=== PATIENT | female | born 1945 | race Caucasian/White ===

== ENCOUNTER → 2017-04-02 09:41 | Outpatient (CLI) | payer MEDICARE, OTHER, SELFPAY ==
--- NOTE | 2017-04-02 09:46 | HPBD_ITS ---
STUDY: DUAL ENERGY X-RAY ABSORPTIOMETRY / DXA REASON FOR EXAM: Female, 71 years old. Postmenopausal. Loss of height. TECHNIQUE: Bone Mineral Density (BMD) measurements of lumbar spine and bilateral hips were obtained. COMPARISON: None. FINDINGS: Lumbar Spine (L1-L4): g/cm2 (1.280) / T-score (1.0) / Z-score (2.6) Findings are suggestive of normal bone density with a low fracture risk. Increased kyphosis. Left Femur Total: g/cm2 (1.065) / T-score (0.5) / Z-score (1.9) Left Femoral Neck: g/cm2 (0.946) / T-score (-0.7) / Z-score (1.0) Right Femur Total: g/cm2 (1.074) / T-score (0.5) / Z-score (2.0) Right Femoral Neck: g/cm2 (0.911) / T-score (-0.9) / Z-score (0.8) HPBD/Dexa Bone Density Study (HP) IMPRESSION: The patient is considered normal as outlined below according to World Sark[employer] Organization (WHO) criteria with a low fracture risk. Reference Information: The T-score is the number of standard deviations above or below the standard which is normal for young adults at their peak bone mineral density. The World Health Organization (WHO) interprets the T-scores as follows: Above -1 Normal bone density Between -1 and -2.5 Osteopenia Equal to / or below -2.5 Osteoporosis As a practical clinical guideline, osteopenia may be graded as follows: Mild -1 through -1.5 Moderate -1.6 through -2.0 Severe -2.1 through -2.4 The Z-score is the number of standard deviations above or below age-matched controls. A Z-score of less than -1.5 would be considered abnormal. References: 1. NIH Osteoporosis and Related Bone Diseases http://www.osteo.org 2. International Society for Clinical Densitometry http://www.iscd.org 3. National Osteoporosis Foundation http://www.nof.org Electronically Signed: Jj Unger MD at 12:08 EST Tel [phone], Service support ,
--- NOTE | 2017-04-02 09:47 | HPBI_ITS ---
MAMMOGRAPHY - BILATERAL SCREENING REASON FOR EXAM: Female, 71 years old. Routine annual screening examination. PERTINENT HISTORY: Mother with breast cancer. TECHNIQUE: Digital bilateral breast spring (3D mammographic acquisition) in the CC and MLO projections. 2-D mediolateral oblique (MLO) and craniocaudad (CC) views of both breasts were obtained. CAD: Full Field Digital Mammography with Computer Added Detection was performed. COMPARISON: Comparison is made with prior outside examination dated February 14, 2015. FINDINGS: Breast Composition: The breasts are heterogeneously dense, which may obscure small masses. There are no dominant masses or suspicious calcifications. No other significant abnormalities are identified. There has been no significant change since the prior study. HPBI/SCREENING MAMM (CAD), BILAT IMPRESSION: Stable bilateral screening mammogram. Yearly follow-up mammogram recommended. (A) ASSESSMENT CATEGORY: BIRADS Category 1: Negative. A letter regarding these results will be sent to the patient by the facility within 30 days. Approximately 10% of breast cancers are not detected by mammography. A normal mammogram should not delay biopsy of a clinically suspicious abnormality. [id number] Electronically Signed: Jj Unger MD at 10:36 EST Tel [phone], Service support ,
== END ==
PROVIDERS: PCP Internal Medicine; Visit Provider Internal Medicine
DX: Z12.31 Encounter for screening mammogram for malignant neoplasm of breast (principal); Z78.0 Asymptomatic menopausal state
CPT/HCPCS: 77063; 77067; 77080

== ENCOUNTER → 2017-06-18 12:31 | Outpatient (CLI) | payer MEDICARE, OTHER, SELFPAY ==
[2017-06-18 13:28] LABS: AST(SGOT) 16 U/L (15-37); Alanine Aminotransfer ALT/SGPT 28 U/L (13-56); Albumin, Serum 3.8 g/dL (3.2-5.0); Alkaline Phosphatase 75 U/L (45-117); Bilirubin, Direct 0.12 mg/dL (0.00-0.30); Cholesterol 186 mg/dL (200); Globulin 3.9 g/dL (2.2-4.2); High Density Lipoprotein 71 mg/dL; Protein, Total 7.7 g/dL (6.4-8.2); Triglycerides 76 mg/dL; Very Low Density Lipoprotein 15 mg/dL (5-40)
[2017-06-18 13:45] LABS: Free T3 2.7 pg/mL (2.18-3.98); T4 Free Direct 1.19 ng/dL (0.76-1.46); Thyroid Stim Hormone (TSH) 3.12 uIU/mL (0.358-3.74)
== END ==
PROVIDERS: Nurse Practitioner; Family Provider Internal Medicine; PCP Internal Medicine; Visit Provider Internal Medicine Cardiovascular Disease
DX: R94.6 Abnormal results of thyroid function studies (principal); Z79.899 Other long term (current) drug therapy; E78.5 Hyperlipidemia, unspecified
CPT/HCPCS: 36415; 80061; 80076; 84439; 84443; 84481

== ENCOUNTER → 2017-11-03 06:28 | Outpatient (CLI) | payer MEDICARE, OTHER, SELFPAY ==
[2017-11-03 07:50] LABS: Hemoglobin A1c 6.8 % (4.2-6.3)
[2017-11-03 07:59] LABS: Microalbumin,Random Urine 9.9 mg/L (NO RANGE EST.); Microalbumin:Creatinine Ratio 6.1 mg/g CRE (<30 mg/g CRE)
[2017-11-03 08:01] LABS: AST(SGOT) 16 U/L (15-37); Alanine Aminotransfer ALT/SGPT 29 U/L (13-56); Albumin, Serum 3.7 g/dL (3.2-5.0); Alkaline Phosphatase 78 U/L (45-117); Anion Gap 8 (5-15); BUN 21 mg/dL (7-18); BUN/Creat Ratio 23.4 RATIO (10-20); CRP < 2.90 mg/L (0.0-3.0); Calcium,Total 9.2 mg/dL (8.5-10.1); Chloride 103 mmol/L (98-107); Cholesterol 194 mg/dL (200); EST Glomerular Filtration Rate 66 mL/min (>60); Est Glom Filt Rate - Afr Amer 80 mL/min (>60); Globulin 3.8 g/dL (2.2-4.2); Glucose 192 mg/dL (74-106); High Density Lipoprotein 70 mg/dL; Magnesium 2.3 mg/dL (1.6-2.6); Potassium 4.2 mmol/L (3.5-5.1); Protein, Total 7.5 g/dL (6.4-8.2); Sodium Level 140 mmol/L (136-145); Triglycerides 90 mg/dL; Very Low Density Lipoprotein 18 mg/dL (5-40)
[2017-11-03 08:10] LABS: Vitamin D,25 Hydroxy 19.6 ng/mL (29.95-100.01)
== END ==
PROVIDERS: Family Provider Internal Medicine; PCP Internal Medicine; Visit Provider Nurse Practitioner
DX: E11.9 Type 2 diabetes mellitus without complications (principal); I10 Essential (primary) hypertension; R00.2 Palpitations; E55.9 Vitamin D deficiency, unspecified
CPT/HCPCS: 36415; 80053; 80061; 82043; 82306; 82570; 83036; 83735; 86140

== ENCOUNTER → 2018-04-05 14:32 | Outpatient (CLI) | payer MEDICARE, OTHER, SELFPAY ==
[2018-02-23 13:31] VITALS: BMI 25.9
--- NOTE | 2018-04-05 14:37 | BI_ITS ---
MAMMOGRAPHY - BILATERAL SCREENING REASON FOR EXAM: Female, 72 years old. Routine annual screening examination. PERTINENT HISTORY: Mother with breast cancer. TECHNIQUE: Digital bilateral breast spring (3D mammographic acquisition) in the CC and MLO projections. 2-D mediolateral oblique (MLO) and craniocaudad (CC) views of both breasts were obtained. CAD: Full Field Digital Mammography with Computer Added Detection was performed. COMPARISON: Comparison is made with prior study dated April 02, 2017. FINDINGS: Breast Composition: The breasts are extremely dense, which lowers the sensitivity of mammography. There are no dominant masses or suspicious calcifications. No other significant abnormalities are identified. There has been no significant change since the prior study. BI/SCREENING MAMM (CAD), BILAT IMPRESSION: Stable bilateral screening mammogram. Yearly follow-up mammogram recommended. (A) ASSESSMENT CATEGORY: BIRADS Category 1: Negative. A letter regarding these results will be sent to the patient by the facility within 30 days. Approximately 10% of breast cancers are not detected by mammography. A normal mammogram should not delay biopsy of a clinically suspicious abnormality. [id number] Electronically Signed: Jj Unger MD at 8:13 EST , Service support ,
== END ==
PROVIDERS: Family Provider Internal Medicine; PCP Internal Medicine; Visit Provider Internal Medicine
DX: Z12.31 Encounter for screening mammogram for malignant neoplasm of breast (principal)
CPT/HCPCS: 77063; 77067

== ENCOUNTER → 2018-06-03 10:05 | Outpatient (CLI) | payer MEDICARE, OTHER, SELFPAY ==
[2018-05-25 14:24] VITALS: BMI 11.4
[2018-06-03 10:59] LABS: Anion Gap 5 (5-15); BUN 16 mg/dL (7-18); Chloride 104 mmol/L (98-107); Creatinine, Serum 0.89 mg/dL (0.55-1.02); EST Glomerular Filtration Rate 66 mL/min (>60); Est Glom Filt Rate - Afr Amer 80 mL/min (>60); Glucose 206 mg/dL (74-106); Sodium Level 138 mmol/L (136-145)
[2018-06-03 11:01] LABS: Microalbumin,Random Urine 21.2 mg/L (NO RANGE EST.); Microalbumin:Creatinine Ratio 10.9 mg/g CRE (<30 mg/g CRE)
[2018-06-03 11:10] LABS: Hemoglobin A1c 8.5 % (4.2-6.3)
== END ==
PROVIDERS: Family Provider Internal Medicine; PCP Internal Medicine; Referring Provider Internal Medicine; Visit Provider Internal Medicine
DX: E11.9 Type 2 diabetes mellitus without complications (principal); I10 Essential (primary) hypertension
CPT/HCPCS: 36415; 80048; 82043; 82570; 83036

== ENCOUNTER → 2018-12-31 08:03 | Outpatient (CLI) | payer MEDICARE, OTHER, SELFPAY ==
[2018-12-27 13:05] VITALS: BMI 11.4
[2018-12-31 12:32] LABS: Absolute Lymphocyte Count 1.96 X10^3/uL (0.83-4.51); Absolute Neutrophil Count 3.3 X10^3/uL (2.0-7.7); Basophil# 0.03 X10^3/uL; Basophil% 0.5 % (0-1); Eosinophil# 0.05 X10^3/uL; Eosinophils% 0.8 % (0-5); Hematocrit 43.4 % (37-47); Hemoglobin 13.5 g/dL (12.0-15.0); Lymphocyte # 1.96 X10^3/ul (4.0); Mean Corp Hgb Conc 31.1 g/dL (32-36); Mean Corpuscular Hgb 28.1 pg (27.0-32.0); Mean Corpuscular Volume 90.2 fL (81-99); Mean Platelet Vol. 11.7 fl (6.2-12.0); Monocyte# 0.55 X10^3/uL; Monocyte% 9.3 % (0-10); NRBC Flagged by Analyzer 0 % (0-5); Neutrophil # 3.34 X10^3/uL (2.7-7.7); Neutrophil % 56.2 % (47-70); Platelet Count 180 K/mm3 (150-450); RBC Distribution Width CV 13.2 % (11.6-14.6); RBC Distribution Width SD 43.8 fl (35.1-43.9); Red Blood Count 4.81 M/mm3 (4.2-5.4); White Blood Count 5.9 K/mm3 (4.4-11.0)
[2018-12-31 12:35] LABS: ALB/GLOB Ratio 0.9 RATIO (0.9-2.4); AST(SGOT) 20 U/L (15-37); Alanine Aminotransfer ALT/SGPT 38 U/L (13-56); Albumin, Serum 3.6 g/dL (3.2-5.0); Alkaline Phosphatase 92 U/L (45-117); Anion Gap 8 (5-15); BUN 20 mg/dL (7-18); BUN/Creat Ratio 21.8 RATIO (10-20); Calcium,Total 9.3 mg/dL (8.5-10.1); Chloride 105 mmol/L (98-107); Cholesterol 174 mg/dL (200); Creatinine, Serum 0.92 mg/dL (0.55-1.02); EST Glomerular Filtration Rate 64 mL/min (>60); Est Glom Filt Rate - Afr Amer 78 mL/min (>60); Globulin 3.8 g/dL (2.2-4.2); Glucose 110 mg/dL (74-106); High Density Lipoprotein 70 mg/dL; Potassium 3.7 mmol/L (3.5-5.1); Protein, Total 7.4 g/dL (6.4-8.2); Sodium Level 139 mmol/L (136-145); Triglycerides 59 mg/dL; Very Low Density Lipoprotein 12 mg/dL (5-40)
[2018-12-31 12:37] LABS: Vitamin D,25 Hydroxy 10.8 ng/mL (29.95-100.01)
== END ==
PROVIDERS: Family Provider Internal Medicine; PCP Internal Medicine; Visit Provider Internal Medicine
DX: E11.9 Type 2 diabetes mellitus without complications (principal); K21.9 Gastro-esophageal reflux disease without esophagitis; E55.9 Vitamin D deficiency, unspecified
CPT/HCPCS: 36415; 80053; 80061; 82306; 85025

== ENCOUNTER → 2019-01-03 12:53 | Outpatient (CLI) | payer MEDICARE, OTHER, SELFPAY ==
[2018-12-27 13:05] VITALS: BMI 11.4
[2019-01-03 13:41] LABS: Microalbumin,Random Urine < 5.0 mg/L (NO RANGE EST.)
== END ==
PROVIDERS: Family Provider Internal Medicine; PCP Internal Medicine; Referring Provider Internal Medicine; Visit Provider Internal Medicine
DX: E11.9 Type 2 diabetes mellitus without complications (principal)
CPT/HCPCS: 82043; 82570

== ENCOUNTER → 2019-12-14 08:49 | Outpatient (CLI) | payer MEDICARE, OTHER, SELFPAY ==
[2019-12-08 13:53] VITALS: BMI 24.7
[2019-12-14 12:30] LABS: Absolute Lymphocyte Count 2.11 X10^3/uL (0.83-4.51); Absolute Neutrophil Count 2.9 X10^3/uL (2.0-7.7); Basophil# 0.02 X10^3/uL; Basophil% 0.4 % (0-1); Eosinophil# 0.07 X10^3/uL; Eosinophils% 1.2 % (0-5); Hematocrit 42.7 % (37-47); Hemoglobin 13.8 g/dL (12.0-15.0); Lymphocyte # 2.11 X10^3/ul (4.0); Lymphocyte % 37.3 % (19-41); Mean Corp Hgb Conc 32.3 g/dL (32-36); Mean Corpuscular Hgb 29.2 pg (27.0-32.0); Mean Corpuscular Volume 90.5 fL (81-99); Mean Platelet Vol. 11.5 fl (6.2-12.0); Monocyte# 0.51 X10^3/uL; NRBC Flagged by Analyzer 0 % (0-5); Neutrophil # 2.92 X10^3/uL (2.7-7.7); Neutrophil % 51.7 % (47-70); Platelet Count 198 K/mm3 (150-450); RBC Distribution Width CV 12.8 % (11.6-14.6); RBC Distribution Width SD 42.5 fl (35.1-43.9); Red Blood Count 4.72 M/mm3 (4.2-5.4); White Blood Count 5.7 K/mm3 (4.4-11.0)
[2019-12-14 12:48] LABS: Vitamin D,25 Hydroxy 93.4 ng/mL
[2019-12-14 13:05] LABS: ALB/GLOB Ratio 0.9 RATIO (0.9-2.4); AST(SGOT) 14 U/L (15-37); Alanine Aminotransfer ALT/SGPT 25 U/L (13-56); Albumin, Serum 3.6 g/dL (3.2-5.0); Alkaline Phosphatase 90 U/L (45-117); Anion Gap 5 (5-15); BUN 20 mg/dL (7-18); Calcium,Total 9.3 mg/dL (8.5-10.1); Chloride 107 mmol/L (98-107); Cholesterol 189 mg/dL (200); Creatinine, Serum 0.95 mg/dL (0.55-1.02); EST Glomerular Filtration Rate 61 mL/min (>60); Est Glom Filt Rate - Afr Amer 74 mL/min (>60); Globulin 3.9 g/dL (2.2-4.2); Glucose 104 mg/dL (74-106); High Density Lipoprotein 72 mg/dL; Potassium 3.9 mmol/L (3.5-5.1); Protein, Total 7.5 g/dL (6.4-8.2); Sodium Level 138 mmol/L (136-145); Triglycerides 70 mg/dL; Very Low Density Lipoprotein 14 mg/dL (5-40)
[2019-12-14 20:21] LABS: Microalbumin,Random Urine 7.6 mg/L (NO RANGE EST.); Microalbumin:Creatinine Ratio 5.5 mg/g CRE (<30 mg/g CRE)
== END ==
PROVIDERS: PCP Internal Medicine; Referring Provider Internal Medicine; Visit Provider Internal Medicine
DX: E11.9 Type 2 diabetes mellitus without complications (principal); K21.9 Gastro-esophageal reflux disease without esophagitis; E55.9 Vitamin D deficiency, unspecified
CPT/HCPCS: 36415; 80053; 80061; 82043; 82306; 82570; 85025

== ENCOUNTER → 2019-12-19 15:07 | Outpatient (CLI) | payer MEDICARE, OTHER, SELFPAY ==
[2019-12-08 13:53] VITALS: BMI 24.7
--- NOTE | 2019-12-19 15:40 | CT_ITS ---
STUDY: CT ABDOMEN AND PELVIS WITH CONTRAST REASON FOR EXAM: Female, 74 years old. Left lower quadrant pain. Previous diverticulitis status post partial sigmoidectomy. RADIATION DOSAGE (If Supplied By Facility): CTDIvol = ( 11.35 ) mGy, DLP = ( 623.92 ) mGycm TECHNIQUE: Transaxial images were obtained from the dome of the diaphragm to the symphysis pubis without oral contrast. Oral and amp; IV Gastrografin and amp; 100mL Isovue-370 was administered. Sagittal and coronal images were reconstructed. Individualized dose optimization techniques were used for this CT. COMPARISON: None. FINDINGS: The visualized lung bases are unremarkable. The visualized portions of the heart are within normal limits. Normal liver with incidental 3.5 cm cyst of the anterior segment of the right hepatic lobe.. Normal gallbladder and extrahepatic biliary system. Normal spleen. Normal pancreas. Normal bilateral adrenal glands. Normal right kidney. Normal left kidney. Evaluation of the GI tract is limited by absence of oral contrast. Cannot exclude stomach wall thickening. No dilated loops of bowel or evidence for obstruction. Cannot exclude segmental thickening of the kim of the small or large bowel. Cannot exclude enteritis or colitis. Moderate diffuse fecal retention. There has been appendectomy. There has been partial resection of the sigmoid. There is diffuse atherosclerotic calcification of the abdominal aorta with elongation and tortuosity, but without a demonstrated aneurysm. Normal inferior vena cava. Normal retroperitoneum. Normal urinary bladder. There is atrophy of the uterus. Normal abdominal wall. There are diffuse degenerative changes of the visualized lumbar spine. Mild levoconvex scoliosis. CT/Abdomen/Pelvis WITH Contrast IMPRESSION: No definite acute or significant abnormality seen. Electronically Signed: Ramone Cruz MD at 18:00 EST , Service support ,
== END ==
PROVIDERS: PCP Internal Medicine; Referring Provider Internal Medicine; Visit Provider Internal Medicine
DX: K56.699 Other intestinal obstruction unspecified as to partial versus complete obstruction (principal); K57.92 Diverticulitis of intestine, part unspecified, without perforation or abscess without bleeding; R10.32 Left lower quadrant pain
CPT/HCPCS: 74177; Q9967

== ENCOUNTER → 2020-12-03 11:44 | Outpatient (CLI) | payer MEDICARE, OTHER, SELFPAY ==
[2020-12-03 15:14] LABS: Absolute Lymphocyte Count 2.17 X10^3/uL (0.83-4.51); Absolute Neutrophil Count 2.7 X10^3/uL (2.0-7.7); Basophil# 0.02 X10^3/uL; Basophil% 0.4 % (0-1); Eosinophil# 0.09 X10^3/uL; Eosinophils% 1.7 % (0-5); Hematocrit 42.9 % (37-47); Hemoglobin 13.7 g/dL (12.0-15.0); Lymphocyte # 2.17 X10^3/ul (0.83-4.51); Lymphocyte % 39.8 % (19-41); Mean Corp Hgb Conc 31.9 g/dL (32-36); Mean Corpuscular Hgb 29.1 pg (27.0-32.0); Mean Corpuscular Volume 91.3 fL (81-99); Mean Platelet Vol. 11.1 fl (6.2-12.0); Monocyte# 0.43 X10^3/uL; Monocyte% 7.9 % (0-10); NRBC Flagged by Analyzer 0 % (0-5); Neutrophil # 2.72 X10^3/uL (2.7-7.7); Neutrophil % 49.8 % (47-70); Platelet Count 206 K/mm3 (150-450); RBC Distribution Width CV 13.1 % (11.6-14.6); RBC Distribution Width SD 44.2 fl (35.1-43.9); White Blood Count 5.5 K/mm3 (4.4-11.0)
[2020-12-03 15:32] LABS: ALB/GLOB Ratio 0.8 RATIO (0.9-2.4); AST(SGOT) 16 U/L (15-37); Alanine Aminotransfer ALT/SGPT 30 U/L (13-56); Albumin, Serum 3.3 g/dL (3.2-5.0); Alkaline Phosphatase 86 U/L (45-117); Anion Gap 9 (5-15); BUN 18 mg/dL (7-18); Chloride 104 mmol/L (98-107); Cholesterol 202 mg/dL (200); EST Glomerular Filtration Rate 65 mL/min (>60); Est Glom Filt Rate - Afr Amer 79 mL/min (>60); Globulin 4.1 g/dL (2.2-4.2); Glucose 138 mg/dL (74-106); High Density Lipoprotein 72 mg/dL; Potassium 3.9 mmol/L (3.5-5.1); Protein, Total 7.4 g/dL (6.4-8.2); Sodium Level 140 mmol/L (136-145); Triglycerides 117 mg/dL; Very Low Density Lipoprotein 23 mg/dL (5-40)
[2020-12-03 15:34] LABS: Hemoglobin A1c 7.5 % (3.8-5.6)
== END ==
PROVIDERS: PCP Internal Medicine; Referring Provider Internal Medicine; Visit Provider Internal Medicine
DX: E11.9 Type 2 diabetes mellitus without complications (principal); I10 Essential (primary) hypertension; E55.9 Vitamin D deficiency, unspecified
CPT/HCPCS: 36415; 80053; 80061; 82306; 83036; 85025

== ENCOUNTER → 2020-12-04 | Outpatient (CLI) | payer MEDICARE, OTHER, SELFPAY ==
[2020-12-04 15:51] LABS: Microalbumin,Random Urine 8.8 mg/L (NO RANGE EST.); Microalbumin:Creatinine Ratio 6.7 mg/g CRE (<30 mg/g CRE)
== END | disposition home or self-care (01) ==
LOC: LABSPEC 14:23
PROVIDERS: PCP Internal Medicine; Referring Provider Internal Medicine; Visit Provider Internal Medicine
DX: E11.9 Type 2 diabetes mellitus without complications (principal)
CPT/HCPCS: 82043; 82570

== ENCOUNTER 2021-05-22 14:42 | Outpatient (CLI) | payer MEDICARE, OTHER, SELFPAY ==
[2021-05-22 16:56] LABS: AST(SGOT) 16 U/L (15-37); Alanine Aminotransfer ALT/SGPT 39 U/L (13-56); Albumin, Serum 3.7 g/dL (3.2-5.0); Alkaline Phosphatase 105 U/L (45-117); Amylase 49 U/L (25-115); Anion Gap 3 (5-15); BUN 21 mg/dL (7-18); BUN/Creat Ratio 11.2 RATIO (10-20); Calcium,Total 9.3 mg/dL (8.5-10.1); Chloride 104 mmol/L (98-107); Creatinine, Serum 1.87 mg/dL (0.55-1.02); EST Glomerular Filtration Rate 28 mL/min (>60); Est Glom Filt Rate - Afr Amer 34 mL/min (>60); Globulin 3.8 g/dL (2.2-4.2); Glucose 258 mg/dL (74-106); Lipase 148 U/L (73-393); Potassium 4.3 mmol/L (3.5-5.1); Protein, Total 7.5 g/dL (6.4-8.2); Sodium Level 136 mmol/L (136-145)
== END 2021-05-22 23:59 | disposition home or self-care (01) ==
LOC: BIMLAB 14:43
PROVIDERS: PCP Internal Medicine; Referring Provider Internal Medicine; Visit Provider Internal Medicine
DX: R10.9 Unspecified abdominal pain (principal)
CPT/HCPCS: 36415; 80053; 82150; 83690

== ENCOUNTER 2021-05-27 11:14 | Outpatient (CLI) | payer MEDICARE, OTHER, SELFPAY ==
[2021-05-27 11:17] LABS: Red Blood Cells-Urine 0 SEEN /hpf (0-5)
[2021-05-27 13:03] LABS: Anion Gap 9 (5-15); BUN 24 mg/dL (7-18); BUN/Creat Ratio 29.5 RATIO (10-20); Calcium,Total 9.3 mg/dL (8.5-10.1); Chloride 106 mmol/L (98-107); Creatinine, Serum 0.81 mg/dL (0.55-1.02); EST Glomerular Filtration Rate 73 mL/min (>60); Est Glom Filt Rate - Afr Amer 88 mL/min (>60); Glucose 171 mg/dL (74-106); Potassium 3.9 mmol/L (3.5-5.1); Sodium Level 138 mmol/L (136-145)
[2021-05-27 15:20] LABS: Color, Urine Yellow (Yellow); Glucose, Dipstick Normal (Normal); Ketone-Dipstick 50 mg/dl (Negative); Leukocyte Esterase-Dipstick Negative /ul (Negative); Nitrite-Dipstick Negative (Negative); Occult Blood-Urine Negative /ul (Negative); Protein-Dipstick Negative (Negative); Urine Bilirubin Dipstick Negative (Negative); Urine Clarity Clear (Clear); Urine Urobilinogen Normal (Normal)
[2021-05-27 15:47] LABS: Bacteria RARE /hpf (None Seen); Mucous, Urine RARE /hpf (<or=2+); Squamous Epithelial Cells - UA 0-5 SEEN /hpf (5-10); White Blood Cells 0-5 SEEN /hpf (0-5)
== END 2021-05-27 23:59 | disposition home or self-care (01) ==
LOC: BIMLAB 11:16
PROVIDERS: PCP Internal Medicine; Visit Provider Internal Medicine
DX: N17.9 Acute kidney failure, unspecified (principal)
CPT/HCPCS: 36415; 80048; 81001

== ENCOUNTER → 2021-06-26 | Outpatient (CLI) | payer MEDICARE, OTHER, SELFPAY ==
--- NOTE | 2021-06-26 12:54 | CDU_ITS ---
Reason For Study: carotid artery disease Rt. Velocities/BP Lt. Velocities/BP Prox CCA 76.0/10.8 cm/sec. Prox CCA 91.5/14.6 cm/sec. Mid CCA 82.6/17.3 cm/sec. Mid CCA 88.2/17.9 cm/sec. Dist CCA 82.6/20.0 cm/sec. Dist CCA 67.3/14.6 cm/sec. Prox ICA 76.0/14.7 cm/sec. Prox ICA 88.2/24.5 cm/sec. Mid ICA 68.2/14.7 cm/sec. Mid ICA 81.6/20.14 cm/sec. Dist ICA 83.8/25.2 cm/sec. Dist ICA 113.9/27.1 cm/sec. Rt. ICA/CCA = 1.0. Lt. ICA/CCA = 1.3. Prox ECA 79.9/8.2 cm/sec. Prox ECA 92.6/8.0 cm/sec. Rt. Vert. 36.2/9.7 cm/sec. Lt. Vert. 58.1/13.7 cm/sec. Right Extracranial There is intimal thickening but no significant atherosclerotic plaque noted in the right common carotid artery. There is homogeneous, smooth atherosclerotic plaque noted in the right internal carotid artery. There is intimal thickening but no significant atherosclerotic plaque noted in the right external carotid artery. Antegrade flow is noted in the right vertebral artery. There is homogeneous, smooth atherosclerotic plaque noted in the left bulb. Left Extracranial There is intimal thickening but no significant atherosclerotic plaque noted in the left common carotid artery. There is heterogeneous, irregular atherosclerotic plaque noted in the left internal carotid artery. There is intimal thickening but no significant atherosclerotic plaque noted in the left external carotid artery. Antegrade flow is noted in the left vertebral artery. There is heterogeneous, irregular atherosclerotic plaque noted in the left bulb. Procedure Carotid Duplex [id number]. This is a Carotid Duplex examination using B-mode, color flow and specral Doppler. The exam was diagnostic. Exam performed in department. VL/Carotid Duplex Ultrasound Interpretation Summary Smooth plaque at the proximal right internal carotid artery with less than 50% stenosis Less than 50% stenosis right external carotid artery Minimal irregular calcific plaque with shadowing at the proximal left internal carotid artery with less than 50% stenosis Less than 50% stenosis left external carotid artery Irregular calcific plaque noted in the left carotid bulb Patent and antegrade vertebral arteries bilaterally Ordering Physician: Evan Masters Performed By: Tristan Diaz RVT
== END | disposition home or self-care (01) ==
LOC: CVS 12:54
PROVIDERS: PCP Internal Medicine; Referring Provider Nurse Practitioner Family; Visit Provider Nurse Practitioner Family
DX: I77.9 Disorder of arteries and arterioles, unspecified (principal); I79.8 Other disorders of arteries, arterioles and capillaries in diseases classified elsewhere
CPT/HCPCS: 93880

== ENCOUNTER → 2021-09-10 | Outpatient (CLI) | payer MEDICARE, OTHER, SELFPAY ==
--- NOTE | 2021-09-10 15:28 | BI_ITS ---
MAMMOGRAPHY - BILATERAL SCREENING REASON FOR EXAM: Female, 75 years old. Routine annual screening examination. PERTINENT HISTORY: Mother with breast cancer. Remote right excisional breast biopsy. TECHNIQUE: Digital bilateral breast simona (3D mammographic acquisition) in the CC and MLO projections. 2-D mediolateral oblique (MLO) and craniocaudad (CC) views of both breasts were obtained. CAD: Full Field Digital Mammography with Computer Added Detection was performed. COMPARISON: Comparison is made with prior outside examination of 11/03/2019 and 04/02/2017. FINDINGS: Breast Composition: The breasts are extremely dense, which lowers the sensitivity of mammography. There are no dominant masses or suspicious calcifications. No other significant abnormalities are identified. There has been no significant change since the prior study. BI/SCRN MAMM (CAD)W/SIMONA BILAT IMPRESSION: Stable bilateral screening mammogram. Yearly follow-up mammogram recommended. (A) ASSESSMENT CATEGORY: BIRADS Category 1: Negative. A letter regarding these results will be sent to the patient by the facility within 30 days. Approximately 10% of breast cancers are not detected by mammography. A normal mammogram should not delay biopsy of a clinically suspicious abnormality. [id number] Electronically Signed: Jj Unger MD at 13:01 EDT ,
--- NOTE | 2021-09-10 15:30 | BD_ITS ---
STUDY: DUAL ENERGY X-RAY ABSORPTIOMETRY / DXA REASON FOR EXAM: Female, 75 years old. Post menopausal TECHNIQUE: Bone Mineral Density (BMD) measurements of lumbar spine and bilateral hips were obtained. COMPARISON: Comparison is made with prior study of 04/02/2017. FINDINGS: Lumbar Spine (L1-L4): g/cm2 (1.227) / T-score (1.6) / Z-score (4.0) Findings are suggestive of normal bone density with a low fracture risk. Left Femur Total: g/cm2 (0.949) / T-score (0.1) / Z-score (1.8) Left Femoral Neck: g/cm2 (0.701) / T-score (-1.3) / Z-score (0.7) Right Femur Total: g/cm2 (0.966) / T-score (0.2) / Z-score (2.0) Right Femoral Neck: g/cm2 (0.757) / T-score (-0.8) / Z-score (1.2) The T-Scores on the most recent prior examination were: Lumbar Spine (L1-L4): There has been worsening of bone density since the previous examination. Left Femur Total: which represents a worsening of 4.8%. Right Femur Total: which represents a worsening of 3.9%. BD/Dexa Bone Density Study IMPRESSION: The patient is considered osteopenic as outlined below according to World Sarkis Organization (WHO) criteria with a low fracture risk. There has been worsening of bone density since the previous examination. Reference Information: The T-score is the number of standard deviations above or below the standard which is normal for young adults at their peak bone mineral density. The World Health Organization (WHO) interprets the T-scores as follows: Above -1 Normal bone density Between -1 and -2.5 Osteopenia Equal to / or below -2.5 Osteoporosis As a practical clinical guideline, osteopenia may be graded as follows: Mild -1 through -1.5 Moderate -1.6 through -2.0 Severe -2.1 through -2.4 The Z-score is the number of standard deviations above or below age-matched controls. A Z-score of less than -1.5 would be considered abnormal. References: 1. NIH Osteoporosis and Related Bone Diseases www osteo.org 2. International Society for Clinical Densitometry www iscd.org 3. National Osteoporosis Foundation www nof.org Electronically Signed: Jj Unger MD at 10:19 EDT ,
== END | disposition home or self-care (01) ==
LOC: OPBD 15:26
PROVIDERS: PCP Internal Medicine; Referring Provider Internal Medicine; Visit Provider Internal Medicine
DX: Z12.31 Encounter for screening mammogram for malignant neoplasm of breast (principal); M85.80 Other specified disorders of bone density and structure, unspecified site; Z78.0 Asymptomatic menopausal state; Z80.3 Family history of malignant neoplasm of breast
CPT/HCPCS: 77063; 77067; 77080

== ENCOUNTER 2022-01-03 08:13 | Outpatient (CLI) | payer MEDICARE, OTHER, SELFPAY ==
[2022-01-03 12:29] LABS: Absolute Lymphocyte Count 1.94 X10^3/uL (0.83-4.51); Absolute Neutrophil Count 4.1 X10^3/uL (2.0-7.7); Basophil# 0.02 X10^3/uL; Basophil% 0.3 % (0-1); Eosinophil# 0.06 X10^3/uL; Eosinophils% 0.9 % (0-5); Hematocrit 43.2 % (37-47); Lymphocyte # 1.94 X10^3/ul (0.83-4.51); Lymphocyte % 29.1 % (19-41); Mean Corp Hgb Conc 32.4 g/dL (32-36); Mean Corpuscular Hgb 29.4 pg (27.0-32.0); Mean Corpuscular Volume 90.8 fL (81-99); Mean Platelet Vol. 11.3 fl (6.2-12.0); Monocyte# 0.53 X10^3/uL; Monocyte% 7.9 % (0-10); NRBC Flagged by Analyzer 0 % (0-5); Neutrophil # 4.11 X10^3/uL (2.7-7.7); Neutrophil % 61.7 % (47-70); Platelet Count 211 K/mm3 (150-450); RBC Distribution Width CV 13.1 % (11.6-14.6); RBC Distribution Width SD 43.9 fl (35.1-43.9); Red Blood Count 4.76 M/mm3 (4.2-5.4); White Blood Count 6.7 K/mm3 (4.4-11.0)
[2022-01-03 12:52] LABS: Microalbumin:Creatinine Ratio 7.8 mg/g CRE (<30 mg/g CRE)
[2022-01-03 12:53] LABS: AST(SGOT) 16 U/L (15-37); Alanine Aminotransfer ALT/SGPT 34 U/L (13-56); Albumin, Serum 3.7 g/dL (3.2-5.0); Alkaline Phosphatase 92 U/L (45-117); Anion Gap 6 (5-15); BUN 23 mg/dL (7-18); BUN/Creat Ratio 27.4 RATIO (10-20); Calcium,Total 9.2 mg/dL (8.5-10.1); Chloride 103 mmol/L (98-107); Cholesterol 182 mg/dL (200); Creatinine, Serum 0.84 mg/dL (0.55-1.02); EST Glomerular Filtration Rate 70 mL/min (>60); Est Glom Filt Rate - Afr Amer 85 mL/min (>60); Globulin 3.8 g/dL (2.2-4.2); Glucose 127 mg/dL (74-106); High Density Lipoprotein 80 mg/dL; Potassium 3.7 mmol/L (3.5-5.1); Protein, Total 7.5 g/dL (6.4-8.2); Sodium Level 137 mmol/L (136-145); Triglycerides 72 mg/dL; Very Low Density Lipoprotein 14 mg/dL (5-40)
[2022-01-07 13:11] LABS: Hemoglobin A1c 7.3 % (3.8-5.6)
== END 2022-01-03 23:59 | disposition home or self-care (01) ==
LOC: BIMLAB 08:14
PROVIDERS: PCP Internal Medicine; Visit Provider Internal Medicine
DX: I10 Essential (primary) hypertension (principal); E11.69 Type 2 diabetes mellitus with other specified complication
CPT/HCPCS: 36415; 80053; 80061; 82043; 82570; 83036; 85025

== ENCOUNTER → 2022-09-11 | Outpatient (CLI) | payer MEDICARE, OTHER, SELFPAY ==
--- NOTE | 2022-09-11 13:02 | BI_ITS ---
MAMMOGRAPHY - BILATERAL SCREENING REASON FOR EXAM: Female, 76 years old. Routine annual screening examination. PERTINENT HISTORY: Mother with breast cancer. TECHNIQUE: Digital bilateral breast simona (3D mammographic acquisition) in the CC and MLO projections. 2-D mediolateral oblique (MLO) and craniocaudad (CC) views of both breasts were obtained. CAD: Full Field Digital Mammography with Computer Added Detection was performed. COMPARISON: Comparison is made with prior study September 10, 2021 and April 05, 2018. FINDINGS: Breast Composition: The breasts are extremely dense, which lowers the sensitivity of mammography. There are no dominant masses or suspicious calcifications. No other significant abnormalities are identified. There has been no significant change since the prior study. BI/SCRN MAMM (CAD)W/SIMONA BILAT IMPRESSION: Stable bilateral screening mammogram. Yearly follow-up mammogram recommended. (A) ASSESSMENT CATEGORY: BIRADS Category 1: Negative. A letter regarding these results will be sent to the patient by the facility within 30 days. Approximately 10% of breast cancers are not detected by mammography. A normal mammogram should not delay biopsy of a clinically suspicious abnormality. [id number] Electronically Signed: Jj Unger MD at 14:19 EDT ,
== END | disposition home or self-care (01) ==
LOC: OPBI 13:01
PROVIDERS: PCP Internal Medicine; Referring Provider Internal Medicine; Visit Provider Internal Medicine
DX: Z12.31 Encounter for screening mammogram for malignant neoplasm of breast (principal); Z80.3 Family history of malignant neoplasm of breast
CPT/HCPCS: 77063; 77067

== ENCOUNTER → 2022-12-30 | Outpatient (CLI) | payer MEDICARE, OTHER, SELFPAY ==
[2022-12-30 12:42] LABS: Absolute Lymphocyte Count 2.54 X10^3/uL (0.83-4.51); Absolute Neutrophil Count 2.5 X10^3/uL (2.0-7.7); Basophil# 0.03 X10^3/uL; Basophil% 0.5 % (0-1); Eosinophils% 1.8 % (0-5); Hematocrit 41.5 % (37-47); Hemoglobin 13.5 g/dL (12.0-15.0); Lymphocyte # 2.54 X10^3/ul (0.83-4.51); Mean Corp Hgb Conc 32.5 g/dL (32-36); Mean Corpuscular Hgb 28.8 pg (27.0-32.0); Mean Corpuscular Volume 88.7 fL (81-99); Mean Platelet Vol. 10.8 fl (6.2-12.0); Monocyte# 0.44 X10^3/uL; Monocyte% 7.8 % (0-10); NRBC Flagged by Analyzer 0 % (0-5); Neutrophil # 2.52 X10^3/uL (2.7-7.7); Neutrophil % 44.7 % (47-70); Platelet Count 213 K/mm3 (150-450); RBC Distribution Width CV 13.4 % (11.6-14.6); RBC Distribution Width SD 43.5 fl (35.1-43.9); Red Blood Count 4.68 M/mm3 (4.2-5.4); White Blood Count 5.6 K/mm3 (4.4-11.0)
[2022-12-30 13:02] LABS: AST(SGOT) 15 U/L (15-37); Alanine Aminotransfer ALT/SGPT 30 U/L (13-56); Albumin, Serum 3.5 g/dL (3.2-5.0); Alkaline Phosphatase 71 U/L (45-117); Anion Gap 8 (5-15); BUN 18 mg/dL (7-18); BUN/Creat Ratio 20.8 RATIO (10-20); Chloride 108 mmol/L (98-107); Cholesterol 238 mg/dL (200); Creatinine, Serum 0.86 mg/dL (0.55-1.02); EST Glomerular Filtration Rate 68 mL/min (>60); Est Glom Filt Rate - Afr Amer 82 mL/min (>60); Globulin 3.6 g/dL (2.2-4.2); Glucose 137 mg/dL (74-106); High Density Lipoprotein 78 mg/dL; Potassium 3.9 mmol/L (3.5-5.1); Protein, Total 7.1 g/dL (6.4-8.2); Sodium Level 139 mmol/L (136-145); Triglycerides 115 mg/dL; Very Low Density Lipoprotein 23 mg/dL (5-40)
[2022-12-30 13:35] LABS: Hemoglobin A1c 6.9 % (3.8-5.6)
== END | disposition home or self-care (01) ==
LOC: BIMLAB 11:05
PROVIDERS: PCP Internal Medicine; Visit Provider Internal Medicine Endocrinology, Diabetes & Metabolism
DX: E11.65 Type 2 diabetes mellitus with hyperglycemia (principal); E78.5 Hyperlipidemia, unspecified
CPT/HCPCS: 36415; 80053; 80061; 83036; 84443; 85025

== ENCOUNTER → 2023-02-12 | Outpatient (CLI) | payer MEDICARE, OTHER, SELFPAY ==
--- OUTSIDE RECORDS SUMMARY | 2023-02-12 12:54 | XMS RPT_ITS | CCD ---
Author Name Unknown Address [address] [place] [address] Organization [facility] Results Test Name Value Interpretation Reference Range Facil ity Summary Purpose Family History No Family History Records Found Advance Directives No Advanced Directives Records Found Additional Source Comments INFORMATION SOURCE (unrecogn ized section and content) FOR RECORDS PERTAINING TO PATIENTS WHO ARE OR HAVE BEEN ENROLLED IN A CHEMICAL DEPENDENCY/SUBSTANCEABUSE PROGRAM, SOME INFORMATION MAY BE OMITTED. This clinical summary was aggregated from multiple sources. Caution should be exercised in using it in the provision of clinical care. This summary normalizes information from multiple sources, and as a consequence, information in this document may materially change the coding, format and clinical context of patient data. In addition, data may be omitted in some cases. CLINICAL DECISIONS SHOULD BE BASED ON THE PRIMARY CLINICAL RECORDS. [employer] provides no warranty or guarantee of the accuracy or completeness of information in this document.
[2023-02-12 13:59] LABS: Thyroid Stim Hormone (TSH) 1.03 uIU/mL (0.358-3.74)
[2023-02-14 04:07] LABS: Thyroid Peroxidase AB < 9 IU/mL (0-34)
== END | disposition home or self-care (01) ==
LOC: LAB 12:39
PROVIDERS: PCP Internal Medicine; Referring Provider Internal Medicine Endocrinology, Diabetes & Metabolism; Visit Provider Internal Medicine Endocrinology, Diabetes & Metabolism
DX: E11.9 Type 2 diabetes mellitus without complications (principal); I10 Essential (primary) hypertension; E78.5 Hyperlipidemia, unspecified
CPT/HCPCS: 36415; 84443; 86376

== ENCOUNTER → 2023-05-27 | Outpatient (CLI) | payer MEDICARE, OTHER, SELFPAY ==
--- NOTE | 2023-05-27 17:20 | RAD_ITS ---
INDICATION: Left Hip Pain EXAMINATION/TECHNIQUE: X-RAY - LEFT XR Hip Unilateral with Pelvis when performed; 2-3 Views 3 VIEWS COMPARISON: CT abdomen and pelvis December 19, 2019. Also compared with lumbar spine x-rays from May 27, 2023. FINDINGS: SOFT TISSUES: Chronic left ischial and bilateral greater trochanteric enthesopathic changes. Colonic anastomotic sutures seen in the pelvis. 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 There are at least mild degenerative changes bilateral hips. No fracture or focal osseous lesion. Moderate degenerative endplate changes lower lumbar spine. No sclerotic or destructive changes observed. RAD/HIP, UNI W/ Pelvis 2-3 Views IMPRESSION: 1. Bilateral coxa profunda increased acetabular coverage. 2. Mild degenerative changes bilateral hips. 3. Chronic enthesopathic and degenerative changes as above. Electronically Signed: Lane Magallon DO at 23:18 EDT ,
--- NOTE | 2023-05-27 17:20 | RAD_ITS ---
INDICATION: Low Back Pain EXAMINATION/TECHNIQUE: X-RAY - XR Spine Lumbar Min 4 Views COMPARISON: CT abdomen and pelvis from December 19, 2019. FINDINGS: VERTEBRAE: Preserved vertebral body height. No fracture. Moderate lateral curvature mid lumbar spine, convex left, centered at L3. Normal lordotic curvature. Significant degenerative endplate changes at L4-5 and at least mild degenerative changes L2-3 and L5-S1. Moderate bilateral facet arthropathy throughout the lumbar spine. No pars defect. DISCS: Multilevel intervertebral disc height loss most severe at L4-5 and L5-S1. Sacroiliac joints are normal. INCLUDED ABDOMEN: Moderate abdominal aortic intimal calcifications. Anastomotic bowel sutures seen in the pelvis. RAD/L/S Spine Min 4 Views IMPRESSION: 1. Multilevel degenerative disc and endplate changes most notably at L4-5 and L5-S1. 2. Moderate lateral curvature thoracic spine. Electronically Signed: Lane Magallon DO at 22:48 EDT ,
--- NOTE | 2023-05-27 17:20 | RAD_ITS ---
INDICATION: Left Mckeon Pain EXAMINATION/TECHNIQUE: X-RAY - LEFT XR Tibia/Fibula 2 Views 4 VIEWS COMPARISON: No relevant prior comparison studies available. FINDINGS: SOFT TISSUES: No soft tissue swelling or gas. No radiopaque foreign body. BONES/JOINTS: No acute fracture or malalignment. Preservation of the joint space and no degenerative bony proliferative changes. No sclerotic or destructive changes observed. RAD/Tibia & Fibula 2 Views IMPRESSION: Negative. Electronically Signed: Lane Magallon DO at 23:09 EDT ,
== END | disposition home or self-care (01) ==
LOC: RAD 17:04
PROVIDERS: PCP Internal Medicine; Referring Provider Internal Medicine; Visit Provider Internal Medicine
DX: M25.552 Pain in left hip (principal); M79.662 Pain in left lower leg; M54.50 Low back pain, unspecified
CPT/HCPCS: 72110; 73502; 73590

== ENCOUNTER 2023-06-25 14:00 | Outpatient (RCR) | payer MEDICARE, OTHER, SELFPAY ==
--- NOTE | 2023-06-05 14:05 | HP.PTEVAL_ITS ---
Patient's Visit Information Visit Information Visit Information: SHEYLA RAMIREZ is a 77 year old F referred to Physical Therapy by Dr. Naren Thorne MD with a diagnosis of LBP. Date of Evaluation: 06/05/23 Physical Therapist: Souleymane Stallings, PT, ATC Visit Plan Frequency: 2-3x /Week Duration: 4-6 Weeks Plan: Pt has GERD, be careful with supine activity. Core strengthening, LE stretching and strengthening, bike, and HEP Subjective Subjective: Pt reports she has had LBP for many years. Pt reports she has had recent xrays which revealed degenerative changes in the LB region. Pt notes she also has reflux problems which has caused her to sleep in a recliner. Pt reports she has had intermittent LE radiculopathy in the past, but none right now. Pt r eports prolonged sitting causes her increased pain. Pt reports prolonged standing and ambulating also causes her increased pain. Pt reports she has good sensation in her feet. Pt reports she cleans her house in sections at a time to avoid LBP. Pt also notes she only lifts light objects secondary to the fear of LBP. Pt reports lumbar spine extensions helps to decrease her pain. 1/10 pain while sitting here at rest, 6/10 pain at worst. Pt reports sleep difficulty at this time secondary to pain. Pain LBP: Pain Intensity (Out of 10): 1 Pain Intensity Range: 6 Objective Objective: Neuro: B LE sensation is WNL to light touch. B patellar reflex= 2/3. MMT: B LE's are grossly 4-/5 throughout ROM: L/S flex and ext are moderately limited, B SB is WNL Repeated movements: RFIS 10x2 NE; TERRI 10x3 NE. Unable to assess supine tests secondary to GERD Special tests: pos 90/90 test (45 degree lag) Balance/Special Test Scores Oswestry Low Back Score: 9 Goals Goal 1:: Decrease LBP x 50% to aid with sleep Goal Time Frame: 4-6 Weeks Goal 2:: Increase L/S ext and flex ROM x 1 grade to aid with IADL's Goal Time Frame: 4-6 Weeks Goal 3:: Increase B LE strength x 1 grade to aid with IADL's Goal Time Frame: 4-6 Weeks Goal 4:: I with HEP Goal Time Frame: 4-6 Weeks Rehabilitation Potential Physical Therapy Diagnosis: Pt has LBP, limited L/S ROM, and intermittent L LE radiculopathy secondary to degenerative changes in the L/S Rehabilitation Potential: Good Anticipated Interventions Patient/Client Instruction: Educate patient on: Condition and Plan of Care For the Purpose of:: To improve self management Therapeutic Exercise to Include: Strength training, Flexibilty training, Active ROM and Dynamic Lumbar Stabilization For the Purpose of:: To decrease pain, To increase ROM and To improve muscle performance and motor function Text: Thank you for the opportunity to evaluate your patient. For Medicare and Medicare HMO plans, please review the plan of care and approve it. It will need to be FAXED BACK to us at [phone] for Medicare purposes. For Medicare only, by signing this I certify the plan of care. Please let me know if there are questions or concerns regarding this plan of care. Physician Signature: Date:
== END 2023-06-25 19:00 | disposition home or self-care (01) ==
LOC: PT 14:00
PROVIDERS: PCP Internal Medicine; Referring Provider Internal Medicine; Visit Provider Internal Medicine
DX: M54.50 Low back pain, unspecified (principal); M25.552 Pain in left hip
CPT/HCPCS: 97110; 97161

== ENCOUNTER → 2023-08-19 | Outpatient (CLI) | payer MEDICARE, OTHER, SELFPAY ==
--- NOTE | 2023-08-19 06:38 | ECHOD_ITS ---
Version 2 Reason For Study: PRE- OPERATIVE Procedure This was a 2D Doppler, Color Flow transthoracic echocardiogram. Exam performed in department. Left Ventricle Normal LV size. Left ventricular systolic function is normal. The left ventricular ejection fraction is 65 %. Stage 1 diastolic dysfunction. No regional wall motion abnormalities noted. Right Ventricle Normal RV size. Normal systolic function. Atria Normal left atrium. Normal right atrium. Mitral Valve There is mild mitral annular calcification. Trivial eccentric mitral valve insufficiency. Tricuspid Valve Normal tricuspid valve. Mild (1+) tricuspid valve insufficiency. Pulmonary artery systolic pressure is 30 mmHg. Aortic Valve Trisinus/trileaflet aortic valve. Pulmonic Valve Normal pulmonic valve. Great Vessels Normal aortic root. The pulmonary artery is normal size. Normal inferior vena cava. Pericardium/Pleural No pericardial effusion. MMode/2D Measurements & Calculations LVIDd: 3.3 cm IVSd: 1.1 cm LVOT diam: 1.9 cm LVIDs: 2.1 cm LVPWd: 0.95 cm LVOT area: 2.8 cm2 RVDd: 3.1 cm FS: 35.3 % Ao root diam: 2.9 cm LAV(MOD-bp): 20.8 ml LVAd ap4: 17.1 cm2 LAV(MOD-bp) Indexed: 11.6 ml/m2 LVLd ap4: 6.8 cm LAV(MOD-sp2): 28.5 ml EDV(MOD-sp4): 34.5 ml LAV(MOD-sp4): 14.1 ml EDV(sp4-el): 36.3 ml LVAs ap4: 8.8 cm2 LVLs ap4: 5.7 cm ESV(MOD-sp4): 11.8 ml ESV(sp4-el): 11.3 ml EF(MOD-sp4): 65.7 % EF(sp4-el): 68.8 % LVAd ap2: 16.6 cm2 SV(MOD-sp4): 22.7 ml SV(MOD-sp2): 22.3 ml LVLd ap2: 6.9 cm EDV(MOD-sp2): 32.6 ml EDV(sp2-el): 33.8 ml LVAs ap2: 7.7 cm2 LVLs ap2: 5.3 cm ESV(MOD-sp2): 10.2 ml ESV(sp2-el): 9.6 ml EF(MOD-sp2): 68.6 % SV(sp4-el): 25.0 ml LA dimension(2D): 3.4 cm LA A4 area: 8.9 cm2 RA A4 area: 7.9 cm2 TAPSE: 1.7 cm Time Measurements MV dec time: 0.32 sec Doppler Measurements & Calculations MV E max nick: 61.4 cm/sec Lat Peak E' Nick: 9.5 cm/sec Med Peak E' Nick: 6.8 cm/sec MV A max nick: 97.4 cm/sec E/E' lat: 6.5 E/E' med: 9.0 MV E/A: 0.63 Ao V2 max: 147.1 cm/sec LV V1 max: 116.4 cm/sec MV dec slope: 190.2 cm/sec2 Ao max P.6 mmHg LV V1 max P.4 mmHg Ao V2 mean: 101.2 cm/sec LV V1 mean P.0 mmHg Ao mean P.7 mmHg LV V1 mean: 81.5 cm/sec Ao V2 VTI: 35.2 cm LV V1 VTI: 25.6 cm AV (velocity ratio): 0.73 JAS(I,D): 2.0 cm2 JAS(V,D): 2.2 cm2 SV(LVOT): 70.5 ml PA V2 max: 71.8 cm/sec TR max nick: 251.3 cm/sec PA max PG (full): 0.21 mmHg TR max P.3 mmHg ECHO/Echo Complete Interpretation Summary Normal LV size. Left ventricular systolic function is normal. The left ventricular ejection fraction is 65 %. There is mild mitral annular calcification. Stage 1 diastolic dysfunction. Ordering Physician: Deanna Fregoso Referring Physician: Naren Thorne Performed By: Jaye Paniagua RDCS
--- NOTE | 2023-08-19 06:38 | CDU_ITS ---
Reason For Study: Carotid artery disease Rt. Velocities/BP Lt. Velocities/BP Prox CCA 72.1/12.6 cm/sec. Prox CCA 113.3/21.2 cm/sec. Mid CCA 88.1/17.3 cm/sec. Mid CCA 87.6/16.3 cm/sec. Dist CCA 90/15.4 cm/sec. Dist CCA 88.8/16.3 cm/sec. Prox ICA 71.8/15.7 cm/sec. Prox ICA 69.6/21 cm/sec. Mid ICA 107.2/33.5 cm/sec. Mid ICA 109.7/29.8 cm/sec. Dist ICA 149.9/35.8 cm/sec. Dist ICA 115.6/29.8 cm/sec. Rt. ICA/CCA = 1.70. Lt. ICA/CCA = 1.32. Prox ECA 116.8/10.2 cm/sec. Prox ECA 88.8/6.5 cm/sec. Rt. Vert. 39/9.7 cm/sec. Lt. Vert. 47.4/12.5 cm/sec. Right Extracranial There is intimal thickening but no significant atherosclerotic plaque noted in the right common carotid artery. There is homogeneous, smooth atherosclerotic plaque noted in the right internal carotid artery. The right internal carotid artery distal is tortuous. There is intimal thickening but no significant atherosclerotic plaque noted in the right external carotid artery. Antegrade flow is noted in the right vertebral artery. Left Extracranial There is intimal thickening but no significant atherosclerotic plaque noted in the left common carotid artery. There is heterogeneous, irregular atherosclerotic plaque noted in the left internal carotid artery. There is intimal thickening but no significant atherosclerotic plaque noted in the left external carotid artery. Antegrade flow is noted in the left vertebral artery. Procedure Carotid Duplex 60195. This is a Carotid Duplex examination using B-mode, color flow and specral Doppler. Exam performed in department. VL/Carotid Duplex Ultrasound Interpretation Summary Moderate (50-69%) stenosis right extracranial internal carotid. Mild (<50%) stenosis left extracranial internal carotid. Patent and antegrade vertebrals bilaterally. Ordering Physician: Deanna Fregoso Referring Physician: Naren Thorne Performed By: Marlin Ann RVT
--- NOTE | 2023-08-19 12:21 | STRESSREP ---
Stress Test Report Pharmacologic myocardial perfusion stress test. 77-year-old lady with a history for preop evaluation Resting EKG demonstrates sinus rhythm with a rate of 68 bpm. Resting blood pressure is 122/70 mmHg. 0.4 mg of regadenoson was infused per usual protocol followed by rapid intravenous saline flush injection. Continuous EKG monitoring was performed. The maximum heart rate was 88 bpm which was 61% of max impacted heart rate the maximum workload was 1 metabolic equivalent. At rest there were no ST or T wave changes noted to suggest ischemia and at peak infusion nonspecific ST changes were noted which did not meet the criteria for ischemia. No clinical angina is noted. The final blood pressure was 116/70 mmHg. Myocardial perfusion protocol. 11 point mCi of technetium 99m sestamibi was injected at rest. 0.4 mg of regadenoson was infused per usual protocol. At peak infusion 34.7 mCi of technetium 99m sestamibi was injected stress images were obtained stress and rest images were reconstructed and compared in the short axis vertical long and horizontal long axis. Gated images were also obtained. Perfusion SPECT analysis: Review of the stress images demonstrate normal uptake of tracer noted in all areas of the myocardium. The resting images similar demonstrated normal uptake of tracer noted in all areas of the myocardium. No areas of reversibility are noted to suggest ischemia and no previous infarct is noted. Gated SPECT analysis: The gated ejection fraction is over 60%. Conclusion: Normal pharmacologic myocardial perfusion stress test. Preserved ejection fraction.
== END | disposition home or self-care (01) ==
LOC: CVS 06:35
PROVIDERS: PCP Internal Medicine; Referring Provider Internal Medicine Cardiovascular Disease; Visit Provider Internal Medicine Cardiovascular Disease
DX: Z01.810 Encounter for preprocedural cardiovascular examination (principal); K44.9 Diaphragmatic hernia without obstruction or gangrene; I10 Essential (primary) hypertension; I77.9 Disorder of arteries and arterioles, unspecified; R42 Dizziness and giddiness; R06.09 Other forms of dyspnea
CPT/HCPCS: 78452; 93017; 93306; 93880; A9500; A4216; J2785

== ENCOUNTER → 2023-10-05 | Outpatient (CLI) | payer MEDICARE, OTHER, SELFPAY ==
--- NOTE | 2023-10-05 15:30 | RAD_ITS ---
STUDY: X-RAY CHEST REASON FOR EXAM: Female, 77 years old. s/p aspiration pneumonia, lump left neck TECHNIQUE: PA and lateral views of the chest. COMPARISON: None. FINDINGS: The lungs are clear and expanded. There is no demonstrated pleural abnormality. Normal size heart. Normal mediastinum and ortega. Normal visualized pulmonary arteries. Normal visualized aortic arch and descending thoracic aorta. There is a dextroscoliosis of the thoracic spine. Normal visualized ribs, clavicles, and shoulders. There is no demonstrated abnormality of the visualized soft tissue structures of the upper abdomen. RAD/Chest PA and Lateral IMPRESSION: No active disease. Electronically Signed: Amador Arias MD at 9:16 EDT ,
--- NOTE | 2023-10-05 15:30 | RAD_ITS ---
STUDY: X-RAY - THORACIC SPINE REASON FOR EXAM: Female, 77 years old. Back pain TECHNIQUE: 3 view(s) of the thoracic spine were obtained. COMPARISON: None. FINDINGS: Normal kyphosis of the thoracic spine. Mild dextroscoliosis centered at T10. Mild loss of height and wedging deformity of the T8 vertebral body consistent with a mild compression fracture. This may be acute or chronic and clinical correlation and MRI may be useful. Normal disc space heights. The soft tissue structures are unremarkable. RAD/Thoracic Spine 2 Views IMPRESSION: Mild compression fracture of T8 which may be acute or chronic and clinical correlation and MRI may be useful. Electronically Signed: Amador Arias MD at 9:18 EDT ,
== END | disposition home or self-care (01) ==
LOC: RAD 15:24
PROVIDERS: PCP Internal Medicine; Referring Provider Internal Medicine Endocrinology, Diabetes & Metabolism; Visit Provider Internal Medicine Endocrinology, Diabetes & Metabolism
DX: M54.9 Dorsalgia, unspecified (principal); R05.9 Cough, unspecified
CPT/HCPCS: 71046; 72070

== ENCOUNTER → 2023-10-13 | Outpatient (CLI) | payer MEDICARE, OTHER, SELFPAY ==
--- NOTE | 2023-10-13 12:13 | BI_ITS ---
MAMMOGRAPHY - BILATERAL SCREENING REASON FOR EXAM: Female, 77 years old. Routine annual screening examination. PERTINENT HISTORY: Mother with breast cancer. Remote right excisional breast biopsy. TECHNIQUE: Digital bilateral breast simona (3D mammographic acquisition) in the CC and MLO projections. 2-D mediolateral oblique (MLO) and craniocaudad (CC) views of both breasts were obtained. CAD: Full Field Digital Mammography with Computer Added Detection was performed. COMPARISON: Comparison is made with prior study of September 11, 2022 and September 10, 2021. FINDINGS: Breast Composition: The breasts are extremely dense, which lowers the sensitivity of mammography. There are no dominant masses or suspicious calcifications. No other significant abnormalities are identified. There has been no significant change since the prior study. BI/SCRN MAMM (CAD)W/SIMONA BILAT IMPRESSION: Stable bilateral screening mammogram. Yearly follow-up mammogram recommended. (A) ASSESSMENT CATEGORY: BIRADS Category 1: Negative. A letter regarding these results will be sent to the patient by the facility within 30 days. Approximately 10% of breast cancers are not detected by mammography. A normal mammogram should not delay biopsy of a clinically suspicious abnormality. [id number] Electronically Signed: Jj Unger MD at 13:29 EDT ,
--- NOTE | 2023-10-13 12:19 | BD_ITS ---
STUDY: DUAL ENERGY X-RAY ABSORPTIOMETRY / DXA REASON FOR EXAM: Female, 77 years old. Post menopausal TECHNIQUE: Bone Mineral Density (BMD) measurements of lumbar spine and bilateral hips were obtained. COMPARISON: Comparison is made with prior study dated September 10, 2021. FINDINGS: Lumbar Spine (L1-L4): g/cm2 (1.087) / T-score (0.6) / Z-score (3.1) Findings are suggestive of normal bone density with a low fracture risk. Left Femur Total: g/cm2 (0.939) / T-score (0.0) / Z-score (1.9) Left Femoral Neck: g/cm2 (0.700) / T-score (-1.3) / Z-score (0.8) Right Femur Total: g/cm2 (0.931) / T-score (-0.1) / Z-score (1.8) Right Femoral Neck: g/cm2 (0.836) / T-score (-0.1) / Z-score (2.0) The T-Scores on the most recent prior examination were: Lumbar Spine (L1-L4): There has been worsening of bone density since the previous examination. Left Femur Total: which represents a worsening of 1.1%. Right Femur Total: which represents a worsening of 3.7%. BD/Dexa Bone Density Study IMPRESSION: The patient is considered osteopenic as outlined below according to World [employer] Organization (WHO) criteria with a low fracture risk. There has been worsening of bone density since the previous examination. Reference Information: The T-score is the number of standard deviations above or below the standard which is normal for young adults at their peak bone mineral density. The World Health Organization (WHO) interprets the T-scores as follows: Above -1 Normal bone density Between -1 and -2.5 Osteopenia Equal to / or below -2.5 Osteoporosis As a practical clinical guideline, osteopenia may be graded as follows: Mild -1 through -1.5 Moderate -1.6 through -2.0 Severe -2.1 through -2.4 The Z-score is the number of standard deviations above or below age-matched controls. A Z-score of less than -1.5 would be considered abnormal. References: 1. NIH Osteoporosis and Related Bone Diseases www osteo.org 2. International Society for Clinical Densitometry www iscd.org 3. National Osteoporosis Foundation www nof.org Electronically Signed: Jj Unger MD at 10:07 EDT ,
== END | disposition home or self-care (01) ==
LOC: OPBD 12:12
PROVIDERS: PCP Internal Medicine; Referring Provider Internal Medicine; Visit Provider Internal Medicine
DX: Z12.31 Encounter for screening mammogram for malignant neoplasm of breast (principal); Z78.0 Asymptomatic menopausal state; Z80.3 Family history of malignant neoplasm of breast
CPT/HCPCS: 77063; 77067; 77080

== ENCOUNTER → 2023-10-22 | Outpatient (CLI) | payer MEDICARE, OTHER, SELFPAY ==
--- NOTE | 2023-10-22 15:02 | US_ITS ---
STUDY: SUPERFICIAL ULTRASOUND - SMALL NODULE OVERLYING THE LEFT STERNOCLEIDOMASTOID MASTOID MUSCLE. REASON FOR EXAM: Female, 77 years old. Small nodule over left SCM muscle TECHNIQUE: A superficial ultrasound was performed with real-time and static alves-scale imaging. COMPARISON: None. FINDINGS: The left cervical region was examined with ultrasound. There are 2 adjacent benign-appearing lymph nodes. The larger lymph node measures 1 cm x 0.7 cm x 0.5 cm. US/Head/Neck Soft Tissue IMPRESSION: There are 2 small adjacent benign-appearing lymph nodes corresponding to the palpable abnormality. Electronically Signed: Jj Unger MD at 11:56 EDT ,
== END | disposition home or self-care (01) ==
LOC: US 14:56
PROVIDERS: PCP Internal Medicine; Referring Provider Internal Medicine Endocrinology, Diabetes & Metabolism; Visit Provider Internal Medicine Endocrinology, Diabetes & Metabolism
DX: R22.1 Localized swelling, mass and lump, neck (principal)
CPT/HCPCS: 76536

== ENCOUNTER → 2023-11-03 | Outpatient (CLI) | payer MEDICARE, OTHER, SELFPAY ==
--- NOTE | 2023-11-03 17:47 | CT_ITS ---
INDICATION: pain EXAMINATION: CT THORACIC SPINE - CT Spine Thoracic W/O Contrast Injection TECHNIQUE: Helically acquired images were obtained of the thoracic spine. 2D reformats were reviewed. A radiation dose optimization technique was used for this scan. The protocol utilizes one or more of the following dose reduction techniques: automated exposure control, adjustment of mA and/or kV according to patient size,and/or use of iterative reconstruction technique. IV Contrast dosage and agent: None. RADIATION DOSAGE (If Supplied By Facility): CTDIvol = ( 18.42 ) mGy, DLP = ( 691.71 ) mGycm COMPARISON: CT of the abdomen and pelvis dated December 19, [address] of the neck dated August 21, 2010 FINDINGS: VERTEBRAE: There is a anterior/mid T8 vertebral body deformity with approximately 15% height loss that appears chronic. There is multilevel endplate spondylosis and facet hypertrophy. No discrete lytic or blastic abnormality observed. VERTEBRAL ALIGNMENT: Unremarkable. There is preservation of the normal thoracic kyphosis. DISCS: There is multilevel degenerative disc disease. There is no critical stenosis. VISUALIZED THORAX: Visualized thoracic aorta is nondilated. There are vascular calcifications. Lung cabrera are clear. There is a 2.1 x 1.3 cm round partially solid appearing nodule with thin the isthmus of the thyroid gland right of midline. CT/Spine Thoracic without Contras IMPRESSION: Multilevel degenerative changes. T8 compression deformity, may be secondary to remote injury. Atherosclerosis. 2.1 x 1.3 cm thyroid nodule, recommend nonemergent thyroid ultrasound for further characterization. Electronically Signed: Sommre Holliday MD at 9:04 EDT ,
== END | disposition home or self-care (01) ==
LOC: CT 17:46
PROVIDERS: PCP Internal Medicine; Referring Provider Physician Assistant; Visit Provider Physician Assistant
DX: M54.6 Pain in thoracic spine (principal)
CPT/HCPCS: 72128

== ENCOUNTER → 2023-11-24 | Outpatient (CLI) | payer MEDICARE, OTHER, SELFPAY ==
--- NOTE | 2023-11-24 14:42 | US_ITS ---
EXAM: US SOFT TISSUES HEAD AND NECK, THYROID CLINICAL INDICATION: Abnormal CT. Thyroid Nodule TECHNIQUE: Mallory scale and color doppler imaging was performed of the thyroid gland. COMPARISON: No relevant prior studies available. FINDINGS: LEFT THYROID LOBE: Left thyroid lobe measures 3.9 x 1.3 x 1.7 cm. There are several colloid cysts measuring less than 5 mm in diameter. Echogenicity is otherwise unremarkable. RIGHT THYROID LOBE: Purely cystic 7 mm lesion noted within the upper pole. Additional 2 and 3 mm colloid cyst noted throughout the right thyroid lobe. Right thyroid lobe measures 4.9 x 1.6 x 1.8 cm. A dominant 2 cm solid and cystic nodule arises from the inferior pole of the right thyroid gland. This nodule is mixed cystic and solid, hyperechoic or isoechoic, [id number], smoothly marginated and contains no echogenic foci. TI-RADS points: 2. TI-RADS category: TR2. This nodule is not suspicious and no FNA or follow-up is necessary. ISTHMUS: Isthmus measures 5 mm in AP dimension. No thyroid nodules are present. US/Thyroid IMPRESSION: Bilateral colloid cysts. Dominant 2 cm right thyroid nodule with TR score of 2. No specific follow-up indicated. Electronically Signed: Luis Fernando Romero MD at 16:20 EDT ,
== END | disposition home or self-care (01) ==
PROVIDERS: PCP Internal Medicine; Referring Provider Internal Medicine; Visit Provider Internal Medicine
DX: E04.1 Nontoxic single thyroid nodule (principal)
CPT/HCPCS: 76536

== ENCOUNTER → 2023-12-01 | Outpatient (CLI) | payer MEDICARE, OTHER, SELFPAY ==
[2023-12-01 12:53] LABS: AST(SGOT) 19 U/L (15-37); Alanine Aminotransfer ALT/SGPT 40 U/L (13-56); Albumin, Serum 3.6 g/dL (3.2-5.0); Alkaline Phosphatase 97 U/L (45-117); Anion Gap 8 (5-15); BUN 18 mg/dL (7-18); BUN/Creat Ratio 18.7 RATIO (10-20); Calcium,Total 9.4 mg/dL (8.5-10.1); Chloride 102 mmol/L (98-107); Cholesterol 205 mg/dL (200); Creatinine, Serum 0.96 mg/dL (0.55-1.02); EST Glomerular Filtration Rate 60 mL/min (>60); Est Glom Filt Rate - Afr Amer 72 mL/min (>60); Globulin 3.7 g/dL (2.2-4.2); Glucose 229 mg/dL (74-106); High Density Lipoprotein 89 mg/dL; Potassium 3.9 mmol/L (3.5-5.1); Protein, Total 7.3 g/dL (6.4-8.2); Sodium Level 137 mmol/L (136-145); Triglycerides 70 mg/dL; Very Low Density Lipoprotein 14 mg/dL (5-40)
== END | disposition home or self-care (01) ==
LOC: BIMLAB 08:21
PROVIDERS: PCP Internal Medicine; Visit Provider Internal Medicine
DX: E78.5 Hyperlipidemia, unspecified (principal); I10 Essential (primary) hypertension
CPT/HCPCS: 36415; 80053; 80061

== ENCOUNTER → 2024-06-15 | Outpatient (CLI) | payer MEDICARE, OTHER, SELFPAY ==
[2024-06-15 17:05] LABS: Absolute Lymphocyte Count 1.74 X10^3/uL (0.83-4.51); Absolute Neutrophil Count 4.2 X10^3/uL (2.0-7.7); Basophil# 0.03 X10^3/uL; Basophil% 0.4 % (0-1); Eosinophil# 0.13 X10^3/uL; Eosinophils% 1.9 % (0-5); Hematocrit 41.6 % (37-47); Hemoglobin 13.3 g/dL (12.0-15.0); Lymphocyte # 1.74 X10^3/ul (0.83-4.51); Lymphocyte % 25.9 % (19-41); Mean Corpuscular Hgb 28.3 pg (27.0-32.0); Mean Corpuscular Volume 88.5 fL (81-99); Mean Platelet Vol. 11.2 fl (6.2-12.0); Monocyte# 0.57 X10^3/uL; Monocyte% 8.5 % (0-10); NRBC Flagged by Analyzer 0 % (0-5); Neutrophil # 4.24 X10^3/uL (2.7-7.7); Platelet Count 212 K/mm3 (150-450); RBC Distribution Width CV 13.5 % (11.6-14.6); RBC Distribution Width SD 43.8 fl (35.1-43.9); White Blood Count 6.7 K/mm3 (4.4-11.0)
[2024-06-15 17:10] LABS: Anion Gap 11 (5-15); BUN 24 mg/dL (4-19); BUN/Creat Ratio 28.5 RATIO (10-20); Calcium,Total 9.7 mg/dL (7.6-11.0); Carbon Dioxide 25.5 mmol/L (21.0-32.0); Chloride 106 mmol/L (98-108); Creatinine, Serum 0.84 mg/dL (0.70-1.20); EST Glomerular Filtration Rate 72 (>60); Glucose 145 mg/dL (70-99); Potassium 4.6 mmol/L (3.3-5.1); Sodium Level 142 mmol/L (133-145)
== END | disposition home or self-care (01) ==
LOC: BIMLAB 14:59
PROVIDERS: PCP Internal Medicine; Referring Provider Internal Medicine; Visit Provider Internal Medicine
DX: I10 Essential (primary) hypertension (principal)
CPT/HCPCS: 36415; 80048; 85025

== ENCOUNTER → 2024-08-01 | Outpatient (CLI) | payer MEDICARE, OTHER, SELFPAY ==
--- NOTE | 2024-08-01 12:59 | CDU_ITS ---
Reason For Study Reason For Study: Carotid Artery Disease Rt. Velocities/BP Lt. Velocities/BP Prox CCA 92.5/11.4 cm/sec. Prox CCA 80.6/13.5 cm/sec. Mid CCA 132.1/11.5 cm/sec. Mid CCA 98.6/15.1 cm/sec. Dist CCA 73.6/15.2 cm/sec. Dist CCA 83.9/17.6 cm/sec. Prox ICA 65.2/14.6 cm/sec. Prox ICA 94.9/23.7 cm/sec. Mid ICA 90.5/25.6 cm/sec. Mid ICA 158.7/40.2 cm/sec. Dist ICA 71.8/17.9 cm/sec. Dist ICA 74.6/22.7 cm/sec. Rt. ICA/CCA = 0.7. Lt. ICA/CCA = 1.6. Prox ECA 93.7/9.7 cm/sec. Prox ECA 97.4/5.3 cm/sec. Rt. Vert. 45.4/10.2 cm/sec. Lt. Vert. 64.2/15.1 cm/sec. Right Extracranial There is intimal thickening but no significant atherosclerotic plaque noted in the right common carotid artery. There is homogeneous, smooth atherosclerotic plaque noted in the right internal carotid artery. There is intimal thickening but no significant atherosclerotic plaque noted in the right external carotid artery. Antegrade flow is noted in the right vertebral artery. Left Extracranial There is intimal thickening but no significant atherosclerotic plaque noted in the left common carotid artery. There is heterogeneous, irregular atherosclerotic plaque noted in the left internal carotid artery. The left internal carotid artery is very tortuous. There is intimal thickening but no significant atherosclerotic plaque noted in the left external carotid artery. Antegrade flow is noted in the left vertebral artery. Procedure Carotid Duplex 06990. This is a Carotid Duplex examination using B-mode, color flow and specral Doppler. Exam performed in department. VL/Carotid Duplex Ultrasound Interpretation Summary Mild (<50%) stenosis right extracranial internal carotid. Moderate (50-69%) stenosis left extracranial internal carotid. Patent and antegrade vertebrals bilaterally. Ordering Physician: Alcira Angelo Referring Physician: Naren Tohrne Performed By: Kelsey Dow RVT
== END | disposition home or self-care (01) ==
LOC: CVS 12:57
PROVIDERS: PCP Internal Medicine; Referring Provider Physician Assistant Medical; Visit Provider Physician Assistant Medical
DX: I65.21 Occlusion and stenosis of right carotid artery (principal)
CPT/HCPCS: 93880

== ENCOUNTER → 2024-10-21 | Outpatient (CLI) | payer MEDICARE, OTHER, SELFPAY ==
[2024-10-21 13:30] LABS: AST(SGOT) 21 U/L (<=31); Alanine Aminotransfer ALT/SGPT 28 U/L (<=34); Albumin, Serum 3.9 g/dL (3.4-4.8); Alkaline Phosphatase 70 U/L (35-104); Anion Gap 12 (5-15); BUN 27 mg/dL (4-19); BUN/Creat Ratio 32.1 RATIO (10-20); Calcium,Total 9.3 mg/dL (7.6-11.0); Carbon Dioxide 22.6 mmol/L (21.0-32.0); Chloride 104 mmol/L (98-108); Cholesterol 189 mg/dL (<=200); Globulin 2.7 g/dL (2.2-4.2); Glucose 150 mg/dL (70-99); Low Density Lipoprotein Calc. 89 mg/dL; Potassium 4.0 mmol/L (3.3-5.1); Triglycerides 63 mg/dL; Very Low Density Lipoprotein 13 mg/dL (5-40); cholesterol:hdl ratio screen 2.16
== END | disposition home or self-care (01) ==
LOC: BIMLAB 08:40
PROVIDERS: PCP Internal Medicine; Referring Provider Internal Medicine; Visit Provider Internal Medicine
DX: E78.5 Hyperlipidemia, unspecified (principal); E11.9 Type 2 diabetes mellitus without complications; I10 Essential (primary) hypertension
CPT/HCPCS: 36415; 80053; 80061; 83036

== ENCOUNTER → 2024-10-24 | Outpatient (CLI) | payer MEDICARE, OTHER, SELFPAY ==
[2024-10-24 15:42] LABS: Creatinine, Urine (random) 330.00 mg/dL (28.00-217.00); Microalbumin,Random Urine 28.7 mg/L (<20 mg/L)
== END | disposition home or self-care (01) ==
LOC: BIMLAB 13:28
PROVIDERS: PCP Internal Medicine; Referring Provider Internal Medicine; Visit Provider Internal Medicine
DX: E11.9 Type 2 diabetes mellitus without complications (principal)
CPT/HCPCS: 82043; 82570

== ENCOUNTER → 2024-11-03 | Outpatient (CLI) | payer MEDICARE, OTHER, SELFPAY ==
--- NOTE | 2024-11-03 13:45 | BI_ITS ---
EXAM: SCRN MAMM (CAD)W/SIMONA BILAT DATE: 11/03/2024 CLINICAL HISTORY: F, Age 78 y/o , BREST CANCER SCREENING Mother with breast cancer. Remote right excisional breast biopsy. TECHNIQUE: Procedure Code: [id number] Modality: MG Procedure: SCRN MAMM (CAD)W/SIOMNA BILAT COMPARISON: Prior exam(s) dated October 13, 2019 for.. FINDINGS: TISSUE DENSITY: The breasts are extremely dense, which lowers the sensitivity of mammography. Bilateral Breast Mammographic Findings: No significant masses, calcifications or other abnormalities are identified. No suspicious masses, areas of developing architectural distortion, or suspicious calcifications. There has been no significant interval change. BI/SCRN MAMM (CAD)W/SIMONA BILAT IMPRESSION: Stable bilateral screening mammogram. OVERALL FINAL ASSESSMENT BI-RADS 1: NEGATIVE. RECOMMENDATION: Routine annual follow-up in 1 Year A letter with findings and recommendations will be mailed to the patient. Reading Location: [place] [id number]
== END | disposition home or self-care (01) ==
LOC: OPBI 13:06
PROVIDERS: PCP Internal Medicine; Referring Provider Internal Medicine; Visit Provider Internal Medicine
DX: Z12.31 Encounter for screening mammogram for malignant neoplasm of breast (principal); Z80.3 Family history of malignant neoplasm of breast
CPT/HCPCS: 77063; 77067

== ENCOUNTER → 2024-11-21 | Outpatient (CLI) | payer MEDICARE, OTHER, SELFPAY ==
[2024-11-21 17:00] LABS: AST(SGOT) 27 U/L (<=31); Alanine Aminotransfer ALT/SGPT 41 U/L (<=34); Albumin, Serum 4.3 g/dL (3.4-4.8); Alkaline Phosphatase 80 U/L (35-104); Amylase 63 U/L (28-100); Anion Gap 11 (5-15); BUN 33 mg/dL (4-19); BUN/Creat Ratio 36.0 RATIO (10-20); Calcium,Total 9.7 mg/dL (7.6-11.0); Carbon Dioxide 24.6 mmol/L (21.0-32.0); Chloride 105 mmol/L (98-108); Globulin 2.8 g/dL (2.2-4.2); Glucose 120 mg/dL (70-99); Lipase 33 U/L (13-75); Potassium 3.8 mmol/L (3.3-5.1)
== END | disposition home or self-care (01) ==
LOC: LAB 15:42
PROVIDERS: PCP Internal Medicine; Referring Provider Internal Medicine Endocrinology, Diabetes & Metabolism; Visit Provider Internal Medicine Endocrinology, Diabetes & Metabolism
DX: E04.1 Nontoxic single thyroid nodule (principal); E11.9 Type 2 diabetes mellitus without complications
CPT/HCPCS: 36415; 80053; 82150; 83690; 84443; 86376

== ENCOUNTER → 2025-01-19 | Outpatient (CLI) | payer MEDICARE, OTHER, SELFPAY ==
--- NOTE | 2025-01-19 12:55 | US_ITS ---
PROCEDURE: THYROID 01/19/2025 REASON FOR EXAM: THYROID NODULE TECHNIQUE: Procedure Code: USTHY Modality: US Procedure: THYROID COMPARISON: November 24, 2023 FINDINGS: Right thyroid lobe size: 5.0 x 1.5 x 2.1 cm Left thyroid lobe size: 3.8 x 1.3 x 1.1 cm Isthmus: 0.5 cm Background parenchymal echotexture is homogeneous. Nodules: 1. Lobe: Right, Location: Inferior, Size: 2.1 x 1.7 x 1.5 cm, Stability: Smaller Composition: Mixed cystic and solid (+1) Echogenicity: Hyper to Isoechoic (+1) Margin: Smooth (+0) Shape: Wider than tall (+0) Echogenic Foci: None (+0) TI-RADS: 2 2. Lobe: Right, Location: Mid, Size: 0.8 cm, Stability: Minimally larger Composition: Cystic or mostly cystic (+0) Echogenicity: Anechoic (+0) Margin: Smooth (+0) Shape: Wider than tall (+0) Echogenic Foci: None (+0) TI-RADS: 1 US/Thyroid IMPRESSION: Interval decrease in the size of the mixed cystic/solid nodule in the inferior right thyroid lobe. No other suspicious nodule. TI-RADS: 2 RECOMMENDATION: No imaging follow-up indicated. Reading Location: [id number]
== END | disposition home or self-care (01) ==
LOC: US 12:52
PROVIDERS: PCP Internal Medicine; Referring Provider Internal Medicine Endocrinology, Diabetes & Metabolism; Visit Provider Internal Medicine Endocrinology, Diabetes & Metabolism
DX: E04.1 Nontoxic single thyroid nodule (principal)
CPT/HCPCS: 76536

== ENCOUNTER 2025-01-22 18:41 | Emergency (ER) | payer MEDICARE, OTHER, SELFPAY ==
[2025-01-22 18:41] VITALS: BP 141/81; PULSE 95; RESP 16; TEMP 36.6; O2SAT 98; BMI 24.6
[2025-01-22] MEDS: 0.9% Normal Saline (1000mL) 1,000 ML 999 ML IV (19:24)
[2025-01-22 19:27] VITALS: BP 142/62; PULSE 67; RESP 14; TEMP 36.6; O2SAT 99
--- NOTE | 2025-01-22 19:32 | EDS_ITS ---
HPI History of Present Illness Chief Complaint: Abd Pain Narrative Narrative: Chief complaint and HPI: 79-year-old female with past medical history of diverticulitis status post sigmoidectomy, HTN, HLD, DM2 presents for evaluation of left lower quadrant abdominal pain. Onset of symptoms yesterday. States that it worsened tonight with a bowel movement. She denies any fever, chills, nausea, vomiting, dysuria. Review of systems: See HPI Medications: As listed on the chart Allergies: As listed on the chart PFSH: Per chart Vital signs: As listed on the chart. Reviewed. Physical exam: Gen: A&O x3, NAD Head: Normocephalic, atraumatic Eyes: No sclera icterus, conjunctiva clear ENT: Moist mucous membranes CV: RRR, no murmurs Resp: Lungs CTA BL, no w/r/c GI: Abd soft, non-distended, mildly tender to palpation in the left lower quadrant, no r/r/g Musc: Full ROM, no deformity Skin: Warm, dry Psych: Cooperative, appropriate mood and affect PFSH PFSH Medical History Localized swelling, mass and lump, right lower limb Hip swelling Type 2 diabetes mellitus Diabetes Thyroid nodule Neck mass Back pain GERD (gastroesophageal reflux disease) Lumbar radiculopathy Constipation Cough Intermittent palpitations Thyroid disease Palpitation Pain in left araya Low back pain Left hip pain Osteopenia Hyperlipidemia Health care maintenance Carotid artery disease OSCAR (acute kidney injury) Abdominal pain Bilateral impacted cerumen Flu vaccine need Vitamin D deficiency Breast cancer screening GERD (gastroesophageal reflux disease) Essential (primary) hypertension partial sigmoidectomy Thyroid disease Pneumonia Osteoarthritis Hearing problem Glaucoma Back problem Arthritis Seasonal allergies Home Medications ?Medication ?Instructions ?Recorded ?Last Taken ?Type latanoprost 0.005 % eye drops 1 drp ophthalmic (eye) Q DAY 01/28/17 Unknown History blood sugar diagnostic (FreeStyle #90 ea 06/13/21 Unkn own Rx Precision Leonardo Strips) lancets (Accu-Chek Fastclix Lancet #102 ea 09/12/21 Un known Rx Drum) multivitamin 1 tab PO DAILY 07/07/22 Unkn own History cholecalciferol (vitamin D3) 1,250 1,250 mcg PO QWEEK #20 caps 01/01/23 Unknown Rx mcg (50,000 unit) capsule lansoprazole 15 mg capsule,delayed 15 mg PO QHS 30 day s #30 caps 07/29/23 Unknown History release brimonidine 0.2 % eye drops 1 drp ophthalmic (eye) BID 01/05/24 Unknown History atorvastatin 10 mg tablet See Rx Instructions .Route 1 03/23/23 Unknown Rx .COMPLEX #90 tabs metformin 500 mg tablet 500 mg PO BID #180 tabs 04/16 10/10 Unknown Rx aspirin 81 mg tablet,delayed 81 mg PO QDAY #90 tabs Unknown Rx release (Adult Aspirin Regimen) FreeStyle Wilfredo 3 Plus Sensor #6 ea 08/08/24 Unknown R x (blood-glucose sensor) blood-glucose,air director,cont #1 ea 08/08/24 Unknown Rx (FreeStyle Wilfredo 3 [place]) glimepiride 4 mg tablet 4 mg PO BID 3 months #180 ta bs 10/24/24 Unknown Rx Novolog FlexPen U-100 Insulin 100 10 unit (0.1 mL) sub cut TID #15 mL 11/21/24 Unknown Rx unit/mL (3 mL) subcutaneous (insulin aspart U-100) pen needle, diabetic 32 gauge x #50 ea 11/21/24 Unknow n Rx insulin glargine 100 unit/mL (3 10 unit (0.1 mL) subcu t QPM #15 mL 11/28/24 Unknown Rx mL) subcutaneous pen (Basaglar KwikPen U-100 Insulin) losartan 25 mg tablet 12.5 mg (1/2 x 25 mg) PO QDA Y #90 01/09/25 Unknown Rx tabs Allergy/AdvReac Type Severity Reaction Status Date / Time Penicillins Allergy Severe Rash Verified 01/22/25 18:42 grass pollen Allergy Intermediate Unknown Verified 01/22/25 18:42 house dust Allergy Intermediate Unknown Verified 01/22/25 18:42 mold Allergy Intermediate Unknown Verified 01/22/25 18:42 Seasonal Allergies: Uncoded Allergy Intermediate NEEDS Verified 01/22/25 18:42 FOLLOW-UP Sulfa (Sulfonamide Allergy Unknown Swelling Verified 01/22/25 18:42 Antibiotics) neomycin Allergy edeema, Verified 01/22/25 18:42 skin reaction lisinopril AdvReac cough Verified 01/22/25 18:42 Family History Mother Breast cancer Diabetes Father Thyroid disorder Cancer Grandfather CVA (cerebral vascular accident) Surgical History S/P laparoscopic fundoplication Normal colonoscopy History of right breast biopsy Social History Smoking Status: Never smoker second hand exposure: No alcohol intake: current alcohol intake frequency: holidays/special occasions only substance use type: does not use caffeine: Yes Type: coffee Number of servings: 1 what type of physical activity do you participate in: none EXAM Physical Exam Const Vital Signs: 01/22/25 18:41 01/22/25 19:27 01/22/25 20:41 Temperature 97.8 F 97.8 F Temperature Source Oral Oral Pulse Rate 95 67 70 Respiratory Rate 16 14 14 Blood Pressure 141/81 H 142/62 H 135/64 H Blood Pressure Mean 101 88 87 Pulse Ox 98 99 100 Oxygen Delivery Method Room Air Room Air Room Air 01/22/25 21:00 01/22/25 22:00 Temperature 97.9 F 97.9 F Temperature Source Oral Oral Pulse Rate 70 89 Respiratory Rate 18 18 Blood Pressure 134/55 H 142/72 H Blood Pressure Mean 81 95 Pulse Ox 99 100 Oxygen Delivery Method Room Air Room Air MDM MDM MDM Narrative Medical decision making narrative: 79-year-old female with past medical history of diverticulitis status post sigmoidectomy, HTN, HLD, DM2 presents for evaluation of left lower quadrant abdominal pain. Onset of symptoms yesterday. States that it worsened tonight with a bowel movement. She denies any fever, chills, nausea, vomiting, dysuria. Differential diagnosis includes but is not limited to diverticulitis, colitis, UTI, gastroenteritis, urolithiasis. NS bolus ordered. Patient declined pain medicine. Laboratory workup ordered including CT abdomen and pelvis. CBC unremarkable. CMP shows dehydration with OSCAR. Creatinine is 1.35. Patient has hyperglycemia of 189. Patient is a known diabetic. No transaminitis. Lipase unremarkable. UA positive for ketones which is consistent with dehydration as well as blood. She has leuk esterase but negative nitrates, WBCs. +1 bacteria. Urine culture sent. Findings are concerning for possible stone. CT abdomen pelvis shows punctate 1 mm mid left ureteral calculus with upstream mild hydroureteronephrosis. On reevaluation, patient states her pain is controlled. Given her OSCAR, I did reach out to urology, Dr. Wyatt. She was made aware of all of the findings including laboratory workup. She is comfortable with the patient discharging home antibiotics and following up outpatient. She was made aware that patient cannot swallow pills and therefore will not be able to be discharged home on Flomax as you cannot crush this. She has an allergy to penicillin but states she has tolerated Keflex in the past. I did call pharmacy and you are able to open the capsule and take the medication therefore will prescribe Keflex. First dose given here. Patient was offered home narcotics but declined. Educated her on keeping up with fluid hydration as well as Tylenol and Motrin as needed for pain. Strict return precautions. She confirmed understand the plan. Patient stable to discharge home. I will give her an outpatient lab to have her kidney function rechecked. Impression: 1. Left urolithiasis 2. Dehydration with OSCAR Lab Data Labs: Laboratory Results - last 24 hr 01/22/25 01/22/25 19:20 20:09 WBC 10.0 RBC 4.75 Hgb 13.6 Hct 42.6 MCV 89.7 MCH 28.6 MCHC 31.9 L RDW Std Deviation 45.1 H RDW Coeff of Christen 13.7 Plt Count 210 MPV 10.4 Immature Gran % (Auto) 0.600 Neut % (Auto) 81.7 H Lymph % (Auto) 11.0 L Evangeline % (Auto) 6.3 Eos % (Auto) 0.1 Baso % (Auto) 0.3 Absolute Neuts (auto) 8.2 H Absolute Lymphs (auto) 1.10 Nucleated RBC % 0 Sodium 139 Potassium 4.5 Chloride 103 Carbon Dioxide 22.3 Anion Gap 14 BUN 29 H Creatinine 1.35 H Estim Creat Clear Calc 33.40 L Est GFR (MDRD) Non-Af 40 L BUN/Creatinine Ratio 21.8 H Glucose 189 H Calcium 9.8 Total Bilirubin 0.54 AST 21 ALT 24 Alkaline Phosphatase 86 Total Protein 7.5 Albumin 4.2 Globulin 3.2 Albumin/Globulin Ratio 1.3 Lipase 26 Urine Color Yellow Urine Clarity Clear Urine pH 5.0 Ur Specific [place] 1.025 Urine Protein 15 H Urine Glucose (UA) Normal Urine Ketones 50 H Urine Occult Blood 250 H Urine Nitrite Negative Urine Bilirubin Negative Urine Urobilinogen Normal Ur Leukocyte Esterase 25 H Urine RBC 10-25 SEEN Urine WBC 0-5 SEEN Ur Squamous Epith Cells 0 SEEN Urine Bacteria 1+ Urine Mucus 0 SEEN Radiography Diagnostic Testing: Clinical Impression(s) from Imaging Studies Abdomen/Pelvis CT 01/22/25 20:30 IMPRESSION: Punctate 1 mm mid left ureteral calculus with upstream mild hydroureteronephrosis. Reading Location: [facility] Discharge Plan Triage Chief Complaint: Abd Pain ED Provider: Myron Centeno Dx/Rx/DC Orders Prescriptions: No Action latanoprost 0.005 % drops 1 drp OPHTHALMIC QDAY lansoprazole 15 mg capsule,delayed release(DR/EC) 15 mg PO QHS 30 Days Qty: 30 (DME) FreeStyle Precision Leonardo Strips Strip See Rx Instructions .ROUTE .MEDSUPPLY Qty: 90 11RF Rx Instructions: 3x/day brimonidine 0.2 % drops 1 drp ophthalmic (eye) BID (DME) lancets [Accu-Chek Fastclix Lancet Drum] Misc See Rx Instructions .Route Qty: 102 6RF Rx Instructions: 3 times daily multivitamin Tablet 1 tab PO DAILY cholecalciferol (vitamin D3) 1,250 mcg (50,000 unit) capsule 1,250 mcg PO QWEEK Qty: 20 3RF (DME) FreeStyle Wilfredo 3 [place] Misc See Rx Instructions .Route Qty: 1 0RF Rx Instructions: As directed (DME) FreeStyle Wilfredo 3 Plus Sensor Device See Rx Instructions .Route Qty: 6 3RF Rx Instructions: As directed aspirin [Adult Aspirin Regimen] 81 mg tablet,delayed release (DR/EC) 81 mg PO QDAY Qty: 90 3RF insulin aspart U-100 [Novolog FlexPen U-100 Insulin] 100 unit/mL (3 mL) insulin pen 10 unit subcut TID Qty: 15 6RF (DME) pen needle, diabetic 32 gauge x 5/32 needle See Rx Instructions .ROUTE .MEDSUPPLY Qty: 50 4RF Rx Instructions: 4 times daily atorvastatin 10 mg tablet See Rx Instructions .ROUTE .COMPLEX Qty: 90 3RF Dose Instruction: TAKE 1 TABLET BY MOUTH EVERY DAY Rx Instructions: TAKE 1 TABLET BY MOUTH EVERY DAY metformin 500 mg tablet 500 mg PO BID Qty: 180 1RF glimepiride 4 mg tablet 4 mg PO BID 90 Days Qty: 180 3RF insulin glargine [Basaglar KwikPen U-100 Insulin] 100 unit/mL (3 mL) insulin pen 10 unit subcut QPM Qty: 15 5RF losartan 25 mg tablet 12.5 mg PO QDAY Qty: 90 3RF Primary Care Provider: Naren Thorne Referrals: Naren Thorne MD [Primary Care Provider, Internal Medicine] Print Language: Upper Sorbian
[2025-01-22 19:34] LABS: Hematocrit 42.6 % (37-47); Hemoglobin 13.6 g/dL (12.0-15.0); Immature Granulocytes Count 0.060 X10^3/uL (0.0-0.0); Mean Corp Hgb Conc 31.9 g/dL (32-36); Mean Corpuscular Volume 89.7 fL (81-99); Mean Platelet Vol. 10.4 fl (6.2-12.0); NRBC Flagged by Analyzer 0 % (0-5); Platelet Count 210 K/mm3 (150-450); RBC Distribution Width CV 13.7 % (11.6-14.6); RBC Distribution Width SD 45.1 fl (35.1-43.9); Red Blood Count 4.75 M/mm3 (4.2-5.4); White Blood Count 10.0 K/mm3 (4.4-11.0)
--- OUTSIDE RECORDS SUMMARY | 2025-01-22 19:34 | XMS RPT_ITS | CCD ---
Author Organization [facility] [place] [facility] Care Team Providers Care Controlled Atmospheric [employer]ace Brazer Name Role Phone Dr. Lena Thorne Primary Care Provider [phone] Dr. Lena Thorne Attending Provider [phone] Dr. Lena Thonre Referring Provider [phone] LIVIA Ni Attending Provider Dr. Alexandro Luciano Attending Provider Dr. Lena Thorne Primary Care Provider [phone] Dr. Lena Thorne Attending Provider [phone] Dr. Lena Thorne Referring Provider [phone] LIVIA Ni Attending Provider LIVIA Masters NP Referring Provider [phone] Dr. Sylvester Bhakta Attending Provider Dr. Lena Thorne Primary Care Provider [phone] Dr. Lena Thorne Attending Provider [phone] Dr. Lena Thorne Referring Provider [phone] Dr. Sylvester Bhakta Attending Provider Dr. Lena Thorne Primary Care Provider [phone] Dr. Lena Thorne Attending Provider [phone] Dr. Lena Thorne Referring Provider [phone] Dr. Sylvester Bhakta Attending Provider Dr. Lena Thorne Primary Care Provider [phone] Dr. Lena Thorne Attending Provider [phone] Dr. Lena Thorne Referring Provider [phone] Lena Thorne Primary Care Provider Chandana Batista Unavailable Meir RN, Autumn Unavailable Unavailable Rabia, Vitor Unavailable Chandana Batista MD Unavailable LENA THORNE Primary Care Unavailable Discontinued 1 MG SC EVERY WEEK March 10, 2022 2:27pm July 15, 2022 1:41pm Start: 03-10-2022 End: 07-15-2022 Semaglutide (Ozempic) 1 mg/d ose (4 mg/3 mL) pen injector Discontinued 1 MG SC EVERY WEEK March 10, 2022 3:27pm July 15, 2022 2:41pm Start: 08-15-2021 End: 03-10-2022 Semaglutide (Ozempic) 1 mg/d ose (4 mg/3 mL) pen injector Discontinued 1 mg SC EVERY WEEK 10 17August 15, 2021 12:00am March 10, 2022 3:27pm Start: 08-15-2021 End: 03-10-2022 Semaglutide (Ozempic) 1 mg/d ose (4 mg/3 mL) pen injector Discontinued 1 mg SC EVERY WEEK August 15, 2021 12:00am March 10, 2022 3:27pm Start: 08-15-2021 End: 03-10-2022 Semaglutide (Ozempic) 1 mg/d ose (4 mg/3 mL) pen injector Discontinued 1 MG SC EVERY WEEK August 14, 2021 11:00pm March 10, 2022 2:27pm Start: 08-15-2021 End: 03-10-2022 Semaglutide (Ozempic) 1 mg/d ose (4 mg/3 mL) pen injector Discontinued 1 MG SC EVERY WEEK August 15, 2021 12:00am March 10, 2022 3:27pm Start: 08-15-2021 Semaglutide (O zempic) 1 mg/dose (4 mg/3 mL) pen injector Active 1 MG SC EVERY WEEK August 15, 2021 12:00am Semaglutide (OZEMPIC, 1 MG/DOSE, SC) (8 sources) End: 08-25-2023 inject 1 mg by subcutaneous injection every week Semaglutide (OZEMPIC, 1 MG/DOSE, SC) Inject 1 mg under the skin 1 (one) time per week. 08/25/2023 Discontinued (Stop taking at discharge) inject 1 mg by subcu taneous injection every week Semaglutide (OZEMPIC, 1 MG/DOSE, SC) Inject 1 mg under the skin 1 (one) time per week. Active SITagliptin 100 mg oral tablet (20 sources) Dipeptidyl Peptidase 4 Inhibitor Start: 01-28-2017 End: 03-30-2019 take 1 tablet by mouth once daily Sitagliptin Phosphate (Januvia) 100 mg tablet Discontinued 0 .ROUTE .COMPLEX 90 1 December 17, 2018 3:29pm March 30, 2019 2:24pm TAKE 1 TABLET BY MOUTH EVERY DAY 5 ml sodium chloride 9 mg/ml injection (15 sources) Start: 09-09-2023 End: 09-10-2023 10 mL, IntraVENous, Every 12 hours scheduled (2 times per day), First dose on Thu09/09/23 at 2100, Phase II/On Unit Start: 09-09-2023 End: 09-10-2023 Start: 09-09-2023 End: 09-10-2023 Start: 08-21-2023 End: 08-22-2023 take 100 mL intravenously every hour 100 mL/hr, IntraVENous, Continuous, Starting on Thu08/21/23 at 2200, For 1 day Start: 08-20-2023 End: 08-20-2023 1,000 mL, IntraVENous, at 1, 000 mL/hr, Administer over 1 Hours, Once, On Thu08/20/23 at 0950, For 1 dose Start: 08-04-2023 End: 08-04-2023 take 100 mL intravenously every hour 100 mL/hr, IntraVENous, Continuous, Starting on Thu08/04/23 at 1000, Preprocedure Problems Active Problems Problem Classification Problem Date Documented Da te Episodic/Chronic Abdominal hernia (20 sources) Hiatal hernia; Translations: [Diaphragmatic hernia without obstruction or gangrene] Onset: 4 06-26-2023 Episodic Abdominal pain (20 sources) Abdominal pain; Translations: [Unspecified abdominal pain] Onset: 4 Episodic Acute and unspecified renal failure (20 sources) Injury of kidney; Translations: [Acute kidney failure, unspecified] Onset: 4 05-23-2021 Episodic Cardiac dysrhythmias (20 sources) Palpitations; Translations: [Palpitations] Onset: 4 08-20-2017 Episodic Diabetes mellitus with complications (1 source) Type 2 diabetes mellitus with hyperglycemia; Translations: [Type 2 diabetes mellitus with hyperglycemia] Onset: 5 Chronic Diabetes mellitus without complication (20 sources) Type 2 diabetes mellitus; Translations: [Type 2 diabetes mellitus without complications] Onset: 3 Chronic Disorders of lipid metabolism (20 sources) Hyperlipidemia; Translations: [Hyperlipidemia, unspecified] Onset: 4 07-07-2022 Chronic Diverticulosis and diverticulitis (20 sources) Diverticulitis of large intestine without perforation or abscess without bleeding; Translations: [Diverticulitis of colon (without mention of hemorrhage)] Onset: 1 06-02-2023 Chronic Esophageal disorders (20 sources) Gastroesophageal reflux disease; Translations: [Gastro-esophageal reflux disease without esophagitis] Onset: 4 Chronic Essential hypertension (20 sources) Essential hypertension; Translations: [Essential (primary) hypertension] Onset: 4 Chronic Gastritis and duodenitis (20 sources) Chronic superficial gastritis; Translations: [Chronic superficial gastritis without bleeding] Onset: 4 08-04-2023 Chronic Immunizations and screening for infectious disease (20 sources) Needs influenza immunization; Translations: [Encounter for immunization] Onset: 5 12-06-2020 Episodic Mycoses (1 source) Candidiasis of mouth; Translations: [Candidal stomatitis] 09-25-2023 Episodic Nutritional deficiencies (20 sources) Vitamin D deficiency; Translations: [Vitamin D deficiency, unspecified] Onset: 4 09-06-2020 Chronic Occlusion or stenosis of precerebral arteries (9 sources) Carotid artery stenosis; Translations: [Occlusion and stenosis of unspecified carotid artery] Onset: 5 07-21-2024 Chronic Osteoarthritis (10 sources) Osteoarthritis; Translations: [Unspecified osteoarthritis, unspecified site] 10-24-2024 Chronic Other aftercare (2 sources) Postoperative visit; Translations: [Encounter for other specified surgical aftercare] 09-25-2023 Episodic Other and ill-defined heart disease (15 sources) Diastolic dysfunction; Translations: [Other ill-defined heart diseases] 07-19-2024 Chronic Other and ill-defined heart disease (1 source) Other ill-defined heart diseases; Translations: [Other ill-defined heart diseases] Onset: 5 Chronic Other bone disease and musculoskeletal deformities (20 sources) Osteopenia; Translations: [Other specified disorders of bone density and structure, unspecified site] Onset: 4 01-01-2023 Episodic Other bone disease and musculoskeletal deformities (1 source) Other specified disorders of bone density and structure, unspecified site; Translations: [Disorder of bone and cartilage, unspecified] 01-01-2023 Episodic Other circulatory disease (20 sources) Disorder of carotid artery; Translations: [Disorder of arteries and arterioles, unspecified] Onset: 4 06-13-2021 Chronic Other circulatory disease (3 sources) Disorder of arteries and arterioles, unspecified; Translations: [Unspecified disorders of arteries and arterioles] Onset: 5 Chronic Other connective tissue disease (10 sources) Pain in left lower limb; Translations: [Pain in left lower leg] 05-27-2023 Episodic Other connective tissue disease (1 source) Pain in left lower leg; Translations: [Pain in limb] 05-27-2023 Episodic Other ear and sense organ disorders (20 sources) Impacted cerumen; Translations: [Impacted cerumen, bilateral] Onset: 4 03-13-2021 Episodic Other ear and sense organ disorders (3 sources) Impacted cerumen, bilateral; Translations: [Impacted cerumen] Episodic Other ear and sense organ disorders (5 sources) Impacted cerumen of bilateral ears; Translations: [Impacted cerumen, bilateral] 03-13-2021 Episodic Other gastrointestinal disorders (11 sources) Constipation; Translations: [Constipation, unspecified] 08-20-2023 Episodic Other lower respiratory disease (20 sources) Cough; Translations: [Cough] Onset: 4 10-09-2017 Episodic Other non-traumatic joint disorders (20 sources) Hip pain; Translations: [Pain in left hip] Onset: 4 05-27-2023 Episodic Other non-traumatic joint disorders (1 source) Pain in left hip; Translations: [Pain in joint, pelvic region and thigh] 05-27-2023 Episodic Other screening for suspected conditions (not mental disorders or infectious disease) (18 sources) Patient encounter status; Translations: [Encounter for other screening for malignant neoplasm of breast] Onset: 5 09-06-2020 Episodic Other skin disorders (9 sources) Mass of neck; Translations: [Localized swelling, mass and lump, neck] 10-05-2023 Episodic Spondylosis; intervertebral disc disorders; other back problems (20 sources) Low back pain; Translations: [Low back pain] Onset: 4 05-27-2023 Episodic Thyroid disorders (20 sources) Thyroid nodule; Translations: [Nontoxic single thyroid nodule] Onset: 5 11-16-2023 Chronic Comment on above: 2 cm TR2 nodule Thyroid disorders (20 sources) Disorder of thyroid gland; Translations: [Disorder of thyroid, unspecified] Onset: 4 08-20-2017 Episodic Unclassified (2 sources) Post-op; Translations: [Post-op] Onset: 4 Unclassified (2 sources) New Patient; Translations: [New Patient] Onset: 4 Past or Other Problems Problem Classification Problem Date Documented Da te Episodic/Chronic Conditions associated with dizziness or vertigo (20 sources) Dizziness and giddiness; Translations: [Dizziness and giddiness] Onset: 07-29-2023 08-21-2023 Episodic Nausea and vomiting (4 sources) Nausea and vomiting; Translations: [Nausea with vomiting, unspecified] Onset: 08-21-2023 08-21-2023 Episodic Other aftercare (1 source) 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; Translations: [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 insulin] Onset: 04-05-2024 Episodic Other gastrointestinal disorders (14 sources) H/O: abdominal hernia; Translations: [Personal history of other diseases of the digestive system] Onset: 09-08-2023 Resolved: 09-08-2023 09-08-2023 Episodic Other gastrointestinal disorders (2 sources) Constipation, unspecified; Translations: [Constipation, unspecified] Onset: 08-20-2023 Episodic Unclassified (17 sources) abnormal thyroid labs 08-20-2017 Unclassified (13 sources) partial sigmoidectomy 09-14-2021 Results Test Name Value Interpretation Reference Range Facility Office Visit Reporton 2024 Office Visit Report [facility] [address] [place] [address] OFFICE VISIT Date of Service: 11/29/24 MR#: [id number] Acct: [id number] Patient: SHEYLA RAMIREZ Rep #: [id number] : 1945 Provider: THERESA NURSE Age/Sex: 79/F [place] [facility] [place] Status: Signed Intake Vital Signs 11/21/24 14:24 Height 5 ft 7 in Weight: 157 lb 8 oz BMI 24.6 BP 127/77 H Blood Pressure Location Lt brachial Position Sitting Pulse 70 Pulse Source Monitor Pulse Oximetry (%) 96 Oxygen Delivery Method room air Intake Visit Reasons: flu shot Chief Complaint: flu shot Fiscal Officer Required: No Accompanied by: Self Is patient in pain?: No Allergies Penicillins Allergy (Severe, Verified 11/29/24 13:06) Rash grass pollen Allergy (Intermediate, Verified 11/29/24 13:06) Unknown house dust Allergy (Intermediate, Verified 11/29/24 13:06) Unknown mold Allergy (Intermediate, Verified 11/29/24 13:06) Unknown Seasonal Allergies: Uncoded Allergy (Intermediate, Verified 11/29/24 13:06) NEEDS FOLLOW-UP Sulfa (Sulfonamide Antibiotics) Allergy (Unknown, Verified 11/29/24 13:06) Swelling neomycin Allergy (Verified 11/29/24 13:06) edeema, skin reaction lisinopril Adverse Reaction (Verified 11/29/24 13:06) cough Medications ???Medication ???Instructions ???Recorded ???Confirmed ???Type latanoprost 0.005 % eye drops 1 drp ophthalmic (eye) QDAY 11/29/24 History blood sugar diagnostic (FreeStyle #90 ea 06/13/21 11/29/24 Rx Precision Leonardo Strips) lancets (Accu-Chek Fastclix Lancet #102 ea 09/12/21 11/29/24 Rx Drum) multivitamin 1 tab PO DAILY 07/07/22 11/29/24 H istory cholecalciferol (vitamin D3) 1,250 1,250 mcg PO QWEEK #20 caps 12/1711/29/24 Rx mcg (50,000 unit) capsule lansoprazole 15 mg capsule,delayed 15 mg PO QHS 30 days #30 caps 11/29/24 History release brimonidine 0.2 % eye drops 1 drp ophthalmic (eye) BID 4 11/29/24 History atorvastatin 10 mg tablet See Rx Instructions .Route 4 11/29/24 Rx .COMPLEX #90 tabs losartan 25 mg tablet 12.5 mg (1/2 x 25 mg) PO QDAY #90 03/09/24 11/29/24 Rx tabs metformin 500 mg tablet 500 mg PO BID #180 tabs 05/03/24 1 Rx aspirin 81 mg tablet,delayed 81 mg PO QDAY #90 tabs 07/19/24 Rx release (Adult Aspirin Regimen) FreeStyle Wilfredo 3 Plus Sensor #6 ea 08/08/24 11/29/24 Rx (blood-glucose sensor) blood-glucose,receiv er,cont #1 ea 08/08/24 11/29/24 Rx (FreeStyle Wilfredo 3 Trimble) glimepiride 4 mg tablet 4 mg PO BID 3 months #180 tabs 10/1011/29/24 Rx Novolog FlexPen U-100 Insulin 100 10 unit (0.1 mL) subcut TID #15 m L 11/21/24 11/29/24 Rx unit/mL (3 mL) subcutaneous (insulin aspart U-100) pen needle, diabetic 32 gauge x #50 ea 11/21/24 11/29/24 Rx 5/32 insulin glargine 100 unit/mL (3 10 unit (0.1 mL) subcut QPM #15 mL 11/28/24 11/29/24 Rx mL) subcutaneous pen (Basaglar KwikPen U-100 Insulin) Have you fallen in the past year?: No Nurse's Note: flu immunization given parker patient tolerated well Immunizations Fluad 65yr up(PF)45 mcg(15 mcgx3)/0.5 mL intramuscular syringe Performing Provider: LIVIA Mackey Performing Location: [facility] Administered by: Amy Simpson on 11/29/24 13:09 Dose Route Admin Location Dispensed Lot Number Expiration Date Package NDC NDC Radiator Tester 45 mcg IM Left Arm (SQ) 0.5 mL [id number] 06/13/25 80542-413-79 [id number] S [employer] VIS Given Date VIS Provided VIS Publication Date 11/29/24 Single Vaccine 24 Eligibility Eligibility Date Funding Source Not Applicable Administration Comments: parker injection patient tolerated well Assessment and Plan Assessment and Plan Orders: Orders Influenza Immunization 11/29/24 Z23 - Encounter for immunization Clinical Quality Measures Falls Risk Screening/Assistive Devices Have you fallen in the past year?: No 12/09/24 1655 Date Angelica BHAKTA Cosigner Signature: Date (if applicable) CC: Normal [facility] Thyroid Peroxidase ABon 10-0 THYR PEROX AB < 9 Normal 0-34 [facility] Comment on above: Result Comment: Perf ormed at: CB - [facility] [address] [id number] Car Trimmer: Chandana Turner PhD, Phone: [phone] Performed By: #### L 068.4597, L047.7850 #### [facility] [address] [place], [address] Amylaseon 11-21-2024 KELLI 63 U/L Normal 28-100 [facility] Comment on above: Performed By: #### L 501.2400, L501.2450, L501.9520, L500.4050, L3300.6900 #### [facility] [address] [place], [address] Anion gap in Serum or Plasma Ordered By: Sylvester Bhakta on 11-21-2024 Anion gap [Moles/Vol] 11 mmol/L - [facility] BUN/creatinine ratioOrdered By: Sylvester Bhakta on 11-21-2024 Urea nitrogen/Creatinine [Mass ratio] 36.0 mg/mg High - [facility] Bilirubin, totalOrdered By: Sylvester hBakta on 11-21-2024 Bilirubin [Mass/Vol] 0.27 mg/dL Normal 0.00-1.30 [facility] Comment on above: Performed By: #### L 501.2400, L501.2450, L501.9520, L500.4050, L3300.6900 #### [facility] [address] [place], [address] Carbon dioxide, total [Moles /volume] in Central venous bloodOrdered By: Sylvester Bhakta on 11-21-2024 CO2 [Moles/Vol] 24.6 mmol/L Normal 21.0-32.0 [facility] Comment on above: Performed By: #### L 501.2400, L501.2450, L501.9520, L500.4050, [id number] #### [facility] [address] [place], [address] Chloride assayOrdered By: Dhiraj Bhakta on 11-21-2024 Chloride [Moles/Vol] 105 mmol/L Normal 98-108 [facility] Comment on above: Performed By: #### L 501.2400, L501.2450, L501.9520, L500.4050, L3300.6900 #### [facility] [address] [place], [address] Comprehensive Metabolic Prof ilon 11-21-2024 ALK PHOS 80 U/L Normal 35-104 [facility] Comment on above: Performed By: #### L 501.2400, L501.2450, L501.9520, L500.4050, [id number] #### [facility] [address] [place], [address] BUN/CRE 36.0 RATIO High 10-20 [facility] Comment on above: Performed By: #### L 501.2400, L501.2450, L501.9520, L500.4050, [id number] #### [facility] [address] [place], [address] GAP 11 Normal 5-15 [facility] Comment on above: Performed By: #### L 501.2400, L501.2450, L501.9520, L500.4050, [id number] #### [facility] [address] [place], [address] Potassium [Moles/Vol] 3.8 mmol/L Normal 3.3-5.1 [facility] Comment on above: Performed By: #### L 501.2400, L501.2450, L501.9520, L500.4050, L3300.6900 #### [facility] [address] [place], [address] T PROT 7.1 g/dL Normal 5.9-8.4 [facility] Comment on above: Performed By: #### L 501.2400, L501.2450, L501.9520, L500.4050, L3300.6900 #### [facility] [address] [place], [address] Comprehensive Metabolic Prof ilOrdered By: Sylvester Bhakta on 11-21-2024 AST [Catalytic activity/Vol] 27 U/L Normal <=31 [facility] Comment on above: Performed By: #### L 501.2400, L501.2450, L501.9565, L500.4050, L3300.6900 #### [facility] [address] [place], [address] Endocrinology Visit Reporton 11-21-2024 Endocrinology Visit Report [facility] [address] [place] [address] OFFICE VISIT Date of Service: 11/21/24 MR#: [id number] Acct: [id number] Name: SHEYLA RAMIREZ Rep #: [id number] : 1945 Provider: Omar Miller Age/Sex: 79/F [place] [facility] [place]: Signed Intake Vital Signs 08/04/24 14:20 10/24/24 12:59 11/21/24 14:24 Height 5 ft 7 in 5 ft 7 in 5 ft 7 in Weight: 158 lb 157 lb 8 oz BMI 24.7 24.6 BP 128/60 H 127/77 H Blood Pressure Location Lt brachial Lt brachial Position Sitting Sitting Respiration 18 Pulse 85 70 Pulse Source Monitor Monitor Temp 96.8 F L Temp Source Temporal Pulse Oximetry (%) 97 96 Oxygen Delivery Method room air room air Intake Visit Reasons: 4 M FU Chief Complaint: Diabetes Is patient in pain?: No Allergies Penicillins Allergy (Severe, Verified 11/21/24 14:30) Rash grass pollen Allergy (Intermediate, Verified 11/21/24 14:30) Unknown house dust Allergy (Intermediate, Verified 11/21/24 14:30) Unknown mold Allergy (Intermediate, Verified 11/21/24 14:30) Unknown Seasonal Allergies: Uncoded Allergy (Intermediate, Verified 11/21/24 14:30) NEEDS FOLLOW-UP Sulfa (Sulfonamide Antibiotics) Allergy (Unknown, Verified 11/21/24 14:30) Swelling neomycin Allergy (Verified 11/21/24 14:30) edeema, skin reaction lisinopril Adverse Reaction (Verified 11/21/24 14:30) cough Medications ???Medication ???Instructions ???Recorded ???Confirmed ???Type latanoprost 0.005 % eye drops 1 drp ophthalmic (eye) QDAY 11/21/24 History blood sugar diagnostic (FreeStyle #90 ea 06/13/21 11/21/24 Rx Precision Leonardo Strips) lancets (Accu-Chek Fastclix Lancet #102 ea 09/12/21 11/21/24 Rx Drum) multivitamin 1 tab PO DAILY 07/07/22 11/21/24 H istory cholecalciferol (vitamin D3) 1,250 1,250 mcg PO QWEEK #20 caps 12/1711/21/24 Rx mcg (50,000 unit) capsule lansoprazole 15 mg capsule,delayed 15 mg PO QHS 30 days #30 caps 11/21/24 History release brimonidine 0.2 % eye drops 1 drp ophthalmic (eye) BID 4 11/21/24 History atorvastatin 10 mg tablet See Rx Instructions .Route 4 11/21/24 Rx .COMPLEX #90 tabs losartan 25 mg tablet 12.5 mg (1/2 x 25 mg) PO QDAY #90 03/09/24 11/21/24 Rx tabs metformin 500 mg tablet 500 mg PO BID #180 tabs 05/03/24 1 Rx aspirin 81 mg tablet,delayed 81 mg PO QDAY #90 tabs 07/19/24 Rx release (Adult Aspirin Regimen) FreeStyle Wilfredo 3 Plus Sensor #6 ea 08/08/24 11/21/24 Rx (blood-glucose sensor) blood-glucose,receiv er,cont #1 ea 08/08/24 11/21/24 Rx (FreeStyle Wilfredo 3 Trimble) glimepiride 4 mg tablet 4 mg PO BID 3 months #180 tabs 10/1011/21/24 Rx Novolog FlexPen U-100 Insulin 100 10 unit (0.1 mL) subcut TID #15 m L 11/21/24 11/21/24 Rx unit/mL (3 mL) subcutaneous (insulin aspart U-100) Tresiba FlexTouch U-100 100 5 unit (0.05 mL) subcut QDAY #15 m L 11/21/24 11/21/24 Rx unit/mL (3 mL) subcutaneous pen (insulin degludec) pen needle, diabetic 32 gauge x #50 ea 11/21/24 11/21/24 Rx Have you fallen in the past year?: No PFS Medical History (Updated 11/22/24 @ 07:[address] Sylvester Bhakta MD) Type 2 diabetes mellitus Diabetes Thyroid nodule Neck mass Back pain GERD (gastroesophageal reflux disease) Lumbar radiculopathy Constipation Cough Intermittent palpitations Thyroid disease Palpitation Pain in left araya Low back pain Left hip pain Osteopenia Hyperlipidemia Health care maintenance Carotid artery disease OSCAR (acute kidney injury) Abdominal pain Bilateral impacted cerumen Flu vaccine need Vitamin D deficiency Breast cancer screening GERD (gastroesophageal reflux disease) Essential (primary) hypertension partial sigmoidectomy Thyroid disease Pneumonia Osteoarthritis Hearing problem Glaucoma Back problem Arthritis Seasonal allergies Surgical History S/P laparoscopic fundoplication Normal colonoscopy History of right breast biopsy Family History Mother Breast cancer Diabetes Father Thyroid disorder Cancer Grandfather CVA (cerebral vascular accident) Social History Smoking Status: Never smoker second hand exposure: No alcohol intake: current alcohol intake frequency: holidays/special occasions only substance use type: does not use caffeine: Yes Type: coffee Number of servings: 1 what type of physical activity do you participate in: none HPI HPI Chief Complaint: Diabetes Details: SHEYLA RAMIREZ, is a 79 F who presents to the office today for follow up. A1C is 7.3% She is takin (more content not included)... Normal [facility] Glomerular filtration rate ( GFR) estimation/1.73 sq m using serum, plasma, or whole bOrdered By: Sylvester Bhakta on 11-21-2024 GFR/1.73 sq M.predicted among non-blacks MDRD (S/P/Bld) [Vol rate/Area] 65 mL/min/{1.73_m2} Normal >60 [facility] Comment on above: mL/min/1.73m2 CKD-EP I Creatinine Equation (2020) Result Comment: mL/m in/1.73m2 CKD-EPI Creatinine Equation (2020) Performed By: #### L 501.2400, L501.2450, L501.9520, L500.4050, L3300.6900 #### [facility] [address] [place], [address] Lipase measurementOrdered By : Sylvester Bhakta on 11-21-2024 Lipase [Catalytic activity/Vol] 33 U/L Normal 13-75 [facility] Comment on above: Please note:LIPASE r evised reference range effective 22. New Lipase methodology. Expected to produce lower values than the previous assay method. NEW Reference Range: 13 - 75 U/L Result Comment: Brendon rae note: LIPASE revised reference range effective 22. New Lipase methodology. Expected to produce lower values than the previous assay method. NEW Reference Range: 13 - 75 U/L Performed By: #### L 501.2400, L501.2450, L501.9520, L500.4050, L3300.6900 #### [facility] [address] [facility] [place], [address] Potassium measurement (mass/ volume)Ordered By: Sylvester Bhakta on 11-21-2024 Potassium (Unsp spec) [Mass/Vol] 3.8 mmol/L 3.3-5.1 [facility] Serum creatinine measurement (mass/volume)Ordered By: Sylvester Bhakta on 11-21-2024 Creatinine [Mass/Vol] 0.91 mg/dL Normal 0.70-1.20 [facility] Comment on above: Performed By: #### L 501.2400, L501.2450, L501.9520, L500.4050, L3300.6900 #### [facility] [facility] [address] [place], [address] Serum globulin measurementOr dered By: Sylvester Bhakta on 11-21-2024 Globulin (S) [Mass/Vol] 2.8 g/dL Normal 2.2-4.2 [facility] Comment on above: Performed By: #### L 501.2400, L501.2450, L501.9520, L500.4050, L3300.6900 #### [facility] [address] [place], [address] Serum glucose measurement (m ass/volume)Ordered By: Sylvester Bhakta on 11-21-2024 Glucose [Mass/Vol] 120 mg/dL High 70-99 [facility] Comment on above: Performed By: #### L 501.2400, L501.2450, L501.9520, L500.4050, L3300.6900 #### [facility] [address] [place], [address] Serum or plasma alanine danielson otransferase (ALT) measurementOrdered By: Sylvester Bhakta on 11-21-2024 ALT [Catalytic activity/Vol] 41 U/L High <=34 [facility] Comment on above: Performed By: #### L 501.2400, L501.2450, L501.9520, L500.4050, L3300.6900 #### [facility] [address] [place], [address] Serum or plasma albumin brice urement (mass/volume)Ordered By: Sylvester Bhakta on 11-21-2024 Albumin [Mass/Vol] 4.3 g/dL Normal 3.4-4.8 [facility] Comment on above: Performed By: #### L 501.2400, L501.2450, L501.9520, L500.4050, L3300.6900 #### [facility] [address] [place], [address] Serum or plasma albumin/glob ulin mass ratioOrdered By: Sylvester Bhakta on 11-21-2024 Albumin/Globulin [Mass ratio] 1.5 {ratio} Normal 0.9-2.4 [facility] Comment on above: Performed By: #### L 501.2400, L501.2450, L501.9520, L500.4050, L3300.6900 #### [facility] [address] [place], [address] Serum or plasma alkaline jeannie sphatase measurementOrdered By: Sylvester Bhakta on 11-21-2024 ALP [Catalytic activity/Vol] 80 U/L 35-104 [facility] Serum or plasma amylase brice urement (enzymatic activity/volume)Ordered By: Sylvester Bhakta on 11-21-2024 Amylase [Catalytic activity/Vol] 63 U/L 28-100 [facility] Serum or plasma calcium brice urement (mass/volume)Ordered By: Sylvester Bhakta on 11-21-2024 Calcium [Mass/Vol] 9.7 mg/dL Normal 7.6-11.0 [facility] Comment on above: Performed By: #### L 501.2400, L501.2450, L501.9520, L500.4050, L3300.6900 #### [facility] [address] [place], [place], [id number] Serum or plasma thyroperoxid ase antibody assay (units/volume)Ordered By: Sylvester Bhakta on 11-21-2024 TPO Ab Qn [IU]/mL 0-34 [facility] Comment on above: Performed at: [place] [id number] Director: Chandana Turner PhD, Phone: [phone] Serum or plasma urea nitroge n measurement (mass/volume)Ordered By: Sylvester Bhakta on 11-21-2024 Urea nitrogen [Mass/Vol] 33 mg/dL High 4-19 [facility] Comment on above: Performed By: #### L 501.2400, L501.2450, L501.9520, L500.4050, L3300.6900 #### [facility] [address] [place], [place], [id number] Sodium levelOrdered By: Sylvester Bhakta on 11-21-2024 Sodium [Moles/Vol] 141 mmol/L Normal 133-145 [facility] Comment on above: Performed By: #### L 501.2400, L501.2450, L501.9520, L500.4050, L3300.6900 #### [facility] [address] [place], [place], [address] TSH DL <= 0.005 mIU/L QnOrde red By: Sylvester Bhakta on 11-21-2024 TSH Qn 4.750 uIU/mL High 0.300-4.200 [facility] Thyroid Stim Hormone (TSH)on 11-21-2024 TSH 4.750 uIU/mL High 0.300-4.200 [facility] Comment on above: Performed By: #### L 500.2500, L100.0100 #### [facility] [address] [place], [place], [id number] Total proteinOrdered By: Jose Alberto Bhakta on 11-21-2024 Protein [Mass/Vol] 7.1 g/dL 5.9-8.4 [facility] Breast imaging reportOrdered By: Jj Unger on 11-03-2024 Study report [facility] Imaging Services [address] [place], [place] [address] SCRN MAMM (CAD)W/SIMONA BILAT MR#: [id number] Acct: [id number] Name: SHEYLA RAMIREZ Rep #: [id number] : 1945 F 78 From: Narciso Unger MD PCP: Dr. 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 Remote right excisional breast biopsy. TECHNIQUE: Procedure Code: BISMWCADBTOM Modality: MG Procedure: SCRN MAMM (CAD)W/SIMONA BILAT COMPARISON: Prior exam(s) dated October 13, 2019 for.. FINDINGS: TISSUE DENSITY: The breasts are extremely dense, which lowers the sensitivity ofmammography. Bilateral Breast Mammographic Findings: No significant masses, calcifications or other abnormalities are identified. No suspicious masses, areas of developing architectural distortion, or suspicious calcifications. There has been no significant interval change. BI/SCRN MAMM (CAD)W/SIMONA BILAT IMPRESSION: Stable bilateral screening mammogram. OVERALL FINAL ASSESSMENT BI-RADS 1: NEGATIVE. RECOMMENDATION: Routine annual follow-up in 1 Year A letter with findings and recommendations will be mailed to the patient. Reading Location: [facility] CC: Dr. Lena Thorne MD ~ Battery Installer: Signed [facility] SCRN MAMM (CAD)W/SIMONA BILATo n 11-03-2024 SCRN MAMM (CAD)W/SIMONA BILAT [facility] Imaging Services [address] [place] [id number] SCRN MAMM (CAD)W/SIMONA BILAT MR#: [id number] Acct: [id number] Name: SHEYLA RAMIREZ Rep #: [id number] : 1945 F 78 From: Jj landin MD PCP: Dr. Lena Thorne MD Status: REG CLI Study: SCRN MAMM (CAD)W/SIMONA BILAT Date of Exam: 10/17 10/10 Exam# [id number] Ordering Dr: Lena Thorne MD EXAM: SCRN MAMM (CAD)W/SIMONA BILAT DATE: 11/03/2024 CLINICAL HISTORY: F, Age 78 y/o , BREST CANCER SCREENING Mother with breast cancer. Remote right excisional breast biopsy. TECHNIQUE: Procedure Code: BISMWCADBTOM Modality: MG Procedure: SCRN MAMM (CAD)W/SIMONA BILAT COMPARISON: Prior exam(s) dated October 13, 2019 for.. FINDINGS: TISSUE DENSITY: The breasts are extremely dense, which lowers the sensitivity of mammography. Bilateral Breast Mammographic Findings: No significant masses, calcifications or other abnormalities are identified. No suspicious masses, areas of developing architectural distortion, or suspicious calcifications. There has been no significant interval change. BI/SCRN MAMM (CAD)W/SIMONA BILAT IMPRESSION: Stable bilateral screening mammogram. OVERALL FINAL ASSESSMENT BI-RADS 1: NEGATIVE. RECOMMENDATION: Routine annual follow-up in 1 Year A letter with findings and recommendations will be mailed to the patient. Reading Location: [place] [address] CC: Dr. Lena Thorne MD Battery Installer: Signed Normal [facility] Internal Medicine Office Vis iton 10-24-2024 Internal Medicine Office Visit [facility] [address] [place] [address] [place] [address] OFFICE VISIT Date of Service: 10/24/24 MR#: [id number] Acct: [id number] Name: SHEYLA RAMIREZ Rep #: [id number] : 1945 Provider: Dr. Lena garcia MD Age/Sex: 78/F Location[place] [facility] Status: Signed Intake Vital Signs 06/15/24 14:09 08/04/24 14:20 10/24/24 12:59 Height 5 ft 7 in 5 ft 7 in 5 ft 7 in Weight: 158 lb BMI 24.7 BP 128/60 H Blood Pressure Location Lt brachial Position Sitting Respiration 18 Pulse 85 Pulse Source Monitor Temp 96.8 F L Temp Source Temporal Pulse Oximetry (%) 97 Oxygen Delivery Method room air Intake Visit Reasons: 4 M FU Chief Complaint: 4 M FU Is patient in pain?: No Allergies Penicillins Allergy (Severe, Verified 10/24/24 12:58) Rash grass pollen Allergy (Intermediate, Verified 10/24/24 12:58) Unknown house dust Allergy (Intermediate, Verified 10/24/24 12:58) Unknown mold Allergy (Intermediate, Verified 10/24/24 12:58) Unknown Seasonal Allergies: Uncoded Allergy (Intermediate, Verified 10/24/24 12:58) NEEDS FOLLOW-UP Sulfa (Sulfonamide Antibiotics) Allergy (Unknown, Verified 10/24/24 12:58) Swelling neomycin Allergy (Verified 10/24/24 12:58) edeema, skin reaction lisinopril Adverse Reaction (Verified 10/24/24 12:58) cough Medications ???Medication ???Instructions ???Recorded ???Confirmed ???Type latanoprost 0.005 % eye drops 1 drp ophthalmic (eye) QDAY 10/24/24 History blood sugar diagnostic (FreeStyle #90 ea 06/13/21 10/24/24 Rx Precision Leonardo Strips) lancets (Accu-Chek Fastclix Lancet #102 ea 09/12/21 10/24/24 Rx Drum) multivitamin 1 tab PO DAILY 07/07/22 10/24/24 H istory cholecalciferol (vitamin D3) 1,250 1,250 mcg PO QWEEK #20 caps 12/1710/24/24 Rx mcg (50,000 unit) capsule lansoprazole 15 mg capsule,delayed 15 mg PO QHS 30 days #30 caps 10/24/24 History release glimepiride 4 mg tablet 4 mg PO BID 3 months #180 tabs 10/24/24 Rx brimonidine 0.2 % eye drops 1 drp ophthalmic (eye) BID 4 10/24/24 History atorvastatin 10 mg tablet See Rx Instructions .Route 4 10/24/24 Rx .COMPLEX #90 tabs losartan 25 mg tablet 12.5 mg (1/2 x 25 mg) PO QDAY #90 03/09/24 10/24/24 Rx tabs Tresiba FlexTouch U-100 100 5 unit (0.05 mL) subcut QDAY #15 m L 05/03/24 10/24/24 Rx unit/mL (3 mL) subcutaneous pen (insulin degludec) metformin 500 mg tablet 500 mg PO BID #180 tabs 05/03/24 0 10/24/24 Rx pen needle, diabetic 32 gauge x #50 ea 06/08/24 10/24/24 Rx 5/32 (BD Ultra-Fine Naty Pen Needle) Novolog FlexPen U-100 Insulin 100 10 unit (0.1 mL) subcut TID #15 m L 07/04/24 10/24/24 Rx unit/mL (3 mL) subcutaneous (insulin aspart U-100) aspirin 81 mg tablet,delayed 81 mg PO QDAY #90 tabs 07/19/24 Rx release (Adult Aspirin Regimen) FreeStyle Wilfredo 3 Plus Sensor #6 ea 08/08/24 10/24/24 Rx (blood-glucose sensor) blood-glucose,receiv er,cont #1 ea 08/08/24 10/24/24 Rx (FreeStyle Wilfredo 3 [place]) Have you fallen in the past year?: No [facility] Medical History (Updated 10/24/24 @ 13:[address] Lena Thorne MD) Type 2 diabetes mellitus Diabetes Thyroid nodule Neck mass Back pain GERD (gastroesophageal reflux disease) Lumbar radiculopathy Constipation Cough Intermittent palpitations Thyroid disease Palpitation Pain in left araya Low back pain Left hip pain Osteopenia Hyperlipidemia Health care maintenance Carotid artery disease OSCAR (acute kidney injury) Abdominal pain Bilateral impacted cerumen Flu vaccine need Vitamin D deficiency Breast cancer screening GERD (gastroesophageal reflux disease) Essential (primary) hypertension partial sigmoidectomy Thyroid disease Pneumonia Osteoarthritis Hearing problem Glaucoma Back problem Arthritis Seasonal allergies Surgical History S/P laparoscopic fundoplication Normal colonoscopy History of right breast biopsy Family History Mother Breast cancer Diabetes Father Thyroid disorder Cancer Grandfather CVA (cerebral vascular accident) Social History Smoking Status: Never smoker second hand exposure: No alcohol intake: current alcohol intake frequency: holidays/special occasions only substance use type: does not use caffeine: Yes Type: coffee Number of servings: 1 what type of physical activity do you participate in: none HPI HPI Chief Complaint: 4 M FU Details: SHEYLA RAMIREZ, is a 78 F who presents to the office today for The patient is a 78-year-old female presenting with hypertension management and a routine follow-up (more content not included)... Normal [facility] Microalb:Creat Ratio,Random URon 10-24-2024 Creatinine [Mass/Vol] 330.00 mg/dL High 28.00-217.00 [facility] Comment on above: Performed By: #### L 502.0250 #### [facility] [address] [place], [place], [id number] MALB:CREAT 8.7 mg/g CRE Normal <30 mg/g CRE [facility] Comment on above: Performed By: #### L 502.0250 #### [facility] [address] [place], [place], [id number] MICROALBUMIN,UR 28.7 mg/L Normal <20 mg/L [facility] Comment on above: Performed By: #### L 502.0250 #### [facility] [address] [place], [place], [id number] Random urine creatinine brice urement (mass/volume)Ordered By: Lena Thorne on 10-24-2024 Creatinine Unsp time (U) [Mass/Vol] 330.00 mg/dL High 28.00-217.00 [facility] Urine albumin measurement wi th detection limit of 20 mg/L or less (mass/volume)Ordered By: Lena Thorne on 10-24-2024 Albumin DL <= 20 mg/L (U) [Mass/Vol] 28.7 mg/L <20 mg/L [facility] Anion gap in Serum or Plasma Ordered By: Lena Thorne on 10-21-2024 Anion gap [Moles/Vol] 12 mmol/L 5-15 [facility] BUN/creatinine ratioOrdered By: Lena Thorne on 10-21-2024 Urea nitrogen/Creatinine [Mass ratio] 32.1 mg/mg High 10-20 [facility] Bilirubin, totalOrdered By: Lena Thorne on 10-21-2024 Bilirubin [Mass/Vol] 0.47 mg/dL 0.00-1.30 [facility] Calculated very low density lipoprotein (VLDL) cholesterol measurementOrdered By: Lena Thorne on 10-21-2024 Calculated very low density lipoprotein (VLDL) cholesterol measurement 13 mg/dL 5-40 [facility] Carbon dioxide, total [Moles /volume] in Central venous bloodOrdered By: Lena Thorne on 10-21-2024 CO2 [Moles/Vol] 22.6 mmol/L 21.0-32.0 [facility] Chloride assayOrdered By: Ruben hTorne on 10-21-2024 Chloride [Moles/Vol] 104 mmol/L 98-108 [facility] Comprehensive Metabolic Prof ilon 10-21-2024 Albumin [Mass/Vol] 3.9 g/dL Normal 3.4-4.8 [facility] Comment on above: Performed By: #### L 502.0250, L500.4050, L500.4100, L501.9985 #### [facility] [address] [place], [address] Albumin/Globulin [Mass ratio] 1.5 {ratio} Normal 0.9-2.4 [facility] Comment on above: Performed By: #### L 502.0250, L500.4050, L500.4100, L501.9985 #### [facility] [address] [place], [address] ALK PHOS 70 U/L Normal 35-104 [facility] Comment on above: Performed By: #### L 502.0250, L500.4050, L500.4100, L501.9985 #### [facility] [address] [place], [address] ALT [Catalytic activity/Vol] 28 U/L Normal <=34 [facility] Comment on above: Performed By: #### L 502.0250, L500.4050, L500.4100, L501.9985 #### [facility] [address] [place], [address] AST [Catalytic activity/Vol] 21 U/L Normal <=31 [facility] Comment on above: Performed By: #### L 502.0250, L500.4050, L500.4100, L501.9985 #### [facility] [address] [place], [address] Bilirubin [Mass/Vol] 0.47 mg/dL Normal 0.00-1.30 [facility] Comment on above: Performed By: #### L 502.0250, L500.4050, L500.4100, L501.9985 #### [facility] [address] [place], [address] BUN/CRE 32.1 RATIO High 10-20 [facility] Comment on above: Performed By: #### L 502.0250, L500.4050, L500.4100, L501.9985 #### [facility] [address] [place], [address] Calcium [Mass/Vol] 9.3 mg/dL Normal 7.6-11.0 [facility] Comment on above: Performed By: #### L 502.0250, L500.4050, L500.4100, L501.9985 #### [facility] [address] [place], [address] Chloride [Moles/Vol] 104 mmol/L Normal 98-108 [facility] Comment on above: Performed By: #### L 502.0250, L500.4050, L500.4100, L501.9985 #### [facility] [address] [place], [address] CO2 [Moles/Vol] 22.6 mmol/L Normal 21.0-32.0 [facility] Comment on above: Performed By: #### L 502.0250, L500.4050, L500.4100, L501.9985 #### [facility] [address] [place], [address] Creatinine [Mass/Vol] 0.83 mg/dL Normal 0.70-1.20 [facility] Comment on above: Performed By: #### L 502.0250, L500.4050, L500.4100, L501.9985 #### [facility] [address] [place], [address] GAP 12 Normal 5-15 [facility] Comment on above: Performed By: #### L 502.0250, L500.4050, L500.4100, L501.9985 #### [facility] [address] [place], [address] GFR/1.73 sq M.predicted among non-blacks MDRD (S/P/Bld) [Vol rate/Area] 73 mL/min/{1.73_m2} Normal >60 [facility] Comment on above: Result Comment: mL/m in/1.73m2 CKD-EPI Creatinine Equation (2020) Performed By: #### L 502.0250, L500.4050, L500.4100, L501.9985 #### [facility] [address] [place], [address] Globulin (S) [Mass/Vol] 2.7 g/dL Normal 2.2-4.2 [facility] Comment on above: Performed By: #### L 502.0250, L500.4050, L500.4100, L501.9985 #### [facility] [address] [place], [address] Glucose [Mass/Vol] 150 mg/dL High 70-99 [facility] Comment on above: Performed By: #### L 502.0250, L500.4050, L500.4100, L501.9985 #### [facility] [address] [place], [address] Potassium [Moles/Vol] 4.0 mmol/L Normal 3.3-5.1 [facility] Comment on above: Performed By: #### L 502.0250, L500.4050, L500.4100, L501.9985 #### [facility] [address] [place], [address] Sodium [Moles/Vol] 139 mmol/L Normal 133-145 [facility] Comment on above: Performed By: #### L 502.0250, L500.4050, L500.4100, L501.9985 #### [facility] [address] [place], [address] T PROT 6.6 g/dL Normal 5.9-8.4 [facility] Comment on above: Performed By: #### L 502.0250, L500.4050, L500.4100, L501.9985 #### [facility] [address] [place], [address] Urea nitrogen [Mass/Vol] 27 mg/dL High 4-19 [facility] Comment on above: Performed By: #### L 502.0250, L500.4050, L500.4100, L501.9985 #### [facility] [address] [place], [address] Glomerular filtration rate ( GFR) estimation/1.73 sq m using serum, plasma, or whole bOrdered By: Lena Thorne on 10-21-2024 GFR/1.73 sq M.predicted among non-blacks MDRD (S/P/Bld) [Vol rate/Area] 73 mL/min/{1.73_m2} >60 [facility] Comment on above: mL/min/1.73m2 CKD-EP I Creatinine Equation (2020) Hemoglobin A1con 10-21-2024 HbA1c (Bld) [Mass fraction] 7.3 % High <=5.6 [facility] Comment on above: Result Comment: Norm al < 5.7 % Prediabetic 5.7 - 6.4 % Diabetic >or= 6.5 % Please note range changes. Performed By: #### L 502.0250, L500.4050, L500.4100, L501.9985 #### [facility] [address] [place], [address] Hemoglobin A1c percentageOrd ered By: Lena Thorne on 10-21-2024 HbA1c (Bld) [Mass fraction] 7.3 % High <5.7 [facility] Comment on above: Normal < 5.7 % Predi abetic 5.7 - 6.4 % Diabetic >or= 6.5 % Please note range changes. LDL calc ser/plasOrdered By: Lena Thorne on 10-21-2024 Cholesterol in LDL [Mass/Vol] 89 mg/dL [facility] Comment on above: Lzdgkitlfz=410-331 m g/dL & Higher Gcnj=965 mg/dL or greaterFriedwald Equation for LDL-C Laboratory - Chemistry and C hemistry - challengeOrdered By: Lena Thorne on 10-21-2024 AST [Catalytic activity/Vol] 21 U/L <32 [facility] Lipid Profileon 10-21-2024 CHOL:HDL 2.16 Normal [facility] Comment on above: Performed By: #### L 502.0250, L500.4050, L500.4100, L501.9985 #### [facility] [address] [place], [address] Cholesterol [Mass/Vol] 189 mg/dL Normal <=200 [facility] Comment on above: Result Comment: Chol esterol level, Desirable <200 mg/dL Borderline high cholesterol 200-239 mg/dL High cholesterol >=240 mg/dL Recommendations of the NCEP Adult Treatment Panel for the following risk-cutoff thresholds for the [place] population. Performed By: #### L 502.0250, L500.4050, L500.4100, L501.9985 #### [facility] [address] [place], [address] Cholesterol in HDL [Mass/Vol] 88 mg/dL Normal [facility] Comment on above: Result Comment: Sanaz onal Cholesterol Education Program (NCEP) guidelines: <40 mg/dL: Low HDL-cholesterol (major risk factor for CHD) >= 60 mg/dL: High HDL-cholesterol (negative risk factor for CHD) HDL-cholesterol is affected by a number of factors, e.g. smoking, exercise, hormones, sex and age. Performed By: #### L 502.0250, L500.4050, L500.4100, L501.9985 #### [facility] [address] [place], [address] Cholesterol in LDL [Mass/Vol] 89 mg/dL Normal [facility] Comment on above: Result Comment: Bord adraxu=026-761 mg/dL Higher Uqaq=817 mg/dL or greater Friedwald Equation for LDL-C Performed By: #### L 502.0250, L500.4050, L500.4100, L501.9985 #### [facility] [address] [place], [address] Cholesterol in VLDL [Mass/Vol] 13 mg/dL Normal 5-40 [facility] Comment on above: Performed By: #### L 502.0250, L500.4050, L500.4100, L501.9985 #### [facility] [address] [place], [address] Triglyceride [Mass/Vol] 63 mg/dL Normal [facility] Comment on above: Result Comment: The drugs N-Acetylcysteine and Metamizole may falsely depress this assay. Normal range: <150 mg/dL Borderline High: 150-199 mg/dL High: 200-499 mg/dL Very High: >500 mg/dL Performed By: #### L 502.0250, L500.4050, L500.4100, L501.9985 #### [facility] [address] [place], [address] Microalb:Creat Ratio,Random URon 10-21-2024 MALB:CREAT Normal <30 mg/g CRE [facility] Comment on above: Result Comment: UTO Performed By: #### L 502.0250, L500.4050, L500.4100, L501.9985 #### [facility] [address] [place], [address] MICROALBUMIN,UR Normal <20 mg/L [facility] Comment on above: Result Comment: UTO Performed By: #### L 502.0250, L500.4050, L500.4100, L501.9985 #### [facility] [address] [place], [address] UR CREAT Normal 28.00-217.00 [facility] Comment on above: Result Comment: UTO Performed By: #### L 502.0250, L500.4050, L500.4100, L501.9985 #### [facility] [address] [place], [address] Potassium measurement (mass/ volume)Ordered By: Lena Thorne on 10-21-2024 Potassium (Unsp spec) [Mass/Vol] 4.0 mmol/L 3.3-5.1 [facility] Screening total cholesterol/ high density lipoprotein (HDL) cholesterol ratioOrdered By: Lena Thorne on 10-21-2024 Cholesterol.total/Choles terol in HDL [Mass ratio] 2.16 {ratio} [facility] Serum creatinine measurement (mass/volume)Ordered By: Lena Thorne on 10-21-2024 Creatinine [Mass/Vol] 0.83 mg/dL 0.70-1.20 [facility] Serum globulin measurementOr dered By: Lena Thorne on 10-21-2024 Globulin (S) [Mass/Vol] 2.7 g/dL 2.2-4.2 [facility] Serum glucose measurement (m ass/volume)Ordered By: Lena Thorne on 10-21-2024 Glucose [Mass/Vol] 150 mg/dL High 70-99 [facility] Serum or plasma alanine danielson otransferase (ALT) measurementOrdered By: Lena Thorne on 10-21-2024 ALT [Catalytic activity/Vol] 28 U/L <35 [facility] Serum or plasma albumin brice urement (mass/volume)Ordered By: Lena Thorne on 10-21-2024 Albumin [Mass/Vol] 3.9 g/dL 3.4-4.8 [facility] Serum or plasma albumin/glob ulin mass ratioOrdered By: Lena Thorne on 10-21-2024 Albumin/Globulin [Mass ratio] 1.5 {ratio} 0.9-2.4 [facility] Serum or plasma alkaline jeannie sphatase measurementOrdered By: Lena Thorne on 10-21-2024 ALP [Catalytic activity/Vol] 70 U/L 35-104 [facility] Serum or plasma calcium brice urement (mass/volume)Ordered By: Lena Thorne on 10-21-2024 Calcium [Mass/Vol] 9.3 mg/dL 7.6-11.0 [facility] Serum or plasma cholesterol in HDL measurement (mass/volume)Ordered By: Lena Thorne on 10-21-2024 Cholesterol in HDL [Mass/Vol] 88 mg/dL >40 [facility] [facility] Comment on above: National Cholesterol Education Program (NCEP) guidelines:<40 mg/dL: Low HDL-cholesterol (major risk factor for CHD)>= 60 mg/dL: High HDL-cholesterol (negative risk factor for CHD)HDL-cholesterol is affected by a number of factors, e.g. smoking, exercise, hormones, sex and age. Serum or plasma cholesterol measurement (mass/volume)Ordered By: Lena Thorne on 10-21-2024 Cholesterol [Mass/Vol] 189 mg/dL <201 [facility] Comment on above: Cholesterol level, D esirable <200 mg/dLBorderline high cholesterol 200-239 mg/dLHigh cholesterol >=240 mg/dLRecommendations of the NCEP Adult Treatment Panel for the following risk-cutoff thresholds for the [place] population. Serum or plasma urea nitroge n measurement (mass/volume)Ordered By: Lena Thorne on 10-21-2024 Urea nitrogen [Mass/Vol] 27 mg/dL High 4-19 [facility] Sodium levelOrdered By: Missy Thorne on 10-21-2024 Sodium [Moles/Vol] 139 mmol/L 133-145 [facility] Total proteinOrdered By: Oscar Thorne on 10-21-2024 Protein [Mass/Vol] 6.6 g/dL 5.9-8.4 [facility] Triglycerides measurementOrd ered By: Lena Thorne on 10-21-2024 Triglyceride [Mass/Vol] 63 mg/dL <199 [facility] Comment on above: The drugs N-Acetylcy steine and Metamizole may falsely depress this assay. Normal range: <150 mg/dLBorderline High: 150-199 mg/dLHigh: 200-499 mg/dLVery High: >500 mg/dL Endocrinology Visit Reporton 08-04-2024 Endocrinology Visit Report [facility] [address] [place] [address] OFFICE VISIT Date of Service: 08/04/24 MR#: [id number] Acct: [id number] Name: SHEYLA RAMIREZ Rep #: [id number] : 1945 Provider: Omar Miller Age/Sex: 78/F [place] [facility] [place]: Signed Intake Vital Signs 04/05/24 14:22 07/19/24 07:39 08/04/24 14:20 Height 5 ft 7 in 5 ft 7 in 5 ft 7 in Weight: 155 lb 8 oz BMI 24.3 BP 135/82 H Blood Pressure Location Lt brachial Position Sitting Pulse 71 Pulse Source Monitor Pulse Oximetry (%) 98 Oxygen Delivery Method room air Intake Visit Reasons: 4 M FU Chief Complaint: Diabetes Is patient in pain?: No Allergies Penicillins Allergy (Severe, Verified 08/04/24 14:25) Rash grass pollen Allergy (Intermediate, Verified 08/04/24 14:25) Unknown house dust Allergy (Intermediate, Verified 08/04/24 14:25) Unknown mold Allergy (Intermediate, Verified 08/04/24 14:25) Unknown Seasonal Allergies: Uncoded Allergy (Intermediate, Verified 08/04/24 14:25) NEEDS FOLLOW-UP Sulfa (Sulfonamide Antibiotics) Allergy (Unknown, Verified 08/04/24 14:25) Swelling neomycin Allergy (Verified 08/04/24 14:25) edeema, skin reaction lisinopril Adverse Reaction (Verified 08/04/24 14:25) cough Medications ???Medication ???Instructions ???Recorded ???Confirmed ???Type latanoprost 0.005 % eye drops 1 drp ophthalmic (eye) QDAY 08/04/24 History blood sugar diagnostic (FreeStyle #90 ea 06/13/21 08/04/24 Rx Precision Leonardo Strips) lancets (Accu-Chek Fastclix Lancet #102 ea 09/12/21 08/04/24 Rx Drum) multivitamin 1 tab PO DAILY 07/07/22 08/04/24 H istory cholecalciferol (vitamin D3) 1,250 1,250 mcg PO QWEEK #20 caps 12/1708/04/24 Rx mcg (50,000 unit) capsule lansoprazole 15 mg capsule,delayed 15 mg PO QHS 30 days #30 caps 08/04/24 History release glimepiride 4 mg tablet 4 mg PO BID 3 months #180 tabs 08/04/24 Rx brimonidine 0.2 % eye drops 1 drp ophthalmic (eye) BID 4 08/04/24 History atorvastatin 10 mg tablet See Rx Instructions .Route 4 08/04/24 Rx .COMPLEX #90 tabs losartan 25 mg tablet 12.5 mg (1/2 x 25 mg) PO QDAY #90 03/09/24 08/04/24 Rx tabs FreeStyle Wilfredo 3 Plus Sensor #6 ea 04/05/24 08/04/24 Rx (blood-glucose sensor) blood-glucose,receiv er,cont #1 ea 04/05/24 08/04/24 Rx (FreeStyle Wilfredo 3 Trimble) Tresiba FlexTouch U-100 100 5 unit (0.05 mL) subcut QDAY #15 m L 05/03/24 08/04/24 Rx unit/mL (3 mL) subcutaneous pen (insulin degludec) metformin 500 mg tablet 500 mg PO BID #180 tabs 05/03/24 0 08/04/24 Rx pen needle, diabetic 32 gauge x #50 ea 06/08/24 08/04/24 Rx (BD Ultra-Fine Naty Pen Needle) Novolog FlexPen U-100 Insulin 100 10 unit (0.1 mL) subcut TID #15 m L 07/04/24 08/04/24 Rx unit/mL (3 mL) subcutaneous (insulin aspart U-100) aspirin 81 mg tablet,delayed 81 mg PO QDAY #90 tabs 07/19/24 Rx release (Adult Aspirin Regimen) Have you fallen in the past year?: No PFSH Medical History (Updated 08/04/24 @ 15:[address] Sylvester Bhakta MD) Diabetes Thyroid nodule Neck mass Back pain GERD (gastroesophageal reflux disease) Lumbar radiculopathy Constipation Cough Intermittent palpitations Thyroid disease Palpitation Pain in left araya Low back pain Left hip pain Osteopenia Hyperlipidemia Health care maintenance Carotid artery disease OSCAR (acute kidney injury) Abdominal pain Bilateral impacted cerumen Flu vaccine need Vitamin D deficiency Breast cancer screening GERD (gastroesophageal reflux disease) Essential (primary) hypertension partial sigmoidectomy Thyroid disease Pneumonia Osteoarthritis Hearing problem Glaucoma Back problem Arthritis Seasonal allergies Surgical History S/P laparoscopic fundoplication Normal colonoscopy History of right breast biopsy Family History Mother Breast cancer Diabetes Father Thyroid disorder Cancer Grandfather CVA (cerebral vascular accident) Social History Smoking Status: Never smoker second hand exposure: No alcohol intake: current alcohol intake frequency: holidays/special occasions only substance use type: does not use caffeine: Yes Type: coffee Number of servings: 1 what type of physical activity do you participate in: none HPI HPI Chief Complaint: Diabetes Details: SHEYLA RAMIREZ, is a 78 F who presents to the office today for follow up. A1C is 7.5% (7.8%, 9.7%) She started insulin within the past year. She has been too busy to start her CGM. She seems nervous about the (more content not included)... Normal [facility] - Hematology and Cell countsOrdered By: Sylvester Bhakta on 08-04-2024 HbA1c (Bld) [Mass fraction] 7.5 % High 4.2-6.3 [facility] Carotid Duplex Ultrasoundon 08-01-2024 Carotid Duplex Ultrasound [facility] [address] [place] [address] Carotid Duplex Ultrasound 08/01/24 1305 MR#: [id number] Acct: [id number] Name: SHEYLA RAMIREZ Rep #: [id number] : 1945 78 From: Carlos Foote MD Attending Dr: XIOMARA Hartley Status: DEP CLI Ordering Dr: Alcira Angelo Date: 07/17 08/10 Location: [facility] Sex: F C Admitted: Reason For Study Reason For Study: Carotid Artery Disease Rt. Velocities/BP Lt. Velocities/BP Prox CCA 92.5/11.4 cm/sec. Prox CCA 80.6/13.5 cm/sec. Mid CCA 132.1/11.5 cm/sec. Mid CCA 98.6/15.1 cm/sec. Dist CCA 73.6/15.2 cm/sec. Dist CCA 83.9/17.6 cm/sec. Prox ICA 65.2/14.6 cm/sec. Prox ICA 94.9/23.7 cm/sec. Mid ICA 90.5/25.6 cm/sec. Mid ICA 158.7/40.2 cm/sec. Dist ICA 71.8/17.9 cm/sec. Dist ICA 74.6/22.7 cm/sec. Rt. ICA/CCA = 0.7. Lt. ICA/CCA = 1.6. Prox ECA 93.7/9.7 cm/sec. Prox ECA 97.4/5.3 cm/sec. Rt. Vert. 45.4/10.2 cm/sec. Lt. Vert. 64.2/15.1 cm/sec. Right Extracranial There is intimal thickening but no significant atherosclerotic plaque noted in the right common carotid artery. There is homogeneous, smooth atherosclerotic plaque noted in the right internal carotid artery. There is intimal thickening but no significant atherosclerotic plaque noted in the right external carotid artery. Antegrade flow is noted in the right vertebral artery. Left Extracranial There is intimal thickening but no significant atherosclerotic plaque noted in the left common carotid artery. There is heterogeneous, irregular atherosclerotic plaque noted in the left internal carotid artery. The left internal carotid artery is very tortuous. There is intimal thickening but no significant atherosclerotic plaque noted in the left external carotid artery. Antegrade flow is noted in the left vertebral artery. Procedure Carotid Duplex 29635. This is a Carotid Duplex examination using B-mode, color flow and specral Doppler. Exam performed in department. VL/Carotid Duplex Ultrasound Interpretation Summary Mild (<50%) stenosis right extracranial internal carotid. Moderate (50-69%) stenosis left extracranial internal carotid. Patent and antegrade vertebrals bilaterally. Ordering Physician: Alcira Angelo Referring Physician: Lena Thorne Performed By: Kelsey Dow RVT 08/08/24 1400 Date Carlos Foote MD CC: Dr. Lena Thorne MD; XIOMARA Hartley Date Dictated: 08/01/24 1305 Date Transcribed: 08/08/24 1400 Battery Installer: Signed Normal [facility] Cardiology Visit Reporton Cardiology Visit Report [facility] [address] [place] [address]. [address] [place] [address] OFFICE VISIT Date of Service: 07/19/24 MR#: [id number] Acct: [id number] Name: CIARASHEYLA PRAKASH Rep #: [id number] : 1945 Provider: Dr. 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 Here for follow-up visit. Denies any complaints. No chest pains. No shortness of breath. No palpitations. No orthopnea or PND. Occasional ankle edema towards the end of the day which is resolved by the morning. Intake Vital Signs 06/15/24 14:07/19/24 07:39 Height 5 ft 7 in 5 ft 7 in Weight: 154 lb 6 oz 154 lb BMI 24.1 24.1 BP 98/54 L 107/69 Blood Pressure Location Lt brachial Lt brachial Position Sitting Sitting Respiration 12 18 Pulse 77 80 Pulse Source Monitor NIBP Temp 96.3 F L Pulse Oximetry (%) 95 Oxygen Delivery Method room air Intake Visit Reasons: 1 Y FU Fiscal Officer Required: No Accompanied by: Self Is patient in pain?: No Allergies Penicillins Allergy (Severe, Verified 07/19/24 14:14) Rash grass pollen Allergy (Intermediate, Verified 07/19/24 14:14) Unknown house dust Allergy (Intermediate, Verified 07/19/24 14:14) Unknown mold Allergy (Intermediate, Verified 07/19/24 14:14) Unknown Seasonal Allergies: Uncoded Allergy (Intermediate, Verified 07/19/24 14:14) NEEDS FOLLOW-UP Sulfa (Sulfonamide Antibiotics) Allergy (Unknown, Verified 07/19/24 14:14) Swelling neomycin Allergy (Verified 07/19/24 14:14) edeema, skin reaction lisinopril Adverse Reaction (Verified 07/19/24 14:14) cough Medications ???Medication ???Instructions ???Recorded ???Confirmed ???Type latanoprost 0.005 % eye drops 1 drp ophthalmic (eye) QDAY 07/19/24 History blood sugar diagnostic (FreeStyle #90 ea 06/13/21 07/19/24 Rx Precision Leonardo Strips) lancets (Accu-Chek Fastclix Lancet #102 ea 09/12/21 07/19/24 Rx Drum) multivitamin 1 tab PO DAILY 07/07/22 07/19/24 H istory cholecalciferol (vitamin D3) 1,250 1,250 mcg PO QWEEK #20 caps 12/1707/19/24 Rx mcg (50,000 unit) capsule lansoprazole 15 mg capsule,delayed 15 mg PO QHS 30 days #30 caps 07/19/24 History release glimepiride 4 mg tablet 4 mg PO BID 3 months #180 tabs 07/19/24 Rx brimonidine 0.2 % eye drops 1 drp ophthalmic (eye) BID 4 07/19/24 History atorvastatin 10 mg tablet See Rx Instructions .Route 4 07/19/24 Rx .COMPLEX #90 tabs losartan 25 mg tablet 12.5 mg (1/2 x 25 mg) PO QDAY #90 03/09/24 07/19/24 Rx tabs FreeStyle Wilfredo 3 Plus Sensor #6 ea 04/05/24 07/19/24 Rx (blood-glucose sensor) blood-glucose,receiv er,cont #1 ea 04/05/24 07/19/24 Rx (FreeStyle Wilfredo 3 Trimble) Tresiba FlexTouch U-100 100 5 unit (0.05 mL) subcut QDAY #15 m L 05/03/24 07/19/24 Rx unit/mL (3 mL) subcutaneous pen (insulin degludec) metformin 500 mg tablet 500 mg PO BID #180 tabs 05/03/24 0 07/19/24 Rx pen needle, diabetic 32 gauge x #50 ea 06/08/24 07/19/24 Rx / (BD Ultra-Fine Naty Pen Needle) Novolog FlexPen U-100 Insulin 100 10 unit (0.1 mL) subcut TID #15 m L 07/04/24 07/19/24 Rx unit/mL (3 mL) subcutaneous (insulin aspart U-100) Ejection fraction %: 65 Have you fallen in the past year?: No PFSH Medical History Diabetes Thyroid nodule Neck mass Back pain GERD (gastroesophageal reflux disease) Lumbar radiculopathy Constipation Cough Intermittent palpitations Thyroid disease Palpitation Pain in left araya Low back pain Left hip pain Osteopenia Hyperlipidemia Health care maintenance Carotid artery disease OSCAR (acute kidney injury) Abdominal pain Bilateral impacted cerumen Flu vaccine need Vitamin D deficiency Breast cancer screening GERD (gastroesophageal reflux disease) Essential (primary) hypertension partial sigmoidectomy Thyroid disease Pneumonia Osteoarthritis Hearing problem Glaucoma Back problem Arthritis Seasonal allergies Surgical History S/P laparoscopic fundoplication Normal colonoscopy History of right breast biopsy Family History Mother Breast cancer Diabetes Father Thyroid disorder Cancer Grandfather CVA (cerebral vascular accident) Social History Smoking Status: Never smoker second hand exposure: No alcohol intake: current alcohol intake frequency: holidays/special occasions only substance use (more content not included)... Normal [facility] Absolute lymphocyte countOrd ered By: navin Thorne on 06-15-2024 Lymphocytes Auto (Unsp spec) [#/Vol] 1.74 10*3/uL 0.83-4.51 [facility] Absolute neutrophil countOrd ered By: natibushnelljames Thorne on 06-15-2024 Neutrophils (Bld) [#/Vol] 4.2 10*3/uL 2.0-7.7 [facility] Anion gap in Serum or Plasma Ordered By: [facility] on 06-15-2024 Anion gap [Moles/Vol] 11 mmol/L 5-15 [facility] Automated lymphocyte count a s percentage of total leukocytesOrdered By: natibushnelljames Luevanopipe on 06-15-2024 Lymphocytes/100 WBC Auto (Unsp spec) 25.9 % 19-41 [facility] BUN/creatinine ratioOrdered By: [facility] on 06-15-2024 Urea nitrogen/Creatinine [Mass ratio] 28.5 mg/mg High 10- [facility] Basic Metabolic Profile (BMP )on 06-15-2024 BUN/CRE 28.5 RATIO High - [facility] Comment on above: Performed By: #### L 500.2500, L100.0100 #### [facility] [address] [place], [address] Calcium [Mass/Vol] 9.7 mg/dL Normal 7.6-11.0 [facility] Comment on above: Performed By: #### L 500.2500, L100.0100 #### [facility] [address] [place], [address] Chloride [Moles/Vol] 106 mmol/L Normal 98-108 [facility] Comment on above: Performed By: #### L 500.2500, L100.0100 #### [facility] [address] [place], [address] CO2 [Moles/Vol] 25.5 mmol/L Normal 21.0-32.0 [facility] Comment on above: Performed By: #### L 500.2500, L100.0100 #### [facility] [address] [place], [address] Creatinine [Mass/Vol] 0.84 mg/dL Normal 0.70-1.20 [facility] Comment on above: Performed By: #### L 500.2500, L100.0100 #### [facility] [address] [place], [address] GAP 11 Normal 5-15 [facility] Comment on above: Performed By: #### L 500.2500, L100.0100 #### [facility] [address] [place], [address] GFR/1.73 sq M.predicted among non-blacks MDRD (S/P/Bld) [Vol rate/Area] 72 mL/min/{1.73_m2} Normal >60 [facility] Comment on above: Result Comment: mL/m in/1.73m2 CKD-EPI Creatinine Equation (2020) Performed By: #### L 500.2500, L100.0100 #### [facility] [address] [place], [address] Glucose [Mass/Vol] 145 mg/dL High 70-99 [facility] Comment on above: Performed By: #### L 500.2500, L100.0100 #### [facility] [address] [place], [address] Potassium [Moles/Vol] 4.6 mmol/L Normal 3.3-5.1 [facility] Comment on above: Performed By: #### L 500.2500, L100.0100 #### [facility] [address] [place], [address] Sodium [Moles/Vol] 142 mmol/L Normal 133-145 [facility] Comment on above: Performed By: #### L 500.2500, L100.0100 #### [facility] [address] [place], [address] Urea nitrogen [Mass/Vol] 24 mg/dL High 4-19 [facility] Comment on above: Performed By: #### L 500.2500, L100.0100 #### [facility] [address] [place], [address] Basophil percentageOrdered B y: Lena Thorne on 06-15-2024 Basophils/100 WBC (Bld) 0.4 % 0-1 [facility] CBC W/Diff, Automatedon 05-19-2024 Absolute Lymph 1.74 X10 3/uL Normal 0.83-4.51 [facility] Comment on above: Performed By: #### L 500.2500, L100.0100 #### [facility] [address] [place], [address] Absolute Neut 4.2 X10 3/uL Normal 2.0-7.7 [facility] Comment on above: Performed By: #### L 500.2500, L100.0100 #### [facility] [address] [place], [address] Basophils/100 WBC (Bld) 0.4 % Normal 0-1 [facility] Comment on above: Performed By: #### L 500.2500, L100.0100 #### [facility] [address] [place], [address] Eosinophils/100 WBC (Bld) 1.9 % Normal 0-5 [facility] Comment on above: Performed By: #### L 500.2500, L100.0100 #### [facility] [address] [place], [address] Erythrocyte distribution width (RBC) [Ratio] 13.5 % Normal 11.6-14.6 [facility] Comment on above: Performed By: #### L 500.2500, L100.0100 #### [facility] [address] [place], [address] Hematocrit (Bld) [Volume fraction] 41.6 % Normal 37-47 [facility] Comment on above: Performed By: #### L 500.2500, L100.0100 #### [facility] [address] [place], [address] Hemoglobin (Bld) [Mass/Vol] 13.3 g/dL Normal 12.0-15.0 [facility] Comment on above: Performed By: #### L 500.2500, L100.0100 #### [facility] [address] [place], [address] IG% 0.300 Normal 0.0-0.9 [facility] Comment on above: Result Comment: IG% - Immature Granulocytes (promyelocytes, myelocytes and metamyelocytes) > 1% indicates that a LEFT SHIFT is Present. Performed By: #### L 500.2500, L100.0100 #### [facility] [address] [place], [address] Lymphocytes/100 WBC (Bld) 25.9 % Normal 19-41 [facility] Comment on above: Performed By: #### L 500.2500, L100.0100 #### [facility] [address] [place], [address] MCH (RBC) [Entitic mass] 28.3 pg Normal 27.0-32.0 [facility] Comment on above: Performed By: #### L 500.2500, L100.0100 #### [facility] [address] [place], [address] MCHC (RBC) [Mass/Vol] 32.0 g/dL Normal 32-36 [facility] Comment on above: Performed By: #### L 500.2500, L100.0100 #### [facility] [address] [place], [address] MCV (RBC) [Entitic vol] 88.5 fL Normal 81-99 [facility] Comment on above: Performed By: #### L 500.2500, L100.0100 #### [facility] [address] [place], [address] Monocytes/100 WBC (Bld) 8.5 % Normal 0-10 [facility] Comment on above: Performed By: #### L 500.2500, L100.0100 #### [facility] [address] [place], [address] Neutrophils/100 WBC (Bld) 63.0 % Normal 47-70 [facility] Comment on above: Performed By: #### L 500.2500, L100.0100 #### [facility] [address] [place], [address] Nucleated RBC (Bld) [#/Vol] 0 10*3/uL Normal 0-5 [facility] Comment on above: Performed By: #### L 500.2500, L100.0100 #### [facility] [address] [place], [address] Platelet mean volume (Bld) [Entitic vol] 11.2 fL Normal 6.2-12.0 [facility] Comment on above: Performed By: #### L 500.2500, L100.0100 #### [facility] [address] [place], [address] Platelets (Bld) [#/Vol] 212 10*3/uL Normal 150-450 [facility] Comment on above: Performed By: #### L 500.2500, L100.0100 #### [facility] [address] [place], [address] RBC (Bld) [#/Vol] 4.70 10*6/uL Normal 4.2-5.4 [facility] Comment on above: Performed By: #### L 500.2500, L100.0100 #### [facility] [address] [place], [address] RDW SD 43.8 fl Normal 35.1-43.9 [facility] Comment on above: Performed By: #### L 500.2500, L100.0100 #### [facility] [address] [place], [address] WBC (Bld) [#/Vol] 6.7 10*3/uL Normal 4.4-11.0 [facility] Comment on above: Performed By: #### L 500.2500, L100.0100 #### [facility] [address] [place], [address] Carbon dioxide, total [Moles /volume] in Central venous bloodOrdered By: Lena Thorne on 06-15-2024 CO2 [Moles/Vol] 25.5 mmol/L 21.0-32.0 [facility] Chloride assayOrdered By: Ruben Thorne on 06-15-2024 Chloride [Moles/Vol] 106 mmol/L 98-108 [facility] Eosinophil percentageOrdered By: Lena Thorne on 06-15-2024 Eosinophils/100 WBC (Bld) 1.9 % 0-5 [facility] Erythrocyte distribution wid th ratioOrdered By: Lena Thorne on 06-15-2024 Erythrocyte distribution width (RBC) [Ratio] 13.5 % 11.6-14.6 [facility] Erythrocyte distribution wid th standard deviationOrdered By: Lena Thorne on 06-15-2024 Erythrocyte distribution width (RBC) [Ratio] 43.8 fl 35.1-43.9 [facility] Glomerular filtration rate ( GFR) estimation/1.73 sq m using serum, plasma, or whole bOrdered By: Lena Thorne on 06-15-2024 GFR/1.73 sq M.predicted among non-blacks MDRD (S/P/Bld) [Vol rate/Area] 72 mL/min/{1.73_m2} >60 [facility] Comment on above: mL/min/1.73m2 CKD-EP I Creatinine Equation (2020) Hematocrit Auto (Bld) [Volum e fraction]Ordered By: Lena Thorne on 06-15-2024 Hematocrit (Bld) [Volume fraction] 41.6 % 37-47 [facility] Hemoglobin measurementOrdere d By: Lena Thorne on 06-15-2024 Hemoglobin (Bld) [Mass/Vol] 13.3 g/dL 12.0-15.0 [facility] Immature granulocytes/100 WB C Auto (Bld)Ordered By: Lena Thorne on 06-15-2024 Immature granulocytes/100 WBC (Bld) 0.300 % 0.0-0.9 [facility] Comment on above: IG% - Immature Granu locytes (promyelocytes, myelocytes and metamyelocytes) > 1% indicates that a LEFT SHIFT is Present. Internal Medicine Office Vis iton 06-15-2024 Internal Medicine Office Visit [facility] [address] [place] [address] [place] [address] OFFICE VISIT Date of Service: 06/15/24 MR#: [id number] Acct: [id number] Name: SHEYLA RAMIREZ Rep #: [id number] : 1945 Provider: Dr. Lena garcia MD Age/Sex: 78/F [place] [facility] [place]: Signed Intake Vital Signs 03/09/24 14:23 04/05/24 14:22 06/15/24 14:09 Height 5 ft 7 in 5 ft 7 in 5 ft 7 in Weight: 154 lb 6 oz BMI 24.1 BP 98/54 L Blood Pressure Location Lt brachial Position Sitting Respiration 12 Pulse 77 Pulse Source Monitor Temp 96.3 F L Temp Source Temporal Pulse Oximetry (%) 95 Oxygen Delivery Method room air Intake Visit Reasons: 3 M FU Chief Complaint: Follow-up chronic conditions Fiscal Officer Required: No Accompanied by: Self Is patient in pain?: No Allergies Penicillins Allergy (Severe, Verified 06/15/24 14:04) Rash grass pollen Allergy (Intermediate, Verified 06/15/24 14:04) Unknown house dust Allergy (Intermediate, Verified 06/15/24 14:04) Unknown mold Allergy (Intermediate, Verified 06/15/24 14:04) Unknown Seasonal Allergies: Uncoded Allergy (Intermediate, Verified 06/15/24 14:04) NEEDS FOLLOW-UP Sulfa (Sulfonamide Antibiotics) Allergy (Unknown, Verified 06/15/24 14:04) Swelling neomycin Allergy (Verified 06/15/24 14:04) edeema, skin reaction lisinopril Adverse Reaction (Verified 06/15/24 14:04) cough Medications ???Medication ???Instructions ???Recorded ???Confirmed ???Type latanoprost 0.005 % eye drops 1 drp ophthalmic (eye) QDAY 06/15/24 History blood sugar diagnostic (FreeStyle #90 ea 06/13/21 06/15/24 Rx Precision Leonardo Strips) lancets (Accu-Chek Fastclix Lancet #102 ea 09/12/21 06/15/24 Rx Drum) multivitamin 1 tab PO DAILY 07/07/22 06/15/24 H istory cholecalciferol (vitamin D3) 1,250 1,250 mcg PO QWEEK #20 caps 12/1706/15/24 Rx mcg (50,000 unit) capsule lansoprazole 15 mg capsule,delayed 15 mg PO QHS 30 days #30 caps 06/15/24 History release glimepiride 4 mg tablet 4 mg PO BID 3 months #180 tabs 06/15/24 Rx brimonidine 0.2 % eye drops 1 drp ophthalmic (eye) BID 06/15/24 History atorvastatin 10 mg tablet See Rx Instructions .Route 4 06/15/24 Rx .COMPLEX #90 tabs losartan 25 mg tablet 12.5 mg (1/2 x 25 mg) PO QDAY #90 03/09/24 06/15/24 Rx tabs FreeStyle Wilfredo 3 Plus Sensor #6 ea 04/05/24 06/15/24 Rx (blood-glucose sensor) blood-glucose meter,continuous #1 ea 04/05/24 06/15/24 Rx (FreeStyle Wilfredo 3 Trimble) Tresiba FlexTouch U-100 100 5 unit (0.05 mL) subcut QDAY #15 m L 05/03/24 06/15/24 Rx unit/mL (3 mL) subcutaneous pen (insulin degludec) metformin 500 mg tablet 500 mg PO BID #180 tabs 05/03/24 0 06/15/24 Rx insulin lispro 100 unit/mL 8 unit (0.08 mL) subcut TID #15 mL 06/08/24 06/15/24 Rx subcutaneous pen (Admelog SoloStar U-100 Insulin lispro) pen needle, diabetic 32 gauge x #50 ea 06/08/24 06/15/24 Rx (BD Ultra-Fine Naty Pen Needle) Have you fallen in the past year?: No PFSH Medical History Diabetes Thyroid nodule Neck mass Back pain GERD (gastroesophageal reflux disease) Lumbar radiculopathy Constipation Cough Intermittent palpitations Thyroid disease Palpitation Pain in left araya Low back pain Left hip pain Osteopenia Hyperlipidemia Health care maintenance Carotid artery disease OSCAR (acute kidney injury) Abdominal pain Bilateral impacted cerumen Flu vaccine need Vitamin D deficiency Breast cancer screening GERD (gastroesophageal reflux disease) Essential (primary) hypertension partial sigmoidectomy Thyroid disease Pneumonia Osteoarthritis Hearing problem Glaucoma Back problem Arthritis Seasonal allergies Surgical History S/P laparoscopic fundoplication Normal colonoscopy History of right breast biopsy Family History Mother Breast cancer Diabetes Father Thyroid disorder Cancer Grandfather CVA (cerebral vascular accident) Social History Smoking Status: Never smoker second hand exposure: No alcohol intake: current alcohol intake frequency: holidays/special occasions only substance use type: does not use caffeine: Yes Type: coffee Number of servings: 1 what type of physical activity do you participate in: none HPI HPI Chief Complaint: Follow-up chronic conditions Details: SHEYLA RAMIREZ, is a 78 F who presents to the office today for follow-up of her chronic medical conditions. No acute concerns at this time. History of hypertension, blood pressure today is at 98/54. She states that la (more content not included)... Normal [facility] MCV (mean corpuscular volume ) determinationOrdered By: Lena Thorne on 06-15-2024 MCV (RBC) [Entitic vol] 88.5 fL 81-99 [facility] Mean corpuscular hemoglobin (MCH) determinationOrdered By: Lena Thorne on 06-15-2024 MCH (RBC) [Entitic mass] 28.3 pg 27.0-32.0 [facility] Mean corpuscular hemoglobin concentration (MCHC) determinationOrdered By: Lena Thorne on 06-15-2024 MCHC (RBC) [Mass/Vol] 32.0 g/dL 32-36 [facility] Mean platelet volume determi nationOrdered By: Lena Thorne on 06-15-2024 Platelet mean volume (Bld) [Entitic vol] 11.2 fL 6.2-12.0 [facility] Monocyte percentageOrdered B y: Lena Thorne on 06-15-2024 Monocytes/100 WBC (Bld) 8.5 % 0-10 [facility] Neutrophil percentageOrdered By: Lena Thorne on 06-15-2024 Neutrophils/100 WBC (Bld) 63.0 % 47-70 [facility] Nucleated red blood cell per centageOrdered By: Lena Thorne on 06-15-2024 Nucleated RBC/100 WBC (Bld) [Ratio] 0 % 0-5 [facility] Platelet countOrdered By: Ruben Thorne on 06-15-2024 Platelets (Bld) [#/Vol] 212 10*3/uL 150-450 [facility] Potassium measurement (mass/ volume)Ordered By: Lena Thorne on 06-15-2024 Potassium (Unsp spec) [Mass/Vol] 4.6 mmol/L 3.3-5.1 [facility] RBC Auto (Bld) [#/Vol]Ordere d By: Lena Thorne on 06-15-2024 RBC (Bld) [#/Vol] 4.70 10*6/uL 4.2-5.4 [facility] Serum creatinine measurement (mass/volume)Ordered By: Miriamjames Luevanogallo on 06-15-2024 Creatinine [Mass/Vol] 0.84 mg/dL 0.70-1.20 [facility] Serum glucose measurement (m ass/volume)Ordered By: Lena Bassemgallo on 06-15-2024 Glucose [Mass/Vol] 145 mg/dL High 70-99 [facility] Serum or plasma calcium brice urement (mass/volume)Ordered By: Lena Bassembreannapipe on 06-15-2024 Calcium [Mass/Vol] 9.7 mg/dL 7.6-11.0 [facility] Serum or plasma urea nitroge n measurement (mass/volume)Ordered By: Missybushnelljames Bassemgallo on 06-15-2024 Urea nitrogen [Mass/Vol] 24 mg/dL High 4-19 [facility] Sodium levelOrdered By: Missy longo Bassemgallo on 06-15-2024 Sodium [Moles/Vol] 142 mmol/L 133-145 [facility] White blood cell (WBC) count Ordered By: Lena Bassemgallo on 06-15-2024 WBC (Bld) [#/Vol] 6.7 10*3/uL 4.4-11.0 [facility] Endocrinology Visit Reporton 04-05-2024 Endocrinology Visit Report [facility] [address] [facility] [address] [place] [address] OFFICE VISIT Date of Service: 04/05/24 MR#: [id number] Acct: [id number] Name: SHEYLA RAMIREZ Rep #: [id number] : 1945 Provider: Omar Miller Age/Sex: 78/F [place] [facility] [place]: Signed Intake Vital Signs 01/05/24 14:27 03/09/24 14:23 04/05/24 14:22 Height 5 ft 7 in 5 ft 7 in 5 ft 7 in Weight: 144 lb 6 oz 145 lb 8 oz 151 lb 2 oz BMI 22.6 22.8 23.6 BP 98/64 102/68 102/64 Blood Pressure Location Rt brachial Rt brachial Rt brachial Position Sitting Sitting Sitting Respiration 12 Pulse 87 86 74 Pulse Source Monitor Monitor Monitor Temp 98 F Temp Source Temporal Pulse Oximetry (%) 97 99 98 Oxygen Delivery Method room air room air room air Intake Visit Reasons: 3 M FU Chief Complaint: Diabetes Is patient in pain?: No Allergies Penicillins Allergy (Severe, Verified 04/05/24 14:27) Rash grass pollen Allergy (Intermediate, Verified 04/05/24 14:27) Unknown house dust Allergy (Intermediate, Verified 04/05/24 14:27) Unknown mold Allergy (Intermediate, Verified 04/05/24 14:27) Unknown Seasonal Allergies: Uncoded Allergy (Intermediate, Verified 04/05/24 14:27) NEEDS FOLLOW-UP Sulfa (Sulfonamide Antibiotics) Allergy (Unknown, Verified 04/05/24 14:27) Swelling neomycin Allergy (Verified 04/05/24 14:27) edeema, skin reaction lisinopril Adverse Reaction (Verified 04/05/24 14:27) cough Medications ???Medication ???Instructions ???Recorded ???Confirmed ???Type latanoprost 0.005 % eye drops 1 drp ophthalmic (eye) QDAY 04/05/24 History blood sugar diagnostic (FreeStyle #90 ea 06/13/21 04/05/24 Rx Precision Leonardo Strips) lancets (Accu-Chek Fastclix Lancet #102 ea 09/12/21 03/09/24 Rx Drum) multivitamin 1 tab PO DAILY 07/07/22 04/05/24 H istory cholecalciferol (vitamin D3) 1,250 1,250 mcg PO QWEEK #20 caps 12/1704/05/24 Rx mcg (50,000 unit) capsule lansoprazole 15 mg capsule,delayed 15 mg PO QHS 30 days #30 caps 04/05/24 History release glimepiride 4 mg tablet 4 mg PO BID 3 months #180 tabs 04/05/24 Rx metformin 500 mg tablet 500 mg PO BID #180 tabs 10/06/23 0 04/05/24 Rx Tresiba FlexTouch U-100 100 5 unit (0.05 mL) subcut QDAY #15 m L 01/05/24 04/05/24 Rx unit/mL (3 mL) subcutaneous pen (insulin degludec) brimonidine 0.2 % eye drops 1 drp ophthalmic (eye) BID 4 04/05/24 History pen needle, diabetic 32 gauge x #50 ea 01/05/24 03/09/24 Rx 5/32 (BD Ultra-Fine Naty Pen Needle) insulin lispro 100 unit/mL 5 unit (0.05 mL) subcut TID #15 mL 01/06/24 04/05/24 Rx subcutaneous pen (Admelog SoloStar U-100 Insulin lispro) atorvastatin 10 mg tablet See Rx Instructions .Route 4 04/05/24 Rx .COMPLEX #90 tabs losartan 25 mg tablet 12.5 mg (1/2 x 25 mg) PO QDAY #90 03/09/24 04/05/24 Rx tabs FreeStyle Wilfredo 3 Plus Sensor #6 ea 04/05/24 04/05/24 Rx (blood-glucose sensor) blood-glucose meter,continuous #1 ea 04/05/24 04/05/24 Rx (FreeStyle Wilfredo 3 Trimble) Have you fallen in the past year?: No PFSH Medical History (Updated 04/11/24 @ 07:[address] Sylvester Bhakta MD) Diabetes Thyroid nodule Neck mass Back pain GERD (gastroesophageal reflux disease) Lumbar radiculopathy Constipation Cough Intermittent palpitations Thyroid disease Palpitation Pain in left araya Low back pain Left hip pain Osteopenia Hyperlipidemia Health care maintenance Carotid artery disease OSCAR (acute kidney injury) Abdominal pain Bilateral impacted cerumen Flu vaccine need Vitamin D deficiency Breast cancer screening GERD (gastroesophageal reflux disease) Essential (primary) hypertension partial sigmoidectomy Thyroid disease Pneumonia Osteoarthritis Hearing problem Glaucoma Back problem Arthritis Seasonal allergies Surgical History S/P laparoscopic fundoplication Normal colonoscopy History of right breast biopsy Family History Mother Breast cancer Diabetes Father Thyroid disorder Cancer Grandfather CVA (cerebral vascular accident) Social History Smoking Status: Never smoker second hand exposure: No alcohol intake: current alcohol intake frequency: holidays/special occasions only substance use type: does not use caffeine: Yes Type: coffee Number of servings: 1 what type of physical activity do you participate in: none HPI HPI Chief Complaint: Diabetes Details: SHEYLA RAMIREZ, is a 78 F who presents to the office today for follow up. A1C is improved to 7.8% She is taking Tresiba and glimepiride. She (more content not included)... Normal [facility] Laboratory - Hematology and Cell countsOrdered By: Sylvester Bhakta on 04-05-2024 HbA1c (Bld) [Mass fraction] 7.8 % High 4.2-6.3 [facility] Internal Medicine Office Vis iton 03-09-2024 Internal Medicine Office Visit [facility] [address] [place] [address] [place] [address] OFFICE VISIT Date of Service: 03/09/24 MR#: [id number] Acct: [id number] Name: SHEYLA RAMIREZ Rep #: [id number] : 1945 Provider: Dr. Lena garcia MD Age/Sex: 78/F [place] [facility] [place]: Signed Intake Vital Signs 12/03/23 14:04 01/05/24 14:27 03/09/24 14:23 Height 5 ft 7 in 5 ft 7 in 5 ft 7 in Weight: 145 lb 8 oz BMI 22.8 BP 102/68 Blood Pressure Location Rt brachial Position Sitting Respiration 12 Pulse 86 Pulse Source Monitor Temp 98 F Temp Source Temporal Pulse Oximetry (%) 99 Oxygen Delivery Method room air Intake Visit Reasons: 3 M FU Chief Complaint: follow up chronic conditions Fiscal Officer Required: No Accompanied by: Self Is patient in pain?: No Allergies Penicillins Allergy (Severe, Verified 03/09/24 14:20) Rash grass pollen Allergy (Intermediate, Verified 03/09/24 14:20) Unknown house dust Allergy (Intermediate, Verified 03/09/24 14:20) Unknown mold Allergy (Intermediate, Verified 03/09/24 14:20) Unknown Seasonal Allergies: Uncoded Allergy (Intermediate, Verified 03/09/24 14:20) NEEDS FOLLOW-UP Sulfa (Sulfonamide Antibiotics) Allergy (Unknown, Verified 03/09/24 14:20) Swelling neomycin Allergy (Verified 03/09/24 14:20) edeema, skin reaction lisinopril Adverse Reaction (Verified 03/09/24 14:20) cough Medications ???Medication ???Instructions ???Recorded ???Confirmed ???Type latanoprost 0.005 % eye drops 1 drp ophthalmic (eye) QDAY 01/28/17 03/09/24 History blood sugar diagnostic (FreeStyle #90 ea 06/13/21 03/09/24 Rx Precision Leonardo Strips) lancets (Accu-Chek Fastclix Lancet #102 ea 09/12/21 03/09/24 Rx Drum) multivitamin 1 tab PO DAILY 07/07/22 03/09/24 History cholecalciferol (vitamin D3) 1,250 1,250 mcg PO QWEEK #20 caps 01/01/23 03/09/24 Rx mcg (50,000 unit) capsule lansoprazole 15 mg capsule,delayed 15 mg PO QHS 30 days #30 caps 07/29/23 03/09/24 History release glimepiride 4 mg tablet 4 mg PO BID 3 months #180 tabs 10/05/23 03/09/24 Rx metformin 500 mg tablet 500 mg PO BID #180 tabs 10/06/23 03/09/24 Rx Tresiba FlexTouch U-100 100 5 unit (0.05 mL) subcut QDAY #15 mL 01/05/24 03/09/24 Rx unit/mL (3 mL) subcutaneous pen (insulin degludec) blood-glucose meter,continuous #1 ea 01/05/24 03/09/24 Rx (FreeStyle Wilfredo 3 Trimble) blood-glucose sensor (FreeStyle #6 ea 01/05/24 03/09/24 Rx Wilfredo 3 Plus Sensor device) brimonidine 0.2 % eye drops 1 drp ophthalmic (eye) BID 01/05/24 03/09/24 History pen needle, diabetic 32 gauge x #50 ea 01/05/24 03/09/24 Rx 5/32 (BD Ultra-Fine Naty Pen Needle) insulin lispro 100 unit/mL 5 unit (0.05 mL) subcut TID #15 mL 01/06/24 03/09/24 Rx subcutaneous pen (Admelog SoloStar U-100 Insulin lispro) atorvastatin 10 mg tablet See Rx Instructions .Route 01/21/24 03/09/24 Rx .COMPLEX #90 tabs losartan 25 mg tablet 12.5 mg (1/2 x 25 mg) PO QDAY #90 03/09/24 03/09/24 Rx tabs Have you fallen in the past year?: No PFSH Medical History retirement current use of diluted insulin Diabetes Thyroid nodule Neck mass Back pain GERD (gastroesophageal reflux disease) Type 2 diabetes mellitus Lumbar radiculopathy Constipation Cough Intermittent palpitations Thyroid disease Palpitation Pain in left araya Low back pain Left hip pain Osteopenia Hyperlipidemia Health care maintenance Carotid artery disease OSCAR (acute kidney injury) Abdominal pain Bilateral impacted cerumen Flu vaccine need Vitamin D deficiency Breast cancer screening GERD (gastroesophageal reflux disease) Essential (primary) hypertension Diabetes mellitus type 2, controlled, without complications partial sigmoidectomy Thyroid disease Pneumonia Osteoarthritis Hearing problem Glaucoma Back problem Arthritis Seasonal allergies Surgical History S/P laparoscopic fundoplication Normal colonoscopy History of right breast biopsy Family History Mother Breast cancer Diabetes Father Thyroid disorder Cancer Grandfather CVA (cerebral vascular accident) Social History Smoking Status: Never smoker second hand exposure: No alcohol intake: current alcohol intake frequency: holidays/special occasions only substance use type: does not use caffeine: Yes Type: coffee Number of servings: 1 what type of physical activity do you participate in: none HPI HPI Chief Complaint: follow up chronic conditions Details: SHEYLA RAMIREZ, is a 78 F who presents to the office today for follow-up of her chronic conditions. No acute concerns (more content not included)... Normal [facility] 36on 02-19-2024 36 Sounds good, thanks. Normal [facility] 36 Symptoms present for about a week and a half. -she stated she has been chewing well and hydrating good. -reports no acid reflux or heartburn. Stopped taking pills to see if the heartburn would return and it didn't. She just had the fluid in her throat that keeps coming up after eating and drinking. She has never had that symptom before. -she states she has Prevacid and cannot take omeprazole because of swallowing it. States she can start taking that for a few weeks to see if it helps Normal [facility] 36 How long has this been going on? Any heartburn/reflux or other symptoms such as nausea? At this time, I would recommend returning to antacid therapy such as omeprazole for 4 weeks. I can write a prescription if needed. If no symptom improvement after that time, we can proceed with further evaluation with UGI to re-evaluate her surgical site. She may have some intermittent inflammation that may be contributing to her current symptoms that should resolve with medical therapy. Normal [facility] 36 LAPAROSCOPIC HIATAL HERNIA REPAIR, WITH MESH, WITH POSTERIOR FUNDOPLICATION AND EGD -on 09/09/23 w/ JTucker Pt stated she is having trouble swallowing and having food coming up into her esophagus. -has returned to regular diet since sx. There isnt a specific food that does it. Foods that were once okay post-op are now not working. -some nausea and no vomiting. Feels pressure on chest area and feels like she needs to burp but cannot. -not taking any medication currently Normal [facility] 36 Patient left Voicemail stating that she needs a return call to schedule an appt as she is having some problems since her Lap HH Repair with Dr Kruse on 09/09/2023. Patient did not state exactly what issues she was having. May need to return call and get the specifics. DP Normal [facility] Endocrinology Visit Reporton 01-05-2024 Endocrinology Visit Report [facility] [address] [place] [address] OFFICE VISIT Date of Service: 01/05/24 MR#: [id number] Acct: [id number] Name: SHEYLA RAMIREZ Rep #: [id number] : 1945 Provider: Omar Miller Age/Sex: 78/F [place] [facility] [place]: Signed Intake Vital Signs 10/05/23 14:35 12/03/23 14:04 01/05/24 14:27 Height 5 ft 7 in 5 ft 7 in 5 ft 7 in Weight: 143 lb 144 lb 6 oz BMI 22.4 22.6 BP 118/68 98/64 Blood Pressure Location Lt brachial Rt brachial Position Sitting Sitting Respiration 16 Pulse 71 87 Pulse Source Monitor Monitor Temp 97.8 F Temp Source Temporal Pulse Oximetry (%) 98 97 Oxygen Delivery Method room air room air Intake Visit Reasons: 3 M FU Chief Complaint: Diabetes Allergies Penicillins Allergy (Severe, Verified 01/05/24 14:33) Rash grass pollen Allergy (Intermediate, Verified 01/05/24 14:33) Unknown house dust Allergy (Intermediate, Verified 01/05/24 14:33) Unknown mold Allergy (Intermediate, Verified 01/05/24 14:33) Unknown Seasonal Allergies: Uncoded Allergy (Intermediate, Verified 01/05/24 14:33) NEEDS FOLLOW-UP Sulfa (Sulfonamide Antibiotics) Allergy (Unknown, Verified 01/05/24 14:33) Swelling neomycin Allergy (Verified 01/05/24 14:33) edeema, skin reaction lisinopril Adverse Reaction (Verified 01/05/24 14:33) cough Medications ???Medication ???Instructions ???Recorded ???Confirmed ???Type latanoprost 0.005 % eye drops 1 drp ophthalmic (eye) QDAY 01/28/17 01/05/24 History blood sugar diagnostic (FreeStyle #90 ea 06/13/21 01/05/24 Rx Precision Leonardo Strips) lancets (Accu-Chek Fastclix Lancet #102 ea 09/12/21 01/05/24 Rx Drum) multivitamin 1 tab PO DAILY 07/07/22 01/05/24 History cholecalciferol (vitamin D3) 1,250 1,250 mcg PO QWEEK #20 caps 01/01/23 01/05/24 Rx mcg (50,000 unit) capsule atorvastatin 10 mg tablet See Rx Instructions .Route 01/20/23 01/05/24 Rx .COMPLEX #90 tabs lansoprazole 15 mg capsule,delayed 15 mg PO QHS 30 days #30 caps 07/29/23 01/05/24 History release glimepiride 4 mg tablet 4 mg PO BID 3 months #180 tabs 10/05/23 01/05/24 Rx metformin 500 mg tablet 500 mg PO BID #180 tabs 10/06/23 01/05/24 Rx losartan 25 mg tablet See Rx Instructions .Route 09/24/24 11/19/24 Rx .COMPLEX #90 tabs Tresiba FlexTouch U-100 100 5 unit (0.05 mL) subcut QDAY #15 mL 01/05/24 01/05/24 Rx unit/mL (3 mL) subcutaneous pen (insulin degludec) blood-glucose meter,continuous #1 ea 01/05/24 01/05/24 Rx (FreeStyle Wilfredo 3 Trimble) blood-glucose sensor (FreeStyle #6 ea 01/05/24 01/05/24 Rx Wilfredo 3 Plus Sensor device) brimonidine 0.2 % eye drops 1 drp ophthalmic (eye) BID 01/05/24 01/05/24 History pen needle, diabetic 32 gauge x #50 ea 01/05/24 01/05/24 Rx 5/32 (BD Ultra-Fine Naty Pen Needle) insulin lispro 100 unit/mL 5 unit (0.05 mL) subcut TID #15 mL 01/06/24 Rx subcutaneous pen (Admelog SoloStar U-100 Insulin lispro) Have you fallen in the past year?: No PFSH Medical History (Updated 01/05/24 @ 15:[address] Sylvester Bhakta MD) retirement current use of diluted insulin Diabetes Thyroid nodule Neck mass Back pain GERD (gastroesophageal reflux disease) Type 2 diabetes mellitus Lumbar radiculopathy Constipation Cough Intermittent palpitations Thyroid disease Palpitation Pain in left araya Low back pain Left hip pain Osteopenia Hyperlipidemia Health care maintenance Carotid artery disease OSCAR (acute kidney injury) Abdominal pain Bilateral impacted cerumen Flu vaccine need Vitamin D deficiency Breast cancer screening GERD (gastroesophageal reflux disease) Essential (primary) hypertension Diabetes mellitus type 2, controlled, without complications partial sigmoidectomy Thyroid disease Pneumonia Osteoarthritis Hearing problem Glaucoma Back problem Arthritis Seasonal allergies Surgical History S/P laparoscopic fundoplication Normal colonoscopy History of right breast biopsy Family History Mother Breast cancer Diabetes Father Thyroid disorder Cancer Grandfather CVA (cerebral vascular accident) Social History Smoking Status: Never smoker second hand exposure: No alcohol intake: current alcohol intake frequency: holidays/special occasions only substance use type: does not use caffeine: Yes Type: coffee Number of servings: 1 what type of physical activity do you participate in: none HPI HPI Chief Complaint: Diabetes Details: SHEYLA RAMIREZ, is a 78 F who presents to the office today for follow up. 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 Normal [facility] Office Visiton 10-30-2023 Follow-up visit [id number] Sheyla Ramirez 1945 F Date Provider Department Center 10/30/2023 [id number] KRUSE [facility] ALS None Family History Family Status - Relation Status Age at Mother Father Level of Service:[id number] MA POSTOP FOLLOW UP VISIT RELATED TO ORIGINAL PX Reason for Visit and Comments: Post-op [483] - 09/02/2023 [facility] Progress Noteon 10-30-2023 Progress Note [facility] - Surgery Patient Name: Sheyla Ramirez Date: 10/30/23 S: Sheyla Ramirez follows up for a post operative visit after undergoing a laparoscopic hiatal hernia repair with posterior fundoplication on 09/09/23. She is doing well, and has reduced her PPI therapy from 3 times daily to once daily with great heartburn control and no reflux. She has minimal dysphagia if any however still limiting her diet. Bowel function is otherwise unremarkable. Allergies Allergen Reactions Grass Pollen(K-O-R-T-Swt Todd) Unknown Molds & Smuts Unknown Lisinopril Cough Neomycin Hives Penicillins Hives Seasonal Runny nose Sulfa Antibiotics Current Outpatient Medications Medication Sig Dispense Refill atorvastatin (Lipitor) 10 MG tablet Take 10 mg by mouth daily. brimonidine (AlphaGAN) 0.2 % ophthalmic solution 1 drop 2 times daily. cholecalciferol (Vitamin D-3) 1.25 MG (01611 UT) capsule Take by mouth 1 (one) time per week. glimepiride (Amaryl) 4 MG tablet Take 1 tablet (4 mg) by mouth in the morning and 1 tablet (4 mg) in the evening. Take with meals. lansoprazole (Prevacid) [address] capsule Take by mouth every morning (before breakfast). Do not crush or chew. latanoprost (Xalatan) 0.005 % ophthalmic solution INSTILL 1 DROP INTO BOTH EYES ONCE A DAY losartan (Cozaar) 25 MG tablet Take by mouth. metFORMIN (Glucophage) 500 MG tablet Take 1 tablet (500 mg) by mouth in the morning and 1 tablet (500 mg) in the evening. Take with meals. 60 tablet 1 MULTIPLE VITAMIN PO Take by mouth. nystatin (Mycostatin) 920660 UNIT/ML suspension Swish and spit 5 mL (500,000 Units) 3 times daily. Swish and spit 5 mLs by mouth three times daily for 10 days. 150 mL 1 polyethylene glycol, PEG, 3350 (Miralax) 17 g packet Take 17 g by mouth daily. No current facility-administere d medications for this visit. Past Medical History: Diagnosis Date Diabetes mellitus, type 2 (HCC) Gastro-esophageal reflux disease without esophagitis Glaucoma Hypercholesterolemia Other constipation Other intestinal obstruction unspecified as to partial versus complete obstruction (HCC) Other specified symptoms and signs involving the digestive system and abdomen Personal history of colonic polyps O: BP 122/60 (BP Location: Right arm, Patient Position: Sitting, BP Cuff Size: Large adult) Pulse 77 Temp 36.1 ?C (97 ?F) Ht 5' 7 (1.702 m) Wt 145 lb (65.8 kg) BMI 22.71 kg/m? Physical Exam: The wounds are healing well. There is no evidence of infection, seroma, erythema or hernia. Assessment/Plan Sheyla was seen today for post-op. Diagnoses and all orders for this visit: Encounter for postoperative care (Primary) Hiatal hernia GERD without esophagitis 77-year-old female status post laparoscopic hiatal hernia repair with mesh and posterior fundoplication on 09/09/2023. She is doing well, has improved symptoms with daily PPI therapy and no GERD. She is tolerating her diet. Have advanced and liberalized her diet and we discussed weaning her medication therapy after she gets to a regular diet. She may advance diet as tolerated. She may increase their activity to a normal level. Follow-up as needed. The patient was seen and examined independently and relevant data reviewed by myself. A full chart review was performed. Patient Care Team: Lena Thorne as PCP - General (Internal Medicine) Chandana Batista MD (Gastroenterology) Autumn Worley, RN as Registered Nurse (Hospital Insurance Representative Manager) Vitor Camarillo (Cardiology) [facility] 36on 10-02-2023 36 Spoke with patient and she has been advancing diet. Has tried hard boiled eggs, ground beef, shredded pork. Feels like food is slow to pass but is NOT getting stuck. Having pressure under abdomen with eating bigger meals. Discussed eating small portions but doing this more frequently throughout day. Also instructed her to have water to drink with each small bite. Will continue slowly advancing diet and will call with any further concerns. [facility] 36 ----- Message from Julian Kruse MD sent at 09/25/2023 5:24 PM EDT ----- Please call her at the end of next week to make sure she is advancing her diet, she is choosing not to eat because she wants to keep her sugars under control. Hopefully she will advance her diet as we discussed today. [facility] Progress Noteon 09-28-2023 Progress Note Chart reviewed. 30-day [facility] Transition of Care post-hospital discharge on 08/25/23 Dx: Abdominal pain. Patient had elective Bariatric surgery 09/09/23 notes copied below. Patient did not required readmission within the 30-day transition of care period. 30-day program complete case closed. Discharge Summary Wilber Coto MD (Resident) General Surgery Cosigned by: Julian Kruse MD at 09/10/2023 3:47 PM Discharge Summary Sheyla Ramirez : 1945 ADMIT DATE: 09/09/2023 DISCHARGE DATE: 09/10/23 ATTENDING PHYSICIAN: Julian Kruse MD VISIT STATUS: Admission CODE STATUS: Full Code DISCHARGE DIAGNOSES: Principal Problem: Hiatal hernia Active Problems: Gastroesophageal reflux disease without esophagitis BMI Classification: Normal Weight (BMI 18.5-24.9) HOSPITAL COURSE: Sheyla Ramirez is a 77 y.o. female who presented to [facility] on 09/09/2023 for elective bariatric surgical procedure. This patient underwent a HH repair on the day of admission. An UGI was obtained POD #1 and a clear liquid diet was subsequently started. The patient was prepared for discharge POD #1 At the time of discharge patient's vital signs were within normal limits. Patient was voiding spontaneously, tolerating a diet, ambulating independently and having bowel function. Patient's pain was controlled with PO pain meds. Pt was discharged with instructions as follows. CONSULTANTS: none SIGNIFICANT DIAGNOSTIC STUDIES: Upper GI contrast study showing no extravasation or obstruction DISCHARGE MEDICATIONS: Medication List START taking these medications ondansetron 4 MG tablet Commonly known as: Zofran Take 1 tablet (4 mg) by mouth every 8 hours as needed for nausea or vomiting for up to 7 days. oxyCODONE 5 MG immediate release tablet Commonly known as: Roxicodone Take 1 tablet (5 mg) by mouth every 6 hours as needed for severe pain (7-10) for up to 5 days. CONTINUE taking these medications atorvastatin 10 MG tablet Commonly known as: Lipitor brimonidine 0.2 % ophthalmic solution Commonly known as: AlphaGAN cholecalciferol 1.25 MG (69997 UT) capsule Commonly known as: Vitamin D-3 glimepiride 4 MG tablet Commonly known as: Amaryl lansoprazole [address] capsule Commonly known as: Prevacid latanoprost 0.005 % ophthalmic solution Commonly known as: Xalatan losartan 25 MG tablet Commonly known as: Cozaar metFORMIN 500 MG tablet Commonly known as: Glucophage Take 1 tablet (500 mg) by mouth in the morning and 1 tablet (500 mg) in the evening. Take with meals. MULTIPLE VITAMIN PO polyethylene glycol (PEG) 3350 17 g packet Commonly known as: Miralax Take 17 g by mouth daily. Where to Get Your Medications These medications were sent to [facility] [address] [place] [address] Hours: Thursday to Thursday 10 am to 6 pm ondansetron 4 MG tablet oxyCODONE 5 MG immediate release tablet DIET: Bariatric Diet Protocol with Clears, instruction for continued diet included in discharge instructions. ACTIVITY: No driving while on narcotic pain medication. No heavy lifting. No strenuous activity. Instructions to proceed will be provided during outpatient follow up. WOUND CARE: keep wound clean and dry DISPOSITION: Home FACILITY/HOME CARE AGENCY NAME: N/A Follow up with: Julian Kruse MD in 1-2 weeks PCP: LENA THORNE in 1-2 weeks SIGNED: Wilber Coto MD 09/10/23 1:05 PM Normal [facility] Office Visiton 09-25-2023 Follow-up visit [id number] Sheyla Ramirez 1945 F Date Provider Department Center 09/25/2023 [id number] MG ACH ALS None Family History Family Status - Relation Status Age at Mother Father Level of Service:54313 MA POSTOP FOLLOW UP VISIT RELATED TO ORIGINAL PX Reason for Visit and Comments: Post-op [483] - POST OP HH 09/02/2023 JZ Normal [facility] Progress Noteon 09-25-2023 Progress Note [facility] - Surgery Patient Name: Sheyla Ramirez Date: 09/25/23 S: Sheyla Ramirez follows up for a post operative visit after undergoing a laparoscopic hiatal hernia repair with posterior fundoplication on 09/09/23. She is doing well without any major postoperative complications. Her pain control is well controlled and she is not asking for narcotic refills. Her bowel function has returned to normal without constipation or diarrhea. Her appetite is returning to normal and she does not report any dysphagia, nausea or vomiting. Allergies Allergen Reactions Grass Pollen(K-O-R-T-Swt Todd) Unknown Molds & Smuts Unknown Lisinopril Cough Neomycin Hives Penicillins Hives Seasonal Runny nose Sulfa Antibiotics Current Outpatient Medications Medication Sig Dispense Refill atorvastatin (Lipitor) 10 MG tablet Take 10 mg by mouth daily. brimonidine (AlphaGAN) 0.2 % ophthalmic solution 1 drop 2 times daily. cholecalciferol (Vitamin D-3) 1.25 MG (19915 UT) capsule Take by mouth 1 (one) time per week. glimepiride (Amaryl) 4 MG tablet Take 1 tablet (4 mg) by mouth in the morning and 1 tablet (4 mg) in the evening. Take with meals. lansoprazole (Prevacid) [address] capsule Take by mouth every morning (before breakfast). Do not crush or chew. latanoprost (Xalatan) 0.005 % ophthalmic solution INSTILL 1 DROP INTO BOTH EYES ONCE A DAY losartan (Cozaar) 25 MG tablet Take by mouth. metFORMIN (Glucophage) 500 MG tablet Take 1 tablet (500 mg) by mouth in the morning and 1 tablet (500 mg) in the evening. Take with meals. 60 tablet 1 MULTIPLE VITAMIN PO Take by mouth. polyethylene glycol, PEG, 3350 (Miralax) 17 g packet Take 17 g by mouth daily. nystatin (Mycostatin) 790560 UNIT/ML suspension Swish and spit 5 mL (500,000 Units) 3 times daily. Swish and spit 5 mLs by mouth three times daily for 10 days. 150 mL 1 No current facility-administere d medications for this visit. Past Medical History: Diagnosis Date Diabetes mellitus, type 2 (HCC) Gastro-esophageal reflux disease without esophagitis Glaucoma Hypercholesterolemia Other constipation Other intestinal obstruction unspecified as to partial versus complete obstruction (HCC) Other specified symptoms and signs involving the digestive system and abdomen Personal history of colonic polyps O: BP 132/66 (BP Location: Left arm, Patient Position: Sitting, BP Cuff Size: Large adult) Pulse 80 Temp 36.2 ?C (97.2 ?F) Ht 5' 7 (1.702 m) Wt 148 lb (67.1 kg) BMI 23.18 kg/m? Physical Exam: The wounds are healing well. There is no evidence of infection, seroma, erythema or hernia. Assessment/Plan Sheyla was seen today for post-op. Diagnoses and all orders for this visit: Encounter for postoperative care (Primary) Hiatal hernia GERD without esophagitis Other orders - nystatin (Mycostatin) 044332 UNIT/ML suspension; Swish and spit 5 mL (500,000 Units) 3 times daily. Swish and spit 5 mLs by mouth three times daily for 10 days. 77-year-old female status post laparoscopic hiatal hernia repair with mesh on 09/09/2023. She is doing well, has mild dysphagia however overall is making good progress. She has been limiting her diet primarily due to her diabetes and not wanting to eat carbohydrates so that she can keep her sugars under control. She does have some oral thrush and a prescription for nystatin was called in. I have advanced her diet, I have asked her to continue to eat soft textured foods and again reviewed her dietary advancement. Overall she is doing well. She may advance diet as tolerated. She may increase their activity to a normal level yet refrain from lifting greater than 15# for one month after surgery. Follow-up 6 to 8 weeks. The patient was seen and examined independently and relevant data reviewed by myself. A full chart review was performed. Patient Care Team: Lena Thorne as PCP - General (Internal Medicine) Chandana Batista MD (Gastroenterology) Autumn Worley RN as Registered Nurse (Hospital Insurance Representative Manager) Vitor Camarillo (Cardiology) [facility] Progress Noteon 09-23-2023 Progress Note EMR reviewed. Patient is enrolled in 30-day [facility] Transition of Care Ambulatory program post-hospital discharge on 08/25/23 Dx: Abdominal pain. Patient had elective bariatric surgical procedure (HH repair) at [facility] on 09/09/2023 was discharged POD 1 09/10/23. Transition call made unable to reach patient call ended message read unavailable. CM to close case 09/28/23 program will be completed. [facility] Progress Noteon 09-15-2023 Progress Note 09/15/23 1632 Transitions Post-Discharge Call - Follow-Up Were there any changes to medications since previously reviewed/any questions? No Reason for admission is resolving? Yes Are you experiencing any new symptoms? No If yes, what symptoms are you experiencing? -- Was HHC initiated if ordered? No Does patient have all necessary follow up appointments scheduled? Yes Does the patient have any questions/concerns at this time? 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 No EMR reviewed. Patient is enrolled in 30-day [facility] Transition of Care Ambulatory program post-hospital discharge on 08/25/23 Dx: Abdominal pain. Patient had elective bariatric surgical procedure (HH repair) at [facility] on 09/09/2023 was discharged POD 1 09/10/23. CM outreach completed patient reports doing okay feels like improves daily continuing to take it easy has follow up post op discharge on 09/25/23 at 1115. Patient appreciative for call. CM to continue to follow. Admission Discharged 09/09/2023 [facility] Medical Surgical Unit MSU H5 Hiatal hernia Dx Care Coordination Ania Box RN (Independent Jeweler) Case Management Care Managment Initial Assessment Date: 09/10/2023 Patient Name: Sheyla Ramirez : 1945 Patient Information Source of Information: Patient Cognition/Language: WFL - Within Functional Limits Permission given to speak with patient community service representative/careg iver as indicated: Confirmation of Payer with patient/family: Yes Payer Name: Medicare [place]: No Confirmation of Primary Care Physician: Confirmed PCP Name: Lena Thorne Seen in last 2 years?: Yes Primary Caregiver: Self If assistance needed, confirmed caregiver ready, willing and able to care for patient at discharge: Yes Confirmed with: Living Arrangements Current Residence: House Number of Floors 1 Number of Entry Steps: 2 Bed/Bath Levels: Both first floor Facility: Facility Name: Plan to Return: Lives with: Alone Support Systems: Family members, Friends/neighbors Activities of Daily Living Ambulation: Independent Bathing/Dressing: Independent Elimination/Continen ce/Toileting: Independent Feeding: Independent Who Assists with Activities of Daily Living: Instrumental Activities of Daily Living Prescription Coverage: Yes [facility] [place] Medication Management: Independent Transportation/Shopp ing: Independent Transportation Mode: Car Needs Assistance with Transportation at Discharge: No (sister in law will transport) Meal Preparation: Independent Laundry/Cleaning: Independent Finances/Bill Paying: Independent Communication: Independent Types of Care Services/Equipment Utilized Care Services: Dialysis Type: Durable Medical Equipment: DME Provider: None Patient's Goal/Discharge Plan Patient expects to be discharged to: home with sister in law Discharge Planning Actions: Continue to follow Patient's Choice Rights and [employer] and Collaborative Relationships Disclosed as Indicated for Post-Acute Care: Interdisciplinary Team Engagement: Social Work Referral for: Additional Information: 77 yo female assigned to post procedure recovery status for surgery on 09/09/23: Hiatal hernia repair with mesh, posterior fundoplication and egd. Pt was advanced to FLD after upper gi this am. Met with pt at bedside; explained role of tcc. Pt lives alone. She is independent adls and does not use any dme. Pt states that her sister in law will be staying with her for a few weeks. She denies any needs from tcc. Ania Box RN Discharge Summary Wilber Coto MD (Resident) General Surgery Cosigned by: Julian Kruse MD at 09/10/2023 3:47 PM Discharge Summary Sheyla Ramirez : 1945 ADMIT DATE: 09/09/2023 DISCHARGE DATE: 09/10/23 ATTENDING PHYSICIAN: Julian Kruse MD VISIT STATUS: Admission CODE STATUS: Full Code DISCHARGE DIAGNOSES: Principal Problem: Hiatal hernia Active Problems: Gastroesophageal reflux disease without esophagitis BMI Classification: Normal Weight (BMI 18.5-24.9) HOSPITAL COURSE: Sheyla Ramirez is a 77 y.o. female who presented to [facility] on 09/09/2023 for elective bariatric surgical procedure. This patient underwent a HH repair on the day of admission. An UGI was obtained POD #1 and a clear liquid diet was subsequently started. The patient was prepared for discharge POD #1 At the time of discharge patient's vital signs were within normal limits. Patient was voiding spontaneously, tolerating a diet, ambulating independently and having bowel function. Patient's pain was controlled with PO pain meds. Pt was discharged with instructions as follows. CONSULTANTS: none SIGNIFICANT DIAGNOSTIC STUDIES: Upper GI contrast study showing no extravasation or obstruction DISCHARGE MEDICATIONS: Medication List START taking (more content not included)... Normal [facility] BASIC METABOLIC PANELon 08-17 Anion gap [Moles/Vol] 6 mmol/L Normal 3-13 [facility] Comment on above: Performed By: #### L AB15 ####Professional Skateboarder: KELLI CHILDS ([phone])[address] Calcium [Mass/Vol] 8.7 mg/dL Normal 8.4-10.4 [facility] Comment on above: Performed By: #### L AB15 ####Professional Skateboarder: KELLI CHILDS ([phone])[facility] ([facility])[address] [place] [address] Chloride [Moles/Vol] 106 mmol/L Normal 98-107 [facility] Comment on above: Performed By: #### L AB15 ####Professional Skateboarder: KELLI CHILDS ([phone])[facility])[address] [place] [address] [place] CO2 [Moles/Vol] 24 mmol/L Normal 22-30 [facility] Comment on above: Performed By: #### L AB15 ####Professional Skateboarder: KELLI CHILDS ([phone])[facility] ([facility])[address] [place] [address] Creatinine [Mass/Vol] 0.53 mg/dL Normal 0.52-1.04 [facility] Comment on above: Performed By: #### L AB15 ####Professional Skateboarder: KELLI CHILDS ([phone])[facility] ([facility])[address] [place] [address] [place] GLOMERULAR FILTRATION RATE ML/MIN/1.73 SQ M.PREDICTED >90.0 Normal >60.0 [facility] Comment on above: Result Comment: Calc ulation based on the Chronic Kidney Disease Epidemiology Collaboration (CKD-EPI) equation refit without adjustment for race Performed By: #### L AB15 ####Professional Skateboarder: KELLI CHILDS ([id number])[facility] ([facility])[address] [place] [address] [place] Glucose [Mass/Vol] 177 mg/dL High 70-100 [facility] Comment on above: Performed By: #### L AB15 ####Professional Skateboarder: KELLI CHILDS ([phone])[facility])[address] [place] [address] [place] Potassium [Moles/Vol] 4.2 mmol/L Normal 3.5-5.1 [facility] Comment on above: Performed By: #### L AB15 ####Professional Skateboarder: KELLI CHILDS ([id number])[facility] ([facility])[address] [place] [address] [place] Sodium [Moles/Vol] 136 mmol/L Normal 135-145 [facility] Comment on above: Performed By: #### L AB15 ####Professional Skateboarder: KELLI CHILDS ([phone])[facility] ([facility])[address] [place] [address] [place] Urea nitrogen [Mass/Vol] 11 mg/dL Normal 7-17 [facility] Comment on above: Performed By: #### L AB15 ####Professional Skateboarder: KELLI CHILDS ([phone])[facility] ([address] Basic metabolic 1998 panelon 09-10-2023 Anion gap [Moles/Vol] 6 mmol/L 3 - 13 mmol/L [facility] Calcium [Mass/Vol] 8.7 mg/dL 8.4 - 10. 4 mg/dL [facility] Chloride [Moles/Vol] 106 mmol/L 98 - 10 7 mmol/L [facility] CO2 [Moles/Vol] 24 mmol/L 22 - 30 mmol/L [facility] Creatinine [Mass/Vol] 0.53 mg/dL 0.52 - 1.04 mg/dL [facility] GFR/1.73 sq M.predicted MDRD (S/P/Bld) [Vol rate/Area] - PINF [facility] Comment on above: Calculation based on the Chronic Kidney Disease Epidemiology Collaboration (CKD-EPI) equation refit without adjustment for race Glucose [Mass/Vol] 177 mg/dL High 70 - 100 mg/dL [facility] Interpretation and review of laboratory results Abnormal [facility] Potassium [Moles/Vol] 4.2 mmol/L 3.5 - 5.1 mmol/L [facility] Sodium [Moles/Vol] 136 mmol/L 135 - 145 mmol/L [facility] Urea nitrogen [Mass/Vol] 11 mg/dL 7 - 17 mg/d L [facility] CARECOORDon 09-10-2023 [place] Care Managment Initial Assessment Date: 09/10/2023 Patient Name: Sheyla Ramirez : 1945 Patient Information Source of Information: Patient Cognition/Language: WFL - Within Functional Limits Permission given to speak with patient community service representative/careg iver as indicated: Confirmation of Payer with patient/family: Yes Payer Name: Medicare [place]: No Confirmation of Primary Care Physician: Confirmed PCP Name: Lena Thorne Seen in last 2 years?: Yes Primary Caregiver: Self If assistance needed, confirmed caregiver ready, willing and able to care for patient at discharge: Yes Confirmed with: Living Arrangements Current Residence: House Number of Floors 1 Number of Entry Steps: 2 Bed/Bath Levels: Both first floor Facility: Facility Name: Plan to Return: Lives with: Alone Support Systems: Family members, Friends/neighbors Activities of Daily Living Ambulation: Independent Bathing/Dressing: Independent Elimination/Continen ce/Toileting: Independent Feeding: Independent Who Assists with Activities of Daily Living: Instrumental Activities of Daily Living Prescription Coverage: Yes [facility] [place] Medication Management: Independent Transportation/Shopp ing: Independent Transportation Mode: Car Needs Assistance with Transportation at Discharge: No (sister in law will transport) Meal Preparation: Independent Laundry/Cleaning: Independent Finances/Bill Paying: Independent Communication: Independent Types of Care Services/Equipment Utilized Care Services: Dialysis Type: Durable Medical Equipment: DME Provider: None Patient's Goal/Discharge Plan Patient expects to be discharged to: home with sister in law Discharge Planning Actions: Continue to follow Patient's Choice Rights and [employer] and Collaborative Relationships Disclosed as Indicated for Post-Acute Care: Interdisciplinary Team Engagement: Social Work Referral for: Additional Information: 77 yo female assigned to post procedure recovery status for surgery on 09/09/23: Hiatal hernia repair with mesh, posterior fundoplication and egd. Pt was advanced to FLD after upper gi this am. Met with pt at bedside; explained role of tcc. Pt lives alone. She is independent adls and does not use any dme. Pt states that her sister in law will be staying with her for a few weeks. She denies any needs from tcc. Ania Box RN Normal [facility] CBC (HEMOGRAM)on 09-10-2023 Erythrocyte distribution width (RBC) [Ratio] 13.2 % Normal 11.5-15.0 [facility] Comment on above: Performed By: #### L [id number] ####Professional Skateboarder: KELLI CHILDS ([phone])[address] Hematocrit (Bld) [Volume fraction] 35.5 % Normal 35.0-47.0 [facility] Comment on above: Performed By: #### L [id number] ####Professional Skateboarder: KELLI [id number])[facility] ([facility])[address] [place] [address] Hemoglobin (Bld) [Mass/Vol] 11.7 g/dL Normal 11.7-16.0 [facility] Comment on above: Performed By: #### L [id number] ####Professional Skateboarder: KELLI CHILDS ([phone])[facility])[address] [place] [address] MCH (RBC) [Entitic mass] 28.9 pg Normal 26.0-34.0 [facility] Comment on above: Performed By: #### L AB294 ####Professional Skateboarder: KELLI CHILDS ([id number])[facility])[address] [place] [address] MCHC 33.0 % Normal 30.5-36.0 [facility] Comment on above: Performed By: #### L AB294 ####Professional Skateboarder: KELLI CHILDS ([id number])[facility])[address] [place] [address] MCV (RBC) [Entitic vol] 87.7 fL Normal 77.0-99.0 [facility] Comment on above: Performed By: #### L [id number] ####Professional Skateboarder: KELLI CHILDS ([phone])[facility] ([facility])[address] [place] [address] Platelet mean volume (Bld) [Entitic vol] 10.9 fL Normal 9.0-12.7 [facility] Comment on above: Performed By: #### L [id number] ####Professional Skateboarder: KELLI CHILDS ([id number])[facility])[address] [place] [address] Platelets (Bld) [#/Vol] 202 10*3/uL Normal 140-440 [facility] Comment on above: Performed By: #### L [id number] ####Professional Skateboarder: KELLI CHILDS ([id number])[facility])[address] [place] [address] RBC (Bld) [#/Vol] 4.05 10*6/uL Normal 3.80-5.20 [facility] Comment on above: Performed By: #### L AB294 ####Professional Skateboarder: KELLI CHILDS ([id number])[facility] [place] [address] WBC (Bld) [#/Vol] 11.0 10*3/uL High 3.6-10.7 [facility] Comment on above: Performed By: #### L [id number] ####Professional Skateboarder: KELLI CHILDS ([id number])[facility] [place] [address] CBC panel Auto (Bld)on 09-09 Erythrocyte distribution width (RBC) [Ratio] 13.2 % 11.5 - 15.0 % [facility] Hematocrit (Bld) [Volume fraction] 35.5 % 35.0 - 47.0 % [facility] Hemoglobin (Bld) [Mass/Vol] 11.7 g/dL 11.7 - 16.0 g/dL [facility] Interpretation and review of laboratory results Abnormal [facility] MCH (RBC) [Entitic mass] 28.9 pg 26. 0 - 34.0 pg [facility] MCHC (RBC) [Mass/Vol] 33.0 % 30.5 - 36.0 % [facility] MCV (RBC) [Entitic vol] 87.7 fL 77.0 - 99.0 fL [facility] Platelet mean volume (Bld) [Entitic vol] 10.9 fL 9.0 - 12.7 fL [facility] Platelets (Bld) [#/Vol] 202 10*3/uL 140 - 440 10*3/uL [facility] RBC (Bld) [#/Vol] 4.05 10*6/uL 3.80 - 5.2 0 10*6/uL [facility] WBC (Bld) [#/Vol] 11.0 10*3/uL High 3.6 - 10.7 10*3/uL [facility] ECG 12-LEADon 09-10-2023 ECG 12-LEAD IMPRESSION: Sinus rhythm LVH by voltage Inferior infarct, age indeterminate Electronically Signed On 09-10-2023 08:40:10 EDT by Man Cuenca [facility] IDNon 09-10-2023 IDN The patient is The patient's goals for the shift include The clinical goals for the shift include Over the shift, the patient did not make progress toward the following goals. Barriers to progression include . Recommendations to address these barriers include . Normal [facility] IDN The patient is The patient's goals for the shift include The clinical goals for the shift include Over the shift, the patient did not make progress toward the following goals. Barriers to progression include . Recommendations to address these barriers include . Normal [facility] Laboratory - Chemistry and C hemistry - challengeon 09-10-2023 Glucose [Mass/Vol] 203 mg/dL High 70 - 100 mg/dL [facility] Glucose [Mass/Vol] 149 mg/dL High 70 - 100 mg/dL [facility] No Panel Informationon 09-09 Interpretation and review of laboratory results Abnormal [facility] [employer] Performed by: [facility], [address] [place] [address] CLIA ID: [id number] [facility] Interpretation and review of laboratory results Abnormal [facility] Performed by: [facility], [address] [place] [address] CLIA ID: [id number] [facility] Sinus rhythm LVH by voltage Inferior infarct, age indeterminate Electronically Signed On 09-10-2023 08:40:10 EDT by Man Celestin CV Man Godoy MD - 09/10/2023 IMPRESSION: Sinus rhythm LVH by voltage Inferior infarct, age indeterminate Electronically Signed On 09-10-2023 08:40:10 EDT by Man Celestin [facility] No Panel InformationOrdered By: Man Celestin on 09-10-2023 P [place] 57 degrees [facility] [employer] Work Phone: MA Interval 148 ms [facility] [employer] Work Phone: QRS [place] -7 degrees [facility] [employer] Work Phone: QRSD Interval 76 ms [facility] 42cm Work Phone: QT Interval 346 ms [facility] [employer] Work Phone: QTC Interval 393 ms [employer] Work Phone: T Wave [place] -8 degrees [employer] Work Phone: [employer] Work Phone: Progress Noteon 09-10-2023 Progress Note Negative Normal [facility] Progress Note Attestation signed by Julian Kruse MD at 09/10/2023 11:11 AM [facility] - [facility] Patient Name: Sheyla Ramirez Date: 09/10/23 MIS-General Surgery/Bariatric Progress Note Subjective: The patient is doing well, postoperative day #1 from [facility]. No nausea, vomiting, or adverse events overnight. Scheduled Meds:acetaminophen, 1,000 mg, IntraVENous, q8h enoxaparin, 40 mg, SubCUTAneous, q12h insulin lispro, 0-12 Units, SubCUTAneous, TID WC And insulin lispro, 0-12 Units, SubCUTAneous, Nightly pantoprazole, 40 mg, IntraVENous, Daily sodium chloride 0.9%, 10 mL, IntraVENous, 2 times per day Continuous Infusions:sodium chloride 0.45 % with KCl 20 mEq, 100 mL/hr, Last Rate: 100 mL/hr (09/10/23 0126) PRN Meds:PRN medications: albuterol, dextrose, dextrose, glucagon (rDNA), glucose, HYDROmorphone, naloxone, ondansetron ODT OR ondansetron, oxyCODONE, sodium chloride, sodium chloride 0.9% Allergies Allergen Reactions Grass Pollen(K-O-R-T-Swt Todd) Unknown Molds & Smuts Unknown Lisinopril Cough Neomycin Hives Penicillins Hives Seasonal Runny nose Sulfa Antibiotics Objective: Patient Vitals for the past 24 hrs: BP Temp Temp src Pulse Resp SpO2 09/10/23 0916 124/56 36.9 ?C (98.4 ?F) Temporal 61 20 100 % 09/10/23 0552 124/62 36.8 ?C (98.3 ?F) Temporal 59 18 97 % 09/10/23 0118 122/62 36.7 ?C (98 ?F) Temporal 76 18 97 % 09/09/23 2055 129/61 36.6 ?C (97.9 ?F) Temporal 67 18 98 % 09/09/23 1700 143/70 36.7 ?C (98.1 ?F) Temporal 64 12 99 % 09/09/23 1324 129/66 36.3 ?C (97.3 ?F) Temporal 58 16 96 % 09/09/23 1142 126/76 36.2 ?C (97.2 ?F) Temporal 69 14 95 % Average, Min, and Max for last 24 hours Vitals: TEMPERATURE: Temp Av.6 ?C (97.9 ?F) Min: 36.2 ?C (97.2 ?F) Max: 36.9 ?C (98.4 ?F) RESPIRATIONS RANGE: Resp Av.6 Min: 12 Max: 20 PULSE RANGE: Pulse Av.9 Min: 58 Max: 76 BLOOD PRESSURE RANGE: Systolic (24hrs), Av , Min:122 , Max:143 ; Diastolic (24hrs), Av, Min:56, Max:76 PULSE OXIMETRY RANGE: SpO2 Av.4 % Min: 95 % Max: 100 % I/O last 3 completed shifts: In: 1500 (21.5 mL/kg) [I.V.:1500 (21.5 mL/kg)] Out: 10 (0.1 mL/kg) [Blood:10] Weight: 69.9 kg CBC: Recent Labs 09/09/23 0918 09/10/23 0108 WBC -- 11.0* HGB 11.2* 11.7 HCT 35.2 35.5 PLT -- 202 BMP: Recent Labs 09/09/23 0918 09/10/23 0108 NA 135 136 K 4.0 4.2 CL 105 106 CO2 18* 24 BUN 20* 11 CREATININE 0.54 0.53 GLUCOSE 301* 177* Abdomen: Bowel sounds were normal. The abdomen was soft and appropriately tender postoperative. Nondistended. Wounds are clean dry and intact. Assessment/Plan: Postoperative day #1, Lap GI/DVT prophylaxis, continue SQ Lovenox UGI normal, no signs of extravasation or leak Increase activity Trial clear liquid diet Pulmonary toilet Initiate home medications, and oral pain control medications Care was discussed with the resident on service. Julian Kruse MD 09/10/2023, 11:11 AM [facility] Patient Name: Sheyla Ramirez Date: 09/10/23 MIS-General Surgery/Bariatric Progress Note Subjective: The patient is doing well, postoperative day #1 from [facility]. No nausea, vomiting, or adverse events overnight. Pain well controlled. Scheduled Meds:acetaminophen, 1,000 mg, IntraVENous, q8h enoxaparin, 40 mg, SubCUTAneous, q12h insulin lispro, 0-12 Units, SubCUTAneous, TID WC And insulin lispro, 0-12 Units, SubCUTAneous, Nightly pantoprazole, 40 mg, IntraVENous, Daily sodium chloride 0.9%, 10 mL, IntraVENous, 2 times per day Continuous Infusions:sodium chloride 0.45 % with KCl 20 mEq, 100 mL/hr, Last Rate: 100 mL/hr (09/10/23 0126) PRN Meds:PRN medications: albuterol, dextrose, dextrose, glucagon (rDNA), glucose, HYDROmorphone, naloxone, ondansetron ODT OR ondansetron, oxyCODONE, sodium chloride, sodium chloride 0.9% Allergies Allergen Reactions Grass Pollen(K-O-R-T-Swt Todd) Unknown Molds & Smuts Unknown Lisinopril Cough Neomycin Hives Penicillins Hives Seasonal Runny nose Sulfa Antibiotics Objective: Patient Vitals for the past 24 hrs: BP Temp Temp src Pulse Resp SpO2 09/10/23 0916 124/56 36.9 ?C (98.4 ?F) Temporal 61 20 100 % 09/10/23 0552 124/62 36.8 ?C (98.3 ?F) Temporal 59 18 97 % 09/10/23 0118 122/62 36.7 ?C (98 ?F) Temporal 76 18 97 % 09/09/23 2055 129/61 36.6 ?C (97.9 ?F) Temporal 67 18 98 % 09/09/23 1700 143/70 36.7 ?C (98.1 ?F) Temporal 64 12 99 % 09/09/23 1324 129/66 36.3 ?C (97.3 ?F) Temporal 58 16 96 % 09/09/23 1142 126/76 36.2 ?C (97.2 ?F) Temporal 69 14 95 % 09/09/23 1030 102/65 36.1 ?C (97 ?F) -- 55 (!) 11 96 % 09/09/23 1015 108/54 -- -- 64 12 94 % 09/09/23 1000 102/55 -- -- 66 14 94 % 09/09/23 0945 102/59 -- -- 66 18 95 (more content not included)... [facility] Vital signsOrdered By: Man Celestin on 09-10-2023 Heart rate 77 /min bpm [employer] Work Phone: XR Abdomen and RF Gastrointe stinal tract upper W contrast Diony 09-10-2023 Changes consistent with Toupet fundoplication. No extravasation or obstruction. Report Dictated on Electronically Signed By: Kit Patel MD Electronically Signed Date/Time: 09/10/2023 11:06 AM [facility] [employer] Patient Name: SHEYLA RAMIREZ : 1945 Exam Date/Time: 09/10/2023 08:11 Procedure: FL UPPER GI WITH KUB Ordering Provider: MUÑIZ SAMANTHA Reason For Exam: postop hiatal hernia repair GASTROGRAFIN UPPER GI SERIES CLINICAL INDICATIONS: Postop day one Toupet fundoplication and hiatal hernia repair. Evaluate for leak. FLUOROSCOPY DOSE: Ka,r= 146.7 mGy FINDINGS: Preliminary film demonstrates left basilar atelectasis, presumably post surgical changes. The exam was performed using Gastrografin orally as requested. There is narrowing of the distal end of the esophagus and deformity of the gastric fundus consistent with post surgical changes in accordance with Toupet fundoplication. There are no signs of contrast extravasation or obstruction. The remainder of the esophagus is otherwise unremarkable. There is limited visualization of the stomach that shows contrast emptying into the duodenum without obstruction. [facility] Kit Patel MD - 09/10/2023 Patient Name: SHEYLA RAMIREZ : 1945 Exam Date/Time: 09/10/2023 08:11 Procedure: FL UPPER GI WITH KUB Ordering Provider: MUÑIZ SAMANTHA Reason For Exam: postop hiatal hernia repair GASTROGRAFIN UPPER GI SERIES CLINICAL INDICATIONS: Postop day one Toupet fundoplication and hiatal hernia repair. Evaluate for leak. FLUOROSCOPY DOSE: Ka,r= 146.7 mGy FINDINGS: Preliminary film demonstrates left basilar atelectasis, presumably post surgical changes. The exam was performed using Gastrografin orally as requested. There is narrowing of the distal end of the esophagus and deformity of the gastric fundus consistent with post surgical changes in accordance with Toupet fundoplication. There are no signs of contrast extravasation or obstruction. The remainder of the esophagus is otherwise unremarkable. There is limited visualization of the stomach that shows contrast emptying into the duodenum without obstruction. IMPRESSION: Changes consistent with Toupet fundoplication. No extravasation or obstruction. Report Dictated on Electronically Signed By: Kit Patel MD Electronically Signed Date/Time: 09/10/2023 11:06 AM EDT [facility] Radiology Study observation (narrative) [facility] alth XR Abdomen and RF Gastrointe stinal tract upper W contrast POOrdered By: Kit Patel on 09-10-2023 [facility] BASIC METABOLIC PANELon 08-17 Anion gap [Moles/Vol] 12 mmol/L Normal 3-13 [facility] Comment on above: Performed By: #### L AB15 ####Professional Skateboarder: KELLI CHILDS ([phone])[facility] [place] [address] Calcium [Mass/Vol] 8.9 mg/dL Normal 8.4-10.4 [facility] Comment on above: Performed By: #### L AB15 ####Professional Skateboarder: KELLI CHILDS ([phone])[facility] ([facility])[address] [place] [address] Chloride [Moles/Vol] 105 mmol/L Normal 98-107 [facility] Comment on above: Performed By: #### L AB15 ####Professional Skateboarder: KELLI CHILDS ([phone])[facility] ([facility])[address] [place] [address] CO2 [Moles/Vol] 18 mmol/L Low 22-30 [facility] Comment on above: Performed By: #### L AB15 ####Professional Skateboarder: KELLI CHILDS ([phone])[facility] ([facility])[address] [place] [address] Creatinine [Mass/Vol] 0.54 mg/dL Normal 0.52-1.04 [facility] Comment on above: Performed By: #### L AB15 ####Professional Skateboarder: KELLI CHILDS ([phone])[facility])[address] [place] [address] GLOMERULAR FILTRATION RATE ML/MIN/1.73 SQ M.PREDICTED >90.0 Normal >60.0 [facility] Comment on above: Result Comment: Calc ulation based on the Chronic Kidney Disease Epidemiology Collaboration (CKD-EPI) equation refit without adjustment for race Performed By: #### L AB15 ####Professional Skateboarder: KELLI CHILDS ([phone])[facility] ([facility])[address] [place] [address] [place] Glucose [Mass/Vol] 301 mg/dL High 70-100 [facility] Comment on above: Performed By: #### L AB15 ####Professional Skateboarder: KELLI CHILDS ([phone])[facility] ([facility])[address] [place] [address] [place] Potassium [Moles/Vol] 4.0 mmol/L Normal 3.5-5.1 [facility] Comment on above: Performed By: #### L AB15 ####Professional Skateboarder: KELLI CHILDS ([phone])[facility] ([facility])[address] [place] [address] Sodium [Moles/Vol] 135 mmol/L Normal 135-145 [facility] Comment on above: Performed By: #### L AB15 ####Professional Skateboarder: KELLI CHILDS ([phone])[facility] ([facility])[address] [place] [address] Urea nitrogen [Mass/Vol] 20 mg/dL High 7-17 [facility] Comment on above: Performed By: #### L AB15 ####Professional Skateboarder: KELLI CHILDS ([phone])[facility] ([facility])[address] [place] [address] Basic metabolic 1998 panelon 09-09-2023 Anion gap [Moles/Vol] 12 mmol/L 3 - 13 mmol/L [facility] Calcium [Mass/Vol] 8.9 mg/dL 8.4 - 10. 4 mg/dL [facility] Chloride [Moles/Vol] 105 mmol/L 98 - 10 7 mmol/L [facility] CO2 [Moles/Vol] 18 mmol/L Low 22 - 30 mmol/L [facility] Creatinine [Mass/Vol] 0.54 mg/dL 0.52 - 1.04 mg/dL [facility] GFR/1.73 sq M.predicted MDRD (S/P/Bld) [Vol rate/Area] - PINF [facility] Comment on above: Calculation based on the Chronic Kidney Disease Epidemiology Collaboration (CKD-EPI) equation refit without adjustment for race Glucose [Mass/Vol] 301 mg/dL High 70 - 100 mg/dL [facility] Interpretation and review of laboratory results Abnormal [facility] Potassium [Moles/Vol] 4.0 mmol/L 3.5 - 5.1 mmol/L [facility] Sodium [Moles/Vol] 135 mmol/L 135 - 145 mmol/L [facility] Urea nitrogen [Mass/Vol] 20 mg/dL High 7 - 17 mg/d L [facility] HEMOGLOBIN AND HEMATOCRIT, B LOODon 09-09-2023 Hematocrit (Bld) [Volume fraction] 35.2 % Normal 35.0-47.0 [facility] Comment on above: Performed By: #### L [id number] ####Professional Skateboarder: KELLI CHILDS ([phone])[facility] ([facility])[address] [place] [address] Hemoglobin (Bld) [Mass/Vol] 11.2 g/dL Low 11.7-16.0 [facility] Comment on above: Performed By: #### L [id number] ####Professional Skateboarder: KELLI CHILDS ([phone])[facility] [place] [address] [place] Hemoglobin (Bld) [Mass/Vol]o n 09-09-2023 Hematocrit (Bld) [Volume fraction] 35.2 % 35.0 - 47.0 % [facility] Interpretation and review of laboratory results Abnormal [facility] Laboratory - Chemistry and C hemistry - challengeon 09-09-2023 Glucose [Mass/Vol] 183 mg/dL High 70 - 100 mg/dL [facility] Glucose [Mass/Vol] 286 mg/dL High 70 - 100 mg/dL [facility] Glucose [Mass/Vol] 246 mg/dL High 70 - 100 mg/dL [facility] Glucose [Mass/Vol] 239 mg/dL High 70 - 100 mg/dL [facility] Glucose [Mass/Vol] 275 mg/dL High 70 - 100 mg/dL [facility] Glucose [Mass/Vol] 155 mg/dL High 70 - 100 mg/dL [facility] Laboratory - Hematology and Cell countson 09-09-2023 Hemoglobin (Bld) [Mass/Vol] 11.2 g/dL Low 11.7 - 16.0 g/dL [facility] No Panel Informationon 09-08 Interpretation and review of laboratory results Abnormal [facility]formed by: [facility], [address] [place] [address] CLIA ID: [id number] [facility] Interpretation and review of laboratory results Abnormal [facility] Performed by: [facility], [address] [place] [address] CLIA ID: [id number] [facility] Interpretation and review of laboratory results Abnormal [facility] Performed by: [facility], [address] [place] [address], [facility] [address] CLIA ID: [id number] [facility] Interpretation and review of laboratory results Abnormal [facility] Performed by: [facility], [address] [place] [address] CLIA ID: [id number] [facility] Interpretation and review of laboratory results Abnormal [facility] Performed by: [facility], [address] [place] [address], [facility] [address] CLIA ID: [id number] [facility] Interpretation and review of laboratory results Abnormal [facility] Performed by: [facility], [address] [place] [address], [facility] [address] CLIA ID: [id number] [facility] Nursing Noteon 09-09-2023 Nursing Note Updated family Normal [facility] Op Noteon 09-09-2023 Op Note [facility] - [facility] Patient Name: Sheyla Ramirez OPERATIVE NOTE DATE OF PROCEDURE: 09/09/2023 SURGEON: Julian Kruse MD AEROPHYSICIST: Татьяна Muñiz PA-C PREOPERATIVE DIAGNOSIS: Symptomatic Hiatal Hernia Refractory GERD POSTOPERATIVE DIAGNOSIS: Symptomatic Hiatal Hernia Refractory GERD OPERATION: Laparoscopic Hiatal Hernia Repair with Mesh Laparoscopic Posterior Toupet Fundoplication Upper GI Endoscopy ANESTHESIA: General anesthesia ESTIMATED BLOOD LOSS: less than 50 COMPLICATIONS: None PREOPERATIVE MEDICATIONS: Ancef, Heparin HISTORY: The patient is a 77 y.o. year old female with history of above preop diagnosis. I explained the risk, benefits, expected outcome, and alternatives to the procedure. Patient understands and is in agreement to proceed with operation. PROCEDURE: The patient was brought to the operating room and placed in supine position. After initiation of general anesthesia by the Anesthesia Department, she was placed in split-leg lithotomy with his arms extended. Care was taken to pad the bony prominences. Her abdomen was shaved, prepped, and draped in a normal sterile fashion. A Veress needle was placed in the left upper quadrant. We insufflated without difficulty and exchanged this for a 12 mm trocar. A 5 mm was placed in the right upper quadrant, one inferiorly and lateral to the initial access port and one in the mid epigastrium, a 5 mm subxiphoid stab wound was created for retraction of the left lobe of the liver using the Klaus liver retractor. Upon evaluation of the diaphragm, there was a hiatal hernia noted, both anteriorly and posteriorly. Because of the abnormal visual inspection of the diaphragm the hiatal hernia was repaired. The phrenoesophageal ligament was divided using hook electrocautery exposing the left awa of the diaphragm. We continued our dissection along the anterior crural arch from left to right. The gastrohepatic ligament was incised using Bovie electrocautery, the peritoneum overlying the junction of the transversely passing fat pad at the base of the right awa was incised. We bluntly mobilized the esophagus, and reduced the GE junction into the abdomen by 5 cm. A [place] drain was used to provide appropriate retraction. The anterior and posterior vagus nerves were identified and 360 degree circumferential complete mobilization was performed. The hernia sac was from the mediastinum and completely reduced. The hernia sac was completely dissected off the distal esophagus as well as the right and left parietal pleura. The hiatal hernia crural separation measured approximately 10 cm. Multiple sutures of 0 Ethibond were used to reapproximate the left and right awa around the 50-Syrian bougie reapproximating the posterior defect created by the right and left posterior crural columns. At this point, because of the defect, a piece of biologic mesh was selected. A piece of ACell Gentrix Hiatal was utilized, rehydrated according to hide shaker's recommendations and introduced into the abdomen. It was tacked to the diaphragm, using the the bougie as a guide using a 4.8mm B shaped tacker. The tunica propria was secured to the diaphragm and the basement membrane to the wrap. We then proceeded with a posterior toupet fundoplication. The fundus was marked using a 3-0 Vicryl suture and brought in a retroesophageal plane. We proceeded with a 270? wrap posteriorly using interrupted 2-0 silk sutures securing the wrap along the right awa, posteriorly as well as along the left awa. This was performed with the bougie in place, this was then removed for endoscopy. The bougie was removed. An upper GI endoscopy was performed. The flexible gastroscope was introduced through the patient's mouth, through the esophagus, through the stomach. The air was insufflated into the stomach and the scope retroflexed. The posterior fundoplication was intact, there was no evidence of a hiatal hernia and the wrap was otherwise normal. Normal postoperative configurations. The air was evacuated and the scope was withdrawn from the patient. She tolerated the procedure well, was extubated, sent to recovery in stable condition. The skin was closed using 4-0 Monocryl. There were no qualified residents available to facilitate the procedure, as a result Татьяна Muñiz PA-C was asked to serve as the ob gyn physician assistant for this procedure. [facility] Progress Noteon 09-09-2023 Progress Note Preop blood glucose [address] [facility] Progress Noteon 09-04-2023 Progress Note Chart reviewed enrolled in 30-day [facility] Transition of Care Ambulatory program post-hospital discharge on 08/25/23 Dx: Abdominal pain. 2nd transitions call made introduced self and role. Patient reports doing fine denies any health questions or concerns reports did start her Metformin 500 mg twice a day. CM to schedule future outreach. [facility] Progress Noteon 08-28-2023 Progress Note Chart reviewed enrolled in 30-day [facility] Transition of Care Ambulatory program post-hospital discharge on 08/25/23 Dx: Abdominal pain. Unable to reach patient lvm CM to schedule future outreach. [facility] 36on 08-25-[address] [facility] 36 Cardiac ECHO & stress test performed on 08/18 obtained and reviewed - normal. Cardiac clearance obtained. Spoke to patient and let her know that she does NOT need to proceed with PAT tomorrow and we will cancel that appointment. Proceed with office appointment with Dr. Ceballos on Thursday. [facility] 36 ----- Message from Julian Kruse MD sent at 08/24/2023 4:54 PM EDT ----- Sha -she was admitted this weekend, I anticipate her going home on Thursday. She states that she had a stress test and other cardiac workup at [place], please see [facility]. She had an EGD with anesthesia this past Thursday and has her PAT appointment coming up on Thursday. I really do not see the need for PAT appointment if she has a negative cardiac workup and was just seen by anesthesia on Thursday, please verify and if so lets cancel her appointment for Thursday PAT Thanks Once we figure this out please let her know through a phone call what we did, she does not use MyChart Normal [facility] CARECOORDon 08-25-2023 CARECOORD Pt did have bm. Plan for discharge to home today. She denies any needs from tcc. Normal [facility] CARECOORD Patient had bowel movement yesterday Denies any abdominal pain, nausea, vomiting No chest pain, shortness of breath Afebrile, vital signs stable Accu-Cheks reviewed No lab data from today Plan DC home today Endocrinology team recommended to discontinue Ozempic. Recommended to continue glimepiride, started metformin 500 mg p.o. twice daily at the time of discharge. Full discharge summary to follow Normal [facility] IDNon 08-25-2023 IDN Problem: Pain - Adult Goal: Verbalizes/displays adequate comfort level or baseline comfort level Outcome: Progressing Problem: Safety - Adult Goal: Free from fall injury Outcome: Progressing Problem: Discharge Planning Goal: Discharge to home or other facility with appropriate resources Outcome: Progressing Problem: Chronic Conditions and Co-morbidities Goal: Patient's chronic conditions and co-morbidity symptoms are monitored and maintained or improved Outcome: Progressing Normal [facility] Laboratory - Chemistry and C hemistry - challengeon 08-25-2023 Glucose [Mass/Vol] 129 mg/dL High 70 - 100 mg/dL [facility] No Panel Informationon 08-24 Interpretation and review of laboratory results Abnormal [facility] Performed by: [facility], [address] [place] [address], [place] [address] CLIA ID: [id number] [facility] 36on 08-24-2023 [address] hunt office , fax#: [phone]. Normal [facility] 36 Ana , can you please attach the following on [facility] letter head and fax to the following number [phone] . Thanks Dear Dr Bhakta , I am writing about mutual patient Sheyla Santo 1945 who was seen by me at [facility] when she was hospitalized for partial bowel obstruction. These are her discharge medication regimen for diabetes. Her renal functions have been normal at the time of discharge. -Ozempic has been stopped in view of concerns that it could have contributed to hypomotility. -Glimepiride 4 mg bid with meals has been resumed -Metformin 500 mg bid with meals has been started Please let me know if you have any questions or concerns -I have attached our phone number for your reference. Thanks Jenae Vásquez MD [facility] Endocrinology Phone number: [phone] Normal [facility] IDNon 08-24-2023 IDN Problem: Pain - Adult Goal: Verbalizes/displays adequate comfort level or baseline comfort level Outcome: Progressing Problem: Safety - Adult Goal: Free from fall injury Outcome: Progressing Problem: Discharge Planning Goal: Discharge to home or other facility with appropriate resources Outcome: Progressing Problem: Chronic Conditions and Co-morbidities Goal: Patient's chronic conditions and co-morbidity symptoms are monitored and maintained or improved Outcome: Progressing Normal [facility] Laboratory - Chemistry and C hemistry - challengeon 08-24-2023 Glucose [Mass/Vol] 161 mg/dL High 70 - 100 mg/dL [facility] Glucose [Mass/Vol] 123 mg/dL High 70 - 100 mg/dL [facility] Glucose [Mass/Vol] 158 mg/dL High 70 - 100 mg/dL [facility] Glucose [Mass/Vol] 132 mg/dL High 70 - 100 mg/dL [facility] No Panel Informationon 08-23 Interpretation and review of laboratory results Abnormal [facility] Performed by: [facility], [address] [place] [address] CLIA ID: [id number] [facility] Interpretation and review of laboratory results Abnormal [facility] Performed by: [facility], [address] [place] [address] CLIA ID: [id number] [facility] Interpretation and review of laboratory results Abnormal [facility] Performed by: [facility], [address] [place] [address] CLIA ID: [id number] [facility] Interpretation and review of laboratory results Abnormal [facility] Performed by: [facility], [address] [place] [address] CLIA ID: [id number] [employer] [email or web address] Progress Noteon 08-24-2023 Progress Note Department of Internal Medicine Division of Endocrinology, Diabetes, & Metabolism Endocrinology Note Patient Name: Sheyla Ramirez : 1945 AGE: 77 y.o. Room[facility]Bed: [facility] A Admission Date: 08/21/2023 Visit Date: 08/24/2023 Reason for Endocrine Consult: dm-managed on ozempic , due to have hiatal hernia surgery soon. 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 Concern for partial large bowel obstruction HLD Hiatal hernia PLAN: Current sugars are well controlled , continue current regimen of low dose sliding scale with meals ICU goal <180 GMF goal <150 POCT BG ACHS Hypoglycemia management per protocol Carb controlled diet Recent TSH is normal ANTICIPATED ENDOCRINE HOME GOING RECOMMENDATIONS: Optimized for Discharge from Endocrine standpoint: Yes Home Going Endocrine Rx Recommendations-- Stop ozempic Resume home regimen of glimepiride Start metformin 500 mg bid with meals Outpt Follow Up-- With Dr Bhakta SUBJECTIVE/HPI: CHIEF COMPLAINT: Chief Complaint Patient presents with Abdominal Pain Patient was seen in ER yesterday where she was told she should stay for possible bowel obstruction, she decided to leave because she felt better but is now back with Abdominal pain Patient with history of Type 2 dm not on insulin , Mixed hyperlipidemia history of laparoscopic sigmoid colectomy for diverticulitis. 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 Type of DM: 2 Onset of DM: age 55 Home DM Medication Regimen: Ozempic 1 mg weekly , glimepiride 4 mg bid DM control (last A1c/glucose data): 8.4% on current admission Pertinent History of bowel obstruction in 2019 and history of laparoscopic sigmoid colectomy for diverticulitis in 2010 No known micro or macrovascular complications from diabetes Patient checks her sugar with a glucometer - overall sugars are <180 Prior medications for diabetes: Actos - weight gain , Jardiance - UTI and excoriation of skin of perineum Never been on metformin in the past She follows strict dietary changes at home. Follows low carb and limits calories to 1200/day 8: Patient seen at bedside with her friend Patient endorses to constipation. Has taken a suppository this morning. Has been passing flatus. No nausea or vomiting. Appetite has been fair. Discussed about stopping ozempic on discharge since cause for bowel obstruction has been unclear., concern that ozempic contributed to hypomotility. Patient is agreeable Discussed about use of metformin on discharge, Patient has not used this before. Discussed about possible GI side effects. Patient does not prefer swallowing pills. Discussed about crushing medicine and advised to take with meals . Patient and her friend would like to follow up with [facility] endocrine until her hernia surgery later this month. She follows with endocrine Dr Bhakta in [place] but will not be able to see her until next month and would like to have endocrine on board in [facility] in the meantime. Phone number for endocrine clinic given Advised to check sugars tid before meals and send sugar logs via my chart in 1 week. Call back parameters discussed as well Glucose Date/Time Value Ref Range Status 08/24/2023 07:24 AM 132 (H) 70 - 100 mg/dL Final 08/23/2023 08:00 PM 170 (H) 70 - 100 mg/dL Final 08/23/2023 06:17 PM 143 (H) 70 - 100 mg/dL Final 08/23/2023 01:23 PM 133 (H) 70 - 100 mg/dL Final 08/23/2023 08:23 AM 101 (H) 70 - 100 mg/dL Final 08/22/2023 08:28 PM 113 (H) 70 - 100 mg/dL Final Review of Systems ROS negative except for those mentioned in HPI. OBJECTIVE: Vitals: 08/22/23 1647 08/23/23 0530 08/23/23 1821 08/24/23 0557 BP: 115/61 136/73 151/80 144/78 BP Location: Left arm Left arm Left arm Patient Position: Sitting Lying Pulse: 81 77 88 79 Resp: 16 16 18 16 Temp: 36.7 ?C (98 ?F) 36.4 ?C (97.5 ?F) 36.8 ?C (98.3 ?F) 36.7 ?C (98.1 ?F) TempSrc: Temporal Temporal Temporal Temporal SpO2: 96% 97% 97% 99% Weight: Height: Physical Exam Vitals and nursing note reviewed. Constitutional: Appearance: Normal appearance. Comments: Ambulating around the room HENT: Head: Normocephalic and atraumatic. Skin: General: Skin is dry. Neurological: General: No focal deficit present. Mental Status: She is alert and oriented to person, place, and time. Psychiatric: Mood and Affect: Mood normal. Behavior: Behavior normal. 24 hour intake/output:No intake or output data in the 24 hours ending 08/24/23 1040 Diet: Adult diet Regular Medications (as per EMR): HomeMeds: Current Outpatient (more content not included)... Normal [facility] Progress Note Attestation signed by Julian Kruse MD at 08/24/2023 4:53 PM [facility] - Surgery [facility] Physicians Surgery Patient Name: Sheyla Ramirez Date: 08/24/23 Feels well, no nausea or vomiting. Tolerating regular diet. CT reviewed. Sigmoidoscopy reviewed, no anastomotic issues. Passing flatus. BP 144/78 (BP Location: Left arm, Patient Position: Lying) Pulse 79 Temp 36.7 ?C (98.1 ?F) (Temporal) Resp 16 Ht 5' 7 (1.702 m) Wt 150 lb (68 kg) SpO2 99% BMI 23.49 kg/m? CBC: Recent Labs 08/22/23 0440 08/23/23 0039 WBC 5.9 5.9 HGB 11.8 11.9 HCT 37.5 37.1 PLT 165 158 BMP: Recent Labs 08/22/23 0440 08/23/23 003 NA 137 138 K 3.7 4.0 CL 106 108* CO2 22 23 BUN 10 8 CREATININE 0.63 0.58 GLUCOSE 175* 96 Hepatic: Recent Labs 08/23/23 0039 ALKPHOS 65 ALT 20 AST 23 PROT 6.0* BILITOT 0.6 Abdomen: Soft, nontender, sl. distended. Plan: Obstipation, passing flatus Normal anastomosis on sigmoidoscopy per colorectal surgery Feeling well, nausea and vomiting resolved, tolerating diet, wants to go home Milk of Magnesia Add daily fiber Okay to discharge per general surgery I personally supervised my Resident/Surgical Fellow in the evaluation and management of Sheyla Ramirez in the development of a treatment plan for this patient. I personally interviewed the patient and performed an individual physical examination. In addition, I discussed the patient's condition and treatment options with them. I have also reviewed and agree with the past medical, family and social history and care plan unless otherwise noted. All of the patient's questions were answered. Total time of 35 minutes spent reviewing the patient's chart, associated and relevant data including labs and imaging as well as discussing/counselin g the patient regarding the care plan for this patient. The patient was seen and examined independently and relevant data reviewed by myself. A full chart review was performed. Department of General Surgery Surg 4 Service Daily Progress Note ADMIT DATE: 08/21/2023 TODAY'S DATE: 08/24/2023 SUBJECTIVE: No acute events overnight. Pain is controlled on current medications. Passing flatus. No BM since scope prep. ROS: Noted above unless otherwise mentioned. OBJECTIVE: VITALS: Temp: [36.7 ?C (98.1 ?F)-36.8 ?C (98.3 ?F)] 36.7 ?C (98.1 ?F) Heart Rate: [79-88] 79 Resp: [16-18] 16 BP: (144-151)/(78-80) 144/78 INTAKE/OUTPUT: No intake or output data in the 24 hours ending 08/24/23 0649 I/O last 3 completed shifts: In: 1483 (21.8 mL/kg) [P.O.:120; I.V.:1313 (19.3 mL/kg); IV Piggyback:50] Out: - (0 mL/kg) Weight: 68 kg No intake/output data recorded. PHYSICAL EXAM: Gen: NAD, A&Ox3, pain well controlled Heart: RRR, well perfused. Lungs: Symmetric chest rise, normal work of breathing, no respiratory distress. Abd: Soft, non-tender, non-distended. Ext: Non-edematous, non-erythematous, no tenderness. Skin: Warm, dry, well perfused, no obvious rashes, cellulitis or gross discoloration LABS CBC: Auto WBC Date Value Ref Range Status 08/23/2023 5.9 3.6 - 10.7 10*3/uL Final 08/22/2023 5.9 3.6 - 10.7 10*3/uL Final 08/21/2023 5.7 3.6 - 10.7 10*3/uL Final Hemoglobin Date Value Ref Range Status 08/23/2023 11.9 11.7 - 16.0 g/dL Final 08/22/2023 11.8 11.7 - 16.0 g/dL Final 08/21/2023 14.1 11.7 - 16.0 g/dL Final Platelets Date Value Ref Range Status 08/23/2023 158 140 - 440 10*3/uL Final 08/22/2023 165 140 - 440 10*3/uL Final 08/21/2023 190 140 - 440 10*3/uL Final BMP: SODIUM Date Value Ref Range Status 08/23/2023 138 135 - 145 mmol/L Final 08/22/2023 137 135 - 145 mmol/L Final 08/21/2023 138 135 - 145 mmol/L Final POTASSIUM Date Value Ref Range Status 08/23/2023 4.0 3.5 - 5.1 mmol/L Final 08/22/2023 3.7 3.5 - 5.1 mmol/L Final 08/21/2023 4.2 3.5 - 5.1 mmol/L Final CHLORIDE Date Value Ref Range Status 08/23/2023 108 (H) 98 - 107 mmol/L Final 08/22/2023 106 98 - 107 mmol/L Final 08/21/2023 104 98 - 107 mmol/L Final CARBON DIOXIDE Date Value Ref Range Status 08/23/2023 23 22 - 30 mmol/L Final 08/22/2023 22 22 - 30 mmol/L Final 08/21/2023 26 22 - 30 mmol/L Final UREA NITROGEN Date Value Ref Range Status 08/23/2023 8 7 - 17 mg/dL Final 08/22/2023 10 7 - 17 mg/dL Final 08/21/2023 14 7 - 17 mg/dL Final CREATININE Date Value Ref Range Status 08/23/2023 0.58 0.52 - 1.04 mg/dL Final 08/22/2023 0.63 0.52 - 1.04 mg/dL Final 08/21/2023 0.66 0.52 - 1.04 mg/dL Final Hepatic: AST (SGOT) Date Value Ref Range Status 08/23/2023 23 15 - 46 U/L Final 08/21/2023 31 15 - 46 U/L Final 08/20/2023 26 15 - 46 U/L Final ALT Date Value Ref Range Status (more content not included)... Normal [facility] CBC (HEMOGRAM)on 08-23-2023 Erythrocyte distribution width (RBC) [Ratio] 13.2 % Normal 11.5-15.0 [facility] Comment on above: Performed By: #### L [id number] ####Professional Skateboarder: KELLI CHILDS ([phone])[address] Hematocrit (Bld) [Volume fraction] 37.1 % Normal 35.0-47.0 [facility] Comment on above: Performed By: #### L [id number] ####Professional Skateboarder: KELLI CHILDS ([phone])[address] Hemoglobin (Bld) [Mass/Vol] 11.9 g/dL Normal 11.7-16.0 [facility] Comment on above: Performed By: #### L [id number] ####Professional Skateboarder: KELLI CHILDS ([phone])[facility] ([facility])[address] [place] [address] MCH (RBC) [Entitic mass] 28.5 pg Normal 26.0-34.0 [facility] Comment on above: Performed By: #### L [id number] ####Professional Skateboarder: KELLI CHILDS ([phone])[facility])[address] [place] [address] MCHC 32.1 % Normal 30.5-36.0 [facility] Comment on above: Performed By: #### L [id number] ####Professional Skateboarder: KELLI CHILDS ([phone])[facility])[address] [place] [address] MCV (RBC) [Entitic vol] 88.8 fL Normal 77.0-99.0 [facility] Comment on above: Performed By: #### L [id number] ####Professional Skateboarder: KELLI CHILDS ([phone])[facility] ([facility])[address] [place] [address] Platelet mean volume (Bld) [Entitic vol] 10.3 fL Normal 9.0-12.7 [facility] Comment on above: Performed By: #### L [id number] ####Professional Skateboarder: KELLI CHILDS ([phone])[facility])[address] [place] [address] Platelets (Bld) [#/Vol] 158 10*3/uL Normal 140-440 [facility] Comment on above: Performed By: #### L [id number] ####Professional Skateboarder: KELLI CHILDS ([phone])[facility])[address] [place] [address] RBC (Bld) [#/Vol] 4.18 10*6/uL Normal 3.80-5.20 [facility] Comment on above: Performed By: #### L [id number] ####Professional Skateboarder: KELLI CHILDS ([phone])[facility] [place] [address] WBC (Bld) [#/Vol] 5.9 10*3/uL Normal 3.6-10.7 [facility] Comment on above: Performed By: #### L [id number] ####Professional Skateboarder: KELLI CHILDS ([phone])[facility])[address] [place] [address] CBC panel Auto (Bld)on 08-22 Erythrocyte distribution width (RBC) [Ratio] 13.2 % 11.5 - 15.0 % [facility] Hematocrit (Bld) [Volume fraction] 37.1 % 35.0 - 47.0 % [facility] Hemoglobin (Bld) [Mass/Vol] 11.9 g/dL 11.7 - 16.0 g/dL [facility] Interpretation and review of laboratory results Normal [facility] MCH (RBC) [Entitic mass] 28.5 pg 26. 0 - 34.0 pg [facility] MCHC (RBC) [Mass/Vol] 32.1 % 30.5 - 36.0 % [facility] MCV (RBC) [Entitic vol] 88.8 fL 77.0 - 99.0 fL [facility] Platelet mean volume (Bld) [Entitic vol] 10.3 fL 9.0 - 12.7 fL [facility] Platelets (Bld) [#/Vol] 158 10*3/uL 140 - 440 10*3/uL [facility] RBC (Bld) [#/Vol] 4.18 10*6/uL 3.80 - 5.2 0 10*6/uL [facility] WBC (Bld) [#/Vol] 5.9 10*3/uL 3.6 - 10.7 10*3/uL [facility] COMPREHENSIVE METABOLIC PANE Elder 08-23-2023 Albumin [Mass/Vol] 3.4 g/dL Low 3.5-5.0 [facility] Comment on above: Performed By: #### L AB17, [id number] ####Professional Skateboarder: KELLI CHILDS ([phone])[facility] [place] [address] ALP [Catalytic activity/Vol] 65 U/L Normal 38-126 [facility] Comment on above: Performed By: #### L AB17, [id number] ####Professional Skateboarder: KELLI CHILDS ([phone])[facility])[address] [place] [address] ALT [Catalytic activity/Vol] 20 U/L Normal 0-34 [facility] Comment on above: Performed By: #### L AB17, [id number] ####Professional Skateboarder: KELLI CHILDS ([phone])[facility] ([facility])[address] [place] [address] Anion gap [Moles/Vol] 8 mmol/L Normal 3-13 [facility] Comment on above: Performed By: #### L AB17, [id number] ####Professional Skateboarder: KELLI CHILDS ([phone])[facility] ([facility])[address] [place] [address] AST [Catalytic activity/Vol] 23 U/L Normal 15-46 [facility] Comment on above: Performed By: #### L AB17, [id number] ####Professional Skateboarder: KELLI CHILDS ([phone])[facility] ([facility])[address] [place] [address] Bilirubin [Mass/Vol] 0.6 mg/dL Normal 0.2-1.3 [facility] Comment on above: Performed By: #### L AB17, [id number] ####Professional Skateboarder: KELLI CHILDS ([phone])[facility])[address] [place] [address] Calcium [Mass/Vol] 9.2 mg/dL Normal 8.4-10.4 [facility] Comment on above: Performed By: #### L AB17, [id number] ####Professional Skateboarder: KELLI CHILDS ([phone])[facility])[address] [place] [address] Chloride [Moles/Vol] 108 mmol/L High 98-107 [facility] Comment on above: Performed By: #### L AB17, [id number] ####Professional Skateboarder: KELLI CHILDS ([id number])[facility])[address] [place] [address] CO2 [Moles/Vol] 23 mmol/L Normal 22-30 [facility] Comment on above: Performed By: #### L AB17, [id number] ####Professional Skateboarder: KELLI CHILDS ([phone])[facility])[address] [place] [address] Creatinine [Mass/Vol] 0.58 mg/dL Normal 0.52-1.04 [facility] Comment on above: Performed By: #### L AB17, [id number] ####Professional Skateboarder: KELLI CHILDS ([phone])[facility])[address] [place] [address] GLOMERULAR FILTRATION RATE ML/MIN/1.73 SQ M.PREDICTED >90.0 Normal >60.0 [facility] Comment on above: Result Comment: Calc ulation based on the Chronic Kidney Disease Epidemiology Collaboration (CKD-EPI) equation refit without adjustment for race Performed By: #### L AB17, [id number] ####Professional Skateboarder: EKLLI CHILDS ([phone])[facility] ([facility])[address] [place] [address] Glucose [Mass/Vol] 96 mg/dL Normal 70-100 [facility] Comment on above: Performed By: #### L AB17, [id number] ####Professional Skateboarder: KELLI CHILDS ([id number])[facility] ([facility])[address] [place] [address] [place] Potassium [Moles/Vol] 4.0 mmol/L Normal 3.5-5.1 [facility] Comment on above: Performed By: #### L AB17, [id number] ####Professional Skateboarder: KELLI CHILDS ([phone])[facility])[address] [place] [address] Protein [Mass/Vol] 6.0 g/dL Low 6.3-8.2 [facility] Comment on above: Performed By: #### L AB17, [id number] ####Professional Skateboarder: KELLI CHILDS ([id number])[facility] ([facility])[address] [place] [address] Sodium [Moles/Vol] 138 mmol/L Normal 135-145 [facility] Comment on above: Performed By: #### L AB17, [id number] ####Professional Skateboarder: KELLI CHILDS ([id number])[facility] ([facility])[address] [place] [address] Urea nitrogen [Mass/Vol] 8 mg/dL Normal 7-17 [facility] Comment on above: Performed By: #### L AB17, [id number] ####Professional Skateboarder: KELLI CHILDS ([phone])[facility] ([facility])[address] [place] [address] Comprehensive metabolic 1998 panelon 08-23-2023 Albumin [Mass/Vol] 3.4 g/dL Low 3.5 - 5.0 g/dL [facility] ALP [Catalytic activity/Vol] 65 U/L 38 - 126 U/L [facility] ALT [Catalytic activity/Vol] 20 U/L 0 - 34 U/L [facility] Anion gap [Moles/Vol] 8 mmol/L 3 - 13 mmol/L [facility] AST [Catalytic activity/Vol] 23 U/L 15 - 46 U/L [facility] Bilirubin [Mass/Vol] 0.6 mg/dL 0.2 - 1 .3 mg/dL [facility] Calcium [Mass/Vol] 9.2 mg/dL 8.4 - 10. 4 mg/dL [facility] Chloride [Moles/Vol] 108 mmol/L High 98 - 10 7 mmol/L [facility] CO2 [Moles/Vol] 23 mmol/L 22 - 30 mmol/L [facility] Creatinine [Mass/Vol] 0.58 mg/dL 0.52 - 1.04 mg/dL [facility] GFR/1.73 sq M.predicted MDRD (S/P/Bld) [Vol rate/Area] - PINF [facility] Comment on above: Calculation based on the Chronic Kidney Disease Epidemiology Collaboration (CKD-EPI) equation refit without adjustment for race Glucose [Mass/Vol] 96 mg/dL 70 - 100 mg/dL [facility] Interpretation and review of laboratory results Abnormal [facility] Potassium [Moles/Vol] 4.0 mmol/L 3.5 - 5.1 mmol/L [facility] Protein [Mass/Vol] 6.0 g/dL Low 6.3 - 8.2 g/dL [facility] Sodium [Moles/Vol] 138 mmol/L 135 - 145 mmol/L [facility] Urea nitrogen [Mass/Vol] 8 mg/dL 7 - 17 mg/d L [facility] Consulton 08-23-2023 Consult Department of Internal Medicine Division of Endocrinology, Diabetes, & Metabolism Endocrinology Note Patient Name: Sheyla Ramirez : 1945 AGE: 77 y.o. [facility] Hospital/[facility] A Admission Date: 08/21/2023 Visit Date: 08/23/2023 Reason for Endocrine Consult: dm-managed on ozempic , due to have hiatal hernia surgery soon. 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 Concern for partial large bowel obstruction HLD Hiatal hernia PLAN: Current sugars are well controlled , continue current regimen of low dose sliding scale with meals ICU goal <180 GMF goal <150 POCT BG ACHS Hypoglycemia management per protocol Carb controlled diet Check TSH ANTICIPATED ENDOCRINE HOME GOING RECOMMENDATIONS: Optimized for Discharge from Endocrine standpoint: No Home Going Endocrine Rx Recommendations-- Given current presentation and history of bowel obstruction , Stop ozempic -patient agreeable Resume home regimen of glimepiride May consider starting metformin in place of ozempic if GI issues have resolved ( patient has not been on this before and renal functions are normal) Outpt Follow Up-- With Dr Bhakta SUBJECTIVE/HPI: CHIEF COMPLAINT: Chief Complaint Patient presents with Abdominal Pain Patient was seen in ER yesterday where she was told she should stay for possible bowel obstruction, she decided to leave because she felt better but is now back with Abdominal pain Patient with history of Type 2 dm not on insulin , Mixed hyperlipidemia history of laparoscopic sigmoid colectomy for diverticulitis. 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 Type of DM: 2 Onset of DM: age 55 Home DM Medication Regimen: Ozempic 1 mg weekly , glimepiride 2 mg bid DM control (last A1c/glucose data): 8.4% on current admission Patient feels better today Had her first meal today and has tolerated it well Pertinent History of bowel obstruction in 2019 and history of laparoscopic sigmoid colectomy for diverticulitis in 2010 No known micro or macrovascular complications from diabetes Patient checks her sugar with a glucometer - overall sugars are <180 Prior medications for diabetes: Actos - weight gain , Jardiance - UTI and excoriation of skin of perineum Never been on metformin in the past She follows strict dietary changes at home. Follows low carb and limits calories to 1200/day She required a course of prednisone in june 2023 Glucose Date/Time Value Ref Range Status 08/23/2023 08:23 AM 101 (H) 70 - 100 mg/dL Final 08/22/2023 08:28 PM 113 (H) 70 - 100 mg/dL Final 08/22/2023 04:48 PM 197 (H) 70 - 100 mg/dL Final 08/22/2023 11:13 AM 115 (H) 70 - 100 mg/dL Final 08/22/2023 10:23 AM 61 (L) 70 - 100 mg/dL Final 08/22/2023 06:19 AM 91 70 - 100 mg/dL Final Review of Systems ROS negative except for those mentioned in HPI. OBJECTIVE: Vitals: 08/22/23 0850 08/22/23 0955 08/22/23 1647 08/23/23 0530 BP: 118/60 129/65 115/61 136/73 BP Location: Left arm Left arm Patient Position: Sitting Sitting Pulse: 70 68 81 77 Resp: 18 18 16 16 Temp: 36.3 ?C (97.4 ?F) 36.7 ?C (98 ?F) 36.4 ?C (97.5 ?F) TempSrc: Temporal Temporal Temporal SpO2: 99% 97% 96% 97% Weight: Height: Physical Exam Vitals and nursing note reviewed. Constitutional: Appearance: Normal appearance. HENT: Head: Normocephalic and atraumatic. Cardiovascular: Rate and Rhythm: Normal rate and regular rhythm. Pulmonary: Effort: Pulmonary effort is normal. Abdominal: General: There is no distension. Palpations: Abdomen is soft. Tenderness: There is no abdominal tenderness. Musculoskeletal: General: No swelling. Normal range of motion. Skin: General: Skin is warm and dry. Neurological: General: No focal deficit present. Mental Status: She is alert and oriented to person, place, and time. Psychiatric: Mood and Affect: Mood normal. Behavior: Behavior normal. 24 hour intake/output: Intake/Output Summary (Last 24 hours) at 08/23/2023 1118 Last data filed at 08/22/2023 1450 Gross per 24 hour Intake 1350 ml Output -- Net 1350 ml Diet: Adult diet Easy to Chew; 4 carb choices (60 gm/meal) Medications (as per EMR): HomeMeds: Current Outpatient Medications Medication Instructions atorvastatin (LIPITOR) 10 mg, Oral, Daily brimonidine (AlphaGAN) 0.2 % ophthalmic solution 1 drop, 2 times daily cyclobenzaprine (FLEXERIL) 10 mg, Oral docusate sodium (COLACE) 100 mg, Oral, Every 12 hours glimepiride (AMARYL) 4 mg, Oral, Daily before breakfast lansoprazole (Prevacid) [address] capsule Oral, Daily before breakfast (more content not included)... Normal [facility] IDNon 08-23-2023 IDN Problem: Pain - Adult Goal: Verbalizes/displays adequate comfort level or baseline comfort level Outcome: Progressing Problem: Safety - Adult Goal: Free from fall injury Outcome: Progressing Problem: Discharge Planning Goal: Discharge to home or other facility with appropriate resources Outcome: Progressing Problem: Chronic Conditions and Co-morbidities Goal: Patient's chronic conditions and co-morbidity symptoms are monitored and maintained or improved Outcome: Progressing Normal [facility] Laboratory - Chemistry and C hemistry - challengeon 08-23-2023 Glucose [Mass/Vol] 170 mg/dL High 70 - 100 mg/dL [facility] Glucose [Mass/Vol] 143 mg/dL High 70 - 100 mg/dL [facility] Glucose [Mass/Vol] 133 mg/dL High 70 - 100 mg/dL [facility] TSH Qn 1.130 m[IU]/L [facility] Glucose [Mass/Vol] 101 mg/dL High 70 - 100 mg/dL [facility] No Panel Informationon 08-22 Interpretation and review of laboratory results Abnormal [facility] Performed by: [facility], [address] [place] [address] CLIA ID: [id number] [facility] Interpretation and review of laboratory results Abnormal [facility] Performed by: [facility], [address] [place] [address] CLIA ID: [id number] [facility] Interpretation and review of laboratory results Abnormal [facility] Performed by: [facility], [address] [place] [address] CLIA ID: [id number] [facility] Interpretation and review of laboratory results Abnormal [facility] Performed by: [facility], [address] [place] [address] CLIA ID: [id number] [facility] Progress Noteon 08-23-2023 Progress Note Nutrition rescreen completed. Patient referred to the Dietitian. A1C 8.4; Uncontrolled DM. Normal [facility] THYROID STIMULATING HORMONEo n 08-23-2023 THYROID STIMULATING HORMONE 1.130 uIU/mL Normal 0.465-4.680 [facility] Comment on above: Performed By: #### L [id number], [id number] ####Professional Skateboarder: KELLI CHILDS ([phone])[facility] [place] [address] [place] TSH Qnon 08-23-2023 Interpretation and review of laboratory results Normal [facility] BASIC METABOLIC PANELon 07-0 Anion gap [Moles/Vol] 10 mmol/L Normal 3-13 [facility] Comment on above: Performed By: #### L [id number] ####Professional Skateboarder: KELLI CHILDS ([phone])[facility] [place] [address] Calcium [Mass/Vol] 8.7 mg/dL Normal 8.4-10.4 [facility] Comment on above: Performed By: #### L [id number] ####Professional Skateboarder: KELLI CHILDS ([id number])[facility] [place] [address] [place] Chloride [Moles/Vol] 106 mmol/L Normal 98-107 [facility] Comment on above: Performed By: #### L [id number] ####Professional Skateboarder: KELLI CHILDS ([phone])[facility] ([facility])[address] [place] [address] CO2 [Moles/Vol] 22 mmol/L Normal 22-30 [facility] Comment on above: Performed By: #### L [id number] ####Professional Skateboarder: KELLI CHILDS ([phone])[facility])[address] [place] [address] Creatinine [Mass/Vol] 0.63 mg/dL Normal 0.52-1.04 [facility] Comment on above: Performed By: #### L [id number] ####Professional Skateboarder: KELLI CHILDS ([phone])[facility])[address] [place] [address] GLOMERULAR FILTRATION RATE ML/MIN/1.73 SQ M.PREDICTED >90.0 Normal >60.0 [facility] Comment on above: Result Comment: Calc ulation based on the Chronic Kidney Disease Epidemiology Collaboration (CKD-EPI) equation refit without adjustment for race Performed By: #### L [id number] ####Professional Skateboarder: KELLI CHILDS ([phone])[facility])[address] [place] [address] Glucose [Mass/Vol] 175 mg/dL High 70-100 [facility] Comment on above: Performed By: #### L [id number] ####Professional Skateboarder: KELLI CHILDS ([phone])[facility])[address] [place] [address] Potassium [Moles/Vol] 3.7 mmol/L Normal 3.5-5.1 [facility] Comment on above: Performed By: #### L [id number] ####Professional Skateboarder: KELLI CHILDS ([phone])[facility])[address] [place] [address] Sodium [Moles/Vol] 137 mmol/L Normal 135-145 [facility] Comment on above: Performed By: #### L [id number] ####Professional Skateboarder: KELLI CHILDS ([phone])[facility] ([facility])[address] [place] [address] Urea nitrogen [Mass/Vol] 10 mg/dL Normal 7-17 [facility] Comment on above: Performed By: #### L [id number] ####Professional Skateboarder: KELLI CHILDS ([phone])[facility] ([facility])[address] [place] [address] Basic metabolic 1998 panelon 08-22-2023 Anion gap [Moles/Vol] 10 mmol/L 3 - 13 mmol/L [facility] Calcium [Mass/Vol] 8.7 mg/dL 8.4 - 10. 4 mg/dL [facility] Chloride [Moles/Vol] 106 mmol/L 98 - 10 7 mmol/L [facility] CO2 [Moles/Vol] 22 mmol/L 22 - 30 mmol/L [facility] Creatinine [Mass/Vol] 0.63 mg/dL 0.52 - 1.04 mg/dL [facility] GFR/1.73 sq M.predicted MDRD (S/P/Bld) [Vol rate/Area] - PINF [facility] Comment on above: Calculation based on the Chronic Kidney Disease Epidemiology Collaboration (CKD-EPI) equation refit without adjustment for race Glucose [Mass/Vol] 175 mg/dL High 70 - 100 mg/dL [facility] Interpretation and review of laboratory results Abnormal [facility] Potassium [Moles/Vol] 3.7 mmol/L 3.5 - 5.1 mmol/L [facility] Sodium [Moles/Vol] 137 mmol/L 135 - 145 mmol/L [facility] Urea nitrogen [Mass/Vol] 10 mg/dL 7 - 17 mg/d L [facility] CARECOORDon 08-22-2023 [place] Care Managment Initial Assessment Date: 08/22/2023 Patient Name: Sheyla Ramirez : 1945 Patient Information Source of Information: Patient Cognition/Language: WFL - Within Functional Limits Permission given to speak with patient community service representative/careg iver as indicated: No Confirmation of Payer with patient/family: Yes Payer Name: Medicare : No Confirmation of Primary Care Physician: Confirmed PCP Name: Dr. Thorne Seen in last 2 years?: Yes Primary Caregiver: Self If assistance needed, confirmed caregiver ready, willing and able to care for patient at discharge: Confirmed with: Living Arrangements Current Residence: House Number of Floors 1 Number of Entry Steps: 2 Bed/Bath Levels: Both first floor Facility: Facility Name: Plan to Return: Lives with: Alone Support Systems: Family members, Friends/neighbors Activities of Daily Living Ambulation: Independent Bathing/Dressing: Independent Elimination/Continen ce/Toileting: Independent Feeding: Independent Who Assists with Activities of Daily Living: Instrumental Activities of Daily Living Prescription Coverage: Yes Pharmacy Used: [facility] Medication Management: Independent Transportation/Shopp ing: Independent Transportation Mode: Car Needs Assistance with Transportation at Discharge: No (Friend Bonnie to transport) Meal Preparation: Independent Laundry/Cleaning: Independent Finances/Bill Paying: Independent Communication: Independent Types of Care Services/Equipment Utilized Care Services: Dialysis Type: Durable Medical Equipment: Patient's Goal/Discharge Plan Patient expects to be discharged to: Home Discharge Planning Actions: No needs identified Patient's Choice Rights and [employer] and Collaborative Relationships Disclosed as Indicated for Post-Acute Care: Interdisciplinary Team Engagement: Social Work Referral for: Additional Information: Called into patient's room, Introduced self and role. Discussed discharge planning. Patient has insurance and prescription coverage. Patient lives alone and has transportation available upon discharge. Discharge plan is home, no needs anticipated. Patient verbalized understanding of discharge plan and agrees with plan. Lizbeth Valdez RN Normal [facility] CBC W Auto Differential pane l (Bld)Ordered By: Dion Hernandez on 08-22-2023 Basophils (Bld) [#/Vol] 0.0 10*3/uL 0.0 - 0.2 10*3/uL [facility] [employer] Basophils/100 WBC (Bld) 0.5 % 0.0 - 2.0 % [facility] Eosinophils (Bld) [#/Vol] 0.1 10*3/uL 0.0 - 0.5 10*3/uL [facility] Eosinophils/100 WBC (Bld) 1.7 % 0.0 - 6.0 % [facility] Erythrocyte distribution width (RBC) [Ratio] 13.1 % 11.5 - 15.0 % [facility] Hematocrit (Bld) [Volume fraction] 37.5 % 35.0 - 47.0 % [facility] Hemoglobin (Bld) [Mass/Vol] 11.8 g/dL 11.7 - 16.0 g/dL [facility] Immature granulocytes (Bld) [#/Vol] 0.0 10*3/uL NINF - 0.1 10*3/uL [facility] Immature granulocytes/100 WBC (Bld) 0.3 % 0.0 - 2.0 % [facility] Interpretation and review of laboratory results Normal [facility] Lymphocytes (Bld) [#/Vol] 2.6 10*3/uL 1.0 - 4.3 10*3/uL [facility] Lymphocytes/100 WBC (Bld) 44.0 % 15.0 - 45.0 % [facility] MCH (RBC) [Entitic mass] 27.8 pg 26. 0 - 34.0 pg [facility] MCHC (RBC) [Mass/Vol] 31.5 % 30.5 - 36.0 % [facility] MCV (RBC) [Entitic vol] 88.2 fL 77.0 - 99.0 fL [facility] Monocytes (Bld) [#/Vol] 0.5 10*3/uL 0.0 - 0.9 10*3/uL [facility] Monocytes/100 WBC (Bld) 8.1 % 5.0 - 13.0 % [facility] Neutrophils (Bld) [#/Vol] 2.7 10*3/uL 1.8 - 7.5 10*3/uL [facility] Neutrophils/100 WBC (Bld) 45.4 % 38.0 - 82.0 % [facility] Nucleated RBC/100 WBC (Bld) [Ratio] 0.0 % [facility] Platelet mean volume (Bld) [Entitic vol] 10.6 fL 9.0 - 12.7 fL [facility] Platelets (Bld) [#/Vol] 165 10*3/uL 140 - 440 10*3/uL [facility] RBC (Bld) [#/Vol] 4.25 10*6/uL 3.80 - 5.2 0 10*6/uL [facility] WBC (Bld) [#/Vol] 5.9 10*3/uL 3.6 - 10.7 10*3/uL [facility] CBC WITH AUTO DIFFERENTIALon 08-22-2023 Basophils (Bld) [#/Vol] 0.0 10*3/uL Normal 0.0-0.2 [facility] Comment on above: Performed By: #### L [id number] ####Professional Skateboarder: KELLI CHILDS ([phone])[facility])[address] [place] [address] Basophils/100 WBC (Bld) 0.5 % Normal 0.0-2.0 [facility] Comment on above: Performed By: #### L [id number] ####Professional Skateboarder: KELLI CHILDS ([phone])[facility])[address] [place] [address] Eosinophils (Bld) [#/Vol] 0.1 10*3/uL Normal 0.0-0.5 [facility] Comment on above: Performed By: #### L [id number] ####Professional Skateboarder: KELLI CHILDS ([phone])[facility] ([facility])[address] [place] [address] Eosinophils/100 WBC (Bld) 1.7 % Normal 0.0-6.0 [facility] Comment on above: Performed By: #### L [id number] ####Professional Skateboarder: KELLI CHILDS ([phone])[facility])[address] [place] [address] Erythrocyte distribution width (RBC) [Ratio] 13.1 % Normal 11.5-15.0 [facility] Comment on above: Performed By: #### L [id number] ####Professional Skateboarder: KELLI CHILDS ([phone])[facility])[address] [place] [address] Hematocrit (Bld) [Volume fraction] 37.5 % Normal 35.0-47.0 [facility] Comment on above: Performed By: #### L [id number] ####Professional Skateboarder: KELLI CHILDS ([phone])[facility])[address] [place] [address] Hemoglobin (Bld) [Mass/Vol] 11.8 g/dL Normal 11.7-16.0 [facility] Comment on above: Performed By: #### L [id number] ####Professional Skateboarder: KELLI CHILDS ([phone])[facility])[address] [place] [address] IMMATURE GRANS % 0.3 % Normal 0.0-2.0 [facility] Comment on above: Performed By: #### L [id number] ####Professional Skateboarder: KELLI CHILDS ([phone])[facility])[address] [place] [address] IMMATURE GRANS ABSOLUTE 0.0 10*3/uL Normal <0.1 [facility] Comment on above: Performed By: #### L [id number] ####Professional Skateboarder: KELLI CHILDS ([id number])[facility])[address] [place] [address] Lymphocytes (Bld) [#/Vol] 2.6 10*3/uL Normal 1.0-4.3 [facility] Comment on above: Performed By: #### L [id number] ####Professional Skateboarder: KELLI CHILDS ([phone])[address] Lymphocytes/100 WBC (Bld) 44.0 % Normal 15.0-45.0 [facility] Comment on above: Performed By: #### L [id number] ####Professional Skateboarder: KELLI CHILDS ([phone])[facility])[address] [place] [address] MCH (RBC) [Entitic mass] 27.8 pg Normal 26.0-34.0 [facility] Comment on above: Performed By: #### L [id number] ####Professional Skateboarder: KELLI CHILDS ([phone])[facility])[address] [place] [address] MCHC 31.5 % Normal 30.5-36.0 [facility] Comment on above: Performed By: #### L [id number] ####Professional Skateboarder: KELLI CHILDS ([phone])[facility] ([facility])[address] [place] [address] MCV (RBC) [Entitic vol] 88.2 fL Normal 77.0-99.0 [facility] Comment on above: Performed By: #### L [id number] ####Professional Skateboarder: KELLI CHILDS ([phone])[facility] ([facility])[address] [place] [address] Monocytes (Bld) [#/Vol] 0.5 10*3/uL Normal 0.0-0.9 [facility] Comment on above: Performed By: #### L [id number] ####Professional Skateboarder: KELLI CHILDS ([phone])[facility] ([facility])[address] [place] [address] Monocytes/100 WBC (Bld) 8.1 % Normal 5.0-13.0 [facility] Comment on above: Performed By: #### L [id number] ####Professional Skateboarder: KELLI CHILDS ([phone])[facility] ([facility])[address] [place] [address] NEUTROPHILS ABSOLUTE 2.7 10*3/uL Normal 1.8-7.5 [facility] Comment on above: Performed By: #### L [id number] ####Professional Skateboarder: KELLI CHILDS ([id number])[facility] ([facility])[address] [place] [address] Neutrophils/100 WBC (Bld) 45.4 % Normal 38.0-82.0 [facility] Comment on above: Performed By: #### L [id number] ####Professional Skateboarder: KELLI CHILDS ([phone])[facility])[address] [place] [address] NRBC 0.0 /100 WBCs Normal 0.0-2.0 [facility] Comment on above: Performed By: #### L [id number] ####Professional Skateboarder: KELLI CHILDS ([phone])[facility])[address] [place] [address] Platelet mean volume (Bld) [Entitic vol] 10.6 fL Normal 9.0-12.7 [facility] Comment on above: Performed By: #### L [id number] ####Professional Skateboarder: KELLI CHILDS ([phone])[facility] ([facility])[address] [place] [address] Platelets (Bld) [#/Vol] 165 10*3/uL Normal 140-440 [facility] Comment on above: Performed By: #### L [id number] ####Professional Skateboarder: KELLI CHILDS ([phone])[facility] ([facility])[address] [place] [address] RBC (Bld) [#/Vol] 4.25 10*6/uL Normal 3.80-5.20 [facility] Comment on above: Performed By: #### L [id number] ####Professional Skateboarder: KELLI CHILDS ([id number])[facility])[address] [place] [address] WBC (Bld) [#/Vol] 5.9 10*3/uL Normal 3.6-10.7 [facility] Comment on above: Performed By: #### L [id number] ####Professional Skateboarder: KELLI CHILDS ([phone])[facility] ([facility])[address] [place] [address] IDNon 08-22-2023 IDN Problem: Pain - Adult Goal: Verbalizes/displays adequate comfort level or baseline comfort level Outcome: Progressing Problem: Safety - Adult Goal: Free from fall injury Outcome: Progressing Problem: Discharge Planning Goal: Discharge to home or other facility with appropriate resources Outcome: Progressing Problem: Chronic Conditions and Co-morbidities Goal: Patient's chronic conditions and co-morbidity symptoms are monitored and maintained or improved Outcome: Progressing Normal [facility] IDN The patient is Moderately Stable - Low risk of patient condition declining or worsening The patient's goals for the shift include comfort/nausea control The clinical goals for the shift include comfort Problem: Pain - Adult Goal: Verbalizes/displays adequate comfort level or baseline comfort level Outcome: Progressing Problem: Safety - Adult Goal: Free from fall injury Outcome: Progressing Problem: Discharge Planning Goal: Discharge to home or other facility with appropriate resources Outcome: Progressing Problem: Chronic Conditions and Co-morbidities Goal: Patient's chronic conditions and co-morbidity symptoms are monitored and maintained or improved Outcome: Progressing Normal [facility] Laboratory - Chemistry and C hemistry - challengeon 08-22-2023 Glucose [Mass/Vol] 113 mg/dL High 70 - 100 mg/dL [facility] Glucose [Mass/Vol] 197 mg/dL High 70 - 100 mg/dL [facility] Glucose [Mass/Vol] 115 mg/dL High 70 - 100 mg/dL [facility] Glucose [Mass/Vol] 61 mg/dL Low 70 - 100 mg/dL [facility] Glucose [Mass/Vol] 91 mg/dL 70 - 100 mg/dL [facility] Glucose [Mass/Vol] 157 mg/dL High 70 - 100 mg/dL [facility] Glucose [Mass/Vol] 64 mg/dL Low 70 - 100 mg/dL [facility] Average glucose Estimated from glycated hemoglobin (Bld) [Mass/Vol] 194 mg/dL [facility] - Hematology and Cell countson 08-22-2023 HbA1c (Bld) [Mass fraction] 8.4 % High NINF - 5.7 % [facility] Comment on above: Normal less than 5.7 % Prediabetes 5.7% to 6.4% Diabetes 6.5% or higher --HgbA1C levels may not be accurate in patients who have renal disease, received recent blood transfusions, are anemic, or who have dyshemoglobinemia. No Panel Informationon 08-21 Interpretation and review of laboratory results Abnormal [facility] Performed by: [facility] MD [facility] [facility], [address] [place] [address] CLIA ID: [id number] [facility] Interpretation and review of laboratory results Abnormal [facility] Performed by: [facility], [address] [place] [address] CLIA ID: [id number] [facility] Interpretation and review of laboratory results Abnormal [facility] Performed by: [facility], [address] [place] [address] CLIA ID: [id number] [facility] Interpretation and review of laboratory results Abnormal [facility] Performed by: [facility] [place] [facility], [address] [place] [address], [place] [address] CLIA ID: [id number] [facility] Interpretation and review of laboratory results Normal [facility] Performed by: [facility] [place] [facility], [address] [place] [address], [place] [address] CLIA ID: [id number] [facility] Interpretation and review of laboratory results Abnormal [facility] Performed by: [facility] [place] [facility], [address] [place] [address], [place] [address] CLIA ID: [id number] [facility] Interpretation and review of laboratory results Abnormal [facility] Performed by: [facility], [address] [place] [address], [facility] [address] CLIA ID: [id number] [facility] [employer] [facility] Interpretation and review of laboratory results Abnormal [facility] Progress Noteon 08-22-2023 Progress Note No anastomotic stricture present on flex sig Results d/w patient Recommend GI work-up for other causes Colorectal surgery will sign off Please page with questions Val Chan MD Normal [facility] [employer] [facility] Progress Note Attestation signed by Val Chan MD at 08/27/2023 8:12 AM Attending Supervising Physician's Attestation Statement I performed a history and physical examination of the patient and discussed the findings and management with the resident physician. I reviewed and agree with the findings and plan as documented. Date of service is 08/22/2023 Department of General Surgery Surg 3 Service Daily Progress Note ADMIT DATE: 08/21/2023 TODAY'S DATE: 08/22/2023 SUBJECTIVE: No acute events overnight. Pain is well controlled on current medications. She notes she passes very little gas and hasn't had a solid bowel movement in several days upwards of a week. She doesn't have much abdominal pain but does feel full. ROS: Noted above unless otherwise mentioned. OBJECTIVE: VITALS: Temp: [35.9 ?C (96.7 ?F)-37.1 ?C (98.7 ?F)] 35.9 ?C (96.7 ?F) Heart Rate: [68-75] 72 Resp: [16-18] 18 BP: (123-148)/(61-71) 140/61 INTAKE/OUTPUT: Intake/Output Summary (Last 24 hours) at 08/22/2023 0750 Last data filed at 08/22/2023 0728 Gross per 24 hour Intake 120 ml Output -- Net 120 ml No intake/output data recorded. I/O this shift: In: 120 [P.O.:120] Out: - PHYSICAL EXAM: Gen: NAD, A&Ox3, pain well controlled Heart: RRR, well perfused. Lungs: Symmetric chest rise, normal work of breathing, no respiratory distress. Abd: Soft, non-tender, non-distended. Ext: Non-edematous, non-erythematous, no tenderness. Skin: Warm, dry, well perfused, no obvious rashes, cellulitis or gross discoloration LABS CBC: Auto WBC Date Value Ref Range Status 08/22/2023 5.9 3.6 - 10.7 10*3/uL Final 08/21/2023 5.7 3.6 - 10.7 10*3/uL Final 08/20/2023 6.4 3.6 - 10.7 10*3/uL Final Hemoglobin Date Value Ref Range Status 08/22/2023 11.8 11.7 - 16.0 g/dL Final 08/21/2023 14.1 11.7 - 16.0 g/dL Final 08/20/2023 13.1 11.7 - 16.0 g/dL Final Platelets Date Value Ref Range Status 08/22/2023 165 140 - 440 10*3/uL Final 08/21/2023 190 140 - 440 10*3/uL Final 08/20/2023 191 140 - 440 10*3/uL Final BMP: SODIUM Date Value Ref Range Status 08/22/2023 137 135 - 145 mmol/L Final 08/21/2023 138 135 - 145 mmol/L Final 08/20/2023 137 135 - 145 mmol/L Final POTASSIUM Date Value Ref Range Status 08/22/2023 3.7 3.5 - 5.1 mmol/L Final 08/21/2023 4.2 3.5 - 5.1 mmol/L Final 08/20/2023 4.1 3.5 - 5.1 mmol/L Final CHLORIDE Date Value Ref Range Status 08/22/2023 106 98 - 107 mmol/L Final 08/21/2023 104 98 - 107 mmol/L Final 08/20/2023 103 98 - 107 mmol/L Final CARBON DIOXIDE Date Value Ref Range Status 08/22/2023 22 22 - 30 mmol/L Final 08/21/2023 26 22 - 30 mmol/L Final 08/20/2023 24 22 - 30 mmol/L Final UREA NITROGEN Date Value Ref Range Status 08/22/2023 10 7 - 17 mg/dL Final 08/21/2023 14 7 - 17 mg/dL Final 08/20/2023 24 (H) 7 - 17 mg/dL Final CREATININE Date Value Ref Range Status 08/22/2023 0.63 0.52 - 1.04 mg/dL Final 08/21/2023 0.66 0.52 - 1.04 mg/dL Final 08/20/2023 0.84 0.52 - 1.04 mg/dL Final Hepatic: AST (SGOT) Date Value Ref Range Status 08/21/2023 31 15 - 46 U/L Final 08/20/2023 26 15 - 46 U/L Final ALT Date Value Ref Range Status 08/21/2023 26 0 - 34 U/L Final 08/20/2023 23 0 - 34 U/L Final ALBUMIN Date Value Ref Range Status 08/21/2023 4.5 3.5 - 5.0 g/dL Final 08/20/2023 4.2 3.5 - 5.0 g/dL Final BILIRUBIN, TOTAL Date Value Ref Range Status 08/21/2023 0.8 0.2 - 1.3 mg/dL Final 08/20/2023 0.6 0.2 - 1.3 mg/dL Final BILIRUBIN, DIRECT Date Value Ref Range Status 08/21/2023 0.0 0.0 - 0.3 mg/dL Final ALKALINE PHOSPHATASE Date Value Ref Range Status 08/21/2023 83 38 - 126 U/L Final 08/20/2023 76 38 - 126 U/L Final Current Inpatient Medications Scheduled Meds:[Transfer Hold] atorvastatin, 10 mg, Oral, Daily [Transfer Hold] brimonidine, 1 drop, Both Eyes, BID [Transfer Hold] docusate sodium, 100 mg, Oral, q12h [Transfer Hold] insulin regular, 0-6 Units, SubCUTAneous, q6h [Transfer Hold] lansoprazole, 30 mg, Oral, qAM AC [Transfer Hold] latanoprost, 1 drop, Both Eyes, Nightly [Transfer Hold] losartan, 25 mg, Oral, Daily [Transfer Hold] Non-Formulary Medication, , Oral, qPM Continuous Infusions:lactated Ringer's, 75 mL/hr, Last Rate: 75 mL/hr (08/21/230) PRN Meds:PRN medications: [Transfer Hold] acetaminophen OR [Transfer Hold] acetaminophen, [Transfer Hold] dextrose, [Transfer Hold] dextrose, [Transfer Hold] glucagon (rDNA), [Transfer Hold] glucose, [Transfer Hold] ondansetron ODT OR [Transfer Hold] ondansetron, [Transfer Hold] polyethylene glycol (PEG) 3350 ASSESSMENT: Sheyla Ramirez is a 77 y.o. female with LLQ tenderness, constipation, and PSHx of lap sigmoid 2/2 diverticulitis presenting with concern for pa (more content not included)... Normal [facility] US ABDOMEN COMPLETEon 2023 US ABDOMEN COMPLETE [facility] 1945 [id number] Exam Date/Time: 08/22/2023 13:08 Procedure: US ABDOMEN COMPLETE Ordering Provider: ZARAGOZA VENKATESH Reason For Exam: Abdominal pain, gallbladder sludge EXAM TYPE: Ultrasound abdomen complete. CLINICAL HISTORY: Abdominal pain, gallbladder sludge COMPARISON: None. TECHNIQUE: Grayscale sonographic images were obtained of the abdomen. Color Doppler was utilized. FINDINGS: Liver: The liver is normal in contour and echogenicity with no focal hepatic masses. No intra hepatic biliary ductal dilatation is identified. The common bile duct is dilated for the patient's age and measures 9 mm in diameter. Gallbladder: The gallbladder is unremarkable with no gallbladder wall thickening, pericholecystic fluid, or gallstones. No sonographic Mejia sign was elicited. Kidneys: Both kidneys are normal in contour, echogenicity, and size with no hydronephrosis or shadowing renal calculi. The right kidney measures 12.7 cm in length. The left kidney measures 10.9 cm in length. Accessory structures: The spleen is nonenlarged. The visualized portions of the pancreas are normal. The proximal aorta and IVC are normal in caliber. IMPRESSION: 1. No cholelithiasis or evidence of acute cholecystitis. 2. Mild dilatation of the common bile duct measuring up to 9 mm. Recommend correlation with LFTs for evidence of obstruction. MRI/MRCP could be considered for further evaluation. Report Dictated on Electronically Signed By: Zi Simms DR Electronically Signed Date/Time: 08/22/2023 1:[address] [facility] US Abdomenon 08-22-2023 1. No cholelithiasis or evidence of acute cholecystitis. 2. Mild dilatation of the common bile duct measuring up to 9 mm. Recommend correlation with LFTs for evidence of obstruction. MRI/MRCP could be considered for further evaluation. Report Dictated on Electronically Signed By: Zi Simms DR Electronically Signed Date/Time: 08/22/2023 1:15 PM EDT [facility] Patient Name: SHEYLA RAMIREZ : 1945 Exam Date/Time: 08/22/2023 13:08 Procedure: US ABDOMEN COMPLETE Ordering Provider: ZARAGOZA VENKATESH Reason For Exam: Abdominal pain, gallbladder sludge EXAM TYPE: Ultrasound abdomen complete. CLINICAL HISTORY: Abdominal pain, gallbladder sludge COMPARISON: None. TECHNIQUE: Grayscale sonographic images were obtained of the abdomen. Color Doppler was utilized. FINDINGS: Liver: The liver is normal in contour and echogenicity with no focal hepatic masses. No intra hepatic biliary ductal dilatation is identified. The common bile duct is dilated for the patient's age and measures 9 mm in diameter. Gallbladder: The gallbladder is unremarkable with no gallbladder wall thickening, pericholecystic fluid, or gallstones. No sonographic Mejia sign was elicited. Kidneys: Both kidneys are normal in contour, echogenicity, and size with no hydronephrosis or shadowing renal calculi. The right kidney measures 12.7 cm in length. The left kidney measures 10.9 cm in length. Accessory structures: The spleen is nonenlarged. The visualized portions of the pancreas are normal. The proximal aorta and IVC are normal in caliber. [facility] Demi, Zi Corrales MD - 08/22/2023 Patient Name: SHEYLA RAMIREZ : 1945 Exam Date/Time: 08/22/2023 13:08 Procedure: US ABDOMEN COMPLETE Ordering Provider: ZARAGOZA VENKATESH Reason For Exam: Abdominal pain, gallbladder sludge EXAM TYPE: Ultrasound abdomen complete. CLINICAL HISTORY: Abdominal pain, gallbladder sludge COMPARISON: None. TECHNIQUE: Grayscale sonographic images were obtained of the abdomen. Color Doppler was utilized. FINDINGS: Liver: The liver is normal in contour and echogenicity with no focal hepatic masses. No intra hepatic biliary ductal dilatation is identified. The common bile duct is dilated for the patient's age and measures 9 mm in diameter. Gallbladder: The gallbladder is unremarkable with no gallbladder wall thickening, pericholecystic fluid, or gallstones. No sonographic Mejia sign was elicited. Kidneys: Both kidneys are normal in contour, echogenicity, and size with no hydronephrosis or shadowing renal calculi. The right kidney measures 12.7 cm in length. The left kidney measures 10.9 cm in length. Accessory structures: The spleen is nonenlarged. The visualized portions of the pancreas are normal. The proximal aorta and IVC are normal in caliber. IMPRESSION: 1. No cholelithiasis or evidence of acute cholecystitis. 2. Mild dilatation of the common bile duct measuring up to 9 mm. Recommend correlation with LFTs for evidence of obstruction. MRI/MRCP could be considered for further evaluation. Report Dictated on Electronically Signed By: Zi Simms DR Electronically Signed Date/Time: 08/22/2023 1:15 PM EDT [facility] Radiology Study observation (narrative) Hiro Mujica alth US AbdomenOrdered By: Zi Simms on 08-22-2023 [facility] [employer] Work Phone: 36on 08-21-2023 36 Called pt back and relayed message below. Verbalized understanding Normal 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 [facility] [address] Bowser. Pt's sister called to state they are going back to ED currently. Pt went home yesterday, after seeing resident and he stated she could come back if she felt worse. Pt has same symptoms as documented in the ED note yesterday. Abdominal Pain Pt walked in through triage c/o mid ABD pain since 08/05. Pt states HX of SBO. Pt states nausea but denies vomiting. Pt A&OX4. -pt's sister wants to know if she can be direct admitted (she isnt in the contact list of the chart, but stated we could call the pt instead, since they will be in the car together) Normal [facility] BASIC METABOLIC PANELon 07-0 Anion gap [Moles/Vol] 9 mmol/L Normal 3-13 [facility] Comment on above: Performed By: #### L AB15, LAB20, LAB99 ####Professional Skateboarder: KELLI CHILDS ([phone])[address] Calcium [Mass/Vol] 9.6 mg/dL Normal 8.4-10.4 [facility] Comment on above: Performed By: #### L AB15, LAB20, LAB99 ####Professional Skateboarder: KELLI CHILDS ([phone])[facility])[address] [place] [address] Chloride [Moles/Vol] 104 mmol/L Normal 98-107 [facility] Comment on above: Performed By: #### L AB15, LAB20, LAB99 ####Professional Skateboarder: KELLI CHILDS ([phone])[facility] [place] [address] CO2 [Moles/Vol] 26 mmol/L Normal 22-30 [facility] Comment on above: Performed By: #### L AB15, LAB20, LAB99 ####Professional Skateboarder: KELLI CHILDS ([phone])[facility] ([facility])[address] [place] [address] Creatinine [Mass/Vol] 0.66 mg/dL Normal 0.52-1.04 [facility] Comment on above: Performed By: #### L AB15, LAB20, LAB99 ####Professional Skateboarder: KELLI CHILDS ([phone])[facility] ([facility])[address] [place] [address] GLOMERULAR FILTRATION RATE ML/MIN/1.73 SQ M.PREDICTED >90.0 Normal >60.0 [facility] Comment on above: Result Comment: Calc ulation based on the Chronic Kidney Disease Epidemiology Collaboration (CKD-EPI) equation refit without adjustment for race Performed By: #### L AB15, LAB20, LAB99 ####Professional Skateboarder: KELLI CHILDS ([phone])[facility] ([facility])[address] [place] [address] Glucose [Mass/Vol] 115 mg/dL High 70-100 [facility] Comment on above: Performed By: #### L AB15, LAB20, LAB99 ####Professional Skateboarder: KELLI CHILDS ([phone])[facility] ([facility])[address] [place] [address] [place] Potassium [Moles/Vol] 4.2 mmol/L Normal 3.5-5.1 [facility] Comment on above: Performed By: #### L AB15, LAB20, LAB99 ####Professional Skateboarder: KELLI CHILDS ([phone])[facility] ([facility])[address] [place] [address] [place] Sodium [Moles/Vol] 138 mmol/L Normal 135-145 [facility] Comment on above: Performed By: #### L AB15, LAB20, LAB99 ####Professional Skateboarder: KELLI CHILDS ([phone])[facility])[address] [place] [address] Urea nitrogen [Mass/Vol] 14 mg/dL Normal 7-17 [facility] Comment on above: Performed By: #### L AB15, LAB20, LAB99 ####Professional Skateboarder: KELLI CHILDS ([phone])[facility] ([facility])[address] [place] [address] Basic metabolic 1998 panelon 08-21-2023 Anion gap [Moles/Vol] 9 mmol/L 3 - 13 mmol/L [facility] Calcium [Mass/Vol] 9.6 mg/dL 8.4 - 10. 4 mg/dL [facility] Chloride [Moles/Vol] 104 mmol/L 98 - 10 7 mmol/L [facility] CO2 [Moles/Vol] 26 mmol/L 22 - 30 mmol/L [facility] Creatinine [Mass/Vol] 0.66 mg/dL 0.52 - 1.04 mg/dL [facility] GFR/1.73 sq M.predicted MDRD (S/P/Bld) [Vol rate/Area] - [facility] Comment on above: Calculation based on the Chronic Kidney Disease Epidemiology Collaboration (CKD-EPI) equation refit without adjustment for race Glucose [Mass/Vol] 115 mg/dL High 70 - 100 mg/dL [facility] Interpretation and review of laboratory results Abnormal [facility] Potassium [Moles/Vol] 4.2 mmol/L 3.5 - 5.1 mmol/L [facility] Sodium [Moles/Vol] 138 mmol/L 135 - 145 mmol/L [facility] Urea nitrogen [Mass/Vol] 14 mg/dL 7 - 17 mg/d L [facility] CBC W Auto Differential pane l (Bld)on 08-21-2023 Basophils (Bld) [#/Vol] 0.0 10*3/uL 0.0 - 0.2 10*3/uL [facility] Basophils/100 WBC (Bld) 0.5 % 0.0 - 2.0 % [facility] Eosinophils (Bld) [#/Vol] 0.0 10*3/uL 0.0 - 0.5 10*3/uL [facility] Eosinophils/100 WBC (Bld) 0.7 % 0.0 - 6.0 % [facility] Erythrocyte distribution width (RBC) [Ratio] 13.2 % 11.5 - 15.0 % [facility] Hematocrit (Bld) [Volume fraction] 43.2 % 35.0 - 47.0 % [facility] Hemoglobin (Bld) [Mass/Vol] 14.1 g/dL 11.7 - 16.0 g/dL [facility] Immature granulocytes (Bld) [#/Vol] 0.0 10*3/uL NINF - 0.1 10*3/uL [facility] Immature granulocytes/100 WBC (Bld) 0.3 % 0.0 - 2.0 % [facility] Interpretation and review of laboratory results Normal [facility] Lymphocytes (Bld) [#/Vol] 1.4 10*3/uL 1.0 - 4.3 10*3/uL [facility] Lymphocytes/100 WBC (Bld) 24.4 % 15.0 - 45.0 % [facility] MCH (RBC) [Entitic mass] 28.4 pg 26. 0 - 34.0 pg [facility] MCHC (RBC) [Mass/Vol] 32.6 % 30.5 - 36.0 % [facility] MCV (RBC) [Entitic vol] 87.1 fL 77.0 - 99.0 fL [facility] Monocytes (Bld) [#/Vol] 0.5 10*3/uL 0.0 - 0.9 10*3/uL [facility] Monocytes/100 WBC (Bld) 7.9 % 5.0 - 13.0 % [facility] Neutrophils (Bld) [#/Vol] 3.8 10*3/uL 1.8 - 7.5 10*3/uL [facility] Neutrophils/100 WBC (Bld) 66.2 % 38.0 - 82.0 % [facility] Nucleated RBC/100 WBC (Bld) [Ratio] 0.0 % [facility] Platelet mean volume (Bld) [Entitic vol] 10.3 fL 9.0 - 12.7 fL [facility] Platelets (Bld) [#/Vol] 190 10*3/uL 140 - 440 10*3/uL [facility] RBC (Bld) [#/Vol] 4.96 10*6/uL 3.80 - 5.2 0 10*6/uL [facility] WBC (Bld) [#/Vol] 5.7 10*3/uL 3.6 - 10.7 10*3/uL [facility] CBC WITH AUTO DIFFERENTIALon 08-21-2023 Basophils (Bld) [#/Vol] 0.0 10*3/uL Normal 0.0-0.2 [facility] Comment on above: Performed By: #### L [id number] ####Professional Skateboarder: KELLI CHILDS ([phone])[facility])[address] [place] [address] Basophils/100 WBC (Bld) 0.5 % Normal 0.0-2.0 [facility] Comment on above: Performed By: #### L [id number] ####Professional Skateboarder: KELLI CHILDS ([phone])[facility])[address] [place] [address] Eosinophils (Bld) [#/Vol] 0.0 10*3/uL Normal 0.0-0.5 [facility] Comment on above: Performed By: #### L [id number] ####Professional Skateboarder: KELLI CHILDS ([phone])[facility])[address] [place] [address] Eosinophils/100 WBC (Bld) 0.7 % Normal 0.0-6.0 [facility] Comment on above: Performed By: #### L [id number] ####Professional Skateboarder: KELLI CHILDS ([phone])[facility])[address] [place] [address] Erythrocyte distribution width (RBC) [Ratio] 13.2 % Normal 11.5-15.0 [facility] Comment on above: Performed By: #### L [id number] ####Professional Skateboarder: KELLI CHILDS ([phone])[facility])[address] [place] [address] Hematocrit (Bld) [Volume fraction] 43.2 % Normal 35.0-47.0 [facility] Comment on above: Performed By: #### L [id number] ####Professional Skateboarder: KELLI CHILDS ([phone])[facility])[address] [place] [address] Hemoglobin (Bld) [Mass/Vol] 14.1 g/dL Normal 11.7-16.0 [facility] Comment on above: Performed By: #### L [id number] ####Professional Skateboarder: KELLI CHILDS ([phone])[facility])[address] [place] [address] IMMATURE GRANS % 0.3 % Normal 0.0-2.0 [facility] Comment on above: Performed By: #### L [id number] ####Professional Skateboarder: KELLI CHILDS ([phone])[facility])[address] [place] [address] IMMATURE GRANS ABSOLUTE 0.0 10*3/uL Normal <0.1 [facility] Comment on above: Performed By: #### L [id number] ####Professional Skateboarder: KELLI CHILDS ([phone])[facility])[address] [place] [address] Lymphocytes (Bld) [#/Vol] 1.4 10*3/uL Normal 1.0-4.3 [facility] Comment on above: Performed By: #### L [id number] ####Professional Skateboarder: KELLI CHILDS ([phone])[facility])[address] [place] [address] Lymphocytes/100 WBC (Bld) 24.4 % Normal 15.0-45.0 [facility] Comment on above: Performed By: #### L [id number] ####Professional Skateboarder: KELLI CHILDS ([phone])[facility])[address] [place] [address] MCH (RBC) [Entitic mass] 28.4 pg Normal 26.0-34.0 [facility] Comment on above: Performed By: #### L [id number] ####Professional Skateboarder: KELLI CHILDS ([phone])[facility] ([facility])[address] [place] [address] MCHC 32.6 % Normal 30.5-36.0 [facility] Comment on above: Performed By: #### L [id number] ####Professional Skateboarder: KELLI CHILDS ([phone])[facility])[address] [place] [address] MCV (RBC) [Entitic vol] 87.1 fL Normal 77.0-99.0 [facility] Comment on above: Performed By: #### L [id number] ####Professional Skateboarder: KELLI CHILDS ([phone])[facility])[address] [place] [address] Monocytes (Bld) [#/Vol] 0.5 10*3/uL Normal 0.0-0.9 [facility] Comment on above: Performed By: #### L [id number] ####Professional Skateboarder: KELLI CHILDS ([phone])[facility] ([facility])[address] [place] [address] Monocytes/100 WBC (Bld) 7.9 % Normal 5.0-13.0 [facility] Comment on above: Performed By: #### L [id number] ####Professional Skateboarder: KELLI CHILDS ([phone])[facility])[address] [place] [address] NEUTROPHILS ABSOLUTE 3.8 10*3/uL Normal 1.8-7.5 [facility] Comment on above: Performed By: #### L [id number] ####Professional Skateboarder: KELLI CHILDS ([phone])[facility])[address] [place] [address] Neutrophils/100 WBC (Bld) 66.2 % Normal 38.0-82.0 [facility] Comment on above: Performed By: #### L [id number] ####Professional Skateboarder: KELLI CHILDS ([phone])[facility] ([facility])[address] [place] [address] NRBC 0.0 /100 WBCs Normal 0.0-2.0 [facility] Comment on above: Performed By: #### L [id number] ####Professional Skateboarder: KELLI CHILDS ([phone])[facility])[address] [place] [address] Platelet mean volume (Bld) [Entitic vol] 10.3 fL Normal 9.0-12.7 [facility] Comment on above: Performed By: #### L [id number] ####Professional Skateboarder: KELLI CHILDS ([phone])[facility])[address] [place] [address] Platelets (Bld) [#/Vol] 190 10*3/uL Normal 140-440 [facility] Comment on above: Performed By: #### L [id number] ####Professional Skateboarder: KELLI CHILDS ([id number])[facility] ([facility])[address] [place] [address] RBC (Bld) [#/Vol] 4.96 10*6/uL Normal 3.80-5.20 [facility] Comment on above: Performed By: #### L [id number] ####Professional Skateboarder: KELLI CHILDS ([phone])[facility])[address] [place] [address] WBC (Bld) [#/Vol] 5.7 10*3/uL Normal 3.6-10.7 [facility] Comment on above: Performed By: #### L [id number] ####Professional Skateboarder: KELLI CHILDS ([phone])[facility])[address] [place] [address] CT ABDOMEN PELVIS W CONTRAST on 08-21-2023 CT ABDOMEN PELVIS W CONTRAST Patient Name: SHEYLA RAMIREZ : 1945 Exam Date/Time: 08/21/2023 16:58 Procedure: CT ABDOMEN PELVIS W CONTRAST Ordering Provider: CEE LOGAN Reason For Exam: Abdominal pain, acute, nonlocalized CT ABDOMEN AND PELVIS WITH CONTRAST CLINICAL INDICATION: Abdominal pain, acute, nonlocalized TECHNIQUE: CT scan of the abdomen and pelvis, with IV contrast. Multiplanar reformations. Dose reduction was employed with automated exposure control. COMPARISON: 1 day prior. FINDINGS: Abdomen: Visualized lung bases grossly unremarkable. Subtle and amorphous hyperdensities in the hepatic portion gallbladder suspicious for gallstones. No significant pericholecystic fluid. Liver again demonstrates a rounded hypodensity in the anterior segment of right lobe measuring approximately 2.2 cm, statistically suggesting cyst or hemangioma, unchanged. Spleen without significant abnormality. Pancreas without significant abnormality. Kidneys without significant abnormality. Adrenal glands without significant abnormality. Pelvis: Postsurgical change again noted, including partial resection of left colon and anastomosis in the sigmoid region. Oral contrast extends to the splenic flexure of the colon without evidence of mechanical obstruction. Appendix not confidently identified and probably surgically absent. No significant, free peritoneal fluid or apparent adenopathy. Abdominal aorta partially calcified, but nonaneurysmal. Levoscoliotic and degenerative change in the lumbar spine. IMPRESSION: 1. Findings suspicious for cholelithiasis. 2. No other acute findings or significant interval change. Please see above for further details. Report Dictated on Electronically Signed By: Rodríguez Franklin MD Electronically Signed Date/Time: 08/21/2023 5:[address] [facility] CT Abdomen and Pelvis W cont rast Jayla 08-21-2023 1. Findings suspicious for cholelithiasis. 2. No other acute findings or significant interval change. Please see above for further details. Report Dictated on Electronically Signed By: Rodríguez Franklin MD Electronically Signed Date/Time: 08/21/2023 5:35 PM EDT [facility] [employer] [facility] 1945 [id number] Exam Date/Time: 08/21/2023 16:58 Procedure: CT ABDOMEN PELVIS W CONTRAST Ordering Provider: CEE LOGAN Reason For Exam: Abdominal pain, acute, nonlocalized CT ABDOMEN AND PELVIS WITH CONTRAST CLINICAL INDICATION: Abdominal pain, acute, nonlocalized TECHNIQUE: CT scan of the abdomen and pelvis, with IV contrast. Multiplanar reformations. Dose reduction was employed with automated exposure control. COMPARISON: 1 day prior. FINDINGS: Abdomen: Visualized lung bases grossly unremarkable. Subtle and amorphous hyperdensities in the hepatic portion gallbladder suspicious for gallstones. No significant pericholecystic fluid. Liver again demonstrates a rounded hypodensity in the anterior segment of right lobe measuring approximately 2.2 cm, statistically suggesting cyst or hemangioma, unchanged. Spleen without significant abnormality. Pancreas without significant abnormality. Kidneys without significant abnormality. Adrenal glands without significant abnormality. Pelvis: Postsurgical change again noted, including partial resection of left colon and anastomosis in the sigmoid region. Oral contrast extends to the splenic flexure of the colon without evidence of mechanical obstruction. Appendix not confidently identified and probably surgically absent. No significant, free peritoneal fluid or apparent adenopathy. Abdominal aorta partially calcified, but nonaneurysmal. Levoscoliotic and degenerative change in the lumbar spine. [facility] Rodríguez Franklin MD - 08/21/2023 Patient Name: SHEYLA RAMIREZ : 1945 [id number] Exam Date/Time: 08/21/2023 16:58 Procedure: CT ABDOMEN PELVIS W CONTRAST Ordering Provider: CEE LOGAN Reason For Exam: Abdominal pain, acute, nonlocalized CT ABDOMEN AND PELVIS WITH CONTRAST CLINICAL INDICATION: Abdominal pain, acute, nonlocalized TECHNIQUE: CT scan of the abdomen and pelvis, with IV contrast. Multiplanar reformations. Dose reduction was employed with automated exposure control. COMPARISON: 1 day prior. FINDINGS: Abdomen: Visualized lung bases grossly unremarkable. Subtle and amorphous hyperdensities in the hepatic portion gallbladder suspicious for gallstones. No significant pericholecystic fluid. Liver again demonstrates a rounded hypodensity in the anterior segment of right lobe measuring approximately 2.2 cm, statistically suggesting cyst or hemangioma, unchanged. Spleen without significant abnormality. Pancreas without significant abnormality. Kidneys without significant abnormality. Adrenal glands without significant abnormality. Pelvis: Postsurgical change again noted, including partial resection of left colon and anastomosis in the sigmoid region. Oral contrast extends to the splenic flexure of the colon without evidence of mechanical obstruction. Appendix not confidently identified and probably surgically absent. No significant, free peritoneal fluid or apparent adenopathy. Abdominal aorta partially calcified, but nonaneurysmal. Levoscoliotic and degenerative change in the lumbar spine. IMPRESSION: 1. Findings suspicious for cholelithiasis. 2. No other acute findings or significant interval change. Please see above for further details. Report Dictated on Electronically Signed By: Rodríguez Franklin MD Electronically Signed Date/Time: 08/21/2023 5:35 PM EDT [facility] [employer] Radiology Study observation (narrative) [facility] alth CT Abdomen and Pelvis W cont rast IVOrdered By: Rodríguez Franklin on 08-21-2023 [facility] [employer] Work Phone: Consulton 08-21-2023 Consult Attestation signed by Val Chan MD at 08/27/2023 8:13 AM Attending Supervising Physician's Attestation Statement I performed a history and physical examination of the patient and discussed the findings and management with the resident physician. I reviewed and agree with the findings and plan as documented. Date of service is 08/22/2023 Department of General Surgery Surgical Service Team 3 Resident Consult Note PATIENT NAME: Sheyla Ramirez : 1945 ATTENDING PHYSICIAN: Arsalan Harding* ADMIT DATE: 08/21/2023 TODAY'S DATE: 08/21/2023 CHIEF COMPLAINT: Chief Complaint Patient presents with Abdominal Pain Patient was seen in ER yesterday where she was told she should stay for possible bowel obstruction, she decided to leave because she felt better but is now back with Abdominal pain Reason for Consult: poss LAR anastomotic stricture HISTORY OF PRESENT ILLNESS: Sheyla Ramirez is a 77 y.o. female with PMHx significant for diabetes, GERD, hypercholesteremia, constipation, bowel obstructions, GERD, and PSHx of lap sigmoid secondary to diverticulitis, (additional history below) who presents to [facility] ED with a chief complaint of concerns for bowel obstruction. . Surgery was consulted for the evaluation and management of LLQ pain/concern for obstruction. Patient was seen in the ER yesterday after she had 24 hours of obstipation, with no bowel movement or flatus. Her CT imaging at that time showed mild bowel thickening and kinking in the left hemiabdomen. She elected to go home and monitor her symptoms. She returns to the ER now with 48 hours of obstipation. She has not passed any flatus or bowel movement. She had emesis of breakfast only but no persistent bilious emesis. She denies significant abdominal pain. On workup she is afebrile, hemodynamically stable, CBC, BMP, LFTs within normal limits. Interval CT abdomen IV and p.o. contrast shows no significant gastric or small bowel dilation, the right and transverse colon filled with contrast, there is no left colonic dilation but there is also no contrast past the anastomosis. Patient is surgical history of laparoscopic sigmoidectomy single-stage with Dr. Kruse 2010. She has had colonoscopic balloon dilation since that time for stricture. She is not on any blood thinners or steroids. No family history of IBD or Crohn's. Past Medical History: Diagnosis Date Diabetes mellitus, type 2 (HCC) Gastro-esophageal reflux disease without esophagitis Glaucoma Hypercholesterolemia Other constipation Other intestinal obstruction unspecified as to partial versus complete obstruction (HCC) Other specified symptoms and signs involving the digestive system and abdomen Personal history of colonic polyps Past Surgical History: Procedure Laterality Date COLONOSCOPY 2019 EGD (HISTORICAL) 2019 EGD (HISTORICAL) 08/04/2023 SIGMOID COLECTOMY (HISTORICAL) 2010 Laparoscopic sigmoid colectomy for diverticulitis Medications Prior to Admission: @MEDHMEDS@ Allergies: Grass pollen(k-o-r-t-swt todd), Molds & smuts, Lisinopril, Neomycin, Penicillins, Seasonal, and Sulfa antibiotics Social History Socioeconomic History Marital status: Tobacco Use Smoking status: Never Smokeless tobacco: Never Substance and Sexual Activity Alcohol use: Not Currently Comment: SOCIALLY Drug use: Never Social Determinants of Health Intimate Partner Violence: Not At Risk (08/21/2023) Humiliation, Afraid, Rape, and Kick questionnaire Fear of Current or Ex-Partner: No Emotionally Abused: No Physically Abused: No Sexually Abused: No No family history on file. REVIEW OF SYSTEMS: 11pt ROS was obtained, negative unless listed in HPI Review of Systems PHYSICAL EXAM: Vitals: 08/21/23 2125 BP: 148/66 Pulse: 73 Resp: 18 Temp: 36.6 ?C (97.9 ?F) SpO2: 98% No intake/output data recorded. CONSTITUTIONAL: awake, alert, cooperative, no apparent distress, and appears stated age EYES: Lids and lashes normal, extra ocular muscles intact HENT: Normocephalic, without obvious abnormality, atraumatic NECK: Supple, symmetrical, trachea midline, no adenopathy, skin normal LUNGS: No increased work of breathing, good air exchange, clear to auscultation bilaterally CARDIOVASCULAR: regular rate and rhythm, normal S1 and S2 ABDOMEN: soft, min distended inferiorly, minimal lower abd tenderness, no rebound MUSCULOSKELETAL: There is no redness, warmth, or swelling of the joints. Full range of motion noted. NEUROLOGIC: Awake, alert, oriented to name, place and time. . SKIN: normal skin color, texture, turgor DATA: CBC: Lab Results Component Value Date WBC 5.7 (more content not included)... Normal [facility] Consult Department of Surgery Surgical Service: Surg 4 (Advanced Laparoscopic Surgery) Resident Consult Note 08/22/2023 Chief Complaint: Chief Complaint Patient presents with Abdominal Pain Patient was seen in ER yesterday where she was told she should stay for possible bowel obstruction, she decided to leave because she felt better but is now back with Abdominal pain Reason for Consult: Left lower quadrant abdominal pain History of Present Illness: Sheyla Ramirez is a 77 y.o. female with PMHx significant for diabetes, GERD, hypercholesteremia, constipation, bowel obstructions, GERD, and PSHx of lap sigmoid secondary to diverticulitis, (additional history below) who presents to [facility] ED with a chief complaint of concerns for bowel obstruction. . Surgery was consulted for the evaluation and management of LLQ pain/concern for obstruction. Patient was seen in the ER yesterday after she had 24 hours of obstipation, with no bowel movement or flatus. Her CT imaging at that time showed mild bowel thickening and kinking in the left hemiabdomen. She elected to go home and monitor her symptoms. She returns to the ER now with 48 hours of obstipation. She has not passed any flatus or bowel movement. She had emesis of breakfast only but no persistent bilious emesis. She denies significant abdominal pain. On workup she is afebrile, hemodynamically stable, CBC, BMP, LFTs within normal limits. Interval CT abdomen IV and p.o. contrast shows no significant gastric or small bowel dilation, the right and transverse colon filled with contrast, there is no left colonic dilation but there is also no contrast past the anastomosis. Patient is surgical history of laparoscopic sigmoidectomy single-stage with Dr. Kruse 2010. She has had colonoscopic balloon dilation since that time for stricture. She is not on any blood thinners or steroids. No family history of IBD or Crohn's. Past Medical History: Diagnosis Date Diabetes mellitus, type 2 (HCC) Gastro-esophageal reflux disease without esophagitis Glaucoma Hypercholesterolemia Other constipation Other intestinal obstruction unspecified as to partial versus complete obstruction (HCC) Other specified symptoms and signs involving the digestive system and abdomen Personal history of colonic polyps Past Surgical History: Procedure Laterality Date COLONOSCOPY 2019 EGD (HISTORICAL) 2019 EGD (HISTORICAL) 08/04/2023 FLEXIBLE SIGMOIDOSCOPY N/A 08/22/2023 Performed by Val Chan MD at [facility] ENDOSCOPY SIGMOID COLECTOMY (HISTORICAL) 2010 Laparoscopic sigmoid colectomy for diverticulitis Medications Prior to Admission: No current facility-administere d medications on file prior to encounter. Current Outpatient Medications on File Prior to Encounter Medication Sig Dispense Refill atorvastatin (Lipitor) 10 MG tablet Take 10 mg by mouth daily. brimonidine (AlphaGAN) 0.2 % ophthalmic solution 1 drop 2 times daily. glimepiride (Amaryl) 4 MG tablet Take 4 mg by mouth every morning (before breakfast). losartan (Cozaar) 25 MG tablet Take by mouth. polyethylene glycol, PEG, 3350 (Miralax) 17 g packet Take 17 g by mouth daily for 3 days. 3 packet 0 Semaglutide (OZEMPIC, 1 MG/DOSE, SC) Inject 1 mg under the skin 1 (one) time per week. docusate sodium (Colace) 100 MG capsule Take 1 capsule (100 mg) by mouth in the morning and 1 capsule (100 mg) in the evening. 60 capsule 0 lansoprazole (Prevacid) [address] capsule Take by mouth every morning (before breakfast). Do not crush or chew. ondansetron (Zofran) 4 MG tablet Take 1 tablet (4 mg) by mouth in the morning and 1 tablet (4 mg) at noon and 1 tablet (4 mg) in the evening and 1 tablet (4 mg) before bedtime. Do all this for 3 days. 12 tablet 0 polyethylene glycol, PEG, 3350 (Miralax) 17 g packet Take by mouth. Allergies: Grass pollen(k-o-r-t-swt todd), Molds & smuts, Lisinopril, Neomycin, Penicillins, Seasonal, and Sulfa antibiotics Social History Socioeconomic History Marital status: Tobacco Use Smoking status: Never Smokeless tobacco: Never Substance and Sexual Activity Alcohol use: Not Currently Comment: SOCIALLY Drug use: Never Social Determinants of Health Intimate Partner Violence: Not At Risk (08/21/2023) Humiliation, Afraid, Rape, and Kick questionnaire Fear of Current or Ex-Partner: No Emotionally Abused: No Physically Abused: No Sexually Abused: No No family history on file. Review of Systems: Review of Systems Constitutional: Negative for appetite change, chills, diaphoresis, fever and unexpected weight change. HENT: Negative for nosebleeds and postnasal drip. Eyes: Negative for pain and itching. Respiratory: Negative for apnea and shortness of breath. Cardiovascular: Negative for chest pain and palpitations. Gastrointestinal: Positive for abdominal pain, constipation and nausea. Negative for abdominal distention, anal bleeding, blood in sto (more content not included)... Normal [facility] ED Provider Noteon 4 ED Provider Note Emergency Department Encounter [facility] Emergency Department Patient: Sheyla Ramirez : 1945 Date of Evaluation: 08/21/2023 ED [facility] Provider: Татьяна Price PA-C EDcare was supervised by Dr. Fortune who independently examined and evaluated the patient. Please see their attestation note for further details. Chief Complaint: Chief Complaint Patient presents with Abdominal Pain Patient was seen in ER yesterday where she was told she should stay for possible bowel obstruction, she decided to leave because she felt better but is now back with Abdominal pain History of Present Illness: Sheyla Ramirez is a 77 y.o. female who presented to the emergency department for evaluation of abdominal pain. Patient has been having symptoms since the end of July. Was seen here yesterday and felt better at discharge, after seeing general surgery. Patient states that her symptoms have worsened today.. Nursing notes were reviewed. Limitations to history: Outside historians: Review of Systems: Positives and pertinent negatives as per HPI. All other systems were reviewed and are acutely negative except as noted. Past History: Past Medical History: Diagnosis Date Diabetes mellitus, type 2 (HCC) Gastro-esophageal reflux disease without esophagitis Glaucoma Hypercholesterolemia Other constipation Other intestinal obstruction unspecified as to partial versus complete obstruction (HCC) Other specified symptoms and signs involving the digestive system and abdomen Personal history of colonic polyps Past Surgical History: Procedure Laterality Date COLONOSCOPY 2019 EGD (HISTORICAL) 2019 EGD (HISTORICAL) 08/04/2023 FLEXIBLE SIGMOIDOSCOPY N/A 08/22/2023 Performed by Val Chan MD at [facility] ENDOSCOPY SIGMOID COLECTOMY (HISTORICAL) 2010 Laparoscopic sigmoid colectomy for diverticulitis Social History Socioeconomic History Marital status: Tobacco Use Smoking status: Never Smokeless tobacco: Never Substance and Sexual Activity Alcohol use: Not Currently Comment: SOCIALLY Drug use: Never Social Determinants of Health Intimate Partner Violence: Not At Risk (08/21/2023) Humiliation, Afraid, Rape, and Kick questionnaire Fear of Current or Ex-Partner: No Emotionally Abused: No Physically Abused: No Sexually Abused: No Medications/Allergie s: Current Discharge Medication List CONTINUE these medications which have NOT CHANGED Details atorvastatin (Lipitor) 10 MG tablet Take 10 mg by mouth daily. brimonidine (AlphaGAN) 0.2 % ophthalmic solution 1 drop 2 times daily. glimepiride (Amaryl) 4 MG tablet Take 4 mg by mouth every morning (before breakfast). losartan (Cozaar) 25 MG tablet Take by mouth. !! polyethylene glycol, PEG, 3350 (Miralax) 17 g packet Take 17 g by mouth daily for 3 days. Qty: 3 packet, Refills: 0 Semaglutide (OZEMPIC, 1 MG/DOSE, SC) Inject 1 mg under the skin 1 (one) time per week. cyclobenzaprine (Flexeril) 10 MG tablet Take 10 mg by mouth. docusate sodium (Colace) 100 MG capsule Take 1 capsule (100 mg) by mouth in the morning and 1 capsule (100 mg) in the evening. Qty: 60 capsule, Refills: 0 lansoprazole (Prevacid) [address] capsule Take by mouth every morning (before breakfast). Do not crush or chew. latanoprost (Xalatan) 0.005 % ophthalmic solution INSTILL 1 DROP INTO BOTH EYES ONCE A DAY ondansetron (Zofran) 4 MG tablet Take 1 tablet (4 mg) by mouth in the morning and 1 tablet (4 mg) at noon and 1 tablet (4 mg) in the evening and 1 tablet (4 mg) before bedtime. Do all this for 3 days. Qty: 12 tablet, Refills: 0 !! polyethylene glycol, PEG, 3350 (Miralax) 17 g packet Take by mouth. !! - Potential duplicate medications found. Please discuss with provider. Allergies Allergen Reactions Grass Pollen(K-O-R-T-Swt Todd) Unknown Molds & Smuts Unknown Lisinopril Cough Neomycin Hives Penicillins Hives Seasonal Runny nose Sulfa Antibiotics Physical Exam: ED Triage Vitals [08/21/23 1310] Temp Heart Rate Resp BP 36.7 ?C (98 ?F) 69 16 136/66 SpO2 Temp Source Heart Rate Source Patient Position 100 % Temporal Monitor Sitting BP Location FiO2 (%) Left arm -- Physical Exam Vitals and nursing note reviewed. Constitutional: General: She is not in acute distress. Appearance: She is well-developed. HENT: Head: Normocephalic and atraumatic. Eyes: Conjunctiva/sclera: Conjunctivae normal. Cardiovascular: Rate and Rhythm: Normal rate and regular rhythm. Heart sounds: No murmur heard. Pulmonary: Effort: Pulmonary effort is normal. No respiratory distress. Breath sounds: Normal breath sounds. Abdominal: Palpations: Abdomen is soft. Tenderness: There is generalized abdominal tenderness. Musculoskeletal: General: No swelling. Cervical back: Neck supple. Skin: General: Skin is warm and dry. Capillary Refill: Capillary refill takes less than 2 seconds. Neurological: Mental Status: (more content not included)... Normal [facility] ED Provider Note Emergency Department Encounter [facility] EMERGENCY DEPT Patient: Sheyla Ramirez : 1945 Date of Evaluation: 08/21/2023 ED Provider: Jayjay Fortune MD I saw the patient as the Clinician in Triage and performed a brief history and physical exam, established acuity, and ordered appropriate tests to develop basic plan of care. Patient will be seen by GALINDO, resident and/or my physician partner who will evaluate the patient. I wore appropriate PPE for the entirety of this encounter. Brief HPI: In brief, Sheyla Ramirez is a 77 y.o. that presents with chief complaint of abdominal pain. Patient was just in the ED yesterday with the same concern. She states that she was concerned she had a bowel obstruction. Workup in the ED at that time included CT scan and labs which showed no significant abnormality. Patient was having enough discomfort however and has had previous bowel obstruction secondary to partial sigmoid colectomy that general surgery was consulted. They evaluated the patient in the emergency department and recommended observation admission for serial abdominal exams and further recommendations pending reevaluation in the a.m. At the time patient elected to be discharged home as she was feeling somewhat improved after symptomatic therapy in the ED. She states that today however the pain has returned and is slightly worse than yesterday. Due to this she decided to come to the emergency department for reevaluation. Her primary concern is that she vomited today approximately 40 minutes after attempting to eat breakfast patient states that she had not been having any vomiting when she came to the ED yesterday. Focused Physical exam: Awake, alert, appears tired but is oriented x 4. Skin is warm, dry, intact. Normal heart rate and heart sounds. Normal respiratory rate and effort. Abdomen is diffusely tender but is without rebound, guarding, or palpable abnormalities. Abdomen is soft and nondistended. Extremities unremarkable. Plan/MDM: Patient presents emergency department for continued abdominal pain after being evaluated yesterday in the ED with the same complaint and having an observation admission recommended for serial abdominal exams. CT yesterday did not show any evidence of bowel obstruction but did show likely constipation. Patient is at higher risk for bowel obstruction given previous GI surgery to include partial sigmoid colectomy with primary anastomosis. Patient also reports that she is on Ozempic which does increase her risk of gastroparesis. General surgery was already aware the patient return to the emergency department. They have ordered a CT scan of the abdomen pelvis with oral contrast. We obtained CBC, BMP, hepatic panel, lactic acid level, and lipase to compare to yesterday's lab results. Labs show no significant derangements or deflection from yesterday's results. CT of the abdomen and pelvis shows no significant acute interval changes or clear evidence of acute pathology. Cholelithiasis is noted. Plan is for admission for continued observation, evaluation, and management. Patients symptoms are consistent with sepsis, severe sepsis, or septic shock (If yes use .sepsiscoremeasure ): No Please see subsequent provider note for further details and disposition This will serve as my Supervisory note and shared attestation. I did perform a substantive portion of the visit including all aspects of the Medical Decision Making. All diagnostic, treatment, and disposition decisions were made by myself in conjunction with the GALINDO. For all further details of the patient's emergency department visit, please see their documentation. (Comment: Please note this report has been produced using speech recognition software and may contain errors related to that system including errors in grammar, punctuation, and spelling as well as words and phrases that may be inappropriate. If there are any questions or concerns please feel free to contact the dictating provider for clarification) Jayjay Fortune MD Acute Care [facility] Jayjay Fortune MD 08/21/[address] [facility] ED Provider Note Emergency Department Encounter Location: [facility] EMERGENCY DEPT Patient: Sheyla Ramirez : 1945 Date of evaluation: 08/21/2023 ED Provider: Татьяна Mckay APRN - DANNI Time received sign-out: 1899 Sheyla Ramirez was checked out to me by Татьяна Price PA-C. Please see his/her initial documentation for details of the patient's initial ED presentation, physical exam and completed studies. In brief, Sheyla Ramirez is a 77 y.o. adult that presented to the emergency department today with concern for small bowel obstruction. Patient was seen for same problem yesterday, and was discharged after surgical evaluation, reporting improvement in symptoms. Patient reports that after discharge, symptoms acutely worsened, causing her to come back in for evaluation. I have reviewed and interpreted all of the currently available lab results and diagnostics from this visit: Results for orders placed or performed during the hospital encounter of 08/21/23 Basic metabolic panel Result Value Ref Range SODIUM 138 135 - 145 mmol/L POTASSIUM 4.2 3.5 - 5.1 mmol/L CHLORIDE 104 98 - 107 mmol/L CARBON DIOXIDE 26 22 - 30 mmol/L UREA NITROGEN 14 7 - 17 mg/dL CREATININE 0.66 0.52 - 1.04 mg/dL GLUCOSE 115 (H) 70 - 100 mg/dL CALCIUM 9.6 8.4 - 10.4 mg/dL ANION GAP 9 3 - 13 mmol/L eGFR >90.0 >60.0 mL/min/1.73m*2 Hepatic function panel Result Value Ref Range BILIRUBIN, TOTAL 0.8 0.2 - 1.3 mg/dL BILIRUBIN, DIRECT 0.0 0.0 - 0.3 mg/dL ALKALINE PHOSPHATASE 83 38 - 126 U/L AST (SGOT) 31 15 - 46 U/L ALT 26 0 - 34 U/L ALBUMIN 4.5 3.5 - 5.0 g/dL TOTAL PROTEIN 7.7 6.3 - 8.2 g/dL Lactic acid with reflex Result Value Ref Range LACTIC ACID 0.7 0.7 - 2.0 mmol/L Lipase Result Value Ref Range LIPASE 97 23 - 300 U/L CBC auto differential Result Value Ref Range Auto WBC 5.7 3.6 - 10.7 10*3/uL RBC 4.96 3.80 - 5.20 10*6/uL Hemoglobin 14.1 11.7 - 16.0 g/dL Hematocrit 43.2 35.0 - 47.0 % MCV 87.1 77.0 - 99.0 fL MCH 28.4 26.0 - 34.0 pg MCHC 32.6 30.5 - 36.0 % RDW 13.2 11.5 - 15.0 % Platelets 190 140 - 440 10*3/uL MPV 10.3 9.0 - 12.7 fL nRBC 0.0 0.0 - 2.0 /100 WBCs Neutrophils Relative 66.2 38.0 - 82.0 % Lymphocytes Relative 24.4 15.0 - 45.0 % Monocytes Relative 7.9 5.0 - 13.0 % Eosinophils Relative 0.7 0.0 - 6.0 % Basophils Relative 0.5 0.0 - 2.0 % Immature Grans % 0.3 0.0 - 2.0 % Neutrophils Absolute 3.8 1.8 - 7.5 10*3/uL Lymphocytes Absolute 1.4 1.0 - 4.3 10*3/uL Monocytes Absolute 0.5 0.0 - 0.9 10*3/uL Eosinophils Absolute 0.0 0.0 - 0.5 10*3/uL Basophils Absolute 0.0 0.0 - 0.2 10*3/uL Immature Grans Absolute 0.0 <0.1 10*3/uL CT abdomen pelvis w contrast Final Result 1. Findings suspicious for cholelithiasis. 2. No other acute findings or significant interval change. Please see above for further details. Report Dictated on Electronically Signed By: Rodríguez Franklin MD Electronically Signed Date/Time: 08/21/2023 5:35 PM EDT Final ED Course and MDM: In brief, Sheyla Ramirez is a 77 y.o. whose care was signed out to me by the outgoing provider. In brief, patient came in to the ED complaining of abdominal pain and concerned for bowel obstruction. Laboratory studies obtained included BMP, CBC, Hepatic function panel, lipase level, and lactic acid, all of which were unremarkable. CT of the abdomen and pelvis with IV contrast obtained which showed findings suggestive of cholelithiasis without acute cholecystitis. At time of sign out, patient pending re-evaluation by general surgery. General surgery, Dr. Bergman, did report to ED to evaluate patient and recommended medical admission with surgery following patient through the weekend. Also recommended clear liquid diet for patient at this time. I reached out to [facility] and spoke with Dr. Swenson who agreed to admit patient to his service. Patient will be admitted at this time. Medications lactated Ringer's infusion (has no administration in time range) diatrizoate meglumine-sodium (Gastrografin) 66-10 % solution 30 mL (30 mL Oral Given 08/21/23 1404) ondansetron (Zofran) injection 4 mg (4 mg IntraVENous Given 08/21/23 1404) iopamidol (Isovue-370) 76 % injection 75 mL (75 mL IntraVENous Given 08/21/23 1655) Final Impression 1. Generalized abdominal pain 2. Nausea and vomiting, unspecified vomiting type DISPOSITION Admit 08/21/2023 08:35:24 PM (Please note that portions of this note may have been completed with a voice recognition program. Efforts were made to edit the dictations but occasionally words are mis-transcribed.) Татьяна Mckay, REAL ESTATE PROFESSOR - FIELD MARKETING REPRESENTATIVE [employer] Татьяна Mckay APRN - FIELD MARKETING REPRESENTATIVE 08/21/232036 Normal [facility] HEMOGLOBIN A1Con 08-21-2023 Glucose [Mass/Vol] 194 mg/dL Normal [facility] Comment on above: Order Comment: If no t done within the last 3 mos Performed By: #### L AB90 #### Professional Skateboarder: KELLI CHILDS ([phone]) [facility]) [address] [place] [address] HbA1c (Bld) [Mass fraction] 8.4 % High <5.7 [facility] Comment on above: Order Comment: If no t done within the last 3 mos Result Comment: Norm al less than 5.7% Prediabetes 5.7% to 6.4% Diabetes 6.5% or higher --HgbA1C levels may not be accurate in patients who have renal disease, received recent blood transfusions, are anemic, or who have dyshemoglobinemia. Performed By: #### L AB90 #### Professional Skateboarder: KELLI CHILDS ([phone]) [facility] ([facility]) [address] [place] [address] HEPATIC FUNCTION PANELon Albumin [Mass/Vol] 4.5 g/dL Normal 3.5-5.0 [facility] Comment on above: Performed By: #### L AB15, LAB20, LAB99 ####Professional Skateboarder: KELLI CHILDS ([phone])[facility])[address] [place] [address] ALP [Catalytic activity/Vol] 83 U/L Normal 38-126 [facility] Comment on above: Performed By: #### L AB15, LAB20, LAB99 ####Professional Skateboarder: KELLI CHILDS ([phone])[facility] ([facility])[address] [place] [address] ALT [Catalytic activity/Vol] 26 U/L Normal 0-34 [facility] Comment on above: Performed By: #### Reilly AB15, LAB20, LAB99 ####Professional Skateboarder: KLELI CHILDS ([phone])[facility] ([facility])[address] [place] [address] [place] AST [Catalytic activity/Vol] 31 U/L Normal 15-46 [facility] Comment on above: Performed By: #### Reilly AB15, LAB20, LAB99 ####Professional Skateboarder: KELLI CHILDS ([phone])[facility] ([facility])[address] [place] [address] Bilirubin [Mass/Vol] 0.8 mg/dL Normal 0.2-1.3 [facility] Comment on above: Performed By: #### Reilly AB15, LAB20, LAB99 ####Professional Skateboarder: KELLI CHILDS ([phone])[facility] ([facility])[address] [place] [address] Bilirubin.indirect [Mass/Vol] 0.0 mg/dL Normal 0.0-0.3 [facility] Comment on above: Performed By: #### Reilly ABRamirez, LAB20, LAB99 ####Professional Skateboarder: KELLI CHILDS ([phone])[facility] ([facility])[address] [place] [address] [place] Protein [Mass/Vol] 7.7 g/dL Normal 6.3-8.2 [facility] Comment on above: Performed By: #### L AB15, LAB20, LAB99 ####Professional Skateboarder: KELLI CHILDS ([phone])[facility] ([facility])[address] [place] [address] [place] Hepatic function 2000 panelo n 08-21-2023 Albumin [Mass/Vol] 4.5 g/dL 3.5 - 5.0 g/dL [facility] ALP [Catalytic activity/Vol] 83 U/L 38 - 126 U/L [facility] ALT [Catalytic activity/Vol] 26 U/L 0 - 34 U/L [facility] AST [Catalytic activity/Vol] 31 U/L 15 - 46 U/L [facility] Bilirubin [Mass/Vol] 0.8 mg/dL 0.2 - 1 .3 mg/dL [facility] Bilirubin.conjugated [Mass/Vol] 0.0 mg/dL 0.0 - 0.3 mg/dL [facility] Protein [Mass/Vol] 7.7 g/dL 6.3 - 8.2 g/dL [facility] LACTIC ACID WITH REFLEXon Lactate [Moles/Vol] 0.7 mmol/L Normal 0.7-2.0 [facility] Comment on above: Performed By: #### L [id number] ####Professional Skateboarder: KELLI CHILDS ([phone])[facility] ([facility])[address] [place] [address] LIPASEon 08-21-2023 Lipase [Catalytic activity/Vol] 97 U/L Normal 23-300 [facility] Comment on above: Performed By: #### L AB15, LAB20, LAB99 ####Professional Skateboarder: KELLI CHILDS ([phone])[facility] ([facility])[address] [place] [address] Laboratory - Chemistry and C hemistry - challengeon 08-21-2023 Glucose [Mass/Vol] 72 mg/dL 70 - 100 mg/dL [facility] Lipase [Catalytic activity/Vol] 97 U/L 23 - 300 U/L [facility] Lactate [Moles/Vol] 0.7 mmol/L 0.7 - 2. 0 mmol/L [facility] No Panel Informationon 08-20 Interpretation and review of laboratory results Normal [facility] Performed by: [facility], [address] [place] [address] CLIA ID: [id number] [facility] Interpretation and review of laboratory results Normal [facility] Interpretation and review of laboratory results Normal [facility] CBC W Auto Differential pane l (Bld)on 08-20-2023 Basophils (Bld) [#/Vol] 0.0 10*3/uL 0.0 - 0.2 10*3/uL [facility] Basophils/100 WBC (Bld) 0.3 % 0.0 - 2.0 % [facility] Eosinophils (Bld) [#/Vol] 0.1 10*3/uL 0.0 - 0.5 10*3/uL [facility] Eosinophils/100 WBC (Bld) 0.8 % 0.0 - 6.0 % [facility] Erythrocyte distribution width (RBC) [Ratio] 13.2 % 11.5 - 15.0 % [facility] Hematocrit (Bld) [Volume fraction] 39.6 % 35.0 - 47.0 % [facility] Hemoglobin (Bld) [Mass/Vol] 13.1 g/dL 11.7 - 16.0 g/dL [facility] Immature granulocytes (Bld) [#/Vol] 0.0 10*3/uL NINF - 0.1 10*3/uL [facility] Immature granulocytes/100 WBC (Bld) 0.3 % 0.0 - 2.0 % [facility] Interpretation and review of laboratory results Normal [facility] Lymphocytes (Bld) [#/Vol] 1.5 10*3/uL 1.0 - 4.3 10*3/uL [facility] Lymphocytes/100 WBC (Bld) 23.6 % 15.0 - 45.0 % [facility] MCH (RBC) [Entitic mass] 28.9 pg 26. 0 - 34.0 pg [facility] MCHC (RBC) [Mass/Vol] 33.1 % 30.5 - 36.0 % [facility] MCV (RBC) [Entitic vol] 87.2 fL 77.0 - 99.0 fL [facility] Monocytes (Bld) [#/Vol] 0.5 10*3/uL 0.0 - 0.9 10*3/uL [facility] Monocytes/100 WBC (Bld) 8.3 % 5.0 - 13.0 % [facility] Neutrophils (Bld) [#/Vol] 4.2 10*3/uL 1.8 - 7.5 10*3/uL [facility] Neutrophils/100 WBC (Bld) 66.7 % 38.0 - 82.0 % [facility] Nucleated RBC/100 WBC (Bld) [Ratio] 0.0 % [facility] Platelet mean volume (Bld) [Entitic vol] 10.6 fL 9.0 - 12.7 fL [facility] Platelets (Bld) [#/Vol] 191 10*3/uL 140 - 440 10*3/uL [facility] RBC (Bld) [#/Vol] 4.54 10*6/uL 3.80 - 5.2 0 10*6/uL [facility] WBC (Bld) [#/Vol] 6.4 10*3/uL 3.6 - 10.7 10*3/uL [facility] CBC WITH AUTO DIFFERENTIALon 08-20-2023 Basophils (Bld) [#/Vol] 0.0 10*3/uL Normal 0.0-0.2 [facility] Comment on above: Performed By: #### L [id number] ####Professional Skateboarder: KELLI CHILDS ([phone])[facility])[address] [place] [address] Basophils/100 WBC (Bld) 0.3 % Normal 0.0-2.0 [facility] Comment on above: Performed By: #### L [id number] ####Professional Skateboarder: KELLI CHILDS ([phone])[facility])[address] [place] [address] Eosinophils (Bld) [#/Vol] 0.1 10*3/uL Normal 0.0-0.5 [facility] Comment on above: Performed By: #### L [id number] ####Professional Skateboarder: KELLI CHILDS ([phone])[facility])[address] [place] [address] Eosinophils/100 WBC (Bld) 0.8 % Normal 0.0-6.0 [facility] Comment on above: Performed By: #### L [id number] ####Professional Skateboarder: KELLI CHILDS ([phone])[facility])[address] [place] [address] Erythrocyte distribution width (RBC) [Ratio] 13.2 % Normal 11.5-15.0 [facility] Comment on above: Performed By: #### L [id number] ####Professional Skateboarder: KELLI CHILDS ([phone])[address] Hematocrit (Bld) [Volume fraction] 39.6 % Normal 35.0-47.0 [facility] Comment on above: Performed By: #### L [id number] ####Professional Skateboarder: KELLI CHILDS ([phone])[facility])[address] [place] [address] Hemoglobin (Bld) [Mass/Vol] 13.1 g/dL Normal 11.7-16.0 [facility] Comment on above: Performed By: #### L [id number] ####Professional Skateboarder: KELLI CHILDS ([phone])[address] IMMATURE GRANS % 0.3 % Normal 0.0-2.0 [facility] Comment on above: Performed By: #### L [id number] ####Professional Skateboarder: KELLI CHILDS ([phone])[address] IMMATURE GRANS ABSOLUTE 0.0 10*3/uL Normal <0.1 [facility] Comment on above: Performed By: #### L [id number] ####Professional Skateboarder: KELLI CHILDS ([phone])[facility])[address] [place] [address] Lymphocytes (Bld) [#/Vol] 1.5 10*3/uL Normal 1.0-4.3 [facility] Comment on above: Performed By: #### L [id number] ####Professional Skateboarder: KELLI CHILDS ([phone])[address] Lymphocytes/100 WBC (Bld) 23.6 % Normal 15.0-45.0 [facility] Comment on above: Performed By: #### L [id number] ####Professional Skateboarder: KELLI CHILDS ([phone])[facility])[address] [place] [address] MCH (RBC) [Entitic mass] 28.9 pg Normal 26.0-34.0 [facility] Comment on above: Performed By: #### L [id number] ####Professional Skateboarder: KELLI CHILDS ([phone])[facility])[address] [place] [address] MCHC 33.1 % Normal 30.5-36.0 [facility] Comment on above: Performed By: #### L [id number] ####Professional Skateboarder: KELLI CHILDS ([phone])[facility])[address] [place] [address] MCV (RBC) [Entitic vol] 87.2 fL Normal 77.0-99.0 [facility] Comment on above: Performed By: #### L [id number] ####Professional Skateboarder: KELLI CHILDS ([phone])[facility])[address] [place] [address] Monocytes (Bld) [#/Vol] 0.5 10*3/uL Normal 0.0-0.9 [facility] Comment on above: Performed By: #### L [id number] ####Professional Skateboarder: KELLI CHILDS ([phone])[facility])[address] [place] [address] Monocytes/100 WBC (Bld) 8.3 % Normal 5.0-13.0 [facility] Comment on above: Performed By: #### L [id number] ####Professional Skateboarder: KELLI CHILDS ([phone])[facility])[address] [place] [address] NEUTROPHILS ABSOLUTE 4.2 10*3/uL Normal 1.8-7.5 [facility] Comment on above: Performed By: #### L [id number] ####Professional Skateboarder: KELLI CHILDS ([phone])[facility])[address] [place] [address] Neutrophils/100 WBC (Bld) 66.7 % Normal 38.0-82.0 [facility] Comment on above: Performed By: #### L [id number] ####Professional Skateboarder: KELLI CHILDS ([phone])[facility] ([facility])[address] [place] [address] NRBC 0.0 /100 WBCs Normal 0.0-2.0 [facility] Comment on above: Performed By: #### L [id number] ####Professional Skateboarder: KELLI CHILDS ([phone])[facility])[address] [place] [address] Platelet mean volume (Bld) [Entitic vol] 10.6 fL Normal 9.0-12.7 [facility] Comment on above: Performed By: #### L [id number] ####Professional Skateboarder: KELLI CHILDS ([phone])[facility] ([facility])[address] [place] [address] Platelets (Bld) [#/Vol] 191 10*3/uL Normal 140-440 [facility] Comment on above: Performed By: #### L [id number] ####Professional Skateboarder: KELLI CHILDS ([phone])[facility] ([facility])[address] [place] [address] RBC (Bld) [#/Vol] 4.54 10*6/uL Normal 3.80-5.20 [facility] Comment on above: Performed By: #### L [id number] ####Professional Skateboarder: KELLI CHILDS ([phone])[facility] ([facility])[address] [place] [address] WBC (Bld) [#/Vol] 6.4 10*3/uL Normal 3.6-10.7 [facility] Comment on above: Performed By: #### L [id number] ####Professional Skateboarder: KELLI CHILDS ([phone])[facility] ([facility])[address] [place] [address] COMPLETE URINALYSISon 2023 BILIRUBIN, TOTAL PRESENCE IN URINE Negative Normal Negative [facility] Comment on above: Performed By: #### L [id number] ####Professional Skateboarder: KELLI CHILDS ([phone])[facility] [place] [address] Clarity (U) Clear Normal Clear [facility] Comment on above: Performed By: #### L [id number] ####Professional Skateboarder: KELLI CHILDS ([phone])[facility] [place] [address] Color (U) Light Yellow Normal Lt. Yellow [facility] Comment on above: Performed By: #### L [id number] ####Professional Skateboarder: KELLI CHILDS ([phone])[facility] ([facility])[address] [place] [address] GLUCOSE (MG/DL) IN URINE Normal Normal Normal (<70 ) [facility] Comment on above: Performed By: #### L [id number] ####Professional Skateboarder: KELLI CHILDS ([phone])[facility] [place] [address] HEMOGLOBIN PRESENCE IN URINE Negative Normal Negative [facility] Comment on above: Performed By: #### L [id number] ####Professional Skateboarder: KELLI CHILDS ([phone])[facility] [place] [address] Ketones Ql (U) 60 mg/dL Abnormal Negative [facility] Comment on above: Performed By: #### L [id number] ####Professional Skateboarder: KELLI CHILDS ([phone])[facility] ([facility])[address] [place] [address] LEUKOCYTE ESTERASE PRESENCE IN URINE BY TEST STRIP Negative Normal Negative [facility] Comment on above: Performed By: #### L [id number] ####Professional Skateboarder: KELLI CHILDS ([phone])[facility] ([facility])[address] [place] [address] NITRITE PRESENCE IN URINE Negative Normal Negative [facility] Comment on above: Performed By: #### L [id number] ####Professional Skateboarder: KELLI CHILDS ([phone])[facility] ([facility])[address] [place] [address] pH (U) 5.0 [pH] Normal 5.0-8.0 [facility] Comment on above: Performed By: #### L [id number] ####Professional Skateboarder: KELLI CHILDS ([phone])[facility])[address] [place] [address] Protein (U) [Mass/Vol] Negative Normal Negative [facility] Comment on above: Performed By: #### L [id number] ####Professional Skateboarder: KELLI CHILDS ([phone])[facility])[address] [place] [address] Specific gravity (U) [Rel density] 1.031 High 1.005-1.030 [facility] Comment on above: Performed By: #### L [id number] ####Professional Skateboarder: KELLI CHILDS ([phone])[facility])[address] [place] [address] UROBILINOGEN (MG/DL) IN URINE Normal Normal Normal (0-1) [facility] Comment on above: Performed By: #### L [id number] ####Professional Skateboarder: KELLI CHILDS ([phone])[facility])[address] [place] [address] COMPREHENSIVE METABOLIC PANE Elder 08-20-2023 Albumin [Mass/Vol] 4.2 g/dL Normal 3.5-5.0 [facility] Comment on above: Performed By: #### L AB17, LAB99 ####Professional Skateboarder: KELLI CHILDS ([phone])[facility])[address] [place] [address] ALP [Catalytic activity/Vol] 76 U/L Normal 38-126 [facility] Comment on above: Performed By: #### L AB17, LAB99 ####Professional Skateboarder: KELLI CHILDS ([phone])[facility])[address] [place] [address] [place] ALT [Catalytic activity/Vol] 23 U/L Normal 0-34 [facility] Comment on above: Performed By: #### L AB17, LAB99 ####Professional Skateboarder: KELLI CHILDS ([phone])[facility] ([facility])[address] [place] [address] Anion gap [Moles/Vol] 11 mmol/L Normal 3-13 [facility] Comment on above: Performed By: #### L AB17, LAB99 ####Professional Skateboarder: KELLI CHILDS ([phone])[facility] ([facility])[address] [place] [address] AST [Catalytic activity/Vol] 26 U/L Normal 15-46 [facility] Comment on above: Performed By: #### L AB17, LAB99 ####Professional Skateboarder: KELLI CHILDS ([phone])[facility] ([facility])[address] [place] [address] Bilirubin [Mass/Vol] 0.6 mg/dL Normal 0.2-1.3 [facility] Comment on above: Performed By: #### L AB17, LAB99 ####Professional Skateboarder: KELLI CHILDS ([phone])[facility] ([facility])[address] [place] [address] Calcium [Mass/Vol] 9.6 mg/dL Normal 8.4-10.4 [facility] Comment on above: Performed By: #### L AB17, LAB99 ####Professional Skateboarder: KELLI CHILDS ([phone])[facility] ([facility])[address] [place] [address] [place] Chloride [Moles/Vol] 103 mmol/L Normal 98-107 [facility] Comment on above: Performed By: #### L AB17, LAB99 ####Professional Skateboarder: KELLI CHILDS ([phone])[facility] ([facility])[address] [place] [address] [place] CO2 [Moles/Vol] 24 mmol/L Normal 22-30 [facility] Comment on above: Performed By: #### L AB17, LAB99 ####Professional Skateboarder: KELLI CHILDS ([phone])[facility])[address] [place] [address] Creatinine [Mass/Vol] 0.84 mg/dL Normal 0.52-1.04 [facility] Comment on above: Performed By: #### L AB17, LAB99 ####Professional Skateboarder: KELLI CHILDS ([phone])[facility])[address] [place] [address] GLOMERULAR FILTRATION RATE ML/MIN/1.73 SQ M.PREDICTED 72.1 mL/min/1.73m*2 Normal >60.0 [facility] Comment on above: Result Comment: Calc ulation based on the Chronic Kidney Disease Epidemiology Collaboration (CKD-EPI) equation refit without adjustment for race Performed By: #### Reilly VERNON17, LAB99 ####Professional Skateboarder: KELLI CHILDS ([phone])[facility])[address] [place] [address] Glucose [Mass/Vol] 123 mg/dL High 70-100 [facility] Comment on above: Performed By: #### L 17, LAB99 ####Professional Skateboarder: KELLI CHILDS ([phone])[facility])[address] [place] [address] Potassium [Moles/Vol] 4.1 mmol/L Normal 3.5-5.1 [facility] Comment on above: Performed By: #### L AB17, LAB99 ####Professional Skateboarder: KELLI CHILDS ([phone])[facility])[address] [place] [address] Protein [Mass/Vol] 7.1 g/dL Normal 6.3-8.2 [facility] Comment on above: Performed By: #### L AB17, LAB99 ####Professional Skateboarder: KELLI CHILDS ([phone])[facility])[address] [place] [address] [place] Sodium [Moles/Vol] 137 mmol/L Normal 135-145 [facility] Comment on above: Performed By: #### L AB17, LAB99 ####Professional Skateboarder: KELLI CHILDS ([phone])[facility])[address] [place] [address] Urea nitrogen [Mass/Vol] 24 mg/dL High 7-17 [facility] Comment on above: Performed By: #### L AB17, LAB99 ####Professional Skateboarder: KELLI CHILDS ([phone])[facility] ([facility])[address] [place] [address] CT ABDOMEN PELVIS W CONTRAST on 08-20-2023 CT ABDOMEN PELVIS W CONTRAST Patient Name: SHEYLA RAMIREZ : 1945 Exam Date/Time: 08/20/2023 08:37 Procedure: CT ABDOMEN PELVIS W CONTRAST Ordering Provider: CALHOUN KAITLYN Reason For Exam: concern for SBO, Nausea CT ABDOMEN AND PELVIS WITH CONTRAST CLINICAL INDICATION: Abdominal pain. TECHNIQUE: Multi-axial 3mm sections through the abdomen and pelvis following 75 mL of Isoview contrast media. No oral contrast was administered. Coronal and sagittal reconstructions were reviewed. Dose reduction was employed with automated exposure control. COMPARISON: None. FINDINGS: Lower thorax: Normal. Stomach: Unremarkable. Liver: Normal size and contours. Normal hepatic parenchyma. 2.7 x 3.2 cm subcapsular low-density hepatic lesion within segment VII, probably a cyst. No additional hepatic lesion identified. Biliary tree: Unremarkable gallbladder by CT. No biliary dilatation. Spleen: Normal. Adrenals: Normal. Pancreas: Normal. Kidneys: Symmetric contrast enhancement without evidence of hydronephrosis. No focal renal lesion is identified. Free air or fluid: None. Mesenteric/retroperi toneal: No adenopathy or inflammation. Aorta: Normal caliber of aorta and bilateral common iliac arteries. Bowel: Post appendectomy.. Bowel anastomoses. No inflammatory change or bowel dilatation is noted. Urinary bladder: Unremarkable. Abdominal wall/soft tissues: No ventral hernia is evident. Pelvic organs/viscera: The uterus is present. Inguinal: No lymphadenopathy. Osseous structures: Multilevel spondylosis, including levoscoliosis. No suspicious osseous lesion. IMPRESSION: 1. No evidence of acute infectious or inflammatory process in the abdomen or pelvis. 2. 2.7 x 3.2 cm subcapsular low-density hepatic lesion within segment VII, probably a cyst. Report Dictated on Electronically Signed By: Artis Stevens MD Electronically Signed Date/Time: 08/20/2023 9:[address] [facility] CT Abdomen and Pelvis W cont rast Jayla 08-20-2023 1. No evidence of acute infectious or inflammatory process in the abdomen or pelvis. 2. 2.7 x 3.2 cm subcapsular low-density hepatic lesion within segment VII, probably a cyst. Report Dictated on Electronically Signed By: Artis Stevens MD Electronically Signed Date/Time: 08/20/2023 9:00 AM EDT [facility] [employer] Patient Name: SHEYLA RAMIREZ : 1945 Exam Date/Time: 08/20/2023 08:37 Procedure: CT ABDOMEN PELVIS W CONTRAST Ordering Provider: CALHOUN KAITLYN Reason For Exam: concern for SBO, Nausea CT ABDOMEN AND PELVIS WITH CONTRAST CLINICAL INDICATION: Abdominal pain. TECHNIQUE: Multi-axial 3mm sections through the abdomen and pelvis following 75 mL of Isoview contrast media. No oral contrast was administered. Coronal and sagittal reconstructions were reviewed. Dose reduction was employed with automated exposure control. COMPARISON: None. FINDINGS: Lower thorax: Normal. Stomach: Unremarkable. Liver: Normal size and contours. Normal hepatic parenchyma. 2.7 x 3.2 cm subcapsular low-density hepatic lesion within segment VII, probably a cyst. No additional hepatic lesion identified. Biliary tree: Unremarkable gallbladder by CT. No biliary dilatation. Spleen: Normal. Adrenals: Normal. Pancreas: Normal. Kidneys: Symmetric contrast enhancement without evidence of hydronephrosis. No focal renal lesion is identified. Free air or fluid: None. Mesenteric/retroperi toneal: No adenopathy or inflammation. Aorta: Normal caliber of aorta and bilateral common iliac arteries. Bowel: Post appendectomy.. Bowel anastomoses. No inflammatory change or bowel dilatation is noted. Urinary bladder: Unremarkable. Abdominal wall/soft tissues: No ventral hernia is evident. Pelvic organs/viscera: The uterus is present. Inguinal: No lymphadenopathy. Osseous structures: Multilevel spondylosis, including levoscoliosis. No suspicious osseous lesion. [facility] Artis Stevens MD - 08/20/2023 [facility] 1945 [id number] Exam Date/Time: 08/20/2023 08:37 Procedure: CT ABDOMEN PELVIS W CONTRAST Ordering Provider: CALHOUN KAITLYN Reason For Exam: concern for SBO, Nausea CT ABDOMEN AND PELVIS WITH CONTRAST CLINICAL INDICATION: Abdominal pain. TECHNIQUE: Multi-axial 3mm sections through the abdomen and pelvis following 75 mL of Isoview contrast media. No oral contrast was administered. Coronal and sagittal reconstructions were reviewed. Dose reduction was employed with automated exposure control. COMPARISON: None. FINDINGS: Lower thorax: Normal. Stomach: Unremarkable. Liver: Normal size and contours. Normal hepatic parenchyma. 2.7 x 3.2 cm subcapsular low-density hepatic lesion within segment VII, probably a cyst. No additional hepatic lesion identified. Biliary tree: Unremarkable gallbladder by CT. No biliary dilatation. Spleen: Normal. Adrenals: Normal. Pancreas: Normal. Kidneys: Symmetric contrast enhancement without evidence of hydronephrosis. No focal renal lesion is identified. Free air or fluid: None. Mesenteric/retroperi toneal: No adenopathy or inflammation. Aorta: Normal caliber of aorta and bilateral common iliac arteries. Bowel: Post appendectomy.. Bowel anastomoses. No inflammatory change or bowel dilatation is noted. Urinary bladder: Unremarkable. Abdominal wall/soft tissues: No ventral hernia is evident. Pelvic organs/viscera: The uterus is present. Inguinal: No lymphadenopathy. Osseous structures: Multilevel spondylosis, including levoscoliosis. No suspicious osseous lesion. IMPRESSION: 1. No evidence of acute infectious or inflammatory process in the abdomen or pelvis. 2. 2.7 x 3.2 cm subcapsular low-density hepatic lesion within segment VII, probably a cyst. Report Dictated on Electronically Signed By: Artis Stevens MD Electronically Signed Date/Time: 08/20/2023 9:00 AM EDT [facility] Radiology Study observation (narrative) [facility] alth CT Abdomen and Pelvis W cont rast IVOrdered By: Artis Stevens on 08-20-2023 [facility] [employer] Work Phone: Comprehensive metabolic 1998 panelon 08-20-2023 Albumin [Mass/Vol] 4.2 g/dL 3.5 - 5.0 g/dL [facility] [employer] ALP [Catalytic activity/Vol] 76 U/L 38 - 126 U/L [facility] [employer] ALT [Catalytic activity/Vol] 23 U/L 0 - 34 U/L [facility] [employer] Anion gap [Moles/Vol] 11 mmol/L 3 - 13 mmol/L [facility] AST [Catalytic activity/Vol] 26 U/L 15 - 46 U/L [facility] Bilirubin [Mass/Vol] 0.6 mg/dL 0.2 - 1 .3 mg/dL [facility] Calcium [Mass/Vol] 9.6 mg/dL 8.4 - 10. 4 mg/dL [facility] Chloride [Moles/Vol] 103 mmol/L 98 - 10 7 mmol/L [facility] CO2 [Moles/Vol] 24 mmol/L 22 - 30 mmol/L [facility] Creatinine [Mass/Vol] 0.84 mg/dL 0.52 - 1.04 mg/dL [facility] GFR/1.73 sq M.predicted MDRD (S/P/Bld) [Vol rate/Area] 72.1 mL/min/{1.73_m2} - PINF [facility] Comment on above: Calculation based on the Chronic Kidney Disease Epidemiology Collaboration (CKD-EPI) equation refit without adjustment for race Glucose [Mass/Vol] 123 mg/dL High 70 - 100 mg/dL [facility] Interpretation and review of laboratory results Abnormal [facility] Potassium [Moles/Vol] 4.1 mmol/L 3.5 - 5.1 mmol/L [facility] Protein [Mass/Vol] 7.1 g/dL 6.3 - 8.2 g/dL [facility] Sodium [Moles/Vol] 137 mmol/L 135 - 145 mmol/L [facility] Urea nitrogen [Mass/Vol] 24 mg/dL High 7 - 17 mg/d L [facility] Consulton 08-20-2023 Consult Department of Surgery Surgical Service: Surg 4 (Advanced Laparoscopic Surgery) Resident Consult Note 08/20/2023 Chief Complaint: Chief Complaint Patient presents with Abdominal Pain Pt walked in through triage c/o mid ABD pain since 08/05. Pt states HX of SBO. Pt states nausea but denies vomiting. Pt A&OX4. Reason for Consult: Left lower quadrant abdominal pain History of Present Illness: Sheyla Ramirez is a 77 y.o. female with PMHx significant for diabetes, GERD, hypercholesteremia, constipation, bowel obstructions, GERD, and PSHx of lap sigmoid secondary to diverticulitis, (additional history below) who presents to [facility] ED with a chief complaint of concerns for bowel obstruction. . Surgery was consulted for the evaluation and management of LLQ pain/concern for obstruction. Patient reports that she has not had a bowel movement since yesterday morning. Reports her normal bowel movements are 2-3 times a day. She has attempted MiraLAX at home 3 times yesterday, along with coffee/caffeine. Patient recently underwent an EGD by Dr. Kruse secondary to GERD. Reports she has had bowel obstruction in the past, which have resolved without surgical intervention. Reports some nausea yesterday; however no emesis. Denies have any fever/chills/diarrhe a/sick contacts/new foods. Complains of LLQ tenderness secondary to straining. 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 ED workup demonstrates: No leukocytosis, negative lipase, unremarkable chemistry panel, negative UA, CT Abdo pelvis no acute pathology identified, minimal air-fluid level. Afebrile, nontachycardic, hemodynamic stable, no acute distress on examination. Patient reports she had a small watery bowel movement while in the ED after receiving fluid bolus. Past Medical History: Diagnosis Date Diabetes mellitus, type 2 (HCC) Gastro-esophageal reflux disease without esophagitis Glaucoma Hypercholesterolemia Other constipation Other intestinal obstruction unspecified as to partial versus complete obstruction (HCC) Other specified symptoms and signs involving the digestive system and abdomen Personal history of colonic polyps Past Surgical History: Procedure Laterality Date COLONOSCOPY 2019 EGD (HISTORICAL) 2019 EGD (HISTORICAL) 08/04/2023 SIGMOID COLECTOMY (HISTORICAL) 2010 Laparoscopic sigmoid colectomy for diverticulitis Medications Prior to Admission: No current facility-administere d medications on file prior to encounter. Current Outpatient Medications on File Prior to Encounter Medication Sig Dispense Refill atorvastatin (Lipitor) 10 MG tablet Take 10 mg by mouth daily. brimonidine (AlphaGAN) 0.2 % ophthalmic solution 1 drop 2 times daily. glimepiride (Amaryl) 4 MG tablet Take 4 mg by mouth every morning (before breakfast). lansoprazole (Prevacid) [address] capsule Take by mouth every morning (before breakfast). Do not crush or chew. losartan (Cozaar) 25 MG tablet Take by mouth. polyethylene glycol, PEG, 3350 (Miralax) 17 g packet Take by mouth. Semaglutide (OZEMPIC, 1 MG/DOSE, SC) Inject 1 mg under the skin 1 (one) time per week. Allergies: Neomycin, Penicillins, Seasonal, and Sulfa antibiotics Social History Socioeconomic History Marital status: Tobacco Use Smoking status: Never Smokeless tobacco: Never Substance and Sexual Activity Alcohol use: Not Currently Comment: SOCIALLY Drug use: Never No family history on file. Review of Systems: Review of Systems Constitutional: Negative for appetite change, chills, diaphoresis, fever and unexpected weight change. HENT: Negative for nosebleeds and postnasal drip. Eyes: Negative for pain and itching. Respiratory: Negative for apnea and shortness of breath. Cardiovascular: Negative for chest pain and palpitations. Gastrointestinal: Positive for abdominal pain, constipation and nausea. Negative for abdominal distention, anal bleeding, blood in stool, diarrhea, rectal pain and vomiting. Genitourinary: Negative for difficulty urinating and dysuria. Skin: Negative for color change and rash. Neurological: Negative for seizures and numbness. All other systems reviewed and are negative. Physical Exam: Vitals: 08/20/23 0919 BP: 127/72 Pulse: 77 Resp: 16 Temp: SpO2: 100% No intake/output data recorded. Physical Exam Vitals and nursing note reviewed. Constitutional: General: She is not in acute distress. Appearance: She is not ill-appearing, toxic-appearing or diaphoretic. HENT: Head: Normocephalic and atraumatic. Right Ear: External ear normal. Left Ear: External ear normal. Nose: Nose normal. No rhinorrhea. Mouth/Throat: Mouth: Mucous membranes are moist. Pharynx: No posterior oropharyngeal erythema. Eyes: General: Right eye: No discharge. Left eye: No discharge. Conjunctiva/sclera (more content not included)... Normal [facility] ED Nursing Noteon 08-20-2023 ED Nursing Note Pt came to room from ED triage. Pt states she has a bowel obstruction. Pt states she has a hx of bowel obstructions in the past. Pt is alert and responsive to nurse x4. Breathing is even and unlabored at 16bpm. Pt states she is in no pain at this time, just discomfort. Bed is locked and in lowest position. Bedrails up x2. Call light within reach. Kimberley Carson RN 08/20/[address] [facility] ED Provider Noteon ED Provider Note EMERGENCY DEPARTMENT ENCOUNTER Pt Name: Sheyla Ramirez Birthdate 1945 Date of evaluation: 08/20/2023 ED Provider: Hoa Calhoun PA-C CHIEF COMPLAINT Chief Complaint Patient presents with Abdominal Pain Pt walked in through triage c/o mid ABD pain since 08/05. Pt states HX of SBO. Pt states nausea but denies vomiting. Pt A&OX4. HISTORY OF PRESENT ILLNESS (Location/Symptom, Timing/Onset, Context/Setting, Quality, Duration, Modifying Factors, Severity) Note limiting factors. I wore appropriate PPE for the entirety of this encounter. HPI Sheyla Ramirez is a 77 y.o. female with A History of Type 2 Diabetes, GERD, Glaucoma, History of Obstruction in the Abdomen, History of Colonic Polyps who presents to the emergency department for further evaluation of concern for abdominal pain, patient states that she has been having mild abdominal pain worse in the left lower quadrant since 08/05 after having EGD done by Dr. Kruse on . 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 She has not had any previous obstruction, and states that she has not passed any gas, and has not had a true formed bowel movement since she had the EGD done. She states that she has been taking MiraLAX, and has had a small amount of stool passed, that occurred 2 days ago, but since then has not passed any stool, and passed no gas. Has associated nausea. No vomiting. No fevers no bodyaches no chills at home. Denies any urinary symptoms. Denies any chest pain or shortness of breat has no lightheadedness, no urinary symptoms. Nursing Notes were reviewed. Limitations to history: None Outside historians: None REVIEW OF SYSTEMS Review of Systems 14 systems reviewed, positives and pertinent negatives as per HPI. All other systems were reviewed and are negative. PAST MEDICAL HISTORY Past Medical History: Diagnosis Date Diabetes mellitus, type 2 (HCC) Gastro-esophageal reflux disease without esophagitis Glaucoma Hypercholesterolemia Other constipation Other intestinal obstruction unspecified as to partial versus complete obstruction (HCC) Other specified symptoms and signs involving the digestive system and abdomen Personal history of colonic polyps SURGICAL HISTORY Past Surgical History: Procedure Laterality Date COLONOSCOPY 2019 EGD (HISTORICAL) 2019 EGD (HISTORICAL) 08/04/2023 SIGMOID COLECTOMY (HISTORICAL) 2010 Laparoscopic sigmoid colectomy for diverticulitis CURRENT MEDICATIONS Discharge Medication List as of 08/20/2023 12:15 PM CONTINUE these medications which have NOT CHANGED Details atorvastatin (Lipitor) 10 MG tablet Take 10 mg by mouth daily., Historical Med brimonidine (AlphaGAN) 0.2 % ophthalmic solution 1 drop 2 times daily., Historical Med glimepiride (Amaryl) 4 MG tablet Take 4 mg by mouth every morning (before breakfast)., Historical Med lansoprazole (Prevacid) [address] capsule Take by mouth every morning (before breakfast). Do not crush or chew., Historical Med losartan (Cozaar) 25 MG tablet Take by mouth., Historical Med !! polyethylene glycol, PEG, 3350 (Miralax) 17 g packet Take by mouth., Historical Med Semaglutide (OZEMPIC, 1 MG/DOSE, SC) Inject 1 mg under the skin 1 (one) time per week., Historical Med !! - Potential duplicate medications found. Please discuss with provider. ALLERGIES Neomycin, Penicillins, Seasonal, and Sulfa antibiotics FAMILY HISTORY No family history on file. SOCIAL HISTORY Social History Socioeconomic History Marital status: Tobacco Use Smoking status: Never Smokeless tobacco: Never Substance and Sexual Activity Alcohol use: Not Currently Comment: SOCIALLY Drug use: Never SCREENINGS PHYSICAL EXAM ED Triage Vitals Temp Heart Rate Resp BP 08/20/23 0627 08/20/23 0627 08/20/2362608/20/23626 36.5 ?C (97.7 ?F) 79 16 (!) 140/70 SpO2 Temp Source Heart Rate Source Patient Position 08/20/23 0627 08/20/23 0627 08/20/23 0627 08/20/23 0650 100 % Temporal Monitor Sitting BP Location FiO2 (%) 08/20/23 0650 -- Right arm Physical Exam Vitals and nursing note reviewed. Constitutional: General: She is not in acute distress. Appearance: She is well-developed. HENT: Head: Normocephalic and atraumatic. Eyes: Extraocular Movements: Extraocular movements intact. Conjunctiva/sclera: Conjunctivae normal. Pupils: Pupils are equal, round, and reactive to light. Cardiovascular: Rate and Rhythm: Normal rate and regular rhythm. Heart sounds: No murmur heard. Pulmonary: Effort: Pulmonary effort is normal. No respiratory distress. Breath sounds: Normal breath sounds. Abdominal: Palpations: Abdomen is soft. Tenderness: There is no abdominal tenderness. Comments: ABDOMEN: The abdomen is soft and noted tenderness in the LLQ/ midabdomen. There is no guarding, rigidity, rebound tenderness. No right or (more content not included)... Normal [facility] ED Provider Note Emergency Department Encounter [facility] EMERGENCY DEPT Patient: Sheyla Ramirez : 1945 Date of Evaluation: 08/20/2023 ED Supervising Physician: Keith Bell MD I personally evaluated Sheyla Ramirez and made/approved the management plan and take responsibility for the patient management. This will serve as my Supervisory note and shared attestation. I did perform a substantive portion of the visit including all aspects of the Medical Decision Making. I wore appropriate PPE for the entirety of this encounter. In brief, Sheyla Ramirez is a 77 y.o. that presents to the emergency department with abdominal discomfort, history of SBOs in the past. Sees Dr Ceballos and had recent EGD a few weeks ago. Is supposed to get a Farhat this month Focused exam: abdomen is minimally tender in LLQ, no peritoneal signs Brief ED course/MDM: labs are unremarkable, CT is unremarkable no bowel obstruction. Will DC with followup with Dr Ceballos and bowel regimen with colace and miralax Diagnostics interpreted by me: CT scan(s) CT interpreted by me shows no acute bowel obstruction I personally discussed the patient's management with other clinicians: none All diagnostic, treatment, and disposition decisions were made by myself in conjunction with the GALINDO. For all further details of the patient's emergency department visit, please see their documentation. (Comment: Please note this report has been produced using speech recognition software and may contain errors related to that system including errors in grammar, punctuation, and spelling, as well as words and phrases that may be inappropriate. If there are any questions or concerns please feel free to contact the dictating provider for clarification.) Keith Bell MD Acute Care [facility] Keith Bell MD 08/20/23 0924 Normal [facility] LIPASEon 08-20-2023 Lipase [Catalytic activity/Vol] 136 U/L Normal 23-300 [facility] Comment on above: Performed By: #### L AB17, LAB99 ####Professional Skateboarder: KELLI CHILDS ([phone])[facility] ([address] Laboratory - Chemistry and C hemistry - challengeon 08-20-2023 Lipase [Catalytic activity/Vol] 136 U/L 23 - 300 U/L [facility] Lipase [Catalytic activity/V ol]on 08-20-2023 Interpretation and review of laboratory results Normal [facility] No Panel Informationon 08-19 [facility] Urinalysis complete panel (U )Ordered By: Dana Goff on 08-20-2023 Bilirubin Ql (U) Negative Negative mg/dL [facility] Clarity (U) Clear Clear [facility] Color (U) Light Yellow Lt. Yellow [facility] Glucose Ql (U) Normal Normal (<70) mg/dL [facility] Hemoglobin Ql (U) Negative Negative mg/dL [facility] Interpretation and review of laboratory results Abnormal [facility] Ketones (U) [Mass/Vol] 60 mg/dL Abnormal Negative [facility] Leukocyte esterase Test strip Ql (U) Negative Negative Alisson/uL [facility] Nitrite Ql (U) Negative Negative [facility] th pH (U) 5.0 [pH] 5.0 - 8.0 pH [facility] Protein (U) [Mass/Vol] Negative Negat jenniffer mg/dL [facility] Specific gravity (U) [Rel density] 1.031 High 1.005 - 1.030 [facility] Urobilinogen (U) [Mass/Vol] Normal Normal (0-1) mg/dL [facility] Laboratory - Chemistry and C hemistry - challengeon 08-04-2023 Glucose [Mass/Vol] 231 mg/dL High 70 - 100 mg/dL [facility] No Panel Informationon 08-03 Interpretation and review of laboratory results Abnormal [facility] Performed by: [facility], [address] [place] [address], [facility] [id number] CLIA ID: [id number] [facility] Radiology Study observation (narrative) [facility] Upper gastrointestinal tr act and Small bowel Single view W contrast Diony 07-24-2023 Small hiatus hernia without gastroesophageal reflux. Satisfactory emptying of both the marshmallow and bagel boluses within two stripping waves. Report Dictated on Electronically Signed By: Kit Patel MD Electronically Signed Date/Time: 07/24/2023 12:46 PM EDT [employer] [facility] 1945 [id number] Exam Date/Time: 07/24/2023 10:07 Procedure: FL UPPER GI DOUBLE CONTRAST W KUB Ordering Provider: KRUSE JOHN Reason For Exam: HIATAL HERNIA AIR CONTRAST UGI SERIES (with marshmallow bagel protocol) CLINICAL INDICATIONS: Hiatal hernia. Reflux. COMPARISON: None FLUOROSCOPY DOSE: Ka,r= 163.7 mGy TECHNIQUE: Biphasic exam was performed with barium and air. Marshmallow bagel protocol was performed per ordering physician request. FINDINGS: Barium and air are administered. The esophagus is studied in the upright as well as the horizontal positions. The esophagus is normal in course and caliber. There is no hiatal hernia. No free gastroesophageal reflux is seen at this time. Barium flows freely from the esophagus into the stomach. The stomach and duodenum show normal mucosal pattern, with no discrete ulcer or mass. The visualized proximal jejunum is unremarkable. There is satisfactory emptying of both the marshmallow and bagel boluses within two stripping waves. [facility] [employer] Kit Patel MD - 07/24/2023 Patient Name: SHEY[facility]Z [facility] 1945 [id number] Exam Date/Time: 07/24/2023 10:07 Procedure: FL UPPER GI DOUBLE CONTRAST W KUB Ordering Provider: KRUSE JOHN Reason For Exam: HIATAL HERNIA AIR CONTRAST UGI SERIES (with marshmallow bagel protocol) CLINICAL INDICATIONS: Hiatal hernia. Reflux. COMPARISON: None FLUOROSCOPY DOSE: Ka,r= 163.7 mGy TECHNIQUE: Biphasic exam was performed with barium and air. Marshmallow bagel protocol was performed per ordering physician request. FINDINGS: Barium and air are administered. The esophagus is studied in the upright as well as the horizontal positions. The esophagus is normal in course and caliber. There is no hiatal hernia. No free gastroesophageal reflux is seen at this time. Barium flows freely from the esophagus into the stomach. The stomach and duodenum show normal mucosal pattern, with no discrete ulcer or mass. The visualized proximal jejunum is unremarkable. There is satisfactory emptying of both the marshmallow and bagel boluses within two stripping waves. IMPRESSION: Small hiatus hernia without gastroesophageal reflux. Satisfactory emptying of both the marshmallow and bagel boluses within two stripping waves. Report Dictated on Electronically Signed By: Kit Patel MD Electronically Signed Date/Time: 07/24/2023 12:46 PM EDT [facility] Radiology Study observation (narrative) [facility] He alth RF Upper gastrointestinal tr act and Small bowel Single view W contrast POOrdered By: Kit Patel on 07-24-2023 [place] [id number] 36 Spoke with pt today about new surgery date of 09/08 @ 7:00. She verbalized understanding and also stated she has an appt w/ her winterizer on 08/27. (Cardiac clearance still pending til then) Normal [facility] 07-02-2023 36 I faxed the cardiac clearance request today. I will keep it in a folder here of pending requests. I can update the [employer] message and route off once received. Unless there is a different protocol for keeping track [facility] 36 Please make sure to get cardiac clearance prior to surgery [facility] [id number] 36 Called pt and LVM explaining we already chose an EGD appt, August 03, arrival time of 10:00. Please let pt know that if she calls back. [facility] 36on 06-29-2023 36 Patient LVM that she would like to schedule EGD she found a ride. Please call patient [facility] Office Visiton 06-26-2023 Follow-up visit [id number] Sheyla Ramirez 1945 F Date Provider Department Center 06/26/2023 [id number] KRUSE [facility] ACH ALS None Family History Family Status - Relation Status Age at Mother Father Level of Service:76793 MA OFFICE/OUTPATIENT NEW MODERATE MDM 45 MINUTES Reason for Visit and Comments: New Patient [542] - [facility] Progress Noteon 06-26-2023 Progress Note Somehow outlook when it glitched and some cases and open slots were moved, this pt was scheduled on a (09/01). -She is now scheduled 09/08 @ 9:00. I believe you still have the surgery checklist in your box. I am going to call now and update the case w/ surgery scheduling, and also mail home and call the pt about the change of surgery date. Normal [facility] Progress Note [facility] - Surgery [facility] Physicians Surgery Patient Name: Sheyla Ramirez Date: 06/26/23 HPI: Sheyla Ramirez is a 77 y.o. female who presents with GERD, worse at night with reflux and coughing. Now sleeps in a chair to prevent these symptoms. Taking prevacid 30mg in morning and 15mg in the evening, does get occasional breakthrough symptoms. Denies dysphagia, chest pain, or shortness of breath. This has been a longstanding problem for her, she has had these issues for several years however did not seek further workup during COVID. 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 I personally reviewed the patient intake form and discussed the ROS with the patient. The ROS is negative except for what is listed in HPI. Dr Batista OV note 04/15/23 reviewed EGD w/dil Dr Batista 08/30/18 reviewed PMHx: Past Medical History: Diagnosis Date Diabetes mellitus, type 2 (HCC) Gastro-esophageal reflux disease without esophagitis Glaucoma Hypercholesterolemia Other constipation Other intestinal obstruction unspecified as to partial versus complete obstruction (HCC) Other specified symptoms and signs involving the digestive system and abdomen Personal history of colonic polyps PSHx: Past Surgical History: Procedure Laterality Date COLONOSCOPY 2019 EGD (HISTORICAL) 2019 SIGMOID COLECTOMY (HISTORICAL) 2010 Laparoscopic sigmoid colectomy for diverticulitis PFMHx: No family history on file. ALL: Allergies Allergen Reactions Neomycin Hives Penicillins Hives Seasonal Runny nose Sulfa Antibiotics MEDS: Current Outpatient Medications Medication Sig Dispense Refill atorvastatin (Lipitor) 10 MG tablet Take 10 mg by mouth daily. brimonidine (AlphaGAN) 0.2 % ophthalmic solution 1 drop 2 times daily. glimepiride (Amaryl) 4 MG tablet Take 4 mg by mouth every morning (before breakfast). lansoprazole (Prevacid) [address] capsule Take by mouth every morning (before breakfast). Do not crush or chew. losartan (Cozaar) 25 MG tablet Take by mouth. polyethylene glycol, PEG, 3350 (Miralax) 17 g packet Take by mouth. No current facility-administere d medications for this visit. SOCIAL Hx: Social History Socioeconomic History Marital status: Spouse name: Not on file Number of children: Not on file Years of education: Not on file Highest education level: Not on file Occupational History Not on file Tobacco Use Smoking status: Never Smokeless tobacco: Never Substance and Sexual Activity Alcohol use: Yes Comment: SOCIALLY Drug use: Never Sexual activity: Not on file Other Topics Concern Not on file Social History Narrative Not on file Social Determinants of Health Financial Resource Strain: Not on file Food Insecurity: Not on file Transportation Needs: Not on file Physical Activity: Not on file Stress: Not on file Social Connections: Not on file Intimate Partner Violence: Not on file Housing Stability: Not on file DIAGNOSTIC EVALUATION: EGD w/dil Dr Batista 08/30/18 Pathology 08/30/18 Physical Examination: BP 120/79 (BP Location: Left arm, Patient Position: Sitting, BP Cuff Size: Large adult) Pulse 76 Temp 36.2 ?C (97.2 ?F) Ht 5' 7 (1.702 m) Wt 156 lb (70.8 kg) BMI 24.43 kg/m? She stands Height: 5' 7 (170.2 cm) tall with a weight of Weight: 156 lb (70.8 kg) , resulting in a BMI of Body mass index is 24.43 kg/m?.. General: The patient is awake, alert, and oriented, and is in no apparent distress. Head and Neck: Normocephalic and atraumatic. Respiratory: Nonlabored breathing Abdomen: Soft, nontender, nondistended. Infraumbilical extraction site from prior laparoscopic sigmoid colectomy with associated port sites. Extremities: Ambulatory without assistance. Skin: No rashes or lesions noted. Hernia: no hernias found on exam Sheyla was seen today for new patient. Diagnoses and all orders for this visit: Hiatal hernia (Primary) - FL upper GI double contrast w KUB; Future GERD without esophagitis She will need medical risk stratification from her winterizer. We will proceed with surgical intervention. I met with the patient today to discuss risks and benefits of laparoscopic hiatal hernia repair with posterior fundoplication including, but not limited to injury to surrounding structures, the possibility of using mesh for diaphragmatic reinforcement, conversion to open, pleural effusion requiring thoracentesis, prolonged mechanical ventilation, and . She is aware of the possibility of gas bloat syndrome, the need for ongoing PPI/H2 Ryan use, postoperative reflux or dysphagia. We discussed potential for hemorrhage, infection, incomplete resolution of her symptoms, as well as cardiac and pulmonary-related complications. The patient understands and wishes to proceed. Non-operative alternatives were discussed with the patient and they wish to proceed with surgical interventio (more content not included)... [facility] Progress Note Spoke with pt today about new surgery date of 09/08 @ 7:00. She verbalized understanding and also stated she has an appt w/ her winterizer on 08/27. (Cardiac clearance still pending til then) [facility] Progress Note Called pt and notified of upper GI and EGD. Mailed paperwork [facility] Progress Note Noted. thanks [facility] Progress Note Received cardiac clearance approval. -pre-op appt this Thursday [facility] Progress Note Cardiac paperwork received and signed off on. PAT canceled per Sha (pt aware) [facility] Progress Note Cardiac stress test and ECHO results received from [facility]. Placed in review folder [facility] Progress Note Pt called and surgery date chose, case entered, post-ops made, and cardiac clearance faxed to winterizer [facility] 36on 06-03-2023 36 GABRIELLA has been faxed to nate cook [facility] 36 Nate [place] called to verify the birthday of patient. She stated she was unable to read the birthday on the GABRIELLA. She looked while I was on the phone. She did not have any records for the patient. She stated maybe Nate in [place] would and to try to send it there. [facility] 36 [employer] appt scheduled for 06/25, pt informed via phone/mail. Sent GABRIELLA to nate to get UGI images. [facility] No Panel InformationOrdered By: Sylvester Bhakta on 02-12-2023 Thyroid Stimulating Hormone (TSH) 1.03 uIU/mL 0.358-3.74 [facility] Serum or plasma thyroperoxid ase antibody assay (units/volume)Ordered By: Sylvester Bhakta on 02-12-2023 TPO Ab Qn [IU]/mL 0-34 [facility] Comment on above: Performed at: [address] Director: Chandana Turner PhD, Phone: [phone] Absolute lymphocyte countOrd ered By: Lena Thorne on 12-30-2022 Lymphocytes Auto (Unsp spec) [#/Vol] 2.54 10*3/uL 0.83-4.51 [facility] Basophil percentageOrdered B y: Lena Thorne on 12-30-2022 Basophils/100 WBC (Bld) 0.5 % 0-1 [facility] Bilirubin [Mass/Vol] 0.30 mg/dL 0.20-1.00 [facility] Comment on above: For patients on eltr ombopag therapy, use of Dimension Mongo TBIL is not recommended. Chloride [Moles/Vol] 108 mmol/L 98-107 [facility] Cholesterol [Mass/Vol] 238 mg/dL <200 [facility] Comment on above: <200 mg/dL Desirable 200-240 mg/dL Borderline >240 mg/dL High Risk Eosinophils/100 WBC (Bld) 1.8 % 0-5 [facility] Glucose [Mass/Vol] 137 mg/dL 74-106 [facility] Comment on above: Fasting Glucose resu lt greater than or equal to 126 mg/dL suggests DIABETES MELLITUS per A.D.A. criteria. Neutrophils (Bld) [#/Vol] 2.5 10*3/uL 2.0-7.7 [facility] Neutrophils/100 WBC (Bld) 44.7 % 47-70 [facility] Potassium [Moles/Vol] 3.9 mmol/L 3.5-5.1 [facility] Protein [Mass/Vol] 7.1 g/dL 6.4-8.2 [facility] Sodium [Moles/Vol] 139 mmol/L 136-145 [facility] Triglyceride [Mass/Vol] 115 mg/dL <199 [facility] Comment on above: The drugs N-Acetylcy steine and Metamizole may falsely depress this assay.Serum Triglycerides Reference Interval Normal <150 mg/dL Borderline high 150 - 199 mg/dL High 200 - 499 mg/dL Very High > or = 500 mg/dL WBC (Bld) [#/Vol] 5.6 10*3/uL 4.4-11.0 [facility] Blood erythrocytes count (nu mber/volume)Ordered By: Lena Thorne on 12-30-2022 RBC (Bld) [#/Vol] 4.68 10*6/uL 4.2-5.4 [facility] Blood hemoglobin measurement (mass/volume)Ordered By: Lena Thorne on 12-30-2022 Hemoglobin (Bld) [Mass/Vol] 13.5 g/dL 12.0-15.0 [facility] Blood lymphocytes/100 leukoc ytesOrdered By: Lena Thorne on 12-30-2022 Lymphocytes/100 WBC (Bld) 45.0 % 19-41 [facility] Blood monocytes/100 leukocyt esOrdered By: Lena Thorne on 12-30-2022 Monocytes/100 WBC (Bld) 7.8 % 0-10 [facility] Blood platelet mean volumeOr dered By: Lena Thorne on 12-30-2022 Platelet mean volume (Bld) [Entitic vol] 10.8 fL 6.2-12.0 [facility] Determination of erythrocyte mean corpuscular volume (MCV)Ordered By: natibushnelljames Thorne on 12-30-2022 MCV (RBC) [Entitic vol] 88.7 fL 81-99 [facility] Hematocrit Auto (Bld) [Volum e fraction]Ordered By: [facility] [employer] on 12-30-2022 Hematocrit (Bld) [Volume fraction] 41.5 % 37-47 [facility] Laboratory - Chemistry and C hemistry - challengeOrdered By: [facility] on 12-30-2022 ALP [Catalytic activity/Vol] 71 U/L 45-117 [facility] ALT [Catalytic activity/Vol] 30 U/L 13-56 [facility] CO2 [Moles/Vol] 23.0 mmol/L 21.0-32.0 [facility] Globulin (S) [Mass/Vol] 3.6 g/dL 2.2-4.2 [facility] Urea nitrogen/Creatinine [Mass ratio] 20.8 mg/mg 10-20 [facility] Laboratory - Hematology and Cell countsOrdered By: [facility] [employer] on 12-30-2022 Erythrocyte distribution width (RBC) [Entitic vol] 43.5 fL 35.1-43.9 [facility] Erythrocyte distribution width (RBC) [Ratio] 13.4 % 11.6-14.6 [facility] Immature granulocytes/100 WBC (Bld) 0.200 % 0.0-0.9 [facility] Comment on above: IG% - Immature Granu locytes (promyelocytes, myelocytes and metamyelocytes) > 1% indicates that a LEFT SHIFT is Present. MCH (RBC) [Entitic mass] 28.8 pg 27.0-32.0 [facility] Nucleated RBC/100 WBC (Bld) [Ratio] 0 % 0-5 [facility] MCHC Auto (RBC) [Mass/Vol]Or dered By: [facility] on 12-30-2022 MCHC (RBC) [Mass/Vol] 32.5 g/dL 32-36 [facility] No Panel InformationOrdered By: Lena Thorne on 12-30-2022 Estimated GFR (MDRD) Amer 82 mL/min >60 [facility] Comment on above: GFR Calc Estimated GFR (MDRD) Non-Af Amer 68 mL/min >60 [facility] Comment on above: Non- GFR Calc No Panel InformationOrdered By: Sylvester Bhakta on 12-30-2022 Thyroid Stimulating Hormone (TSH) 6.60 uIU/mL 0.358-3.74 [facility] Platelets bldOrdered By: Oscar Thorne on 12-30-2022 Platelets (Bld) [#/Vol] 213 10*3/uL 150-450 [facility] Serum or plasma albumin brice urement (mass/volume)Ordered By: Lena Thorne on 12-30-2022 Albumin [Mass/Vol] 3.5 g/dL 3.2-5.0 [facility] Serum or plasma albumin/glob ulin mass ratioOrdered By: Lena Thorne on 12-30-2022 Albumin/Globulin [Mass ratio] 1.0 {ratio} 0.9-2.4 [facility] Serum or plasma calcium brice urement (mass/volume)Ordered By: Lena Thorne on 12-30-2022 Calcium [Mass/Vol] 9.0 mg/dL 8.5-10.1 [facility] Serum or plasma cholesterol in HDL measurement (mass/volume)Ordered By: Lena Thorne on 12-30-2022 Cholesterol in HDL [Mass/Vol] 78 mg/dL >40 [facility] Comment on above: The drugs N-Acetylcy steine and Metamizole may falsely depress this assay. Reference Range HDL <40 mg/dL Low HDL Cholesterol HDL >or= 60 mg/dL High HDL Cholesterol Serum or plasma cholesterol in VLDL measurement (mass/volume)Ordered By: Lena Thorne on 12-30-2022 Cholesterol in VLDL [Mass/Vol] 23 mg/dL 5-40 [facility] Serum or plasma creatinine m easurement (mass/volume)Ordered By: Lena Thorne on 12-30-2022 Creatinine [Mass/Vol] 0.86 mg/dL 0.55-1.02 [facility] Comment on above: The validity of the calculated GFR & GFRAA in patients over 70 years has not been determined. Clinical correlation is essential. Serum or plasma low density lipoprotein (LDL) cholesterol measurement (mass/volume)Ordered By: Lena Thorne on 12-30-2022 Cholesterol in LDL [Mass/Vol] 137 mg/dL 0-130 [facility] Serum or plasma urea nitroge n measurement (mass/volume)Ordered By: Lena Thorne on 12-30-2022 Urea nitrogen [Mass/Vol] 18 mg/dL 7-18 [facility] Thin prep Papanicolaou smear with manual screeningOrdered By: [facility] on 12-30-2022 Thin prep Papanicolaou smear with manual screening 15 U/L 15-37 [facility] Thin prep Papanicolaou smear with manual screening 8 5-15 [facility] Whole blood hemoglobin A1c/t otal hemoglobin ratio (mass fraction)Ordered By: Sylvester Bhakta on 12-30-2022 HbA1c (Bld) [Mass fraction] 6.9 % 3.8-5.6 [facility] Comment on above: Normal < 5.7 % Predi abetic 5.7 - 6.4 % Diabetic >or= 6.5 % Please note range changes. Laboratory - Hematology and Cell countson 07-07-2022 HbA1c (Bld) [Mass fraction] 8.2 % [facility] Laboratory - Hematology and Cell countson 09-12-2021 HbA1c (Bld) [Mass fraction] 6.6 % [facility] Work Phone: Laboratory - Hematology and Cell countson 06-13-2021 HbA1c (Bld) [Mass fraction] 8.3 % [facility] Work Phone: Basophil percentageon 2021 Basophil percentage 0-5 SEEN /hpf 0-5 [facility] Work Phone: Chloride [Moles/Vol] 106 mmol/L 98-107 [facility] Work Phone: Glucose [Mass/Vol] 171 mg/dL 74-106 [facility] Work Phone: Comment on above: Fasting Glucose resu lt greater than or equal to 126 mg/dL suggests DIABETES MELLITUS per A.D.A. criteria. Potassium [Moles/Vol] 3.9 mmol/L 3.5-5.1 [facility] Work Phone: Sodium [Moles/Vol] 138 mmol/L 136-145 [facility] Work Phone: Bilirubin Test strip Ql (U)o n 05-27-2021 Bilirubin Ql (U) Negative Negative [facility] Work Phone: Ketones Test strip Ql (U)on 05-27-2021 Ketones Ql (U) 50 mg/dl Negative [facility] Work Phone: Laboratory - Chemistry and C hemistry - challengeon 05-27-2021 CO2 [Moles/Vol] 23.0 mmol/L 21.0-32.0 [facility] Work Phone: Urea nitrogen/Creatinine [Mass ratio] 29.5 mg/mg 10-20 [facility] Work Phone: Mucus LM Ql (Urine sed)on Mucus Ql (Urine sed) RARE /hpf [facility] Work Phone: Nitrite Test strip Ql (U)on 05-27-2021 Nitrite Ql (U) Negative Negative [facility] Work Phone: No Panel Informationon 05-27 Estimated GFR (MDRD) Amer 88 mL/min >60 [facility] Work Phone: Comment on above: GFR Calc Estimated GFR (MDRD) Non-Af Amer 73 mL/min >60 [facility] Work Phone: Comment on above: Non- GFR Calc Protein Test strip Ql (U)on 05-27-2021 Protein Ql (U) Negative Negative [facility] Work Phone: Serum or plasma calcium brice urement (mass/volume)on 05-27-2021 Calcium [Mass/Vol] 9.3 mg/dL 8.5-10.1 [facility] Work Phone: Serum or plasma creatinine m easurement (mass/volume)on 05-27-2021 Creatinine [Mass/Vol] 0.81 mg/dL 0.55-1.02 [facility] Work Phone: Comment on above: The validity of the calculated GFR & GFRAA in patients over 70 years has not been determined. Clinical correlation is essential. Serum or plasma urea nitroge n measurement (mass/volume)on 05-27-2021 Urea nitrogen [Mass/Vol] 24 mg/dL 7-18 [facility] Work Phone: Squamous epithelial cells de tection in urine sediment by light microscopyon 05-27-2021 Epithelial cells.squamous LM Ql (Urine sed) 0-5 SEEN /hpf 5-10 [facility] Work Phone: Thin prep Papanicolaou smear with manual screeningon 05-27-2021 Thin prep Papanicolaou smear with manual screening 9 5-15 [facility] Work Phone: Urine blood detectionon 05-17 RBC Ql (U) Negative Negative [facility] Work Phone: RBC Ql (U) 0 SEEN /hpf 0-5 [facility] Work Phone: Urine clarityon 05-27-2021 Clarity (U) Clear Clear [facility] Work Phone: Urine color determinationon 05-27-2021 Color (U) Yellow Yellow [facility] Work Phone: Urine glucose detectionon Glucose Ql (U) Normal mg/dl Normal [facility] Work Phone: Urine leukocyte esterase det ection by dipstickon 05-27-2021 Leukocyte esterase Test strip Ql (U) Negative Negative [facility] Work Phone: Urine pHon 05-27-2021 pH (U) 5.0 [pH] 5.0 - 8.0 [facility] Work Phone: Urine sediment bacteria coun t by microscopy (number/high power field)on 05-27-2021 Bacteria LM.HPF (Urine sed) [#/Area] RARE /hpf None Seen [facility] Work Phone: Urine specific gravity measu rementon 05-27-2021 Specific gravity (U) [Rel density] 1.020 1.002-1.030 [facility] Work Phone: Urobilinogen Auto test strip Ql (U)on 05-27-2021 Urobilinogen Ql (U) Normal mg/dl Normal [facility] Work Phone: Basophil percentageon 2021 Amylase [Catalytic activity/Vol] 49 U/L 25-115 [facility] Work Phone: Bilirubin [Mass/Vol] 0.50 mg/dL 0.20-1.00 [facility] Work Phone: Comment on above: For patients on eltr ombopag therapy, use of Dimension Mongo TBIL is not recommended. Chloride [Moles/Vol] 104 mmol/L 98-107 [facility] Work Phone: Glucose [Mass/Vol] 258 mg/dL 74-106 [facility] Work Phone: Comment on above: Glucose result great er than or equal to 200 mg/dLsuggests DIABETES MELLITUS per A.D.A. criteria. Potassium [Moles/Vol] 4.3 mmol/L 3.5-5.1 [facility] Work Phone: Protein [Mass/Vol] 7.5 g/dL 6.4-8.2 [facility] Work Phone: Sodium [Moles/Vol] 136 mmol/L 136-145 [facility] Work Phone: Laboratory - Chemistry and C hemistry - challengeon 05-22-2021 ALP [Catalytic activity/Vol] 105 U/L 45-117 [facility] Work Phone: ALT [Catalytic activity/Vol] 39 U/L 13-56 [facility] Work Phone: CO2 [Moles/Vol] 29.0 mmol/L 21.0-32.0 [facility] Work Phone: Globulin (S) [Mass/Vol] 3.8 g/dL 2.2-4.2 [facility] Work Phone: Lipase [Catalytic activity/Vol] 148 U/L 73-393 [facility] Work Phone: Urea nitrogen/Creatinine [Mass ratio] 11.2 mg/mg 10-20 [facility] Work Phone: Laboratory - Hematology and Cell countson 05-22-2021 HbA1c (Bld) [Mass fraction] 8.9 % 4.2-6.3 [facility] Work Phone: No Panel Informationon 05-22 Estimated GFR (MDRD) Amer 34 mL/min >60 [facility] Work Phone: Comment on above: GFR Calc Estimated GFR (MDRD) Non-Af Amer 28 mL/min >60 [facility] Work Phone: Comment on above: Non- GFR Calc Serum or plasma albumin brice urement (mass/volume)on 05-22-2021 Albumin [Mass/Vol] 3.7 g/dL 3.2-5.0 [facility] Work Phone: Serum or plasma albumin/glob ulin mass ratioon 05-22-2021 Albumin/Globulin [Mass ratio] 1.0 {ratio} 0.9-2.4 [facility] Work Phone: Serum or plasma calcium brice urement (mass/volume)on 05-22-2021 Calcium [Mass/Vol] 9.3 mg/dL 8.5-10.1 [facility] Work Phone: Serum or plasma creatinine m easurement (mass/volume)on 05-22-2021 Creatinine [Mass/Vol] 1.87 mg/dL 0.55-1.02 [facility] Work Phone: Comment on above: The validity of the calculated GFR & GFRAA in patients over 70 years has not been determined. Clinical correlation is essential. Serum or plasma urea nitroge n measurement (mass/volume)on 05-22-2021 Urea nitrogen [Mass/Vol] 21 mg/dL 7-18 [facility] Work Phone: Thin prep Papanicolaou smear with manual screeningon 05-22-2021 Thin prep Papanicolaou smear with manual screening 16 U/L 15-37 [facility] Work Phone: Thin prep Papanicolaou smear with manual screening 3 5-15 [facility] Work Phone: Laboratory - Hematology and Cell countson 03-13-2021 HbA1c (Bld) [Mass fraction] 9.7 % [facility] Work Phone: MA MAMMOGRAM SCREENING BILAT ERAL W/TOMOon 11-03-2019 MA MAMMOGRAM SCREENING BILATERAL W/SIMONA ORIGINAL FROM: [place] [id number] PROCEDURE FOR: SHEYLA ASHLEY HAAS [address] [place] [address] Home: PID#: [id number] Exam#: [id number] : 1945 Age: 73 TO: LENA THORNE MD [address] [place] [id number] #[id number] BILATERAL DIGITAL SCREENING MAMMOGRAM 3D/2D WITH CAD WITH MEDIOLATERAL OBLIQUE CRANIOCAUDAL: 11/03/2019 Comparison is made to exams dated: 04/05/2018 mammogram, 04/02/2017 mammogram - [facility], and 02/15/2016 mammogram - [facility]. The tissue of both breasts is heterogeneously dense. Current study was also evaluated with a Computer Aided Detection (CAD) system. There are benign calcifications in both breasts. There also are benign post operative findings in the right breast. No significant masses, calcifications, or other findings are seen in either breast. There has been no significant interval change. IMPRESSION: BENIGN There is no mammographic evidence of malignancy. A 1 year screening mammogram is recommended.( 021) DINORAH menendez/scotty:11/04/2019 06:26:38 Diagnostic Imaging Manager(s): RA OVALLE, RT(R)(M)(CT) [facility] letter sent: Normal BI-RADS 1&2 Mammogram BI-RADS: 2 Benign Normal [facility] ([place]) Vital Signs Date Time Vital Sign Value Performing Clinician Facility 11-21-2024 14:24-0400 Body height 170.[address] Lena Thorne MD Work Phone: [facility] 11-21-2024 14:24-0400 Body mass index (BMI) [Ratio] 24.6 kg/m2 Dr. Lena Thorne MD Work Phone: [facility] 11-21-2024 14:24-0400 Body weight 71.[address] Lena Thorne MD Work Phone: [facility] 11-21-2024 14:24-0400 Diastolic blood pressure 77 mm[Hg] Dr. Lena Thorne MD Work Phone: [facility] 11-21-2024 14:24-0400 Heart rate 70 /min Dr. Lena Thorne MD Work Phone: [facility] 11-21-2024 14:24-0400 SaO2% (BldA) [Mass fraction] 96 % Dr. Lena Thorne MD Work Phone: [facility] 11-21-2024 14:24-0400 Systolic blood pressure 127 mm[Hg] Dr. Lena Thorne MD Work Phone: [facility] 10-24-2024 12:59-0400 Body height 170.[address] Lena Thorne MD Work Phone: [facility] 10-24-2024 12:59-0400 Body mass index (BMI) [Ratio] 24.7 kg/m2 Dr. Lena Thorne MD Work Phone: [facility] 10-24-2024 12:59-0400 Body temperature 96.8 [degF] Dr. Lena Thorne MD Work Phone: [facility] 10-24-2024 12:59-0400 Body weight 71.[address] Lena Thorne MD Work Phone: [facility] 10-24-2024 12:59-0400 Diastolic blood pressure 60 mm[Hg] Dr. Lena Thorne MD Work Phone: [facility] 10-24-2024 12:59-0400 Heart rate 85 /min Dr. Lena Thorne MD Work Phone: [facility] 10-24-2024 12:59-0400 Respiratory rate 18 /min Dr. Lena Thorne MD Work Phone: [facility] 10-24-2024 12:59-0400 SaO2% (BldA) [Mass fraction] 97 % Dr. Lena Thorne MD Work Phone: [facility] 10-24-2024 12:59-0400 Systolic blood pressure 128 mm[Hg] Dr. Lena Thorne MD Work Phone: [facility] 08-04-2024 14:20-0400 Body height 170.[address] Lena Thorne MD Work Phone: [facility] 08-04-2024 14:20-0400 Body mass index (BMI) [Ratio] 24.3 kg/m2 Dr. Lena Thorne MD Work Phone: [facility] 08-04-2024 14:20-0400 Body weight 70.[address] Lena Thorne MD Work Phone: [facility] 08-04-2024 14:20-0400 Diastolic blood pressure 82 mm[Hg] Dr. Lena Thorne MD Work Phone: [facility] 08-04-2024 14:20-0400 Heart rate 71 /min Dr. Lena Thorne MD Work Phone: [facility] 08-04-2024 14:20-0400 SaO2% (BldA) [Mass fraction] 98 % Dr. Lena Thorne MD Work Phone: [facility] 08-04-2024 14:20-0400 Systolic blood pressure 135 mm[Hg] Dr. Lena Thorne MD Work Phone: [facility] 07-19-2024 07:39-0400 Body height 170.[address] Lena Thorne MD Work Phone: [facility] 07-19-2024 07:39-0400 Body mass index (BMI) [Ratio] 24.1 kg/m2 Dr. Lena Thorne MD Work Phone: [facility] 07-19-2024 07:39-0400 Body weight 69.[address] Lena Thorne MD Work Phone: [facility] 07-19-2024 07:39-0400 Diastolic blood pressure 69 mm[Hg] Dr. Lena Thorne MD Work Phone: [facility] 07-19-2024 07:39-0400 Heart rate 80 /min Dr. Lena Thorne MD Work Phone: [facility] 07-19-2024 07:39-0400 Respiratory rate 18 /min Dr. Lena Thorne MD Work Phone: [facility] 07-19-2024 07:39-0400 Systolic blood pressure 107 mm[Hg] Dr. Lena Thorne MD Work Phone: [facility] 06-15-2024 14:09-0400 Body mass index (BMI) [Ratio] 24.1 kg/m2 Dr. Lena Thorne MD Work Phone: [facility] 06-15-2024 14:09-0400 Body temperature 96.3 [degF] Dr. Lena Thorne MD Work Phone: [facility] 06-15-2024 14:09-0400 Body weight 70.[address] Lena Thorne MD Work Phone: [facility] 06-15-2024 14:09-0400 Diastolic blood pressure 54 mm[Hg] Dr. Lena Thorne MD Work Phone: [facility] 06-15-2024 14:09-0400 Heart rate 77 /min Dr. Lena Thorne MD Work Phone: [facility] 06-15-2024 14:09-0400 Respiratory rate 12 /min Dr. Lena Thorne MD Work Phone: [facility] 06-15-2024 14:09-0400 SaO2% (BldA) [Mass fraction] 95 % Dr. Lena Thorne MD Work Phone: [facility] 06-15-2024 14:09-0400 Systolic blood pressure 98 mm[Hg] Dr. Lena Thorne MD Work Phone: [facility] 04-05-2024 14:22-0500 Body mass index (BMI) [Ratio] 23.6 kg/m2 Dr. Lena Thorne MD Work Phone: [facility] 04-05-2024 14:22-0500 Body weight 68.[address] Lena Thorne MD Work Phone: [facility] 04-05-2024 14:22-0500 Diastolic blood pressure 64 mm[Hg] Dr. Lena Thorne MD Work Phone: [facility] 04-05-2024 14:22-0500 Heart rate 74 /min Dr. Lena Thorne MD Work Phone: [facility] 04-05-2024 14:22-0500 SaO2% (BldA) [Mass fraction] 98 % Dr. Lena Thorne MD Work Phone: [facility] 04-05-2024 14:22-0500 Systolic blood pressure 102 mm[Hg] Dr. Lena Thorne MD Work Phone: [facility] 10-30-2023 11:32-0400 Body height 170.2 cm Julian Kruse MD Work Phone: [facility] 10-30-2023 11:32-0400 Body mass index (BMI) [Ratio] 22.71 kg/m2 Julian Kruse MD Work Phone: [facility] 10-30-2023 11:32-0400 Body temperature 97 [degF] Julian Kruse MD Work Phone: [facility] 10-30-2023 11:32-0400 Body weight 65.77 kg Julian Kruse MD Work Phone: [facility] 10-30-2023 11:32-0400 Diastolic blood pressure 60 mm[Hg] Julian Kruse MD Work Phone: [facility] 10-30-2023 11:32-0400 Heart rate 77 /min Julian Kruse MD Work Phone: [facility] 10-30-2023 11:32-0400 Systolic blood pressure 122 mm[Hg] Julian Kruse MD Work Phone: [facility] 09-25-2023 10:59-0400 Body height 170.2 cm Julian Kruse MD Work Phone: [facility] 09-25-2023 10:59-0400 Body mass index (BMI) [Ratio] 23.18 kg/m2 Julian Kruse MD Work Phone: [facility] 09-25-2023 10:59-0400 Body temperature 97.2 [degF] Julian Kruse MD Work Phone: [facility] 09-25-2023 10:59-0400 Body weight 67.13 kg Julian Kruse MD Work Phone: [facility] 09-25-2023 10:59-0400 Diastolic blood pressure 66 mm[Hg] Julian Kruse MD Work Phone: [facility] 09-25-2023 10:59-0400 Heart rate 80 /min Julian Kruse MD Work Phone: [facility] 09-25-2023 10:59-0400 Systolic blood pressure 132 mm[Hg] Julian Kruse MD Work Phone: [facility] 09-10-2023 13:03-0400 Body temperature 97.9 [degF] Julian Kruse MD Work Phone: [facility] 09-10-2023 13:03-0400 Diastolic blood pressure 66 mm[Hg] Julian Kruse MD Work Phone: [facility] 09-10-2023 13:03-0400 Heart rate 68 /min Julian Kruse MD Work Phone: [facility] 09-10-2023 13:03-0400 Respiratory rate 20 /min Julian Kruse MD Work Phone: [facility] 09-10-2023 13:03-0400 SaO2% (BldA) [Mass fraction] 99 % Julian Kruse MD Work Phone: [facility] 09-10-2023 13:03-0400 Systolic blood pressure 121 mm[Hg] Julian Kruse MD Work Phone: [facility] 09-09-2023 06:39-0400 Body mass index (BMI) [Ratio] 24.14 kg/m2 Julian Kruse MD Work Phone: [facility] 09-09-2023 06:39-0400 Body weight 69.9 kg Julian Kruse MD Work Phone: [facility] 08-28-2023 10:01-0400 Body mass index (BMI) [Ratio] 24.12 kg/m2 Julian Kruse MD Work Phone: [facility] 08-28-2023 10:01-0400 Body temperature 97.5 [degF] Julian Kruse MD Work Phone: [facility] 08-28-2023 10:01-0400 Body weight 69.85 kg Julian Kruse MD Work Phone: [facility] 08-28-2023 10:01-0400 Diastolic blood pressure 60 mm[Hg] Julian Kruse MD Work Phone: [facility] 08-28-2023 10:01-0400 Heart rate 98 /min Julian Kruse MD Work Phone: [facility] 08-28-2023 10:01-0400 Systolic blood pressure 112 mm[Hg] Julian Kruse MD Work Phone: [facility] 08-25-2023 09:00-0400 Body temperature 97.39 [degF] Jayjay Fortune MD Work Phone: [facility] 08-25-2023 09:00-0400 Diastolic blood pressure 53 mm[Hg] Jayjay Fortune MD Work Phone: [facility] 08-25-2023 09:00-0400 Heart rate 74 /min Jayjay Fortune MD Work Phone: [facility] 08-25-2023 09:00-0400 Respiratory rate 18 /min Jayjay Fortune MD Work Phone: [facility] 08-25-2023 09:00-0400 SaO2% (BldA) [Mass fraction] 98 % Jayjay Fortune MD Work Phone: [facility] 08-25-2023 09:00-0400 Systolic blood pressure 95 mm[Hg] Jayjay Fortune MD Work Phone: [facility] 08-21-2023 13:10-0400 Body height 170.2 cm Jayjay Fortune MD Work Phone: [facility] 08-21-2023 13:10-0400 Body mass index (BMI) [Ratio] 23.49 kg/m2 Jayjay Fortune MD Work Phone: [facility] 08-21-2023 13:10-0400 Body weight 68.04 kg Jayjay Fortune MD Work Phone: [facility] 08-20-2023 12:58-0400 Diastolic blood pressure 85 mm[Hg] Keith Bell MD Work Phone: [facility] 08-20-2023 12:58-0400 Heart rate 77 /min Keith Bell MD Work Phone: [facility] 08-20-2023 12:58-0400 Respiratory rate 16 /min Keith Bell MD Work Phone: [facility] 08-20-2023 12:58-0400 SaO2% (BldA) [Mass fraction] 100 % Keith Bell MD Work Phone: [facility] 08-20-2023 12:58-0400 Systolic blood pressure 129 mm[Hg] Keith Bell MD Work Phone: [facility] 08-20-2023 06:30-0400 Body height 170.2 cm Keith Bell MD Work Phone: [facility] 08-20-2023 06:30-0400 Body mass index (BMI) [Ratio] 23.49 kg/m2 Keith Bell MD Work Phone: [facility] 08-20-2023 06:30-0400 Body weight 68.04 kg Keith Bell MD Work Phone: [facility] 08-20-2023 06:27-0400 Body temperature 97.7 [degF] Keith Bell MD Work Phone: [facility] 08-04-2023 11:14-0400 Diastolic blood pressure 78 mm[Hg] Julian Kruse MD Work Phone: [facility] 08-04-2023 11:14-0400 Heart rate 74 /min Julian Kruse MD Work Phone: [facility] 08-04-2023 11:14-0400 Respiratory rate 16 /min Julian Kruse MD Work Phone: [facility] 08-04-2023 11:14-0400 SaO2% (BldA) [Mass fraction] 100 % Julian Kruse MD Work Phone: [facility] 08-04-2023 11:14-0400 Systolic blood pressure 120 mm[Hg] Julian Kruse MD Work Phone: [facility] 08-04-2023 09:56-0400 Body height 170.2 cm Julian Kruse MD Work Phone: [facility] 08-04-2023 09:56-0400 Body mass index (BMI) [Ratio] 23.96 kg/m2 Julian Kruse MD Work Phone: [facility] 08-04-2023 09:56-0400 Body weight 69.4 kg Julian Kruse MD Work Phone: [facility] 08-04-2023 09:42-0400 Body temperature 97.11 [degF] Julian Kruse MD Work Phone: [facility] 06-26-2023 10:54-0400 Body height 170.2 cm Julian Kruse MD Work Phone: [facility] 06-26-2023 10:54-0400 Body mass index (BMI) [Ratio] 24.43 kg/m2 Julian Kruse MD Work Phone: [facility] 06-26-2023 10:54-0400 Body temperature 97.2 [degF] Julian Kruse MD Work Phone: [facility] 06-26-2023 10:54-0400 Body weight 70.76 kg Julian Kruse MD Work Phone: [facility] 06-26-2023 10:54-0400 Diastolic blood pressure 79 mm[Hg] Julian Kruse MD Work Phone: [facility] 06-26-2023 10:54-0400 Heart rate 76 /min Julian Kruse MD Work Phone: [facility] 06-26-2023 10:54-0400 Systolic blood pressure 120 mm[Hg] Julian Kruse MD Work Phone: [facility] 05-27-2023 16:07-0400 Body height 170.[address] Lena Thorne Work Phone: [facility] 05-27-2023 16:07-0400 Body mass index (BMI) [Ratio] 23.9 kg/m2 Dr. Lena Thorne Work Phone: [facility] 05-27-2023 16:07-0400 Body temperature 97.6 [degF] Dr. Lena Thorne Work Phone: [facility] 05-27-2023 16:07-0400 Body weight 69.[address] Lena Thorne Work Phone: [facility] 05-27-2023 16:07-0400 Diastolic blood pressure 70 mm[Hg] Dr. Lena Thorne Work Phone: [facility] 05-27-2023 16:07-0400 Heart rate 65 /min Dr. Lena Thorne Work Phone: [facility] 05-27-2023 16:07-0400 Respiratory rate 16 /min Dr. Lena Thorne Work Phone: [facility] 05-27-2023 16:07-0400 SaO2% (BldA) [Mass fraction] 99 % Dr. Lena Thorne Work Phone: [facility] 05-27-2023 16:07-0400 Systolic blood pressure 116 mm[Hg] Dr. Lena Thorne Work Phone: [facility] 01-20-2023 13:15-0500 Body height 170.[address] Lena Thorne Work Phone: [facility] 01-20-2023 13:15-0500 Body mass index (BMI) [Ratio] 24.7 kg/m2 Dr. Lena Thorne Work Phone: [facility] 01-20-2023 13:15-0500 Body temperature 98.2 [degF] Dr. Lena Thorne Work Phone: [facility] 01-20-2023 13:15-0500 Body weight 71.[address] Lena Thorne Work Phone: [facility] 01-20-2023 13:15-0500 Diastolic blood pressure 72 mm[Hg] Dr. Lena Thorne Work Phone: [facility] 01-20-2023 13:15-0500 Heart rate 80 /min Dr. Lena Thorne Work Phone: [facility] 01-20-2023 13:15-0500 Respiratory rate 16 /min Dr. Lena Thorne Work Phone: [facility] 01-20-2023 13:15-0500 SaO2% (BldA) [Mass fraction] 98 % Dr. Lena Thorne Work Phone: [facility] 01-20-2023 13:15-0500 Systolic blood pressure 120 mm[Hg] Dr. Lena Thorne Work Phone: [facility] 01-01-2023 13:51-0500 Body mass index (BMI) [Ratio] 24.3 kg/m2 Dr. Lena Thorne Work Phone: [facility] 01-01-2023 13:51-0500 Body temperature 97.6 [degF] Dr. Lena Thorne Work Phone: [facility] 01-01-2023 13:51-0500 Body weight 70.[address] Lena Thorne Work Phone: [facility] 01-01-2023 13:51-0500 Diastolic blood pressure 72 mm[Hg] Dr. Lena Thorne Work Phone: [facility] 01-01-2023 13:51-0500 Heart rate 82 /min Dr. Lena Thorne Work Phone: [facility] 01-01-2023 13:51-0500 Respiratory rate 16 /min Dr. Lena Thorne Work Phone: [facility] 01-01-2023 13:51-0500 SaO2% (BldA) [Mass fraction] 99 % Dr. Lena Thorne Work Phone: [facility] 01-01-2023 13:51-0500 Systolic blood pressure 112 mm[Hg] Dr. Lena Thorne Work Phone: [facility] 11-11-2022 13:38-0400 Body temperature 97 [degF] Dr. Lena Thorne Work Phone: [facility] 07-15-2022 14:20-0400 Body height 171.[address] Lena Thorne Work Phone: [facility] 07-15-2022 14:20-0400 Body mass index (BMI) [Ratio] 24.2 kg/m2 Dr. Lena Thorne Work Phone: [facility] 07-15-2022 14:20-0400 Body temperature 98 [degF] Dr. Lena Thorne Work Phone: [facility] 07-15-2022 14:20-0400 Body weight 71.[address] Lena Thorne Work Phone: [facility] 07-15-2022 14:20-0400 Diastolic blood pressure 66 mm[Hg] Dr. Lena Thorne Work Phone: [facility] 07-15-2022 14:20-0400 Heart rate 89 /min Dr. Lena Thorne Work Phone: [facility] 07-15-2022 14:20-0400 Respiratory rate 18 /min Dr. Lena Thorne Work Phone: [facility] 07-15-2022 14:20-0400 SaO2% (BldA) [Mass fraction] 98 % Dr. Lena Thorne Work Phone: [facility] 07-15-2022 14:20-0400 Systolic blood pressure 109 mm[Hg] Dr. Lena Thorne Work Phone: [facility] 07-07-2022 13:13-0400 Body mass index (BMI) [Ratio] 24.2 kg/m2 Dr. Lena Thorne Work Phone: [facility] 07-07-2022 13:13-0400 Body temperature 98 [degF] Dr. Lena Thorne Work Phone: [facility] 07-07-2022 13:13-0400 Body weight 71.[address] Lena Thorne Work Phone: [facility] 07-07-2022 13:13-0400 Diastolic blood pressure 76 mm[Hg] Dr. Lena Thorne Work Phone: [facility] 07-07-2022 13:13-0400 Heart rate 80 /min Dr. Lena Thorne Work Phone: [facility] 07-07-2022 13:13-0400 Respiratory rate 17 /min Dr. Lena Thorne Work Phone: [facility] 07-07-2022 13:13-0400 SaO2% (BldA) [Mass fraction] 95 % Dr. Lena Thorne Work Phone: [facility] 07-07-2022 13:13-0400 Systolic blood pressure 118 mm[Hg] Dr. Lena Thorne Work Phone: [facility] 09-10-2021 15:27-0400 Body height 171.[address] Lena Thorne Work Phone: [facility] Work Phone: 09-10-2021 15:27-0400 Body mass index (BMI) [Ratio] 23.7 kg/m2 Dr. Lena Thorne Work Phone: [facility] Work Phone: 09-10-2021 15:27-0400 Body temperature 95.2 [degF] Dr. Lena Thorne Work Phone: [facility] Work Phone: 09-10-2021 15:27-0400 Body weight 69.[address] Lena Thorne Work Phone: [facility] Work Phone: 09-10-2021 15:27-0400 Diastolic blood pressure 80 mm[Hg] Dr. Lena Thorne Work Phone: [facility] Work Phone: 09-10-2021 15:27-0400 Heart rate 84 /min Dr. Lena Thorne Work Phone: [facility] Work Phone: 09-10-2021 15:27-0400 Respiratory rate 16 /min Dr. Lena Thorne Work Phone: [facility] Work Phone: 09-10-2021 15:27-0400 SaO2% (BldA) [Mass fraction] 99 % Dr. Lena Thorne Work Phone: [facility] Work Phone: 09-10-2021 15:27-0400 Systolic blood pressure 128 mm[Hg] Dr. Lena Thorne Work Phone: [facility] Work Phone: 08-22-2021 15:58-0400 Body mass index (BMI) [Ratio] 23.7 kg/m2 Dr. Lena Thorne Work Phone: [facility] Work Phone: 08-22-2021 15:58-0400 Body temperature 96.4 [degF] Dr. Lena Thorne Work Phone: [facility] Work Phone: 08-22-2021 15:58-0400 Body weight 69.[address] Lena Thorne Work Phone: [facility] Work Phone: 08-22-2021 15:58-0400 Diastolic blood pressure 66 mm[Hg] Dr. Lena Thorne Work Phone: [facility] Work Phone: 08-22-2021 15:58-0400 Heart rate 79 /min Dr. Lena Thorne Work Phone: [facility] Work Phone: 08-22-2021 15:58-0400 Respiratory rate 18 /min Dr. Lena Thorne Work Phone: [facility] Work Phone: 08-22-2021 15:58-0400 SaO2% (BldA) [Mass fraction] 92 % Dr. Lena Thorne Work Phone: [facility] Work Phone: 08-22-2021 15:58-0400 Systolic blood pressure 118 mm[Hg] Dr. Lena Thorne Work Phone: [facility] Work Phone: 06-13-2021 08:56-0400 Body mass index (BMI) [Ratio] 24.4 kg/m2 Dr. Lena Thorne Work Phone: [facility] Work Phone: 06-13-2021 08:56-0400 Body temperature 94.5 [degF] Dr. Lena Thorne Work Phone: [facility] Work Phone: 06-13-2021 08:56-0400 Body weight 71.[address] Lena Thorne Work Phone: [facility] Work Phone: 06-13-2021 08:56-0400 Diastolic blood pressure 70 mm[Hg] Dr. Lena Thorne Work Phone: [facility] Work Phone: 06-13-2021 08:56-0400 Heart rate 81 /min Dr. Lena Thorne Work Phone: [facility] Work Phone: 06-13-2021 08:56-0400 Respiratory rate 20 /min Dr. Lena Thorne Work Phone: [facility] Work Phone: 06-13-2021 08:56-0400 SaO2% (BldA) [Mass fraction] 100 % Dr. Lena Thorne Work Phone: [facility] Work Phone: 06-13-2021 08:56-0400 Systolic blood pressure 112 mm[Hg] Dr. Lena Thorne Work Phone: [facility] Work Phone: 06-13-2021 08:56-0400 Body height 171.[address] Lena Thorne Work Phone: [facility] Work Phone: 06-13-2021 08:56-0400 Body mass index (BMI) [Ratio] 24.4 kg/m2 Dr. Lena Thorne Work Phone: [facility] Work Phone: 06-13-2021 08:56-0400 Body temperature 94.5 [degF] Dr. Lena Thorne Work Phone: [facility] Work Phone: 06-13-2021 08:56-0400 Body weight 71.[address] Lena Thorne Work Phone: [facility] Work Phone: 06-13-2021 08:56-0400 Diastolic blood pressure 70 mm[Hg] Dr. Lena Thorne Work Phone: [facility] Work Phone: 06-13-2021 08:56-0400 Heart rate 81 /min Dr. Lena Thorne Work Phone: [facility] Work Phone: 06-13-2021 08:56-0400 Respiratory rate 20 /min Dr. Lena Thorne Work Phone: [facility] Work Phone: 06-13-2021 08:56-0400 SaO2% (BldA) [Mass fraction] 100 % Dr. Lena Thorne Work Phone: [facility] Work Phone: 06-13-2021 08:56-0400 Systolic blood pressure 112 mm[Hg] Dr. Lena Thorne Work Phone: [facility] Work Phone: 05-22-2021 14:01-0400 Body mass index (BMI) [Ratio] 24.4 kg/m2 Dr. Lena Thorne Work Phone: [facility] Work Phone: 05-22-2021 14:01-0400 Body temperature 97 [degF] Dr. Lena Thorne Work Phone: [facility] Work Phone: 05-22-2021 14:01-0400 Body weight 72.[address] Lena Thorne Work Phone: [facility] Work Phone: 05-22-2021 14:01-0400 Diastolic blood pressure 76 mm[Hg] Dr. Lena Thorne Work Phone: [facility] Work Phone: 05-22-2021 14:01-0400 Heart rate 92 /min Dr. Lena Thorne Work Phone: [facility] Work Phone: 05-22-2021 14:01-0400 Respiratory rate 18 /min Dr. Lena Thorne Work Phone: [facility] Work Phone: 05-22-2021 14:01-0400 SaO2% (BldA) [Mass fraction] 99 % Dr. Lena Thorne Work Phone: [facility] Work Phone: 05-22-2021 14:01-0400 Systolic blood pressure 106 mm[Hg] Dr. Lena Thorne Work Phone: [facility] Work Phone: 05-22-2021 14:01-0400 Body height 172.[address] Lena Thorne Work Phone: [facility] Work Phone: 05-22-2021 14:01-0400 Body mass index (BMI) [Ratio] 24.4 kg/m2 Dr. Lena Thorne Work Phone: [facility] Work Phone: 05-22-2021 14:01-0400 Body temperature 97 [degF] Dr. Lena Thorne Work Phone: [facility] Work Phone: 05-22-2021 14:01-0400 Body weight 72.[address] Lena Thorne Work Phone: [facility] Work Phone: 05-22-2021 14:01-0400 Diastolic blood pressure 76 mm[Hg] Dr. Lena Thorne Work Phone: [facility] Work Phone: 05-22-2021 14:01-0400 Heart rate 92 /min Dr. Lena Thorne Work Phone: [facility] Work Phone: 05-22-2021 14:01-0400 Respiratory rate 18 /min Dr. Lena Thorne Work Phone: [facility] Work Phone: 05-22-2021 14:01-0400 SaO2% (BldA) [Mass fraction] 99 % Dr. Lena Thorne Work Phone: [facility] Work Phone: 05-22-2021 14:01-0400 Systolic blood pressure 106 mm[Hg] Dr. Lena Thorne Work Phone: [facility] Work Phone: 03-13-2021 12:41-0500 Body mass index (BMI) [Ratio] 24.9 kg/m2 Dr. Lena Thorne Work Phone: [facility] Work Phone: 03-13-2021 12:41-0500 Body temperature 98.2 [degF] Dr. Lena Thorne Work Phone: [facility] Work Phone: 03-13-2021 12:41-0500 Body weight 74.[address] Lena Thorne Work Phone: [facility] Work Phone: 03-13-2021 12:41-0500 Diastolic blood pressure 76 mm[Hg] Dr. Lena Thorne Work Phone: [facility] Work Phone: 03-13-2021 12:41-0500 Heart rate 87 /min Dr. Lena Thorne Work Phone: [facility] Work Phone: 03-13-2021 12:41-0500 Respiratory rate 14 /min Dr. Lena Thorne Work Phone: [facility] Work Phone: 03-13-2021 12:41-0500 SaO2% (BldA) [Mass fraction] 97 % Dr. Lena Thorne Work Phone: [facility] Work Phone: 03-13-2021 12:41-0500 Systolic blood pressure 110 mm[Hg] Dr. Lena Thorne Work Phone: [facility] Work Phone: Encounters Encounter Date Encounter Type Care Provider Facility Start: 12-26-2024 ambulatory Lena Novak ty:[facility] Start: 11-29-2024 End: 11-29-2024 Patient encounter procedure Angelica BHAKTA -[facility] Work Phone: Start: 11-29-2024 End: 11-29-[address] Lena Thorne MD Work Phone: -[facility] Start: 11-21-2024 End: 11-21-2024 Patient encounter procedure Sylvester Bhakta MD -Laboratory Work Phone: Start: 11-21-2024 End: 11-21-[address] Lena Thorne MD Work Phone: -[facility] Start: 11-21-2024 End: 11-21-[address] Sylvester Bhakta MD -[facility] Work Phone: Start: 11-21-2024 End: 11-21-2024 ambulatory Lena Thorne Facility:[facility] Start: 11-03-2024 End: 11-03-[address] Lena Thorne MD Work Phone: -[facility]patient [facility] Start: 11-03-2024 End: 11-03-[address] Lena Thorne MD -[facility] Work Phone: Start: 11-03-2024 End: 11-03-2024 ambulatory Lena Thorne Facility:[facility] Start: 10-24-2024 End: 10-24-[address] Lena Thorne MD -[facility] Work Phone: Start: 10-24-2024 End: 10-24-[address] Lena Thorne MD Work Phone: -[facility] Start: 10-24-2024 End: 10-24-2024 ambulatory Lena Thorne Facility:[facility] Start: 10-21-2024 End: 10-21-[address] Lena Thorne MD Work Phone: -[facility] Start: 10-21-2024 End: 10-21-[address] Lena Thorne MD -[facility] Start: 10-21-2024 End: 10-21-2024 ambulatory Lena Thorne Facility:[facility] Start: 08-04-2024 End: 08-04-[address] Sylvester Bhakta MD -[facility] Work Phone: Start: 08-04-2024 End: 08-04-[address] Lena Thorne MD Work Phone: [facility] Work Phone: Start: 08-01-2024 Non-patient / Non-visit Dr. Carlos em MD -[facility] Start: 08-01-2024 End: 08-01-[address] Lena Thorne MD Work Phone: [facility] Work Phone: Start: 08-01-2024 End: 08-01-2024 Patient encounter procedure Alcira SOLANO -Cardiovascular Services Work Phone: Start: 08-01-2024 End: 08-01-2024 ambulatory [facility] Facility:[facility] Start: 07-19-2024 End: 07-19-[address] Deanna Fregoso MD -[facility] Work Phone: Start: 07-19-2024 End: 07-19-[address] Lena Thorne MD Work Phone: [facility] Work Phone: Start: 06-15-2024 End: 06-15-[address] Lena Thorne MD -[facility] Start: 06-15-2024 End: 06-15-[address] Lena Thorne MD -[facility] Work Phone: Start: 06-15-2024 End: 06-15-2024 ambulatory [facility] Facility:[facility] Start: 06-15-2024 End: 06-15-2024 ambulatory [facility] Facility:[facility] Start: 04-05-2024 End: 04-05-[address] Sylvester Bhakta MD -[facility] Work Phone: Start: 04-05-2024 End: 04-05-2024 ambulatory [facility] Facility:[facility] Start: 03-09-2024 End: 03-09-2024 ambulatory [facility] Facility:[facility] Start: 02-19-2024 End: 02-19-2024 Telephone encounter Stephania Mota MA [facility] [place] Start: 01-05-2024 End: 01-05-2024 ambulatory [facility] Facility:[facility] Start: 10-30-2023 End: 10-30-2023 Postop follow up visit related to original px Julian Kruse MD Work Phone: [facility] [place] Comment on above: Encounter for postop erative care (Primary Dx); Hiatal hernia; GERD without esophagitis Start: 10-30-2023 End: 10-30-2023 ambulatory JULIAN KRUSE [facility] Start: 10-02-2023 End: 10-02-2023 Telephone encounter Whitney Ball PA-C Work Phone: [facility] Start: 09-28-2023 End: 09-28-2023 Documentation procedure Autumn Worley RN [facility] Start: 09-25-2023 End: 09-25-2023 Postop follow up visit related to original px Julian Kruse MD Work Phone: [facility] Comment on above: Encounter for postop erative care (Primary Dx); Hiatal hernia; GERD without esophagitis; Oral thrush Start: 09-25-2023 End: 09-25-2023 [facility] Start: 09-09-2023 End: 09-10-2023 Subsequent hospital visit by physician Julian Kruse MD Work Phone: [facility] Medical Surgical Unit [facility] H5 Comment on above: Hiatal hernia (Prima ry Dx) Start: 09-09-2023 End: 09-10-2023 Unknown JULIAN KRUSE [facility] Start: 09-04-2023 End: 09-04-2023 ambulatory Autumn Worley RN [facility] Start: 08-28-2023 End: 08-28-2023 Office outpatient visit 25 minutes Julian Kruse MD Work Phone: [facility] Comment on above: GERD without esophag itis (Primary Dx); Hiatal hernia Start: 08-28-2023 End: 08-28-2023 ambulatory LENA THORNE [facility] Start: 08-25-2023 End: 08-25-2023 Telephone encounter Татьяна Muñiz PA-C Work Phone: [facility] Comment on above: Appointment Start: 08-24-2023 End: 09-16-2023 Telephone encounter Jenae Vásquez MD Work Phone: [facility] Endocrinology Comment on above: OTHER Start: 08-21-2023 End: 08-25-2023 Evaluation and management of inpatient Jayjay Fortune MD Work Phone: [facility] Medical Surgical Unit [facility] H5 Comment on above: Generalized abdomina l pain (Primary Dx); Nausea and vomiting, unspecified vomiting type Start: 08-20-2023 End: 08-20-2023 Emergency department patient visit Keith Bell MD Work Phone: [facility] EMERGENCY DEPT Comment on above: Abdominal pain, unsp ecified abdominal location (Primary Dx); Constipation, unspecified constipation type Start: 08-04-2023 End: 08-04-2023 Admission to same day surgery center Whitney Ball PA-C Work Phone: [facility] Start: 08-04-2023 End: 08-04-2023 Anesthesia consultation Lazaro Escobar DO Work Phone: [facility] [address] Start: 08-04-2023 End: 08-04-2023 ambulatory Whitney Ball PA-C Work Phone: [facility] Start: 08-04-2023 End: 08-04-2023 Subsequent hospital visit by physician Julian Kruse MD Work Phone: [facility] [address] Comment on above: Diaphragmatic hernia without obstruction or gangrene; Gastro-esophageal reflux disease without esophagitis Start: 07-29-[address] Lena Thorne MD Work Phone: [facility] Start: 07-24-2023 End: 07-24-2023 Subsequent hospital visit by physician Julian Kruse MD Work Phone: [facility] X-[facility] Comment on above: Hiatal hernia Start: 07-24-2023 End: 07-24-2023 ambulatory [facility] Start: 07-15-2023 [facility] Whitney Ball PA-C Work Phone: [facility] Start: 07-15-2023 ambulatory Whitney Ball PA-C Work Phone: [facility] Start: 06-29-2023 Telephone encounter Julian cortez MD Work Phone: [facility] Start: 06-26-2023 End: 06-26-2023 Office outpatient new 45 minutes Julian Kruse MD Work Phone: [facility] Comment on above: Hiatal hernia (Prima ry Dx); GERD without esophagitis Start: 06-26-2023 End: 06-26-2023 ambulatory [facility] Start: 06-02-2023 Telephone encounter Julian cortez MD Work Phone: [facility] Comment on above: Results Start: 05-27-2023 End: 05-27-[address] Lena Thorne Work Phone: [facility] Work Phone: Start: 05-27-2023 End: 05-27-[address] [facility] Work Phone: Start: 05-27-2023 End: 05-27-[address] Lena Thorne Work Phone: [facility] Internal Medicine Work Phone: Start: 02-12-2023 End: 02-12-[address] Lena Thorne Work Phone: [facility] Work Phone: Start: 02-12-2023 End: 02-12-[address] [facility] Start: 01-20-2023 End: 01-20-[address] Lena Thorne Work Phone: [facility] Endocrinology Work Phone: Start: 01-01-2023 End: 01-01-[address] Lena Thorne Work Phone: [facility] Internal Medicine Work Phone: Start: 12-30-2022 End: 12-30-[address] Lena Thorne Work Phone: [facility] Work Phone: Start: 12-30-2022 End: 12-30-[address] [facility] Thorne [facility] [place] Start: 11-11-2022 End: 11-11-[address] Lena Thorne Work Phone: [facility] Internal Medicine Work Phone: Start: 09-11-2022 End: 09-11-[address] Lena Thorne Work Phone: [facility] Work Phone: Start: 09-11-2022 End: 09-11-[address] Lena Thorne Work Phone: [facility]-Outpatient Breast Imaging Work Phone: Start: 07-15-2022 End: 07-15-[address] Lena Thorne Work Phone: [facility] Endocrinology Work Phone: Start: 07-07-2022 End: 07-07-2022 Encounter for general adult medical examination without abnormal findings Dr. Lena Thorne Work Phone: [facility] Start: 07-07-2022 End: 07-07-[address] Lena Thorne Work Phone: [facility] Internal Medicine Work Phone: Start: 09-12-2021 End: 09-12-[address] Lena Thorne Work Phone: [facility] Endocrinology Start: 09-10-2021 End: 09-10-[address] Lena Thorne Work Phone: [facility]-Outpatient Bone Densitometry Start: 08-22-[address] Lena Thorne Work Phone: [facility] Start: 08-22-2021 End: 08-22-2021 Encounter for general adult medical examination without abnormal findings Dr. Lena Thorne Work Phone: [facility] Internal [facility] Start: 08-22-2021 End: 08-22-[address] Lena Thorne Work Phone: [facility] Internal Medicine Start: 06-26-2021 Non-patient / Non-visit Dr. Ruben Thorne Work Phone: [facility] Start: 06-26-2021 End: 06-26-[address] Lena Thorne Work Phone: [facility]-Cardiovascula r Services Start: 06-13-2021 End: 06-13-[address] Lena Thorne Work Phone: [facility] Endocrinology Start: 05-27-2021 End: 05-27-[address] Lena Thorne Work Phone: [facility]-Laboratory, [facility] Start: 05-22-2021 End: 05-22-[address] L[facility] Thorne [facility] Start: 03-13-2021 End: 03-13-[address] Lena Thorne Work Phone: [facility] Internal Medicine Procedures Date Procedure Procedure Detail Performing Clinician Start: 11-03-2024 Screening mammography Chey Thorne MD Work Phone: Start: 10-24-2024 Urine microalbumin/creatinine ratio measurement Dr. Lena Thorne MD Work Phone: Start: 09-10-2023 Glucose quantitative blood xcpt reagent strip Julian Kruse MD Work Phone: Start: 09-10-2023 Glucose quantitative blood xcpt reagent strip Julian Kruse MD Work Phone: Start: 09-10-2023 Radiologic exam upr gi trc single contrast study Татьяна Muñiz PA-C Work Phone: Start: 09-10-2023 Basic metabolic pane l calcium total Татьяна Muñiz PA-C Work Phone: Start: 09-09-2023 Glucose quantitative blood xcpt reagent strip Julian Kruse MD Work Phone: Start: 09-09-2023 Glucose quantitative blood xcpt reagent strip Julian Kruse MD Work Phone: Start: 09-09-2023 Glucose quantitative blood xcpt reagent strip Julian Kruse MD Work Phone: Start: 09-09-2023 Glucose quantitative blood xcpt reagent strip Julian Kruse MD Work Phone: Start: 09-09-2023 End: 09-09-2023 Basic metabolic panel calcium total Татьяна Antonino PA-C Work Phone: Start: 09-09-2023 End: 09-09-2023 Laps rpr paraesphgl hrna incl fundplsty w/mesh Julian Kruse MD Work Phone: Start: 09-09-2023 Glucose quantitative blood xcpt reagent strip Julian Kruse MD Work Phone: Start: 09-09-2023 Ecg routine ecg w/le ast 12 lds trcg only w/o i&r 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 [employer]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 Work Phone: Start: 08-25-2023 Glucose quantitative blood xcpt reagent strip Piyush Zaragoza MD Work Phone: Start: 08-24-2023 Glucose quantitative blood xcpt reagent strip Piyush Zaragoza MD Work Phone: Start: 08-24-2023 Glucose quantitative blood xcpt reagent strip Piyush Zaragoza MD Work Phone: Start: 08-24-2023 Glucose quantitative blood xcpt reagent strip Piyush Zaragoza MD Work Phone: Start: 08-24-2023 Glucose quantitative blood xcpt reagent strip Piyush Zaragoza MD Work Phone: Start: 08-23-2023 Glucose quantitative blood xcpt reagent strip Piyush Zaragoza MD Work Phone: Start: 08-23-2023 Glucose quantitative blood xcpt reagent strip Piyush Zaragoza MD Work Phone: Start: 08-23-2023 End: 08-23-2023 Glucose quantitative blood xcpt reagent strip Piyush Zaragoza MD Work Phone: Start: 08-23-2023 Comprehensive metabo lic panel Piyush Zaragoza MD Work Phone: Start: 08-22-2023 Glucose quantitative blood xcpt reagent strip Piyush Zaragoza MD Work Phone: Start: 08-22-2023 Glucose quantitative blood xcpt reagent strip Piyush Zaragoza MD Work Phone: Start: 08-22-2023 Us abdominal real ti me w/image documentation Ronnie Alexandre MD Work Phone: Start: 08-22-2023 End: 08-22-2023 Glucose quantitative blood xcpt reagent strip Piyush Zaragoza MD Work Phone: Start: 08-22-2023 End: 08-22-2023 Sigmoidoscopy flx dx w/collj spec br/wa if pfrmd Val Chan MD Work Phone: Start: 08-22-2023 Glucose quantitative blood xcpt reagent strip Arsalan Swenson MD Work Phone: Start: 08-22-2023 End: 08-22-2023 Basic metabolic panel calcium total Arsalan Swenson MD Work Phone: Start: 08-21-2023 Glucose quantitative blood xcpt reagent strip Arsalan Swenson MD Work Phone: Start: 08-21-2023 Ct abdomen & pelvis w/contrast material Wilber Coto MD Work Phone: Start: 08-21-2023 Basic metabolic pane l calcium total Jayjay Fortune MD Work Phone: Start: 08-20-2023 Urinalysis complete panel - Urine Hoa SOLANO-C Work Phone: Start: 08-20-2023 Urnls dip stick/tabl et rgnt auto w/o microscopy Hoa Bhagatse PA-C Work Phone: Start: 08-20-2023 Ct abdomen & pelvis w/contrast material Hoa Calhoun PA-C Work Phone: Start: 08-20-2023 Comprehensive metabo lic panel Hoa Calhoun PA-C Work Phone: Start: 08-04-2023 Glucose quantitative blood xcpt reagent strip Julian Kruse MD Work Phone: Start: 07-24-2023 Radiologic exam upr gi trc double contrast study Julian Kruse MD Work Phone: Start: 05-27-2023 Plain x-ray of pelvi s and lower extremity Dr. Lena Thorne Work Phone: Start: 05-27-2023 Plain X-ray of tibia and fibula Dr. Lena Thorne Work Phone: Start: 05-27-2023 X-ray of lumbosacral spine Dr. Lena Thorne Work Phone: Start: 09-11-2022 Screening mammography D jorge Thorne Work Phone: Start: 09-10-2021 Dual energy X-ray absorptiometry Dr. Lena Thorne Work Phone: Start: 09-10-2021 Screening mammography D rGerald Thorne Work Phone: Plan of Treatment Date Care Activity Detail Author Start: 11-11-2027 DTaP/Tdap/Td Vaccines (2 - Td or Tdap) DTaP/Tdap/Td Vaccines (2 - Td or Tdap) [facility] Start: 11-11-2027 DTaP/Tdap/Td Vaccines (3 - Td or Tdap) DTaP/Tdap/Td Vaccines (3 - Td or Tdap) [facility] Start: 11-21-2024 Thyroperoxidase Ab [Units/volume] in Serum or Plasma [facility] Start: 10-24-2024 Urine microalbumin/creatinine ratio measurement [facility] Start: 09-09-2024 Diabetes: Estimated Glomerular Filtration Rate for Kidney Health Diabetes: Estimated Glomerular Filtration Rate for Kidney Health [facility] Start: 10-30-2023 End: 10-30-2023 Patient encounter procedure 10/30/2023 11:30 AM EDT Office Visit [facility] [address] [place] [phone] Julian Kruse MD [address] [place], [place] [id number] [facility] Start: 10-27-2023 End: 10-27-2023 Patient encounter procedure 10/27/2023 9:00 AM EDT Office Visit [facility] [address] [place] [phone] Whitney Ball PA-C [address] [place], [place] [id number] [facility] Start: 10-18-2023 COVID-19 Vaccine ( season) COVID-19 Vaccine ( season) [facility] Start: 10-18-2023 COVID-19 Vaccine ( season) COVID-19 Vaccine ( season) [facility] Start: 10-18-2023 Influenza vaccination Influenza Vaccine (#1) [facility] Start: 09-25-2023 End: 09-25-2023 Patient encounter procedure 09/25/2023 11:15 AM EDT Office Visit [facility] [address] [place] [phone] Julian Kruse MD [address] [place], [place] [id number] [facility] Start: 09-09-2023 End: 09-09-2023 Admission to same day surgery center [facility] MAIN OR Comment on above: LAPAROSCOPIC HIATAL HERNIA REPAIR, WITH MESH, WITH POSTERIOR FUNDOPLICATION, POSSIBLE OPEN [71864 (CPT )] LAPAROSCOPIC HIATAL HERNIA REPAIR, WITH MESH, WITH POSTERIOR FUNDOPLICATION, [59234 (CPT )] Start: 09-09-2023 End: 09-09-2023 Egd transoral biopsy single/multiple [facility] Start: 09-09-2023 End: 09-09-2023 Laps rpr paraesphgl hrna incl fundplsty w/mesh [facility] Start: 09-09-2023 Subsequent hospital visit by physician [facility] MAIN OR Start: 09-02-2023 End: 09-02-2023 Admission to same day surgery center 09/02/2023 7:00 AM EDT - 09/02/2023 9:30 AM EDT Surgery [facility] MAIN OR [address] [place] [address] Julian Kruse MD [address] [place] [address] [address] [place] [address] LAPAROSCOPIC HIATAL HERNIA REPAIR, WITH MESH, WITH POSTERIOR FUNDOPLICATION, POSSIBLE OPEN [70187 (CPT )] [facility] MAIN OR Comment on above: LAPAROSCOPIC HIATAL HERNIA REPAIR, WITH MESH, WITH POSTERIOR FUNDOPLICATION, POSSIBLE OPEN [32870 (CPT )] Start: 09-02-2023 End: 09-02-2023 Egd transoral biopsy single/multiple ESOPHAGOGASTRODUODENOSCOPY WITH BIOPSY Diaphragmatic hernia without obstruction or gangrene Acute bronchiolitis, unspecified 09/02/2023 7:00 AM EDT [facility] Operating Room Start: 09-02-2023 End: 09-02-2023 Laps rpr paraesphgl hrna incl fundplsty w/mesh LAPAROSCOPY REPAIR PARAESOPHAGEAL HERNIA INCLUDING FUNDOPLASTY WITH MESH Diaphragmatic hernia without obstruction or gangrene Acute bronchiolitis, unspecified 09/02/2023 7:00 AM EDT [facility] Start: 09-02-2023 Subsequent hospital visit by physician 09/02/2023 5:00 AM EDT Hospital Encounter [facility] MA[facility] OR [address] [place] [phone] Julian Kruse MD [address] [place], [place] [phone] [facility] Start: 08-28-2023 End: 08-28-2023 Patient encounter procedure 08/28/2023 10:00 AM EDT Consult [facility] [address] [place] [phone] Julian Kruse MD [address] [facility] [address] [place] [phone] [facility] Start: 08-26-2023 End: 08-26-2023 Admission to establishment [facility] Pre-Admit Testing Start: 08-04-2023 End: 08-04-2023 Admission to same day surgery center 08/04/2023 11:00 AM EDT - 08/04/2023 11:30 AM EDT Surgery [facility] [address] [place] [address] Julian Kruse MD [address] [place] [address] [address] [place] [phone] ESOPHAGOGASTRODUODENOSCOPY WITH BIOPSY [22161 (CPT )] [facility] [address] Comment on above: ESOPHAGOGASTRODUODENOSCOPY WITH BIOPSY [ 25534 (CPT )] Start: 08-04-2023 Subsequent hospital visit by physician 08/04/2023 11:00 AM EDT Hospital Encounter [facility] [address] [place] [address] Julian Kruse MD [address] [facility] [address] [place] [id number] [facility] [address] Start: 08-04-2023 End: 08-04-2023 Egd transoral biopsy single/multiple [facility] Start: 07-24-2023 End: 07-24-2023 Patient encounter procedure 07/24/2023 10:00 AM EDT Appointment [facility] [address] [place] [phone] Julian Kruse MD [address] [facility] [address] [place] [id number] [facility] Start: 06-26-2023 End: 06-25-2024 RF Upper gastrointestinal tract and Small bowel Single view W contrast PO FL upper GI double contrast w KUB Imaging Routine Hiatal hernia Expected: 06/26/2023, Expires: 06/25/2024 [facility] Work Phone: Comment on above: Expected: 06/26/2023, Expires: Start: 06-26-2023 End: 06-26-2023 Patient encounter procedure 06/26/2023 11:15 AM EDT Office Visit [facility] [facility] [address] [facility] [address] [place] [address] [phone] Julian Kruse MD [address] [place] [address] [place] [id number] [facility] Start: 10-17-2022 COVID-19 Vaccine ( season) COVID-19 Vaccine ( season) [facility] Start: 2021 RSV Immunization for Adults (1 - 1-dose 75+ series) RSV Immunization for Adults (1 - 1-dose 75+ series) [facility] Start: 05-22-2021 Patient referral [facility] Work Phone: Start: 2006 RSV Immunization aged 60 or older (1 - 1-dose 60+ series) RSV Immunization aged 60 or older (1 - 1-dose 60+ series) [facility] Start: 1996 Zoster Vaccines (1 of 2) Zoster Vaccines (1 of 2) [facility] Start: 1964 Diabetes: Urine Albumin-Creatinine Ratio for Kidney Health Diabetes: Urine Albumin-Creatinine Ratio for Kidney Health [facility] Start: 1964 Hepatitis C screening Hepatitis C Screening [facility] Start: 1958 Depression Screening Depression Screening [facility] Start: 1945 Medicare Annual Wellness (AWV) Medicare Annual Wellness (AWV) [facility] Start: 1945 Screening for osteoporosis Bone Density Scan [facility] CBC W Auto Different ial panel - Blood [facility] Work Phone: CBC W Auto Different ial panel - Blood [facility] Creatinine [Mass/vol ume] in Urine collected for unspecified duration [facility] DXA Bone [Mass/Area] Bone density [facility] Hemoglobin A1c/Hemoglobin.total in Blood [facility] Lipid 1995 panel - S alfredo or Plasma [facility] Work Phone: Lipid 1995 panel - S alfredo or Plasma [facility] Lipid 1995 panel - S alfredo or Plasma [facility] Microalbumin [Mass/v olume] in Urine [facility] Patient referral [place] Work Phone: Thyroid stimulating hormone measurement [facility] Tissue exam [facility] Work Phone: Comment on above: Release Upon Ordering for 1 Occurrences starting 08/04/2023 Urine microalbumin/c reatinine ratio measurement [facility] Work Phone: US Thyroid gland [facility] Immunizations Immunization Date Immunization Notes Care Provider Marie mckoy 11-29-2024 Seasonal trivalent influenza vaccine, adjuvanted, preservative free Dr. Lena Thorne MD Work Phone: [facility] 12-03-2023 Seasonal trivalent influenza vaccine, adjuvanted, preservative free Dr. Lena Thorne MD Work Phone: [facility] 11-11-2022 influenza, injectabl e, quadrivalent, preservative free Dr. Lena Thorne Work Phone: [facility] 11-11-2022 influenza virus vacc ine, unspecified formulation Keith Bell MD Work Phone: [facility] 12-20-2021 Influenza, High-dose Seasonal, Quadrivalent, Preservative Free Julian Kruse MD Work Phone: [facility] 04-27-2020 Covid (Moderna) Dr. Denny Thorne Work Phone: [facility] 10-17-2019 influenza, high dose seasonal, preservative-free Julian Kruse MD Work Phone: [facility] 11-17-2018 pneumococcal polysaccharide vaccine, [address] Lena Thorne Work Phone: [facility] 11-17-2018 pneumococcal vaccine , unspecified formulation Dr. Lena Thorne Work Phone: [facility] Work Phone: 11-17-2018 Fluad 2019-20 65yr up(PF)45 mcg(15 mcgx3)/0.5 mL intramuscular syringe (flu vac Dr. Lena Thorne Work Phone: [facility] Work Phone: 12-08-[address] Lena Thorne Work Phone: [facility] 12-08-2017 influenza, seasonal, injectable, preservative free Julian Kruse MD Work Phone: [facility] 11-10-2017 pneumococcal vaccine , unspecified formulation Dr. Lena Thorne Work Phone: [facility] Work Phone: 11-10-2017 diphtheria, tetanus toxoids and acellular pertussis vaccine, unspecified formulation Dr. Lena Thorne Work Phone: [facility] Work Phone: 11-10-2017 pneumococcal conjuga te vaccine, [address] Lena Thorne Work Phone: [facility] 11-10-2017 tetanus toxoid, redu zohaib diphtheria toxoid, and acellular pertussis vaccine, adsorbed Dr. Lena Thorne Work Phone: [facility] 12-18-2008 novel influenza-H1N1 -09, preservative-free, injectable Julian Kruse MD Work Phone: [facility] Payers Date Payer Category Payer Self-pay [id number] 2021 Medicare supplementa l policy (as second payer) MMO MEDICARE SUPPLEMENT [id number] 2021 Unknown [employer] M [place] MEDICARE SUPPLEMENT [id number] 2021-Present [address] [place] [address] Supplement [id number] 2012 Unknown [id number] 2011 Medicare [id number] 2011 Medicare [id number] Unknown [id number] Unknown [id number] .462 Unknown [id number] .462 Unknown [id number] .462 Unknown [id number] [id number] .462 Unknown [id number] .462 Unknown [id number] .462 Unknown [id number] [id number] .462 Unknown [id number] .462 Unknown [id number] [id number] .462 Unknown [id number] [id number] .462 Unknown [id number] [id number] .462 Unknown [id number] [id number] .462 Unknown [id number] [id number] .462 Unknown [id number] [id number] .462 Unknown [id number] [id number] .462 Unknown [id number] .462 Social History Date Type Detail Facility Start: 05-22-2021 End: 05-27-2023 Tobacco smoking status NHIS Unknown if ever smoked [facility] Start: 1945 Sex Assigned At Female [facility] Start: 1945 Sex Assigned At Not on file [facility] Start: 06-26-2023 End: 10-30-2023 Gender identity Not on file [facility] Start: 06-26-2023 End: 07-29-2023 Tobacco smoking status DEIS Never smoked tobacco [facility] Start: 06-26-2023 Tobacco use and exposure Smokeless tobacco non-user [facility] Start: 06-26-2023 Alcohol intake Current drinke r of alcohol (finding) [facility] Start: 06-26-2023 [facility] Start: 06-26-2023 End: 10-30-2023 History of Social function [facility] Start: 08-04-2023 End: 10-30-2023 Alcoholic beverage intake Ex-drinker (finding) [facility] How often to you hav e a drink containing alcohol? Never [facility] How many standard drinks containing alcohol do you have on a typical day? Patient does not drink [facility] Within the last year , have you been afraid of your partner or ex-partner? No [facility] Start: 06-02-2023 Sex Female (finding) [facility] Medical Equipment Procedure Code Equipment Code Equipment Origin al Text Equipment Identifier Dates Blood Sugar Diagnostic (Freestyle Precision Leonardo Strips) strip Start: 06-13-2021 Blood Sugar Diagnostic (Freestyle Precision Leonardo Strips) strip Start: 06-13-2021 Lancets (Accu-Ch ek Fastclix Lancet Drum) misc Start: 09-12-2021 Lancets (Accu-Ch ek Fastclix Lancet Drum) misc Start: 09-12-2021 End: 09-12-2021 Blood Sugar Diagnostic (Freestyle Precision Leonardo Strips) strip Start: 06-13-2021 Lancets (Accu-Ch ek Fastclix Lancet Drum) misc Start: 09-12-2021 Lancets (Accu-Ch ek Fastclix Lancet Drum) misc Start: 09-12-2021 End: 09-12-2021 Blood Sugar Diagnostic (Freestyle Precision Leonardo Strips) strip Start: 06-13-2021 Lancets (Accu-Ch ek Fastclix Lancet Drum) misc Start: 09-12-2021 Lancets (Accu-Ch ek Fastclix Lancet Drum) misc Start: 09-12-2021 End: 09-12-2021 Blood Sugar Diagnostic (Freestyle Precision Leonardo Strips) strip Start: 06-13-2021 Lancets (Accu-Ch ek Fastclix Lancet Drum) misc Start: 09-12-2021 Lancets (Accu-Ch ek Fastclix Lancet Drum) misc Start: 09-12-2021 End: 09-12-2021 Blood Sugar Diagnostic (Freestyle Precision Leonardo Strips) strip Start: 06-13-2021 Lancets (Accu-Ch ek Fastclix Lancet Drum) misc Start: 09-12-2021 Lancets (Accu-Ch ek Fastclix Lancet Drum) misc Start: 09-12-2021 End: 09-12-2021 Blood Sugar Diagnostic (Freestyle Precision Leonardo Strips) strip Start: 06-13-2021 Lancets (Accu-Ch ek Fastclix Lancet Drum) misc Start: 09-12-2021 Pen Needle, Diab etic (Bd Ultra-Fine Naty Pen Needle) 32 gauge x 5/32 needle Start: 06-08-2024 Lancets (Accu-Ch ek Fastclix Lancet Drum) misc Start: 09-12-2021 End: 09-12-2021 Pen Needle, Diab etic (Bd Ultra-Fine Naty Pen Needle) 32 gauge x 5/32 needle Start: 01-05-2024 End: 06-08-2024 Blood Sugar Diagnostic (Freestyle Precision Leonardo Strips) strip Start: 06-13-2021 Lancets (Accu-Ch ek Fastclix Lancet Drum) misc Start: 09-12-2021 Pen Needle, Diab etic (Bd Ultra-Fine Naty Pen Needle) 32 gauge x 5/32 needle Start: 06-08-2024 Lancets (Accu-Ch ek Fastclix Lancet Drum) misc Start: 09-12-2021 End: 09-12-2021 Pen Needle, Diab etic (Bd Ultra-Fine Naty Pen Needle) 32 gauge x 5/32 needle Start: 01-05-2024 End: 06-08-2024 Blood Sugar Diagnostic (Freestyle Precision Leonardo Strips) strip Start: 06-13-2021 Lancets (Accu-Ch ek Fastclix Lancet Drum) misc Start: 09-12-2021 Pen Needle, Diab etic (Bd Ultra-Fine Naty Pen Needle) 32 gauge x 5/32 needle Start: 06-08-2024 Lancets (Accu-Ch ek Fastclix Lancet Drum) misc Start: 09-12-2021 End: 09-12-2021 Pen Needle, Diab etic (Bd Ultra-Fine Naty Pen Needle) 32 gauge x 5/32 needle Start: 01-05-2024 End: 06-08-2024 Blood Sugar Diagnostic (Freestyle Precision Leonardo Strips) strip Start: 06-13-2021 Lancets (Accu-Ch ek Fastclix Lancet Drum) misc Start: 09-12-2021 Pen Needle, Diab etic (Bd Ultra-Fine Naty Pen Needle) 32 gauge x 5/32 needle Start: 06-08-2024 Lancets (Accu-Ch ek Fastclix Lancet Drum) misc Start: 09-12-2021 End: 09-12-2021 Pen Needle, Diab etic (Bd Ultra-Fine Naty Pen Needle) 32 gauge x 5/32 needle Start: 01-05-2024 End: 06-08-2024 Blood Sugar Diagnostic (Freestyle Precision Leonardo Strips) strip Start: 06-13-2021 Lancets (Accu-Ch ek Fastclix Lancet Drum) misc Start: 09-12-2021 Pen Needle, Diab etic (Bd Ultra-Fine Naty Pen Needle) 32 gauge x 5/32 needle Start: 06-08-2024 Lancets (Accu-Ch ek Fastclix Lancet Drum) misc Start: 09-12-2021 End: 09-12-2021 Pen Needle, Diab etic (Bd Ultra-Fine Naty Pen Needle) 32 gauge x 5/32 needle Start: 01-05-2024 End: 06-08-2024 Blood Sugar Diagnostic (Freestyle Precision Leonardo Strips) strip Start: 06-13-2021 Lancets (Accu-Ch ek Fastclix Lancet Drum) misc Start: 09-12-2021 Pen Needle, Diab etic (Bd Ultra-Fine Naty Pen Needle) 32 gauge x 5/32 needle Start: 06-08-2024 Lancets (Accu-Ch ek Fastclix Lancet Drum) misc Start: 09-12-2021 End: 09-12-2021 Pen Needle, Diab etic (Bd Ultra-Fine Naty Pen Needle) 32 gauge x 5/32 needle Start: 01-05-2024 End: 06-08-2024 Blood Sugar Diagnostic (Freestyle Precision Leonardo Strips) strip Start: 06-13-2021 Lancets (Accu-Ch ek Fastclix Lancet Drum) misc Start: 09-12-2021 Pen Needle, Diab etic (Bd Ultra-Fine Naty Pen Needle) 32 gauge x 5/32 needle Start: 06-08-2024 Lancets (Accu-Ch ek Fastclix Lancet Drum) misc Start: 09-12-2021 End: 09-12-2021 Pen Needle, Diab etic (Bd Ultra-Fine Naty Pen Needle) 32 gauge x 5/32 needle Start: 01-05-2024 End: 06-08-2024 Blood Sugar Diagnostic (Freestyle Precision Leonardo Strips) strip Start: 06-13-2021 Lancets (Accu-Ch ek Fastclix Lancet Drum) misc Start: 09-12-2021 Pen Needle, Diab etic 32 gauge x 5/32 needle Start: 11-21-2024 Lancets (Accu-Ch ek Fastclix Lancet Drum) misc Start: 09-12-2021 End: 09-12-2021 Pen Needle, Diab etic (Bd Ultra-Fine Naty Pen Needle) 32 gauge x 5/32 needle Start: 01-05-2024 End: 06-08-2024 Pen Needle, Diab etic (Bd Ultra-Fine Naty Pen Needle) 32 gauge x 5/32 needle Start: 06-08-2024 End: 11-21-2024 Blood Sugar Diagnostic (Freestyle Precision Leonardo Strips) strip Start: 06-13-2021 Lancets (Accu-Ch ek Fastclix Lancet Drum) misc Start: 09-12-2021 Pen Needle, Diab etic 32 gauge x 5/32 needle Start: 11-21-2024 Lancets (Accu-Ch ek Fastclix Lancet Drum) misc Start: 09-12-2021 End: 09-12-2021 Pen Needle, Diab etic (Bd Ultra-Fine Naty Pen Needle) 32 gauge x 5/32 needle Start: 01-05-2024 End: 06-08-2024 Pen Needle, Diab etic (Bd Ultra-Fine Naty Pen Needle) 32 gauge x 5/32 needle Start: 06-08-2024 End: 11-21-2024 Clinical Notes 06-02-2023 to 11-29-2024 Note Date & Type Note Facility 11-29-2024 Progress note [facility] 10-24-2024 Evaluation note Diagnosis Onset Date Resolution Osteoarthritis acute October 24, 2024 12:54pm Essential (primary) hypertension chronic October 24, 2 025 12:54pm GERD (gastroesophageal reflux disease) chronic October 24, 2 025 12:54pm Hyperlipidemia October 24, 2024 12:54pm Type 2 diabetes mellitus October 24, 2024 12:54pm Abdominal pain november 2:20pm Essential (primary) hypertension November 21 2:20pm Hyperlipidemia chronic November 2:20pm Thyroid nodule november 2:20pm Type 2 diabetes mellitus November 21, 2024 2:20pm [facility] Work Phone: 1(366) 633-133706-19-2025 Evaluation note* Diagnosis Onset Date Resolution Status Admit Date Diabetes chronic August 04 2:18pm Essential (primary) hypertension chronic August 04, 2024 2:18pm Hyperlipidemia chronic August 04, 2024 2:18pm Thyroid nodule chronic August 04, 2024 2:18pm Osteoarthritis acute October 24, 2024 12:54pm Type 2 diabetes mellitus October 24, 2024 12:54pm Essential (primary) hypertension chronic October 24, 025 12:54pm GERD (gastroesophageal reflu x disease) chronic October 24, 025 12:54pm Hyperlipidemia October 24, 2024 12:54pm [facility] Work Phone: 1(944) 134-996406-19-2025 Evaluation note* Diagnosis Onset Date Resolution Status Admit Date Diabetes chronic August 04 2:18pm Essential (primary) hypertension chronic August 04, 2024 2:18pm Hyperlipidemia chronic August 04, 2024 2:18pm Thyroid nodule chronic August 04, 2024 2:18pm Osteoarthritis acute October 24, 2024 12:54pm Type 2 diabetes mellitus acute October 24, 2024 12:54pm Essential (primary) hypertension chronic October 24, 2 025 12:54pm GERD (gastroesophageal reflu x disease) October 24, 2 025 12:54pm Hyperlipidemia October 24, 2024 12:54pm Type 2 diabetes mellitus acute November 21, 2024 2:20pm Thyroid nodule chronic November 2:20pm [facility] Work Phone: 1(930) 906-221906-03-2025 Evaluation note* Diagnosis Onset Date Resolution Status Admit Date Carotid artery disease chronic 2024 1:50pm Diastolic dysfunction chronic Jul 1:50pm Essential (primary) hypertension chr onic July 19, 2024 1:50pm Hyperlipidemia chronic July 19, 2024 1:50pm Diabetes mellitus type 2, controlled, without complications deleted July 19, 2024 1 :50pm Diabetes chronic August 04 2:18pm Essential (primary) hypertension chr onic August 04, 2024 2:18pm Hyperlipidemia chronic August 04, 2024 2:18pm Thyroid nodule chronic August 04, 2024 2:18pm [facility] Work Phone: 1(120) 199-199806-03-2025 Evaluation note* Diagnosis Onset Date Resolution Status Admit Date Carotid artery disease chronic 2024 1:50pm Diastolic dysfunction chronic Jul 1:50pm Essential (primary) hypertension chronic July 19, 2024 1 :50pm Hyperlipidemia chronic July 19, 2024 1:50pm Diabetes mellitus type 2, controlled, without complications deleted July 19, 2024 1 :50pm Diabetes chronic August 04 2:18pm Essential (primary) hypertension chronic August 04, 2024 2:18pm Hyperlipidemia chronic August 04, 2024 2:18pm Thyroid nodule chronic August 04, 2024 2:18pm Osteoarthritis acute October 24, 2024 12:54pm Type 2 diabetes mellitus acute October 24, 2024 12:54pm Essential (primary) hypertension chronic October 24, 2 025 12:54pm GERD (gastroesophageal reflu x disease) chronic October 24, 2 025 12:54pm Hyperlipidemia chronic October 24, 2024 12:54pm [facility] Work Phone: 1(524) 384-417906-03-2025 [facility] [address] [place] [address] OFFICE VISIT Date of Service: 07/19/24 MR#: [id number] Acct: [id number] Name: SHEYLA RAMIREZ Rep #: [id number] : 1945 Provider: Dr. 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 Here for follow-up visit. Denies any complaints. No chest pains. No shortness of breath. No palpitations. No orthopnea or PND. Occasional ankle edema towards the end of the day which is resolved by the morning. Intake Vital Signs 06/15/24 14:09 07/19/24 07:39 Height 5 ft 7 in 5 ft 7 in Weight: 154 lb 6 oz 154 lb BMI 24.1 24.1 BP 98/54 L 107/69 Blood Pressure Location Lt brachial Lt brachial Position Sitting Sitting Respiration 12 18 Pulse 77 80 Pulse Source Monitor NIBP Temp 96.3 F L Pulse Oximetry (%) 95 Oxygen Delivery Method room air Intake Visit Reasons: 1 Y FU Fiscal Officer Required: No Accompanied by: Self Is patient in pain?: No Allergies Penicillins Allergy (Severe, Verified 07/19/24 14:14) Rash grass pollen Allergy (Intermediate, Verified 07/19/24 14:14) Unknown house dust Allergy (Intermediate, Verified 07/19/24 14:14) Unknown mold Allergy (Intermediate, Verified 07/19/24 14:14) Unknown Seasonal Allergies: Uncoded Allergy (Intermediate, Verified 07/19/24 14:14) NEEDS FOLLOW-UP Sulfa (Sulfonamide Antibiotics) Allergy (Unknown, Verified 07/19/24 14:14) Swelling neomycin Allergy (Verified 07/19/24 14:14) edeema, skin reaction lisinopril Adverse Reaction (Verified 07/19/24 14:14) cough Medications ?Medication ?Instructions ?Recorded ?Confirmed ?Type latanoprost 0.005 % eye drops 1 drp ophthalmic (eye) Q DAY 01/28/17 07/19/24 History blood sugar diagnostic (FreeStyle #90 ea 06/13/2105/10 Rx Precision Leonardo Strips) lancets (Accu-Chek Fastclix Lancet #102 ea 09/12/21 Rx Drum) multivitamin 1 tab PO DAILY 07/07/2205/10 History cholecalciferol (vitamin D3) 1,250 1,250 mcg PO QWEEK #20 caps 01/01/23 07/19/24 Rx mcg (50,000 unit) capsule lansoprazole 15 mg capsule,delayed 15 mg PO QHS 30 day s #30 caps 07/29/23 07/19/24 History release glimepiride 4 mg tablet 4 mg PO BID 3 months #180 ta bs 10/05/23 07/19/24 Rx brimonidine 0.2 % eye drops 1 drp ophthalmic (eye) BID 01/05/24 07/19/24 History atorvastatin 10 mg tablet See Rx Instructions .Route 1 03/23/23 07/19/24 Rx .COMPLEX #90 tabs losartan 25 mg tablet 12.5 mg (1/2 x 25 mg) PO QDA Y #90 03/09/24 07/19/24 Rx tabs FreeStyle Wilfredo 3 Plus Sensor #6 ea 04/05/24 07/19/24 Rx (blood-glucose sensor) blood-glucose,product support technician,cont #1 ea 04/05/24 07/19/24 Rx (FreeStyle Wilfredo 3 Trimble) Tresiba FlexTouch U-100 100 5 unit (0.05 mL) subcut QD AY #15 mL 05/03/24 07/19/24 Rx unit/mL (3 mL) subcutaneous pen (insulin degludec) metformin 500 mg tablet 500 mg PO BID #180 tabs 04/1607/19/24 Rx pen needle, diabetic 32 gauge x #50 ea 06/08/24 Rx 5/32 (BD Ultra-Fine Naty Pen Needle) Novolog FlexPen U-100 Insulin 100 10 unit (0.1 mL) sub cut TID #15 mL 07/04/24 Rx unit/mL (3 mL) subcutaneous (insulin aspart U-100) Ejection fraction %: 65 Have you fallen in the past year?: No PFSH Medical History Diabetes Thyroid nodule Neck mass Back pain GERD (gastroesophageal reflux disease) Lumbar radiculopathy Constipation Cough Intermittent palpitations Thyroid disease Palpitation Pain in left araya Low back pain Left hip pain Osteopenia Hyperlipidemia Health care maintenance Carotid artery disease OSCAR (acute kidney injury) Abdominal pain Bilateral impacted cerumen Flu vaccine need Vitamin D deficiency Breast cancer screening GERD (gastroesophageal reflux disease) Essential (primary) hypertension partial sigmoidectomy Thyroid disease Pneumonia Osteoarthritis Hearing problem Glaucoma Back problem Arthritis Seasonal allergies Surgical History S/P laparoscopic fundoplication Normal colonoscopy History of right breast biopsy Family History Mother Breast cancer Diabetes Father Thyroid disorder Cancer Grandfather CVA (cerebral vascular accident) Social History Smoking Status: Never smoker second hand exposure: No alcohol intake: current alcohol intake frequency: holidays/special occasions only substance use type: does not use caffeine: Yes Type: coffee Number of servings: 1 what type of physical activity do you participate in: none ROS Const Const: Negative for fatigue, weakness, headache(s) or weight gain ENT ENT: Negative for headache(s), dizziness, Nosebleed/epistaxis or balance problems Cardio Chest Pain: No Palpitations: No Edema: None Muscle aches with walking: None Resp Respiratory: Negative for SOB with activity, SOB at rest or SOB orthopneaundefinedSOB lying down GI GI: Positive for heartburn (with dietary choices); Negative nausea or vomiting Musc Musc: Negative for muscle aches/ myalgia, muscle weakness, joint pain or balanceproblems Neuro Neuro: Negative for dizziness, lightheadedness, near syncope, syncope, headache(s) or weakness Endo Endo: Negative for fatigue Cardiology Exam Const Appearance: comfortable and no acute distress Nutritional Appearance: well nourished Neck Neck: no JVD Carotids: Negative bruit Chest Auscultation: Bilateral: Clear to Auscultation Cardio Rate: regular rate Rhythm: regular rhythm Heart sounds: S1 normal and S2 normal Neuro General: patient alert, patient awake and patient oriented x3 Extremities Lower Extremity Edema: None: Bilateral Supplemental Info Supplemental Information ECHOCARDIOGRAM 08/2023 Normal LV size. Left ventricular systolic function is normal. The left ventricular ejection fraction is 65 %. There is mild mitral annular calcification. Stage 1 diastolic dysfunction. Pharmacologic Myocardial Perfusion Stress Test 08/19/2023: Conclusion: Normal pharmacologic myocardial perfusion stress test. Preserved ejection fraction. 30 DAY EVENT MONITOR 08/26/2017-09/24/2017: AVG HR was 71 bpm MAX HR was 120 bpm MIN HR was 50 bpm NO ATRIAL FIBRILLATION NOTED. Carotid Duplex US 08/19/2023: Interpretation Summary Moderate (50-69%) stenosis right extracranial internal carotid. Mild (<50%) stenosis left extracranial internal carotid. Patent and antegrade vertebrals bilaterally. CAROTID DUPLEX 06/26/2021: Interpretation Summary Smooth plaque at the proximal right internal carotid artery with less than 50% stenosis Less than 50% stenosis right external carotid artery Minimal irregular calcific plaque with shadowing at the proximal left internal carotid artery with less than 50% stenosis Less than 50% stenosis left external carotid artery Irregular calcific plaque noted in the left carotid bulb Patent and antegrade vertebral arteries bilaterally Thyroid US 11/24/2023: IMPRESSION: Bilateral colloid cysts. Dominant 2 cm right thyroid nodule with TR score of 2. No specific follow-up indicated. Assessment and Plan Assessment and Plan (1) Carotid artery disease: Status: Chronic Plan: Repeat carotid Doppler study. Counseled to start taking enteric-coated aspirin 81 mg daily. (2) Diastolic dysfunction: Status: Chronic Plan: Stage I diastolic dysfunction. For clinical follow-up. Risk factor modification. (3) Essential (primary) hypertension: Status: Chronic Plan: On losartan. (4) Diabetes mellitus type 2, controlled, without complications: Status: Chronic Qualifiers: Diabetes mellitus penitentiary insulin use: without remote computer terminal operator use Qualified Code(s): E11.9 - Type 2 diabetes mellitus without complications Plan: As per PCP. (5) Hyperlipidemia: Status: Chronic Qualifiers: Hyperlipidemia type: unspecified Qualified Code(s): E78.5 - Hyperlipidemia, unspecified Plan: On atorvastatin. Continue to manage as per primary care physician. Plan Details Follow Up: 12 Months Coding Level of Care Code Off vis,est,level 4 Diagnoses Carotid artery disease I77.9 Diastolic dysfunction I51.89 Essential (primary) hypertension I10 Controlled type 2 diabetes mellitus without complication, without long-term current use of insulin E11.9 Diabetes mellitus remote computer terminal operator insulin use: without penitentiary use Hyperlipidemia, unspecified hyperlipidemia type E78.5 Hyperlipidemia type: unspecified Coding Level of Care Code Off vis,est,level 4 Diagnoses Carotid artery disease I77.9 Diastolic dysfunction I51.89 Essential (primary) hypertension I10 Controlled type 2 diabetes mellitus without complication, without long-term current use of insulin E11.9 Diabetes mellitus remote computer terminal operator insulin use: without remote computer terminal operator use Hyperlipidemia, unspecified hyperlipidemia type E78.5 Hyperlipidemia type: unspecified Clinical Quality Measures Falls Risk Screening/Assistive Devices Have you fallen in the past year?: No Cardiac Ejection fraction %: 65 07/19/24 1433 MD> Date _ Deanna Fregoso MD Cosigner Signature: Date (if applicable) CC: Dr. Lena Thorne MD ~ [facility]06-03-2025 Progress note Author Deanna Fregoso [facility] Note Date/Time July 19, 2024 2:33p m [facility] [address] [place] [address] OFFICE VISIT Date of Service: 07/19/24 MR#: [id number] Acct: [id number] Name: SHEYLA RAMIREZ Rep #: [id number] : 1945 Provider: Dr. 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 Here for follow-up visit. Denies any complaints. No chest pains. No shortness of breath. No palpitations. No orthopnea or PND. Occasional ankle edema towards the end of the day which is resolved by the morning. Intake Vital Signs 06/15/24 14:09 07/19/24 07:39 Height 5 ft 7 in 5 ft 7 in Weight: 154 lb 6 oz 154 lb BMI 24.1 24.1 BP 98/54 L 107/69 Blood Pressure Location Lt brachial Lt brachial Position Sitting Sitting Respiration 12 18 Pulse 77 80 Pulse Source Monitor NIBP Temp 96.3 F L Pulse Oximetry (%) 95 Oxygen Delivery Method room air Intake Visit Reasons: 1 Y FU Fiscal Officer Required: No Accompanied by: Self Is patient in pain?: No Allergies Penicillins Allergy (Severe, Verified 07/19/24 14:14) Rash grass pollen Allergy (Intermediate, Verified 07/19/24 14:14) Unknown house dust Allergy (Intermediate, Verified 07/19/24 14:14) Unknown mold Allergy (Intermediate, Verified 07/19/24 14:14) Unknown Seasonal Allergies: Uncoded Allergy (Intermediate, Verified 07/19/24 14:14) NEEDS FOLLOW-UP Sulfa (Sulfonamide Antibiotics) Allergy (Unknown, Verified 07/19/24 14:14) Swelling neomycin Allergy (Verified 07/19/24 14:14) edeema, skin reaction lisinopril Adverse Reaction (Verified 07/19/24 14:14) cough Medications ?Medication ?Instructions ?Recorded ?Confirmed ?Type latanoprost 0.005 % eye drops 1 drp ophthalmic (eye) Q DAY 01/28/17 07/19/24 History blood sugar diagnostic (FreeStyle #90 ea 06/13/2105/10 Rx Precision Leonardo Strips) lancets (Accu-Chek Fastclix Lancet #102 ea 09/12/21 Rx Drum) multivitamin 1 tab PO DAILY 07/07/2205/10 History cholecalciferol (vitamin D3) 1,250 1,250 mcg PO QWEEK #20 caps 01/01/23 07/19/24 Rx mcg (50,000 unit) capsule lansoprazole 15 mg capsule,delayed 15 mg PO QHS 30 day s #30 caps 07/29/23 07/19/24 History release glimepiride 4 mg tablet 4 mg PO BID 3 months #180 ta bs 10/05/23 07/19/24 Rx brimonidine 0.2 % eye drops 1 drp ophthalmic (eye) BID 01/05/24 07/19/24 History atorvastatin 10 mg tablet See Rx Instructions .Route 1 03/23/23 07/19/24 Rx .COMPLEX #90 tabs losartan 25 mg tablet 12.5 mg (1/2 x 25 mg) PO QDA Y #90 03/09/24 07/19/24 Rx tabs FreeStyle Wilfredo 3 Plus Sensor #6 ea 04/05/24 07/19/24 Rx (blood-glucose sensor) blood-glucose,product support technician,cont #1 ea 04/05/24 07/19/24 Rx (FreeStyle Wilfredo 3 Trimble) Tresiba FlexTouch U-100 100 5 unit (0.05 mL) subcut QD AY #15 mL 05/03/24 07/19/24 Rx unit/mL (3 mL) subcutaneous pen (insulin degludec) metformin 500 mg tablet 500 mg PO BID #180 tabs 04/1607/19/24 Rx pen needle, diabetic 32 gauge x #50 ea 06/08/24 Rx /32 (BD Ultra-Fine Naty Pen Needle) Novolog FlexPen U-100 Insulin 100 10 unit (0.1 mL) sub cut TID #15 mL 07/04/24 Rx unit/mL (3 mL) subcutaneous (insulin aspart U-100) Ejection fraction %: 65 Have you fallen in the past year?: No PFSH Medical History Diabetes Thyroid nodule Neck mass Back pain GERD (gastroesophageal reflux disease) Lumbar radiculopathy Constipation Cough Intermittent palpitations Thyroid disease Palpitation Pain in left araya Low back pain Left hip pain Osteopenia Hyperlipidemia Health care maintenance Carotid artery disease OSCAR (acute kidney injury) Abdominal pain Bilateral impacted cerumen Flu vaccine need Vitamin D deficiency Breast cancer screening GERD (gastroesophageal reflux disease) Essential (primary) hypertension partial sigmoidectomy Thyroid disease Pneumonia Osteoarthritis Hearing problem Glaucoma Back problem Arthritis Seasonal allergies Surgical History S/P laparoscopic fundoplication Normal colonoscopy History of right breast biopsy Family History Mother Breast cancer Diabetes Father Thyroid disorder Cancer Grandfather CVA (cerebral vascular accident) Social History Smoking Status: Never smoker second hand exposure: No alcohol intake: current alcohol intake frequency: holidays/special occasions only substance use type: does not use caffeine: Yes Type: coffee Number of servings: 1 what type of physical activity do you participate in: none ROS Const Const: Negative for fatigue, weakness, headache(s) or weight gain ENT ENT: Negative for headache(s), dizziness, Nosebleed/epistaxis or balance problems Cardio Chest Pain: No Palpitations: No Edema: None Muscle aches with walking: None Resp Respiratory: Negative for SOB with activity, SOB at rest or SOB orthopneaundefinedSOB lying down GI GI: Positive for heartburn (with dietary choices); Negative nausea or vomiting Musc Musc: Negative for muscle aches/ myalgia, muscle weakness, joint pain or balanceproblems Neuro Neuro: Negative for dizziness, lightheadedness, near syncope, syncope, headache(s) or weakness Endo Endo: Negative for fatigue Cardiology Exam Const Appearance: comfortable and no acute distress Nutritional Appearance: well nourished Neck Neck: no JVD Carotids: Negative bruit Chest Auscultation: Bilateral: Clear to Auscultation Cardio Rate: regular rate Rhythm: regular rhythm Heart sounds: S1 normal and S2 normal Neuro General: patient alert, patient awake and patient oriented x3 Extremities Lower Extremity Edema: None: Bilateral Supplemental Info Supplemental Information ECHOCARDIOGRAM 08/2023 Normal LV size. Left ventricular systolic function is normal. The left ventricular ejection fraction is 65 %. There is mild mitral annular calcification. Stage 1 diastolic dysfunction. Pharmacologic Myocardial Perfusion Stress Test 08/19/2023: Conclusion: Normal pharmacologic myocardial perfusion stress test. Preserved ejection fraction. 30 DAY EVENT MONITOR 08/26/2017-09/24/2017: AVG HR was 71 bpm MAX HR was 120 bpm MIN HR was 50 bpm NO ATRIAL FIBRILLATION NOTED. Carotid Duplex US 08/19/2023: Interpretation Summary Moderate (50-69%) stenosis right extracranial internal carotid. Mild (<50%) stenosis left extracranial internal carotid. Patent and antegrade vertebrals bilaterally. CAROTID DUPLEX 06/26/2021: Interpretation Summary Smooth plaque at the proximal right internal carotid artery with less than 50% stenosis Less than 50% stenosis right external carotid artery Minimal irregular calcific plaque with shadowing at the proximal left internal carotid artery with less than 50% stenosis Less than 50% stenosis left external carotid artery Irregular calcific plaque noted in the left carotid bulb Patent and antegrade vertebral arteries bilaterally Thyroid US 11/24/2023: IMPRESSION: Bilateral colloid cysts. Dominant 2 cm right thyroid nodule with TR score of 2. No specific follow-up indicated. Assessment and Plan Assessment and Plan (1) Carotid artery disease: Status: Chronic Plan: Repeat carotid Doppler study. Counseled to start taking enteric-coated aspirin 81 mg daily. (2) Diastolic dysfunction: Status: Chronic Plan: Stage I diastolic dysfunction. For clinical follow-up. Risk factor modification. (3) Essential (primary) hypertension: Status: Chronic Plan: On losartan. (4) Diabetes mellitus type 2, controlled, without complications: Status: Chronic Qualifiers: Diabetes mellitus penitentiary insulin use: without penitentiary use Qualified Code(s): E11.9 - Type 2 diabetes mellitus without complications Plan: As per PCP. (5) Hyperlipidemia: Status: Chronic Qualifiers: Hyperlipidemia type: unspecified Qualified Code(s): E78.5 - Hyperlipidemia, unspecified Plan: On atorvastatin. Continue to manage as per primary care physician. Plan Details Follow Up: 12 Months Coding Level of Care Code Off vis,est,level 4 Diagnoses Carotid artery disease I77.9 Diastolic dysfunction I51.89 Essential (primary) hypertension I10 Controlled type 2 diabetes mellitus without complication, without long-term current use of insulin E11.9 Diabetes mellitus remote computer terminal operator insulin use: without penitentiary use Hyperlipidemia, unspecified hyperlipidemia type E78.5 Hyperlipidemia type: unspecified Coding Level of Care Code Off vis,est,level 4 Diagnoses Carotid artery disease I77.9 Diastolic dysfunction I51.89 Essential (primary) hypertension I10 Controlled type 2 diabetes mellitus without complication, without long-term current use of insulin E11.9 Diabetes mellitus remote computer terminal operator insulin use: without remote computer terminal operator use Hyperlipidemia, unspecified hyperlipidemia type E78.5 Hyperlipidemia type: unspecified Clinical Quality Measures Falls Risk Screening/Assistive Devices Have you fallen in the past year?: No Cardiac Ejection fraction %: 65 07/19/24 1433 <Electronically signed by Deanna Fregoso MD> Date _ Deanna Fregoso MD Cosigner Signature: Date (if applicable) CC: Dr. Lena Thorne MD ~ [facility] [employer] Work Phone: 1(838) 945-251204-30-2025 Evaluation note* Diagnosis Onset Date Resolution Status Admit Date Diabetes chronic June 15 1:58pm Essential (primary) hypertension chr onic June 15, 2024 1:58pm GERD (gastroesophageal reflu x disease) chronic June 15, 2024 1:58pm Hyperlipidemia chronic May 1:58pm Carotid artery disease chronic Ju ne 2024 1:50pm Diastolic dysfunction chronic Jul 1:50pm Essential (primary) hypertension chr onic July 19, 2024 1:50pm Hyperlipidemia chronic July 19, 2024 1:50pm Diabetes mellitus type 2, controlled, without complications deleted July 19, 2024 1 :50pm Diabetes chronic August 04 2:18pm Essential (primary) hypertension chr onic August 04, 2024 2:18pm Hyperlipidemia chronic August 04, 2024 2:18pm Thyroid nodule chronic August 04, 2024 2:18pm [employer] Work Phone: 1(305) 617-664102-18-2025 Evaluation note* Diagnosis Onset Date Resolution Status Admit Date Diabetes chronic April 05, 2024 2:20pm Essential (primary) hypertension chronic April 05, 2:20pm Hyperlipidemia chronic March 192024 2:20pm Diabetes chronic June 15 1:58pm Essential (primary) hypertension chronic June 15, 2024 1:58pm GERD (gastroesophageal reflu x disease) chronic June 15, 2024 1:58pm Hyperlipidemia chronic May 1:58pm Carotid artery disease chronic Ju ne 2024 1:50pm Diabetes mellitus type 2, controlled, without complications chronic July 19, 2024 1 :50pm Diastolic dysfunction chronic Jul 1:50pm Essential (primary) hypertension chronic July 19, 2024 1 :50pm Hyperlipidemia chronic July 19, 2024 1:50pm [employer] Work Phone: 1(511) 316-845601-03-2025 Telephone encounter Note* Telephone Encounter - Татьяна Muñiz PA-C - 02/19/2024 3:03 PM EST Sounds good, thanks. [facility] [id number] Miscellaneous Notes* Telephone Encounter - Татьяна Muñiz PA-C - 02/19/2024 3:03 PM EST Sounds good, thanks. * Telephone Encounter - Niesha Garcia - 02/19/2024 2:55 PM EST Symptoms present for about a week and a half. -she stated she has been chewing well and hydrating good. -reports no acid reflux or heartburn. Stopped taking pills to see if the heartburn would return andit didn't. She just had the fluid in her throat that keeps coming up after eating and drinking. Shehas never had that symptom before. -she states she has Prevacid and cannot take omeprazole because of swallowing it. States she can start taking that for a few weeks to see if it helps * Telephone Encounter - Татьяна Muñiz PA-C - 02/19/2024 2:40 PM EST How long has this been going on? Any heartburn/reflux or other symptoms such as nausea? At this time, I would recommend returning to antacid therapy such as omeprazole for 4 weeks. I can write a prescription if needed. If no symptom improvement after that time, we can proceed with further evaluation with UGI to re-evaluate her surgical site. She may have some intermittent inflammationthat may be contributing to her current symptoms that should resolve with medical therapy. * Telephone Encounter - Niesha Garcia - 02/19/2024 2:27 PM EST LAPAROSCOPIC HIATAL HERNIA REPAIR, WITH MESH, WITH POSTERIOR FUNDOPLICATION AND EGD -on 09/09/23 w/ CALEB Pt stated she is having trouble swallowing and having food coming up into her esophagus. -has returned to regular diet since sx. There isnt a specific food that does it. Foods that were once okay post-op are now not working. -some nausea and no vomiting. Feels pressure on chest area and feels like she needs to burp but cannot. -not taking any medication currently * Telephone Encounter - Stephania Mota - 02/19/2024 1:11 PM EST Patient left Voicemail stating that she needs a return call to schedule an appt as she is having some problems since her Lap HH Repair with Dr Kruse on 09/09/2023. Patient did not state exactly what issues she was having. May need to return call and get the specifics. DP documented in this [facility]01-03-2025 Telephone encounter Note* Telephone Encounter - Niesha Garcia - 02/19/2024 2:55 PM EST Symptoms present for about a week and a half. -she stated she has been chewing well and hydrating good. -reports no acid reflux or heartburn. Stopped taking pills to see if the heartburn would return andit didn't. She just had the fluid in her throat that keeps coming up after eating and drinking. Shehas never had that symptom before. -she states she has Prevacid and cannot take omeprazole because of swallowing it. States she can start taking that for a few weeks to see if it helps [employer] [facility] [id number] Telephone encounter Note* Telephone Encounter - Таьтяна Muñiz PA-C - 02/19/2024 2:40 PM EST How long has this been going on? Any heartburn/reflux or other symptoms such as nausea? At this time, I would recommend returning to antacid therapy such as omeprazole for 4 weeks. I can write a prescription if needed. If no symptom improvement after that time, we can proceed with further evaluation with UGI to re-evaluate her surgical site. She may have some intermittent inflammationthat may be contributing to her current symptoms that should resolve with medical therapy. [facility] [id number] Telephone encounter Note* Telephone Encounter - Niesha Garcia - 02/19/2024 2:27 PM EST LAPAROSCOPIC HIATAL HERNIA REPAIR, WITH MESH, WITH POSTERIOR FUNDOPLICATION AND EGD -on 09/09/23 w/ CALEB Pt stated she is having trouble swallowing and having food coming up into her esophagus. -has returned to regular diet since sx. There isnt a specific food that does it. Foods that were once okay post-op are now not working. -some nausea and no vomiting. Feels pressure on chest area and feels like she needs to burp but cannot. -not taking any medication currently [facility] [id number] Telephone encounter Note* Telephone Encounter - Stephania Mota - 02/19/2024 1:11 PM EST Patient left Voicemail stating that she needs a return call to schedule an appt as she is having some problems since her Lap HH Repair with Dr Kruse on 09/09/2023. Patient did not state exactly what issues she was having. May need to return call and get the specifics. [facility] [employer] [id number] History of Present illness Narrative* Julian Kruse MD - 10/30/2023 11:30 AM EDT [facility] - Surgery Patient Name: Sheyla Ramirez Date: 10/30/23 S: Sheyla Ramirez follows up for a post operative visit after undergoing a laparoscopic hiatal hernia repair with posterior fundoplication on 09/09/23. She is doing well, and has reduced her PPI therapy from 3 times daily to once daily with great heartburn control and no reflux. She has minimal dysphagia if any however still limiting her diet. Bowel function is otherwise unremarkable. Allergies Allergen Reactions Grass Pollen(K-O-R-T-Swt Todd) Unknown Molds & Smuts Unknown Lisinopril Cough Neomycin Hives Penicillins Hives Seasonal Runny nose Sulfa Antibiotics Current Outpatient Medications Medication Sig Dispense Refill atorvastatin (Lipitor) 10 MG tablet Take 10 mg by mouth daily. brimonidine (AlphaGAN) 0.2 % ophthalmic solution 1 drop 2 times daily. cholecalciferol (Vitamin D-3) 1.25 MG (06633 UT) capsule Take by mouth 1 (one) time per week. glimepiride (Amaryl) 4 MG tablet Take 1 tablet (4 mg) by mouth in the morning and 1 tablet (4 mg) in the evening. Take with meals. lansoprazole (Prevacid) [address] capsule Take by mouth every morning (before breakfast). Do not crush or chew. latanoprost (Xalatan) 0.005 % ophthalmic solution INSTILL 1 DROP INTO BOTH EYES ONCE A DAY losartan (Cozaar) 25 MG tablet Take by mouth. metFORMIN (Glucophage) 500 MG tablet Take 1 tablet (500 mg) by mouth in the morning and 1 tablet (500 mg) in the evening. Take with meals. 60 tablet 1 MULTIPLE VITAMIN PO Take by mouth. nystatin (Mycostatin) 546277 UNIT/ML suspension Swish and spit 5 mL (500,000 Units) 3 times daily. Swish and spit 5 mLs by mouth three times daily for 10 days. 150 mL 1 polyethylene glycol, PEG, 3350 (Miralax) 17 g packet Take 17 g by mouth daily. No current facility-administered medications for this visit. Past Medical History: Diagnosis Date Diabetes mellitus, type 2 (HCC) Gastro-esophageal reflux disease without esophagitis Glaucoma Hypercholesterolemia Other constipation Other intestinal obstruction unspecified as to partial versus complete obstruction (HCC) Other specified symptoms and signs involving the digestive system and abdomen Personal history of colonic polyps O: BP 122/60 (BP Location: Right arm, Patient Position: Sitting, BP Cuff Size: Large adult) Pulse77 Temp 36.1 C (97 F) Ht 5' 7 (1.702 m) Wt 145 lb (65.8 kg) BMI 22.71 kg/m Physical Exam: The wounds are healing well. There is no evidence of infection, seroma, erythema or hernia. Assessment/Plan Sheyla was seen today for post-op. Diagnoses and all orders for this visit: Encounter for postoperative care (Primary) Hiatal hernia GERD without esophagitis 77-year-old female status post laparoscopic hiatal hernia repair with mesh and posterior fundoplication on 09/09/2023. She is doing well, has improved symptoms with daily PPI therapy and no GERD. She is tolerating her diet. Have advanced and liberalized her diet and we discussed weaning her medication therapy after she gets to a regular diet. She may advance diet as tolerated. She may increase their activity to a normal level. Follow-up as needed. The patient was seen and examined independently and relevant data reviewed by myself. A full chart review was performed. Patient Care Team: Lena Thorne as PCP - General (Internal Medicine) Chandana Batista MD (Gastroenterology) Autumn Worley RN as Registered Nurse (Hospital Insurance Representative Manager) Vitor Camarillo (Cardiology) documented in this [facility]08-16-2024 Telephone encounter Note* Telephone Encounter - Whitney Ball PA-C - 10/02/2023 10:56 AM EDT Spoke with patient and she has been advancing diet. Has tried hard boiled eggs, ground beef, shredded pork. Feels like food is slow to pass but is NOT getting stuck. Having pressure under abdomen with eating bigger meals. Discussed eating small portions but doing this more frequently throughout day. Also instructed her to have water to drink with each small bite. Will continue slowly advancing diet and will call with any further concerns. [id number] Miscellaneous Notes* Telephone Encounter - Whitney Ball PA-C - 10/02/2023 10:56 AM EDT Spoke with patient and she has been advancing diet. Has tried hard boiled eggs, ground beef, shredded pork. Feels like food is slow to pass but is NOT getting stuck. Having pressure under abdomen with eating bigger meals. Discussed eating small portions but doing this more frequently throughout day. Also instructed her to have water to drink with each small bite. Will continue slowly advancing diet and will call with any further concerns. * Telephone Encounter - Whitney Ball PA-C - 10/02/2023 10:55 AM EDT ----- Message from Julian Kruse MD sent at 09/25/2023 5:24 PM EDT ----- Please call her at the end of next week to make sure she is advancing her diet, she is choosing notto eat because she wants to keep her sugars under control. Hopefully she will advance her diet as we discussed today. documented in this [facility]08-16-2024 Telephone encounter Note* Telephone Encounter - Whitney Ball PA-C - 10/02/2023 10:55 AM EDT ----- Message from Julian Kruse MD sent at 09/25/2023 5:24 PM EDT ----- Please call her at the end of next week to make sure she is advancing her diet, she is choosing notto eat because she wants to keep her sugars under control. Hopefully she will advance her diet as we discussed today. [facility] [id number] History of Present illness Narrative* Autumn Worley RN - 09/28/2023 9:10 AM EDT Images from the original note were not included. Chart reviewed. 30-day [facility] Transition of Care post-hospital discharge on 08/25/23 Dx: Abdominal pain. Patient had elective Bariatric surgery 09/09/23 notes copied below. Patient did not required readmission within the 30-day transition of care period. 30-day program complete case closed. Discharge Summary Wilber Coto MD (Resident) General Surgery Cosigned by: Julian Kruse MD at 09/10/2023 3:47 PM Discharge Summary Sheyla Ramirez : 1945 ADMIT DATE: 09/09/2023 DISCHARGE DATE: 09/10/23 ATTENDING PHYSICIAN: Julian Kruse MD VISIT STATUS: Admission CODE STATUS: Full Code DISCHARGE DIAGNOSES: Principal Problem: Hiatal hernia Active Problems: Gastroesophageal reflux disease without esophagitis BMI Classification: Normal Weight (BMI 18.5-24.9) HOSPITAL COURSE: Sheyla Ramirez is a 77 y.o. female who presented to [facility] on 09/09/2023 for elective bariatric surgical procedure. This patient underwent a HH repair on the day of admission. An UGI was obtained POD #1 shira clear liquid diet was subsequently started. The patient was prepared for discharge POD #1 At the time of discharge patient's vital signs were within normal limits. Patient was voiding spontaneously, tolerating a diet, ambulating independently and having bowel function. Patient's pain was controlled with PO pain meds. Pt was discharged with instructions as follows. CONSULTANTS: none SIGNIFICANT DIAGNOSTIC STUDIES: Upper GI contrast study showing no extravasation or obstruction DISCHARGE MEDICATIONS: Medication List START taking these medications ondansetron 4 MG tablet Commonly known as: Zofran Take 1 tablet (4 mg) by mouth every 8 hours as needed for nausea or vomiting for up to 7 days. oxyCODONE 5 MG immediate release tablet Commonly known as: Roxicodone Take 1 tablet (5 mg) by mouth every 6 hours as needed for severe pain (7-10) for up to 5 days. CONTINUE taking these medications atorvastatin 10 MG tablet Commonly known as: Lipitor brimonidine 0.2 % ophthalmic solution Commonly known as: AlphaGAN cholecalciferol 1.25 MG (34122 UT) capsule Commonly known as: Vitamin D-3 glimepiride 4 MG tablet Commonly known as: Amaryl lansoprazole [address] capsule Commonly known as: Prevacid latanoprost 0.005 % ophthalmic solution Commonly known as: Xalatan losartan 25 MG tablet Commonly known as: Cozaar metFORMIN 500 MG tablet Commonly known as: Glucophage Take 1 tablet (500 mg) by mouth in the morning and 1 tablet (500 mg) in the evening. Take with meals. MULTIPLE VITAMIN PO polyethylene glycol (PEG) 3350 17 g packet Commonly known as: Miralax Take 17 g by mouth daily. Where to Get Your Medications These medications were sent to [facility] [address] [place] [address] Hours: Thursday to Thursday 10 am to 6 pm ondansetron 4 MG tablet oxyCODONE 5 MG immediate release tablet DIET: Bariatric Diet Protocol with Clears, instruction for continued diet included in discharge instructions. ACTIVITY: No driving while on narcotic pain medication. No heavy lifting. No strenuous activity. Instructions to proceed will be provided during outpatient follow up. WOUND CARE: keep wound clean and dry DISPOSITION: Home FACILITY/HOME CARE AGENCY NAME: N/A Follow up with: Julian Kruse MD in 1-2 weeks PCP: LENA THORNE in 1-2 weeks SIGNED: Wilber Coto MD 09/10/23 1:05 PM documented in this [facility]08-09-2024 History of Present illness Narrative* Julian Kruse MD - 09/25/2023 11:15 AM EDT [facility] - Surgery Patient Name: Sheyla Ramirez Date: 09/25/23 S: Sheyla Ramirez follows up for a post operative visit after undergoing a laparoscopic hiatal hernia repair with posterior fundoplication on 09/09/23. She is doing well without any major postoperative complications. Her pain control is well controlled and she is not asking for narcotic refills. Her bowel function has returned to normal without constipation or diarrhea. Her appetite is returning to normal and she does not report any dysphagia, nausea or vomiting. Allergies Allergen Reactions Grass Pollen(K-O-R-T-Swt Todd) Unknown Molds & Smuts Unknown Lisinopril Cough Neomycin Hives Penicillins Hives Seasonal Runny nose Sulfa Antibiotics Current Outpatient Medications Medication Sig Dispense Refill atorvastatin (Lipitor) 10 MG tablet Take 10 mg by mouth daily. brimonidine (AlphaGAN) 0.2 % ophthalmic solution 1 drop 2 times daily. cholecalciferol (Vitamin D-3) 1.25 MG (39358 UT) capsule Take by mouth 1 (one) time per week. glimepiride (Amaryl) 4 MG tablet Take 1 tablet (4 mg) by mouth in the morning and 1 tablet (4 mg) in the evening. Take with meals. lansoprazole (Prevacid) [address] capsule Take by mouth every morning (before breakfast). Do not crush or chew. latanoprost (Xalatan) 0.005 % ophthalmic solution INSTILL 1 DROP INTO BOTH EYES ONCE A DAY losartan (Cozaar) 25 MG tablet Take by mouth. metFORMIN (Glucophage) 500 MG tablet Take 1 tablet (500 mg) by mouth in the morning and 1 tablet (500 mg) in the evening. Take with meals. 60 tablet 1 MULTIPLE VITAMIN PO Take by mouth. polyethylene glycol, PEG, 3350 (Miralax) 17 g packet Take 17 g by mouth daily. nystatin (Mycostatin) 126232 UNIT/ML suspension Swish and spit 5 mL (500,000 Units) 3 times daily. Swish and spit 5 mLs by mouth three times daily for 10 days. 150 mL 1 No current facility-administered medications for this visit. Past Medical History: Diagnosis Date Diabetes mellitus, type 2 (HCC) Gastro-esophageal reflux disease without esophagitis Glaucoma Hypercholesterolemia Other constipation Other intestinal obstruction unspecified as to partial versus complete obstruction (HCC) Other specified symptoms and signs involving the digestive system and abdomen Personal history of colonic polyps O: BP 132/66 (BP Location: Left arm, Patient Position: Sitting, BP Cuff Size: Large adult) Pulse 80 Temp 36.2 C (97.2 F) Ht 5' 7 (1.702 m) Wt 148 lb (67.1 kg) BMI 23.18 kg/m Physical Exam: The wounds are healing well. There is no evidence of infection, seroma, erythema or hernia. Assessment/Plan Sheyla was seen today for post-op. Diagnoses and all orders for this visit: Encounter for postoperative care (Primary) Hiatal hernia GERD without esophagitis Other orders - nystatin (Mycostatin) 944664 UNIT/ML suspension; Swish and spit 5 mL (500,000 Units) 3 times daily. Swish and spit 5 mLs by mouth three times daily for 10 days. 77-year-old female status post laparoscopic hiatal hernia repair with mesh on 09/09/2023. She is doing well, has mild dysphagia however overall is making good progress. She has been limiting her diet primarily due to her diabetes and not wanting to eat carbohydrates so that she can keep her sugars under control. She does have some oral thrush and a prescription for nystatin was called in. I have advanced her diet, I have asked her to continue to eat soft textured foods and again reviewed her dietary advancement. Overall she is doing well. She may advance diet as tolerated. She may increase their activity to a normal level yet refrain from lifting greater than 15# for one month aftersurgery. Follow-up 6 to 8 weeks. The patient was seen and examined independently and relevant data reviewed by myself. A full chart review was performed. Patient Care Team: Lena Thorne as PCP - General (Internal Medicine) Chandana Batista MD (Gastroenterology) Autumn Worley RN as Registered Nurse (Hospital Insurance Representative Manager) Vitor Camarillo (Cardiology) documented in this [facility]07-25-2024 Plan of care note* Care Plan - Julian Schmidt RN - 09/10/2023 1:43 PM EDT The patient is The patient's goals for the shift include The clinical goals for the shift include Over the shift, the patient did not make progress toward the following goals. Barriers to progression include . Recommendations to address these barriers include . [id number] Miscellaneous Notes* Care Plan - Julian Schmidt RN - 09/10/2023 1:43 PM EDT The patient is The patient's goals for the shift include The clinical goals for the shift include Over the shift, the patient did not make progress toward the following goals. Barriers to progression include . Recommendations to address these barriers include . * Care Plan - Julian Schmidt RN - 09/10/2023 1:19 PM EDT The patient is The patient's goals for the shift include The clinical goals for the shift include Over the shift, the patient did not make progress toward the following goals. Barriers to progression include . Recommendations to address these barriers include . * Care Coordination - Ania Box RN - 09/10/2023 1:13 PM EDT Care Managment Initial Assessment Date: 09/10/2023 Patient Name: Sheyla Ramirez : 1945 Patient Information Source of Information: Patient Cognition/Language: WFL - Within Functional Limits Permission given to speak with patient community service representative/caregiver as indicated: Confirmation of Payer with patient/family: Yes Payer Name: Medicare [place]: No Confirmation of Primary Care Physician: Confirmed PCP Name: Lena Thorne Seen in last 2 years?: Yes Primary Caregiver: Self If assistance needed, confirmed caregiver ready, willing and able to care for patient at discharge:Yes Confirmed with: Living Arrangements Current Residence: House Number of Floors 1 Number of Entry Steps: 2 Bed/Bath Levels: Both first floor Facility: Facility Name: Plan to Return: Lives with: Alone Support Systems: Family members, Friends/neighbors Activities of Daily Living Ambulation: Independent Bathing/Dressing: Independent Elimination/Continence/Toileting: Independent Feeding: Independent Who Assists with Activities of Daily Living: Instrumental Activities of Daily Living Prescription Coverage: Yes [facility] [place] Medication Management: Independent Transportation/Shopping: Independent Transportation Mode: Car Needs Assistance with Transportation at Discharge: No (sister in law will transport) Meal Preparation: Independent Laundry/Cleaning: Independent Finances/Bill Paying: Independent Communication: Independent Types of Care Services/Equipment Utilized Care Services: Dialysis Type: Durable Medical Equipment: DME Provider: Donna Patient's Goal/Discharge Plan Patient expects to be discharged to: home with sister in law Discharge Planning Actions: Continue to follow Patient's Choice Rights and [employer] and Collaborative Relationships Disclosed as Indicated for Post-Acute Care: Interdisciplinary Team Engagement: Social Work Referral for: Additional Information: 77 yo female assigned to post procedure recovery status for surgery on 09/09/23: Hiatal hernia repair with mesh, posterior fundoplication and egd. Pt was advanced to FLD after upper gi this am. Met with pt at bedside; explained role of tcc. Pt lives alone. She is independent adls and does not use any dme. Pt states that her sister in law will be staying with her for a few weeks. She denies any needs from tcc. Ania Box RN * Perioperative Nursing Note - Whitney Phelps RN - 09/09/2023 10:43 AM EDT Updated family * Pre-Procedure Note - Nelda Victor RN - 09/09/2023 7:24 AM EDT Preop blood glucose 155 * Op Note - Julian Kruse MD - 09/09/2023 6:59 AM EDT Images from the original note were not included. [facility] - Surgery [facility] Surgery Patient Name: Sheyla Ramirez OPERATIVE NOTE DATE OF PROCEDURE: 09/09/2023 SURGEON: Julian Kruse MD AEROPHYSICIST: Татьяна Muñiz PA-C PREOPERATIVE DIAGNOSIS: Symptomatic Hiatal Hernia Refractory GERD POSTOPERATIVE DIAGNOSIS: Symptomatic Hiatal Hernia Refractory GERD OPERATION: Laparoscopic Hiatal Hernia Repair with Mesh Laparoscopic Posterior Toupet Fundoplication Upper GI Endoscopy ANESTHESIA: General anesthesia ESTIMATED BLOOD LOSS: less than 50 COMPLICATIONS: None PREOPERATIVE MEDICATIONS: Ancef, Heparin HISTORY: The patient is a 77 y.o. year old female with history of above preop diagnosis. I explained the risk, benefits, expected outcome, and alternatives to the procedure. Patient understands and is in agreement to proceed with operation. PROCEDURE: The patient was brought to the operating room and placed in supine position. After initiation of general anesthesia by the Anesthesia Department, she was placed in split-leg lithotomy with his arms extended. Care was taken to pad the bony prominences. Her abdomen was shaved, prepped, and draped in a normal sterile fashion. A Veress needle was placed in the left upper quadrant. We insufflated without difficulty and exchanged this for a 12 mm trocar. A 5 mm was placed in the right upper quadrant,one inferiorly and lateral to the initial access port and one in the mid epigastrium, a 5 mm subxiphoid stab wound was created for retraction of the left lobe of the liver using the Klaus liver retractor. Upon evaluation of the diaphragm, there was a hiatal hernia noted, both anteriorly and posteriorly.Because of the abnormal visual inspection of the diaphragm the hiatal hernia was repaired. The phrenoesophageal ligament was divided using hook electrocautery exposing the left awa of the diaphragm.We continued our dissection along the anterior crural arch from left to right. The gastrohepatic ligament was incised using Bovie electrocautery, the peritoneum overlying the junction of the transversely passing fat pad at the base of the right awa was incised. We bluntly mobilized the esophagus, and reduced the GE junction into the abdomen by 5 cm. A Asif drain was used to provide appropriate retraction. The anterior and posterior vagus nerves were identified and 360 degree circumferentialcomplete mobilization was performed. The hernia sac was from the mediastinum and completely reduced. The hernia sac was completely dissected off the distal esophagus as well as the right and left parietal pleura. The hiatal hernia crural separation measured approximately 10 cm. Multiple sutures of 0 Ethibond were used to reapproximate the left and right awa around the 50-Syrian bougie reapproximating the posterior defect created by the right and left posterior crural columns. At this point, because of the defect, a piece of biologic mesh was selected. A piece of ACell Gentrix Hiatal was utilized, rehydrated according to hide shaker's recommendations and introduced into the abdomen. It was tacked to the diaphragm, using the the bougie as a guide using a 4.8mm B shapedtacker. The tunica propria was secured to the diaphragm and the basement membrane to the wrap. We then proceeded with a posterior toupet fundoplication. The fundus was marked using a 3-0 Vicryl suture and brought in a retroesophageal plane. We proceeded with a 270 wrap posteriorly using interrupted 2-0 silk sutures securing the wrap along the right awa, posteriorly as well as along the leftcrus. This was performed with the bougie in place, this was then removed for endoscopy. The bougie was removed. An upper GI endoscopy was performed. The flexible gastroscope was introduced through the patient's mouth, through the esophagus, through the stomach. The air was insufflated into the stomach and the scope retroflexed. The posterior fundoplication was intact, there was no evidence of a hiatal hernia and the wrap was otherwise normal. Normal postoperative configurations. The air was evacuated and the scope was withdrawn from the patient. She tolerated the procedure well, was extubated, sent to recovery in stable condition. The skin was closed using 4-0 Monocryl. There were no qualified residents available to facilitate the procedure, as a result Татьяна Muñiz PA-C was asked to serve as the ob gyn physician assistant for this procedure. documented in this [facility]07-25-2024 Plan of care note* Care Plan - Julian Schmidt RN - 09/10/2023 1:19 PM EDT The patient is The patient's goals for the shift include The clinical goals for the shift include Over the shift, the patient did not make progress toward the following goals. Barriers to progression include . Recommendations to address these barriers include . [facility] [id number] Note* Care Coordination - Ania Box RN - 09/10/2023 1:13 PM EDT Care Managment Initial Assessment Date: 09/10/2023 Patient Name: Sheyla Ramirez : 1945 Patient Information Source of Information: Patient Cognition/Language: WFL - Within Functional Limits Permission given to speak with patient community service representative/caregiver as indicated: Confirmation of Payer with patient/family: Yes Payer Name: Medicare : No Confirmation of Primary Care Physician: Confirmed PCP Name: Lena Thorne Seen in last 2 years?: Yes Primary Caregiver: Self If assistance needed, confirmed caregiver ready, willing and able to care for patient at discharge:Yes Confirmed with: Living Arrangements Current Residence: House Number of Floors 1 Number of Entry Steps: 2 Bed/Bath Levels: Both first floor Facility: Facility Name: Plan to Return: Lives with: Alone Support Systems: Family members, Friends/neighbors Activities of Daily Living Ambulation: Independent Bathing/Dressing: Independent Elimination/Continence/Toileting: Independent Feeding: Independent Who Assists with Activities of Daily Living: Instrumental Activities of Daily Living Prescription Coverage: Yes [facility] [place] Medication Management: Independent Transportation/Shopping: Independent Transportation Mode: Car Needs Assistance with Transportation at Discharge: No (sister in law will transport) Meal Preparation: Independent Laundry/Cleaning: Independent Finances/Bill Paying: Independent Communication: Independent Types of Care Services/Equipment Utilized Care Services: Dialysis Type: Durable Medical Equipment: DME Provider: None Patient's Goal/Discharge Plan Patient expects to be discharged to: home with sister in law Discharge Planning Actions: Continue to follow Patient's Choice Rights and [employer] and Collaborative Relationships Disclosed as Indicated for Post-Acute Care: Interdisciplinary Team Engagement: Social Work Referral for: Additional Information: 77 yo female assigned to post procedure recovery status for surgery on 09/09/23: Hiatal hernia repair with mesh, posterior fundoplication and egd. Pt was advanced to FLD after upper gi this am. Met with pt at bedside; explained role of tcc. Pt lives alone. She is independent adls and does not use any dme. Pt states that her sister in law will be staying with her for a few weeks. She denies any needs from tcc. Ania Box RN [facility] [id number] Note* Care Coordination - Ania Box RN - 09/10/2023 1:13 PM EDT Care Managment Initial Assessment Date: 09/10/2023 Patient Name: Sheyla Ramirez : 1945 Patient Information Source of Information: Patient Cognition/Language: WFL - Within Functional Limits Permission given to speak with patient community service representative/caregiver as indicated: Confirmation of Payer with patient/family: Yes Payer Name: Medicare : No Confirmation of Primary Care Physician: Confirmed PCP Name: Lena Thorne Seen in last 2 years?: Yes Primary Caregiver: Self If assistance needed, confirmed caregiver ready, willing and able to care for patient at discharge:Yes Confirmed with: Living Arrangements Current Residence: House Number of Floors 1 Number of Entry Steps: 2 Bed/Bath Levels: Both first floor Facility: Facility Name: Plan to Return: Lives with: Alone Support Systems: Family members, Friends/neighbors Activities of Daily Living Ambulation: Independent Bathing/Dressing: Independent Elimination/Continence/Toileting: Independent Feeding: Independent Who Assists with Activities of Daily Living: Instrumental Activities of Daily Living Prescription Coverage: Yes [facility] [place] Medication Management: Independent Transportation/Shopping: Independent Transportation Mode: Car Needs Assistance with Transportation at Discharge: No (sister in law will transport) Meal Preparation: Independent Laundry/Cleaning: Independent Finances/Bill Paying: Independent Communication: Independent Types of Care Services/Equipment Utilized Care Services: Dialysis Type: Durable Medical Equipment: DME Provider: None Patient's Goal/Discharge Plan Patient expects to be discharged to: home with sister in law Discharge Planning Actions: Continue to follow Patient's Choice Rights and [employer] and Collaborative Relationships Disclosed as Indicated for Post-Acute Care: Interdisciplinary Team Engagement: Social Work Referral for: Additional Information: 77 yo female assigned to post procedure recovery status for surgery on 09/09/23: Hiatal hernia repair with mesh, posterior fundoplication and egd. Pt was advanced to FLD after upper gi this am. Met with pt at bedside; explained role of tcc. Pt lives alone. She is independent adls and does not use any dme. Pt states that her sister in law will be staying with her for a few weeks. She denies any needs from tcc. Ania Box RN [facility] [id number] NoteDischarge Summary Sheyla Ramirez : 1945 ADMIT DATE: 09/09/2023 DISCHARGE DATE: 09/10/23 ATTENDING PHYSICIAN: Julian Kruse MD VISIT STATUS: Admission CODE STATUS: Full Code DISCHARGE DIAGNOSES: Principal Problem: Hiatal hernia Active Problems: Gastroesophageal reflux disease without esophagitis BMI Classification: Normal Weight (BMI 18.5-24.9) HOSPITAL COURSE: Sheyla Ramirez is a 77 y.o. female who presented to [facility] on 09/09/2023 for elective bariatric surgical procedure. This patient underwent a HH repair on the day of admission. An UGI was obtained POD #1 and a clear liquid diet was subsequently started. The patient was prepared for discharge POD #1 At the time of discharge patient's vital signs were within normal limits. Patient was voiding spontaneously, tolerating a diet, ambulating independently and having bowel function. Patient's pain was controlled with PO pain meds. Pt was discharged with instructions as follows. CONSULTANTS: none SIGNIFICANT DIAGNOSTIC STUDIES: Upper GI contrast study showing no extravasation or obstruction DISCHARGE MEDICATIONS: Medication List START taking these medications ondansetron 4 MG tablet Commonly known as: Zofran Take 1 tablet (4 mg) by mouth every 8 hours as needed for nausea or vomiting for up to 7 days. oxyCODONE 5 MG immediate release tablet Commonly known as: Roxicodone Take 1 tablet (5 mg) by mouth every 6 hours as needed for severe pain (7-10) for up to 5 days. CONTINUE taking these medications atorvastatin 10 MG tablet Commonly known as: Lipitor brimonidine 0.2 % ophthalmic solution Commonly known as: AlphaGAN cholecalciferol 1.25 MG (80493 UT) capsule Commonly known as: Vitamin D-3 glimepiride 4 MG tablet Commonly known as: Amaryl lansoprazole [address] capsule Commonly known as: Prevacid latanoprost 0.005 % ophthalmic solution Commonly known as: Xalatan losartan 25 MG tablet Commonly known as: Cozaar metFORMIN 500 MG tablet Commonly known as: Glucophage Take 1 tablet (500 mg) by mouth in the morning and 1 tablet (500 mg) in the evening. Take with meals. MULTIPLE VITAMIN PO polyethylene glycol (PEG) 3350 17 g packet Commonly known as: Miralax Take 17 g by mouth daily. Where to Get Your Medications These medications were sent to [facility] [address] [place] [address] Hours: Thursday to Thursday 10 am to 6 pm ondansetron 4 MG tablet oxyCODONE 5 MG immediate release tablet DIET: Bariatric Diet Protocol with Clears, instruction for continued diet included in discharge instructions. ACTIVITY: No driving while on narcotic pain medication. No heavy lifting. No strenuous activity. Instructions to proceed will be provided during outpatient follow up. WOUND CARE: keep wound clean and dry DISPOSITION: Home FACILITY/HOME CARE AGENCY NAME: N/A Follow up with: Julian Kruse MD in 1-2 weeks PCP: LENA THORNE in 1-2 weeks SIGNED: Wilber Coto MD 09/10/23 1:05 PM This note may have been dictated using [employer] Medical Practice Edition 2.6 and/or [employer] Voice Recognition Feature. The document was proofread; however, unrecognized voice recognition enterprise application developer errors may be present. [facility]07-25-2024 Hospital course Narrative* Wilber Coto MD - 09/10/2023 9:47 AM EDT Images from the original note were not included. Discharge Summary Sheyla Ramirez : 1945 ADMIT DATE: 09/09/2023 DISCHARGE DATE: 09/10/23 ATTENDING PHYSICIAN: Julian Kruse MD VISIT STATUS: Admission CODE STATUS: Full Code DISCHARGE DIAGNOSES: Principal Problem: Hiatal hernia Active Problems: Gastroesophageal reflux disease without esophagitis BMI Classification: Normal Weight (BMI 18.5-24.9) HOSPITAL COURSE: Sheyla Ramirez is a 77 y.o. female who presented to [facility] on 09/09/2023 for elective bariatric surgical procedure. This patient underwent a HH repair on the day of admission. An UGI was obtained POD #1 shira clear liquid diet was subsequently started. The patient was prepared for discharge POD #1 At the time of discharge patient's vital signs were within normal limits. Patient was voiding spontaneously, tolerating a diet, ambulating independently and having bowel function. Patient's pain was controlled with PO pain meds. Pt was discharged with instructions as follows. CONSULTANTS: none SIGNIFICANT DIAGNOSTIC STUDIES: Upper GI contrast study showing no extravasation or obstruction DISCHARGE MEDICATIONS: Medication List START taking these medications ondansetron 4 MG tablet Commonly known as: Zofran Take 1 tablet (4 mg) by mouth every 8 hours as needed for nausea or vomiting for up to 7 days. oxyCODONE 5 MG immediate release tablet Commonly known as: Roxicodone Take 1 tablet (5 mg) by mouth every 6 hours as needed for severe pain (7-10) for up to 5 days. CONTINUE taking these medications atorvastatin 10 MG tablet Commonly known as: Lipitor brimonidine 0.2 % ophthalmic solution Commonly known as: AlphaGAN cholecalciferol 1.25 MG (39525 UT) capsule Commonly known as: Vitamin D-3 glimepiride 4 MG tablet Commonly known as: Amaryl lansoprazole [address] capsule Commonly known as: Prevacid latanoprost 0.005 % ophthalmic solution Commonly known as: Xalatan losartan 25 MG tablet Commonly known as: Cozaar metFORMIN 500 MG tablet Commonly known as: Glucophage Take 1 tablet (500 mg) by mouth in the morning and 1 tablet (500 mg) in the evening. Take with meals. MULTIPLE VITAMIN PO polyethylene glycol (PEG) 3350 17 g packet Commonly known as: Miralax Take 17 g by mouth daily. Where to Get Your Medications These medications were sent to [facility] [address] [place] [id number] Hours: Thursday to Thursday 10 am to 6 pm ondansetron 4 MG tablet oxyCODONE 5 MG immediate release tablet DIET: Bariatric Diet Protocol with Clears, instruction for continued diet included in discharge instructions. ACTIVITY: No driving while on narcotic pain medication. No heavy lifting. No strenuous activity. Instructions to proceed will be provided during outpatient follow up. WOUND CARE: keep wound clean and dry DISPOSITION: Home FACILITY/HOME CARE AGENCY NAME: N/A Follow up with: Julian Kruse MD in 1-2 weeks PCP: LENA THORNE in 1-2 weeks SIGNED: Wilber Coto MD 09/10/23 1:05 PM This note may have been dictated using [employer] Medical Practice Edition 2.6 and/or [employer] Voice Recognition Feature. The document was proofread; however, unrecognized voice recognition enterprise application developer errors may be present. documented in this [facility]07-25-2024 History of Present illness Narrative* Lane Rey - 09/10/2023 8:10 AM EDT Preliminary negative for leak. * Kandy Smith MD - 09/10/2023 7:00 AM EDT Images from the original note were not included. [facility] Patient Name: Sheyla Ramirez Date: 09/10/23 MIS-General Surgery/Bariatric Progress Note Subjective: The patient is doing well, postoperative day #1 from HH repair. No nausea, vomiting, or adverse events overnight. Pain well controlled. Scheduled Meds:acetaminophen, 1,000 mg, IntraVENous, q8h enoxaparin, 40 mg, SubCUTAneous, q12h insulin lispro, 0-12 Units, SubCUTAneous, TID WC And insulin lispro, 0-12 Units, SubCUTAneous, Nightly pantoprazole, 40 mg, IntraVENous, Daily sodium chloride 0.9%, 10 mL, IntraVENous, 2 times per day Continuous Infusions:sodium chloride 0.45 % with KCl 20 mEq, 100 mL/hr, Last Rate: 100 mL/hr (09/10/23 0126) PRN Meds:PRN medications: albuterol, dextrose, dextrose, glucagon (rDNA), glucose, HYDROmorphone, naloxone, ondansetron ODT OR ondansetron, oxyCODONE, sodium chloride, sodium chloride 0.9% Allergies Allergen Reactions Grass Pollen(K-O-R-T-Swt Todd) Unknown Molds & Smuts Unknown Lisinopril Cough Neomycin Hives Penicillins Hives Seasonal Runny nose Sulfa Antibiotics Objective: Patient Vitals for the past 24 hrs: BP Temp Temp src Pulse Resp SpO2 09/10/23 0916 124/56 36.9 C (98.4 F) Temporal 61 20 100 % 09/10/23 0552 124/62 36.8 C (98.3 F) Temporal 59 18 97 % 09/10/23 0118 122/62 36.7 C (98 F) Temporal 76 18 97 % 09/09/23 2055 129/61 36.6 C (97.9 F) Temporal 67 18 98 % 09/09/23 1700 143/70 36.7 C (98.1 F) Temporal 64 12 99 % 09/09/23 1324 129/66 36.3 C (97.3 F) Temporal 58 16 96 % 09/09/23 1142 126/76 36.2 C (97.2 F) Temporal 69 14 95 % 09/09/23 1030 102/65 36.1 C (97 F) -- 55 (!) 11 96 % 09/09/23 1015 108/54 -- -- 64 12 94 % 09/09/23 1000 102/55 -- -- 66 14 94 % 09/09/23 0945 102/59 -- -- 66 18 95 % Average, Min, and Max for last 24 hours Vitals: TEMPERATURE: Temp Av.6 C (97.8 F) Min: 36.1 C (97 F) Max: 36.9 C (98.4 F) RESPIRATIONS RANGE: Resp Av.5 Min: 11 Max: 20 PULSE RANGE: Pulse Av.1 Min: 55 Max: 76 BLOOD PRESSURE RANGE: Systolic (24hrs), Av , Min:102 , Max:143 ; Diastolic (24hrs), Av, Min:54, Max:76 PULSE OXIMETRY RANGE: SpO2 Av.5 % Min: 94 % Max: 100 % I/O last 3 completed shifts: In: 1500 (21.5 mL/kg) [I.V.:1500 (21.5 mL/kg)] Out: 10 (0.1 mL/kg) [Blood:10] Weight: 69.9 kg CBC: Recent Labs 09/09/23 0918 09/10/23 0108 WBC -- 11.0* HGB 11.2* 11.7 HCT 35.2 35.5 PLT -- 202 BMP: Recent Labs 09/09/23 0918 09/10/23 0108 NA 135 136 K 4.0 4.2 CL 105 106 CO2 18* 24 BUN 20* 11 CREATININE 0.54 0.53 GLUCOSE 301* 177* Abdomen: The abdomen was soft and appropriately tender postoperative. Nondistended. Incisions c/d/I. Assessment/Plan: Postoperative day #1, repair GI/DVT prophylaxis, continue SQ Lovenox UGI this AM Increase activity Trial clear liquid diet if UGI wnl Pulmonary toilet Initiate home medications, and oral pain control medications Plan for discharge home this afternoon if progressing appropriately Kandy Smith MD PGY-3, General Surgery Pager# [phone] 09/10/2023 9:40 AM Associated attestation - Julian Kruse MD - 09/10/2023 11:11 AM EDT Images from the original note were not included. [facility] Patient Name: Sheyla Ramirez Date: 09/10/23 MIS-General Surgery/Bariatric Progress Note Subjective: The patient is doing well, postoperative day #1 from [facility]. No nausea, vomiting, or adverse eventsovernight. Scheduled Meds:acetaminophen, 1,000 mg, IntraVENous, q8h enoxaparin, 40 mg, SubCUTAneous, q12h insulin lispro, 0-12 Units, SubCUTAneous, TID WC And insulin lispro, 0-12 Units, SubCUTAneous, Nightly pantoprazole, 40 mg, IntraVENous, Daily sodium chloride 0.9%, 10 mL, IntraVENous, 2 times per day Continuous Infusions:sodium chloride 0.45 % with KCl 20 mEq, 100 mL/hr, Last Rate: 100 mL/hr (09/10/23 0126) PRN Meds:PRN medications: albuterol, dextrose, dextrose, glucagon (rDNA), glucose, HYDROmorphone, naloxone, ondansetron ODT OR ondansetron, oxyCODONE, sodium chloride, sodium chloride 0.9% Allergies Allergen Reactions Grass Pollen(K-O-R-T-Swt Todd) Unknown Molds & Smuts Unknown Lisinopril Cough Neomycin Hives Penicillins Hives Seasonal Runny nose Sulfa Antibiotics Objective: Patient Vitals for the past 24 hrs: BP Temp Temp src Pulse Resp SpO2 09/10/23 0916 124/56 36.9 C (98.4 F) Temporal 61 20 100 % 09/10/23 0552 124/62 36.8 C (98.3 F) Temporal 59 18 97 % 09/10/23 0118 122/62 36.7 C (98 F) Temporal 76 18 97 % 09/09/23 2055 129/61 36.6 C (97.9 F) Temporal 67 18 98 % 09/09/23 1700 143/70 36.7 C (98.1 F) Temporal 64 12 99 % 09/09/23 1324 129/66 36.3 C (97.3 F) Temporal 58 16 96 % 09/09/23 1142 126/76 36.2 C (97.2 F) Temporal 69 14 95 % Average, Min, and Max for last 24 hours Vitals: TEMPERATURE: Temp Av.6 C (97.9 F) Min: 36.2 C (97.2 F) Max: 36.9 C (98.4 F) RESPIRATIONS RANGE: Resp Av.6 Min: 12 Max: 20 PULSE RANGE: Pulse Av.9 Min: 58 Max: 76 BLOOD PRESSURE RANGE: Systolic (24hrs), Av , Min:122 , Max:143 ; Diastolic (24hrs), Av, Min:56, Max:76 PULSE OXIMETRY RANGE: SpO2 Av.4 % Min: 95 % Max: 100 % I/O last 3 completed shifts: In: 1500 (21.5 mL/kg) [I.V.:1500 (21.5 mL/kg)] Out: 10 (0.1 mL/kg) [Blood:10] Weight: 69.9 kg CBC: Recent Labs 09/09/23 0918 09/10/23 0108 WBC -- 11.0* HGB 11.2* 11.7 HCT 35.2 35.5 PLT -- 202 BMP: Recent Labs 09/09/23 0918 09/10/23 0108 NA 135 136 K 4.0 4.2 CL 105 106 CO2 18* 24 BUN 20* 11 CREATININE 0.54 0.53 GLUCOSE 301* 177* Abdomen: Bowel sounds were normal. The abdomen was soft and appropriately tender postoperative. Nondistended. Wounds are clean dry and intact. Assessment/Plan: Postoperative day #1, Lap HH GI/DVT prophylaxis, continue SQ Lovenox UGI normal, no signs of extravasation or leak Increase activity Trial clear liquid diet Pulmonary toilet Initiate home medications, and oral pain control medications Care was discussed with the resident on service. Julian Kruse MD 09/10/2023, 11:11 AM documented in this [facility]07-24-2024 Note* Perioperative Nursing Note - Whitney Phelps RN - 09/09/2023 10:43 AM EDT Updated family [facility]07-24-2024 Note* Perioperative Nursing Note - Whitney Phelps RN - 09/09/2023 10:43 AM EDT Updated family [facility]07-24-2024 NotePatient: Sheyla Ramirez Procedure Summary Date: 09/09/23 Room / Location: [address] Operating Room Anesthesia Start: 658 Anesthesia Stop: 906 Procedure: LAPAROSCOPIC HIATAL HERNIA REPAIR, WITH MESH, WITH POSTERIOR FUNDOPLICATION AND EGD (Abdomen) Diagnosis: Diaphragmatic hernia without obstruction or gangrene Acute bronchiolitis, unspecified Surgeons: Julina Kruse MD Responsible Provider: Kirk Mckay MD Anesthesia Type: general, regional ASA Status: 2 Anesthesia Type: general, regional Vitals Value Taken Time BP 126/76 09/09/23 0909 Temp 36.1 ?C (97 ?F) 09/09/23 0914 Pulse 75 09/09/23 0914 Resp 24 09/09/23 0914 SpO2 94 % 09/09/23 0913 Vitals shown include unfiled device data. Anesthesia Post Evaluation Patient location during evaluation: PACU Patient participation: complete - patient participated Level of consciousness: awake and alert Pain management: satisfactory to patient Airway patency: patent Dental Injury: no Cardiovascular status: acceptable, blood pressure returned to baseline and hemodynamically stable Respiratory status: acceptable and spontaneous ventilation Hydration status: euvolemic Nausea/Vomiting: controlled No notable events documented. Patient can be discharged once all PACU criteria has been met.[facility] [id number] NotePatient: Sheyla Ramirez Procedure Summary Date: 09/09/23 Room / Location: [address] Operating Room Anesthesia Start: 658 Anesthesia Stop: 906 Procedure: LAPAROSCOPIC HIATAL HERNIA REPAIR, WITH MESH, WITH POSTERIOR FUNDOPLICATION AND EGD (Abdomen) Diagnosis: Diaphragmatic hernia without obstruction or gangrene Acute bronchiolitis, unspecified Surgeons: Julian Kruse MD Responsible Provider: Kirk Mckay MD Anesthesia Type: general, regional ASA Status: 2 Anesthesia Type: general, regional Vitals Value Taken Time BP 126/76 09/09/23 0909 Temp 36.1 ?C (97 ?F) 09/09/23 0914 Pulse 75 09/09/23 0914 Resp 09/09/23 0914 SpO2 94 % 09/09/23 0913 Vitals shown include unfiled device data. Anesthesia Post Evaluation Patient location during evaluation: PACU Patient participation: complete - patient participated Level of consciousness: awake and alert Pain management: satisfactory to patient Multimodal analgesia pain management approach Airway patency: patent Two or more strategies used to mitigate risk of obstructive sleep apnea Cardiovascular status: acceptable and hemodynamically stable Respiratory status: acceptable Hydration status: acceptable No notable events documented. MIPS #430 PONV Patient received an inhalational anesthetic (4554F) Patient exhibits three or more risk factors for PONV (4556F) Patient received at leaset 2 prophylactic Rx PONV anti-emtic agents of different classes preop and/or intraop (G9775) MIPS # 424 Perioperative Temperature Management Anesthesia time was 60 minutes or longer (4255F) Anesthesai administered was General (inhalational or TIVA) or Neuraxial block (X0424) At least one body temperature greater than 95.8F/35.5C achieved within the 30 mins immediately prior to or the 15 minutes immediately following anesthesia end time (G9771) MIPS #477 Multimodal Pain Management Not emergent case Patient was administered multimodal pain management (two or more drugs and/or interventions excluding systemic opioids) in the periopeartive period occurring at some time between 6 hours prior to anesthesia start time until discharged from PACU (G2148) MIPS #404 Anesthesiology Smoking Abstinence The patient is not a current smoker (e.g. cigarette, cigar, pipe, e-cigarette/vaping/marijuana) If no stop here (XX404) I completed my handoff to the receiving clinician during which we: 1. Identified the patient 2. Identified the responsible provider 3. Reviewed the pertinent medical history 4. Discussed the surgical course 5. Reviewed intra-op anesthesia management and issues during anesthesia 6. Set expectations for post-procedure period 7. Allowed opportunity for questions and acknowledgement of understanding.[facility] [id number] NotePeripheral Block Time Out: 09/09/2023 7:04 AM Patient location during procedure: Procedural Start time: 09/09/2023 7:04 AM End time: 09/09/2023 7:07 AM Reason for block: at surgeon's request and post-op pain management Staffing Performed: ENGINE MAINTENANCE MECHANIC Resident/ENGINE MAINTENANCE MECHANIC: SANTI Chisholm CRNA Preanesthetic Checklist Completed: patient identified, IV checked, site marked, risks and benefits discussed, surgical consent, monitors and equipment checked, pre-op evaluation and timeout performed Region: Trun[place] Primary: TAP (Bupivacaine 0.375%/ Epi 1:200,000/ Dex 0.1mg/mL 40ml divided evenly bilateral) Secondary: Upper rectus (Bupivacaine 0.375%/ Epi 1:200,000/ Dex 0.1mg/mL 20ml divided evenly bilateral) Peripheral Block Patient position: supine Prep: ChloraPrep Patient monitoring: heart rate, [employer] advisor, continuous pulse ox and continuous capnometry O2: ETT/LMA Laterality: bilateral Injection technique: single-shot Guidance: ultrasound guided -image retained in chart, tip of the needle identified by ultraound during injection. Needle Needle: 21G X 110 mm Additional Notes 09/09/2023 7:04 AM Assessment Injection assessment: negative aspiration for heme, no paresthesia on injection and incremental injection Heart rate change: no Slow fractionated injection: yes Required Documentation: Relevant anatomy identified (Nerves, Vessels, Muscles), Negative for blood on aspiration, Local anesthetic injected incrementally with intermittent aspiration every 5 mL, Normal resistance with injection, No EKG changes noted, No symptoms of toxicity, Local anesthetic spread visualized around nerves or plane. and Local anesthetic injected without difficultyMedications pseMQRFCojcua-cykrzzxmhjc-mxiuudcrzfk (TAP) syringe - Injection 60 mL - 09/09/2023 7:04:00 [facility]07-24-2024 Note* Pre- Procedure Note - Nelda Victor RN - 09/09/2023 7:24 AM EDT Preop blood glucose [address] [id number] Note* Pre-Procedure Note - Nelda Victor RN - 09/09/2023 7:24 AM EDT Preop blood [id number] NoteAirway Date/Time: 09/09/2023 7:06 AM Urgency: scheduled Airway not difficult General Information and Staff Patient location during procedure: Procedural Resident/ENGINE MAINTENANCE MECHANIC: Asael Ya CRNA Performed: SRNA Indications and Patient Condition Indications for airway management: anesthesia Sedation level: Asleep and RSI Preoxygenated: no (pt refused) Patient position: sniffing Mask difficulty assessment: 0 - not attempted Final Airway Details Final airway type: endotracheal airway Successful airway: ETT Cuffed: yes Successful intubation technique: direct laryngoscopy Facilitating devices/methods: anterior pressure/BURP Endotracheal tube insertion site: oral Blade: Sharon Blade size: #3 ETT size (mm): 7.0 Cormack-Lehane Classification: grade IIb - view of arytenoids or posterior of glottis only Placement verified by: chest auscultation and capnometry Measured from: gums ETT to gums (cm): 22 Number of attempts at approach: 1 Number of other approaches attempted: [address] [place], [place] [id number] Note* Op Note - Julian Kruse MD - 09/09/2023 6:59 AM EDT Images from the original note were not included. [facility] Physicians Surgery Patient Name: Sheyla Ramirez OPERATIVE NOTE DATE OF PROCEDURE: 09/09/2023 SURGEON: Julian Kruse MD AEROPHYSICIST: Татьяна Muñiz PA-C PREOPERATIVE DIAGNOSIS: Symptomatic Hiatal Hernia Refractory GERD POSTOPERATIVE DIAGNOSIS: Symptomatic Hiatal Hernia Refractory GERD OPERATION: Laparoscopic Hiatal Hernia Repair with Mesh Laparoscopic Posterior Toupet Fundoplication Upper GI Endoscopy ANESTHESIA: General anesthesia ESTIMATED BLOOD LOSS: less than 50 COMPLICATIONS: None PREOPERATIVE MEDICATIONS: Ancef, Heparin HISTORY: The patient is a 77 y.o. year old female with history of above preop diagnosis. I explained the risk, benefits, expected outcome, and alternatives to the procedure. Patient understands and is in agreement to proceed with operation. PROCEDURE: The patient was brought to the operating room and placed in supine position. After initiation of general anesthesia by the Anesthesia Department, she was placed in split-leg lithotomy with his arms extended. Care was taken to pad the bony prominences. Her abdomen was shaved, prepped, and draped in a normal sterile fashion. A Veress needle was placed in the left upper quadrant. We insufflated without difficulty and exchanged this for a 12 mm trocar. A 5 mm was placed in the right upper quadrant,one inferiorly and lateral to the initial access port and one in the mid epigastrium, a 5 mm subxiphoid stab wound was created for retraction of the left lobe of the liver using the Klaus liver retractor. Upon evaluation of the diaphragm, there was a hiatal hernia noted, both anteriorly and posteriorly.Because of the abnormal visual inspection of the diaphragm the hiatal hernia was repaired. The phrenoesophageal ligament was divided using hook electrocautery exposing the left awa of the diaphragm.We continued our dissection along the anterior crural arch from left to right. The gastrohepatic ligament was incised using Bovie electrocautery, the peritoneum overlying the junction of the transversely passing fat pad at the base of the right awa was incised. We bluntly mobilized the esophagus, and reduced the GE junction into the abdomen by 5 cm. A Fullerton drain was used to provide appropriate retraction. The anterior and posterior vagus nerves were identified and 360 degree circumferentialcomplete mobilization was performed. The hernia sac was from the mediastinum and completely reduced. The hernia sac was completely dissected off the distal esophagus as well as the right and left parietal pleura. The hiatal hernia crural separation measured approximately 10 cm. Multiple sutures of 0 Ethibond were used to reapproximate the left and right awa around the 50-Syrian bougie reapproximating the posterior defect created by the right and left posterior crural columns. At this point, because of the defect, a piece of biologic mesh was selected. A piece of ACell Gentrix Hiatal was utilized, rehydrated according to hide shaker's recommendations and introduced into the abdomen. It was tacked to the diaphragm, using the the bougie as a guide using a 4.8mm B shapedtacker. The tunica propria was secured to the diaphragm and the basement membrane to the wrap. We then proceeded with a posterior toupet fundoplication. The fundus was marked using a 3-0 Vicryl suture and brought in a retroesophageal plane. We proceeded with a 270 wrap posteriorly using interrupted 2-0 silk sutures securing the wrap along the right awa, posteriorly as well as along the leftcrus. This was performed with the bougie in place, this was then removed for endoscopy. The bougie was removed. An upper GI endoscopy was performed. The flexible gastroscope was introduced through the patient's mouth, through the esophagus, through the stomach. The air was insufflated into the stomach and the scope retroflexed. The posterior fundoplication was intact, there was no evidence of a hiatal hernia and the wrap was otherwise normal. Normal postoperative configurations. The air was evacuated and the scope was withdrawn from the patient. She tolerated the procedure well, was extubated, sent to recovery in stable condition. The skin was closed using 4-0 Monocryl. There were no qualified residents available to facilitate the procedure, as a result Татьяна Muñiz PA-C was asked to serve as the ob gyn physician assistant for this procedure. [facility] [id number] Note* Op Note - Julian Kruse MD - 09/09/2023 6:59 AM EDT Images from the original note were not included. [facility] Physicians Surgery Patient Name: Sheyla Ramirez OPERATIVE NOTE DATE OF PROCEDURE: 09/09/2023 SURGEON: Julian Kruse MD AEROPHYSICIST: Татьяна Muñiz PA-C PREOPERATIVE DIAGNOSIS: Symptomatic Hiatal Hernia Refractory GERD POSTOPERATIVE DIAGNOSIS: Symptomatic Hiatal Hernia Refractory GERD OPERATION: Laparoscopic Hiatal Hernia Repair with Mesh Laparoscopic Posterior Toupet Fundoplication Upper GI Endoscopy ANESTHESIA: General anesthesia ESTIMATED BLOOD LOSS: less than 50 COMPLICATIONS: None PREOPERATIVE MEDICATIONS: Ancef, Heparin HISTORY: The patient is a 77 y.o. year old female with history of above preop diagnosis. I explained the risk, benefits, expected outcome, and alternatives to the procedure. Patient understands and is in agreement to proceed with operation. PROCEDURE: The patient was brought to the operating room and placed in supine position. After initiation of general anesthesia by the Anesthesia Department, she was placed in split-leg lithotomy with his arms extended. Care was taken to pad the bony prominences. Her abdomen was shaved, prepped, and draped in a normal sterile fashion. A Veress needle was placed in the left upper quadrant. We insufflated without difficulty and exchanged this for a 12 mm trocar. A 5 mm was placed in the right upper quadrant,one inferiorly and lateral to the initial access port and one in the mid epigastrium, a 5 mm subxiphoid stab wound was created for retraction of the left lobe of the liver using the Klaus liver retractor. Upon evaluation of the diaphragm, there was a hiatal hernia noted, both anteriorly and posteriorly.Because of the abnormal visual inspection of the diaphragm the hiatal hernia was repaired. The phrenoesophageal ligament was divided using hook electrocautery exposing the left awa of the diaphragm.We continued our dissection along the anterior crural arch from left to right. The gastrohepatic ligament was incised using Bovie electrocautery, the peritoneum overlying the junction of the transversely passing fat pad at the base of the right awa was incised. We bluntly mobilized the esophagus, and reduced the GE junction into the abdomen by 5 cm. A Fullerton drain was used to provide appropriate retraction. The anterior and posterior vagus nerves were identified and 360 degree circumferentialcomplete mobilization was performed. The hernia sac was from the mediastinum and completely reduced. The hernia sac was completely dissected off the distal esophagus as well as the right and left parietal pleura. The hiatal hernia crural separation measured approximately 10 cm. Multiple sutures of 0 Ethibond were used to reapproximate the left and right awa around the 50-Syrian bougie reapproximating the posterior defect created by the right and left posterior crural columns. At this point, because of the defect, a piece of biologic mesh was selected. A piece of ACell Gentrix Hiatal was utilized, rehydrated according to hide shaker's recommendations and introduced into the abdomen. It was tacked to the diaphragm, using the the bougie as a guide using a 4.8mm B shapedtacker. The tunica propria was secured to the diaphragm and the basement membrane to the wrap. We then proceeded with a posterior toupet fundoplication. The fundus was marked using a 3-0 Vicryl suture and brought in a retroesophageal plane. We proceeded with a 270 wrap posteriorly using interrupted 2-0 silk sutures securing the wrap along the right awa, posteriorly as well as along the leftcrus. This was performed with the bougie in place, this was then removed for endoscopy. The bougie was removed. An upper GI endoscopy was performed. The flexible gastroscope was introduced through the patient's mouth, through the esophagus, through the stomach. The air was insufflated into the stomach and the scope retroflexed. The posterior fundoplication was intact, there was no evidence of a hiatal hernia and the wrap was otherwise normal. Normal postoperative configurations. The air was evacuated and the scope was withdrawn from the patient. She tolerated the procedure well, was extubated, sent to recovery in stable condition. The skin was closed using 4-0 Monocryl. There were no qualified residents available to facilitate the procedure, as a result Татьяна Muñiz PA-C was asked to serve as the ob gyn physician assistant for this procedure. [facility] [id number] Attending History and physical note* Julian Kruse MD - 09/09/2023 6:53 AM EDT H&P reviewed. The patient was examined and there are no changes to the H&P. Source Note - Julian Kruse MD - 08/28/2023 10:00 AM EDT Images from the original note were not included. [facility] Advanced Laparoscopic Surgery, GERD Evaluation Follow-up Visit Patient Name: Sheyla Ramirez Date: 08/28/23 HPI: Sheyla Ramirez is a 77 y.o. female who has undergone a work-up for GERD, aspiration, regurgitation, cough worse at night. The patient is here for a follow-up visit to discuss the results of testing and the surgical options to treat that patients reflux. Results are as followed: Gerd Workup Dates Results Referring/GI provider Dr. Batista Initial Symptoms 06/26/23 GERD, aspiration, regurgitation, coughing worse at night UGI w/ Marshmallow/Bagel 07/24/23 Sm HH, no reflux, no dysmotility EGD 08/04/23 Gastritis, sm HH, reflux esophagitis; path: (-) h. pylori Mcdonald NA Manometry NA Surgery Scheduled/Performed: 09/09/23 Scheduled for lap HH repair w/ poss mesh, poss Jacques, partialfundoplication Follow Up Appt: 08/28/23 Aixa Acosta personally reviewed the patient intake form with the patient. The ROS is negative except for whatis listed in HPI. She was hospitalized last week for obstipation, she is on twice daily MiraLAX and this seems to be working well. PMHx: Past Medical History: Diagnosis Date Diabetes mellitus, type 2 (HCC) Gastro-esophageal reflux disease without esophagitis Glaucoma Hypercholesterolemia Other constipation Other intestinal obstruction unspecified as to partial versus complete obstruction (HCC) Other specified symptoms and signs involving the digestive system and abdomen Personal history of colonic polyps PSHx: Past Surgical History: Procedure Laterality Date COLONOSCOPY 2019 EGD (HISTORICAL) 2019 EGD (HISTORICAL) 08/04/2023 FLEXIBLE SIGMOIDOSCOPY N/A 08/22/2023 Performed by Val Chan MD at [facility] ENDOSCOPY SIGMOID COLECTOMY (HISTORICAL) 2010 Laparoscopic sigmoid colectomy for diverticulitis PFMHx: No family history on file. ALL: Allergies Allergen Reactions Grass Pollen(K-O-R-T-Swt Todd) Unknown Molds & Smuts Unknown Lisinopril Cough Neomycin Hives Penicillins Hives Seasonal Runny nose Sulfa Antibiotics MEDS: Current Outpatient Medications Medication Sig Dispense Refill atorvastatin (Lipitor) 10 MG tablet Take 10 mg by mouth daily. brimonidine (AlphaGAN) 0.2 % ophthalmic solution 1 drop 2 times daily. cholecalciferol (Vitamin D-3) 1.25 MG (02503 UT) capsule Take by mouth 1 (one) time per week. glimepiride (Amaryl) 4 MG tablet Take 1 tablet (4 mg) by mouth in the morning and 1 tablet (4 mg) in the evening. Take with meals. lansoprazole (Prevacid) [address] capsule Take by mouth every morning (before breakfast). Do not crush or chew. latanoprost (Xalatan) 0.005 % ophthalmic solution INSTILL 1 DROP INTO BOTH EYES ONCE A DAY losartan (Cozaar) 25 MG tablet Take by mouth. metFORMIN (Glucophage) 500 MG tablet Take 1 tablet (500 mg) by mouth in the morning and 1 tablet (500 mg) in the evening. Take with meals. 60 tablet 1 MULTIPLE VITAMIN PO Take by mouth. polyethylene glycol, PEG, 3350 (Miralax) 17 g packet Take 17 g by mouth daily. No current facility-administered medications for this visit. SOCIAL Hx: Social History Socioeconomic History Marital status: Spouse name: Not on file Number of children: Not on file Years of education: Not on file Highest education level: Not on file Occupational History Not on file Tobacco Use Smoking status: Never Smokeless tobacco: Never Substance and Sexual Activity Alcohol use: Not Currently Comment: SOCIALLY Drug use: Never Sexual activity: Not on file Other Topics Concern Not on file Social History Narrative Not on file Social Determinants of Health Financial Resource Strain: Not on file Food Insecurity: Not on file Transportation Needs: Not on file Physical Activity: Not on file Stress: Not on file Social Connections: Not on file Intimate Partner Violence: Not At Risk (08/21/2023) Humiliation, Afraid, Rape, and Kick questionnaire Fear of Current or Ex-Partner: No Emotionally Abused: No Physically Abused: No Sexually Abused: No Housing Stability: Not on file ROS: General: negative for - chills, fatigue, fever or malaise Gastrointestinal: negative for - change in bowel habits, hemoptysis, hematemesis, hematochezia, dysphagia, nausea, vomiting, diarrhea, constipation, weight loss DIAGNOSTIC EVALUATION: Gerd Workup Dates Results Referring/GI provider Dr. Batista Initial Symptoms 06/26/23 GERD, aspiration, regurgitation, coughing worse at night UGI w/ Marshmallow/Bagel 07/24/23 Sm HH, no reflux, no dysmotility EGD 08/04/23 Gastritis, sm HH, reflux esophagitis; path: (-) h. pylori Mcdonald NA Manometry NA Surgery Scheduled/Performed: 09/09/23 Scheduled for lap HH repair w/ poss mesh, poss Jacques, partialfundoplication Follow Up Appt: 08/28/23 Aixa Physical Examination: BP 112/60 (BP Location: Left arm, Patient Position: Sitting, BP Cuff Size: Large adult) Pulse 98 Temp 36.4 C (97.5 F) Wt 154 lb (69.9 kg) BMI 24.12 kg/m She stands tall with a weight of Weight: 154 lb (69.9 kg), resulting in a BMI of Body mass index is24.12 kg/m . General: The patient is awake, alert, and oriented, and is in no apparent distress; normal affect Respiratory: Normal effort, no gross abnormal breath sounds Abdomen: Appropriate girth, non-distended, healed scars from laparoscopic left hemicolectomy, soft,no masses or hepatosplenomegaly Hernia: None noted Extremities: Ambulatory without assistance, no obvious deformities Skin: Warm, dry, intact; no obvious lesions or discoloration Assessment/Plan Sheyla was seen today for follow-up. Diagnoses and all orders for this visit: GERD without esophagitis (Primary) Hiatal hernia 77-year-old female with a hiatal hernia and refractory GERD. This has been affecting her life with GERD, sleeping in a chair, chronic aspiration. She wishes to proceed with surgical intervention I met with her today to discuss risk and benefits of operative repair. The risks and benefits are outlined as below. We discussed the postoperative dietary advancement strategy and all of her questions were answered to her satisfaction. Proceed with surgery as scheduled. I met with the patient today to discuss risks and benefits of laparoscopic HH repair/anti-reflux surgery including, but not limited to injury to surrounding structures, the possibility of using mesh for diaphragmatic reinforcement, conversion to open, pleural effusion requiring thoracentesis and/orchest tube placement, prolonged mechanical ventilation, and . The patient is aware of the possibility of gas bloat syndrome, the need for ongoing PPI/H2 Ryan use, postoperative reflux or dysphagia requiring dilation. We discussed potential for hemorrhage, infection, incomplete resolution ofreflux symptoms, as well as cardiac and pulmonary-related complications. The possibility of removalof magnetic sphincter augmentation device was also explained if applicable. Non- operative alternatives were discussed with the patient. The patient understands and wishes to proceed with recommendations. Plan: Initial Pre-Operative Testing Primary Procedure: Laparoscopic hiatal hernia repair with poss mesh, poss Jacques, partial fundoplication, EGD on 09/09/23 Clearance: Cardiac - obtained 08/21/[address] Camarillo Preop SQ Heparin: 5000u subcutaneous heparin 2hrs preop I met with her today to discuss the risks and benefits of laparoscopic HH repair/anti-reflux surgery as outlined above. Visual aids were used to describe the procedure. All questions were answered topatient's satisfaction. I personally performed the evaluation and management of Sheyla Ramirez in the development of a treatment plan for this patient. I personally interviewed the patient and performed an individual physical examination. In addition, I discussed the patient's condition and treatment options with them. I have also reviewed and agree with the past medical, family and social history unless otherwise noted. All of the patient's questions were answered. I discussed/counseled the patient regarding the risks and benefits of surgery as well as the preoperative and postoperative care plan for this patient.The patient was seen and examined independently and relevant data reviewed by myself. A full chart review was performed. Patient Care Team: Lena Thorne as PCP - General (Internal Medicine) Chandana Batista (Gastroenterology) Autumn Worley, RN (Hospital Insurance Representative Manager) Vitor Camarillo (Cardiology) [facility] [id number] NoteH&P reviewed. The patient was examined and there are no changes to the H&P.[facility]07-24-2024 History and physical note* Julian Kruse MD - 09/09/2023 6:53 AM EDT H&P reviewed. The patient was examined and there are no changes to the H&P. Source Note - Julian Kruse MD - 08/28/2023 10:00 AM EDT Images from the original note were not included. [facility] Advanced Laparoscopic Surgery, GERD Evaluation Follow-up Visit Patient Name: Sheyla Ramirez Date: 08/28/23 HPI: Sheyla Ramirez is a 77 y.o. female who has undergone a work-up for GERD, aspiration, regurgitation, cough worse at night. The patient is here for a follow-up visit to discuss the results of testing and the surgical options to treat that patients reflux. Results are as followed: Gerd Workup Dates Results Referring/GI provider Dr. Batista Initial Symptoms 06/26/23 GERD, aspiration, regurgitation, coughing worse at night UGI w/ Marshmallow/Bagel 07/24/23 Sm HH, no reflux, no dysmotility EGD 08/04/23 Gastritis, sm HH, reflux esophagitis; path: (-) h. pylori Mcdonald NA Manometry NA Surgery Scheduled/Performed: 09/09/23 Scheduled for lap HH repair w/ poss mesh, poss Jacques, partialfundoplication Follow Up Appt: 08/28/23 Aixa Acosta personally reviewed the patient intake form with the patient. The ROS is negative except for whatis listed in HPI. She was hospitalized last week for obstipation, she is on twice daily MiraLAX and this seems to be working well. PMHx: Past Medical History: Diagnosis Date Diabetes mellitus, type 2 (HCC) Gastro-esophageal reflux disease without esophagitis Glaucoma Hypercholesterolemia Other constipation Other intestinal obstruction unspecified as to partial versus complete obstruction (HCC) Other specified symptoms and signs involving the digestive system and abdomen Personal history of colonic polyps PSHx: Past Surgical History: Procedure Laterality Date COLONOSCOPY 2019 EGD (HISTORICAL) 2019 EGD (HISTORICAL) 08/04/2023 FLEXIBLE SIGMOIDOSCOPY N/A 08/22/2023 Performed by Val Chan MD at [facility] ENDOSCOPY SIGMOID COLECTOMY (HISTORICAL) 2010 Laparoscopic sigmoid colectomy for diverticulitis PFMHx: No family history on file. ALL: Allergies Allergen Reactions Grass Pollen(K-O-R-T-Swt Todd) Unknown Molds & Smuts Unknown Lisinopril Cough Neomycin Hives Penicillins Hives Seasonal Runny nose Sulfa Antibiotics MEDS: Current Outpatient Medications Medication Sig Dispense Refill atorvastatin (Lipitor) 10 MG tablet Take 10 mg by mouth daily. brimonidine (AlphaGAN) 0.2 % ophthalmic solution 1 drop 2 times daily. cholecalciferol (Vitamin D-3) 1.25 MG (09694 UT) capsule Take by mouth 1 (one) time per week. glimepiride (Amaryl) 4 MG tablet Take 1 tablet (4 mg) by mouth in the morning and 1 tablet (4 mg) in the evening. Take with meals. lansoprazole (Prevacid) [address] capsule Take by mouth every morning (before breakfast). Do not crush or chew. latanoprost (Xalatan) 0.005 % ophthalmic solution INSTILL 1 DROP INTO BOTH EYES ONCE A DAY losartan (Cozaar) 25 MG tablet Take by mouth. metFORMIN (Glucophage) 500 MG tablet Take 1 tablet (500 mg) by mouth in the morning and 1 tablet (500 mg) in the evening. Take with meals. 60 tablet 1 MULTIPLE VITAMIN PO Take by mouth. polyethylene glycol, PEG, 3350 (Miralax) 17 g packet Take 17 g by mouth daily. No current facility-administered medications for this visit. SOCIAL Hx: Social History Socioeconomic History Marital status: Spouse name: Not on file Number of children: Not on file Years of education: Not on file Highest education level: Not on file Occupational History Not on file Tobacco Use Smoking status: Never Smokeless tobacco: Never Substance and Sexual Activity Alcohol use: Not Currently Comment: SOCIALLY Drug use: Never Sexual activity: Not on file Other Topics Concern Not on file Social History Narrative Not on file Social Determinants of Health Financial Resource Strain: Not on file Food Insecurity: Not on file Transportation Needs: Not on file Physical Activity: Not on file Stress: Not on file Social Connections: Not on file Intimate Partner Violence: Not At Risk (08/21/2023) Humiliation, Afraid, Rape, and Kick questionnaire Fear of Current or Ex-Partner: No Emotionally Abused: No Physically Abused: No Sexually Abused: No Housing Stability: Not on file ROS: General: negative for - chills, fatigue, fever or malaise Gastrointestinal: negative for - change in bowel habits, hemoptysis, hematemesis, hematochezia, dysphagia, nausea, vomiting, diarrhea, constipation, weight loss DIAGNOSTIC EVALUATION: Gerd Workup Dates Results Referring/GI provider Dr. Batista Initial Symptoms 06/26/23 GERD, aspiration, regurgitation, coughing worse at night UGI w/ Marshmallow/Bagel 07/24/23 Sm HH, no reflux, no dysmotility EGD 08/04/23 Gastritis, sm HH, reflux esophagitis; path: (-) h. pylori Mcdonald NA Manometry NA Surgery Scheduled/Performed: 09/09/23 Scheduled for lap HH repair w/ poss mesh, poss Jacques, partialfundoplication Follow Up Appt: 08/28/23 Zoluchoafharleen Physical Examination: BP 112/60 (BP Location: Left arm, Patient Position: Sitting, BP Cuff Size: Large adult) Pulse 98 Temp 36.4 C (97.5 F) Wt 154 lb (69.9 kg) BMI 24.12 kg/m She stands tall with a weight of Weight: 154 lb (69.9 kg), resulting in a BMI of Body mass index is24.12 kg/m . General: The patient is awake, alert, and oriented, and is in no apparent distress; normal affect Respiratory: Normal effort, no gross abnormal breath sounds Abdomen: Appropriate girth, non-distended, healed scars from laparoscopic left hemicolectomy, soft,no masses or hepatosplenomegaly Hernia: None noted Extremities: Ambulatory without assistance, no obvious deformities Skin: Warm, dry, intact; no obvious lesions or discoloration Assessment/Plan Sheyla was seen today for follow-up. Diagnoses and all orders for this visit: GERD without esophagitis (Primary) Hiatal hernia 77-year-old female with a hiatal hernia and refractory GERD. This has been affecting her life with GERD, sleeping in a chair, chronic aspiration. She wishes to proceed with surgical intervention I met with her today to discuss risk and benefits of operative repair. The risks and benefits are outlined as below. We discussed the postoperative dietary advancement strategy and all of her questions were answered to her satisfaction. Proceed with surgery as scheduled. I met with the patient today to discuss risks and benefits of laparoscopic HH repair/anti-reflux surgery including, but not limited to injury to surrounding structures, the possibility of using mesh for diaphragmatic reinforcement, conversion to open, pleural effusion requiring thoracentesis and/orchest tube placement, prolonged mechanical ventilation, and . The patient is aware of the possibility of gas bloat syndrome, the need for ongoing PPI/H2 Ryan use, postoperative reflux or dysphagia requiring dilation. We discussed potential for hemorrhage, infection, incomplete resolution ofreflux symptoms, as well as cardiac and pulmonary-related complications. The possibility of removalof magnetic sphincter augmentation device was also explained if applicable. Non- operative alternatives were discussed with the patient. The patient understands and wishes to proceed with recommendations. Plan: Initial Pre-Operative Testing Primary Procedure: Laparoscopic hiatal hernia repair with poss mesh, poss Jacques, partial fundoplication, EGD on 09/09/23 Clearance: Cardiac - obtained 08/21/[address] Camarillo Preop SQ Heparin: 5000u subcutaneous heparin 2hrs preop I met with her today to discuss the risks and benefits of laparoscopic HH repair/anti-reflux surgery as outlined above. Visual aids were used to describe the procedure. All questions were answered topatient's satisfaction. I personally performed the evaluation and management of Sheyla Ramirez in the development of a treatment plan for this patient. I personally interviewed the patient and performed an individual physical examination. In addition, I discussed the patient's condition and treatment options with them. I have also reviewed and agree with the past medical, family and social history unless otherwise noted. All of the patient's questions were answered. I discussed/counseled the patient regarding the risks and benefits of surgery as well as the preoperative and postoperative care plan for this patient.The patient was seen and examined independently and relevant data reviewed by myself. A full chart review was performed. Patient Care Team: Lena Thorne as PCP - General (Internal Medicine) Chandana Batista (Gastroenterology) Autumn Worley RN (Hospital Insurance Representative Manager) Vitor Camarillo (Cardiology) documented in this [facility]07-24-2024 NotePatient: Sheyla Ramirez Procedure Information Date/Time: 09/09/23 07 Procedures: LAPAROSCOPIC HIATAL HERNIA REPAIR, WITH MESH, WITH POSTERIOR FUNDOPLICATION, (Abdomen) - 150 min total ESOPHAGOGASTRODUODENOSCOPY WITH BIOPSY, POSSIBLE OPEN Location: [facility] OR [address] [place] [address] Operating Room Surgeons: Julian Kruse MD Relevant Problems Cardio (+) Disorder of carotid artery (CMS/HCC) (HCC) (+) Hyperlipidemia (+) Primary hypertension Endo (+) Type 2 diabetes mellitus (HCC) GI (+) Gastroesophageal reflux disease without esophagitis (+) Hiatal hernia /Renal (+) Injury of kidney Past Medical History: Past Medical History: No date: Diabetes mellitus, type 2 (HCC) No date: Gastro-esophageal reflux disease without esophagitis No date: Glaucoma No date: Hypercholesterolemia No date: Other constipation No date: Other intestinal obstruction unspecified as to partial versus complete obstruction (HCC) No date: Other specified symptoms and signs involving the digestive system and abdomen No date: Personal history of colonic polyps Past Surgical History: Past Surgical History: No date: COLONOSCOPY Comment: 2019 No date: EGD (HISTORICAL) Comment: 201908/04/2023: EGD (HISTORICAL) 08/22/2023: FLEXIBLE SIGMOIDOSCOPY; N/A Comment: Performed by Val Chan MD at [facility] ENDOSCOPY 2011: SIGMOID COLECTOMY (HISTORICAL) Comment: Laparoscopic sigmoid colectomy for diverticulitis Social History: TOBACCO: reports that she has never smoked. She has never used smokeless tobacco. ETOH: reports that she does not currently use alcohol. Social History Substance and Sexual Activity Drug Use Never Family History: No family history on file. Screening: Postmenopausal Clinical information reviewed: Tobacco Allergies Med Hx Surg Hx OB Status Fam Hx Soc Hx Physical Exam Airway Mallampati: III TM distance: >3 FB Neck ROM: full Mouth Open: limitedendotracheal tube not in place Cardiovascular Dental dentition normal Pulmonary Abdominal Anesthesia Plan patient is NPO appropriate Any family history or previous problems with anesthesia no ASA 2 general and regional Any family history or previous problems with anesthesia no The patient is not a current smoker. Anesthetic plan and risks discussed with patient. Anesthesia Linder Considerations Small mouth opening- Glidescope available LICA with non-surgical blockage being monitored. 50-69% per patient with no ulcerating plaques AMELIA Screening Labs: Lab Results Component Value Date WBC 5.9 08/23/2023 HGB 11.9 08/23/2023 HCT 37.1 08/23/2023 MCV 88.8 08/23/2023 PLT 158 08/23/2023 Lab Results Component Value Date NA 138 08/23/2023 K 4.0 08/23/2023 CL 108 (H) 08/23/2023 CO2 23 08/23/2023 BUN 8 08/23/2023 CREATININE 0.58 08/23/2023 GLUCOSE 96 08/23/2023 CALCIUM 9.2 08/23/2023 PROT 6.0 (L) 08/23/2023 ALKPHOS 65 08/23/2023 AST 23 08/23/2023 ALT 20 08/23/2023 EGFR >90.0 08/23/2023 No echocardiogram results found for the past 14 days 09/09/23 ECG 12-LEAD (Preliminary) This result has not been signed. Information might be incomplete. Impression Sinus rhythm LVH by voltage Inferior infarct, age indeterminate BGT 155 Equipment Requests: Additional Equipment Requests Scope: [facility]07-23-2024 Hospital Discharge instructions* Discharge Instructions* Julian Kruse MD - 09/08/2023 10:47 AM EDT Images from the original note were not included. [facility] - Surgery [facility] Physicians Surgery DISCHARGE INSTRUCTIONS FOR DR. KRUSE Thank you very much for allowing me to participate in your care, it is truly a privilege. Below please see discharge orders that will help you during your recovery. Please do not hesitate to call theoffice during the day at [phone] for any questions. After hours, the same number will allow you to reach the on-call surgeon. Please remove the Steri-Strips 5 days after surgery. Please remove the Steri- Strips as instructed 5days after your date of surgery, remove them on Thursday, September 14, 2023. This includes any clear bandages and gauze placed in the navel, if applicable. If you have been provided with an abdominal binder, this is for your comfort. Please take this off in order to shower and use it as needed for your comfort. There is no designated time frame with which you should wear the binder. Again, it is only for your comfort and symptom relief. Please shower the day after surgery. Soap and water is adequate. Keep the incisions clean and dry. No lotions or ointments until you are seen in the office. Surgery can hurt! Please make every effort to take the pain medicine as instructed to help reduce your discomfort. I usually recommend that you take pain medicine when you wake up in the morning and before you go to sleep. Schedule the rest of the day in order to not interfere with medication dosages as prescribed. If you feel that the medicine is not working, please call the office. Should you have nausea after surgery (the most common complaint after surgery) you will be providedwith a prescription for Zofran. Please utilize this should you have any postoperative nausea or vomiting. If you feel that the medicine is not working, please call the office. Please use Miralax (available over the counter) until you have a bowel movement. Constipation is routine after surgery and adding the Miralax will help prevent constipation. For any emergencies, please dial 911. Thank you again for allowing me to participate in your care, and get well soon! Best regards, Julian Kruse M.D., F.A.C.S.Postoperative Hiatal Hernia Dietary Advancement Recommendations Good nutrition is important when healing from an illness, injury, or surgery. Follow any nutrition recommendations given to you during your hospital stay. If you were given an oral nutrition supplement while in the hospital, continue to take this supplement at home. You can take it with meals, in-between meals, and/or before bedtime. These supplements can be purchased at most local grocery stores, pharmacies, and [employer]. If you have any questions about your diet or nutrition, call the hospital and ask for the dietitian. Avoid carbonation, straws, gum chewing, and smoking. These activities introduce air into your stomach and cause bloating and discomfort. Simethicone (gas-x) may ease gas pain and can be purchased over the counter without a prescription. Day 1 after your surgery begin a clear liquid diet. It includes the following liquids: Apple juice Cranberry juice Grape juice Chicken broth Beef broth Flavored gelatin (Jell-O ) Decaf tea and coffee Caffeinated beverages are permitted based on tolerance Popsicles Turkmen ice Day 2 and Day 3 after your surgery advance diet to full liquid diet which includes anything on the clear liquid diet, plus: Milk, soy, rice and almond Cream of wheat, cream of rice, grits Strained creamed soups Vanilla and strawberry-flavored ice cream Sherbet Blended, custard styled or whipped yogurt Vanilla and butterscotch pudding Nutritional drinks including Ensure , Boost , [place] Instant Breakfast Mashed potatoes On Day 4 after your surgery you may start a soft diet and continue this diet until you follow up inthe office in one to two weeks. A list of food items is below. Food Category Foods to Choose Foods to Avoid Beverages Milk, such as, whole, 2%, 1%, non-fat, or skim, soy, rice, almond Caffeinated and decaf tea and coffee Powdered drink mixes (in moderation) Non-citrus juices (apple, grape, cranberry or blends of these) Fruit nectars Nutritional drinks including Boost , Ensure , [place] Instant Breakfast Carbonated drinks Alcohol Crisp juices like orange, grapefruit, lemon and [place] Breads Pancakes, Syrian toast and waffles Crackers (saltine, butter, soda, shun, Goldfish and Cheese Nips ) Toasted bread Untoasted bread, bagels, Garcia and hard rolls, Citizen Of [place] muffins Crackers with nuts, seeds, fresh or dried fruit, coconut, or highly seasoned, such as garlic or onion-flavored Sweet rolls, coffee cake or doughnuts Cereals Well cooked cereals, such as oatmeal (plain or flavored) Cold cereal (Cornflakes , Rice Krispies , Cheerios , Special K plain, Rice Chex and puffed rice) Very coarse cereal, such as bran, shredded wheat Any cereal with fresh or dried fruit, coconut, seeds or nuts Desserts Eat in moderation and do not eat desserts or sweets by themselves. Plain cakes, cookies and cream-filled pies Vanilla and butterscotch pudding or custard Ice cream, ice milk, frozen yogurt and sherbet Gelatin made from allowed foods Fruit ices and popsicles Desserts containing chocolate, coconut, nuts, seeds, fresh or dried fruit,peppermint or spearmint Eggs Poached, hard boiled or scrambled Fried eggs and highly seasoned eggs Fats Eat in moderation. Butter and margarine Mayonnaise and vegetable oils Mildly seasoned cream sauces and gravies Plain cream cheese Sour cream Highly seasoned salad dressings, cream sauces and gravies Johnson, johnson fat, ham fat, lard and salt pork Fried foods Nuts Fruits Fruit juice Any canned or cooked fruit except those listed in the AVOID column ALL fresh fruits, such as citrus, bananas and pineapple Canned pineapple Dried fruits, such as raisins, berries Fruits with seeds, such as berries, kiwi and figs Meat, Fish, Poultry, and Dairy Products Meats may be ground, minced or chopped to ease swallowing and digestion Tender, well cooked and moist cuts of beef, chicken, turkey and pork Veal and hoffman Flaky, cooked fish Canned tuna Cottage and ricotta cheeses Mild cheese, such as Belgian, brick, mozzarella and baby Bolivian Creamy peanut butter Plain custard or blended fruit yogurt Moist casseroles, such as macaroni & cheese, tuna noodle Grilled or toasted cheese sandwich Tough meats with a lot of gristle Fried, highly seasoned, smoked and fatty meat, fish or poultry, such as frankfurters, luncheon meats, sausage, johnson, spare ribs, beef brisket, sardines, anchovies, duck and goose Sabinal and other entrees made with pepper or chili pepper Shellfish Strongly flavored cheeses, such as sharp cheese, extra sharp cheddar, cheese containing peppers or other seasonings Crunchy peanut butter Any yogurt with nuts, seeds, coconut, strawberries or raspberries Potatoes and Starches Peeled, mashed or boiled white or sweet potatoes Oven-baked potatoes without skin Well cooked white rice, enriched noodles, barley, spaghetti, macaroni and other pastas Fried potatoes, potato skins and potato chips Hard and soft taco shells Fried, brown or wild rice Soups Mildly flavored meat stocks Cream soups made from allowed foods Highly seasoned soups and tomato based soups, cream soups made with gas producing vegetables, such as broccoli, cauliflower, onion, etc. Sweets and Snacks Use in moderation and do not eat large amounts of sweets by themselves. Syrup, honey, jelly and seedless jam Plain hard candies and plain candies made with allowed ingredients Molasses Marshmallows Other candy made from allowed ingredients Thin pretzels Jam, marmalade and preserves Chocolate in any form Any candy containing nuts, coconut, seeds, peppermint, spearmint or dried or fresh fruit Popcorn, potato chips, tortilla chips Soft or hard thick pretzels, such as sourdough Vegetables Well cooked soft vegetables without seeds or skins, such as asparagus tips, beets, carrots, green and wax beans, chopped spinach, tender canned baby peas, squash and pumpkin Raw vegetables, tomatoes, tomato juice, tomato sauce and V-8 juice Gas producing vegetables, such as broccoli, Brussel sprouts, cabbage, cauliflower, onions, corn, cucumber, green peppers, rutabagas, turnips, radishes and sauerkraut Dried beans, peas and lentils Miscellaneous Salt and spices in moderation Mustard and vinegar in moderation Fried or highly seasoned foods Coconut and seeds Pickles and olives Sabinal sauces, ketchup, barbecue sauce, horseradish, black pepper, chili powder and onion and garlicseasonings Any other strongly flavored seasoning, condiment, spice or herb not tolerated Any food not tolerated documented in this [facility]07-19-2024 History of Present illness Narrative* Autumn Worley RN - 09/04/2023 1:00 PM EDT Chart reviewed enrolled in 30-day [facility] Transition of [facility] Ambulatory program post-hospital discharge on 08/25/23 Dx: Abdominal pain. 2nd transitions call made introduced self and role. Patient reportsdoing fine denies any health questions or concerns reports did start her Metformin 500 mg twice a day. CM to schedule future outreach. documented in this [facility]07-12-2024 History of Present illness Narrative* Julian Kruse MD - 08/28/2023 10:00 AM EDT Images from the original note were not included. [facility] Advanced Laparoscopic Surgery, GERD Evaluation Follow-up Visit Patient Name: Sheyla Ramirez Date: 08/28/23 HPI: Sheyla Ramirez is a 77 y.o. female who has undergone a work-up for GERD, aspiration, regurgitation, cough worse at night. The patient is here for a follow-up visit to discuss the results of testing and the surgical options to treat that patients reflux. Results are as followed: Gerd Workup Dates Results Referring/GI provider Dr. Batista Initial Symptoms 06/26/23 GERD, aspiration, regurgitation, coughing worse at night UGI w/ Marshmallow/Bagel 07/24/23 Sm HH, no reflux, no dysmotility EGD 08/04/23 Gastritis, sm HH, reflux esophagitis; path: (-) h. pylori Mcdonald NA Manometry NA Surgery Scheduled/Performed: 09/09/23 Scheduled for lap HH repair w/ poss mesh, poss Jacques, partialfundoplication Follow Up Appt: 08/28/23 Aixa Acosta personally reviewed the patient intake form with the patient. The ROS is negative except for whatis listed in HPI. She was hospitalized last week for obstipation, she is on twice daily MiraLAX and this seems to be working well. PMHx: Past Medical History: Diagnosis Date Diabetes mellitus, type 2 (HCC) Gastro-esophageal reflux disease without esophagitis Glaucoma Hypercholesterolemia Other constipation Other intestinal obstruction unspecified as to partial versus complete obstruction (HCC) Other specified symptoms and signs involving the digestive system and abdomen Personal history of colonic polyps PSHx: Past Surgical History: Procedure Laterality Date COLONOSCOPY 2019 EGD (HISTORICAL) 2019 EGD (HISTORICAL) 08/04/2023 FLEXIBLE SIGMOIDOSCOPY N/A 08/22/2023 Performed by Val Chan MD at [facility] ENDOSCOPY SIGMOID COLECTOMY (HISTORICAL) 2010 Laparoscopic sigmoid colectomy for diverticulitis PFMHx: No family history on file. ALL: Allergies Allergen Reactions Grass Pollen(K-O-R-T-Swt Todd) Unknown Molds & Smuts Unknown Lisinopril Cough Neomycin Hives Penicillins Hives Seasonal Runny nose Sulfa Antibiotics MEDS: Current Outpatient Medications Medication Sig Dispense Refill atorvastatin (Lipitor) 10 MG tablet Take 10 mg by mouth daily. brimonidine (AlphaGAN) 0.2 % ophthalmic solution 1 drop 2 times daily. cholecalciferol (Vitamin D-3) 1.25 MG (91707 UT) capsule Take by mouth 1 (one) time per week. glimepiride (Amaryl) 4 MG tablet Take 1 tablet (4 mg) by mouth in the morning and 1 tablet (4 mg) in the evening. Take with meals. lansoprazole (Prevacid) [address] capsule Take by mouth every morning (before breakfast). Do not crush or chew. latanoprost (Xalatan) 0.005 % ophthalmic solution INSTILL 1 DROP INTO BOTH EYES ONCE A DAY losartan (Cozaar) 25 MG tablet Take by mouth. metFORMIN (Glucophage) 500 MG tablet Take 1 tablet (500 mg) by mouth in the morning and 1 tablet (500 mg) in the evening. Take with meals. 60 tablet 1 MULTIPLE VITAMIN PO Take by mouth. polyethylene glycol, PEG, 3350 (Miralax) 17 g packet Take 17 g by mouth daily. No current facility-administered medications for this visit. SOCIAL Hx: Social History Socioeconomic History Marital status: Spouse name: Not on file Number of children: Not on file Years of education: Not on file Highest education level: Not on file Occupational History Not on file Tobacco Use Smoking status: Never Smokeless tobacco: Never Substance and Sexual Activity Alcohol use: Not Currently Comment: SOCIALLY Drug use: Never Sexual activity: Not on file Other Topics Concern Not on file Social History Narrative Not on file Social Determinants of Health Financial Resource Strain: Not on file Food Insecurity: Not on file Transportation Needs: Not on file Physical Activity: Not on file Stress: Not on file Social Connections: Not on file Intimate Partner Violence: Not At Risk (08/21/2023) Humiliation, Afraid, Rape, and Kick questionnaire Fear of Current or Ex-Partner: No Emotionally Abused: No Physically Abused: No Sexually Abused: No Housing Stability: Not on file ROS: General: negative for - chills, fatigue, fever or malaise Gastrointestinal: negative for - change in bowel habits, hemoptysis, hematemesis, hematochezia, dysphagia, nausea, vomiting, diarrhea, constipation, weight loss DIAGNOSTIC EVALUATION: Gerd Workup Dates Results Referring/GI provider Dr. Batista Initial Symptoms 06/26/23 GERD, aspiration, regurgitation, coughing worse at night UGI w/ Marshmallow/Bagel 07/24/23 Sm HH, no reflux, no dysmotility EGD 08/04/23 Gastritis, sm HH, reflux esophagitis; path: (-) h. pylori Mcdonald NA Manometry NA Surgery Scheduled/Performed: 09/09/23 Scheduled for lap HH repair w/ poss mesh, poss Jacques, partialfundoplication Follow Up Appt: 08/28/23 Aixa Physical Examination: BP 112/60 (BP Location: Left arm, Patient Position: Sitting, BP Cuff Size: Large adult) Pulse 98 Temp 36.4 C (97.5 F) Wt 154 lb (69.9 kg) BMI 24.12 kg/m She stands tall with a weight of Weight: 154 lb (69.9 kg), resulting in a BMI of Body mass index is24.12 kg/m . General: The patient is awake, alert, and oriented, and is in no apparent distress; normal affect Respiratory: Normal effort, no gross abnormal breath sounds Abdomen: Appropriate girth, non-distended, healed scars from laparoscopic left hemicolectomy, soft,no masses or hepatosplenomegaly Hernia: None noted Extremities: Ambulatory without assistance, no obvious deformities Skin: Warm, dry, intact; no obvious lesions or discoloration Assessment/Plan Sheyla was seen today for follow-up. Diagnoses and all orders for this visit: GERD without esophagitis (Primary) Hiatal hernia 77-year-old female with a hiatal hernia and refractory GERD. This has been affecting her life with GERD, sleeping in a chair, chronic aspiration. She wishes to proceed with surgical intervention I met with her today to discuss risk and benefits of operative repair. The risks and benefits are outlined as below. We discussed the postoperative dietary advancement strategy and all of her questions were answered to her satisfaction. Proceed with surgery as scheduled. I met with the patient today to discuss risks and benefits of laparoscopic HH repair/anti-reflux surgery including, but not limited to injury to surrounding structures, the possibility of using mesh for diaphragmatic reinforcement, conversion to open, pleural effusion requiring thoracentesis and/orchest tube placement, prolonged mechanical ventilation, and . The patient is aware of the possibility of gas bloat syndrome, the need for ongoing PPI/H2 Ryan use, postoperative reflux or dysphagia requiring dilation. We discussed potential for hemorrhage, infection, incomplete resolution ofreflux symptoms, as well as cardiac and pulmonary-related complications. The possibility of removalof magnetic sphincter augmentation device was also explained if applicable. Non- operative alternatives were discussed with the patient. The patient understands and wishes to proceed with recommendations. Plan: Initial Pre-Operative Testing Primary Procedure: Laparoscopic hiatal hernia repair with poss mesh, poss Jacques, partial fundoplication, EGD on 09/09/23 Clearance: Cardiac - obtained 08/21/[address] Camarillo Preop SQ Heparin: 5000u subcutaneous heparin 2hrs preop I met with her today to discuss the risks and benefits of laparoscopic HH repair/anti-reflux surgery as outlined above. Visual aids were used to describe the procedure. All questions were answered topatient's satisfaction. I personally performed the evaluation and management of Sheyla Ramirez in the development of a treatment plan for this patient. I personally interviewed the patient and performed an individual physical examination. In addition, I discussed the patient's condition and treatment options with them. I have also reviewed and agree with the past medical, family and social history unless otherwise noted. All of the patient's questions were answered. I discussed/counseled the patient regarding the risks and benefits of surgery as well as the preoperative and postoperative care plan for this patient.The patient was seen and examined independently and relevant data reviewed by myself. A full chart review was performed. Patient Care Team: Lena Thorne as PCP - General (Internal Medicine) Chandana Batista (Gastroenterology) Autumn Worley RN (Hospital Insurance Representative Manager) Vitor Camarillo (Cardiology) documented in this [facility]07-12-2024 [facility] Advanced Laparoscopic Surgery, GERD Evaluation Follow-up Visit Patient Name: Sheyla Ramirez Date: 08/28/23 HPI: Sheyla Ramirez is a 77 y.o. female who has undergone a work-up for GERD, aspiration, regurgitation, cough worse at night. The patient is here for a follow-up visit to discuss the results of testing and the surgical options to treat that patients reflux. Results are as followed: Gerd Workup Dates Results Referring/GI provider Dr. Batista Initial Symptoms 06/26/23 GERD, aspiration, regurgitation, coughing worse at night UGI w/ Marshmallow/Bagel 07/24/23 Sm HH, no reflux, no dysmotility EGD 08/04/23 Gastritis, sm HH, reflux esophagitis; path: (-) h. pylori Mcdonald NA Manometry NA Surgery Scheduled/Performed: 09/09/23 Scheduled for lap HH repair w/ poss mesh, poss Jacques, partial fundoplication Follow Up Appt: 08/28/23 Aixa Acosta personally reviewed the patient intake form with the patient. The ROS is negative except for what is listed in HPI. She was hospitalized last week for obstipation, she is on twice daily MiraLAX and this seems to be working well. PMHx: Past Medical History: Diagnosis Date Diabetes mellitus, type 2 (HCC) Gastro-esophageal reflux disease without esophagitis Glaucoma Hypercholesterolemia Other constipation Other intestinal obstruction unspecified as to partial versus complete obstruction (HCC) Other specified symptoms and signs involving the digestive system and abdomen Personal history of colonic polyps PSHx: Past Surgical History: Procedure Laterality Date COLONOSCOPY 2019 EGD (HISTORICAL) 2019 EGD (HISTORICAL) 08/04/2023 FLEXIBLE SIGMOIDOSCOPY N/A 08/22/2023 Performed by Val Chan MD at [facility] ENDOSCOPY SIGMOID COLECTOMY (HISTORICAL) 2010 Laparoscopic sigmoid colectomy for diverticulitis PFMHx: No family history on file. ALL: Allergies Allergen Reactions Grass Pollen(K-O-R-T-Swt Todd) Unknown Molds & Smuts Unknown Lisinopril Cough Neomycin Hives Penicillins Hives Seasonal Runny nose Sulfa Antibiotics MEDS: Current Outpatient Medications Medication Sig Dispense Refill atorvastatin (Lipitor) 10 MG tablet Take 10 mg by mouth daily. brimonidine (AlphaGAN) 0.2 % ophthalmic solution 1 drop 2 times daily. cholecalciferol (Vitamin D-3) 1.25 MG (27829 UT) capsule Take by mouth 1 (one) time per week. glimepiride (Amaryl) 4 MG tablet Take 1 tablet (4 mg) by mouth in the morning and 1 tablet (4 mg) in the evening. Take with meals. lansoprazole (Prevacid) [address] capsule Take by mouth every morning (before breakfast). Do not crush or chew. latanoprost (Xalatan) 0.005 % ophthalmic solution INSTILL 1 DROP INTO BOTH EYES ONCE A DAY losartan (Cozaar) 25 MG tablet Take by mouth. metFORMIN (Glucophage) 500 MG tablet Take 1 tablet (500 mg) by mouth in the morning and 1 tablet (500 mg) in the evening. Take with meals. 60 tablet 1 MULTIPLE VITAMIN PO Take by mouth. polyethylene glycol, PEG, 3350 (Miralax) 17 g packet Take 17 g by mouth daily. No current facility-administered medications for this visit. SOCIAL Hx: Social History Socioeconomic History Marital status: Spouse name: Not on file Number of children: Not on file Years of education: Not on file Highest education level: Not on file Occupational History Not on file Tobacco Use Smoking status: Never Smokeless tobacco: Never Substance and Sexual Activity Alcohol use: Not Currently Comment: SOCIALLY Drug use: Never Sexual activity: Not on file Other Topics Concern Not on file Social History Narrative Not on file Social Determinants of Health Financial Resource Strain: Not on file Food Insecurity: Not on file Transportation Needs: Not on file Physical Activity: Not on file Stress: Not on file Social Connections: Not on file Intimate Partner Violence: Not At Risk (08/21/2023) Humiliation, Afraid, Rape, and Kick questionnaire Fear of Current or Ex-Partner: No Emotionally Abused: No Physically Abused: No Sexually Abused: No Housing Stability: Not on file ROS: General: negative for - chills, fatigue, fever or malaise Gastrointestinal: negative for - change in bowel habits, hemoptysis, hematemesis, hematochezia, dysphagia, nausea, vomiting, diarrhea, constipation, weight loss DIAGNOSTIC EVALUATION: Gerd Workup Dates Results Referring/GI provider Dr. Batista Initial Symptoms 06/26/23 GERD, aspiration, regurgitation, coughing worse at night UGI w/ Marshmallow/Bagel 07/24/23 Sm HH, no reflux, no dysmotility EGD 08/04/23 Gastritis, sm HH, reflux esophagitis; path: (-) h. pylori Mcdonald NA Manometry NA Surgery Scheduled/Performed: 09/09/23 Scheduled for lap HH repair w/ poss mesh, poss Jacques, partial fundoplication Follow Up Appt: 08/28/23 Aixa Physical Examination: BP 112/60 (BP Location: Left arm, Patient Position: Sitting, BP Cuff Size: Large adult) Pulse 98 Temp 36.4 ?C ( (more content not included)...[facility] [id number] [facility] Advanced Laparoscopic Surgery, GERD Evaluation Follow-up Visit Patient Name: Sheyla Ramirez Date: 08/28/23 HPI: Sheyla Ramirez is a 77 y.o. female who has undergone a work-up for GERD, aspiration, regurgitation, cough worse at night. The patient is here for a follow-up visit to discuss the results of testing and the surgical options to treat that patients reflux. Results are as followed: Gerd Workup Dates Results Referring/GI provider Dr. Batista Initial Symptoms 06/26/23 GERD, aspiration, regurgitation, coughing worse at night UGI w/ Marshmallow/Bagel 07/24/23 Sm HH, no reflux, no dysmotility EGD 08/04/23 Gastritis, sm HH, reflux esophagitis; path: (-) h. pylori Mcdonald NA Manometry NA Surgery Scheduled/Performed: 09/09/23 Scheduled for lap HH repair w/ poss mesh, poss Jacques, partial fundoplication Follow Up Appt: 08/28/23 Aixa Acosta personally reviewed the patient intake form with the patient. The ROS is negative except for what is listed in HPI. She was hospitalized last week for obstipation, she is on twice daily MiraLAX and this seems to be working well. PMHx: Past Medical History: Diagnosis Date Diabetes mellitus, type 2 (HCC) Gastro-esophageal reflux disease without esophagitis Glaucoma Hypercholesterolemia Other constipation Other intestinal obstruction unspecified as to partial versus complete obstruction (HCC) Other specified symptoms and signs involving the digestive system and abdomen Personal history of colonic polyps PSHx: Past Surgical History: Procedure Laterality Date COLONOSCOPY 2019 EGD (HISTORICAL) 2019 EGD (HISTORICAL) 08/04/2023 FLEXIBLE SIGMOIDOSCOPY N/A 08/22/2023 Performed by Val Chan MD at [facility] ENDOSCOPY SIGMOID COLECTOMY (HISTORICAL) 2010 Laparoscopic sigmoid colectomy for diverticulitis PFMHx: No family history on file. ALL: Allergies Allergen Reactions Grass Pollen(K-O-R-T-Swt Todd) Unknown Molds & Smuts Unknown Lisinopril Cough Neomycin Hives Penicillins Hives Seasonal Runny nose Sulfa Antibiotics MEDS: Current Outpatient Medications Medication Sig Dispense Refill atorvastatin (Lipitor) 10 MG tablet Take 10 mg by mouth daily. brimonidine (AlphaGAN) 0.2 % ophthalmic solution 1 drop 2 times daily. cholecalciferol (Vitamin D-3) 1.25 MG (72715 UT) capsule Take by mouth 1 (one) time per week. glimepiride (Amaryl) 4 MG tablet Take 1 tablet (4 mg) by mouth in the morning and 1 tablet (4 mg) in the evening. Take with meals. lansoprazole (Prevacid) [address] capsule Take by mouth every morning (before breakfast). Do not crush or chew. latanoprost (Xalatan) 0.005 % ophthalmic solution INSTILL 1 DROP INTO BOTH EYES ONCE A DAY losartan (Cozaar) 25 MG tablet Take by mouth. metFORMIN (Glucophage) 500 MG tablet Take 1 tablet (500 mg) by mouth in the morning and 1 tablet (500 mg) in the evening. Take with meals. 60 tablet 1 MULTIPLE VITAMIN PO Take by mouth. polyethylene glycol, PEG, 3350 (Miralax) 17 g packet Take 17 g by mouth daily. No current facility-administered medications for this visit. SOCIAL Hx: Social History Socioeconomic History Marital status: Spouse name: Not on file Number of children: Not on file Years of education: Not on file Highest education level: Not on file Occupational History Not on file Tobacco Use Smoking status: Never Smokeless tobacco: Never Substance and Sexual Activity Alcohol use: Not Currently Comment: SOCIALLY Drug use: Never Sexual activity: Not on file Other Topics Concern Not on file Social History Narrative Not on file Social Determinants of Health Financial Resource Strain: Not on file Food Insecurity: Not on file Transportation Needs: Not on file Physical Activity: Not on file Stress: Not on file Social Connections: Not on file Intimate Partner Violence: Not At Risk (08/21/2023) Humiliation, Afraid, Rape, and Kick questionnaire Fear of Current or Ex-Partner: No Emotionally Abused: No Physically Abused: No Sexually Abused: No Housing Stability: Not on file ROS: General: negative for - chills, fatigue, fever or malaise Gastrointestinal: negative for - change in bowel habits, hemoptysis, hematemesis, hematochezia, dysphagia, nausea, vomiting, diarrhea, constipation, weight loss DIAGNOSTIC EVALUATION: Gerd Workup Dates Results Referring/GI provider Dr. Batista Initial Symptoms 06/26/23 GERD, aspiration, regurgitation, coughing worse at night UGI w/ Marshmallow/Bagel 07/24/23 Sm HH, no reflux, no dysmotility EGD 08/04/23 Gastritis, sm HH, reflux esophagitis; path: (-) h. pylori Mcdonald NA Manometry NA Surgery Scheduled/Performed: 09/09/23 Scheduled for lap HH repair w/ poss mesh, poss Jacques, partial fundoplication Follow Up Appt: 08/28/23 Aixa Physical Examination: BP 112/60 (BP Location: Left arm, Patient Position: Sitting, BP Cuff Size: Large adult) Pulse 98 Temp 36.4 ?C ( (more content not included)...[employer] [id number] Telephone encounter Note* Telephone Encounter - Niesha Garcia - 08/25/2023 11:15 AM EDT PAT canceled KARALIT [id number] Miscellaneous Notes* Telephone Encounter - Niesha Garcia - 08/25/2023 11:15 AM EDT PAT canceled * Telephone Encounter - Татьяна Muñiz PA-C - 08/25/2023 11:12 AM EDT Cardiac ECHO & stress test performed on 08/18 obtained and reviewed - normal. Cardiac clearance obtained. Spoke to patient and let her know that she does NOT need to proceed with PAT tomorrow and we will cancel that appointment. Proceed with office appointment with Dr. Ceballos on Thursday. * Telephone Encounter - Татьяна Muñiz PA-C - 08/25/2023 11:12 AM EDT ----- Message from Julian Kruse MD sent at 08/24/2023 4:54 PM EDT ----- Sha -she was admitted this weekend, I anticipate her going home on Thursday. She states that she hada stress test and other cardiac workup at [place], please see if you can find results in epic. She had an EGD with anesthesia this past Thursday and has her PAT appointment coming up on Thursday. I really do not see the need for PAT appointment if she has a negative cardiac workup and was just seen by anesthesia on Thursday, please verify and if so lets cancel her appointment for Thursday PAT Thanks Once we figure this out please let her know through a phone call what we did, she does not use MyChart documented in this [facility]07-09-2024 Telephone encounter Note* Telephone Encounter - Татьяна Muñiz PA-C - 08/25/2023 11:12 AM EDT Cardiac ECHO & stress test performed on 08/18 obtained and reviewed - normal. Cardiac clearance obtained. Spoke to patient and let her know that she does NOT need to proceed with PAT tomorrow and we will cancel that appointment. Proceed with office appointment with Dr. Ceballos on Thursday. [employer] Work Phone: [phone]) 975-954307-09-2024 Telephone encounter Note* Telephone Encounter - Татьяна Muñiz PA-C - 08/25/2023 11:12 AM EDT ----- Message from Julian Kruse MD sent at 08/24/2023 4:54 PM EDT ----- Sha -she was admitted this weekend, I anticipate her going home on Thursday. She states that she hada stress test and other cardiac workup at [place], please see if you can find results in [facility]. She had an EGD with anesthesia this past Thursday and has her PAT appointment coming up on Thursday. I really do not see the need for PAT appointment if she has a negative cardiac workup and was just seen by anesthesia on Thursday, please verify and if so lets cancel her appointment for Thursday PAT Thanks Once we figure this out please let her know through a phone call what we did, she does not use MyChart [id number] Note* Care Coordination - Ania Box RN - 08/25/2023 11:04 AM EDT Pt did have bm. Plan for discharge to home today. She denies any needs from tcc. [id number] Note* Care Coordination - Ania Box RN - 08/25/2023 11:04 AM EDT Pt did have bm. Plan for discharge to home today. She denies any needs from tcc. [id number] Miscellaneous Notes* Care Coordination - Ania Box RN - 08/25/2023 11:04 AM EDT Pt did have bm. Plan for discharge to home today. She denies any needs from tcc. * Care Coordination - Piyush Zaragoza MD - 08/25/2023 7:37 AM EDT Patient had bowel movement yesterday Denies any abdominal pain, nausea, vomiting No chest pain, shortness of breath Afebrile, vital signs stable Accu-Cheks reviewed No lab data from today Plan DC home today Endocrinology team recommended to discontinue Ozempic. Recommended to continue glimepiride, startedmetformin 500 mg p.o. twice daily at the time of discharge. Full discharge summary to follow * Care Plan - Jeannine Palafox RN - 08/25/2023 2:19 AM EDT Problem: Pain - Adult Goal: Verbalizes/displays adequate comfort level or baseline comfort level Outcome: Progressing Problem: Safety - Adult Goal: Free from fall injury Outcome: Progressing Problem: Discharge Planning Goal: Discharge to home or other facility with appropriate resources Outcome: Progressing Problem: Chronic Conditions and Co-morbidities Goal: Patient's chronic conditions and co-morbidity symptoms are monitored and maintained or improved Outcome: Progressing * Care Coordination - Ania Box RN - 08/24/2023 10:48 AM EDT Images from the original note were not included. Care Management Progress Note Pt remains on H5 s/p flexible sigmoidoscopy with dilation of stricture on 08/22/23. Pt has been advanced to soft diet. Endocrine is following. Surgery has signed off but medicine is waiting for return of bowel function with bm. Pt denies any needs from tcc. Anticipate dc to home 1-2 days. Discharge Milestones and Delays Expected date/time: 08/24/2023 Expected discharge disposition: Home or Self Care Discharge Milestones Place discharge order Complete med reconciliation Case mgmt discharge readiness Clinical Stability Diagnostic Workup Facility Choice Selection Test Results Patient Education Complete Expected Discharge History Expected Date/Time Set By Reviewed At 08/24/2023 Ania Box RN 08/24/2023 6:43 AM 08/24/2023 SANTI Condon CNP 08/21/2023 9:15 PM 08/24/2023 Татьяна Mckay APRN DANNI 08/21/2023 8:35 PM Length of Stay (Days): 3 GMLOS: 2.3 * Care Plan - Jeannine Palafox RN - 08/24/2023 1:17 AM EDT Problem: Pain - Adult Goal: Verbalizes/displays adequate comfort level or baseline comfort level Outcome: Progressing Problem: Safety - Adult Goal: Free from fall injury Outcome: Progressing Problem: Discharge Planning Goal: Discharge to home or other facility with appropriate resources Outcome: Progressing Problem: Chronic Conditions and Co-morbidities Goal: Patient's chronic conditions and co-morbidity symptoms are monitored and maintained or improved Outcome: Progressing * Care Plan - Luis Walker RN - 08/23/2023 1:45 AM EDT Problem: Pain - Adult Goal: Verbalizes/displays adequate comfort level or baseline comfort level Outcome: Progressing Problem: Safety - Adult Goal: Free from fall injury Outcome: Progressing Problem: Discharge Planning Goal: Discharge to home or other facility with appropriate resources Outcome: Progressing Problem: Chronic Conditions and Co-morbidities Goal: Patient's chronic conditions and co-morbidity symptoms are monitored and maintained or improved Outcome: Progressing * Care Coordination - Lizbeth Valdez RN - 08/22/2023 5:50 PM EDT Care Managment Initial Assessment Date: 08/22/2023 Patient Name: Sheyla Ramirez : 1945 Patient Information Source of Information: Patient Cognition/Language: WFL - Within Functional Limits Permission given to speak with patient community service representative/caregiver as indicated: No Confirmation of Payer with patient/family: Yes Payer Name: Medicare [place]: No Confirmation of Primary Care Physician: Confirmed PCP Name: Dr. Thorne Seen in last 2 years?: Yes Primary Caregiver: Self If assistance needed, confirmed caregiver ready, willing and able to care for patient at discharge: Confirmed with: Living Arrangements Current Residence: House Number of Floors 1 Number of Entry Steps: 2 Bed/Bath Levels: Both first floor Facility: Facility Name: Plan to Return: Lives with: Alone Support Systems: Family members, Friends/neighbors Activities of Daily Living Ambulation: Independent Bathing/Dressing: Independent Elimination/Continence/Toileting: Independent Feeding: Independent Who Assists with Activities of Daily Living: Instrumental Activities of Daily Living Prescription Coverage: Yes Pharmacy Used: [facility] Medication Management: Independent Transportation/Shopping: Independent Transportation Mode: Car Needs Assistance with Transportation at Discharge: No (Friend Bonnie to transport) Meal Preparation: Independent Laundry/Cleaning: Independent Finances/Bill Paying: Independent Communication: Independent Types of Care Services/Equipment Utilized Care Services: Dialysis Type: Durable Medical Equipment: Patient's Goal/Discharge Plan Patient expects to be discharged to: Home Discharge Planning Actions: No needs identified Patient's Choice Rights and [employer] and Collaborative Relationships Disclosed as Indicated for Post-Acute Care: Interdisciplinary Team Engagement: Social Work Referral for: Additional Information: Called into patient's room, Introduced self and role. Discussed discharge planning. Patient has insurance and prescription coverage. Patient lives alone and has transportation available upon discharge. Discharge plan is home, no needs anticipated. Patient verbalized understanding of discharge plan and agrees with plan. Lizbeth Valdez RN * Care Plan - Macario Kelly RN - 08/22/2023 2:49 PM EDT Problem: Pain - Adult Goal: Verbalizes/displays adequate comfort level or baseline comfort level Outcome: Progressing Problem: Safety - Adult Goal: Free from fall injury Outcome: Progressing Problem: Discharge Planning Goal: Discharge to home or other facility with appropriate resources Outcome: Progressing Problem: Chronic Conditions and Co-morbidities Goal: Patient's chronic conditions and co-morbidity symptoms are monitored and maintained or improved Outcome: Progressing * Perioperative Nursing Note - Garima Powell RN - 08/22/2023 8:35 AM EDT POST ENDOSCOPY PROCEDURE TRANSFER REPORT Physician: Rocio Procedure completed: Flexible sigmoidoscopy Specimens obtained: none Medications administered: propofol 130mg Findings: see MD note Complications: none Report called to H5 RN Please call the Main Endoscopy Dept at [phone] for questions. * Op Note - Val Chan MD - 08/22/2023 7:13 AM EDT Endoscopy Center- [facility] Patient Name: Sheyla Ramirez Procedure Date: 08/22/2023 7:13 AM Gender: Female Date of : 1945 Age: 77 Admit Type: Inpatient Note Status: Finalized Endoscopist: Val Chan MD, [id number] Procedure: Flexible Sigmoidoscopy Indications: LLQ abd pain, constipation, concern for anastomotic stricture Findings: There was evidence of a prior end-to-end colo-rectal anastomosis in the rectum. This was patent and was characterized by healthy appearing mucosa. The anastomosis was traversed. No stricture present Impression: - Preparation of the colon was poor. - Patent end-to-end colo-rectal anastomosis, characterized by healthy appearing mucosa. - No specimens collected. Recommendation: - Continue present medications. - High fiber diet. - Consult GI - colorectal surgery will sign off Medicines: Propofol per Anesthesia Procedure: Pre-Anesthesia Assessment: - Prior to the procedure, a History and Physical was performed, and patient medications and allergies were reviewed. The patient's tolerance of previous anesthesia was also reviewed. The risks and benefits of the procedure and the sedation options and risks were discussed with the patient. All questions were answered, and informed consent was obtained. Prior Anticoagulants: The patient has taken no anticoagulant or antiplatelet agents. ASA Grade Assessment: II - A patient with mild systemic disease. After reviewing the risks and benefits, the patient was deemed in satisfactory condition to undergo the procedure. After obtaining informed consent, the endoscope was passed under direct vision. Throughout the procedure, the patient's blood pressure, pulse, and oxygen saturations were monitored continuously. The Colonoscope was introduced through the anus and advanced to the descending colon. The flexible sigmoidoscopy was accomplished without difficulty. The patient tolerated the procedure well. The quality of the bowel preparation was poor. Complications: No immediate complications. Procedure Code(s): --- Professional --- 62767, Sigmoidoscopy, flexible; diagnostic, including collection of specimen(s) by brushing or washing, when performed (separate procedure) --- Technical --- 32585, Sigmoidoscopy, flexible; diagnostic, including collection of specimen(s) by brushing or washing, when performed (separate procedure) CPT copyright 2021 [employer]. All rights reserved. The codes documented in this report are preliminary and upon assembler clip on sunglasses review may be revised to meet current compliance requirements. Attending Participation: I personally performed the entire procedure. Val Chan MD 08/22/2023 8:33:22 AM This report has been signed electronically. Number of Addenda: 0 Note Initiated On: 08/22/2023 7:13 AM * Care Plan - Loly Andres RN - 08/22/2023 1:15 AM EDT The patient is Moderately Stable - Low risk of patient condition declining or worsening The patient's goals for the shift include comfort/nausea control The clinical goals for the shift include comfort Problem: Pain - Adult Goal: Verbalizes/displays adequate comfort level or baseline comfort level Outcome: Progressing Problem: Safety - Adult Goal: Free from fall injury Outcome: Progressing Problem: Discharge Planning Goal: Discharge to home or other facility with appropriate resources Outcome: Progressing Problem: Chronic Conditions and Co-morbidities Goal: Patient's chronic conditions and co-morbidity symptoms are monitored and maintained or improved Outcome: Progressing documented in this [facility]07-09-2024 NoteDischarge Summary Sheyla Ramirez : 1945 ADMIT DATE: 08/21/2023 DISCHARGE DATE: 08/25/2023 PRIMARY CARE PHYSICIAN: LENA THORNE VISIT STATUS: Admission CODE STATUS: Full Code DISCHARGE DIAGNOSES: Acute problems--- Left lower quadrant pain, prior history of diverticulitis, status post sigmoid colectomy, status post flexible sigmoidoscopy which showed no stenosis, prior anastomosis appeared well and open. Chronic issue--- DM Hypertension Hyperlipidemia GERD/hiatal hernia HOSPITAL COURSE: 77-year-old female past medical history of sigmoid diverticulitis status post sigmoid colectomy, DM, gout, hypertension, hyperlipidemia. Admitted following left lower quadrant pain, nausea. Workup during this admission showed LFT panel/lipase, CBC panel normal. Lactic acid 0.7, urine analysis negative. CT scan of abdomen/pelvis done on 08/21/2023 showed findings suspicious for cholelithiasis. No other acute finding or significant interval changes noted. Abdominal ultrasonogram showed no evidence of cholelithiasis or cholecystitis. Mild dilatation of common bile duct measuring up to 9 mm. Patient was evaluated for left lower quadrant pain, prior history of diverticulitis, status post sigmoid colectomy, seen by surgical team, imaging studies done as mentioned above, patient also had flexible sigmoidoscopy which showed no stenosis, prior anastomosis appeared well and open. Diet was gradually advanced patient was tolerating well. She also had bowel movement prior to discharge. She will be continued with MiraLAX 17 g p.o. daily. Patient was also seen by Dr. Kruse, she will be followed as outpatient on 08/28/2023 for evaluation of hiatal hernia surgery. Patient was also seen by endocrinology team for concern of bowel obstruction secondary to Ozempic. Endocrinology team recommended to discontinue Ozempic, recommended to continue glimepiride, patient was also started on metformin 500 mg p.o. twice daily. She will follow-up with Dr. Bhakta as outpatient for further management of DM. On the day of discharge denies new symptom, afebrile, vital signs stable On examination--HEENT: Eyes: No scleral icterus Oral: Tongue is semi-moist Cardiovascular: S1S2 heard, RRR Respiratory: Clear to auscultation bilaterally anteriorly Abdomen: Soft, non-tender, non-distended, no mass palpable with normal bowel sounds. Neurology- Awake alert, answering questions No focal neurology noted Extremity- no significant peripheral edema both lower extremities CONSULTANTS: General surgery, endocrinology RECOMMENDED NEXT STEPS: Follow-up with surgery team on 08/28/2023 Metformin 500 mg p.o. twice daily was started DISCHARGE MEDICATIONS: Medication List START taking these medications metFORMIN 500 MG tablet Commonly known as: Glucophage Take 1 tablet (500 mg) by mouth in the morning and 1 tablet (500 mg) in the evening. Take with meals. CHANGE how you take these medications glimepiride 4 MG tablet Commonly known as: Amaryl What changed: when to take this polyethylene glycol (PEG) 3350 17 g packet Commonly known as: Miralax Take 17 g by mouth daily. What changed: how much to take when to take this Another medication with the same name was removed. Continue taking this medication, and follow the directions you see here. CONTINUE taking these medications atorvastatin 10 MG tablet Commonly known as: Lipitor brimonidine 0.2 % ophthalmic solution Commonly known as: AlphaGAN lansoprazole [address] capsule Commonly known as: Prevacid latanoprost 0.005 % ophthalmic solution Commonly known as: Xalatan losartan 25 MG tablet Commonly known as: Cozaar STOP taking these medications cyclobenzaprine 10 MG tablet Commonly known as: Flexeril docusate sodium 100 MG capsule Commonly known as: Colace ondansetron 4 MG tablet Commonly known as: Zofran OZEMPIC (1 MG/DOSE) SC Where to Get Your Medications You can get these medications from any pharmacy Bring a paper prescription for each of these medications metFORMIN 500 MG tablet Information about where to get these medications is not yet available Ask your nurse or doctor about these medications polyethylene glycol (PEG) 3350 17 g packet DIET: Adult diet Regular ACTIVITY: No restriction. COMPLEXITY OF FOLLOW UP: [] Moderate Complexity: follow up within 7-14 calendar days (85220) [] Severe Complexity: follow up within 7 calendar days (97897) FOLLOW UP TESTING, PENDING RESULTS OR REFERRALS AT TRANSITIONAL CARE VISIT: [] Yes [] No PENDING STUDIES: DISPOSITION: Home FACILITY/HOME CARE AGENCY NAME: Follow up with Lena Thorne [address] [facility] [phone] Schedule an appointment as soon as possible for a visit in 1 week(s) Sylvester Bhakta MD [address] [place] (more content not included)...[facility]07-09-2024 Hospital course Narrative* Piyush Zaragoza MD - 08/25/2023 7:40 AM EDT Discharge Summary Sheyla Ramirez : 1945 ADMIT DATE: 08/21/2023 DISCHARGE DATE: 08/25/2023 PRIMARY CARE PHYSICIAN: LENA THORNE VISIT STATUS: Admission CODE STATUS: Full Code DISCHARGE DIAGNOSES: Acute problems--- Left lower quadrant pain, prior history of diverticulitis, status post sigmoid colectomy, status post flexible sigmoidoscopy which showed no stenosis, prior anastomosis appeared well and open. Chronic issue--- DM Hypertension Hyperlipidemia GERD/hiatal hernia HOSPITAL COURSE: 77-year-old female past medical history of sigmoid diverticulitis status post sigmoid colectomy, DM, gout, hypertension, hyperlipidemia. Admitted following left lower quadrant pain, nausea. Workup during this admission showed LFT panel/lipase, CBC panel normal. Lactic acid 0.7, urine analysis negative. CT scan of abdomen/pelvis done on 08/21/2023 showed findings suspicious for cholelithiasis. No other acute finding or significant interval changes noted. Abdominal ultrasonogram showed no evidence of cholelithiasis or cholecystitis. Mild dilatation of common bile duct measuring up to 9 mm. Patient was evaluated for left lower quadrant pain, prior history of diverticulitis, status post sigmoid colectomy, seen by surgical team, imaging studies done as mentioned above, patient also had flexible sigmoidoscopy which showed no stenosis, prior anastomosis appeared well and open. Diet was gradually advanced patient was tolerating well. She also had bowel movement prior to discharge. She will be continued with MiraLAX 17 g p.o. daily. Patient was also seen by Dr. Kruse, she will be followed as outpatient on 08/28/2023 for evaluation of hiatal hernia surgery. Patient was also seen byendocrinology team for concern of bowel obstruction secondary to Ozempic. Endocrinology team recommended to discontinue Ozempic, recommended to continue glimepiride, patient was also started on metformin 500 mg p.o. twice daily. She will follow-up with Dr. Bhakta as outpatient for further management of DM. On the day of discharge denies new symptom, afebrile, vital signs stable On examination--HEENT: Eyes: No scleral icterus Oral: Tongue is semi-moist Cardiovascular: S1S2 heard, RRR Respiratory: Clear to auscultation bilaterally anteriorly Abdomen: Soft, non-tender, non-distended, no mass palpable with normal bowel sounds. Neurology- Awake alert, answering questions No focal neurology noted Extremity- no significant peripheral edema both lower extremities CONSULTANTS: General surgery, endocrinology RECOMMENDED NEXT STEPS: Follow-up with surgery team on 08/28/2023 Metformin 500 mg p.o. twice daily was started DISCHARGE MEDICATIONS: Medication List START taking these medications metFORMIN 500 MG tablet Commonly known as: Glucophage Take 1 tablet (500 mg) by mouth in the morning and 1 tablet (500 mg) in the evening. Take with meals. CHANGE how you take these medications glimepiride 4 MG tablet Commonly known as: Amaryl What changed: when to take this polyethylene glycol (PEG) 3350 17 g packet Commonly known as: Miralax Take 17 g by mouth daily. What changed: how much to take when to take this Another medication with the same name was removed. Continue taking this medication, and follow the directions you see here. CONTINUE taking these medications atorvastatin 10 MG tablet Commonly known as: Lipitor brimonidine 0.2 % ophthalmic solution Commonly known as: AlphaGAN lansoprazole [address] capsule Commonly known as: Prevacid latanoprost 0.005 % ophthalmic solution Commonly known as: Xalatan losartan 25 MG tablet Commonly known as: Cozaar STOP taking these medications cyclobenzaprine 10 MG tablet Commonly known as: Flexeril docusate sodium 100 MG capsule Commonly known as: Colace ondansetron 4 MG tablet Commonly known as: Zofran OZEMPIC (1 MG/DOSE) SC Where to Get Your Medications You can get these medications from any pharmacy Bring a paper prescription for each of these medications metFORMIN 500 MG tablet Information about where to get these medications is not yet available Ask your nurse or doctor about these medications polyethylene glycol (PEG) 3350 17 g packet DIET: Adult diet Regular ACTIVITY: No restriction. COMPLEXITY OF FOLLOW UP: [] Moderate Complexity: follow up within 7-14 calendar days (93135) [] Severe Complexity: follow up within 7 calendar days (78713) FOLLOW UP TESTING, PENDING RESULTS OR REFERRALS AT TRANSITIONAL CARE VISIT: [] Yes [] No PENDING STUDIES: DISPOSITION: Home FACILITY/HOME CARE AGENCY NAME: Follow up with Lena Thorne [address] [facility] [address] [facility] [phone] Schedule an appointment as soon as possible for a visit in 1 week(s) Sylvester Bhakta MD [address] [phone] Schedule an appointment as soon as possible for a visit in 2 week(s) Julian Kruse MD [address] [facility] [address] [facility] [phone] Schedule an appointment as soon as possible for a visit on 08/28/2023 INSTRUCTIONS TO MA/SW: Please call patient on day after discharge (must document patient contacted within 2 business days of discharge). FOLLOW UP QUESTIONS FOR MA/SW: 1. Did you get medications filled and taking them as instructed from discharge? 2. Are you following your discharge instructions from your hospital stay? 3. Please confirm patient is scheduled for a follow up appointment within the above time frame. DISCHARGE TIME: > 30 minutes SIGNED: Piuysh Zaragoza MD 08/25/2023, 7:40 AM documented in this [facility]07-09-2024 Note* Care Coordination - Piyush Zaragoza MD - 08/25/2023 7:37 AM EDT Patient had bowel movement yesterday Denies any abdominal pain, nausea, vomiting No chest pain, shortness of breath Afebrile, vital signs stable Accu-Cheks reviewed No lab data from today [facility] today Endocrinology team recommended to discontinue Ozempic. Recommended to continue glimepiride, startedmetformin 500 mg p.o. twice daily at the time of discharge. [id number]* Care Coordination - Piyush Zaragoza MD - 08/25/2023 7:37 AM EDT Patient had bowel movement yesterday Denies any abdominal pain, nausea, vomiting No chest pain, shortness of breath Afebrile, vital signs stable Accu-Cheks reviewed No lab data from today [facility] Endocrinology team recommended to discontinue Ozempic. Recommended to continue glimepiride, startedmetformin 500 mg p.o. twice daily at the time of discharge. Full discharge summary to follow [place] [id number] Plan of care note* Care Plan - Jeannine Palafox RN - 08/25/2023 2:19 AM EDT Problem: Pain - Adult Goal: Verbalizes/displays adequate comfort level or baseline comfort level Outcome: Progressing Problem: Safety - Adult Goal: Free from fall injury Outcome: Progressing Problem: Discharge Planning Goal: Discharge to home or other facility with appropriate resources Outcome: Progressing Problem: Chronic Conditions and Co-morbidities Goal: Patient's chronic conditions and co-morbidity symptoms are monitored and maintained or improved Outcome: Progressing [id number] Telephone encounter Note* Telephone Encounter - Ana Bernal MA - 08/24/2023 11:13 AM EDT Faxed letter to dr hunt office , fax#: [phone]. [facility] [id number] Miscellaneous Notes* Telephone Encounter - Ana Bernal MA - 08/24/2023 11:13 AM EDT Faxed letter to dr hunt office , fax#: [phone]. * Telephone Encounter - Jenae Vásquez MD - 08/24/2023 10:48 AM EDT Ana , can you please [facility] the [facility] and fax to the following number [phone] Bhakta , I am writing about mutual patient Sheyla Santo 1945 who was seen by me at [facility] when she was hospitalized for partial bowel obstruction. These are her discharge medication regimen for diabetes. Her renal functions have been normal at the time of discharge. -Ozempic has been stopped in view of concerns that it could have contributed to hypomotility. -Glimepiride 4 mg bid with meals has been resumed -Metformin 500 mg bid with meals has been started Please let me know if you have any questions or concerns -I have attached our phone number for yourreference. Thanks Jenae Vásquez MD [facility] Endocrinology Phone number: [phone] documented in this encounterSMiami Valley HospitalUdlhbp83-39-5910 Note* Care Coordination - Ania Box RN - 08/24/2023 10:48 AM EDT Images from the original note were not included. Care Management Progress Note Pt remains on H5 s/p flexible sigmoidoscopy with dilation of stricture on 08/22/23. Pt has been advanced to soft diet. Endocrine is following. Surgery has signed off but medicine is waiting for return of bowel function with bm. Pt denies any needs from tcc. Anticipate dc to home 1-2 days. Discharge Milestones and Delays Expected date/time: 08/24/2023 Expected discharge disposition: Home or Self Care Discharge Milestones Place discharge order Complete med reconciliation Case mgmt discharge readiness Clinical Stability Diagnostic Workup Facility Choice Selection Test Results Patient Education Complete Expected Discharge History Expected Date/Time Set By Reviewed At 08/24/2023 Ania Box RN 08/24/2023 6:43 AM 08/24/2023 SANTI Condon CNP 08/21/2023 9:15 PM 08/24/2023 SANTI Condon CNP 08/21/2023 8:35 PM Length of Stay (Days): 3 GMLOS: 2.3 [facility] [id number] Note* Care Coordination - Ania Box RN - 08/24/2023 10:48 AM EDT Images from the original note were not included. Care Management Progress Note Pt remains on H5 s/p flexible sigmoidoscopy with dilation of stricture on 08/22/23. Pt has been advanced to soft diet. Endocrine is following. Surgery has signed off but medicine is waiting for return of bowel function with bm. Pt denies any needs from tcc. Anticipate dc to home 1-2 days. Discharge Milestones and Delays Expected date/time: 08/24/2023 Expected discharge disposition: Home or Self Care Discharge Milestones Place discharge order Complete med reconciliation Case mgmt discharge readiness Clinical Stability Diagnostic Workup Facility Choice Selection Test Results Patient Education Complete Expected Discharge History Expected Date/Time Set By Reviewed At 08/24/2023 Ania Box RN 08/24/2023 6:43 AM 08/24/2023 SANTI Condon CNP 08/21/2023 9:15 PM 08/24/2023 SANTI Condon CNP 08/21/2023 8:35 PM Length of Stay (Days): 3 GMLOS: 2.3 T [facility] [id number] NoteCare Management Progress Note Pt remains on H5 s/p flexible sigmoidoscopy with dilation of stricture on 08/22/23. Pt has been advanced to soft diet. Endocrine is following. Surgery has signed off but medicine is waiting for return of bowel function with bm. Pt denies any needs from tcc. Anticipate dc to home 1-2 days. Discharge Milestones and Delays Expected date/time: 08/24/2023 Expected discharge disposition: Home or Self Care Discharge Milestones Place discharge order Complete med reconciliation Case mgmt discharge readiness Clinical Stability Diagnostic Workup Facility Choice Selection Test Results Patient Education Complete Expected Discharge History Expected Date/Time Set By Reviewed At 08/24/2023 Ania Box RN 08/24/2023 6:43 AM 08/24/2023 SANTI Condon CNP 08/21/2023 9:15 PM 08/24/2023 SANTI Condon CNP 08/21/2023 8:35 PM Length of Stay (Days): 3 [facility] Tele[facility] encounter Note* Telephone Encounter - Jenae Vásquez MD - 08/24/2023 10:48 AM EDT Ana , can you please attach the following on [facility] letter head and fax to the following number [phone] . Thanks Dear Dr Bhakta , I am writing about mutual patient Sheyla Santo 1945 who was seen by me at [facility] when she was hospitalized for partial bowel obstruction. These are her discharge medication regimen for diabetes. Her renal functions have been normal at the time of discharge. -Ozempic has been stopped in view of concerns that it could have contributed to hypomotility. -Glimepiride 4 mg bid with meals has been resumed -Metformin 500 mg bid with meals has been started Please let me know if you have any questions or concerns -I have attached our phone number for yourreference. Thanks Jenae Vásquez MD [facility] Endocrinology Phone number: [phone] [facility] CenterFkxzbr23-83-9401 History of Present illness Narrative* Jenae Vásquez MD - 08/24/2023 10:40 AM EDT Department of Internal Medicine Division of Endocrinology, Diabetes, & Metabolism Endocrinology Note Patient Name: Sheyla Ramirez : 1945 AGE: 77 y.o. Room[facility]Bed: [facility] A Admission Date: 08/21/2023 Visit Date: 08/24/2023 Reason for Endocrine Consult: dm-managed on ozempic , due to have hiatal hernia surgery soon. 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 Concern for partial large bowel obstruction HLD Hiatal hernia PLAN: Current sugars are well controlled , continue current regimen of low dose sliding scale with meals ICU goal <180 GMF goal <150 POCT BG ACHS Hypoglycemia management per protocol Carb controlled diet Recent TSH is normal ANTICIPATED ENDOCRINE HOME GOING RECOMMENDATIONS: Optimized for Discharge from Endocrine standpoint: Yes Home Going Endocrine Rx Recommendations-- Stop ozempic Resume home regimen of glimepiride Start metformin 500 mg bid with meals Outpt Follow Up-- With Dr Bhakta SUBJECTIVE/HPI: CHIEF COMPLAINT: Chief Complaint Patient presents with Abdominal Pain Patient was seen in ER yesterday where she was told she should stay for possible bowel obstruction,she decided to leave because she felt better but is now back with Abdominal pain Patient with history of Type 2 dm not on insulin , Mixed hyperlipidemia history of laparoscopic sigmoid colectomy for diverticulitis. 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 Type of DM: 2 Onset of DM: age 55 Home DM Medication Regimen: Ozempic 1 mg weekly , glimepiride 4 mg bid DM control (last A1c/glucose data): 8.4% on current admission Pertinent History of bowel obstruction in 2019 and history of laparoscopic sigmoid colectomy for diverticulitis in 2010 No known micro or macrovascular complications from diabetes Patient checks her sugar with a glucometer - overall sugars are <180 Prior medications for diabetes: Actos - weight gain , Jardiance - UTI and excoriation of skin of perineum Never been on metformin in the past She follows strict dietary changes at home. Follows low carb and limits calories to 1200/day 08/23: Patient seen at bedside with her friend Patient endorses to constipation. Has taken a suppository this morning. Has been passing flatus. No nausea or vomiting. Appetite has been fair. Discussed about stopping ozempic on discharge since cause for bowel obstruction has been unclear., concern that ozempic contributed to hypomotility. Patient is agreeable Discussed about use of metformin on discharge, Patient has not used this before. Discussed about possible GI side effects. Patient does not prefer swallowing pills. Discussed about crushing medicine and advised to take with meals . Patient and her friend would like to follow up with [facility] endocrine until her hernia surgery later this month. She follows with endocrine Dr Bhakta in [place] but will not be able to see her until next month and would like to have endocrine on board in [facility] in the meantime. Phone number for endocrine clinic given Advised to check sugars tid before meals and send sugar logs via my chart in 1 week. Call back parameters discussed as well Glucose Date/Time Value Ref Range Status 08/24/2023 07:24 AM 132 (H) 70 - 100 mg/dL Final 08/23/2023 08:00 PM 170 (H) 70 - 100 mg/dL Final 08/23/2023 06:17 PM 143 (H) 70 - 100 mg/dL Final 08/23/2023 01:23 PM 133 (H) 70 - 100 mg/dL Final 08/23/2023 08:23 AM 101 (H) 70 - 100 mg/dL Final 08/22/2023 08:28 PM 113 (H) 70 - 100 mg/dL Final Review of Systems ROS negative except for those mentioned in HPI. OBJECTIVE: Vitals: 08/22/23 1647 08/23/23 0530 08/23/23 1821 08/24/23 0557 BP: 115/61 136/73 151/80 144/78 BP Location: Left arm Left arm Left arm Patient Position: Sitting Lying Pulse: 81 77 88 79 Resp: 16 16 18 16 Temp: 36.7 C (98 F) 36.4 C (97.5 F) 36.8 C (98.3 F) 36.7 C (98.1 F) TempSrc: Temporal Temporal Temporal Temporal SpO2: 96% 97% 97% 99% Weight: Height: Physical Exam Vitals and nursing note reviewed. Constitutional: Appearance: Normal appearance. Comments: Ambulating around the room HENT: Head: Normocephalic and atraumatic. Skin: General: Skin is dry. Neurological: General: No focal deficit present. Mental Status: She is alert and oriented to person, place, and time. Psychiatric: Mood and Affect: Mood normal. Behavior: Behavior normal. 24 hour intake/output:No intake or output data in the 24 hours ending 08/24/23 1040 Diet: Adult diet Regular Medications (as per EMR): HomeMeds: Current Outpatient Medications Medication Instructions atorvastatin (LIPITOR) 10 mg, Oral, Daily brimonidine (AlphaGAN) 0.2 % ophthalmic solution 1 drop, 2 times daily cyclobenzaprine (FLEXERIL) 10 mg, Oral docusate sodium (COLACE) 100 mg, Oral, Every 12 hours glimepiride (AMARYL) 4 mg, Oral, Daily before breakfast lansoprazole (Prevacid) [address] capsule Oral, Daily before breakfast, Do not crush or chew. latanoprost (Xalatan) 0.005 % ophthalmic solution INSTILL 1 DROP INTO BOTH EYES ONCE A DAY losartan (Cozaar) 25 MG tablet Oral polyethylene glycol (PEG) 3350 (MIRALAX) 17 g, Oral, Daily Semaglutide (OZEMPIC, 1 MG/DOSE, SC) 1 mg, SubCUTAneous, Weekly Scheduled Meds:atorvastatin, 10 mg, Oral, Daily bisacodyl, 10 mg, Rectal, Daily brimonidine, 1 drop, Both Eyes, BID insulin lispro, 0-6 Units, SubCUTAneous, TID WC lansoprazole, 30 mg, Oral, qAM AC latanoprost, 1 drop, Both Eyes, Nightly losartan, 25 mg, Oral, Daily polyethylene glycol (PEG) 3350, 17 g, Oral, Daily Continuous Infusions: PRN Meds:PRN medications: acetaminophen OR acetaminophen, dextrose, dextrose, glucagon (rDNA), glucose, ondansetron ODT OR ondansetron Diagnostic Workup: I reviewed pertinent Laboratory results, Radiographic results, and Other Clinical Notes at the timeof today's encounter. Labs: No components found for: LABA1C No components found for: EAG Lab Results Component Value Date NA 138 08/23/2023 K 4.0 08/23/2023 CL 108 (H) 08/23/2023 CO2 23 08/23/2023 BUN 8 08/23/2023 CREATININE 0.58 08/23/2023 GLUCOSE 96 08/23/2023 CALCIUM 9.2 08/23/2023 No results found for: CHLPL, CHOL No results found for: TRIG No results found for: HDL No results found for: LDLCALC No results found for: VLDL No results found for: CHOLHDLRATIO No results found for: [id number] Lab Results Component Value Date TSH 1.130 08/23/2023 Radiology reportsas per the Radiologist Radiology: POCT glucose meter Result Date: 08/22/2023 Performed by: [facility], [address] [place] [address] CLIA ID: [id number] POCT glucose meter Result Date: 08/22/2023 Performed by: [facility], [address] [place] [address] CLIA ID: [id number] US abdomen complete Result Date: 08/22/2023 Patient Name: SHEYLA RAMIREZ : 1945 [facility]#: [id number] Exam Date/Time: 08/22/2023 13:08 Procedure: US ABDOMEN COMPLETE Ordering Provider: ZARAGOZA VENKATESH Reason For Exam: Abdominal pain, gallbladder sludge EXAM TYPE: Ultrasound abdomen complete. CLINICAL HISTORY: Abdominal pain, gallbladder sludge COMPARISON: None. TECHNIQUE: Grayscale sonographicimages were obtained of the abdomen. Color Doppler was utilized. FINDINGS: Liver: The liver is normal in contour and echogenicity with no focal hepatic masses. No intra hepatic biliary ductal dilatation is identified. The common bile duct is dilated for the patient's age and measures 9 mm in diameter. Gallbladder: The gallbladder is unremarkable with no gallbladder wall thickening, pericholecystic fluid, or gallstones. No sonographic Mejia sign was elicited. Kidneys: Both kidneys are normal in contour, echogenicity, and size with no hydronephrosis or shadowing renal calculi. The right kidneymeasures 12.7 cm in length. The left kidney measures 10.9 cm in length. Accessory structures: The spleen is nonenlarged. The visualized portions of the pancreas are normal. The proximal aorta and [facility]Care normal in caliber. 1. No cholelithiasis or evidence of acute cholecystitis. 2. Mild dilatation of the common bile ductmeasuring up to 9 mm. Recommend correlation with LFTs for evidence of obstruction. MRI/MRCP could be considered for further evaluation. Report Dictated on Electronically Signed By: Zi Simms DR Electronically Signed Date/Time: 08/22/2023 1:15 PM EDT POCT glucose meter Result Date: 08/22/2023 Performed by: [facility], [address] [place] [address] CLIA ID: [id number] POCT glucose meter Result Date: 08/22/2023 Performed by: [facility], [address] [place] [address] CLIA ID: [id number] POCT glucose meter Result Date: 08/22/2023 Performed by: [facility], [address] [place] [address], [facility] [address] CLIA ID: [id number] POCT glucose meter Result Date: 08/22/2023 Performed by: [facility] [place] [facility], [address] [place] [address], [place] [address] CLIA ID: [id number] POCT glucose meter Result Date: 08/22/2023 Performed by: [facility] [place] [facility], [address] [place] [address], [facility] [address] CLIA ID: [id number] POCT glucose meter Result Date: 08/21/2023 Performed by: [facility] [place] [facility], [address] [place] [address], [place] [address] CLIA ID: [id number] CT abdomen pelvis w contrast Result Date: 08/21/2023 Patient Name: SHEYLA RAMIREZ : 1945 Exam Date/Time: 08/21/2023 16:58 Procedure: CT ABDOMEN PELVIS W CONTRAST Ordering Provider: CEE LOGAN Reason For Exam: Abdominal pain, acute, nonlocalized CT ABDOMEN AND PELVIS WITH CONTRAST CLINICAL INDICATION: Abdominal pain, acute, nonlocalized TECHNIQUE: CT scan of the abdomen and pelvis, with IV contrast. Multiplanar reformations. Dose reduction was employed with automated exposure control. COMPARISON: 1 day prior. FINDINGS: Abdomen: Visualized lung bases grossly unremarkable. Subtle and amorphous hyperdensities in the hepatic portion gallbladder suspicious for gallstones. No significant pericholecystic fluid. Liver again demonstrates a rounded hypodensity in the anterior segment of right lobe measuring approximately 2.2 cm, statistically suggesting cyst or hemangioma, unchanged. Spleen without significant abnormality. Pancreas without significant abnormality. Kidneys without significant abnormality. Adrenal glands without significant abnormality. Pelvis: Postsurgical changeagain noted, including partial resection of left colon and anastomosis in the sigmoid region. Oral contrast extends to the splenic flexure of the colon without evidence of mechanical obstruction. Appe ndix not confidently identified and probably surgically absent. No significant, free peritoneal fluid or apparent adenopathy. Abdominal aorta partially calcified, but nonaneurysmal. Levoscoliotic anddegenerative change in the lumbar spine. 1. Findings suspicious for cholelithiasis. 2. No other acute findings or significant interval change. Please see above for further details. Report Dictated on Electronically Signed By: Rodríguez Franklin MD Electronically Signed Date/Time: 08/21/2023 5:35 PM EDT History/Other: Past Medical History: Past Medical History: Diagnosis Date Diabetes mellitus, type 2 (HCC) Gastro-esophageal reflux disease without esophagitis Glaucoma Hypercholesterolemia Other constipation Other intestinal obstruction unspecified as to partial versus complete obstruction (HCC) Other specified symptoms and signs involving the digestive system and abdomen Personal history of colonic polyps Past Surgical History: Past Surgical History: Procedure Laterality Date COLONOSCOPY 2019 EGD (HISTORICAL) 2019 EGD (HISTORICAL) 08/04/2023 FLEXIBLE SIGMOIDOSCOPY N/A 08/22/2023 Performed by Val Chan MD at [facility] ENDOSCOPY SIGMOID COLECTOMY (HISTORICAL) 2010 Laparoscopic sigmoid colectomy for diverticulitis Allergy(ies): Allergies Allergen Reactions Grass Pollen(K-O-R-T-Swt Todd) Unknown Molds & Smuts Unknown Lisinopril Cough Neomycin Hives Penicillins Hives Seasonal Runny nose Sulfa Antibiotics Family History: No family history on file. Social History: Social History Tobacco Use Smoking status: Never Smokeless tobacco: Never Substance Use Topics Alcohol use: Not Currently Comment: SOCIALLY Drug use: Never Portions of the information within this encounter were entered using an electronic dictation system. Best attempts were made to edit/proofread the information prior to note completion. Despite the review of information, some errors may remain. If there are questions related to the information contained within the note please contact the signing physician directly. I spent 35 minutes with the pt which involved coordination of care, medical evaluation, review of records, and/or counseling of the pt regarding his/her condition/disease state/prognosis on the date of this note. * Piyush Zaragoza MD - 08/24/2023 7:56 AM EDT Hospitalist Progress Note 08/24/2023 7:56 AM [id number]: Please page me for patient care issues. [phone]: Please page [facility] night Hospitalist for any issues. Subjective: Admit Date: 08/21/2023 PCP: LENA THORNE Room#: [id number] A Interval History: Patient seen and examined 77-year-old female past medical history of sigmoid diverticulitis status post sigmoid colectomy, DM, gout, hypertension, hyperlipidemia. Patient denies any abdominal pain, nausea, vomiting Tolerating diet Passing flatus No bowel movement No chest pain, shortness of breath, cough Lab data's / Imaging studies reviewed Accu-Cheks reviewed No lab data from today Past medical history : Past Medical History: Diagnosis Date Diabetes mellitus, type 2 (HCC) Gastro-esophageal reflux disease without esophagitis Glaucoma Hypercholesterolemia Other constipation Other intestinal obstruction unspecified as to partial versus complete obstruction (HCC) Other specified symptoms and signs involving the digestive system and abdomen Personal history of colonic polyps Adult diet Regular @[id number]@ Medications: atorvastatin, 10 mg, Oral, Daily bisacodyl, 10 mg, Rectal, Daily brimonidine, 1 drop, Both Eyes, BID insulin lispro, 0-6 Units, SubCUTAneous, TID WC lansoprazole, 30 mg, Oral, qAM AC latanoprost, 1 drop, Both Eyes, Nightly losartan, 25 mg, Oral, Daily polyethylene glycol (PEG) 3350, 17 g, Oral, Daily LABS: CBC: Recent Labs 08/21/23 1403 08/22/23 0440 08/23/23 0039 WBC 5.7 5.9 5.9 RBC 4.96 4.25 4.18 HGB 14.1 11.8 11.9 HCT 43.2 37.5 37.1 MCV 87.1 88.2 88.8 RDW 13.2 13.1 13.2 PLT 190 165 158 BMP: Recent Labs 08/21/23 1403 08/22/23 0440 08/23/23 003 NA 138 137 138 K 4.2 3.7 4.0 CL 104 106 108* CO2 26 22 23 BUN 14 10 8 CREATININE 0.66 0.63 0.58 GLUCOSE 115* 175* 96 CALCIUM 9.6 8.7 9.2 ANIONGAP 9 10 8 LIVER PROFILE: Recent Labs 08/21/23 1403 08/23/23 0039 AST 31 23 ALT 26 20 BILITOT 0.8 0.6 ALKPHOS 83 65 PROT 7.7 6.0* PT/INR: No results for input(s): PROTIME, INR in the last 72 hours. CARDIAC ENZYMES: No results for input(s): TROPONINI in the last 72 hours. Procalcitonin: No results found for: PROCAL US abdomen complete Result Date: 08/22/2023 Impression: 1. No cholelithiasis or evidence of acute cholecystitis. 2. Mild dilatation of the common bile duct measuring up to 9 mm. Recommend correlation with LFTs for evidence of obstruction. MRI/MRCP could be considered for further evaluation. Report Dictated on Electronically Signed By: Zi Simms DR Electronically Signed Date/Time: 08/22/2023 1:15 PM EDT I reviewed: [x] laboratory results [x] radiographic results At the time of today's encounter. Pt was informed about the results. Objective: Vitals: BP 144/78 (BP Location: Left arm, Patient Position: Lying) Pulse 79 Temp 36.7 C (98.1 F) (Temporal) Resp 16 Ht 5' 7 (1.702 m) Wt 150 lb (68 kg) SpO2 99% BMI 23.49 kg/m Pulse Ox: SpO2 Av % Min: 97 % Max: 99 % Supplemental O2: General appearance: No apparent distress, HEENT: Eyes: No scleral icterus Oral: Tongue is semi-moist Cardiovascular: S1S2 heard, RRR Respiratory: Clear to auscultation bilaterally anteriorly Abdomen: Soft, non-tender, non-distended, no mass palpable with normal bowel sounds. Neurology- Awake alert, answering questions No focal neurology noted Extremity- no significant peripheral edema both lower extremities Assessment Acute problems--- Left lower quadrant pain, prior history of diverticulitis, status post sigmoid colectomy, status post flexible sigmoidoscopy which showed no stenosis, prior anastomosis appeared well and open. Chronic issue--- DM Hypertension Hyperlipidemia GERD/hiatal hernia Plan Colorectal surgical recommendation noted-- Started on Dulcolax 10 mg rectal suppository, continue MiraLAX 17 g p.o. daily. Seen by endocrinology team, recommendation noted to discontinue Ozempic at the time of discharge. Patient needs to be continued with glimepiride at discharge. Continue losartan 25 mg for hypertension Monitor Accu-Chek, continue low-dose sliding scale insulin On PPI for GERD Continue rest of medication as ordered SCDs for DVT prophylaxis Patient was informed about all workup treatment plan Discharge home pending BM prior to discharge Toxic drug monitoring/narrow therapeutic index drug monitoring : # Drug name : Insulin # Route administered : Subcu # Method of monitoring : Accu-Chek Extended Emergency Contact Information Primary Emergency Contact: julian ramirez Mobile Relation: Brother Secondary Emergency Contact: ania Santo Mobile Relation: Sister Advance Directive: Full Code Discharge planning: DC home later today or in a.m., pending BM prior to discharge NOTE: This report was transcribed using voice recognition software. Every effort was made to ensureaccuracy; however, inadvertent computerized enterprise application developer errors may be present. Piyush Zaragoza MD Division of Hospitalist Medicine [facility] PAGER: Epic chat * Kandy Smith MD - 08/24/2023 6:49 AM EDT Images from the original note were not included. Department of General Surgery Surg 4 Service Daily Progress Note ADMIT DATE: 08/21/2023 TODAY'S DATE: 08/24/2023 SUBJECTIVE: No acute events overnight. Pain is controlled on current medications. Passing flatus. No BM since scope prep. ROS: Noted above unless otherwise mentioned. OBJECTIVE: VITALS: Temp: [36.7 C (98.1 F)-36.8 C (98.3 F)] 36.7 C (98.1 F) Heart Rate: [79-88] 79 Resp: [16-18] 16 BP: (144-151)/(78-80) 144/78 INTAKE/OUTPUT: No intake or output data in the 24 hours ending 08/24/23 0649 I/O last 3 completed shifts: In: 1483 (21.8 mL/kg) [P.O.:120; I.V.:1313 (19.3 mL/kg); IV Piggyback:50] Out: - (0 mL/kg) Weight: 68 kg No intake/output data recorded. PHYSICAL EXAM: Gen: NAD, A&Ox3, pain well controlled Heart: RRR, well perfused. Lungs: Symmetric chest rise, normal work of breathing, no respiratory distress. Abd: Soft, non-tender, non-distended. Ext: Non-edematous, non-erythematous, no tenderness. Skin: Warm, dry, well perfused, no obvious rashes, cellulitis or gross discoloration LABS CBC: Auto WBC Date Value Ref Range Status 08/23/2023 5.9 3.6 - 10.7 10*3/uL Final 08/22/2023 5.9 3.6 - 10.7 10*3/uL Final 08/21/2023 5.7 3.6 - 10.7 10*3/uL Final Hemoglobin Date Value Ref Range Status 08/23/2023 11.9 11.7 - 16.0 g/dL Final 08/22/2023 11.8 11.7 - 16.0 g/dL Final 08/21/2023 14.1 11.7 - 16.0 g/dL Final Platelets Date Value Ref Range Status 08/23/2023 158 140 - 440 10*3/uL Final 08/22/2023 165 140 - 440 10*3/uL Final 08/21/2023 190 140 - 440 10*3/uL Final BMP: SODIUM Date Value Ref Range Status 08/23/2023 138 135 - 145 mmol/L Final 08/22/2023 137 135 - 145 mmol/L Final 08/21/2023 138 135 - 145 mmol/L Final POTASSIUM Date Value Ref Range Status 08/23/2023 4.0 3.5 - 5.1 mmol/L Final 08/22/2023 3.7 3.5 - 5.1 mmol/L Final 08/21/2023 4.2 3.5 - 5.1 mmol/L Final CHLORIDE Date Value Ref Range Status 08/23/2023 108 (H) 98 - 107 mmol/L Final 08/22/2023 106 98 - 107 mmol/L Final 08/21/2023 104 98 - 107 mmol/L Final CARBON DIOXIDE Date Value Ref Range Status 08/23/2023 23 22 - 30 mmol/L Final 08/22/2023 22 22 - 30 mmol/L Final 08/21/2023 26 22 - 30 mmol/L Final UREA NITROGEN Date Value Ref Range Status 08/23/2023 8 7 - 17 mg/dL Final 08/22/2023 10 7 - 17 mg/dL Final 08/21/2023 14 7 - 17 mg/dL Final CREATININE Date Value Ref Range Status 08/23/2023 0.58 0.52 - 1.04 mg/dL Final 08/22/2023 0.63 0.52 - 1.04 mg/dL Final 08/21/2023 0.66 0.52 - 1.04 mg/dL Final Hepatic: AST (SGOT) Date Value Ref Range Status 08/23/2023 23 15 - 46 U/L Final 08/21/2023 31 15 - 46 U/L Final 08/20/2023 26 15 - 46 U/L Final ALT Date Value Ref Range Status 08/23/2023 20 0 - 34 U/L Final 08/21/2023 26 0 - 34 U/L Final 08/20/2023 23 0 - 34 U/L Final ALBUMIN Date Value Ref Range Status 08/23/2023 3.4 (L) 3.5 - 5.0 g/dL Final 08/21/2023 4.5 3.5 - 5.0 g/dL Final 08/20/2023 4.2 3.5 - 5.0 g/dL Final BILIRUBIN, TOTAL Date Value Ref Range Status 08/23/2023 0.6 0.2 - 1.3 mg/dL Final 08/21/2023 0.8 0.2 - 1.3 mg/dL Final 08/20/2023 0.6 0.2 - 1.3 mg/dL Final BILIRUBIN, DIRECT Date Value Ref Range Status 08/21/2023 0.0 0.0 - 0.3 mg/dL Final ALKALINE PHOSPHATASE Date Value Ref Range Status 08/23/2023 65 38 - 126 U/L Final 08/21/2023 83 38 - 126 U/L Final 08/20/2023 76 38 - 126 U/L Final Current Inpatient Medications Scheduled Meds:atorvastatin, 10 mg, Oral, Daily bisacodyl, 10 mg, Rectal, Daily brimonidine, 1 drop, Both Eyes, BID insulin lispro, 0-6 Units, SubCUTAneous, TID WC lansoprazole, 30 mg, Oral, qAM AC latanoprost, 1 drop, Both Eyes, Nightly losartan, 25 mg, Oral, Daily polyethylene glycol (PEG) 3350, 17 g, Oral, Daily Continuous Infusions: PRN Meds:PRN medications: acetaminophen OR acetaminophen, dextrose, dextrose, glucagon (rDNA), glucose, ondansetron ODT OR ondansetron ASSESSMENT: Sheyla Ramirez is a 77 y.o. female with LLQ tenderness, constipation, and PSHx of lap sigmoid 2/2 diverticulitis presenting with concern for partial large bowel obstruction. Flex Sig by colorectal team 08/21 without stenosis. PLAN: - Advance to GI soft diet, SLIV - Endocrine consult - ok to DC ozempic and restart glimepiride +/- metformin. Appreciate assistance. - Continue supportive care, working toward elective outpatient HH repair - due to see Dr Krusein the office this Thursday - RUQ US- no cholelithiasis - Pain and nausea medications PRN - ALS will follow - update 08/23 @6222 : patient is ok for discharge from General surgery perspective. General surgery will sign off, please do not hesitate to reach out with further questions or concerns. Discussed with Dr Kruse. WDW Dr Aixa Smith MD PGY-3, General Surgery Pager# [phone] 08/24/2023 6:56 AM Associated attestation - Julian Kruse MD - 08/24/2023 4:53 PM EDT Images from the original note were not included. [facility] - Surgery [facility] Physicians Surgery Patient Name: Sheyla Ramirez Date: 08/24/23 Feels well, no nausea or vomiting. Tolerating regular diet. CT reviewed. Sigmoidoscopy reviewed, noanastomotic issues. Passing flatus. BP 144/78 (BP Location: Left arm, Patient Position: Lying) Pulse 79 Temp 36.7 C (98.1 F) (Temporal) Resp 16 Ht 5' 7 (1.702 m) Wt 150 lb (68 kg) SpO2 99% BMI 23.49 kg/m CBC: Recent Labs 08/22/230 08/23/23 003 WBC 5.9 5.9 HGB 11.8 11.9 HCT 37.5 37.1 PLT 165 158 BMP: Recent Labs 08/22/230 08/23/23 003 NA 137 138 K 3.7 4.0 CL 106 108* CO2 22 23 BUN 10 8 CREATININE 0.63 0.58 GLUCOSE 175* 96 Hepatic: Recent Labs 08/23/2338 ALKPHOS 65 ALT 20 AST 23 PROT 6.0* BILITOT 0.6 Abdomen: Soft, nontender, sl. distended. Plan: Obstipation, passing flatus Normal anastomosis on sigmoidoscopy per colorectal surgery Feeling well, nausea and vomiting resolved, tolerating diet, wants to go home Milk of Magnesia Add daily fiber Okay to discharge per general surgery I personally supervised my Resident/Surgical Fellow in the evaluation and management of Sheyla العلي the development of a treatment plan for this patient. I personally interviewed the patient and performed an individual physical examination. In addition, I discussed the patient's condition and juana atment options with them. I have also reviewed and agree with the past medical, family and social history and care plan unless otherwise noted. All of the patient's questions were answered. Total time of 35 minutes spent reviewing the patient's chart, associated and relevant data including labs and imaging as well as discussing/counseling the patient regarding the care plan for this patient. The patient was seen and examined independently and relevant data reviewed by myself. A full chart review was performed. * Emma Rudd - 08/23/2023 10:39 AM EDT Nutrition rescreen completed. Patient referred to the Dietitian. A1C 8.4; Uncontrolled DM. * Piyush Zaragoza MD - 08/23/2023 8:09 AM EDT Hospitalist Progress Note 08/23/2023 8:09 AM [phone]: Please page me for patient care issues. [phone]: Please page Located within [facility] Hospitalist for any issues. Subjective: Admit Date: 08/21/2023 PCP: LENA THORNE Room#: [id number] A Interval History: Patient seen and examined 77-year-old female past medical history of sigmoid diverticulitis status post sigmoid colectomy, DM, gout, hypertension, hyperlipidemia. Patient denies any abdominal pain No chest pain, shortness of breath, cough No nausea, vomiting Had 1 episode of loose BM yesterday Lab data's / Imaging studies reviewed Accu-Cheks reviewed Potassium 4, creatinine 0.5, LFT panel normal, hemoglobin 11.9 Past medical history : Past Medical History: Diagnosis Date Diabetes mellitus, type 2 (HCC) Gastro-esophageal reflux disease without esophagitis Glaucoma Hypercholesterolemia Other constipation Other intestinal obstruction unspecified as to partial versus complete obstruction (HCC) Other specified symptoms and signs involving the digestive system and abdomen Personal history of colonic polyps Adult diet Easy to Chew @[id number]@ Medications: atorvastatin, 10 mg, Oral, Daily brimonidine, 1 drop, Both Eyes, BID docusate sodium, 100 mg, Oral, q12h insulin lispro, 0-6 Units, SubCUTAneous, TID WC lansoprazole, 30 mg, Oral, qAM AC latanoprost, 1 drop, Both Eyes, Nightly losartan, 25 mg, Oral, Daily LABS: CBC: Recent Labs 08/21/23 1403 08/22/23 0440 08/23/23 0039 WBC 5.7 5.9 5.9 RBC 4.96 4.25 4.18 HGB 14.1 11.8 11.9 HCT 43.2 37.5 37.1 MCV 87.1 88.2 88.8 RDW 13.2 13.1 13.2 PLT 190 165 158 BMP: Recent Labs 08/21/23 1403 08/22/23 0440 08/23/23 0039 NA 138 137 138 K 4.2 3.7 4.0 CL 104 106 108* CO2 26 22 23 BUN 14 10 8 CREATININE 0.66 0.63 0.58 GLUCOSE 115* 175* 96 CALCIUM 9.6 8.7 9.2 ANIONGAP 9 10 8 LIVER PROFILE: Recent Labs 08/21/23 1403 08/23/23 0039 AST 31 23 ALT 26 20 BILITOT 0.8 0.6 ALKPHOS 83 65 PROT 7.7 6.0* PT/INR: No results for input(s): PROTIME, INR in the last 72 hours. CARDIAC ENZYMES: No results for input(s): TROPONINI in the last 72 hours. Procalcitonin: No results found for: PROCAL US abdomen complete Result Date: 08/22/2023 Impression: 1. No cholelithiasis or evidence of acute cholecystitis. 2. Mild dilatation of the common bile duct measuring up to 9 mm. Recommend correlation with LFTs for evidence of obstruction. MRI/MRCP could be considered for further evaluation. Report Dictated on Electronically Signed By: Zi Simms DR Electronically Signed Date/Time: 08/22/2023 1:15 PM EDT I reviewed: [x] laboratory results [x] radiographic results At the time of today's encounter. Pt was informed about the results. Objective: Vitals: BP 136/73 (BP Location: Left arm, Patient Position: Sitting) Pulse 77 Temp 36.4 C (97.5F) (Temporal) Resp 16 Ht 5' 7 (1.702 m) Wt 150 lb (68 kg) SpO2 97% BMI 23.49 kg/m Pulse Ox: SpO2 Av.6 % Min: 95 % Max: 99 % Supplemental O2: General appearance: No apparent distress, HEENT: Eyes: No scleral icterus Oral: Tongue is semi-moist Cardiovascular: S1S2 heard, RRR Respiratory: Clear to auscultation bilaterally anteriorly Abdomen: Soft, non-tender, non-distended, no mass palpable with normal bowel sounds. Neurology- Awake alert, answering questions No focal neurology noted Extremity- no significant peripheral edema both lower extremities Assessment Acute problems-- Left lower quadrant pain, prior history of diverticulitis, status post sigmoid colectomy, status post flexible sigmoidoscopy which showed no stenosis, prior anastomosis appeared well and open. Chronic issue-- DM Hypertension Hyperlipidemia GERD Plan Discontinue IV fluid Colorectal surgical recommendation noted--Endocrinology team consulted, patient is on Ozempic, to rule out GI dysmotility secondary to Ozempic. Diet was advanced today Continue losartan 25 mg for hypertension Monitor Accu-Chek, continue low-dose sliding scale insulin PPI for GERD Patient wanted Colace to be discontinued, to be started on MiraLax daily Continue rest of medication as ordered SCDs for DVT prophylaxis Patient was informed about all workup treatment plan Discussed with nursing staff and TCC regarding management/ discharge plan. Toxic drug monitoring/narrow therapeutic index drug monitoring : # Drug name : Insulin # Route administered : Subcu # Method of monitoring : Accu-Chek Extended Emergency Contact Information Primary Emergency Contact: julian ramirez Mobile Relation: Brother Secondary Emergency Contact: ania Santo Mobile Relation: Sister Advance Directive: Full Code Discharge planning: Anticipated discharge in 1 to 2 days/pending improvement NOTE: This report was transcribed using voice recognition software. Every effort was made to ensureaccuracy; however, inadvertent computerized enterprise application developer errors may be present. Piyush Zaragoza MD Division of Hospitalist Medicine [facility] PAGER: Epic chat * Lai Cee DO - 08/23/2023 7:38 AM EDT Images from the original note were not included. Department of General Surgery Surg 4 Service Daily Progress Note ADMIT DATE: 08/21/2023 TODAY'S DATE: 08/23/2023 SUBJECTIVE: No acute events overnight. Pain is well controlled on current medications. Some flatus after negative Flex Sig. Took FLD well, ROS: Noted above unless otherwise mentioned. OBJECTIVE: VITALS: Temp: [36.3 C (97.4 F)-36.7 C (98 F)] 36.4 C (97.5 F) Heart Rate: [68-85] 77 Resp: [16-18] 16 BP: (102-136)/(56-73) 136/73 INTAKE/OUTPUT: Intake/Output Summary (Last 24 hours) at 08/23/2023 0738 Last data filed at 08/22/2023 1450 Gross per 24 hour Intake 1363 ml Output -- Net 1363 ml I/O last 3 completed shifts: In: 1483 (21.8 mL/kg) [P.O.:120; I.V.:1313 (19.3 mL/kg); IV Piggyback:50] Out: - (0 mL/kg) Weight: 68 kg No intake/output data recorded. PHYSICAL EXAM: Gen: NAD, A&Ox3, pain well controlled Heart: RRR, well perfused. Lungs: Symmetric chest rise, normal work of breathing, no respiratory distress. Abd: Soft, non-tender, non-distended. Ext: Non-edematous, non-erythematous, no tenderness. Skin: Warm, dry, well perfused, no obvious rashes, cellulitis or gross discoloration LABS CBC: Auto WBC Date Value Ref Range Status 08/23/2023 5.9 3.6 - 10.7 10*3/uL Final 08/22/2023 5.9 3.6 - 10.7 10*3/uL Final 08/21/2023 5.7 3.6 - 10.7 10*3/uL Final Hemoglobin Date Value Ref Range Status 08/23/2023 11.9 11.7 - 16.0 g/dL Final 08/22/2023 11.8 11.7 - 16.0 g/dL Final 08/21/2023 14.1 11.7 - 16.0 g/dL Final Platelets Date Value Ref Range Status 08/23/2023 158 140 - 440 10*3/uL Final 08/22/2023 165 140 - 440 10*3/uL Final 08/21/2023 190 140 - 440 10*3/uL Final BMP: SODIUM Date Value Ref Range Status 08/23/2023 138 135 - 145 mmol/L Final 08/22/2023 137 135 - 145 mmol/L Final 08/21/2023 138 135 - 145 mmol/L Final POTASSIUM Date Value Ref Range Status 08/23/2023 4.0 3.5 - 5.1 mmol/L Final 08/22/2023 3.7 3.5 - 5.1 mmol/L Final 08/21/2023 4.2 3.5 - 5.1 mmol/L Final CHLORIDE Date Value Ref Range Status 08/23/2023 108 (H) 98 - 107 mmol/L Final 08/22/2023 106 98 - 107 mmol/L Final 08/21/2023 104 98 - 107 mmol/L Final CARBON DIOXIDE Date Value Ref Range Status 08/23/2023 23 22 - 30 mmol/L Final 08/22/2023 22 22 - 30 mmol/L Final 08/21/2023 26 22 - 30 mmol/L Final UREA NITROGEN Date Value Ref Range Status 08/23/2023 8 7 - 17 mg/dL Final 08/22/2023 10 7 - 17 mg/dL Final 08/21/2023 14 7 - 17 mg/dL Final CREATININE Date Value Ref Range Status 08/23/2023 0.58 0.52 - 1.04 mg/dL Final 08/22/2023 0.63 0.52 - 1.04 mg/dL Final 08/21/2023 0.66 0.52 - 1.04 mg/dL Final Hepatic: AST (SGOT) Date Value Ref Range Status 08/23/2023 23 15 - 46 U/L Final 08/21/2023 31 15 - 46 U/L Final 08/20/2023 26 15 - 46 U/L Final ALT Date Value Ref Range Status 08/23/2023 20 0 - 34 U/L Final 08/21/2023 26 0 - 34 U/L Final 08/20/2023 23 0 - 34 U/L Final ALBUMIN Date Value Ref Range Status 08/23/2023 3.4 (L) 3.5 - 5.0 g/dL Final 08/21/2023 4.5 3.5 - 5.0 g/dL Final 08/20/2023 4.2 3.5 - 5.0 g/dL Final BILIRUBIN, TOTAL Date Value Ref Range Status 08/23/2023 0.6 0.2 - 1.3 mg/dL Final 08/21/2023 0.8 0.2 - 1.3 mg/dL Final 08/20/2023 0.6 0.2 - 1.3 mg/dL Final BILIRUBIN, DIRECT Date Value Ref Range Status 08/21/2023 0.0 0.0 - 0.3 mg/dL Final ALKALINE PHOSPHATASE Date Value Ref Range Status 08/23/2023 65 38 - 126 U/L Final 08/21/2023 83 38 - 126 U/L Final 08/20/2023 76 38 - 126 U/L Final Current Inpatient Medications Scheduled Meds:atorvastatin, 10 mg, Oral, Daily brimonidine, 1 drop, Both Eyes, BID docusate sodium, 100 mg, Oral, q12h enoxaparin, 40 mg, SubCUTAneous, q24h insulin lispro, 0-6 Units, SubCUTAneous, TID WC lansoprazole, 30 mg, Oral, qAM AC latanoprost, 1 drop, Both Eyes, Nightly losartan, 25 mg, Oral, Daily Continuous Infusions: PRN Meds:PRN medications: acetaminophen OR acetaminophen, dextrose, dextrose, glucagon (rDNA), glucose, ondansetron ODT OR ondansetron, polyethylene glycol (PEG) 3350 ASSESSMENT: Sheyla Ramirez is a 77 y.o. female with LLQ tenderness, constipation, and PSHx of lap sigmoid 2/2 diverticulitis presenting with concern for partial large bowel obstruction. PLAN: - Flex Sig - no stenosis, colorectal sign off -Advance to GI soft diet, SLIV -Endocrine consult - ?Ozempic contribution, pt hesitant to stop medication -Continue supportive care, working toward elective outpatient HH repair - due to see Dr Kruse in the office this Thursday -RUQ US- no cholelithiasis - Pain and nausea medications PRN - ALS team to follow D/w Dr Jaye Bergman MD PGY5, General Surgery Pager #[phone] ATTESTATION The patient was seen and examined. I have reviewed the patients presentation, histories, imaging and serology studies. I agree with the above assessment and plan. Ab: Soft, Non-distended, non-tender Patient seen and examined this morning. Pain is well-controlled. She denies nausea or vomiting. Sheis tolerating a liquid diet. Colonoscopy yesterday did not reveal evidence of a stricture at the colonic anastomosis. Continue to advance diet as tolerated. Recommend bowel regimen. Patient would like to stay an additional night to speak with Dr. Kruse tomorrow morning. I feel as though this is reasonable as we will continue to monitor the patient for recurrent symptoms. We will follow. I personally performed the evaluation and management of Sheyla Ramirez in the development of a treatment plan for this patient. I personally interviewed the patient and performed an individual physical examination. In addition, I discussed the patient's condition and treatment options with them. I have also reviewed and agree with the past medical, family and social history unless otherwise noted. All of the patient's questions were answered. I personally spent 35 minutes of time between the face to face encounter, physical exam, reviewing the medical history, coordinating the patient's care, cou nseling/educating the patient, ordering prescriptions/medications/tests/procedures, interpreting results and documenting clinical information in the patient's electronic health record on the day of the encounter. Patient Care Team: Lena Thorne as PCP - (Internal Medicine) Chandana Batista (Gastroenterology) * Piyush Zaragoza MD - 08/22/2023 4:45 PM EDT Hospitalist Progress Note 08/22/2023 4:45 PM [phone]: Please page me for patient care issues. [phone]: Please page [facility] night Hospitalist for any issues. Subjective: Admit Date: 08/21/2023 PCP: LENA THORNE Room#: [id number] A Interval History: Patient seen and examined 77-year-old female past medical history of sigmoid diverticulitis status post sigmoid colectomy, DM, gout, hypertension, hyperlipidemia. Admitted following left lower quadrant pain, nausea. Patient denies any blood in stool, had bowel movement today Denies any abdominal pain, nausea today. No chest pain, shortness of breath, cough, sputum No fever, chills. Lab data's / Imaging studies reviewed LFT panel/lipase normal, CBC normal, lactic acid 0.7, urine analysis negative, A1c 8.4 Abdominal ultrasonogram showed no evidence of cholelithiasis or cholecystitis. Mild dilatation of common bile duct measuring up to [address] scan of abdomen/pelvis done on 08/21/2023 showed findings suspicious for cholelithiasis. No other acute finding or significant interval changes noted. Past medical history : Past Medical History: Diagnosis Date Diabetes mellitus, type 2 (HCC) Gastro-esophageal reflux disease without esophagitis Glaucoma Hypercholesterolemia Other constipation Other intestinal obstruction unspecified as to partial versus complete obstruction (HCC) Other specified symptoms and signs involving the digestive system and abdomen Personal history of colonic polyps Adult diet Full liquid @[id number]@ Medications: lactated Ringer's, 75 mL/hr, Last Rate: 75 mL/hr (08/22/23 1450) atorvastatin, 10 mg, Oral, Daily brimonidine, 1 drop, Both Eyes, BID docusate sodium, 100 mg, Oral, q12h insulin lispro, 0-6 Units, SubCUTAneous, TID WC lansoprazole, 30 mg, Oral, qAM AC latanoprost, 1 drop, Both Eyes, Nightly losartan, 25 mg, Oral, Daily LABS: CBC: Recent Labs 08/20/23 0748 08/21/23 1403 08/22/23 0440 WBC 6.4 5.7 5.9 RBC 4.54 4.96 4.25 HGB 13.1 14.1 11.8 HCT 39.6 43.2 37.5 MCV 87.2 87.1 88.2 RDW 13.2 13.2 13.1 PLT 191 190 165 BMP: Recent Labs 08/20/23 0748 08/21/23 1403 08/22/23 0440 NA 137 138 137 K 4.1 4.2 3.7 CL 103 104 106 CO2 24 26 22 BUN 24* 14 10 CREATININE 0.84 0.66 0.63 GLUCOSE 123* 115* 175* CALCIUM 9.6 9.6 8.7 ANIONGAP 11 9 10 LIVER PROFILE: Recent Labs 08/20/23 0748 08/21/23 1403 AST 26 31 ALT 23 26 BILITOT 0.6 0.8 ALKPHOS 76 83 PROT 7.1 7.7 PT/INR: No results for input(s): PROTIME, INR in the last 72 hours. CARDIAC ENZYMES: No results for input(s): TROPONINI in the last 72 hours. Procalcitonin: No results found for: PROCAL US abdomen complete Result Date: 08/22/2023 Impression: 1. No cholelithiasis or evidence of acute cholecystitis. 2. Mild dilatation of the common bile duct measuring up to 9 mm. Recommend correlation with LFTs for evidence of obstruction. MRI/MRCP could be considered for further evaluation. Report Dictated on Electronically Signed By: Zi Simms DR Electronically Signed Date/Time: 08/22/2023 1:15 PM EDT I reviewed: [x] laboratory results [x] radiographic results At the time of today's encounter. Pt was informed about the results. Objective: Vitals: BP 129/65 (BP Location: Left arm, Patient Position: Sitting) Pulse 68 Temp 36.3 C (97.4F) (Temporal) Resp 18 Ht 5' 7 (1.702 m) Wt 150 lb (68 kg) SpO2 97% BMI 23.49 kg/m Pulse Ox: SpO2 Av % Min: 95 % Max: 99 % Supplemental O2: General appearance: No apparent distress, HEENT: Eyes: No scleral icterus No pallor Oral: Tongue is semi-moist Cardiovascular: S1S2 heard, RRR Respiratory: Clear to auscultation bilaterally anteriorly Abdomen: Soft, non-tender, non-distended, no mass palpable with normal bowel sounds. Musculoskeletal: No obvious deformities seen Neurology- Awake alert, answering questions No focal neurology noted Extremity- no significant peripheral edema both lower extremities Assessment Acute problems-- Left lower quadrant pain, prior history of diverticulitis, status post sigmoid colectomy, status post flexible sigmoidoscopy which showed no stenosis, prior anastomosis appeared well and open. Chronic issue-- DM Hypertension Hyperlipidemia GERD Plan Continue Ringer lactate 75 cc/h Colorectal surgical recommendation noted Full liquid diet, advance as tolerated Losartan 25 mg hypertension Monitor Accu-Chek, changed to low-dose sliding scale insulin PPI for GERD CBC, CMP panel in a.m. Continue rest of medication as ordered SCDs for DVT prophylaxis Patient/patient's sister present at bedside --was informed about all work up and treatment plan Discussed with nursing staff and TCC regarding management/ discharge plan. Toxic drug monitoring/narrow therapeutic index drug monitoring : # Drug name : Insulin # Route administered : Subcu # Method of monitoring : Accu-Chek Extended Emergency Contact Information Primary Emergency Contact: ciaramellissajulian Mobile Relation: Brother Secondary Emergency Contact: ania Santo Mobile Relation: Sister Advance Directive: Full Code Discharge planning: Anticipated discharge in 1 to 2 days/pending improvement NOTE: This report was transcribed using voice recognition software. Every effort was made to ensureaccuracy; however, inadvertent computerized enterprise application developer errors may be present. Piyush Zaragoza MD Division of Hospitalist Medicine [facility] PAGER: Epic chat * Val Chan MD - 08/22/2023 9:53 AM EDT No anastomotic stricture present on flex sig Results d/w patient Recommend GI work-up for other causes Colorectal surgery will sign off Please page with questions Val Chan MD * Lai Cee DO - 08/22/2023 9:15 AM EDT Images from the original note were not included. Department of General Surgery Surg 4 Service Daily Progress Note ADMIT DATE: 08/21/2023 TODAY'S DATE: 08/22/2023 SUBJECTIVE: No acute events overnight. Pain is well controlled on current medications. Some flatus,small BM after gastrograffin. Got enema this am. NPO and consented for Scope ROS: Noted above unless otherwise mentioned. OBJECTIVE: VITALS: Temp: [35.9 C (96.7 F)-37.1 C (98.7 F)] 35.9 C ([age] F) Heart Rate: [68-85] 70 Resp: [16-18] 18 BP: (102-148)/(56-71) 118/60 INTAKE/OUTPUT: Intake/Output Summary (Last 24 hours) at 08/22/2023 0915 Last data filed at 08/22/2023 0829 Gross per 24 hour Intake 133 ml Output -- Net 133 ml No intake/output data recorded. I/O this shift: In: 133 [P.O.:120; I.V.:13] Out: - PHYSICAL EXAM: Gen: NAD, A&Ox3, pain well controlled Heart: RRR, well perfused. Lungs: Symmetric chest rise, normal work of breathing, no respiratory distress. Abd: Soft, non-tender, non-distended. Ext: Non-edematous, non-erythematous, no tenderness. Skin: Warm, dry, well perfused, no obvious rashes, cellulitis or gross discoloration LABS CBC: Auto WBC Date Value Ref Range Status 08/22/2023 5.9 3.6 - 10.7 10*3/uL Final 08/21/2023 5.7 3.6 - 10.7 10*3/uL Final 08/20/2023 6.4 3.6 - 10.7 10*3/uL Final Hemoglobin Date Value Ref Range Status 08/22/2023 11.8 11.7 - 16.0 g/dL Final 08/21/2023 14.1 11.7 - 16.0 g/dL Final 08/20/2023 13.1 11.7 - 16.0 g/dL Final Platelets Date Value Ref Range Status 08/22/2023 165 140 - 440 10*3/uL Final 08/21/2023 190 140 - 440 10*3/uL Final 08/20/2023 191 140 - 440 10*3/uL Final BMP: SODIUM Date Value Ref Range Status 08/22/2023 137 135 - 145 mmol/L Final 08/21/2023 138 135 - 145 mmol/L Final 08/20/2023 137 135 - 145 mmol/L Final POTASSIUM Date Value Ref Range Status 08/22/2023 3.7 3.5 - 5.1 mmol/L Final 08/21/2023 4.2 3.5 - 5.1 mmol/L Final 08/20/2023 4.1 3.5 - 5.1 mmol/L Final CHLORIDE Date Value Ref Range Status 08/22/2023 106 98 - 107 mmol/L Final 08/21/2023 104 98 - 107 mmol/L Final 08/20/2023 103 98 - 107 mmol/L Final CARBON DIOXIDE Date Value Ref Range Status 08/22/2023 22 22 - 30 mmol/L Final 08/21/2023 26 22 - 30 mmol/L Final 08/20/2023 24 22 - 30 mmol/L Final UREA NITROGEN Date Value Ref Range Status 08/22/2023 10 7 - 17 mg/dL Final 08/21/2023 14 7 - 17 mg/dL Final 08/20/2023 24 (H) 7 - 17 mg/dL Final CREATININE Date Value Ref Range Status 08/22/2023 0.63 0.52 - 1.04 mg/dL Final 08/21/2023 0.66 0.52 - 1.04 mg/dL Final 08/20/2023 0.84 0.52 - 1.04 mg/dL Final Hepatic: AST (SGOT) Date Value Ref Range Status 08/21/2023 31 15 - 46 U/L Final 08/20/2023 26 15 - 46 U/L Final ALT Date Value Ref Range Status 08/21/2023 26 0 - 34 U/L Final 08/20/2023 23 0 - 34 U/L Final ALBUMIN Date Value Ref Range Status 08/21/2023 4.5 3.5 - 5.0 g/dL Final 08/20/2023 4.2 3.5 - 5.0 g/dL Final BILIRUBIN, TOTAL Date Value Ref Range Status 08/21/2023 0.8 0.2 - 1.3 mg/dL Final 08/20/2023 0.6 0.2 - 1.3 mg/dL Final BILIRUBIN, DIRECT Date Value Ref Range Status 08/21/2023 0.0 0.0 - 0.3 mg/dL Final ALKALINE PHOSPHATASE Date Value Ref Range Status 08/21/2023 83 38 - 126 U/L Final 08/20/2023 76 38 - 126 U/L Final Current Inpatient Medications Scheduled Meds:[Transfer Hold] atorvastatin, 10 mg, Oral, Daily [Transfer Hold] brimonidine, 1 drop, Both Eyes, BID [Transfer Hold] docusate sodium, 100 mg, Oral, q12h [Transfer Hold] insulin regular, 0-6 Units, SubCUTAneous, q6h [Transfer Hold] lansoprazole, 30 mg, Oral, qAM AC [Transfer Hold] latanoprost, 1 drop, Both Eyes, Nightly [Transfer Hold] losartan, 25 mg, Oral, Daily [Transfer Hold] Non-Formulary Medication, , Oral, qPM Continuous Infusions:lactated Ringer's, 75 mL/hr, Last Rate: 75 mL/hr (08/22/23 0835) PRN Meds:PRN medications: [Transfer Hold] acetaminophen OR [Transfer Hold] acetaminophen, [Transfer Hold] dextrose, [Transfer Hold] dextrose, [Transfer Hold] glucagon (rDNA), [Transfer Hold] glucose, [Transfer Hold] ondansetron ODT OR [Transfer Hold] ondansetron, [Transfer Hold] polyethylene glycol (PEG) 3350 ASSESSMENT: Sheyla Ramirez is a 77 y.o. female with LLQ tenderness, constipation, and PSHx of lap sigmoid 2/2 diverticulitis presenting with concern for partial large bowel obstruction. PLAN: - Flex Sig - no stenosis, colorectal sign off -Continue supportive care, working toward elective outpatient HH repair -RUQ US to further eval stones/sludge, may require cholecystectomy at time of planned surgery - Can trial soft diet as tolerated - Pain and nausea medications PRN - ALS team to follow D/w Dr Jaye Bergman MD PGY5, General Surgery Pager #[phone] ATTESTATION The patient was seen and examined. I have reviewed the patients presentation, histories, imaging and serology studies. I agree with the above assessment and plan. Please refer to consult note I (Lai Cee) personally supervised the resident/fellow in the evaluation and development of a treatment plan for this patient including using nursing/ems notes. I personally discussed the reviewof systems and interviewed the patient along with performing a physical examination. In addition, Idiscussed the patient's condition and treatment options with them. I have also reviewed and agree with the past medical, family and social history unless otherwise noted and personally reviewed the imaging and labs. This note may be a delayed entry. All of the patient's questions were answered. The patient was seen and examined independently and relevant data reviewed by myself. A full chart review was performed. documented in this [facility]07-08-2024 NoteHospitalist Progress Note 08/24/2023 7:56 AM [phone]: Please page me for patient care issues. [phone]: Please page [facility] night Hospitalist for any issues. Subjective: Admit Date: 08/21/2023 PCP: LENA THORNE Room#: [id number] A Interval History: Patient seen and examined 77-year-old female past medical history of sigmoid diverticulitis status post sigmoid colectomy, DM, gout, hypertension, hyperlipidemia. Patient denies any abdominal pain, nausea, vomiting Tolerating diet Passing flatus No bowel movement No chest pain, shortness of breath, cough Lab data's / Imaging studies reviewed Accu-Cheks reviewed No lab data from today Past medical history : Past Medical History: Diagnosis Date Diabetes mellitus, type 2 (HCC) Gastro-esophageal reflux disease without esophagitis Glaucoma Hypercholesterolemia Other constipation Other intestinal obstruction unspecified as to partial versus complete obstruction (HCC) Other specified symptoms and signs involving the digestive system and abdomen Personal history of colonic polyps Adult diet Regular @[id number]@ Medications: atorvastatin, 10 mg, Oral, Daily bisacodyl, 10 mg, Rectal, Daily brimonidine, 1 drop, Both Eyes, BID insulin lispro, 0-6 Units, SubCUTAneous, TID WC lansoprazole, 30 mg, Oral, qAM AC latanoprost, 1 drop, Both Eyes, Nightly losartan, 25 mg, Oral, Daily polyethylene glycol (PEG) 3350, 17 g, Oral, Daily LABS: CBC: Recent Labs 08/21/23 1403 08/22/23 0440 08/23/23 0039 WBC 5.7 5.9 5.9 RBC 4.96 4.25 4.18 HGB 14.1 11.8 11.9 HCT 43.2 37.5 37.1 MCV 87.1 88.2 88.8 RDW 13.2 13.1 13.2 PLT 190 165 158 BMP: Recent Labs 08/21/23 1403 08/22/23 0440 08/23/23 0039 NA 138 137 138 K 4.2 3.7 4.0 CL 104 106 108* CO2 26 22 23 BUN 14 10 8 CREATININE 0.66 0.63 0.58 GLUCOSE 115* 175* 96 CALCIUM 9.6 8.7 9.2 ANIONGAP 9 10 8 LIVER PROFILE: Recent Labs 08/21/23 1403 08/23/23 0039 AST 31 23 ALT 26 20 BILITOT 0.8 0.6 ALKPHOS 83 65 PROT 7.7 6.0* PT/INR: No results for input(s): PROTIME, INR in the last 72 hours. CARDIAC ENZYMES: No results for input(s): TROPONINI in the last 72 hours. Procalcitonin: No results found for: PROCAL US abdomen complete Result Date: 08/22/2023 Impression: 1. No cholelithiasis or evidence of acute cholecystitis. 2. Mild dilatation of the common bile duct measuring up to 9 mm. Recommend correlation with LFTs for evidence of obstruction. MRI/MRCP could be considered for further evaluation. Report Dictated on Electronically Signed By: Zi Simms DR Electronically Signed Date/Time: 08/22/2023 1:15 PM EDT I reviewed: [x] laboratory results [x] radiographic results At the time of today's encounter. Pt was informed about the results. Objective: Vitals: BP 144/78 (BP Location: Left arm, Patient Position: Lying) Pulse 79 Temp 36.7 ?C (98.1 ?F) (Temporal) Resp 16 Ht 5' 7 (1.702 m) Wt 150 lb (68 kg) SpO2 99% BMI 23.49 kg/m? Pulse Ox: SpO2 Av % Min: 97 % Max: 99 % Supplemental O2: General appearance: No apparent distress, HEENT: Eyes: No scleral icterus Oral: Tongue is semi-moist Cardiovascular: S1S2 heard, RRR Respiratory: Clear to auscultation bilaterally anteriorly Abdomen: Soft, non-tender, non-distended, no mass palpable with normal bowel sounds. Neurology- Awake alert, answering questions No focal neurology noted Extremity- no significant peripheral edema both lower extremities Assessment Acute problems--- Left lower quadrant pain, prior history of diverticulitis, status post sigmoid colectomy, status post flexible sigmoidoscopy which showed no stenosis, prior anastomosis appeared well and open. Chronic issue--- DM Hypertension Hyperlipidemia GERD/hiatal hernia Plan Colorectal surgical recommendation noted-- Started on Dulcolax 10 mg rectal suppository, continue MiraLAX 17 g p.o. daily. Seen by endocrinology team, recommendation noted to discontinue Ozempic at the time of discharge. Patient needs to be continued with glimepiride at discharge. Continue losartan 25 mg for hypertension Monitor Accu-Chek, continue low-dose sliding scale insulin On PPI for GERD Continue rest of medication as ordered SCDs for DVT prophylaxis Patient was informed about all workup treatment plan Discharge home pending BM prior to discharge Toxic drug monitoring/narrow therapeutic index drug monitoring : # Drug name : Insulin # Route administered : Subcu # Method of monitoring : Accu-Chek Extended Emergency Contact Information Primary Emergency Contact: julian ramirez Mobile Relation: Brother Secondary Emergency Contact: Hansaania Mobile Relation: Sister Advance Directive: Full Code Discharge planning: DC home later today or in a.m., pending BM prior to discharge NOTE: This report was transcribed using v (more content not included)...[facility]07-08-2024 Plan of care note* Care Plan - Jeannine Palafox RN - 08/24/2023 1:17 AM EDT Problem: Pain - Adult Goal: Verbalizes/displays adequate comfort level or baseline comfort level Outcome: Progressing Problem: Safety - Adult Goal: Free from fall injury Outcome: Progressing Problem: Discharge Planning Goal: Discharge to home or other facility with appropriate resources Outcome: Progressing Problem: Chronic Conditions and Co-morbidities Goal: Patient's chronic conditions and co-morbidity symptoms are monitored and maintained or improved Outcome: Progressing [id number] Consult note* Jenae Vásquez MD - 08/23/2023 11:17 AM EDTAssociated Order(s): IP CONSULT TO ENDOCRINOLOGY Department of Internal Medicine Division of Endocrinology, Diabetes, & Metabolism Endocrinology Note Patient Name: Sheyla Ramirez : 1945 AGE: 77 y.o. Room/Bed: [facility] A Admission Date: 08/21/2023 Visit Date: 08/23/2023 Reason for Endocrine Consult: dm-managed on ozempic , due to have hiatal hernia surgery soon. 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 Concern for partial large bowel obstruction HLD Hiatal hernia PLAN: Current sugars are well controlled , continue current regimen of low dose sliding scale with meals ICU goal <180 GMF goal <150 POCT BG ACHS Hypoglycemia management per protocol Carb controlled diet Check TSH ANTICIPATED ENDOCRINE HOME GOING RECOMMENDATIONS: Optimized for Discharge from Endocrine standpoint: No Home Going Endocrine Rx Recommendations-- Given current presentation and history of bowel obstruction , Stop ozempic - patient agreeable Resume home regimen of glimepiride May consider starting metformin in place of ozempic if GI issues have resolved ( patient has not been on this before and renal functions are normal) Outpt Follow Up-- With Dr Bhakta SUBJECTIVE/HPI: CHIEF COMPLAINT: Chief Complaint Patient presents with Abdominal Pain Patient was seen in ER yesterday where she was told she should stay for possible bowel obstruction,she decided to leave because she felt better but is now back with Abdominal pain Patient with history of Type 2 dm not on insulin , Mixed hyperlipidemia history of laparoscopic sigmoid colectomy for diverticulitis. 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 Type of DM: 2 Onset of DM: age 55 Home DM Medication Regimen: Ozempic 1 mg weekly , glimepiride 2 mg bid DM control (last A1c/glucose data): 8.4% on current admission Patient feels better today Had her first meal today and has tolerated it well Pertinent History of bowel obstruction in 2019 and history of laparoscopic sigmoid colectomy for diverticulitis in 2010 No known micro or macrovascular complications from diabetes Patient checks her sugar with a glucometer - overall sugars are <180 Prior medications for diabetes: Actos - weight gain , Jardiance - UTI and excoriation of skin of perineum Never been on metformin in the past She follows strict dietary changes at home. Follows low carb and limits calories to 1200/day She required a course of prednisone in june 2023 Glucose Date/Time Value Ref Range Status 08/23/2023 08:23 AM 101 (H) 70 - 100 mg/dL Final 08/22/2023 08:28 PM 113 (H) 70 - 100 mg/dL Final 08/22/2023 04:48 PM 197 (H) 70 - 100 mg/dL Final 08/22/2023 11:13 AM 115 (H) 70 - 100 mg/dL Final 08/22/2023 10:23 AM 61 (L) 70 - 100 mg/dL Final 08/22/2023 06:19 AM 91 70 - 100 mg/dL Final Review of Systems ROS negative except for those mentioned in HPI. OBJECTIVE: Vitals: 08/22/23 0850 08/22/23 0955 08/22/23 1647 08/23/23 0530 BP: 118/60 129/65 115/61 136/73 BP Location: Left arm Left arm Patient Position: Sitting Sitting Pulse: 70 68 81 77 Resp: 18 18 16 16 Temp: 36.3 C (97.4 F) 36.7 C (98 F) 36.4 C (97.5 F) TempSrc: Temporal Temporal Temporal SpO2: 99% 97% 96% 97% Weight: Height: Physical Exam Vitals and nursing note reviewed. Constitutional: Appearance: Normal appearance. HENT: Head: Normocephalic and atraumatic. Cardiovascular: Rate and Rhythm: Normal rate and regular rhythm. Pulmonary: Effort: Pulmonary effort is normal. Abdominal: General: There is no distension. Palpations: Abdomen is soft. Tenderness: There is no abdominal tenderness. Musculoskeletal: General: No swelling. Normal range of motion. Skin: General: Skin is warm and dry. Neurological: General: No focal deficit present. Mental Status: She is alert and oriented to person, place, and time. Psychiatric: Mood and Affect: Mood normal. Behavior: Behavior normal. 24 hour intake/output: Intake/Output Summary (Last 24 hours) at 08/23/2023 1118 Last data filed at 08/22/2023 1450 Gross per 24 hour Intake 1350 ml Output -- Net 1350 ml Diet: Adult diet Easy to Chew; 4 carb choices (60 gm/meal) Medications (as per EMR): HomeMeds: Current Outpatient Medications Medication Instructions atorvastatin (LIPITOR) 10 mg, Oral, Daily brimonidine (AlphaGAN) 0.2 % ophthalmic solution 1 drop, 2 times daily cyclobenzaprine (FLEXERIL) 10 mg, Oral docusate sodium (COLACE) 100 mg, Oral, Every 12 hours glimepiride (AMARYL) 4 mg, Oral, Daily before breakfast lansoprazole (Prevacid) [address] capsule Oral, Daily before breakfast, Do not crush or chew. latanoprost (Xalatan) 0.005 % ophthalmic solution INSTILL 1 DROP INTO BOTH EYES ONCE A DAY losartan (Cozaar) 25 MG tablet Oral ondansetron (ZOFRAN) 4 mg, Oral, Every 6 hours polyethylene glycol (PEG) 3350 (MIRALAX) 17 g, Oral, Daily polyethylene glycol, PEG, 3350 (Miralax) 17 g packet Oral Semaglutide (OZEMPIC, 1 MG/DOSE, SC) 1 mg, SubCUTAneous, Weekly Scheduled Meds:atorvastatin, 10 mg, Oral, Daily brimonidine, 1 drop, Both Eyes, BID insulin lispro, 0-6 Units, SubCUTAneous, TID WC lansoprazole, 30 mg, Oral, qAM AC latanoprost, 1 drop, Both Eyes, Nightly losartan, 25 mg, Oral, Daily polyethylene glycol (PEG) 3350, 17 g, Oral, Daily Continuous Infusions: PRN Meds:PRN medications: acetaminophen OR acetaminophen, dextrose, dextrose, glucagon (rDNA), glucose, ondansetron ODT OR ondansetron Diagnostic Workup: I reviewed pertinent Laboratory results, Radiographic results, and Other Clinical Notes at the timeof today's encounter. Labs: No components found for: LABA1C No components found for: EAG Lab Results Component Value Date NA 138 08/23/2023 K 4.0 08/23/2023 CL 108 (H) 08/23/2023 CO2 23 08/23/2023 BUN 8 08/23/2023 CREATININE 0.58 08/23/2023 GLUCOSE 96 08/23/2023 CALCIUM 9.2 08/23/2023 No results found for: CHLPL, CHOL No results found for: TRIG No results found for: HDL No results found for: LDLCALC No results found for: VLDL No results found for: CHOLHDLRATIO No results found for: [id number] No results found for: TSH, Y2DZSKF, E8PDGMB, THYROIDAB Radiology reportsas per the Radiologist Radiology: POCT glucose meter Result Date: 08/22/2023 [facility]: [facility], [address] [place] [address] CLIA ID: [id number] POCT glucose meter Result Date: 08/22/2023 Performed by: [facility], [address] [place] [address] CLIA ID: [id number] US abdomen complete Result Date: 08/22/2023 Patient Name: SHEYLA RAMIREZ : 1945 Exam Date/Time: 08/22/2023 13:08 Procedure: US ABDOMEN COMPLETE Ordering Provider: ZARAGOZA VENKATESH Reason For Exam: Abdominal pain, gallbladder sludge EXAM TYPE: Ultrasound abdomen complete. CLINICAL HISTORY: Abdominal pain, gallbladder sludge COMPARISON: None. TECHNIQUE: Grayscale sonographicimages were obtained of the abdomen. Color Doppler was utilized. FINDINGS: Liver: The liver is normal in contour and echogenicity with no focal hepatic masses. No intra hepatic biliary ductal dilatation is identified. The common bile duct is dilated for the patient's age and measures 9 mm in diameter. Gallbladder: The gallbladder is unremarkable with no gallbladder wall thickening, pericholecystic fluid, or gallstones. No sonographic Mejia sign was elicited. Kidneys: Both kidneys are normal in contour, echogenicity, and size with no hydronephrosis or shadowing renal calculi. The right kidneymeasures 12.7 cm in length. The left kidney measures 10.9 cm in length. Accessory structures: The spleen is nonenlarged. The visualized portions of the pancreas are normal. The proximal aorta and IVCare normal in caliber. 1. No cholelithiasis or evidence of acute cholecystitis. 2. Mild dilatation of the common bile ductmeasuring up to 9 mm. Recommend correlation with LFTs for evidence of obstruction. MRI/MRCP could be considered for further evaluation. Report Dictated on Electronically Signed By: Zi Simms DR Electronically Signed Date/Time: 08/22/2023 1:15 PM EDT POCT glucose meter Result Date: 08/22/2023 Performed by: [facility] [place] [facility], [address] [place] [address], [place] [address] CLIA ID: [id number] POCT glucose meter Result Date: 08/22/2023 Performed by: [facility] [place] [facility], [address] [place] [address], [place] [address] CLIA ID: [id number] POCT glucose meter Result Date: 08/22/2023 Performed by: [facility] [place] [facility], [address] [place] [address], [place] [address] CLIA ID: [id number] POCT glucose meter Result Date: 08/22/2023 Performed by: [facility] [place] [facility], [address] [place] [address], [place] [address] CLIA ID: [id number] POCT glucose meter Result Date: 08/22/2023 Performed by: [facility] [place] [facility], [address] [place] [address], [place] [address] CLIA ID: [id number] POCT glucose meter Result Date: 08/21/2023 Performed by: [employer] [facility], [address] [place] [address], [place] [address] CLIA ID: [id number] CT abdomen pelvis w contrast Result Date: 08/21/2023 Patient Name: SHEYLA RAMIREZ : 1945 [facility]#: [id number] Exam Date/Time: 08/21/2023 16:58 Procedure: CT ABDOMEN PELVIS W CONTRAST Ordering Provider: CEE LOGAN Reason For Exam: Abdominal pain, acute, nonlocalized CT ABDOMEN AND PELVIS WITH CONTRAST CLINICAL INDICATION: Abdominal pain, acute, nonlocalized TECHNIQUE: CT scan of the abdomen and pelvis, with IV contrast. Multiplanar reformations. Dose reduction was employed with automated exposure control. COMPARISON: 1 day prior. FINDINGS: Abdomen: Visualized lung bases grossly unremarkable. Subtle and amorphous hyperdensities in the hepatic portion gallbladder suspicious for gallstones. No significant pericholecystic fluid. Liver again demonstrates a rounded hypodensity in the anterior segment of right lobe measuring approximately 2.2 cm, statistically suggesting cyst or hemangioma, unchanged. Spleen without significant abnormality. Pancreas without significant abnormality. Kidneys without significant abnormality. Adrenal glands without significant abnormality. Pelvis: Postsurgical changeagain noted, including partial resection of left colon and anastomosis in the sigmoid region. Oral contrast extends to the splenic flexure of the colon without evidence of mechanical obstruction. Appe ndix not confidently identified and probably surgically absent. No significant, free peritoneal fluid or apparent adenopathy. Abdominal aorta partially calcified, but nonaneurysmal. Levoscoliotic anddegenerative change in the lumbar spine. 1. Findings suspicious for cholelithiasis. 2. No other acute findings or significant interval change. Please see above for further details. Report Dictated on Electronically Signed By: Rodríguez Franklin MD Electronically Signed Date/Time: 08/21/2023 5:35 PM EDT History/Other: Past Medical History: Past Medical History: Diagnosis Date Diabetes mellitus, type 2 (HCC) Gastro-esophageal reflux disease without esophagitis Glaucoma Hypercholesterolemia Other constipation Other intestinal obstruction unspecified as to partial versus complete obstruction (HCC) Other specified symptoms and signs involving the digestive system and abdomen Personal history of colonic polyps Past Surgical History: Past Surgical History: Procedure Laterality Date COLONOSCOPY 2019 EGD (HISTORICAL) 2019 EGD (HISTORICAL) 08/04/2023 FLEXIBLE SIGMOIDOSCOPY N/A 08/22/2023 Performed by Val Chan MD at [facility] ENDOSCOPY SIGMOID COLECTOMY (HISTORICAL) 2010 Laparoscopic sigmoid colectomy for diverticulitis Allergy(ies): Allergies Allergen Reactions Grass Pollen(K-O-R-T-Swt Todd) Unknown Molds & Smuts Unknown Lisinopril Cough Neomycin Hives Penicillins Hives Seasonal Runny nose Sulfa Antibiotics Family History: No family history on file. Social History: Social History Tobacco Use Smoking status: Never Smokeless tobacco: Never Substance Use Topics Alcohol use: Not Currently Comment: SOCIALLY Drug use: Never Portions of the information within this encounter were entered using an electronic dictation system. Best attempts were made to edit/proofread the information prior to note completion. Despite the review of information, some errors may remain. If there are questions related to the information contained within the note please contact the signing physician directly. I spent 60 minutes with the pt which involved coordination of care, medical evaluation, review of records, and/or counseling of the pt regarding his/her condition/disease state/prognosis on the date of this note. [id number] Consult note* Jenae Vásquez MD - 08/23/2023 11:17 AM EDTAssociated Order(s): IP CONSULT TO ENDOCRINOLOGY Department of Internal Medicine Division of Endocrinology, Diabetes, & Metabolism Endocrinology Note Patient Name: Sheyla Ramirez : 1945 AGE: 77 y.o. Room[facility]Bed: [facility] A Admission Date: 08/21/2023 Visit Date: 08/23/2023 Reason for Endocrine Consult: dm-managed on ozempic , due to have hiatal hernia surgery soon. Admitted with GI dysmotility Provider/Team Requesting Consult: surgery PCP: LENA THORNE Outpt Hair Clipper Power: Yes Dr Sylvester Bhakta ASSESSMENT: Type 2 diabetes with hyperglycemia without penitentiary insulin use Concern for partial large bowel obstruction HLD Hiatal hernia PLAN: Current sugars are well controlled , continue current regimen of low dose sliding scale with meals ICU goal <180 GMF goal <150 POCT BG ACHS Hypoglycemia management per protocol Carb controlled diet Check TSH ANTICIPATED ENDOCRINE HOME GOING RECOMMENDATIONS: Optimized for Discharge from Endocrine standpoint: No Home Going Endocrine Rx Recommendations-- Given current presentation and history of bowel obstruction , Stop ozempic - patient agreeable Resume home regimen of glimepiride May consider starting metformin in place of ozempic if GI issues have resolved ( patient has not been on this before and renal functions are normal) Outpt Follow Up-- With Dr Bhakta SUBJECTIVE/HPI: CHIEF COMPLAINT: Chief Complaint Patient presents with Abdominal Pain Patient was seen in ER yesterday where she was told she should stay for possible bowel obstruction,she decided to leave because she felt better but is now back with Abdominal pain Patient with history of Type 2 dm not on insulin , Mixed hyperlipidemia history of laparoscopic sigmoid colectomy for diverticulitis. 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 Type of DM: 2 Onset of DM: age 55 Home DM Medication Regimen: Ozempic 1 mg weekly , glimepiride 2 mg bid DM control (last A1c/glucose data): 8.4% on current admission Patient feels better today Had her first meal today and has tolerated it well Pertinent History of bowel obstruction in 2019 and history of laparoscopic sigmoid colectomy for diverticulitis in 2010 No known micro or macrovascular complications from diabetes Patient checks her sugar with a glucometer - overall sugars are <180 Prior medications for diabetes: Actos - weight gain , Jardiance - UTI and excoriation of skin of perineum Never been on metformin in the past She follows strict dietary changes at home. Follows low carb and limits calories to 1200/day She required a course of prednisone in june 2023 Glucose Date/Time Value Ref Range Status 08/23/2023 08:23 AM 101 (H) 70 - 100 mg/dL Final 08/22/2023 08:28 PM 113 (H) 70 - 100 mg/dL Final 08/22/2023 04:48 PM 197 (H) 70 - 100 mg/dL Final 08/22/2023 11:13 AM 115 (H) 70 - 100 mg/dL Final 08/22/2023 10:23 AM 61 (L) 70 - 100 mg/dL Final 08/22/2023 06:19 AM 91 70 - 100 mg/dL Final Review of Systems ROS negative except for those mentioned in HPI. OBJECTIVE: Vitals: 08/22/23 0850 08/22/23 0955 08/22/23 1647 08/23/23 0530 BP: 118/60 129/65 115/61 136/73 BP Location: Left arm Left arm Patient Position: Sitting Sitting Pulse: 70 68 81 77 Resp: 18 18 16 16 Temp: 36.3 C (97.4 F) 36.7 C (98 F) 36.4 C (97.5 F) TempSrc: Temporal Temporal Temporal SpO2: 99% 97% 96% 97% Weight: Height: Physical Exam Vitals and nursing note reviewed. Constitutional: Appearance: Normal appearance. HENT: Head: Normocephalic and atraumatic. Cardiovascular: Rate and Rhythm: Normal rate and regular rhythm. Pulmonary: Effort: Pulmonary effort is normal. Abdominal: General: There is no distension. Palpations: Abdomen is soft. Tenderness: There is no abdominal tenderness. Musculoskeletal: General: No swelling. Normal range of motion. Skin: General: Skin is warm and dry. Neurological: General: No focal deficit present. Mental Status: She is alert and oriented to person, place, and time. Psychiatric: Mood and Affect: Mood normal. Behavior: Behavior normal. 24 hour intake/output: Intake/Output Summary (Last 24 hours) at 08/23/2023 1118 Last data filed at 08/22/2023 1450 Gross per 24 hour Intake 1350 ml Output -- Net 1350 ml Diet: Adult diet Easy to Chew; 4 carb choices (60 gm/meal) Medications (as per EMR): HomeMeds: Current Outpatient Medications Medication Instructions atorvastatin (LIPITOR) 10 mg, Oral, Daily brimonidine (AlphaGAN) 0.2 % ophthalmic solution 1 drop, 2 times daily cyclobenzaprine (FLEXERIL) 10 mg, Oral docusate sodium (COLACE) 100 mg, Oral, Every 12 hours glimepiride (AMARYL) 4 mg, Oral, Daily before breakfast lansoprazole (Prevacid) [address] capsule Oral, Daily before breakfast, Do not crush or chew. latanoprost (Xalatan) 0.005 % ophthalmic solution INSTILL 1 DROP INTO BOTH EYES ONCE A DAY losartan (Cozaar) 25 MG tablet Oral ondansetron (ZOFRAN) 4 mg, Oral, Every 6 hours polyethylene glycol (PEG) 3350 (MIRALAX) 17 g, Oral, Daily polyethylene glycol, PEG, 3350 (Miralax) 17 g packet Oral Semaglutide (OZEMPIC, 1 MG/DOSE, SC) 1 mg, SubCUTAneous, Weekly Scheduled Meds:atorvastatin, 10 mg, Oral, Daily brimonidine, 1 drop, Both Eyes, BID insulin lispro, 0-6 Units, SubCUTAneous, TID WC lansoprazole, 30 mg, Oral, qAM AC latanoprost, 1 drop, Both Eyes, Nightly losartan, 25 mg, Oral, Daily polyethylene glycol (PEG) 3350, 17 g, Oral, Daily Continuous Infusions: PRN Meds:PRN medications: acetaminophen OR acetaminophen, dextrose, dextrose, glucagon (rDNA), glucose, ondansetron ODT OR ondansetron Diagnostic Workup: I reviewed pertinent Laboratory results, Radiographic results, and Other Clinical Notes at the timeof today's encounter. Labs: No components found for: LABA1C No components found for: EAG Lab Results Component Value Date NA 138 08/23/2023 K 4.0 08/23/2023 CL 108 (H) 08/23/2023 CO2 23 08/23/2023 BUN 8 08/23/2023 CREATININE 0.58 08/23/2023 GLUCOSE 96 08/23/2023 CALCIUM 9.2 08/23/2023 No results found for: CHLPL, CHOL No results found for: TRIG No results found for: HDL No results found for: LDLCALC No results found for: VLDL No results found for: CHOLHDLRATIO No results found for: [id number] No results found for: TSH, N1NJACL, I1QEBKD, THYROIDAB Radiology reportsas per the Radiologist Radiology: POCT glucose meter Result Date: 08/22/2023 Performed by: [employer] [facility], [address] [place] [id number] CLIA ID: [id number] POCT glucose meter Result Date: 08/22/2023 Performed by: [employer] [facility] [employer] [facility], [address] [place] [address] CLIA ID: [id number] US abdomen complete Result Date: 08/22/2023 [facility] 1945 [id number] Exam Date/Time: 08/22/2023 13:08 Procedure: US ABDOMEN COMPLETE Ordering Provider: ZARAGOZA VENKATESH Reason For Exam: Abdominal pain, gallbladder sludge EXAM TYPE: Ultrasound abdomen complete. CLINICAL HISTORY: Abdominal pain, gallbladder sludge COMPARISON: None. TECHNIQUE: Grayscale sonographicimages were obtained of the abdomen. Color Doppler was utilized. FINDINGS: Liver: The liver is normal in contour and echogenicity with no focal hepatic masses. No intra hepatic biliary ductal dilatation is identified. The common bile duct is dilated for the patient's age and measures 9 mm in diameter. Gallbladder: The gallbladder is unremarkable with no gallbladder wall thickening, pericholecystic fluid, or gallstones. No sonographic Mejia sign was elicited. Kidneys: Both kidneys are normal in contour, echogenicity, and size with no hydronephrosis or shadowing renal calculi. The right kidneymeasures 12.7 cm in length. The left kidney measures 10.9 cm in length. Accessory structures: The spleen is nonenlarged. The visualized portions of the pancreas are normal. The proximal aorta and [employer]Care normal in caliber. 1. No cholelithiasis or evidence of acute cholecystitis. 2. Mild dilatation of the common bile ductmeasuring up to 9 mm. Recommend correlation with LFTs for evidence of obstruction. MRI/MRCP could be considered for further evaluation. Report Dictated on Electronically Signed By: Zi Simms DR Electronically Signed Date/Time: 08/22/2023 1:15 PM EDT POCT glucose meter Result Date: 08/22/2023 [facility]formed by: [facility], [address] [place] [address] CLIA ID: [id number] POCT glucose meter Result Date: 08/22/2023 Performed by: [facility], [address] [place] [address] [place] [address] CLIA ID: [id number] POCT glucose meter Result Date: 08/22/2023 Performed by: [facility] [employer], [address] [place], [place] [address] [place] [address] CLIA ID: [id number] POCT glucose meter Result Date: 08/22/2023 Performed by: [facility], [address] [place], [place] [address] [place] [address] CLIA ID: [id number] POCT glucose meter Result Date: 08/22/2023 Performed by: [facility], [address] [place] [address] CLIA ID: [id number] POCT glucose meter Result Date: 08/21/2023 Performed by: [facility], [address] [place] [address] [place] [address] CLIA ID: [id number] CT abdomen pelvis w contrast Result Date: 08/21/2023 Patient Name: SHEYLA RAMIREZ : 1945 Exam Date/Time: 08/21/2023 16:58 Procedure: CT ABDOMEN PELVIS W CONTRAST Ordering Provider: CEE LOGAN Reason For Exam: Abdominal pain, acute, nonlocalized CT ABDOMEN AND PELVIS WITH CONTRAST CLINICAL INDICATION: Abdominal pain, acute, nonlocalized TECHNIQUE: CT scan of the abdomen and pelvis, with IV contrast. Multiplanar reformations. Dose reduction was employed with automated exposure control. COMPARISON: 1 day prior. FINDINGS: Abdomen: Visualized lung bases grossly unremarkable. Subtle and amorphous hyperdensities in the hepatic portion gallbladder suspicious for gallstones. No significant pericholecystic fluid. Liver again demonstrates a rounded hypodensity in the anterior segment of right lobe measuring approximately 2.2 cm, statistically suggesting cyst or hemangioma, unchanged. Spleen without significant abnormality. Pancreas without significant abnormality. Kidneys without significant abnormality. Adrenal glands without significant abnormality. Pelvis: Postsurgical changeagain noted, including partial resection of left colon and anastomosis in the sigmoid region. Oral contrast extends to the splenic flexure of the colon without evidence of mechanical obstruction. Appe ndix not confidently identified and probably surgically absent. No significant, free peritoneal fluid or apparent adenopathy. Abdominal aorta partially calcified, but nonaneurysmal. Levoscoliotic anddegenerative change in the lumbar spine. 1. Findings suspicious for cholelithiasis. 2. No other acute findings or significant interval change. Please see above for further details. Report Dictated on Electronically Signed By: Rodríguez Franklin MD Electronically Signed Date/Time: 08/21/2023 5:35 PM EDT History/Other: Past Medical History: Past Medical History: Diagnosis Date Diabetes mellitus, type 2 (HCC) Gastro-esophageal reflux disease without esophagitis Glaucoma Hypercholesterolemia Other constipation Other intestinal obstruction unspecified as to partial versus complete obstruction (HCC) Other specified symptoms and signs involving the digestive system and abdomen Personal history of colonic polyps Past Surgical History: Past Surgical History: Procedure Laterality Date COLONOSCOPY 2019 EGD (HISTORICAL) 2019 EGD (HISTORICAL) 08/04/2023 FLEXIBLE SIGMOIDOSCOPY N/A 08/22/2023 Performed by Val Chan MD at [facility] ENDOSCOPY SIGMOID COLECTOMY (HISTORICAL) 2010 Laparoscopic sigmoid colectomy for diverticulitis Allergy(ies): Allergies Allergen Reactions Grass Pollen(K-O-R-T-Swt Todd) Unknown Molds & Smuts Unknown Lisinopril Cough Neomycin Hives Penicillins Hives Seasonal Runny nose Sulfa Antibiotics Family History: No family history on file. Social History: Social History Tobacco Use Smoking status: Never Smokeless tobacco: Never Substance Use Topics Alcohol use: Not Currently Comment: SOCIALLY Drug use: Never Portions of the information within this encounter were entered using an electronic dictation system. Best attempts were made to edit/proofread the information prior to note completion. Despite the review of information, some errors may remain. If there are questions related to the information contained within the note please contact the signing physician directly. I spent 60 minutes with the pt which involved coordination of care, medical evaluation, review of records, and/or counseling of the pt regarding his/her condition/disease state/prognosis on the date of this note. * Lai Cee DO - 08/21/2023 4:10 PM EDT Images from the original note were not included. Department of Surgery Surgical Service: Surg 4 (Advanced Laparoscopic Surgery) Resident Consult Note 08/22/2023 Chief Complaint: Chief Complaint Patient presents with Abdominal Pain Patient was seen in ER yesterday where she was told she should stay for possible bowel obstruction,she decided to leave because she felt better but is now back with Abdominal pain Reason for Consult: Left lower quadrant abdominal pain History of Present Illness: Sheyla Ramirez is a 77 y.o. female with PMHx significant for diabetes, GERD, hypercholesteremia, constipation, bowel obstructions, GERD, and PSHx of lap sigmoid secondary to diverticulitis, (additional history below) who presents to [facility] ED with a chief complaint of concerns for bowel obstruction. . Surgery was consulted for the evaluation and management of LLQ pain/concern for obstruction. Patient was seen in the ER yesterday after she had 24 hours of obstipation, with no bowel movement or flatus. Her CT imaging at that time showed mild bowel thickening and kinking in the left hemiabdomen. She elected to go home and monitor her symptoms. She returns to the ER now with 48 hours of obstipation. She has not passed any flatus or bowel movement. She had emesis of breakfast only but no persistent bilious emesis. She denies significant abdominal pain. On workup she is afebrile, hemodynamically stable, CBC, BMP, LFTs within normal limits. Interval CTabdomen IV and p.o. contrast shows no significant gastric or small bowel dilation, the right and transverse colon filled with contrast, there is no left colonic dilation but there is also no contrastpast the anastomosis. Patient is surgical history of laparoscopic sigmoidectomy single-stage with Dr. Kruse 2010. She has had colonoscopic balloon dilation since that time for stricture. She is not on any blood thinners or steroids. No family history of IBD or Crohn's. Past Medical History: Diagnosis Date Diabetes mellitus, type 2 (HCC) Gastro-esophageal reflux disease without esophagitis Glaucoma Hypercholesterolemia Other constipation Other intestinal obstruction unspecified as to partial versus complete obstruction (HCC) Other specified symptoms and signs involving the digestive system and abdomen Personal history of colonic polyps Past Surgical History: Procedure Laterality Date COLONOSCOPY 2019 EGD (HISTORICAL) 2019 EGD (HISTORICAL) 08/04/2023 FLEXIBLE SIGMOIDOSCOPY N/A 08/22/2023 Performed by Val Chan MD at [facility] ENDOSCOPY SIGMOID COLECTOMY (HISTORICAL) 2010 Laparoscopic sigmoid colectomy for diverticulitis Medications Prior to Admission: No current facility-administered medications on file prior to encounter. Current Outpatient Medications on File Prior to Encounter Medication Sig Dispense Refill atorvastatin (Lipitor) 10 MG tablet Take 10 mg by mouth daily. brimonidine (AlphaGAN) 0.2 % ophthalmic solution 1 drop 2 times daily. glimepiride (Amaryl) 4 MG tablet Take 4 mg by mouth every morning (before breakfast). losartan (Cozaar) 25 MG tablet Take by mouth. polyethylene glycol, PEG, 3350 (Miralax) 17 g packet Take 17 g by mouth daily for 3 days. 3 packet 0 Semaglutide (OZEMPIC, 1 MG/DOSE, SC) Inject 1 mg under the skin 1 (one) time per week. docusate sodium (Colace) 100 MG capsule Take 1 capsule (100 mg) by mouth in the morning and 1 capsule (100 mg) in the evening. 60 capsule 0 lansoprazole (Prevacid) [address] capsule Take by mouth every morning (before breakfast). Do not crush or chew. ondansetron (Zofran) 4 MG tablet Take 1 tablet (4 mg) by mouth in the morning and 1 tablet (4 mg) at noon and 1 tablet (4 mg) in the evening and 1 tablet (4 mg) before bedtime. Do all this for 3 days. 12 tablet 0 polyethylene glycol, PEG, 3350 (Miralax) 17 g packet Take by mouth. Allergies: Grass pollen(k-o-r-t-swt todd), Molds & smuts, Lisinopril, Neomycin, Penicillins, Seasonal, andSulfa antibiotics Social History Socioeconomic History Marital status: Tobacco Use Smoking status: Never Smokeless tobacco: Never Substance and Sexual Activity Alcohol use: Not Currently Comment: SOCIALLY Drug use: Never Social Determinants of Health Intimate Partner Violence: Not At Risk (08/21/2023) Humiliation, Afraid, Rape, and Kick questionnaire Fear of Current or Ex-Partner: No Emotionally Abused: No Physically Abused: No Sexually Abused: No No family history on file. Review of Systems: Review of Systems Constitutional: Negative for appetite change, chills, diaphoresis, fever and unexpected weight change. HENT: Negative for nosebleeds and postnasal drip. Eyes: Negative for pain and itching. Respiratory: Negative for apnea and shortness of breath. Cardiovascular: Negative for chest pain and palpitations. Gastrointestinal: Positive for abdominal pain, constipation and nausea. Negative for abdominal distention, anal bleeding, blood in stool, diarrhea, rectal pain and vomiting. Genitourinary: Negative for difficulty urinating and dysuria. Skin: Negative for color change and rash. Neurological: Negative for seizures and numbness. All other systems reviewed and are negative. Physical Exam: Vitals: 08/22/23 0955 BP: 129/65 Pulse: 68 Resp: 18 Temp: 36.3 C (97.4 F) SpO2: 97% No intake/output data recorded. Physical Exam Vitals and nursing note reviewed. Constitutional: General: She is not in acute distress. Appearance: She is not ill-appearing, toxic-appearing or diaphoretic. HENT: Head: Normocephalic and atraumatic. Right Ear: External ear normal. Left Ear: External ear normal. Nose: Nose normal. No rhinorrhea. Mouth/Throat: Mouth: Mucous membranes are moist. Pharynx: No posterior oropharyngeal erythema. Eyes: General: Right eye: No discharge. Left eye: No discharge. Conjunctiva/sclera: Conjunctivae normal. Cardiovascular: Rate and Rhythm: Normal rate. Pulmonary: Effort: Pulmonary effort is normal. No respiratory distress. Breath sounds: No stridor. Abdominal: General: A surgical scar is present. There is no distension. Palpations: Abdomen is soft. Tenderness: There is abdominal tenderness (Minimal) in the left lower quadrant. There is no guarding or rebound. Skin: General: Skin is warm. Capillary Refill: Capillary refill takes less than 2 seconds. Neurological: General: No focal deficit present. Mental Status: She is alert and oriented to person, place, and time. Mental status is at baseline. Psychiatric: Mood and Affect: Mood normal. Thought Content: Thought content normal. Laboratory Data: CBC: Lab Results Component Value Date WBC 5.9 08/22/2023 RBC 4.25 08/22/2023 HGB 11.8 08/22/2023 HCT 37.5 08/22/2023 MCV 88.2 08/22/2023 MCH 27.8 08/22/2023 MCHC 31.5 08/22/2023 RDW 13.1 08/22/2023 PLT 165 08/22/2023 MPV 10.6 08/22/2023 BMP: Lab Results Component Value Date NA 137 08/22/2023 K 3.7 08/22/2023 CL 106 08/22/2023 CO2 22 08/22/2023 BUN 10 08/22/2023 CREATININE 0.63 08/22/2023 CALCIUM 8.7 08/22/2023 GLUCOSE 175 (H) 08/22/2023 Hepatic Function Panel: Lab Results Component Value Date ALKPHOS 83 08/21/2023 ALT 26 08/21/2023 AST 31 08/21/2023 PROT 7.7 08/21/2023 BILITOT 0.8 08/21/2023 BILIDIR 0.0 08/21/2023 PT/INR: No results found for: PROTIME, INR Troponin: No results found for: TROPONINI Lipase: Lab Results Component Value Date LIPASE 97 08/21/2023 Imaging: CT abdomen pelvis w contrast Result Date: 08/20/2023 Patient Name: SHEYLA RAMIREZ : 1945 Exam Date/Time: 08/20/2023 08:37 Procedure: CT ABDOMEN PELVIS W CONTRAST Ordering Provider: CALHOUN KAITLYN Reason For Exam: concern for SBO, Nausea CT ABDOMEN AND PELVIS WITH CONTRAST CLINICAL INDICATION: Abdominal pain. TECHNIQUE: Multi-axial 3mm sections through the abdomen and pelvis following 75 mL of Isoview contrast media. No oral contrast was administered. Coronal and sagittal reconstructions were reviewed. Dose reduction was employed with automated exposure control. COMPARISON: None. FINDINGS: Lower thorax: Normal. Stomach: Unremarkable. Liver: Normal size and contours. Normal hepaticparenchyma. 2.7 x 3.2 cm subcapsular low-density hepatic lesion within segment VII, probably a cyst. No additional hepatic lesion identified. Biliary tree: Unremarkable gallbladder by CT. No biliary dilatation. Spleen: Normal. Adrenals: Normal. Pancreas: Normal. Kidneys: Symmetric contrast enhancement without evidence of hydronephrosis. No focal renal lesion is identified. Free air or fluid: None. Mesenteric/retroperitoneal: No adenopathy or inflammation. Aorta: Normal caliber of aorta and bilateral common iliac arteries. Bowel: Post appendectomy.. Bowel anastomoses. No inflammatory change orbowel dilatation is noted. Urinary bladder: Unremarkable. Abdominal wall/soft tissues: No ventral he rnia is evident. Pelvic organs/viscera: The uterus is present. Inguinal: No lymphadenopathy. Osseous structures: Multilevel spondylosis, including levoscoliosis. No suspicious osseous lesion. 1. No evidence of acute infectious or inflammatory process in the abdomen or pelvis. 2. 2.7 x 3.2 cm subcapsular low-density hepatic lesion within segment VII, probably a cyst. Report Dictated on Electronically Signed By: Artis Stevens MD Electronically Signed Date/Time: 08/20/2023 9:00 AM EDT ASSESSMENT AND PLAN: Sheyla Ramirez is a 77 y.o. female with LLQ tenderness, constipation, and PSHx of lap sigmoid 2/2 diverticulitis presenting with concern for intermittent SBO, with recent imaging inconclusive. CT with PO and IV contrast with 3 hour PO contrast elapse to evaluate for bowel obstruction Recommend medical admission Clear liquid diet overnight, n.p.o. midnight consult colorectal surgery, Dr. Chan, he plans to perform diagnostic flex sig tomorrow morning -Morning enema prior to flex sig Discussed with Dr. Jaye Bergman MD PGY5, General Surgery Pager #[phone] STATION The patient was seen and examined. I have reviewed the patients presentation, histories, imaging and serology studies. I agree with the above assessment and plan. Patient seen post sigmoidoscopy. Appropriately lethargic and resting in bed. CT scan of the abdomenand pelvis was personally reviewed and interpreted. There appears to be p.o. contrast throughout the small intestine and colon with a paucity of contrast noted at the descending colon and anastomosis. Based on the CT scan, there was no evidence of obstruction. Patient has a previous history of colonic stricture at previous anastomosis requiring dilation. Based on this history, colorectal surgery was consulted for flexible endoscopy and possible anastomotic dilation. This was performed this morning and there was no evidence of stricturing at the anastomosis. At this point, I recommend monitoring the patient for symptoms post procedure and advancing diet as tolerated. Recommend observation overnight. Case was discussed with the patient's friend who is at bedside. All the patient's questionswere answered. No acute surgical intervention at this time. We will continue to follow. I personally performed the evaluation and management of Sheyla Ramirez in the development of a treatment plan for this patient. I personally interviewed the patient and performed an individual physical examination. In addition, I discussed the patient's condition and treatment options with them. I have also reviewed and agree with the past medical, family and social history unless otherwise noted. All of the patient's questions were answered. I personally spent 75 minutes of time between the face to face encounter, physical exam, reviewing the medical history, coordinating the patient's care, cou nseling/educating the patient, ordering prescriptions/medications/tests/procedures, interpreting results and documenting clinical information in the patient's electronic health record on the day of e encounter. Patient Care Team: Lena Thorne as PCP - General (Internal Medicine) Chandana Batista (Gastroenterology) documented in this [place] [facility] NoteHospitalist Progress Note 08/23/2023 8:09 AM [phone]: Please page me for patient care issues. [phone]: Please page [facility] night Hospitalist for any issues. Subjective: Admit Date: 08/21/2023 PCP: LENA THORNE Room#: [id number] A Interval History: Patient seen and examined 77-year-old female past medical history of sigmoid diverticulitis status post sigmoid colectomy, DM, gout, hypertension, hyperlipidemia. Patient denies any abdominal pain No chest pain, shortness of breath, cough No nausea, vomiting Had 1 episode of loose BM yesterday Lab data's / Imaging studies reviewed Accu-Cheks reviewed Potassium 4, creatinine 0.5, LFT panel normal, hemoglobin 11.9 Past medical history : Past Medical History: Diagnosis Date Diabetes mellitus, type 2 (HCC) Gastro-esophageal reflux disease without esophagitis Glaucoma Hypercholesterolemia Other constipation Other intestinal obstruction unspecified as to partial versus complete obstruction (HCC) Other specified symptoms and signs involving the digestive system and abdomen Personal history of colonic polyps Adult diet Easy to Chew @[id number]@ Medications: atorvastatin, 10 mg, Oral, Daily brimonidine, 1 drop, Both Eyes, BID docusate sodium, 100 mg, Oral, q12h insulin lispro, 0-6 Units, SubCUTAneous, TID WC lansoprazole, 30 mg, Oral, qAM AC latanoprost, 1 drop, Both Eyes, Nightly losartan, 25 mg, Oral, Daily LABS: CBC: Recent Labs 08/21/23 1403 08/22/23 0440 08/23/23 0039 WBC 5.7 5.9 5.9 RBC 4.96 4.25 4.18 HGB 14.1 11.8 11.9 HCT 43.2 37.5 37.1 MCV 87.1 88.2 88.8 RDW 13.2 13.1 13.2 PLT 190 165 158 BMP: Recent Labs 08/21/23 1403 08/22/23 0440 08/23/23 0039 NA 138 137 138 K 4.2 3.7 4.0 CL 104 106 108* CO2 26 22 23 BUN 14 10 8 CREATININE 0.66 0.63 0.58 GLUCOSE 115* 175* 96 CALCIUM 9.6 8.7 9.2 ANIONGAP 9 10 8 LIVER PROFILE: Recent Labs 08/21/23 1403 08/23/23 0039 AST 31 23 ALT 26 20 BILITOT 0.8 0.6 ALKPHOS 83 65 PROT 7.7 6.0* PT/INR: No results for input(s): PROTIME, INR in the last 72 hours. CARDIAC ENZYMES: No results for input(s): TROPONINI in the last 72 hours. Procalcitonin: No results found for: PROCAL US abdomen complete Result Date: 08/22/2023 Impression: 1. No cholelithiasis or evidence of acute cholecystitis. 2. Mild dilatation of the common bile duct measuring up to 9 mm. Recommend correlation with LFTs for evidence of obstruction. MRI/MRCP could be considered for further evaluation. Report Dictated on Electronically Signed By: Zi Simms DR Electronically Signed Date/Time: 08/22/2023 1:15 PM EDT I reviewed: [x] laboratory results [x] radiographic results At the time of today's encounter. Pt was informed about the results. Objective: Vitals: BP 136/73 (BP Location: Left arm, Patient Position: Sitting) Pulse 77 Temp 36.4 ?C (97.5 ?F) (Temporal) Resp 16 Ht 5' 7 (1.702 m) Wt 150 lb (68 kg) SpO2 97% BMI 23.49 kg/m? Pulse Ox: SpO2 Av.6 % Min: 95 % Max: 99 % Supplemental O2: General appearance: No apparent distress, HEENT: Eyes: No scleral icterus Oral: Tongue is semi-moist Cardiovascular: S1S2 heard, RRR Respiratory: Clear to auscultation bilaterally anteriorly Abdomen: Soft, non-tender, non-distended, no mass palpable with normal bowel sounds. Neurology- Awake alert, answering questions No focal neurology noted Extremity- no significant peripheral edema both lower extremities Assessment Acute problems-- Left lower quadrant pain, prior history of diverticulitis, status post sigmoid colectomy, status post flexible sigmoidoscopy which showed no stenosis, prior anastomosis appeared well and open. Chronic issue-- DM Hypertension Hyperlipidemia GERD Plan Discontinue IV fluid Colorectal surgical recommendation noted--Endocrinology team consulted, patient is on Ozempic, to rule out GI dysmotility secondary to Ozempic. Diet was advanced today Continue losartan 25 mg for hypertension Monitor Accu-Chek, continue low-dose sliding scale insulin PPI for GERD Patient wanted Colace to be discontinued, to be started on MiraLax daily Continue rest of medication as ordered SCDs for DVT prophylaxis Patient was informed about all workup treatment plan Discussed with nursing staff and TCC regarding management/ discharge plan. Toxic drug monitoring/narrow therapeutic index drug monitoring : # Drug name : Insulin # Route administered : Subcu # Method of monitoring : Accu-Chek Extended Emergency Contact Information Primary Emergency Contact: julian ramirez Mobile Relation: Brother Secondary Emergency Contact: ania Santo Mobile Relation: Sister Advance Directive: Full Code Discharge planning: Anticipated discharge in 1 to 2 days/pending improvement NOTE: This report was transcribed using voice recognition software. (more content not included)...[facility] [id number] NoteDepartment of General Surgery Surg 4 Service Daily Progress Note ADMIT DATE: 08/21/2023 TODAY'S DATE: 08/23/2023 SUBJECTIVE: No acute events overnight. Pain is well controlled on current medications. Some flatus after negative Flex Sig. Took FLD well, ROS: Noted above unless otherwise mentioned. OBJECTIVE: VITALS: Temp: [36.3 ?C (97.4 ?F)-36.7 ?C (98 ?F)] 36.4 ?C (97.5 ?F) Heart Rate: [68-85] 77 Resp: [16-18] 16 BP: (102-136)/(56-73) 136/73 INTAKE/OUTPUT: Intake/Output Summary (Last 24 hours) at 08/23/2023 0738 Last data filed at 08/22/2023 1450 Gross per 24 hour Intake 1363 ml Output -- Net 1363 ml I/O last 3 completed shifts: In: 1483 (21.8 mL/kg) [P.O.:120; I.V.:1313 (19.3 mL/kg); IV Piggyback:50] Out: - (0 mL/kg) Weight: 68 kg No intake/output data recorded. PHYSICAL EXAM: Gen: NAD, A&Ox3, pain well controlled Heart: RRR, well perfused. Lungs: Symmetric chest rise, normal work of breathing, no respiratory distress. Abd: Soft, non-tender, non-distended. Ext: Non-edematous, non-erythematous, no tenderness. Skin: Warm, dry, well perfused, no obvious rashes, cellulitis or gross discoloration LABS CBC: Auto WBC Date Value Ref Range Status 08/23/2023 5.9 3.6 - 10.7 10*3/uL Final 08/22/2023 5.9 3.6 - 10.7 10*3/uL Final 08/21/2023 5.7 3.6 - 10.7 10*3/uL Final Hemoglobin Date Value Ref Range Status 08/23/2023 11.9 11.7 - 16.0 g/dL Final 08/22/2023 11.8 11.7 - 16.0 g/dL Final 08/21/2023 14.1 11.7 - 16.0 g/dL Final Platelets Date Value Ref Range Status 08/23/2023 158 140 - 440 10*3/uL Final 08/22/2023 165 140 - 440 10*3/uL Final 08/21/2023 190 140 - 440 10*3/uL Final BMP: SODIUM Date Value Ref Range Status 08/23/2023 138 135 - 145 mmol/L Final 08/22/2023 137 135 - 145 mmol/L Final 08/21/2023 138 135 - 145 mmol/L Final POTASSIUM Date Value Ref Range Status 08/23/2023 4.0 3.5 - 5.1 mmol/L Final 08/22/2023 3.7 3.5 - 5.1 mmol/L Final 08/21/2023 4.2 3.5 - 5.1 mmol/L Final CHLORIDE Date Value Ref Range Status 08/23/2023 108 (H) 98 - 107 mmol/L Final 08/22/2023 106 98 - 107 mmol/L Final 08/21/2023 104 98 - 107 mmol/L Final CARBON DIOXIDE Date Value Ref Range Status 08/23/2023 23 22 - 30 mmol/L Final 08/22/2023 22 22 - 30 mmol/L Final 08/21/2023 26 22 - 30 mmol/L Final UREA NITROGEN Date Value Ref Range Status 08/23/2023 8 7 - 17 mg/dL Final 08/22/2023 10 7 - 17 mg/dL Final 08/21/2023 14 7 - 17 mg/dL Final CREATININE Date Value Ref Range Status 08/23/2023 0.58 0.52 - 1.04 mg/dL Final 08/22/2023 0.63 0.52 - 1.04 mg/dL Final 08/21/2023 0.66 0.52 - 1.04 mg/dL Final Hepatic: AST (SGOT) Date Value Ref Range Status 08/23/2023 23 15 - 46 U/L Final 08/21/2023 31 15 - 46 U/L Final 08/20/2023 26 15 - 46 U/L Final ALT Date Value Ref Range Status 08/23/2023 20 0 - 34 U/L Final 08/21/2023 26 0 - 34 U/L Final 08/20/2023 23 0 - 34 U/L Final ALBUMIN Date Value Ref Range Status 08/23/2023 3.4 (L) 3.5 - 5.0 g/dL Final 08/21/2023 4.5 3.5 - 5.0 g/dL Final 08/20/2023 4.2 3.5 - 5.0 g/dL Final BILIRUBIN, TOTAL Date Value Ref Range Status 08/23/2023 0.6 0.2 - 1.3 mg/dL Final 08/21/2023 0.8 0.2 - 1.3 mg/dL Final 08/20/2023 0.6 0.2 - 1.3 mg/dL Final BILIRUBIN, DIRECT Date Value Ref Range Status 08/21/2023 0.0 0.0 - 0.3 mg/dL Final ALKALINE PHOSPHATASE Date Value Ref Range Status 08/23/2023 65 38 - 126 U/L Final 08/21/2023 83 38 - 126 U/L Final 08/20/2023 76 38 - 126 U/L Final Current Inpatient Medications Scheduled Meds:atorvastatin, 10 mg, Oral, Daily brimonidine, 1 drop, Both Eyes, BID docusate sodium, 100 mg, Oral, q12h enoxaparin, 40 mg, SubCUTAneous, q24h insulin lispro, 0-6 Units, SubCUTAneous, TID WC lansoprazole, 30 mg, Oral, qAM AC latanoprost, 1 drop, Both Eyes, Nightly losartan, 25 mg, Oral, Daily Continuous Infusions: PRN Meds:PRN medications: acetaminophen OR acetaminophen, dextrose, dextrose, glucagon (rDNA), glucose, ondansetron ODT OR ondansetron, polyethylene glycol (PEG) 3350 ASSESSMENT: Sheyla Ramirez is a 77 y.o. female with LLQ tenderness, constipation, and PSHx of lap sigmoid 2/2 diverticulitis presenting with concern for partial large bowel obstruction. PLAN: - Flex Sig - no stenosis, colorectal sign off -Advance to GI soft diet, SLIV -Endocrine consult - ?Ozempic contribution, pt hesitant to stop medication -Continue supportive care, working toward elective outpatient HH repair - due to see Dr Kruse in the office this Thursday -RUQ US- no cholelithiasis - Pain and nausea medications PRN - ALS team to follow D/w Dr Jaye Bergman MD PGY5, General Surgery Pager #[phone] ATTESTATION The patient was seen and examined. I have reviewed the patients presentation, histories, imaging and serology studies. I agree with the above assessment and plan. Ab: Soft, Non-distended, non-tender Patient seen and examined this morning. Pain is well-controlled (more content not included)...[facility] [id number] Plan of care note* Care Plan - Luis Walker RN - 08/23/2023 1:45 AM EDT Problem: Pain - Adult Goal: Verbalizes/displays adequate comfort level or baseline comfort level Outcome: Progressing Problem: Safety - Adult Goal: Free from fall injury Outcome: Progressing Problem: Discharge Planning Goal: Discharge to home or other facility with appropriate resources Outcome: Progressing Problem: Chronic Conditions and Co-morbidities Goal: Patient's chronic conditions and co-morbidity symptoms are monitored and maintained or improved Outcome: Progressing [facility]* Care Coordination - Lizbeth Valdez RN - 08/22/2023 5:50 PM EDT Care Managment Initial Assessment Date: 08/22/2023 Patient Name: Sheyla Ramirez : 1945 Patient Information Source of Information: Patient Cognition/Language: WFL - Within Functional Limits Permission given to speak with patient community service representative/caregiver as indicated: No Confirmation of Payer with patient/family: Yes Payer Name: Medicare [place]: No Confirmation of Primary Care Physician: Confirmed PCP Name: Dr. Thorne Seen in last 2 years?: Yes Primary Caregiver: Self If assistance needed, confirmed caregiver ready, willing and able to care for patient at discharge: Confirmed with: Living Arrangements Current Residence: House Number of Floors 1 Number of Entry Steps: 2 Bed/Bath Levels: Both first floor Facility: Facility Name: Plan to Return: Lives with: Alone Support Systems: Family members, Friends/neighbors Activities of Daily Living Ambulation: Independent Bathing/Dressing: Independent Elimination/Continence/Toileting: Independent Feeding: Independent Who Assists with Activities of Daily Living: Instrumental Activities of Daily Living Prescription Coverage: Yes Pharmacy Used: [facility] Medication Management: Independent Transportation/Shopping: Independent Transportation Mode: Car Needs Assistance with Transportation at Discharge: No (Friend Bonnie to transport) Meal Preparation: Independent Laundry/Cleaning: Independent Finances/Bill Paying: Independent Communication: Independent Types of Care Services/Equipment Utilized Care Services: Dialysis Type: Durable Medical Equipment: Patient's Goal/Discharge Plan Patient expects to be discharged to: Home Discharge Planning Actions: No needs identified Patient's Choice Rights and [employer] and Collaborative Relationships Disclosed as Indicated for Post-Acute Care: Interdisciplinary Team Engagement: Social Work Referral for: Additional Information: Called into patient's room, Introduced self and role. Discussed discharge planning. Patient has insurance and prescription coverage. Patient lives alone and has transportation available upon discharge. Discharge plan is home, no needs anticipated. Patient verbalized understanding of discharge plan and agrees with plan. Lizbeth Valdez RN [facility] [id number] Note* Care Coordination - Lizbeth Valdez RN - 08/22/2023 5:50 PM EDT Care Managment Initial Assessment Date: 08/22/2023 Patient Name: Sheyla Ramirez : 1945 Patient Information Source of Information: Patient Cognition/Language: WFL - Within Functional Limits Permission given to speak with patient community service representative/caregiver as indicated: No Confirmation of Payer with patient/family: Yes Payer Name: Medicare : No Confirmation of Primary Care Physician: Confirmed PCP Name: Dr. Thorne Seen in last 2 years?: Yes Primary Caregiver: Self If assistance needed, confirmed caregiver ready, willing and able to care for patient at discharge: Confirmed with: Living Arrangements Current Residence: House Number of Floors 1 Number of Entry Steps: 2 Bed/Bath Levels: Both first floor Facility: Facility Name: Plan to Return: Lives with: Alone Support Systems: Family members, Friends/neighbors Activities of Daily Living Ambulation: Independent Bathing/Dressing: Independent Elimination/Continence/Toileting: Independent Feeding: Independent Who Assists with Activities of Daily Living: Instrumental Activities of Daily Living Prescription Coverage: Yes Pharmacy Used: [facility] Medication Management: Independent Transportation/Shopping: Independent Transportation Mode: Car Needs Assistance with Transportation at Discharge: No (Friend Bonnie to transport) Meal Preparation: Independent Laundry/Cleaning: Independent Finances/Bill Paying: Independent Communication: Independent Types of Care Services/Equipment Utilized Care Services: Dialysis Type: Durable Medical Equipment: Patient's Goal/Discharge Plan Patient expects to be discharged to: Home Discharge Planning Actions: No needs identified Patient's Choice Rights and [employer] and Collaborative Relationships Disclosed as Indicated for Post-Acute Care: Interdisciplinary Team Engagement: Social Work Referral for: Additional Information: Called into patient's room, Introduced self and role. Discussed discharge planning. Patient has insurance and prescription coverage. Patient lives alone and has transportation available upon discharge. Discharge plan is home, no needs anticipated. Patient verbalized understanding of discharge plan and agrees with plan. Lizbeth Valdez RN [facility] [id number] NoteHospitalist Progress Note 08/22/2023 4:45 PM [phone]: Please page me for patient care issues. [phone]: Please page [facility] night Hospitalist for any issues. Subjective: Admit Date: 08/21/2023 PCP: LENA THORNE Room#: [id number]/[id number] A Interval History: Patient seen and examined 77-year-old female past medical history of sigmoid diverticulitis status post sigmoid colectomy, DM, gout, hypertension, hyperlipidemia. Admitted following left lower quadrant pain, nausea. Patient denies any blood in stool, had bowel movement today Denies any abdominal pain, nausea today. No chest pain, shortness of breath, cough, sputum No fever, chills. Lab data's / Imaging studies reviewed LFT panel/lipase normal, CBC normal, lactic acid 0.7, urine analysis negative, A1c 8.4 Abdominal ultrasonogram showed no evidence of cholelithiasis or cholecystitis. Mild dilatation of common bile duct measuring up to [address] scan of abdomen/pelvis done on 08/21/2023 showed findings suspicious for cholelithiasis. No other acute finding or significant interval changes noted. Past medical history : Past Medical History: Diagnosis Date Diabetes mellitus, type 2 (HCC) Gastro-esophageal reflux disease without esophagitis Glaucoma Hypercholesterolemia Other constipation Other intestinal obstruction unspecified as to partial versus complete obstruction (HCC) Other specified symptoms and signs involving the digestive system and abdomen Personal history of colonic polyps Adult diet Full liquid @[id number]@ Medications: lactated Ringer's, 75 mL/hr, Last Rate: 75 mL/hr (08/22/23 1450) atorvastatin, 10 mg, Oral, Daily brimonidine, 1 drop, Both Eyes, BID docusate sodium, 100 mg, Oral, q12h insulin lispro, 0-6 Units, SubCUTAneous, TID WC lansoprazole, 30 mg, Oral, qAM AC latanoprost, 1 drop, Both Eyes, Nightly losartan, 25 mg, Oral, Daily LABS: CBC: Recent Labs 08/20/23 0748 08/21/23 1403 08/22/23 0440 WBC 6.4 5.7 5.9 RBC 4.54 4.96 4.25 HGB 13.1 14.1 11.8 HCT 39.6 43.2 37.5 MCV 87.2 87.1 88.2 RDW 13.2 13.2 13.1 PLT 191 190 165 BMP: Recent Labs 08/20/23 0748 08/21/23 1403 08/22/23 0440 NA 137 138 137 K 4.1 4.2 3.7 CL 103 104 106 CO2 24 26 22 BUN 24* 14 10 CREATININE 0.84 0.66 0.63 GLUCOSE 123* 115* 175* CALCIUM 9.6 9.6 8.7 ANIONGAP 11 9 10 LIVER PROFILE: Recent Labs 08/20/23 0748 08/21/23 1403 AST 26 31 ALT 23 26 BILITOT 0.6 0.8 ALKPHOS 76 83 PROT 7.1 7.7 PT/INR: No results for input(s): PROTIME, INR in the last 72 hours. CARDIAC ENZYMES: No results for input(s): TROPONINI in the last 72 hours. Procalcitonin: No results found for: PROCAL US abdomen complete Result Date: 08/22/2023 Impression: 1. No cholelithiasis or evidence of acute cholecystitis. 2. Mild dilatation of the common bile duct measuring up to 9 mm. Recommend correlation with LFTs for evidence of obstruction. MRI/MRCP could be considered for further evaluation. Report Dictated on Electronically Signed By: Zi Simms DR Electronically Signed Date/Time: 08/22/2023 1:15 PM EDT I reviewed: [x] laboratory results [x] radiographic results At the time of today's encounter. Pt was informed about the results. Objective: Vitals: BP 129/65 (BP Location: Left arm, Patient Position: Sitting) Pulse 68 Temp 36.3 ?C (97.4 ?F) (Temporal) Resp 18 Ht 5' 7 (1.702 m) Wt 150 lb (68 kg) SpO2 97% BMI 23.49 kg/m? Pulse Ox: SpO2 Av % Min: 95 % Max: 99 % Supplemental O2: General appearance: No apparent distress, HEENT: Eyes: No scleral icterus No pallor Oral: Tongue is semi-moist Cardiovascular: S1S2 heard, RRR Respiratory: Clear to auscultation bilaterally anteriorly Abdomen: Soft, non-tender, non-distended, no mass palpable with normal bowel sounds. Musculoskeletal: No obvious deformities seen Neurology- Awake alert, answering questions No focal neurology noted Extremity- no significant peripheral edema both lower extremities Assessment Acute problems-- Left lower quadrant pain, prior history of diverticulitis, status post sigmoid colectomy, status post flexible sigmoidoscopy which showed no stenosis, prior anastomosis appeared well and open. Chronic issue-- DM Hypertension Hyperlipidemia GERD Plan Continue Ringer lactate 75 cc/h Colorectal surgical recommendation noted Full liquid diet, advance as tolerated Losartan 25 mg hypertension Monitor Accu-Chek, changed to low-dose sliding scale insulin PPI for GERD CBC, CMP panel in a.m. Continue rest of medication as ordered SCDs for DVT prophylaxis Patient/patient's sister present at bedside --was informed about all work up and treatment plan Discussed with nursing staff and TCC regarding management/ discharge plan. Toxic drug monitoring/narrow therapeutic index drug monitoring : # Drug name : Insulin # Route administered : Subcu # Method of m (more content not included)...[facility]07-06-2024 Hospital Discharge instructions* Discharge Instr - Activity* Piyush Zaragoza MD - 08/22/2023 3:18 PM EDT As tolerated * Discharge Instr - Diet* Piyuhs Zaragoza MD - 08/22/2023 3:18 PM EDT ADA 1800 diet documented in this [facility]07-06-2024 Plan of care note* Care Plan - Macario Kelly RN - 08/22/2023 2:49 PM EDT Problem: Pain - Adult Goal: Verbalizes/displays adequate comfort level or baseline comfort level Outcome: Progressing Problem: Safety - Adult Goal: Free from fall injury Outcome: Progressing Problem: Discharge Planning Goal: Discharge to home or other facility with appropriate resources Outcome: Progressing Problem: Chronic Conditions and Co-morbidities Goal: Patient's chronic conditions and co-morbidity symptoms are monitored and maintained or improved Outcome: Progressing [id number] [facility] Surg 4 Service Daily Progress Note ADMIT DATE: 08/21/2023 TODAY'S DATE: 08/22/2023 SUBJECTIVE: No acute events overnight. Pain is well controlled on current medications. Some flatus, small BM after gastrograffin. Got enema this am. NPO and consented for Scope ROS: Noted above unless otherwise mentioned. OBJECTIVE: VITALS: Temp: [35.9 ?C (96.7 ?F)-37.1 ?C (98.7 ?F)] 35.9 ?C (96.7 ?F) Heart Rate: [68-85] 70 Resp: [16-18] 18 BP: (102-148)/(56-71) 118/60 INTAKE/OUTPUT: Intake/Output Summary (Last 24 hours) at 08/22/2023 0915 Last data filed at 08/22/2023 0829 Gross per 24 hour Intake 133 ml Output -- Net 133 ml No intake/output data recorded. I/O this shift: In: 133 [P.O.:120; I.V.:13] Out: - PHYSICAL EXAM: Gen: NAD, A&Ox3, pain well controlled Heart: RRR, well perfused. Lungs: Symmetric chest rise, normal work of breathing, no respiratory distress. Abd: Soft, non-tender, non-distended. Ext: Non-edematous, non-erythematous, no tenderness. Skin: Warm, dry, well perfused, no obvious rashes, cellulitis or gross discoloration LABS CBC: Auto WBC Date Value Ref Range Status 08/22/2023 5.9 3.6 - 10.7 10*3/uL Final 08/21/2023 5.7 3.6 - 10.7 10*3/uL Final 08/20/2023 6.4 3.6 - 10.7 10*3/uL Final Hemoglobin Date Value Ref Range Status 08/22/2023 11.8 11.7 - 16.0 g/dL Final 08/21/2023 14.1 11.7 - 16.0 g/dL Final 08/20/2023 13.1 11.7 - 16.0 g/dL Final Platelets Date Value Ref Range Status 08/22/2023 165 140 - 440 10*3/uL Final 08/21/2023 190 140 - 440 10*3/uL Final 08/20/2023 191 140 - 440 10*3/uL Final BMP: SODIUM Date Value Ref Range Status 08/22/2023 137 135 - 145 mmol/L Final 08/21/2023 138 135 - 145 mmol/L Final 08/20/2023 137 135 - 145 mmol/L Final POTASSIUM Date Value Ref Range Status 08/22/2023 3.7 3.5 - 5.1 mmol/L Final 08/21/2023 4.2 3.5 - 5.1 mmol/L Final 08/20/2023 4.1 3.5 - 5.1 mmol/L Final CHLORIDE Date Value Ref Range Status 08/22/2023 106 98 - 107 mmol/L Final 08/21/2023 104 98 - 107 mmol/L Final 08/20/2023 103 98 - 107 mmol/L Final CARBON DIOXIDE Date Value Ref Range Status 08/22/2023 22 22 - 30 mmol/L Final 08/21/2023 26 22 - 30 mmol/L Final 08/20/2023 24 22 - 30 mmol/L Final UREA NITROGEN Date Value Ref Range Status 08/22/2023 10 7 - 17 mg/dL Final 08/21/2023 14 7 - 17 mg/dL Final 08/20/2023 24 (H) 7 - 17 mg/dL Final CREATININE Date Value Ref Range Status 08/22/2023 0.63 0.52 - 1.04 mg/dL Final 08/21/2023 0.66 0.52 - 1.04 mg/dL Final 08/20/2023 0.84 0.52 - 1.04 mg/dL Final Hepatic: AST (SGOT) Date Value Ref Range Status 08/21/2023 31 15 - 46 U/L Final 08/20/2023 26 15 - 46 U/L Final ALT Date Value Ref Range Status 08/21/2023 26 0 - 34 U/L Final 08/20/2023 23 0 - 34 U/L Final ALBUMIN Date Value Ref Range Status 08/21/2023 4.5 3.5 - 5.0 g/dL Final 08/20/2023 4.2 3.5 - 5.0 g/dL Final BILIRUBIN, TOTAL Date Value Ref Range Status 08/21/2023 0.8 0.2 - 1.3 mg/dL Final 08/20/2023 0.6 0.2 - 1.3 mg/dL Final BILIRUBIN, DIRECT Date Value Ref Range Status 08/21/2023 0.0 0.0 - 0.3 mg/dL Final ALKALINE PHOSPHATASE Date Value Ref Range Status 08/21/2023 83 38 - 126 U/L Final 08/20/2023 76 38 - 126 U/L Final Current Inpatient Medications Scheduled Meds:[Transfer Hold] atorvastatin, 10 mg, Oral, Daily [Transfer Hold] brimonidine, 1 drop, Both Eyes, BID [Transfer Hold] docusate sodium, 100 mg, Oral, q12h [Transfer Hold] insulin regular, 0-6 Units, SubCUTAneous, q6h [Transfer Hold] lansoprazole, 30 mg, Oral, qAM AC [Transfer Hold] latanoprost, 1 drop, Both Eyes, Nightly [Transfer Hold] losartan, 25 mg, Oral, Daily [Transfer Hold] Non-Formulary Medication, , Oral, qPM Continuous Infusions:lactated Ringer's, 75 mL/hr, Last Rate: 75 mL/hr (08/22/23 0835) PRN Meds:PRN medications: [Transfer Hold] acetaminophen OR [Transfer Hold] acetaminophen, [Transfer Hold] dextrose, [Transfer Hold] dextrose, [Transfer Hold] glucagon (rDNA), [Transfer Hold] glucose, [Transfer Hold] ondansetron ODT OR [Transfer Hold] ondansetron, [Transfer Hold] polyethylene glycol (PEG) 3350 ASSESSMENT: Sheyla Ramirez is a 77 y.o. female with LLQ tenderness, constipation, and PSHx of lap sigmoid 2/2 diverticulitis presenting with concern for partial large bowel obstruction. PLAN: - Flex Sig - no stenosis, colorectal sign off -Continue supportive care, working toward elective outpatient HH repair -RUQ US to further eval stones/sludge, may require cholecystectomy at time of planned surgery - Can trial soft diet as tolerated - Pain and nausea medications PRN - ALS team to follow D/w Dr Jaye Bergman MD PGY5, General Surgery Pager #[phone] ATTESTATION The patient was seen and examined. I have reviewed the patients presentation, histories, imaging and serology studies. I agree with the above assessment and plan. Please refer to consult note (more content not included)...[facility]07-06-2024 Note* Perioperative Nursing Note - Garima Powell RN - 08/22/2023 8:35 AM EDT POST ENDOSCOPY PROCEDURE TRANSFER REPORT Physician: Rocio Procedure completed: Flexible sigmoidoscopy Specimens obtained: none Medications administered: propofol 130mg Findings: see note Complications: none Report called to H5 RN Please call the Main Endoscopy Dept at [phone] for questions. [id number] Note* Perioperative Nursing Note - Garima Powell RN - 08/22/2023 8:35 AM EDT POST ENDOSCOPY PROCEDURE TRANSFER REPORT Physician: Rocio Procedure completed: Flexible sigmoidoscopy Specimens obtained: none Medications administered: propofol 130mg Findings: see note Complications: none Report called to H5 RN Please call the Main Endoscopy Dept at [phone] for questions. [place] [id number] NotePOST ENDOSCOPY PROCEDURE TRANSFER REPORT Physician: Rocio Procedure completed: Flexible sigmoidoscopy Specimens obtained: none Medications administered: propofol 130mg Findings: see MD note Complications: none Report called to H5 RN Please call the Main Endoscopy Dept at [phone] for questions.[facility]07-06-2024 NotePatient: Sheyla Ramirez Procedure Summary Date: 08/22/23 Room / Location: [facility] / [facility] Gastroenterology Anesthesia Start: 815 Anesthesia Stop: 831 Procedure: SIGMOIDOSCOPY FLEXIBLE WITH BALLOON DILATION OF STRICTURE Diagnosis: Generalized abdominal pain Providers: Val Chan MD Responsible Provider: Kirk Mckay MD Anesthesia Type: TIVA ASA Status: 3 Anesthesia Type: TIVA Vitals Value Taken Time BP 117/69 08/22/23 0831 Temp 97 08/22/23 0832 Pulse 82 08/22/23 0831 Resp 18 08/22/23 0831 SpO2 96 % 08/22/23 0831 Anesthesia Post Evaluation Patient location during evaluation: PACU Patient participation: complete - patient cannot participate Level of consciousness: sleepy but conscious and responsive to verbal stimuli Pain management: satisfactory to patient Airway patency: patent Dental Injury: no Cardiovascular status: acceptable, blood pressure returned to baseline and hemodynamically stable Respiratory status: acceptable, spontaneous ventilation, nonlabored ventilation and room air Hydration status: euvolemic Nausea/Vomiting: controlled No notable events documented. Patient can be discharged once all PACU criteria has been met.[facility] [id number] NotePatient: Sheyla Ramirez Procedure Summary Date: 08/22/23 Room / Location: [facility] 8 / [facility] Gastroenterology Anesthesia Start: 815 Anesthesia Stop: 831 Procedure: SIGMOIDOSCOPY FLEXIBLE WITH BALLOON DILATION OF STRICTURE Diagnosis: Generalized abdominal pain Providers: Val Chan MD Responsible Provider: Kirk Mckay MD Anesthesia Type: TIVA ASA Status: 3 Anesthesia Type: TIVA Vitals Value Taken Time BP 117/69 08/22/23 0831 Temp 97 08/22/23 0832 Pulse 82 08/22/23 0831 Resp 18 08/22/23 0831 SpO2 96 % 08/22/23 0831 Anesthesia Post Evaluation Patient location during evaluation: PACU Patient participation: complete - patient cannot participate Level of consciousness: sleepy but conscious and responsive to verbal stimuli Pain management: satisfactory to patient Multimodal analgesia pain management approach Airway patency: patent Two or more strategies used to mitigate risk of obstructive sleep apnea Cardiovascular status: acceptable and hemodynamically stable Respiratory status: acceptable, spontaneous ventilation, room air and nonlabored ventilation Hydration status: acceptable No notable events documented. MIPS #[phone] PONV Patient did not receive an inhalational anesthetic (XX430) MIPS # 424 Perioperative Temperature Management Anesthesia time was less than 60 minutes (4256F) MIPS #477 Multimodal Pain Management Not emergent case Patient was not administered multimodal pain management (G2149) Patient reports no pain in PACU (G2149) MIPS #404 Anesthesiology Smoking Abstinence The patient is not a current smoker (e.g. cigarette, cigar, pipe, e-cigarette/vaping/marijuana) If no stop here (XX404) I completed my handoff to the receiving clinician during which we: 1. Identified the patient 2. Identified the responsible provider 3. Reviewed the pertinent medical history 4. Discussed the surgical course 5. Reviewed intra-op anesthesia management and issues during anesthesia 6. Set expectations for post-procedure period 7. Allowed opportunity for questions and acknowledgement of understanding.[facility] [id number] NotePatient: Sheyla Ramirez Procedure Information Date/Time: 08/22/23 0800 Procedure: SIGMOIDOSCOPY FLEXIBLE WITH BALLOON DILATION OF STRICTURE [facility]: [facility] / [facility] Providers: Val Chan MD Relevant Problems Cardio (+) Disorder of carotid artery (CMS/HCC) (HCC) (+) Hyperlipidemia (+) Primary hypertension Endo (+) Type 2 diabetes mellitus (HCC) GI (+) Gastroesophageal reflux disease without esophagitis (+) Hiatal hernia /Renal (+) Injury of kidney Past Medical History: Past Medical History: No date: Diabetes mellitus, type 2 (HCC) No date: Gastro-esophageal reflux disease without esophagitis No date: Glaucoma No date: Hypercholesterolemia No date: Other constipation No date: Other intestinal obstruction unspecified as to partial versus complete obstruction (HCC) No date: Other specified symptoms and signs involving the digestive system and abdomen No date: Personal history of colonic polyps Past Surgical History: Past Surgical History: No date: COLONOSCOPY Comment: 2019 No date: EGD (HISTORICAL) Comment: 201908/04/2023: EGD (HISTORICAL) 2011: SIGMOID COLECTOMY (HISTORICAL) Comment: Laparoscopic sigmoid colectomy for diverticulitis Social History: TOBACCO: reports that she has never smoked. She has never used smokeless tobacco. ETOH: reports that she does not currently use alcohol. Social History Substance and Sexual Activity Drug Use Never Family History: No family history on file. Screening: Postmenopausal Clinical information reviewed: Tobacco Allergies Meds Med Hx Surg Hx OB Status Fam Hx Soc Hx Physical Exam Airway Mallampati: III TM distance: >3 FB Neck ROM: full Mouth Open: limited Cardiovascular Dental dentition normal Pulmonary Abdominal Anesthesia Plan patient is NPO appropriate Any family history or previous problems with anesthesia no ASA 3 TIVA Any family history or previous problems with anesthesia no The patient is not a current smoker. Anesthetic plan and risks discussed with patient. Anesthesia Linder Considerations Last ozempic 08/13 (8 days ago) +nausea - no vomiting since yesterday Bowel prep with enema AMELIA Screening Labs: Lab Results Component Value Date WBC 5.9 08/22/2023 HGB 11.8 08/22/2023 HCT 37.5 08/22/2023 MCV 88.2 08/22/2023 PLT 165 08/22/2023 Lab Results Component Value Date NA 137 08/22/2023 K 3.7 08/22/2023 CL 106 08/22/2023 CO2 22 08/22/2023 BUN 10 08/22/2023 CREATININE 0.63 08/22/2023 GLUCOSE 175 (H) 08/22/2023 CALCIUM 8.7 08/22/2023 PROT 7.7 08/21/2023 ALKPHOS 83 08/21/2023 AST 31 08/21/2023 ALT 26 08/21/2023 EGFR >90.0 08/22/2023 No echocardiogram results found for the past 14 days No results found for this or any previous visit. Equipment Requests: Additional [facility]* Op Note - Val Chan MD - 08/22/2023 7:13 AM EDT Endoscopy Center- [facility] Patient Name: Sheyla Ramirez Procedure Date: 08/22/2023 7:13 AM Gender: Female Date of : 1945 Age: 77 Admit Type: Inpatient Note Status: Finalized Endoscopist: Val Chan MD, [id number] Procedure: Flexible Sigmoidoscopy Indications: LLQ abd pain, constipation, concern for anastomotic stricture Findings: There was evidence of a prior end-to-end colo-rectal anastomosis in the rectum. This was patent and was characterized by healthy appearing mucosa. The anastomosis was traversed. No stricture present Impression: - Preparation of the colon was poor. - Patent end-to-end colo-rectal anastomosis, characterized by healthy appearing mucosa. - No specimens collected. Recommendation: - Continue present medications. - High fiber diet. - Consult GI - colorectal surgery will sign off Medicines: Propofol per Anesthesia Procedure: Pre-Anesthesia Assessment: - Prior to the procedure, a History and Physical was performed, and patient medications and allergies were reviewed. The patient's tolerance of previous anesthesia was also reviewed. The risks and benefits of the procedure and the sedation options and risks were discussed with the patient. All questions were answered, and informed consent was obtained. Prior Anticoagulants: The patient has taken no anticoagulant or antiplatelet agents. ASA Grade Assessment: II - A patient with mild systemic disease. After reviewing the risks and benefits, the patient was deemed in satisfactory condition to undergo the procedure. After obtaining informed consent, the endoscope was passed under direct vision. Throughout the procedure, the patient's blood pressure, pulse, and oxygen saturations were monitored continuously. The Colonoscope was introduced through the anus and advanced to the descending colon. The flexible sigmoidoscopy was accomplished without difficulty. The patient tolerated the procedure well. The quality of the bowel preparation was poor. Complications: No immediate complications. Procedure Code(s): --- Professional --- 69939, Sigmoidoscopy, flexible; diagnostic, including collection of specimen(s) by brushing or washing, when performed (separate procedure) --- Technical --- 72863, Sigmoidoscopy, flexible; diagnostic, including collection of specimen(s) by brushing or washing, when performed (separate procedure) CPT copyright 2021 [employer]. All rights reserved. The codes documented in this report are preliminary and upon assembler clip on sunglasses review may be revised to meet current compliance requirements. Attending Participation: I personally performed the entire procedure. Val Chan MD 08/22/2023 8:33:22 AM This report has been signed electronically. Number of Addenda: 0 Note Initiated On: 08/22/2023 7:13 AM [id number] Note* Op Note - Val Chan MD - 08/22/2023 7:13 AM [facility] Name: Sheyla Ramirez Procedure Date: 08/22/2023 7:13 AM Gender: Female Date of : 1945 Age: 77 Admit Type: Inpatient Note Status: Finalized Endoscopist: Val Chan MD, [id number] Procedure: Flexible Sigmoidoscopy Indications: LLQ abd pain, constipation, concern for anastomotic stricture Findings: There was evidence of a prior end-to-end colo-rectal anastomosis in the rectum. This was patent and was characterized by healthy appearing mucosa. The anastomosis was traversed. No stricture present Impression: - Preparation of the colon was poor. - Patent end-to-end colo-rectal anastomosis, characterized by healthy appearing mucosa. - No specimens collected. Recommendation: - Continue present medications. - High fiber diet. - Consult GI - colorectal surgery will sign off Medicines: Propofol per Anesthesia Procedure: Pre-Anesthesia Assessment: - Prior to the procedure, a History and Physical was performed, and patient medications and allergies were reviewed. The patient's tolerance of previous anesthesia was also reviewed. The risks and benefits of the procedure and the sedation options and risks were discussed with the patient. All questions were answered, and informed consent was obtained. Prior Anticoagulants: The patient has taken no anticoagulant or antiplatelet agents. ASA Grade Assessment: II - A patient with mild systemic disease. After reviewing the risks and benefits, the patient was deemed in satisfactory condition to undergo the procedure. After obtaining informed consent, the endoscope was passed under direct vision. Throughout the procedure, the patient's blood pressure, pulse, and oxygen saturations were monitored continuously. The Colonoscope was introduced through the anus and advanced to the descending colon. The flexible sigmoidoscopy was accomplished without difficulty. The patient tolerated the procedure well. The quality of the bowel preparation was poor. Complications: No immediate complications. Procedure Code(s): --- Professional --- 80297, Sigmoidoscopy, flexible; diagnostic, including collection of specimen(s) by brushing or washing, when performed (separate procedure) --- Technical --- 80733, Sigmoidoscopy, flexible; diagnostic, including collection of specimen(s) by brushing or washing, when performed (separate procedure) CPT copyright 2021 [employer]. All rights reserved. The codes documented in this report are preliminary and upon assembler clip on sunglasses review may be revised to meet current compliance requirements. Attending Participation: I personally performed the entire procedure. Val Chan MD 08/22/2023 8:33:22 AM This report has been signed electronically. Number of Addenda: 0 Note Initiated On: 08/22/2023 7:13 AM [id number] [facility] Patient Name: Sheyla Ramirez Procedure Date: 08/22/2023 7:13 AM Gender: Female Date of : 1945 Age: 77 Admit Type: Inpatient Note Status: Finalized Endoscopist: Val Chan MD, [id number] Procedure: Flexible Sigmoidoscopy Indications: LLQ abd pain, constipation, concern for anastomotic stricture Findings: There was evidence of a prior end-to-end colo-rectal anastomosis in the rectum. This was patent and was characterized by healthy appearing mucosa. The anastomosis was traversed. No stricture present Impression: - Preparation of the colon was poor. - Patent end-to-end colo-rectal anastomosis, characterized by healthy appearing mucosa. - No specimens collected. Recommendation: - Continue present medications. - High fiber diet. - Consult GI - colorectal surgery will sign off Medicines: Propofol per Anesthesia Procedure: Pre-Anesthesia Assessment: - Prior to the procedure, a History and Physical was performed, and patient medications and allergies were reviewed. The patient's tolerance of previous anesthesia was also reviewed. The risks and benefits of the procedure and the sedation options and risks were discussed with the patient. All questions were answered, and informed consent was obtained. Prior Anticoagulants: The patient has taken no anticoagulant or antiplatelet agents. ASA Grade Assessment: II - A patient with mild systemic disease. After reviewing the risks and benefits, the patient was deemed in satisfactory condition to undergo the procedure. After obtaining informed consent, the endoscope was passed under direct vision. Throughout the procedure, the patient's blood pressure, pulse, and oxygen saturations were monitored continuously. The Colonoscope was introduced through the anus and advanced to the descending colon. The flexible sigmoidoscopy was accomplished without difficulty. The patient tolerated the procedure well. The quality of the bowel preparation was poor. Complications: No immediate complications. Procedure Code(s): --- Professional --- 21899, Sigmoidoscopy, flexible; diagnostic, including collection of specimen(s) by brushing or washing, when performed (separate procedure) --- Technical --- 95627, Sigmoidoscopy, flexible; diagnostic, including collection of specimen(s) by brushing or washing, when performed (separate procedure) CPT copyright 2021 [employer]. All rights reserved. The codes documented in this report are preliminary and upon assembler clip on sunglasses review may be revised to meet current compliance requirements. Attending Participation: I personally performed the entire procedure. Val Chan MD 08/22/2023 8:33:22 AM This report has been signed electronically. Number of Addenda: 0 Note Initiated On: 08/22/2023 7:13 [facility]07-06-2024 Plan of care note* Care Plan - Loly Andres RN - 08/22/2023 1:15 AM EDT The patient is Moderately Stable - Low risk of patient condition declining or worsening The patient's goals for the shift include comfort/nausea control The clinical goals for the shift include comfort Problem: Pain - Adult Goal: Verbalizes/displays adequate comfort level or baseline comfort level Outcome: Progressing Problem: Safety - Adult Goal: Free from fall injury Outcome: Progressing Problem: Discharge Planning Goal: Discharge to home or other facility with appropriate resources Outcome: Progressing Problem: Chronic Conditions and Co-morbidities Goal: Patient's chronic conditions and co-morbidity symptoms are monitored and maintained or improved Outcome: Progressing T [facility] [id number] History and physical note* Arsalan Swenson MD - 08/21/2023 9:48 PM EDT Attending History and Physical Admit Date: 08/21/2023 PCP: LENA THORNE CHIEF COMPLAINT: Chief Complaint Patient presents with Abdominal Pain Patient was seen in ER yesterday where she was told she should stay for possible bowel obstruction,she decided to leave because she felt better but is now back with Abdominal pain HISTORY OF PRESENT ILLNESS: Sheyla is a 77 y.o. female with past medical history below who presented to ED with c/o abdominal pain. Patient was just in the ED yesterday with the same concern. She states that she was concerned she had a bowel obstruction. Workup in the ED at that time included CT scan and labs which showed no significant abnormality. Patient was having enough discomfort however and has had previous bowel obstruction secondary to partial sigmoid colectomy that general surgery was consulted. They evaluated the patient in the emergency department and recommended observation admission for serial abdominal exams and further recommendations pending reevaluation in the a.m. At the time patient elected to be discharged home as she was feeling somewhat improved after symptomatic therapy in the ED. She states that today however the pain has returned and is slightly worse than yesterday. Due to this she decided to come to the emergency department for reevaluation. Her primary concern is that she vomited today approximately 40 minutes after attempting to eat breakfast patient states that she had not been having any vomiting when she came to the ED yesterday. Will admit for further evaluation and management. Past Medical History: Past Medical History: Diagnosis Date Diabetes mellitus, type 2 (HCC) Gastro-esophageal reflux disease without esophagitis Glaucoma Hypercholesterolemia Other constipation Other intestinal obstruction unspecified as to partial versus complete obstruction (HCC) Other specified symptoms and signs involving the digestive system and abdomen Personal history of colonic polyps Past Surgical History: Past Surgical History: Procedure Laterality Date COLONOSCOPY 2019 EGD (HISTORICAL) 2019 EGD (HISTORICAL) 08/04/2023 SIGMOID COLECTOMY (HISTORICAL) 2010 Laparoscopic sigmoid colectomy for diverticulitis Social History: Social History Socioeconomic History Marital status: Spouse name: Not on file Number of children: Not on file Years of education: Not on file Highest education level: Not on file Occupational History Not on file Tobacco Use Smoking status: Never Smokeless tobacco: Never Substance and Sexual Activity Alcohol use: Not Currently Comment: SOCIALLY Drug use: Never Sexual activity: Not on file Other Topics Concern Not on file Social History Narrative Not on file Social Determinants of Health Financial Resource Strain: Not on file Food Insecurity: Not on file Transportation Needs: Not on file Physical Activity: Not on file Stress: Not on file Social Connections: Not on file Intimate Partner Violence: Not At Risk (08/21/2023) Humiliation, Afraid, Rape, and Kick questionnaire Fear of Current or Ex-Partner: No Emotionally Abused: No Physically Abused: No Sexually Abused: No Housing Stability: Not on file Family History: No family history on file. Medications Prior to Admission: No current facility-administered medications on file prior to encounter. Current Outpatient Medications on File Prior to Encounter Medication Sig Dispense Refill atorvastatin (Lipitor) 10 MG tablet Take 10 mg by mouth daily. brimonidine (AlphaGAN) 0.2 % ophthalmic solution 1 drop 2 times daily. glimepiride (Amaryl) 4 MG tablet Take 4 mg by mouth every morning (before breakfast). losartan (Cozaar) 25 MG tablet Take by mouth. polyethylene glycol, PEG, 3350 (Miralax) 17 g packet Take 17 g by mouth daily for 3 days. 3 packet 0 Semaglutide (OZEMPIC, 1 MG/DOSE, SC) Inject 1 mg under the skin 1 (one) time per week. docusate sodium (Colace) 100 MG capsule Take 1 capsule (100 mg) by mouth in the morning and 1 capsule (100 mg) in the evening. 60 capsule 0 lansoprazole (Prevacid) [address] capsule Take by mouth every morning (before breakfast). Do not crush or chew. ondansetron (Zofran) 4 MG tablet Take 1 tablet (4 mg) by mouth in the morning and 1 tablet (4 mg) at noon and 1 tablet (4 mg) in the evening and 1 tablet (4 mg) before bedtime. Do all this for 3 days. 12 tablet 0 polyethylene glycol, PEG, 3350 (Miralax) 17 g packet Take by mouth. Allergies: Allergies Allergen Reactions Grass Pollen(K-O-R-T-Swt Todd) Unknown Molds & Smuts Unknown Lisinopril Cough Neomycin Hives Penicillins Hives Seasonal Runny nose Sulfa Antibiotics REVIEW OF SYSTEMS: As per HPI Vitals: BP 148/66 (BP Location: Left arm, Patient Position: Lying) Pulse 73 Temp 36.6 C (97.9 F) (Temporal) Resp 18 Ht 5' 7 (1.702 m) Wt 150 lb (68 kg) SpO2 98% BMI 23.49 kg/m BMI Classification: Pulse Ox: SpO2 Av.3 % Min: 98 % Max: 100 % Supplemental O2: PHYSICAL EXAM: Physical Exam HEENT: PERRLA, EOMI Neck: supple, no JVD Chest: BLAE, clear CVS: S1+, S2+, no m/r/g Abdomen: soft, diffuse tenderness, BS+ [employer]CRA[employer] 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 CARDIAC ENZYMES: No results for input(s): TROPONINI in the last 72 hours. Procalcitonin: No results found for: PROCAL Urine Culture: No results found for this or any previous visit. COVID-19 PCR: No results for input(s): COVID19 in the last 72 hours. I reviewed: [x] laboratory results [x] radiographic results At the time of today's encounter. Pt was advised of the results. Data: (LOW: 2x CAT1 or independent historian MOD: 3x CAT1 or 1x CAT3 EXTENSIVE: 3x CAT1 and 1x CAT3) Assessment Discussed management with the ED provider and agree with hospitalization. Acute, acute on chronic, unstable/uncontrolled chronic problems/diagnoses: # Abdominal pain - CT abd noted - Gen surgery consulted, appreciate recs - pain control - IV fluids Stable chronic problems affecting care, new non-acute diagnoses: # DM 2 # HTN # DYslipidemia Plan As a result of the above findings & factors, the following mgmt was pursued: - home meds as ordered - am labs, replace lytes prn - PT/OT/CM/SW - delirium precautions: increase activity - DVT prophylaxis: enoxaparin and encourage ambulation Advance Directive: Full Code Anticipated Discharge - Date - tbd - Location - Home - Pending the following - clinical course Total time spent (which include face to face and non face to face encounters) : 56 minutes. Extended Emergency Contact Information Primary Emergency Contact: julian ramirez Mobile Relation: Brother Secondary Emergency Contact: ania Santo Mobile Relation: Sister [employer] Sheyla Ramirez : 1945 Primary Care Physician: LENA THORNE The patient and/or family/surrogate voluntarily agreed to participate in ACP services. Patient s cognitive capacity: yes Code Status: [x] [FULL CODE - Continue all advanced life support: CPR,intubation,invasive procedures] [_] [DNR-CCA - DO NOT do CPR, intubation] [_] [DNR-LIST OF FIRST JOB IDEAS - Comfort care only] [_] DNR form [was/was not] signed Summary of discussion: The patient health care POA/ surrogate is the following: none. [Condition that instigated the ACP on this DOS, relevant PMH, functional status, goals of care, andwhom this was discussed with including names and relationship to the patient, and any relevant advance care documentation discussion] I answered all the patient/family questions that I could within the range and scope of the current medical situation. We discussed the medical conditions, risks, benefits, outcomes, and goals of careat this time for the patient's medical issues at hand in the face of the patient's chronic issues and current presentation. Total time spent: 2 minutes were spent discussing the patient's resuscitation status, advance care planning, and end of life care, with patient and/or family/surrogate. Arsalan Swenson MD Division of Hospitalist Medicine [facility] [employer] Phone: [phone] NoteAttending History and Physical Admit Date: 08/21/2023 PCP: LENA THORNE CHIEF COMPLAINT: Chief Complaint Patient presents with Abdominal Pain Patient was seen in ER yesterday where she was told she should stay for possible bowel obstruction, she decided to leave because she felt better but is now back with Abdominal pain HISTORY OF PRESENT ILLNESS: Sheyla is a 77 y.o. female with past medical history below who presented to ED with c/o abdominal pain. Patient was just in the ED yesterday with the same concern. She states that she was concerned she had a bowel obstruction. Workup in the ED at that time included CT scan and labs which showed no significant abnormality. Patient was having enough discomfort however and has had previous bowel obstruction secondary to partial sigmoid colectomy that general surgery was consulted. They evaluated the patient in the emergency department and recommended observation admission for serial abdominal exams and further recommendations pending reevaluation in the a.m. At the time patient elected to be discharged home as she was feeling somewhat improved after symptomatic therapy in the ED. She states that today however the pain has returned and is slightly worse than yesterday. Due to this she decided to come to the emergency department for reevaluation. Her primary concern is that she vomited today approximately 40 minutes after attempting to eat breakfast patient states that she had not been having any vomiting when she came to the ED yesterday. Will admit for further evaluation and management. Past Medical History: Past Medical History: Diagnosis Date Diabetes mellitus, type 2 (HCC) Gastro-esophageal reflux disease without esophagitis Glaucoma Hypercholesterolemia Other constipation Other intestinal obstruction unspecified as to partial versus complete obstruction (HCC) Other specified symptoms and signs involving the digestive system and abdomen Personal history of colonic polyps Past Surgical History: Past Surgical History: Procedure Laterality Date COLONOSCOPY 2019 EGD (HISTORICAL) 2019 EGD (HISTORICAL) 08/04/2023 SIGMOID COLECTOMY (HISTORICAL) 2010 Laparoscopic sigmoid colectomy for diverticulitis Social History: Social History Socioeconomic History Marital status: Spouse name: Not on file Number of children: Not on file Years of education: Not on file Highest education level: Not on file Occupational History Not on file Tobacco Use Smoking status: Never Smokeless tobacco: Never Substance and Sexual Activity Alcohol use: Not Currently Comment: SOCIALLY Drug use: Never Sexual activity: Not on file Other Topics Concern Not on file Social History Narrative Not on file Social Determinants of Health Financial Resource Strain: Not on file Food Insecurity: Not on file Transportation Needs: Not on file Physical Activity: Not on file Stress: Not on file Social Connections: Not on file Intimate Partner Violence: Not At Risk (08/21/2023) Humiliation, Afraid, Rape, and Kick questionnaire Fear of Current or Ex-Partner: No Emotionally Abused: No Physically Abused: No Sexually Abused: No Housing Stability: Not on file Family History: No family history on file. Medications Prior to Admission: No current facility-administered medications on file prior to encounter. Current Outpatient Medications on File Prior to Encounter Medication Sig Dispense Refill atorvastatin (Lipitor) 10 MG tablet Take 10 mg by mouth daily. brimonidine (AlphaGAN) 0.2 % ophthalmic solution 1 drop 2 times daily. glimepiride (Amaryl) 4 MG tablet Take 4 mg by mouth every morning (before breakfast). losartan (Cozaar) 25 MG tablet Take by mouth. polyethylene glycol, PEG, 3350 (Miralax) 17 g packet Take 17 g by mouth daily for 3 days. 3 packet 0 Semaglutide (OZEMPIC, 1 MG/DOSE, SC) Inject 1 mg under the skin 1 (one) time per week. docusate sodium (Colace) 100 MG capsule Take 1 capsule (100 mg) by mouth in the morning and 1 capsule (100 mg) in the evening. 60 capsule 0 lansoprazole (Prevacid) [address] capsule Take by mouth every morning (before breakfast). Do not crush or chew. ondansetron (Zofran) 4 MG tablet Take 1 tablet (4 mg) by mouth in the morning and 1 tablet (4 mg) at noon and 1 tablet (4 mg) in the evening and 1 tablet (4 mg) before bedtime. Do all this for 3 days. 12 tablet 0 polyethylene glycol, PEG, 3350 (Miralax) 17 g packet Take by mouth. Allergies: Allergies Allergen Reactions Grass Pollen(K-O-R-T-Swt Todd) Unknown Molds & Smuts Unknown Lisinopril Cough Neomycin Hives Penicillins Hives Seasonal Runny nose Sulfa Antibiotics REVIEW OF SYSTEMS: As per HPI Vitals: BP 148/66 (BP Location: Left arm, Patient Position: Lying) Pulse 73 Temp 36.6 ?C (97.9 ?F) (Temporal) Resp 18 Ht 5' 7 (1.702 m) Wt 150 lb (68 kg) SpO2 98% BMI 23.49 kg/m? BMI Classific (more content not included)...[facility]07-05-2024 History and physical note* Arsalan Swenson MD - 08/21/2023 9:48 PM EDT Attending History and Physical Admit Date: 08/21/2023 PCP: LENA THORNE CHIEF COMPLAINT: Chief Complaint Patient presents with Abdominal Pain Patient was seen in ER yesterday where she was told she should stay for possible bowel obstruction,she decided to leave because she felt better but is now back with Abdominal pain HISTORY OF PRESENT ILLNESS: Sheyla is a 77 y.o. female with past medical history below who presented to ED with c/o abdominal pain. Patient was just in the ED yesterday with the same concern. She states that she was concerned she had a bowel obstruction. Workup in the ED at that time included CT scan and labs which showed no significant abnormality. Patient was having enough discomfort however and has had previous bowel obstruction secondary to partial sigmoid colectomy that general surgery was consulted. They evaluated the patient in the emergency department and recommended observation admission for serial abdominal exams and further recommendations pending reevaluation in the a.m. At the time patient elected to be discharged home as she was feeling somewhat improved after symptomatic therapy in the ED. She states that today however the pain has returned and is slightly worse than yesterday. Due to this she decided to come to the emergency department for reevaluation. Her primary concern is that she vomited today approximately 40 minutes after attempting to eat breakfast patient states that she had not been having any vomiting when she came to the ED yesterday. Will admit for further evaluation and management. Past Medical History: Past Medical History: Diagnosis Date Diabetes mellitus, type 2 (HCC) Gastro-esophageal reflux disease without esophagitis Glaucoma Hypercholesterolemia Other constipation Other intestinal obstruction unspecified as to partial versus complete obstruction (HCC) Other specified symptoms and signs involving the digestive system and abdomen Personal history of colonic polyps Past Surgical History: Past Surgical History: Procedure Laterality Date COLONOSCOPY 2019 EGD (HISTORICAL) 2019 EGD (HISTORICAL) 08/04/2023 SIGMOID COLECTOMY (HISTORICAL) 2010 Laparoscopic sigmoid colectomy for diverticulitis Social History: Social History Socioeconomic History Marital status: Spouse name: Not on file Number of children: Not on file Years of education: Not on file Highest education level: Not on file Occupational History Not on file Tobacco Use Smoking status: Never Smokeless tobacco: Never Substance and Sexual Activity Alcohol use: Not Currently Comment: SOCIALLY Drug use: Never Sexual activity: Not on file Other Topics Concern Not on file Social History Narrative Not on file Social Determinants of Health Financial Resource Strain: Not on file Food Insecurity: Not on file Transportation Needs: Not on file Physical Activity: Not on file Stress: Not on file Social Connections: Not on file Intimate Partner Violence: Not At Risk (08/21/2023) Humiliation, Afraid, Rape, and Kick questionnaire Fear of Current or Ex-Partner: No Emotionally Abused: No Physically Abused: No Sexually Abused: No Housing Stability: Not on file Family History: No family history on file. Medications Prior to Admission: No current facility-administered medications on file prior to encounter. Current Outpatient Medications on File Prior to Encounter Medication Sig Dispense Refill atorvastatin (Lipitor) 10 MG tablet Take 10 mg by mouth daily. brimonidine (AlphaGAN) 0.2 % ophthalmic solution 1 drop 2 times daily. glimepiride (Amaryl) 4 MG tablet Take 4 mg by mouth every morning (before breakfast). losartan (Cozaar) 25 MG tablet Take by mouth. polyethylene glycol, PEG, 3350 (Miralax) 17 g packet Take 17 g by mouth daily for 3 days. 3 packet 0 Semaglutide (OZEMPIC, 1 MG/DOSE, SC) Inject 1 mg under the skin 1 (one) time per week. docusate sodium (Colace) 100 MG capsule Take 1 capsule (100 mg) by mouth in the morning and 1 capsule (100 mg) in the evening. 60 capsule 0 lansoprazole (Prevacid) [address] capsule Take by mouth every morning (before breakfast). Do not crush or chew. ondansetron (Zofran) 4 MG tablet Take 1 tablet (4 mg) by mouth in the morning and 1 tablet (4 mg) at noon and 1 tablet (4 mg) in the evening and 1 tablet (4 mg) before bedtime. Do all this for 3 days. 12 tablet 0 polyethylene glycol, PEG, 3350 (Miralax) 17 g packet Take by mouth. Allergies: Allergies Allergen Reactions Grass Pollen(K-O-R-T-Swt Todd) Unknown Molds & Smuts Unknown Lisinopril Cough Neomycin Hives Penicillins Hives Seasonal Runny nose Sulfa Antibiotics REVIEW OF SYSTEMS: As per HPI Vitals: BP 148/66 (BP Location: Left arm, Patient Position: Lying) Pulse 73 Temp 36.6 C (97.9 F) (Temporal) Resp 18 Ht 5' 7 (1.702 m) Wt 150 lb (68 kg) SpO2 98% BMI 23.49 kg/m BMI Classification: Pulse Ox: SpO2 Av.3 % Min: 98 % Max: 100 % Supplemental O2: PHYSICAL EXAM: Physical Exam HEENT: PERRLA, EOMI Neck: supple, no JVD Chest: BLAE, clear CVS: S1+, S2+, no m/r/g Abdomen: soft, diffuse tenderness, BS+ 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 CARDIAC ENZYMES: No results for input(s): TROPONINI in the last 72 hours. Procalcitonin: No results found for: PROCAL Urine Culture: No results found for this or any previous visit. COVID-19 PCR: No results for input(s): COVID19 in the last 72 hours. I reviewed: [x] laboratory results [x] radiographic results At the time of today's encounter. Pt was advised of the results. Data: (LOW: 2x CAT1 or independent historian MOD: 3x CAT1 or 1x CAT3 EXTENSIVE: 3x CAT1 and 1x CAT3) Assessment Discussed management with the ED provider and agree with hospitalization. Acute, acute on chronic, unstable/uncontrolled chronic problems/diagnoses: # Abdominal pain - CT abd noted - Gen surgery consulted, appreciate recs - pain control - IV fluids Stable chronic problems affecting care, new non-acute diagnoses: # DM 2 # HTN # DYslipidemia Plan As a result of the above findings & factors, the following mgmt was pursued: - home meds as ordered - am labs, replace lytes prn - PT/OT/CM/SW - delirium precautions: increase activity - DVT prophylaxis: enoxaparin and encourage ambulation Advance Directive: Full Code Anticipated Discharge - Date - tbd - Location - Home - Pending the following - clinical course Total time spent (which include face to face and non face to face encounters) : 56 minutes. Extended Emergency Contact Information Primary Emergency Contact: julian ramirez Mobile Relation: Brother Secondary Emergency Contact: ania Santo Mobile Relation: Sister [employer] Sheyla Ramirez : 1945 Primary Care Physician: LENA THORNE The patient and/or family/surrogate voluntarily agreed to participate in ACP services. Patient s cognitive capacity: yes Code Status: [x] [FULL CODE - Continue all advanced life support: CPR,intubation,invasive procedures] [_] [DNR-CCA - DO NOT do CPR, intubation] [_] [DNR-LIST OF FIRST JOB IDEAS - Comfort care only] [_] DNR form [was/was not] signed Summary of discussion: The patient health care POA/ surrogate is the following: none. [Condition that instigated the ACP on this DOS, relevant PMH, functional status, goals of care, andwhom this was discussed with including names and relationship to the patient, and any relevant advance care documentation discussion] I answered all the patient/family questions that I could within the range and scope of the current medical situation. We discussed the medical conditions, risks, benefits, outcomes, and goals of careat this time for the patient's medical issues at hand in the face of the patient's chronic issues and current presentation. Total time spent: 2 minutes were spent discussing the patient's resuscitation status, advance care planning, and end of life care, with patient and/or family/surrogate. Arsalan Swenson MD Division of Hospitalist Medicine [facility] documented in this [facility]07-05-2024 Consult note* Lai Cee DO - 08/21/2023 4:10 PM EDT Images from the original note were not included. Department of Surgery Surgical Service: Surg 4 (Advanced Laparoscopic Surgery) Resident Consult Note 08/22/2023 Chief Complaint: Chief Complaint Patient presents with Abdominal Pain Patient was seen in ER yesterday where she was told she should stay for possible bowel obstruction,she decided to leave because she felt better but is now back with Abdominal pain Reason for Consult: Left lower quadrant abdominal pain History of Present Illness: Sheyla Ramirez is a 77 y.o. female with PMHx significant for diabetes, GERD, hypercholesteremia, constipation, bowel obstructions, GERD, and PSHx of lap sigmoid secondary to diverticulitis, (additional history below) who presents to [facility] ED with a chief complaint of concerns for bowel obstruction. . Surgery was consulted for the evaluation and management of LLQ pain/concern for obstruction. Patient was seen in the ER yesterday after she had 24 hours of obstipation, with no bowel movement or flatus. Her CT imaging at that time showed mild bowel thickening and kinking in the left hemiabdomen. She elected to go home and monitor her symptoms. She returns to the ER now with 48 hours of obstipation. She has not passed any flatus or bowel movement. She had emesis of breakfast only but no persistent bilious emesis. She denies significant abdominal pain. On workup she is afebrile, hemodynamically stable, CBC, BMP, LFTs within normal limits. Interval CTabdomen IV and p.o. contrast shows no significant gastric or small bowel dilation, the right and transverse colon filled with contrast, there is no left colonic dilation but there is also no contrastpast the anastomosis. Patient is surgical history of laparoscopic sigmoidectomy single-stage with Dr. Kruse 2010. She has had colonoscopic balloon dilation since that time for stricture. She is not on any blood thinners or steroids. No family history of IBD or Crohn's. Past Medical History: Diagnosis Date Diabetes mellitus, type 2 (HCC) Gastro-esophageal reflux disease without esophagitis Glaucoma Hypercholesterolemia Other constipation Other intestinal obstruction unspecified as to partial versus complete obstruction (HCC) Other specified symptoms and signs involving the digestive system and abdomen Personal history of colonic polyps Past Surgical History: Procedure Laterality Date COLONOSCOPY 2019 EGD (HISTORICAL) 2019 EGD (HISTORICAL) 08/04/2023 FLEXIBLE SIGMOIDOSCOPY N/A 08/22/2023 Performed by Val Chan MD at [facility] ENDOSCOPY SIGMOID COLECTOMY (HISTORICAL) 2010 Laparoscopic sigmoid colectomy for diverticulitis Medications Prior to Admission: No current facility-administered medications on file prior to encounter. Current Outpatient Medications on File Prior to Encounter Medication Sig Dispense Refill atorvastatin (Lipitor) 10 MG tablet Take 10 mg by mouth daily. brimonidine (AlphaGAN) 0.2 % ophthalmic solution 1 drop 2 times daily. glimepiride (Amaryl) 4 MG tablet Take 4 mg by mouth every morning (before breakfast). losartan (Cozaar) 25 MG tablet Take by mouth. polyethylene glycol, PEG, 3350 (Miralax) 17 g packet Take 17 g by mouth daily for 3 days. 3 packet 0 Semaglutide (OZEMPIC, 1 MG/DOSE, SC) Inject 1 mg under the skin 1 (one) time per week. docusate sodium (Colace) 100 MG capsule Take 1 capsule (100 mg) by mouth in the morning and 1 capsule (100 mg) in the evening. 60 capsule 0 lansoprazole (Prevacid) [address] capsule Take by mouth every morning (before breakfast). Do not crush or chew. ondansetron (Zofran) 4 MG tablet Take 1 tablet (4 mg) by mouth in the morning and 1 tablet (4 mg) at noon and 1 tablet (4 mg) in the evening and 1 tablet (4 mg) before bedtime. Do all this for 3 days. 12 tablet 0 polyethylene glycol, PEG, 3350 (Miralax) 17 g packet Take by mouth. Allergies: Grass pollen(k-o-r-t-swt todd), Molds & smuts, Lisinopril, Neomycin, Penicillins, Seasonal, andSulfa antibiotics Social History Socioeconomic History Marital status: Tobacco Use Smoking status: Never Smokeless tobacco: Never Substance and Sexual Activity Alcohol use: Not Currently Comment: SOCIALLY Drug use: Never Social Determinants of Health Intimate Partner Violence: Not At Risk (08/21/2023) Humiliation, Afraid, Rape, and Kick questionnaire Fear of Current or Ex-Partner: No Emotionally Abused: No Physically Abused: No Sexually Abused: No No family history on file. Review of Systems: Review of Systems Constitutional: Negative for appetite change, chills, diaphoresis, fever and unexpected weight change. HENT: Negative for nosebleeds and postnasal drip. Eyes: Negative for pain and itching. Respiratory: Negative for apnea and shortness of breath. Cardiovascular: Negative for chest pain and palpitations. Gastrointestinal: Positive for abdominal pain, constipation and nausea. Negative for abdominal distention, anal bleeding, blood in stool, diarrhea, rectal pain and vomiting. Genitourinary: Negative for difficulty urinating and dysuria. Skin: Negative for color change and rash. Neurological: Negative for seizures and numbness. All other systems reviewed and are negative. Physical Exam: Vitals: 08/22/23 0955 BP: 129/65 Pulse: 68 Resp: 18 Temp: 36.3 C (97.4 F) SpO2: 97% No intake/output data recorded. Physical Exam Vitals and nursing note reviewed. Constitutional: General: She is not in acute distress. Appearance: She is not ill-appearing, toxic-appearing or diaphoretic. HENT: Head: Normocephalic and atraumatic. Right Ear: External ear normal. Left Ear: External ear normal. Nose: Nose normal. No rhinorrhea. Mouth/Throat: Mouth: Mucous membranes are moist. Pharynx: No posterior oropharyngeal erythema. Eyes: General: Right eye: No discharge. Left eye: No discharge. Conjunctiva/sclera: Conjunctivae normal. Cardiovascular: Rate and Rhythm: Normal rate. Pulmonary: Effort: Pulmonary effort is normal. No respiratory distress. Breath sounds: No stridor. Abdominal: General: A surgical scar is present. There is no distension. Palpations: Abdomen is soft. Tenderness: There is abdominal tenderness (Minimal) in the left lower quadrant. There is no guarding or rebound. Skin: General: Skin is warm. Capillary Refill: Capillary refill takes less than 2 seconds. Neurological: General: No focal deficit present. Mental Status: She is alert and oriented to person, place, and time. Mental status is at baseline. Psychiatric: Mood and Affect: Mood normal. Thought Content: Thought content normal. Laboratory Data: CBC: Lab Results Component Value Date WBC 5.9 08/22/2023 RBC 4.25 08/22/2023 HGB 11.8 08/22/2023 HCT 37.5 08/22/2023 MCV 88.2 08/22/2023 MCH 27.8 08/22/2023 MCHC 31.5 08/22/2023 RDW 13.1 08/22/2023 PLT 165 08/22/2023 MPV 10.6 08/22/2023 BMP: Lab Results Component Value Date NA 137 08/22/2023 K 3.7 08/22/2023 CL 106 08/22/2023 CO2 22 08/22/2023 BUN 10 08/22/2023 CREATININE 0.63 08/22/2023 CALCIUM 8.7 08/22/2023 GLUCOSE 175 (H) 08/22/2023 Hepatic Function Panel: Lab Results Component Value Date ALKPHOS 83 08/21/2023 ALT 26 08/21/2023 AST 31 08/21/2023 PROT 7.7 08/21/2023 BILITOT 0.8 08/21/2023 BILIDIR 0.0 08/21/2023 PT/INR: No results found for: PROTIME, INR Troponin: No results found for: TROPONINI Lipase: Lab Results Component Value Date LIPASE 97 08/21/2023 Imaging: CT abdomen pelvis w contrast Result Date: 08/20/2023 Patient Name: SHEYLA RAMIREZ : 1945 Exam Date/Time: 08/20/2023 08:37 Procedure: CT ABDOMEN PELVIS W CONTRAST Ordering Provider: CALHOUN KAITLYN Reason For Exam: concern for SBO, Nausea CT ABDOMEN AND PELVIS WITH CONTRAST CLINICAL INDICATION: Abdominal pain. TECHNIQUE: Multi-axial 3mm sections through the abdomen and pelvis following 75 mL of Isoview contrast media. No oral contrast was administered. Coronal and sagittal reconstructions were reviewed. Dose reduction was employed with automated exposure control. COMPARISON: None. FINDINGS: Lower thorax: Normal. Stomach: Unremarkable. Liver: Normal size and contours. Normal hepaticparenchyma. 2.7 x 3.2 cm subcapsular low-density hepatic lesion within segment VII, probably a cyst. No additional hepatic lesion identified. Biliary tree: Unremarkable gallbladder by CT. No biliary dilatation. Spleen: Normal. Adrenals: Normal. Pancreas: Normal. Kidneys: Symmetric contrast enhancement without evidence of hydronephrosis. No focal renal lesion is identified. Free air or fluid: None. Mesenteric/retroperitoneal: No adenopathy or inflammation. Aorta: Normal caliber of aorta and bilateral common iliac arteries. Bowel: Post appendectomy.. Bowel anastomoses. No inflammatory change orbowel dilatation is noted. Urinary bladder: Unremarkable. Abdominal wall/soft tissues: No ventral he rnia is evident. Pelvic organs/viscera: The uterus is present. Inguinal: No lymphadenopathy. Osseous structures: Multilevel spondylosis, including levoscoliosis. No suspicious osseous lesion. 1. No evidence of acute infectious or inflammatory process in the abdomen or pelvis. 2. 2.7 x 3.2 cm subcapsular low-density hepatic lesion within segment VII, probably a cyst. Report Dictated on Electronically Signed By: Artis Stevens MD Electronically Signed Date/Time: 08/20/2023 9:00 AM EDT ASSESSMENT AND PLAN: Sheyla Ramirez is a 77 y.o. female with LLQ tenderness, constipation, and PSHx of lap sigmoid 2/2 diverticulitis presenting with concern for intermittent SBO, with recent imaging inconclusive. CT with PO and IV contrast with 3 hour PO contrast elapse to evaluate for bowel obstruction Recommend medical admission Clear liquid diet overnight, n.p.o. midnight consult colorectal surgery, Dr. Chan, he plans to perform diagnostic flex sig tomorrow morning -Morning enema prior to flex sig Discussed with Dr. Jaye Bergman MD PGY5, General Surgery Pager #[phone] STATION The patient was seen and examined. I have reviewed the patients presentation, histories, imaging and serology studies. I agree with the above assessment and plan. Patient seen post sigmoidoscopy. Appropriately lethargic and resting in bed. CT scan of the abdomenand pelvis was personally reviewed and interpreted. There appears to be p.o. contrast throughout the small intestine and colon with a paucity of contrast noted at the descending colon and anastomosis. Based on the CT scan, there was no evidence of obstruction. Patient has a previous history of colonic stricture at previous anastomosis requiring dilation. Based on this history, colorectal surgery was consulted for flexible endoscopy and possible anastomotic dilation. This was performed this morning and there was no evidence of stricturing at the anastomosis. At this point, I recommend monitoring the patient for symptoms post procedure and advancing diet as tolerated. Recommend observation overnight. Case was discussed with the patient's friend who is at bedside. All the patient's questionswere answered. No acute surgical intervention at this time. We will continue to follow. I personally performed the evaluation and management of Sheyla Ramirez in the development of a treatment plan for this patient. I personally interviewed the patient and performed an individual physical examination. In addition, I discussed the patient's condition and treatment options with them. I have also reviewed and agree with the past medical, family and social history unless otherwise noted. All of the patient's questions were answered. I personally spent 75 minutes of time between the face to face encounter, physical exam, reviewing the medical history, coordinating the patient's care, cou nseling/educating the patient, ordering prescriptions/medications/tests/procedures, interpreting results and documenting clinical information in the patient's electronic health record on the day of the encounter. Patient Care Team: Lena Thorne as PCP - (Internal Medicine) Chandana Batista (Gastroenterology) [id number] Emergency department Note* Jayjay Fortune MD - 08/21/2023 11:53 AM EDT Emergency Department Encounter [facility] EMERGENCY DEPT Patient: Sheyla Ramirez : 1945 Date of Evaluation: 08/21/2023 ED Provider: Jayjay Fortune MD I saw the patient as the Clinician in Triage and performed a brief history and physical exam, established acuity, and ordered appropriate tests to develop basic plan of care. Patient will be seen by [facility], resident and/or my physician partner who will evaluate the patient. I wore appropriate PPE for the entirety of this encounter. Brief HPI: In brief, Sheyla Ramirez is a 77 y.o. that presents with chief complaint of abdominal pain.Patient was just in the ED yesterday with the same concern. She states that she was concerned she had a bowel obstruction. Workup in the ED at that time included CT scan and labs which showed no significant abnormality. Patient was having enough discomfort however and has had previous bowel obstruct ion secondary to partial sigmoid colectomy that general surgery was consulted. They evaluated the patient in the emergency department and recommended observation admission for serial abdominal exams and further recommendations pending reevaluation in the a.m. At the time patient elected to be discharged home as she was feeling somewhat improved after symptomatic therapy in the ED. She states thattoday however the pain has returned and is slightly worse than yesterday. Due to this she decided to come to the emergency department for reevaluation. Her primary concern is that she vomited today approximately 40 minutes after attempting to eat breakfast patient states that she had not been having any vomiting when she came to the ED yesterday. Focused Physical exam: Awake, alert, appears tired but is oriented x 4. Skin is warm, dry, intact. Normal heart rate and heart sounds. Normal respiratory rate and effort. Abdomen is diffusely tender but is without rebound, guarding, or palpable abnormalities. Abdomen is soft and nondistended. Extremities unremarkable. Plan/MDM: Patient presents emergency department for continued abdominal pain after being evaluated yesterday in the ED with the same complaint and having an observation admission recommended for serial abdominal exams. CT yesterday did not show any evidence of bowel obstruction but did show likely constipation. Patient is at higher risk for bowel obstruction given previous GI surgery to include partial sigmoid colectomy with primary anastomosis. Patient also reports that she is on Ozempic whichdoes increase her risk of gastroparesis. General surgery was already aware the patient return to the emergency department. They have ordered a CT scan of the abdomen pelvis with oral contrast. We obtained CBC, BMP, hepatic panel, lactic acid level, and lipase to compare to yesterday's lab results. Labs show no significant derangements or deflection from yesterday's results. CT of the abdomen and pelvis shows no significant acute interval changes or clear evidence of acute pathology. Cholelithiasis is noted. Plan is for admission for continued observation, evaluation, and management. Patients symptoms are consistent with sepsis, severe sepsis, or septic shock (If yes use .sepsiscoremeasure): No Please see subsequent provider note for further details and disposition This will serve as my Supervisory note and shared attestation. I did perform a substantive portion of the visit including all aspects of the Medical Decision Making. All diagnostic, treatment, and disposition decisions were made by myself in conjunction with the GALINDO. For all further details of the patient's emergency department visit, please see their documentation. (Comment: Please note this report has been produced using speech recognition software and may contain errors related to that system including errors in grammar, punctuation, and spelling as well as words and phrases that may be inappropriate. If there are any questions or concerns please feel free to contact the dictating provider for clarification) Jayjay Fortune MD [facility] Jayjay Fortune MD 08/21/23 1838 * Татьяна Price PA-C - 08/21/2023 11:53 AM EDT Emergency Department Encounter [facility] Emergency Department Patient: Sheyla Ramirez : 1945 Date of Evaluation: 08/21/2023 ED GALINDO Provider: Татьяна Price PA-C EDcare was supervised by Dr. Fortune who independently examined and evaluated the patient. Please see their attestation note for further details. Chief Complaint: Chief Complaint Patient presents with Abdominal Pain Patient was seen in ER yesterday where she was told she should stay for possible bowel obstruction,she decided to leave because she felt better but is now back with Abdominal pain History of Present Illness: Sheyla Ramirez is a 77 y.o. female who presented to the emergency department for evaluation of abdominal pain. Patient has been having symptoms since the end of July. Was seen here yesterday and felt better at discharge, after seeing general surgery. Patient states that her symptoms have worsened today.. Nursing notes were reviewed. Limitations to history: Outside historians: Review of Systems: Positives and pertinent negatives as per HPI. All other systems were reviewed and are acutely negative except as noted. Past History: Past Medical History: Diagnosis Date Diabetes mellitus, type 2 (HCC) Gastro-esophageal reflux disease without esophagitis Glaucoma Hypercholesterolemia Other constipation Other intestinal obstruction unspecified as to partial versus complete obstruction (HCC) Other specified symptoms and signs involving the digestive system and abdomen Personal history of colonic polyps Past Surgical History: Procedure Laterality Date COLONOSCOPY 2019 EGD (HISTORICAL) 2019 EGD (HISTORICAL) 08/04/2023 FLEXIBLE SIGMOIDOSCOPY N/A 08/22/2023 Performed by Val Chan MD at [facility] ENDOSCOPY SIGMOID COLECTOMY (HISTORICAL) 2010 Laparoscopic sigmoid colectomy for diverticulitis Social History Socioeconomic History Marital status: Tobacco Use Smoking status: Never Smokeless tobacco: Never Substance and Sexual Activity Alcohol use: Not Currently Comment: SOCIALLY Drug use: Never Social Determinants of Health Intimate Partner Violence: Not At Risk (08/21/2023) Humiliation, Afraid, Rape, and Kick questionnaire Fear of Current or Ex-Partner: No Emotionally Abused: No Physically Abused: No Sexually Abused: No Medications/Allergies: Current Discharge Medication List CONTINUE these medications which have NOT CHANGED Details atorvastatin (Lipitor) 10 MG tablet Take 10 mg by mouth daily. brimonidine (AlphaGAN) 0.2 % ophthalmic solution 1 drop 2 times daily. glimepiride (Amaryl) 4 MG tablet Take 4 mg by mouth every morning (before breakfast). losartan (Cozaar) 25 MG tablet Take by mouth. !! polyethylene glycol, PEG, 3350 (Miralax) 17 g packet Take 17 g by mouth daily for 3 days. Qty: 3 packet, Refills: 0 Semaglutide (OZEMPIC, 1 MG/DOSE, SC) Inject 1 mg under the skin 1 (one) time per week. cyclobenzaprine (Flexeril) 10 MG tablet Take 10 mg by mouth. docusate sodium (Colace) 100 MG capsule Take 1 capsule (100 mg) by mouth in the morning and 1 capsule (100 mg) in the evening. Qty: 60 capsule, Refills: 0 lansoprazole (Prevacid) [address] capsule Take by mouth every morning (before breakfast). Do not crush or chew. latanoprost (Xalatan) 0.005 % ophthalmic solution INSTILL 1 DROP INTO BOTH EYES ONCE A DAY ondansetron (Zofran) 4 MG tablet Take 1 tablet (4 mg) by mouth in the morning and 1 tablet (4 mg) at noon and 1 tablet (4 mg) in the evening and 1 tablet (4 mg) before bedtime. Do all this for 3 days. Qty: 12 tablet, Refills: 0 !! polyethylene glycol, PEG, 3350 (Miralax) 17 g packet Take by mouth. !! - Potential duplicate medications found. Please discuss with provider. Allergies Allergen Reactions Grass Pollen(K-O-R-T-Swt Todd) Unknown Molds & Smuts Unknown Lisinopril Cough Neomycin Hives Penicillins Hives Seasonal Runny nose Sulfa Antibiotics Physical Exam: ED Triage Vitals [08/21/23 1310] Temp Heart Rate Resp BP 36.7 C (98 F) 69 16 136/66 SpO2 Temp Source Heart Rate Source Patient Position 100 % Temporal Monitor Sitting BP Location FiO2 (%) Left arm -- Physical Exam Vitals and nursing note reviewed. Constitutional: General: She is not in acute distress. Appearance: She is well-developed. HENT: Head: Normocephalic and atraumatic. Eyes: Conjunctiva/sclera: Conjunctivae normal. Cardiovascular: Rate and Rhythm: Normal rate and regular rhythm. Heart sounds: No murmur heard. Pulmonary: Effort: Pulmonary effort is normal. No respiratory distress. Breath sounds: Normal breath sounds. Abdominal: Palpations: Abdomen is soft. Tenderness: There is generalized abdominal tenderness. Musculoskeletal: General: No swelling. Cervical back: Neck supple. Skin: General: Skin is warm and dry. Capillary Refill: Capillary refill takes less than 2 seconds. Neurological: Mental Status: She is alert. Psychiatric: Mood and Affect: Mood normal. Screenings: Patients symptoms are consistent with sepsis, severe sepsis, or septic shock (If yes use .sepsiscoremeasure): Diagnostics: Labs: Labs Reviewed BASIC METABOLIC PANEL - Abnormal Result Value SODIUM 138 POTASSIUM 4.2 CHLORIDE 104 CARBON DIOXIDE 26 UREA NITROGEN 14 CREATININE 0.66 GLUCOSE 115 (*) CALCIUM 9.6 ANION GAP 9 eGFR >90.0 BASIC METABOLIC PANEL - Abnormal SODIUM 137 POTASSIUM 3.7 CHLORIDE 106 CARBON DIOXIDE 22 UREA NITROGEN 10 CREATININE 0.63 GLUCOSE 175 (*) CALCIUM 8.7 ANION GAP 10 eGFR >90.0 HEMOGLOBIN A1C - Abnormal HEMOGLOBIN A1C 8.4 (*) ESTIMATED AVERAGE GLUCOSE 194 POCT GLUCOSE METER UNSOLICITED RESULTS - Abnormal Glucose 64 (*) Narrative: Performed by: [facility], [address] [place] [address] CLIA ID: [id number] POCT GLUCOSE METER UNSOLICITED RESULTS - Abnormal Glucose 157 (*) Narrative: Performed by: [facility], [address] [place] [address] CLIA ID: [id number] HEPATIC FUNCTION PANEL - Normal BILIRUBIN, TOTAL 0.8 BILIRUBIN, DIRECT 0.0 ALKALINE PHOSPHATASE 83 AST (SGOT) 31 ALT 26 ALBUMIN 4.5 TOTAL PROTEIN 7.7 LACTIC ACID WITH REFLEX - Normal LACTIC ACID 0.7 LIPASE - Normal LIPASE 97 CBC WITH AUTO DIFFERENTIAL - Normal Auto WBC 5.7 RBC 4.96 Hemoglobin 14.1 Hematocrit 43.2 MCV 87.1 MCH 28.4 MCHC 32.6 RDW 13.2 Platelets 190 MPV 10.3 nRBC 0.0 Neutrophils Relative 66.2 Lymphocytes Relative 24.4 Monocytes Relative 7.9 Eosinophils Relative 0.7 Basophils Relative 0.5 Immature Grans % 0.3 Neutrophils Absolute 3.8 Lymphocytes Absolute 1.4 Monocytes Absolute 0.5 Eosinophils Absolute 0.0 Basophils Absolute 0.0 Immature Grans Absolute 0.0 CBC WITH AUTO DIFFERENTIAL - Normal Auto WBC 5.9 RBC 4.25 Hemoglobin 11.8 Hematocrit 37.5 MCV 88.2 MCH 27.8 MCHC 31.5 RDW 13.1 Platelets 165 MPV 10.6 nRBC 0.0 Neutrophils Relative 45.4 Lymphocytes Relative 44.0 Monocytes Relative 8.1 Eosinophils Relative 1.7 Basophils Relative 0.5 Immature Grans % 0.3 Neutrophils Absolute 2.7 Lymphocytes Absolute 2.6 Monocytes Absolute 0.5 Eosinophils Absolute 0.1 Basophils Absolute 0.0 Immature Grans Absolute 0.0 POCT GLUCOSE METER UNSOLICITED RESULTS - Normal Glucose 72 Narrative: Performed by: [facility], [address] [place], [place] [id number] CLIA ID: [id number] POCT GLUCOSE METER UNSOLICITED RESULTS - Normal Glucose 91 Narrative: Performed by: [facility], [address] [place], [place] [id number] CLIA ID: [id number] BASIC METABOLIC PANEL WITH MG REFLEX Narrative: The following orders were created for panel order Basic Metabolic Panel w/ Mg Reflex. Procedure Abnormality Status --------- ------ Basic metabolic panel[[id number]] Abnormal Final result Please view results for these tests on the individual orders. POCT GLUCOSE METER POCT GLUCOSE METER POCT GLUCOSE METER POCT GLUCOSE METER Radiographs: CT abdomen pelvis w contrast Final Result 1. Findings suspicious for cholelithiasis. 2. No other acute findings or significant interval change. Please see above for further details. Report Dictated on Electronically Signed By: Rodríguez Franklin MD Electronically Signed Date/Time: 08/21/2023 5:35 PM EDT Procedures: Procedures EKG: All EKG's are interpreted by the Emergency Department Physician in the absence of a winterizer. Please see Jannie for interpretation of EKG. Emergency Department Course and Medical Decision Making In brief, Sheyla Ramirez is a 77 y.o. female who presented to the emergency department for evaluation of abdominal pain. Physical exam as above, patient nontoxic in appearance. Vital signs upon arrival are normal External records reviewed: Screening labs and imaging were obtained, BMP and Packovich panel are benign, lactic acid is normal, CBC is benign, CT scan was obtained with oral contrast, findings are suspicious for cholelithiasis, no evidence of small bowel obstruction. General surgery was consulted, They came to assess patient, 1900: patient was signed out to my colleague Татьяна Mckay [employer], please see her note for patient's final disposition. MDM elements: Diagnostic tests considered but not performed: Diagnostics interpreted by me: Discussions with other clinicians: Chronic conditions impacting care: Social determinants of health affecting care: . ED Medications managed: Medications lactated Ringer's infusion (75 mL/hr IntraVENous New Bag 08/22/23 0835) atorvastatin (Lipitor) tablet 10 mg ( Oral Dose Auto Held 08/26/23 0900) brimonidine (AlphaGAN) 0.2 % ophthalmic solution 1 drop ( Both Eyes Dose Auto Held 08/29/23 2100) docusate sodium (Colace) capsule 100 mg ( Oral Dose Auto Held 08/29/23 2200) latanoprost (Xalatan) 0.005 % ophthalmic solution 1 drop ( Both Eyes Dose Auto Held 08/29/232099) losartan (Cozaar) tablet 25 mg ( Oral Dose Auto Held 08/26/23 0900) acetaminophen (Tylenol) tablet 650 mg ( Oral MAR Hold 08/22/23 0730) Or acetaminophen (Tylenol) suppository 650 mg ( Rectal MAR Hold 08/22/23729) ondansetron ODT (Zofran-ODT) disintegrating tablet 4 mg ( Oral MAR Hold 08/22/23 0730) Or ondansetron (Zofran) injection 4 mg ( IntraVENous MAR Hold 08/22/23 07) polyethylene glycol (PEG) 3350 (Miralax) packet 17 g ( Oral MAR Hold 08/22/23 0730) insulin regular (HumuLIN R,NovoLIN R) injection 0-6 Units ( SubCUTAneous Dose Auto Held 08/29/23 2230) glucose oral gel 15 g ( Oral MAR Hold 08/22/23729) dextrose 50 % solution 12.5 g ( IntraVENous MAR Hold 08/22/23729) glucagon (human recombinant) injection 1 mg ( IntraMUSCular MAR Hold 08/22/23729) dextrose 5 % infusion ( IntraVENous MAR Hold 08/22/23729) lansoprazole (Prevacid SoluTab) disintegrating tablet 30 mg ( Oral Dose Auto Held 08/26/23 0600) Non-Formulary Medication ( Oral Dose Auto Held 08/26/23 1800) diatrizoate meglumine-sodium (Gastrografin) 66-10 % solution 30 mL (30 mL Oral Given 08/21/23 1404) ondansetron (Zofran) injection 4 mg (4 mg IntraVENous Given 08/21/23 1404) iopamidol (Isovue-370) 76 % injection 75 mL (75 mL IntraVENous Given 08/21/23 1655) Prescription drugs considered: Critical Care: None Consults: None FINAL IMPRESSION 1. Generalized abdominal pain 2. Nausea and vomiting, unspecified vomiting type DISPOSITION: Admit 08/21/2023 08:35:24 PM PATIENT REFERRED TO: No follow-up provider specified. DISCHARGE MEDICATIONS: Current Discharge Medication List Татьяна Price PA-C [employer] Татьяна Price PA-C 08/22/23913 * Татьяна Mckay APRN - DANNI - 08/21/2023 11:53 AM EDT Emergency Department Encounter Location: [facility] EMERGENCY DEPT Patient: Sheyla Ramirez : 1945 Date of evaluation: 08/21/2023 ED Provider: SANTI Hope CNP Time received sign-out: 1899 Sheyla Ramirez was checked out to me by Татьяна Price PA-C. Please see his/her initial documentation for details of the patient's initial ED presentation, physical exam and completed studies. In brief, Sheyla Ramirez is a 77 y.o. adult that presented to the emergency department today with concern for small bowel obstruction. Patient was seen for same problem yesterday, and was discharged after surgical evaluation, reporting improvement in symptoms. Patient reports that after discharge, symptoms acutely worsened, causing her to come back in for evaluation. I have reviewed and interpreted all of the currently available lab results and diagnostics from this visit: Results for orders placed or performed during the hospital encounter of 08/21/23 Basic metabolic panel Result Value Ref Range SODIUM 138 135 - 145 mmol/L POTASSIUM 4.2 3.5 - 5.1 mmol/L CHLORIDE 104 98 - 107 mmol/L CARBON DIOXIDE 26 22 - 30 mmol/L UREA NITROGEN 14 7 - 17 mg/dL CREATININE 0.66 0.52 - 1.04 mg/dL GLUCOSE 115 (H) 70 - 100 mg/dL CALCIUM 9.6 8.4 - 10.4 mg/dL ANION GAP 9 3 - 13 mmol/L eGFR >90.0 >60.0 mL/min/1.73m*2 Hepatic function panel Result Value Ref Range BILIRUBIN, TOTAL 0.8 0.2 - 1.3 mg/dL BILIRUBIN, DIRECT 0.0 0.0 - 0.3 mg/dL ALKALINE PHOSPHATASE 83 38 - 126 U/L AST (SGOT) 31 15 - 46 U/L ALT 26 0 - 34 U/L ALBUMIN 4.5 3.5 - 5.0 g/dL TOTAL PROTEIN 7.7 6.3 - 8.2 g/dL Lactic acid with reflex Result Value Ref Range LACTIC ACID 0.7 0.7 - 2.0 mmol/L Lipase Result Value Ref Range LIPASE 97 23 - 300 U/L CBC auto differential Result Value Ref Range Auto WBC 5.7 3.6 - 10.7 10*3/uL RBC 4.96 3.80 - 5.20 10*6/uL Hemoglobin 14.1 11.7 - 16.0 g/dL Hematocrit 43.2 35.0 - 47.0 % MCV 87.1 77.0 - 99.0 fL MCH 28.4 26.0 - 34.0 pg MCHC 32.6 30.5 - 36.0 % RDW 13.2 11.5 - 15.0 % Platelets 190 140 - 440 10*3/uL MPV 10.3 9.0 - 12.7 fL nRBC 0.0 0.0 - 2.0 /100 WBCs Neutrophils Relative 66.2 38.0 - 82.0 % Lymphocytes Relative 24.4 15.0 - 45.0 % Monocytes Relative 7.9 5.0 - 13.0 % Eosinophils Relative 0.7 0.0 - 6.0 % Basophils Relative 0.5 0.0 - 2.0 % Immature Grans % 0.3 0.0 - 2.0 % Neutrophils Absolute 3.8 1.8 - 7.5 10*3/uL Lymphocytes Absolute 1.4 1.0 - 4.3 10*3/uL Monocytes Absolute 0.5 0.0 - 0.9 10*3/uL Eosinophils Absolute 0.0 0.0 - 0.5 10*3/uL Basophils Absolute 0.0 0.0 - 0.2 10*3/uL Immature Grans Absolute 0.0 <0.1 10*3/uL CT abdomen pelvis w contrast Final Result 1. Findings suspicious for cholelithiasis. 2. No other acute findings or significant interval change. Please see above for further details. Report Dictated on Electronically Signed By: Rodríguez Franklin MD Electronically Signed Date/Time: 08/21/2023 5:35 PM EDT Final ED Course and MDM: In brief, Sheyla Ramirez is a 77 y.o. whose care was signed out to me by the outgoing provider. In brief, patient came in to the ED complaining of abdominal pain and concerned for bowel obstruction. Laboratory studies obtained included BMP, CBC, Hepatic function panel, lipase level, and lactic acid, all of which were unremarkable. CT of the abdomen and pelvis with IV contrast obtained which showed findings suggestive of cholelithiasis without acute cholecystitis. At time of sign out, patient pending re-evaluation by general surgery. General surgery, Dr. Bergman, did report to ED to evaluate patientand recommended medical admission with surgery following patient through the weekend. Also recommended clear liquid diet for patient at this time. I reached out to [facility] hospitalist service and spoke with Dr. Swenson who agreed to admit patient to his service. Patient will be admitted at this time. Medications lactated Ringer's infusion (has no administration in time range) diatrizoate meglumine-sodium (Gastrografin) 66-10 % solution 30 mL (30 mL Oral Given 08/21/23 1404) ondansetron (Zofran) injection 4 mg (4 mg IntraVENous Given 08/21/23 1404) iopamidol (Isovue-370) 76 % injection 75 mL (75 mL IntraVENous Given 08/21/23 1655) Final Impression 1. Generalized abdominal pain 2. Nausea and vomiting, unspecified vomiting type DISPOSITION Admit 08/21/2023 08:35:24 PM (Please note that portions of this note may have been completed with a voice recognition program. Efforts were made to edit the dictations but occasionally words are mis-transcribed.) SANTI Hope CNP [facility] SANTI Condon CNP 08/21/232036 documented in this [facility]07-05-2024 Physician Emergency department Note* Jayjay Fortune MD - 08/21/2023 11:53 AM EDT Emergency Department Encounter [facility] EMERGENCY DEPT Patient: Sheyla Ramirez : 1945 Date of Evaluation: 08/21/2023 ED Provider: Jayjay Fortune MD I saw the patient as the Clinician in Triage and performed a brief history and physical exam, established acuity, and ordered appropriate tests to develop basic plan of care. Patient will be seen by GALINDO, resident and/or my physician partner who will evaluate the patient. I wore appropriate PPE for the entirety of this encounter. Brief HPI: In brief, Sheyla Ramirez is a 77 y.o. that presents with chief complaint of abdominal pain.Patient was just in the ED yesterday with the same concern. She states that she was concerned she had a bowel obstruction. Workup in the ED at that time included CT scan and labs which showed no significant abnormality. Patient was having enough discomfort however and has had previous bowel obstruct ion secondary to partial sigmoid colectomy that general surgery was consulted. They evaluated the patient in the emergency department and recommended observation admission for serial abdominal exams and further recommendations pending reevaluation in the a.m. At the time patient elected to be discharged home as she was feeling somewhat improved after symptomatic therapy in the ED. She states thattoday however the pain has returned and is slightly worse than yesterday. Due to this she decided to come to the emergency department for reevaluation. Her primary concern is that she vomited today approximately 40 minutes after attempting to eat breakfast patient states that she had not been having any vomiting when she came to the ED yesterday. Focused Physical exam: Awake, alert, appears tired but is oriented x 4. Skin is warm, dry, intact. Normal heart rate and heart sounds. Normal respiratory rate and effort. Abdomen is diffusely tender but is without rebound, guarding, or palpable abnormalities. Abdomen is soft and nondistended. Extremities unremarkable. Plan/MDM: Patient presents emergency department for continued abdominal pain after being evaluated yesterday in the ED with the same complaint and having an observation admission recommended for serial abdominal exams. CT yesterday did not show any evidence of bowel obstruction but did show likely constipation. Patient is at higher risk for bowel obstruction given previous GI surgery to include partial sigmoid colectomy with primary anastomosis. Patient also reports that she is on Ozempic whichdoes increase her risk of gastroparesis. General surgery was already aware the patient return to the emergency department. They have ordered a CT scan of the abdomen pelvis with oral contrast. We obtained CBC, BMP, hepatic panel, lactic acid level, and lipase to compare to yesterday's lab results. Labs show no significant derangements or deflection from yesterday's results. CT of the abdomen and pelvis shows no significant acute interval changes or clear evidence of acute pathology. Cholelithiasis is noted. Plan is for admission for continued observation, evaluation, and management. Patients symptoms are consistent with sepsis, severe sepsis, or septic shock (If yes use .sepsiscoremeasure): No Please see subsequent provider note for further details and disposition This will serve as my Supervisory note and shared attestation. I did perform a substantive portion of the visit including all aspects of the Medical Decision Making. All diagnostic, treatment, and disposition decisions were made by myself in conjunction with the G[facility]. For all further details of the patient's emergency department visit, please see their documentation. (Comment: Please note this report has been produced using speech recognition software and may contain errors related to that system including errors in grammar, punctuation, and spelling as well as words and phrases that may be inappropriate. If there are any questions or concerns please feel free to contact the dictating provider for clarification) Jayjay Fortune MD [facility] Jayjay Fortune MD 08/21/23 1838 [id number] Physician Emergency department Note* Татьяна Price PA-C - 08/21/2023 11:53 AM EDT Emergency Department Encounter [facility] Emergency Department Patient: Sheyla Ramirez : 1945 Date of Evaluation: 08/21/2023 ED [facility] Provider: Татьяна Price PA-C EDcare was supervised by Dr. Fortune who independently examined and evaluated the patient. Please see their attestation note for further details. Chief Complaint: Chief Complaint Patient presents with Abdominal Pain Patient was seen in ER yesterday where she was told she should stay for possible bowel obstruction,she decided to leave because she felt better but is now back with Abdominal pain History of Present Illness: Sheyla Ramirez is a 77 y.o. female who presented to the emergency department for evaluation of abdominal pain. Patient has been having symptoms since the end of July. Was seen here yesterday and felt better at discharge, after seeing general surgery. Patient states that her symptoms have worsened today.. Nursing notes were reviewed. Limitations to history: Outside historians: Review of Systems: Positives and pertinent negatives as per HPI. All other systems were reviewed and are acutely negative except as noted. Past History: Past Medical History: Diagnosis Date Diabetes mellitus, type 2 (HCC) Gastro-esophageal reflux disease without esophagitis Glaucoma Hypercholesterolemia Other constipation Other intestinal obstruction unspecified as to partial versus complete obstruction (HCC) Other specified symptoms and signs involving the digestive system and abdomen Personal history of colonic polyps Past Surgical History: Procedure Laterality Date COLONOSCOPY 2019 EGD (HISTORICAL) 2019 EGD (HISTORICAL) 08/04/2023 FLEXIBLE SIGMOIDOSCOPY N/A 08/22/2023 Performed by Val Chan MD at [facility] ENDOSCOPY SIGMOID COLECTOMY (HISTORICAL) 2010 Laparoscopic sigmoid colectomy for diverticulitis Social History Socioeconomic History Marital status: Tobacco Use Smoking status: Never Smokeless tobacco: Never Substance and Sexual Activity Alcohol use: Not Currently Comment: SOCIALLY Drug use: Never Social Determinants of Health Intimate Partner Violence: Not At Risk (08/21/2023) Humiliation, Afraid, Rape, and Kick questionnaire Fear of Current or Ex-Partner: No Emotionally Abused: No Physically Abused: No Sexually Abused: No Medications/Allergies: Current Discharge Medication List CONTINUE these medications which have NOT CHANGED Details atorvastatin (Lipitor) 10 MG tablet Take 10 mg by mouth daily. brimonidine (AlphaGAN) 0.2 % ophthalmic solution 1 drop 2 times daily. glimepiride (Amaryl) 4 MG tablet Take 4 mg by mouth every morning (before breakfast). losartan (Cozaar) 25 MG tablet Take by mouth. !! polyethylene glycol, PEG, 3350 (Miralax) 17 g packet Take 17 g by mouth daily for 3 days. Qty: 3 packet, Refills: 0 Semaglutide (OZEMPIC, 1 MG/DOSE, SC) Inject 1 mg under the skin 1 (one) time per week. cyclobenzaprine (Flexeril) 10 MG tablet Take 10 mg by mouth. docusate sodium (Colace) 100 MG capsule Take 1 capsule (100 mg) by mouth in the morning and 1 capsule (100 mg) in the evening. Qty: 60 capsule, Refills: 0 lansoprazole (Prevacid) [address] capsule Take by mouth every morning (before breakfast). Do not crush or chew. latanoprost (Xalatan) 0.005 % ophthalmic solution INSTILL 1 DROP INTO BOTH EYES ONCE A DAY ondansetron (Zofran) 4 MG tablet Take 1 tablet (4 mg) by mouth in the morning and 1 tablet (4 mg) at noon and 1 tablet (4 mg) in the evening and 1 tablet (4 mg) before bedtime. Do all this for 3 days. Qty: 12 tablet, Refills: 0 !! polyethylene glycol, PEG, 3350 (Miralax) 17 g packet Take by mouth. !! - Potential duplicate medications found. Please discuss with provider. Allergies Allergen Reactions Grass Pollen(K-O-R-T-Swt Todd) Unknown Molds & Smuts Unknown Lisinopril Cough Neomycin Hives Penicillins Hives Seasonal Runny nose Sulfa Antibiotics Physical Exam: ED Triage Vitals [08/21/23 1310] Temp Heart Rate Resp BP 36.7 C (98 F) 69 16 136/66 SpO2 Temp Source Heart Rate Source Patient Position 100 % Temporal Monitor Sitting BP Location FiO2 (%) Left arm -- Physical Exam Vitals and nursing note reviewed. Constitutional: General: She is not in acute distress. Appearance: She is well-developed. HENT: Head: Normocephalic and atraumatic. Eyes: Conjunctiva/sclera: Conjunctivae normal. Cardiovascular: Rate and Rhythm: Normal rate and regular rhythm. Heart sounds: No murmur heard. Pulmonary: Effort: Pulmonary effort is normal. No respiratory distress. Breath sounds: Normal breath sounds. Abdominal: Palpations: Abdomen is soft. Tenderness: There is generalized abdominal tenderness. Musculoskeletal: General: No swelling. Cervical back: Neck supple. Skin: General: Skin is warm and dry. Capillary Refill: Capillary refill takes less than 2 seconds. Neurological: Mental Status: She is alert. Psychiatric: Mood and Affect: Mood normal. Screenings: Patients symptoms are consistent with sepsis, severe sepsis, or septic shock (If yes use .sepsiscoremeasure): Diagnostics: Labs: Labs Reviewed BASIC METABOLIC PANEL - Abnormal Result Value SODIUM 138 POTASSIUM 4.2 CHLORIDE 104 CARBON DIOXIDE 26 UREA NITROGEN 14 CREATININE 0.66 GLUCOSE 115 (*) CALCIUM 9.6 ANION GAP 9 eGFR >90.0 BASIC METABOLIC PANEL - Abnormal SODIUM 137 POTASSIUM 3.7 CHLORIDE 106 CARBON DIOXIDE 22 UREA NITROGEN 10 CREATININE 0.63 GLUCOSE 175 (*) CALCIUM 8.7 ANION GAP 10 eGFR >90.0 HEMOGLOBIN A1C - Abnormal HEMOGLOBIN A1C 8.4 (*) ESTIMATED AVERAGE GLUCOSE 194 POCT GLUCOSE METER UNSOLICITED RESULTS - Abnormal Glucose 64 (*) Narrative: Performed by: [employer] [facility], [address] [place] [address] CLIA ID: [id number] POCT GLUCOSE METER UNSOLICITED RESULTS - Abnormal Glucose 157 (*) Narrative: Performed by: [facility], [address] [place], [place] [id number] CLIA ID: [id number] HEPATIC FUNCTION PANEL - Normal BILIRUBIN, TOTAL 0.8 BILIRUBIN, DIRECT 0.0 ALKALINE PHOSPHATASE 83 AST (SGOT) 31 ALT 26 ALBUMIN 4.5 TOTAL PROTEIN 7.7 LACTIC ACID WITH REFLEX - Normal LACTIC ACID 0.7 LIPASE - Normal LIPASE 97 CBC WITH AUTO DIFFERENTIAL - Normal Auto WBC 5.7 RBC 4.96 Hemoglobin 14.1 Hematocrit 43.2 MCV 87.1 MCH 28.4 MCHC 32.6 RDW 13.2 Platelets 190 MPV 10.3 nRBC 0.0 Neutrophils Relative 66.2 Lymphocytes Relative 24.4 Monocytes Relative 7.9 Eosinophils Relative 0.7 Basophils Relative 0.5 Immature Grans % 0.3 Neutrophils Absolute 3.8 Lymphocytes Absolute 1.4 Monocytes Absolute 0.5 Eosinophils Absolute 0.0 Basophils Absolute 0.0 Immature Grans Absolute 0.0 CBC WITH AUTO DIFFERENTIAL - Normal Auto WBC 5.9 RBC 4.25 Hemoglobin 11.8 Hematocrit 37.5 MCV 88.2 MCH 27.8 MCHC 31.5 RDW 13.1 Platelets 165 MPV 10.6 nRBC 0.0 Neutrophils Relative 45.4 Lymphocytes Relative 44.0 Monocytes Relative 8.1 Eosinophils Relative 1.7 Basophils Relative 0.5 Immature Grans % 0.3 Neutrophils Absolute 2.7 Lymphocytes Absolute 2.6 Monocytes Absolute 0.5 Eosinophils Absolute 0.1 Basophils Absolute 0.0 Immature Grans Absolute 0.0 POCT GLUCOSE METER UNSOLICITED RESULTS - Normal Glucose 72 Narrative: [facility]formed [facility]: [facility], [address] [place], [place] [id number] CLIA ID: [id number] POCT GLUCOSE METER UNSOLICITED RESULTS - Normal Glucose 91 Narrative: Performed by: [facility], [address] [place], [place] [id number] CLIA ID: [id number] BASIC METABOLIC PANEL WITH MG REFLEX Narrative: The following orders were created for panel order Basic Metabolic Panel w/ Mg Reflex. Procedure Abnormality Status --------- ------ Basic metabolic panel[[id number]] Abnormal Final result Please view results for these tests on the individual orders. POCT GLUCOSE METER POCT GLUCOSE METER POCT GLUCOSE METER POCT GLUCOSE METER Radiographs: CT abdomen pelvis w contrast Final Result 1. Findings suspicious for cholelithiasis. 2. No other acute findings or significant interval change. Please see above for further details. Report Dictated on Electronically Signed By: Rodríguez Franklin MD Electronically Signed Date/Time: 08/21/2023 5:35 PM EDT Procedures: Procedures EKG: All EKG's are interpreted by the Emergency Department Physician in the absence of a winterizer. Please see Epiphany for interpretation of EKG. Emergency Department Course and Medical Decision Making In brief, Sheyla Ramirez is a 77 y.o. female who presented to the emergency department for evaluation of abdominal pain. Physical exam as above, patient nontoxic in appearance. Vital signs upon arrival are normal External records reviewed: Screening labs and imaging were obtained, BMP and Packovich panel are benign, lactic acid is normal, CBC is benign, CT scan was obtained with oral contrast, findings are suspicious for cholelithiasis, no evidence of small bowel obstruction. General surgery was consulted, They came to assess patient, 1900: patient was signed out to my colleague Татьяна Mckay [employer], please see her note for patient's final disposition. MDM elements: Diagnostic tests considered but not performed: Diagnostics interpreted by me: Discussions with other clinicians: Chronic conditions impacting care: Social determinants of health affecting care: . ED Medications managed: Medications lactated Ringer's infusion (75 mL/hr IntraVENous New Bag 08/22/23 0835) atorvastatin (Lipitor) tablet 10 mg ( Oral Dose Auto Held 08/26/23 09) brimonidine (AlphaGAN) 0.2 % ophthalmic solution 1 drop ( Both Eyes Dose Auto Held 08/29/23 2100) docusate sodium (Colace) capsule 100 mg ( Oral Dose Auto Held 08/29/23 2200) latanoprost (Xalatan) 0.005 % ophthalmic solution 1 drop ( Both Eyes Dose Auto Held 08/29/23 2100) losartan (Cozaar) tablet 25 mg ( Oral Dose Auto Held 08/26/23 0900) acetaminophen (Tylenol) tablet 650 mg ( Oral MAR Hold 08/22/23 0730) Or acetaminophen (Tylenol) suppository 650 mg ( Rectal MAR Hold 08/22/23 0730) ondansetron ODT (Zofran-ODT) disintegrating tablet 4 mg ( Oral MAR Hold 08/22/23 0730) Or ondansetron (Zofran) injection 4 mg ( IntraVENous MAR Hold 08/22/23 0730) polyethylene glycol (PEG) 3350 (Miralax) packet 17 g ( Oral MAR Hold 08/22/23 0730) insulin regular (HumuLIN R,NovoLIN R) injection 0-6 Units ( SubCUTAneous Dose Auto Held 08/29/23 2230) glucose oral gel 15 g ( Oral MAR Hold 08/22/23 07) dextrose 50 % solution 12.5 g ( IntraVENous MAR Hold 08/22/23 07) glucagon (human recombinant) injection 1 mg ( IntraMUSCular MAR Hold 08/22/23729) dextrose 5 % infusion ( IntraVENous MAR Hold 08/22/23 0730) lansoprazole (Prevacid SoluTab) disintegrating tablet 30 mg ( Oral Dose Auto Held 08/26/23 0600) Non-Formulary Medication ( Oral Dose Auto Held 08/26/23 1800) diatrizoate meglumine-sodium (Gastrografin) 66-10 % solution 30 mL (30 mL Oral Given 08/21/23 1404) ondansetron (Zofran) injection 4 mg (4 mg IntraVENous Given 08/21/23 1404) iopamidol (Isovue-370) 76 % injection 75 mL (75 mL IntraVENous Given 08/21/23 1655) Prescription drugs considered: Critical Care: None Consults: None FINAL IMPRESSION 1. Generalized abdominal pain 2. Nausea and vomiting, unspecified vomiting type DISPOSITION: Admit 08/21/2023 08:35:24 PM PATIENT REFERRED TO: No follow-up provider specified. DISCHARGE MEDICATIONS: Current Discharge Medication List Татьяна Price PA-C [employer] Татьяна Price PA-C 08/22/23913 [employer] Phone: [phone] Physician Emergency department Note* Татьяна Mckay APRN - DANNI - 08/21/2023 11:53 AM EDT Emergency Department Encounter Location: [facility] EMERGENCY DEPT Patient: Sheyla Ramirez : 1945 Date of evaluation: 08/21/2023 ED Provider: SANTI Hope CNP Time received sign-out: 1899 Sheyla Ramirez was checked out to me by Татьяна Price PA-C. Please see his/her initial documentation for details of the patient's initial ED presentation, physical exam and completed studies. In brief, Sheyla Ramirez is a 77 y.o. adult that presented to the emergency department today with concern for small bowel obstruction. Patient was seen for same problem yesterday, and was discharged after surgical evaluation, reporting improvement in symptoms. Patient reports that after discharge, symptoms acutely worsened, causing her to come back in for evaluation. I have reviewed and interpreted all of the currently available lab results and diagnostics from this visit: Results for orders placed or performed during the hospital encounter of 08/21/23 Basic metabolic panel Result Value Ref Range SODIUM 138 135 - 145 mmol/L POTASSIUM 4.2 3.5 - 5.1 mmol/L CHLORIDE 104 98 - 107 mmol/L CARBON DIOXIDE 26 22 - 30 mmol/L UREA NITROGEN 14 7 - 17 mg/dL CREATININE 0.66 0.52 - 1.04 mg/dL GLUCOSE 115 (H) 70 - 100 mg/dL CALCIUM 9.6 8.4 - 10.4 mg/dL ANION GAP 9 3 - 13 mmol/L eGFR >90.0 >60.0 mL/min/1.73m*2 Hepatic function panel Result Value Ref Range BILIRUBIN, TOTAL 0.8 0.2 - 1.3 mg/dL BILIRUBIN, DIRECT 0.0 0.0 - 0.3 mg/dL ALKALINE PHOSPHATASE 83 38 - 126 U/L AST (SGOT) 31 15 - 46 U/L ALT 26 0 - 34 U/L ALBUMIN 4.5 3.5 - 5.0 g/dL TOTAL PROTEIN 7.7 6.3 - 8.2 g/dL Lactic acid with reflex Result Value Ref Range LACTIC ACID 0.7 0.7 - 2.0 mmol/L Lipase Result Value Ref Range LIPASE 97 23 - 300 U/L CBC auto differential Result Value Ref Range Auto WBC 5.7 3.6 - 10.7 10*3/uL RBC 4.96 3.80 - 5.20 10*6/uL Hemoglobin 14.1 11.7 - 16.0 g/dL Hematocrit 43.2 35.0 - 47.0 % MCV 87.1 77.0 - 99.0 fL MCH 28.4 26.0 - 34.0 pg MCHC 32.6 30.5 - 36.0 % RDW 13.2 11.5 - 15.0 % Platelets 190 140 - 440 10*3/uL MPV 10.3 9.0 - 12.7 fL nRBC 0.0 0.0 - 2.0 /100 WBCs Neutrophils Relative 66.2 38.0 - 82.0 % Lymphocytes Relative 24.4 15.0 - 45.0 % Monocytes Relative 7.9 5.0 - 13.0 % Eosinophils Relative 0.7 0.0 - 6.0 % Basophils Relative 0.5 0.0 - 2.0 % Immature Grans % 0.3 0.0 - 2.0 % Neutrophils Absolute 3.8 1.8 - 7.5 10*3/uL Lymphocytes Absolute 1.4 1.0 - 4.3 10*3/uL Monocytes Absolute 0.5 0.0 - 0.9 10*3/uL Eosinophils Absolute 0.0 0.0 - 0.5 10*3/uL Basophils Absolute 0.0 0.0 - 0.2 10*3/uL Immature Grans Absolute 0.0 <0.1 10*3/uL CT abdomen pelvis w contrast Final Result 1. Findings suspicious for cholelithiasis. 2. No other acute findings or significant interval change. Please see above for further details. Report Dictated on Electronically Signed By: Rodríguez Franklin MD Electronically Signed Date/Time: 08/21/2023 5:35 PM EDT Final ED Course and MDM: In brief, Sheyla Ramirez is a 77 y.o. whose care was signed out to me by the outgoing provider. In brief, patient came in to the ED complaining of abdominal pain and concerned for bowel obstruction. Laboratory studies obtained included BMP, CBC, Hepatic function panel, lipase level, and lactic acid, all of which were unremarkable. CT of the abdomen and pelvis with IV contrast obtained which showed findings suggestive of cholelithiasis without acute cholecystitis. At time of sign out, patient pending re-evaluation by general surgery. General surgery, Dr. Bergman, did report to ED to evaluate patientand recommended medical admission with surgery following patient through the weekend. Also recommended clear liquid diet for patient at this time. I reached out to [facility] hospitalist service and spoke with Dr. Swenson who agreed to admit patient to his service. Patient will be admitted at this time. Medications lactated Ringer's infusion (has no administration in time range) diatrizoate meglumine-sodium (Gastrografin) 66-10 % solution 30 mL (30 mL Oral Given 08/21/23 1404) ondansetron (Zofran) injection 4 mg (4 mg IntraVENous Given 08/21/23 1404) iopamidol (Isovue-370) 76 % injection 75 mL (75 mL IntraVENous Given 08/21/23 1655) Final Impression 1. Generalized abdominal pain 2. Nausea and vomiting, unspecified vomiting type DISPOSITION Admit 08/21/2023 08:35:24 PM (Please note that portions of this note may have been completed with a voice recognition program. Efforts were made to edit the dictations but occasionally words are mis-transcribed.) Татьяна Mckay APRN - DANNI [employer] SANTI Condon CNP 08/21/232036 [id number] Emergency department Note* Kandy Perea RN - 08/20/2023 1:00 PM EDT Discharge teaching completed. Pt verbalizes understanding of medications, times to return to the ED, and follow up care discussed. Pt is stable and ambulatory upon discharge. Pt is a/o x 3; breathing is even and unlabored on room air. No distress noted. Pt leaves ED with all belongings. Kandy Perea RN 08/20/23 1300 [facility] [id number] NoteDischarge teaching completed. Pt verbalizes understanding of medications, times to return to the ED, and follow up care discussed. Pt is stable and ambulatory upon discharge. Pt is a/o x 3; breathing is even and unlabored on room air. No distress noted. Pt leaves ED with all belongings. Kandy Perea RN 08/20/[address] [place], [place] [id number] Emergency department Note* Kandy Perea RN - 08/20/2023 1:00 PM EDT Discharge teaching completed. Pt verbalizes understanding of medications, times to return to the ED, and follow up care discussed. Pt is stable and ambulatory upon discharge. Pt is a/o x 3; breathing is even and unlabored on room air. No distress noted. Pt leaves ED with all belongings. Kandy Perea RN 08/20/23 1300 * Kimberley Carson RN - 08/20/2023 6:51 AM EDT Pt came to room from ED triage. Pt states she has a bowel obstruction. Pt states she has a hx of bowel obstructions in the past. Pt is alert and responsive to nurse x4. Breathing is even and unlabored at 16bpm. Pt states she is in no pain at this time, just discomfort. Bed is locked and in lowest position. Bedrails up x2. Call light within reach. Kimberley Carson RN 08/20/23 0652 * Hoa Calhoun PA-C - 08/20/2023 6:20 AM EDT EMERGENCY DEPARTMENT ENCOUNTER Pt Name: Sheyla Ramirez Birthdate 1945 Date of evaluation: 08/20/2023 ED Provider: Hoa Calhoun PA-C CHIEF COMPLAINT Chief Complaint Patient presents with Abdominal Pain Pt walked in through triage c/o mid ABD pain since 08/05. Pt states HX of SBO. Pt states nausea but denies vomiting. Pt A&OX4. HISTORY OF PRESENT ILLNESS (Location/Symptom, Timing/Onset, Context/Setting, Quality, Duration, Modifying Factors, Severity) Note limiting factors. I wore appropriate PPE for the entirety of this encounter. HPI Sheyla Ramirez is a 77 y.o. female with A History of Type 2 Diabetes, GERD, Glaucoma, History of Obstruction in the Abdomen, History of Colonic Polyps who presents to the emergency department for further evaluation of concern for abdominal pain, patient states that she has been having mild abdominal pain worse in the left lower quadrant since 08/05 after having EGD done by Dr. Kruse on 24. 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 She has not had any previous obstruction, and states that she has not passed any gas, and has not had a true formed bowel movement since she had the EGD done. She states that she has been taking MiraLAX, and has had a small amount of stool passed, that occurred 2 days ago, but since then has not passed any stool, and passed no gas. Has associated nausea. No vomiting. No fevers no bodyaches no chills at home. Denies any urinary symptoms. Denies any chest pain or shortness of breat has no lightheadedness, no urinary symptoms. Nursing Notes were reviewed. Limitations to history: None Outside historians: None REVIEW OF SYSTEMS Review of Systems 14 systems reviewed, positives and pertinent negatives as per HPI. All other systems were reviewed and are negative. PAST MEDICAL HISTORY Past Medical History: Diagnosis Date Diabetes mellitus, type 2 (HCC) Gastro-esophageal reflux disease without esophagitis Glaucoma Hypercholesterolemia Other constipation Other intestinal obstruction unspecified as to partial versus complete obstruction (HCC) Other specified symptoms and signs involving the digestive system and abdomen Personal history of colonic polyps SURGICAL HISTORY Past Surgical History: Procedure Laterality Date COLONOSCOPY 2019 EGD (HISTORICAL) 2019 EGD (HISTORICAL) 08/04/2023 SIGMOID COLECTOMY (HISTORICAL) 2010 Laparoscopic sigmoid colectomy for diverticulitis CURRENT MEDICATIONS Discharge Medication List as of 08/20/2023 12:15 PM CONTINUE these medications which have NOT CHANGED Details atorvastatin (Lipitor) 10 MG tablet Take 10 mg by mouth daily., Historical Med brimonidine (AlphaGAN) 0.2 % ophthalmic solution 1 drop 2 times daily., Historical Med glimepiride (Amaryl) 4 MG tablet Take 4 mg by mouth every morning (before breakfast)., Historical Med lansoprazole (Prevacid) [address] capsule Take by mouth every morning (before breakfast). Do not crush or chew., Historical Med losartan (Cozaar) 25 MG tablet Take by mouth., Historical Med !! polyethylene glycol, PEG, 3350 (Miralax) 17 g packet Take by mouth., Historical Med Semaglutide (OZEMPIC, 1 MG/DOSE, SC) Inject 1 mg under the skin 1 (one) time per week., Historical Med !! - Potential duplicate medications found. Please discuss with provider. ALLERGIES Neomycin, Penicillins, Seasonal, and Sulfa antibiotics FAMILY HISTORY No family history on file. SOCIAL HISTORY Social History Socioeconomic History Marital status: Tobacco Use Smoking status: Never Smokeless tobacco: Never Substance and Sexual Activity Alcohol use: Not Currently Comment: SOCIALLY Drug use: Never SCREENINGS PHYSICAL EXAM ED Triage Vitals Temp Heart Rate Resp BP 08/20/23 0627 08/20/23 0627 08/20/23 0627 08/20/23 0627 36.5 C (97.7 F) 79 16 (!) 140/70 SpO2 Temp Source Heart Rate Source Patient Position 08/20/23 0627 08/20/23 0627 08/20/23 0627 08/20/23 0650 100 % Temporal Monitor Sitting BP Location FiO2 (%) 08/20/23 0650 -- Right arm Physical Exam Vitals and nursing note reviewed. Constitutional: General: She is not in acute distress. Appearance: She is well-developed. HENT: Head: Normocephalic and atraumatic. Eyes: Extraocular Movements: Extraocular movements intact. Conjunctiva/sclera: Conjunctivae normal. Pupils: Pupils are equal, round, and reactive to light. Cardiovascular: Rate and Rhythm: Normal rate and regular rhythm. Heart sounds: No murmur heard. Pulmonary: Effort: Pulmonary effort is normal. No respiratory distress. Breath sounds: Normal breath sounds. Abdominal: Palpations: Abdomen is soft. Tenderness: There is no abdominal tenderness. Comments: ABDOMEN: The abdomen is soft and noted tenderness in the LLQ/ midabdomen. There is no guarding, rigidity, rebound tenderness. No right or left CVA tenderness at this time. Patient has no hernias or masses noted. No McBurney's point tenderness. No Mejia sign. Musculoskeletal: General: No swelling. Cervical back: Neck supple. Skin: General: Skin is warm and dry. Capillary Refill: Capillary refill takes less than 2 seconds. Neurological: Mental Status: She is alert. Psychiatric: Mood and Affect: Mood normal. DIAGNOSTIC RESULTS RADIOLOGY (Per Emergency Physician): Interpretation per the Radiologist below, if available at the time of this note: CT abdomen pelvis w contrast Final Result 1. No evidence of acute infectious or inflammatory process in the abdomen or pelvis. 2. 2.7 x 3.2 cm subcapsular low-density hepatic lesion within segment VII, probably a cyst. Report Dictated on Electronically Signed By: Artis Stevens MD Electronically Signed Date/Time: 08/20/2023 9:00 AM EDT LABS: Labs Reviewed COMPREHENSIVE METABOLIC PANEL - Abnormal Result Value SODIUM 137 POTASSIUM 4.1 CHLORIDE 103 CARBON DIOXIDE 24 ANION GAP 11 UREA NITROGEN 24 (*) CREATININE 0.84 GLUCOSE 123 (*) CALCIUM 9.6 AST (SGOT) 26 ALT 23 ALKALINE PHOSPHATASE 76 ALBUMIN 4.2 BILIRUBIN, TOTAL 0.6 TOTAL PROTEIN 7.1 eGFR 72.1 COMPLETE URINALYSIS - Abnormal Color, Urine Light Yellow Clarity, Urine Clear pH, Urine 5.0 Leukocytes, Urine Negative Nitrite, Urine Negative Protein, Urine Negative Glucose, Urine Normal Bilirubin, Urine Negative Ketones, Urine 60 (*) Urobilinogen, Urine Normal Blood, Urine Negative SPECIFIC GRAVITY OF URINE (NUMERIC) 1.031 (*) CBC WITH AUTO DIFFERENTIAL - Normal Auto WBC 6.4 RBC 4.54 Hemoglobin 13.1 Hematocrit 39.6 MCV 87.2 MCH 28.9 MCHC 33.1 RDW 13.2 Platelets 191 MPV 10.6 nRBC 0.0 Neutrophils Relative 66.7 Lymphocytes Relative 23.6 Monocytes Relative 8.3 Eosinophils Relative 0.8 Basophils Relative 0.3 Immature Grans % 0.3 Neutrophils Absolute 4.2 Lymphocytes Absolute 1.5 Monocytes Absolute 0.5 Eosinophils Absolute 0.1 Basophils Absolute 0.0 Immature Grans Absolute 0.0 LIPASE - Normal LIPASE 136 COMPLETE URINALYSIS WITH REFLEX TO CULTURE Narrative: The following orders were created for panel order Urinalysis Complete with reflex to Culture. Procedure Abnormality Status --------- ------ Complete Urinalysis[[id number]] Abnormal Final result Please view results for these tests on the individual orders. All other labs were within normal range or not returned as of this dictation. EMERGENCY DEPARTMENT COURSE and DIFFERENTIAL DIAGNOSIS/MDM: Vitals: Vitals: 08/20/23 0630 08/20/23 0650 08/20/23 0919 08/20/23 1258 BP: 102/75 127/72 129/85 BP Location: Right arm Patient Position: Sitting Lying Sitting Pulse: 74 77 77 Resp: 14 16 16 Temp: TempSrc: SpO2: 100% 100% 100% Weight: 68 kg (150 lb) Height: 1.702 m (5' 7) Medications sodium chloride 0.9 % bolus 1,000 mL (0 mL IntraVENous Stopped 08/20/23 0847) ondansetron (Zofran) injection 4 mg (4 mg IntraVENous Given 08/20/23 0747) iopamidol (Isovue-370) 76 % injection 75 mL (75 mL IntraVENous Given 08/20/23 0836) sodium chloride 0.9 % bolus 1,000 mL (0 mL IntraVENous Stopped 08/20/23 1104) ED care was supervised by Dr. Bell who independently examined and evaluated the patient. Please see their attestation note for further details. In brief, Sheyla Ramirez is a 77 y.o. female who presented to the emergency department for evaluation of concern for abdominal pain, concern for possible obstruction. Nursing notes and medical records reviewed, vital signs reviewed and within normal limits on arrival. Differential considerations included-SBO, large bowel obstruction, ileus, constipation status post anesthesia Initial medical management includes patient was given IV Zofran, IV fluids here in the ED. Other medications considered morphine, Dilaudid, other pain control. Initial workup includes CBC CMP lipase urinalysis ordered. CT abdomen pelvis. Other workup considerations included CT with oral contrast, but secondary to patient's concern for possible obstruction do not think this is clinically warranted or needed. Upon reassessment patient well-appearing in no acute distress. Lab workup results labs show no leukocytosis no signs of anemia. Lipase 136. CMP shows BUN 24, glucose 123 with no other derangement. Complete analysis shows 60 Ketones with no other abnormalities. 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 I discussed with her that we will discuss with surgery who came down and evaluated the patient. Chronic conditions contributing to patients presentation include-history of previous partial sigmoidectomy/previous history of obstructions I have low suspiscion for (effectively ruled ddx out via)-at this time I do a low clinical suspicion for true small bowel obstruction with a transition point requiring NG tube placement I have a low clinical suspicion for electrolyte derangement, OSCAR, severe anemia, other infectious etiologies, or UTI. Social determinants to care: none Consulted-consulted with general surgery who came down and evaluated the patient. They recommended soapsuds enema here in the ED, and adding Colace to patient's regimen of MiraLAX at home. They discussed with the patient observation overnight for continued abdominal exam, further evaluation in the [facility], or to go home. Patient like to go home. They feel this is reasonable, she has follow-up with Dr. Ceballos within the next 1 week. She will follow-up with Dr. Ceballos as an outpatient, return with any worsening symptoms. Critical care-none Diagnosis (mild, severe, acute, chronic, stable, unstable)-abdominal pain unspecified abdominal location, constipation. Disposition-discharged in stable condition with outpatient follow-up. If for any reason symptoms get worsen he should return. Patient started on Colace, MiraLAX. If for any reason subsequently worsenshe return to the ER. She is agreeable with this plan. Alternate disposition considered-admission and observation. Shared decision making-discharged with outpatient follow-up. Prescriptions provided MiraLAX, Colace, Zofran Discussed ED return precautions, recommended consulting their primary doctor or returning to the EDif there are any new or worsening of symptoms, particularly see above Follow-up PCP within 1 week. PROCEDURES: Unless otherwise noted below, none Procedures FINAL IMPRESSION 1. Abdominal pain, unspecified abdominal location 2. Constipation, unspecified constipation type DISPOSITION Discharge 08/20/2023 12:15:05 PM PATIENT REFERRED TO: Julian Kruse MD [address] [place] [address] [address] [phone] Call Call your surgeon in 2 days & schedule follow-up, as needed. DISCHARGE MEDICATIONS: Discharge Medication List as of 08/20/2023 12:15 PM START taking these medications Details docusate sodium (Colace) 100 MG capsule Take 1 capsule (100 mg) by mouth in the morning and 1 capsule (100 mg) in the evening., Starting Urszula 08/20/2023, Until 09/19/2023, Normal !! polyethylene glycol, PEG, 3350 (Miralax) 17 g packet Take 17 g by mouth daily for 3 days., Starting Urszula 08/20/2023, Until 08/23/2023, Normal !! - Potential duplicate medications found. Please discuss with provider. (Comment: Please note this report has been produced using speech recognition software and may contain errors related to that system including errors in grammar, punctuation, and spelling, as well as words and phrases that may be inappropriate. If there are any questions or concerns please feel freeto contact the dictating provider for clarification.) Hoa Calhoun PA-C (electronically signed) Emergency Medicine Provider Hoa Calhoun PA-C 08/20/23 1437 * Keith Bell MD - 08/20/2023 6:20 AM EDT Emergency Department Encounter [facility] EMERGENCY DEPT Patient: Sheyla Ramirez : 1945 Date of Evaluation: 08/20/2023 ED Supervising Physician: Keith Bell MD I personally evaluated Sheyla Ramirez and made/approved the management plan and take responsibility for the patient management. This will serve as my Supervisory note and shared attestation. I did perform a substantive portion of the visit including all aspects of the Medical Decision Making. I wore appropriate PPE for the entirety of this encounter. In brief, Sheyla Ramirez is a 77 y.o. that presents to the emergency department with abdominal discomfort, history of SBOs in the past. Sees Dr Ceballos and had recent EGD a few weeks ago. Is supposed to get aNissen this month Focused exam: abdomen is minimally tender in LLQ, no peritoneal signs Brief ED course/MDM: labs are unremarkable, CT is unremarkable no bowel obstruction. Will DC with followup with Dr Ceballos and bowel regimen with colace and miralax Diagnostics interpreted by me: CT scan(s) CT interpreted by me shows no acute bowel obstruction I personally discussed the patient's management with other clinicians: none All diagnostic, treatment, and disposition decisions were made by myself in conjunction with the GALINDO. For all further details of the patient's emergency department visit, please see their documentation. (Comment: Please note this report has been produced using speech recognition software and may contain errors related to that system including errors in grammar, punctuation, and spelling, as well as words and phrases that may be inappropriate. If there are any questions or concerns please feel freeto contact the dictating provider for clarification.) Keith Bell MD [facility] Keiht Bell MD 08/20/23 0924 documented in this [facility]07-04-2024 Hospital Discharge instructions* Discharge Instructions* Hao Calhoun PA-C - 08/20/2023 12:15 PM EDT You were seen today for abdominal pain, constipation. I sent Colace, and MiraLAX to pharmacy. Return to the ER with any worsening symptoms. Follow-up with Dr. Butt In the medical field, there is always a level of diagnostic uncertainty, even if this uncertainty is low. For this reason, it is important to immediately return to the emergency department if you have any new symptoms, worsening symptoms, change of symptoms, or if you have any other concerns. We would be happy to re- evaluate you. Otherwise, please take your medications as prescribed and follow-upas recommended. documented in this [facility]07-04-2024 Emergency department Note* Kimberley Carson RN - 08/20/2023 6:51 AM EDT Pt came to room from ED triage. Pt states she has a bowel obstruction. Pt states she has a hx of bowel obstructions in the past. Pt is alert and responsive to nurse x4. Breathing is even and unlabored at 16bpm. Pt states she is in no pain at this time, just discomfort. Bed is locked and in lowest position. Bedrails up x2. Call light within reach. Kimberley Carson RN 08/20/23 0652 [id number] Emergency department Note* Hoa Calhoun PA-C - 08/20/2023 6:20 AM EDT EMERGENCY DEPARTMENT ENCOUNTER Pt Name: Sheyla Ramirez Birthdate 1945 Date of evaluation: 08/20/2023 ED Provider: Hoa Calhoun PA-C CHIEF COMPLAINT Chief Complaint Patient presents with Abdominal Pain Pt walked in through triage c/o mid ABD pain since 08/05. Pt states HX of SBO. Pt states nausea but denies vomiting. Pt A&OX4. HISTORY OF PRESENT ILLNESS (Location/Symptom, Timing/Onset, Context/Setting, Quality, Duration, Modifying Factors, Severity) Note limiting factors. I wore appropriate PPE for the entirety of this encounter. HPI Sheyla Ramirez is a 77 y.o. female with A History of Type 2 Diabetes, GERD, Glaucoma, History of Obstruction in the Abdomen, History of Colonic Polyps who presents to the emergency department for further evaluation of concern for abdominal pain, patient states that she has been having mild abdominal pain worse in the left lower quadrant since 08/05 after having EGD done by Dr. Kruse on . 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 She has not had any previous obstruction, and states that she has not passed any gas, and has not had a true formed bowel movement since she had the EGD done. She states that she has been taking MiraLAX, and has had a small amount of stool passed, that occurred 2 days ago, but since then has not passed any stool, and passed no gas. Has associated nausea. No vomiting. No fevers no bodyaches no chills at home. Denies any urinary symptoms. Denies any chest pain or shortness of breat has no lightheadedness, no urinary symptoms. Nursing Notes were reviewed. Limitations to history: None Outside historians: None REVIEW OF SYSTEMS Review of Systems 14 systems reviewed, positives and pertinent negatives as per HPI. All other systems were reviewed and are negative. PAST MEDICAL HISTORY Past Medical History: Diagnosis Date Diabetes mellitus, type 2 (HCC) Gastro-esophageal reflux disease without esophagitis Glaucoma Hypercholesterolemia Other constipation Other intestinal obstruction unspecified as to partial versus complete obstruction (HCC) Other specified symptoms and signs involving the digestive system and abdomen Personal history of colonic polyps SURGICAL HISTORY Past Surgical History: Procedure Laterality Date COLONOSCOPY 2019 EGD (HISTORICAL) 2019 EGD (HISTORICAL) 08/04/2023 SIGMOID COLECTOMY (HISTORICAL) 2010 Laparoscopic sigmoid colectomy for diverticulitis CURRENT MEDICATIONS Discharge Medication List as of 08/20/2023 12:15 PM CONTINUE these medications which have NOT CHANGED Details atorvastatin (Lipitor) 10 MG tablet Take 10 mg by mouth daily., Historical Med brimonidine (AlphaGAN) 0.2 % ophthalmic solution 1 drop 2 times daily., Historical Med glimepiride (Amaryl) 4 MG tablet Take 4 mg by mouth every morning (before breakfast)., Historical Med lansoprazole (Prevacid) [address] capsule Take by mouth every morning (before breakfast). Do not crush or chew., Historical Med losartan (Cozaar) 25 MG tablet Take by mouth., Historical Med !! polyethylene glycol, PEG, 3350 (Miralax) 17 g packet Take by mouth., Historical Med Semaglutide (OZEMPIC, 1 MG/DOSE, SC) Inject 1 mg under the skin 1 (one) time per week., Historical Med !! - Potential duplicate medications found. Please discuss with provider. ALLERGIES Neomycin, Penicillins, Seasonal, and Sulfa antibiotics FAMILY HISTORY No family history on file. SOCIAL HISTORY Social History Socioeconomic History Marital status: Tobacco Use Smoking status: Never Smokeless tobacco: Never Substance and Sexual Activity Alcohol use: Not Currently Comment: SOCIALLY Drug use: Never SCREENINGS PHYSICAL EXAM ED Triage Vitals Temp Heart Rate Resp BP 08/20/23 0627 08/20/23 0627 08/20/23 0627 08/20/23 0627 36.5 C (97.7 F) 79 16 (!) 140/70 SpO2 Temp Source Heart Rate Source Patient Position 08/20/2327 08/20/23 0627 08/20/23 0627 08/20/23 0650 100 % Temporal Monitor Sitting BP Location FiO2 (%) 08/20/23 0650 -- Right arm Physical Exam Vitals and nursing note reviewed. Constitutional: General: She is not in acute distress. Appearance: She is well-developed. HENT: Head: Normocephalic and atraumatic. Eyes: Extraocular Movements: Extraocular movements intact. Conjunctiva/sclera: Conjunctivae normal. Pupils: Pupils are equal, round, and reactive to light. Cardiovascular: Rate and Rhythm: Normal rate and regular rhythm. Heart sounds: No murmur heard. Pulmonary: Effort: Pulmonary effort is normal. No respiratory distress. Breath sounds: Normal breath sounds. Abdominal: Palpations: Abdomen is soft. Tenderness: There is no abdominal tenderness. Comments: ABDOMEN: The abdomen is soft and noted tenderness in the LLQ/ midabdomen. There is no guarding, rigidity, rebound tenderness. No right or left CVA tenderness at this time. Patient has no hernias or masses noted. No McBurney's point tenderness. No Mejia sign. Musculoskeletal: General: No swelling. Cervical back: Neck supple. Skin: General: Skin is warm and dry. Capillary Refill: Capillary refill takes less than 2 seconds. Neurological: Mental Status: She is alert. Psychiatric: Mood and Affect: Mood normal. DIAGNOSTIC RESULTS RADIOLOGY (Per Emergency Physician): Interpretation per the Radiologist below, if available at the time of this note: CT abdomen pelvis w contrast Final Result 1. No evidence of acute infectious or inflammatory process in the abdomen or pelvis. 2. 2.7 x 3.2 cm subcapsular low-density hepatic lesion within segment VII, probably a cyst. Report Dictated on Electronically Signed By: Artis Stevens MD Electronically Signed Date/Time: 08/20/2023 9:00 AM EDT LABS: Labs Reviewed COMPREHENSIVE METABOLIC PANEL - Abnormal Result Value SODIUM 137 POTASSIUM 4.1 CHLORIDE 103 CARBON DIOXIDE 24 ANION GAP 11 UREA NITROGEN 24 (*) CREATININE 0.84 GLUCOSE 123 (*) CALCIUM 9.6 AST (SGOT) 26 ALT 23 ALKALINE PHOSPHATASE 76 ALBUMIN 4.2 BILIRUBIN, TOTAL 0.6 TOTAL PROTEIN 7.1 eGFR 72.1 COMPLETE URINALYSIS - Abnormal Color, Urine Light Yellow Clarity, Urine Clear pH, Urine 5.0 Leukocytes, Urine Negative Nitrite, Urine Negative Protein, Urine Negative Glucose, Urine Normal Bilirubin, Urine Negative Ketones, Urine 60 (*) Urobilinogen, Urine Normal Blood, Urine Negative SPECIFIC GRAVITY OF URINE (NUMERIC) 1.031 (*) CBC WITH AUTO DIFFERENTIAL - Normal Auto WBC 6.4 RBC 4.54 Hemoglobin 13.1 Hematocrit 39.6 MCV 87.2 MCH 28.9 MCHC 33.1 RDW 13.2 Platelets 191 MPV 10.6 nRBC 0.0 Neutrophils Relative 66.7 Lymphocytes Relative 23.6 Monocytes Relative 8.3 Eosinophils Relative 0.8 Basophils Relative 0.3 Immature Grans % 0.3 Neutrophils Absolute 4.2 Lymphocytes Absolute 1.5 Monocytes Absolute 0.5 Eosinophils Absolute 0.1 Basophils Absolute 0.0 Immature Grans Absolute 0.0 LIPASE - Normal LIPASE 136 COMPLETE URINALYSIS WITH REFLEX TO CULTURE Narrative: The following orders were created for panel order Urinalysis Complete with reflex to Culture. Procedure Abnormality Status --------- ------ Complete Urinalysis[[id number]] Abnormal Final result Please view results for these tests on the individual orders. All other labs were within normal range or not returned as of this dictation. EMERGENCY DEPARTMENT COURSE and DIFFERENTIAL DIAGNOSIS/MDM: Vitals: Vitals: 08/20/23 0630 08/20/23 0650 08/20/23 0919 08/20/23 1258 BP: 102/75 127/72 129/85 BP Location: Right arm Patient Position: Sitting Lying Sitting Pulse: 74 77 77 Resp: 14 16 16 Temp: TempSrc: SpO2: 100% 100% 100% Weight: 68 kg (150 lb) Height: 1.702 m (5' 7) Medications sodium chloride 0.9 % bolus 1,000 mL (0 mL IntraVENous Stopped 08/20/23 0847) ondansetron (Zofran) injection 4 mg (4 mg IntraVENous Given 08/20/23 0747) iopamidol (Isovue-370) 76 % injection 75 mL (75 mL IntraVENous Given 08/20/23 0836) sodium chloride 0.9 % bolus 1,000 mL (0 mL IntraVENous Stopped 08/20/23 1104) ED care was supervised by Dr. Bell who independently examined and evaluated the patient. Please see their attestation note for further details. In brief, Sheyla Ramirez is a 77 y.o. female who presented to the emergency department for evaluation of concern for abdominal pain, concern for possible obstruction. Nursing notes and medical records reviewed, vital signs reviewed and within normal limits on arrival. Differential considerations included-SBO, large bowel obstruction, ileus, constipation status post anesthesia Initial medical management includes patient was given IV Zofran, IV fluids here in the ED. Other medications considered morphine, Dilaudid, other pain control. Initial workup includes CBC CMP lipase urinalysis ordered. CT abdomen pelvis. Other workup considerations included CT with oral contrast, but secondary to patient's concern for possible obstruction do not think this is clinically warranted or needed. Upon reassessment patient well-appearing in no acute distress. Lab workup results labs show no leukocytosis no signs of anemia. Lipase 136. CMP shows BUN 24, glucose 123 with no other derangement. Complete analysis shows 60 Ketones with no other abnormalities. 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 I discussed with her that we will discuss with surgery who came down and evaluated the patient. Chronic conditions contributing to patients presentation include-history of previous partial sigmoidectomy/previous history of obstructions I have low suspiscion for (effectively ruled ddx out via)-at this time I do a low clinical suspicion for true small bowel obstruction with a transition point requiring NG tube placement I have a low clinical suspicion for electrolyte derangement, OSCAR, severe anemia, other infectious etiologies, or UTI. Social determinants to care: none Consulted-consulted with general surgery who came down and evaluated the patient. They recommended soapsuds enema here in the ED, and adding Colace to patient's regimen of MiraLAX at home. They discussed with the patient observation overnight for continued abdominal exam, further evaluation in the [facility], or to go home. Patient like to go home. They feel this is reasonable, she has follow-up with Dr. Ceballos within the next 1 week. She will follow-up with Dr. Ceballos as an outpatient, return with any worsening symptoms. Critical care-none Diagnosis (mild, severe, acute, chronic, stable, unstable)-abdominal pain unspecified abdominal location, constipation. Disposition-discharged in stable condition with outpatient follow-up. If for any reason symptoms get worsen he should return. Patient started on Colace, MiraLAX. If for any reason subsequently worsenshe return to the ER. She is agreeable with this plan. Alternate disposition considered-admission and observation. Shared decision making-discharged with outpatient follow-up. Prescriptions provided MiraLAX, Colace, Zofran Discussed ED return precautions, recommended consulting their primary doctor or returning to the EDif there are any new or worsening of symptoms, particularly see above Follow-up PCP within 1 week. PROCEDURES: Unless otherwise noted below, none Procedures FINAL IMPRESSION 1. Abdominal pain, unspecified abdominal location 2. Constipation, unspecified constipation type DISPOSITION Discharge 08/20/2023 12:15:05 PM PATIENT REFERRED TO: Julian Kruse MD [address] [place] [address] [address] [phone] Call Call your surgeon in 2 days & schedule follow-up, as needed. DISCHARGE MEDICATIONS: Discharge Medication List as of 08/20/2023 12:15 PM START taking these medications Details docusate sodium (Colace) 100 MG capsule Take 1 capsule (100 mg) by mouth in the morning and 1 capsule (100 mg) in the evening., Starting Urszula 08/20/2023, Until 09/19/2023, Normal !! polyethylene glycol, PEG, 3350 (Miralax) 17 g packet Take 17 g by mouth daily for 3 days., Starting Urszula 08/20/2023, Until 08/23/2023, Normal !! - Potential duplicate medications found. Please discuss with provider. (Comment: Please note this report has been produced using speech recognition software and may contain errors related to that system including errors in grammar, punctuation, and spelling, as well as words and phrases that may be inappropriate. If there are any questions or concerns please feel freeto contact the dictating provider for clarification.) Hoa Calhoun PA-C (electronically signed) Emergency Medicine Provider Hoa Calhoun PA-C 08/20/23 1437 [id number] Emergency department Note* Keith Bell MD - 08/20/2023 6:20 AM EDT Emergency Department Encounter [facility] EMERGENCY DEPT Patient: Sheyla Ramirez : 1945 Date of Evaluation: 08/20/2023 ED Supervising Physician: Keith Bell MD I personally evaluated Sheyla Ramirez and made/approved the management plan and take responsibility for the patient management. This will serve as my Supervisory note and shared attestation. I did perform a substantive portion of the visit including all aspects of the Medical Decision Making. I wore appropriate PPE for the entirety of this encounter. In brief, Sheyla Ramirez is a 77 y.o. that presents to the emergency department with abdominal discomfort, history of SBOs in the past. Sees Dr Ceballos and had recent EGD a few weeks ago. Is supposed to get aNissen this month Focused exam: abdomen is minimally tender in LLQ, no peritoneal signs Brief ED course/MDM: labs are unremarkable, CT is unremarkable no bowel obstruction. Will DC with followup with Dr Ceballos and bowel regimen with colace and miralax Diagnostics interpreted by me: CT scan(s) CT interpreted by me shows no acute bowel obstruction I personally discussed the patient's management with other clinicians: none All diagnostic, treatment, and disposition decisions were made by myself in conjunction with the GALINDO. For all further details of the patient's emergency department visit, please see their documentation. (Comment: Please note this report has been produced using speech recognition software and may contain errors related to that system including errors in grammar, punctuation, and spelling, as well as words and phrases that may be inappropriate. If there are any questions or concerns please feel freeto contact the dictating provider for clarification.) Keith Bell MD [employer] Keith Bell MD 08/20/23 0975 [employer] Phone: 1(844) 907-753406-18-2024 Note* Addendum Note - SANTI Terrazas CRNA - 08/04/2023 1:04 PM EDT Addendum created 08/04/23 1304 by SANTI Terrazas CRNA Attestation recorded in Intraprocedure, Intraprocedure Attestations filed [id number] NoteAddendum created 08/04/23 1304 by SANTI Terrazas CRNA Attestation recorded in Intraprocedure, Intraprocedure Attestations [facility]06-18-2024 Miscellaneous Notes* Addendum Note - SANTI Terrazas CRNA - 08/04/2023 1:04 PM EDT Addendum created 08/04/23 1304 by SANTI Terrazas CRNA Attestation recorded in Intraprocedure, Intraprocedure Attestations filed * Anesthesia Discharge Note - SANTI Terrazas CRNA - 08/04/2023 11:03 AM EDT Patient: Sheyla Ramirez Procedure Summary Date: 08/04/23 Room / Location: [facility] END[facility] SEC 4 / [facility] Gastroenterology Anesthesia Start: 1039 Anesthesia Stop: 1048 Procedure: ESOPHAGOGASTRODUODENOSCOPY WITH BIOPSY (Esophagus) Diagnosis: Diaphragmatic hernia without obstruction or gangrene Gastro-esophageal reflux disease without esophagitis Providers: Julian Kruse MD Responsible Provider: Anesthesia Type: TIVA ASA Status: 2 Anesthesia Type: TIVA Vitals Value Taken Time BP 108/52 08/04/23 1055 Temp 97.5 08/04/23 1103 Pulse 76 08/04/23 1055 Resp 18 08/04/23 1055 SpO2 95 % 08/04/23 1055 Anesthesia Post Evaluation Patient location during evaluation: PACU Patient participation: complete - patient participated Level of consciousness: awake and alert Pain management: satisfactory to patient Airway patency: patent Dental Injury: no Cardiovascular status: acceptable, blood pressure returned to baseline and hemodynamically stable Respiratory status: acceptable and spontaneous ventilation Hydration status: euvolemic Nausea/Vomiting: controlled No notable events documented. Patient can be discharged once all PACU criteria has been met. documented in this encounterSumma [id number] Procedure anesthesia Narrative* Procedure Summary Procedure Name Responsible Anesthesiologist Anesthesia Start Time Anesthesia Stop Time ESOPHAGOGASTRODUODENOSCOPY W ITH BIOPSY (Esophagus) Lazaro Escobar DO 08/04/23 1039 08/04/23 1048 Events Date Time Event Comment 08/04/2023 1036 1037 In Room 1039 An Start 1039 An Start Data 1040 Start Auxiliary O2 1042 An Induction The patient was reevaluated immediately before moderate or deep sedation use and before anesthesia induction. 1047 an stop data 1048 An Stop 1051 Out of Room Meds Name Total lidocaine PF (Xylocaine-MPF) local injec tion 2 % 40 mg propofol (Diprivan) injection 10 mg/mL 1 00 mg phenylephrine syringe 1 mg/ 10 mL syring e (IV Push for HYPOTENSION) 100 mcg sodium chloride 0.9 % infusion 100 mL * Agents No agents on file. * Blood No blood administrations on file. Lines, Drains, and Airways Type Details Placement Removal Peripheral IV Placement Date: 07/17 10/09; Placement Time: 0942; Catheter Size: 22 G; Orientation: Anterior, Right; Location: Forearm; Site Prep: Chlorhexidine; Local Anesth: None; Inserted by: [place]; Insertion Attempts: 1; Difficult Venous Access? No; Removal Date: 08/04/23; Removal Time: 1106 08/04/23 0942 by Allegra Kelley RN 08/04/23 1106 by Amaya Ernst RN documented in this encounter [facility] [id number] Anesthesiology Postoperative evaluation and management note* Anesthesia Postprocedure Evaluation - Lashanda Ruelas APRN - PAULA - 08/04/2023 11:04 AM EDT Patient: Sheyla Ramirez Procedure Summary Date: 08/04/23 Room / Location: [facility] END[facility] / [facility] G[facility] Anesthesia Start: 1039 Anesthesia Stop: 1048 Procedure: ESOPHAGOGASTRODUODENOSCOPY WITH BIOPSY (Esophagus) Diagnosis: Diaphragmatic hernia without obstruction or gangrene Gastro-esophageal reflux disease without esophagitis Providers: Julian Kruse MD Responsible Provider: Lazaro Escobar DO Anesthesia Type: TIVA ASA Status: 2 Anesthesia Type: TIVA Vitals Value Taken Time BP 107/72 08/04/23 1057 Temp 97.5 08/04/23 1104 Pulse 77 08/04/23 1057 Resp 18 08/04/23 1057 SpO2 95 % 08/04/23 1057 Anesthesia Post Evaluation Patient location during evaluation: PACU Patient participation: complete - patient participated Level of consciousness: awake and alert Pain management: satisfactory to patient Multimodal analgesia pain management approach Airway patency: patent Two or more strategies used to mitigate risk of obstructive sleep apnea Cardiovascular status: acceptable and hemodynamically stable Respiratory status: acceptable Hydration status: acceptable No notable events documented. MIPS #430 PONV Patient did not receive an inhalational anesthetic (XX430) MIPS # 424 Perioperative Temperature Management Anesthesia time was less than 60 minutes (4256F) MIPS #477 Multimodal Pain Management Not emergent case Patient was not administered multimodal pain management (G2149) Patient reports no pain in PACU (G2149) MIPS #404 Anesthesiology Smoking Abstinence The patient is not a current smoker (e.g. cigarette, cigar, pipe, e- cigarette/vaping/marijuana) If no stop here (XX404) I completed my handoff to the receiving clinician during which we: 1. Identified the patient 2. Identified the responsible provider 3. Reviewed the pertinent medical history 4. Discussed the surgical course 5. Reviewed intra-op anesthesia management and issues during anesthesia 6. Set expectations for post-procedure period 7. Allowed opportunity for questions and acknowledgement of understanding. [employer] Phone: 1(786) 577-846306-18-2024 NotePatient: Sheyla Ramirez Procedure Summary Date: 08/04/23 Room / Location: [facility] END[facility] SEC 4 / [facility] Gastroenterology Anesthesia Start: 1039 Anesthesia Stop: 1048 Procedure: ESOPHAGOGASTRODUODENOSCOPY WITH BIOPSY (Esophagus) Diagnosis: Diaphragmatic hernia without obstruction or gangrene Gastro-esophageal reflux disease without esophagitis Providers: Julian Kruse MD Responsible Provider: Lazaro Escobar DO Anesthesia Type: TIVA ASA Status: 2 Anesthesia Type: TIVA Vitals Value Taken Time BP 107/72 08/04/23 1057 Temp 97.5 08/04/23 1104 Pulse 77 08/04/23 1057 Resp 18 08/04/23 1057 SpO2 95 % 08/04/23 1057 Anesthesia Post Evaluation Patient location during evaluation: PACU Patient participation: complete - patient participated Level of consciousness: awake and alert Pain management: satisfactory to patient Multimodal analgesia pain management approach Airway patency: patent Two or more strategies used to mitigate risk of obstructive sleep apnea Cardiovascular status: acceptable and hemodynamically stable Respiratory status: acceptable Hydration status: acceptable No notable events documented. MIPS #430 PONV Patient did not receive an inhalational anesthetic (XX430) MIPS # 424 Perioperative Temperature Management Anesthesia time was less than 60 minutes (4256F) MIPS #477 Multimodal Pain Management Not emergent case Patient was not administered multimodal pain management (G2149) Patient reports no pain in PACU (G2149) MIPS #404 Anesthesiology Smoking Abstinence The patient is not a current smoker (e.g. cigarette, cigar, pipe, e-cigarette/vaping/marijuana) If no stop here (XX404) I completed my handoff to the receiving clinician during which we: 1. Identified the patient 2. Identified the responsible provider 3. Reviewed the pertinent medical history 4. Discussed the surgical course 5. Reviewed intra-op anesthesia management and issues during anesthesia 6. Set expectations for post-procedure period 7. Allowed opportunity for questions and acknowledgement of understanding.[facility]06-18-2024 Surgical operation note* Anesthesia Postprocedure Evaluation - Lashanda Ruelas APRN - ENGINE MAINTENANCE MECHANIC - 08/04/2023 11:04 AM EDT Patient: Sheyla Ramirez Procedure Summary Date: 08/04/23 Room / Location: [facility] ENDO SEC 4 / [facility] Gastroenterology Anesthesia Start: 1039 Anesthesia Stop: 1048 Procedure: ESOPHAGOGASTRODUODENOSCOPY WITH BIOPSY (Esophagus) Diagnosis: Diaphragmatic hernia without obstruction or gangrene Gastro-esophageal reflux disease without esophagitis Providers: Julian Kruse MD Responsible Provider: Lazaro Escobar DO Anesthesia Type: TIVA ASA Status: 2 Anesthesia Type: TIVA Vitals Value Taken Time BP 107/72 08/04/23 1057 Temp 97.5 08/04/23 1104 Pulse 77 08/04/23 1057 Resp 18 08/04/23 1057 SpO2 95 % 08/04/23 1057 Anesthesia Post Evaluation Patient location during evaluation: PACU Patient participation: complete - patient participated Level of consciousness: awake and alert Pain management: satisfactory to patient Multimodal analgesia pain management approach Airway patency: patent Two or more strategies used to mitigate risk of obstructive sleep apnea Cardiovascular status: acceptable and hemodynamically stable Respiratory status: acceptable Hydration status: acceptable No notable events documented. MIPS #430 PONV Patient did not receive an inhalational anesthetic (XX430) MIPS # 424 Perioperative Temperature Management Anesthesia time was less than 60 minutes (4256F) MIPS #477 Multimodal Pain Management Not emergent case Patient was not administered multimodal pain management (G2149) Patient reports no pain in PACU (G2149) MIPS #404 Anesthesiology Smoking Abstinence The patient is not a current smoker (e.g. cigarette, cigar, pipe, e- cigarette/vaping/marijuana) If no stop here (XX404) I completed my handoff to the receiving clinician during which we: 1. Identified the patient 2. Identified the responsible provider 3. Reviewed the pertinent medical history 4. Discussed the surgical course 5. Reviewed intra-op anesthesia management and issues during anesthesia 6. Set expectations for post-procedure period 7. Allowed opportunity for questions and acknowledgement of understanding. * Anesthesia Preprocedure Evaluation - SANTI Terrazas CRNA - 08/04/2023 10:36 AM EDT Patient: Sheyla Ramirez Procedure Information Date/Time: 08/04/23 1100 Procedure: ESOPHAGOGASTRODUODENOSCOPY WITH BIOPSY (Esophagus) - 30 mins Location: [address] ENDO SEC 4 / [facility] G[facility] Providers: Julian Kruse MD Relevant Problems GI (+) Gastroesophageal reflux disease without esophagitis (+) Hiatal hernia Past Medical History: Past Medical History: No date: Diabetes mellitus, type 2 (HCC) No date: Gastro-esophageal reflux disease without esophagitis No date: Glaucoma No date: Hypercholesterolemia No date: Other constipation No date: Other intestinal obstruction unspecified as to partial versus complete obstruction (HCC) No date: Other specified symptoms and signs involving the digestive system and abdomen No date: Personal history of colonic polyps Past Surgical History: Past Surgical History: No date: COLONOSCOPY Comment: 2019 No date: EGD (HISTORICAL) Comment: 2019 2010: SIGMOID COLECTOMY (HISTORICAL) Comment: Laparoscopic sigmoid colectomy for diverticulitis Social History: TOBACCO: reports that she has never smoked. She has never used smokeless tobacco. ETOH: reports that she does not currently use alcohol. Social History Substance and Sexual Activity Drug Use Never Family History: No family history on file. Screening: Postmenopausal Clinical information reviewed: Tobacco Allergies Meds Med Hx Surg Hx OB Status Fam Hx Soc Hx Physical Exam Airway Mallampati: III TM distance: >3 FB Neck ROM: full Mouth Open: limitedendotracheal tube not in place Cardiovascular Dental dentition normal Pulmonary Abdominal Anesthesia Plan patient is NPO appropriate Any family history or previous problems with anesthesia no ASA 2 TIVA Any family history or previous problems with anesthesia no The patient is not a current smoker. Anesthetic plan and risks discussed with patient. AMELIA Screening Labs: No results found for: WBC, HGB, HCT, MCV, PLT No results found for: NA, K, CL, CO2, BUN, CREATININE, GLUCOSE, CALCIUM, PROT, BILIRUBINFL, ALKPHOS, AST, ALT, EGFR, GLOB No echocardiogram results found for the past 14 days No results found for this or any previous visit. documented in this [facility]06-18-2024 Note* Anesthesia Discharge Note - SANTI Terrazas CRNA - 08/04/2023 11:03 AM EDT Patient: Sheyla Ramirez Procedure Summary Date: 08/04/23 Room / Location: [address] ENDO SEC 4 / [facility] Gastroenterology Anesthesia Start: 1039 Anesthesia Stop: 1048 Procedure: ESOPHAGOGASTRODUODENOSCOPY WITH BIOPSY (Esophagus) Diagnosis: Diaphragmatic hernia without obstruction or gangrene Gastro-esophageal reflux disease without esophagitis Providers: Julian Kruse MD Responsible Provider: Anesthesia Type: TIVA ASA Status: 2 Anesthesia Type: TIVA Vitals Value Taken Time BP 108/52 08/04/23 1055 Temp 97.5 08/04/23 1103 Pulse 76 08/04/23 1055 Resp 18 08/04/23 1055 SpO2 95 % 08/04/23 1055 Anesthesia Post Evaluation Patient location during evaluation: PACU Patient participation: complete - patient participated Level of consciousness: awake and alert Pain management: satisfactory to patient Airway patency: patent Dental Injury: no Cardiovascular status: acceptable, blood pressure returned to baseline and hemodynamically stable Respiratory status: acceptable and spontaneous ventilation Hydration status: euvolemic Nausea/Vomiting: controlled No notable events documented. Patient can be discharged once all PACU criteria has been met. [id number] NotePatient: Sheyla Ramirez Procedure Summary Date: 08/04/23 Room / Location: [facility] ENDO SEC 4 / [facility] Gastroenterology Anesthesia Start: 1039 Anesthesia Stop: 1048 Procedure: ESOPHAGOGASTRODUODENOSCOPY WITH BIOPSY (Esophagus) Diagnosis: Diaphragmatic hernia without obstruction or gangrene Gastro-esophageal reflux disease without esophagitis Providers: Julian Kruse MD Responsible Provider: Anesthesia Type: TIVA ASA Status: 2 Anesthesia Type: TIVA Vitals Value Taken Time BP 108/52 08/04/23 1055 Temp 97.5 08/04/23 1103 Pulse 76 08/04/23 1055 Resp 18 08/04/23 1055 SpO2 95 % 08/04/23 1055 Anesthesia Post Evaluation Patient location during evaluation: PACU Patient participation: complete - patient participated Level of consciousness: awake and alert Pain management: satisfactory to patient Airway patency: patent Dental Injury: no Cardiovascular status: acceptable, blood pressure returned to baseline and hemodynamically stable Respiratory status: acceptable and spontaneous ventilation Hydration status: euvolemic Nausea/Vomiting: controlled No notable events documented. Patient can be discharged once all PACU criteria has been met.[facility]06-18-2024 Hospital Discharge instructions* Discharge Instructions* Amaya Ernst RN - 08/04/2023 10:52 AM EDT Upper GI Endoscopy: What to expect at home ACTIVITY: DO NOT DRIVE, OPERATE MACHINERY, OR DRINK ANY ALCOHOL TODAY. Avoid making critical decisions, signing legal documents, or performing any activity that requires alertness for the rest of the day. You may be bloated or have gas pains since air was introduced into the stomach for the procedure. You may need to pass the gas throughout the day. You may experience a mild sore throat. You may use an hkdj-ysr-jixsyjh chloraseptic spray, gargle with warm salt water, or use throat lozenges. Notify your physician if this feeling lasts more than 48 hours. Rest the remainder of the day. You may resume normal activity tomorrow. You may return to work tomorrow. DIET: You may resume a normal diet unless notified or recommended by your physician. You may be eager to eat a large meal after fasting, but it is a good idea to start with light mealsand ease into solid foods the first day. (*) If your stomach is upset, try clear liquids and bland, low-fat foods like plain toast or rice. Drink plenty of fluids for the first 24 hours (unless your physician states otherwise). MEDICATION: Resume your normal home medications unless notified or recommended by your physician. If you take blood thinners (such as Coumadin, Eliquis, Plavix, Aspirin, etc.) or anti-inflammatory medications (Advil, Motrin, Aleve, etc.), ask your physician when you may resume these medications. FOLLOW-UP APPOINTMENT: Follow up with or call your physician as needed. When to call for help: Call your doctor IMMEDIATELY or seek medical care if you experience: Severe pain or vomiting Coughing up more than a teaspoon of blood You pass a large amount of tar-like stools Your belly is swollen and firm with severe pain A fever greater than 101 degrees Redness or swelling of arm from the IV site for more than 48 hours Sudden onset of chest pain or shortness of breath If you become extremely dizzy or pass out (lose consciousness) IF YOU ARE UNABLE TO REACH YOUR PHYSICIAN GO TO NEAREST EMERGENCY DEPARTMENT documented in this [facility]06-18-2024 Anesthesiology Preoperative evaluation and management note* Anesthesia Preprocedure Evaluation - Lashanda Ruelas APRN - ENGINE MAINTENANCE MECHANIC - 08/04/2023 10:36 AM EDT Patient: Sheyla Ramirez Procedure Information Date/Time: 08/04/23 1100 Procedure: ESOPHAGOGASTRODUODENOSCOPY WITH BIOPSY (Esophagus) - 30 mins Location: [facility] ENDO SEC 4 / [facility] Gastroenterology Providers: Julian Kruse MD Relevant Problems GI (+) Gastroesophageal reflux disease without esophagitis (+) Hiatal hernia Past Medical History: Past Medical History: No date: Diabetes mellitus, type 2 (HCC) No date: Gastro-esophageal reflux disease without esophagitis No date: Glaucoma No date: Hypercholesterolemia No date: Other constipation No date: Other intestinal obstruction unspecified as to partial versus complete obstruction (HCC) No date: Other specified symptoms and signs involving the digestive system and abdomen No date: Personal history of colonic polyps Past Surgical History: Past Surgical History: No date: COLONOSCOPY Comment: 2019 No date: EGD (HISTORICAL) Comment: 2019 2011: SIGMOID COLECTOMY (HISTORICAL) Comment: Laparoscopic sigmoid colectomy for diverticulitis Social History: TOBACCO: reports that she has never smoked. She has never used smokeless tobacco. ETOH: reports that she does not currently use alcohol. Social History Substance and Sexual Activity Drug Use Never Family History: No family history on file. Screening: Postmenopausal Clinical information reviewed: Tobacco Allergies Meds Med Hx Surg Hx OB Status Fam Hx Soc Hx Physical Exam Airway Mallampati: III TM distance: >3 FB Neck ROM: full Mouth Open: limitedendotracheal tube not in place Cardiovascular Dental dentition normal Pulmonary Abdominal Anesthesia Plan patient is NPO appropriate Any family history or previous problems with anesthesia no ASA 2 TIVA Any family history or previous problems with anesthesia no The patient is not a current smoker. Anesthetic plan and risks discussed with patient. AMELIA Screening Labs: No results found for: WBC, HGB, HCT, MCV, PLT No results found for: NA, K, CL, CO2, BUN, CREATININE, GLUCOSE, CALCIUM, PROT, BILIRUBINFL, ALKPHOS, AST, ALT, EGFR, GLOB No echocardiogram results found for the past 14 days No results found for this or any previous visit. [facility]06-18-2024 NotePatient: Sheyla Gaytanmellissa Procedure Information Date/Time: 08/04/23 1100 Procedure: ESOPHAGOGASTRODUODENOSCOPY WITH BIOPSY (Esophagus) - 30 mins Location: [facility] / [facility] Providers: Julian Kruse MD Relevant Problems GI (+) Gastroesophageal reflux disease without esophagitis (+) Hiatal hernia Past Medical History: Past Medical History: No date: Diabetes mellitus, type 2 (HCC) No date: Gastro-esophageal reflux disease without esophagitis No date: Glaucoma No date: Hypercholesterolemia No date: Other constipation No date: Other intestinal obstruction unspecified as to partial versus complete obstruction (HCC) No date: Other specified symptoms and signs involving the digestive system and abdomen No date: Personal history of colonic polyps Past Surgical History: Past Surgical History: No date: COLONOSCOPY Comment: 2019 No date: EGD (HISTORICAL) Comment: 2019 2010: SIGMOID COLECTOMY (HISTORICAL) Comment: Laparoscopic sigmoid colectomy for diverticulitis Social History: TOBACCO: reports that she has never smoked. She has never used smokeless tobacco. ETOH: reports that she does not currently use alcohol. Social History Substance and Sexual Activity Drug Use Never Family History: No family history on file. Screening: Postmenopausal Clinical information reviewed: Tobacco Allergies Meds Med Hx Surg Hx OB Status Fam Hx Soc Hx Physical Exam Airway Mallampati: III TM distance: >3 FB Neck ROM: full Mouth Open: limitedendotracheal tube not in place Cardiovascular Dental dentition normal Pulmonary Abdominal Anesthesia Plan patient is NPO appropriate Any family history or previous problems with anesthesia no ASA 2 TIVA Any family history or previous problems with anesthesia no The patient is not a current smoker. Anesthetic plan and risks discussed with patient. AMELIA Screening Labs: No results found for: WBC, HGB, HCT, MCV, PLT No results found for: NA, K, CL, CO2, BUN, CREATININE, GLUCOSE, CALCIUM, PROT, BILIRUBINFL, ALKPHOS, AST, ALT, EGFR, GLOB No echocardiogram results found for the past 14 days No results found for this or any previous visit.[facility] 08-04-2023 Note* Op Note - Julian Kruse MD - 08/04/2023 10:32 AM EDT Endoscopy Center- [facility] Patient Name: Sheyla Ramirez Procedure Date: 08/04/2023 10:32 AM Gender: Female Date of : 1945 Age: 77 Admit Type: Outpatient Note Status: Finalized Endoscopist: Julian Kruse MD, [id number] Procedure: Upper GI endoscopy Indications: Gastro-esophageal reflux disease, Hiatal hernia Findings: Mild inflammation was found in the gastric antrum. This was biopsied with a cold forceps for Helicobacter pylori testing. Verification of patient identification for the specimen was done. A small hiatal hernia was present. Esophagitis with no bleeding was found. Impression: - Gastritis. Biopsied. - Small hiatal hernia. - Reflux esophagitis with no bleeding. Recommendation: - Patient has a contact number available for emergencies. The signs and symptoms of potential delayed complications were discussed with the patient. Return to normal activities tomorrow. Written discharge instructions were provided to the patient. - Resume previous diet. - Continue present medications. - Await pathology results. Referring MD: Lena Thorne Medicines: Monitored Anesthesia Care Procedure: Pre-Anesthesia Assessment: - The anesthesia plan was to use monitored anesthesia care (MAC). After obtaining informed consent, the endoscope was passed under direct vision. Throughout the procedure, the patient's blood pressure, pulse, and oxygen saturations were monitored continuously. The Endoscope was introduced through the mouth, and advanced to the second part of duodenum. The upper GI endoscopy was accomplished without difficulty. The patient tolerated the procedure well. Complications: No immediate complications. Procedure Code(s): --- Professional --- 61556, Esophagogastroduodenoscopy, flexible, transoral; with biopsy, single or multiple --- Technical --- 26658, Esophagogastroduodenoscopy, flexible, transoral; with biopsy, single or multiple Diagnosis Code(s): --- Professional --- K29.70, Gastritis, unspecified, without bleeding K44.9, Diaphragmatic hernia without obstruction or gangrene K21.00, Gastro-esophageal reflux disease with esophagitis, without bleeding --- Technical --- K29.70, Gastritis, unspecified, without bleeding K44.9, Diaphragmatic hernia without obstruction or gangrene K21.00, Gastro-esophageal reflux disease with esophagitis, without bleeding CPT copyright 2022 [employer]. All rights reserved. The codes documented in this report are preliminary and upon assembler clip on sunglasses review may be revised to meet current compliance requirements. Attending Participation: I personally performed the entire procedure. Julian Kruse MD 08/04/2023 10:53:03 AM This report has been signed electronically. Number of Addenda: 0 Note Initiated On: 08/04/2023 10:32 AM [facility] [id number] Note* Op Note - Julian Kruse MD - 08/04/2023 10:32 AM EDT Endoscopy Center- [facility] Patient Name: Sheyla Ramirez Procedure Date: 08/04/2023 10:32 AM Gender: Female Date of : 1945 Age: 77 Admit Type: Outpatient Note Status: Finalized Endoscopist: Julian Kruse MD, [id number] Procedure: Upper GI endoscopy Indications: Gastro-esophageal reflux disease, Hiatal hernia Findings: Mild inflammation was found in the gastric antrum. This was biopsied with a cold forceps for Helicobacter pylori testing. Verification of patient identification for the specimen was done. A small hiatal hernia was present. Esophagitis with no bleeding was found. Impression: - Gastritis. Biopsied. - Small hiatal hernia. - Reflux esophagitis with no bleeding. Recommendation: - Patient has a contact number available for emergencies. The signs and symptoms of potential delayed complications were discussed with the patient. Return to normal activities tomorrow. Written discharge instructions were provided to the patient. - Resume previous diet. - Continue present medications. - Await pathology results. Referring MD: Lena Thorne Medicines: Monitored Anesthesia Care Procedure: Pre-Anesthesia Assessment: - The anesthesia plan was to use monitored anesthesia care (MAC). After obtaining informed consent, the endoscope was passed under direct vision. Throughout the procedure, the patient's blood pressure, pulse, and oxygen saturations were monitored continuously. The Endoscope was introduced through the mouth, and advanced to the second part of duodenum. The upper GI endoscopy was accomplished without difficulty. The patient tolerated the procedure well. Complications: No immediate complications. Procedure Code(s): --- Professional --- 74582, Esophagogastroduodenoscopy, flexible, transoral; with biopsy, single or multiple --- Technical --- 59438, Esophagogastroduodenoscopy, flexible, transoral; with biopsy, single or multiple Diagnosis Code(s): --- Professional --- K29.70, Gastritis, unspecified, without bleeding K44.9, Diaphragmatic hernia without obstruction or gangrene K21.00, Gastro-esophageal reflux disease with esophagitis, without bleeding --- Technical --- K29.70, Gastritis, unspecified, without bleeding K44.9, Diaphragmatic hernia without obstruction or gangrene K21.00, Gastro-esophageal reflux disease with esophagitis, without bleeding CPT copyright 2021 [employer]. All rights reserved. The codes documented in this report are preliminary and upon assembler clip on sunglasses review may be revised to meet current compliance requirements. Attending Participation: I personally performed the entire procedure. Julian Kruse MD 08/04/2023 10:53:03 AM This report has been signed electronically. Number of Addenda: 0 Note Initiated On: 08/04/2023 10:32 AM [facility]18[facility] Name: Sheyla Ramirez Procedure Date: 08/04/2023 10:32 AM Gender: Female Date of : 1945 Age: 77 Admit Type: Outpatient Note Status: Finalized Endoscopist: Julian Kruse MD, [id number] Procedure: Upper GI endoscopy Indications: Gastro-esophageal reflux disease, Hiatal hernia Findings: Mild inflammation was found in the gastric antrum. This was biopsied with a cold forceps for Helicobacter pylori testing. Verification of patient identification for the specimen was done. A small hiatal hernia was present. Esophagitis with no bleeding was found. Impression: - Gastritis. Biopsied. - Small hiatal hernia. - Reflux esophagitis with no bleeding. Recommendation: - Patient has a contact number available for emergencies. The signs and symptoms of potential delayed complications were discussed with the patient. Return to normal activities tomorrow. Written discharge instructions were provided to the patient. - Resume previous diet. - Continue present medications. - Await pathology results. Referring MD: Lena Thorne Medicines: Monitored Anesthesia Care Procedure: Pre-Anesthesia Assessment: - The anesthesia plan was to use monitored anesthesia care (MAC). After obtaining informed consent, the endoscope was passed under direct vision. Throughout the procedure, the patient's blood pressure, pulse, and oxygen saturations were monitored continuously. The Endoscope was introduced through the mouth, and advanced to the second part of duodenum. The upper GI endoscopy was accomplished without difficulty. The patient tolerated the procedure well. Complications: No immediate complications. Procedure Code(s): --- Professional --- 59868, Esophagogastroduodenoscopy, flexible, transoral; with biopsy, single or multiple --- Technical --- 08658, Esophagogastroduodenoscopy, flexible, transoral; with biopsy, single or multiple Diagnosis Code(s): --- Professional --- K29.70, Gastritis, unspecified, without bleeding K44.9, Diaphragmatic hernia without obstruction or gangrene K21.00, Gastro-esophageal reflux disease with esophagitis, without bleeding --- Technical --- K29.70, Gastritis, unspecified, without bleeding K44.9, Diaphragmatic hernia without obstruction or gangrene K21.00, Gastro-esophageal reflux disease with esophagitis, without bleeding CPT copyright 2021 [employer]. All rights reserved. The codes documented in this report are preliminary and upon assembler clip on sunglasses review may be revised to meet current compliance requirements. Attending Participation: I personally performed the entire procedure. Julian Kruse MD 08/04/2023 10:53:03 AM This report has been signed electronically. Number of Addenda: 0 Note Initiated On: 08/04/2023 10:32 [facility]06-18-2024 Miscellaneous Notes* Op Note - Julian Kruse MD - 08/04/2023 10:32 AM [facility] Name: Sheyla Ramirez Procedure Date: 08/04/2023 10:32 AM Gender: Female Date of : 1945 Age: 77 Admit Type: Outpatient Note Status: Finalized Endoscopist: Julian Kruse MD, [id number] Procedure: Upper GI endoscopy Indications: Gastro-esophageal reflux disease, Hiatal hernia Findings: Mild inflammation was found in the gastric antrum. This was biopsied with a cold forceps for Helicobacter pylori testing. Verification of patient identification for the specimen was done. A small hiatal hernia was present. Esophagitis with no bleeding was found. Impression: - Gastritis. Biopsied. - Small hiatal hernia. - Reflux esophagitis with no bleeding. Recommendation: - Patient has a contact number available for emergencies. The signs and symptoms of potential delayed complications were discussed with the patient. Return to normal activities tomorrow. Written discharge instructions were provided to the patient. - Resume previous diet. - Continue present medications. - Await pathology results. Referring MD: Lena Thorne Medicines: Monitored Anesthesia Care Procedure: Pre-Anesthesia Assessment: - The anesthesia plan was to use monitored anesthesia care (MAC). After obtaining informed consent, the endoscope was passed under direct vision. Throughout the procedure, the patient's blood pressure, pulse, and oxygen saturations were monitored continuously. The Endoscope was introduced through the mouth, and advanced to the second part of duodenum. The upper GI endoscopy was accomplished without difficulty. The patient tolerated the procedure well. Complications: No immediate complications. Procedure Code(s): --- Professional --- 04560, Esophagogastroduodenoscopy, flexible, transoral; with biopsy, single or multiple --- Technical --- 61100, Esophagogastroduodenoscopy, flexible, transoral; with biopsy, single or multiple Diagnosis Code(s): --- Professional --- K29.70, Gastritis, unspecified, without bleeding K44.9, Diaphragmatic hernia without obstruction or gangrene K21.00, Gastro-esophageal reflux disease with esophagitis, without bleeding --- Technical --- K29.70, Gastritis, unspecified, without bleeding K44.9, Diaphragmatic hernia without obstruction or gangrene K21.00, Gastro-esophageal reflux disease with esophagitis, without bleeding CPT copyright 2021 [employer]. All rights reserved. The codes documented in this report are preliminary and upon assembler clip on sunglasses review may be revised to meet current compliance requirements. Attending Participation: I personally performed the entire procedure. Julian Kruse MD 08/04/2023 10:53:03 AM This report has been signed electronically. Number of Addenda: 0 Note Initiated On: 08/04/2023 10:32 AM documented in this [facility]06-17-2024 History and physical note* Julian Kruse MD - 08/03/2023 6:23 PM EDT Images from the original note were not included. [facility] - Surgery [facility] Physicians Surgery PATIENT NAME: Sheyla Ramirez DATE OF : 1945 ADMISSION DATE: 08/04/2023 9:24 AM TODAY'S DATE: 08/04/2023 HISTORY OF PRESENT ILLNESS: The patient is a 77 y.o. female who presents for GERD/HH. I thoroughly reviewed the patient's medical history, family history, social history and review of systems with the patient today in the office. Please see medical record for pertinent positives. Past Medical History: Past Medical History: Diagnosis Date Diabetes mellitus, type 2 (HCC) Gastro-esophageal reflux disease without esophagitis Glaucoma Hypercholesterolemia Other constipation Other intestinal obstruction unspecified as to partial versus complete obstruction (HCC) Other specified symptoms and signs involving the digestive system and abdomen Personal history of colonic polyps Past Surgical History: Past Surgical History: Procedure Laterality Date COLONOSCOPY 2019 EGD (HISTORICAL) 2019 SIGMOID COLECTOMY (HISTORICAL) 2010 Laparoscopic sigmoid colectomy for diverticulitis Current Medications: Current Facility-Administered Medications Medication Dose Route Frequency Provider Last Rate Last Admin sodium chloride 0.9 % infusion 100 mL/hr IntraVENous Continuous Whitney Ball PA-C Prior to Admission medications Medication Sig Start Date End Date Taking? Authorizing Provider atorvastatin (Lipitor) 10 MG tablet Take 10 mg by mouth daily. Historical Provider, brimonidine (AlphaGAN) 0.2 % ophthalmic solution 1 drop 2 times daily. Historical Provider, glimepiride (Amaryl) 4 MG tablet Take 4 mg by mouth every morning (before breakfast). Historical Provider, lansoprazole (Prevacid) [address] capsule Take by mouth every morning (before breakfast). Do not crush or chew. Historical Provider, losartan (Cozaar) 25 MG tablet Take by mouth. Historical Provider, polyethylene glycol, PEG, 3350 (Miralax) 17 g packet Take by mouth. Historical Provider, Allergies: Allergies Allergen Reactions Neomycin Hives Penicillins Hives Seasonal Runny nose Sulfa Antibiotics Social History: Social History Socioeconomic History Marital status: Spouse name: Not on file Number of children: Not on file Years of education: Not on file Highest education level: Not on file Occupational History Not on file Tobacco Use Smoking status: Never Smokeless tobacco: Never Substance and Sexual Activity Alcohol use: Not Currently Comment: SOCIALLY Drug use: Never Sexual activity: Not on file Other Topics Concern Not on file Social History Narrative Not on file Social Determinants of Health Financial Resource Strain: Not on file Food Insecurity: Not on file Transportation Needs: Not on file Physical Activity: Not on file Stress: Not on file Social Connections: Not on file Intimate Partner Violence: Not on file Housing Stability: Not on file Family History: No family history on file. REVIEW OF SYSTEMS: CONSTITUTIONAL: Negative for fatigue, and unexpected weight change RESPIRATORY: Negative for cough, SOB, and wheezing CARDIOVASCULAR: Negative for chest pains and palpatations GASTROINTESTINAL: see HPI HEMATOLOGIC/LYMPHATIC: Negative for adenopathy. Does not bruise/bleed easily. NEUROLOGICAL: Negative for seizures and syncope * All other ROS reviewed see HPI for pertinent positives and negatives. PHYSICAL EXAM: VITALS: BP (!) 127/95 Pulse 82 Temp 36.2 C (97.1 F) (Temporal) Resp 18 Ht 5' 7 (1.702 m) Wt 153 lb (69.4 kg) SpO2 99% BMI 23.96 kg/m GENERAL: Oriented to person, place, and time. Appears well nourished. No distress ENT: Normocepalic,atraumatic, without obvious abnormality NECK: supple, symmetrical, trachea midline LUNGS: Resp effort easy and unlabored, breath sounds normal CARDIOVASCULAR: RRR, No murmur ABDOMEN: Soft, non-tender, no open wounds. MUSCULOSKELETAL: Normal range of motion, ambulatory without assistance NEUROLOGIC: No focal neurologic deficits IMPRESSION/RECOMMENDATIONS: GERD/HH EGD Patient counseled on risks, benefits, and alternatives of treatment plan at length. Patient states an understanding and willingness to proceed with plan. [id number] [facility] Medical [facility] - Surgery [facility] Physicians Surgery PATIENT NAME: Sheyla Ramirez DATE OF : 1945 ADMISSION DATE: 08/04/2023 9:24 AM TODAY'S DATE: 08/04/2023 HISTORY OF PRESENT ILLNESS: The patient is a 77 y.o. female who presents for GERD/HH. I thoroughly reviewed the patient's medical history, family history, social history and review of systems with the patient today in the office. Please see medical record for pertinent positives. Past Medical History: Past Medical History: Diagnosis Date Diabetes mellitus, type 2 (HCC) Gastro-esophageal reflux disease without esophagitis Glaucoma Hypercholesterolemia Other constipation Other intestinal obstruction unspecified as to partial versus complete obstruction (HCC) Other specified symptoms and signs involving the digestive system and abdomen Personal history of colonic polyps Past Surgical History: Past Surgical History: Procedure Laterality Date COLONOSCOPY 2019 EGD (HISTORICAL) 2019 SIGMOID COLECTOMY (HISTORICAL) 2010 Laparoscopic sigmoid colectomy for diverticulitis Current Medications: Current Facility-Administered Medications Medication Dose Route Frequency Provider Last Rate Last Admin sodium chloride 0.9 % infusion 100 mL/hr IntraVENous Continuous Whitney Ball PA-C Prior to Admission medications Medication Sig Start Date End Date Taking? Authorizing Provider atorvastatin (Lipitor) 10 MG tablet Take 10 mg by mouth daily. Historical Provider, brimonidine (AlphaGAN) 0.2 % ophthalmic solution 1 drop 2 times daily. Historical Provider, glimepiride (Amaryl) 4 MG tablet Take 4 mg by mouth every morning (before breakfast). Historical Provider, lansoprazole (Prevacid) [address] capsule Take by mouth every morning (before breakfast). Do not crush or chew. Historical Provider, losartan (Cozaar) 25 MG tablet Take by mouth. Historical Provider, polyethylene glycol, PEG, 3350 (Miralax) 17 g packet Take by mouth. Historical Provider, Allergies: Allergies Allergen Reactions Neomycin Hives Penicillins Hives Seasonal Runny nose Sulfa Antibiotics Social History: Social History Socioeconomic History Marital status: Spouse name: Not on file Number of children: Not on file Years of education: Not on file Highest education level: Not on file Occupational History Not on file Tobacco Use Smoking status: Never Smokeless tobacco: Never Substance and Sexual Activity Alcohol use: Not Currently Comment: SOCIALLY Drug use: Never Sexual activity: Not on file Other Topics Concern Not on file Social History Narrative Not on file Social Determinants of Health Financial Resource Strain: Not on file Food Insecurity: Not on file Transportation Needs: Not on file Physical Activity: Not on file Stress: Not on file Social Connections: Not on file Intimate Partner Violence: Not on file Housing Stability: Not on file Family History: No family history on file. REVIEW OF SYSTEMS: CONSTITUTIONAL: Negative for fatigue, and unexpected weight change RESPIRATORY: Negative for cough, SOB, and wheezing CARDIOVASCULAR: Negative for chest pains and palpatations GASTROINTESTINAL: see HPI HEMATOLOGIC/LYMPHATIC: Negative for adenopathy. Does not bruise/bleed easily. NEUROLOGICAL: Negative for seizures and syncope * All other ROS reviewed see HPI for pertinent positives and negatives. PHYSICAL EXAM: VITALS: BP (!) 127/95 Pulse 82 Temp 36.2 ?C (97.1 ?F) (Temporal) Resp 18 Ht 5' 7 (1.702 m) Wt 153 lb (69.4 kg) SpO2 99% BMI 23.96 kg/m? GENERAL: Oriented to person, place, and time. Appears well nourished. No distress ENT: Normocepalic,atraumatic, without obvious abnormality NECK: supple, symmetrical, trachea midline LUNGS: Resp effort easy and unlabored, breath sounds normal CARDIOVASCULAR: RRR, No murmur ABDOMEN: Soft, non-tender, no open wounds. MUSCULOSKELETAL: Normal range of motion, ambulatory without assistance NEUROLOGIC: No focal neurologic deficits IMPRESSION/RECOMMENDATIONS: GERD/HH EGD Patient counseled on risks, benefits, and alternatives of treatment plan at length. Patient states an understanding and willingness to proceed with plan. [facility]06-17-2024 History and physical note* Julian Kruse MD - 08/03/2023 6:23 PM EDT Images from the original note were not included. [facility] - Surgery [facility] Physicians Surgery PATIENT NAME: Sheyla Ramirez DATE OF : 1945 ADMISSION DATE: 08/04/2023 9:24 AM TODAY'S DATE: 08/04/2023 HISTORY OF PRESENT ILLNESS: The patient is a 77 y.o. female who presents for GERD/HH. I thoroughly reviewed the patient's medical history, family history, social history and review of systems with the patient today in the office. Please see medical record for pertinent positives. Past Medical History: Past Medical History: Diagnosis Date Diabetes mellitus, type 2 (HCC) Gastro-esophageal reflux disease without esophagitis Glaucoma Hypercholesterolemia Other constipation Other intestinal obstruction unspecified as to partial versus complete obstruction (HCC) Other specified symptoms and signs involving the digestive system and abdomen Personal history of colonic polyps Past Surgical History: Past Surgical History: Procedure Laterality Date COLONOSCOPY 2019 EGD (HISTORICAL) 2019 SIGMOID COLECTOMY (HISTORICAL) 2010 Laparoscopic sigmoid colectomy for diverticulitis Current Medications: Current Facility-Administered Medications Medication Dose Route Frequency Provider Last Rate Last Admin sodium chloride 0.9 % infusion 100 mL/hr IntraVENous Continuous Whitney Ball PA-C Prior to Admission medications Medication Sig Start Date End Date Taking? Authorizing Provider atorvastatin (Lipitor) 10 MG tablet Take 10 mg by mouth daily. Historical Provider, brimonidine (AlphaGAN) 0.2 % ophthalmic solution 1 drop 2 times daily. Historical Provider, glimepiride (Amaryl) 4 MG tablet Take 4 mg by mouth every morning (before breakfast). Historical Provider, lansoprazole (Prevacid) [address] capsule Take by mouth every morning (before breakfast). Do not crush or chew. Historical Provider, losartan (Cozaar) 25 MG tablet Take by mouth. Historical Provider, polyethylene glycol, PEG, 3350 (Miralax) 17 g packet Take by mouth. Historical Provider, Allergies: Allergies Allergen Reactions Neomycin Hives Penicillins Hives Seasonal Runny nose Sulfa Antibiotics Social History: Social History Socioeconomic History Marital status: Spouse name: Not on file Number of children: Not on file Years of education: Not on file Highest education level: Not on file Occupational History Not on file Tobacco Use Smoking status: Never Smokeless tobacco: Never Substance and Sexual Activity Alcohol use: Not Currently Comment: SOCIALLY Drug use: Never Sexual activity: Not on file Other Topics Concern Not on file Social History Narrative Not on file Social Determinants of Health Financial Resource Strain: Not on file Food Insecurity: Not on file Transportation Needs: Not on file Physical Activity: Not on file Stress: Not on file Social Connections: Not on file Intimate Partner Violence: Not on file Housing Stability: Not on file Family History: No family history on file. REVIEW OF SYSTEMS: CONSTITUTIONAL: Negative for fatigue, and unexpected weight change RESPIRATORY: Negative for cough, SOB, and wheezing CARDIOVASCULAR: Negative for chest pains and palpatations GASTROINTESTINAL: see HPI HEMATOLOGIC/LYMPHATIC: Negative for adenopathy. Does not bruise/bleed easily. NEUROLOGICAL: Negative for seizures and syncope * All other ROS reviewed see HPI for pertinent positives and negatives. PHYSICAL EXAM: VITALS: BP (!) 127/95 Pulse 82 Temp 36.2 C (97.1 F) (Temporal) Resp 18 Ht 5' 7 (1.702 m) Wt 153 lb (69.4 kg) SpO2 99% BMI 23.96 kg/m GENERAL: Oriented to person, place, and time. Appears well nourished. No distress ENT: Normocepalic,atraumatic, without obvious abnormality NECK: supple, symmetrical, trachea midline LUNGS: Resp effort easy and unlabored, breath sounds normal CARDIOVASCULAR: RRR, No murmur ABDOMEN: Soft, non-tender, no open wounds. MUSCULOSKELETAL: Normal range of motion, ambulatory without assistance NEUROLOGIC: No focal neurologic deficits IMPRESSION/RECOMMENDATIONS: GERD/HH EGD Patient counseled on risks, benefits, and alternatives of treatment plan at length. Patient states an understanding and willingness to proceed with plan. documented in this encounterSMiami [facility] [id number] Telephone encounter Note* Telephone Encounter - Niesha Garcia - 07/08/2023 4:02 PM EDT Spoke with pt today about new surgery date of 09/08 @ 7:00. She verbalized understanding and also stated she has an appt w/ her winterizer on 08/27. (Cardiac clearance still pending til then) [id number] Miscellaneous Notes* Telephone Encounter - Niesha Garcia - 07/08/2023 4:02 PM EDT Spoke with pt today about new surgery date of 09/08 @ 7:00. She verbalized understanding and also stated she has an appt w/ her winterizer on 08/27. (Cardiac clearance still pending til then) * Telephone Encounter - Niesha Garcia - 07/02/2023 2:28 PM EDT I faxed the cardiac clearance request today. I will keep it in a folder here of pending requests. Ican update the Cced message and route off once received. Unless there is a different protocol for keeping track * Telephone Encounter - Whitney Ball PA-C - 07/02/2023 2:08 PM EDT Please make sure to get cardiac clearance prior to surgery * Telephone Encounter - Niesha Garcia - 07/01/2023 9:03 AM EDT Called pt and LVM explaining we already chose an EGD appt, August 03, arrival time of 10:00. Pleaselet pt know that if she calls back. * Telephone Encounter - Ceasar Powell MA - 06/29/2023 2:42 PM EDT Patient LVM that she would like to schedule EGD she found a ride. Please call patient documented in this [facility]SM[facility] [id number] Telephone encounter Note* Telephone Encounter - Niesha Garcia - 07/02/2023 2:28 PM EDT I faxed the cardiac clearance request today. I will keep it in a folder here of pending requests. Ican update the Cced message and route off once received. Unless there is a different protocol for keeping track [id number] Miscellaneous Notes* Telephone Encounter - Niesha Garcia - 07/02/2023 2:28 PM EDT I faxed the cardiac clearance request today. I will keep it in a folder here of pending requests. Ican update the C[facility] message and route off once received. Unless there is a different protocol for keeping track * Telephone Encounter - Whitney Ball PA-C - 07/02/2023 2:08 PM EDT Please make sure to get cardiac clearance prior to surgery * Telephone Encounter - Niesha Garcia - 07/01/2023 9:03 AM EDT Called pt and LVM explaining we already chose an EGD appt, August 03, arrival time of 10:00. Pleaselet pt know that if she calls back. * Telephone Encounter - Ceasar Powell MA - 06/29/2023 2:42 PM EDT Patient LVM that she would like to schedule EGD she found a ride. Please call patient documented in this encounterSMiami Valley [id number] Telephone encounter Note* Telephone Encounter - Whitney Ball PA-C - 07/02/2023 2:08 PM EDT Please make sure to get cardiac clearance prior to surgery [employer] Phone: [phone] Telephone encounter Note* Telephone Encounter - Niesha Garcia - 07/01/2023 9:03 AM EDT Called pt and LVM explaining we already chose an EGD appt, August 03, arrival time of 10:00. Pleaselet pt know that if she calls back. [facility] [id number] Telephone encounter Note* Telephone Encounter - Ceasar Powell MA - 06/29/2023 2:42 PM EDT Patient LVM that she would like to schedule EGD she found a ride. Please call patient [facility] [id number] History of Present illness Narrative* Julian Kurse MD - 06/26/2023 11:15 AM EDT Images from the original note were not included. [facility] Patient Name: Sheyla Ramirez Date: 06/26/23 HPI: Sheyla Ramirez is a 77 y.o. female who presents with GERD, worse at night with reflux and coughing. Now sleeps in a chair to prevent these symptoms. Taking prevacid 30mg in morning and 15mg in the evening, does get occasional breakthrough symptoms. Denies dysphagia, chest pain, or shortness of breath.This has been a longstanding problem for her, she has had these issues for several years however did not seek further workup during COVID. 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 I personally reviewed the patient intake form and discussed the ROS with the patient. The ROS is negative except for what is listed in HPI. Dr Batista OV note 04/15/23 reviewed EGD w/dil Dr Batista 08/30/18 reviewed PMHx: Past Medical History: Diagnosis Date Diabetes mellitus, type 2 (HCC) Gastro-esophageal reflux disease without esophagitis Glaucoma Hypercholesterolemia Other constipation Other intestinal obstruction unspecified as to partial versus complete obstruction (HCC) Other specified symptoms and signs involving the digestive system and abdomen Personal history of colonic polyps PSHx: Past Surgical History: Procedure Laterality Date COLONOSCOPY 2019 EGD (HISTORICAL) 2019 SIGMOID COLECTOMY (HISTORICAL) 2010 Laparoscopic sigmoid colectomy for diverticulitis PFMHx: No family history on file. ALL: Allergies Allergen Reactions Neomycin Hives Penicillins Hives Seasonal Runny nose Sulfa Antibiotics MEDS: Current Outpatient Medications Medication Sig Dispense Refill atorvastatin (Lipitor) 10 MG tablet Take 10 mg by mouth daily. brimonidine (AlphaGAN) 0.2 % ophthalmic solution 1 drop 2 times daily. glimepiride (Amaryl) 4 MG tablet Take 4 mg by mouth every morning (before breakfast). lansoprazole (Prevacid) [address] capsule Take by mouth every morning (before breakfast). Do not crush or chew. losartan (Cozaar) 25 MG tablet Take by mouth. polyethylene glycol, PEG, 3350 (Miralax) 17 g packet Take by mouth. No current facility-administered medications for this visit. SOCIAL Hx: Social History Socioeconomic History Marital status: Spouse name: Not on file Number of children: Not on file Years of education: Not on file Highest education level: Not on file Occupational History Not on file Tobacco Use Smoking status: Never Smokeless tobacco: Never Substance and Sexual Activity Alcohol use: Yes Comment: SOCIALLY Drug use: Never Sexual activity: Not on file Other Topics Concern Not on file Social History Narrative Not on file Social Determinants of Health Financial Resource Strain: Not on file Food Insecurity: Not on file Transportation Needs: Not on file Physical Activity: Not on file Stress: Not on file Social Connections: Not on file Intimate Partner Violence: Not on file Housing Stability: Not on file DIAGNOSTIC EVALUATION: EGD w/dil Dr Batista 08/30/18 Pathology 08/30/18 Physical Examination: BP 120/79 (BP Location: Left arm, Patient Position: Sitting, BP Cuff Size: Large adult) Pulse 76 Temp 36.2 C (97.2 F) Ht 5' 7 (1.702 m) Wt 156 lb (70.8 kg) BMI 24.43 kg/m She stands Height: 5' 7 (170.2 cm) tall with a weight of Weight: 156 lb (70.8 kg) , resulting in aBMI of Body mass index is 24.43 kg/m .. General: The patient is awake, alert, and oriented, and is in no apparent distress. Head and Neck: Normocephalic and atraumatic. Respiratory: Nonlabored breathing Abdomen: Soft, nontender, nondistended. Infraumbilical extraction site from prior laparoscopic sigmoid colectomy with associated port sites. Extremities: Ambulatory without assistance. Skin: No rashes or lesions noted. Hernia: no hernias found on exam Sheyla was seen today for new patient. Diagnoses and all orders for this visit: Hiatal hernia (Primary) - [place] upper GI double contrast w KUB; Future GERD without esophagitis She will need medical risk stratification from her winterizer. We will proceed with surgical intervention. I met with the patient today to discuss risks and benefits of laparoscopic hiatal hernia repair with posterior fundoplication including, but not limited to injury to surrounding structures, the possibility of using mesh for diaphragmatic reinforcement, conversion to open, pleural effusion requiring thoracentesis, prolonged mechanical ventilation, and . She is aware of the possibility of gas bloat syndrome, the need for ongoing PPI/H2 Ryan use, postoperative reflux or dysphagia. We discussed potential for hemorrhage, infection, incomplete resolution of her symptoms, as well as cardiac and pulmonary-related complications. The patient understands and wishes to proceed. Non-operative alternatives were discussed with the patient and they wish to proceed with surgical intervention. Plan: Initial Pre-Operative Testing Primary Procedure: Laparoscopic hiatal hernia pair with mesh, posterior fundoplication, EGD Initial Testing: EGD with biopsy, upper GI with marshmallow bagel protocol Clearance: PAT, cardiology (she has a winterizer) Preop SQ Heparin: 5000 units subcu heparin 2 hours preop x 1 Assessment/Plan Sheyla was seen today for new patient. Diagnoses and all orders for this visit: Hiatal hernia (Primary) - [place] upper GI double contrast w KUB; Future GERD without esophagitis 77-year-old female with a symptomatic hiatal hernia with GERD, intermittent aspiration and frequentregurgitation of acid. Proceed with further workup including EGD with biopsy as well as upper GI with marshmallow bagel protocol. Will also proceed with surgical scheduling. The risk and benefits of the procedure were discussed with her as outlined above, visual aids were used to describe the procedure and all of their questions were answered to their satisfaction. Proceed with EGD/upper GI as well as surgical scheduling and cardiac clearance from her winterizer. I personally performed the evaluation and management of Sheyla Ramirez in the development of a treatment plan for this patient. I personally interviewed the patient and performed an individual physical examination. In addition, I discussed the patient's condition and treatment options with them. I have also reviewed and agree with the past medical, family and social history unless otherwise noted. All of the patient's questions were answered. I discussed/counseled the patient regarding the risks and benefits of surgery as well as the preoperative and postoperative care plan for this patient.The patient was seen and examined independently and relevant data reviewed by myself. A full chart review was performed. Patient Care Team: Lena Thorne as PCP - General (Internal Medicine) Chandana Batista (Gastroenterology) documented in this [facility]05-10-2024 History of Present illness Narrative* Julian Kruse MD - 06/26/2023 11:15 AM EDT Images from the original note were not included. [facility] Surgery Patient Name: Sheyla Ramirez Date: 06/26/23 HPI: Sheyla Ramirez is a 77 y.o. female who presents with GERD, worse at night with reflux and coughing. Now sleeps in a chair to prevent these symptoms. Taking prevacid 30mg in morning and 15mg in the evening, does get occasional breakthrough symptoms. Denies dysphagia, chest pain, or shortness of breath.This has been a longstanding problem for her, she has had these issues for several years however did not seek further workup during COVID. 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 I personally reviewed the patient intake form and discussed the ROS with the patient. The ROS is negative except for what is listed in HPI. Dr Batista OV note 04/15/23 reviewed EGD w/dil Dr Batista 08/30/18 reviewed PMHx: Past Medical History: Diagnosis Date Diabetes mellitus, type 2 (HCC) Gastro-esophageal reflux disease without esophagitis Glaucoma Hypercholesterolemia Other constipation Other intestinal obstruction unspecified as to partial versus complete obstruction (HCC) Other specified symptoms and signs involving the digestive system and abdomen Personal history of colonic polyps PSHx: Past Surgical History: Procedure Laterality Date COLONOSCOPY 2019 EGD (HISTORICAL) 2019 SIGMOID COLECTOMY (HISTORICAL) 2010 Laparoscopic sigmoid colectomy for diverticulitis PFMHx: No family history on file. ALL: Allergies Allergen Reactions Neomycin Hives Penicillins Hives Seasonal Runny nose Sulfa Antibiotics MEDS: Current Outpatient Medications Medication Sig Dispense Refill atorvastatin (Lipitor) 10 MG tablet Take 10 mg by mouth daily. brimonidine (AlphaGAN) 0.2 % ophthalmic solution 1 drop 2 times daily. glimepiride (Amaryl) 4 MG tablet Take 4 mg by mouth every morning (before breakfast). lansoprazole (Prevacid) [address] capsule Take by mouth every morning (before breakfast). Do not crush or chew. losartan (Cozaar) 25 MG tablet Take by mouth. polyethylene glycol, PEG, 3350 (Miralax) 17 g packet Take by mouth. No current facility-administered medications for this visit. SOCIAL Hx: Social History Socioeconomic History Marital status: Spouse name: Not on file Number of children: Not on file Years of education: Not on file Highest education level: Not on file Occupational History Not on file Tobacco Use Smoking status: Never Smokeless tobacco: Never Substance and Sexual Activity Alcohol use: Yes Comment: SOCIALLY Drug use: Never Sexual activity: Not on file Other Topics Concern Not on file Social History Narrative Not on file Social Determinants of Health Financial Resource Strain: Not on file Food Insecurity: Not on file Transportation Needs: Not on file Physical Activity: Not on file Stress: Not on file Social Connections: Not on file Intimate Partner Violence: Not on file Housing Stability: Not on file DIAGNOSTIC EVALUATION: EGD w/dil Dr Batista 08/30/18 Pathology 08/30/18 Physical Examination: BP 120/79 (BP Location: Left arm, Patient Position: Sitting, BP Cuff Size: Large adult) Pulse 76 Temp 36.2 C (97.2 F) Ht 5' 7 (1.702 m) Wt 156 lb (70.8 kg) BMI 24.43 kg/m She stands Height: 5' 7 (170.2 cm) tall with a weight of Weight: 156 lb (70.8 kg) , resulting in aBMI of Body mass index is 24.43 kg/m .. General: The patient is awake, alert, and oriented, and is in no apparent distress. Head and Neck: Normocephalic and atraumatic. Respiratory: Nonlabored breathing Abdomen: Soft, nontender, nondistended. Infraumbilical extraction site from prior laparoscopic sigmoid colectomy with associated port sites. Extremities: Ambulatory without assistance. Skin: No rashes or lesions noted. Hernia: no hernias found on exam Sheyla was seen today for new patient. Diagnoses and all orders for this visit: Hiatal hernia (Primary) - [place] upper GI double contrast w KUB; Future GERD without esophagitis She will need medical risk stratification from her winterizer. We will proceed with surgical intervention. I met with the patient today to discuss risks and benefits of laparoscopic hiatal hernia repair with posterior fundoplication including, but not limited to injury to surrounding structures, the possibility of using mesh for diaphragmatic reinforcement, conversion to open, pleural effusion requiring thoracentesis, prolonged mechanical ventilation, and . She is aware of the possibility of gas bloat syndrome, the need for ongoing PPI/H2 Ryan use, postoperative reflux or dysphagia. We discussed potential for hemorrhage, infection, incomplete resolution of her symptoms, as well as cardiac and pulmonary-related complications. The patient understands and wishes to proceed. Non-operative alternatives were discussed with the patient and they wish to proceed with surgical intervention. Plan: Initial Pre-Operative Testing Primary Procedure: Laparoscopic hiatal hernia pair with mesh, posterior fundoplication, EGD Initial Testing: EGD with biopsy, upper GI with marshmallow bagel protocol Clearance: PAT, cardiology (she has a winterizer) Preop SQ Heparin: 5000 units subcu heparin 2 hours preop x 1 Assessment/Plan Sheyla was seen today for new patient. Diagnoses and all orders for this visit: Hiatal hernia (Primary) - [place] upper GI double contrast w KUB; Future GERD without esophagitis 77-year-old female with a symptomatic hiatal hernia with GERD, intermittent aspiration and frequentregurgitation of acid. Proceed with further workup including EGD with biopsy as well as upper GI with marshmallow bagel protocol. Will also proceed with surgical scheduling. The risk and benefits of the procedure were discussed with her as outlined above, visual aids were used to describe the procedure and all of their questions were answered to their satisfaction. Proceed with EGD/upper GI as well as surgical scheduling and cardiac clearance from her winterizer. I personally performed the evaluation and management of Sheyla Ramirez in the development of a treatment plan for this patient. I personally interviewed the patient and performed an individual physical examination. In addition, I discussed the patient's condition and treatment options with them. I have also reviewed and agree with the past medical, family and social history unless otherwise noted. All of the patient's questions were answered. I discussed/counseled the patient regarding the risks and benefits of surgery as well as the preoperative and postoperative care plan for this patient.The patient was seen and examined independently and relevant data reviewed by myself. A full chart review was performed. Patient Care Team: Lena Thorne as PCP - General (Internal Medicine) Chandana Batista (Gastroenterology) * Niesha Garcia - 06/26/2023 11:15 AM EDT Called pt and notified of upper GI and EGD. Mailed paperwork documented in this [facility]05-10-2024 History of Present illness Narrative* Julian Kruse MD - 06/26/2023 11:15 AM EDT Images from the original note were not included. [facility] Phys[facility] Surgery Patient Name: Sheyla Ramirez Date: 06/26/23 HPI: Sheyla Ramirez is a 77 y.o. female who presents with GERD, worse at night with reflux and coughing. Now sleeps in a chair to prevent these symptoms. Taking prevacid 30mg in morning and 15mg in the evening, does get occasional breakthrough symptoms. Denies dysphagia, chest pain, or shortness of breath.This has been a longstanding problem for her, she has had these issues for several years however did not seek further workup during COVFL. 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 I personally reviewed the patient intake form and discussed the ROS with the patient. The ROS is negative except for what is listed in HPI. Dr Batista OV note 04/15/23 reviewed EGD w/dil Dr Batista 08/30/18 reviewed PMHx: Past Medical History: Diagnosis Date Diabetes mellitus, type 2 (HCC) Gastro-esophageal reflux disease without esophagitis Glaucoma Hypercholesterolemia Other constipation Other intestinal obstruction unspecified as to partial versus complete obstruction (HCC) Other specified symptoms and signs involving the digestive system and abdomen Personal history of colonic polyps PSHx: Past Surgical History: Procedure Laterality Date COLONOSCOPY 2019 EGD (HISTORICAL) 2019 SIGMOID COLECTOMY (HISTORICAL) 2010 Laparoscopic sigmoid colectomy for diverticulitis PFMHx: No family history on file. ALL: Allergies Allergen Reactions Neomycin Hives Penicillins Hives Seasonal Runny nose Sulfa Antibiotics MEDS: Current Outpatient Medications Medication Sig Dispense Refill atorvastatin (Lipitor) 10 MG tablet Take 10 mg by mouth daily. brimonidine (AlphaGAN) 0.2 % ophthalmic solution 1 drop 2 times daily. glimepiride (Amaryl) 4 MG tablet Take 4 mg by mouth every morning (before breakfast). lansoprazole (Prevacid) [address] capsule Take by mouth every morning (before breakfast). Do not crush or chew. losartan (Cozaar) 25 MG tablet Take by mouth. polyethylene glycol, PEG, 3350 (Miralax) 17 g packet Take by mouth. No current facility-administered medications for this visit. SOCIAL Hx: Social History Socioeconomic History Marital status: Spouse name: Not on file Number of children: Not on file Years of education: Not on file Highest education level: Not on file Occupational History Not on file Tobacco Use Smoking status: Never Smokeless tobacco: Never Substance and Sexual Activity Alcohol use: Yes Comment: SOCIALLY Drug use: Never Sexual activity: Not on file Other Topics Concern Not on file Social History Narrative Not on file Social Determinants of Health Financial Resource Strain: Not on file Food Insecurity: Not on file Transportation Needs: Not on file Physical Activity: Not on file Stress: Not on file Social Connections: Not on file Intimate Partner Violence: Not on file Housing Stability: Not on file DIAGNOSTIC EVALUATION: EGD w/dil Dr Batista 08/30/18 Pathology 08/30/18 Physical Examination: BP 120/79 (BP Location: Left arm, Patient Position: Sitting, BP Cuff Size: Large adult) Pulse 76 Temp 36.2 C (97.2 F) Ht 5' 7 (1.702 m) Wt 156 lb (70.8 kg) BMI 24.43kg/m She stands Height: 5' 7 (170.2 cm) tall with a weight of Weight: 156 lb (70.8 kg) , resulting in aBMI of Body mass index is 24.43 kg/m .. General: The patient is awake, alert, and oriented, and is in no apparent distress. Head and Neck: Normocephalic and atraumatic. Respiratory: Nonlabored breathing Abdomen: Soft, nontender, nondistended. Infraumbilical extraction site from prior laparoscopic sigmoid colectomy with associated port sites. Extremities: Ambulatory without assistance. Skin: No rashes or lesions noted. Hernia: no hernias found on exam Sheyla was seen today for new patient. Diagnoses and all orders for this visit: Hiatal hernia (Primary) - [place] upper GI double contrast w KUB; Future GERD without esophagitis She will need medical risk stratification from her winterizer. We will proceed with surgical intervention. I met with the patient today to discuss risks and benefits of laparoscopic hiatal hernia repair with posterior fundoplication including, but not limited to injury to surrounding structures, the possibility of using mesh for diaphragmatic reinforcement, conversion to open, pleural effusion requiring thoracentesis, prolonged mechanical ventilation, and . She is aware of the possibility of gas bloat syndrome, the need for ongoing PPI/H2 Ryan use, postoperative reflux or dysphagia. We discussed potential for hemorrhage, infection, incomplete resolution of her symptoms, as well as cardiac and pulmonary-related complications. The patient understands and wishes to proceed. Non-operative alternatives were discussed with the patient and they wish to proceed with surgical intervention. Plan: Initial Pre-Operative Testing Primary Procedure: Laparoscopic hiatal hernia pair with mesh, posterior fundoplication, EGD Initial Testing: EGD with biopsy, upper GI with marshmallow bagel protocol Clearance: PAT, cardiology (she has a winterizer) Preop SQ Heparin: 5000 units subcu heparin 2 hours preop x 1 Assessment/Plan Sheyla was seen today for new patient. Diagnoses and all orders for this visit: Hiatal hernia (Primary) - [place] upper GI double contrast w KUB; Future GERD without esophagitis 77-year-old female with a symptomatic hiatal hernia with GERD, intermittent aspiration and frequentregurgitation of acid. Proceed with further workup including EGD with biopsy as well as upper GI with marshmallow bagel protocol. Will also proceed with surgical scheduling. The risk and benefits of the procedure were discussed with her as outlined above, visual aids were used to describe the procedure and all of their questions were answered to their satisfaction. Proceed with EGD/upper GI as well as surgical scheduling and cardiac clearance from her winterizer. I personally performed the evaluation and management of Sheyla Ramirez in the development of a treatment plan for this patient. I personally interviewed the patient and performed an individual physical examination. In addition, I discussed the patient's condition and treatment options with them. I have also reviewed and agree with the past medical, family and social history unless otherwise noted. All of the patient's questions were answered. I discussed/counseled the patient regarding the risks and benefits of surgery as well as the preoperative and postoperative care plan for this patient.The patient was seen and examined independently and relevant data reviewed by myself. A full chart review was performed. Patient Care Team: Lena Thorne as PCP - General (Internal Medicine) Chandana Batista (Gastroenterology) * Niesha Garcia - 06/26/2023 11:15 AM EDT Called pt and notified of upper GI and EGD. Mailed paperwork * Niesha Garcia - 06/26/2023 11:15 AM EDT Pt called and surgery date chose, case entered, post-ops made, and cardiac clearance faxed to winterizer documented in this [facility]05-10-2024 History of Present illness Narrative* Julian Kruse MD - 06/26/2023 11:15 AM EDT Images from the original note were not included. [facility] - Surgery [facility] Physicians Surgery Patient Name: Sheyla Ramirez Date: 06/26/23 HPI: Sheyla Ramirez is a 77 y.o. female who presents with GERD, worse at night with reflux and coughing. Now sleeps in a chair to prevent these symptoms. Taking prevacid 30mg in morning and 15mg in the evening, does get occasional breakthrough symptoms. Denies dysphagia, chest pain, or shortness of breath.This has been a longstanding problem for her, she has had these issues for several years however did not seek further workup during [facility]. 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 I personally reviewed the patient intake form and discussed the ROS with the patient. The ROS is negative except for what is listed in HPI. Dr Batista OV note 04/15/23 reviewed EGD w/dil Dr Batista 08/30/18 reviewed PMHx: Past Medical History: Diagnosis Date Diabetes mellitus, type 2 (HCC) Gastro-esophageal reflux disease without esophagitis Glaucoma Hypercholesterolemia Other constipation Other intestinal obstruction unspecified as to partial versus complete obstruction (HCC) Other specified symptoms and signs involving the digestive system and abdomen Personal history of colonic polyps PSHx: Past Surgical History: Procedure Laterality Date COLONOSCOPY 2019 EGD (HISTORICAL) 2019 SIGMOID COLECTOMY (HISTORICAL) 2010 Laparoscopic sigmoid colectomy for diverticulitis PFMHx: No family history on file. ALL: Allergies Allergen Reactions Neomycin Hives Penicillins Hives Seasonal Runny nose Sulfa Antibiotics MEDS: Current Outpatient Medications Medication Sig Dispense Refill atorvastatin (Lipitor) 10 MG tablet Take 10 mg by mouth daily. brimonidine (AlphaGAN) 0.2 % ophthalmic solution 1 drop 2 times daily. glimepiride (Amaryl) 4 MG tablet Take 4 mg by mouth every morning (before breakfast). lansoprazole (Prevacid) [address] capsule Take by mouth every morning (before breakfast). Do not crush or chew. losartan (Cozaar) 25 MG tablet Take by mouth. polyethylene glycol, PEG, 3350 (Miralax) 17 g packet Take by mouth. No current facility-administered medications for this visit. SOCIAL Hx: Social History Socioeconomic History Marital status: Spouse name: Not on file Number of children: Not on file Years of education: Not on file Highest education level: Not on file Occupational History Not on file Tobacco Use Smoking status: Never Smokeless tobacco: Never Substance and Sexual Activity Alcohol use: Yes Comment: SOCIALLY Drug use: Never Sexual activity: Not on file Other Topics Concern Not on file Social History Narrative Not on file Social Determinants of Health Financial Resource Strain: Not on file Food Insecurity: Not on file Transportation Needs: Not on file Physical Activity: Not on file Stress: Not on file Social Connections: Not on file Intimate Partner Violence: Not on file Housing Stability: Not on file DIAGNOSTIC EVALUATION: EGD w/dil Dr Batista 08/30/18 Pathology 08/30/18 Physical Examination: BP 120/79 (BP Location: Left arm, Patient Position: Sitting, BP Cuff Size: Large adult) Pulse 76 Temp 36.2 C (97.2 F) Ht 5' 7 (1.702 m) Wt 156 lb (70.8 kg) BMI 24.43 kg/m She stands Height: 5' 7 (170.2 cm) tall with a weight of Weight: 156 lb (70.8 kg) , resulting in aBMI of Body mass index is 24.43 kg/m .. General: The patient is awake, alert, and oriented, and is in no apparent distress. Head and Neck: Normocephalic and atraumatic. Respiratory: Nonlabored breathing Abdomen: Soft, nontender, nondistended. Infraumbilical extraction site from prior laparoscopic sigmoid colectomy with associated port sites. Extremities: Ambulatory without assistance. Skin: No rashes or lesions noted. Hernia: no hernias found on exam Sheyla was seen today for new patient. Diagnoses and all orders for this visit: Hiatal hernia (Primary) - FL upper GI double contrast w KUB; Future GERD without esophagitis She will need medical risk stratification from her winterizer. We will proceed with surgical intervention. I met with the patient today to discuss risks and benefits of laparoscopic hiatal hernia repair with posterior fundoplication including, but not limited to injury to surrounding structures, the possibility of using mesh for diaphragmatic reinforcement, conversion to open, pleural effusion requiring thoracentesis, prolonged mechanical ventilation, and . She is aware of the possibility of gas bloat syndrome, the need for ongoing PPI/H2 Ryan use, postoperative reflux or dysphagia. We discussed potential for hemorrhage, infection, incomplete resolution of her symptoms, as well as cardiac and pulmonary-related complications. The patient understands and wishes to proceed. Non-operative alternatives were discussed with the patient and they wish to proceed with surgical intervention. Plan: Initial Pre-Operative Testing Primary Procedure: Laparoscopic hiatal hernia pair with mesh, posterior fundoplication, EGD Initial Testing: EGD with biopsy, upper GI with marshmallow bagel protocol Clearance: PAT, cardiology (she has a winterizer) Preop SQ Heparin: 5000 units subcu heparin 2 hours preop x 1 Assessment/Plan Sheyla was seen today for new patient. Diagnoses and all orders for this visit: Hiatal hernia (Primary) - [place] upper GI double contrast w KUB; Future GERD without esophagitis 77-year-old female with a symptomatic hiatal hernia with GERD, intermittent aspiration and frequentregurgitation of acid. Proceed with further workup including EGD with biopsy as well as upper GI with marshmallow bagel protocol. Will also proceed with surgical scheduling. The risk and benefits of the procedure were discussed with her as outlined above, visual aids were used to describe the procedure and all of their questions were answered to their satisfaction. Proceed with EGD/upper GI as well as surgical scheduling and cardiac clearance from her winterizer. I personally performed the evaluation and management of Sheyla Ramirez in the development of a treatment plan for this patient. I personally interviewed the patient and performed an individual physical examination. In addition, I discussed the patient's condition and treatment options with them. I have also reviewed and agree with the past medical, family and social history unless otherwise noted. All of the patient's questions were answered. I discussed/counseled the patient regarding the risks and benefits of surgery as well as the preoperative and postoperative care plan for this patient.The patient was seen and examined independently and relevant data reviewed by myself. A full chart review was performed. Patient Care Team: Lena Thorne as PCP - General (Internal Medicine) Chandana Batista (Gastroenterology) * Niesha Garcia - 06/26/2023 11:15 AM EDT Called pt and notified of upper GI and EGD. Mailed paperwork * Niesha Garcia - 06/26/2023 11:15 AM EDT Pt called and surgery date chose, case entered, post-ops made, and cardiac clearance faxed to winterizer * Niesha Garcia - 06/26/2023 11:15 AM EDT Somehow outlook when it glitched and some cases and open slots were moved, this pt was scheduled nydia (09/01). -She is now scheduled 09/08 @ 9:00. I believe you still have the surgery checklistin your box. I am going to call now and update the case w/ surgery scheduling, and also mail home and call the pt about the change of surgery date. * Whitney Ball PA-C - 06/26/2023 11:15 AM EDT Noted. thanks * Niesha Garcia - 06/26/2023 11:15 AM EDT Spoke with pt today about new surgery date of 09/08 @ 7:00. She verbalized understanding and also stated she has an appt w/ her winterizer on 08/27. (Cardiac clearance still pending til then) documented in this [facility]05-10-2024 History of Present illness Narrative* Julian Kruse MD - 06/26/2023 11:15 AM EDT Images from the original note were not included. [facility] - Surgery [facility] Physicians Surgery Patient Name: Sheyla Ramirez Date: 06/26/23 HPI: Sheyla Ramirez is a 77 y.o. female who presents with GERD, worse at night with reflux and coughing. Now sleeps in a chair to prevent these symptoms. Taking prevacid 30mg in morning and 15mg in the evening, does get occasional breakthrough symptoms. Denies dysphagia, chest pain, or shortness of breath.This has been a longstanding problem for her, she has had these issues for several years however did not seek further workup during COVID. 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 I personally reviewed the patient intake form and discussed the ROS with the patient. The ROS is negative except for what is listed in HPI. Dr Batista OV note 04/15/23 reviewed EGD w/dil Dr Batista 08/30/18 reviewed PMHx: Past Medical History: Diagnosis Date Diabetes mellitus, type 2 (HCC) Gastro-esophageal reflux disease without esophagitis Glaucoma Hypercholesterolemia Other constipation Other intestinal obstruction unspecified as to partial versus complete obstruction (HCC) Other specified symptoms and signs involving the digestive system and abdomen Personal history of colonic polyps PSHx: Past Surgical History: Procedure Laterality Date COLONOSCOPY 2019 EGD (HISTORICAL) 2019 SIGMOID COLECTOMY (HISTORICAL) 2010 Laparoscopic sigmoid colectomy for diverticulitis PFMHx: No family history on file. ALL: Allergies Allergen Reactions Neomycin Hives Penicillins Hives Seasonal Runny nose Sulfa Antibiotics MEDS: Current Outpatient Medications Medication Sig Dispense Refill atorvastatin (Lipitor) 10 MG tablet Take 10 mg by mouth daily. brimonidine (AlphaGAN) 0.2 % ophthalmic solution 1 drop 2 times daily. glimepiride (Amaryl) 4 MG tablet Take 4 mg by mouth every morning (before breakfast). lansoprazole (Prevacid) [address] capsule Take by mouth every morning (before breakfast). Do not crush or chew. losartan (Cozaar) 25 MG tablet Take by mouth. polyethylene glycol, PEG, 3350 (Miralax) 17 g packet Take by mouth. No current facility-administered medications for this visit. SOCIAL Hx: Social History Socioeconomic History Marital status: Spouse name: Not on file Number of children: Not on file Years of education: Not on file Highest education level: Not on file Occupational History Not on file Tobacco Use Smoking status: Never Smokeless tobacco: Never Substance and Sexual Activity Alcohol use: Yes Comment: SOCIALLY Drug use: Never Sexual activity: Not on file Other Topics Concern Not on file Social History Narrative Not on file Social Determinants of Health Financial Resource Strain: Not on file Food Insecurity: Not on file Transportation Needs: Not on file Physical Activity: Not on file Stress: Not on file Social Connections: Not on file Intimate Partner Violence: Not on file Housing Stability: Not on file DIAGNOSTIC EVALUATION: EGD w/dil Dr Batista 08/30/18 Pathology 08/30/18 Physical Examination: BP 120/79 (BP Location: Left arm, Patient Position: Sitting, BP Cuff Size: Large adult) Pulse 76 Temp 36.2 C (97.2 F) Ht 5' 7 (1.702 m) Wt 156 lb (70.8 kg) BMI 24.43 kg/m She stands Height: 5' 7 (170.2 cm) tall with a weight of Weight: 156 lb (70.8 kg) , resulting in aBMI of Body mass index is 24.43 kg/m .. General: The patient is awake, alert, and oriented, and is in no apparent distress. Head and Neck: Normocephalic and atraumatic. Respiratory: Nonlabored breathing Abdomen: Soft, nontender, nondistended. Infraumbilical extraction site from prior laparoscopic sigmoid colectomy with associated port sites. Extremities: Ambulatory without assistance. Skin: No rashes or lesions noted. Hernia: no hernias found on exam Sheyla was seen today for new patient. Diagnoses and all orders for this visit: Hiatal hernia (Primary) - [place] upper GI double contrast w KUB; Future GERD without esophagitis She will need medical risk stratification from her winterizer. We will proceed with surgical intervention. I met with the patient today to discuss risks and benefits of laparoscopic hiatal hernia repair with posterior fundoplication including, but not limited to injury to surrounding structures, the possibility of using mesh for diaphragmatic reinforcement, conversion to open, pleural effusion requiring thoracentesis, prolonged mechanical ventilation, and . She is aware of the possibility of gas bloat syndrome, the need for ongoing PPI/H2 Ryan use, postoperative reflux or dysphagia. We discussed potential for hemorrhage, infection, incomplete resolution of her symptoms, as well as cardiac and pulmonary-related complications. The patient understands and wishes to proceed. Non-operative alternatives were discussed with the patient and they wish to proceed with surgical intervention. Plan: Initial Pre-Operative Testing Primary Procedure: Laparoscopic hiatal hernia pair with mesh, posterior fundoplication, EGD Initial Testing: EGD with biopsy, upper GI with marshmallow bagel protocol Clearance: PAT, cardiology (she has a winterizer) Preop SQ Heparin: 5000 units subcu heparin 2 hours preop x 1 Assessment/Plan Sheyla was seen today for new patient. Diagnoses and all orders for this visit: Hiatal hernia (Primary) - [place] upper GI double contrast w KUB; Future GERD without esophagitis 77-year-old female with a symptomatic hiatal hernia with GERD, intermittent aspiration and frequentregurgitation of acid. Proceed with further workup including EGD with biopsy as well as upper GI with marshmallow bagel protocol. Will also proceed with surgical scheduling. The risk and benefits of the procedure were discussed with her as outlined above, visual aids were used to describe the procedure and all of their questions were answered to their satisfaction. Proceed with EGD/upper GI as well as surgical scheduling and cardiac clearance from her winterizer. I personally performed the evaluation and management of Sheyla Ramirez in the development of a treatment plan for this patient. I personally interviewed the patient and performed an individual physical examination. In addition, I discussed the patient's condition and treatment options with them. I have also reviewed and agree with the past medical, family and social history unless otherwise noted. All of the patient's questions were answered. I discussed/counseled the patient regarding the risks and benefits of surgery as well as the preoperative and postoperative care plan for this patient.The patient was seen and examined independently and relevant data reviewed by myself. A full chart review was performed. Patient Care Team: Lena Thorne as PCP - General (Internal Medicine) Chandana Batista (Gastroenterology) * Niesha Garcia - 06/26/2023 11:15 AM EDT Called pt and notified of upper GI and EGD. Mailed paperwork * Niesha Garcia - 06/26/2023 11:15 AM EDT Pt called and surgery date chose, case entered, post-ops made, and cardiac clearance faxed to winterizer * Niesha Garcia - 06/26/2023 11:15 AM EDT Somehow outlook when it glitched and some cases and open slots were moved, this pt was scheduled nydia (09/01). -She is now scheduled 09/08 @ 9:00. I believe you still have the surgery checklistin your box. I am going to call now and update the case w/ surgery scheduling, and also mail home and call the pt about the change of surgery date. * Whitney Ball PA-C - 06/26/2023 11:15 AM EDT Noted. thanks * Niesha Garcia - 06/26/2023 11:15 AM EDT Spoke with pt today about new surgery date of 09/08 @ 7:00. She verbalized understanding and also stated she has an appt w/ her winterizer on 08/27. (Cardiac clearance still pending til then) * Niesha Garcia - 06/26/2023 11:15 AM EDT Received cardiac clearance approval. -pre-op appt this Thursday documented in this [facility]05-10-2024 History of Present illness Narrative* Julian Kruse MD - 06/26/2023 11:15 AM EDT Images from the original note were not included. [facility] - Surgery [facility] Physicians Surgery Patient Name: Sheyla Ramirez Date: 06/26/23 HPI: Sheyla Ramirez is a 77 y.o. female who presents with GERD, worse at night with reflux and coughing. Now sleeps in a chair to prevent these symptoms. Taking prevacid 30mg in morning and 15mg in the evening, does get occasional breakthrough symptoms. Denies dysphagia, chest pain, or shortness of breath.This has been a longstanding problem for her, she has had these issues for several years however did not seek further workup during COVID. 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 I personally reviewed the patient intake form and discussed the ROS with the patient. The ROS is negative except for what is listed in HPI. Dr Batista OV note 04/15/23 reviewed EGD w/dil Dr Batista 08/30/18 reviewed PMHx: Past Medical History: Diagnosis Date Diabetes mellitus, type 2 (HCC) Gastro-esophageal reflux disease without esophagitis Glaucoma Hypercholesterolemia Other constipation Other intestinal obstruction unspecified as to partial versus complete obstruction (HCC) Other specified symptoms and signs involving the digestive system and abdomen Personal history of colonic polyps PSHx: Past Surgical History: Procedure Laterality Date COLONOSCOPY 2019 EGD (HISTORICAL) 2019 SIGMOID COLECTOMY (HISTORICAL) 2010 Laparoscopic sigmoid colectomy for diverticulitis PFMHx: No family history on file. ALL: Allergies Allergen Reactions Neomycin Hives Penicillins Hives Seasonal Runny nose Sulfa Antibiotics MEDS: Current Outpatient Medications Medication Sig Dispense Refill atorvastatin (Lipitor) 10 MG tablet Take 10 mg by mouth daily. brimonidine (AlphaGAN) 0.2 % ophthalmic solution 1 drop 2 times daily. glimepiride (Amaryl) 4 MG tablet Take 4 mg by mouth every morning (before breakfast). lansoprazole (Prevacid) [address] capsule Take by mouth every morning (before breakfast). Do not crush or chew. losartan (Cozaar) 25 MG tablet Take by mouth. polyethylene glycol, PEG, 3350 (Miralax) 17 g packet Take by mouth. No current facility-administered medications for this visit. SOCIAL Hx: Social History Socioeconomic History Marital status: Spouse name: Not on file Number of children: Not on file Years of education: Not on file Highest education level: Not on file Occupational History Not on file Tobacco Use Smoking status: Never Smokeless tobacco: Never Substance and Sexual Activity Alcohol use: Yes Comment: SOCIALLY Drug use: Never Sexual activity: Not on file Other Topics Concern Not on file Social History Narrative Not on file Social Determinants of Health Financial Resource Strain: Not on file Food Insecurity: Not on file Transportation Needs: Not on file Physical Activity: Not on file Stress: Not on file Social Connections: Not on file Intimate Partner Violence: Not on file Housing Stability: Not on file DIAGNOSTIC EVALUATION: EGD w/dil Dr Batista 08/30/18 Pathology 08/30/18 Physical Examination: BP 120/79 (BP Location: Left arm, Patient Position: Sitting, BP Cuff Size: Large adult) Pulse 76 Temp 36.2 C (97.2 F) Ht 5' 7 (1.702 m) Wt 156 lb (70.8 kg) BMI 24.43 kg/m She stands Height: 5' 7 (170.2 cm) tall with a weight of Weight: 156 lb (70.8 kg) , resulting in aBMI of Body mass index is 24.43 kg/m .. General: The patient is awake, alert, and oriented, and is in no apparent distress. Head and Neck: Normocephalic and atraumatic. Respiratory: Nonlabored breathing Abdomen: Soft, nontender, nondistended. Infraumbilical extraction site from prior laparoscopic sigmoid colectomy with associated port sites. Extremities: Ambulatory without assistance. Skin: No rashes or lesions noted. Hernia: no hernias found on exam Sheyla was seen today for new patient. Diagnoses and all orders for this visit: Hiatal hernia (Primary) - [place] upper GI double contrast w KUB; Future GERD without esophagitis She will need medical risk stratification from her winterizer. We will proceed with surgical intervention. I met with the patient today to discuss risks and benefits of laparoscopic hiatal hernia repair with posterior fundoplication including, but not limited to injury to surrounding structures, the possibility of using mesh for diaphragmatic reinforcement, conversion to open, pleural effusion requiring thoracentesis, prolonged mechanical ventilation, and . She is aware of the possibility of gas bloat syndrome, the need for ongoing PPI/H2 Ryan use, postoperative reflux or dysphagia. We discussed potential for hemorrhage, infection, incomplete resolution of her symptoms, as well as cardiac and pulmonary-related complications. The patient understands and wishes to proceed. Non-operative alternatives were discussed with the patient and they wish to proceed with surgical intervention. Plan: Initial Pre-Operative Testing Primary Procedure: Laparoscopic hiatal hernia pair with mesh, posterior fundoplication, EGD Initial Testing: EGD with biopsy, upper GI with marshmallow bagel protocol Clearance: PAT, cardiology (she has a winterizer) Preop SQ Heparin: 5000 units subcu heparin 2 hours preop x 1 Assessment/Plan Sheyla was seen today for new patient. Diagnoses and all orders for this visit: Hiatal hernia (Primary) - [place] upper GI double contrast w KUB; Future GERD without esophagitis 77-year-old female with a symptomatic hiatal hernia with GERD, intermittent aspiration and frequentregurgitation of acid. Proceed with further workup including EGD with biopsy as well as upper GI with marshmallow bagel protocol. Will also proceed with surgical scheduling. The risk and benefits of the procedure were discussed with her as outlined above, visual aids were used to describe the procedure and all of their questions were answered to their satisfaction. Proceed with EGD/upper GI as well as surgical scheduling and cardiac clearance from her winterizer. I personally performed the evaluation and management of Sheyla Ramirez in the development of a treatment plan for this patient. I personally interviewed the patient and performed an individual physical examination. In addition, I discussed the patient's condition and treatment options with them. I have also reviewed and agree with the past medical, family and social history unless otherwise noted. All of the patient's questions were answered. I discussed/counseled the patient regarding the risks and benefits of surgery as well as the preoperative and postoperative care plan for this patient.The patient was seen and examined independently and relevant data reviewed by myself. A full chart review was performed. Patient Care Team: Lena Thorne as PCP - General (Internal Medicine) Chandana Batista (Gastroenterology) * Niesha Garcia - 06/26/2023 11:15 AM EDT Called pt and notified of upper GI and EGD. Mailed paperwork * Niesha Garcia - 06/26/2023 11:15 AM EDT Pt called and surgery date chose, case entered, post-ops made, and cardiac clearance faxed to winterizer * Niesha Garcia - 06/26/2023 11:15 AM EDT Somehow outlook when it glitched and some cases and open slots were moved, this pt was scheduled nydia (09/01). -She is now scheduled 09/08 @ 9:00. I believe you still have the surgery checklistin your box. I am going to call now and update the case w/ surgery scheduling, and also mail home and call the pt about the change of surgery date. * Whitney Ball PA-C - 06/26/2023 11:15 AM EDT Noted. thanks * Niesha Garcia - 06/26/2023 11:15 AM EDT Spoke with pt today about new surgery date of 09/08 @ 7:00. She verbalized understanding and also stated she has an appt w/ her winterizer on 08/27. (Cardiac clearance still pending til then) * Niesha Garcia - 06/26/2023 11:15 AM EDT Received cardiac clearance approval. -pre-op appt this Thursday * Niehsa Garcia - 06/26/2023 11:15 AM EDT Cardiac stress test and ECHO results received from [facility]. Placed in review folder * Niesha Garcia - 06/26/2023 11:15 AM EDT Cardiac paperwork received and signed off on. PAT canceled per Sha (pt aware) documented in this [facility]04-17-2024 Telephone encounter Note* Telephone Encounter - Low Boykin - 06/03/2023 9:03 AM EDT [employer] appt scheduled for 06/25, pt informed via phone/mail. Sent GABRIELLA to [place] to get UGI images. [id number] Miscellaneous Notes* Telephone Encounter - Low Boykin - 06/03/2023 9:03 AM EDT [employer] appt scheduled for 06/25, pt informed via phone/mail. Sent GABRIELLA to [place] to get UGI images. * Telephone Encounter - Low Boykin - 06/02/2023 10:15 AM EDT Referral received and given to Dr. Ceballos for review. Lvm asking pt where she got her UGI done so I can get images for Dr. Ceballos to review. documented in this encounterSMiami Valley [phone] NoteReferral received and given to Dr. Ceballos for review. Lvm asking pt where she got her UGI done so I can get images for Dr. Ceballos to review.[facility] 06-02-2023 Telephone encounter Note* Telephone Encounter - Low Boykin - 06/02/2023 10:15 AM EDT Referral received and given to Dr. Ceballos for review. Lvm asking pt where she got her UGI done so I can get images for Dr. Ceballos to review. [facility] Diagnosis Onset Date Resolution Status Bilateral impacted cerumen a cute Essential (primary) hypertension chronic Type 2 diabetes mellitus chr onic Abdominal pain chronic Essential (primary) hypertension chronic Type 2 diabetes mellitus chr onic [facility] Work Phone: Evaluation note* Diagnosis Onset Date Resolution Status Bilateral impacted cerumen a cute Essential (primary) hypertension chronic Type 2 diabetes mellitus chr onic Abdominal pain chronic Essential (primary) hypertension chronic Type 2 diabetes mellitus chr onic Carotid artery disease chron ic Diabetes mellitus type 2, co ntrolled, without complications chronic Essential (primary) hypertension chronic [facility] Work Phone: Evaluation note* Diagnosis Onset Date Resolution Status Abdominal pain chronic Essential (primary) hypertension chronic Type 2 diabetes mellitus chr onic Carotid artery disease chron ic Diabetes mellitus type 2, co ntrolled, without complications chronic Essential (primary) hypertension chronic Health care maintenance acut e Essential (primary) hypertension chronic GERD (gastroesophageal reflux disease) chronic Type 2 diabetes mellitus chr onic Type 2 diabetes mellitus [facility] Work Phone: Evaluation note* Diagnosis Onset Date Resolution Status Health care maintenance acut e Essential (primary) hypertension chronic Hyperlipidemia chronic Type 2 diabetes mellitus [facility] Essential (primary) hypertension chronic Hyperlipidemia chronic Type 2 diabetes mellitus [facility] Work Phone: Evaluation note* Diagnosis Onset Date Resolution Status Flu vaccine need acute [facility] Work Phone: Evaluation note* Diagnosis Onset Date Resolution Status Flu vaccine need acute Essential (primary) hypertension chronic GERD (gastroesophageal reflux disease) chronic Hyperlipidemia chronic Osteopenia chronic Type 2 diabetes mellitus chr onic Diabetes mellitus type 2, co ntrolled, without complications chronic Essential (primary) hypertension chronic Hyperlipidemia chronic [facility] Work Phone: Evaluation note* Diagnosis Onset Date Resolution Status Left hip pain acute Low back pain acute Pain in left araya acute Essential (primary) hypertension chronic GERD (gastroesophageal reflux disease) chronic Type 2 diabetes mellitus [facility] Work Phone: Evaluation note* Diagnosis Hiatal hernia- Primary Diaphragmatic hernia without mention of obstruction or gangrene GERD without esophagitis Esophageal reflux [facility] Diagnosis Hiatal hernia- Primary Diaphragmatic hernia without mention of obstruction or gangrene GERD without esophagitis Esophageal reflux Diaphragmatic hernia without obstruction or gangrene Diaphragmatic hernia without mention of obstruction or gangrene Gastro-esophageal reflux disease without esophagitis documented in this encounter [facility]* Diagnosis Hiatal hernia- Primary Diaphragmatic hernia without mention of obstruction or gangrene GERD without esophagitis Esophageal reflux Diaphragmatic hernia without obstruction or gangrene Diaphragmatic hernia without mention of obstruction or gangrene Gastro-esophageal reflux disease without esophagitis Diaphragmatic hernia without obstruction or gangrene Diaphragmatic hernia without mention of obstruction or gangrene Acute bronchiolitis, unspecified [facility]* Diagnosis Hiatal hernia- Primary Diaphragmatic hernia without mention of obstruction or gangrene GERD without esophagitis Esophageal reflux Diaphragmatic hernia without obstruction or gangrene Diaphragmatic hernia without mention of obstruction or gangrene Gastro-esophageal reflux disease without esophagitis Diaphragmatic hernia without obstruction or gangrene Diaphragmatic hernia without mention of obstruction or gangrene Acute bronchiolitis, unspecified documented in this encounter [facility]* Diagnosis Hiatal hernia Diaphragmatic hernia without mention of obstruction or gangrene Diaphragmatic hernia without obstruction or gangrene Diaphragmatic hernia without mention of obstruction or gangrene Gastro-esophageal reflux disease without esophagitis Diaphragmatic hernia without obstruction or gangrene Diaphragmatic hernia without mention of obstruction or gangrene Acute bronchiolitis, unspecified documented in this encounter [facility]* Diagnosis Hiatal hernia- Primary Diaphragmatic hernia without mention of obstruction or gangrene Diaphragmatic hernia without obstruction or gangrene Diaphragmatic hernia without mention of obstruction or gangrene Gastro-esophageal reflux disease without esophagitis Gastroesophageal reflux disease without esophagitis Esophageal reflux Chronic superficial gastritis without bleeding Diaphragmatic hernia without obstruction or gangrene Diaphragmatic hernia without mention of obstruction or gangrene Acute bronchiolitis, unspecified documented in this encounter [facility]* Diagnosis Abdominal pain, unspecified abdominal location- Primary Constipation, unspecified constipation type Diaphragmatic hernia without obstruction or gangrene Diaphragmatic hernia without mention of obstruction or gangrene Acute bronchiolitis, unspecified documented in this encounter [facility]* Diagnosis Hiatal hernia- Primary Diaphragmatic hernia without mention of obstruction or gangrene GERD without esophagitis Esophageal reflux Hiatal hernia Diaphragmatic hernia without mention of obstruction or gangrene Diaphragmatic hernia without obstruction or gangrene Diaphragmatic hernia without mention of obstruction or gangrene Acute bronchiolitis, unspecified documented in this encounter [facility]* Diagnosis Hiatal hernia- Primary Diaphragmatic hernia without mention of obstruction or gangrene GERD without esophagitis Esophageal reflux Hiatal hernia Diaphragmatic hernia without mention of obstruction or gangrene Diaphragmatic hernia without obstruction or gangrene Diaphragmatic hernia without mention of obstruction or gangrene Acute bronchiolitis, unspecified [facility]* Diagnosis Abdominal pain- Primary Abdominal pain, unspecified site Generalized abdominal pain Abdominal pain, generalized Nausea and vomiting, unspecified vomiting type Generalized abdominal pain Abdominal pain, generalized Diaphragmatic hernia without obstruction or gangrene Diaphragmatic hernia without mention of obstruction or gangrene Acute bronchiolitis, unspecified documented in this encounter [facility]* Diagnosis GERD without esophagitis- Primary Esophageal reflux Hiatal hernia Diaphragmatic hernia without mention of obstruction or gangrene Diaphragmatic hernia without obstruction or gangrene Diaphragmatic hernia without mention of obstruction or gangrene Acute bronchiolitis, unspecified documented in this encounter [facility]* Diagnosis Hiatal hernia- Primary Diaphragmatic hernia without mention of obstruction or gangrene Hiatal hernia Diaphragmatic hernia without mention of obstruction or gangrene Gastroesophageal reflux disease without esophagitis Esophageal reflux Hx of hiatal hernia documented in this encounter [facility] note* Diagnosis Encounter for postoperative care- Primary Hiatal hernia Diaphragmatic hernia without mention of obstruction or gangrene GERD without esophagitis Esophageal reflux Oral thrush Candidiasis of mouth documented in this encounter [facility] note* Diagnosis Encounter for postoperative care- Primary Hiatal hernia Diaphragmatic hernia without mention of obstruction or gangrene GERD without esophagitis Esophageal reflux [facility] Work [facility]: Progress note Author Angelica Brown [facility] Note Date/Time November 29, 2024 1 :40pm [facility] [address] [place] [address] OFFICE VISIT Date of Service: 11/29/24 MR#: [id number] Acct: [id number] Patient: SHEYLA RAMIREZ Rep #: [id number] : 1945 Provider: THERESA NURS E Age/Sex: 79/F Location: [facility] Status: Signed Intake Vital Signs 11/21/24 14:24 Height 5 ft 7 in Weight: 157 lb 8 oz BMI 24.6 BP 127/77 H Blood Pressure Location Lt brachial Position Sitting Pulse 70 Pulse Source Monitor Pulse Oximetry (%) 96 Oxygen Delivery Method room air Intake Visit Reasons: flu shot Chief Complaint: flu shot Fiscal Officer Required: No Accompanied by: Self Is patient in pain?: No Allergies Penicillins Allergy (Severe, Verified 11/29/24 13:06) Rash grass pollen Allergy (Intermediate, Verified 11/29/24 13:06) Unknown house dust Allergy (Intermediate, Verified 11/29/24 13:06) Unknown mold Allergy (Intermediate, Verified 11/29/24 13:06) Unknown Seasonal Allergies: Uncoded Allergy (Intermediate, Verified 11/29/24 13:06) NEEDS FOLLOW-UP Sulfa (Sulfonamide Antibiotics) Allergy (Unknown, Verified 11/29/24 13:06) Swelling neomycin Allergy (Verified 11/29/24 13:06) edeema, skin reaction lisinopril Adverse Reaction (Verified 11/29/24 13:06) cough Medications ?Medication ?Instructions ?Recorded ?Confirmed ?Type latanoprost 0.005 % eye drops 1 drp ophthalmic (eye) Q DAY 01/28/17 11/29/24 History blood sugar diagnostic (FreeStyle #90 ea 06/13/2111/16 Rx Precision Leonardo Strips) lancets (Accu-Chek Fastclix Lancet #102 ea 09/12/21 Rx Drum) multivitamin 1 tab PO DAILY 07/07/2211/16 History cholecalciferol (vitamin D3) 1,250 1,250 mcg PO QWEEK #20 caps 01/01/23 11/29/24 Rx mcg (50,000 unit) capsule lansoprazole 15 mg capsule,delayed 15 mg PO QHS 30 day s #30 caps 07/29/23 11/29/24 History release brimonidine 0.2 % eye drops 1 drp ophthalmic (eye) BID 01/05/24 11/29/24 History atorvastatin 10 mg tablet See Rx Instructions .Route 1 03/23/23 11/29/24 Rx .COMPLEX #90 tabs losartan 25 mg tablet 12.5 mg (1/2 x 25 mg) PO QDA Y #90 03/09/24 11/29/24 Rx tabs metformin 500 mg tablet 500 mg PO BID #180 tabs 04/1611/29/24 Rx aspirin 81 mg tablet,delayed 81 mg PO QDAY #90 tabs 11/29/24 Rx release (Adult Aspirin Regimen) FreeStyle Wilfredo 3 Plus Sensor #6 ea 08/08/24 11/29/24 Rx (blood-glucose sensor) blood-glucose,product support technician,cont #1 ea 08/08/24 11/29/24 Rx (FreeStyle Wilfredo 3 [place]) glimepiride 4 mg tablet 4 mg PO BID 3 months #180 ta bs 10/24/24 11/29/24 Rx Novolog FlexPen U-100 Insulin 100 10 unit (0.1 mL) sub cut TID #15 mL 11/21/24 11/29/24 Rx unit/mL (3 mL) subcutaneous (insulin aspart U-100) pen needle, diabetic 32 gauge x #50 ea 11/21/24 Rx insulin glargine 100 unit/mL (3 10 unit (0.1 mL) subcu t QPM #15 mL 11/28/24 11/29/24 Rx mL) subcutaneous pen (Basaglar KwikPen U-100 Insulin) Have you fallen in the past year?: No Nurse's Note: flu immunization given parker patient tolerated well Immunizations Fluad 65yr up(PF)45 mcg(15 mcgx3)/0.5 mL intramuscular syringe Performing Provider: LIVIA Mackey Performing Location: [facility] Administered by: Amy Simpson on 11/29/24 13:09 Dose Route Admin Location Dispensed Lot Number Expiration Date Pack age NDC NDC Radiator Tester 45 mcg IM Left Arm (SQ) 0.5 mL [id number] 06/13/25 [id number] [employer] ([employer]. VIS Given Date VIS Provided VIS Publication Date 11/29/24 Single Vaccine 24 Eligibility Eligibility Date Funding Source Not Applicable Administration Comments: parker injection patient tolerated well Assessment and Plan Assessment and Plan Orders: Orders Influenza Immunization 11/29/24 Z23 - Encounter for immunization Clinical Quality Measures Falls Risk Screening/Assistive Devices Have you fallen in the past year?: No 12/09/24 3068 <Electronically signed by Angelica BHAKTA> Date _ Angelica BHAKTA Cosigner Signature: Date (if applicable) CC: ~ [facility] Work Phone: Reason for referral (narrative)No reason for referral information availableHenderson [facility] [employer] Work Phone: Summary Purpose Family History No Family History Records Found Relationship Condition Age at Onset Recorded Date/T ruba mother Malignant neoplasm of breast Unknown Diabetes mellitus Unknown father Disorder of thyroid Unknown Malignant neoplasm Unknown grandfather Cerebrovascular accident (CVA) Unknown Advance Directives No Advanced Directives Records Found Date Activated Date Inactivated Comments 08/21/2023 9:48 PM 08/25/2023 1:11 PM Date Activated Date Inactivated Comments 08/04/2023 9:45 AM 08/04/2023 1:28 PM Healthcare Agents on File Name Relationship Healthcare Agent Relationshi p Communication Julian Ramirez Brother Health Care Agent Date Activated Date Inactivated Comments 08/04/2023 9:45 AM 08/04/2023 1:28 PM Date Activated Date Inactivated Comments 08/04/2023 9:45 AM 08/04/2023 1:28 PM Healthcare Agents on File Name Relationship Healthcare Agent Relationshi p Communication Julian Volmellissa Brother Health Care Agent Date Activated Date Inactivated Comments 08/21/2023 9:48 PM Healthcare Agents on File Name Relationship Healthcare Agent Relationshi p Communication Julian Ramirez Brother Health Care Agent Healthcare Agents on File Name Relationship Healthcare Agent Relationshi p Communication Julian Volmellissa Brother Health Care Agent Healthcare Agents on File Name Relationship Healthcare Agent Relationshi p Communication Julian Volmellissa Brother Health Care Agent Healthcare Agents on File Name Relationship Healthcare Agent Relationshi p Communication Julian Volmellissa Brother Health Care Agent Date Activated Date Inactivated Comments 09/09/2023 12:27 PM Date Activated Date Inactivated Comments 09/09/2023 5:49 AM 09/09/2023 12:27 PM Date Activated Date Inactivated Comments 08/21/2023 9:48 PM 08/25/2023 1:11 PM Date Activated Date Inactivated Comments 08/04/2023 9:45 AM 08/04/2023 1:28 PM Healthcare Agents on File Name Relationship Healthcare Agent Relationshi p Communication Julian Elizondoer Health Care Agent Date Activated Date Inactivated Comments 09/09/2023 12:27 PM 09/10/2023 5:49 PM Date Activated Date Inactivated Comments 09/09/2023 5:49 AM 09/09/2023 12:27 PM Date Activated Date Inactivated Comments 08/21/2023 9:48 PM 08/25/2023 1:11 PM Date Activated Date Inactivated Comments 08/04/2023 9:45 AM 08/04/2023 1:28 PM Healthcare Agents on File Name Relationship Healthcare Agent Relationshi p Communication Julian Elizondoer Health Care Agent Date Activated Date Inactivated Comments 09/09/2023 12:27 PM 09/10/2023 5:49 PM Healthcare Agents on File Name Relationship Healthcare Agent Relationshi p Communication Julian Elizondoer Health Care Agent Healthcare Agents on File Name Relationship Healthcare Agent Relationshi p Communication [facility] Healthcare Agents on File Name Relationship Healthcare Agent Relationshi p Communication Julian Elizondoer Health Care Agent Healthcare Agents on File Name Relationship Healthcare Agent Relationshi p Communication Julian Ramirez [facility] Chief Complaint and Reason for Visit Chief Complaint 3 M FU 3 M FU Reason for Visit Bilateral impacted c erumen Essential (primary) hypertension Type 2 diabetes mellitus Abdominal pain Essential (primary) hypertension Type 2 diabetes mellitus Chief Complaint 3 M FU 3 M FU [facility]OUNT [facility], DIABETES, 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 CAROTID ARTERY DISEASE Reason for Visit Bilateral impacted c erumen Essential (primary) hypertension Type 2 diabetes mellitus Abdominal pain Essential (primary) hypertension Type 2 diabetes mellitus Carotid artery disease Diabetes mellitus type 2, controlled, without complications Essential (primary) hypertension Chief Complaint 3 M FU [facility], DIABETES, 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 CAROTID ARTERY DISEASE 3 M FU SCREENING/POST RAZIA 3 M FU Reason for Visit Abdominal pain Essential (primary) hypertension Type 2 diabetes mellitus Carotid artery disease Diabetes mellitus type 2, controlled, without complications Essential (primary) hypertension Health care maintenance Essential (primary) hypertension GERD (gastroesophageal reflux disease) Type 2 diabetes mellitus Type 2 diabetes mellitus Chief Complaint 6 M FU 4 M FU SCREENING Reason for Visit Health care maintena nce Essential (primary) hypertension Hyperlipidemia Type 2 diabetes mellitus Essential (primary) hypertension Hyperlipidemia Type 2 diabetes mellitus Chief Complaint SCREENING FLU SHOT Reason for Visit Flu vaccine need Chief Complaint FLU SHOT 6 m fu 6 M FU, RS 10/03 E-ORDER Reason for Visit Flu vaccine need Essential (primary) hypertension GERD (gastroesophageal reflux disease) Hyperlipidemia Osteopenia Type 2 diabetes mellitus Diabetes mellitus type 2, controlled, without complications Essential (primary) hypertension Hyperlipidemia Chief Complaint E-ORDER BODY PAIN Reason for Visit Left hip pain Low back pain Pain in left araya Essential (primary) hypertension GERD (gastroesophageal reflux disease) Type 2 diabetes mellitus Chief Complaint Admit Date 3 M FU April 05, 2024 2:20pm 3 M FU June 15, 2024 1:5 8pm 1 Y FU July 19, 2024 1:50p m Reason for Visit Admit Date Diabetes April 05, 2024 2:20pm Essential (primary) hypertension [id number] 2:20pm Hyperlipidemia April 05, 2024 2:20pm Diabetes June 15, 2024 1:5 8pm Essential (primary) hypertension May 192024 1:58pm GERD (gastroesophageal reflux disease) A pril 2024 1:58pm Hyperlipidemia June 15, 2024 1:5 8pm Carotid artery disease July 19, 2024 1: 50pm Diabetes mellitus type 2, co ntrolled, without complications July 19, 2024 1:50pm Diastolic dysfunction July 19, 2024 1:5 0pm Essential (primary) hypertension July 1:50pm Hyperlipidemia July 19, 2024 1:50p m Chief Complaint Admit Date 3 M FU June 15, 2024 1:5 8pm 1 Y FU July 19, 2024 1:50p m CAD August 01, 2024 12:5 5pm 4 M FU August 04, 2024 2:18 pm Reason for Visit Admit Date Diabetes June 15, 2024 1:5 8pm Essential (primary) hypertension May 192024 1:58pm GERD (gastroesophageal reflux disease) A pril 2024 1:58pm Hyperlipidemia June 15, 2024 1:5 8pm Carotid artery disease July 19, 2024 1: 50pm Diastolic dysfunction July 19, 2024 1:5 0pm Essential (primary) hypertension July 1:50pm Hyperlipidemia July 19, 2024 1:50p m Diabetes mellitus type 2, controlled, wi thout complications July 19, 2024 1:50pm Diabetes August 04, 2024 2:18 pm Essential (primary) hypertension August [id number] 2:18pm Hyperlipidemia August 04, 2024 2:18 pm Thyroid nodule August 04, 2024 2:18 pm Chief Complaint Admit Date 1 Y FU July 19, 2024 1:50p m CAD August 01, 2024 12:5 5pm 4 M FU August 04, 2024 2:18 pm 4 M FU October 24, 2024 12:54pm Reason for Visit Admit Date Carotid artery disease July 19, 2024 1: 50pm Diastolic dysfunction July 19, 2024 1:5 0pm Essential (primary) hypertension July 1:50pm Hyperlipidemia July 19, 2024 1:50p m Diabetes mellitus type 2, controlled, wi thout complications July 19, 2024 1:50pm Diabetes August 04, 2024 2:18 pm Essential (primary) hypertension August 042024 2:18pm Hyperlipidemia August 04, 2024 2:18 pm Thyroid nodule August 04, 2024 2:18 pm Chief Complaint Admit Date 1 Y FU July 19, 2024 1:50p m CAD August 01, 2024 12:5 5pm 4 M FU August 04, 2024 2:18 pm 4 M FU October 24, 2024 12:54pm Breast Cancer Screening November 03, 2024 1:05pm Reason for Visit Admit Date Carotid artery disease July 19, 2024 1: 50pm Diastolic dysfunction July 19, 2024 1:5 0pm Essential (primary) hypertension July 1:50pm Hyperlipidemia July 19, 2024 1:50p m Diabetes mellitus type 2, co ntrolled, without complications July 19, 2024 1:50pm Diabetes August 04, 2024 2:18 pm Essential (primary) hypertension August [id number] 2:18pm Hyperlipidemia August 04, 2024 2:18 pm Thyroid nodule August 04, 2024 2:18 pm Osteoarthritis October 24, 2024 12:54pm Type 2 diabetes mellitus October 24, 2024 12:54pm Essential (primary) hypertension [facility] 2024 12:54pm GERD (gastroesophageal reflux disease) [facility] 2024 12:54pm Hyperlipidemia October 24, 2024 12:54pm Chief Complaint Admit Date CAD August 01, 2024 12:5 5pm 4 M FU August 04, 2024 2:18 pm 4 M FU October 24, 2024 12:54pm Breast Cancer Screening November 03, 2024 1:05pm Reason for Visit Admit Date Diabetes August 04, 2024 2:18 pm Essential (primary) hypertension August [id number] 2:18pm Hyperlipidemia August 04, 2024 2:18 pm Thyroid nodule August 04, 2024 2:18 pm Osteoarthritis October 24, 2024 12:54pm Type 2 diabetes mellitus October 24, 2024 12:54pm Essential (primary) hypertension [facility] 2024 12:54pm GERD (gastroesophageal reflux disease) [facility] 2024 12:54pm Hyperlipidemia October 24, 2024 12:54pm Chief Complaint Admit Date CAD August 01, 2024 12:5 5pm 4 M FU August 04, 2024 2:18 pm 4 M FU October 24, 2024 12:54pm Breast Cancer Screening November 03, 2024 1:05pm 4 M FU November 21, 2024 2: 20pm Reason for Visit Admit Date Diabetes August 04, 2024 2:18 pm Essential (primary) hypertension August [id number] 2:18pm Hyperlipidemia August 04, 2024 2:18 pm Thyroid nodule August 04, 2024 2:18 pm Osteoarthritis October 24, 2024 12:54pm Type 2 diabetes mellitus October 24, 2024 12:54pm Essential (primary) hypertension [facility] 2024 12:54pm GERD (gastroesophageal reflux disease) [facility] 2024 12:54pm Hyperlipidemia October 24, 2024 12:54pm Type 2 diabetes mellitus November 21 2:20pm Thyroid nodule November 21, 2024 2: 20pm Chief Complaint Admit Date 4 M FU October 24, 2024 12:54pm Breast Cancer Screening November 03, 2024 1:05pm 4 M FU November 21, 2024 2: 20pm flu shot November 29, 2024 1 2:56pm Reason for Visit Admit Date Osteoarthritis October 24, 2024 12:54pm Essential (primary) hypertension Septemb er 2024 12:54pm GERD (gastroesophageal reflux disease) S eptember 2024 12:54pm Hyperlipidemia October 24, 2024 12:54pm Type 2 diabetes mellitus October 24, 2024 12:54pm Abdominal pain November 21, 2024 2: 20pm Essential (primary) hypertension November 21, 2024 2:20pm Hyperlipidemia November 21, 2024 2: 20pm Thyroid nodule November 21, 2024 2: 20pm Type 2 diabetes mellitus November 21 2:20pm Additional Source Comments INFORMATION SOURCE (unrecogn ized section and content) DATE CREATED AUTHOR 01/02/2020 [place] [employer] ([place]) DATE CREATED AUTHOR AUTHOR'S ORGANIZ ATION 02/27/2024 [facility] DATE CREATED AUTHOR AUTHOR'S ORGANIZ ATION 12/21/2024 [facility] Goals (unrecognized section and content) Goals may be documented in a n alternate sectionGoals may be documented in an alternate sectionGoals may be documented in an alternate sectionGoals may be documented in an alternate sectionGoals may be documented in an alternate sectionGoals may be documented in an alternate sectionGoals may be documented in an alternate sectionGoals may be documented in an alternate sectionGoals may be documented in an alternate sectionGoals may be documented in an alternate sectionGoals may be documented in an alternate sectionGoals may be documented in an alternate sectionGoals may be documented in an alternate sectionGoals may be documented in an alternate sectionGoals may be documented in an alternate sectionGoals may be documented in an alternate sectionGoals may be documented in an alternate section Care Teams (unrecognized sec tion and content) Team Status: Active Member Role Status Dates Dr. Lena Thorne MD Primary Care Provider Active Team Status: Inactive Member Role Status Dates Dr. Lena Thorne MD Primary Care Provider Active Start: June 15, 2024 End: June 15, 2024 Dr. Lena Thorne MD Attending Provider Active Start: June 15, 2024 End: June 15, 2024 Dr. Lena Thorne MD Referring Provider Active Start: June 15, 2024 End: June 15, 2024 Team Status: Inactive Member Role Status Dates Dr. Lena Thorne MD Primary Care Provider Active Start: July 19, 2024 End: July 19, 2024 Dr. Lena Thorne MD Referring Provider Active Start: July 19, 2024 End: July 19, 2024 Dr. Deanna Fregoso MD Attending Provider Active Start: July 19, 2024 End: July 19, 2024 Team Status: Active Member Role Status Dates Dr. Lena Thorne MD Primary Care Provider Active Start: August 01, 2024 Alcira Angelo PA, PA Attending Provider Active Start: August 01, 2024 Alcira Angelo PA, PA Referring Provider Active Start: August 01, 2024 Team Status: Inactive Member Role Status Dates Dr. Lena Thorne MD Primary Care Provider Active Start: August 04, 2024 End: August 04, 2024 Dr. Lena Thorne MD Referring Provider Active Start: August 04, 2024 End: August 04, 2024 Dr. Sylvester Bhakta MD Attending Provider Active Sta rt: August 04, 2024 End: August 04, 2024 Team Status: Active Member Role Status Dates Dr. Lena Thorne MD Family Provider Active Dr. Lena Thorne MD Primary Care Provider Active Team Status: Inactive Member Role Status Dates Dr. Lena Thorne MD Primary Care P rosamder, Attending Provider, Referring Provider Active Team Status: Inactive Member Role Status Dates Dr. Lena Thorne MD Primary Care Provider, Refer ring Provider Active Dr. Sylvester Bhakta MD Attending Provider Active Team Status: Inactive Member Role Status Dates Dr. Lena Thorne MD Primary Care Provider Active Dr. Sylvester Bhakta MD Attending Provider Active Team Status: Inactive Member Role Status Dates Dr. Lena Thorne MD Primary Care Provider Active Dr. Sylvester Bhakta MD Attending Provider, Referring Provi curtis Active Controlled [employer] Relationship Specialty Start Date End Date Lena Thorne [address] [facility] [address] [place] [phone] PCP - General Internal Medicine 06/02/23 Controlled [employer] Relationship Specialty Start Date End Date BassemgalloMissydonta Damian [address] [place] [phone] PCP - General Internal Medicine 06/02/23 Chandana Batista [address] [place] [address] Gastroenterology 06/26/23 Controlled [employer] Relationship Specialty Start Date End Date Bassemgallo Rubennatidonta Damian [address] [place] [phone] PCP - General Internal Medicine 06/02/23 Chandana Batista [address] [place] [address] Gastroenterology 06/26/23 Controlled [employer] Relationship Specialty Start Date End Date Bassemgallo Rubennavin Salgado [address] [place] [phone] PCP - General Internal Medicine 06/02/23 Chandana Batista [address] [place] [address] Gastroenterology 06/26/23 Controlled [employer] Relationship Specialty Start Date End Date BassemgalloLena [address] [place] [phone] PCP - General Internal Medicine 06/02/23 Chandana Batista [address] [place] [address] Gastroenterology 06/26/23 Controlled [employer] Relationship Specialty Start Date End Date Lena Thorne [address] [place] [address] PCP - General Internal Medicine 06/02/23 Chandana Batista [address] [place] [address] Gastroenterology 06/26/23 Controlled [employer] Relationship Specialty Start Date End Date Lena Thorne [address] [place] [phone] PCP - General Internal Medicine 06/02/23 Chandana Batista [address] [place] [address] Gastroenterology 06/26/23 Controlled [employer] Relationship Specialty Start Date End Date Lena Thorne [address] [place] [phone] PCP - General Internal Medicine 06/02/23 Chandana Batista [address] [place] [address] Gastroenterology 06/26/23 Controlled [employer] Relationship Specialty Start Date End Date Lena Thorne [address] [place] [phone] PCP - General Internal Medicine 06/02/23 Chandana Batista [address] [place] [phone] Gastroenterology 06/26/23 Controlled [employer] Relationship Specialty Start Date End Date BassemLena holder [address] [place] [address] PCP - General Internal Medicine 06/02/23 Chandana Batista [address] [place] [phone] Gastroenterology 06/26/23 Controlled [employer] Relationship Specialty Start Date End Date Bassembreannapipe Lena Salgado [address] [place] [address] PCP - General Internal Medicine 06/02/23 Chandana Batista [address] [place] [address] Gastroenterology 06/26/23 Controlled [employer] Relationship Specialty Start Date End Date Bassemgallo Lena Salgado [address] [place] [address] PCP - General Internal Medicine 06/02/23 Chandana Batista [address] [place] [phone] Gastroenterology 06/26/23 Controlled [employer] Relationship Specialty Start Date End Date Bassemgallo Lena Salgado [address] [place] [address] PCP - General Internal Medicine 06/02/23 Chandana Batista [address] [place] [address] Gastroenterology 06/26/23 Controlled [employer] Relationship Specialty Start Date End Date Lena Thorne [address] [place] [phone] PCP - General Internal Medicine 06/02/23 Chandana Batista [address] [place] [address] Gastroenterology 06/26/23 Controlled [employer] Relationship Specialty Start Date End Date Lena Thorne [address] [place] [phone] PCP - General Internal Medicine 06/02/23 Chandana Batista [address] [place] [address] Gastroenterology 06/26/23 Controlled [employer] Relationship Specialty Start Date End Date Lena Thorne [address] [place] [phone] PCP - General Internal Medicine 06/02/23 Chandana Batista [address] [place] [address] Gastroenterology 06/26/23 Controlled [employer] Relationship Specialty Start Date End Date Lena Thorne [address] [place] [address] PCP - General Internal Medicine 06/02/23 Chandana Batista [address] [place] [address] Gastroenterology 06/26/23 Controlled [employer] Relationship Specialty Start Date End Date BassemLena holder [address] [place] [address] PCP - General Internal Medicine 06/02/23 Chandana Batista [address] [place] [address] Gastroenterology 06/26/23 Autumn Worley, STEPHENIE Registered Nurse Hospital Insurance Representative Manager 08/27/23 Vitor Camarillo [address] [place] [address] Cardiology 08/27/23 Controlled [employer] Relationship Specialty Start Date End Date BassemLena holder [address] [place] [address] PCP - General Internal Medicine 06/02/23 Chandana Batista [address] [place] [address] Gastroenterology 06/26/23 Autumn Worley, RN Registered Nurse Hospital Insurance Representative Manager 08/27/23 Vitor Camarillo [address] [place] [address] Cardiology 08/27/23 Controlled [employer] Relationship Specialty Start Date End Date Lena Thorne Damian [address] [place] [address] PCP - General Internal Medicine 06/02/23 Chandana Batista [address] [place] [address] Gastroenterology 06/26/23 Autumn Worley, RN Registered Nurse Hospital Insurance Representative Manager 08/27/23 Vitor Camarillo [address] [place] [address] Cardiology 08/27/23 Controlled [employer] Relationship Specialty Start Date End Date Miriam Thornejames Salgado [address] [place] [address] PCP - General Internal Medicine 06/02/23 Chandana Batista [address] [place] [address] Gastroenterology 06/26/23 Autumn Worley, RN Registered Nurse Hospital Insurance Representative Manager 08/27/23 Vitor Camarillo [address] [place] [address] Cardiology 08/27/23 Controlled [employer] Relationship Specialty Start Date End Date Miriam Thornejames Salgado [address] [place] [address] PCP - General Internal Medicine 06/02/23 Chandana Batista MD [address] [place] [phone] Gastroenterology 06/26/23 Autumn Worley, RN Registered Nurse Hospital Insurance Representative Manager 08/27/23 Vitor Camarillo [address] [place] [address] Cardiology 08/27/23 Controlled [employer] Relationship Specialty Start Date End Date Lena Thorne [address] [place] [phone] PCP - General Internal Medicine 06/02/23 Chandana Batista MD [address] [place] [phone] Gastroenterology 06/26/23 Autumn Worley, STEPHENIE Registered Nurse Hospital Insurance Representative Manager 08/27/23 Vitor Camarillo [address] [place] [address] Cardiology 08/27/23 Controlled [employer] Relationship Specialty Start Date End Date Lena Thorne [address] [place] [phone] PCP - General Internal Medicine 06/02/23 Chandana Batista MD [address] [place] [address] Gastroenterology 06/26/23 Autumn Worley, RN Registered Nurse Hospital Insurance Representative Manager 08/27/23 Vitor Camarillo [address] [place] [address] Cardiology 08/27/23 Controlled [employer] Relationship Specialty Start Date End Date Lena Thorne [address] [place] [address] PCP - General Internal Medicine 06/02/23 Chandana Batista MD [address] [place] [address] Gastroenterology 06/26/23 Autumn Worley, RN Registered Nurse Hospital Insurance Representative Manager 08/27/23 Rabia, Vitor [address] [place] [address] Cardiology 08/27/23 Controlled [employer] Relationship Specialty Start Date End Date Lena Thorne [address] [place] [address] PCP - General Internal Medicine 06/02/23 Chandana Batista MD [address] [place] [phone] Gastroenterology 06/26/23 Autumn Worley, STEPHENIE Registered Nurse Hospital Insurance Representative Manager 08/27/23 Rabia, [place] [address] [place] [address] Cardiology 08/27/23 Team Status: Inactive Member Role Status Dates Dr. Lena Thorne MD Primary Care Provider Active Start: April 05, 2024 End: April 05, 2024 Dr. Lena Thorne MD Referring Provider Active Start: April 05, 2024 End: April 05, 2024 Dr. Sylvester Bhakta MD Attending Provider Active Sta rt: April 05, 2024 End: April 05, 2024 Team Status: Inactive Member Role Status Dates Dr. Lena Thorne MD Primary Care Provider Active Start: August 01, 2024 End: August 01, 2024 Alcira SOLANO PA Attending Provider Active Start: August 01, 2024 End: August 01, 2024 Alcira SOLANO PA Referring Provider Active Start: August 01, 2024 End: August 01, 2024 Team Status: Active Member Role/Relationship Status Dates Dr. Lena Thorne MD Primary Care Provider Active Team Status: Inactive Member Role/Relationship Status Dates Dr. Lena Thorne MD Primary Care Provider Active Start: July 19, 2024 End: July 19, 2024 Dr. Lena Thorne MD Referring Provider Active Start: July 19, 2024 End: July 19, 2024 Dr. Deanna Fregoso MD Attending Provider Active Start: July 19, 2024 End: July 19, 2024 Team Status: Inactive Member Role/Relationship Status Dates Dr. Lena Thoren MD Primary Care Provider Active Start: August 01, 2024 End: August 01, 2024 Alcira SOLANO PA Attending Provider Active Start: August 01, 2024 End: August 01, 2024 Alcira SOLANO PA Referring Provider Active Start: August 01, 2024 End: August 01, 2024 Team Status: Active Member Role/Relationship Status Dates Dr. Lena Thorne MD Primary Care Provider Active Start: August 01, 2024 Dr. Carlos Foote MD Attending Provider Active S tart: August 01, 2024 Alcira SOLANO PA Referring Provider Active Start: August 01, 2024 Team Status: Inactive Member Role/Relationship Status Dates Dr. Lena Thorne MD Primary Care Provider Active Start: August 04, 2024 End: August 04, 2024 Dr. Lena Thorne MD Referring Provider Active Start: August 04, 2024 End: August 04, 2024 Dr. Sylvester Bhakta MD Attending Provider Active Sta rt: August 04, 2024 End: August 04, 2024 Team Status: Active Member Role/Relationship Status Dates Dr. Lena Thorne MD Primary Care Provider Active Start: October 21, 2024 Dr. Lena Thorne MD Attending Provider Active Start: October 21, 2024 Dr. Lena Thorne MD Referring Provider Active Start: October 21, 2024 Team Status: Inactive Member Role/Relationship Status Dates Dr. Lena Thorne MD Primary Care Provider Active Start: October 24, 2024 End: October 24, 2024 Dr. Lena Thorne MD Attending Provider Active Start: October 24, 2024 End: October 24, 2024 Dr. Lena Thorne MD Referring Provider Active Start: October 24, 2024 End: October 24, 2024 Team Status: Active Member Role/Relationship Status Dates Dr. Lena Thorne MD Primary Care Provider Active Start: October 24, 2024 Dr. Lena Thorne MD Attending Provider Active Start: October 24, 2024 Dr. Lena Thorne MD Referring Provider Active Start: October 24, 2024 Team Status: Active Member Role/Relationship Status Dates Dr. Lena Thorne MD Primary care physician Activ e Team Status: Inactive Member Role/Relationship Status Dates Dr. Lena Thorne MD Primary care physician Activ e Start: July 19, 2024 End: July 19, 2024 Dr. Lena Thorne MD Referring Provider Active Start: July 19, 2024 End: July 19, 2024 Dr. Deanna Fregoso MD Attending physician Active Start: July 19, 2024 End: July 19, 2024 Team Status: Inactive Member Role/Relationship Status Dates Dr. Lena Thorne MD Primary care physician Activ e Start: August 01, 2024 End: August 01, 2024 Alcira SOLANO PA Attending physician Active Start: August 01, 2024 End: August 01, 2024 Alcira SOLANO PA Referring Provider Active Start: August 01, 2024 End: August 01, 2024 Team Status: Active Member Role/Relationship Status Dates Dr. Lena Thorne MD Primary care physician Activ e Start: August 01, 2024 Dr. Carlos Foote MD Attending physician Active Start: August 01, 2024 Alcira Angelo PA, PA Referring Provider Active Start: August 01, 2024 Team Status: Inactive Member Role/Relationship Status Dates Dr. Lena Thorne MD Primary care physician Activ e Start: August 04, 2024 End: August 04, 2024 Dr. Lena Thorne MD Referring Provider Active Start: August 04, 2024 End: August 04, 2024 Dr. Sylvester Bhakta MD Attending physician Active St art: August 04, 2024 End: August 04, 2024 Team Status: Inactive Member Role/Relationship Status Dates Dr. Lena Thorne MD Primary care physician Activ e Start: October 21, 2024 End: October 21, 2024 Dr. Lena Thorne MD Attending physician Active Start: October 21, 2024 End: October 21, 2024 Dr. Lena Thorne MD Referring Provider Active Start: October 21, 2024 End: October 21, 2024 Team Status: Inactive Member Role/Relationship Status Dates Dr. Lena Thorne MD Primary care physician Activ e Start: October 24, 2024 End: October 24, 2024 Dr. Lena Thorne MD Attending physician Active Start: October 24, 2024 End: October 24, 2024 Dr. Lena Thorne MD Referring Provider Active Start: October 24, 2024 End: October 24, 2024 Team Status: Inactive Member Role/Relationship Status Dates Dr. Lena Thorne MD Primary care physician Activ e Start: October 24, 2024 End: October 24, 2024 Dr. Lena Thorne MD Attending physician Active Start: October 24, 2024 End: October 24, 2024 Dr. Lena Thorne MD Referring Provider Active Start: October 24, 2024 End: October 24, 2024 Team Status: Active Member Role/Relationship Status Dates Dr. Lena Thorne MD Primary care physician Activ e Start: November 03, 2024 Dr. Lena Thorne MD Attending physician Active Start: November 03, 2024 Dr. Lena Thorne MD Referring Provider Active Start: November 03, 2024 Team Status: Inactive Member Role/Relationship Status Dates Dr. Lena Thorne MD Primary care physician Activ e Start: August 01, 2024 End: August 01, 2024 Alcira SOLANO PA Attending physician Active Start: August 01, 2024 End: August 01, 2024 Alcira SOLANO PA Referring Provider Active Start: August 01, 2024 End: August 01, 2024 Team Status: Active Member Role/Relationship Status Dates Dr. Lena Thorne MD Primary care physician Activ e Start: August 01, 2024 Dr. Carlos Foote MD Attending physician Active Start: August 01, 2024 Alcira SOLANO PA Referring Provider Active Start: August 01, 2024 Team Status: Inactive Member Role/Relationship Status Dates Dr. Lena Thorne MD Primary care physician Activ e Start: August 04, 2024 End: August 04, 2024 Dr. Lena Thorne MD Referring Provider Active Start: August 04, 2024 End: August 04, 2024 Dr. Sylvester Bhakta MD Attending physician Active St art: August 04, 2024 End: August 04, 2024 Team Status: Inactive Member Role/Relationship Status Dates Dr. Lena Thorne MD Primary care physician Activ e Start: October 21, 2024 End: October 21, 2024 Dr. Lena Thorne MD Attending physician Active Start: October 21, 2024 End: October 21, 2024 Dr. Lena Thorne MD Referring Provider Active Start: October 21, 2024 End: October 21, 2024 Team Status: Inactive Member Role/Relationship Status Dates Dr. Lena Thorne MD Primary care physician Activ e Start: October 24, 2024 End: October 24, 2024 Dr. Lena Thorne MD Attending physician Active Start: October 24, 2024 End: October 24, 2024 Dr. Lena Thorne MD Referring Provider Active Start: October 24, 2024 End: October 24, 2024 Team Status: Inactive Member Role/Relationship Status Dates Dr. Lena Thorne MD Primary care physician Activ e Start: November 03, 2024 End: November 03, 2024 Dr. Lena Thorne MD Attending physician Active Start: November 03, 2024 End: November 03, 2024 Dr. Lena Thorne MD Referring Provider Active Start: November 03, 2024 End: November 03, 2024 Team Status: Inactive Member Role/Relationship Status Dates Dr. Lena Thorne MD Primary care physician Activ e Start: November 21, 2024 End: November 21, 2024 Dr. Lena Thorne MD Referring Provider Active Start: November 21, 2024 End: November 21, 2024 Dr. Sylvester Bhakta MD Attending physician Active St art: November 21, 2024 End: November 21, 2024 Team Status: Active Member Role/Relationship Status Dates Dr. Lena Thorne MD Primary care physician Activ e Start: November 21, 2024 Dr. Sylvester Bhakta MD Attending physician Active St art: November 21, 2024 Dr. Sylvester Bhakta MD Referring Provider Active Sta rt: November 21, 2024 Team Status: Inactive Member Role/Relationship Status Dates Dr. Lena Thorne MD Primary care physician Activ e Start: October 21, 2024 End: October 21, 2024 Dr. Lena Thorne MD Attending physician Active Start: October 21, 2024 End: October 21, 2024 Dr. Lena Thorne MD Referring Provider Active Start: October 21, 2024 End: October 21, 2024 Team Status: Inactive Member Role/Relationship Status Dates Dr. Lena Thorne MD Primary care physician Activ e Start: October 24, 2024 End: October 24, 2024 Dr. Lena Thorne MD Attending physician Active Start: October 24, 2024 End: October 24, 2024 Dr. Lena Thorne MD Referring Provider Active Start: October 24, 2024 End: October 24, 2024 Team Status: Inactive Member Role/Relationship Status Dates Dr. Lena Thorne MD Primary care physician Activ e Start: October 24, 2024 End: October 24, 2024 Dr. Lena Thorne MD Attending physician Active Start: October 24, 2024 End: October 24, 2024 Dr. Lena Thorne MD Referring Provider Active Start: October 24, 2024 End: October 24, 2024 Team Status: Inactive Member Role/Relationship Status Dates Dr. Lena Thorne MD Primary care physician Activ e Start: November 03, 2024 End: November 03, 2024 Dr. Lena Thorne MD Attending physician Active Start: November 03, 2024 End: November 03, 2024 Dr. Lena Thorne MD Referring Provider Active Start: November 03, 2024 End: November 03, 2024 Team Status: Inactive Member Role/Relationship Status Dates Dr. Lena Thorne MD Primary care physician Activ e Start: November 21, 2024 End: November 21, 2024 Dr. Lena Thorne MD Referring Provider Active Start: November 21, 2024 End: November 21, 2024 Dr. Sylvester Bhakta MD Attending physician Active St art: November 21, 2024 End: November 21, 2024 Team Status: Inactive Member Role/Relationship Status Dates Dr. Lena Thorne MD Primary care physician Activ e Start: November 21, 2024 End: November 21, 2024 Dr. Sylvester Bhakta MD Attending physician Active St art: November 21, 2024 End: November 21, 2024 Dr. Sylvester Bhakta MD Referring Provider Active Sta rt: November 21, 2024 End: November 21, 2024 Team Status: Inactive Member Role/Relationship Status Dates Dr. Lena Thorne MD Primary care physician Activ e Start: November 29, 2024 End: November 29, 2024 Dr. Lena Thorne MD Referring Provider Active Start: November 29, 2024 End: November 29, 2024 LIVIA Mackey Attending physician Active Start: November 29, 2024 End: November 29, 2024 Reason for Visit (unrecogniz ed section and content) Reason Onset Date Comments Results 06/02/2023 Reason Comments New Patient [facility] Specialty Diagnoses / Procedures Referred By Contac t Referred To Contact General Surgery Diagnoses Diaphragmatic hernia without obstruction or gangrene Procedures MA ABDOMEN WALL SURG PROC UNLISTED Chandana Batista [address] [place] [address] Julian Kruse MD [address] [facility] [address] [place] [address] Referral ID Status Reason Start Date Expiration Date Visits Re quested Visits Authorized [id number] Closed 06/02/2023 12/02/2023 1 1 Specialty Diagnoses / Procedures Referred By Tawana t Referred To Contact Diagnoses Diaphragmatic hernia without obstruction or gangrene Gastro-esophageal reflux disease without esophagitis Procedures MA EGD TRANSORAL BIOPSY SINGLE/MULTIPLE ESOPHAGOGASTRODUODENOSCOPY WITH BIOPSY Julian Kruse MD [address] [facility] [address] [place] [address] [facility] [address] [place] [phone] Referral ID Status Reason Start Date Expiration Date Visits Re quested Visits Authorized [id number] 1 1 Reason Comments Abdominal Pain Pt walked in through triage c/o mid ABD pain since 08/05. Pt states HX of SBO. Pt states nausea but denies vomiting. Pt A&OX4. Reason Comments Abdominal Pain Patient was seen in ER yesterday where she was told she should stay for possible bowel obstruction, she decided to leave because she felt better but is now back with Abdominal pain Specialty Diagnoses / Procedures Referred By Tawana perez Referred To Contact Diagnoses Generalized abdominal pain Nausea and vomiting, unspecified vomiting type Procedures . Arsalan Swenson MD [address] [place] [address] [facility] [facility] [address] [place] [address] Referral ID Status Reason Start Date Expiration Date Visits Re quested Visits Authorized [id number] 1 Reason Onset Date Comments Appointment 08/25/2023 Reason Comments Follow-up F/U -pre op, HH *car diac clearance approved Reason Onset Date Comments Transitional Care Management Outreach 09/04/2023 Specialty Diagnoses / Procedures Referred By Tawana perez Referred To Contact Diagnoses Diaphragmatic hernia without obstruction or gangrene Acute bronchiolitis, unspecified Procedures MA LAPS RPR PARAESPHGL HRNA INCL FUNDPLSTY W/MESH MA EGD TRANSORAL BIOPSY SINGLE/MULTIPLE LAPAROSCOPIC HIATAL HERNIA REPAIR, WITH MESH, WITH POSTERIOR FUNDOPLICATION, ESOPHAGOGASTRODUODENOSCOPY WITH BIOPSY, POSSIBLE OPEN Julian Kruse MD [address] [facility] [address] [place] [address] [facility] [address] [facility] [address] [place] [address] Referral ID Status Reason Start Date Expiration Date Visits Re quested Visits Authorized [id number] 1 1 Reason Onset Date Comments OTHER 08/24/2023 Reason Comments Post-op POST OP JZ Reason Comments Post-op 09/02/2023 JZ Continuous Active and Recently Administ ered Medications (unrecognized section and content) Medication Order 08/02/2023 08/03/2023 08/04/2023 sodium chloride 0.9 % infusion 100 mL/hr, IntraVENous, Continuous, Starting on Thu08/04/23 at 1000, Preprocedure 1040 (New Bag - Prov ider: SANTI Terrazas CRNA)1048 (Anesthesia Volume Adjustment - Provider: SANTI Terrazas CRNA) Scheduled Medication Order 08/18/2023 08/19/2023 08/20/2023 ondansetron (Zofran) injection 4 mg (COMPLETED) 4 mg, IntraVENous, Once, On Urszula 08/20/23 at 0740, For 1 dose 0747 (Given - Provid er: Kandy Perea RN) sodium chloride 0.9 % bolus 1,000 mL (COMPLETED) 1,000 mL, IntraVENous, at 1,000 mL/hr, Administer over 1 Hours, Once, On Urszula 08/20/23 at 0740, For 1 dose 0747 (New Bag - Prov ider: Kandy Perea RN)0847 (Stopped - Provider: Kandy Perea RN) sodium chloride 0.9 % bolus 1,000 mL (COMPLETED) 1,000 mL, IntraVENous, at 1,000 mL/hr, Administer over 1 Hours, Once, On Urszula 08/20/23 at 0950, For 1 dose 1004 (New Bag - Prov ider: Kandy Perea RN)1104 (Stopped - Provider: Kandy Perea RN) PRN Medication Order 08/18/2023 08/19/2023 08/20/2023 iopamidol (Isovue-370) 76 % injection 75 mL (COMPLETED) 75 mL, IntraVENous, IMG once PRN, contrast, Starting on Urszula 08/20/23 at 0831, For 1 dose 0836 (Given - Provid er: Niesha Cartwright, RT (R)(CT)) Scheduled Medication Order 08/23/2023 08/24/2023 08/25/2023 atorvastatin (Lipitor) tablet 10 mg 10 mg, Oral, Daily, First dose on 08/22/23 at 0900 0918 (Given - Provider: Yaneli Vann RN) 2100 (Given - Provider: Jeannine Palafox RN - Comment: pt states she normally takes in the evening) 0748 (Given - Provider: Calos Hennessy RN) bisacodyl (Dulcolax) suppository 10 mg 10 mg, Rectal, Daily, First dose on Thu08/24/23 at 0900 0729 (Given - Provider: Yaneli Vann RN) 0748 (Not Given - Provider: Calos Hennessy RN - Reason: Patient/family refused) brimonidine (AlphaGAN) 0.2 % ophthalmic solution 1 drop 1 drop, Both Eyes, 2 times daily, First dose on Thu08/21/23 at 2200 0918 (Given - Provider: Yaneli Vann RN)2102 (Given - Provider: Jeannine Palafox RN) 0730 (Given - Provider: Yaneli Vann RN)2100 (Given - Provider: Jeannine Palafox RN) 0746 (Given - Provider: Calos Hennessy RN) Insulin Lispro (Humalog) injection 0-6 Units 0-6 Units, SubCUTAneous, 3 times daily with meals, First dose on 08/22/23 at 1700, Low Dose Correction Algorithm Glucose: Dose: LESS than 139 No Insulin 140-199 1 Unit 200-249 2 Units 250-299 3 Units 300-349 4 Units 350-400 5 Units Above 400 6 Units 0800 (Not Given - Provider: Yaneli Vann RN - Reason: Order parameters not met)1200 (Not Given - Provider: Yaneli Vann RN - Reason: Order parameters not met)1857 (Given - Provider: Yaneli Vann RN) 0728 (Not Given - Provider: Yaneli Vann RN - Reason: Order parameters not met)1305 (Given - Provider: Carmen Goff, RN)1700 (Not Given - Provider: Carmen Goff RN - Reason: Contraindicated - Comment: bgt [phone]) 0800 (Not Given - Provider: Calos Hennessy RN - Reason: Order parameters not met)1200 (Canceled Entry - Provider: Automatic Discharge Provider - Comment: Automatically canceled at discontinue of medication order) lansoprazole (Prevacid SoluTab) disintegrating tablet 30 mg 30 mg, Oral, Daily before breakfast, First dose (after last modification) on 08/22/23 at 0645, Non-formulary medication. Patient supplied. Verified by pharmacist on 08/22/23 - Giovany HuntD. Do not crush or break., Drug Name: lansoprazole, Form: tablet , Length of Therapy: Indefinite, How soon needed? (normally 72 hrs needed to procure): 0-24 hrs, Reason for Non-Formulary: home med 0600 (Given - Provider: Luis Walker RN) 0556 (Given - Provider: Jeannine Palafox RN) 0617 (Given - Provider: Jeannine Palafox RN) latanoprost (Xalatan) 0.005 % ophthalmic solution 1 drop 1 drop, Both Eyes, Nightly, First dose on Thu08/21/23 at 2200 2046 (Given - Provider: Jeannine Palafox RN) 2100 (Given - Provider: Jeannine Palafox RN) losartan (Cozaar) tablet 25 mg 25 mg, Oral, Daily, First dose on 08/22/23 at 0900 0918 (Given - Provider: Yaneli Vann RN) 0729 (Given - Provider: Yaneli Vann RN) 0747 (Given - Provider: Calos Hennessy RN) magnesium hydroxide (Milk of Magnesia) 400 MG/5ML suspension 30 mL 30 mL, Oral, Daily, First dose on Thu08/24/23 at 1700, Follow dose with 8 oz of water. 1714 (Given - Provider: Carmen Goff RN) 0749 (Not Given - Provider: Calos Hennessy, RN - Reason: Patient/family refused) polyethylene glycol (PEG) 3350 (Miralax) packet 17 g 17 g, Oral, Daily, First dose on Thu08/23/23 at 0900 0918 (Given - Provider: Yaneli Vann RN) 0727 (Given - Provider: Yaneli Vann RN) 0747 (Given - Provider: Calos Hennessy RN) polyethylene glycol (PEG) 3350 (Miralax) packet 17 g (COMPLETED) 17 g, Oral, Once, On Thu08/23/23 at 2100, For 1 dose 2101 (Given - Provider: Jeannine Palafox, STEPHENIE) PRN Medication Order 08/23/2023 08/24/2023 08/25/2023 acetaminophen (Tylenol) suppository 650 mg(Linked Group 1) 650 mg, Rectal, Every 6 hours PRN, mild pain (1-3), fever, For temp greater than 100.4 F (38 C), Starting on Thu08/21/23 at 2147, Administer if oral route cannot be used. Maximum dose of acetaminophen is 4000 mg from all sources in 24 hours. acetaminophen (Tylenol) tablet 650 mg(Linked Group 1) 650 mg, Oral, Every 6 hours PRN, mild pain (1-3), fever, For temp greater than 100.4 F (38 C), Starting on Thu08/21/23 at 2147, Maximum dose of acetaminophen is 4000 mg from all sources in 24 hours. dextrose 5 % infusion 100 mL/hr, IntraVENous, PRN, Blood sugar less than 70mg/dL, Starting on Thu08/21/23 at 2226, Start infusion following administration of dextrose 50% or glucagon. dextrose 50 % solution 12.5 g 12.5 g, IntraVENous, PRN, low blood sugar, Blood glucose less than 70 mg/dL and patient NOT ALERT or NPO., Starting on Thu08/21/23 at 2226, If patient does not respond within 5 minutes, repeat dose x1. Start D5W at 100 mL/hour until ordering provider can be reached. Repeat blood glucose in 15 minutes. If blood glucose is less than 70 mg/dL, repeat treatment and recheck blood glucose in 15 minutes x2. If using Glucostabilizer, dose as instructed per system. glucagon (human recombinant) injection 1 mg 1 mg, IntraMUSCular, PRN, low blood sugar, Blood glucose less than 70 mg/dL and patient NOT ALERT or NPO and does not have IV access., Starting on Thu08/21/23 at 2226, After administration, attempt intravenous access and start D5W at 100 mL/hr. Repeat blood glucose in 15 minutes x2 and notify provider. glucose oral gel 15 g 15 g, Oral, As needed, low blood sugar, Starting on Thu08/21/23 at 2226, If blood glucose less than 50 mg/dL and patient ALERT and NOT NPO, give 2 tubes glucose gel. If blood glucose less than 70 mg/dL and patient ALERT and NOT NPO, give 1 tube glucose gel. Repeat blood glucose in 15 minutes. If blood glucose is less than 70 mg/dL, repeat treatment and recheck blood glucose in 15 minutes x2 and notify provider. ondansetron (Zofran) injection 4 mg(Linked Group 2) 4 mg, IntraVENous, Every 6 hours PRN, nausea, vomiting, Starting on Thu08/21/23 at 2147, 1st Line. Give IV if patient is unable to take orally. If inadequate response within 60 minutes, proceed to next-line agent or contact provider if no further options ordered. ondansetron ODT (Zofran-ODT) disintegrating tablet 4 mg(Linked Group 2) 4 mg, Oral, Every 8 hours PRN, nausea, vomiting, Starting on Thu08/21/23 at 2147, 1st Line. If inadequate response within 60 minutes, proceed to next-line agent or contact provider if no further options ordered. Patient should allow tablet to dissolve on tongue. Do not remove from blister pack until just before administering. Linked Groups Order Group 1: acetaminophen (Tylenol) tablet 650 mgJump to med 650 mg, Oral, Every 6 hours PRN, mild pain (1-3), fever, For temp greater than 100.4 F (38 C), Starting on Thu08/21/23 at 2147, Maximum dose of acetaminophen is 4000 mg from all sources in 24 hours. Or acetaminophen (Tylenol) suppository 650 mgJump to med 650 mg, Rectal, Every 6 hours PRN, mild pain (1-3), fever, For temp greater than 100.4 F (38 C), Starting on Thu08/21/23 at 2147, Administer if oral route cannot be used. Maximum dose of acetaminophen is 4000 mg from all sources in 24 hours. Group 2: ondansetron ODT (Zofran-ODT) disintegrating tablet 4 mgJump to med 4 mg, Oral, Every 8 hours PRN, nausea, vomiting, Starting on Thu08/21/23 at 2147, 1st Line. If inadequate response within 60 minutes, proceed to next-line agent or contact provider if no further options ordered. Patient should allow tablet to dissolve on tongue. Do not remove from blister pack until just before administering. Or ondansetron (Zofran) injection 4 mgJump to med 4 mg, IntraVENous, Every 6 hours PRN, nausea, vomiting, Starting on Thu08/21/23 at 2147, 1st Line. Give IV if patient is unable to take orally. If inadequate response within 60 minutes, proceed to next-line agent or contact provider if no further options ordered. Scheduled Medication Order 09/08/2023 09/09/2023 09/10/2023 acetaminophen (Ofirmev) IVPB 1,000 mg 1,000 mg, IntraVENous, at 400 mL/hr, Administer over 15 Minutes, Every 8 hours, First dose on Thu09/09/23 at 1715, For 2 days, Drug Name: ofimirez, Form: suspension, Length of Therapy: 2 days, How soon needed? (normally 72 hrs needed to procure): 0-24 hrs, Reason for Non-Formulary: strict NPO, SBO 184 (New Bag - Provider: Denita Fuentes RN)185 (Stopped - Provider: Denita Fuentes RN) 0104 (New Bag - Provider: Marian Blanca RN)0119 (Stopped - Provider: Marian Blanca RN)0852 (New Bag - Provider: Julian Schmidt RN)0907 (Stopped - Provider: Julian Schmidt RN)1715 (Canceled Entry - Provider: Automatic Discharge Provider - Comment: Automatically canceled at discontinue of medication order) ceFAZolin in dextrose 4% (Ancef) IVPB 2,000 mg (COMPLETED) 2,000 mg, IntraVENous, Administer over 30 Minutes, Once, On Thu09/09/23 at 0600, For 1 dose, Preprocedure, Administer within 1 hour prior to incision. Recommend to repeat in 3-4 hours after initial dose if still intra-op. premix bag, Suspected Indication (Select all that apply): Surgical Prophylaxis 0709 (Given - Provider: Asael Ya CRNA) diatrizoate meglumine-sodium (Gastrografin) 66-10 % solution 60 mL (COMPLETED) 60 mL, Oral, Once, On Urszula 09/10/23 at 0815, For 1 dose 0815 (Given - Provid er: Robb Fontanez, RT (R)) enoxaparin (Lovenox) syringe 40 mg 40 mg, SubCUTAneous, Every 12 hours, First dose on Thu09/09/23 at 2200, Phase II/On Unit, Indication of Use: Prophylaxis-DVT/PE, Indications: Prophylaxis of Venous Thromboembolism 2309 (Given - Provider: Marian Blanca RN) 1000 (Given - Provider: Julian Schmidt RN) famotidine (Pepcid) 20 mg in sodium chloride (PF) 0.9 % 10 mL injection (COMPLETED)(Linked Group 1) 20 mg, IntraVENous, Administer over 2 Minutes, Once, On Thu09/09/23 at 0600, For 1 dose, Preprocedure, IV or ORAL 0632 (Given - Provider: Nelda Victor RN) heparin injection 5,000 Units (COMPLETED) 5,000 Units, SubCUTAneous, Once, On Thu09/09/23 at 0600, For 1 dose, Preprocedure 0632 (Given - Provider: Nelda Victor RN) Insulin Lispro (Humalog) injection 0-12 Units(Linked Group 2) 0-12 Units, SubCUTAneous, 3 times daily with meals, First dose on Thu09/09/23 at 1230, Phase II/On Unit, Medium Dose Correction Algorithm Glucose: Dose: LESS than 139 No Insulin 140-199 2 Unit 200-249 4 Units 250-299 6 Units 300-349 8 Units 350-400 10 Units Above 400 12 Units 1313 (Given - Provider: Denita Fuentes RN)1839 (Given - Provider: Denita Fuentes RN) 0800 (Not Given - Provider: Julian Schmidt RN - Reason: Patient/family refused)1228 (Given - Provider: Julian Schmidt, STEPHENIE)1700 (Canceled Entry - Provider: Automatic Discharge Provider - Comment: Automatically canceled at discontinue of medication order) Insulin Lispro (Humalog) injection 0-12 Units(Linked Group 2) 0-12 Units, SubCUTAneous, Nightly, First dose on Thu09/09/23 at 2100, Phase II/On Unit, If continuous tube feedings/TPN/NPO, give correction dose based on result, no reduction in dose. If eating or bolus tube feeding: Medium Dose Correction Algorithm Glucose: Dose: LESS than 139 No Insulin 140-199 2 Unit 200-249 4 Units 250-299 6 Units 300-349 8 Units 350-400 10 Units Above 400 12 Units 2309 (Given - Provider: Marian Blanca RN) pantoprazole (ProtoNix) injection 40 mg 40 mg, IntraVENous, Administer over 2 Minutes, Daily, First dose on Thu09/09/23 at 1330, Phase II/On Unit 1313 (Given - Provider: Denita Fuentes RN) 0852 (Given - Provider: Julian Schmidt, STEPHENIE) sodium chloride 0.9% (NS) flush 10 mL 10 mL, IntraVENous, Every 12 hours scheduled (2 times per day), First dose on Thu09/09/23 at 2100, Phase II/On Unit 2100 (Canceled Entry - Provider: Automatic Discharge Provider - Comment: Automatically canceled at discontinue of medication order) 0900 (Given - Provider: Julian Schmidt RN) Continuous Medication Order 09/08/2023 09/09/2023 09/10/2023 lactated Ringer's (LR) infusion (CANCELED) 50 mL/hr, IntraVENous, Continuous, Starting on Thu09/09/23 at 0600, Preprocedure, Upon admission to sameday - please start iv if patient does not have iv access. Use 500ml NS for patients on dialysis. 0659 (New Bag - Provider: Asael Ya CRNA)0810 (New Bag - Provider: Asael Ya CRNA)0903 (Stopped - Provider: Asael Ya CRNA) sodium chloride 0.45 % with KCl 20 mEq/L infusion 100 mL/hr, IntraVENous, Continuous, Starting on Thu09/09/23 at 1230, Phase II/On Unit 1547 (New Bag - Provider: Denita Fuentes, RN) 0126 (New Bag - Provider: Marian Blanca RN) PRN Medication Order 09/08/2023 09/09/2023 09/10/2023 albuterol (2.5 MG/3ML) 0.083% nebulizer solution 2.5 mg 2.5 mg, Nebulization, Every 6 hours PRN, wheezing, Starting on Thu09/09/23 at 1227, Phase II/On Unit ALPRAZolam (Xanax) disintegrating tablet 0.25 mg (COMPLETED) 0.25 mg, Oral, PRN, anxiety, Starting on Thu09/09/23 at 0549, For 1 dose, Preprocedure 0631 (Given - Provider: Nelda Victor RN) dextrose 5 % infusion 100 mL/hr, IntraVENous, PRN, Blood sugar less than 70mg/dL, Starting on Thu09/09/23 at 1242, Start infusion following administration of dextrose 50% or glucagon. dextrose 50 % solution 12.5 g 12.5 g, IntraVENous, PRN, low blood sugar, Blood glucose less than 70 mg/dL and patient NOT ALERT or NPO., Starting on Thu09/09/23 at 1242, If patient does not respond within 5 minutes, repeat dose x1. Start D5W at 100 mL/hour until ordering provider can be reached. Repeat blood glucose in 15 minutes. If blood glucose is less than 70 mg/dL, repeat treatment and recheck blood glucose in 15 minutes x2. If using Glucostabilizer, dose as instructed per system. glucagon (human recombinant) injection 1 mg 1 mg, IntraMUSCular, PRN, low blood sugar, Blood glucose less than 70 mg/dL and patient NOT ALERT or NPO and does not have IV access., Starting on Thu09/09/23 at 1242, After administration, attempt intravenous access and start D5W at 100 mL/hr. Repeat blood glucose in 15 minutes x2 and notify provider. glucose oral gel 15 g 15 g, Oral, As needed, low blood sugar, Starting on Thu09/09/23 at 1242, If blood glucose less than 50 mg/dL and patient ALERT and NOT NPO, give 2 tubes glucose gel. If blood glucose less than 70 mg/dL and patient ALERT and NOT NPO, give 1 tube glucose gel. Repeat blood glucose in 15 minutes. If blood glucose is less than 70 mg/dL, repeat treatment and recheck blood glucose in 15 minutes x2 and notify provider. HYDROmorphone (Dilaudid) injection 0.5 mg 0.5 mg, IntraVENous, Every 3 hours PRN, severe pain (7-10), moderate pain (4-6), Starting on Thu09/09/23 at 1655, If oral and IV narcotics ordered, use oral first and only use IV if oral is ineffective or cannot take oral. Do Not give oral and IV within 1 hour of each other unless specifically ordered. Insulin Lispro (Humalog) injection 0-12 Units (CANCELED) 0-12 Units, SubCUTAneous, PRN, high blood sugar, Surgery patient, Starting on Thu09/09/23 at 0549, For 3 doses, Preprocedure, Corrective Low Dose Algorithm Glucose: Dose: 70-180 No Insulin 181-240 4 Unit 241-300 6 Units 301-350 8 Units 351-400 10 Units Over 400 12 Units and notify physician 1016 (Given - Provider: Whitney Phelps RN) naloxone (Narcan) injection 0.4 mg 0.4 mg, IntraVENous, Every 5 min PRN, opioid reversal, respiratory depression, Starting on Thu09/09/23 at 1241, +++ For RR <10, pinpoint pupils, over sedation for opioid reversal - MUST notify secondary school teacher provider immediately after first dose, may give IM or SQ if no IV access +++ ondansetron (Zofran) injection 4 mg(Linked Group 3) 4 mg, IntraVENous, Every 6 hours PRN, nausea, vomiting, Starting on Thu09/09/23 at 1227, Phase II/On Unit, 1st Line. Give IV if patient is unable to take orally. If inadequate response within 60 minutes, proceed to next-line agent or contact provider if no further options ordered. ondansetron ODT (Zofran-ODT) disintegrating tablet 4 mg(Linked Group 3) 4 mg, Oral, Every 8 hours PRN, nausea, vomiting, Starting on Thu09/09/23 at 1227, Phase II/On Unit, 1st Line. If inadequate response within 60 minutes, proceed to next-line agent or contact provider if no further options ordered. Patient should allow tablet to dissolve on tongue. Do not remove from blister pack until just before administering. oxyCODONE (Roxicodone) immediate release tablet 5 mg 5 mg, Oral, Every 4 hours PRN, severe pain (7-10), moderate pain (4-6), Starting on Thu09/09/23 at 1655 sodium chloride 0.9 % infusion 5-250 mL/hr, IntraVENous, PRN, if patient receiving piggyback infusions and maintenance fluids are not ordered OR KVO fluids to protect IV site / prevent frequent line interruptions/ long duration, Starting on Thu09/09/23 at 1227, Phase II/On Unit, For piggyback infusion, administer at same rate as piggyback for a total of 25 mL. Enter 25 mL into dose field and piggyback rate into rate field of order. If piggyback is infusing at a rate less than 100 mL/hr, enter 25 mL into dose field and 100 mL/hr into rate field of order. For KVO fluids, enter rate of 20 mL/hr or less into rate field of order. sodium chloride 0.9 % irrigation solution (CANCELED) As needed, Starting on Thu09/09/23 at 0754, Intraprocedure 0754 (Given - Provider: Julian Kruse MD - Comment: ON BACK TABLE) sodium chloride 0.9% (NS) flush 10 mL 10 mL, IntraVENous, PRN, line care, Starting on Thu09/09/23 at 1227, Phase II/On Unit, After every IV line use sterile water irrigation solution (CANCELED) As needed, Starting on Thu09/09/23 at 0839, Intraprocedure 0839 (Given - Provider: Julian Kruse MD) Linked Groups Order Group 1: famotidine (Pepcid) tablet 20 mg (COMPLETED) 20 mg, Oral, Once, On Thu09/09/23 at 0600, For 1 dose, Preprocedure, IV or ORAL Or famotidine (Pepcid) 20 mg in sodium chloride (PF) 0.9 % 10 mL injection (COMPLETED)Jump to med 20 mg, IntraVENous, Administer over 2 Minutes, Once, On Thu09/09/23 at 0600, For 1 dose, Preprocedure, IV or ORAL Group 2: Insulin Lispro (Humalog) injection 0-12 UnitsJump to med 0-12 Units, SubCUTAneous, 3 times daily with meals, First dose on Thu09/09/23 at 1230, Phase II/On Unit, Medium Dose Correction Algorithm Glucose: Dose: LESS than 139 No Insulin 140-199 2 Unit 200-249 4 Units 250-299 6 Units 300-349 8 Units 350-400 10 Units Above 400 12 Units And Insulin Lispro (Humalog) injection 0-12 UnitsJump to med 0-12 Units, SubCUTAneous, Nightly, First dose on Thu09/09/23 at 2100, Phase II/On Unit, If continuous tube feedings/TPN/NPO, give correction dose based on result, no reduction in dose. If eating or bolus tube feeding: Medium Dose Correction Algorithm Glucose: Dose: LESS than 139 No Insulin 140-199 2 Unit 200-249 4 Units 250-299 6 Units 300-349 8 Units 350-400 10 Units Above 400 12 Units Group 3: ondansetron ODT (Zofran-ODT) disintegrating tablet 4 mgJump to med 4 mg, Oral, Every 8 hours PRN, nausea, vomiting, Starting on Thu09/09/23 at 1227, Phase II/On Unit, 1st Line. If inadequate response within 60 minutes, proceed to next-line agent or contact provider if no further options ordered. Patient should allow tablet to dissolve on tongue. Do not remove from blister pack until just before administering. Or ondansetron (Zofran) injection 4 mgJump to med 4 mg, IntraVENous, Every 6 hours PRN, nausea, vomiting, Starting on Thu09/09/23 at 1227, Phase II/On Unit, 1st Line. Give IV if patient is unable to take orally. If inadequate response within 60 minutes, proceed to next-line agent or contact provider if no further options ordered. FOR RECORDS PERTAINING TO PATIENTS WHO ARE [...] BE BASED ON THE PRIMARY CLINICAL RECORDS. [facility] [employer] [facility]. provides no warranty or guarantee of the accuracy or completeness of information in this document.
[2025-01-22 19:56] LABS: Lipase 26 U/L (13-75)
[2025-01-22 20:09] LABS: AST(SGOT) 21 U/L (<=31); Alanine Aminotransfer ALT/SGPT 24 U/L (<=34); Albumin, Serum 4.2 g/dL (3.4-4.8); Alkaline Phosphatase 86 U/L (35-104); Anion Gap 14 (5-15); BUN 29 mg/dL (4-19); BUN/Creat Ratio 21.8 RATIO (10-20); Calcium,Total 9.8 mg/dL (7.6-11.0); Carbon Dioxide 22.3 mmol/L (21.0-32.0); Chloride 103 mmol/L (98-108); Estimated Creatinine Clearance 33.40 ml/min (50-250); Globulin 3.2 g/dL (2.2-4.2); Glucose 189 mg/dL (70-99); Potassium 4.5 mmol/L (3.3-5.1)
[2025-01-22 20:12] LABS: Mucous, Urine 0 SEEN /hpf (<or=2+); Squamous Epithelial Cells - UA 0 SEEN /hpf (5-10)
[2025-01-22 20:14] LABS: Color, Urine Yellow (Yellow); Glucose, Dipstick Normal (Normal); Ketone-Dipstick 50 mg/dl (Negative); Leukocyte Esterase-Dipstick 25 /ul (Negative); Nitrite-Dipstick Negative (Negative); Occult Blood-Urine 250 /ul (Negative); Protein-Dipstick 15 mg/dl (Negative); Specific Gravity, Urine 1.025 (1.002-1.030); Urine Bilirubin Dipstick Negative (Negative)
--- NOTE | 2025-01-22 20:30 | CT_ITS ---
PROCEDURE: ABDOMEN/PELVIS W IV CONT ONLY 01/22/2025 REASON FOR EXAM: LEFT LOWER QUADRANT ABDOMINAL PAIN TECHNIQUE: Procedure Code: [id number] Modality: CT Procedure: ABDOMEN/PELVIS W IV CONT ONLY Coronal and Sagittal reconstruction series were provided. 100 cc intravenous contrast administered. One or more dose reduction techniques were used (e.g., Automated exposure control, adjustment of the mA and/or kV according to patient size, use of iterative reconstruction technique. RADIATION DOSE SUMMARY: CTDlvol: 11.67 mGy DLP: 588 mGycm COMPARISON: None FINDINGS: Lung bases are clear. Simple hepatic cyst in the right hepatic lobe. Spleen is identified without focal mass. Surgical clips in the proximal stomach are noted. No bowel dilation. The appendix is not confidently identified. Postsurgical changes of the distal bowel are noted. No obstruction. Aorta is nonaneurysmal. Punctate 1 mm mid left ureteral calculus with upstream mild hydroureteronephrosis. Right-sided collecting system is normal. Osseous structures intact. Prominent multilevel degenerative changes. CT/Abdomen/Pelvis W IV Cont ONLY IMPRESSION: Punctate 1 mm mid left ureteral calculus with upstream mild hydroureteronephros is. Reading Location: [facility]
[2025-01-22 20:38] LABS: Red Blood Cells-Urine 10-25 SEEN /hpf (0-5)
[2025-01-22 20:41] VITALS: BP 135/64; PULSE 70; RESP 14; O2SAT 100
[2025-01-22 21:00] VITALS: BP 134/55; PULSE 70; RESP 18; TEMP 36.6; O2SAT 99
[2025-01-22 22:00] VITALS: BP 142/72; PULSE 89; RESP 18; TEMP 36.6; O2SAT 100
[2025-01-22 22:50] VITALS: BP 143/72; PULSE 80; RESP 16; TEMP 37; O2SAT 100
== END 2025-01-22 22:58 | disposition home or self-care (01) ==
PROVIDERS: Emergency Provider Surgery; PCP Internal Medicine; Visit Provider Surgery
DX: R10.32 Left lower quadrant pain (principal); E11.65 Type 2 diabetes mellitus with hyperglycemia; Z79.4 Long term (current) use of insulin; N17.9 Acute kidney failure, unspecified; N20.9 Urinary calculus, unspecified; I10 Essential (primary) hypertension; E78.5 Hyperlipidemia, unspecified; E86.0 Dehydration; K21.9 Gastro-esophageal reflux disease without esophagitis; Z79.899 Other long term (current) drug therapy; Z79.84 Long term (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 oral hypoglycemic drugs; Z79.82 Long term (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 aspirin
CPT/HCPCS: 74177; 80053; 81001; 83690; 85025; 87086; 87088; 96360; 96361; 99283; Q9967; A4216

== ENCOUNTER → 2025-01-24 | Outpatient (CLI) | payer MEDICARE, OTHER, SELFPAY ==
--- NOTE | 2025-01-24 13:53 | US_ITS ---
PROCEDURE: EXT NON VASC LIMITED/SOFT TISS 01/24/2025 REASON FOR EXAM: LOCALIZED SWELLING, RIGHT POSTERIOR HIP TECHNIQUE: Procedure Code: [id number] Modality: US Procedure: EXT NON VASC LIMITED/SOFT TISS COMPARISON: None FINDINGS: The area of interest was scanned in the right posterior hip, with the left for comparison. No ultrasound abnormality was identified. US/Ext Non Vasc Limited/Soft Tiss IMPRESSION: There is no ultrasound abnormality identified in the area of interest. Reading Location: [place] [id number]
== END | disposition home or self-care (01) ==
LOC: US 13:51
PROVIDERS: PCP Internal Medicine; Referring Provider Internal Medicine; Visit Provider Internal Medicine
DX: R22.41 Localized swelling, mass and lump, right lower limb (principal)
CPT/HCPCS: 76882

== ENCOUNTER 2025-02-08 05:47 | Day surgery (SDC) | payer MEDICARE, OTHER, SELFPAY ==
--- NOTE | 2025-02-07 10:34 | PAT.ANESEVAL ---
Pre-Assessment Diagnosis/Proposed Procedure Planned Operative Procedure(s): LEFT URETEROSCOPY, STENT, LASER Anesthesia History Anesthesia History - sleeve setter lockstitch: Anesthesia History - sleeve setter lockstitch Hx Hospitalization No 02/07/25 09:25 Any Problems With Anesthesia No 02/07/25 09:25 Cholinesterase deficiency No 02/07/25 09:25 You/Your Family Experience No 02/07/25 09:25 fever (hyperthermia) with Relationship Recent Exposure to Contagious Disease Does patient have nerve No 02/07/25 09:25 stimulator Patient instructed to have device shut off --Does patient have Pacemaker or ICD? When Was Last Pacemaker Check QUESTION #4 FULL TEXT: You/Your Family Experience fever (hyperthermia) with Anesthesia Last Oral Intake Last Oral intake: Last Oral Intake NPO since Meds taken in AM with sips of water? Meds patient instructed to take am of surgery PONV PONV - sleeve setter lockstitch: PONV - sleeve setter lockstitch Female Yes 02/07/25 09:25 HX of Motion Sickness No 02/07/25 09:25 HX of N/V After Surgery No 02/07/25 09:25 Non-Smoker Yes 02/07/25 09:25 Duration of Surgery greater No 02/07/25 09:25 than 60 minutes Number of Risk Factors 2 02/07/25 09:25 PONV Score Moderate Risk 02/07/25 09:25 Height & Weight Height & Weight: Anesthesia: Height & Weight Height 5 ft 7 in 01/22/25 18:41 Respiratory Assessment Respiratory Assessment - sleeve setter lockstitch: Respiratory Tract Infection Hx - sleeve setter lockstitch Hx Respiratory Tract Infection No 02/07/25 09:25 STOP Sleep Apnea STOP Sleep Apnea - sleeve setter lockstitch: STOP Sleep Apnea - sleeve setter lockstitch Hx Hypertension Yes: CONTROLLED ON MED 02/07/25 09:25 Hx Sleep Apnea No 02/07/25 09:25 CPAP BIPAP Do you snore loudly (louder No 02/07/25 09:25 than talking or can be heard Do you often feel tired/ No 02/07/25 09:25 fatigued/ sleepy during daytime? Has anyone observed you stop No 02/07/25 09:25 breathing during sleep? STOP Results Negative 02/07/25 09:25 QUESTION #5 FULL TEXT : Do you snore loudly (louder than talking or can be heard through closed doors)? 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 Specify any problems Hx of Preganancy in last 3 No 02/07/25 09:25 Months Nurse Filling Out Transfusion VCHRISTIN 02/07/25 09:25 & Questions: Date: 02/07/25 02/07/25 09:25 Time: :02/07/25 09:25 Patient unable to answer at this time (ie. confused, unrespo /Reproduction History /Reproductive History - sleeve setter lockstitch: /Reproductive Hx- sleeve setter lockstitch Hx Now No 02/07/25 09:25 Gestational Age (in weeks): EDC: Hx Hx Para Hx Section SAB No 02/07/25 09:25 Does the father of the baby or his family experience fever w Father of the baby Malignant Hypertension history comment Active Medications Active Medications: Current Medications Generic Name Dose Route Start Last Admin Trade Name Freq PRN Reason Stop Dose Admin Ciprofloxacin 400 mg in 200 mls @ 200 mls/hr 02/08/25 07:00 Cipro IV 02/08/25 07:59 PREOP ONE [facility] Medical History (Updated 02/07/25 @ 09:25 by Joyce Reyes) Wears hearing aid Wears glasses Post-menopausal High cholesterol Back pain Gastric reflux Non-smoker History of edema History of echocardiogram History of stress test Cardiology follow-up encounter Localized swelling, mass and lump, right lower limb Hip swelling Type 2 diabetes mellitus Diabetes Thyroid nodule Neck mass Back pain Lumbar radiculopathy Constipation Pain in left araya Low back pain Left hip pain Osteopenia Hyperlipidemia Health care maintenance Carotid artery disease OSCAR (acute kidney injury) Abdominal pain Bilateral impacted cerumen Flu vaccine need Vitamin D deficiency Breast cancer screening GERD (gastroesophageal reflux disease) GERD (gastroesophageal reflux disease) Essential (primary) hypertension Cough Intermittent palpitations Thyroid disease Palpitation partial sigmoidectomy Thyroid disease Pneumonia Osteoarthritis Hearing problem Glaucoma Back problem Arthritis Seasonal allergies Home Medications ?Medication ?Instructions ?Recorded ?Last Taken ?Type latanoprost 0.005 % eye drops 1 drp ophthalmic (eye) QDAY 01/28/17 Unknown History blood sugar diagnostic (FreeStyle #90 ea 06/13/21 Unknown Rx Precision Leonardo Strips) lancets (Accu-Chek Fastclix Lancet #102 ea 09/12/21 Unknown Rx Drum) cholecalciferol (vitamin D3) 1,250 1,250 mcg PO QWEEK #20 caps 01/01/23 Unknown Rx mcg (50,000 unit) capsule lansoprazole 15 mg capsule,delayed 15 mg PO QHS PRN GERD 30 days #30 07/29/23 Unknown History release caps brimonidine 0.2 % eye drops 1 drp ophthalmic (eye) BID 01/05/24 Unknown History atorvastatin 10 mg tablet See Rx Instructions .Route 01/21/24 Unknown Rx .COMPLEX #90 tabs metformin 500 mg tablet 500 mg PO BID #180 tabs 05/03/24 Unknown Rx aspirin 81 mg tablet,delayed 81 mg PO QDAY #90 tabs 07/19/24 02/05/25 Rx release (Adult Aspirin Regimen) FreeStyle Wilfredo 3 Plus Sensor #6 ea 08/08/24 Unknown Rx (blood-glucose sensor) 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-glucose,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,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 #1 ea 08/08/24 Unknown Rx (FreeStyle Wilfredo 3 [place]) glimepiride 4 mg tablet 4 mg PO BID 3 months #180 tabs 10/24/24 Unknown Rx Novolog FlexPen U-100 Insulin 100 10 unit (0.1 mL) subcut TID #15 mL 11/21/24 Unknown Rx unit/mL (3 mL) subcutaneous (insulin aspart U-100) pen needle, diabetic 32 gauge x #50 ea 11/21/24 Unknown Rx insulin glargine 100 unit/mL (3 10 unit (0.1 mL) subcut QPM #15 mL 11/28/24 Unknown Rx mL) subcutaneous pen (Basaglar KwikPen U-100 Insulin) losartan 25 mg tablet 12.5 mg (1/2 x 25 mg) PO QDAY #90 01/09/25 Unknown Rx tabs ondansetron 4 mg disintegrating 4 mg PO Q8H PRN PRN Nausea #10 tabs 01/22/25 Unknown Rx tablet insulin degludec 100 unit/mL (3 5 unit subcut DAILY 02/07/25 Unknown History mL) subcutaneous pen (Tresiba FlexTouch U-100 insulin) Allergy/AdvReac Type Severity Reaction Status Date / Time Penicillins Allergy Severe Rash Verified 02/07/25 09:10 grass pollen Allergy Intermediate Unknown Verified 02/07/25 09:10 house dust Allergy Intermediate Unknown Verified 02/07/25 09:10 mold Allergy Intermediate Unknown Verified 02/07/25 09:10 Seasonal Allergies: Uncoded Allergy Intermediate NEEDS Verified 02/07/25 09:10 FOLLOW-UP Sulfa (Sulfonamide Allergy Unknown Swelling Verified 02/07/25 09:10 Antibiotics) neomycin Allergy edeema, Verified 02/07/25 09:10 skin reaction lisinopril AdvReac cough Verified 02/07/25 09:10 Family History Mother Breast cancer Diabetes Father Thyroid disorder Cancer Grandfather CVA (cerebral vascular accident) Surgical History (Updated 02/07/25 @ 09:25 by Joyce Reyes) Hx of dilation and curettage S/P laparoscopic fundoplication Normal colonoscopy History of right breast biopsy Social History Smoking Status: Never smoker second hand exposure: No alcohol intake: current alcohol intake frequency: holidays/special occasions only substance use type: does not use caffeine: Yes Type: coffee Number of servings: 1 what type of physical activity do you participate in: none Audit: Pertinent Findings Pertinent Findings EKG Perinent findings: 07/29/2023. Sinus rhythm. Stress test pertinent findings: August 19, 2023. EF is 60%. No areas of reversibility are noted to suggest ischemia. No previous infarct. Echo (EF%) pertinent findings: 08/19/2023. EF is 65%. PASP is 30 mmHg. No aortic stenosis noted. Consult pertinent findings: July 19, 2024. Dr. Fregoso. 1. Carotid artery disease?chronic-patient to start taking aspirin 81 mg daily. 2. Diastolic dysfunction-risk factor modification. 3. Hypertension?on losartan. Continue med. Recommendation Anesthesia Recommendation Anesthesia recommendation: OPTIMIZED for anesthesia
[2025-02-08] VITALS (10 sets, daily range): BP systolic 98–143; BP diastolic 58–70; PULSE 73–78; RESP 16; TEMP 36.1–37; O2SAT 94–99; BMI 24.5
--- OUTSIDE RECORDS SUMMARY | 2025-02-08 05:54 | XMS RPT_ITS | CCD ---
Author Organization [facility] Care Team Providers Care Extension Forester Name Role Phone Dr. Lnea Thorne Primary Care Provider [phone] Dr. [phone] Dr. Lena Thorne Referring Provider [phone] Oleghe, Efewongbe B Primary Care Provider Chandana Bailey Unavailable Meir CASIANO, Autumn Unavailable Unavailable Rabia, [place] Unavailable Chandana Bailey MD Unavailable OLEGHE, EFEWONGBE Primary Care Unavailable JULIAN KRUSE Attending Unavailable JULIAN KRUSE Referring Unavailable OLEGHE, EFEWONGBE Primary Care Unavailable ZOGRAFMG, JULIAN Attending Unavailable CHANDANA BAILEY Referring Unavailable ZOJULIAN CHAWLA Attending Unavailable OLEGHE, EFEWONGBE Primary Care Unavailable OLEGHE, EFEWONGBE Primary Care Unavailable ZODENTON, JULIAN Attending Unavailable OLEGHE, EFEWONGBE Primary Care Unavailable DON BELL Attending Unavailable ZOGRJULIAN BRISENO Attending Unavailable JULIAN KRUSE Admitting Unavailable OLEGHE, EFEWONGBE Primary Care Unavailable OLEGHE, EFEWONGBE Primary Care Unavailable KODAKANDLA, NARSIMHA Admitting Unavailable MILA, CHICO Attending Unavailable VEERAVANALLUR APPUSWAMY, JULIETTE Consulting Unavailable OLEGHE, EFEWONGBE Primary Care Unavailable JULIAN KRUSE Attending Unavailable JULIAN KRUSE Admitting Unavailable OLEGHE, EFEWONGBE Primary Care Unavailable AIXA, JULIAN Attending Unavailable Mati GOMEZ, Dr. Sneed Primary Care Provider Dr. Lena Thorne MD Referring Provider [phone] Dr. Sylvester Bhakta MD Attending Provider Dr. Lena Thorne MD Attending Provider [phone] Dr. Deanna Fregoso MD Attending Provider Mati GOMEZ, Dr. Sneed Primary Care Provider Mati GOMEZ, Dr. Sneed Referring Provider [phone] Alcira Alexandra Attending Provider [phone] Alcira Alexandra Referring Provider [phone] King PATRICIA, Dr. Phan Attending Provider Mati GOMEZ, Dr. Sneed Primary Care Provider Mati GOMEZ, Dr. Sneed Referring Provider [phone] Qamar GOMEZ, Dr. Gonzalez Attending Provider [phone] Mati GOMEZ, Dr. Sneed Attending Provider [phone] Mati GOMEZ, Dr. Sneed Primary Care Physician Ildefonso GOMEZ, Dr. Huerta Attending Physician [phone] Alcira Alexandra Attending Physician [phone] Qamar GOMEZ, Dr. Gonzalez Attending Physician [phone] King PATRICIA, Dr. Phan Attending Physician [phone] Mati GOMEZ, Dr. Sneed Attending Physician [phone] Mati GOMEZ, Dr. Sneed Primary Care Physician Mati GOMEZ, Dr. Sneed Referring Provider [phone] King PATRICIA, Dr. Phan Attending Physician Unavailabl e King PATRICIA, Dr. Phan Referring Provider Mati GOMEZ, Dr. Sneed Primary Care Physician Mati GOMEZ, Dr. Sneed Referring Provider [phone] Dr. Sylvester Bhakta MD Attending Physician Kevin SLAG MOTOR OPERATOR-CAngelica Attending Physician Oleghe, Efewongbe Primary Care Unavailable Sylvester Bhakta Attending Unavailable Sylvester Bhakta Referring Unavailable Oleghe, Efewongjames Primary Care Unavailable Oleghe, Efewongbe Referring Unavailable Mati Efewongbe Attending Unavailable Carlos Foote Attending Unavailable Oleghe, Efewongbe Primary Care Unavailable Alcira Alexandra Referring Unavail able Yony, Sylvester Attending Unavailable Oleghe, Efewongbe Primary Care Unavailable Oleghe, Efewongbe Referring Unavailable Oleghe, Efewongbe Referring Unavailable Oleghe, Efewongbe Attending Unavailable Oleghe, Efewongbe Primary Care Unavailable Oleghe, Efewongbe Primary Care Unavailable Oleghe, Efewongbe Referring Unavailable Yony, Sylvester Attending Unavailable Oleghe, Efewongbe Primary Care Unavailable Oleghe, Efewongbe Referring Unavailable Angelica Brown Attending Unavailable Oleghe, Efewongbe Primary Care Unavailable Oleghe, Efewongbe Referring Unavailable Yony, Sylvester Attending Unavailable Oleghe, Efewongbe Attending Unavailable Oleghe, Efewongbe Primary Care Unavailable Oleghe, Efewongbe Referring Unavailable Oleghe, Efewongbe Primary Care Unavailable Oleghe, Efewongbe Referring Unavailable Yony, Sylvester Attending Unavailable Oleghe, Efewongbe Attending Unavailable Oleghe, Efewongbe Primary Care Unavailable Oleghe, Efewongbe Referring Unavailable Oleghe, Efewongbe Attending Unavailable Oleghe, Efewongbe Referring Unavailable Oleghe, Efewongbe Primary Care Unavailable Oleghe, Efewongbe Primary Care Unavailable Alcira Alexandra Referring Unavail able Alcira Alexandra Attending Unavail able Oleghe, Efewongbe Referring Unavailable Oleghe, Efewongbe Primary Care Unavailable Ildefonso, Deanna Attending Unavailable Oleghe, Efewongbe Primary Care Unavailable Yony, Sylvester Referring Unavailable Yony, Sylvester Attending Unavailable Oleghe, Efewongbe Referring Unavailable Oleghe, Efewongbe Attending Unavailable Oleghe, Efewongbe Primary Care Unavailable Oleghe, Efewongbe Primary Care Unavailable Oleghe, Efewongbe Referring Unavailable Oleghe, Efewongbe Attending Unavailable Allergies Allergy Classification Reported Allergen(s) Allergy Type Date of Onset Reaction(s) Facility Aminoglycosides (antibiotic) (3 sources) Neomycin Drug Allergy 4 [facility] Penicillins (antibiotic) (3 sources) Penicillins Drug Allergy 1 [facility] Sulfonamides (antibiotic) (3 sources) Sulfonamides (Antibiotic) Drug Allergy 4 [facility] (18 sources) Grass pollen; Translations: [grass pollen] Allergy to substance 2 Unknown [facility] (17 sources) house dust allergenic extract Drug Allergy 2 Unknown [facility] (17 sources) Lisinopril Drug Allergy 2 cough [facility] (20 sources) Mold Extract Drug Allergy 9 Unknown [facility] (20 sources) Neomycin Drug Allergy 2 [facility] (20 sources) Penicillins; Translations: [Penicillins] Allergy to substance 1 [facility] (20 sources) Seasonal allergy Allergy to substance 2 Runny nose [facility] Work Phone: (18 sources) Sulfonamides (Antibiotic); Translations: [Sulfa (Sulfonamide Antibiotics)] Allergy to substance 2 Swelling [facility] (14 sources) Seasonal Allergies: Uncoded; Translations: [Seasonal Allergies: Uncoded] Allergy to substance 3 NEEDS FOLLOW-UP [facility] (20 sources) Sulfonamides (Antibiotic) Propensity to adverse reactions 4 [facility] (20 sources) Grass pollen Drug Allergy 9 Unknown [facility] (20 sources) Lisinopril Allergy to substance 9 Cough [facility] (1 source) house dust allergenic extract Drug Allergy 5 [facility] (1 source) Lisinopril Drug Allergy 5 [facility] (1 source) Mold Extract Drug Allergy 5 [facility] (1 source) Neomycin Drug Allergy 5 [facility] Medications Current Medications Medication Drug Class(es) Dates Sig (Normalized) Sig (Original) aspirin 81 mg delayed release oral tablet (8 sources) Platelet Aggregation Inhibitor, Nonsteroidal Anti-inflammatory Drug Start: 07-19-2024 take 1 tablet by mouth once daily Blood-Glucose Sensor (Freestyle Wilfredo 3 Plus Sensor) device (20 sources) Start: 08-08-2024 Blood-Glucose Sensor (Freestyle Wilfredo 3 Plus Sensor) device Active 0 .Route 6 3 August 08, 2024 9:46am Diabetes mellitus [facility] current use of diluted insulin Type 2 diabetes mellitus without complications 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 (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 insulin As directed Start: 04-05-2024 End: 08-08-2024 Blood-Glucose Sensor (Freest yle Wilfredo 3 Plus Sensor) device Discontinued 0 .Route 6 3 April 05, 2024 3:41pm August 08, 2024 9:46am Diabetes mellitus 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 current use of diluted insulin Type 2 diabetes mellitus without complications [facility] (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 insulin As directed Start: 04-05-2024 Blood-Glucose Sensor (Freestyle Wilfredo 3 Plus Sensor) device Active 0 .Route 6 April 05, 2024 3:41pm As directed Start: 01-05-2024 End: 04-05-2024 Blood-Glucose Sensor (Freest yle Wilfredo 3 Plus Sensor) device Discontinued 0 .Route 6 January 05, 2024 1:00am April 05, 2024 3:42pm Diabetes mellitus 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 current use of diluted insulin Type 2 diabetes mellitus without complications 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 (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 insulin As directed Start: 01-05-2024 End: 04-05-2024 Blood-Glucose Sensor (Freest yle Wilfredo 3 Plus Sensor) device Discontinued 0 .Route 6 January 05, 2024 1:00am April 05, 2024 3:42pm As directed Blood-Glucose,Automotive Generator Repairer,Cont (Freestyle Wilfredo 3 Collins) misc (20 sources) Start: 08-08-2024 Blood-Glucose,Automotive Generator Repairer,Cont (Freestyle Wilfredo 3 Collins) misc Active 0 .Route 1 0 August 08, 2024 9:46am Diabetes mellitus 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 current use of diluted insulin Type 2 diabetes mellitus without complications 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 (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 insulin As directed Start: 04-05-2024 End: 08-08-2024 Blood-Glucose,Automotive Generator Repairer,Cont (Freestyle Wilfredo 3 Collins) misc Discontinued 0 .Route 1 0 April 05, 2024 3:40pm August 08, 2024 9:46am Diabetes mellitus [facility] current use of diluted insulin Type 2 diabetes mellitus without complications [facility] (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 insulin As directed Start: 04-05-2024 Blood-Glucose, Automotive Generator Repairer,Cont (Freestyle Wilfredo 3 Collins) misc Active 0 .Route 1 April 05, 2024 3:40pm As directed Start: 01-05-2024 End: 04-05-2024 Blood-Glucose,Automotive Generator Repairer,Cont (Freestyle Wilfredo 3 Collins) misc Discontinued 0 .Route 1 0 January 05, 2024 1:00am April 05, 2024 3:41pm Diabetes mellitus [facility] current use of diluted insulin Type 2 diabetes mellitus without complications [facility] (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 insulin As directed Start: 01-05-2024 End: 04-05-2024 Blood-Glucose,Automotive Generator Repairer,Cont (Freestyle Wilfredo 3 Collins) misc Discontinued 0 .Route 1 January 05, 2024 1:00am April 05, 2024 3:41pm As directed brimonidine tartrate 2 mg/ml ophthalmic solution (20 sources) alpha-Adrenergic Agonist Start: 01-05-2024 Start: 08-21-2023 End: 08-25-2023 1 drop, Both Eyes, 2 times d scot, First dose on Thu08/21/23 at 2200 Start: 06-13-2021 End: 01-05-2024 Brimonidine 0.2 % drops Disc ontinued 1 NMA OPHTHALMIC June 13, 2021 12:00am January 05, 2024 3:34pm Start: 06-13-2021 Brimonidine Ac tive 1 DRP OPHTHALMIC June 13, 2021 12:00am Start: 05-22-2021 End: 08-22-2021 Brimonidine 0.15 % drops Dis continued 1 NMA OPHTHALMIC TWICE A DAY May 22, 2021 12:00am August 22, 2021 4:06pm take 1 drop(s) into the eye(s) twice daily brimonidine (AlphaGAN) 0.2 % ophthalmic solution 1 drop 2 times daily. Active cholecalciferol 1.25 mg oral capsule (20 sources) Vitamin D Start: 01-01-2023 take 1 capsule by [facility] every week Start: 05-22-2021 End: 01-01-2023 take 1 capsule by mouth once daily Cholecalciferol (Vitamin D3) 50 mcg (2,000 unit) capsule Discontinued 50 ug PO DAILY May 22, 2021 12:00am January 01, 2023 3:12pm Start: 12-06-2020 End: 05-22-2021 take 1 capsule by mouth every week Cholecalciferol (Vitamin D3) 1,250 mcg (50,000 unit) capsule Discontinued 1250 ug PO EVERY WEEK 30 December 06, 2020 12:00am May 22, 2021 2:12pm Start: 09-06-2020 End: 12-06-2020 take 1 capsule by mouth once daily Cholecalciferol (Vitamin D3) 50 mcg (2,000 unit) capsule Discontinued 50 ug PO DAILY September 06, 2020 12:00am December 06, 2020 2:08pm Start: 01-02-2019 End: 09-06-2020 take 1 capsule by mouth every week Cholecalciferol (Vitamin D3) 1,250 mcg (50,000 unit) capsule Discontinued 56367 U PO EVERY WEEK 10 November 21, 2019 3:23pm September 06, 2020 3:25pm 3 ml insulin aspart, human 1 00 unt/ml pen injector (20 sources) Insulin Analog Start: 07-04-2024 End: 11-21-2024 Start: 01-05-2024 End: 01-06-2024 Insulin Aspart U-100 (Novolo g Flexpen U-100 Insulin) 100 unit/mL (3 mL) insulin pen Discontinued 5 U SC THREE TIMES A DAY 15 January 05, 2024 1:00am January 06, 2024 1:38pm 3 ml insulin glargine 100 un t/ml pen injector (1 source) Insulin Analog Start: 11-28-2024 losartan potassium 25 mg ora l tablet (20 sources) Angiotensin 2 Receptor Ryan Start: 03-09-2024 Start: 08-22-2023 End: 08-25-2023 take 25 mg by mouth once daily 25 mg, Oral, Daily, Fir st dose on 08/22/23 at 0900 Start: 10-09-2017 End: 03-09-2024 take 1 tablet by mouth once daily Losartan 25 mg tablet Discontinued 0 .ROUTE .COMPLEX 90 November 10, 2023 11:00am March 09, 2024 3:42pm TAKE 1 TABLET BY MOUTH EVERY DAY MULTIPLE VITAMIN PO (12 sources) Start: 07-07-2022 MULTIPLE VITAM IN PO Take by mouth. 07/07/2022 Suspended Start: 05-22-2023 MULTIPLE VITAM IN PO Take by mouth. 07/07/2022 Active Multivitamin preparation (4 sources) Start: 07-07-2022 take 1 tablet by mouth once daily Multivitamin Active 1 TABLET PO DAILY July 06, 2022 11:00pm Start: 07-07-2022 take 1 tablet by chetan th once daily Multivitamin Active 1 TABLET PO DAILY July 07, 2022 12:00am Multivitamin tablet (9 sources) Start: 07-07-2022 Start: 07-07-2022 Multivitamin t ablet Active 1 {tbl} PO DAILY July 07, 2022 12:00am nystatin 272551 unt/ml oral suspension (8 sources) Polyene Antifungal Start: 09-25-2023 take 5 mL by mouth three times daily, then take 5 mL by mouth three times daily nystatin (Mycostatin) 952410 UNIT/ML suspension Indications: Oropharyngeal Candidiasis Swish and spit 5 mL (500,000 Units) 3 times daily. Swish and spit 5 mLs by mouth three times daily for 10 days. 150 mL 1 09/25/2023 Active ondansetron 4 mg oral tablet (11 sources) Serotonin-3 Receptor Antagonist Start: 09-09-2023 End: 09-17-2023 take 1 tablet by mouth every eight hours as needed for nausea ondansetron (Zofran) 4 MG tablet Indications: Hiatal hernia Take 1 tablet (4 mg) by mouth every 8 hours as needed for nausea or vomiting for up to 7 days. 20 tablet 09/09/2023 09/17/2023 Active Start: 08-21-2023 End: 08-21-2023 4 mg, IntraVENous, Once, On Thu08/21/23 at 1400, For 1 dose Start: 08-20-2023 End: 08-25-2023 take 1 tablet by mouth every six hours ondansetron (Zofran) 4 MG tablet Take 1 tablet (4 mg) by mouth in the morning and 1 tablet (4 mg) at noon and 1 tablet (4 mg) in the evening and 1 tablet (4 mg) before bedtime. Do all this for 3 days. 12 tablet 08/20/2023 08/25/2023 Discontinued (Stop taking at discharge) Start: 08-20-2023 End: 08-20-2023 4 mg, IntraVENous, Once, On Urszula08/19/24 at 0740, For 1 dose polyethylene glycol 3350 34505 mg powder for oral solution (20 sources) Osmotic Laxative Start: 08-20-2023 End: 08-25-2023 take 17 g by mouth once daily polyethylene glycol, PEG, 3350 (Miralax) 17 g packet Take 17 g by mouth daily. 08/24/2023 Active Completed/Discontinued Medications Medication Drug Class(es) Dates Sig (Normalized) Sig (Original) Acetaminophen (4 sources) Start: 09-09-2023 End: 09-10-2023 take 1000 mg intravenously every eight hours 1,000 mg, IntraVENous, at 400 mL/hr, Administer over 15 Minutes, Every 8 hours, First dose on Thu09/09/23 at 1715, For 2 days, Drug Name: rogelioz, Form: suspension, Length of Therapy: 2 days, How soon needed? (normally 72 hrs needed to procure): 0-24 hrs, Reason for Non-Formulary: strict NPO, SBO Start: 08-21-2023 End: 08-25-2023 take 1 tablet by mouth every six hours as needed for pain and fever acetaminophen (Tylenol) tablet 650 mg albuterol 0.83 mg/ml inhalation solution (2 sources) beta2-Adrenergic Agonist Start: 09-09-2023 End: 09-10-2023 ALPRAZolam 0.25 mg disintegrating oral tablet (2 sources) Benzodiazepine Start: 09-09-2023 End: 09-09-2023 0.25 mg, Oral, PRN, anxiety, Starting on Thu09/09/23 at 0549, For 1 dose, Preprocedure amLODIPine 5 mg oral tablet (20 sources) Dihydropyridine Calcium Channel Ryan Start: 11-10-2017 End: 02-23-2018 take 1 tablet by mouth once daily as needed Amlodipine 5 mg tablet Discontinued 5 mg PO DAILY as needed November 10, 2017 12:00am February 23, 2018 2:32pm Start: 01-28-2017 End: 10-09-2017 take 1 tablet by mouth once daily Amlodipine (Norvasc) 5 mg tablet Discontinued 5 mg PO daily January 28, 2017 1:00am October 09, 2017 10:14am atorvastatin 10 mg oral tablet (20 sources) HMG-CoA Reductase Inhibitor Start: 01-28-2017 End: 01-21-2024 take 1 tablet by mouth once daily Atorvastatin 10 mg tablet Discontinued 0 .ROUTE .COMPLEX 90 3 July 04, 2021 5:02pm January 20, 2023 2:39pm TAKE 1 TABLET BY MOUTH EVERY DAY barium sulfate (E-Z-Paque) 96 % suspension 176 g (2 sources) Start: 07-24-2023 End: 07-24-2023 barium sulfate (E-Z-Paque) 96 % suspension 176 g betamethasone 0.5 mg/ml / clotrimazole 10 mg/ml topical cream (17 sources) Azole Antifungal, Corticosteroid Start: 04-13-2018 End: 05-11-2018 Clotrimazole-Betam ethasone 1-0.05 % cream Discontinued 1 NMA TOPICAL TWICE A DAY 45 14 April 13, 2018 1:00am May 10, 2018 12:00am May 11, 2018 12:07am apply to bilateral axilla twice daily Start: 04-13-2018 End: 05-11-2018 Clotrimazole-Betamethasone D iscontinued 1 APPLIC TOPICAL TWICE A DAY 45 14 April 13, 2018 1:00am May 11, 2018 12:07am apply to bilateral axilla twice daily bisacodyl 10 mg rectal suppository (2 sources) Stimulant Laxative Start: 08-24-2023 End: 08-25-2023 take 10 mg rectal route once daily 10 mg, Rectal, Daily, First dose on Thu08/24/23 at 0900 calcium chloride 0.0014 meq/ml / potassium chloride 0.004 meq/ml / sodium chloride 0.103 meq/ml / sodium lactate 0.028 meq/ml injectable solution (2 sources) Start: 08-21-2023 End: 08-23-2023 take 75 mL intravenously every hour 75 mL/hr, IntraVENous, Continuous, Starting on Thu08/21/23 at 2020 cholecalciferol 9.52 unt/ml / glucose 357 mg/ml oral gel (4 sources) Vitamin D Start: 09-09-2023 End: 09-10-2023 15 g, Oral, As needed, low blood [...] in 15 minutes x2 and notify provider. Start: 08-21-2023 End: 08-25-2023 15 g, Oral, As needed, low b lood sugar, Starting on Thu08/21/23 at 2226, If [...] in 15 minutes x2 and notify provider. ciprofloxacin 500 mg oral tablet (17 sources) Quinolone Antimicrobial Start: 12-19-2019 End: 05-10-2020 take 1 tablet by mouth twice daily Ciprofloxacin Hcl 500 mg tablet Discontinued 500 mg PO TWICE A DAY 14 December 19, 2019 1:00am May 10, 2020 1:02pm Suspension preferred if available cyclobenzaprine hydrochloride 10 mg oral tablet (11 sources) Muscle Relaxant Start: 05-27-2023 End: 08-27-2023 take 1 tablet by mouth at bedtime as needed for muscle spasms Cyclobenzaprine 10 mg tablet Discontinued 10 mg PO BEDTIME as needed for muscle spasm 30 May 27, 2023 12:00am August 27, 2023 2:30pm diatrizoate meglumine-sodium (Gastrografin) 66-10 % solution 30 mL (2 sources) Start: 08-21-2023 End: 08-21-2023 30 mL, Oral, Once, On Thu08/21/23 at 1335, For 1 dose, 1. INPATIENTS 30ML GASTROGRAFIN MIXED IN 32OZ OF WATER-DRINK HALF 2 HRS BEFORE AND THE HALF 1HR BEFORE EXAM. 2. EMERGENCY PATIENTS 30ML GASTROGRAFIN MIXED IN 32OZ OF WATER AND WAIT 1 HOUR THEN SCAN. diatrizoate meglumine-sodium (Gastrografin) 66-10 % solution 60 mL (2 sources) Start: 09-10-2023 End: 09-10-2023 take 60 mL by mouth once 60 mL, Oral, Once, On Thu09/10/23 at 0815, For 1 dose docusate sodium 100 mg oral capsule (5 sources) Start: 08-20-2023 End: 09-19-2023 take 1 capsule by mouth every twelve hours docusate sodium (Colace) 100 MG capsule Take 1 capsule (100 mg) by mouth in the morning and 1 capsule (100 mg) in the evening. 60 capsule 08/20/2023 08/25/2023 Discontinued (Stop taking at discharge) empagliflozin 10 mg oral tablet (20 sources) Sodium-Glucose Cotransporter 2 Inhibitor Start: 05-10-2020 End: 09-06-2020 take 1 tablet by mouth once daily in the morning Empagliflozin (Jardiance) 10 mg tablet Discontinued 10 mg PO EVERY MORNING 17 03July 04, 2020 11:04am September 06, 2020 3:25pm 0.4 ml enoxaparin sodium 100 mg/ml prefilled syringe (2 sources) Low Molecular Weight Heparin Start: 09-09-2023 End: 09-10-2023 inject 40 mg by subcutaneous injection every twelve hours 40 mg, SubCUTAneous, Every 12 hours, First dose on Thu09/09/23 at 2200, Phase II/On Unit, Indication of Use: Prophylaxis-DVT/PE , Indications: Prophylaxis of Venous Thromboembolism Fluad 65yr up(PF)45 mcg(15 mcgx3)/0.5 mL intramuscular syringe (flu vac (3 sources) Start: 11-10-2017 End: 11-10-2017 inject 1 mL by intramuscular injection once Fluad 65yr up(PF)45 mcg(15 mcgx3)/0.5 mL intramuscular syringe (flu vac Discontinued 0.5 ML IM ONCE 1 November 10, 2017 2:24pm November 10, 2017 4:54pm Fluad Quad (65yr up)(PF) 60 mcg (15 mcg x 4)/0.5mL IM syringe (flu vac (3 sources) Start: 12-06-2020 End: 12-06-2020 Fluad Quad (65yr up)(PF) 60 mcg (15 mcg x 4)/0.5mL IM syringe (flu vac Discontinued 60 MCG IM ONCE 0.5 December 06, 2020 1:49pm December 06, 2020 2:31pm glimepiride 4 mg oral tablet (20 sources) Sulfonylurea Start: 12-08-2019 End: 10-24-2024 take 1 tablet by mouth twice daily Glimepiride 4 mg tablet Discontinued 4 mg PO TWICE A DAY 180 90 3 June 10, 2021 11:18am January 20, 2023 2:43pm Start: 06-03-2019 End: 08-24-2023 take 1 tablet by mouth once daily Glimepiride 4 mg tablet Discontinued 4 mg PO DAILY 90 90 June 03, 2019 1:37pm December 08, 2019 4:25pm Start: 06-02-2019 End: 06-03-2019 take 6 mg by mouth twice daily Glimepiride 4 mg tablet Discontinued 6 mg PO TWICE A DAY 270 3 June 02, 2019 11:22am June 03, 2019 1:38pm Start: 06-02-2019 End: 06-03-2019 take 6 mg by mouth twice daily Glimepiride Discontinue d 6 MG PO TWICE A DAY 270 June 02, 2019 11:22am June 03, 2019 1:38pm Start: 01-28-2017 End: 06-02-2019 take 1 tablet by mouth twice daily Glimepiride 4 mg tablet Discontinued 0 .ROUTE .COMPLEX 180 1 December 17, 2018 3:29pm June 02, 2019 11:14am TAKE 1 TABLET BY MOUTH TWICE A DAY glucagon (rdna) 1 mg injection (4 sources) Antihypoglycemic Agent Start: 09-09-2023 End: 09-10-2023 1 mg, IntraMUSCular, PRN, low blood sugar, Blood glucose less than 70 mg/dL and patient NOT ALERT or NPO and does not have IV access., Starting on Thu09/09/23 at 1242, After administration, attempt intravenous access and start D5W at 100 mL/hr. Repeat blood glucose in 15 minutes x2 and notify provider. Start: 08-21-2023 End: 08-25-2023 1 mg, IntraMUSCular, PRN, lo w blood sugar, Blood glucose less than 70 mg/dL and patient NOT ALERT or NPO and does not have IV access., Starting on Thu08/21/23 at 2226, After administration, attempt intravenous access and start D5W at 100 mL/hr. Repeat blood glucose in 15 minutes x2 and notify provider. 150 ml glucose 50 mg/ml injection (8 sources) Start: 09-09-2023 End: 09-10-2023 12.5 g, IntraVENous, PRN, lo w blood sugar, Blood glucose less than 70 [...] using Glucostabilizer, dose as instructed per system. Start: 09-09-2023 End: 09-10-2023 100 mL/hr, IntraVENous, PRN, Blood sugar less than 70mg/dL, Starting on Thu09/09/23 at 1242, Start infusion following administration of dextrose 50% or glucagon. Start: 08-21-2023 End: 08-25-2023 12.5 g, IntraVENous, PRN, lo w blood sugar, Blood glucose less than 70 [...] using Glucostabilizer, dose as instructed per system. Start: 08-21-2023 End: 08-25-2023 100 mL/hr, IntraVENous, PRN, Blood sugar less than 70mg/dL, Starting on Thu08/21/23 at 2226, Start infusion following administration of dextrose 50% or glucagon. 0.5 ml heparin sodium, porcine 95685 unt/ml prefilled syringe (2 sources) Unfractionated Heparin, Anti-coagulant Start: 09-09-2023 End: 09-09-2023 inject 5000 [IU] by subcutaneous injection once 5,000 Units, SubCUTAneous, Once, On Thu09/09/23 at 0600, For 1 dose, Preprocedure 1 ml HYDROmorphone hydrochloride 1 mg/ml cartridge (2 sources) Opioid Agonist Start: 09-09-2023 End: 09-10-2023 take 0.5 mg by mouth every three hours as needed for pain 0.5 mg, IntraVENous, Every 3 hours PRN, severe pain (7-10), moderate pain (4-6), Starting on Thu09/09/23 at 1655, If oral and IV narcotics ordered, use oral first and only use IV if oral is ineffective or cannot take oral. Do Not give oral and IV within 1 hour of each other unless specifically ordered. 3 ml insulin degludec 100 unt/ml pen injector (20 sources) Insulin Analog Start: 01-05-2024 End: 11-28-2024 Insulin Degludec (Tresiba Flextouch U-100) 100 unit/mL (3 mL) insulin pen Discontinued 5 U SC daily 15 May 03, 2024 11:46am November 21, 2024 3:23pm 3 ml insulin lispro 100 unt/ml pen injector (20 sources) Insulin Analog Start: 06-08-2024 End: 07-04-2024 Insulin Lispro (Admelog Solostar U-100 Insulin) 100 unit/mL insulin pen Discontinued 8 U SC THREE TIMES A DAY 15 June 08, 2024 4:09pm July 04, 2024 3:57pm Start: 01-06-2024 End: 06-08-2024 Insulin Lispro (Admelog Solo star U-100 Insulin) 100 unit/mL insulin pen Discontinued 5 U SC THREE TIMES A DAY 15 January 06, 2024 1:00am June 08, 2024 4:09pm Start: 09-09-2023 End: 09-09-2023 0-12 Units, SubCUTAneous, DC N, high blood sugar, Surgery patient, Starting on Thu09/09/23 at 0549, For 3 doses, Preprocedure, Corrective Low Dose Algorithm Glucose: Dose: 70-180 No Insulin 181-240 4 Unit 241-300 6 Units 301-350 8 Units 351-400 10 Units Over 400 12 Units and notify physician Start: 08-22-2023 End: 08-25-2023 inject 6 [IU] by subcutaneous injection three times daily at mealtime 0-6 Units, SubCUTAneous, 3 times daily with meals, First dose on Thu08/22/23 at 1700, Low Dose Correction Algorithm Glucose: Dose: LESS than 139 No Insulin 140-199 1 Unit 200-249 2 Units 250-299 3 Units 300-349 4 Units 350-400 5 Units Above 400 6 Units Insulin Lispro (Humalog) injection 0-12 Units (2 sources) Start: 09-09-2023 End: 09-10-2023 Insulin Lispro (Humalog) injection 0-12 Units iopamidol (Isovue-370) 76 % injection 75 mL (4 sources) Start: 08-21-2023 End: 08-21-2023 take 75 mL intravenously once as needed 75 mL, IntraVENous, IMG once PRN, contrast, Starting on Thu08/21/23 at 1655, For 1 dose Start: 08-20-2023 End: 08-20-2023 take 75 mL intravenously once as needed 75 mL, IntraVENous, IMG once PRN, contrast, Starting on Urszula 08/20/23 at 0831, For 1 dose lansoprazole 30 mg disintegrating oral tablet (20 sources) Proton Pump Inhibitor Start: 08-22-2023 End: 08-25-2023 30 mg, Oral, Daily before breakfast, First dose (after last modification) on 08/22/23 at 0645, Non-formulary medication. Patient supplied. Verified by pharmacist on 08/22/23 - Neil Brandon, GiovanyD. Do not crush or break., Drug Name: lansoprazole, Form: tablet , Length of Therapy: Indefinite, How soon needed? (normally 72 hrs needed to procure): 0-24 hrs, Reason for Non-Formulary: home med Start: 08-22-2023 End: 08-22-2023 15 mg, Oral, Daily before br eakfast, First dose on 08/22/23 at 0600, Non-formulary medication. Patient supplied. Verified by pharmacist on 08/22/23 - Giovany HuntD., Drug Name: lansoprazole, Form: tablet , Length of Therapy: Indefinite, How soon needed? (normally 72 hrs needed to procure): 0-24 hrs, Reason for Non-Formulary: home med Start: 07-29-2023 End: 08-27-2023 take 1 capsule by mouth once daily Lansoprazole 30 mg capsule,delayed release(/EC) Discontinued 30 mg PO DAILY July 29, 2023 12:00am August 27, 2023 2:31pm Start: 06-09-2018 take 1 capsule by [facility] at bedtime Start: 06-09-2018 End: 07-29-2023 Lansoprazole 15 mg capsule,d elayed release(DR/EC) Discontinued PO 30 30 0 June 09, 2018 12:00am July 29, 2023 11:15am latanoprost 0.05 mg/ml ophthalmic solution (20 sources) Prostaglandin Analog Start: 08-01-2023 take 1 drop(s) into the eye(s) once daily latanoprost (Xalatan) 0.005 % ophthalmic solution INSTILL 1 DROP INTO BOTH EYES ONCE A DAY 08/01/2023 Active Start: 01-28-2017 End: 08-25-2023 10 ml lidocaine hydrochloride 20 mg/ml injection (1 source) Antiarrhythmic, Amide Local Anesthetic Start: 08-04-2023 End: 08-04-2023 IntraVENous, As needed, Starting on Thu08/04/23 at 1044, Anesthesia Intraprocedure lisinopril 20 mg oral tablet (17 sources) Angiotensin Converting Enzyme Inhibitor Start: 01-28-2017 End: 10-09-2017 take 1 tablet by mouth once daily Lisinopril 20 mg tablet Discontinued 20 mg PO daily January 28, 2017 1:00am October 09, 2017 10:27am magnesium hydroxide 80 mg/ml oral suspension (2 sources) Start: 08-24-2023 End: 08-25-2023 take 8 [oz_av] by mouth once daily 30 mL, Oral, Daily, First dose on Thu08/24/23 at 1700, Follow dose with 8 oz of water. metFORMIN hydrochloride 500 mg oral tablet (20 sources) Biguanide Start: 10-05-2023 End: 10-06-2023 take 1000 mg by mouth twice daily Metformin 500 mg/5 mL solution Discontinued 1000 mg PO TWICE A DAY 946 3 October 05, 2023 12:00am October 06, 2023 1:52pm Start: 08-24-2023 End: 05-03-2024 take 1 tablet by mouth twice daily Metformin 500 mg tablet Discontinued 500 mg PO TWICE A DAY 180 1 October 06, 2023 1:52pm May 03, 2024 11:47am metroNIDAZOLE 500 mg oral tablet (17 sources) Nitroimidazole Antimicrobial Start: 12-19-2019 End: 05-10-2020 take 1 tablet by mouth three times daily Metronidazole 500 mg tablet Discontinued 500 mg PO THREE TIMES A DAY 21 0 December 19, 2019 1:00am May 10, 2020 1:02pm Suspension preferred if available 1 ml naloxone hydrochloride 0.4 mg/ml injection (2 sources) Opioid Antagonist Start: 09-09-2023 End: 09-10-2023 0.4 mg, IntraVENous, Every 5 min PRN, opioid reversal, respiratory depression, Starting on Thu09/09/23 at 1241, +++ For RR ondansetron ODT (Zofran-ODT) disintegrating tablet 4 mg (4 sources) Start: 09-09-2023 End: 09-10-2023 take 1 tablet by mouth every eight hours as needed for nausea and vomiting ondansetron ODT (Zofran-ODT) disintegrating tablet 4 mg Start: 08-21-2023 End: 08-25-2023 take 1 tablet by mouth every eight hours as needed for nausea and vomiting ondansetron ODT (Zofran-ODT) disintegrating tablet 4 mg oxyCODONE hydrochloride 5 mg oral tablet (4 sources) Opioid Agonist Start: 09-09-2023 End: 09-10-2023 take 1 tablet by mouth every four hours as needed for pain and pain 5 mg, Oral, Every 4 hours PRN, severe pain (7-10), moderate pain (4-6), Starting on Thu09/09/23 at 1655 Start: 09-09-2023 End: 09-15-2023 take 1 tablet by mouth every six hours as needed for pain oxyCODONE (Roxicodone) 5 MG immediate release tablet Indications: Hiatal hernia Take 1 tablet (5 mg) by mouth every 6 hours as needed for severe pain (7-10) for up to 5 days. 20 tablet 09/09/2023 09/15/2023 Active pantoprazole 40 mg injection (2 sources) Proton Pump Inhibitor Start: 09-09-2023 End: 09-10-2023 40 mg, IntraVENous, Administer over 2 Minutes, Daily, First dose on Thu09/09/23 at 1330, Phase II/On Unit Phenylephrine HCl (Pressors) 1 MG/10ML injection (1 source) Start: 08-04-2023 End: 08-04-2023 IntraVENous, As needed, Starting on Thu08/04/23 at 1044, Anesthesia Intraprocedure 1000 ml potassium chloride 0.02 meq/ml / sodium chloride 4.5 mg/ml injection (2 sources) Start: 09-09-2023 End: 09-10-2023 take 100 mL intravenously every hour 100 mL/hr, IntraVENous, Continuous, Starting on Thu09/09/23 at 1230, Phase II/On Unit predniSONE 20 mg oral tablet (10 sources) Start: 05-27-2023 End: 07-29-2023 take 2 tablets by mouth once daily Prednisone 20 mg tablet Discontinued 40 mg PO DAILY May 27, 2023 12:00am July 29, 2023 11:14am Start: 05-27-2023 take 40 mg by mouth once daily Prednisone Active 40 MG PO DAILY May 27, 2023 12:00am 20 ml propofol 10 mg/ml injection (1 source) General Anesthetic Start: 08-04-2023 End: 08-04-2023 IntraVENous, As needed, Starting on Thu08/04/23 at 1044, Anesthesia Intraprocedure 0.25 mg, 0.5 mg dose 1.5 ml semaglutide 1.34 mg/ml pen injector (20 sources) Start: 12-06-2020 End: 08-15-2021 Semaglutide (Ozempic) 0.25 mg or 0.5 mg(2 mg/1.5 mL) pen injector Discontinued 0.5 mg SC EVERY WEEK 5.2 90 3 December 06, 2020 2:09pm August 15, 2021 4:00pm 0.5 mg weekly Start: 12-06-2020 End: 12-06-2020 Semaglutide (Ozempic) 0.25 m g or 0.5 mg(2 mg/1.5 mL) pen injector Discontinued 0.5 mg SC EVERY WEEK December 06, 2020 1:52pm December 06, 2020 2:10pm for 4 doses Start: 09-06-2020 End: 12-06-2020 Semaglutide (Ozempic) 0.25 m g or 0.5 mg(2 mg/1.5 mL) pen injector Discontinued 0.25 mg SC EVERY WEEK September 06, 2020 12:00am December 06, 2020 1:52pm for 4 doses Start: 07-13-2019 End: 05-10-2020 Semaglutide (Ozempic) 0.25 m g or 0.5 mg(2 mg/1.5 mL) pen injector Discontinued 0.5 mg SC EVERY WEEK 3.6 60 3 December 01, 2019 11:17am May 10, 2020 1:02pm Start: 03-30-2019 End: 07-13-2019 Semaglutide (Ozempic) 0.25 m g or 0.5 mg(2 mg/1.5 mL) pen injector Discontinued 0.25 mg SC EVERY WEEK 1.5 0 1 March 30, 2019 1:00am July 13, 2019 11:06am Semaglutide (20 sources) Start: 01-20-2023 End: 08-27-2023 Semaglutide (Ozempic) 1 mg/d ose (4 mg/3 mL) pen injector Discontinued 1 mg SC EVERY WEEK 9 January 20, 2023 2:44pm August 27, 2023 2:30pm Start: 01-20-2023 End: 08-27-2023 Semaglutide (Ozempic) 1 mg/d ose (4 mg/3 mL) pen injector Discontinued 1 mg SC EVERY WEEK January 20, 2023 2:44pm August 27, 2023 2:30pm Start: 01-20-2023 Semaglutide (O zempic) 1 mg/dose (4 mg/3 mL) pen injector Active 1 MG SC EVERY WEEK January 20, 2023 2:44pm Start: 01-20-2023 Semaglutide (O zempic) 1 mg/dose (4 mg/3 mL) pen injector Active 1 MG SC EVERY WEEK January 20, 2023 1:44pm Start: 07-15-2022 End: 01-20-2023 Semaglutide (Ozempic) 1 mg/d ose (4 mg/3 mL) pen injector Discontinued 1 mg SC EVERY WEEK 10 17July 15, 2022 2:41pm January 20, 2023 2:44pm Start: 07-15-2022 End: 01-20-2023 Semaglutide (Ozempic) 1 mg/d ose (4 mg/3 mL) pen injector Discontinued 1 mg SC EVERY WEEK July 15, 2022 2:41pm January 20, 2023 2:44pm Start: 07-15-2022 End: 01-20-2023 Semaglutide (Ozempic) 1 mg/d ose (4 mg/3 mL) pen injector Discontinued 1 MG SC EVERY WEEK July 15, 2022 2:41pm January 20, 2023 2:44pm Start: 07-15-2022 End: 01-20-2023 Semaglutide (Ozempic) 1 mg/d ose (4 mg/3 mL) pen injector Discontinued 1 MG SC EVERY WEEK July 15, 2022 1:41pm January 20, 2023 1:44pm Start: 07-15-2022 Semaglutide (O zempic) 1 mg/dose (4 mg/3 mL) pen injector Active 1 MG SC EVERY WEEK July 15, 2022 1:41pm Start: 07-15-2022 Semaglutide (O zempic) 1 mg/dose (4 mg/3 mL) pen injector Active 1 MG SC EVERY WEEK July 15, 2022 2:41pm Start: 03-10-2022 End: 07-15-2022 Semaglutide (Ozempic) 1 mg/d ose (4 mg/3 mL) pen injector Discontinued 1 mg SC EVERY WEEK 10 17March 10, 2022 3:27pm July 15, 2022 2:41pm Start: 03-10-2022 End: 07-15-2022 Semaglutide (Ozempic) 1 mg/d ose (4 mg/3 mL) pen injector Discontinued 1 mg SC EVERY WEEK March 10, 2022 3:27pm July 15, 2022 2:41pm Start: 03-10-2022 End: 07-15-2022 Semaglutide (Ozempic) 1 [...] [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 Other connective tissue disease (10 sources) [...] 08-21-2023 08-21-2023 Episodic Other aftercare (1 source) [facility] (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 insulin; Translations: [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 (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 insulin] Onset: 04-05-2024 Episodic [...] Office Visit Reporton 2024 Office Visit Report [facility] [address] [place] [address] OFFICE VISIT Date of Service: 11/29/24 MR#: [id number] Acct: [id number] Patient: SHEYLA RAMIREZ #: [id number] : 1945 Provider: THERESA NURSE Age/Sex: 79/F Location: [facility] Status: Signed Intake Vital Signs 11/21/24 14:24 Height 5 ft 7 in Weight: 157 lb 8 oz BMI 24.6 BP 127/77 H Blood Pressure Location Lt brachial Position Sitting Pulse 70 Pulse Source Monitor Pulse Oximetry (%) 96 Oxygen Delivery Method room air Intake Visit Reasons: flu shot Chief Complaint: flu shot [employer] Employee Required: No Accompanied by: Self Is patient [...] eye drops 1 drp ophthalmic (eye) BID 01/04/ 4 11/29/24 History atorvastatin 10 mg tablet [...] ea 08/08/24 11/29/24 Rx (FreeStyle Wilfredo 3 Collins) glimepiride 4 mg tablet 4 mg PO [...] syringe Performing Provider: LIVIA Mackey Performing Location: [facility] Administered by: Amy Simpson on 11/29/24 13:09 Dose Route Admin Location Dispensed Lot Number Expiration Date Package NDC NDC Manager Banquet 45 mcg IM Left Arm (SQ) 0.5 mL [id number] 06/13/25 50730-321-93 [id number] [employer] 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 [place], [place], [id number] Amylaseon 11-21-2024 KELLI 63 U/L Normal 28-100 [facility] Comment on above: Performed By: #### L 501.2400, L501.2450, L501.9520, L500.4050, L3300.6900 #### [facility] [address] [place], [place], [id number] Anion gap in Serum or Plasma Ordered By: Sylvester Bhakta on 11-21-2024 Anion gap [Moles/Vol] 11 mmol/L - [facility] BUN/creatinine ratioOrdered By: Sylvester Bhakta on 11-21-2024 Urea nitrogen/Creatinine [Mass ratio] 36.0 mg/mg High 12-05 [facility] Bilirubin, totalOrdered By: Sylvester Bhakta on 11-21-2024 Bilirubin [Mass/Vol] 0.27 mg/dL Normal 0.00-1.30 [facility] Comment on above: Performed By: #### L 501.2400, L501.2450, L501.9520, L500.4050, L3300.6900 #### [facility] [address] [place], [address] Carbon dioxide, total [Moles /volume] in Central venous bloodOrdered By: Sylvester Bhakta on 11-21-2024 CO2 [Moles/Vol] 24.6 mmol/L Normal 21.0-32.0 [facility] Comment on above: Performed By: #### L 501.2400, L501.2450, L501.9520, L500.4050, L3300.6900 #### [facility] [address] [place], [address] Chloride assayOrdered By: Dhiraj Bhakta on 11-21-2024 Chloride [Moles/Vol] 105 mmol/L Normal 98-108 [facility] Comment on above: Performed By: #### L 501.2400, L501.2450, L501.9520, L500.4050, L3300.6900 #### [facility] [address] [place], [address] Comprehensive Metabolic Prof ilon 11-21-2024 ALK PHOS 80 U/L Normal 35-104 [facility] Comment on above: Performed By: #### L 501.2400, L501.2450, L501.9520, L500.4050, L3300.6900 #### [facility] [address] [place], [address] BUN/CRE 36.0 RATIO High 10-20 [facility] Comment on above: Performed By: #### L 501.2400, L501.2450, L501.9520, L500.4050, L3300.6900 #### [facility] [address] [place], [address] GAP 11 Normal 5-15 [facility] Comment on above: Performed By: #### L 501.2400, L501.2450, L501.9520, L500.4050, L3300.6900 #### [facility] [address] [place], [address] Potassium [Moles/Vol] 3.8 mmol/L Normal 3.3-5.1 [facility] Comment on above: Performed By: #### L 501.2400, L501.2450, L501.9520, L500.4050, L3300.6900 #### [facility] [address] [place], [address] T PROT 7.1 g/dL Normal 5.9-8.4 [facility] Comment on above: Performed By: #### L 501.2400, L501.2450, L501.9520, L500.4050, L3300.6900 #### [facility] [address] [place], [address] Comprehensive Metabolic Prof ilOrdered By: Sylvester Bhakta on 11-21-2024 AST [Catalytic activity/Vol] 27 U/L Normal <=31 [facility] Comment on above: Performed By: #### L 501.2400, L501.2450, L501.9520, L500.4050, L3300.6900 #### [facility] [address] [place], [address] Endocrinology Visit Reporton 11-21-2024 Endocrinology Visit Report [facility] [address] [facility] [place] [address] OFFICE VISIT Date of Service: 11/21/24 MR#: [id number] Acct: [id number] Name: SHEYLA RAMIREZ Rep #: [id number] : 1945 Provider: Omar Miller Age/Sex: 79/F Location: [facility] Status: Signed Intake Vital Signs 08/04/24 14:20 [...] ea 08/08/24 11/21/24 Rx (FreeStyle Wilfredo 3 Collins) glimepiride 4 mg tablet 4 mg PO [...] past year?: No PFSH Medical History (Updated 11/22/24 @ 07:34 by [...] is takin (more content not included)... Normal [facility] Glomerular filtration rate ( GFR) estimation/1.73 sq m using serum, plasma, or whole bOrdered By: Sylvester Bhakta on 11-21-2024 GFR/1.73 sq M.predicted among non-blacks MDRD (S/P/Bld) [Vol rate/Area] 65 mL/min/{1.73_m2} Normal >60 [facility] Comment on above: mL/min/1.73m2 CKD-EP I Creatinine Equation (2020) Result Comment: mL/m in/1.73m2 CKD-EPI Creatinine Equation (2020) Performed By: #### L 501.2400, L501.2450, L501.9520, L500.4050, L3300.6900 #### [facility] [address] [place] [address], [address] Lipase measurementOrdered By : Sylvester Bhakta on 11-21-2024 Lipase [Catalytic activity/Vol] 33 U/L Normal 13-75 [facility] Comment on above: Please note:LIPASE r evised [...] L 501.2400, L501.2450, L501.9520, L500.4050, L3300.6900 #### [facility] [address] [facility] [place], [address] Potassium measurement (mass/ volume)Ordered By: Sylvester Bhakta on 11-21-2024 Potassium (Unsp spec) [Mass/Vol] 3.8 mmol/L 3.3-5.1 [facility] Serum creatinine measurement (mass/volume)Ordered By: Sylvester Bhakta on 11-21-2024 Creatinine [Mass/Vol] 0.91 mg/dL Normal 0.70-1.20 [facility] Comment on above: Performed By: #### L 501.2400, L501.2450, L501.9520, L500.4050, L3300.6900 #### [facility] [address] [place], [place], [id number] Serum globulin measurementOr dered By: Sylvester Bhakat on 11-21-2024 Globulin (S) [Mass/Vol] 2.8 g/dL Normal 2.2-4.2 [facility] Comment on above: Performed By: #### L 501.2400, L501.2450, L501.9520, L500.4050, L3300.6900 #### [facility] [address] [facility] [place], [address] Serum glucose measurement (m ass/volume)Ordered By: Sylvester Bhakta on 11-21-2024 Glucose [Mass/Vol] 120 mg/dL High 70-99 [facility] Comment on above: Performed By: #### L 501.2400, L501.2450, L501.9520, L500.4050, L3300.6900 #### [facility] [address] [place], [address] Serum or plasma alanine danielson otransferase (ALT) measurementOrdered By: Sylvester Bhakta on 11-21-2024 ALT [Catalytic activity/Vol] 41 U/L High <=34 [facility] Comment on above: Performed By: #### L 501.2400, L501.2450, L501.9520, L500.4050, L3300.6900 #### [facility] [address] [facility] [place], [place], [id number] Serum or plasma albumin brice urement (mass/volume)Ordered By: Sylvester Bhakta on 11-21-2024 Albumin [Mass/Vol] 4.3 g/dL Normal 3.4-4.8 [facility] Comment on above: Performed By: #### L 501.2400, L501.2450, L501.9520, L500.4050, L3300.6900 #### [facility] [address] [facility] [place], [place], [id number] Serum or plasma albumin/glob ulin mass ratioOrdered By: Sylvester Bhakta on 11-21-2024 Albumin/Globulin [Mass ratio] 1.5 {ratio} Normal 0.9-2.4 [facility] Comment on above: Performed By: #### L 501.2400, L501.2450, L501.9520, L500.4050, L3300.6900 #### [facility] [address] [facility] [place], [place], [id number] Serum or plasma alkaline jeannie sphatase measurementOrdered By: Sylvester Bhakta on 11-21-2024 ALP [Catalytic activity/Vol] 80 U/L 35-104 [facility] Serum or plasma amylase rbice urement (enzymatic activity/volume)Ordered By: Sylvester Bhakta on 11-21-2024 Amylase [Catalytic activity/Vol] 63 U/L 28-100 [facility] Serum or plasma calcium brice urement (mass/volume)Ordered By: Sylvester Bhakta on 11-21-2024 Calcium [Mass/Vol] 9.7 mg/dL Normal 7.6-11.0 [facility] Comment on above: Performed By: #### L 501.2400, L501.2450, L501.9520, L500.4050, L3300.6900 #### [facility] [address] [facility] [place], [place], [id number] Serum or plasma thyroperoxid ase antibody assay (units/volume)Ordered By: Sylvester Bhakta on 11-21-2024 TPO Ab Qn [IU]/mL 0-34 [facility] Comment on above: Performed at: [address] [id number] Director: Chandana Turner PhD, Phone: [phone] Serum or plasma urea nitroge n measurement (mass/volume)Ordered By: Sylvester Bhakta on 11-21-2024 Urea nitrogen [Mass/Vol] 33 mg/dL High 4-19 [facility] Comment on above: Performed By: #### L 501.2400, L501.2450, L501.9520, L500.4050, L3300.6900 #### [facility] [address] [place], [place], [id number] Sodium levelOrdered By: Sylvester Bhakta on 11-21-2024 Sodium [Moles/Vol] 141 mmol/L Normal 133-145 [facility] Comment on above: Performed By: #### L 501.2400, L501.2450, L501.9520, L500.4050, L3300.6900 #### [facility] [address] [place], [place], [id number] TSH DL <= 0.005 mIU/L QnOrde red By: Sylvester Bhakta on 11-21-2024 TSH Qn 4.750 uIU/mL High 0.300-4.200 [facility] Thyroid Stim Hormone (TSH)on 11-21-2024 TSH 4.750 uIU/mL High 0.300-4.200 [facility] Comment on above: Performed By: #### L 500.2500, L100.0100 #### [facility] [address] [place], [place], [id number] Total proteinOrdered By: Jose Alberto Bhakta on 11-21-2024 Protein [Mass/Vol] 7.1 g/dL 5.9-8.4 [facility] Breast imaging reportOrdered By: Jj Unger on 11-03-2024 Study report [facility] Imaging Services [address] [place] [address] SCRN MAMM (CAD)W/SIMONA BILAT MR#: [id number] Acct: [id number] Name: SHEYLA RAMIREZ Rep #: [id number] : 1945 F 78 From: Narciso Unger MD PCP: Dr. Lena Thorne MD Status: R EG CLI Study:SCRN MAMM (CAD)W/SIMONA BILAT Date of Exa m: 11/03/24 Exam# [id number] Ordering Dr: Pipe Thorne MD EXAM: SCRN [...] be mailed to the patient. Reading Location: [facility] CC: Dr. Lena Thorne MD ~ [employer] Counselor: Signed [facility] SCRN MAMM (CAD)W/SIMONA BILATo n 11-03-2024 SCRN MAMM (CAD)W/SIMONA BILAT [facility] Imaging Services [address] [place], [place] [address] SCRN MAMM (CAD)W/SIMONA BILAT MR#: [id number] Acct: [id number] Name: SHEYLA RAMIREZ Rep #: [id number] : 1945 F 78 From: Jj landin MD PCP: Dr. Lena Thorne MD Status: REG CLI Study: SCRN MAMM (CAD)W/SIMONA BILAT Date of Exam: 10/17 10/10 Exam# [id number] Ordering Dr: Lena Thorne MD EXAM: SCRN [...] be mailed to the patient. Reading Location: [facility] CC: Dr. Lena Thorne MD [employer] Counselor: Signed Normal [facility] Internal Medicine Office Vis itomariajose 10-24-2024 Internal Medicine Office Visit [facility] [place], [place] [address] OFFICE VISIT Date of Service: 10/24/24 MR#: [id number] Acct: [id number] Name: SHEYLA RAMIREZ Rep #: [id number] : 1945 Provider: Dr. Lena garcia MD Age/Sex: 78/F Location: [facility] Status: Signed Intake Vital Signs 06/15/24 14:09 [...] ea 08/08/24 10/24/24 Rx (FreeStyle Wilfredo 3 Collins) Have you fallen in the past year?: No [facility] Medical History (Updated 10/24/24 @ 13:44 by [...] routine follow-up (more content not included)... Normal [facility] Microalb:Creat Ratio,Random URon 10-24-2024 Creatinine [Mass/Vol] 330.00 mg/dL High 28.00-217.00 [facility] Comment on above: Performed By: #### L 502.0250 #### [facility] [address] [place], [place], [id number] MALB:CREAT 8.7 mg/g CRE Normal <30 mg/g CRE [facility] Comment on above: Performed By: #### L 502.0250 #### [facility] [address] [place], [place], [id number] MICROALBUMIN,UR 28.7 mg/L Normal <20 mg/L [facility] Comment on above: Performed By: #### L 502.0250 #### [facility] [address] [place], [place], [id number] Random urine creatinine brice urement (mass/volume)Ordered By: Lena Thorne on 10-24-2024 Creatinine Unsp time (U) [Mass/Vol] 330.00 mg/dL High 28.00-217.00 [facility] Urine albumin measurement wi detection limit of 20 mg/L or less (mass/volume)Ordered By: Lena Thorne on 10-24-2024 Albumin DL <= 20 mg/L (U) [Mass/Vol] 28.7 mg/L <20 mg/L [facility] Anion gap in Serum or Plasma Ordered By: Lena Thorne on 10-21-2024 Anion gap [Moles/Vol] 12 mmol/L 5-15 [facility] BUN/creatinine ratioOrdered By: Lena Thorne on 10-21-2024 Urea nitrogen/Creatinine [Mass ratio] 32.1 mg/mg High 10-20 [facility] Bilirubin, totalOrdered By: Lena Thorne on 10-21-2024 Bilirubin [Mass/Vol] 0.47 mg/dL 0.00-1.30 [facility] Calculated very low density lipoprotein (VLDL) cholesterol measurementOrdered By: natiramonajames Thorne on 10-21-2024 Calculated very low density lipoprotein (VLDL) cholesterol measurement 13 mg/dL 5-40 [facility] Carbon dioxide, total [Moles /volume] in Central venous bloodOrdered By: Lena Thorne on 10-21-2024 CO2 [Moles/Vol] 22.6 mmol/L 21.0-32.0 [facility] Chloride assayOrdered By: Ruben Thorne on 10-21-2024 Chloride [Moles/Vol] 104 mmol/L 98-108 [facility] Comprehensive Metabolic Prof ilon 10-21-2024 Albumin [Mass/Vol] 3.9 g/dL Normal 3.4-4.8 [facility] Comment on above: Performed By: #### L 502.0250, L500.4050, L500.4100, L501.9985 #### [facility] [address] [place], [place], [id number] Albumin/Globulin [Mass ratio] 1.5 {ratio} Normal 0.9-2.4 [facility] Comment on above: Performed By: #### L 502.0250, L500.4050, L500.4100, L501.9985 #### [facility] [address] [place], [address] ALK PHOS 70 U/L Normal 35-104 [facility] Comment on above: Performed By: #### L 502.0250, L500.4050, L500.4100, L501.9985 #### [facility] [address] [place], [address] ALT [Catalytic activity/Vol] 28 U/L Normal <=34 [facility] Comment on above: Performed By: #### L 502.0250, L500.4050, L500.4100, L501.9985 #### [facility] [address] [place], [address] AST [Catalytic activity/Vol] 21 U/L Normal <=31 [facility] Comment on above: Performed By: #### L 502.0250, L500.4050, L500.4100, L501.9985 #### [facility] [address] [place], [address] Bilirubin [Mass/Vol] 0.47 mg/dL Normal 0.00-1.30 [facility] Comment on above: Performed By: #### L 502.0250, L500.4050, L500.4100, L501.9985 #### [facility] [address] [place], [address] BUN/CRE 32.1 RATIO High 10-20 [facility] Comment on above: Performed By: #### L 502.0250, L500.4050, L500.4100, L501.9985 #### [facility] [address] [place], [address] Calcium [Mass/Vol] 9.3 mg/dL Normal 7.6-11.0 [facility] Comment on above: Performed By: #### L 502.0250, L500.4050, L500.4100, L501.9985 #### [facility] [address] [place], [address] Chloride [Moles/Vol] 104 mmol/L Normal 98-108 [facility] Comment on above: Performed By: #### L 502.0250, L500.4050, L500.4100, L501.9985 #### [facility] [address] [place], [address] CO2 [Moles/Vol] 22.6 mmol/L Normal 21.0-32.0 [facility] Comment on above: Performed By: #### L 502.0250, L500.4050, L500.4100, L501.9985 #### [facility] [address] [place], [address] Creatinine [Mass/Vol] 0.83 mg/dL Normal 0.70-1.20 [facility] Comment on above: Performed By: #### L 502.0250, L500.4050, L500.4100, L501.9985 #### [facility] [address] [place], [address] GAP 12 Normal 5-15 [facility] Comment on above: Performed By: #### L 502.0250, L500.4050, L500.4100, L501.9985 #### [facility] [address] [place], [address] GFR/1.73 sq M.predicted among non-blacks MDRD (S/P/Bld) [Vol rate/Area] 73 mL/min/{1.73_m2} Normal >60 [facility] Comment on above: Result Comment: mL/m in/1.73m2 CKD-EPI Creatinine Equation (2020) Performed By: #### L 502.0250, L500.4050, L500.4100, L501.9985 #### [facility] [address] [place], [address] Globulin (S) [Mass/Vol] 2.7 g/dL Normal 2.2-4.2 [facility] Comment on above: Performed By: #### L 502.0250, L500.4050, L500.4100, L501.9985 #### [facility] [address] [place], [address] Glucose [Mass/Vol] 150 mg/dL High 70-99 [facility] Comment on above: Performed By: #### L 502.0250, L500.4050, L500.4100, L501.9985 #### [facility] [address] [place], [address] Potassium [Moles/Vol] 4.0 mmol/L Normal 3.3-5.1 [facility] Comment on above: Performed By: #### L 502.0250, L500.4050, L500.4100, L501.9985 #### [facility] [address] [place], [address] Sodium [Moles/Vol] 139 mmol/L Normal 133-145 [facility] Comment on above: Performed By: #### L 502.0250, L500.4050, L500.4100, L501.9985 #### [facility] [address] [place], [address] T PROT 6.6 g/dL Normal 5.9-8.4 [facility] Comment on above: Performed By: #### L 502.0250, L500.4050, L500.4100, L501.9985 #### [facility] [address] [place], [address] Urea nitrogen [Mass/Vol] 27 mg/dL High 4-19 [facility] Comment on above: Performed By: #### L 502.0250, L500.4050, L500.4100, L501.9985 #### [facility] [address] [facility] [place], [place], [id number] Glomerular filtration rate ( GFR) estimation/1.73 sq m using serum, plasma, or whole bOrdered By: Lena Thorne on 10-21-2024 GFR/1.73 sq M.predicted among non-blacks MDRD (S/P/Bld) [Vol rate/Area] 73 mL/min/{1.73_m2} >60 [facility] Comment on above: mL/min/1.73m2 CKD-EP I Creatinine Equation (2020) Hemoglobin A1con 10-21-2024 HbA1c (Bld) [Mass fraction] 7.3 % High <=5.6 [facility] Comment on above: Result Comment: Norm al < 5.7 % Prediabetic 5.7 - 6.4 % Diabetic >or= 6.5 % Please note range changes. Performed By: #### L 502.0250, L500.4050, L500.4100, L501.9985 #### [facility] [address] [place], [place], [address] Hemoglobin A1c percentageOrd ered By: Lena Thorne on 10-21-2024 HbA1c (Bld) [Mass fraction] 7.3 % High <5.7 [facility] Comment on above: Normal < 5.7 % Predi abetic 5.7 - 6.4 % Diabetic >or= 6.5 % Please note range changes. LDL calc ser/plasOrdered By: Lena Thorne on 10-21-2024 Cholesterol in LDL [Mass/Vol] 89 mg/dL [facility] Comment on above: Yxnnyycxar=444-451 m g/dL & Higher Ufuh=848 mg/dL or greaterFriedwald Equation for LDL-C Laboratory - Chemistry and C hemistry - challengeOrdered By: Lnea Thorne on 10-21-2024 AST [Catalytic activity/Vol] 21 U/L <32 [facility] Lipid Profileon 10-21-2024 CHOL:HDL 2.16 Normal [facility] Comment on above: Performed By: #### L 502.0250, L500.4050, L500.4100, L501.9985 #### [facility] [address] [place], [address] Cholesterol [Mass/Vol] 189 mg/dL Normal <=200 [facility] Comment on above: Result Comment: Chol esterol level, Desirable <200 mg/dL Borderline high cholesterol 200-239 mg/dL High cholesterol >=240 mg/dL Recommendations of the NCEP Adult Treatment Panel for the following risk-cutoff thresholds for the [place] population. Performed By: #### L 502.0250, L500.4050, L500.4100, L501.9985 #### [facility] [address] [place], [address] Cholesterol in HDL [Mass/Vol] 88 mg/dL Normal [facility] Comment on above: Result Comment: Snaaz onal Cholesterol Education Program (NCEP) guidelines: <40 mg/dL: Low HDL-cholesterol (major risk factor for CHD) >= 60 mg/dL: High HDL-cholesterol (negative risk factor for CHD) HDL-cholesterol is affected by a number of factors, e.g. smoking, exercise, hormones, sex and age. Performed By: #### L 502.0250, L500.4050, L500.4100, L501.9985 #### [facility] [address] [place], [address] Cholesterol in LDL [Mass/Vol] 89 mg/dL Normal [facility] Comment on above: Result Comment: Bord ewrbhr=213-023 mg/dL Higher Hszu=595 mg/dL or greater Friedwald Equation for LDL-C Performed By: #### L 502.0250, L500.4050, L500.4100, L501.9985 #### [facility] [address] [place], [address] Cholesterol in VLDL [Mass/Vol] 13 mg/dL Normal 5-40 [facility] Comment on above: Performed By: #### L 502.0250, L500.4050, L500.4100, L501.9985 #### [facility] [address] [place], [address] Triglyceride [Mass/Vol] 63 mg/dL Normal [facility] Comment on above: Result Comment: The drugs N-Acetylcysteine and Metamizole may falsely depress this assay. Normal range: <150 mg/dL Borderline High: 150-199 mg/dL High: 200-499 mg/dL Very High: >500 mg/dL Performed By: #### L 502.0250, L500.4050, L500.4100, L501.9985 #### [facility] [address] [place], [address] Microalb:Creat Ratio,Random URon 10-21-2024 MALB:CREAT Normal <30 mg/g CRE [facility] Comment on above: Result Comment: UTO Performed By: #### L 502.0250, L500.4050, L500.4100, L501.9985 #### [facility] [address] [place], [address] MICROALBUMIN,UR Normal <20 mg/L [facility] Comment on above: Result Comment: UTO Performed By: #### L 502.0250, L500.4050, L500.4100, L501.9985 #### [facility] [address] [place], [address] UR CREAT Normal 28.00-217.00 [facility] Comment on above: Result Comment: UTO Performed By: #### L 502.0250, L500.4050, L500.4100, L501.9985 #### [facility] [address] [place], [address] Potassium measurement (mass/ volume)Ordered By: Lena Thorne on 10-21-2024 Potassium (Unsp spec) [Mass/Vol] 4.0 mmol/L 3.3-5.1 [facility] Screening total cholesterol/ high density lipoprotein (HDL) cholesterol ratioOrdered By: Lena Thorne on 10-21-2024 Cholesterol.total/Choles terol in HDL [Mass ratio] 2.16 {ratio} [facility] Serum creatinine measurement (mass/volume)Ordered By: Lena Thorne on 10-21-2024 Creatinine [Mass/Vol] 0.83 mg/dL 0.70-1.20 [facility] Serum globulin measurementOr dered By: Lena Thorne on 10-21-2024 Globulin (S) [Mass/Vol] 2.7 g/dL 2.2-4.2 [facility] Serum glucose measurement (m ass/volume)Ordered By: Lena Thorne on 10-21-2024 Glucose [Mass/Vol] 150 mg/dL High 70-99 [facility] Serum or plasma alanine danielson otransferase (ALT) measurementOrdered By: Lena Thorne on 10-21-2024 ALT [Catalytic activity/Vol] 28 U/L <35 [facility] Serum or plasma albumin brice urement (mass/volume)Ordered By: Lena Thorne on 10-21-2024 Albumin [Mass/Vol] 3.9 g/dL 3.4-4.8 [facility] Serum or plasma albumin/glob ulin mass ratioOrdered By: Lena Thorne on 10-21-2024 Albumin/Globulin [Mass ratio] 1.5 {ratio} 0.9-2.4 [facility] Serum or plasma alkaline jeannie sphatase measurementOrdered By: Lena Thorne on 10-21-2024 ALP [Catalytic activity/Vol] 70 U/L 35-104 [facility] Serum or plasma calcium brice urement (mass/volume)Ordered By: Lena Thorne on 10-21-2024 Calcium [Mass/Vol] 9.3 mg/dL 7.6-11.0 [facility] Serum or plasma cholesterol in HDL measurement (mass/volume)Ordered By: Lena Thorne on 10-21-2024 Cholesterol in HDL [Mass/Vol] 88 mg/dL >40 [facility] Comment on above: National Cholesterol Education Program (NCEP) guidelines:<40 mg/dL: Low HDL-cholesterol (major risk factor for CHD)>= 60 mg/dL: High HDL-cholesterol (negative risk factor for CHD)HDL-cholesterol is affected by a number of factors, e.g. smoking, exercise, hormones, sex and age. Serum or plasma cholesterol measurement (mass/volume)Ordered By: Lena Thorne on 10-21-2024 Cholesterol [Mass/Vol] 189 mg/dL <201 [facility] Comment on above: Cholesterol level, D esirable <200 mg/dLBorderline high cholesterol 200-239 mg/dLHigh cholesterol >=240 mg/dLRecommendations of the NCEP Adult Treatment Panel for the following risk-cutoff thresholds for the [place] population. Serum or plasma urea nitroge n measurement (mass/volume)Ordered By: Lena Thorne on 10-21-2024 Urea nitrogen [Mass/Vol] 27 mg/dL High 4-19 [facility] Sodium levelOrdered By: Missy salazarantoni Mati on 10-21-2024 Sodium [Moles/Vol] 139 mmol/L 133-145 [facility] Total proteinOrdered By: Oscar ktjames Thorne on 10-21-2024 Protein [Mass/Vol] 6.6 g/dL 5.9-8.4 [facility] Triglycerides measurementOrd ered By: Lena Luevanobreannapipe on 10-21-2024 Triglyceride [Mass/Vol] 63 mg/dL <199 [facility] Comment on above: The drugs N-Acetylcy steine and Metamizole may falsely depress this assay. Normal range: <150 mg/dLBorderline High: 150-199 mg/dLHigh: 200-499 mg/dLVery High: >500 mg/dL Endocrinology Visit Reporton 08-04-2024 Endocrinology Visit Report [facility] [address] [place] [address]. [address] [place], [place] [address] OFFICE VISIT Date of Service: 08/04/24 MR#: [id number] Acct: [id number] Name: SHEYLA RAMIREZ Rep #: [id number] : 1945 Provider: Omar Miller Age/Sex: 78/F Location: [facility] Status: Signed Intake Vital Signs 04/05/24 14:22 [...] ea 04/05/24 08/04/24 Rx (FreeStyle Wilfredo 3 Collins) Tresiba FlexTouch U-100 100 5 unit (0.05 mL) subcut QDAY #15 m L 05/03/24 08/04/24 Rx unit/mL (3 mL) subcutaneous pen (insulin degludec) metformin 500 mg tablet 500 mg PO BID #180 tabs 05/03/24 0 08/04/24 Rx pen needle, diabetic 32 gauge x #50 ea 06/08/24 08/04/24 Rx /32 (BD Ultra-Fine Naty Pen Needle) [...] about the (more content not included)... Normal [facility] - Hematology and Cell countsOrdered By: Sylvester Bhakta on 08-04-2024 HbA1c (Bld) [Mass fraction] 7.5 % High 4.2-6.3 [facility] Carotid Duplex Ultrasoundon 08-01-2024 Carotid Duplex Ultrasound [facility] [address] [facility] [place] [place] [address] Carotid Duplex Ultrasound 08/01/24 1305 MR#: [id number] Acct: [id number] Name: SHEYLA RAMIREZ Rep #: [id number] : 1945 78 From: Carlos Foote MD Attending Dr: XIOMARA Hartley Status: DEP [facility] Ordering Dr: Alcira Angelo PA Date: 07/17 08/10 Location: [facility] Sex: F C Admitted: Reason For Study [...] the left vertebral artery. Procedure Carotid Duplex 43146. This is a Carotid Duplex examination using B-mode, color flow and specral Doppler. Exam performed in department. VL/Carotid Duplex Ultrasound Interpretation Summary Mild (<50%) stenosis right extracranial internal carotid. Moderate (50-69%) stenosis left extracranial internal carotid. Patent and antegrade vertebrals bilaterally. Ordering Physician: Alcira Angeol Referring Physician: Lena Thorne Performed By: Kelsey Dow RVT 08/08/24 1400 Date Carlos Foote MD CC: Dr. Lena Thorne MD; XIOMARA Hartley Date Dictated: 08/01/24 1305 Date Transcribed: 08/08/24 1400 [employer] Counsel[employer]: Signed Normal [facility] Cardiology Visit Reporton Cardiology Visit Report [facility] [address] [place] [address] OFFICE VISIT Date of Service: 07/19/24 MR#: [id number] Acct: [id number] Name: SHEYLA RAMIREZ Rep #: [id number] : 1945 Provider: Dr. Deanna Fregoso MD Age/Sex: 78/F Location: [facility] Status: Signed HPI HPI History of Present [...] air Intake Visit Reasons: 1 Y F[employer] Required: No Accompanied by: Self Is patient [...] ea 04/05/24 07/19/24 Rx (FreeStyle Wilfredo 3 Collins) Tresiba FlexTouch U-100 100 5 unit (0.05 mL) subcut QDAY #15 m L 05/03/24 07/19/24 Rx unit/mL (3 mL) subcutaneous pen (insulin degludec) metformin 500 mg tablet 500 mg PO BID #180 tabs 05/03/24 0 07/19/24 Rx pen needle, diabetic 32 gauge x #50 ea 06/08/24 07/19/24 Rx (BD Ultra-Fine Naty Pen Needle) Novolog [...] substance use (more content not included)... Normal [facility] Absolute lymphocyte countOrd ered By: Lena Thorne on 06-15-2024 Lymphocytes Auto (Unsp spec) [#/Vol] 1.74 10*3/uL 0.83-4.51 [facility] Absolute neutrophil countOrd ered By: Lena Thorne on 06-15-2024 Neutrophils (Bld) [#/Vol] 4.2 10*3/uL 2.0-7.7 [facility] Anion gap in Serum or Plasma Ordered By: Lena Thorne on 06-15-2024 Anion gap [Moles/Vol] 11 mmol/L 5- [facility] Automated lymphocyte count a s percentage of total leukocytesOrdered By: Lena Thorne on 06-15-2024 Lymphocytes/100 WBC Auto (Unsp spec) 25.9 % - [facility] BUN/creatinine ratioOrdered By: Lena Thorne on 06-15-2024 Urea nitrogen/Creatinine [Mass ratio] 28.5 mg/mg High 12-05 [facility] Basic Metabolic Profile (BMP )on 06-15-2024 BUN/CRE 28.5 RATIO High - [facility] Comment on above: Performed By: #### L 500.2500, L100.0100 #### [facility] [address] [place], [address] Calcium [Mass/Vol] 9.7 mg/dL Normal 7.6-11.0 [facility] Comment on above: Performed By: #### L 500.2500, L100.0100 #### [facility] [address] [place], [address] Chloride [Moles/Vol] 106 mmol/L Normal 98-108 [facility] Comment on above: Performed By: #### L 500.2500, L100.0100 #### [facility] [address] [place], [address] CO2 [Moles/Vol] 25.5 mmol/L Normal 21.0-32.0 [facility] Comment on above: Performed By: #### L 500.2500, L100.0100 #### [facility] [address] [place], [address] Creatinine [Mass/Vol] 0.84 mg/dL Normal 0.70-1.20 [facility] Comment on above: Performed By: #### L 500.2500, L100.0100 #### [facility] [address] [place], [address] GAP 11 Normal -15 [facility] Comment on above: Performed By: #### L 500.2500, L100.0100 #### [facility] [address] [place], [address] GFR/1.73 sq M.predicted among non-blacks MDRD (S/P/Bld) [Vol rate/Area] 72 mL/min/{1.73_m2} Normal >60 [facility] Comment on above: Result Comment: mL/m in/1.73m2 CKD-EPI Creatinine Equation (2020) Performed By: #### L 500.2500, L100.0100 #### [facility] [address] [place], [address] Glucose [Mass/Vol] 145 mg/dL High 70-99 [facility] Comment on above: Performed By: #### L 500.2500, L100.0100 #### [facility] [address] [place], [address] Potassium [Moles/Vol] 4.6 mmol/L Normal 3.3-5.1 [facility] Comment on above: Performed By: #### L 500.2500, L100.0100 #### [facility] [address] [place], [address] Sodium [Moles/Vol] 142 mmol/L Normal 133-145 [facility] Comment on above: Performed By: #### L 500.2500, L100.0100 #### [facility] [address] [place], [address] Urea nitrogen [Mass/Vol] 24 mg/dL High 4-19 [facility] Comment on above: Performed By: #### L 500.2500, L100.0100 #### [facility] [address] [place], [address] Basophil percentageOrdered B y: Lena Thorne on 06-15-2024 Basophils/100 WBC (Bld) 0.4 % 0-1 [facility] CBC W/Diff, Automatedon 04-3 0-2024 Absolute Lymph 1.74 X10 3/uL Normal 0.83-4.51 [facility] Comment on above: Performed By: #### L 500.2500, L100.0100 #### [facility] [address] [place], [address] Absolute Neut 4.2 X10 3/uL Normal 2.0-7.7 [facility] Comment on above: Performed By: #### L 500.2500, L100.0100 #### [facility] [address] [place], [address] Basophils/100 WBC (Bld) 0.4 % Normal 0-1 [facility] Comment on above: Performed By: #### L 500.2500, L100.0100 #### [facility] [address] [place], [address] Eosinophils/100 WBC (Bld) 1.9 % Normal 0-5 [facility] Comment on above: Performed By: #### L 500.2500, L100.0100 #### [facility] [address] [place], [address] Erythrocyte distribution width (RBC) [Ratio] 13.5 % Normal 11.6-14.6 [facility] Comment on above: Performed By: #### L 500.2500, L100.0100 #### [facility] [address] [place], [address] Hematocrit (Bld) [Volume fraction] 41.6 % Normal 37-47 [facility] Comment on above: Performed By: #### L 500.2500, L100.0100 #### [facility] [address] [place], [address] Hemoglobin (Bld) [Mass/Vol] 13.3 g/dL Normal 12.0-15.0 [facility] Comment on above: Performed By: #### L 500.2500, L100.0100 #### [facility] [address] [place], [address] IG% 0.300 Normal 0.0-0.9 [facility] Comment on above: Result Comment: IG% - Immature Granulocytes (promyelocytes, myelocytes and metamyelocytes) > 1% indicates that a LEFT SHIFT is Present. Performed By: #### L 500.2500, L100.0100 #### [facility] [address] [place], [address] Lymphocytes/100 WBC (Bld) 25.9 % Normal 19-41 [facility] Comment on above: Performed By: #### L 500.2500, L100.0100 #### [facility] [address] [place], [address] MCH (RBC) [Entitic mass] 28.3 pg Normal 27.0-32.0 [facility] Comment on above: Performed By: #### L 500.2500, L100.0100 #### [facility] [address] [place], [address] MCHC (RBC) [Mass/Vol] 32.0 g/dL Normal 32-36 [facility] Comment on above: Performed By: #### L 500.2500, L100.0100 #### [facility] [address] [place], [address] MCV (RBC) [Entitic vol] 88.5 fL Normal 81-99 [facility] Comment on above: Performed By: #### L 500.2500, L100.0100 #### [facility] [address] [place], [address] Monocytes/100 WBC (Bld) 8.5 % Normal 0-10 [facility] Comment on above: Performed By: #### L 500.2500, L100.0100 #### [facility] [address] [place], [address] Neutrophils/100 WBC (Bld) 63.0 % Normal 47-70 [facility] Comment on above: Performed By: #### L 500.2500, L100.0100 #### [facility] [address] [place], [address] Nucleated RBC (Bld) [#/Vol] 0 10*3/uL Normal 0-5 [facility] Comment on above: Performed By: #### L 500.2500, L100.0100 #### [facility] [address] [place], [address] Platelet mean volume (Bld) [Entitic vol] 11.2 fL Normal 6.2-12.0 [facility] Comment on above: Performed By: #### L 500.2500, L100.0100 #### [facility] [address] [place], [address] Platelets (Bld) [#/Vol] 212 10*3/uL Normal 150-450 [facility] Comment on above: Performed By: #### L 500.2500, L100.0100 #### [facility] [address] [place], [address] RBC (Bld) [#/Vol] 4.70 10*6/uL Normal 4.2-5.4 [facility] Comment on above: Performed By: #### L 500.2500, L100.0100 #### [facility] [address] [place], [address] RDW SD 43.8 fl Normal 35.1-43.9 [facility] Comment on above: Performed By: #### L 500.2500, L100.0100 #### [facility] [address] [place], [address] WBC (Bld) [#/Vol] 6.7 10*3/uL Normal 4.4-11.0 [facility] Comment on above: Performed By: #### L 500.2500, L100.0100 #### [facility] [place], [address] Carbon dioxide, total [Moles /volume] in Central venous bloodOrdered By: Lena Thorne on 06-15-2024 CO2 [Moles/Vol] 25.5 mmol/L 21.0-32.0 [facility] Chloride assayOrdered By: Ruben Thorne on 06-15-2024 Chloride [Moles/Vol] 106 mmol/L 98-108 [facility] Eosinophil percentageOrdered By: Lena Thorne on 06-15-2024 Eosinophils/100 WBC (Bld) 1.9 % 0-5 [facility] Erythrocyte distribution wid th ratioOrdered By: [facility] Th[facility] on 06-15-2024 Erythrocyte distribution width (RBC) [Ratio] 13.5 % 11.6-14.6 [facility] Erythrocyte distribution wid th standard deviationOrdered By: natiramonajames Thorne on 06-15-2024 Erythrocyte distribution width (RBC) [Ratio] 43.8 fl 35.1-43.9 [facility] Glomerular filtration rate ( GFR) estimation/1.73 sq m using serum, plasma, or whole bOrdered By: Lena Thorne on 06-15-2024 GFR/1.73 sq M.predicted among non-blacks MDRD (S/P/Bld) [Vol rate/Area] 72 mL/min/{1.73_m2} >60 [facility] Comment on above: mL/min/1.73m2 CKD-EP I Creatinine Equation (2020) Hematocrit Auto (Bld) [Volum e fraction]Ordered By: Lena Thorne on 06-15-2024 Hematocrit (Bld) [Volume fraction] 41.6 % 37-47 [facility] Hemoglobin measurementOrdere d By: Lena Thorne on 06-15-2024 Hemoglobin (Bld) [Mass/Vol] 13.3 g/dL 12.0-15.0 [facility] Immature granulocytes/100 WB C Auto (Bld)Ordered By: Lena Thorne on 06-15-2024 Immature granulocytes/100 WBC (Bld) 0.300 % 0.0-0.9 [facility] Comment on above: IG% - Immature Granu locytes (promyelocytes, myelocytes and metamyelocytes) > 1% indicates that a LEFT SHIFT is Present. Internal Medicine Office Vis iton 06-15-2024 Internal Medicine Office Visit [facility] [address] [place] [address] [place] [address] OFFICE VISIT Date of Service: 06/15/24 MR#: [id number] Acct: [id number] Name: SHEYLA RAMIREZ Rep #: [id number] : 1945 Provider: Dr. Lena garcia MD Age/Sex: 78/F Location: [facility] Status: Signed Intake Vital Signs 03/09/24 14:23 [...] M FU Chief Complaint: Follow-up chronic conditions [employer] Employee Required: No Accompanied by: Self Is patient [...] eye drops 1 drp ophthalmic (eye) QDAY 12/13/ 17 04/30/25 History blood sugar diagnostic (FreeStyle #90 ea [...] drops 1 drp ophthalmic (eye) BID 4 06/15/24 History atorvastatin 10 mg tablet See Rx Instructions .Route 4 06/15/24 Rx .COMPLEX #90 tabs losartan 25 mg tablet 12.5 mg (1/2 x 25 mg) PO QDAY #90 03/09/24 06/15/24 Rx tabs FreeStyle Wilfredo 3 Plus Sensor #6 ea 04/05/24 06/15/24 Rx (blood-glucose sensor) blood-glucose meter,continuous #1 ea 04/05/24 06/15/24 Rx (FreeStyle Wilfredo 3 Collins) Tresiba FlexTouch U-100 100 5 unit (0.05 [...] that la (more content not included)... Normal [facility] MCV (mean corpuscular volume ) determinationOrdered By: Lena Thorne on 06-15-2024 MCV (RBC) [Entitic vol] 88.5 fL 81-99 [facility] Mean corpuscular hemoglobin (MCH) determinationOrdered By: Lena Thorne on 06-15-2024 MCH (RBC) [Entitic mass] 28.3 pg 27.0-32.0 [facility] Mean corpuscular hemoglobin concentration (MCHC) determinationOrdered By: Lena Thorne on 06-15-2024 MCHC (RBC) [Mass/Vol] 32.0 g/dL 32-36 [facility] Mean platelet volume determi nationOrdered By: Lena Thorne on 06-15-2024 Platelet mean volume (Bld) [Entitic vol] 11.2 fL 6.2-12.0 [facility] Monocyte percentageOrdered B y: Lena Thorne on 06-15-2024 Monocytes/100 WBC (Bld) 8.5 % 0-10 [facility] Neutrophil percentageOrdered By: Lena Thorne on 06-15-2024 Neutrophils/100 WBC (Bld) 63.0 % 47-70 [facility] Nucleated red blood cell per centageOrdered By: Lena Thorne on 06-15-2024 Nucleated RBC/100 WBC (Bld) [Ratio] 0 % 0-5 [facility] Platelet countOrdered By: Ruben Thorne on 06-15-2024 Platelets (Bld) [#/Vol] 212 10*3/uL 150-450 [facility] Potassium measurement (mass/ volume)Ordered By: Lena Thorne on 06-15-2024 Potassium (Unsp spec) [Mass/Vol] 4.6 mmol/L 3.3-5.1 [facility] RBC Auto (Bld) [#/Vol]Ordere d By: Lena Thorne on 06-15-2024 RBC (Bld) [#/Vol] 4.70 10*6/uL 4.2-5.4 [facility] Serum creatinine measurement (mass/volume)Ordered By: Lena Thorne on 06-15-2024 Creatinine [Mass/Vol] 0.84 mg/dL 0.70-1.20 [facility] Serum glucose measurement (m ass/volume)Ordered By: Lena Thorne on 06-15-2024 Glucose [Mass/Vol] 145 mg/dL High 70-99 [facility] Serum or plasma calcium brice urement (mass/volume)Ordered By: Lena Thorne on 06-15-2024 Calcium [Mass/Vol] 9.7 mg/dL 7.6-11.0 [facility] Serum or plasma urea nitroge n measurement (mass/volume)Ordered By: Lena Thorne on 06-15-2024 Urea nitrogen [Mass/Vol] 24 mg/dL High 4-19 [facility] Sodium levelOrdered By: Missy Thorne on 06-15-2024 Sodium [Moles/Vol] 142 mmol/L 133-145 [facility] White blood cell (WBC) count Ordered By: Lena Thorne on 06-15-2024 WBC (Bld) [#/Vol] 6.7 10*3/uL 4.4-11.0 [facility] Endocrinology Visit Reporton 04-05-2024 Endocrinology Visit Report [facility] [address] [place] [address] OFFICE VISIT Date of Service: 04/05/24 MR#: [id number] Acct: [id number] Name: SHEYLA RAMIREZ Rep #: [id number] : 1945 Provider: Omar Miller Age/Sex: 78/F Location: [facility] Status: Signed Intake Vital Signs 01/05/24 14:27 [...] ea 04/05/24 04/05/24 Rx (FreeStyle Wilfredo 3 Collins) Have you fallen in the past year?: [...] glimepiride. She (more content not included)... Normal [facility] - Hematology and Cell countsOrdered By: Sylvester Bhakta on 04-05-2024 HbA1c (Bld) [Mass fraction] 7.8 % High 4.2-6.3 [facility] Internal Medicine Office Vis mike 03-09-2024 Internal Medicine Office Visit [facility] [address] [place] [address] [address] [place], [place] [id number] OFFICE VISIT Date of Service: 03/09/24 MR#: [id number] Acct: [id number] Name: SHEYLA RAMIREZ Rep #: [id number] : 1945 Provider: Dr. 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 [facility] 36on 02-19-2024 36 Sounds good, thanks. Normal [facility] 36 Symptoms present for about a week [...] few weeks to see if it helps [place] [address] How long has this been going on? [...] symptoms that should resolve with medical therapy. [facility] 36 LAPAROSCOPIC HIATAL HERNIA REPAIR, WITH MESH, [...] cannot. -not taking any medication currently Normal [facility] 36 Patient left Voicemail stating that she needs a return call to schedule an appt as she is having some problems since her Lap HH Repair with Dr Kruse on 09/09/2023. Patient did not state exactly what issues she was having. May need to return call and get the specifics. DP Normal [facility] Endocrinology Visit Reporton 01-05-2024 Endocrinology Visit Report [facility] [address] [place] [address] OFFICE VISIT Date of Service: 01/05/24 MR#: [id number] Acct: [id number] Name: SHEYLA RAMIREZ Rep #: [id number] : 1945 Provider: Omar Miller Age/Sex: 78/F Location: [facility] [facility] Status: Signed Intake Vital Signs 10/05/23 14:35 [...] 25 mg tablet See Rx Instructions .Route 11/10/23 01/05/24 Rx .COMPLEX #90 tabs Tresiba FlexTouch U-100 100 5 unit (0.05 mL) subcut QDAY #15 mL 01/05/24 01/05/24 Rx unit/mL (3 mL) subcutaneous pen (insulin degludec) blood-glucose meter,continuous #1 ea 01/05/24 01/05/24 Rx (FreeStyle Wilfredo 3 Collins) blood-glucose sensor (FreeStyle #6 ea 01/05/24 01/05/24 Rx Wilfredo 3 Plus Sensor device) brimonidine 0.2 % eye drops 1 drp ophthalmic (eye) BID 01/05/24 01/05/24 History pen needle, diabetic 32 gauge x #50 ea 01/05/24 01/05/24 Rx / (BD Ultra-Fine Naty Pen Needle) insulin lispro 100 unit/mL 5 unit (0.05 mL) subcut TID #15 mL 01/06/24 Rx subcutaneous pen (Admelog SoloStar U-100 Insulin lispro) Have you fallen in the past year?: No PFSH Medical History (Updated 01/05/24 @ 15:[address] Sylvester Bhakta MD) [facility] current use of diluted insulin Diabetes Thyroid [...] is 9.7% (more content not included)... Normal [facility] Office Visiton 10-30-2023 Follow-up visit [id number] Sheyla Ramirez 1945 F Date Provider Department Center 10/30/2023 [id number] KRUSE [facility] ALS None Family History Family Status - Relation Status Age at Mother Father Level of Service:08619 DC POSTOP FOLLOW UP VISIT RELATED TO ORIGINAL PX Reason for Visit and Comments: Post-op [483] - 09/02/2023 CALEB [facility] Progress Noteon 10-30-2023 Progress Note [facility] - Surgery Patient Name: Sheyla Ramirez [...] times daily. cholecalciferol (Vitamin D-3) 1.25 MG (85665 UT) capsule Take by mouth 1 (one) [...] VITAMIN PO Take by mouth. nystatin (Mycostatin) 379270 UNIT/ML suspension Swish and spit 5 mL [...] as PCP - General (Internal Medicine) Chandana Bailey MD (Gastroenterology) Autumn Worley RN as Registered Nurse (Radon Inspector Manager) Vitor Camarillo (Cardiology) [facility] 36on 10-02-2023 36 Spoke with patient [...] and will call with any further concerns. [facility] 36 ----- Message from Julian Kruse MD sent at 09/25/2023 5:24 PM EDT ----- Please call her at the end of next week to make sure she is advancing her diet, she is choosing not to eat because she wants to keep her sugars under control. Hopefully she will advance her diet as we discussed today. [facility] Progress Noteon 09-28-2023 Progress Note Chart reviewed. 30-day [facility] Transition of Care post-hospital discharge on 08/25/23 [...] a 77 y.o. female who presented to [facility] on 09/09/2023 for elective bariatric surgical procedure. [...] Commonly known as: AlphaGAN cholecalciferol 1.25 MG (26320 UT) capsule Commonly known as: Vitamin D-3 [...] Your Medications These medications were sent to [facility] [address] [place] [address] Hours: Thursday to Thursday 10 am to [...] Kruse MD in 1-2 weeks PCP: LENA THOREN in 1-2 weeks SIGNED: Wilber Coto MD 09/10/23 1:05 PM [facility] Office Visiton 09-25-2023 Follow-up visit [id number] Sheyla Ramirez 1945 F Date Provider Department Center 09/25/2023 [id number] KRUSE [facility] ALS None Family History Family Status - Relation Status Age at Mother Father Level of Service:09625 DC POSTOP FOLLOW UP VISIT RELATED TO ORIGINAL PX Reason for Visit and Comments: Post-op [483] - POST OP 09/02/2023 CALEB [facility] Progress Noteon 09-25-2023 Progress Note [facility] - Surgery Patient Name: Sheyla Ramirez Date: 09/25/23 S: Sheylaleah Ramirez follows up for a post operative [...] times daily. cholecalciferol (Vitamin D-3) 1.25 MG (81522 UT) capsule Take by mouth 1 (one) [...] 17 g by mouth daily. nystatin (Mycostatin) 535393 UNIT/ML suspension Swish and spit 5 mL [...] without esophagitis Other orders - nystatin (Mycostatin) 356245 UNIT/ML suspension; Swish and spit 5 mL [...] as PCP - General (Internal Medicine) Chandana Bailey MD (Gastroenterology) Autumn Worley RN as Registered Nurse (Radon Inspector Manager) Vitor Camarillo (Cardiology) [facility] Progress Noteon 09-23-2023 Progress Note EMR reviewed. Patient is enrolled in 30-day [facility] Transition of Care Ambulatory program post-hospital discharge on 08/25/23 Dx: Abdominal pain. Patient had elective bariatric surgical procedure (HH repair) at [facility] on 09/09/2023 was discharged POD 1 09/10/23. Transition call made unable to reach patient call ended message read unavailable. CM to close case 09/28/23 program will be completed. 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 No EMR reviewed. Patient is enrolled in 30-day [facility] Transition of Care Ambulatory program post-hospital discharge on 08/25/23 Dx: Abdominal pain. Patient had elective bariatric surgical procedure (HH repair) at [facility] on 09/09/2023 was discharged POD 1 09/10/23. CM outreach completed patient reports doing okay feels like improves daily continuing to take it easy has follow up post op discharge on 09/25/23 at 1115. Patient appreciative for call. CM to continue to follow. Admission Discharged 09/09/2023 [facility] Medical Surgical Unit MSU H5 Hiatal hernia Dx Care Coordination Ania Box RN (Diamond Expert) Case Management Care Managment Initial Assessment Date: 09/10/2023 Patient Name: Sheyla Ramirez : 1945 Patient Information Source of Information: Patient Cognition/Language: WFL - Within Functional Limits Permission given to speak with patient footwear sales representative/careg iver as indicated: Confirmation of Payer [...] Living Prescription Coverage: Yes Pharmacy Used: [facility] [place] Medication Management: Independent Transportation/Shopp ing: Independent Transportation [...] a 77 y.o. female who presented to [facility] on 09/09/2023 for elective bariatric surgical procedure. [...] START taking (more content not included)... Normal [facility] BASIC METABOLIC PANELon 07-2 -2023 Anion gap [Moles/Vol] 6 mmol/L Normal 3-13 [facility] Comment on above: Performed By: #### L AB15 ####Architectural Examiner: KELLI CHILDS ([id number])[facility] ([facility])[address] [place] [address] Calcium [Mass/Vol] 8.7 mg/dL Normal 8.4-10.4 [facility] Comment on above: Performed By: #### L AB15 ####Architectural Examiner: KELLI CHILDS ([id number])[facility] ([facility])[address] [place] [address] Chloride [Moles/Vol] 106 mmol/L Normal 98-107 [facility] Comment on above: Performed By: #### L AB15 ####Architectural Examiner: KELLI CHILDS ([id number])[facility] ([facility])[address] [place] [address] CO2 [Moles/Vol] 24 mmol/L Normal 22-30 [facility] Comment on above: Performed By: #### L AB15 ####Architectural Examiner: KELLI CHILDS ([id number])[facility] ([facility])[address] [place] [address] Creatinine [Mass/Vol] 0.53 mg/dL Normal 0.52-1.04 [facility] Comment on above: Performed By: #### L AB15 ####Architectural Examiner: KELLI CHILDS ([id number])[facility])[address] [place] [address] GLOMERULAR FILTRATION RATE ML/MIN/1.73 SQ M.PREDICTED >90.0 Normal >60.0 [facility] Comment on above: Result Comment: Calc ulation based on the Chronic Kidney Disease Epidemiology Collaboration (CKD-EPI) equation refit without adjustment for race Performed By: #### L AB15 ####Architectural Examiner: KELLI CHILDS ([id number])[facility])[address] [place] [address] Glucose [Mass/Vol] 177 mg/dL High 70-100 [facility] Comment on above: Performed By: #### L AB15 ####Architectural Examiner: KELLI CHILDS ([id number])[facility])[address] [place] [address] Potassium [Moles/Vol] 4.2 mmol/L Normal 3.5-5.1 [facility] Comment on above: Performed By: #### L AB15 ####Architectural Examiner: KELLI CHILDS ([id number])[facility])[address] [place] [address] Sodium [Moles/Vol] 136 mmol/L Normal 135-145 [facility] Comment on above: Performed By: #### L AB15 ####Architectural Examiner: KELLI CHILDS ([id number])[facility])[address] [place] [address] Urea nitrogen [Mass/Vol] 11 mg/dL Normal 7-17 [facility] Comment on above: Performed By: #### L AB15 ####Architectural Examiner: KELLI CHILDS ([id number])[facility])[address] [place] [address] Basic metabolic 1998 panelon 09-10-2023 Anion gap [Moles/Vol] 6 mmol/L 3 - 13 mmol/L [facility] Calcium [Mass/Vol] 8.7 mg/dL 8.4 - 10. 4 mg/dL [facility] Chloride [Moles/Vol] 106 mmol/L 98 - 10 7 mmol/L [facility] CO2 [Moles/Vol] 24 mmol/L 22 - 30 mmol/L [facility] Creatinine [Mass/Vol] 0.53 mg/dL 0.52 - 1.04 mg/dL [facility] GFR/1.73 sq M.predicted MDRD (S/P/Bld) [Vol rate/Area] - PINF [facility] Comment on above: Calculation based on the Chronic Kidney Disease Epidemiology Collaboration (CKD-EPI) equation refit without adjustment for race Glucose [Mass/Vol] 177 mg/dL High 70 - 100 mg/dL [facility] Interpretation and review of laboratory results Abnormal [facility] Potassium [Moles/Vol] 4.2 mmol/L 3.5 - 5.1 mmol/L [facility] Sodium [Moles/Vol] 136 mmol/L 135 - 145 mmol/L [facility] Urea nitrogen [Mass/Vol] 11 mg/dL 7 - 17 mg/d L [facility] CAREC[facility]ORDon [facility]-10-2023 [facility] Care Managment Initial Assessment Date: 09/10/2023 Patient Name: Sheyla Ramirez : 1945 Patient Information Source of Information: Patient Cognition/Language: WFL - Within Functional Limits Permission given to speak with patient footwear sales representative/careg iver as indicated: Confirmation of Payer with patient/family: Yes Payer Name: Medicare [place]: No Confirmation of Primary Care Physician: Confirmed [...] Living Prescription Coverage: Yes [facility] [place] Medication Management: Independent Transportation/Shopp ing: Independent Transportation [...] needs from tcc. Ania Box RN Normal [facility] CBC (HEMOGRAM)on 09-10-2023 Erythrocyte distribution width (RBC) [Ratio] 13.2 % Normal 11.5-15.0 [facility] Comment on above: Performed By: #### L AB294 ####Architectural Examiner: KELLI CHILDS ([id number])[address] Hematocrit (Bld) [Volume fraction] 35.5 % Normal 35.0-47.0 [facility] Comment on above: Performed By: #### L AB294 ####Architectural Examiner: KELLI CHILDS ([id number])[address] Hemoglobin (Bld) [Mass/Vol] 11.7 g/dL Normal 11.7-16.0 [facility] Comment on above: Performed By: #### L AB294 ####Architectural Examiner: KELLI CHILDS ([id number])[address] MCH (RBC) [Entitic mass] 28.9 pg Normal 26.0-34.0 [facility] Comment on above: Performed By: #### L AB294 ####Architectural Examiner: KELLI [id number])[address] MCHC 33.0 % Normal 30.5-36.0 [facility] Comment on above: Performed By: #### L AB294 ####Architectural Examiner: KELLI CHILDS ([id number])[facility])[address] [place] [address] MCV (RBC) [Entitic vol] 87.7 fL Normal 77.0-99.0 [facility] Comment on above: Performed By: #### L AB294 ####Architectural Examiner: KELLI CHILDS ([id number])[facility])[address] [place] [address] Platelet mean volume (Bld) [Entitic vol] 10.9 fL Normal 9.0-12.7 [facility] Comment on above: Performed By: #### L AB294 ####Architectural Examiner: KELLI CHILDS ([id number])[facility] ([facility])[address] [place] [address] Platelets (Bld) [#/Vol] 202 10*3/uL Normal 140-440 [facility] Comment on above: Performed By: #### L AB294 ####Architectural Examiner: KELLI CHILDS ([id number])[facility])[address] [place] [address] RBC (Bld) [#/Vol] 4.05 10*6/uL Normal 3.80-5.20 [facility] Comment on above: Performed By: #### L AB294 ####Architectural Examiner: KELLI CHILDS ([id number])[facility])[address] [place] [address] WBC (Bld) [#/Vol] 11.0 10*3/uL High 3.6-10.7 [facility] Comment on above: Performed By: #### L AB294 ####Architectural Examiner: KELLI CHILDS ([id number])[facility])[address] [place] [address] CBC panel Auto (Bld)on 09-09 Erythrocyte distribution width (RBC) [Ratio] 13.2 % 11.5 - 15.0 % [facility] Hematocrit (Bld) [Volume fraction] 35.5 % 35.0 - 47.0 % [facility] Hemoglobin (Bld) [Mass/Vol] 11.7 g/dL 11.7 - 16.0 g/dL [facility] Interpretation and review of laboratory results Abnormal [facility] MCH (RBC) [Entitic mass] 28.9 pg 26. 0 - 34.0 pg [facility] MCHC (RBC) [Mass/Vol] 33.0 % 30.5 - 36.0 % [facility] MCV (RBC) [Entitic vol] 87.7 fL 77.0 - 99.0 fL [facility] Platelet mean volume (Bld) [Entitic vol] 10.9 fL 9.0 - 12.7 fL [facility] Platelets (Bld) [#/Vol] 202 10*3/uL 140 - 440 10*3/uL [facility] RBC (Bld) [#/Vol] 4.05 10*6/uL 3.80 - 5.2 0 10*6/uL [facility] WBC (Bld) [#/Vol] 11.0 10*3/uL High 3.6 - 10.7 10*3/uL [facility] ECG 12-LEADon 09-10-2023 ECG 12-LEAD IMPRESSION: Sinus rhythm LVH by voltage Inferior infarct, age indeterminate Electronically Signed On 09-10-2023 08:40:10 EDT by Man Celestin Normal [facility] IDNon 09-10-2023 IDN The patient is The patient's goals for the shift include The clinical goals for the shift include Over the shift, the patient did not make progress toward the following goals. Barriers to progression include . Recommendations to address these barriers include . Normal [facility] IDN The patient is The patient's goals for the shift include The clinical goals for the shift include Over the shift, the patient did not make progress toward the following goals. Barriers to progression include . Recommendations to address these barriers include . Normal [facility] - Chemistry and C hemistry - challengeon 09-10-2023 Glucose [Mass/Vol] 203 mg/dL High 70 - 100 mg/dL [facility] Glucose [Mass/Vol] 149 mg/dL High 70 - 100 mg/dL [facility] No Panel Informationon 09-09 Interpretation and review of laboratory results Abnormal [facility] Performed by: [facility], [address] [place] [address] CLIA ID: [id number] [facility] Interpretation and review of laboratory results Abnormal [facility] Performed by: [facility], [address] [facility] [place] [address] CLIA ID: [id number] [facility] Sinus rhythm LVH by voltage Inferior infarct, age indeterminate Electronically Signed On 09-10-2023 08:40:10 EDT by Man Celestin Man Godoy MD - 09/10/2023 IMPRESSION: Sinus rhythm LVH by voltage Inferior infarct, age indeterminate Electronically Signed On 09-10-2023 08:40:10 EDT by Man Celestin [facility] No Panel InformationOrdered By: Man Celestin on 09-10-2023 P [place]ou[place] 57 degrees [facility] Work Phone: [phone] DC Interval 148 ms [facility] Work Phone: QRS [place] -7 degrees [facility] Work Phone: QRSD Interval 76 ms [employer] Work Phone: [phone] QT Interval 346 ms [facility] Work Phone: QTC Interval 393 ms [facility] Work Phone: T Wave [place] -8 degrees [facility] Work Phone: [facility] Work Phone: [phone] Progress Noteon 09-10-2023 Progress Note Negative Normal [facility] [employer] [facility] Progress Note Attestation signed by Julian Kruse MD at 09/10/2023 11:11 AM [facility] [place] Patient Name: Sheyla Ramirez Date: 09/10/23 MIS-General Surgery/Bariatric Progress Note Subjective: The patient is doing well, postoperative day #1 from [employer]. No nausea, vomiting, or adverse events overnight. [...] service. Julian Kruse MD 09/10/2023, 11:11 AM [facility] Patient Name: Sheyla Ramirez [...] 18 95 (more content not included)... Normal [facility] Vital signsOrdered By: Man Celestin on 09-10-2023 Heart rate 77 /min bpm [facility] Work Phone: XR Abdomen and RF Gastrointe stinal tract upper W contrast Diony 09-10-2023 Changes consistent with Toupet fundoplication. No extravasation or obstruction. Report Dictated on Electronically Signed By: Kit Patel MD Electronically Signed Date/Time: 09/10/2023 11:06 AM EDT [facility] EMERGENCY DEPARTMENT [employer] Patient Name: SHEYLA RAMIREZ : 1945 [...] contrast emptying into the duodenum without obstruction. [facility] Kit Patel MD - 09/10/2023 Patient [...] Electronically Signed Date/Time: 09/10/2023 11:06 AM EDT [facility] Radiology Study observation (narrative) [facility] XR Abdomen and RF Gastrointe stinal tract upper W contrast POOrdered By: Kit Patel on 09-10-2023 [facility] BASIC METABOLIC PANELon 08-17 Anion gap [Moles/Vol] 12 mmol/L Normal 3-13 [facility] Comment on above: Performed By: #### L AB15 ####Architectural Examiner: KELLI CHILDS ([id number])[facility] ([facility])[address] [place] [address] Calcium [Mass/Vol] 8.9 mg/dL Normal 8.4-10.4 [facility] Comment on above: Performed By: #### L AB15 ####Architectural Examiner: KELLI CHILDS ([id number])[facility] ([facility])[address] [place] [address] [place] Chloride [Moles/Vol] 105 mmol/L Normal 98-107 [facility] Comment on above: Performed By: #### L AB15 ####Architectural Examiner: KELLI CHILDS ([id number])[facility] ([facility])[address] [place] [address] CO2 [Moles/Vol] 18 mmol/L Low 22-30 [facility] Comment on above: Performed By: #### L AB15 ####Architectural Examiner: KELLI CHILDS ([id number])[facility] ([facility])[address] [place] [address] Creatinine [Mass/Vol] 0.54 mg/dL Normal 0.52-1.04 [facility] Comment on above: Performed By: #### L AB15 ####Architectural Examiner: KELLI CHILDS ([id number])[facility])[address] [place] [address] GLOMERULAR FILTRATION RATE ML/MIN/1.73 SQ M.PREDICTED >90.0 Normal >60.0 [facility] Comment on above: Result Comment: Calc ulation based on the Chronic Kidney Disease Epidemiology Collaboration (CKD-EPI) equation refit without adjustment for race Performed By: #### L AB15 ####Architectural Examiner: KELLI CHILDS ([id number])[facility] ([facility])[address] [place] [address] Glucose [Mass/Vol] 301 mg/dL High 70-100 [facility] Comment on above: Performed By: #### L AB15 ####Architectural Examiner: KELLI CHILDS ([id number])[facility])[address] [place] [address] Potassium [Moles/Vol] 4.0 mmol/L Normal 3.5-5.1 [facility] Comment on above: Performed By: #### L AB15 ####Architectural Examiner: KELLI CHILDS ([id number])[facility])[address] [place] [address] [place] Sodium [Moles/Vol] 135 mmol/L Normal 135-145 [facility] Comment on above: Performed By: #### L AB15 ####Architectural Examiner: KELLI CHILDS ([id number])[facility])[address] [place] [address] Urea nitrogen [Mass/Vol] 20 mg/dL High 7-17 [facility] Comment on above: Performed By: #### L AB15 ####Architectural Examiner: KELLI CHILDS ([id number])[facility] [place] [address] [place] Basic metabolic 1998 panelon 09-09-2023 Anion gap [Moles/Vol] 12 mmol/L 3 - 13 mmol/L [facility] Calcium [Mass/Vol] 8.9 mg/dL 8.4 - 10. 4 mg/dL [facility] Chloride [Moles/Vol] 105 mmol/L 98 - 10 7 mmol/L [facility] CO2 [Moles/Vol] 18 mmol/L Low 22 - 30 mmol/L [facility] Creatinine [Mass/Vol] 0.54 mg/dL 0.52 - 1.04 mg/dL [facility] GFR/1.73 sq M.predicted MDRD (S/P/Bld) [Vol rate/Area] - PINF [facility] Comment on above: Calculation based on the Chronic Kidney Disease Epidemiology Collaboration (CKD-EPI) equation refit without adjustment for race Glucose [Mass/Vol] 301 mg/dL High 70 - 100 mg/dL [facility] Interpretation and review of laboratory results Abnormal [facility] Potassium [Moles/Vol] 4.0 mmol/L 3.5 - 5.1 mmol/L [facility] Sodium [Moles/Vol] 135 mmol/L 135 - 145 mmol/L [facility] Urea nitrogen [Mass/Vol] 20 mg/dL High 7 - 17 mg/d L [facility] HEMOGLOBIN AND HEMATOCRIT, B LOODon 09-09-2023 Hematocrit (Bld) [Volume fraction] 35.2 % Normal 35.0-47.0 [facility] Comment on above: Performed By: #### L [id number] ####Architectural Examiner: KELLI CHILDS ([id number])[facility] ([facility])[address] [place] [address] [place] Hemoglobin (Bld) [Mass/Vol] 11.2 g/dL Low 11.7-16.0 [facility] Comment on above: Performed By: #### L AB753 ####Architectural Examiner: KELLI CHILDS ([id number])[facility] [place] [address] [place] Hemoglobin (Bld) [Mass/Vol]o n 09-09-2023 Hematocrit (Bld) [Volume fraction] 35.2 % 35.0 - 47.0 % [facility] [employer] Interpretation and review of laboratory results Abnormal [facility] Laboratory - Chemistry and C hemistry - challengeon 09-09-2023 Glucose [Mass/Vol] 183 mg/dL High 70 - 100 mg/dL [facility] Health Glucose [Mass/Vol] 286 mg/dL High 70 - 100 mg/dL [facility] Glucose [Mass/Vol] 246 mg/dL High 70 - 100 mg/dL [facility] Glucose [Mass/Vol] 239 mg/dL High 70 - 100 mg/dL [facility] Glucose [Mass/Vol] 275 mg/dL High 70 - 100 mg/dL [facility] Glucose [Mass/Vol] 155 mg/dL High 70 - 100 mg/dL [facility] Laboratory - Hematology and Cell countson 09-09-2023 Hemoglobin (Bld) [Mass/Vol] 11.2 g/dL Low 11.7 - 16.0 g/dL [facility] [employer] No Panel Informationon 09-08 Interpretation and review of laboratory results Abnormal [facility] Performed by: [facility], [address] [place], [place] [id number] CLIA ID: [id number] [facility] [employer] [facility] Health Interpretation and review of laboratory results Abnormal [facility] Performed by: [facility], [address] [place] [address] CLIA ID: [id number] [facility] [employer] [facility] Health Interpretation and review of laboratory results Abnormal [facility] Performed by: [facility], [address] [place] [address] CLIA ID: [id number] [facility] [employer] [facility] Interpretation and review of laboratory results Abnormal [facility] Performed by: [facility], [address] [place] [address] CLIA ID: [id number] [facility] [employer] [facility] Health Interpretation and review of laboratory results Abnormal [facility] Performed by: [facility], [address] [place] [address] CLIA ID: [id number] [facility] [employer] [facility] Health Interpretation and review of laboratory results Abnormal [facility] Health Performed by: [facility], [address] [place] [address] CLIA ID: [id number] [facility] Nursing Noteon 09-09-2023 Nursing Note Updated family Normal [facility] Op Noteon 09-09-2023 Op Note [facility] - Surgery [facility] Physicians Surgery Patient Name: Sheyla Ramirez OPERATIVE NOTE DATE OF PROCEDURE: 09/09/2023 SURGEON: Julian Kruse MD BOOSTER PUMP OPERATOR: Татьяна Muñiz PA-C PREOPERATIVE DIAGNOSIS: Symptomatic Hiatal [...] into the abdomen by 5 cm. A Garnavillo drain was used to provide appropriate retraction. [...] the left and right awa around the 50-Lao bougie reapproximating the posterior defect created by the right and left posterior crural columns. At this point, because of the defect, a piece of biologic mesh was selected. A piece of [employer]Cell Gentrix Hiatal was utilized, rehydrated according to desulphuring operator's recommendations and introduced into the abdomen. It [...] PA-C was asked to serve as the housing assistant for this procedure. [facility] Progress Noteon 09-09-2023 Progress Note Preop blood glucose 155 [facility] Progress Noteon 09-04-2023 Progress Note Chart reviewed enrolled in 30-day [facility] Transition of Care Ambulatory program post-hospital discharge on 08/25/23 Dx: Abdominal pain. 2nd transitions call made introduced self and role. Patient reports doing fine denies any health questions or concerns reports did start her Metformin 500 mg twice a day. CM to schedule future outreach. [facility] Progress Noteon 08-28-2023 Progress Note Chart reviewed enrolled in 30-day [facility] Transition of [facility] Ambulatory program post-hospital discharge on 08/25/23 Dx: Abdominal pain. Unable to reach patient lvm CM to schedule future outreach. [facility] 36on 08-25-2023 36 PAT canceled [facility] 36 Cardiac ECHO & stress test performed on 08/18 obtained and reviewed - normal. Cardiac clearance obtained. Spoke to patient and let her know that she does NOT need to proceed with PAT tomorrow and we will cancel that appointment. Proceed with office appointment with Dr. Ceballos on Thursday. [facility] 36 ----- Message from Julian Kruse MD sent at 08/24/2023 4:54 PM EDT ----- Sha -she was admitted this weekend, I anticipate her going home on Thursday. She states that she had a stress test and other cardiac workup at [place], please see if you can find results in [facility]. She had an EGD with anesthesia [...] we did, she does not use MyChart [facility] CARECOORDon 08-25-2023 [place] Pt did have bm. Plan for discharge to home today. She denies any needs from tcc. [facility] [place] Patient had bowel movement yesterday Denies any abdominal pain, nausea, vomiting No chest pain, shortness of breath Afebrile, vital signs stable Accu-Cheks reviewed No lab data from today Plan DC home today Endocrinology team recommended to discontinue Ozempic. Recommended to continue glimepiride, started metformin 500 mg p.o. twice daily at the time of discharge. Full discharge summary to follow Normal [facility] IDNon 08-25-2023 IDN Problem: Pain - [...] and maintained or improved Outcome: Progressing Normal [facility] - Chemistry and C hemistry - challengeon 08-25-2023 Glucose [Mass/Vol] 129 mg/dL High 70 - 100 mg/dL [facility] No Panel Informationon 08-24 Interpretation and review of laboratory results Abnormal [facility] Performed by: [facility], [address] [place] [address] CLIA ID: [id number] [facility] 36on 08-24-2023 [address] hunt office , fax#: [phone]. Normal [facility] 36 Ana , can you please attach the following on [facility] letter head and fax to the following number [phone] . Thanks [address] Dr Bhakta , I am writing about mutual patient Sheyla Santo 1945 who was seen by me at [facility] when she was hospitalized for partial [...] our phone number for your reference. Thanks Juliette Vásquez MD [facility] Endocrinology Phone number: [phone] [facility] IDNon 08-24-2023 IDN Problem: Pain - Adult [...] and maintained or improved Outcome: Progressing Normal [facility] - Chemistry and C hemistry - challengeon 08-24-2023 Glucose [Mass/Vol] 161 mg/dL High 70 - 100 mg/dL [facility] Glucose [Mass/Vol] 123 mg/dL High 70 - 100 mg/dL [facility] Glucose [Mass/Vol] 158 mg/dL High 70 - 100 mg/dL [facility] Glucose [Mass/Vol] 132 mg/dL High 70 - 100 mg/dL [facility] No Panel Informationon 08-23 Interpretation and review of laboratory results Abnormal [facility] Performed by: [facility], [address] [place] [address] CLIA ID: [id number] [facility] Interpretation and review of laboratory results Abnormal [facility] Performed by: [facility], [address] [place] [address] CLIA ID: [id number] [facility] Interpretation and review of laboratory results Abnormal [facility] Performed by: [facility], [address] [place] [address] CLIA ID: [id number] [facility] Interpretation and review of laboratory results Abnormal [facility] Performed by: [facility], [address] [place] [address] CLIA ID: [id number] [facility] Progress Noteon 08-24-2023 Progress Note Department of Internal Medicine Division of Endocrinology, Diabetes, & Metabolism Endocrinology Note Patient Name: Sheyla Ramirez : 1945 AGE: 77 y.o. Room/Bed: [facility] A Admission Date: 08/21/2023 Visit Date: 08/24/2023 Reason for Endocrine Consult: dm-managed on ozempic , due to have hiatal hernia surgery soon. Admitted with GI dysmotility Provider/Team Requesting Consult: surgery PCP: LENA [place] Programmable Logic Controller Assembler: Yes Dr Sylvester Bhakta ASSESSMENT: Type 2 diabetes with hyperglycemia without alf insulin use Concern for partial large bowel [...] friend would like to follow up with [facility] endocrine until her hernia surgery later this month. She follows with endocrine Dr Bhakta in [place] but will not be able to see her until next month and would like to have endocrine on board in [facility] in the meantime. Phone number for endocrine [...] Current Outpatient (more content not included)... Normal [facility] Progress Note Attestation signed by Julian Kruse MD at 08/24/2023 4:53 PM [facility] Medical [facility] - Surgery [facility] Physicians Surgery Patient Name: Sheyla Ramirez [...] 165 158 BMP: Recent Labs 08/22/230 08/23/23 0039 NA 137 138 K 3.7 4.0 CL [...] Range Status (more content not included)... Normal [facility] CBC (HEMOGRAM)on 08-23-2023 Erythrocyte distribution width (RBC) [Ratio] 13.2 % Normal 11.5-15.0 [facility] Comment on above: Performed By: #### L [id number] ####Architectural Examiner: KELLI CHILDS ([id number])[facility])[address] [place] [address] Hematocrit (Bld) [Volume fraction] 37.1 % Normal 35.0-47.0 [facility] Comment on above: Performed By: #### L AB294 ####Architectural Examiner: KELLI CHILDS ([id number])[facility])[address] [place] [address] Hemoglobin (Bld) [Mass/Vol] 11.9 g/dL Normal 11.7-16.0 [facility] Comment on above: Performed By: #### L AB294 ####Architectural Examiner: KELLI CHILDS ([id number])[facility])[address] [place] [address] MCH (RBC) [Entitic mass] 28.5 pg Normal 26.0-34.0 [facility] Comment on above: Performed By: #### L AB294 ####Architectural Examiner: KELLI CHILDS ([id number])[facility])[address] [place] [address] MCHC 32.1 % Normal 30.5-36.0 [facility] Comment on above: Performed By: #### L AB294 ####Architectural Examiner: KELLI CHILDS ([id number])[facility])[address] [place] [address] MCV (RBC) [Entitic vol] 88.8 fL Normal 77.0-99.0 S [facility] Comment on above: Performed By: #### L AB294 ####Architectural Examiner: KELLI CHILDS ([id number])[facility])[address] [place] [address] Platelet mean volume (Bld) [Entitic vol] 10.3 fL Normal 9.0-12.7 [facility] Comment on above: Performed By: #### L AB294 ####Architectural Examiner: EKLLI CHILDS ([id number])[facility])[address] [place] [address] Platelets (Bld) [#/Vol] 158 10*3/uL Normal 140-440 [facility] Comment on above: Performed By: #### L AB294 ####Architectural Examiner: KELLI CHILDS ([id number])[facility])[address] [place] [address] RBC (Bld) [#/Vol] 4.18 10*6/uL Normal 3.80-5.20 [facility] Comment on above: Performed By: #### L AB294 ####Architectural Examiner: KELLI CHILDS ([id number])[facility])[address] [place] [address] WBC (Bld) [#/Vol] 5.9 10*3/uL Normal 3.6-10.7 [facility] Comment on above: Performed By: #### L AB294 ####Architectural Examiner: KELLI CHILDS ([id number])[facility])[address] [place] [address] CBC panel Auto (Bld)on 08-22 Erythrocyte distribution width (RBC) [Ratio] 13.2 % 11.5 - 15.0 % [facility] Hematocrit (Bld) [Volume fraction] 37.1 % 35.0 - 47.0 % [facility] Hemoglobin (Bld) [Mass/Vol] 11.9 g/dL 11.7 - 16.0 g/dL [facility] Interpretation and review of laboratory results Normal [facility] MCH (RBC) [Entitic mass] 28.5 pg 26. 0 - 34.0 pg [facility] MCHC (RBC) [Mass/Vol] 32.1 % 30.5 - 36.0 % [facility] MCV (RBC) [Entitic vol] 88.8 fL 77.0 - 99.0 fL [facility] Platelet mean volume (Bld) [Entitic vol] 10.3 fL 9.0 - 12.7 fL [facility] Platelets (Bld) [#/Vol] 158 10*3/uL 140 - 440 10*3/uL [facility] RBC (Bld) [#/Vol] 4.18 10*6/uL 3.80 - 5.2 0 10*6/uL [facility] WBC (Bld) [#/Vol] 5.9 10*3/uL 3.6 - 10.7 10*3/uL [facility] COMPREHENSIVE METABOLIC PANE Elder 08-23-2023 Albumin [Mass/Vol] 3.4 g/dL Low 3.5-5.0 [facility] Comment on above: Performed By: #### L AB17, [id number] ####Architectural Examiner: KELLI CHILDS ([id number])[address] ALP [Catalytic activity/Vol] 65 U/L Normal 38-126 [facility] Comment on above: Performed By: #### L AB17, [id number] ####Architectural Examiner: KELLI CHILDS ([id number])[facility] ([facility])[address] [place] [address] ALT [Catalytic activity/Vol] 20 U/L Normal 0-34 [facility] Comment on above: Performed By: #### L AB17, [id number] ####Architectural Examiner: KELLI CHILDS ([id number])[facility])[address] [place] [address] Anion gap [Moles/Vol] 8 mmol/L Normal 3-13 [facility] Comment on above: Performed By: #### L AB17, [id number] ####Architectural Examiner: KELLI CHILDS ([id number])[facility] [place] [address] AST [Catalytic activity/Vol] 23 U/L Normal 15-46 [facility] Comment on above: Performed By: #### L AB17, [id number] ####Architectural Examiner: KELLI CHILDS ([id number])[facility] ([facility])[address] [place] [address] Bilirubin [Mass/Vol] 0.6 mg/dL Normal 0.2-1.3 [facility] Comment on above: Performed By: #### L AB17, [id number] ####Architectural Examiner: KELLI CHILDS ([id number])[facility] ([facility])[address] [place] [address] Calcium [Mass/Vol] 9.2 mg/dL Normal 8.4-10.4 [facility] Comment on above: Performed By: #### L AB17, [id number] ####Architectural Examiner: KELLI CHILDS ([id number])[facility] ([facility])[address] [place] [address] [place] Chloride [Moles/Vol] 108 mmol/L High 98-107 [facility] Comment on above: Performed By: #### L AB17, [id number] ####Architectural Examiner: KELLI CHILDS ([id number])[facility] ([facility])[address] [place] [address] [place] CO2 [Moles/Vol] 23 mmol/L Normal 22-30 [facility] Comment on above: Performed By: #### L AB17, [id number] ####Architectural Examiner: KELLI CHILDS ([id number])[facility] ([facility])[address] [place] [address] [place] Creatinine [Mass/Vol] 0.58 mg/dL Normal 0.52-1.04 [facility] Comment on above: Performed By: #### L AB17, [id number] ####Architectural Examiner: KELLI CHILDS ([id number])[facility] ([facility])[address] [place] [address] GLOMERULAR FILTRATION RATE ML/MIN/1.73 SQ M.PREDICTED >90.0 Normal >60.0 [facility] Comment on above: Result Comment: Calc ulation based on the Chronic Kidney Disease Epidemiology Collaboration (CKD-EPI) equation refit without adjustment for race Performed By: #### L AB17, [id number] ####Architectural Examiner: KELLI CHILDS ([id number])[facility])[address] [place] [address] Glucose [Mass/Vol] 96 mg/dL Normal 70-100 [facility] Comment on above: Performed By: #### L AB17, [id number] ####Architectural Examiner: KELLI CHILDS ([id number])[facility] [facility] [place] [address] Potassium [Moles/Vol] 4.0 mmol/L Normal 3.5-5.1 [facility] Comment on above: Performed By: #### L [id number], [id number] ####Architectural Examiner: KELLI CHILDS ([id number])[facility])[address] [place] [address] Protein [Mass/Vol] 6.0 g/dL Low 6.3-8.2 [facility] Comment on above: Performed By: #### L AB17, [id number] ####Architectural Examiner: KELLI CHILDS ([id number])[facility])[address] [place] [address] Sodium [Moles/Vol] 138 mmol/L Normal 135-145 [facility] Comment on above: Performed By: #### L AB17, [id number] ####Architectural Examiner: KELLI CHILDS ([id number])[facility])[address] [place] [address] [place] Urea nitrogen [Mass/Vol] 8 mg/dL Normal 7-17 [facility] Comment on above: Performed By: #### L AB17, [id number] ####Architectural Examiner: KELLI CHILDS ([id number])[facility])[address] [place] [address] Comprehensive metabolic 1998 panelon 08-23-2023 Albumin [Mass/Vol] 3.4 g/dL Low 3.5 - 5.0 g/dL [facility] ALP [Catalytic activity/Vol] 65 U/L 38 - 126 U/L [facility] ALT [Catalytic activity/Vol] 20 U/L 0 - 34 U/L [facility] Anion gap [Moles/Vol] 8 mmol/L 3 - 13 mmol/L [facility] AST [Catalytic activity/Vol] 23 U/L 15 - 46 U/L [facility] Bilirubin [Mass/Vol] 0.6 mg/dL 0.2 - 1 .3 mg/dL [facility] Calcium [Mass/Vol] 9.2 mg/dL 8.4 - 10. 4 mg/dL [facility] Chloride [Moles/Vol] 108 mmol/L High 98 - 10 7 mmol/L [facility] CO2 [Moles/Vol] 23 mmol/L 22 - 30 mmol/L [facility] Creatinine [Mass/Vol] 0.58 mg/dL 0.52 - 1.04 mg/dL [facility] GFR/1.73 sq M.predicted MDRD (S/P/Bld) [Vol rate/Area] - PINF [facility] Comment on above: Calculation based on the Chronic Kidney Disease Epidemiology Collaboration (CKD-EPI) equation refit without adjustment for race Glucose [Mass/Vol] 96 mg/dL 70 - 100 mg/dL [facility] Interpretation and review of laboratory results Abnormal [facility] Potassium [Moles/Vol] 4.0 mmol/L 3.5 - 5.1 mmol/L [facility] Protein [Mass/Vol] 6.0 g/dL Low 6.3 - 8.2 g/dL [facility] Sodium [Moles/Vol] 138 mmol/L 135 - 145 mmol/L [facility] Urea nitrogen [Mass/Vol] 8 mg/dL 7 - 17 mg/d L [facility] Consulton 08-23-2023 Consult Department of Internal Medicine Division of Endocrinology, Diabetes, & Metabolism Endocrinology Note Patient Name: Sheyla Ramirez : 1945 AGE: 77 y.o. Room/Bed: [facility] A Admission Date: 08/21/2023 Visit Date: 08/23/2023 Reason for Endocrine Consult: dm-managed on ozempic , due to have hiatal hernia surgery soon. Admitted with GI dysmotility Provider/Team Requesting Consult: surgery PCP: LENA THORNE Outpt Programmable Logic Controller Assembler: Yes Dr Sylvester Bhakta ASSESSMENT: Type 2 diabetes with hyperglycemia without oysterman insulin use Concern for partial large bowel [...] before breakfast (more content not included)... Normal [facility] IDNon 08-23-2023 IDN Problem: Pain - Adult [...] and maintained or improved Outcome: Progressing Normal [facility] Laboratory - Chemistry and C hemistry - challengeon 08-23-2023 Glucose [Mass/Vol] 170 mg/dL High 70 - 100 mg/dL [facility] Glucose [Mass/Vol] 143 mg/dL High 70 - 100 mg/dL [facility] Glucose [Mass/Vol] 133 mg/dL High 70 - 100 mg/dL [facility] TSH Qn 1.130 m[IU]/L [facility] Glucose [Mass/Vol] 101 mg/dL High 70 - 100 mg/dL [facility] No Panel Informationon 08-22 Interpretation and review of laboratory results Abnormal [facility] Performed by: [facility], [address] [place] [address] CLIA ID: [id number] [facility] Interpretation and review of laboratory results Abnormal [facility] Performed by: [facility], [address] [place] [address] CLIA ID: [id number] [facility] Interpretation and review of laboratory results Abnormal [facility] Performed by: [facility], [address] [place] [address] CLIA ID: [id number] [facility] Interpretation and review of laboratory results Abnormal [facility] Performed by: [facility], [address] [place] [address] CLIA ID: [id number] [facility] Progress Noteon 08-23-2023 Progress Note Nutrition rescreen completed. Patient referred to the Dietitian. A1C 8.4; Uncontrolled DM. Normal [facility] THYROID STIMULATING HORMONEo n 08-23-2023 THYROID STIMULATING HORMONE 1.130 uIU/mL Normal 0.465-4.680 [facility] Comment on above: Performed By: #### L AB17, [id number] ####Architectural Examiner: KELLI CHILDS ([id number])[facility] ([facility])[address] [place] [address] [place] TSH Qnon 08-23-2023 Interpretation and review of laboratory results Normal [facility] BASIC METABOLIC PANELon 07- Anion gap [Moles/Vol] 10 mmol/L Normal 3-13 [facility] Comment on above: Performed By: #### L AB15 ####Architectural Examiner: KELLI CHILDS ([id number])[facility] ([facility])[address] [place] [address] Calcium [Mass/Vol] 8.7 mg/dL Normal 8.4-10.4 [facility] Comment on above: Performed By: #### L AB15 ####Architectural Examiner: KELLI CHILDS ([id number])[facility] ([facility])[address] [place] [address] [place] Chloride [Moles/Vol] 106 mmol/L Normal 98-107 [facility] Comment on above: Performed By: #### L AB15 ####Architectural Examiner: KELLI CHILDS ([id number])[facility] ([facility])[address] [place] [address] [place] CO2 [Moles/Vol] 22 mmol/L Normal 22-30 [facility] Comment on above: Performed By: #### L AB15 ####Architectural Examiner: KELLI [id number])[facility] ([facility])[address] [place] [address] Creatinine [Mass/Vol] 0.63 mg/dL Normal 0.52-1.04 [facility] Comment on above: Performed By: #### L AB15 ####Architectural Examiner: KELLI [id number])[facility])[address] [place] [address] GLOMERULAR FILTRATION RATE ML/MIN/1.73 SQ M.PREDICTED >90.0 Normal >60.0 [facility] Comment on above: Result Comment: Calc ulation based on the Chronic Kidney Disease Epidemiology Collaboration (CKD-EPI) equation refit without adjustment for race Performed By: #### L AB15 ####Architectural Examiner: KELLI CHILDS ([id number])[facility] ([facility])[address] [place] [address] Glucose [Mass/Vol] 175 mg/dL High 70-100 [facility] Comment on above: Performed By: #### L AB15 ####Architectural Examiner: KELLI CHILDS ([id number])[facility])[address] [place] [address] Potassium [Moles/Vol] 3.7 mmol/L Normal 3.5-5.1 [facility] Comment on above: Performed By: #### L [id number] ####Architectural Examiner: KELLI CHILDS ([id number])[facility] ([facility])[address] [place] [address] Sodium [Moles/Vol] 137 mmol/L Normal 135-145 [facility] Comment on above: Performed By: #### L [id number] ####Architectural Examiner: KELLI CHILDS ([id number])[facility])[address] [place] [address] Urea nitrogen [Mass/Vol] 10 mg/dL Normal 7-17 [facility] Comment on above: Performed By: #### L AB15 ####Architectural Examiner: KELLI CHILDS ([id number])[facility])[address] [place] [address] Basic metabolic 1998 panelon 08-22-2023 Anion gap [Moles/Vol] 10 mmol/L 3 - 13 mmol/L [facility] Calcium [Mass/Vol] 8.7 mg/dL 8.4 - 10. 4 mg/dL [facility] Chloride [Moles/Vol] 106 mmol/L 98 - 10 7 mmol/L [facility] CO2 [Moles/Vol] 22 mmol/L 22 - 30 mmol/L [facility] [employer] Creatinine [Mass/Vol] 0.63 mg/dL 0.52 - 1.04 mg/dL [facility] [employer] GFR/1.73 sq M.predicted MDRD (S/P/Bld) [Vol rate/Area] - PINF [facility] [employer] Comment on above: Calculation based on the Chronic Kidney Disease Epidemiology Collaboration (CKD-EPI) equation refit without adjustment for race Glucose [Mass/Vol] 175 mg/dL High 70 - 100 mg/dL [facility] [employer] Interpretation and review of laboratory results Abnormal [facility] [employer] Potassium [Moles/Vol] 3.7 mmol/L 3.5 - 5.1 mmol/L [facility] [employer] Sodium [Moles/Vol] 137 mmol/L 135 - 145 mmol/L [facility] [employer] Urea nitrogen [Mass/Vol] 10 mg/dL 7 - 17 mg/d L [facility] [employer] [facility] [employer] [facility]-2023 [facility] Initial Assessment Date: 08/22/2023 Patient Name: Sheyla Ramirez : 1945 Patient Information Source of Information: Patient Cognition/Language: WFL - Within Functional Limits Permission given to speak with patient 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 Lizbeth Valdez RN Normal [facility] CBC W Auto Differential pane l (Bld)Ordered By: Dion Hernandez on 08-22-2023 Basophils (Bld) [#/Vol] 0.0 10*3/uL 0.0 - 0.2 10*3/uL [facility] [employer] Basophils/100 WBC (Bld) 0.5 % 0.0 - 2.0 % [facility] Eosinophils (Bld) [#/Vol] 0.1 10*3/uL 0.0 - 0.5 10*3/uL [facility] [employer] Eosinophils/100 WBC (Bld) 1.7 % 0.0 - 6.0 % [facility] [employer] Erythrocyte distribution width (RBC) [Ratio] 13.1 % 11.5 - 15.0 % [facility] Hematocrit (Bld) [Volume fraction] 37.5 % 35.0 - 47.0 % [facility] Hemoglobin (Bld) [Mass/Vol] 11.8 g/dL 11.7 - 16.0 g/dL [facility] [employer] Immature granulocytes (Bld) [#/Vol] 0.0 10*3/uL NINF - 0.1 10*3/uL [facility] [employer] Immature granulocytes/100 WBC (Bld) 0.3 % 0.0 - 2.0 % [facility] [employer] Interpretation and review of laboratory results Normal [facility] Lymphocytes (Bld) [#/Vol] 2.6 10*3/uL 1.0 - 4.3 10*3/uL [facility] [employer] Lymphocytes/100 WBC (Bld) 44.0 % 15.0 - 45.0 % [facility] [employer] MCH (RBC) [Entitic mass] 27.8 pg 26. 0 - 34.0 pg [facility] MCHC (RBC) [Mass/Vol] 31.5 % 30.5 - 36.0 % [facility] MCV (RBC) [Entitic vol] 88.2 fL 77.0 - 99.0 fL [facility] Monocytes (Bld) [#/Vol] 0.5 10*3/uL 0.0 - 0.9 10*3/uL [facility] Monocytes/100 WBC (Bld) 8.1 % 5.0 - 13.0 % [facility] Neutrophils (Bld) [#/Vol] 2.7 10*3/uL 1.8 - 7.5 10*3/uL [facility] Neutrophils/100 WBC (Bld) 45.4 % 38.0 - 82.0 % [facility] Nucleated RBC/100 WBC (Bld) [Ratio] 0.0 % [facility] Platelet mean volume (Bld) [Entitic vol] 10.6 fL 9.0 - 12.7 fL [facility] Platelets (Bld) [#/Vol] 165 10*3/uL 140 - 440 10*3/uL [facility] RBC (Bld) [#/Vol] 4.25 10*6/uL 3.80 - 5.2 0 10*6/uL [facility] WBC (Bld) [#/Vol] 5.9 10*3/uL 3.6 - 10.7 10*3/uL [facility] CBC WITH AUTO DIFFERENTIALon 08-22-2023 Basophils (Bld) [#/Vol] 0.0 10*3/uL Normal 0.0-0.2 [facility] Comment on above: Performed By: #### L [id number] ####Architectural Examiner: KELLI CHILDS ([id number])[facility] ([facility])[address] [place] [address] Basophils/100 WBC (Bld) 0.5 % Normal 0.0-2.0 [facility] Comment on above: Performed By: #### L [id number] ####Architectural Examiner: KELLI CHILDS ([id number])[facility] ([facility])[address] [place] [address] [place] Eosinophils (Bld) [#/Vol] 0.1 10*3/uL Normal 0.0-0.5 [facility] Comment on above: Performed By: #### L [id number] ####Architectural Examiner: KELLI CHILDS ([id number])[facility])[address] [place] [address] Eosinophils/100 WBC (Bld) 1.7 % Normal 0.0-6.0 [facility] Comment on above: Performed By: #### L [id number] ####Architectural Examiner: KELLI CHILDS ([id number])[facility])[address] [place] [address] Erythrocyte distribution width (RBC) [Ratio] 13.1 % Normal 11.5-15.0 [facility] Comment on above: Performed By: #### L [id number] ####Architectural Examiner: KELLI CHILDS ([id number])[address] Hematocrit (Bld) [Volume fraction] 37.5 % Normal 35.0-47.0 [facility] Comment on above: Performed By: #### L [id number] ####Architectural Examiner: KELLI CHILDS ([id number])[address] Hemoglobin (Bld) [Mass/Vol] 11.8 g/dL Normal 11.7-16.0 [facility] Comment on above: Performed By: #### L [id number] ####Architectural Examiner: KELLI CHILDS ([id number])[facility])[address] [place] [address] IMMATURE GRANS % 0.3 % Normal 0.0-2.0 [facility] Comment on above: Performed By: #### L [id number] ####Architectural Examiner: KELLI CHILDS ([id number])[address] IMMATURE GRANS ABSOLUTE 0.0 10*3/uL Normal <0.1 [facility] Comment on above: Performed By: #### L [id number] ####Architectural Examiner: KELLI CHILDS ([id number])[facility])[address] [place] [address] Lymphocytes (Bld) [#/Vol] 2.6 10*3/uL Normal 1.0-4.3 [facility] Comment on above: Performed By: #### L [id number] ####Architectural Examiner: KELLI CHILDS ([id number])[facility])[address] [place] [address] Lymphocytes/100 WBC (Bld) 44.0 % Normal 15.0-45.0 [facility] Comment on above: Performed By: #### L [id number] ####Architectural Examiner: KELLI CHILDS ([id number])[facility])[address] [place] [address] MCH (RBC) [Entitic mass] 27.8 pg Normal 26.0-34.0 [facility] Comment on above: Performed By: #### L [id number] ####Architectural Examiner: KELLI CHILDS ([id number])[facility])[address] [place] [address] MCHC 31.5 % Normal 30.5-36.0 [facility] Comment on above: Performed By: #### L [id number] ####Architectural Examiner: KELLI CHILDS ([id number])[facility])[address] [place] [address] MCV (RBC) [Entitic vol] 88.2 fL Normal 77.0-99.0 [facility] Comment on above: Performed By: #### L [id number] ####Architectural Examiner: KELLI CHILDS ([id number])[facility])[address] [place] [address] Monocytes (Bld) [#/Vol] 0.5 10*3/uL Normal 0.0-0.9 [facility] Comment on above: Performed By: #### L [id number] ####Architectural Examiner: KELLI CHILDS ([id number])[facility] [place] [address] Monocytes/100 WBC (Bld) 8.1 % Normal 5.0-13.0 [facility] Comment on above: Performed By: #### L [id number] ####Architectural Examiner: KELLI CHILDS ([id number])[facility] ([facility])[address] [place] [address] NEUTROPHILS ABSOLUTE 2.7 10*3/uL Normal 1.8-7.5 [facility] Comment on above: Performed By: #### L [id number] ####Architectural Examiner: KELLI CHILDS ([id number])[facility] ([facility])[address] [place] [address] Neutrophils/100 WBC (Bld) 45.4 % Normal 38.0-82.0 [facility] Comment on above: Performed By: #### L [id number] ####Architectural Examiner: KELLI CHILDS ([id number])[facility] ([facility])[address] [place] [address] NRBC 0.0 /100 WBCs Normal 0.0-2.0 [facility] Comment on above: Performed By: #### L [id number] ####Architectural Examiner: KELLI CHILDS ([id number])[facility] ([facility])[address] [place] [address] Platelet mean volume (Bld) [Entitic vol] 10.6 fL Normal 9.0-12.7 [facility] Comment on above: Performed By: #### L [id number] ####Architectural Examiner: KELLI CHILDS ([id number])[facility] ([facility])[address] [place] [address] [place] Platelets (Bld) [#/Vol] 165 10*3/uL Normal 140-440 [facility] Comment on above: Performed By: #### L [id number] ####Architectural Examiner: KELLI CHILDS ([id number])[facility] ([facility])[address] [place] [address] [place] RBC (Bld) [#/Vol] 4.25 10*6/uL Normal 3.80-5.20 [facility] Comment on above: Performed By: #### L [id number] ####Architectural Examiner: KELLI CHILDS ([id number])[facility] ([facility])[address] [place] [address] WBC (Bld) [#/Vol] 5.9 10*3/uL Normal 3.6-10.7 [facility] Comment on above: Performed By: #### L [id number] ####Architectural Examiner: KELLI CHILDS ([id number])[facility] ([facility])[address] [place] [address] IDNon 08-22-2023 IDN Problem: Pain - Adult [...] and maintained or improved Outcome: Progressing Normal [facility] IDN The patient is Moderately Stable [...] and maintained or improved Outcome: Progressing Normal [facility] Laboratory - Chemistry and C hemistry - challengeon 08-22-2023 Glucose [Mass/Vol] 113 mg/dL High 70 - 100 mg/dL [facility] Glucose [Mass/Vol] 197 mg/dL High 70 - 100 mg/dL [facility] Glucose [Mass/Vol] 115 mg/dL High 70 - 100 mg/dL [facility] Glucose [Mass/Vol] 61 mg/dL Low 70 - 100 mg/dL [facility] Glucose [Mass/Vol] 91 mg/dL 70 - 100 mg/dL [facility] Glucose [Mass/Vol] 157 mg/dL High 70 - 100 mg/dL [facility] Glucose [Mass/Vol] 64 mg/dL Low 70 - 100 mg/dL [facility] Average glucose Estimated from glycated hemoglobin (Bld) [Mass/Vol] 194 mg/dL [facility] Laboratory - Hematology and Cell countson 08-22-2023 HbA1c (Bld) [Mass fraction] 8.4 % High NINF - 5.7 % [facility] Comment on above: Normal less than 5.7 % Prediabetes 5.7% to 6.4% Diabetes 6.5% or higher --HgbA1C levels may not be accurate in patients who have renal disease, received recent blood transfusions, are anemic, or who have dyshemoglobinemia. No Panel Informationon 08-21 Interpretation and review of laboratory results Abnormal [facility] Performed by: [facility], [address] [place] [address] CLIA ID: [id number] [facility] [employer] [facility] Interpretation and review of laboratory results Abnormal [facility] Performed by: [facility], [address] [place] [address] CLIA ID: [id number] [facility] [employer] [facility] Interpretation and review of laboratory results Abnormal [facility] Performed by: [facility], [address] [place] [address] CLIA ID: [id number] [facility] [employer] [facility] Interpretation and review of laboratory results Abnormal [facility] Performed by: [facility], [address] [place] [address] CLIA ID: [id number] [facility] [employer] [facility] Interpretation and review of laboratory results Normal [facility] Performed by: [facility], [address] [place] [address] CLIA ID: [id number] [facility] [employer] [facility] Interpretation and review of laboratory results Abnormal [facility] Performed by: [facility], [address] [place] [address] CLIA ID: [id number] [facility] [employer] [facility] Interpretation and review of laboratory results Abnormal [facility] Performed by: [facility], [address] [place] [address] CLIA ID: [id number] [facility] [employer] [facility] Interpretation and review of laboratory results Abnormal [facility] Progress Noteon 08-22-2023 Progress Note No anastomotic stricture present on flex sig Results d/w patient Recommend GI work-up for other causes Colorectal surgery will sign off Please page with questions Val Chan MD Normal [facility] Progress Note Attestation signed by Val Chan [...] Ringer's, 75 mL/hr, Last Rate: 75 mL/hr (08/21/23 2130) PRN Meds:PRN medications: [Transfer Hold] acetaminophen OR [...] for pa (more content not included)... Normal [facility] US ABDOMEN COMPLETEon 2023 US ABDOMEN COMPLETE Patient Name: SHEYLA RAMIREZ : 1945 Exam [...] Electronically Signed Date/Time: 08/22/2023 1:15 PM EDT [facility] US Abdomenon 08-22-2023 1. No cholelithiasis or evidence of acute cholecystitis. 2. Mild dilatation of the common bile duct measuring up to 9 mm. Recommend correlation with LFTs for evidence of obstruction. MRI/MRCP could be considered for further evaluation. Report Dictated on Electronically Signed By: Zi Simms DR Electronically Signed Date/Time: 08/22/2023 1:15 PM EDT [facility] Name[facility] 1945 [id number] Exam Date/Time: 08/22/2023 13:08 Procedure: US ABDOMEN [...] aorta and IVC are normal in caliber. [facility] Zi Simms MD - 08/22/2023 Patient Name: SHEYLA RAMIREZ [...] Electronically Signed Date/Time: 08/22/2023 1:15 PM EDT [facility] Radiology Study observation (narrative) [facility] alth US AbdomenOrdered By: Zi Simms on 08-22-2023 [facility] [employer] Work Phone: 36on 08-21-2023 36 Called pt back and relayed message below. Verbalized understanding [facility] 36 Spoke to police detention attendant physician, recommend proceeding through ER, thanks. [facility] 36 [address] pt [address] Bowser. [...] will be in the car together) Normal [facility] BASIC METABOLIC PANELon 07-0 Anion gap [Moles/Vol] 9 mmol/L Normal 3-13 [facility] Comment on above: Performed By: #### L AB15, LAB20, LAB99 ####Architectural Examiner: KELLI CHILDS ([id number])[facility])[address] [place] [address] Calcium [Mass/Vol] 9.6 mg/dL Normal 8.4-10.4 [facility] Comment on above: Performed By: #### L AB15, LAB20, LAB99 ####Architectural Examiner: KELLI CHILDS ([id number])[facility])[address] [place] [address] [place] Chloride [Moles/Vol] 104 mmol/L Normal 98-107 [facility] Comment on above: Performed By: #### L AB15, LAB20, LAB99 ####Architectural Examiner: KELLI CHILDS ([id number])[facility])[address] [place] [address] [place] CO2 [Moles/Vol] 26 mmol/L Normal 22-30 [facility] Comment on above: Performed By: #### L AB15, LAB20, LAB99 ####Architectural Examiner: KELLI CHILDS ([id number])[facility])[address] [place] [address] Creatinine [Mass/Vol] 0.66 mg/dL Normal 0.52-1.04 [facility] Comment on above: Performed By: #### L AB15, LAB20, LAB99 ####Architectural Examiner: KELLI CHILDS ([id number])[facility])[address] [place] [address] GLOMERULAR FILTRATION RATE ML/MIN/1.73 SQ M.PREDICTED >90.0 Normal >60.0 [facility] Comment on above: Result Comment: Calc ulation based on the Chronic Kidney Disease Epidemiology Collaboration (CKD-EPI) equation refit without adjustment for race Performed By: #### L AB15, LAB20, LAB99 ####Architectural Examiner: KELLI CHILDS ([id number])[facility] ([facility])[address] [place] [address] Glucose [Mass/Vol] 115 mg/dL High 70-100 [facility] Comment on above: Performed By: #### L AB15, LAB20, LAB99 ####Architectural Examiner: KELLI CHILDS ([id number])[facility])[address] [place] [address] Potassium [Moles/Vol] 4.2 mmol/L Normal 3.5-5.1 [facility] Comment on above: Performed By: #### L AB15, LAB20, LAB99 ####Architectural Examiner: KELLI CHILDS ([id number])[facility] ([facility])[address] [place] [address] Sodium [Moles/Vol] 138 mmol/L Normal 135-145 [facility] Comment on above: Performed By: #### L AB15, LAB20, LAB99 ####Architectural Examiner: KELLI CHILDS ([id number])[facility])[address] [place] [address] Urea nitrogen [Mass/Vol] 14 mg/dL Normal 7-17 [facility] Comment on above: Performed By: #### L AB15, LAB20, LAB99 ####Architectural Examiner: KELLI CHILDS ([id number])[facility])[address] [place] [address] Basic metabolic 1998 panelon 08-21-2023 Anion gap [Moles/Vol] 9 mmol/L 3 - 13 mmol/L [facility] Calcium [Mass/Vol] 9.6 mg/dL 8.4 - 10. 4 mg/dL [facility] Chloride [Moles/Vol] 104 mmol/L 98 - 10 7 mmol/L [facility] CO2 [Moles/Vol] 26 mmol/L 22 - 30 mmol/L [facility] Creatinine [Mass/Vol] 0.66 mg/dL 0.52 - 1.04 mg/dL [facility] GFR/1.73 sq M.predicted MDRD (S/P/Bld) [Vol rate/Area] - PINF [facility] Comment on above: Calculation based on the Chronic Kidney Disease Epidemiology Collaboration (CKD-EPI) equation refit without adjustment for race Glucose [Mass/Vol] 115 mg/dL High 70 - 100 mg/dL [facility] Interpretation and review of laboratory results Abnormal [facility] Potassium [Moles/Vol] 4.2 mmol/L 3.5 - 5.1 mmol/L [facility] Sodium [Moles/Vol] 138 mmol/L 135 - 145 mmol/L [facility] Urea nitrogen [Mass/Vol] 14 mg/dL 7 - 17 mg/d L [facility] CBC W Auto Differential pane l (Bld)on 08-21-2023 Basophils (Bld) [#/Vol] 0.0 10*3/uL 0.0 - 0.2 10*3/uL [facility] Basophils/100 WBC (Bld) 0.5 % 0.0 - 2.0 % [facility] Eosinophils (Bld) [#/Vol] 0.0 10*3/uL 0.0 - 0.5 10*3/uL [facility] Eosinophils/100 WBC (Bld) 0.7 % 0.0 - 6.0 % [facility] Erythrocyte distribution width (RBC) [Ratio] 13.2 % 11.5 - 15.0 % [facility] Hematocrit (Bld) [Volume fraction] 43.2 % 35.0 - 47.0 % [facility] Hemoglobin (Bld) [Mass/Vol] 14.1 g/dL 11.7 - 16.0 g/dL [facility] Immature granulocytes (Bld) [#/Vol] 0.0 10*3/uL NINF - 0.1 10*3/uL [facility] Immature granulocytes/100 WBC (Bld) 0.3 % 0.0 - 2.0 % [facility] Interpretation and review of laboratory results Normal [facility] Lymphocytes (Bld) [#/Vol] 1.4 10*3/uL 1.0 - 4.3 10*3/uL [facility] Lymphocytes/100 WBC (Bld) 24.4 % 15.0 - 45.0 % [facility] MCH (RBC) [Entitic mass] 28.4 pg 26. 0 - 34.0 pg [facility] MCHC (RBC) [Mass/Vol] 32.6 % 30.5 - 36.0 % [facility] MCV (RBC) [Entitic vol] 87.1 fL 77.0 - 99.0 fL [facility] Monocytes (Bld) [#/Vol] 0.5 10*3/uL 0.0 - 0.9 10*3/uL [facility] Monocytes/100 WBC (Bld) 7.9 % 5.0 - 13.0 % [facility] Neutrophils (Bld) [#/Vol] 3.8 10*3/uL 1.8 - 7.5 10*3/uL [facility] Neutrophils/100 WBC (Bld) 66.2 % 38.0 - 82.0 % [facility] Nucleated RBC/100 WBC (Bld) [Ratio] 0.0 % [facility] [employer] Platelet mean volume (Bld) [Entitic vol] 10.3 fL 9.0 - 12.7 fL [facility] [employer] Platelets (Bld) [#/Vol] 190 10*3/uL 140 - 440 10*3/uL [facility] RBC (Bld) [#/Vol] 4.96 10*6/uL 3.80 - 5.2 0 10*6/uL [facility] WBC (Bld) [#/Vol] 5.7 10*3/uL 3.6 - 10.7 10*3/uL [facility] CBC WITH AUTO DIFFERENTIALon 08-21-2023 Basophils (Bld) [#/Vol] 0.0 10*3/uL Normal 0.0-0.2 [facility] Comment on above: Performed By: #### L [id number] ####Architectural Examiner: KELLI CHILDS ([id number])[facility] ([address] Basophils/100 WBC (Bld) 0.5 % Normal 0.0-2.0 [facility] Comment on above: Performed By: #### L [id number] ####Architectural Examiner: KELLI CHILDS ([id number])[facility])[address] [place] [address] Eosinophils (Bld) [#/Vol] 0.0 10*3/uL Normal 0.0-0.5 [facility] Comment on above: Performed By: #### L [id number] ####Architectural Examiner: KELLI CHILDS ([id number])[facility])[address] [place] [address] Eosinophils/100 WBC (Bld) 0.7 % Normal 0.0-6.0 [facility] Comment on above: Performed By: #### L [id number] ####Architectural Examiner: KELLI CHILDS ([id number])[facility])[address] [place] [address] Erythrocyte distribution width (RBC) [Ratio] 13.2 % Normal 11.5-15.0 [facility] Comment on above: Performed By: #### L [id number] ####Architectural Examiner: KELLI CHILDS ([id number])[facility])[address] [place] [address] Hematocrit (Bld) [Volume fraction] 43.2 % Normal 35.0-47.0 [facility] Comment on above: Performed By: #### L [id number] ####Architectural Examiner: KELLI CHILDS ([id number])[facility])[address] [place] [address] Hemoglobin (Bld) [Mass/Vol] 14.1 g/dL Normal 11.7-16.0 [facility] Comment on above: Performed By: #### L [id number] ####Architectural Examiner: KELLI CHILDS ([id number])[facility])[address] [place] [address] IMMATURE GRANS % 0.3 % Normal 0.0-2.0 [facility] Comment on above: Performed By: #### L [id number] ####Architectural Examiner: KELLI CHILDS ([id number])[facility])[address] [place] [address] IMMATURE GRANS ABSOLUTE 0.0 10*3/uL Normal <0.1 [facility] Comment on above: Performed By: #### L [id number] ####Architectural Examiner: KELLI CHILDS ([id number])[facility])[address] [place] [address] Lymphocytes (Bld) [#/Vol] 1.4 10*3/uL Normal 1.0-4.3 [facility] Comment on above: Performed By: #### L [id number] ####Architectural Examiner: KELLI CHILDS ([id number])[address] Lymphocytes/100 WBC (Bld) 24.4 % Normal 15.0-45.0 [facility] Comment on above: Performed By: #### L [id number] ####Architectural Examiner: KELLI CHILDS ([id number])[facility])[address] [place] [address] MCH (RBC) [Entitic mass] 28.4 pg Normal 26.0-34.0 [facility] Comment on above: Performed By: #### L [id number] ####Architectural Examiner: KELLI CHILDS ([id number])[facility])[address] [place] [address] MCHC 32.6 % Normal 30.5-36.0 [facility] Comment on above: Performed By: #### L [id number] ####Architectural Examiner: KELLI CHILDS ([id number])[facility])[address] [place] [address] MCV (RBC) [Entitic vol] 87.1 fL Normal 77.0-99.0 [facility] Comment on above: Performed By: #### L [id number] ####Architectural Examiner: KELLI CHILDS ([id number])[facility])[address] [place] [address] Monocytes (Bld) [#/Vol] 0.5 10*3/uL Normal 0.0-0.9 [facility] Comment on above: Performed By: #### L [id number] ####Architectural Examiner: KELLI CHILDS ([id number])[facility] ([facility])[address] [place] [address] Monocytes/100 WBC (Bld) 7.9 % Normal 5.0-13.0 [facility] Comment on above: Performed By: #### L [id number] ####Architectural Examiner: KELLI CHILDS ([id number])[facility] ([facility])[address] [place] [address] NEUTROPHILS ABSOLUTE 3.8 10*3/uL Normal 1.8-7.5 [facility] Comment on above: Performed By: #### L [id number] ####Architectural Examiner: KELLI CHILDS ([id number])[facility] ([facility])[address] [place] [address] Neutrophils/100 WBC (Bld) 66.2 % Normal 38.0-82.0 [facility] Comment on above: Performed By: #### L [id number] ####Architectural Examiner: KELLI CHILDS ([id number])[facility] ([facility])[address] [place] [address] NRBC 0.0 /100 WBCs Normal 0.0-2.0 [facility] Comment on above: Performed By: #### L [id number] ####Architectural Examiner: KELLI CHILDS ([id number])[facility] ([facility])[address] [place] [address] Platelet mean volume (Bld) [Entitic vol] 10.3 fL Normal 9.0-12.7 [facility] Comment on above: Performed By: #### L [id number] ####Architectural Examiner: KELLI CHILDS ([id number])[facility] ([facility])[address] [place] [address] Platelets (Bld) [#/Vol] 190 10*3/uL Normal 140-440 [facility] Comment on above: Performed By: #### L [id number] ####Architectural Examiner: KELLI CHILDS ([id number])[facility])[address] [place] [address] RBC (Bld) [#/Vol] 4.96 10*6/uL Normal 3.80-5.20 [facility] Comment on above: Performed By: #### L [id number] ####Architectural Examiner: KELLI CHILDS ([id number])[facility] ([facility])[address] [place] [address] WBC (Bld) [#/Vol] 5.7 10*3/uL Normal 3.6-10.7 [facility] Comment on above: Performed By: #### L [id number] ####Architectural Examiner: KELLI CHILDS ([id number])[address] ABDOMEN PELVIS W CONTRAST on 08-21-2023 [...] Electronically Signed Date/Time: 08/21/2023 5:35 PM EDT [facility] CT Abdomen and Pelvis W cont rast Jayla 08-21-2023 1. Findings suspicious for cholelithiasis. 2. No other acute findings or significant interval change. Please see above for further details. Report Dictated on Electronically Signed By: Rodríguez Franklin MD Electronically Signed Date/Time: 08/21/2023 5:35 PM EDT [facility] EMERGENCY DEPARTMENT RADIOLOGY SYSTEM [facility] Name[facility] 1945 [id number] Exam Date/Time: 08/21/2023 16:58 Procedure: CT ABDOMEN [...] and degenerative change in the lumbar spine. [facility] EMERGENCY DEPARTMENT RADIOLOGY SYSTEM Rodríguez Franklin MD - 08/21/2023 [...] Electronically Signed Date/Time: 08/21/2023 5:35 PM EDT [facility] Radiology Study observation (narrative) [facility] alth CT Abdomen and Pelvis W cont rast IVOrdered By: Rodríguez Franklin on 08-21-2023 [facility] [employer] Work Phone: Consulton 08-21-2023 Consult Attestation signed [...] Sheyla Ramirez : 1945 ATTENDING PHYSICIAN: Arsalan Hardnig* ADMIT DATE: 08/21/2023 TODAY'S DATE: 08/21/2023 CHIEF [...] diverticulitis, (additional history below) who presents to [facility] ED with a chief complaint of [...] WBC 5.7 (more content not included)... Normal [facility] Consult Department of Surgery Surgical Service: [...] diverticulitis, (additional history below) who presents to [facility] ED with a chief complaint of [...] 08/22/2023 Performed by Val Chan MD at [facility] ENDOSCOPY SIGMOID COLECTOMY (HISTORICAL) 2010 Laparoscopic sigmoid [...] in sto (more content not included)... Normal [facility] ED Provider Noteon ED Provider Note Emergency Department Encounter [facility] Emergency Department Patient: Sheyla Ramirez : 1945 [...] 08/22/2023 Performed by Val Chan MD at [facility] ENDOSCOPY SIGMOID COLECTOMY (HISTORICAL) 2010 Laparoscopic sigmoid [...] Mental Status: (more content not included)... Normal [facility] ED Provider Note Emergency Department Encounter [facility] EMERGENCY DEPT Patient: Sheyla Ramirez : 1945 [...] dictating provider for clarification) Jayjay Fortune MD [facility] Jayjay Fortune MD 08/21/23 1838 [facility] ED Provider Note Emergency Department Encounter Location: [facility] EMERGENCY DEPT Patient: Sheyla Ramirez : 1945 [...] this time. I reached out to [facility] and spoke with Dr. Swenson [...] [employer] SANTI Condon CNP 08/21/232036 Normal [facility] HEMOGLOBIN A1Con 08-21-2023 Glucose [Mass/Vol] 194 mg/dL Normal [facility] Comment on above: Order Comment: If no t done within the last 3 mos Performed By: #### L [id number] #### Architectural Examiner: KELLI CHILDS ([id number]) [facility]) [address] [place] [address] HbA1c (Bld) [Mass fraction] 8.4 % High <5.7 [facility] Comment on above: Order Comment: If no t done within the last 3 mos Result Comment: Norm al less than 5.7% Prediabetes 5.7% to 6.4% Diabetes 6.5% or higher --HgbA1C levels may not be accurate in patients who have renal disease, received recent blood transfusions, are anemic, or who have dyshemoglobinemia. Performed By: #### L AB90 #### Architectural Examiner: KELLI CHILDS ([id number]) [facility]) [address] [place] [address] HEPATIC FUNCTION PANELon Albumin [Mass/Vol] 4.5 g/dL Normal 3.5-5.0 [facility] Comment on above: Performed By: #### L AB15, LAB20, LAB99 ####Architectural Examiner: KELLI CHILDS ([id number])[address] ALP [Catalytic activity/Vol] 83 U/L Normal 38-126 [facility] Comment on above: Performed By: #### L AB15, LAB20, LAB99 ####Architectural Examiner: KELLI CHILDS ([id number])[facility])[address] [place] [address] ALT [Catalytic activity/Vol] 26 U/L Normal 0-34 [facility] Comment on above: Performed By: #### L AB15, LAB20, LAB99 ####Architectural Examiner: KELLI CHILDS ([id number])[facility])[address] [place] [address] AST [Catalytic activity/Vol] 31 U/L Normal 15-46 [facility] Comment on above: Performed By: #### L AB15, LAB20, LAB99 ####Architectural Examiner: KELLI CHILDS ([id number])[facility] ([facility])[address] [place] [address] Bilirubin [Mass/Vol] 0.8 mg/dL Normal 0.2-1.3 [facility] Comment on above: Performed By: #### L AB15, LAB20, LAB99 ####Architectural Examiner: KELLI CHILDS ([id number])[facility] ([facility])[address] [place] [address] Bilirubin.indirect [Mass/Vol] 0.0 mg/dL Normal 0.0-0.3 [facility] Comment on above: Performed By: #### L AB15, LAB20, LAB99 ####Architectural Examiner: KELLI CHILDS ([id number])[facility] ([facility])[address] [place] [address] Protein [Mass/Vol] 7.7 g/dL Normal 6.3-8.2 [facility] Comment on above: Performed By: #### L AB15, LAB20, LAB99 ####Architectural Examiner: KELLI CHILDS ([id number])[facility])[address] [place] [address] Hepatic function 2000 panelo n 08-21-2023 Albumin [Mass/Vol] 4.5 g/dL 3.5 - 5.0 g/dL [facility] ALP [Catalytic activity/Vol] 83 U/L 38 - 126 U/L [facility] ALT [Catalytic activity/Vol] 26 U/L 0 - 34 U/L [facility] AST [Catalytic activity/Vol] 31 U/L 15 - 46 U/L [facility] Bilirubin [Mass/Vol] 0.8 mg/dL 0.2 - 1 .3 mg/dL [facility] Bilirubin.conjugated [Mass/Vol] 0.0 mg/dL 0.0 - 0.3 mg/dL [facility] Protein [Mass/Vol] 7.7 g/dL 6.3 - 8.2 g/dL [facility] LACTIC ACID WITH REFLEXon Lactate [Moles/Vol] 0.7 mmol/L Normal 0.7-2.0 [facility] Comment on above: Performed By: #### L [id number] ####Architectural Examiner: KELLI CHILDS ([id number])[facility] [place] [address] LIPASEon 08-21-2023 Lipase [Catalytic activity/Vol] 97 U/L Normal 23-300 [facility] Comment on above: Performed By: #### L AB15, LAB20, LAB99 ####Architectural Examiner: KELLI CHILDS ([id number])[facility] ([facility])[address] [place] [address] Laboratory - Chemistry and C hemistry - challengeon 08-21-2023 Glucose [Mass/Vol] 72 mg/dL 70 - 100 mg/dL [facility] Lipase [Catalytic activity/Vol] 97 U/L 23 - 300 U/L [facility] Lactate [Moles/Vol] 0.7 mmol/L 0.7 - 2. 0 mmol/L [facility] No Panel Informationon 08-20 Interpretation and review of laboratory results Normal [facility] Performed by: [facility], [address] [place] [address] CLIA ID: [id number] [facility] Interpretation and review of laboratory results Normal [facility] Interpretation and review of laboratory results Normal [facility] CBC W Auto Differential pane l (Bld)on 08-20-2023 Basophils (Bld) [#/Vol] 0.0 10*3/uL 0.0 - 0.2 10*3/uL [facility] Basophils/100 WBC (Bld) 0.3 % 0.0 - 2.0 % [facility] Eosinophils (Bld) [#/Vol] 0.1 10*3/uL 0.0 - 0.5 10*3/uL [facility] Eosinophils/100 WBC (Bld) 0.8 % 0.0 - 6.0 % [facility] Erythrocyte distribution width (RBC) [Ratio] 13.2 % 11.5 - 15.0 % [facility] Hematocrit (Bld) [Volume fraction] 39.6 % 35.0 - 47.0 % [facility] Hemoglobin (Bld) [Mass/Vol] 13.1 g/dL 11.7 - 16.0 g/dL [facility] Immature granulocytes (Bld) [#/Vol] 0.0 10*3/uL NINF - 0.1 10*3/uL [facility] Immature granulocytes/100 WBC (Bld) 0.3 % 0.0 - 2.0 % [facility] Interpretation and review of laboratory results Normal [facility] Lymphocytes (Bld) [#/Vol] 1.5 10*3/uL 1.0 - 4.3 10*3/uL [facility] Lymphocytes/100 WBC (Bld) 23.6 % 15.0 - 45.0 % [facility] MCH (RBC) [Entitic mass] 28.9 pg 26. 0 - 34.0 pg [facility] MCHC (RBC) [Mass/Vol] 33.1 % 30.5 - 36.0 % [facility] MCV (RBC) [Entitic vol] 87.2 fL 77.0 - 99.0 fL [facility] Monocytes (Bld) [#/Vol] 0.5 10*3/uL 0.0 - 0.9 10*3/uL [facility] Monocytes/100 WBC (Bld) 8.3 % 5.0 - 13.0 % [facility] Neutrophils (Bld) [#/Vol] 4.2 10*3/uL 1.8 - 7.5 10*3/uL [facility] Neutrophils/100 WBC (Bld) 66.7 % 38.0 - 82.0 % [facility] Nucleated RBC/100 WBC (Bld) [Ratio] 0.0 % [facility] Platelet mean volume (Bld) [Entitic vol] 10.6 fL 9.0 - 12.7 fL [facility] Platelets (Bld) [#/Vol] 191 10*3/uL 140 - 440 10*3/uL [facility] RBC (Bld) [#/Vol] 4.54 10*6/uL 3.80 - 5.2 0 10*6/uL [facility] WBC (Bld) [#/Vol] 6.4 10*3/uL 3.6 - 10.7 10*3/uL [facility] CBC WITH AUTO DIFFERENTIALon 08-20-2023 Basophils (Bld) [#/Vol] 0.0 10*3/uL Normal 0.0-0.2 [facility] Comment on above: Performed By: #### L [id number] ####Architectural Examiner: KELLI CHILDS ([id number])[facility])[address] [place] [address] Basophils/100 WBC (Bld) 0.3 % Normal 0.0-2.0 S [facility] Comment on above: Performed By: #### L [id number] ####Architectural Examiner: KELLI CHILDS ([id number])[facility])[address] [place] [address] Eosinophils (Bld) [#/Vol] 0.1 10*3/uL Normal 0.0-0.5 [facility] Comment on above: Performed By: #### L [id number] ####Architectural Examiner: KELLI CHILDS ([id number])[facility])[address] [place] [address] Eosinophils/100 WBC (Bld) 0.8 % Normal 0.0-6.0 [facility] Comment on above: Performed By: #### L [id number] ####Architectural Examiner: KELLI CHILDS ([id number])[facility])[address] [place] [address] Erythrocyte distribution width (RBC) [Ratio] 13.2 % Normal 11.5-15.0 [facility] Comment on above: Performed By: #### L [id number] ####Architectural Examiner: KELLI CHILDS ([id number])[facility])[address] [place] [address] Hematocrit (Bld) [Volume fraction] 39.6 % Normal 35.0-47.0 [facility] Comment on above: Performed By: #### L [id number] ####Architectural Examiner: KELLI CHILDS ([id number])[facility])[address] [place] [address] Hemoglobin (Bld) [Mass/Vol] 13.1 g/dL Normal 11.7-16.0 [facility] Comment on above: Performed By: #### L [id number] ####Architectural Examiner: KELLI CHILDS ([id number])[facility] ([facility])[address] [place] [address] IMMATURE GRANS % 0.3 % Normal 0.0-2.0 [facility] Comment on above: Performed By: #### L [id number] ####Architectural Examiner: KELLI CHILDS ([id number])[facility])[address] [place] [address] IMMATURE GRANS ABSOLUTE 0.0 10*3/uL Normal <0.1 [facility] Comment on above: Performed By: #### L [id number] ####Architectural Examiner: KELLI CHILDS ([id number])[facility])[address] [place] [address] Lymphocytes (Bld) [#/Vol] 1.5 10*3/uL Normal 1.0-4.3 [facility] Comment on above: Performed By: #### L [id number] ####Architectural Examiner: KELLI CHILDS ([id number])[facility])[address] [place] [address] Lymphocytes/100 WBC (Bld) 23.6 % Normal 15.0-45.0 [facility] Comment on above: Performed By: #### L [id number] ####Architectural Examiner: KELLI CHILDS ([id number])[facility])[address] [place] [address] MCH (RBC) [Entitic mass] 28.9 pg Normal 26.0-34.0 [facility] Comment on above: Performed By: #### L [id number] ####Architectural Examiner: KELLI CHILDS ([id number])[facility])[address] [place] [address] MCHC 33.1 % Normal 30.5-36.0 [facility] Comment on above: Performed By: #### L [id number] ####Architectural Examiner: KELLI CHILDS ([id number])[facility])[address] [place] [address] MCV (RBC) [Entitic vol] 87.2 fL Normal 77.0-99.0 [facility] Comment on above: Performed By: #### L [id number] ####Architectural Examiner: KELLI CHILDS ([id number])[facility] ([facility])[address] [place] [address] Monocytes (Bld) [#/Vol] 0.5 10*3/uL Normal 0.0-0.9 [facility] Comment on above: Performed By: #### L [id number] ####Architectural Examiner: KELLI CHILDS ([id number])[facility] ([facility])[address] [place] [address] Monocytes/100 WBC (Bld) 8.3 % Normal 5.0-13.0 [facility] Comment on above: Performed By: #### L [id number] ####Architectural Examiner: KELLI CHILDS ([id number])[facility] ([facility])[address] [place] [address] NEUTROPHILS ABSOLUTE 4.2 10*3/uL Normal 1.8-7.5 [facility] Comment on above: Performed By: #### L [id number] ####Architectural Examiner: KELLI CHILDS ([id number])[facility] ([facility])[address] [place] [address] Neutrophils/100 WBC (Bld) 66.7 % Normal 38.0-82.0 [facility] [facility] Comment on above: Performed By: #### L [id number] ####Architectural Examiner: KELLI CHILDS ([id number])[facility] ([facility])[address] [place] [address] NRBC 0.0 /100 WBCs Normal 0.0-2.0 [facility] Comment on above: Performed By: #### L [id number] ####Architectural Examiner: KELLI CHILDS ([id number])[facility] ([facility])[address] [place] [address] Platelet mean volume (Bld) [Entitic vol] 10.6 fL Normal 9.0-12.7 [facility] Comment on above: Performed By: #### L [id number] ####Architectural Examiner: KELLI CHILDS ([id number])[facility])[address] [place] [address] Platelets (Bld) [#/Vol] 191 10*3/uL Normal 140-440 [facility] Comment on above: Performed By: #### L [id number] ####Architectural Examiner: KELLI CHILDS ([id number])[facility])[address] [place] [address] RBC (Bld) [#/Vol] 4.54 10*6/uL Normal 3.80-5.20 [facility] Comment on above: Performed By: #### L [id number] ####Architectural Examiner: KELLI CHILDS ([id number])[facility])[address] [place] [address] WBC (Bld) [#/Vol] 6.4 10*3/uL Normal 3.6-10.7 [facility] Comment on above: Performed By: #### L [id number] ####Architectural Examiner: KELLI CHILDS ([id number])[address] COMPLETE URINALYSISon 2023 BILIRUBIN, TOTAL PRESENCE IN URINE Negative Normal Negative [facility] Comment on above: Performed By: #### L [id number] ####Architectural Examiner: KELLI CHILDS ([id number])[facility])[address] [place] [address] Clarity (U) Clear Normal Clear [facility] Comment on above: Performed By: #### L [id number] ####Architectural Examiner: KELLI CHILDS ([id number])[address] Color (U) Light Yellow Normal Lt. Yellow [facility] Comment on above: Performed By: #### L [id number] ####Architectural Examiner: KELLI CHILDS ([id number])[facility] ([facility])[address] [place] [address] GLUCOSE (MG/DL) IN URINE Normal Normal Normal (<70 ) [facility] Comment on above: Performed By: #### L [id number] ####Architectural Examiner: KELLI CHILDS ([id number])[facility] ([facility])[address] [place] [address] HEMOGLOBIN PRESENCE IN URINE Negative Normal Negative [facility] Comment on above: Performed By: #### L [id number] ####Architectural Examiner: KELLI CHILDS ([id number])[facility] ([facility])[address] [place] [address] Ketones Ql (U) 60 mg/dL Abnormal Negative [facility] Comment on above: Performed By: #### L [id number] ####Architectural Examiner: KELLI CHILDS ([id number])[facility] ([facility])[address] [place] [address] LEUKOCYTE ESTERASE PRESENCE IN URINE BY TEST STRIP Negative Normal Negative [facility] Comment on above: Performed By: #### L [id number] ####Architectural Examiner: KELLI CHILDS ([id number])[facility] ([facility])[address] [place] [address] NITRITE PRESENCE IN URINE Negative Normal Negative [facility] Comment on above: Performed By: #### L [id number] ####Architectural Examiner: KELLI CHILDS ([id number])[facility] ([facility])[address] [place] [address] pH (U) 5.0 [pH] Normal 5.0-8.0 [facility] Comment on above: Performed By: #### L [id number] ####Architectural Examiner: KELLI CHILDS ([id number])[facility] ([facility])[address] [place] [address] Protein (U) [Mass/Vol] Negative Normal Negative [facility] Comment on above: Performed By: #### L [id number] ####Architectural Examiner: KELLI CHILDS ([id number])[facility] ([facility])[address] [place] [address] [place] Specific gravity (U) [Rel density] 1.031 High 1.005-1.030 [facility] Comment on above: Performed By: #### L [id number] ####Architectural Examiner: KELLI CHILDS ([id number])[facility])[address] [place] [address] UROBILINOGEN (MG/DL) IN URINE Normal Normal Normal (0-1) [facility] Comment on above: Performed By: #### L [id number] ####Architectural Examiner: KELLI CHILDS ([id number])[facility] ([facility])[address] [place] [address] COMPREHENSIVE METABOLIC PANE Elder 08-20-2023 Albumin [Mass/Vol] 4.2 g/dL Normal 3.5-5.0 [facility] Comment on above: Performed By: #### L AB17, LAB99 ####Architectural Examiner: KELLI CHILDS ([id number])[facility] ([facility])[address] [place] [address] ALP [Catalytic activity/Vol] 76 U/L Normal 38-126 [facility] Comment on above: Performed By: #### L AB17, LAB99 ####Architectural Examiner: KELLI CHILDS ([id number])[facility] ([facility])[address] [place] [address] ALT [Catalytic activity/Vol] 23 U/L Normal 0-34 [facility] Comment on above: Performed By: #### L AB17, LAB99 ####Architectural Examiner: KELLI CHILDS ([id number])[facility])[address] [place] [address] Anion gap [Moles/Vol] 11 mmol/L Normal 3-13 [facility] Comment on above: Performed By: #### L AB17, LAB99 ####Architectural Examiner: KELLI CHILDS ([id number])[facility])[address] [place] [address] AST [Catalytic activity/Vol] 26 U/L Normal 15-46 [facility] Comment on above: Performed By: #### L AB17, LAB99 ####Architectural Examiner: KELLI CHILDS ([id number])[facility] ([facility])[address] [place] [address] Bilirubin [Mass/Vol] 0.6 mg/dL Normal 0.2-1.3 [facility] Comment on above: Performed By: #### L AB17, LAB99 ####Architectural Examiner: KELLI CHILDS ([id number])[facility])[address] [place] [address] Calcium [Mass/Vol] 9.6 mg/dL Normal 8.4-10.4 [facility] Comment on above: Performed By: #### L AB17, LAB99 ####Architectural Examiner: KELLI CHILDS ([id number])[facility] ([facility])[address] [place] [address] Chloride [Moles/Vol] 103 mmol/L Normal 98-107 [facility] Comment on above: Performed By: #### L AB17, LAB99 ####Architectural Examiner: KELLI CHILDS ([id number])[facility] ([facility])[address] [place] [address] [place] CO2 [Moles/Vol] 24 mmol/L Normal 22-30 [facility] Comment on above: Performed By: #### L AB17, LAB99 ####Architectural Examiner: KELLI CHILDS ([id number])[facility])[address] [place] [address] Creatinine [Mass/Vol] 0.84 mg/dL Normal 0.52-1.04 [facility] Comment on above: Performed By: #### L AB17, LAB99 ####Architectural Examiner: KELLI CHILDS ([id number])[facility])[address] [place] [address] [place] GLOMERULAR FILTRATION RATE ML/MIN/1.73 SQ M.PREDICTED 72.1 mL/min/1.73m*2 Normal >60.0 [facility] Comment on above: Result Comment: Calc ulation based on the Chronic Kidney Disease Epidemiology Collaboration (CKD-EPI) equation refit without adjustment for race Performed By: #### L AB17, LAB99 ####Architectural Examiner: KELLI CHILDS ([id number])[facility])[address] [place] [address] Glucose [Mass/Vol] 123 mg/dL High 70-100 [facility] Comment on above: Performed By: #### L AB17, LAB99 ####Architectural Examiner: KELLI CHILDS ([id number])[facility])[address] [place] [address] Potassium [Moles/Vol] 4.1 mmol/L Normal 3.5-5.1 [facility] Comment on above: Performed By: #### L AB17, LAB99 ####Architectural Examiner: KELLI CHILDS ([id number])[facility])[address] [place] [address] Protein [Mass/Vol] 7.1 g/dL Normal 6.3-8.2 [facility] Comment on above: Performed By: #### L AB17, LAB99 ####Architectural Examiner: KELLI CHILDS ([id number])[facility])[address] [place] [address] Sodium [Moles/Vol] 137 mmol/L Normal 135-145 [facility] Comment on above: Performed By: #### L AB17, LAB99 ####Architectural Examiner: KELLI CHILDS ([id number])[facility])[address] [place] [address] [place] Urea nitrogen [Mass/Vol] 24 mg/dL High 7-17 [facility] Comment on above: Performed By: #### L AB17, LAB99 ####Architectural Examiner: KELLI CHILDS ([id number])[facility])[address] [place] [address] CT ABDOMEN PELVIS W CONTRAST on 08-20-2023 [...] Electronically Signed Date/Time: 08/20/2023 9:00 AM EDT [facility] CT Abdomen and Pelvis W cont rast Jayla 08-20-2023 1. No evidence of acute infectious or inflammatory process in the abdomen or pelvis. 2. 2.7 x 3.2 cm subcapsular low-density hepatic lesion within segment VII, probably a cyst. Report Dictated on Electronically Signed By: Artis Stevens MD Electronically Signed Date/Time: 08/20/2023 9:00 AM EDT [facility] EMERGENCY DEPARTMENT RADIOLOGY SYSTEM Patient Name: SHEYLA RAMIREZ : 1945 [...] spondylosis, including levoscoliosis. No suspicious osseous lesion. [facility] EMERGENCY DEPARTMENT RADIOLOGY SYSTEM Artis Stevens MD - 08/20/2023 [...] Electronically Signed Date/Time: 08/20/2023 9:00 AM EDT [facility] Radiology Study observation (narrative) [facility] al[facility] CT Abdomen and Pelvis W cont rast IVOrdered By: Artis Stevens on 08-20-2023 [facility] Work Phone: Comprehensive metabolic 1998 panelon 08-20-2023 Albumin [Mass/Vol] 4.2 g/dL 3.5 - 5.0 g/dL [facility] ALP [Catalytic activity/Vol] 76 U/L 38 - 126 U/L [facility] ALT [Catalytic activity/Vol] 23 U/L 0 - 34 U/L [facility] Anion gap [Moles/Vol] 11 mmol/L 3 - 13 mmol/L [facility] AST [Catalytic activity/Vol] 26 U/L 15 - 46 U/L [facility] Bilirubin [Mass/Vol] 0.6 mg/dL 0.2 - 1 .3 mg/dL [facility] Calcium [Mass/Vol] 9.6 mg/dL 8.4 - 10. 4 mg/dL [facility] Chloride [Moles/Vol] 103 mmol/L 98 - 10 7 mmol/L [facility] CO2 [Moles/Vol] 24 mmol/L 22 - 30 mmol/L [facility] Creatinine [Mass/Vol] 0.84 mg/dL 0.52 - 1.04 mg/dL [facility] GFR/1.73 sq M.predicted MDRD (S/P/Bld) [Vol rate/Area] 72.1 mL/min/{1.73_m2} - PINF [facility] Comment on above: Calculation based on the Chronic Kidney Disease Epidemiology Collaboration (CKD-EPI) equation refit without adjustment for race Glucose [Mass/Vol] 123 mg/dL High 70 - 100 mg/dL [facility] Interpretation and review of laboratory results Abnormal [facility] Potassium [Moles/Vol] 4.1 mmol/L 3.5 - 5.1 mmol/L [facility] Protein [Mass/Vol] 7.1 g/dL 6.3 - 8.2 g/dL [facility] Sodium [Moles/Vol] 137 mmol/L 135 - 145 mmol/L [facility] Urea nitrogen [Mass/Vol] 24 mg/dL High 7 - 17 mg/d L [facility] Consulton 08-20-2023 Consult Department of Surgery Surgical [...] diverticulitis, (additional history below) who presents to [facility] ED with a chief complaint of [...] discharge. Conjunctiva/sclera (more content not included)... Normal [facility] ED Nursing Noteon 08-20-2023 ED Nursing [...] within reach. Kimberley Carson RN 08/20/23 0652 Normal [facility] ED Provider Noteon ED Provider Note EMERGENCY [...] having EGD done by Dr. Kruse on 08/03- 24. States that she is a retired [...] 08/20/23 0627 08/20/23 0627 08/20/23 0627 36.5 ?C (97.7 ?F) 79 16 (!) [...] right or (more content not included)... Normal [facility] ED Provider Note Emergency Department Encounter [facility] EMERGENCY DEPT Patient: Sheyla Ramirez : 1945 Date of Evaluation: 08/20/2023 ED Supervising Physician: Don Bell MD I personally evaluated Sheyla Ramirez [...] to contact the dictating provider for clarification.) Don Bell MD [employer] Don Bell MD 08/20/23 0924 Normal [facility] LIPASEon 08-20-2023 Lipase [Catalytic activity/Vol] 136 U/L Normal 23-300 [facility] Comment on above: Performed By: #### L AB17, LAB99 ####Architectural Examiner: KELLI CHILDS ([id number])[facility] ([facility])[address] Laboratory - Chemistry and C hemistry - challengeon 08-20-2023 Lipase [Catalytic activity/Vol] 136 U/L 23 - 300 U/L [facility] Lipase [Catalytic activity/V ol]on 08-20-2023 Interpretation and review of laboratory results Normal [facility] No Panel Informationon 08-19 [facility] Urinalysis complete panel (U )Ordered By: Dana Goff on 08-20-2023 Bilirubin Ql (U) Negative Negative mg/dL [facility] Clarity (U) Clear Clear [facility] Color (U) Light Yellow Lt. Yellow [facility] Glucose Ql (U) Normal Normal (<70) mg/dL [facility] Hemoglobin Ql (U) Negative Negative mg/dL [facility] Interpretation and review of laboratory results Abnormal [facility] Ketones (U) [Mass/Vol] 60 mg/dL Abnormal Negative [facility] Leukocyte esterase Test strip Ql (U) Negative Negative Alisson/uL [facility] Nitrite Ql (U) Negative Negative [facility] th pH (U) 5.0 [pH] 5.0 - 8.0 pH [facility] Protein (U) [Mass/Vol] Negative Negat jenniffer mg/dL [facility] Specific gravity (U) [Rel density] 1.031 High 1.005 - 1.030 [facility] Urobilinogen (U) [Mass/Vol] Normal Normal (0-1) mg/dL [facility] Laboratory - Chemistry and C hemistry - challengeon 08-04-2023 Glucose [Mass/Vol] 231 mg/dL High 70 - 100 mg/dL [facility] No Panel Informationon 08-03 Interpretation and review of laboratory results Abnormal [facility] Performed by: [facility], [address] [place] [address] CLIA ID: [id number] [facility] Radiology Study observation (narrative) [facility] RF Upper gastrointestinal tr act and Small bowel Single view W contrast Diony 07-24-2023 Small hiatus hernia without gastroesophageal reflux. Satisfactory emptying of both the marshmallow and bagel boluses within two stripping waves. Report Dictated on Electronically Signed By: Kit Patel MD Electronically Signed Date/Time: 07/24/2023 12:46 PM EDT [facility] Patient Name: SHEYLA RAMIREZ : 1945 Exam Date/Time: 07/24/2023 10:07 Procedure: FL UPPER [...] and bagel boluses within two stripping waves. [facility] Kit Patel MD - 07/24/2023 Patient Name: SHEYLA RAMIREZ : 1945 Exam Date/Time: 07/24/2023 10:07 Procedure: FL UPPER [...] Electronically Signed Date/Time: 07/24/2023 12:46 PM EDT [facility] Radiology Study observation (narrative) [facility] RF Upper gastrointestinal tr act and Small bowel Single view W contrast POOrdered By: Kit Patel on 07-24-2023 [place] [address]on 07-08-2023 36 Spoke with pt today about new surgery date of 09/08 @ 7:00. She verbalized understanding and also stated she has an appt w/ her gravure printing machinist on 08/27. (Cardiac clearance still pending til then) [facility] 36on 07-02-2023 36 I faxed the cardiac clearance request today. I will keep it in a folder here of pending requests. I can update the [employer] message and route off once received. Unless there is a different protocol for keeping track [facility] 36 Please make sure to get cardiac clearance prior to surgery [facility] 36on 07-01-2023 36 Called pt and LVM explaining we already chose an EGD appt, August 03, arrival time of 10:00. Please let pt know that if she calls back. [facility] 36on 06-29-2023 36 Patient LVM that she would like to schedule EGD she found a ride. Please call patient [facility] Office Visiton 06-26-2023 Follow-up visit [id number] Sheyla Ramirez 1945 F Date Provider Department Center 06/26/2023 [id number] [address] 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 Normal [facility] Progress Note [facility] - Surgery [facility] Physicians Surgery Patient Name: Sheyla Ramirez [...] for what is listed in HPI. Dr Bailey OV note 04/15/23 reviewed EGD w/dil Dr Bailey 08/30/18 reviewed PMHx: Past Medical History: Diagnosis [...] on file DIAGNOSTIC EVALUATION: EGD w/dil Dr Bailey 08/30/18 Pathology 08/30/18 Physical Examination: BP 120/79 [...] will need medical risk stratification from her gravure printing machinist. We will proceed with surgical intervention. I [...] with surgical interventio (more content not included)... [facility] Progress Note Spoke with pt today about new surgery date of 09/08 @ 7:00. She verbalized understanding and also stated she has an appt w/ her gravure printing machinist on 08/27. (Cardiac clearance still pending til then) [facility] Progress Note Called pt and notified of upper GI and EGD. Mailed paperwork [facility] Progress Note Noted. thanks [facility] Progress Note Received cardiac clearance approval. -pre-op appt this Thursday [facility] Progress Note Cardiac paperwork received and signed off on. PAT canceled per Sha (pt aware) [facility] Progress Note Cardiac stress test and ECHO results received from [place] [facility]. Placed in review folder [facility] Progress Note Pt called and surgery date chose, case entered, post-ops made, and cardiac clearance faxed to gravure printing machinist [facility] 36on 06-03-2023 36 GABRIELLA has been faxed to nate cook [facility] 36 Nate [place] called to verify the birthday of patient. She stated she was unable to read the birthday on the GABRIELLA. She looked while I was on the phone. She did not have any records for the patient. She stated maybe Nate in [place] would and to try to send it there. [facility] 36 Egg Separator appt scheduled for 06/25, pt informed via phone/mail. Sent GABRIELLA to nate to get UGI images. [facility] No Panel InformationOrdered By: Sylvester Bhakta on 02-12-2023 Thyroid Stimulating Hormone (TSH) 1.03 uIU/mL 0.358-3.74 [facility] Serum or plasma thyroperoxid ase antibody assay (units/volume)Ordered By: Sylvester Bhakta on 02-12-2023 TPO Ab Qn [IU]/mL 0-34 [facility] Comment on above: Performed at: [address] [id number] Director: Chandana Turner PhD, Phone: [phone] Absolute lymphocyte countOrd ered By: Lena Thorne on 12-30-2022 Lymphocytes Auto (Unsp spec) [#/Vol] 2.54 10*3/uL 0.83-4.51 [facility] Basophil percentageOrdered B y: Lena Thorne on 12-30-2022 Basophils/100 WBC (Bld) 0.5 % 0-1 [facility] Bilirubin [Mass/Vol] 0.30 mg/dL 0.20-1.00 [facility] Comment on above: For patients on eltr ombopag therapy, use of Dim[facility] [place] TBIL is not recommended. Chloride [Moles/Vol] 108 mmol/L 98-107 [facility] Cholesterol [Mass/Vol] 238 mg/dL <200 [facility] Comment on above: <200 mg/dL Desirable 200-240 mg/dL Borderline >240 mg/dL High Risk Eosinophils/100 WBC (Bld) 1.8 % 0-5 [facility] Glucose [Mass/Vol] 137 mg/dL 74-106 [facility] Comment on above: Fasting Glucose resu lt greater than or equal to 126 mg/dL suggests DIABETES MELLITUS per A.D.A. criteria. Neutrophils (Bld) [#/Vol] 2.5 10*3/uL 2.0-7.7 [facility] Neutrophils/100 WBC (Bld) 44.7 % 47-70 [facility] Potassium [Moles/Vol] 3.9 mmol/L 3.5-5.1 [facility] Protein [Mass/Vol] 7.1 g/dL 6.4-8.2 [facility] Sodium [Moles/Vol] 139 mmol/L 136-145 [facility] Triglyceride [Mass/Vol] 115 mg/dL <199 [facility] Comment on above: The drugs N-Acetylcy steine and Metamizole may falsely depress this assay.Serum Triglycerides Reference Interval Normal <150 mg/dL Borderline high 150 - 199 mg/dL High 200 - 499 mg/dL Very High > or = 500 mg/dL WBC (Bld) [#/Vol] 5.6 10*3/uL 4.4-11.0 [facility] Blood erythrocytes count (nu mber/volume)Ordered By: Lena Thorne on 12-30-2022 RBC (Bld) [#/Vol] 4.68 10*6/uL 4.2-5.4 [facility] Blood hemoglobin measurement (mass/volume)Ordered By: Lena Thorne on 12-30-2022 Hemoglobin (Bld) [Mass/Vol] 13.5 g/dL 12.0-15.0 [facility] Blood lymphocytes/100 leukoc ytesOrdered By: Lena Thorne on 12-30-2022 Lymphocytes/100 WBC (Bld) 45.0 % 19-41 [facility] Blood monocytes/100 leukocyt esOrdered By: [facility] Th[facility] on 12-30-2022 Monocytes/100 WBC (Bld) 7.8 % 0-10 [facility] Blood platelet mean volumeOr dered By: Lena Thorne on 12-30-2022 Platelet mean volume (Bld) [Entitic vol] 10.8 fL 6.2-12.0 [facility] Determination of erythrocyte mean corpuscular volume (MCV)Ordered By: Lena Thorne on 12-30-2022 MCV (RBC) [Entitic vol] 88.7 fL 81-99 [facility] Hematocrit Auto (Bld) [Volum e fraction]Ordered By: Lena Thorne on 12-30-2022 Hematocrit (Bld) [Volume fraction] 41.5 % 37-47 [facility] Laboratory - Chemistry and C hemistry - challengeOrdered By: Lena Thorne on 12-30-2022 ALP [Catalytic activity/Vol] 71 U/L 45-117 [facility] ALT [Catalytic activity/Vol] 30 U/L 13-56 [facility] CO2 [Moles/Vol] 23.0 mmol/L 21.0-32.0 [facility] Globulin (S) [Mass/Vol] 3.6 g/dL 2.2-4.2 [facility] Urea nitrogen/Creatinine [Mass ratio] 20.8 mg/mg 10-20 [facility] Laboratory - Hematology and Cell countsOrdered By: Lena Thorne on 12-30-2022 Erythrocyte distribution width (RBC) [Entitic vol] 43.5 fL 35.1-43.9 [facility] Erythrocyte distribution width (RBC) [Ratio] 13.4 % 11.6-14.6 [facility] Immature granulocytes/100 WBC (Bld) 0.200 % 0.0-0.9 [facility] Comment on above: IG% - Immature Granu locytes (promyelocytes, myelocytes and metamyelocytes) > 1% indicates that a LEFT SHIFT is Present. MCH (RBC) [Entitic mass] 28.8 pg 27.0-32.0 [facility] Nucleated RBC/100 WBC (Bld) [Ratio] 0 % 0-5 [facility] MCHC Auto (RBC) [Mass/Vol]Or dered By: Lena Thorne on 12-30-2022 MCHC (RBC) [Mass/Vol] 32.5 g/dL 32-36 [facility] No Panel InformationOrdered By: Lena Thorne on 12-30-2022 Estimated GFR (MDRD) Amer 82 mL/min >60 [facility] Comment on above: GFR Calc Estimated GFR (MDRD) Non-Af Amer 68 mL/min >60 [facility] Comment on above: Non- GFR Calc No Panel InformationOrdered By: Sylvester Bhakta on 12-30-2022 Thyroid Stimulating Hormone (TSH) 6.60 uIU/mL 0.358-3.74 [facility] Platelets bldOrdered By: Oscar Thorne on 12-30-2022 Platelets (Bld) [#/Vol] 213 10*3/uL 150-450 [facility] Serum or plasma albumin brice urement (mass/volume)Ordered By: Lena Thorne on 12-30-2022 Albumin [Mass/Vol] 3.5 g/dL 3.2-5.0 [facility] Serum or plasma albumin/glob ulin mass ratioOrdered By: Lena Thorne on 12-30-2022 Albumin/Globulin [Mass ratio] 1.0 {ratio} 0.9-2.4 [facility] Serum or plasma calcium brice urement (mass/volume)Ordered By: Lena Thorne on 12-30-2022 Calcium [Mass/Vol] 9.0 mg/dL 8.5-10.1 [facility] Serum or plasma cholesterol in HDL measurement (mass/volume)Ordered By: Lena Thorne on 12-30-2022 Cholesterol in HDL [Mass/Vol] 78 mg/dL >40 [facility] Comment on above: The drugs N-Acetylcy steine and Metamizole may falsely depress this assay. Reference Range HDL <40 mg/dL Low HDL Cholesterol HDL >or= 60 mg/dL High HDL Cholesterol Serum or plasma cholesterol in VLDL measurement (mass/volume)Ordered By: Lena Thorne on 12-30-2022 Cholesterol in VLDL [Mass/Vol] 23 mg/dL 5-40 [facility] Serum or plasma creatinine m easurement (mass/volume)Ordered By: Lena Thorne 12-30-2022 Creatinine [Mass/Vol] 0.86 mg/dL 0.55-1.02 [facility] Comment on above: The validity of the calculated GFR & GFRAA in patients over 70 years has not been determined. Clinical correlation is essential. Serum or plasma low density lipoprotein (LDL) cholesterol measurement (mass/volume)Ordered By: Lena Thorne on 12-30-2022 Cholesterol in LDL [Mass/Vol] 137 mg/dL 0-130 [facility] Serum or plasma urea nitroge n measurement (mass/volume)Ordered By: Lena Thorne on 12-30-2022 Urea nitrogen [Mass/Vol] 18 mg/dL 7-18 [facility] Thin prep Papanicolaou smear with manual screeningOrdered By: Lena Thorne 12-30-2022 Thin prep Papanicolaou smear with manual screening 15 U/L 15-37 [facility] Thin prep Papanicolaou smear with manual screening 8 5-15 [facility] Whole blood hemoglobin A1c/t otal hemoglobin ratio (mass fraction)Ordered By: Sylvester Bhakta on 12-30-2022 HbA1c (Bld) [Mass fraction] 6.9 % 3.8-5.6 [facility] Comment on above: Normal < 5.7 % Predi abetic 5.7 - 6.4 % Diabetic >or= 6.5 % Please note range changes. Laboratory - Hematology and Cell countson 07-07-2022 HbA1c (Bld) [Mass fraction] 8.2 % [facility] Laboratory - Hematology and Cell countson 09-12-2021 HbA1c (Bld) [Mass fraction] 6.6 % [facility] Work Phone: Laboratory - Hematology and Cell countson 06-13-2021 HbA1c (Bld) [Mass fraction] 8.3 % [facility] Work Phone: Basophil percentageon 2021 Basophil percentage 0-5 SEEN /hpf 0-5 [facility] Work Phone: Chloride [Moles/Vol] 106 mmol/L 98-107 [facility] Work Phone: Glucose [Mass/Vol] 171 mg/dL 74-106 [facility] Work Phone: Comment on above: Fasting Glucose resu lt greater than or equal to 126 mg/dL suggests DIABETES MELLITUS per A.D.A. criteria. Potassium [Moles/Vol] 3.9 mmol/L 3.5-5.1 [facility] Work Phone: Sodium [Moles/Vol] 138 mmol/L 136-145 [facility] Work Phone: Bilirubin Test strip Ql (U)o n 05-27-2021 Bilirubin Ql (U) Negative Negative [facility] Work Phone: Ketones Test strip Ql (U)on 05-27-2021 Ketones Ql (U) 50 mg/dl Negative [facility] Work Phone: Laboratory - Chemistry and C hemistry - challengeon 05-27-2021 CO2 [Moles/Vol] 23.0 mmol/L 21.0-32.0 [facility] Work Phone: Urea nitrogen/Creatinine [Mass ratio] 29.5 mg/mg 10-20 [facility] Work Phone: Mucus LM Ql (Urine sed)on Mucus Ql (Urine sed) RARE /hpf [facility] Work Phone: Nitrite Test strip Ql (U)on 05-27-2021 Nitrite Ql (U) Negative Negative [facility] Work Phone: No Panel Informationon 05-27 Estimated GFR (MDRD) Amer 88 mL/min >60 [facility] Work Phone: Comment on above: GFR Calc Estimated GFR (MDRD) Non-Af Amer 73 mL/min >60 [facility] Work Phone: Comment on above: Non- GFR Calc Protein Test strip Ql (U)on 05-27-2021 Protein Ql (U) Negative Negative [facility] Work Phone: Serum or plasma calcium brice urement (mass/volume)on 05-27-2021 Calcium [Mass/Vol] 9.3 mg/dL 8.5-10.1 oste [facility] Work Phone: Serum or plasma creatinine m easurement (mass/volume)on 05-27-2021 Creatinine [Mass/Vol] 0.81 mg/dL 0.55-1.[address] [facility] Work Phone: Comment on above: The validity of the calculated GFR & GFRAA in patients over 70 years has not been determined. Clinical correlation is essential. Serum or plasma urea nitroge n measurement (mass/volume)on 05-27-2021 Urea nitrogen [Mass/Vol] 24 mg/dL 7-18 [facility] Work Phone: Squamous epithelial cells de tection in urine sediment by light microscopyon 04-11-2022 Epithelial cells.squamous LM Ql (Urine sed) 0-5 SEEN /hpf 5-10 [facility] Work Phone: Thin prep Papanicolaou smear with manual screeningon 05-27-2021 Thin prep Papanicolaou smear with manual screening 9 5-15 [facility] Work Phone: Urine blood detectionon 05-17 RBC Ql (U) Negative Negative [facility] Work Phone: RBC Ql (U) 0 SEEN /hpf 0-5 [facility] Work Phone: Urine clarityon 05-27-2021 Clarity (U) Clear Clear [facility] Work Phone: Urine color determinationon 05-27-2021 Color (U) Yellow Yellow [facility] Work Phone: Urine glucose detectionon Glucose Ql (U) Normal mg/dl Normal [facility] Work Phone: Urine leukocyte esterase det ection by dipstickon 05-27-2021 Leukocyte esterase Test strip Ql (U) Negative Negative [facility] Work Phone: Urine pHon 05-27-2021 pH (U) 5.0 [pH] 5.0 - 8.0 [facility] Work Phone: Urine sediment bacteria coun t by microscopy (number/high power field)on 05-27-2021 Bacteria LM.HPF (Urine sed) [#/Area] RARE /hpf None Seen [facility] Work Phone: Urine specific gravity measu rementon 05-27-2021 Specific gravity (U) [Rel density] 1.020 1.002-1.030 [facility] Work Phone: Urobilinogen Auto test strip Ql (U)on 05-27-2021 Urobilinogen Ql (U) Normal mg/dl Normal [facility] Work Phone: Basophil percentageon 2021 Amylase [Catalytic activity/Vol] 49 U/L 25-115 [facility] Work Phone: Bilirubin [Mass/Vol] 0.50 mg/dL 0.20-1.00 [facility] Work Phone: Comment on above: For patients on eltr ombopag therapy, use of Dim[facility] [place] TBIL is not recommended. Chloride [Moles/Vol] 104 mmol/L 98-107 [facility] Work Phone: Glucose [Mass/Vol] 258 mg/dL 74-106 [facility] Work Phone: Comment on above: Glucose result great er than or equal to 200 mg/dLsuggests DIABETES MELLITUS per A.D.A. criteria. Potassium [Moles/Vol] 4.3 mmol/L 3.5-5.1 [facility] Work Phone: Protein [Mass/Vol] 7.5 g/dL 6.4-8.2 [facility] Work Phone: Sodium [Moles/Vol] 136 mmol/L 136-145 [facility] Work Phone: Laboratory - Chemistry and C hemistry - challengeon 05-22-2021 ALP [Catalytic activity/Vol] 105 U/L 45-117 [facility] Work Phone: ALT [Catalytic activity/Vol] 39 U/L 13-56 [facility] Work Phone: CO2 [Moles/Vol] 29.0 mmol/L 21.0-32.0 [facility] Work Phone: Globulin (S) [Mass/Vol] 3.8 g/dL 2.2-4.2 [facility] Work Phone: Lipase [Catalytic activity/Vol] 148 U/L 73-393 [facility] Work Phone: Urea nitrogen/Creatinine [Mass ratio] 11.2 mg/mg 10-20 [facility] Work Phone: Laboratory - Hematology and Cell countson 05-22-2021 HbA1c (Bld) [Mass fraction] 8.9 % 4.2-6.3 [facility] Work Phone: No Panel Informationon 05-22 Estimated GFR (MDRD) Amer 34 mL/min >60 [facility] Work Phone: Comment on above: GFR Calc Estimated GFR (MDRD) Non-Af Amer 28 mL/min >60 [facility] Work Phone: Comment on above: Non- GFR Calc Serum or plasma albumin brice urement (mass/volume)on 05-22-2021 Albumin [Mass/Vol] 3.7 g/dL 3.2-5.0 [facility] Work Phone: Serum or plasma albumin/glob ulin mass ratioon 05-22-2021 Albumin/Globulin [Mass ratio] 1.0 {ratio} 0.9-2.4 [facility] Work Phone: Serum or plasma calcium brice urement (mass/volume)on 05-22-2021 Calcium [Mass/Vol] 9.3 mg/dL 8.5-10.1 [facility] Work Phone: Serum or plasma creatinine m easurement (mass/volume)on 05-22-2021 Creatinine [Mass/Vol] 1.87 mg/dL 0.55-1.02 [facility] Work Phone: Comment on above: The validity of the calculated GFR & GFRAA in patients over 70 years has not been determined. Clinical correlation is essential. Serum or plasma urea nitroge n measurement (mass/volume)on 05-22-2021 Urea nitrogen [Mass/Vol] 21 mg/dL 7-18 [facility] Work Phone: Thin prep Papanicolaou smear with manual screeningon 05-22-2021 Thin prep Papanicolaou smear with manual screening 16 U/L 15-37 [facility] Work Phone: Thin prep Papanicolaou smear with manual screening 3 5-15 [facility] Work Phone: Laboratory - Hematology and Cell countson 03-13-2021 HbA1c (Bld) [Mass fraction] 9.7 % [facility] Work Phone: MA MAMMOGRAM SCREENING BILAT ERAL W/TOMOon 11-03-2019 MA MAMMOGRAM SCREENING BILATERAL W/SIM[place] ORIGINAL FROM: [facility] [address], [place] [address] PROCEDURE FOR: SHEYLA HAAS [address] [place] [id number] Home: PID#: [id number] Exam#: [id number] : 1945 Age: 73 TO: LENA THORNE MD [address] [place] [id number] #[id number] BILATERAL DIGITAL SCREENING MAMMOGRAM 3D/2D WITH CAD WITH MEDIOLATERAL OBLIQUE CRANIOCAUDAL: 11/03/2019 Comparison is made to exams dated: 04/05/2018 mammogram, 04/02/2017 mammogram - [facility], and 02/15/2016 mammogram - [facility]. 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 Lena Thorne MD Work Phone: [facility] 11-21-2024 14:24-0400 Body mass index (BMI) [Ratio] 24.6 kg/m2 Dr. Lena Thorne MD Work Phone: [facility] 11-21-2024 14:24-0400 Body weight 71.[address] Lena Thorne MD Work Phone: [facility] 11-21-2024 14:24-0400 Diastolic blood pressure 77 mm[Hg] Dr. Lena Thorne MD Work Phone: [facility] 11-21-2024 14:24-0400 Heart rate 70 /min Dr. Lena Thorne MD Work Phone: [facility] 11-21-2024 14:24-0400 SaO2% (BldA) [Mass fraction] 96 % Dr. Lena Thorne MD Work Phone: [facility] 11-21-2024 14:24-0400 Systolic blood pressure 127 mm[Hg] Dr. Lena Thorne MD Work Phone: [facility] 10-24-2024 12:59-0400 Body height 170.[address] Lena Thorne MD Work Phone: [facility] 10-24-2024 12:59-0400 Body mass index (BMI) [Ratio] 24.7 kg/m2 Dr. Lena Thorne MD Work Phone: [facility] 10-24-2024 12:59-0400 Body temperature 96.8 [degF] Dr. Lena Thorne MD Work Phone: [facility] 10-24-2024 12:59-0400 Body weight 71.[address] Lena Thorne MD Work Phone: [facility] 10-24-2024 12:59-0400 Diastolic blood pressure 60 mm[Hg] Dr. Lena Thorne MD Work Phone: [facility] 10-24-2024 12:59-0400 Heart rate 85 /min Dr. Lena Thorne MD Work Phone: [facility] 10-24-2024 12:59-0400 Respiratory rate 18 /min Dr. Lena Thorne MD Work Phone: [facility] 10-24-2024 12:59-0400 SaO2% (BldA) [Mass fraction] 97 % Dr. Lena Thorne MD Work Phone: [facility] 10-24-2024 12:59-0400 Systolic blood pressure 128 mm[Hg] Dr. Lena Thorne MD Work Phone: [facility] 08-04-2024 14:20-0400 Body height 170.[address] Lena Thorne MD Work Phone: [facility] 08-04-2024 14:20-0400 Body mass index (BMI) [Ratio] 24.3 kg/m2 Dr. Lena Thorne MD Work Phone: [facility] 08-04-2024 14:20-0400 Body weight 70.[address] Lena Thorne MD Work Phone: [facility] 08-04-2024 14:20-0400 Diastolic blood pressure 82 mm[Hg] Dr. Lena Thorne MD Work Phone: [facility] 08-04-2024 14:20-0400 Heart rate 71 /min Dr. Lena Thorne MD Work Phone: [facility] 08-04-2024 14:20-0400 SaO2% (BldA) [Mass fraction] 98 % Dr. Lena Thorne MD Work Phone: [facility] 08-04-2024 14:20-0400 Systolic blood pressure 135 mm[Hg] Dr. Lena Thorne MD Work Phone: [facility] 07-19-2024 07:39-0400 Body height 170.[address] Lena Thorne MD Work Phone: [facility] 07-19-2024 07:39-0400 Body mass index (BMI) [Ratio] 24.1 kg/m2 Dr. Lena Thorne MD Work Phone: [facility] 07-19-2024 07:39-0400 Body weight 69.[address] Lena Thorne MD Work Phone: [facility] 07-19-2024 07:39-0400 Diastolic blood pressure 69 mm[Hg] Dr. Lena Thorne MD Work Phone: [facility] 07-19-2024 07:39-0400 Heart rate 80 /min Dr. Lena Thorne MD Work Phone: [facility] 07-19-2024 07:39-0400 Respiratory rate 18 /min Dr. Lena Thorne MD Work Phone: [facility] 07-19-2024 07:39-0400 Systolic blood pressure 107 mm[Hg] Dr. Lena Thorne MD Work Phone: [facility] 06-15-2024 14:09-0400 Body mass index (BMI) [Ratio] 24.1 kg/m2 Dr. Lena Thorne MD Work Phone: [facility] 06-15-2024 14:09-0400 Body temperature 96.3 [degF] Dr. Lena Thorne MD Work Phone: [facility] 06-15-2024 14:09-0400 Body weight 70.[address] Lena Thorne MD Work Phone: [facility] 06-15-2024 14:09-0400 Diastolic blood pressure 54 mm[Hg] Dr. Lena Thorne MD Work Phone: [facility] 06-15-2024 14:09-0400 Heart rate 77 /min Dr. Lena Thorne MD Work Phone: [facility] 06-15-2024 14:09-0400 Respiratory rate 12 /min Dr. Lena Thorne MD Work Phone: [facility] 06-15-2024 14:09-0400 SaO2% (BldA) [Mass fraction] 95 % Dr. Lena Thorne MD Work Phone: [facility] 06-15-2024 14:09-0400 Systolic blood pressure 98 mm[Hg] Dr. Lena Thorne MD Work Phone: [facility] 04-05-2024 14:22-0500 Body mass index (BMI) [Ratio] 23.6 kg/m2 Dr. Lena Thorne MD Work Phone: [facility] 04-05-2024 14:22-0500 Body weight 68.[address] Lena Thorne MD Work Phone: [facility] 04-05-2024 14:22-0500 Diastolic blood pressure 64 mm[Hg] Dr. Lena Thorne MD Work Phone: [facility] 04-05-2024 14:22-0500 Heart rate 74 /min Dr. Lena Thorne MD Work Phone: [facility] 04-05-2024 14:22-0500 SaO2% (BldA) [Mass fraction] 98 % Dr. Lena Thorne MD Work Phone: [facility] 04-05-2024 14:22-0500 Systolic blood pressure 102 mm[Hg] Dr. Lena Thorne MD Work Phone: [facility] 10-30-2023 11:32-0400 Body height 170.2 cm Julian Kruse MD Work Phone: [facility] 10-30-2023 11:32-0400 Body mass index (BMI) [Ratio] 22.71 kg/m2 Julian Kruse MD Work Phone: [facility] 10-30-2023 11:32-0400 Body temperature 97 [degF] Julian Kruse MD Work Phone: [facility] 10-30-2023 11:32-0400 Body weight 65.77 kg Julian Kruse MD Work Phone: [facility] 10-30-2023 11:32-0400 Diastolic blood pressure 60 mm[Hg] Julian Kruse MD Work Phone: [facility] 10-30-2023 11:32-0400 Heart rate 77 /min Julian Kruse MD Work Phone: [facility] 10-30-2023 11:32-0400 Systolic blood pressure 122 mm[Hg] Julian Kruse MD Work Phone: [facility] 09-25-2023 10:59-0400 Body height 170.2 cm Julian Kruse MD Work Phone: [facility] 09-25-2023 10:59-0400 Body mass index (BMI) [Ratio] 23.18 kg/m2 Julian Kruse MD Work Phone: [facility] 09-25-2023 10:59-0400 Body temperature 97.2 [degF] Julian Kruse MD Work Phone: [facility] 09-25-2023 10:59-0400 Body weight 67.13 kg Julian Kruse MD Work Phone: [facility] 09-25-2023 10:59-0400 Diastolic blood pressure 66 mm[Hg] Julian Kruse MD Work Phone: [facility] 09-25-2023 10:59-0400 Heart rate 80 /min Julian Kruse MD Work Phone: [facility] 09-25-2023 10:59-0400 Systolic blood pressure 132 mm[Hg] Julian Kruse MD Work Phone: [facility] 09-10-2023 13:03-0400 Body temperature 97.9 [degF] Julian Kruse MD Work Phone: [facility] 09-10-2023 13:03-0400 Diastolic blood pressure 66 mm[Hg] Julian Kruse MD Work Phone: [facility] 09-10-2023 13:03-0400 Heart rate 68 /min Julian Kruse MD Work Phone: [facility] 09-10-2023 13:03-0400 Respiratory rate 20 /min Julian Kruse MD Work Phone: [facility] 09-10-2023 13:03-0400 SaO2% (BldA) [Mass fraction] 99 % Julian Kruse MD Work Phone: [facility] 09-10-2023 13:03-0400 Systolic blood pressure 121 mm[Hg] Julian Kruse MD Work Phone: [facility] 09-09-2023 06:39-0400 Body mass index (BMI) [Ratio] 24.14 kg/m2 Julian Kruse MD Work Phone: [facility] 09-09-2023 06:39-0400 Body weight 69.9 kg Julian Kruse MD Work Phone: [facility] 08-28-2023 10:01-0400 Body mass index (BMI) [Ratio] 24.12 kg/m2 Julian Kruse MD Work Phone: [facility] 08-28-2023 10:01-0400 Body temperature 97.5 [degF] Julian Kruse MD Work Phone: [facility] 08-28-2023 10:01-0400 Body weight 69.85 kg Julian Kruse MD Work Phone: [facility] 08-28-2023 10:01-0400 Diastolic blood pressure 60 mm[Hg] Julian Kruse MD Work Phone: [facility] 08-28-2023 10:01-0400 Heart rate 98 /min Julian Kruse MD Work Phone: [facility] 08-28-2023 10:01-0400 Systolic blood pressure 112 mm[Hg] Julian Kruse MD Work Phone: [facility] 08-25-2023 09:00-0400 Body temperature 97.39 [degF] Jayjay Fortune MD Work Phone: [facility] 08-25-2023 09:00-0400 Diastolic blood pressure 53 mm[Hg] Jayjay Fortune MD Work Phone: [facility] 08-25-2023 09:00-0400 Heart rate 74 /min Jayjay Fortune MD Work Phone: [facility] 08-25-2023 09:00-0400 Respiratory rate 18 /min Jayjay Fortune MD Work Phone: [facility] 08-25-2023 09:00-0400 SaO2% (BldA) [Mass fraction] 98 % Jayjay Fortune MD Work Phone: [facility] 08-25-2023 09:00-0400 Systolic blood pressure 95 mm[Hg] Jayjay Fortune MD Work Phone: [facility] 08-21-2023 13:10-0400 Body height 170.2 cm Jayjay Fortune MD Work Phone: [facility] 08-21-2023 13:10-0400 Body mass index (BMI) [Ratio] 23.49 kg/m2 Jayjay Fortune MD Work Phone: [facility] 08-21-2023 13:10-0400 Body weight 68.04 kg Jayjay Fortune MD Work Phone: [facility] 08-20-2023 12:58-0400 Diastolic blood pressure 85 mm[Hg] Don Bell MD Work Phone: [facility] 08-20-2023 12:58-0400 Heart rate 77 /min Don Bell MD Work Phone: [facility] 08-20-2023 12:58-0400 Respiratory rate 16 /min Don Bell MD Work Phone: [facility] 08-20-2023 12:58-0400 SaO2% (BldA) [Mass fraction] 100 % Don Bell MD Work Phone: [facility] 08-20-2023 12:58-0400 Systolic blood pressure 129 mm[Hg] Don Bell MD Work Phone: [facility] 08-20-2023 06:30-0400 Body height 170.2 cm Don Bell MD Work Phone: [facility] 08-20-2023 06:30-0400 Body mass index (BMI) [Ratio] 23.49 kg/m2 Don Bell MD Work Phone: [facility] 08-20-2023 06:30-0400 Body weight 68.04 kg Don Bell MD Work Phone: [facility] 08-20-2023 06:27-0400 Body temperature 97.7 [degF] Don Bell MD Work Phone: [facility] 08-04-2023 11:14-0400 Diastolic blood pressure 78 mm[Hg] Julian Kruse MD Work Phone: [facility] 08-04-2023 11:14-0400 Heart rate 74 /min Julian Kruse MD Work Phone: [facility] 08-04-2023 11:14-0400 Respiratory rate 16 /min Julian Kruse MD Work Phone: [facility] 08-04-2023 11:14-0400 SaO2% (BldA) [Mass fraction] 100 % Julian Kruse MD Work Phone: [facility] 08-04-2023 11:14-0400 Systolic blood pressure 120 mm[Hg] Julian Kruse MD Work Phone: [facility] 08-04-2023 09:56-0400 Body height 170.2 cm Julian Kruse MD Work Phone: [facility] 08-04-2023 09:56-0400 Body mass index (BMI) [Ratio] 23.96 kg/m2 Julian Kruse MD Work Phone: [facility] 08-04-2023 09:56-0400 Body weight 69.4 kg Julian Kruse MD Work Phone: [facility] 08-04-2023 09:42-0400 Body temperature 97.11 [degF] Julian Kruse MD Work Phone: [facility] 06-26-2023 10:54-0400 Body height 170.2 cm Julian Kruse MD Work Phone: [facility] 06-26-2023 10:54-0400 Body mass index (BMI) [Ratio] 24.43 kg/m2 Julian Kruse MD Work Phone: [facility] 06-26-2023 10:54-0400 Body temperature 97.2 [degF] Julian Kruse MD Work Phone: [facility] 06-26-2023 10:54-0400 Body weight 70.76 kg Julian Kruse MD Work Phone: [facility] 06-26-2023 10:54-0400 Diastolic blood pressure 79 mm[Hg] Julian Kruse MD Work Phone: [facility] 06-26-2023 10:54-0400 Heart rate 76 /min Julian Kruse MD Work Phone: [facility] 06-26-2023 10:54-0400 Systolic blood pressure 120 mm[Hg] Julian Kruse MD Work Phone: [facility] 05-27-2023 16:07-0400 Body height 170.[address] Lena Thorne Work Phone: [facility] 05-27-2023 16:07-0400 Body mass index (BMI) [Ratio] 23.9 kg/m2 Dr. Lena Thorne Work Phone: [facility] 05-27-2023 16:07-0400 Body temperature 97.6 [degF] Dr. Lena Thorne Work Phone: [facility] 05-27-2023 16:07-0400 Body weight 69.[address] Lena Thorne Work Phone: [facility] 05-27-2023 16:07-0400 Diastolic blood pressure 70 mm[Hg] Dr. Lena Thorne Work Phone: [facility] 05-27-2023 16:07-0400 Heart rate 65 /min Dr. Lena Thorne Work Phone: [facility] 05-27-2023 16:07-0400 Respiratory rate 16 /min Dr. Lena Thorne Work Phone: [facility] 05-27-2023 16:07-0400 SaO2% (BldA) [Mass fraction] 99 % Dr. Lena Thorne Work Phone: [facility] 05-27-2023 16:07-0400 Systolic blood pressure 116 mm[Hg] Dr. Lena Thorne Work Phone: [facility] 01-20-2023 13:15-0500 Body height 170.[address] Lena Thorne Work Phone: [facility] 01-20-2023 13:15-0500 Body mass index (BMI) [Ratio] 24.7 kg/m2 Dr. Lena Thorne Work Phone: [facility] 01-20-2023 13:15-0500 Body temperature 98.2 [degF] Dr. Lena Thorne Work Phone: [facility] 01-20-2023 13:15-0500 Body weight 71.[address] Lena Thorne Work Phone: [facility] 01-20-2023 13:15-0500 Diastolic blood pressure 72 mm[Hg] Dr. Lena Thorne Work Phone: [facility] 01-20-2023 13:15-0500 Heart rate 80 /min Dr. Lena Thorne Work Phone: [facility] 01-20-2023 13:15-0500 Respiratory rate 16 /min Dr. Lena Thorne Work Phone: [facility] 01-20-2023 13:15-0500 SaO2% (BldA) [Mass fraction] 98 % Dr. Lena Thorne Work Phone: [facility] 01-20-2023 13:15-0500 Systolic blood pressure 120 mm[Hg] Dr. Lena Thorne Work Phone: [facility] 01-01-2023 13:51-0500 Body mass index (BMI) [Ratio] 24.3 kg/m2 Dr. Lena Thorne Work Phone: [facility] 01-01-2023 13:51-0500 Body temperature 97.6 [degF] Dr. Lena Thorne Work Phone: [facility] 01-01-2023 13:51-0500 Body weight 70.[address] Lena Thorne Work Phone: [facility] 01-01-2023 13:51-0500 Diastolic blood pressure 72 mm[Hg] Dr. Lena Thorne Work Phone: [facility] 01-01-2023 13:51-0500 Heart rate 82 /min Dr. Lena Thorne Work Phone: [facility] 01-01-2023 13:51-0500 Respiratory rate 16 /min Dr. Lena Thorne Work Phone: [facility] 01-01-2023 13:51-0500 SaO2% (BldA) [Mass fraction] 99 % Dr. Lena Thorne Work Phone: [facility] 01-01-2023 13:51-0500 Systolic blood pressure 112 mm[Hg] Dr. Lena Thorne Work Phone: [facility] 11-11-2022 13:38-0400 Body temperature 97 [degF] Dr. Lena Thorne Work Phone: [facility] 07-15-2022 14:20-0400 Body height 171.[address] Lena Thorne Work Phone: [facility] 07-15-2022 14:20-0400 Body mass index (BMI) [Ratio] 24.2 kg/m2 Dr. Lena Thorne Work Phone: [facility] 07-15-2022 14:20-0400 Body temperature 98 [degF] Dr. Lena Thorne Work Phone: [facility] 07-15-2022 14:20-0400 Body weight 71.[address] Lena Thorne Work Phone: [facility] 07-15-2022 14:20-0400 Diastolic blood pressure 66 mm[Hg] Dr. Lena Thorne Work Phone: [facility] 07-15-2022 14:20-0400 Heart rate 89 /min Dr. Lena Thorne Work Phone: [facility] 07-15-2022 14:20-0400 Respiratory rate 18 /min Dr. Lena Thorne Work Phone: [facility] 07-15-2022 14:20-0400 SaO2% (BldA) [Mass fraction] 98 % Dr. Lena Thorne Work Phone: [facility] 07-15-2022 14:20-0400 Systolic blood pressure 109 mm[Hg] Dr. Lena Thorne Work Phone: [facility] 07-07-2022 13:13-0400 Body mass index (BMI) [Ratio] 24.2 kg/m2 Dr. Lena Thorne Work Phone: [facility] 07-07-2022 13:13-0400 Body temperature 98 [degF] Dr. Lena Thorne Work Phone: [facility] 07-07-2022 13:13-0400 Body weight 71.[address] Lena Thorne Work Phone: [facility] 07-07-2022 13:13-0400 Diastolic blood pressure 76 mm[Hg] Dr. Lena Thorne Work Phone: [facility] 07-07-2022 13:13-0400 Heart rate 80 /min Dr. Lena Thorne Work Phone: [facility] 07-07-2022 13:13-0400 Respiratory rate 17 /min Dr. Lena Thorne Work Phone: [facility] 07-07-2022 13:13-0400 SaO2% (BldA) [Mass fraction] 95 % Dr. Lena Thorne Work Phone: [facility] 07-07-2022 13:13-0400 Systolic blood pressure 118 mm[Hg] Dr. Lena Thorne Work Phone: [facility] 09-10-2021 15:27-0400 Body height 171.[address] Lena Thorne Work Phone: [facility] Work Phone: 09-10-2021 15:27-0400 Body mass index (BMI) [Ratio] 23.7 kg/m2 Dr. Lena Thorne Work Phone: [facility] Work Phone: 09-10-2021 15:27-0400 Body temperature 95.2 [degF] Dr. Lena Thorne Work Phone: [facility] Work Phone: 09-10-2021 15:27-0400 Body weight 69.[address] Lena Thorne Work Phone: [facility] Work Phone: 09-10-2021 15:27-0400 Diastolic blood pressure 80 mm[Hg] Dr. Lena Thorne Work Phone: [facility] Work Phone: 09-10-2021 15:27-0400 Heart rate 84 /min Dr. Lena Thorne Work Phone: [facility] Work Phone: 09-10-2021 15:27-0400 Respiratory rate 16 /min Dr. Lena Thorne Work Phone: [facility] Work Phone: 09-10-2021 15:27-0400 SaO2% (BldA) [Mass fraction] 99 % Dr. Lena Thorne Work Phone: [facility] Work Phone: 09-10-2021 15:27-0400 Systolic blood pressure 128 mm[Hg] Dr. Lena Thorne Work Phone: [facility] Work Phone: 08-22-2021 15:58-0400 Body mass index (BMI) [Ratio] 23.7 kg/m2 Dr. Lena Thorne Work Phone: [facility] Work Phone: 08-22-2021 15:58-0400 Body temperature 96.4 [degF] Dr. Lena Thorne Work Phone: [facility] Work Phone: 08-22-2021 15:58-0400 Body weight 69.[address] Lena Thorne Work Phone: [facility] Work Phone: 08-22-2021 15:58-0400 Diastolic blood pressure 66 mm[Hg] Dr. Lena Thorne Work Phone: [facility] Work Phone: 08-22-2021 15:58-0400 Heart rate 79 /min Dr. Lena Thorne Work Phone: [facility] Work Phone: 08-22-2021 15:58-0400 Respiratory rate 18 /min Dr. Lena Thorne Work Phone: [facility] Work Phone: 08-22-2021 15:58-0400 SaO2% (BldA) [Mass fraction] 92 % Dr. Lena Thorne Work Phone: [facility] Work Phone: 08-22-2021 15:58-0400 Systolic blood pressure 118 mm[Hg] Dr. Lena Thorne Work Phone: [facility] Work Phone: 06-13-2021 08:56-0400 Body mass index (BMI) [Ratio] 24.4 kg/m2 Dr. Lena Thorne Work Phone: [facility] Work Phone: 06-13-2021 08:56-0400 Body temperature 94.5 [degF] Dr. Lena Thorne Work Phone: [facility] Work Phone: 06-13-2021 08:56-0400 Body weight 71.[address] Lena Thorne Work Phone: [facility] Work Phone: 06-13-2021 08:56-0400 Diastolic blood pressure 70 mm[Hg] Dr. Lena Thorne Work Phone: [facility] Work Phone: 06-13-2021 08:56-0400 Heart rate 81 /min Dr. Lena Thorne Work Phone: [facility] Work Phone: 06-13-2021 08:56-0400 Respiratory rate 20 /min Dr. Lena Thorne Work Phone: [facility] Work Phone: 06-13-2021 08:56-0400 SaO2% (BldA) [Mass fraction] 100 % Dr. Lena Thorne Work Phone: [facility] Work Phone: 06-13-2021 08:56-0400 Systolic blood pressure 112 mm[Hg] Dr. Lena Thorne Work Phone: [facility] Work Phone: 06-13-2021 08:56-0400 Body height 171.[address] Lena Thorne Work Phone: [facility] Work Phone: 06-13-2021 08:56-0400 Body mass index (BMI) [Ratio] 24.4 kg/m2 Dr. Lena Thorne Work Phone: [facility] Work Phone: 06-13-2021 08:56-0400 Body temperature 94.5 [degF] Dr. Lena Thorne Work Phone: [facility] Work Phone: 06-13-2021 08:56-0400 Body weight 71.[address] Lena Thorne Work Phone: [facility] Work Phone: 06-13-2021 08:56-0400 Diastolic blood pressure 70 mm[Hg] Dr. Lena Thorne Work Phone: [facility] Work Phone: 06-13-2021 08:56-0400 Heart rate 81 /min Dr. Lena Thorne Work Phone: [facility] Work Phone: 06-13-2021 08:56-0400 Respiratory rate 20 /min Dr. Lena Thorne Work Phone: [facility] Work Phone: 06-13-2021 08:56-0400 SaO2% (BldA) [Mass fraction] 100 % Dr. Lean Thorne Work Phone: [facility] Work Phone: 06-13-2021 08:56-0400 Systolic blood pressure 112 mm[Hg] Dr. Lena Thorne Work Phone: [facility] Work Phone: 05-22-2021 14:01-0400 Body mass index (BMI) [Ratio] 24.4 kg/m2 Dr. Lena Thorne Work Phone: [facility] Work Phone: 05-22-2021 14:01-0400 Body temperature 97 [degF] Dr. Lena Thorne Work Phone: [facility] Work Phone: 05-22-2021 14:01-0400 Body weight 72.[address] Lena Thorne Work Phone: [facility] Work Phone: 05-22-2021 14:01-0400 Diastolic blood pressure 76 mm[Hg] Dr. Lena Thorne Work Phone: [facility] Work Phone: 05-22-2021 14:01-0400 Heart rate 92 /min Dr. Lena Thorne Work Phone: [facility] Work Phone: 05-22-2021 14:01-0400 Respiratory rate 18 /min Dr. Lena Thorne Work Phone: [facility] Work Phone: 05-22-2021 14:01-0400 SaO2% (BldA) [Mass fraction] 99 % Dr. Lena Thorne Work Phone: [facility] Work Phone: 05-22-2021 14:01-0400 Systolic blood pressure 106 mm[Hg] Dr. Lena Thorne Work Phone: [facility] Work Phone: 05-22-2021 14:01-0400 Body height 172.[address] Lena Thorne Work Phone: [facility] Work Phone: 05-22-2021 14:01-0400 Body mass index (BMI) [Ratio] 24.4 kg/m2 Dr. Lena Thorne Work Phone: [facility] Work Phone: 05-22-2021 14:01-0400 Body temperature 97 [degF] Dr. Lena Thorne Work Phone: [facility] Work Phone: 05-22-2021 14:01-0400 Body weight 72.[address] Lena Thorne Work Phone: [facility] Work Phone: 05-22-2021 14:01-0400 Diastolic blood pressure 76 mm[Hg] Dr. Lena Thorne Work Phone: [facility] Work Phone: 05-22-2021 14:01-0400 Heart rate 92 /min Dr. Lena Thorne Work Phone: [facility] Work Phone: 05-22-2021 14:01-0400 Respiratory rate 18 /min Dr. Lena Thorne Work Phone: [facility] Work Phone: 05-22-2021 14:01-0400 SaO2% (BldA) [Mass fraction] 99 % Dr. Lena Thorne Work Phone: [facility] Work Phone: 05-22-2021 14:01-0400 Systolic blood pressure 106 mm[Hg] Dr. Lena Thorne Work Phone: [facility] Work Phone: 03-13-2021 12:41-0500 Body mass index (BMI) [Ratio] 24.9 kg/m2 Dr. Lena Thorne Work Phone: [facility] Work Phone: 03-13-2021 12:41-0500 Body temperature 98.2 [degF] Dr. eLna Thorne Work Phone: [facility] Work Phone: 03-13-2021 12:41-0500 Body weight 74.[address] Lena Thorne Work Phone: [facility] Work Phone: 03-13-2021 12:41-0500 Diastolic blood pressure 76 mm[Hg] Dr. Lena Thorne Work Phone: [facility] Work Phone: 03-13-2021 12:41-0500 Heart rate 87 /min Dr. Lena Thorne Work Phone: [facility] Work Phone: 03-13-2021 12:41-0500 Respiratory rate 14 /min Dr. Lena Thorne Work Phone: [facility] Work Phone: 03-13-2021 12:41-0500 SaO2% (BldA) [Mass fraction] 97 % Dr. Lena Thorne Work Phone: [facility] Work Phone: 03-13-2021 12:41-0500 Systolic blood pressure 110 mm[Hg] Dr. Lena Thorne Work Phone: [facility] Work Phone: Encounters Encounter Date Encounter Type Care Provider Facility Start: 12-26-2024 ambulatory Lena Ambrocioi ty:[facility] Start: 11-29-2024 End: 11-29-2024 Patient encounter procedure Angelica BHAKTA -[facility] Work Phone: Start: 11-29-2024 End: 11-29-[address] Lena Thorne MD Work Phone: -[facility] Start: 11-21-2024 End: 11-21-2024 Patient encounter procedure Sylvester Bhakta MD -Laboratory Work Phone: Start: 11-21-2024 End: 11-21-[address] Lena Thorne MD Work Phone: -[facility] Start: 11-21-2024 End: 11-21-[address] Sylvester Bhakta MD -[facility] Work Phone: Start: 11-21-2024 End: 11-21-2024 ambulatory Lena Thorne Facility:[facility] Start: 11-03-2024 End: 11-03-[address] Lena Thorne MD Work Phone: -Outpatient Breast [facility] Start: 11-03-2024 End: 11-03-[address] Lena Thorne MD -Outpatient Breast [facility] Work Phone: Start: 11-03-2024 End: 11-03-2024 ambulatory [facility] Facility:[facility] Start: 10-24-2024 End: 10-24-[address] Lena Thorne MD -[facility] Work Phone: Start: 10-24-2024 End: 10-24-[address] Lena Thorne MD Work Phone: -[facility] Start: 10-24-2024 End: 10-24-2024 [facility] Start: 10-21-2024 End: 10-21-[address] Lena Thorne MD Work Phone: -[facility] Start: 10-21-2024 End: 10-21-[address] Lena Thorne MD -[facility] Start: 10-21-2024 End: 10-21-2024 [facility] Start: 08-04-2024 End: 08-04-[address] Sylvester Bhakta MD -[facility] Work Phone: Start: 08-04-2024 End: 08-04-[address] Lena Thorne MD Work Phone: [facility] Work Phone: Start: 08-01-2024 Non-patient / Non-visit Dr. Carlos em MD -[facility] Start: 08-01-2024 End: 08-01-[address] Lena Thorne MD Work Phone: [facility] Work Phone: Start: 08-01-2024 End: 08-01-2024 Patient encounter procedure Alcira Angelo PA -Cardiovascular Services Work Phone: Start: 08-01-2024 End: 08-01-2024 [facility] Facility:[facility] Start: 07-19-2024 End: 07-19-[address] Deanna Fregoso MD -[facility] Work Phone: Start: 07-19-2024 End: 07-19-[address] Lena Thorne MD Work Phone: [facility] Work Phone: Start: 06-15-2024 End: 06-15-[address] Lena Thorne MD -[facility] Start: 06-15-2024 End: 06-15-[address] Lena Thorne MD -[facility] Work Phone: Start: 06-15-2024 End: 06-15-[address] [facility] Facility:[facility] Start: 06-15-2024 End: 06-15-2024 ambulatory [facility] Facility:[facility] Start: 04-05-2024 End: 04-05-[address] Sylvester Bhakta MD -[facility] Work Phone: Start: 04-05-2024 End: 04-05-2024 ambulatory E[facility]ong[facility] Oleghe Facility:[facility] Start: 03-09-2024 End: 03-09-2024 ambulatory Efewongbe Olee Facility:[facility] Start: 02-19-2024 End: 02-19-2024 Telephone encounter Stephania Mota MA [facility] [place] Start: 01-05-2024 End: 01-05-2024 ambulatory Efewongbe Oleghe Facility:[facility] Start: 10-30-2023 End: 10-30-2023 Postop follow up visit related to original px Julian Kruse MD Work Phone: [facility] [place] Comment on above: Encounter for postop erative care (Primary Dx); Hiatal hernia; GERD without esophagitis Start: 10-30-2023 End: 10-30-2023 ambulatory JULIAN KRUSE [facility] Start: 10-02-2023 End: 10-02-2023 Telephone encounter Whitney Ball PA-C Work Phone: [facility] Start: 09-28-2023 End: 09-28-2023 Documentation procedure Autumn Worley RN [facility] Start: 09-25-2023 End: 09-25-2023 Postop follow up visit related to original px Julian Kruse MD Work Phone: [facility] Comment on above: Encounter for postop erative care (Primary Dx); Hiatal hernia; GERD without esophagitis; Oral thrush Start: 09-25-2023 End: 09-25-2023 ambulatory [facility] Start: 09-09-2023 End: 09-10-2023 Subsequent hospital visit by physician Julian Kruse MD Work Phone: [facility] Medical Surgical Unit [facility] Comment on above: Hiatal hernia (Prima ry Dx) Start: 09-09-2023 End: 09-10-2023 Unknown JULIAN KRUSE [facility] Start: 09-04-2023 End: 09-04-2023 ambulatory Autumn Worley RN [facility] Start: 08-28-2023 End: 08-28-2023 Office outpatient visit 25 minutes Julian Kruse MD Work Phone: [facility] Comment on above: GERD without esophag itis (Primary Dx); Hiatal hernia Start: 08-28-2023 End: 08-28-2023 ambulatory [facility] Start: 08-25-2023 End: 08-25-2023 Telephone encounter Татьяна Muñiz PA-C Work Phone: [facility] Comment on above: Appointment Start: 08-24-2023 End: 09-16-2023 Telephone encounter Juliette Vásquez MD Work Phone: [facility] Endocrinology Comment on above: OTHER Start: 08-21-2023 End: 08-25-2023 Evaluation and management of inpatient Jayjay Fortune MD Work Phone: [facility] Medical Surgical Unit [facility] Comment on above: Generalized abdomina l pain (Primary Dx); Nausea and vomiting, unspecified vomiting type Start: 08-20-2023 End: 08-20-2023 Emergency department patient visit Don Bell MD Work Phone: [facility] EMERGENCY DEPT Comment on above: Abdominal pain, unsp ecified abdominal location (Primary Dx); Constipation, unspecified constipation type Start: 08-04-2023 End: 08-04-2023 [facility] Work Phone: [facility] Start: 08-04-2023 End: 08-04-2023 Anesthesia consultation Lazaro Escobar DO Work Phone: [facility] Start: 08-04-2023 End: 08-04-2023 ambulatory Whitneyher Quinn CLARK Work Phone: [facility] Start: 08-04-2023 End: 08-04-2023 Subsequent hospital visit by physician Julian Kruse MD Work Phone: [facility] Comment on above: Diaphragmatic hernia without obstruction or gangrene; Gastro-esophageal reflux disease without esophagitis Start: 07-29-[address] Lena Thorne MD Work Phone: [facility] Start: 07-24-2023 End: 07-24-2023 Subsequent hospital visit by physician Julian Kruse MD Work Phone: [facility] X-Ray Comment on above: Hiatal hernia Start: 07-24-2023 End: 07-24-2023 ambulatory LENA THORNE [facility] Start: 07-15-[address] [facility] Whitney Ball PA-C Work Phone: [facility]roscopic [facility] Start: 07-15-2023 ambulatory Whitney Ball PA-C Work Phone: [facility] Start: 06-29-2023 Telephone encounter Julian cortez MD Work Phone: [facility] Start: 06-26-2023 End: 06-26-2023 Office outpatient new 45 minutes Julian Kruse MD Work Phone: [facility] Comment on above: Hiatal hernia (Prima ry Dx); GERD without esophagitis Start: 06-26-2023 End: 06-26-2023 ambulatory LENA THORNE [facility] Start: 06-02-2023 Telephone encounter Julian cortez MD Work Phone: [facility]roscopic [facility] Comment on above: Results Start: 05-27-2023 End: 05-27-[address] Lena Thorne Work Phone: [facility] Work Phone: Start: 05-27-2023 End: 05-27-[address] Lena Thorne Work Phone: [facility]-Radiology, [facility] Work Phone: Start: 05-27-2023 End: 05-27-[address] Lena Thorne Work Phone: [facility] Internal Medicine Work Phone: Start: 02-12-2023 End: 02-12-[address] Lena Thorne Work Phone: [facility] Work Phone: Start: 02-12-2023 End: 02-12-[address] Lena Thorne Work Phone: [facility]-Laboratory Work Phone: Start: 01-20-2023 End: 01-20-[address] Lena Thorne Work Phone: [facility] Endocrinology Work Phone: Start: 01-01-2023 End: 01-01-[address] Lena Thorne Work Phone: [facility] Internal Medicine Work Phone: Start: 12-30-2022 End: 12-30-[address] Lena Thorne Work Phone: [facility] Work Phone: Start: 12-30-2022 End: 12-30-[address] Lena Thorne Work Phone: [facility]-Laboratory, [facility] Start: 11-11-2022 End: 11-11-[address] Lena Thorne Work Phone: [facility] Internal Medicine Work Phone: Start: 09-11-2022 End: 09-11-[address] Lena Thorne Work Phone: [facility] Work Phone: Start: 09-11-2022 End: 09-11-[address] Lena Thorne Work Phone: [facility]-Outpatient Breast Imaging Work Phone: Start: 07-15-2022 End: 07-15-[address] Lena Thorne Work Phone: [facility] Endocrinology Work Phone: Start: 07-07-2022 End: 07-07-2022 Encounter for general adult medical examination without abnormal findings Dr. Lena Thorne Work Phone: [facility] Start: 07-07-2022 End: 07-07-[address] [facility] Work Phone: Start: 09-12-2021 End: 09-12-[address] Lena Thorne Work Phone: [facility] Endocr[facility] Start: 09-10-2021 End: 09-10-[address] Lena Thorne Work Phone: [facility]-Outpatient Bone Densitometry Start: 08-22-[address] Lena Thorne Work Phone: [facility] Start: 08-22-2021 End: 08-22-2021 Encounter for general adult medical examination without abnormal findings Dr. Lena Thorne Work Phone: [facility] Start: 08-22-2021 End: 08-22-[address] Lena Thorne Work Phone: [facility] Start: 06-26-2021 Non-patient / Non-visit Dr. Ruben Thorne Work Phone: [facility] Start: 06-26-2021 End: 06-26-[address] Lena Thorne Work Phone: [facility]-Cardiovascula r Services Start: 06-13-2021 End: 06-13-[address] Lena Thorne Work Phone: [facility] Start: 05-27-2021 End: 05-27-[address] Lena Thorne Work Phone: [facility]-Laboratory, [facility] Start: 05-22-2021 End: 05-22-[address] Lena Thorne Work Phone: [facility] Start: 03-13-2021 End: 03-13-[address] 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 Work Phone: Start: 08-25-2023 Glucose quantitative blood xcpt reagent strip Chico Zaragoza MD Work Phone: Start: 08-24-2023 Glucose quantitative blood xcpt reagent strip Chico Zaragoza MD Work Phone: Start: 08-24-2023 Glucose quantitative blood xcpt reagent strip Chico Zaragoza MD Work Phone: Start: 08-24-2023 Glucose quantitative blood xcpt reagent strip Chico Zaragoza MD Work Phone: Start: 08-24-2023 Glucose quantitative blood xcpt reagent strip Chico Zaragoza MD Work Phone: Start: 08-23-2023 Glucose quantitative blood xcpt reagent strip Chico Zaragoza MD Work Phone: Start: 08-23-2023 Glucose quantitative blood xcpt reagent strip Chico Zaragoza MD Work Phone: Start: 08-23-2023 End: 08-23-2023 Glucose quantitative blood xcpt reagent strip Chico Zaragoza MD Work Phone: Start: 08-23-2023 Comprehensive metabo lic panel Chico Zaragoza MD Work Phone: Start: 08-22-2023 Glucose quantitative blood xcpt reagent strip Chico Zaragoza MD Work Phone: Start: 08-22-2023 Glucose quantitative blood xcpt reagent strip Chico Zaragoza MD Work Phone: Start: 08-22-2023 Us abdominal real ti me w/image documentation Ronnie Alexandre MD Work Phone: Start: 08-22-2023 End: 08-22-2023 Glucose quantitative blood xcpt reagent strip Chico Zaragoza MD Work Phone: Start: 08-22-2023 End: [...] 08-20-2023 Urinalysis complete panel - Urine Hoa Calhoun PA-C Work Phone: Start: 08-20-2023 Urnls dip stick/tabl et rgnt auto w/o microscopy Hoa Calhoun PA-C Work Phone: Start: 08-20-2023 Ct abdomen [...] Thorne Work Phone: Start: 09-11-2022 Screening mammography Chey Thorne Work Phone: Start: 09-10-2021 Dual energy X-ray absorptiometry Dr. Lena Thorne Work Phone: Start: 09-10-2021 Screening mammography Chey Thorne Work Phone: Plan of Treatment Date Care Activity Detail Author Start: 11-11-2027 DTaP/Tdap/Td Vaccines (2 - Td or Tdap) DTaP/Tdap/Td Vaccines (2 - Td or Tdap) [facility] Start: 11-11-2027 DTaP/Tdap/Td Vaccines (3 - Td or Tdap) DTaP/Tdap/Td Vaccines (3 - Td or Tdap) [facility] Start: 11-21-2024 Thyroperoxidase Ab [Units/volume] in Serum or Plasma [facility] Start: 10-24-2024 Urine microalbumin/creatinine ratio measurement [facility] Start: 09-09-2024 Diabetes: Estimated Glomerular Filtration Rate for Kidney Health Diabetes: Estimated Glomerular Filtration Rate for Kidney Health [facility] Start: 10-30-2023 End: 10-30-2023 Patient encounter procedure 10/30/2023 11:30 AM EDT Office Visit [facility] [address] [place] [address] [place] [phone] Julian Kurse MD [address] [place] [address] [place] [phone] [facility] Start: 10-27-2023 End: 10-27-2023 Patient encounter procedure 10/27/2023 9:00 AM EDT Office Visit [facility] [address] [place] [phone] Whitney Ball PA-C [address] [place], [place] [phone] [facility] Start: 10-18-2023 COVID-19 Vaccine ( season) COVID-19 Vaccine () [facility] Start: 10-18-2023 COVID-19 Vaccine ( season) COVID-19 Vaccine () [facility] Start: 10-18-2023 Influenza vaccination Influenza Vaccine (#1) [facility] Start: 09-25-2023 End: 09-25-2023 Patient encounter procedure 09/25/2023 11:15 AM EDT Office Visit [facility] [address] [place] [phone] Julian Kruse MD [address] [facility] [address] [place] [address] [facility] Start: 09-09-2023 End: 09-09-2023 Admission to same day surgery center [facility] MAIN OR Comment on above: LAPAROSCOPIC HIATAL HERNIA REPAIR, WITH MESH, WITH POSTERIOR FUNDOPLICATION, POSSIBLE OPEN [77170 (CPT )] LAPAROSCOPIC HIATAL HERNIA REPAIR, WITH MESH, WITH POSTERIOR FUNDOPLICATION, [20261 (CPT )] Start: 09-09-2023 End: 09-09-2023 Egd transoral biopsy single/multiple [facility] Operating Room Start: 09-09-2023 End: 09-09-2023 Laps rpr paraesphgl hrna incl fundplsty w/mesh [facility] Operating Room Start: 09-09-2023 Subsequent hospital visit by physician [facility] MA[facility] OR Start: 09-02-2023 End: 09-02-2023 Admission to same day surgery center 09/02/2023 7:00 AM EDT - 09/02/2023 9:30 AM EDT Surgery [facility] MAIN OR [address] [place] [phone] Julian Kruse MD [address] [facility] [address] [place] [address] LAPAROSCOPIC HIATAL HERNIA REPAIR, WITH MESH, WITH POSTERIOR FUNDOPLICATION, POSSIBLE OPEN [27561 (CPT )] [facility] MAIN OR Comment on above: LAPAROSCOPIC HIATAL HERNIA REPAIR, WITH MESH, WITH POSTERIOR FUNDOPLICATION, POSSIBLE OPEN [60758 (CPT )] Start: 09-02-2023 End: 09-02-2023 Egd transoral biopsy single/multiple ESOPHAGOGASTRODUODENOSCOPY WITH BIOPSY Diaphragmatic hernia without obstruction or gangrene Acute bronchiolitis, unspecified 09/02/2023 7:00 AM EDT [facility] Operating Room Start: 09-02-2023 End: 09-02-2023 Laps rpr paraesphgl hrna incl fundplsty w/mesh LAPAROSCOPY REPAIR PARAESOPHAGEAL HERNIA INCLUDING FUNDOPLASTY WITH MESH Diaphragmatic hernia without obstruction or gangrene Acute bronchiolitis, unspecified 09/02/2023 7:00 AM EDT [facility] Operating Room Start: 09-02-2023 Subsequent hospital visit by physician 09/02/2023 5:00 AM EDT Hospital Encounter [facility] MAIN OR [address] [place] [phone] Julian Kruse MD [address] [facility] [address] [place] [address] [facility] MAIN OR Start: 08-28-2023 End: 08-28-2023 Patient encounter procedure 08/28/2023 10:00 AM EDT Consult [facility] [address] [facility] [address] [place] [phone] Julian Kruse MD [address] [facility] [address] [place], [place] [phone] [facility] Start: 08-26-2023 End: 08-26-2023 Admission to establishment [facility] Pre-Admit Testing Start: 08-04-2023 End: 08-04-2023 Admission to same day surgery center 08/04/2023 11:00 AM EDT - 08/04/2023 11:30 AM EDT Surgery [facility] [address] [facility] [place] [address] [address] [place] [phone] ESOPHAGOGASTRODUODENOSCOPY WITH BIOPSY [48522 (CPT )] [facility] [address] [facility] Comment on above: ESOPHAGOGASTRODUODENOSCOPY WITH BIOPSY [ 99106 (CPT )] Start: 08-04-2023 Subsequent hospital visit by physician 08/04/2023 11:00 AM EDT Hospital Encounter [facility] [address] [place] [phone] Julian Kruse MD [address] [place] [phone] [facility] [address] [facility] Start: 08-04-2023 End: 08-04-2023 Egd transoral biopsy single/multiple [facility] Start: 07-24-2023 End: 07-24-2023 Patient encounter procedure 07/24/2023 10:00 AM EDT Appointment [facility] X[facility] [address] [place] [phone] [address] [place] [phone] [facility] Start: 06-26-2023 End: 06-25-2024 RF Upper gastrointestinal tract and Small bowel Single view W contrast PO FL upper GI double contrast w KUB Imaging Routine Hiatal hernia Expected: 06/26/2023, Expires: 06/25/2024 [facility] [employer] Work Phone: Comment on above: Expected: 06/26/2023, Expires: Start: 06-26-2023 End: 06-26-2023 Patient encounter procedure 06/26/2023 11:15 AM EDT Office Visit [facility] [address] [facility] [address] [place] [address] Julian Kruse MD [address] [facility] [address] [place] [address] [facility] Start: 10-17-2022 COVID-19 Vaccine ( season) COVID-19 Vaccine ( season) [facility] Start: 2021 RSV Immunization for Adults (1 - 1-dose 75+ series) RSV Immunization for Adults (1 - 1-dose 75+ series) [facility] Start: 05-22-2021 Patient referral [facility] Work Phone: Start: 2006 RSV Immunization aged 60 or older (1 - 1-dose 60+ series) RSV Immunization aged 60 or older (1 - 1-dose 60+ series) [facility] Start: 1996 Zoster Vaccines (1 of 2) Zoster Vaccines (1 of 2) [facility] Start: 1964 Diabetes: Urine Albumin-Creatinine Ratio for Kidney Health Diabetes: Urine Albumin-Creatinine Ratio for Kidney Health [facility] Start: 1964 Hepatitis C screening Hepatitis C Screening [facility] Start: 1958 Depression Screening Depression Screening [facility] Start: 1945 Medicare Annual Wellness (AWV) Medicare Annual Wellness (AWV) [facility] Start: 1945 Screening for osteoporosis Bone Density Scan [facility] CBC W Auto Different ial panel - Blood [facility] Work Phone: CBC W Auto Different ial panel - Blood [facility] Creatinine [Mass/vol ume] in Urine collected for unspecified duration [facility] DXA Bone [Mass/Area] Bone density [facility] Hemoglobin A1c/Hemoglobin.total in Blood [facility] Lipid 1995 panel - S alfredo or Plasma [facility] Work Phone: Lipid 1995 panel - S alfredo or Plasma [facility] Lipid 1995 panel - S alfredo or Plasma [facility] Microalbumin [Mass/v olume] in Urine [facility] Patient referral [facility] Work Phone: Thyroid stimulating hormone measurement [facility] Tissue exam [facility] Work Phone: Comment on above: Release Upon Ordering for 1 Occurrences starting 08/04/2023 Urine microalbumin/c reatinine ratio measurement [facility] Work Phone: US Thyroid gland [facility] Immunizations Immunization Date Immunization Notes Care Provider [facility] 11-29-2024 Seasonal trivalent influenza vaccine, adjuvanted, preservative free Dr. Lena Thorne MD Work Phone: [facility] 12-03-2023 Seasonal trivalent influenza vaccine, adjuvanted, preservative free Dr. Lena Thorne MD Work Phone: [facility] 11-11-2022 influenza, injectabl e, quadrivalent, preservative free Dr. Lena Thorne Work Phone: [facility] 11-11-2022 influenza virus vacc ine, unspecified formulation Don Bell MD Work Phone: [facility] 12-20-2021 Influenza, High-dose Seasonal, Quadrivalent, Preservative Free Julian Kruse MD Work Phone: [facility] 04-27-2020 Covid (Moderna) Dr. Denny Thorne Work Phone: [facility] 10-17-2019 influenza, high dose seasonal, preservative-free Julian Kruse MD Work Phone: [facility] 11-17-2018 pneumococcal polysaccharide vaccine, [address] Lena Thorne Work Phone: [facility] 11-17-2018 pneumococcal vaccine , unspecified formulation Dr. Lena Thorne Work Phone: [facility] Work Phone: 11-17-2018 Fluad 2019-20 65yr up(PF)45 mcg(15 mcgx3)/0.5 mL intramuscular syringe (flu vac Dr. Lena Thorne Work Phone: [facility] Work Phone: 12-08-[address] Lena Thorne Work Phone: [facility] 12-08-2017 influenza, seasonal, injectable, preservative free Julian Kruse MD Work Phone: [facility] 11-10-2017 pneumococcal vaccine , unspecified formulation Dr. Lena Thorne Work Phone: [facility] Work Phone: 11-10-2017 diphtheria, tetanus toxoids and acellular pertussis vaccine, unspecified formulation Dr. Lena Thorne Work Phone: [facility] Work Phone: 11-10-2017 pneumococcal conjuga te vaccine, [address] Lena Thorne Work Phone: [facility] 11-10-2017 tetanus toxoid, redu zohaib diphtheria toxoid, and acellular pertussis vaccine, adsorbed Dr. Lena Thorne Work Phone: [facility] 12-18-2008 novel influenza-H1N1 -09, preservative-free, injectable Julian Kruse MD Work Phone: [facility] Payers Date Payer Category Payer Self-pay [id number] 2021 Medicare supplementa l policy (as second payer) [facility] MEDICARE SUPPLEMENT [id number] 2021 Unknown [employer] [place] MEDIC[place] SUPPLEMENT [id number] 2021-Present [address] [place] [address] Supplement [id number] 2012 Unknown [id number] 2011 Medicare [id number] 2011 Medicare [id number] Unknown [id number] [id number] .462 Unknown [id number] 2.16.840.1.032056.3.579.2 .462 Unknown [id number] 2.16.840.1.788644.3.579.2 .462 Unknown [id number] 2.16.840.1.294956.3.579.2 .462 Unknown [id number] 2.16.840.1.179516.3.579.2 .462 Unknown [id number] 2.16.840.1.273596.3.579.2 .462 Unknown [id number] 2.16.840.1.012449.3.579.2 .462 Unknown [id number] 2.16.840.1.631759.3.579.2 .462 Unknown [id number] 2.16.840.1.505310.3.579.2 .462 Unknown [id number] 2.16.840.1.736322.3.579.2 .462 Unknown [id number] 2.16.840.1.543221.3.579.2 .462 Unknown [id number] 2.16840.1.169712.3.579.2 .462 Unknown [id number] 2.16840.1.113721.3.579.2 .462 Unknown [id number] 2.16840.1.513769.3.579.2 .462 Unknown [id number] 2.840.1.384730.3.579.2 .462 Unknown [id number] 2.840.1.292286.3.579.2 .462 Unknown [id number] 2.0.1.236772.3.579.2 .462 Social History Date Type Detail Facility Start: 05-22-2021 End: 05-27-2023 Tobacco smoking status NHIS Unknown if ever smoked [facility] Start: 1945 Sex Assigned At Female [facility] Start: 1945 Sex Assigned At Not on file [facility] Start: 06-26-2023 End: 10-30-2023 Gender identity Not on file [facility] Start: 06-26-2023 End: 07-29-2023 Tobacco smoking status NHIS Never smoked tobacco [facility] Start: 06-26-2023 Tobacco use and exposure Smokeless tobacco non-user [facility] Start: 06-26-2023 Alcohol intake Current drinke r of alcohol (finding) [facility] Start: 06-26-2023 Alcohol Comment SOCIALLY [facility] Start: 06-26-2023 End: 10-30-2023 History of Social function [facility] Start: 08-04-2023 End: 10-30-2023 Alcoholic beverage intake Ex-drinker (finding) [facility] How often to you hav e a drink containing alcohol? Never [facility] How many standard drinks containing alcohol do you have on a typical day? Patient does not drink [facility] Within the last year , have you been afraid of your partner or ex-partner? No [facility] Start: 06-02-2023 Sex Female (finding) [facility] Medical Equipment Procedure Code Equipment Code Equipment [...] 06-13-2021 Lancets (Accu-Ch ek Fastclix Lancet Drum) [facility] Start: 09-12-2021 Pen Needle, Diab etic 32 gauge x 5/32 needle Start: 11-21-2024 Lancets (Accu-Ch ek Fastclix Lancet Drum) [facility] Start: 09-12-2021 End: 09-12-2021 Pen Needle, Diab etic (Bd Ultra-Fine Naty Pen Needle) 32 gauge x 5/32 needle Start: 01-05-2024 End: 06-08-2024 Pen Needle, Diab etic (Bd Ultra-Fine Naty Pen Needle) 32 gauge x 5/32 needle Start: 06-08-2024 End: 11-21-2024 Clinical Notes 06-02-2023 to 11-29-2024 Note Date & Type Note Facility 11-29-2024 Progress note [facility] 10-24-2024 Evaluation note Diagnosis Onset Date Resolution Osteoarthritis acute October 24, 2024 12:54pm Essential (primary) hypertension chronic October 24 025 12:54pm GERD (gastroesophageal reflux disease) chronic October 24 025 12:54pm Hyperlipidemia chronic October 24, 2024 12:54pm Type 2 diabetes mellitus chronic October 24, 2024 12:54pm Abdominal pain chronic November 2:20pm Essential (primary) hypertension chronic November 21 2:20pm Hyperlipidemia chronic November 2:20pm Thyroid nodule chronic November 2:20pm Type 2 diabetes mellitus chronic November 21, 2024 2:20pm [facility] Work Phone: 1(161) 154-196606-19-2025 Evaluation note* Diagnosis Onset Date Resolution Status [...] 12:54pm Hyperlipidemia chronic October 24, 2024 12:54pm [facility] Work Phone: 1(778) 960-494906-19-2025 Evaluation note* Diagnosis Onset Date Resolution Status [...] 12:54pm Hyperlipidemia chronic October 24, 2024 12:54pm Type 2 diabetes mellitus acute November 21, 2024 2:20pm Thyroid nodule chronic November 2:20pm [facility] Work Phone: 1(721) 173-453006-03-2025 Evaluation note* Diagnosis Onset Date Resolution Status Admit Date Carotid artery disease chronic Ju 2024 1:50pm Diastolic dysfunction chronic Jul 1:50pm Essential (primary) hypertension chr onic July 19, 2024 1:50pm Hyperlipidemia chronic July 19, 2024 1:50pm Diabetes mellitus type 2, controlled, without complications deleted July 19, 2024 1 :50pm Diabetes chronic August 04 2:18pm Essential (primary) hypertension chr onic August 04, 2024 2:18pm Hyperlipidemia chronic August 04, 2024 2:18pm Thyroid nodule chronic August 04, 2024 2:18pm [facility] Work Phone: 1(322) 370-656506-03-2025 Evaluation note* Diagnosis Onset Date Resolution Status Admit Date Carotid artery disease chronic Ju ne 2024 1:50pm Diastolic dysfunction chronic Brayden e 2024 1:50pm Essential (primary) hypertension chronic July 19, [...] disease) chronic October 24, 025 12:54pm Hyperlipidemia chronic October 24, 2024 12:54pm [facility] Work Phone: 1(681) 306-180806-03-2025 Progress [facility] [address] [place] [address] OFFICE VISIT Date of Service: 07/19/24 MR#: [id number] Acct: [id number] Name: SHEYLA RAMIREZ Rep #: [id number] : 1945 Provider: Dr. Justen Fregoso MD Age/Sex: 78/F Location: [facility] Status: Signed HPI HPI History of Present [...] air Intake Visit Reasons: 1 Y FU [employer] Employee Required: No Accompanied by: Self Is patient [...] #6 ea 04/05/24 07/19/24 Rx (blood-glucose sensor) blood-glucose,court attendant,cont #1 ea 04/05/24 07/19/24 Rx (FreeStyle Wilfredo 3 Collins) Tresiba FlexTouch U-100 100 5 unit (0.05 [...] without complications: Status: Chronic Qualifiers: Diabetes mellitus alf insulin use: without oysterman use Qualified Code(s): E11.9 - Type 2 [...] current use of insulin E11.9 Diabetes mellitus alf insulin use: without alf use Hyperlipidemia, unspecified hyperlipidemia type E78.5 Hyperlipidemia type: unspecified Coding Level of Care Code Off vis,est,level 4 Diagnoses Carotid artery disease I77.9 Diastolic dysfunction I51.89 Essential (primary) hypertension I10 Controlled type 2 diabetes mellitus without complication, without long-term current use of insulin E11.9 Diabetes mellitus alf insulin use: without oysterman use Hyperlipidemia, unspecified hyperlipidemia type E78.5 Hyperlipidemia type: unspecified Clinical Quality Measures Falls Risk Screening/Assistive Devices Have you fallen in the past year?: No Cardiac Ejection fraction %: 65 07/19/24 1433 > Date _ Deanna Fregoso MD Cosigner Signature: Date (if applicable) CC: Dr. Lena Thorne MD ~ [facility]06-03-2025 Progress note Author Deanna Fregoso [facility] Note Date/Time July 19, 2024 2:33p m [facility] [address] [place] [address] OFFICE VISIT Date of Service: 07/19/24 MR#: [id number] Acct: [id number] Name: SHEYLA RAMIREZ Rep #: [id number] : 1945 Provider: Dr. Justen Fregoso MD Age/Sex: 78/F Location: [facility] Status: Signed HPI HPI History of Present [...] air Intake Visit Reasons: 1 Y FU [employer] Employee Required: No Accompanied by: Self Is patient [...] #6 ea 04/05/24 07/19/24 Rx (blood-glucose sensor) blood-glucose,court attendant,cont #1 ea 04/05/24 07/19/24 Rx (FreeStyle Wilfredo 3 Collins) Tresiba FlexTouch U-100 100 5 unit (0.05 mL) subcut QD AY #15 mL 05/03/24 07/19/24 Rx unit/mL (3 mL) subcutaneous pen (insulin degludec) metformin 500 mg tablet 500 mg PO BID #180 tabs 04/1607/19/24 Rx pen needle, diabetic 32 gauge x #50 ea 06/08/24 Rx (BD Ultra-Fine Naty Pen Needle) Novolog [...] without complications: Status: Chronic Qualifiers: Diabetes mellitus alf insulin use: without oysterman use Qualified Code(s): E11.9 - Type 2 [...] current use of insulin E11.9 Diabetes mellitus oysterman insulin use: without alf use Hyperlipidemia, unspecified hyperlipidemia type E78.5 Hyperlipidemia type: unspecified Coding Level of Care Code Off vis,est,level 4 Diagnoses Carotid artery disease I77.9 Diastolic dysfunction I51.89 Essential (primary) hypertension I10 Controlled type 2 diabetes mellitus without complication, without long-term current use of insulin E11.9 Diabetes mellitus oysterman insulin use: without oysterman use Hyperlipidemia, unspecified hyperlipidemia type E78.5 Hyperlipidemia type: unspecified Clinical Quality Measures Falls Risk Screening/Assistive Devices Have you fallen in the past year?: No Cardiac Ejection fraction %: 65 07/19/24 1433 <Electronically signed by Deanna Fregoso MD> Date _ Deanna Fregoso MD Cosigner Signature: Date (if applicable) CC: Dr. Lena Thorne MD ~ [facility] Work Phone: 1(737) 944-844904-30-2025 Evaluation note* Diagnosis Onset Date Resolution Status Admit Date Diabetes chronic June 15 1:58pm Essential (primary) hypertension chr onic June 15, 2024 1:58pm GERD (gastroesophageal reflu x disease) chronic June 15, 2024 1:58pm Hyperlipidemia chronic May 1:58pm Carotid artery disease chronic Ju 2024 1:50pm Diastolic dysfunction chronic Jul 1:50pm Essential (primary) hypertension chr onic July 19, 2024 1:50pm Hyperlipidemia chronic July 19, 2024 1:50pm Diabetes mellitus type 2, controlled, without complications deleted July 19, 2024 1 :50pm Diabetes chronic August 04 2:18pm Essential (primary) hypertension chr onic August 04, 2024 2:18pm Hyperlipidemia chronic August 04, 2024 2:18pm Thyroid nodule chronic August 04, 2024 2:18pm [facility] Work Phone: 1(736) 300-778902-18-2025 Evaluation note* Diagnosis Onset Date Resolution Status Admit Date Diabetes chronic April 05, 2024 2:20pm Essential (primary) hypertension chronic April 05, 025 2:20pm Hyperlipidemia chronic March 192024 2:20pm Diabetes chronic June 15 1:58pm Essential (primary) hypertension chronic June 15, 2024 1:58pm GERD (gastroesophageal reflu x disease) chronic June 15, 2024 1:58pm Hyperlipidemia chronic May 1:58pm Carotid artery disease chronic 2024 1:50pm Diabetes mellitus type 2, controlled, without complications chronic July 19, 2024 1 :50pm Diastolic dysfunction chronic Jul 1:50pm Essential (primary) hypertension chronic July 19, 2024 1 :50pm Hyperlipidemia chronic July 19, 2024 1:50pm [facility] Work Phone: 1(720) 470-788701-03-2025 Telephone encounter Note* Telephone Encounter - Татьяна Muñiz PA-C - 02/19/2024 3:03 PM EST Sounds good, thanks. [id number] Miscellaneous Notes* Telephone Encounter - Татьяна Muñiz [...] get the specifics. DP documented in this [facility]01-03-2025 Telephone encounter Note* Telephone Encounter - [...] few weeks to see if it helps [id number] Telephone encounter Note* Telephone Encounter - Татьяна [...] symptoms that should resolve with medical therapy. [id number] Telephone encounter Note* Telephone Encounter - Niesha Garcia - 02/19/2024 2:27 PM EST LAPAROSCOPIC HIATAL HERNIA REPAIR, WITH MESH, WITH POSTERIOR FUNDOPLICATION AND EGD -on 09/09/23 w/ JZ Pt stated she is having trouble swallowing [...] but cannot. -not taking any medication currently [facility] [id number] Telephone encounter Note* Telephone Encounter - Stephania Mota - 02/19/2024 1:11 PM EST Patient left Voicemail stating that she needs a return call to schedule an appt as she is having some problems since her Lap HH Repair with Dr Kruse on 09/09/2023. Patient did not state exactly what issues she was having. May need to return call and get the specifics. DP [facility] [id number] History of Present illness Narrative* Julian Kruse MD - 10/30/2023 11:30 AM EDT [facility] - Surgery Patient Name: Sheyla Ramirez Date: [...] times daily. cholecalciferol (Vitamin D-3) 1.25 MG (30068 UT) capsule Take by mouth 1 (one) [...] VITAMIN PO Take by mouth. nystatin (Mycostatin) 710324 UNIT/ML suspension Swish and spit 5 mL [...] as PCP - General (Internal Medicine) Chandana Bailey MD (Gastroenterology) Autumn Worley RN as Registered Nurse (Radon Inspector Manager) Vitor Camarillo (Cardiology) documented in this encounterSWood County HospitalKqmhfc37-45-1726 Telephone encounter Note* Telephone Encounter - Whitney [...] and will call with any further concerns. [facility] [id number] Miscellaneous Notes* Telephone Encounter - Whitney Ball [...] as we discussed today. documented in this encounterSWood County HospitalUhobrf60-49-5063 Telephone encounter Note* Telephone Encounter - Whitney [...] advance her diet as we discussed today. [facility] [id number] History of Present illness Narrative* Autumn Worley RN - 09/28/2023 9:10 AM EDT Images from the original note were not included. Chart reviewed. 30-day [facility] Transition of Care post-hospital discharge on 08/25/23 [...] a 77 y.o. female who presented to [facility] on 09/09/2023 for elective bariatric surgical procedure. [...] Commonly known as: AlphaGAN cholecalciferol 1.25 MG (65528 UT) capsule Commonly known as: Vitamin D-3 [...] Your Medications These medications were sent to [facility] [address] [place] [id number] Hours: Thursday to Thursday 10 am to [...] MD 09/10/23 1:05 PM documented in this [facility]08-09-2024 History of Present illness Narrative* Julian Kruse MD - 09/25/2023 11:15 AM EDT [facility] - Surgery Patient Name: Sheyla Ramirez [...] times daily. cholecalciferol (Vitamin D-3) 1.25 MG (82163 UT) capsule Take by mouth 1 (one) [...] 17 g by mouth daily. nystatin (Mycostatin) 192617 UNIT/ML suspension Swish and spit 5 mL [...] without esophagitis Other orders - nystatin (Mycostatin) 519920 UNIT/ML suspension; Swish and spit 5 mL [...] as PCP - General (Internal Medicine) Chandana Bailey MD (Gastroenterology) Autumn Worley RN as Registered Nurse (Radon Inspector Manager) Vitor Camarillo (Cardiology) documented in this [facility]07-25-2024 Plan of care note* Care Plan - Julian Schmidt RN - 09/10/2023 1:43 PM EDT The patient is The patient's goals for the shift include The clinical goals for the shift include Over the shift, the patient did not make progress toward the following goals. Barriers to progression include . Recommendations to address these barriers include . [facility] [id number] Miscellaneous Notes* Care Plan - Julian Schmidt [...] Limits Permission given to speak with patient footwear sales representative/caregiver as indicated: Confirmation of Payer with patient/family: Yes Payer Name: Medicare Woodruff: No Confirmation of Primary Care Physician: Confirmed [...] Pharmacy Used: [facility] [place] Medication Management: Independent Transportation/Shopping: Independent Transportation [...] from the original note were not included. [facility] - Surgery [facility] Physicians Surgery Patient Name: Sheyla Ramirez OPERATIVE NOTE DATE OF PROCEDURE: 09/09/2023 SURGEON: Julian Kruse MD BOOSTER PUMP OPERATOR: Татьяна Muñiz PA-C PREOPERATIVE DIAGNOSIS: Symptomatic Hiatal [...] the left and right awa around the 50-Lao bougie reapproximating the posterior defect created by the right and left posterior crural columns. At this point, because of the defect, a piece of biologic mesh was selected. A piece of ACell Gentrix Hiatal was utilized, rehydrated according to desulphuring operator's recommendations and introduced into the abdomen. It [...] PA-C was asked to serve as the housing assistant for this procedure. documented in this [facility]07-25-2024 Plan of care note* Care Plan - Julian Schmidt RN - 09/10/2023 1:19 PM EDT The patient is The patient's goals for the shift include The clinical goals for the shift include Over the shift, the patient did not make progress toward the following goals. Barriers to progression include . Recommendations to address these barriers include . [facility] [id number] Note* Care Coordination - Ania Box RN - 09/10/2023 1:13 PM EDT Care Managment Initial Assessment Date: 09/10/2023 Patient Name: Sheyla Ramirez : 1945 Patient Information Source of Information: Patient Cognition/Language: WFL - Within Functional Limits Permission given to speak with patient footwear sales representative/caregiver as indicated: Confirmation of Payer with patient/family: Yes Payer Name: Medicare Woodruff: No Confirmation of Primary Care Physician: Confirmed [...] Pharmacy [facility]: [facility] [place] Medication Management: Independent Transportation/Shopping: Independent Transportation [...] any needs from tcc. Ania Box RN T [facility] [id number] Note* Care Coordination - Ania Box RN - 09/10/2023 1:13 PM EDT Care Managment Initial Assessment Date: 09/10/2023 Patient Name: Sheyla Ramirez : 1945 Patient Information Source of Information: Patient Cognition/Language: WFL - Within Functional Limits Permission given to speak with patient footwear sales representative/caregiver as indicated: Confirmation of Payer with patient/family: Yes Payer Name: Medicare Woodruff: No Confirmation of Primary Care Physician: Confirmed [...] Pharmacy Used: [facility] [place] Medication Management: Independent Transportation/Shopping: Independent Transportation [...] any needs from tcc. Ania Box RN [facility]07-25-2024 NoteDischarge Summary Sheyla Ramirez DOB: 1945 ADMIT DATE: 09/09/2023 DISCHARGE DATE: 09/10/23 ATTENDING PHYSICIAN: Julian Kruse MD VISIT STATUS: Admission CODE STATUS: Full Code DISCHARGE DIAGNOSES: Principal Problem: Hiatal hernia Active Problems: Gastroesophageal reflux disease without esophagitis BMI Classification: Normal Weight (BMI 18.5-24.9) HOSPITAL COURSE: Sheyla Ramirez is a 77 y.o. female who presented to [facility] on 09/09/2023 for elective bariatric surgical procedure. [...] Commonly known as: AlphaGAN cholecalciferol 1.25 MG (76875 UT) capsule Commonly known as: Vitamin D-3 [...] Your Medications These medications were sent to [facility] [address] [place], [place] [address] [address] Hours: Thursday to Thursday 10 am to [...] This note may have been dictated using Cubito Medical Practice Edition 2.6 and/or Swyft Voice Recognition Feature. The document was proofread; however, unrecognized voice recognition certified green building engineer errors may be present. [facility]07-25-2024 Hospital course Narrative* Wilber Coto MD [...] a 77 y.o. female who presented to [facility] on 09/09/2023 for elective bariatric surgical procedure. [...] Commonly known as: AlphaGAN cholecalciferol 1.25 MG (35664 UT) capsule Commonly known as: Vitamin D-3 [...] Your Medications These medications were sent to [facility] [address] [place] [address] Hours: Thursday to Thursday 10 am to [...] This note may have been dictated using Cubito Medical Practice Edition 2.6 and/or Swyft Voice Recognition Feature. The document was proofread; however, unrecognized voice recognition certified green building engineer errors may be present. documented in this [facility]07-25-2024 History of Present illness Narrative* Lane Rey - 09/10/2023 8:10 AM EDT Preliminary negative for leak. * Kandy Smith MD - 09/10/2023 7:00 AM EDT Images from the original note were not included. [facility] - [facility] Patient [...] 35.5 PLT -- 202 BMP: Recent Labs 09/09/2318 09/10/23 010 NA 135 136 K 4.0 4.2 CL [...] Kandy Smith MD PGY-3, General Surgery Pager# [phone] 09/10/2023 9:40 AM Associated attestation - Julian Kruse MD - 09/10/2023 11:11 AM EDT Images from the original note were not included. [facility] - [facility] Patient Name: Sheyla Ramirez Date: 09/10/23 MIS-General Surgery/Bariatric Progress Note Subjective: The patient is doing well, postoperative day #1 from [employer]. No nausea, vomiting, or adverse eventsovernight. Scheduled [...] 202 BMP: Recent Labs 09/09/23 0918 09/10/23 010 NA 135 136 K 4.0 4.2 CL [...] MD 09/10/2023, 11:11 AM documented in this [facility]07-24-2024 Note* Perioperative Nursing Note - Whitney Phelps RN - 09/09/2023 10:43 AM EDT Updated family [place] [id number] Note* Perioperative Nursing Note - Whitney Phelps RN - 09/09/2023 10:43 AM EDT Updated family [place] [id number] NotePatient: Sheyla Ramirez Procedure Summary Date: 09/09/23 Room / Location: [address] Operating Room Anesthesia Start: 658 Anesthesia [...] discharged once all PACU criteria has been met.[facility] [id number] NotePatient: Sheyla Ramirez Procedure Summary Date: 09/09/23 Room / Location: [address] Operating Room Anesthesia Start: 658 Anesthesia [...] Allowed opportunity for questions and acknowledgement of understanding.[facility]07-24-2024 NotePeripheral Block Time Out: 09/09/2023 7:04 AM Patient location during procedure: Procedural Start time: 09/09/2023 7:04 AM End time: 09/09/2023 7:07 AM Reason for block: at surgeon's request and post-op pain management Staffing Performed: PANEL FLOW MACHINE OPERATOR Resident/PANEL FLOW MACHINE OPERATOR: Luis E Franklin APRN - PANEL FLOW MACHINE OPERATOR Preanesthetic Checklist Completed: patient identified, IV checked, site marked, risks and benefits discussed, surgical consent, monitors and equipment checked, pre-op evaluation and timeout performed Region: [place] Primary: TAP (Bupivacaine 0.375%/ Epi 1:200,000/ Dex 0.1mg/mL 40ml divided evenly bilateral) Secondary: Upper rectus (Bupivacaine 0.375%/ Epi 1:200,000/ Dex 0.1mg/mL 20ml divided evenly bilateral) Peripheral Block Patient position: supine Prep: ChloraPrep Patient monitoring: heart rate, practical nursing faculty, continuous pulse ox and continuous capnometry O2: [...] plane. and Local anesthetic injected without difficultyMedications cbgZJVCMedzrx-ueerzxofarr-cwlucdglcfo (TAP) syringe - Injection 60 mL - 09/09/2023 7:04:00 [facility]07-24-2024 Note* Pre- Procedure Note - Nelda Victor RN - 09/09/2023 7:24 AM EDT Preop blood glucose 155 [facility] [id number] Note* Pre-Procedure Note - Nelda Victor RN - 09/09/2023 7:24 AM EDT Preop blood glucose 155 [facility] [id number] NoteAirway Date/Time: 09/09/2023 7:06 AM Urgency: scheduled Airway not difficult General Information and Staff Patient location during procedure: Procedural Resident/PANEL FLOW MACHINE OPERATOR: Asael Ya CRNA Performed: SRNA Indications and [...] approach: 1 Number of other approaches attempted: [address] [place], [place] [id number] Note* Op Note - Julian Kruse MD - 09/09/2023 6:59 AM EDT Images from the original note were not included. [facility] - Surgery [facility] Physicians Surgery Patient Name: Sheyla Ramirez OPERATIVE NOTE DATE OF PROCEDURE: 09/09/2023 SURGEON: Julian Kruse MD BOOSTER PUMP OPERATOR: Татьяна Muñiz PA-C PREOPERATIVE DIAGNOSIS: Symptomatic Hiatal [...] into the abdomen by 5 cm. A Garnavillo drain was used to provide appropriate retraction. [...] the left and right awa around the 50-Lao bougie reapproximating the posterior defect created by the right and left posterior crural columns. At this point, because of the defect, a piece of biologic mesh was selected. A piece of ACell Gentrix Hiatal was utilized, rehydrated according to desulphuring operator's recommendations and introduced into the abdomen. It [...] PA-C was asked to serve as the housing assistant for this procedure. [facility] [id number] Note* Op Note - Julian Kruse MD - 09/09/2023 6:59 AM EDT Images from the original note were not included. [facility] - Surgery [facility] Physicians Surgery Patient Name: Sheyla Ramirez OPERATIVE NOTE DATE OF PROCEDURE: 09/09/2023 SURGEON: Julian Kruse MD BOOSTER PUMP OPERATOR: Татьяна Muñiz PA-C PREOPERATIVE DIAGNOSIS: Symptomatic Hiatal [...] into the abdomen by 5 cm. A Garnavillo drain was used to provide appropriate retraction. [...] the left and right awa around the 50-Lao bougie reapproximating the posterior defect created by the right and left posterior crural columns. At this point, because of the defect, a piece of biologic mesh was selected. A piece of ACell Gentrix Hiatal was utilized, rehydrated according to desulphuring operator's recommendations and introduced into the abdomen. It [...] PA-C was asked to serve as the housing assistant for this procedure. [facility] [id number] Attending History and physical note* Julian Kruse MD - 09/09/2023 6:53 AM EDT H&P reviewed. The patient was examined and there are no changes to the H&P. Source Note - Julian Kruse MD - 08/28/2023 10:00 AM EDT Images from the original note were not included. [facility] Advanced Laparoscopic Surgery, GERD Evaluation Follow-up Visit [...] Gerd Workup Dates Results Referring/GI provider Dr. Bailey Initial Symptoms 06/26/23 GERD, aspiration, regurgitation, coughing [...] 08/22/2023 Performed by Val Chan MD at [facility] ENDOSCOPY SIGMOID COLECTOMY (HISTORICAL) 2010 Laparoscopic sigmoid [...] times daily. cholecalciferol (Vitamin D-3) 1.25 MG (89057 UT) capsule Take by mouth 1 (one) [...] Gerd Workup Dates Results Referring/GI provider Dr. Bailey Initial Symptoms 06/26/23 GERD, aspiration, regurgitation, coughing [...] as PCP - General (Internal Medicine) Chandana Bailey (Gastroenterology) Autumn Worley RN (Radon Inspector Manager) Vitor Camarillo (Cardiology) [facility] [id number] NoteH&P reviewed. The patient was examined and there are no changes to the H&P.[id number] History and physical note* Julian Kruse MD - 09/09/2023 6:53 AM EDT H&P reviewed. The patient was examined and there are no changes to the H&P. Source Note - Julian Kruse MD - 08/28/2023 10:00 AM EDT Images from the original note were not included. [facility] Advanced Laparoscopic Surgery, GERD Evaluation Follow-up Visit [...] Gerd Workup Dates Results Referring/GI provider Dr. Bailey Initial Symptoms 06/26/23 GERD, aspiration, regurgitation, coughing [...] 08/22/2023 Performed by Val Chan MD at [facility] ENDOSCOPY SIGMOID COLECTOMY (HISTORICAL) 2010 Laparoscopic sigmoid [...] times daily. cholecalciferol (Vitamin D-3) 1.25 MG (30126 UT) capsule Take by mouth 1 (one) [...] Gerd Workup Dates Results Referring/GI provider Dr. Bailey Initial Symptoms 06/26/23 GERD, aspiration, regurgitation, coughing [...] as PCP - General (Internal Medicine) Chandana Bailey (Gastroenterology) Autumn Worley RN (Radon Inspector Manager) Vitor Camarillo (Cardiology) documented in this [facility]07-24-2024 NotePatient: Sheyla Ramirez Procedure Information Date/Time: 09/09/23 0700 Procedures: LAPAROSCOPIC HIATAL HERNIA REPAIR, WITH MESH, WITH POSTERIOR FUNDOPLICATION, (Abdomen) - 150 min total ESOPHAGOGASTRODUODENOSCOPY WITH BIOPSY, POSSIBLE OPEN Location: [facility] OR [facility] Operating Room Surgeons: Julian Kruse MD Relevant [...] unspecified as to partial versus complete obstruction ([facility]) No date: Other specified symptoms and signs involving the digestive system and abdomen No date: Personal history of colonic polyps Past Surgical History: Past Surgical History: No date: COLONOSCOPY Comment: 2019 No date: EGD (HISTORICAL) Comment: 201908/04/2023: EGD (HISTORICAL) 08/22/2023: FLEXIBLE SIGMOIDOSCOPY; N/A Comment: Performed by Val Chan MD at [facility] ENDOSCOPY 2011: SIGMOID COLECTOMY (HISTORICAL) Comment: Laparoscopic [...] 155 Equipment Requests: Additional Equipment Requests Scope: [facility]07-23-2024 Hospital Discharge instructions* Discharge Instructions* Julian Kruse MD - 09/08/2023 10:47 AM EDT Images from the original note were not included. [facility] - Surgery [facility] Physicians Surgery DISCHARGE INSTRUCTIONS FOR DR. KRUSE Thank you very much for allowing me to participate in your care, it is truly a privilege. Below please see discharge orders that will help you during your recovery. Please do not hesitate to call theoffice during the day at [phone] for any questions. After hours, the same [...] at most local grocery stores, pharmacies, and chain [employer]-stores. If you have any questions about your [...] beverages are permitted based on tolerance Popsicles Telugu ice Day 2 and Day 3 after your surgery advance diet to full liquid diet which includes anything on the clear liquid diet, plus: Milk, soy, rice and almond Cream of wheat, cream of rice, grits Strained creamed soups Vanilla and strawberry-flavored ice cream Sherbet Blended, custard styled or whipped yogurt Vanilla and butterscotch pudding Nutritional drinks including Ensure , Boost , Kennard Instant Breakfast Mashed potatoes On Day 4 [...] Nutritional drinks including Boost , Ensure , Kennard Instant Breakfast Carbonated drinks Alcohol [place] juices like orange, grapefruit, lemon and nome Breads Pancakes, Lao toast and waffles Crackers (saltine, butter, soda, shun, Goldfish and Cheese Nips ) Toasted bread Untoasted bread, bagels, Garcia and hard rolls, Nicaraguan muffins Crackers with nuts, seeds, fresh or [...] salad dressings, cream sauces and gravies Johnson, jonhson fat, ham fat, lard and salt pork [...] and ricotta cheeses Mild cheese, such as Finnish, brick, mozzarella and baby Singaporean Creamy peanut butter Plain custard or blended fruit yogurt Moist casseroles, such as macaroni & cheese, tuna noodle Grilled or toasted cheese sandwich Tough meats with a lot of gristle Fried, highly seasoned, smoked and fatty meat, fish or poultry, such as frankfurters, luncheon meats, sausage, johnson, spare ribs, beef brisket, sardines, anchovies, duck and goose [place] and other entrees made with pepper or [...] foods Coconut and seeds Pickles and olives [place] sauces, ketchup, barbecue sauce, horseradish, black pepper, chili powder and onion and garlicseasonings Any other strongly flavored seasoning, condiment, spice or herb not tolerated Any food not tolerated documented in this [facility]07-19-2024 History of Present illness Narrative* Autumn Worley RN - 09/04/2023 1:00 PM EDT Chart reviewed enrolled in 30-day [facility] Transition of Care Ambulatory program post-hospital discharge on 08/25/23 Dx: Abdominal pain. 2nd transitions call made introduced self and role. Patient reportsdoing fine denies any health questions or concerns reports did start her Metformin 500 mg twice a day. CM to schedule future outreach. documented in this [facility]07-12-2024 History of Present illness Narrative* Julian Kruse MD - 08/28/2023 10:00 AM EDT Images from the original note were not included. [facility] Advanced Laparoscopic Surgery, GERD Evaluation Follow-up Visit [...] Gerd Workup Dates Results Referring/GI provider Dr. Bailey Initial Symptoms 06/26/23 GERD, aspiration, regurgitation, coughing [...] 08/22/2023 Performed by Val Chan MD at [facility] ENDOSCOPY SIGMOID COLECTOMY (HISTORICAL) 2010 Laparoscopic sigmoid [...] times daily. cholecalciferol (Vitamin D-3) 1.25 MG (94974 UT) capsule Take by mouth 1 (one) [...] Gerd Workup Dates Results Referring/GI provider Dr. Bailey Initial Symptoms 5/10/24 GERD, aspiration, regurgitation, coughing worse at night [...] as PCP - General (Internal Medicine) Chandana Bailey (Gastroenterology) Autumn Worlye RN (Radon Inspector Manager) Vitor Camarillo (Cardiology) documented in this [facility]07-12-2024 [facility] Advanced Laparoscopic Surgery, GERD Evaluation Follow-up Visit [...] Gerd Workup Dates Results Referring/GI provider Dr. Bailey Initial Symptoms 06/26/23 GERD, aspiration, regurgitation, coughing [...] 08/22/2023 Performed by Val Chan MD at [facility] ENDOSCOPY SIGMOID COLECTOMY (HISTORICAL) 2010 Laparoscopic sigmoid [...] times daily. cholecalciferol (Vitamin D-3) 1.25 MG (41170 UT) capsule Take by mouth 1 (one) [...] Gerd Workup Dates Results Referring/GI provider Dr. Bailey Initial Symptoms 06/26/23 GERD, aspiration, regurgitation, coughing worse at night UGI w/ [facility]/Anirudhel 07/24/23 Sm HH, no reflux, no dysmotility [...] Temp 36.4 ?C ( (more content not included)...[facility] [id number] [facility] Advanced Laparoscopic Surgery, GERD Evaluation Follow-up Visit [...] Gerd Workup Dates Results Referring/GI provider Dr. Bailey Initial Symptoms 06/26/23 GERD, aspiration, regurgitation, coughing [...] 08/22/2023 Performed by Val Chan MD at [facility] ENDOSCOPY SIGMOID COLECTOMY (HISTORICAL) 2010 Laparoscopic sigmoid [...] times daily. cholecalciferol (Vitamin D-3) 1.25 MG (26009 UT) capsule Take by mouth 1 (one) [...] Gerd Workup Dates Results Referring/GI provider Dr. Bailey Initial Symptoms 06/26/23 GERD, aspiration, regurgitation, coughing [...] Temp 36.4 ?C ( (more content not included)...[facility]07-09-2024 Telephone encounter Note* Telephone Encounter - Niesha Garcia - 08/25/2023 11:15 AM EDT PAT canceled [facility] [id number] Miscellaneous Notes* Telephone Encounter - Niesha Garcia [...] stress test and other cardiac workup at [place], please see if you can find results in [facility]. She had an EGD with anesthesia [...] does not use MyChart documented in this [facility]07-09-2024 Telephone encounter Note* Telephone Encounter - Татьяна Muñiz PA-C - 08/25/2023 11:12 AM EDT Cardiac ECHO & stress test performed on 08/18 obtained and reviewed - normal. Cardiac clearance obtained. Spoke to patient and let her know that she does NOT need to proceed with PAT tomorrow and we will cancel that appointment. Proceed with office appointment with Dr. Ceballos on Thursday. [facility] Phone: 1(356) 145-544507-09-2024 Telephone encounter Note* Telephone Encounter - Татьяна Muñiz PA-C - 08/25/2023 11:12 AM EDT ----- Message from Julian Kruse MD sent at 08/24/2023 4:54 PM EDT ----- Sha -she was admitted this weekend, I anticipate her going home on Thursday. She states that she hada stress test and other cardiac workup at [place], please see if you can find results in [facility]. She had an EGD with anesthesia [...] we did, she does not use MyChart [facility] [id number] Note* Care Coordination - Ania Box RN - 08/25/2023 11:04 AM EDT Pt did have bm. Plan for discharge to home today. She denies any needs from tcc. [facility] [id number] Note* Care Coordination - Ania Box RN - 08/25/2023 11:04 AM EDT Pt did have bm. Plan for discharge to home today. She denies any needs from tcc. [facility] [id number] Miscellaneous Notes* Care Coordination - Ania Box RN - 08/25/2023 11:04 AM EDT Pt did have bm. Plan for discharge to home today. She denies any needs from tcc. 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 * Op Note - Val Chan MD - 08/22/2023 7:13 AM EDT Endoscopy Center- [facility] Patient Name: Sheyla Ramirez Procedure Date: 08/22/2023 7:13 AM Gender: Female Date of : 1945 Age: 77 Admit Type: Inpatient Note Status: Finalized Endoscopist: Val Chan MD, [id number] Procedure: Flexible Sigmoidoscopy Indications: LLQ abd pain, [...] immediate complications. Procedure Code(s): --- Professional --- 08955, Sigmoidoscopy, flexible; diagnostic, including collection of specimen(s) by brushing or washing, when performed (separate procedure) --- Technical --- 76463, Sigmoidoscopy, flexible; diagnostic, including collection of specimen(s) by brushing or washing, when performed (separate procedure) CPT copyright 2021 [employer]. All rights reserved. The codes documented in this report are preliminary and upon chemistry manager review may be revised to meet current [...] or improved Outcome: Progressing documented in this [facility]07-09-2024 NoteDischarge Summary Sheyla Ramirez : 1945 [...] Complexity: follow up within 7-14 calendar days (21062) [] Severe Complexity: follow up within 7 calendar days (02883) FOLLOW UP TESTING, PENDING RESULTS OR REFERRALS AT TRANSITIONAL CARE VISIT: [] Yes [] No PENDING STUDIES: DISPOSITION: Home FACILITY/HOME CARE AGENCY NAME: Follow up with Lena Pham [address] [facility] [address] Schedule an appointment as soon as possible for a visit in 1 week(s) Sylvester Bhakta MD [address] (more content not included)...[facility]07-09-2024 Hospital course Narrative* Chico Zaragoza MD - 08/25/2023 7:40 AM EDT [...] Complexity: follow up within 7-14 calendar days (66757) [] Severe Complexity: follow up within 7 calendar days (67583) FOLLOW UP TESTING, PENDING RESULTS OR REFERRALS AT TRANSITIONAL CARE VISIT: [] Yes [] No PENDING STUDIES: DISPOSITION: Home FACILITY/HOME CARE AGENCY NAME: Follow up with Lena Pham [address] [address] Schedule an appointment as soon as possible for a visit in 1 week(s) Sylvester Bhakta MD [address] [address] Schedule an appointment as soon as possible for a visit in 2 week(s) Julian Kruse MD [address] [place] [address] [address] [facility] [address] Schedule an appointment as soon as possible [...] frame. DISCHARGE TIME: > 30 minutes SIGNED: Chico Zaragoza MD 08/25/2023, 7:40 AM documented in [facility]07-09-2024 Note* Care Coordination - Chico Zaragoza MD - 08/25/2023 7:37 AM EDT [...] of discharge. Full discharge summary to follow [facility] HealthcareEmddhn11-89-8171 Note* Care Coordination - Chico Zaragoza MD - 08/25/2023 7:37 AM EDT [...] of discharge. Full discharge summary to follow [facility] HealthcareSpphpp25-11-1031 Plan of care note* Care Plan - [...] monitored and maintained or improved Outcome: Progressing [facility]07-08-2024 Telephone encounter Note* Telephone Encounter - Ana Bernal MA - 08/24/2023 11:13 AM EDT Faxed letter to dr hunt office , fax#: [phone]. [facility] HealthcareXqudlo17-07-3710 Miscellaneous Notes* Telephone Encounter - Ana Bernal MA - 08/24/2023 11:13 AM EDT Faxed letter to dr hunt office , fax#: [phone]. * Telephone Encounter - Juliette Vásquez MD - 08/24/2023 10:48 AM EDT Ana , can you please attach the following on [facility] letter head and fax to the following number [phone] . Thanks Dear Dr Bhakta , I am writing about mutual patient Sheyla Santo 1945 who was seen by me at [facility] when she was hospitalized for partial [...] attached our phone number for yourreference. Thanks Juliette Vásquez MD [facility] Endocrinology Phone number: [phone] documented in this [facility]07-08-2024 Note* Care Coordination - Ania Box RN [...] Ania Box RN 08/24/2023 6:43 AM 08/24/2023 Татьяна Mckay APRN - DANNI 08/21/2023 9:15 PM 08/24/2023 Татьяна Mckay APRN - DANNI 08/21/2023 8:35 PM Length of Stay (Days): 3 GMLOS: 2.3 [facility] HealthcareArzotc38-40-1869 Note* Care Coordination - Ania Box RN [...] Ania Box RN 08/24/2023 6:43 AM 08/24/2023 Татьяна Mckay APRN - DANNI 08/21/2023 9:15 PM 08/24/2023 Татьяна Mckay APRN - DANNI 08/21/2023 8:35 PM Length of Stay (Days): 3 GMLOS: 2.3 [facility] HealthcareQjldrj20-64-2690 NoteCare Management Progress Note Pt remains on [...] 8:35 PM Length of [facility] (Days): 3 [facility] Note* Telephone Encounter - Juliette Vásquez MD - 08/24/2023 10:48 AM EDT Ana , can you please attach the following on [facility] letter head and fax to the following number [phone] . Thanks Dear Dr Bhakta , I am writing about mutual patient Sheyla Santo 1945 who was seen by me at [facility] when she was hospitalized for partial [...] attached our phone number for yourreference. Thanks Juliette Vásquez MD [facility] Endocrinology Phone number: [phone] [facility] HealthcareQoiizh03-18-8825 History of Present illness Narrative* Juliette Vásquez MD - 08/24/2023 10:40 AM EDT Department of Internal Medicine Division of Endocrinology, Diabetes, & Metabolism Endocrinology Note Patient Name: Sheyla Ramirez : 1945 AGE: 77 y.o. Room[facility]Bed: [facility] A Admission Date: 08/21/2023 Visit Date: 08/24/2023 Reason for Endocrine Consult: dm-managed on ozempic , due to have hiatal hernia surgery soon. Admitted with GI dysmotility Provider/Team Requesting Consult: surgery PCP: LENA THORNE Outpt Programmable Logic Controller Assembler: Yes Dr Sylvester Bhakta ASSESSMENT: Type 2 diabetes with hyperglycemia without oysterman insulin use Concern for partial large bowel [...] friend would like to follow up with [facility] endocrine until her hernia surgery later this month. She follows with endocrine Dr Bhakta in [place] but will not be able to see her until next month and would like to have endocrine on board in [facility] in the meantime. Phone number for endocrine [...] found for: CHOLHDLRATIO No results found for: [id number] Lab Results Component Value Date TSH 1.130 08/23/2023 Radiology reportsas per the Radiologist Radiology: POCT glucose meter Result Date: 08/22/2023 Performed by: [facility], [address] [place] [address] CLIA ID: [id number] POCT glucose meter Result Date: 08/22/2023 Performed by: [facility], [address] [place] [address] CLIA ID: [id number] US abdomen complete Result Date: 08/22/2023 Patient Name: [facility]YLA RAMIREZ [facility] 1945 [id number] Exam Date/Time: 08/22/2023 13:08 Procedure: US ABDOMEN [...] glucose meter Result Date: 08/22/2023 Performed by: [facility], [address] [place] [address] CLIA ID: [id number] POCT glucose meter Result Date: 08/22/2023 Performed by: [facility] [place] [facility], [address] [place] [address] CLIA ID: [id number] POCT glucose meter Result Date: 08/22/2023 Performed by: [facility] [place] [facility], [address] [place] [address] CLIA ID: [id number] POCT glucose meter Result Date: 08/22/2023 Performed by: [facility] [place] [facility], [address] [place] [address] CLIA ID: [id number] POCT glucose meter Result Date: 08/22/2023 Performed by: [facility], [address] [place] [address] CLIA ID: [id number] POCT glucose meter Result Date: 08/21/2023 Performed by: [facility], [address] [place] [address] CLIA ID: [id number] CT abdomen pelvis w contrast Result Date: 08/21/2023 Patient Name: SHEYLA RAMIREZ : 1945 [facility]#: [id number] Exam Date/Time: 08/21/2023 16:58 Procedure: CT ABDOMEN [...] 08/22/2023 Performed by Val Chan MD at [facility] ENDOSCOPY SIGMOID COLECTOMY (HISTORICAL) 2010 Laparoscopic sigmoid [...] on the date of this note. * Chico Zaragoza MD - 08/24/2023 7:56 AM EDT Hospitalist Progress Note 08/24/2023 7:56 AM [phone]: Please page me for patient care issues. [phone]: Please page [facility] night Hospitalist for any issues. Subjective: Admit [...] history of colonic polyps Adult diet Regular @KMGE5ZIBLEX@ Medications: atorvastatin, 10 mg, Oral, Daily bisacodyl, 10 mg, Rectal, Daily brimonidine, 1 drop, Both Eyes, BID insulin lispro, 0-6 Units, SubCUTAneous, TID WC lansoprazole, 30 mg, Oral, qAM AC latanoprost, 1 drop, Both Eyes, Nightly losartan, 25 mg, Oral, Daily polyethylene glycol (PEG) 3350, 17 g, Oral, Daily LABS: CBC: Recent Labs 08/21/23 1403 08/22/230 08/23/23 0039 WBC 5.7 5.9 5.9 RBC 4.96 4.25 4.18 HGB 14.1 11.8 11.9 HCT 43.2 37.5 37.1 MCV 87.1 88.2 88.8 RDW 13.2 13.1 13.2 PLT 190 165 158 BMP: Recent Labs 08/21/23 14008/22/2343908/23/23 003 NA 138 137 138 K 4.2 3.7 4.0 CL 104 106 108* CO2 26 22 23 BUN 14 10 8 CREATININE 0.66 0.63 0.58 GLUCOSE 115* 175* 96 CALCIUM 9.6 8.7 9.2 ANIONGAP 9 10 8 LIVER PROFILE: Recent Labs 08/21/23 1403 08/23/23 003 AST 31 23 ALT 26 20 BILITOT [...] Extended Emergency Contact Information Primary Emergency Contact: domingomellissajulian Mobile Relation: Brother Secondary Emergency Contact: ania Santo Mobile Relation: Sister Advance Directive: Full Code Discharge planning: DC home later today or in a.m., pending BM prior to discharge NOTE: This report was transcribed using voice recognition software. Every effort was made to ensureaccuracy; however, inadvertent computerized certified green building engineer errors may be present. Chico Zaragoza MD Division of Hospitalist Medicine Acute Care [facility] PAGER: Epic chat * Kandy Smith MD [...] - ALS will follow - update 08/23 @1949 : patient is ok for discharge from General surgery perspective. General surgery will sign off, please do not hesitate to reach out with further questions or concerns. Discussed with Dr Kruse. WDW Dr Aixa Smith MD PGY-3, General Surgery Pager# [phone] 08/24/2023 6:56 AM Associated attestation - Julian Kruse MD - 08/24/2023 4:53 PM EDT Images from the original note were not included. [facility] - Surgery [facility] Physicians Surgery Patient Name: Sheyla Ramirez Date: 08/24/23 Feels well, no nausea or vomiting. Tolerating regular diet. CT reviewed. Sigmoidoscopy reviewed, noanastomotic issues. Passing flatus. BP 144/78 (BP Location: Left arm, Patient Position: Lying) Pulse 79 Temp 36.7 C (98.1 F) (Temporal) Resp 16 Ht 5' 7 (1.702 m) Wt 150 lb (68 kg) SpO2 99% BMI 23.49 kg/m CBC: Recent Labs 08/22/23 0440 08/23/23 0039 WBC 5.9 5.9 HGB 11.8 11.9 HCT 37.5 37.1 PLT 165 158 BMP: Recent Labs 08/22/23 0440 08/23/23 0039 NA 137 138 K 3.7 4.0 CL [...] in the evaluation and management of Sheyla Ramirezin the development of a treatment plan for [...] the Dietitian. A1C 8.4; Uncontrolled DM. * Chico Zaragoza MD - 08/23/2023 8:09 AM EDT Hospitalist Progress Note 08/23/2023 8:09 AM [phone]: Please page me for patient care issues. [phone]: Please page [facility] night Hospitalist for any issues. Subjective: Admit Date: 08/21/2023 PCP: LENA THORNE Room#: [id number] A Interval History: Patient seen and examined [...] colonic polyps Adult diet Easy to Chew @[id number]@ Medications: atorvastatin, 10 mg, Oral, Daily brimonidine, [...] 165 158 BMP: Recent Labs 08/21/23 1403 08/22/230 08/23/23 0039 NA 138 137 138 K [...] Mobile Relation: Brother Secondary Emergency Contact: ania Snato Mobile Relation: Sister Advance Directive: Full Code Discharge planning: Anticipated discharge in 1 to 2 days/pending improvement NOTE: This report was transcribed using voice recognition software. Every effort was made to ensureaccuracy; however, inadvertent computerized certified green building engineer errors may be present. Chico Zaragoza MD Division of Hospitalist Medicine [facility] PAGER: Recipharm chat * Lai Cee, DO - 08/23/2023 7:38 AM EDT Images [...] Jaye Bergman MD PGY5, General Surgery Pager #[phone] ATTESTATION The patient was seen and examined. [...] as PCP - General (Internal Medicine) Chandana Bailey (Gastroenterology) * Chico Zaragoza MD - 08/22/2023 4:45 PM EDT Hospitalist Progress Note 08/22/2023 4:45 PM [phone]: Please page me for patient care issues. [phone]: Please page [facility] night Hospitalist for any issues. Subjective: Admit [...] of colonic polyps Adult diet Full liquid @SZOZ1UZZNIN@ Medications: lactated Ringer's, 75 mL/hr, Last Rate: [...] was made to ensureaccuracy; however, inadvertent computerized certified green building engineer errors may be present. Chico Zaragoza MD Division of Hospitalist Medicine Acute Care [employer] PAGER: Epic chat * Val Chan MD [...] Jaye Bergman MD PGY5, General Surgery Pager #[phone] ATTESTATION The patient was seen and examined. [...] chart review was performed. documented in this [facility]07-08-2024 NoteHospitalist Progress Note 08/24/2023 7:56 AM [phone]: Please page me for patient care issues. [phone]: Please page [facility] Hospitalist for any issues. Subjective: Admit Date: 08/21/2023 PCP: LENA THORNE Room#: [id number] A Interval History: Patient seen and examined [...] history of colonic polyps Adult diet Regular @JJIL1THTFLY@ Medications: atorvastatin, 10 mg, Oral, Daily bisacodyl, 10 mg, Rectal, Daily brimonidine, 1 drop, Both Eyes, BID insulin lispro, 0-6 Units, SubCUTAneous, TID WC lansoprazole, 30 mg, Oral, qAM AC latanoprost, 1 drop, Both Eyes, Nightly losartan, 25 mg, Oral, Daily polyethylene glycol (PEG) 3350, 17 g, Oral, Daily LABS: CBC: Recent Labs 08/21/23140208/22/2343908/23/23 0039 WBC 5.7 5.9 5.9 RBC 4.96 4.25 4.18 HGB 14.1 11.8 11.9 HCT 43.2 37.5 37.1 MCV 87.1 88.2 88.8 RDW 13.2 13.1 13.2 PLT 190 165 158 BMP: Recent Labs 08/21/23 14008/22/2343908/23/23 003 NA 138 137 138 K 4.2 [...] Extended Emergency Contact Information Primary Emergency Contact: domingomellissajulian Mobile Relation: Brother Secondary Emergency Contact: ania Santo Mobile Relation: Sister Advance Directive: Full Code Discharge planning: DC home later today or in a.m., pending BM prior to discharge NOTE: This report was transcribed using v (more content not included)...[facility]07-08-2024 Plan of care note* Care Plan [...] monitored and maintained or improved Outcome: Progressing [facility]Zutbmr36-73-1716 Consult note* Juliette Vásquez MD - 08/23/2023 11:17 AM EDTAssociated Order(s): IP CONSULT TO ENDOCRINOLOGY Department of Internal Medicine Division of Endocrinology, Diabetes, & Metabolism Endocrinology Note Patient Name: Sheyla Ramirez : 1945 AGE: 77 y.o. Room/Bed: [facility]/[address] Admission Date: 08/21/2023 Visit Date: 08/23/2023 Reason for Endocrine Consult: dm-managed on ozempic , due to have hiatal hernia surgery soon. Admitted with GI dysmotility Provider/Team Requesting Consult: surgery PCP: LENA [place] Programmable Logic Controller Assembler: Yes Dr Sylvester Bhakta ASSESSMENT: Type 2 diabetes with hyperglycemia without alf insulin use Concern for partial large bowel [...] found for: CHOLHDLRATIO No results found for: [id number] No results found for: TSH, P9XTPKW, O4PGLSM, THYROIDAB Radiology reportsas per the Radiologist Radiology: POCT glucose meter Result Date: 08/22/2023 Performed by: [facility], [address] [place] [address] CLIA ID: [id number] POCT glucose meter Result Date: 08/22/2023 Performed by: [facility], [address] [place] [address] CLIA ID: [id number] US abdomen complete Result Date: 08/22/2023 Patient [...] glucose meter Result Date: 08/22/2023 Performed by: [facility], [address] [place] [address] CLIA ID: [id number] POCT glucose meter Result Date: 08/22/2023 Performed by: [facility], [address] [place] [address] CLIA ID: [id number] POCT glucose meter Result Date: 08/22/2023 Performed by: [facility], [address] [place] [address] CLIA ID: [id number] POCT glucose meter Result Date: 08/22/2023 Performed by: [facility], [address] [place] [address] CLIA ID: [id number] POCT glucose meter Result Date: 08/22/2023 Performed by: [facility], [address] [place] [address] CLIA ID: [id number] POCT glucose meter Result Date: 08/21/2023 Performed by: [facility], [address] [place] [address] CLIA ID: [id number] CT abdomen pelvis w contrast Result Date: 08/21/2023 Patient Name: SHEYLA RAMIREZ [facility] 1945 [id number] Exam Date/Time: 08/21/2023 16:58 Procedure: CT ABDOMEN [...] 08/22/2023 Performed by Val Chan MD at [facility] ENDOSCOPY SIGMOID COLECTOMY (HISTORICAL) 2010 Laparoscopic sigmoid [...] state/prognosis on the date of this note. [facility]Agvgen35-89-7287 Consult note* Juliette Vásquez MD - 08/23/2023 11:17 AM EDTAssociated Order(s): IP CONSULT TO ENDOCRINOLOGY Department of Internal Medicine Division of Endocrinology, Diabetes, & Metabolism Endocrinology Note Patient Name: Sheyla Ramirez : 1945 AGE: 77 y.o. Room/Bed: [facility] A Admission Date: 08/21/2023 Visit Date: 08/23/2023 Reason for Endocrine Consult: dm-managed on ozempic , due to have hiatal hernia surgery soon. Admitted with GI dysmotility Provider/Team Requesting Consult: surgery PCP: LENA THORNE Outpt Programmable Logic Controller Assembler: Yes Dr Sylvester Bhakta ASSESSMENT: Type 2 diabetes with hyperglycemia without oysterman insulin use Concern for partial large bowel [...] found for: CHOLHDLRATIO No results found for: [id number] No results found for: TSH, N6ZTFVN, D7UCUHU, THYROIDAB Radiology reportsas per the Radiologist Radiology: POCT glucose meter Result Date: 08/22/2023 [facility]formed by: [facility], [address] [place] [address] CLIA ID: [id number] POCT glucose meter Result Date: 08/22/2023 Performed by: [facility], [address] [place] [address] CLIA ID: [id number] US abdomen complete Result Date: 08/22/2023 Patient [...] glucose meter Result Date: 08/22/2023 Performed by: [facility], [address] [place] [address] CLIA ID: [id number] POCT glucose meter Result Date: 08/22/2023 Performed by: [facility] [place] [facility], [address] [place] [address], [place] [address] CLIA ID: [id number] POCT glucose meter Result Date: 08/22/2023 Performed by: [facility] [place] [facility], [address] [place] [address], [place] [address] CLIA ID: [id number] POCT glucose meter Result Date: 08/22/2023 Performed by: [facility] [place] [facility], [address] [place] [address], [place] [address] CLIA ID: [id number] POCT glucose meter Result Date: 08/22/2023 Performed by: [facility] [place] [facility], [address] [place] [address], [facility] [address] CLIA ID: [id number] POCT glucose meter Result Date: 08/21/2023 Performed by: [facility] [place] [facility], [address] [place] [address], [facility] [address] CLIA ID: [id number] CT abdomen pelvis w contrast Result Date: [...] 08/22/2023 Performed by Val Chan MD at [facility] ENDOSCOPY SIGMOID COLECTOMY (HISTORICAL) 2010 Laparoscopic sigmoid [...] the date of this note. * Lai Cee, - 08/21/2023 4:10 PM EDT Images from [...] diverticulitis, (additional history below) who presents to [facility] ED with a chief complaint of [...] 08/22/2023 Performed by Val Chan MD at [facility] ENDOSCOPY SIGMOID COLECTOMY (HISTORICAL) 2010 Laparoscopic sigmoid [...] Jaye Bergman MD PGY5, General Surgery Pager #[phone] STATION The patient was seen and examined. [...] electronic health record on the day of encounter. Patient Care Team: Lena Thorne as PCP - General (Internal Medicine) Chandana Bailey (Gastroenterology) documented in this [facility]07-07-2024 NoteHospitalist Progress Note 08/23/2023 8:09 AM [phone]: Please page me for patient care issues. [phone]: Please page [facility] Hospitalist for any issues. Subjective: Admit Date: 08/21/2023 PCP: LENA THORNE Room#: [id number] A Interval History: Patient seen and examined [...] colonic polyps Adult diet Easy to Chew @RXCZ2UPKQTY@ Medications: atorvastatin, 10 mg, Oral, Daily brimonidine, [...] using voice recognition software. (more content not included)...[facility] [id number] NoteDepartment of General Surgery Surg 4 Service [...] Jaye Bergman MD PGY5, General Surgery Pager #[phone] ATTESTATION The patient was seen and examined. I have reviewed the patients presentation, histories, imaging and serology studies. I agree with the above assessment and plan. Ab: Soft, Non-distended, non-tender Patient seen and examined this morning. Pain is well-controlled (more content not included)...[facility]07-07-2024 Plan of care note* Care Plan - [...] monitored and maintained or improved Outcome: Progressing [facility] HealthcareVicfai45-14-2246 Note* Care Coordination - Lizbeth Valdez RN - 08/22/2023 5:50 PM EDT Care Managment Initial Assessment Date: 08/22/2023 Patient Name: Sheyla Ramirez : 1945 Patient Information Source of Information: Patient Cognition/Language: WFL - Within Functional Limits Permission given to speak with patient footwear sales representative/caregiver as indicated: No Confirmation of Payer [...] Living Prescription Coverage: Yes Pharmacy Used: [facility] [place] Medication Management: Independent Transportation/Shopping: Independent Transportation Mode: [...] and agrees with plan. Lizbeth Valdez RN [facility]Zmxwls97-38-2328 Note* Care Coordination - Lizbeth Valdez RN - 08/22/2023 5:50 PM EDT Care Managment Initial Assessment Date: 08/22/2023 Patient Name: Sheyla Ramirez : 1945 Patient Information Source of Information: Patient Cognition/Language: WFL - Within Functional Limits Permission given to speak with patient footwear sales representative/caregiver as indicated: No Confirmation of Payer with patient/family: Yes Payer Name: Medicare Woodruff: No Confirmation of Primary Care Physician: Confirmed [...] Living Prescription Coverage: Yes Pharmacy Used: [facility] Medication Management: Independent Transportation/Shopping: Independent Transportation Mode: [...] and agrees with plan. Lizbeth Valdez RN [facility] HealthcareQfzvun23-65-4858 NoteHospitalist Progress Note 08/22/2023 4:45 PM [phone]: Please page me for patient care issues. [phone]: Please page [facility] night Hospitalist for any issues. Subjective: Admit [...] of colonic polyps Adult diet Full liquid @[id number]@ Medications: lactated Ringer's, 75 mL/hr, Last Rate: [...] # Method of m (more content not included)...[facility]07-06[facility] Hospital Discharge instructions* Discharge Instr - Activity* Chico Zaragoza MD - 08/22/2023 3:18 PM EDT As tolerated * Discharge Instr - Diet* Chico Zaragoza MD - 08/22/2023 3:18 PM EDT ADA 1800 diet documented in this [facility]07-06-2024 Plan of care note* Care Plan [...] monitored and maintained or improved Outcome: Progressing [facility] HealthcareRqjgsb17-79-9191 NoteDepartment of General Surgery Surg 4 Service [...] Jaye Bergman MD PGY5, General Surgery Pager #[phone] ATTESTATION The patient was seen and examined. I have reviewed the patients presentation, histories, imaging and serology studies. I agree with the above assessment and plan. Please refer to consult note (more content not included)...[facility]07-06-2024 Note* Perioperative Nursing Note - Garima Powell RN - 08/22/2023 8:35 AM EDT POST ENDOSCOPY PROCEDURE TRANSFER REPORT Physician: Rocio Procedure completed: Flexible sigmoidoscopy Specimens obtained: none Medications administered: propofol 130mg Findings: see MD note Complications: none Report called to H5 RN Please call the Main Endoscopy Dept at [phone] for questions. [facility] [id number] Note* Perioperative Nursing Note - Garima Powell RN - 08/22/2023 8:35 AM EDT POST ENDOSCOPY PROCEDURE TRANSFER REPORT Physician: Rocio Procedure completed: Flexible sigmoidoscopy Specimens obtained: none Medications administered: propofol 130mg Findings: see MD note Complications: none Report called to H5 RN Please call the Main Endoscopy Dept at [phone] for questions. [facility] [id number] NotePOST ENDOSCOPY PROCEDURE TRANSFER REPORT Physician: Rocio Procedure completed: Flexible sigmoidoscopy Specimens obtained: none Medications administered: propofol 130mg Findings: see MD note Complications: none Report called to H5 RN Please call the Main Endoscopy Dept at [phone] for questions.[facility]07-06-2024 NotePatient: Sheyla Ramirez Procedure Summary Date: 08/22/23 Room / Location: [facility] 8 / [facility] Gastroenterology Anesthesia Start: 815 Anesthesia Stop: 831 [...] discharged once all PACU criteria has been met.[facility]07-06-2024 NotePatient: Sheyla Ramirez Procedure Summary Date: 08/22/23 Room / [facility]: [facility] ENDO 8 / [facility] Gastroenterology Anesthesia Start: 0816 Anesthesia Stop: 831 Procedure: SIGMOIDOSCOPY FLEXIBLE WITH [...] Allowed opportunity for questions and acknowledgement of understanding.[facility]07-06-2024 NotePatient: Sheyla Volmellissa Procedure Information Date/Time: 08/22/23 0800 Procedure: SIGMOIDOSCOPY [...] any previous visit. Equipment Requests: Additional Equipment Requests[facility] Note* Op Note - Val Chan MD - 08/22/2023 7:13 AM EDT Endoscopy Center- [facility] Patient Name: Sheyla Ramirez Procedure Date: 08/22/2023 7:13 AM Gender: Female Date of : 1945 Age: 77 Admit Type: Inpatient Note Status: Finalized Endoscopist: Val Chan MD, [id number] Procedure: Flexible Sigmoidoscopy Indications: LLQ abd pain, [...] immediate complications. Procedure Code(s): --- Professional --- 09006, Sigmoidoscopy, flexible; diagnostic, including collection of specimen(s) by brushing or washing, when performed (separate procedure) --- Technical --- 74479, Sigmoidoscopy, flexible; diagnostic, including collection of specimen(s) by brushing or washing, when performed (separate procedure) CPT copyright 2021 [employer]. All rights reserved. The codes documented in this report are preliminary and upon chemistry manager review may be revised to meet current compliance requirements. Attending Participation: I personally performed the entire procedure. Val Chan MD 08/22/2023 8:33:22 AM This report has been signed electronically. Number of Addenda: 0 Note Initiated On: 08/22/2023 7:13 AM [facility] [id number] Note* Op Note - Val Chan MD - 08/22/2023 7:13 AM EDT [facility] Patient Name: Sheyla Ramirez Procedure Date: 08/22/2023 7:13 AM Gender: Female Date of : 1945 Age: 77 Admit Type: Inpatient Note Status: Finalized Endoscopist: Val Chan MD, [id number] Procedure: Flexible Sigmoidoscopy Indications: LLQ abd pain, [...] immediate complications. Procedure Code(s): --- Professional --- 28027, Sigmoidoscopy, flexible; diagnostic, including collection of specimen(s) by brushing or washing, when performed (separate procedure) --- Technical --- 26263, Sigmoidoscopy, flexible; diagnostic, including collection of specimen(s) by brushing or washing, when performed (separate procedure) CPT copyright 2021 [employer]. All rights reserved. The codes documented in this report are preliminary and upon chemistry manager review may be revised to meet current compliance requirements. Attending Participation: I personally performed the entire procedure. Val Chan MD 08/22/2023 8:33:22 AM This report has been signed electronically. Number of Addenda: 0 Note Initiated On: 08/22/2023 7:13 AM [facility]07-06-2024 [facility] Patient Name: Sheyla Ramirez Procedure Date: 08/22/2023 7:13 AM Gender: Female Date of : 1945 Age: 77 Admit Type: Inpatient Note Status: Finalized Endoscopist: Val Chan MD, [id number] Procedure: Flexible Sigmoidoscopy Indications: LLQ abd pain, [...] immediate complications. Procedure Code(s): --- Professional --- 37425, Sigmoidoscopy, flexible; diagnostic, including collection of specimen(s) by brushing or washing, when performed (separate procedure) --- Technical --- 89570, Sigmoidoscopy, flexible; diagnostic, including collection of specimen(s) by brushing or washing, when performed (separate procedure) CPT copyright 2021 [employer]. All rights reserved. The codes documented in this report are preliminary and upon chemistry manager review may be revised to meet current compliance requirements. Attending Participation: I personally performed the entire procedure. Val Chan MD 08/22/2023 8:33:22 AM This report has been signed electronically. Number of Addenda: 0 Note Initiated On: 08/22/2023 7:13 [facility] [id number] Plan of care note* Care Plan - [...] monitored and maintained or improved Outcome: Progressing [facility] [id number] History and physical note* Arsalan Swenson MD [...] no m/r/g Abdomen: soft, diffuse tenderness, BS+ APARTMENT COMMUNITY MANAGER: AAOx3, no focal deficit DATA: CBC: Recent [...] - DO NOT do CPR, intubation] [_] [DNR-AUDIO VISUAL MANAGER - Comfort care only] [_] DNR form [...] Arsalan Swenson MD Division of Hospitalist Medicine [facility] [employer] Phone: 1(830) 688-924307-05-2024 NoteAttending History and Physical Admit Date: 08/21/2023 [...] 23.49 kg/m? BMI Classific (more content not included)...[facility]07-05-2024 History and physical note* Arsalan Swenson [...] no m/r/g Abdomen: soft, diffuse tenderness, BS+ APARTMENT COMMUNITY MANAGER: AAOx3, no focal deficit DATA: CBC: Recent [...] - DO NOT do CPR, intubation] [_] [DNR-AUDIO VISUAL MANAGER - Comfort care only] [_] DNR form [...] Arsalan Swenson MD Division of Hospitalist Medicine [facility] documented in this [facility]07-05-2024 Consult note* Lai Cee DO - [...] diverticulitis, (additional history below) who presents to [facility] ED with a chief complaint of [...] 08/22/2023 Performed by Val Chan MD at [facility] ENDOSCOPY SIGMOID COLECTOMY (HISTORICAL) 2010 Laparoscopic sigmoid [...] Jaye Bergman MD PGY5, General Surgery Pager #[phone] STATION The patient was seen and examined. [...] Thorne as PCP - (Internal Medicine) Chandana Bailey (Gastroenterology) [facility] HealthcarePgukan05-02-1942 Emergency department Note* Jayjay Fortune MD - 08/21/2023 11:53 AM EDT Emergency Department Encounter [facility] EMERGENCY DEPT Patient: Sheyla Ramirez : 1945 [...] for clarification) Jayjay Fortune MD [employer] Jayjay Fortune MD 08/21/23 1838 * Татьяна Price PA-C - 08/21/2023 11:53 AM EDT Emergency Department Encounter [facility] Emergency Department Patient: Sheyla Ramirez : 1945 [...] 08/22/2023 Performed by Val Chan MD at [facility] ENDOSCOPY SIGMOID COLECTOMY (HISTORICAL) 2010 Laparoscopic sigmoid [...] Abnormal Glucose 64 (*) Narrative: Performed by: [facility], [address] [place] [address] CLIA ID: [id number] POCT GLUCOSE METER UNSOLICITED RESULTS - Abnormal Glucose 157 (*) Narrative: Performed by: [facility], [address] [place] [address] CLIA ID: [id number] HEPATIC FUNCTION PANEL - Normal BILIRUBIN, TOTAL [...] - Normal Glucose 72 Narrative: Performed by: [facility], [address] [place] [address] CLIA ID: [id number] POCT GLUCOSE METER UNSOLICITED RESULTS - Normal Glucose 91 Narrative: Performed by: [facility], [address] [place] [address] CLIA ID: [id number] BASIC METABOLIC PANEL WITH MG REFLEX Narrative: The following orders were created for panel order Basic Metabolic Panel w/ Mg Reflex. Procedure Abnormality Status --------- ------ Basic metabolic panel[[id number]] Abnormal Final result Please view results for [...] Department Physician in the absence of a gravure printing machinist. Please see Epiphany for interpretation of EKG. [...] signed out to my colleague Татьяна Mckay SLAG MOTOR OPERATOR, please see her note for patient's final [...] 15 g ( Oral MAR Hold 08/22/23 0730) dextrose 50 % solution 12.5 g ( IntraVENous MAR Hold 08/22/23 0730) glucagon (human recombinant) injection 1 mg ( IntraMUSCular MAR Hold 08/22/23 0730) dextrose 5 % infusion ( IntraVENous MAR [...] PA-C [employer] Татьяна Price PA-C 08/22/2314 * SANTI Condon CNP - 08/21/2023 11:53 AM EDT Emergency Department Encounter Location: [facility] EMERGENCY DEPT Patient: Sheyla Ramirez : 1945 [...] time. I reached out to [facility] hospitalist service and spoke with Dr. Swenson who agreed to admit patient to his service. Patient will be admitted at this time. Medications lactated Ringer's infusion (has no administration in time range) diatrizoate meglumine-sodium (Gastrografin) 66-10 % solution 30 mL (30 mL Oral Given 08/21/23 2184) ondansetron (Zofran) injection 4 mg (4 mg IntraVENous Given 08/21/23 7284) iopamidol (Isovue-370) 76 % injection 75 mL (75 mL IntraVENous Given 08/21/23 8058) Final Impression 1. Generalized abdominal pain 2. Nausea and vomiting, unspecified vomiting type DISPOSITION Admit 08/21/2023 08:35:24 PM (Please note that portions of this note may have been completed with a voice recognition program. Efforts were made to edit the dictations but occasionally words are mis-transcribed.) SANTI Hope CNP [employer] SANTI Condon CNP 08/21/232036 documented in this [facility]07-05-2024 Physician Emergency department Note* Jayjay Fortune MD - 08/21/2023 11:53 AM EDT Emergency Department Encounter [facility] EMERGENCY DEPT Patient: Sheyla Ramirez : 1945 [...] dictating provider for clarification) Jayjay Fortune MD [facility] Jayjay Fortune MD 08/21/23 8733 [facility] [id number] Physician Emergency department Note* Татьяна Price PA-C - 08/21/2023 11:53 AM EDT Emergency Department Encounter [facility] Emergency Department Patient: Sheyla Ramirez : 1945 [...] 08/22/2023 Performed by Val Chan MD at [facility] ENDOSCOPY SIGMOID COLECTOMY (HISTORICAL) 2010 Laparoscopic sigmoid [...] Abnormal Glucose 64 (*) Narrative: Performed by: [facility], [address] [place] [address] CLIA ID: [id number] POCT GLUCOSE METER UNSOLICITED RESULTS - Abnormal Glucose 157 (*) Narrative: Performed by: [facility], [address] [place] [address] CLIA ID: [id number] HEPATIC FUNCTION PANEL - Normal BILIRUBIN, TOTAL [...] - Normal Glucose 72 Narrative: Performed by: [facility] [employer] [facility], [address] [place] [address] CLIA ID: [id number] POCT GLUCOSE METER UNSOLICITED RESULTS - Normal Glucose 91 Narrative: Performed by: [facility], [address] [place] [address] CLIA ID: [id number] BASIC METABOLIC PANEL WITH MG REFLEX Narrative: The following orders were created for panel order Basic Metabolic Panel w/ Mg Reflex. Procedure Abnormality Status --------- ------ Basic metabolic panel[[id number]] Abnormal Final result Please view results for [...] Department Physician in the absence of a gravure printing machinist. Please see Epiphany for interpretation of EKG. [...] signed out to my colleague Татьяна Mckay SLAG MOTOR OPERATOR, please see her note for patient's final [...] 100 mg ( Oral Dose Auto Held 08/29/230) latanoprost (Xalatan) 0.005 % ophthalmic solution 1 drop ( Both Eyes Dose Auto Held 08/29/23 2100) losartan (Cozaar) tablet 25 mg ( Oral Dose Auto Held 08/26/23 0900) acetaminophen (Tylenol) tablet 650 mg ( Oral MAR Hold 08/22/2330) Or acetaminophen (Tylenol) suppository 650 mg ( Rectal MAR Hold 08/22/23729) ondansetron ODT (Zofran-ODT) disintegrating tablet 4 mg ( Oral MAR Hold 08/22/2330) Or ondansetron (Zofran) injection 4 mg ( IntraVENous MAR Hold 08/22/2330) polyethylene glycol (PEG) 3350 (Miralax) packet 17 g ( Oral MAR Hold 08/22/23729) insulin regular (HumuLIN R,NovoLIN R) injection 0-6 Units ( SubCUTAneous Dose Auto Held 08/29/23 2230) glucose oral gel 15 g ( Oral MAR Hold 08/22/23729) dextrose 50 % solution 12.5 g ( IntraVENous MAR Hold 08/22/23729) glucagon (human recombinant) injection 1 mg ( IntraMUSCular MAR Hold 7/6/24 0730) dextrose 5 % infusion ( IntraVENous MAR [...] Medication List Татьяна Price PA-C [facility] [employer] Татьяна Price PA-C 08/22/2314 [employer] Phone: 1(214) 822-747707-05-2024 Physician Emergency department Note* SANTI Condon CNP - 08/21/2023 11:53 AM EDT Emergency Department Encounter Location: [facility] EMERGENCY DEPT Patient: Sheyla Ramirez : 1945 [...] time. I reached out to [facility] hospitalist service and spoke with Dr. Swenson who agreed to admit patient to his service. Patient will be admitted at this time. Medications lactated Ringer's infusion (has no administration in time range) diatrizoate meglumine-sodium (Gastrografin) 66-10 % solution 30 mL (30 mL Oral Given 08/21/23 8364) ondansetron (Zofran) injection 4 mg (4 mg IntraVENous Given 08/21/23 7514) iopamidol (Isovue-370) 76 % injection 75 mL [...] are mis-transcribed.) SANTI Hope CNP [employer] SANTI Condon CNP 08/21/232036 [facility] [id number] Emergency department Note* Kandy Perea RN - [...] all belongings. Kandy Perea RN 08/20/23 1300 [facility] HealthcareZduksv19-05-1488 NoteDischarge teaching completed. Pt verbalizes understanding of medications, times to return to the ED, and follow up care discussed. Pt is stable and ambulatory upon discharge. Pt is a/o x 3; breathing is even and unlabored on room air. No distress noted. Pt leaves ED with all belongings. Kandy Perea RN 08/20/[address] [place], [place] 3687707-04-2024 Emergency department Note* Kandy Perea RN - [...] having EGD done by Dr. Kruse on 08/03-. States that she is a retired family [...] Rate Resp BP 08/20/23 0627 08/20/23 0627 08/20/2327 08/20/23 0627 36.5 C (97.7 F) 79 16 (!) 140/70 SpO2 Temp Source Heart Rate Source Patient Position 08/20/2362608/20/2327 08/20/23 0627 08/20/23 0650 100 % Temporal [...] Culture. Procedure Abnormality Status --------- ------ Complete Urinalysis[[id number]] Abnormal Final result Please view results for [...] 1,000 mL (0 mL IntraVENous Stopped 08/20/23 08) ondansetron (Zofran) injection 4 mg (4 mg [...] continued abdominal exam, [facility], or to go home. Patient like to [...] PM PATIENT REFERRED TO: Julian Kruse MD [address] [place] [address] Call Call your surgeon in 2 days [...] Provider Hoa Calhoun PA-C 08/20/23 1437 * Don Bell MD - 08/20/2023 6:20 AM EDT Emergency Department Encounter [facility] EMERGENCY DEPT Patient: Sheyla Ramirez : 1945 Date of Evaluation: 08/20/2023 ED Supervising Physician: Don Bell MD I personally evaluated Sheyla Ramirez [...] freeto contact the dictating provider for clarification.) Don Bell MD Acute Care [facility] Don Bell MD 08/20/23 0924 documented in this [facility]07-04-2024 Hospital Discharge instructions* Discharge Instructions* Hoa Calhoun PA-C - 08/20/2023 12:15 PM EDT [...] prescribed and follow-upas recommended. documented in this [facility]07-04-2024 Emergency department Note* Kimberley Carson RN [...] within reach. Kimberley Carson RN 08/20/23 0652 [facility] [id number] Physician Emergency department Note* Hoa Calhoun PA-C [...] Culture. Procedure Abnormality Status --------- ------ Complete Urinalysis[[id number]] Abnormal Final result Please view results for [...] continued abdominal exam, [facility], or to go home. Patient like to [...] PM PATIENT REFERRED TO: Julian Kruse MD [address] [place] [address] [address] [phone] Call Call your surgeon in 2 days [...] Medicine Provider Hoa Calhoun PA-C 08/20/23 1437 [facility] [id number] Physician Emergency department Note* Don Bell MD - 08/20/2023 6:20 AM EDT Emergency Department Encounter [facility] EMERGENCY DEPT Patient: Sheyla Ramirez : 1945 Date of Evaluation: 08/20/2023 ED Supervising Physician: Don Bell MD I personally evaluated Sheyla Ramirez [...] freeto contact the dictating provider for clarification.) Don Bell MD Acute Care [facility] Don Bell MD 08/20/23923 [facility] [employer] Phone: [phone] Note* Addendum Note - SANTI Terrazas CRNA - 08/04/2023 1:04 PM EDT Addendum created 08/04/23 130 by SANTI Terrazas CRNA Attestation recorded in Intraprocedure, Intraprocedure Attestations filed [facility] [id number] NoteAddendum created 08/04/23 130 by SANTI Terrazas CRNA Attestation recorded in Intraprocedure, Intraprocedure Attestations [facility]06-18-2024 Miscellaneous Notes* Addendum Note - SANTI Terrazas CRNA - 08/04/2023 1:04 PM EDT Addendum created 08/04/23 130 by SANTI Terrazas CRNA Attestation recorded in Intraprocedure, Intraprocedure Attestations filed * Anesthesia Discharge Note - SANTI Terrazas CRNA - 08/04/2023 11:03 AM EDT Patient: Sheyla Ramirez Procedure Summary Date: 08/04/23 Room / Location: [facility] ENDO SEC 4 / [facility] [...] criteria has been met. documented in this [facility]06-18-2024 Procedure anesthesia Narrative* Procedure Summary Procedure Name [...] IV Placement Date: 07/17 10/09; Placement Time: 941; Catheter Size: 22 G; Orientation: Anterior, Right; Location: Forearm; Site Prep: Chlorhexidine; Local Anesth: None; Inserted by: [place]; Insertion Attempts: 1; Difficult Venous Access? No; Removal Date: 08/04/23; Removal Time: 11008/04/23 0942 by Allegra Kelley RN 08/04/23 1106 by Amaya Ernst RN documented in this encounter [facility] [id number] Anesthesiology Postoperative evaluation and management note* Anesthesia Postprocedure Evaluation - SANTI Terrazas CRNA - 08/04/2023 11:04 AM EDT Patient: Sheyla Ramirez Procedure Summary Date: 08/04/23 Room / Location: [address] ENDO [facility] / [facility] Gastroenterology Anesthesia Start: 1039 Anesthesia Stop: 1048 [...] opportunity for questions and acknowledgement of understanding. [employer] Phone: 1(987) 991-770306-18-2024 NotePatient: Sheyla Ramirez Procedure Summary Date: 08/04/23 Room / Location: [address] ENDO SEC 4 / [facility] Gastroenterology [...] Allowed opportunity for questions and acknowledgement of understanding.[facility]06-18-2024 Surgical operation note* Anesthesia Postprocedure Evaluation - Lashanda Ruelas APRN - PANEL FLOW MACHINE OPERATOR - 08/04/2023 11:04 AM EDT Patient: Sheyla Ramirez Procedure Summary Date: 08/04/23 Room / Location: [facility] END[facility] SEC 4 / [facility] Gastroenterology Anesthesia Start: 1039 Anesthesia Stop: 8 Procedure: ESOPHAGOGASTRODUODENOSCOPY WITH BIOPSY (Esophagus) Diagnosis: Diaphragmatic [...] WITH BIOPSY (Esophagus) - 30 mins Location: [facility] END[facility] SEC 4 / [facility] Gastroenterology [...] or any previous visit. documented in this [facility]06-18-2024 Note* Anesthesia Discharge Note - SANTI Terrazas CRNA - 08/04/2023 11:03 AM EDT Patient: Sheyla Ramirez Procedure Summary Date: 08/04/23 Room / Location: [facility] END[facility] SEC 4 / [facility] Gastroenterology Anesthesia Start: 1038 Anesthesia Stop: 1047 Procedure: ESOPHAGOGASTRODUODENOSCOPY WITH BIOPSY (Esophagus) Diagnosis: Diaphragmatic [...] once all PACU criteria has been met. [facility] [id number] NotePatient: Sheyla Ramirez Procedure Summary Date: 08/04/23 Room / Location: [facility] END[facility] SEC 4 / [facility] Gastroenterology Anesthesia Start: 1038 Anesthesia Stop: 1047 Procedure: ESOPHAGOGASTRODUODENOSCOPY WITH BIOPSY (Esophagus) Diagnosis: Diaphragmatic [...] discharged once all PACU criteria has been met.[facility] [id number] Hospital Discharge instructions* Discharge Instructions* Amaya Ernst [...] mild sore throat. You may use an svsa-fgr-dvupzas chloraseptic spray, gargle with warm salt water, [...] TO NEAREST EMERGENCY DEPARTMENT documented in this [facility]06-18-2024 Anesthesiology Preoperative evaluation and management note* Anesthesia Preprocedure Evaluation - SANTI Terrazas CRNA - 08/04/2023 10:36 AM EDT Patient: Sheyla Ramirez Procedure Information Date/Time: 08/04/23 1100 Procedure: ESOPHAGOGASTRODUODENOSCOPY WITH BIOPSY (Esophagus) - 30 mins Location: [address] ENDO [employer] [facility] [employer] [facility] / [facility] Gastroenterology Providers: Julian Kruse MD Relevant Problems [...] found for this or any previous visit. [facility]06-18-2024 NotePatient: Sheyla Ramirez Procedure Information Date/Time: 08/04/23 1100 Procedure: ESOPHAGOGASTRODUODENOSCOPY WITH BIOPSY (Esophagus) - 30 mins Location: [facility] END[facility] SEC 4 / [facility] Gastroenterology [...] results found for this or any previous visit.[facility] 08-04-2023 Note* Op Note - Julian Kruse MD - 08/04/2023 10:32 AM EDT Endoscopy Center- [facility] Patient Name: Sheyla Ramirez Procedure Date: 08/04/2023 10:32 AM Gender: Female Date of : 1945 Age: 77 Admit Type: Outpatient Note Status: Finalized Endoscopist: Julian Kruse MD, [id number] Procedure: Upper GI endoscopy Indications: Gastro-esophageal reflux [...] immediate complications. Procedure Code(s): --- Professional --- 81193, Esophagogastroduodenoscopy, flexible, transoral; with biopsy, single or multiple --- Technical --- 23851, Esophagogastroduodenoscopy, flexible, transoral; with biopsy, single or multiple Diagnosis Code(s): --- Professional --- K29.70, Gastritis, unspecified, without bleeding K44.9, Diaphragmatic hernia without obstruction or gangrene K21.00, Gastro-esophageal reflux disease with esophagitis, without bleeding --- Technical --- K29.70, Gastritis, unspecified, without bleeding K44.9, Diaphragmatic hernia without obstruction or gangrene K21.00, Gastro-esophageal reflux disease with esophagitis, without bleeding CPT copyright 2021 [employer]. All rights reserved. The codes documented in this report are preliminary and upon chemistry manager review may be revised to meet current compliance requirements. Attending Participation: I personally performed the entire procedure. Julian Kruse MD 08/04/2023 10:53:03 AM This report has been signed electronically. Number of Addenda: 0 Note Initiated On: 08/04/2023 10:32 AM [facility] [id number] Note* Op Note - Julian Kruse MD - 08/04/2023 10:32 AM EDT [facility] [facility] Name[facility] Sheyla Ramirez Procedure Date: 08/04/2023 10:32 AM Gender: Female Date of : 1945 Age: 77 Admit Type: Outpatient Note Status: Finalized Endoscopist: Julian Kruse MD, [id number] Procedure: Upper GI endoscopy Indications: Gastro-esophageal reflux [...] immediate complications. Procedure Code(s): --- Professional --- 29947, Esophagogastroduodenoscopy, flexible, transoral; with biopsy, single or multiple --- Technical --- 31717, Esophagogastroduodenoscopy, flexible, transoral; with biopsy, single or multiple Diagnosis Code(s): --- Professional --- K29.70, Gastritis, unspecified, without bleeding K44.9, Diaphragmatic hernia without obstruction or gangrene K21.00, Gastro-esophageal reflux disease with esophagitis, without bleeding --- Technical --- K29.70, Gastritis, unspecified, without bleeding K44.9, Diaphragmatic hernia without obstruction or gangrene K21.00, Gastro-esophageal reflux disease with esophagitis, without bleeding CPT copyright 202 [employer]. All rights reserved. The codes documented in this report are preliminary and upon chemistry manager review may be revised to meet current compliance requirements. Attending Participation: I personally performed the entire procedure. Julian Kruse MD 08/04/2023 10:53:03 AM This report has been signed electronically. Number of Addenda: 0 Note Initiated On: 08/04/2023 10:32 AM [id number] [facility] Patient Name: Sheyla Ramirez Procedure Date: 08/04/2023 10:32 AM Gender: Female Date of : 1945 Age: 77 Admit Type: Outpatient Note Status: Finalized Endoscopist: Julian Kruse MD, [id number] Procedure: Upper GI endoscopy Indications: Gastro-esophageal reflux [...] immediate complications. Procedure Code(s): --- Professional --- 72054, Esophagogastroduodenoscopy, flexible, transoral; with biopsy, single or multiple --- Technical --- 51890, Esophagogastroduodenoscopy, flexible, transoral; with biopsy, single or multiple Diagnosis Code(s): --- Professional --- K29.70, Gastritis, unspecified, without bleeding K44.9, Diaphragmatic hernia without obstruction or gangrene K21.00, Gastro-esophageal reflux disease with esophagitis, without bleeding --- Technical --- K29.70, Gastritis, unspecified, without bleeding K44.9, Diaphragmatic hernia without obstruction or gangrene K21.00, Gastro-esophageal reflux disease with esophagitis, without bleeding CPT copyright 2021 [employer]. All rights reserved. The codes documented in this report are preliminary and upon chemistry manager review may be revised to meet current compliance requirements. Attending Participation: I personally performed the entire procedure. Julian Kruse MD 08/04/2023 10:53:03 AM This report has been signed electronically. Number of Addenda: 0 Note Initiated On: 08/04/2023 10:32 [facility]06-18-2024 Miscellaneous Notes* Op Note - Julian Kruse MD - 08/04/2023 10:32 AM EDT [facility] Patient Name: Sheyla Ramirez Procedure Date: 08/04/2023 10:32 AM Gender: Female Date of : 1945 Age: 77 Admit Type: Outpatient Note Status: Finalized Endoscopist: Julian Kruse MD, [id number] Procedure: Upper GI endoscopy Indications: Gastro-esophageal reflux [...] immediate complications. Procedure Code(s): --- Professional --- 12390, Esophagogastroduodenoscopy, flexible, transoral; with biopsy, single or multiple --- Technical --- 96357, Esophagogastroduodenoscopy, flexible, transoral; with biopsy, single or multiple Diagnosis Code(s): --- Professional --- K29.70, Gastritis, unspecified, without bleeding K44.9, Diaphragmatic hernia without obstruction or gangrene K21.00, Gastro-esophageal reflux disease with esophagitis, without bleeding --- Technical --- K29.70, Gastritis, unspecified, without bleeding K44.9, Diaphragmatic hernia without obstruction or gangrene K21.00, Gastro-esophageal reflux disease with esophagitis, without bleeding CPT copyright 2021 [employer]. All rights reserved. The codes documented in this report are preliminary and upon chemistry manager review may be revised to meet current compliance requirements. Attending Participation: I personally performed the entire procedure. Julian Kruse MD 08/04/2023 10:53:03 AM This report has been signed electronically. Number of Addenda: 0 Note Initiated On: 08/04/2023 10:32 AM documented in this [facility]06-17-2024 History and physical note* Julian Kruse MD - 08/03/2023 6:23 PM EDT Images from the original note were not included. [facility] - Surgery [facility] Physicians Surgery PATIENT NAME: Sheyla Ramirez [...] understanding and willingness to proceed with plan. T [facility] [id number] [facility] - Surgery [facility] Surgery PATIENT NAME: Sheyla Ramirez [...] % infusion 100 mL/hr IntraVENous Continuous Whitney Friedt, PA-C Prior to Admission medications Medication Sig [...] understanding and willingness to proceed with plan. [facility] [id number] History and physical note* Julian Kruse MD - 08/03/2023 6:23 PM EDT Images from the original note were not included. [facility] - Surgery [facility] Physicians Surgery PATIENT NAME: Sheyla Ramirez [...] to proceed with plan. documented in this encounterSWood County [id number] Telephone encounter Note* Telephone Encounter - Niesha Garcia - 07/08/2023 4:02 PM EDT Spoke with pt today about new surgery date of 09/08 @ 7:00. She verbalized understanding and also stated she has an appt w/ her gravure printing machinist on 08/27. (Cardiac clearance still pending til then) [facility] [id number] Miscellaneous Notes* Telephone Encounter - Niesha Garcia - 07/08/2023 4:02 PM EDT Spoke with pt today about new surgery date of 09/08 @ 7:00. She verbalized understanding and also stated she has an appt w/ her gravure printing machinist on 08/27. (Cardiac clearance still pending til [...] ride. Please call patient documented in this [facility]05-16-2024 Telephone encounter Note* Telephone Encounter - Niesha Garcia - 07/02/2023 2:28 PM EDT I faxed the cardiac clearance request today. I will keep it in a folder here of pending requests. Ican update the Cced message and route off once received. Unless there is a different protocol for keeping track [facility] [id number] Miscellaneous Notes* Telephone Encounter - Niesha Garcia [...] ride. Please call patient documented in this encounterSWood County [id number] Telephone encounter Note* Telephone Encounter - Whitney Ball PA-C - 07/02/2023 2:08 PM EDT Please make sure to get cardiac clearance prior to surgery [facility] Fly6 Phone: [phone] 116-884305-15-2024 Telephone encounter Note* Telephone Encounter - Niesha Garcia - 07/01/2023 9:03 AM EDT Called pt and LVM explaining we already chose an EGD appt, August 03, arrival time of 10:00. Pleaselet pt know that if she calls back. [facility] [id number] Telephone encounter Note* Telephone Encounter - Ceasar Powell MA - 06/29/2023 2:42 PM EDT Patient LVM that she would like to schedule EGD she found a ride. Please call patient [facility] [id number] History of Present illness Narrative* Julian Kruse MD - 06/26/2023 11:15 AM EDT Images from the original note were not included. [facility] - Surgery [facility] Physicians Surgery Patient Name: Sheyla Ramirez [...] for what is listed in HPI. Dr Bailey OV note 04/15/23 reviewed EGD w/dil Dr Bailey 08/30/18 reviewed PMHx: Past Medical History: Diagnosis [...] on file DIAGNOSTIC EVALUATION: EGD w/dil Dr Bailey 08/30/18 Pathology 08/30/18 Physical Examination: BP 120/79 [...] will need medical risk stratification from her gravure printing machinist. We will proceed with surgical intervention. 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 I personally performed the evaluation and management [...] as PCP - General (Internal Medicine) Chandana Bailey (Gastroenterology) documented in this [facility]05-10-2024 History of Present illness Narrative* Julian Kruse MD - 06/26/2023 11:15 AM EDT Images from the original note were not included. [facility] - Surgery [facility] Physicians Surgery Patient Name: Sheyla Ramirez [...] however did not seek further workup during COVDE. 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 I personally reviewed the patient intake form and discussed the ROS with the patient. The ROS is negative except for what is listed in HPI. Dr Bailey OV note 04/15/23 reviewed EGD w/dil Dr Bailey 08/30/18 reviewed PMHx: Past Medical History: Diagnosis [...] on file DIAGNOSTIC EVALUATION: EGD w/dil Dr Bailey 08/30/18 Pathology 08/30/18 Physical Examination: BP 120/79 [...] will need medical risk stratification from her gravure printing machinist. We will proceed with surgical intervention. 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 I personally performed the evaluation and management [...] as PCP - General (Internal Medicine) Chandana Bailey (Gastroenterology) * Niesha Garcia - 06/26/2023 11:15 AM EDT Called pt and notified of upper GI and EGD. Mailed paperwork documented in this [facility]05-10-2024 History of Present illness Narrative* Julian Kruse MD - 06/26/2023 11:15 AM EDT Images from the original note were not included. [facility] - Surgery [facility] Physicians Surgery Patient Name: Sheyla Ramirez [...] for what is listed in HPI. Dr Bailey OV note 04/15/23 reviewed EGD w/dil Dr Bailey 08/30/18 reviewed PMHx: Past Medical History: Diagnosis [...] on file DIAGNOSTIC EVALUATION: EGD w/dil Dr Bailey 08/30/18 Pathology 08/30/18 Physical Examination: BP 120/79 [...] will need medical risk stratification from her gravure printing machinist. We will proceed with surgical intervention. 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 I personally performed the evaluation and management [...] as PCP - General (Internal Medicine) Chandana Bailey (Gastroenterology) * Niesha Garcia - 06/26/2023 11:15 AM EDT Called pt and notified of upper GI and EGD. Mailed paperwork * Niesha Garcia - 06/26/2023 11:15 AM EDT Pt called and surgery date chose, case entered, post-ops made, and cardiac clearance faxed to gravure printing machinist documented in this [facility]05-10-2024 History of Present illness Narrative* Julian Kruse MD - 06/26/2023 11:15 AM EDT Images from the original note were not included. [facility] - Surgery [facility] Physicians Surgery Patient Name: Sheyla Ramirez [...] for what is listed in HPI. Dr Bailey OV note 04/15/23 reviewed EGD w/dil Dr Bailey 08/30/18 reviewed PMHx: Past Medical History: Diagnosis [...] on file DIAGNOSTIC EVALUATION: EGD w/dil Dr Bailey 08/30/18 Pathology 08/30/18 Physical Examination: BP 120/79 [...] will need medical risk stratification from her gravure printing machinist. We will proceed with surgical intervention. 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 I personally performed the evaluation and management [...] as PCP - General (Internal Medicine) Chandana Bailey (Gastroenterology) * Niesha Garcia - 06/26/2023 11:15 AM EDT Called pt and notified of upper GI and EGD. Mailed paperwork * Niesha Garcia - 06/26/2023 11:15 AM EDT Pt called and surgery date chose, case entered, post-ops made, and cardiac clearance faxed to gravure printing machinist * Niesha Garcia - 06/26/2023 11:15 AM [...] stated she has an appt w/ her gravure printing machinist on 08/27. (Cardiac clearance still pending til ) documented in this [facility]05-10-2024 History of Present illness Narrative* Julian Kruse MD - 06/26/2023 11:15 AM EDT Images from the original note were not included. [facility] - Surgery [facility] Physicians Surgery Patient Name: Sheyla Ramirez [...] for what is listed in HPI. Dr Bailey OV note 04/15/23 reviewed EGD w/dil Dr Bailey 08/30/18 reviewed PMHx: Past Medical History: Diagnosis [...] on file DIAGNOSTIC EVALUATION: EGD w/dil Dr Bailey 08/30/18 Pathology 08/30/18 Physical Examination: BP 120/79 [...] will need medical risk stratification from her gravure printing machinist. We will proceed with surgical intervention. 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 I personally performed the evaluation and management [...] as PCP - General (Internal Medicine) Chandana Bailey (Gastroenterology) * Niesha Garcia - 06/26/2023 11:15 AM EDT Called pt and notified of upper GI and EGD. Mailed paperwork * Niesha Garcia - 06/26/2023 11:15 AM EDT Pt called and surgery date chose, case entered, post-ops made, and cardiac clearance faxed to gravure printing machinist * Niesha Garcia - 06/26/2023 11:15 AM [...] stated she has an appt w/ her gravure printing machinist on 08/27. (Cardiac clearance still pending til then) * Niesha Garcia - 06/26/2023 11:15 AM EDT Received cardiac clearance approval. -pre-op appt this Thursday documented in this [facility]05-10-2024 History of Present illness Narrative* Julian Kruse MD - 06/26/2023 11:15 AM EDT Images from the original note were not included. [facility] - Surgery [facility] Physicians Surgery Patient Name: Sheyla Ramirez [...] for what is listed in HPI. Dr Bailey OV note 04/15/23 reviewed EGD w/dil Dr Bailey 08/30/18 reviewed PMHx: Past Medical History: Diagnosis [...] on file DIAGNOSTIC EVALUATION: EGD w/dil Dr Bailey 08/30/18 Pathology 08/30/18 Physical Examination: BP 120/79 [...] will need medical risk stratification from her gravure printing machinist. We will proceed with surgical intervention. 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 I personally performed the evaluation and management [...] as PCP - General (Internal Medicine) Chandana Bailey (Gastroenterology) * Niesha Garcia - 06/26/2023 11:15 AM EDT Called pt and notified of upper GI and EGD. Mailed paperwork * Niesha Garcia - 06/26/2023 11:15 AM EDT Pt called and surgery date chose, case entered, post-ops made, and cardiac clearance faxed to gravure printing machinist * Niesha Garcia - 06/26/2023 11:15 AM [...] stated she has an appt w/ her gravure printing machinist on 08/27. (Cardiac clearance still pending til then) * Niesha Garcia - 06/26/2023 11:15 AM EDT Received cardiac clearance approval. -pre-op appt this Thursday * Niesha Garcia - 06/26/2023 11:15 AM EDT Cardiac stress test and ECHO results received from [facility]. Placed in review folder * Niesha Garcia - 06/26/2023 11:15 AM EDT Cardiac paperwork received and signed off on. PAT canceled per Sha (pt aware) documented in this [facility]04-17-2024 Telephone encounter Note* Telephone Encounter - Low Boykin - 06/03/2023 9:03 AM EDT [employer]ator appt scheduled for 06/25, pt informed via phone/mail. Sent GABRIELLA to [place] to get UGI images. [facility] [id number] Miscellaneous Notes* Telephone Encounter - Low Boykin - 06/03/2023 9:03 AM EDT [employer] Separator appt scheduled for 06/25, pt informed via phone/mail. Sent GABRIELLA to [place] to get UGI images. * Telephone Encounter - Low Boykin - 06/02/2023 10:15 AM EDT Referral received and given to Dr. Ceballos for review. Lvm asking pt where she got her UGI done so I can get images for Dr. Ceballos to review. documented in this [facility]04-16-2024 NoteReferral received and given to Dr. Ceballos for review. Lvm asking pt where she got her UGI done so I can get images for Dr. Ceballos to review.[facility] 06-02-2023 Telephone encounter Note* Telephone Encounter - Low Boykin - 06/02/2023 10:15 AM EDT Referral received and given to Dr. Ceballos for review. Lvm asking pt where she got her UGI done so I can get images for Dr. Ceballos to review. [facility]* Diagnosis Onset Date Resolution Status Bilateral impacted cerumen a cute Essential (primary) hypertension chronic Type 2 diabetes mellitus chr onic Abdominal pain chronic Essential (primary) hypertension chronic Type 2 diabetes mellitus [facility] Work Phone: Evaluation note* Diagnosis Onset Date Resolution Status Bilateral impacted cerumen a cute Essential (primary) hypertension chronic Type 2 diabetes mellitus chr onic Abdominal pain chronic Essential (primary) hypertension chronic Type 2 diabetes mellitus chr onic Carotid artery disease chron ic Diabetes mellitus type 2, co ntrolled, without complications chronic Essential (primary) hypertension [facility] Work Phone: Evaluation note* Diagnosis Onset Date [...] chr onic Type 2 diabetes mellitus [facility] Work Phone: Evaluation note* Diagnosis Onset Date Resolution Status Health care maintenance acut e Essential (primary) hypertension chronic Hyperlipidemia chronic Type 2 diabetes mellitus chr onic Essential (primary) hypertension chronic Hyperlipidemia chronic Type 2 diabetes mellitus [facility] Work Phone: Evaluation note* Diagnosis Onset Date Resolution Status Flu vaccine need acute [facility] Work Phone: Evaluation note* Diagnosis Onset Date Resolution Status Flu vaccine need acute Essential (primary) hypertension chronic GERD (gastroesophageal reflux disease) chronic Hyperlipidemia chronic Osteopenia chronic Type 2 diabetes mellitus [facility] Diabetes mellitus type 2, co ntrolled, without complications chronic Essential (primary) hypertension chronic Hyperlipidemia chronic [facility] Work Phone: Evaluation note* Diagnosis Onset Date Resolution Status Left hip pain acute Low back pain acute Pain in left araya acute Essential (primary) hypertension chronic GERD (gastroesophageal reflux disease) chronic Type 2 diabetes mellitus [facility] Work Phone: Evaluation note* Diagnosis Hiatal hernia- Primary Diaphragmatic hernia without mention of obstruction or gangrene GERD without esophagitis Esophageal reflux documented in this encounter [facility]* Diagnosis Hiatal hernia- Primary Diaphragmatic hernia without mention of obstruction or gangrene GERD without esophagitis Esophageal reflux Diaphragmatic hernia without obstruction or gangrene Diaphragmatic hernia without mention of obstruction or gangrene Gastro-esophageal reflux disease without esophagitis documented in this encounter [facility]* Diagnosis Hiatal hernia- Primary Diaphragmatic hernia without mention of obstruction or gangrene GERD without esophagitis Esophageal reflux Diaphragmatic hernia without obstruction or gangrene Diaphragmatic hernia without mention of obstruction or gangrene Gastro-esophageal reflux disease without esophagitis Diaphragmatic hernia without obstruction or gangrene Diaphragmatic hernia without mention of obstruction or gangrene Acute bronchiolitis, unspecified documented in this encounter [facility] note* Diagnosis Hiatal hernia- Primary Diaphragmatic hernia without mention of obstruction or gangrene GERD without esophagitis Esophageal reflux Diaphragmatic hernia without obstruction or gangrene Diaphragmatic hernia without mention of obstruction or gangrene Gastro-esophageal reflux disease without esophagitis Diaphragmatic hernia without obstruction or gangrene Diaphragmatic hernia without mention of obstruction or gangrene Acute bronchiolitis, unspecified documented in this encounter [facility] note* Diagnosis Hiatal hernia Diaphragmatic hernia without mention of obstruction or gangrene Diaphragmatic hernia without obstruction or gangrene Diaphragmatic hernia without mention of obstruction or gangrene Gastro-esophageal reflux disease without esophagitis Diaphragmatic hernia without obstruction or gangrene Diaphragmatic hernia without mention of obstruction or gangrene Acute bronchiolitis, unspecified documented [facility] this encounter [facility]* Diagnosis Hiatal hernia- Primary Diaphragmatic hernia [...] unspecified documented in this encounter [facility] note* Diagnosis Abdominal pain, unspecified abdominal location- Primary Constipation, unspecified constipation type Diaphragmatic hernia without obstruction or gangrene Diaphragmatic hernia without mention of obstruction or gangrene Acute bronchiolitis, unspecified documented [facility] this encounter [facility]* Diagnosis Hiatal hernia- Primary Diaphragmatic hernia without mention of obstruction or gangrene GERD without esophagitis Esophageal reflux Hiatal hernia Diaphragmatic hernia without mention of obstruction or gangrene Diaphragmatic hernia without obstruction or gangrene Diaphragmatic hernia without mention of obstruction or gangrene Acute bronchiolitis, unspecified documented in this encounter [facility] note* Diagnosis Hiatal hernia- Primary Diaphragmatic hernia without mention of obstruction or gangrene GERD without esophagitis Esophageal reflux Hiatal hernia Diaphragmatic hernia without mention of obstruction or gangrene Diaphragmatic hernia without obstruction or gangrene Diaphragmatic hernia without mention of obstruction or gangrene Acute bronchiolitis, unspecified documented in this encounter [facility]* Diagnosis Abdominal pain- Primary Abdominal pain, unspecified site Generalized abdominal pain Abdominal pain, generalized Nausea and vomiting, unspecified vomiting type Generalized abdominal pain Abdominal pain, generalized Diaphragmatic hernia without obstruction or gangrene Diaphragmatic hernia without mention of obstruction or gangrene Acute bronchiolitis, unspecified documented in this encounter [facility]* Diagnosis GERD without esophagitis- Primary Esophageal reflux Hiatal hernia Diaphragmatic hernia without mention of obstruction or gangrene Diaphragmatic hernia without obstruction or gangrene Diaphragmatic hernia without mention of obstruction or gangrene Acute bronchiolitis, unspecified documented in this encounter [facility] note* Diagnosis Hiatal hernia- Primary Diaphragmatic hernia without mention of obstruction or gangrene Hiatal hernia Diaphragmatic hernia without mention of obstruction or gangrene Gastroesophageal reflux disease without esophagitis Esophageal reflux Hx of hiatal hernia documented [facility] this encounter [facility]* Diagnosis Encounter for postoperative care- Primary Hiatal hernia Diaphragmatic hernia without mention of obstruction or gangrene GERD without esophagitis Esophageal reflux Oral thrush Candidiasis of mouth documented in this encounter [facility] Diagnosis Encounter for postoperative care- Primary Hiatal hernia Diaphragmatic hernia without mention of obstruction or gangrene GERD without esophagitis Esophageal reflux documented in this encounter [facility] Work Phone: Progress note Author Angelica Brown [facility] Note Date/Time November 29, 2024 1 :40pm [facility] [address] [place] [address] OFFICE VISIT Date of Service: 11/29/24 MR#: [id number] Acct: [id number] Patient: SHEYLA RAMIREZ Rep #: [id number] : [id number] Provider: THERESA Betancur Age/Sex: 79/F Location: [facility] Status: Signed Intake Vital Signs 11/21/24 14:24 Height 5 ft 7 in Weight: 157 lb 8 oz BMI 24.6 BP 127/77 H Blood Pressure Location Lt brachial Position Sitting Pulse 70 Pulse Source Monitor Pulse Oximetry (%) 96 Oxygen Delivery Method room air Intake Visit Reasons: flu shot 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 VIS Given Date VIS Provided VIS Publication Date 11/29/24 Single Vaccine 24 Eligibility Eligibility Date Funding Source Not Applicable Administration Comments: parker injection patient tolerated well Assessment and Plan Assessment and Plan Orders: Orders Influenza Immunization 11/29/24 Z23 - Encounter for immunization Clinical Quality Measures Falls Risk Screening/Assistive Devices Have you fallen in the past year?: No 12/09/24 1657 <Electronically signed by Angelica BHAKTA> Date _ Angelica BHAKTA Cosigner Signature: Date (if applicable) CC: ~ [facility] Work Phone: Reason for referral (narrative)No reason for referral information availableBlLan[facility] Work Phone: Summary Purpose Family History No [...] Relationship Healthcare Agent Relationshi p Communication Julian Jordan Health Care Agent Date Activated Date Inactivated [...] Relationship Healthcare Agent Relationshi p Communication Julian Jordan Health Care Agent Healthcare Agents on File Name Relationship Healthcare Agent Relationshi p Communication Julian Jordan Health Care Agent Healthcare Agents on File [...] Relationship Healthcare Agent Relationshi p Communication Julian Jordan [facility] Care Agent Healthcare Agents on File Name Relationship Healthcare Agent Relationshi p Communication Julian Jordan [facility] Care Agent Healthcare Agents on File Name Relationship Healthcare Agent Relationshi p Communication Julian Jordan [facility] Care Agent Healthcare Agents on File Name Relationship Healthcare Agent Relationshi p Communication Julian Jordan [facility] Care Agent Chief Complaint and Reason for Visit Chief Complaint 3 M FU 3 M FU Reason for Visit Bilateral impacted c erumen Essential (primary) hypertension Type 2 diabetes mellitus Abdominal pain Essential (primary) hypertension Type 2 diabetes mellitus Chief Complaint 3 M FU 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, 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, 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 CAROTID ARTERY DISEASE Reason for Visit Bilateral impacted c erumen Essential (primary) hypertension Type 2 diabetes mellitus Abdominal pain Essential (primary) hypertension Type 2 diabetes mellitus Carotid artery disease Diabetes mellitus type 2, controlled, without complications Essential (primary) hypertension Chief Complaint 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, 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, 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 CAROTID [...] 6 m fu 6 M FU, RS 1003 E-ORDER Reason for Visit Flu vaccine need [...] April 05, 2024 2:20pm Essential (primary) hypertension Februar 2024 2:20pm Hyperlipidemia April 05, 2024 2:20pm Diabetes [...] June 15, 2024 1:5 8pm 1 Y July 19, 2024 1:50p m CAD August [...] 24, 2024 12:54pm Essential (primary) hypertension Septemb 2024 12:54pm GERD (gastroesophageal reflux disease) S [facility] 2024 12:54pm Hyperlipidemia October 24, 2024 12:54pm [...] October 24, 2024 12:54pm Essential (primary) hypertension [facility] 2024 12:54pm GERD (gastroesophageal reflux disease) S [facility] 2024 12:54pm Hyperlipidemia October 24, 2024 12:54pm [...] October 24, 2024 12:54pm Essential (primary) hypertension [facility] 2024 12:54pm GERD (gastroesophageal reflux disease) S [facility] 2024 12:54pm Hyperlipidemia October 24, 2024 12:54pm [...] October 24, 2024 12:54pm Essential (primary) hypertension [facility] 2024 12:54pm GERD (gastroesophageal reflux disease) S [facility] 2024 12:54pm Hyperlipidemia October 24, 2024 12:54pm Type 2 diabetes mellitus October 24, 2024 12:54pm Abdominal pain November 21, 2024 2: 20pm Essential (primary) hypertension November 21, 2024 2:20pm Hyperlipidemia November 21, 2024 2: 20pm Thyroid nodule November 21, 2024 2: 20pm Type 2 diabetes mellitus November 21 2:20pm Additional Source Comments INFORMATION SOURCE (unrecogn ized section and content) DATE CREATED AUTHOR 01/02/2020 [facility] ([place]) DATE CREATED AUTHOR AUTHOR'S ORGANIZ ATION 02/27/2024 [facility] DATE CREATED AUTHOR AUTHOR'S ORGANIZ ATION 12/21/2024 [facility] Goals (unrecognized section and content) Goals may [...] Provider Active Start: August 01, 2024 Alcira SOLANO, PA Attending Provider Active Start: August 01, [...] Dr. Lena Thorne MD Primary Care P jen, Attending Provider, Referring Provider Active Team Status: [...] MD Attending Provider, Referring Provi curtis Active Extension Forester Relationship Specialty Start Date End Date Lena Thorne B [address] [place] [address] PCP - General Internal Medicine 06/02/23 Extension Forester Relationship Specialty Start Date End Date Lena Thorne B [address] [place] [address] PCP - General Internal Medicine 06/02/23 Chandana Bailey [address] [place] [phone] Gastroenterology 06/26/23 Extension Forester Relationship Specialty Start Date End Date Miriam Thornebe B [address] [place] [phone] PCP - General Internal Medicine 06/02/23 Chandana Bailey [address] [place] [address] Gastroenterology 06/26/23 Extension Forester Relationship Specialty Start Date End Date Lena Thorne [address] [place] [phone] PCP - General Internal Medicine 06/02/23 Chandana Bailey [address] [place] [address] Gastroenterology 06/26/23 Extension Forester Relationship Specialty Start Date End Date Lena Thorne [address] [place] [phone] PCP - General Internal Medicine 06/02/23 Chandana Bailey [address] [place] [address] Gastroenterology 06/26/23 Extension Forester Relationship Specialty Start Date End Date Lena Thorne [address] [place] [phone] PCP - General Internal Medicine 06/02/23 Chandana Bailey [address] [place] [address] Gastroenterology 06/26/23 Extension Forester Relationship Specialty Start Date End Date Lena Thorne [address] [place] [phone] PCP - General Internal Medicine 06/02/23 Chandana Bailey [address] [place] [address] Gastroenterology 06/26/23 Extension Forester Relationship Specialty Start Date End Date BassemgalloRubenjigarjames Salgado [address] [place] [address] PCP - General Internal Medicine 06/02/23 Chandana Bailey [address] [place] [address] Gastroenterology 06/26/23 Extension Forester Relationship Specialty Start Date End Date BassemgalloRubenjigarjames Salgado [address] [place] [address] PCP - General Internal Medicine 06/02/23 Chandana Bailey [address] [place] [address] Gastroenterology 06/26/23 Extension Forester Relationship Specialty Start Date End Date BassemgalloRubenjigarjames Salgado [address] [place] [phone] PCP - General Internal Medicine 06/02/23 Chandana Bailey [address] [place] [address] Gastroenterology 06/26/23 Extension Forester Relationship Specialty Start Date End Date Lena Thorne [address] [place] [phone] PCP - General Internal Medicine 06/02/23 Chandana Bailey [address] [place] [address] Gastroenterology 06/26/23 Extension Forester Relationship Specialty Start Date End Date Lena Thorne [address] [place] [phone] PCP - General Internal Medicine 06/02/23 Chandana Bailey [address] [place] [address] Gastroenterology 06/26/23 Extension Forester Relationship Specialty Start Date End Date Lena Thorne [address] [place] [phone] PCP - General Internal Medicine 06/02/23 Chandana Bailey [address] [place] [phone] Gastroenterology 06/26/23 Extension Forester Relationship Specialty Start Date End Date Lena Thorne [address] [place] [phone] PCP - General Internal Medicine 06/02/23 Chandana Bailey [address] [place] [address] Gastroenterology 06/26/23 Extension Forester Relationship Specialty Start Date End Date BassemLena holder [address] [place] [phone] PCP - General Internal Medicine 06/02/23 Chandana Bailey [address] [place] [address] Gastroenterology 06/26/23 Extension Forester Relationship Specialty Start Date End Date Lena Thorne [address] [place] [phone] PCP - General Internal Medicine 06/02/23 Chandana Bailey [address] [place] [address] Gastroenterology 06/26/23 Extension Forester Relationship Specialty Start Date End Date BassemLena holder [address] [place] [phone] PCP - General Internal Medicine 06/02/23 Chandana Bailey [address] [place] [address] Gastroenterology 06/26/23 Extension Forester Relationship Specialty Start Date End Date Bassemgallo Rubennatidonta Salgado [address] [place] [phone] PCP - General Internal Medicine 06/02/23 Chandana Bailey [address] [place] [address] Gastroenterology 06/26/23 Autumn Worley, RN Registered Nurse Radon Inspector Manager 08/27/23 Vitor Camarillo [address] [place] [address] Cardiology 08/27/23 Extension Forester Relationship Specialty Start Date End Date Lena Thorne [address] [place] [address] PCP - General Internal Medicine 06/02/23 Chandana Bailey [address] [place] [address] Gastroenterology 06/26/23 Autumn Worley, RN Registered Nurse Radon Inspector Manager 08/27/23 Vitor Camarillo [address] [place] [address] Cardiology 08/27/23 Extension Forester Relationship Specialty Start Date End Date Lena Thorne [address] [place] [address] PCP - General Internal Medicine 06/02/23 Chandana Bailey [address] [place] [address] Gastroenterology 06/26/23 Autumn Worley, RN Registered Nurse Radon Inspector Manager 08/27/23 Vitor Camarillo [address] [place] [address] Cardiology 08/27/23 Extension Forester Relationship Specialty Start Date End Date BassemLena holder Damian [address] [place] [address] PCP - General Internal Medicine 06/02/23 Chandana Bailey [address] [place] [address] Gastroenterology 06/26/23 Autumn Worley, RN Registered Nurse Radon Inspector Manager 08/27/23 Vitor Camarillo [address] [place] [phone] Cardiology 08/27/23 Extension Forester Relationship Specialty Start Date End Date BassemgalloRubennatidonta Salgado [address] [place] [address] PCP - General Internal Medicine 06/02/23 Chandana Bailey MD [address] [place] [phone] Gastroenterology 06/26/23 Autumn Worley, RN Registered Nurse Radon Inspector Manager 08/27/23 Vitor Camarillo [address] [place] [address] Cardiology 08/27/23 Extension Forester Relationship Specialty Start Date End Date BassemgalloRubennatidonta Salgado [address] [place] [address] PCP - General Internal Medicine 06/02/23 Chandana Bailey MD [address] [place] [address] Gastroenterology 06/26/23 Autumn Worley, STEPHENIE Registered Nurse Radon Inspector Manager 08/27/23 Vitor Camarillo [address] [place] [address] Cardiology 08/27/23 Extension Forester Relationship Specialty Start Date End Date Lena Thorne [address] [place] [address] PCP - General Internal Medicine 06/02/23 Chandana Bailey MD [address] [place] [address] Gastroenterology 06/26/23 Autumn Worley RN Registered Nurse Radon Inspector Manager 08/27/23 Vitor Camarillo [address] [place] [address] Cardiology 08/27/23 Extension Forester Relationship Specialty Start Date End Date Lena Thorne [address] [place] [phone] PCP - General Internal Medicine 06/02/23 Chandana Bailey MD [address] [place] [address] Gastroenterology 06/26/23 Autumn Worley, STEPHENIE Registered Nurse Radon Inspector Manager 08/27/23 Rabia, Vitor [address] [place] [address] Cardiology 08/27/23 Extension Forester Relationship Specialty Start Date End Date Lena Thorne [address] [place] [address] PCP - General Internal Medicine 06/02/23 Chandana Bailey MD [address] [place] [address] Gastroenterology 06/26/23 Autumn Worley, RN Registered Nurse Radon Inspector Manager 08/27/23 Rabia, [place] [address] [place] [address] Cardiology 08/27/23 Team Status: Inactive Member Role [...] 01, 2024 End: August 01, 2024 Alcira SOLANO, PA Attending Provider Active Start: August 01, 2024 End: August 01, 2024 Alcira SOLANO, PA Referring Provider Active Start: August 01, [...] 01, 2024 End: August 01, 2024 Alcira SOLANO, PA Attending physician Active Start: August 01, 2024 End: August 01, 2024 Alcira Angelo PA, PA [...] November 29, 2024 End: November 29, 2024 KIRK MackeyC Attending physician Active Start: November 29, 2024 End: November 29, 2024 Reason for Visit (unrecogniz ed section and content) Reason Onset Date Comments Results 06/02/2023 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 / Procedures Referred By Tawana perez Referred To Contact General Surgery Diagnoses Diaphragmatic hernia without obstruction or gangrene Procedures DC ABDOMEN WALL SURG PROC UNLISTED Chandana Bailey [address] [place] [address] Julian Kruse MD [address] [facility] [address] [place] [address] Referral ID Status Reason Start Date Expiration Date Visits Re quested Visits Authorized [id number] Closed 06/02/2023 12/02/2023 1 1 Specialty Diagnoses / Procedures Referred By Tawana perez Referred To Contact Diagnoses Diaphragmatic hernia without obstruction or gangrene Gastro-esophageal reflux disease without esophagitis Procedures DC EGD TRANSORAL BIOPSY SINGLE/MULTIPLE ESOPHAGOGASTRODUODENOSCOPY WITH BIOPSY Julian Kruse MD [address] [facility] [address] [place] [address] [address] [facility] [address] [place] [address] Referral ID Status Reason Start Date Expiration Date Visits Re quested Visits Authorized [id number] 1 1 Reason Comments Abdominal Pain Pt [...] vomiting type Procedures . Arsalan Swenson MD [address] [place] [address] [address] [place] [address] Referral ID Status Reason Start Date Expiration Date Visits Re quested Visits Authorized [id number] 1 1 Reason Onset Date Comments Appointment 08/25/2023 Reason Comments Follow-up F/U -pre op, HH *car diac clearance approved Reason Onset Date Comments Transitional Care Management Outreach 09/04/2023 Specialty Diagnoses / Procedures Referred By Tawana perez Referred To Contact Diagnoses Diaphragmatic hernia without obstruction or gangrene Acute bronchiolitis, unspecified Procedures DC LAPS RPR PARAESPHGL HRNA INCL FUNDPLSTY W/MESH DC EGD TRANSORAL BIOPSY SINGLE/MULTIPLE LAPAROSCOPIC HIATAL HERNIA REPAIR, WITH MESH, WITH POSTERIOR FUNDOPLICATION, ESOPHAGOGASTRODUODENOSCOPY WITH BIOPSY, POSSIBLE OPEN Julian Kruse MD [address] [facility] [address] [place] [address] [facility] [address] [place] [address] Referral ID Status Reason Start Date Expiration Date Visits Re quested Visits Authorized [id number] 1 1 Reason Onset Date Comments OTHER 08/24/2023 Reason Comments Post-op POST OP JZ Reason Comments Post-op 09/02/2023 JZ Continuous Active and Recently Administ ered Medications (unrecognized section and content) Medication Order 08/02/2023 08/03/2023 08/04/2023 sodium chloride 0.9 % infusion 100 mL/hr, IntraVENous, Continuous, Starting on Thu08/04/23 at 1000, Preprocedure 1040 (New Bag - Prov ider: Lashanda Ruelsa APRN - PAULA)1048 (Anesthesia Volume Adjustment - Provider: SANTI Terrazas [...] dose 0836 (Given - Provid er: Niesha Cartwright RT (R)(CT)) Scheduled Medication Order 08/23/2023 08/24/2023 08/25/2023 atorvastatin (Lipitor) tablet 10 mg 10 mg, Oral, Daily, First dose on 08/22/23 at 0900 0918 (Given - Provider: Yaneli Vann RN) 2100 (Given - Provider: Jeannine Palafox RN - Comment: pt states she normally takes in the evening) 0748 (Given - Provider: Calos Hennessy, RN) bisacodyl (Dulcolax) suppository 10 mg 10 [...] Walker RN) 0556 (Given - Provider: Jeannine Palafox, STEPHENIE) 0617 (Given - Provider: Jeannine Palafox, STEPHENIE) latanoprost (Xalatan) 0.005 % ophthalmic solution 1 drop 1 drop, Both Eyes, Nightly, First dose on Thu08/21/23 at 2200 204 (Given - Provider: Jeannine Palafox, STEPHENIE) 2100 (Given - Provider: Jeannine Palafox, STEPHENIE) losartan (Cozaar) tablet 25 mg 25 mg, [...] RN) 0749 (Not Given - Provider: Calos Hennessy RN - Reason: Patient/family refused) polyethylene glycol (PEG) 3350 (Miralax) packet 17 g 17 g, Oral, Daily, First dose on 08/23/23 at 0900 0918 (Given - Provider: Yaneli Vann RN) 0727 (Given - Provider: Yaneli Vann RN) 0747 (Given - Provider: Calos Hennessy RN) polyethylene glycol (PEG) 3350 (Miralax) packet 17 g (COMPLETED) 17 g, Oral, Once, On 08/23/23 at 2100, For 1 dose 2101 (Given - Provider: Jeannine Palafox RN) PRN Medication Order 08/23/2023 08/24/2023 08/25/2023 acetaminophen [...] hrs, Reason for Non-Formulary: strict NPO, SBO 1840 (New Bag - Provider: Denita Fuentes, STEPHENIE)1855 (Stopped - Provider: Denita Fuentes RN) 0104 (New Bag - Provider: Marian Blanca, STEPHENIE)0119 (Stopped - Provider: Marian Blanca RN)0852 (New Bag - Provider: Julian Schmidt, STEPHENIE)0907 (Stopped - Provider: Julian Schmidt RN)1715 (Canceled [...] Indication (Select all that apply): Surgical Prophylaxis 07 (Given - Provider: Asael Ya CRNA) diatrizoate [...] Blanca RN) 1000 (Given - Provider: Julian Schmidt, STEPHENIE) famotidine (Pepcid) 20 mg in sodium chloride (PF) 0.9 % 10 mL injection (COMPLETED)(Linked Group 1) 20 mg, IntraVENous, Administer over 2 Minutes, Once, On Thu09/09/23 at 0600, For 1 dose, Preprocedure, IV or ORAL 0632 (Given - Provider: Nelda Victor, RN) heparin injection 5,000 Units (COMPLETED) 5,000 [...] RN) 0800 (Not Given - Provider: Julian Schmidt, STEPHENIE - Reason: Patient/family refused)1228 (Given - Provider: [...] Units 2309 (Given - Provider: Marian Blanca STEPHENIE) pantoprazole (ProtoNix) injection 40 mg 40 mg, IntraVENous, Administer over 2 Minutes, Daily, First dose on Thu09/09/23 at 1330, Phase II/On Unit 1313 (Given - Provider: Denita Fuentes RN) 0852 (Given - Provider: Julian Schmidt, RN) sodium chloride 0.9% (NS) flush 10 mL 10 mL, IntraVENous, Every 12 hours scheduled (2 times per day), First dose on Thu09/09/23 at 2100, Phase II/On Unit 2100 (Canceled Entry - Provider: Automatic Discharge Provider - Comment: Automatically canceled at discontinue of medication order) 0900 (Given - Provider: Julian Schmidt, RN) Continuous Medication Order 09/08/2023 09/09/2023 09/10/2023 [...] Unit 1547 (New Bag - Provider: Denita Fuentes RN) 0126 (New Bag - Provider: Marian Blanca, STEPHENIE) PRN Medication Order 09/08/2023 09/09/2023 09/10/2023 albuterol [...] notify physician 1016 (Given - Provider: Whitney Phelps, RN) naloxone (Narcan) injection 0.4 mg 0.4 mg, IntraVENous, Every 5 min PRN, opioid reversal, respiratory depression, Starting on Thu09/09/23 at 1241, +++ For RR <10, pinpoint pupils, over sedation for opioid reversal - MUST notify police detention attendant provider immediately after first dose, may give [...] BE BASED ON THE PRIMARY CLINICAL RECORDS. [employer] [facility]. provides no warranty or guarantee of the accuracy or completeness of information in this document.
[2025-02-08] MEDS: Lactated Ringers 1,000 ML 15 ML IV (06:39)
--- NOTE | 2025-02-08 06:57 | PRE.ANES_ITS ---
ASA Classification* ASA Classification ASA Classification: 2 Assessment & Plan Anesthesia* Anesthesia Assessment Anesthesia Assessment: Discussed sedation and/or anesthesia options, risks, benefits, and alternatives with patient/parents/legal guardian/POA. Questions invited. The patient/parents/legal guardian/POA seems to understand and agrees to proceed with anesthesia plan. Reviewed the physical assessment, medical history, allergy history and patient home medications list prior to surgery/procedure/anesthetic and documented any changes. Performed airway and anesthesia risk assessments. Anesthesia Type Anesthesia Type: General Anesthesia Focused Assessment* Temperature: 98.6 F Pulse Rate: 77 Blood Pressure: 98/68 Respiratory Rate: 16 Pulse Ox: 96 Airway Assessment Mouth opens: >3 cm Mallampati Score: II Labs Anesthesia Preop lab: CBC WBC, (4.4-11.0) 10.0 K/mm3 01/22/25, 19:20 RBC, (4.2-5.4) 4.75 M/mm3 01/22/25, 19:20 Hgb, (12.0-15.0) 13.6 g/dL 01/22/25, 19:20 Hct, (37-47) 42.6 % 01/22/25, 19:20 Plt Count, (150-450) 210 K/mm3 01/22/25, 19:20 CHEMISTRY Potassium, (3.3-5.1) 4.5 mmol/L 01/22/25, 19:20 Sodium, (133-145) 139 mmol/L 01/22/25, 19:20 Magnesium, (1.6-2.6) 2.3 mg/dL 11/03/17, 06:33 BUN, (4-19) 29 mg/dL H 01/22/25, 19:20 Creatinine, (0.70-1.20) 1.35 mg/dL H 01/22/25, 19:20 Glucose, (70-99) 189 mg/dL H 01/22/25, 19:20 TSH, (0.300-4.200) 4.750 uIU/mL H 11/21/24, 15:47 COAG Pre-Assessment Diagnosis/Proposed Procedure Planned Operative Procedure(s): LEFT URETEROSCOPY, STENT, LASER Anesthesia History 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 When Was Last Pacemaker Check QUESTION #4 FULL TEXT: You/Your Family Experience fever (hyperthermia) with Anesthesia Last Oral Intake Last Oral intake: Last Oral Intake NPO since 20:30 02/08/25 06:26 Meds taken in AM with sips of water? Meds patient instructed to take am of surgery PONV PONV - paper baling machine operator: PONV - paper baling machine operator Female Yes 02/07/25 09:25 HX of Motion Sickness No 02/07/25 09:25 HX of N/V After Surgery No 02/07/25 09:25 Non-Smoker Yes 02/07/25 09:25 Duration of Surgery greater No 02/07/25 09:25 than 60 minutes Number of Risk Factors 2 02/07/25 09:25 PONV Score Moderate Risk 02/07/25 09:25 Height & Weight Height & Weight: Anesthesia: Height & Weight Height 5 ft 7 in 02/08/25 06:26 Weight: 71 kg 02/08/25 06:26 Body Mass Index (BMI) 24.5 02/08/25 06:26 Respiratory Assessment Respiratory Assessment - paper baling machine operator: Respiratory Tract Infection Hx - paper baling machine operator Hx Respiratory Tract Infection No 02/07/25 09:25 STOP Sleep Apnea STOP Sleep Apnea - paper baling machine operator: STOP Sleep Apnea - paper baling machine operator Hx Hypertension Yes: CONTROLLED ON MED 02/07/25 09:25 Hx Sleep Apnea No 02/07/25 09:25 CPAP BIPAP Do you snore loudly (louder No 02/07/25 09:25 than talking or can be heard Do you often feel tired/ No 02/07/25 09:25 fatigued/ sleepy during daytime? Has anyone observed you stop No 02/07/25 09:25 breathing during sleep? STOP Results Negative 12/23/25 09:25 QUESTION #5 FULL TEXT : Do you snore loudly (louder than talking or can be heard through closed doors)? 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 Specify any problems Hx of Preganancy in last 3 No 02/07/25 09:25 Months Nurse Filling Out Transfusion VCHRISTIN 02/07/25 09:25 & Questions: Date: 02/07/25 02/07/25 09:25 Time: 02/07/25 09:25 Patient unable to answer at this time (ie. confused, unrespo /Reproduction History /Reproductive History - paper baling machine operator: /Reproductive Hx- paper baling machine operator Hx Now No 02/07/25 09:25 Gestational Age (in weeks): EDC: Hx Hx Para Hx Section SAB No 02/07/25 09:25 Does the father of the baby or his family experience fever w Father of the baby Malignant Hypertension history comment Active Medications Active Medications: Current Medications Generic Name Dose Route Start Last Admin Trade Name Freq PRN Reason Stop Dose Admin Ciprofloxacin 400 mg in 200 mls @ 200 mls/hr 02/08/25 07:00 Cipro IV 02/08/25 07:59 PREOP ONE Lactated Ringer's 1,000 mls @ 15 mls/hr 02/08/25 06:00 02/08/25 06:39 IV 15 mls/hr .Q48H NARCISO Administration PFSH Medical History Wears hearing aid Wears glasses Post-menopausal High cholesterol Back pain Gastric reflux Non-smoker History of edema History of echocardiogram History of stress test Cardiology follow-up encounter Localized swelling, mass and lump, right lower limb Hip swelling Type 2 diabetes mellitus Diabetes Thyroid nodule Neck mass Back pain Lumbar radiculopathy Constipation Pain in left araya Low back pain Left hip pain Osteopenia Hyperlipidemia Health care maintenance Carotid artery disease OSCAR (acute kidney injury) Abdominal pain Bilateral impacted cerumen Flu vaccine need Vitamin D deficiency Breast cancer screening GERD (gastroesophageal reflux disease) GERD (gastroesophageal reflux disease) Essential (primary) hypertension Cough Intermittent palpitations Thyroid disease Palpitation partial sigmoidectomy Thyroid disease Pneumonia Osteoarthritis Hearing problem Glaucoma Back problem Arthritis Seasonal allergies Home Medications ?Medication ?Instructions ?Recorded ?Last Taken ?Type latanoprost 0.005 % eye drops 1 drp ophthalmic (eye) Q DAY 01/28/17 Unknown History blood sugar diagnostic (FreeStyle #90 ea 06/13/21 Unkn own Rx Precision Leonardo Strips) lancets (Accu-Chek Fastclix Lancet #102 ea 09/12/21 Un known Rx Drum) cholecalciferol (vitamin D3) 1,250 1,250 mcg PO QWEEK #20 caps 01/01/23 Unknown Rx mcg (50,000 unit) capsule lansoprazole 15 mg capsule,delayed 15 mg PO QHS PRN GE RD 30 days #30 07/29/23 02/08/25 History release caps brimonidine 0.2 % eye drops 1 drp ophthalmic (eye) BID 01/05/24 Unknown History atorvastatin 10 mg tablet See Rx Instructions .Route 1 03/23/23 Unknown Rx .COMPLEX #90 tabs metformin 500 mg tablet 500 mg PO BID #180 tabs 04/16 10/10 Unknown Rx aspirin 81 mg tablet,delayed 81 mg PO QDAY #90 tabs 02/05/25 Rx release (Adult Aspirin Regimen) FreeStyle Wilfredo 3 Plus Sensor #6 ea 08/08/24 Unknown R x (blood-glucose sensor) blood-glucose,deaf and hard of hearing 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,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 ea 08/08/24 Unknown Rx (FreeStyle Wilfredo 3 [place]) glimepiride 4 mg tablet 4 mg PO BID 3 months #180 ta bs 10/24/24 Unknown Rx Novolog FlexPen U-100 Insulin 100 10 unit (0.1 mL) sub cut TID #15 mL 11/21/24 Unknown Rx unit/mL (3 mL) subcutaneous (insulin aspart U-100) pen needle, diabetic 32 gauge x #50 ea 11/21/24 Unknow n Rx 5/32 insulin glargine 100 unit/mL (3 10 unit (0.1 mL) subcu t QPM #15 mL 11/28/24 Unknown Rx mL) subcutaneous pen (Basaglar KwikPen U-100 Insulin) losartan 25 mg tablet 12.5 mg (1/2 x 25 mg) PO QDA Y #90 01/09/25 02/08/25 Rx tabs ondansetron 4 mg disintegrating 4 mg PO Q8H PRN PRN Na usea #10 tabs 01/22/25 Unknown Rx tablet insulin degludec 100 unit/mL (3 5 unit subcut DAILY Unknown History mL) subcutaneous pen (Tresiba FlexTouch U-100 insulin) Allergy/AdvReac Type Severity Reaction Status Date / Time Penicillins Allergy Severe Rash Verified 02/08/25 06:23 grass pollen Allergy Intermediate Unknown Verified 02/08/25 06:23 house dust Allergy Intermediate Unknown Verified 02/08/25 06:23 mold Allergy Intermediate Unknown Verified 02/08/25 06:23 Seasonal Allergies: Uncoded Allergy Intermediate NEEDS Verified 02/08/25 06:23 FOLLOW-UP Sulfa (Sulfonamide Allergy Unknown Swelling Verified 02/07/25 09:10 Antibiotics) neomycin Allergy edeema, Verified 02/08/25 06:23 skin reaction lisinopril AdvReac cough Verified 02/08/25 06:23 Family History Mother Breast cancer Diabetes Father Thyroid disorder Cancer Grandfather CVA (cerebral vascular accident) Surgical History Hx of dilation and curettage S/P laparoscopic fundoplication Normal colonoscopy History of right breast biopsy Social History Smoking Status: Never smoker second hand exposure: No alcohol intake: current alcohol intake frequency: holidays/special occasions only substance use type: does not use caffeine: Yes Type: coffee Number of servings: 1 what type of physical activity do you participate in: none Review of Systems (Anesthesia) ROS Narrative System reviewed and no additional complaints, except as documented.
[2025-02-08] MEDS: Lidocaine 1% (5 ml sdv) 5 ML Vial IV (07:35)
[2025-02-08] MEDS: fentaNYL 100 MCG/2 ML Ampul 50 MCG IV (07:35)
--- NOTE | 2025-02-08 07:37 | PCM.DC ---
Discharge Instructions DC O2, CPAP, BIPAP needs Home O2 Discharge instructions: No Dressing / Incision Discharge Activity: Return to Normal Activity and May Shower May shower in (days): 1 Dressing / Incision Call your doctor if you observe: Fever of 101 or Higher and Uncontrolled pain Suture Line Care: Avoid Pulling/Pushing and Avoid Pinching/Bending Follow Up Care Please Follow Up With: Kelton Skinner MD When: Call [phone] for an appointment Test Results: Test results from this visit will be discussed in further detail at your follow-up appointment, if applicable. Discharge Plan Admission Primary Reason for Your Visit: laser stone and stent left Attending Provider: Kelton Skinner Primary Care Provider: Naren Thorne Instructions Patient Instructions: Kidney Stone Ureteroscopy Print Language: Green[place]ic Discharge Orders/Prescriptions Prescriptions: New ciprofloxacin HCl [Cipro] 500 mg tablet 500 mg PO BID Qty: 6 0RF Rx Instructions: okay to crush phenazopyridine [Pyridium] 100 mg tablet 100 mg PO TID PRN (Reason: pain) Qty: 14 0RF oxycodone 5 mg tablet 5 mg PO Q6H PRN (Reason: pain) 3 Days Qty: 7 0RF Continued latanoprost 0.005 % drops 1 drp OPHTHALMIC QDAY lansoprazole 15 mg capsule,delayed release(DR/EC) 15 mg PO QHS PRN (Reason: GERD) 30 Days Qty: 30 (DME) FreeStyle Precision Leonardo Strips Strip See Rx Instructions .ROUTE .MEDSUPPLY Qty: 90 11RF Rx Instructions: 3x/day brimonidine 0.2 % drops 1 drp ophthalmic (eye) BID (DME) lancets [Accu-Chek Fastclix Lancet Drum] Misc See Rx Instructions .Route Qty: 102 6RF Rx Instructions: 3 times daily cholecalciferol (vitamin D3) 1,250 mcg (50,000 unit) capsule 1,250 mcg PO QWEEK Qty: 20 3RF (DME) FreeStyle Wilfredo 3 [place] Misc See Rx Instructions .Route Qty: 1 0RF Rx Instructions: As directed (DME) FreeStyle Wilfredo 3 Plus Sensor Device See Rx Instructions .Route Qty: 6 3RF Rx Instructions: As directed aspirin [Adult Aspirin Regimen] 81 mg tablet,delayed release (DR/EC) 81 mg PO QDAY Qty: 90 3RF insulin aspart U-100 [Novolog FlexPen U-100 Insulin] 100 unit/mL (3 mL) insulin pen 10 unit subcut TID Qty: 15 6RF (DME) pen needle, diabetic 32 gauge x 5/32 needle See Rx Instructions .ROUTE .MEDSUPPLY Qty: 50 4RF Rx Instructions: 4 times daily ondansetron 4 mg tablet,disintegrating 4 mg PO Q8H PRN PRN (Reason: Nausea) Qty: 10 0RF insulin degludec [Tresiba FlexTouch U-100] 100 unit/mL (3 mL) insulin pen 5 unit subcut DAILY atorvastatin 10 mg tablet See Rx Instructions .ROUTE .COMPLEX Qty: 90 3RF Dose Instruction: TAKE 1 TABLET BY MOUTH EVERY DAY Rx Instructions: TAKE 1 TABLET BY MOUTH EVERY DAY metformin 500 mg tablet 500 mg PO BID Qty: 180 1RF glimepiride 4 mg tablet 4 mg PO BID 90 Days Qty: 180 3RF insulin glargine [Basaglar KwikPen U-100 Insulin] 100 unit/mL (3 mL) insulin pen 10 unit subcut QPM Qty: 15 5RF losartan 25 mg tablet 12.5 mg PO QDAY Qty: 90 3RF Referrals / Follow Up: Naren Thorne MD [Primary Care Provider, Internal Medicine] Disposition Disposition (needs filled in before D/C Order can be placed): Home, Self Care
--- NOTE | 2025-02-08 08:15 | OP.PCM_ITS ---
Operative Report (Standard) Operative Information Date of Procedure: 02/08/25 Pre-Operative Diagnosis: Left obstructing ureteral calculi 3 mm Post-Operative Diagnosis: The same Surgery/Procedure Performed: Cystoscopy, left retrograde pyelogram, left uret eroscopy laser lithotripsy of stone and left stent placement client services assistant: No Type of Anesthesia: General RN Documented Start/Stop Times: Operation Date: 02/08/25 07:30 Case Time Into Pre-Op 02/08/25 05:59 Out of Pre-Op 02/08/25 07:22 Procedure Start Time: 07:30 Procedure Stop Time: 08:10 Select all DRAINS/GRAFTS/IMPLANTS that apply: Drains Drain details: 6 [place] by 26 cm stent Estimated Blood Loss: None Specimen collected: No Description of surgery: Indication this is a 79-year-old female who had severe left flank pain CAT scan was done that demonstrated a small stone in the mid left ureter on review of the imaging I felt the stone was about 3 mm in size it is possible she may be able to pass a stone on her own with time. She called back to the office after some time of waiting to see if the stone would pass and still it was having pain off-and-on so I offered intervention with ureteroscopy and laser lithotripsy. We talked about the risk of surgery risk of bleeding and infection and very rare risk of scar tissue formation and rare risk of needing multiple procedures. After discussing the risk and benefits of surgical intervention to remove the stone the patient would desire to have surgery to intervene since the stone has not been able to pass on its own spontaneously. Patient was taken back to the operating room after induction of anesthesia she was placed supine on the table and then in dorsolithotomy position with the legs in stirrups. Making sure all pressure points were padded. The operative team then prepped the patient the urethra and vaginal area were prepped we then draped draped the patient for cystoscopy. Then using a 21 [place] rigid cystourethroscope went into the bladder through the urethra once inside the bladder inspected the bladder the trigone is normal the left and right ureteral orifice were normal position the kim of the bladder were normal no tumors or stones were seen within the bladder. I then used a 5 [place] open-ended ureteral catheter with a 0.038 Glidewire hydrophilic and cannulated the left ureteral yefri fice with a wire under fluoroscopy advanced the wire up the ureter until it coiled up in the kidney and then over the wire I advanced the ureteral catheter into the distal ureter then pulled the wire out and then performed a retrograde pyelogram. 5 cc of contrast were diluted with 5 cc of normal saline and a retrograde pyelogram was performed on retrograde pyelogram mucous contrast going up the ureter contrast filling the kidney but I could not see the stone on the retrograde pyelogram. Once the retrograde was done to delineate the anatomy then I put the wire back up in the kidney and then over the wire we loaded up the 7.5 [place] flexible Olympus ureteroscope over the wire and then went into the bladder and then had to angulate the scope to get through the ureterovesical junction and then was able to get through the ureter junction through the bladder and then going up the ureter slowly I encountered the stone about a 3 mm yellow looking stone in the mid ureter. Immediately returned on the irrigation we pulled out the wire and with irrigation the stone then floated back up to the kidney I followed the stone up to the kidney it went into the renal pelvis and then it went into the midpole calyx of the right renal kidney. I then went up with the ureteroscope into the mid calyx we then advanced a 200 ?m thulium laser fiber through the ureteroscope once the fibroid was ready then we trapped the stone in the midpole calyx and using energy settings of 0.2 J and 40 Hz the stone was then lasered completely into small tiny dust pieces there was then another tiny little stone fragments stuck on the wall the calyx this was also lasered completely after lasering his stone completely then I went inspected all the kidney I inspected the upper pole kidney which was clear of any stones midpole kidney mid lower pole kidney and then the retroflexed down into the lower kidney and I did not see any other stone fragments inspected the renal pelvis and no other major stone fragments were seen. I then worked my way down the ureter remove the laser fiber of no at this point the flexible ureteroscope vision became poor because the scope was leaking and it was very difficult to see but decided not to switch ureteroscope the middle of the case and I worked my way down the ureter and finally all the way down the ureter visualization was poor but is able to see the ureter and I did not see any other stone fragments or problems we then put a wire through the ureteroscope and coiled up in the kidney and then I backed loaded the ureteroscope off the wire and then I loaded over the wire with a 21 [place] rigid cystoscope and went to the bladder and then over the 0.038 Glidewire advanced a 6 [place] by 26 cm stent once the stent was on the wire we pushed it up into the kidney once a wire was in good position we pulled the wire and the stent coiled in the kidney and bladder in good position I had tied the end of the stent to the ureter and then I left a string on the stent and let the string long I did cut the string but left a significant amount of string hanging out the urethra in order to allow facilitate easy extraction of the stent within the next 6 days. Patient is anesthetic was reversed she was taken back to the PACU in stable condition she had been given antibiotics prior to the procedure and had SCDs on for DVT prophylaxis. She will call my office in follow-up next week for stent removal with a string and she will see the nurse practitioner she was given prescription for antibiotics and Pyridium and pain medicine. Surgical Findings: Stone found in mid ureter and lasered completely stent placed Complications Complications: No Admit VTE Documentation VTE Present on Admission: No VTE Mechan Device Prophylaxis: SCD's VTE Pharm Prophylaxis ordered?: No
--- NOTE | 2025-02-08 08:22 | PCM.POST.ANE ---
Anesthesia: Postop Eval I Current Vital Signs Temperature: 97.6 F Pulse Rate: 73 Blood Pressure: 143/58 Respiratory Rate: 16 Pulse Ox: 95 Oxygen Delivery Method: Room Air Assessment Airway patent: Yes Spontaneous unlabored respirations: Yes Mental status: Awake and Calm nausea: No Vomiting: No Anesthesia Complication: No Fluid Hydration Crystalloid volume administer (ml): 600 Total IV fluid infused: 600 Progress Note Anesthesia document: Postop Eval 1 completed: Yes
--- NOTE | 2025-02-08 08:30 | POSTOPAN2_ITS ---
Anesthesia Postop Eval I Sum Postop Eval Completion status Anesthesia document: Postop Eval 1 completed: Yes Anesthesia Postop Eval I Summary Anesthesia Postop Eval I Summary: Anesthesia Postop Eval I: Assessment Summary Airway patent Yes 02/08/25 08:22 BAKERY [email or web address] Spontaneous unlabored Yes 02/08/25 08:22 BAKERY SALES [email or web address] respirations Mental status Awake,Calm 02/08/25 08:22 BAKERY [email or web address] nausea No 02/08/25 08:22 BAKERY SALES [email or web address] Vomiting No 02/08/25 08:22 BAKERY SALES [email or web address] Anesthesia Postop Eval I: Fluid Summary Crystalloid volume administer 600 02/08/25 08:22 BAKERY SALES [email or web address] (ml) Colloids volume administered ( ml) Blood Product volume administered (ml) Total IV fluid infused 600 02/08/25 08:22 BAKERY SALES [email or web address] Anesthesia Postop Eval I: Summary Notes Anesthesia Complication No 02/08/25 08:22 BAKERY SALES [email or web address] Anesthesia Complication Comment: Post-operative progress note Anesthesia: Postop Eval II Evaluation Mental status: Awake Pain Level: 0 nausea: No Vomiting: No
--- NOTE | 2025-02-08 08:30 | PCM.POSTANE2 ---
Anesthesia Postop Eval I Sum Postop Eval Completion status Anesthesia document: Postop Eval 1 completed: Yes Anesthesia Postop Eval I Summary Anesthesia Postop Eval I Summary: Anesthesia Postop Eval I: Assessment Summary Airway patent Yes 02/08/25 08:22 [email or web address] Spontaneous unlabored Yes 02/08/25 08:22 [email or web address] respirations Mental status Awake,Calm 02/08/25 08:22 [email or web address] nausea No 02/08/25 08:22 SOLE [email or web address] Vomiting No 02/08/25 08:22 [email or web address] Anesthesia Postop Eval I: Fluid Summary Crystalloid volume administer 600 02/08/25 08:22 SOLE [email or web address] (ml) Colloids volume administered ( ml) Blood Product volume administered (ml) Total IV fluid infused 600 02/08/25 08:22 [email or web address] Anesthesia Postop Eval I: Summary Notes Anesthesia Complication No 02/08/25 08:22 SOLE [email or web address] Anesthesia Complication Comment: Post-operative progress note Anesthesia: Postop Eval II Evaluation Mental status: Awake Pain Level: 0 nausea: No Vomiting: No
== END 2025-02-08 09:58 | disposition home or self-care (01) ==
LOC: SDC 05:51 → AC 05:52
PROVIDERS: PCP Internal Medicine; Referring Provider Urology; Visit Provider Urology
PROC: 0TJ98ZZ Inspection of Ureter, Via Natural or Artificial Opening Endoscopic (ICD-10-PCS; CPT 52352; principal; 2025-02-08 07:20)
DX: N20.2 Calculus of kidney with calculus of ureter (principal); E11.9 Type 2 diabetes mellitus without complications; I10 Essential (primary) hypertension; Z79.82 Long term (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 aspirin; Z79.899 Other long term (current) drug therapy; Z79.84 Long term (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 oral hypoglycemic drugs
CPT/HCPCS: 52356; 00918; 76000; 82962; C1769; C2617; J0744; J2405

== ENCOUNTER 2025-02-10 14:12 | Emergency (ER) | payer MEDICARE, OTHER, SELFPAY ==
[2025-02-10 14:12] VITALS: BP 151/65; PULSE 70; RESP 22; TEMP 36.6; O2SAT 99; BMI 25.2
--- OUTSIDE RECORDS SUMMARY | 2025-02-10 14:39 | XMS RPT_ITS | CCD ---
Author Organization [facility] Care Team Providers Care Excellence Leader Name Role Phone Dr. Lena Thorne Primary [...] Unavailable Meir CASIANO, Autumn Unavailable Unavailable Rabia, [place] Unavailable Chandana Bailey MD Unavailable OLEGHE, EFEWONGBE [...] Dr. Sylvester Bhakta MD Attending Physician Kevin 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-CAngelica Attending Physician Oleghe, Efewongbe Primary Care Unavailable [...] (antibiotic) (3 sources) Neomycin Drug Allergy 4 [facility] Penicillins (antibiotic) (3 sources) Penicillins Drug Allergy 1 [facility] Sulfonamides (antibiotic) (3 sources) Sulfonamides (Antibiotic) Drug Allergy 4 [facility] (18 sources) Grass pollen; Translations: [grass pollen] Allergy to substance 2 Unknown [facility] (17 sources) house dust allergenic extract Drug Allergy 2 Unknown [facility] (17 sources) Lisinopril Drug Allergy 2 cough [facility] (20 sources) Mold Extract Drug Allergy 9 Unknown [facility] (20 sources) Neomycin Drug Allergy 2 [facility] (20 sources) Penicillins; Translations: [Penicillins] Allergy to substance 1 [facility] (20 sources) Seasonal allergy Allergy to substance 2 Runny nose [facility] Work Phone: (18 sources) Sulfonamides (Antibiotic); Translations: [Sulfa (Sulfonamide Antibiotics)] Allergy to substance 2 Swelling [facility] (14 sources) Seasonal Allergies: Uncoded; Translations: [Seasonal Allergies: Uncoded] Allergy to substance 3 NEEDS FOLLOW-UP [facility] (20 sources) Sulfonamides (Antibiotic) Propensity to adverse reactions 4 [facility] (20 sources) Grass pollen Drug Allergy 9 Unknown [facility] (20 sources) Lisinopril Allergy to substance 9 Cough [facility] (1 source) house dust allergenic extract Drug Allergy 5 [facility] (1 source) Lisinopril Drug Allergy 5 [facility] (1 source) Mold Extract Drug Allergy 5 [facility] (1 source) Neomycin Drug Allergy 5 [facility] Medications Current Medications Medication Drug Class(es) [...] 3 August 08, 2024 9:46am Diabetes mellitus custodial current use of diluted insulin Type 2 diabetes mellitus without complications 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 insulin As directed Start: 04-05-2024 End: 08-08-2024 Blood-Glucose Sensor (Freest yle Wilfredo 3 Plus Sensor) device Discontinued 0 .Route 6 3 April 05, 2024 3:41pm August 08, 2024 9:46am Diabetes mellitus 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 current use of diluted insulin Type 2 diabetes mellitus without complications custodial (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 insulin As directed Start: 04-05-2024 Blood-Glucose Sensor (Freestyle Wilfredo 3 Plus Sensor) device Active 0 .Route 6 April 05, 2024 3:41pm As directed Start: 01-05-2024 End: 04-05-2024 Blood-Glucose Sensor (Freest yle Wilfredo 3 Plus Sensor) device Discontinued 0 .Route 6 January 05, 2024 1:00am April 05, 2024 3:42pm Diabetes mellitus 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 current use of diluted insulin Type 2 diabetes mellitus without complications 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 insulin As directed Start: 01-05-2024 End: 04-05-2024 Blood-Glucose Sensor (Freest yle Wilfredo 3 Plus Sensor) device Discontinued 0 .Route 6 January 05, 2024 1:00am April 05, 2024 3:42pm As directed Blood-Glucose,Engineering Production Liaison,Cont (Freestyle Wilfredo 3 [place]) misc (20 sources) Start: 08-08-2024 Blood-Glucose,Engineering Production Liaison,Cont (Freestyle Wilfredo 3 [place]) misc Active 0 .Route 1 0 August 08, 2024 9:46am Diabetes mellitus 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 current use of diluted insulin Type 2 diabetes mellitus without complications 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 insulin As directed Start: 04-05-2024 End: 08-08-2024 Blood-Glucose,Engineering Production Liaison,Cont (Freestyle Wilfredo 3 [place]) misc Discontinued 0 .Route 1 0 April 05, 2024 3:40pm August 08, 2024 9:46am Diabetes mellitus custodial current use of diluted insulin Type 2 diabetes mellitus without complications custodial (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 insulin As directed Start: 04-05-2024 Blood-Glucose, Engineering Production Liaison,Cont (Freestyle Wilfredo 3 [place]) misc Active 0 .Route 1 April 05, 2024 3:40pm As directed Start: 01-05-2024 End: 04-05-2024 Blood-Glucose,Engineering Production Liaison,Cont (Freestyle Wilfredo 3 [place]) misc Discontinued 0 .Route 1 0 January 05, 2024 1:00am April 05, 2024 3:41pm Diabetes mellitus custodial current use of diluted insulin Type 2 diabetes mellitus without complications custodial (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 insulin As directed Start: 01-05-2024 End: 04-05-2024 Blood-Glucose,Engineering Production Liaison,Cont (Freestyle Wilfredo 3 [place]) misc Discontinued 0 .Route 1 January 05, [...] D Start: 01-01-2023 take 1 capsule by [facility] every week Start: 05-22-2021 End: 01-01-2023 take [...] D3) 1,250 mcg (50,000 unit) capsule Discontinued 84204 U PO EVERY WEEK 10 November 21, [...] PO DAILY July 07, 2022 12:00am nystatin 842654 unt/ml oral suspension (8 sources) Polyene Antifungal Start: 09-25-2023 take 5 mL by mouth three times daily, then take 5 mL by mouth three times daily nystatin (Mycostatin) 482512 UNIT/ML suspension Indications: Oropharyngeal Candidiasis Swish and [...] 0740, For 1 dose polyethylene glycol 3350 11645 mg powder for oral solution (20 sources) [...] or glucagon. 0.5 ml heparin sodium, porcine 49338 unt/ml prefilled syringe (2 sources) Unfractionated Heparin, [...] Start: 09-09-2023 End: 09-09-2023 0-12 Units, SubCUTAneous, SD N, high blood sugar, Surgery patient, Starting [...] 2:31pm Start: 06-09-2018 take 1 capsule by [facility] at bedtime Start: 06-09-2018 End: 07-29-2023 Lansoprazole [...] 08-21-2023 08-21-2023 Episodic Other aftercare (1 source) custodial (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 insulin; Translations: [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 insulin] Onset: 04-05-2024 Episodic [...] Office Visit Reporton 2024 Office Visit Report [facility] [address] [place] [address] OFFICE VISIT Date of Service: 11/29/24 MR#: [id number] Acct: [id number] Patient: SHEYLA RAMIREZ #: [id number] : 1945 Provider: THERESA NURSE Age/Sex: 79/F [place] [facility] [place] Status: Signed Intake Vital Signs 11/21/24 14:24 Height 5 ft 7 in Weight: 157 lb 8 oz BMI 24.6 BP 127/77 H Blood Pressure Location Lt brachial Position Sitting Pulse 70 Pulse Source Monitor Pulse Oximetry (%) 96 Oxygen Delivery Method room air Intake Visit Reasons: flu shot Chief Complaint: flu shot Assistant Professor Sculpture Required: No Accompanied by: Self Is patient [...] ea 08/08/24 11/29/24 Rx (FreeStyle Wilfredo 3 [place]) glimepiride 4 mg tablet 4 mg PO [...] syringe Performing Provider: LIVIA Mackey Performing Location: [facility] Administered by: Amy Simpson on 11/29/24 13:09 Dose Route Admin Location Dispensed Lot Number Expiration Date Package NDC NDC Produce Department Supervisor 45 mcg IM Left Arm (SQ) 0.5 mL [id number] 06/13/25 [id number] [employer] VIS Given Date VIS Provided VIS Publication Date 11/29/24 Single Vaccine 24 Eligibility Eligibility Date Funding Source Not Applicable Administration Comments: parker injection patient tolerated well Assessment and Plan Assessment and Plan Orders: Orders Influenza Immunization 11/29/24 Z23 - Encounter for immunization Clinical Quality Measures Falls Risk Screening/Assistive Devices Have you fallen in the past year?: No 12/09/24 1655 Date Angelica Brown 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-C Cosigner Signature: Date (if applicable) CC: Normal [facility] Thyroid Peroxidase ABon 10-0 THYR PEROX AB < 9 Normal 0-34 [facility] Comment on above: Result Comment: Perf ormed at: - [facility] [id number] Early Childhood Education Worker: Chandana Turner PhD, Phone: [phone] Performed By: #### L 500.2500, L100.0100 #### [facility] [address] [facility]. [place], [place], [id number] Amylaseon 11-21-2024 KELLI 63 U/L Normal 28-100 [facility] Comment on above: Performed By: #### L 501.2400, L501.2450, L501.9520, L500.4050, L3300.6900 #### [facility] [address] [place], [place], [id number] Anion gap in Serum or Plasma Ordered By: Sylvester Bhakta on 11-21-2024 Anion gap [Moles/Vol] 11 mmol/L - [facility] BUN/creatinine ratioOrdered By: Sylvester Bhakta on 11-21-2024 Urea nitrogen/Creatinine [Mass ratio] 36.0 mg/mg High 12-05 [facility] Bilirubin, totalOrdered By: Sylvester Bhakta on 11-21-2024 Bilirubin [Mass/Vol] 0.27 mg/dL Normal 0.00-1.30 [facility] Comment on above: Performed By: #### L 501.2400, L501.2450, L501.9520, L500.4050, L3300.6900 #### [facility] [address] [place], [address] Carbon dioxide, total [Moles /volume] in Central venous bloodOrdered By: Sylvester Bhakta on 11-21-2024 CO2 [Moles/Vol] 24.6 mmol/L Normal 21.0-32.0 [facility] Comment on above: Performed By: #### L 501.2400, L501.2450, L501.9520, L500.4050, L3300.6900 #### [facility] [address] [place], [address] Chloride assayOrdered By: Dhiraj Bhakta on 11-21-2024 Chloride [Moles/Vol] 105 mmol/L Normal 98-108 [facility] Comment on above: Performed By: #### L 501.2400, L501.2450, L501.9520, L500.4050, L3300.6900 #### [facility] [address] [place], [address] Comprehensive Metabolic Prof ilon 11-21-2024 ALK PHOS 80 U/L Normal 35-104 [facility] Comment on above: Performed By: #### L 501.2400, L501.2450, L501.9520, L500.4050, L3300.6900 #### [facility] [address] [place], [address] BUN/CRE 36.0 RATIO High 10-20 [facility] Comment on above: Performed By: #### L 501.2400, L501.2450, L501.9520, L500.4050, L3300.6900 #### [facility] [address] [place], [address] GAP 11 Normal 5-15 [facility] Comment on above: Performed By: #### L 501.2400, L501.2450, L501.9520, L500.4050, L3300.6900 #### [facility] [address] [place], [address] Potassium [Moles/Vol] 3.8 mmol/L Normal 3.3-5.1 [facility] Comment on above: Performed By: #### L 501.2400, L501.2450, L501.9520, L500.4050, L3300.6900 #### [facility] [address] [place], [address] T PROT 7.1 g/dL Normal 5.9-8.4 [facility] Comment on above: Performed By: #### L 501.2400, L501.2450, L501.9520, L500.4050, L3300.6900 #### [facility] [address] [place], [address] Comprehensive Metabolic Prof ilOrdered By: Sylvester Bhakta on 11-21-2024 AST [Catalytic activity/Vol] 27 U/L Normal <=31 [facility] Comment on above: Performed By: #### L 501.2400, L501.2450, L501.9520, L500.4050, L3300.6900 #### [facility] [address] [place], [address] Endocrinology Visit Reporton 11-21-2024 Endocrinology Visit Report [facility] [address] [facility] [place] [address] OFFICE VISIT Date of Service: 11/21/24 MR#: [id number] Acct: [id number] Name: SHEYLA RAMIREZ Rep #: [id number] : 1945 Provider: Omar Miller Age/Sex: 79/F [...] ea 08/08/24 11/21/24 Rx (FreeStyle Wilfredo 3 [place]) glimepiride 4 mg tablet 4 mg PO [...] is takin (more content not included)... Normal [facility] Glomerular filtration rate ( GFR) estimation/1.73 sq m using serum, plasma, or whole bOrdered By: Sylvester Bhakta on 11-21-2024 GFR/1.73 sq M.predicted among non-blacks MDRD (S/P/Bld) [Vol rate/Area] 65 mL/min/{1.73_m2} Normal >60 [facility] Comment on above: mL/min/1.73m2 CKD-EP I Creatinine Equation (2020) Result Comment: mL/m in/1.73m2 CKD-EPI Creatinine Equation (2020) Performed By: #### L 501.2400, L501.2450, L501.9520, L500.4050, L3300.6900 #### [facility] [address] [place] [address], [address] Lipase measurementOrdered By : Sylvester Bhakta on 11-21-2024 Lipase [Catalytic activity/Vol] 33 U/L Normal 13-75 [facility] Comment on above: Please note:LIPASE r evised [...] L 501.2400, L501.2450, L501.9520, L500.4050, L3300.6900 #### [facility] [address] [facility] [place], [address] Potassium measurement (mass/ volume)Ordered By: Sylvester Bhakta on 11-21-2024 Potassium (Unsp spec) [Mass/Vol] 3.8 mmol/L 3.3-5.1 [facility] Serum creatinine measurement (mass/volume)Ordered By: Sylvester Bhakta on 11-21-2024 Creatinine [Mass/Vol] 0.91 mg/dL Normal 0.70-1.20 [facility] Comment on above: Performed By: #### L 501.2400, L501.2450, L501.9520, L500.4050, L3300.6900 #### [facility] [address] [place], [place], [id number] Serum globulin measurementOr dered By: Sylvester Bhakta on 11-21-2024 Globulin (S) [Mass/Vol] 2.8 g/dL Normal 2.2-4.2 [facility] Comment on above: Performed By: #### L 501.2400, L501.2450, L501.9520, L500.4050, L3300.6900 #### [facility] [address] [facility] [place], [address] Serum glucose measurement (m ass/volume)Ordered By: Sylvester Bhakta on 11-21-2024 Glucose [Mass/Vol] 120 mg/dL High 70-99 [facility] Comment on above: Performed By: #### L 501.2400, L501.2450, L501.9520, L500.4050, L3300.6900 #### [facility] [address] [place], [address] Serum or plasma alanine danielson otransferase (ALT) measurementOrdered By: Sylvester Bhakta on 11-21-2024 ALT [Catalytic activity/Vol] 41 U/L High <=34 [facility] Comment on above: Performed By: #### L 501.2400, L501.2450, L501.9520, L500.4050, L3300.6900 #### [facility] [address] [facility] [place], [place], [address] Serum or plasma albumin brice urement (mass/volume)Ordered By: Sylvester Bhakta on 11-21-2024 Albumin [Mass/Vol] 4.3 g/dL Normal 3.4-4.8 [facility] Comment on above: Performed By: #### L 501.2400, L501.2450, L501.9520, L500.4050, L3300.6900 #### [facility] [address] [facility] [place], [place], [address] Serum or plasma albumin/glob ulin mass ratioOrdered By: Sylvester Bhakta on 11-21-2024 Albumin/Globulin [Mass ratio] 1.5 {ratio} Normal 0.9-2.4 [facility] Comment on above: Performed By: #### L 501.2400, L501.2450, L501.9520, L500.4050, L3300.6900 #### [facility] [address] [facility] [place], [place], [address] Serum or plasma alkaline jeannie sphatase measurementOrdered By: Sylvester Bhakta on 11-21-2024 ALP [Catalytic activity/Vol] 80 U/L 35-104 [facility] Serum or plasma amylase brice urement (enzymatic activity/volume)Ordered By: Sylvester Bhakta on 11-21-2024 Amylase [Catalytic activity/Vol] 63 U/L 28-100 [facility] Serum or plasma calcium brice urement (mass/volume)Ordered By: Sylvester Bhakta on 11-21-2024 Calcium [Mass/Vol] 9.7 mg/dL Normal 7.6-11.0 [facility] Comment on above: Performed By: #### L 501.2400, L501.2450, L501.9520, L500.4050, L3300.6900 #### [facility] [address] [facility] [place], [place], [address] Serum or plasma thyroperoxid ase antibody assay (units/volume)Ordered By: Sylvester Bhakta on 11-21-2024 TPO Ab Qn [IU]/mL 0-34 [facility] Comment on above: Performed at: [address] [id number] Director: Chandana Turner PhD, Phone: [phone] Serum or plasma urea nitroge n measurement (mass/volume)Ordered By: Sylvester Bhakta on 11-21-2024 Urea nitrogen [Mass/Vol] 33 mg/dL High 4-19 [facility] Comment on above: Performed By: #### L 501.2400, L501.2450, L501.9520, L500.4050, L3300.6900 #### [facility] [address] [place], [place], [id number] Sodium levelOrdered By: Sylvester Bhakta on 11-21-2024 Sodium [Moles/Vol] 141 mmol/L Normal 133-145 [facility] Comment on above: Performed By: #### L 501.2400, L501.2450, L501.9520, L500.4050, L3300.6900 #### [facility] [address] [place], [place], [id number] TSH DL <= 0.005 mIU/L QnOrde red By: Sylvester Bhakta on 11-21-2024 TSH Qn 4.750 uIU/mL High 0.300-4.200 [facility] Thyroid Stim Hormone (TSH)on 11-21-2024 TSH 4.750 uIU/mL High 0.300-4.200 [facility] Comment on above: Performed By: #### L 500.2500, L100.0100 #### [facility] [address] [place], [place], [id number] Total proteinOrdered By: Jose Alberto Bhakta on 11-21-2024 Protein [Mass/Vol] 7.1 g/dL 5.9-8.4 [facility] Breast imaging reportOrdered By: Jj Unger on 11-03-2024 Study report [facility] Imaging Services [address] [place] [address] SCRN MAMM (CAD)W/SIMONA BILAT MR#: [id number] Acct: [id number] Name: SHEYLA RAMIREZ Rep #: [id number] : 1945 F 78 From: Narciso Unger MD PCP: Dr. Lena Thorne MD Status: R EG CLI Study:SCRN MAMM (CAD)W/SIMONA BILAT Date of Exa m: 11/03/24 Exam# [id number] Ordering Dr: Pipe Thorne MD EXAM: SCRN [...] be mailed to the patient. Reading Location: [facility] CC: Dr. Lena Thorne MD ~ Retail Support Associate: Signed [facility] SCRN MAMM (CAD)W/SIMONA BILATo n 11-03-2024 SCRN MAMM (CAD)W/SIMONA BILAT [facility] Imaging Services [address] [place], [place] [address] SCRN MAMM (CAD)W/SIMONA BILAT MR#: [id number] Acct: [id number] Name: SHEYLA RAMIREZ Rep #: [id number] : 1945 F 78 From: Jj landin MD PCP: Dr. Lena Thorne MD Status: REG CLI Study: SCRN MAMM (CAD)W/SIMONA BILAT Date of Exam: 10/17 10/10 Exam# [id number] Ordering Dr: Lena Thorne MD EXAM: SCRN [...] be mailed to the patient. Reading Location: [facility] CC: Dr. Lena Thorne MD Retail Support Associate: Signed Normal [facility] Office Vis itomariajose 10-24-2024 Internal Medicine Office Visit [facility] [place], [place] [address] OFFICE VISIT Date of Service: 10/24/24 MR#: [id number] Acct: [id number] Name: SHEYLA RAMIREZ Rep #: [id number] : 1945 Provider: Dr. Lena garcia MD Age/Sex: 78/F [place] [facility] [place] Status: Signed Intake Vital Signs 06/15/24 14:09 [...] ea 08/08/24 10/24/24 Rx (FreeStyle Wilfredo 3 [place]) Have you fallen in the past year?: No [facility] Medical History (Updated 10/24/24 @ 13:44 by [...] routine follow-up (more content not included)... Normal [facility] Microalb:Creat Ratio,Random URon 10-24-2024 Creatinine [Mass/Vol] 330.00 mg/dL High 28.00-217.00 [facility] Comment on above: Performed By: #### L 502.0250 #### [facility] [address] [place], [place], [id number] MALB:CREAT 8.7 mg/g CRE Normal <30 mg/g CRE [facility] Comment on above: Performed By: #### L 502.0250 #### [facility] [address] [place], [place], [id number] MICROALBUMIN,UR 28.7 mg/L Normal <20 mg/L [facility] Comment on above: Performed By: #### L 502.0250 #### [facility] [address] [place], [place], [id number] Random urine creatinine brice urement (mass/volume)Ordered By: Lena Thorne on 10-24-2024 Creatinine Unsp time (U) [Mass/Vol] 330.00 mg/dL High 28.00-217.00 [facility] Urine albumin measurement wi detection limit of 20 mg/L or less (mass/volume)Ordered By: Lena Thorne on 10-24-2024 Albumin DL <= 20 mg/L (U) [Mass/Vol] 28.7 mg/L <20 mg/L [facility] Anion gap in Serum or Plasma Ordered By: Lena Thorne on 10-21-2024 Anion gap [Moles/Vol] 12 mmol/L 5-15 [facility] BUN/creatinine ratioOrdered By: Lena Thorne on 10-21-2024 Urea nitrogen/Creatinine [Mass ratio] 32.1 mg/mg High 10-20 [facility] Bilirubin, totalOrdered By: Lena Thorne on 10-21-2024 Bilirubin [Mass/Vol] 0.47 mg/dL 0.00-1.30 [facility] Calculated very low density lipoprotein (VLDL) cholesterol measurementOrdered By: natikingsburyjames Thorne on 10-21-2024 Calculated very low density lipoprotein (VLDL) cholesterol measurement 13 mg/dL 5-40 [facility] Carbon dioxide, total [Moles /volume] in Central venous bloodOrdered By: Lena Thorne on 10-21-2024 CO2 [Moles/Vol] 22.6 mmol/L 21.0-32.0 [facility] Chloride assayOrdered By: Ruben Thorne on 10-21-2024 Chloride [Moles/Vol] 104 mmol/L 98-108 [facility] Comprehensive Metabolic Prof ilon 10-21-2024 Albumin [Mass/Vol] 3.9 g/dL Normal 3.4-4.8 [facility] Comment on above: Performed By: #### L 502.0250, L500.4050, L500.4100, L501.9985 #### [facility] [address] [place], [place], [id number] Albumin/Globulin [Mass ratio] 1.5 {ratio} Normal 0.9-2.4 [facility] Comment on above: Performed By: #### L 502.0250, L500.4050, L500.4100, L501.9985 #### [facility] [address] [place], [address] ALK PHOS 70 U/L Normal 35-104 [facility] Comment on above: Performed By: #### L 502.0250, L500.4050, L500.4100, L501.9985 #### [facility] [address] [place], [address] ALT [Catalytic activity/Vol] 28 U/L Normal <=34 [facility] Comment on above: Performed By: #### L 502.0250, L500.4050, L500.4100, L501.9985 #### [facility] [address] [place], [address] AST [Catalytic activity/Vol] 21 U/L Normal <=31 [facility] Comment on above: Performed By: #### L 502.0250, L500.4050, L500.4100, L501.9985 #### [facility] [address] [place], [address] Bilirubin [Mass/Vol] 0.47 mg/dL Normal 0.00-1.30 [facility] Comment on above: Performed By: #### L 502.0250, L500.4050, L500.4100, L501.9985 #### [facility] [address] [place], [address] BUN/CRE 32.1 RATIO High 10-20 [facility] Comment on above: Performed By: #### L 502.0250, L500.4050, L500.4100, L501.9985 #### [facility] [address] [place], [address] Calcium [Mass/Vol] 9.3 mg/dL Normal 7.6-11.0 [facility] Comment on above: Performed By: #### L 502.0250, L500.4050, L500.4100, L501.9985 #### [facility] [address] [place], [address] Chloride [Moles/Vol] 104 mmol/L Normal 98-108 [facility] Comment on above: Performed By: #### L 502.0250, L500.4050, L500.4100, L501.9985 #### [facility] [address] [place], [address] CO2 [Moles/Vol] 22.6 mmol/L Normal 21.0-32.0 [facility] Comment on above: Performed By: #### L 502.0250, L500.4050, L500.4100, L501.9985 #### [facility] [address] [place], [address] Creatinine [Mass/Vol] 0.83 mg/dL Normal 0.70-1.20 [facility] Comment on above: Performed By: #### L 502.0250, L500.4050, L500.4100, L501.9985 #### [facility] [address] [place], [address] GAP 12 Normal 5-15 [facility] Comment on above: Performed By: #### L 502.0250, L500.4050, L500.4100, L501.9985 #### [facility] [address] [place], [address] GFR/1.73 sq M.predicted among non-blacks MDRD (S/P/Bld) [Vol rate/Area] 73 mL/min/{1.73_m2} Normal >60 [facility] Comment on above: Result Comment: mL/m in/1.73m2 CKD-EPI Creatinine Equation (2020) Performed By: #### L 502.0250, L500.4050, L500.4100, L501.9985 #### [facility] [address] [place], [address] Globulin (S) [Mass/Vol] 2.7 g/dL Normal 2.2-4.2 [facility] Comment on above: Performed By: #### L 502.0250, L500.4050, L500.4100, L501.9985 #### [facility] [address] [place], [address] Glucose [Mass/Vol] 150 mg/dL High 70-99 [facility] Comment on above: Performed By: #### L 502.0250, L500.4050, L500.4100, L501.9985 #### [facility] [address] [place], [address] Potassium [Moles/Vol] 4.0 mmol/L Normal 3.3-5.1 [facility] Comment on above: Performed By: #### L 502.0250, L500.4050, L500.4100, L501.9985 #### [facility] [address] [place], [address] Sodium [Moles/Vol] 139 mmol/L Normal 133-145 [facility] Comment on above: Performed By: #### L 502.0250, L500.4050, L500.4100, L501.9985 #### [facility] [address] [place], [address] T PROT 6.6 g/dL Normal 5.9-8.4 [facility] Comment on above: Performed By: #### L 502.0250, L500.4050, L500.4100, L501.9985 #### [facility] [address] [place], [address] Urea nitrogen [Mass/Vol] 27 mg/dL High 4-19 [facility] Comment on above: Performed By: #### L 502.0250, L500.4050, L500.4100, L501.9985 #### [facility] [address] [facility] [place], [place], [address] Glomerular filtration rate ( GFR) estimation/1.73 sq m using serum, plasma, or whole bOrdered By: Lena Thorne on 10-21-2024 GFR/1.73 sq M.predicted among non-blacks MDRD (S/P/Bld) [Vol rate/Area] 73 mL/min/{1.73_m2} >60 [facility] Comment on above: mL/min/1.73m2 CKD-EP I Creatinine Equation (2020) Hemoglobin A1con 10-21-2024 HbA1c (Bld) [Mass fraction] 7.3 % High <=5.6 [facility] Comment on above: Result Comment: Norm al < 5.7 % Prediabetic 5.7 - 6.4 % Diabetic >or= 6.5 % Please note range changes. Performed By: #### L 502.0250, L500.4050, L500.4100, L501.9985 #### [facility] [address] [place], [place], [address] Hemoglobin A1c percentageOrd ered By: Lena Thorne on 10-21-2024 HbA1c (Bld) [Mass fraction] 7.3 % High <5.7 [facility] Comment on above: Normal < 5.7 % Predi abetic 5.7 - 6.4 % Diabetic >or= 6.5 % Please note range changes. LDL calc ser/plasOrdered By: Lena Thorne on 10-21-2024 Cholesterol in LDL [Mass/Vol] 89 mg/dL [facility] Comment on above: Cjndbivwzk=457-920 m g/dL & Higher Sbgw=140 mg/dL or greaterFriedwald Equation for LDL-C Laboratory - Chemistry and C hemistry - challengeOrdered By: Lena Thorne on 10-21-2024 AST [Catalytic activity/Vol] 21 U/L <32 [facility] Lipid Profileon 10-21-2024 CHOL:HDL 2.16 Normal [facility] Comment on above: Performed By: #### L 502.0250, L500.4050, L500.4100, L501.9985 #### [facility] [address] [place], [address] Cholesterol [Mass/Vol] 189 mg/dL Normal <=200 [facility] Comment on above: Result Comment: Chol esterol level, Desirable <200 mg/dL Borderline high cholesterol 200-239 mg/dL High cholesterol >=240 mg/dL Recommendations of the NCEP Adult Treatment Panel for the following risk-cutoff thresholds for the [place] population. Performed By: #### L 502.0250, L500.4050, L500.4100, L501.9985 #### [facility] [address] [place], [address] Cholesterol in HDL [Mass/Vol] 88 mg/dL Normal [facility] Comment on above: Result Comment: Sanaz onal Cholesterol Education Program (NCEP) guidelines: <40 mg/dL: Low HDL-cholesterol (major risk factor for CHD) >= 60 mg/dL: High HDL-cholesterol (negative risk factor for CHD) HDL-cholesterol is affected by a number of factors, e.g. smoking, exercise, hormones, sex and age. Performed By: #### L 502.0250, L500.4050, L500.4100, L501.9985 #### [facility] [address] [place], [address] Cholesterol in LDL [Mass/Vol] 89 mg/dL Normal [facility] Comment on above: Result Comment: Bord kburmz=202-685 mg/dL Higher Yhtj=417 mg/dL or greater Friedwald Equation for LDL-C Performed By: #### L 502.0250, L500.4050, L500.4100, L501.9985 #### [facility] [address] [place], [address] Cholesterol in VLDL [Mass/Vol] 13 mg/dL Normal 5-40 [facility] Comment on above: Performed By: #### L 502.0250, L500.4050, L500.4100, L501.9985 #### [facility] [address] [place], [address] Triglyceride [Mass/Vol] 63 mg/dL Normal [facility] Comment on above: Result Comment: The drugs N-Acetylcysteine and Metamizole may falsely depress this assay. Normal range: <150 mg/dL Borderline High: 150-199 mg/dL High: 200-499 mg/dL Very High: >500 mg/dL Performed By: #### L 502.0250, L500.4050, L500.4100, L501.9985 #### [facility] [address] [place], [address] Microalb:Creat Ratio,Random URon 10-21-2024 MALB:CREAT Normal <30 mg/g CRE [facility] Comment on above: Result Comment: UTO Performed By: #### L 502.0250, L500.4050, L500.4100, L501.9985 #### [facility] [address] [place], [address] MICROALBUMIN,UR Normal <20 mg/L [facility] Comment on above: Result Comment: UTO Performed By: #### L 502.0250, L500.4050, L500.4100, L501.9985 #### [facility] [address] [place], [address] UR CREAT Normal 28.00-217.00 [facility] Comment on above: Result Comment: UTO Performed By: #### L 502.0250, L500.4050, L500.4100, L501.9985 #### [facility] [address] [place], [address] Potassium measurement (mass/ volume)Ordered By: Lena Thorne on 10-21-2024 Potassium (Unsp spec) [Mass/Vol] 4.0 mmol/L 3.3-5.1 [facility] Screening total cholesterol/ high density lipoprotein (HDL) cholesterol ratioOrdered By: Lena Thorne on 10-21-2024 Cholesterol.total/Choles terol in HDL [Mass ratio] 2.16 {ratio} [facility] Serum creatinine measurement (mass/volume)Ordered By: Lena Thorne on 10-21-2024 Creatinine [Mass/Vol] 0.83 mg/dL 0.70-1.20 [facility] Serum globulin measurementOr dered By: Lena Thorne on 10-21-2024 Globulin (S) [Mass/Vol] 2.7 g/dL 2.2-4.2 [facility] Serum glucose measurement (m ass/volume)Ordered By: Lena Thorne on 10-21-2024 Glucose [Mass/Vol] 150 mg/dL High 70-99 [facility] Serum or plasma alanine danielson otransferase (ALT) measurementOrdered By: Lena Thorne on 10-21-2024 ALT [Catalytic activity/Vol] 28 U/L <35 [facility] Serum or plasma albumin brice urement (mass/volume)Ordered By: Lena Thorne on 10-21-2024 Albumin [Mass/Vol] 3.9 g/dL 3.4-4.8 [facility] Serum or plasma albumin/glob ulin mass ratioOrdered By: Lena Thorne on 10-21-2024 Albumin/Globulin [Mass ratio] 1.5 {ratio} 0.9-2.4 [facility] Serum or plasma alkaline jeannie sphatase measurementOrdered By: Lena Thorne on 10-21-2024 ALP [Catalytic activity/Vol] 70 U/L 35-104 [facility] Serum or plasma calcium brice urement (mass/volume)Ordered By: Lena Thorne on 10-21-2024 Calcium [Mass/Vol] 9.3 mg/dL 7.6-11.0 [facility] Serum or plasma cholesterol in HDL measurement (mass/volume)Ordered By: Lean Thorne on 10-21-2024 Cholesterol in HDL [Mass/Vol] 88 mg/dL >40 [facility] Comment on above: National Cholesterol Education Program (NCEP) guidelines:<40 mg/dL: Low HDL-cholesterol (major risk factor for CHD)>= 60 mg/dL: High HDL-cholesterol (negative risk factor for CHD)HDL-cholesterol is affected by a number of factors, e.g. smoking, exercise, hormones, sex and age. Serum or plasma cholesterol measurement (mass/volume)Ordered By: Lena Thorne on 10-21-2024 Cholesterol [Mass/Vol] 189 mg/dL <201 [facility] Comment on above: Cholesterol level, D esirable <200 mg/dLBorderline high cholesterol 200-239 mg/dLHigh cholesterol >=240 mg/dLRecommendations of the NCEP Adult Treatment Panel for the following risk-cutoff thresholds for the [place] population. Serum or plasma urea nitroge n measurement (mass/volume)Ordered By: Lena Thorne on 10-21-2024 Urea nitrogen [Mass/Vol] 27 mg/dL High 4-19 [facility] Sodium levelOrdered By: Missy salazarantoni Mati on 10-21-2024 Sodium [Moles/Vol] 139 mmol/L 133-145 [facility] Total proteinOrdered By: Oscar ktjames Thorne on 10-21-2024 Protein [Mass/Vol] 6.6 g/dL 5.9-8.4 [facility] Triglycerides measurementOrd ered By: Lena Luevanobreannapipe on 10-21-2024 Triglyceride [Mass/Vol] 63 mg/dL <199 [facility] Comment on above: The drugs N-Acetylcy steine and Metamizole may falsely depress this assay. Normal range: <150 mg/dLBorderline High: 150-199 mg/dLHigh: 200-499 mg/dLVery High: >500 mg/dL Endocrinology Visit Reporton 08-04-2024 Endocrinology Visit Report [facility] [address] [place] [address]. [address] [place], [place] [address] OFFICE VISIT Date of Service: 08/04/24 MR#: [id number] Acct: [id number] Name: SHEYLA RAMIREZ Rep #: [id number] : 1945 Provider: Omar Miller Age/Sex: 78/F [place] [facility] [place] Status: Signed Intake Vital Signs 04/05/24 14:22 [...] ea 04/05/24 08/04/24 Rx (FreeStyle Wilfredo 3 [place]) Tresiba FlexTouch U-100 100 5 unit (0.05 [...] about the (more content not included)... Normal [facility] - Hematology and Cell countsOrdered By: Sylvester Bhakta on 08-04-2024 HbA1c (Bld) [Mass fraction] 7.5 % High 4.2-6.3 [facility] Carotid Duplex Ultrasoundon 08-01-2024 Carotid Duplex Ultrasound [facility] [address] [place] [address] Carotid Duplex Ultrasound 08/01/24 1305 MR#: [id number] Acct: [id number] Name: SHEYLA RAMIREZ Rep #: [id number] : 1945 78 From: Carlos Foote MD Attending Dr: XIOMARA Hartley Status: DEP [facility] Ordering Dr: Alcira Angelo PA Date: 07/17 [...] the left vertebral artery. Procedure Carotid Duplex 28100. This is a Carotid Duplex examination using [...] Dictated: 08/01/24 1305 Date Transcribed: 08/08/24 1400 Retail Support Associate: Signed Normal [facility] Cardiology Visit Reporton Cardiology Visit Report [facility] [address] [place] [address] OFFICE VISIT Date of Service: 07/19/24 MR#: [id number] Acct: [id number] Name: SHEYLA RAMIREZ Rep #: [id number] : 1945 Provider: Dr. Deanna Fregoso MD Age/Sex: 78/F [place] [facility] 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 Normal [facility] Absolute lymphocyte countOrd ered By: Lena Thorne on 06-15-2024 Lymphocytes Auto (Unsp spec) [#/Vol] 1.74 10*3/uL 0.83-4.51 [facility] Absolute neutrophil countOrd ered By: Lena Thorne on 06-15-2024 Neutrophils (Bld) [#/Vol] 4.2 10*3/uL 2.0-7.7 [facility] Anion gap in Serum or Plasma Ordered By: Lena Thorne on 06-15-2024 Anion gap [Moles/Vol] 11 mmol/L 5- [facility] Automated lymphocyte count a s percentage of total leukocytesOrdered By: Lena Thorne on 06-15-2024 Lymphocytes/100 WBC Auto (Unsp spec) 25.9 % - [facility] BUN/creatinine ratioOrdered By: Lena Thorne on 06-15-2024 Urea nitrogen/Creatinine [Mass ratio] 28.5 mg/mg High 12-05 [facility] Basic Metabolic Profile (BMP )on 06-15-2024 BUN/CRE 28.5 RATIO High - [facility] Comment on above: Performed By: #### L 500.2500, L100.0100 #### [facility] [address] [place], [address] Calcium [Mass/Vol] 9.7 mg/dL Normal 7.6-11.0 [facility] Comment on above: Performed By: #### L 500.2500, L100.0100 #### [facility] [address] [place], [address] Chloride [Moles/Vol] 106 mmol/L Normal 98-108 [facility] Comment on above: Performed By: #### L 500.2500, L100.0100 #### [facility] [address] [place], [address] CO2 [Moles/Vol] 25.5 mmol/L Normal 21.0-32.0 [facility] Comment on above: Performed By: #### L 500.2500, L100.0100 #### [facility] [address] [place], [address] Creatinine [Mass/Vol] 0.84 mg/dL Normal 0.70-1.20 [facility] Comment on above: Performed By: #### L 500.2500, L100.0100 #### [facility] [address] [place], [address] GAP 11 Normal -15 [facility] Comment on above: Performed By: #### L 500.2500, L100.0100 #### [facility] [address] [place], [address] GFR/1.73 sq M.predicted among non-blacks MDRD (S/P/Bld) [Vol rate/Area] 72 mL/min/{1.73_m2} Normal >60 [facility] Comment on above: Result Comment: mL/m in/1.73m2 CKD-EPI Creatinine Equation (2020) Performed By: #### L 500.2500, L100.0100 #### [facility] [address] [place], [address] Glucose [Mass/Vol] 145 mg/dL High 70-99 [facility] Comment on above: Performed By: #### L 500.2500, L100.0100 #### [facility] [address] [place], [address] Potassium [Moles/Vol] 4.6 mmol/L Normal 3.3-5.1 [facility] Comment on above: Performed By: #### L 500.2500, L100.0100 #### [facility] [address] [place], [address] Sodium [Moles/Vol] 142 mmol/L Normal 133-145 [facility] Comment on above: Performed By: #### L 500.2500, L100.0100 #### [facility] [address] [place], [address] Urea nitrogen [Mass/Vol] 24 mg/dL High 4-19 [facility] Comment on above: Performed By: #### L 500.2500, L100.0100 #### [facility] [address] [place], [address] Basophil percentageOrdered B y: Lena Thorne on 06-15-2024 Basophils/100 WBC (Bld) 0.4 % 0-1 [facility] CBC W/Diff, Automatedon 04-3 0-2024 Absolute Lymph 1.74 X10 3/uL Normal 0.83-4.51 [facility] Comment on above: Performed By: #### L 500.2500, L100.0100 #### [facility] [address] [place], [address] Absolute Neut 4.2 X10 3/uL Normal 2.0-7.7 [facility] Comment on above: Performed By: #### L 500.2500, L100.0100 #### [facility] [address] [place], [address] Basophils/100 WBC (Bld) 0.4 % Normal 0-1 [facility] Comment on above: Performed By: #### L 500.2500, L100.0100 #### [facility] [address] [place], [address] Eosinophils/100 WBC (Bld) 1.9 % Normal 0-5 [facility] Comment on above: Performed By: #### L 500.2500, L100.0100 #### [facility] [address] [place], [address] Erythrocyte distribution width (RBC) [Ratio] 13.5 % Normal 11.6-14.6 [facility] Comment on above: Performed By: #### L 500.2500, L100.0100 #### [facility] [address] [place], [address] Hematocrit (Bld) [Volume fraction] 41.6 % Normal 37-47 [facility] Comment on above: Performed By: #### L 500.2500, L100.0100 #### [facility] [address] [place], [address] Hemoglobin (Bld) [Mass/Vol] 13.3 g/dL Normal 12.0-15.0 [facility] Comment on above: Performed By: #### L 500.2500, L100.0100 #### [facility] [address] [place], [address] IG% 0.300 Normal 0.0-0.9 [facility] Comment on above: Result Comment: IG% - Immature Granulocytes (promyelocytes, myelocytes and metamyelocytes) > 1% indicates that a LEFT SHIFT is Present. Performed By: #### L 500.2500, L100.0100 #### [facility] [address] [place], [address] Lymphocytes/100 WBC (Bld) 25.9 % Normal 19-41 [facility] Comment on above: Performed By: #### L 500.2500, L100.0100 #### [facility] [address] [place], [address] MCH (RBC) [Entitic mass] 28.3 pg Normal 27.0-32.0 [facility] Comment on above: Performed By: #### L 500.2500, L100.0100 #### [facility] [address] [place], [address] MCHC (RBC) [Mass/Vol] 32.0 g/dL Normal 32-36 [facility] Comment on above: Performed By: #### L 500.2500, L100.0100 #### [facility] [address] [place], [address] MCV (RBC) [Entitic vol] 88.5 fL Normal 81-99 [facility] Comment on above: Performed By: #### L 500.2500, L100.0100 #### [facility] [address] [place], [address] Monocytes/100 WBC (Bld) 8.5 % Normal 0-10 [facility] Comment on above: Performed By: #### L 500.2500, L100.0100 #### [facility] [address] [place], [address] Neutrophils/100 WBC (Bld) 63.0 % Normal 47-70 [facility] Comment on above: Performed By: #### L 500.2500, L100.0100 #### [facility] [address] [place], [address] Nucleated RBC (Bld) [#/Vol] 0 10*3/uL Normal 0-5 [facility] Comment on above: Performed By: #### L 500.2500, L100.0100 #### [facility] [address] [place], [address] Platelet mean volume (Bld) [Entitic vol] 11.2 fL Normal 6.2-12.0 [facility] Comment on above: Performed By: #### L 500.2500, L100.0100 #### [facility] [address] [place], [address] Platelets (Bld) [#/Vol] 212 10*3/uL Normal 150-450 [facility] Comment on above: Performed By: #### L 500.2500, L100.0100 #### [facility] [address] [place], [address] RBC (Bld) [#/Vol] 4.70 10*6/uL Normal 4.2-5.4 [facility] Comment on above: Performed By: #### L 500.2500, L100.0100 #### [facility] [address] [place], [address] RDW SD 43.8 fl Normal 35.1-43.9 [facility] Comment on above: Performed By: #### L 500.2500, L100.0100 #### [facility] [address] [place], [address] WBC (Bld) [#/Vol] 6.7 10*3/uL Normal 4.4-11.0 [facility] Comment on above: Performed By: #### L 500.2500, L100.0100 #### [facility] [place], [address] Carbon dioxide, total [Moles /volume] in Central venous bloodOrdered By: Lena Thorne on 06-15-2024 CO2 [Moles/Vol] 25.5 mmol/L 21.0-32.0 [facility] Chloride assayOrdered By: Ruben Thorne on 06-15-2024 Chloride [Moles/Vol] 106 mmol/L 98-108 [facility] Eosinophil percentageOrdered By: Lena Thorne on 06-15-2024 Eosinophils/100 WBC (Bld) 1.9 % 0-5 [facility] Erythrocyte distribution wid th ratioOrdered By: [facility]ames Th[facility] on 06-15-2024 Erythrocyte distribution width (RBC) [Ratio] 13.5 % 11.6-14.6 [facility] Erythrocyte distribution wid th standard deviationOrdered By: natikingsburyjames Thorne on 06-15-2024 Erythrocyte distribution width (RBC) [Ratio] 43.8 fl 35.1-43.9 [facility] Glomerular filtration rate ( GFR) estimation/1.73 sq m using serum, plasma, or whole bOrdered By: Lena Thorne on 06-15-2024 GFR/1.73 sq M.predicted among non-blacks MDRD (S/P/Bld) [Vol rate/Area] 72 mL/min/{1.73_m2} >60 [facility] Comment on above: mL/min/1.73m2 CKD-EP I Creatinine Equation (2020) Hematocrit Auto (Bld) [Volum e fraction]Ordered By: Lena Thorne on 06-15-2024 Hematocrit (Bld) [Volume fraction] 41.6 % 37-47 [facility] Hemoglobin measurementOrdere d By: Lena Thorne on 06-15-2024 Hemoglobin (Bld) [Mass/Vol] 13.3 g/dL 12.0-15.0 [facility] Immature granulocytes/100 WB C Auto (Bld)Ordered By: Lena Thorne on 06-15-2024 Immature granulocytes/100 WBC (Bld) 0.300 % 0.0-0.9 [facility] Comment on above: IG% - Immature Granu locytes (promyelocytes, myelocytes and metamyelocytes) > 1% indicates that a LEFT SHIFT is Present. Internal Medicine Office Vis iton 06-15-2024 Internal Medicine Office Visit [facility] [address] [place] [address] [place] [address] OFFICE VISIT Date of Service: 06/15/24 MR#: [id number] Acct: [id number] Name: SHEYLA RAMIREZ Rep #: [id number] : 1945 Provider: Dr. 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 Normal [facility] MCV (mean corpuscular volume ) determinationOrdered By: Lena Thorne on 06-15-2024 MCV (RBC) [Entitic vol] 88.5 fL 81-99 [facility] Mean corpuscular hemoglobin (MCH) determinationOrdered By: Lena Thorne on 06-15-2024 MCH (RBC) [Entitic mass] 28.3 pg 27.0-32.0 [facility] Mean corpuscular hemoglobin concentration (MCHC) determinationOrdered By: Lena Thorne on 06-15-2024 MCHC (RBC) [Mass/Vol] 32.0 g/dL 32-36 [facility] Mean platelet volume determi nationOrdered By: Lena Thorne on 06-15-2024 Platelet mean volume (Bld) [Entitic vol] 11.2 fL 6.2-12.0 [facility] Monocyte percentageOrdered B y: Lena Thorne on 06-15-2024 Monocytes/100 WBC (Bld) 8.5 % 0-10 [facility] Neutrophil percentageOrdered By: Lena Thorne on 06-15-2024 Neutrophils/100 WBC (Bld) 63.0 % 47-70 [facility] Nucleated red blood cell per centageOrdered By: Lena Thorne on 06-15-2024 Nucleated RBC/100 WBC (Bld) [Ratio] 0 % 0-5 [facility] Platelet countOrdered By: Ruben Thorne on 06-15-2024 Platelets (Bld) [#/Vol] 212 10*3/uL 150-450 [facility] Potassium measurement (mass/ volume)Ordered By: Lena Thorne on 06-15-2024 Potassium (Unsp spec) [Mass/Vol] 4.6 mmol/L 3.3-5.1 [facility] RBC Auto (Bld) [#/Vol]Ordere d By: Lena Thorne on 06-15-2024 RBC (Bld) [#/Vol] 4.70 10*6/uL 4.2-5.4 [facility] Serum creatinine measurement (mass/volume)Ordered By: Lena Thorne on 06-15-2024 Creatinine [Mass/Vol] 0.84 mg/dL 0.70-1.20 [facility] Serum glucose measurement (m ass/volume)Ordered By: Lena Thorne on 06-15-2024 Glucose [Mass/Vol] 145 mg/dL High 70-99 [facility] Serum or plasma calcium brice urement (mass/volume)Ordered By: Lena Thorne on 06-15-2024 Calcium [Mass/Vol] 9.7 mg/dL 7.6-11.0 [facility] Serum or plasma urea nitroge n measurement (mass/volume)Ordered By: Lena Thorne on 06-15-2024 Urea nitrogen [Mass/Vol] 24 mg/dL High 4-19 [facility] Sodium levelOrdered By: Missy Thorne on 06-15-2024 Sodium [Moles/Vol] 142 mmol/L 133-145 [facility] White blood cell (WBC) count Ordered By: Lena Thorne on 06-15-2024 WBC (Bld) [#/Vol] 6.7 10*3/uL 4.4-11.0 [facility] Endocrinology Visit Reporton 04-05-2024 Endocrinology Visit Report [facility] [address] [facility] [address] [facility] [place] [address] OFFICE VISIT Date of Service: 04/05/24 MR#: [id number] Acct: [id number] Name: SHEYLA RAMIREZ Rep #: [id number] : 1945 Provider: Omar Miller Age/Sex: 78/F Location: [facility] [place] Status: Signed Intake Vital [...] ea 04/05/24 04/05/24 Rx (FreeStyle Wilfredo 3 [place]) Have you fallen in the past year?: [...] glimepiride. She (more content not included)... Normal [facility] - Hematology and Cell countsOrdered By: Sylvester Bhakta on 04-05-2024 HbA1c (Bld) [Mass fraction] 7.8 % High 4.2-6.3 [facility] Medicine Office Vis mike 03-09-2024 Internal Medicine Office Visit [facility] [address] [place] [address] [address] [place], [place] [id number] OFFICE VISIT Date of Service: 03/09/24 MR#: [id number] Acct: [id number] Name: SHEYLA RAMIREZ Rep #: [id number] : 1945 Provider: Dr. 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 [facility] 36on 02-19-2024 36 Sounds good, thanks. Normal [facility] 36 Symptoms present for about a [...] few weeks to see if it helps [place] [address] How long has this been going on? [...] symptoms that should resolve with medical therapy. [facility] 36 LAPAROSCOPIC HIATAL HERNIA REPAIR, WITH [...] cannot. -not taking any medication currently Normal [facility] 36 Patient left Voicemail stating that she needs a return call to schedule an appt as she is having some problems since her Lap HH Repair with Dr Kruse on 09/09/2023. Patient did not state exactly what issues she was having. May need to return call and get the specifics. DP Normal [facility] Endocrinology Visit Reporton 01-05-2024 Endocrinology Visit Report [facility] [address] [place] [address] OFFICE VISIT Date of Service: 01/05/24 MR#: [id number] Acct: [id number] Name: SHEYLA RAMIREZ Rep #: [id number] : 1945 Provider: Omar Miller Age/Sex: 78/F Location: [facility] [place] Status: Signed Intake Vital [...] ea 01/05/24 01/05/24 Rx (FreeStyle [place]fredo 3 [place]) blood-glucose sensor (FreeStyle #6 ea 01/05/24 01/05/24 [...] @ 15:[address] 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 Normal [facility] Office Visiton 10-30-2023 Follow-up visit [id number] Sheyla Ramirez 1945 F Date Provider Department Center 10/30/2023 37823-UAOYYKUSHEJULIAN KRUSE [facility] None Family History Family Status - Relation Status Age at Mother Father Level of Service:98589 SD POSTOP FOLLOW UP VISIT RELATED TO ORIGINAL PX Reason for Visit and Comments: Post-op [483] - 09/02/2023 CALEB Cuenca [facility] Progress Noteon 10-30-2023 Progress Note [facility] - Surgery Patient Name: Sheyla Ramirez Date: [...] times daily. cholecalciferol (Vitamin D-3) 1.25 MG (87507 UT) capsule Take by mouth 1 (one) [...] VITAMIN PO Take by mouth. nystatin (Mycostatin) 107373 UNIT/ML suspension Swish and spit 5 mL [...] (Gastroenterology) Autumn Worley RN as Registered Nurse (Instrumentation And Controls Technician Manager) Vitor Camarillo (Cardiology) [facility] 36on 10-02-2023 36 Spoke with patient [...] and will call with any further concerns. [facility] 36 ----- Message from Julian Kruse MD sent at 09/25/2023 5:24 PM EDT ----- Please call her at the end of next week to make sure she is advancing her diet, she is choosing not to eat because she wants to keep her sugars under control. Hopefully she will advance her diet as we discussed today. [facility] Progress Noteon 09-28-2023 Progress Note Chart reviewed. 30-day [facility] Transition of Care post-hospital discharge on 08/25/23 [...] a 77 y.o. female who presented to [facility] on 09/09/2023 for elective bariatric [...] Commonly known as: AlphaGAN cholecalciferol 1.25 MG (19380 UT) capsule Commonly known as: Vitamin D-3 [...] Your Medications These medications were sent to [facility] [address] [place] [address] Hours: Thursday to Thursday 10 am to [...] SIGNED: Wilber Coto MD 09/10/23 1:05 PM [facility] Office Visiton 09-25-2023 Follow-up visit [id number] Sheyla Ramirez 1945 F Date Provider Department Center 09/25/2023 [id number] KRUSE [facility] ALS None Family History Family Status - Relation Status Age at Mother Father Level of Service:59287 SD POSTOP FOLLOW UP VISIT RELATED TO ORIGINAL PX Reason for Visit and Comments: Post-op [483] - POST OP 09/02/2023 CALEB [facility] Progress Noteon 09-25-2023 Progress Note [facility] - Surgery Patient Name: Sheyla [...] times daily. cholecalciferol (Vitamin D-3) 1.25 MG (64999 UT) capsule Take by mouth 1 (one) [...] 17 g by mouth daily. nystatin (Mycostatin) 796609 UNIT/ML suspension Swish and spit 5 mL [...] without esophagitis Other orders - nystatin (Mycostatin) 354685 UNIT/ML suspension; Swish and spit 5 mL [...] (Gastroenterology) Autumn Worley RN as Registered Nurse (Instrumentation And Controls Technician Manager) Vitor Camarillo (Cardiology) [facility] Progress Noteon 09-23-2023 Progress Note EMR reviewed. Patient is enrolled in 30-day [facility] Transition of Care Ambulatory program post-hospital discharge on 08/25/23 Dx: Abdominal pain. Patient had elective bariatric surgical procedure (HH repair) at [facility] on 09/09/2023 was discharged POD 1 09/10/23. Transition call made unable to reach patient call ended message read unavailable. CM to close case 09/28/23 program will be completed. 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 No EMR reviewed. Patient is enrolled in 30-day [facility] Transition of Care Ambulatory program post-hospital discharge on 08/25/23 Dx: Abdominal pain. Patient had elective bariatric surgical procedure (HH repair) at [facility] on 09/09/2023 was discharged POD 1 09/10/23. CM outreach completed patient reports doing okay feels like improves daily continuing to take it easy has follow up post op discharge on 09/25/23 at 1115. Patient appreciative for call. CM to continue to follow. 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 female who presented to [facility] on 09/09/2023 for elective bariatric [...] START taking (more content not included)... Normal [facility] BASIC METABOLIC PANELon 07-2 -2023 Anion gap [Moles/Vol] 6 mmol/L Normal 3-13 [facility] Comment on above: Performed By: #### L AB15 ####Millinery Salesperson: KELLI CHILDS ([phone])[facility])[address] [place] [address] Calcium [Mass/Vol] 8.7 mg/dL Normal 8.4-10.4 [facility] Comment on above: Performed By: #### L AB15 ####Millinery Salesperson: KELLI CHILDS ([phone])[facility] ([facility])[address] [place] [address] Chloride [Moles/Vol] 106 mmol/L Normal 98-107 [facility] Comment on above: Performed By: #### L AB15 ####Millinery Salesperson: KELLI CHILDS ([phone])[facility] ([facility])[address] [place] [address] CO2 [Moles/Vol] 24 mmol/L Normal 22-30 [facility] Comment on above: Performed By: #### L AB15 ####Millinery Salesperson: KELLI CHILDS ([phone])[facility] ([facility])[address] [place] [address] Creatinine [Mass/Vol] 0.53 mg/dL Normal 0.52-1.04 [facility] Comment on above: Performed By: #### L AB15 ####Millinery Salesperson: KELLI CHILDS ([phone])[facility])[address] [place] [address] GLOMERULAR FILTRATION RATE ML/MIN/1.73 SQ M.PREDICTED >90.0 Normal >60.0 [facility] Comment on above: Result Comment: Calc ulation based on the Chronic Kidney Disease Epidemiology Collaboration (CKD-EPI) equation refit without adjustment for race Performed By: #### L AB15 ####Millinery Salesperson: KELLI CHILDS ([phone])[facility])[address] [place] [address] Glucose [Mass/Vol] 177 mg/dL High 70-100 [facility] Comment on above: Performed By: #### L AB15 ####Millinery Salesperson: KELLI CHILDS ([phone])[facility])[address] [place] [address] Potassium [Moles/Vol] 4.2 mmol/L Normal 3.5-5.1 [facility] Comment on above: Performed By: #### L AB15 ####Millinery Salesperson: KELLI CHILDS ([phone])[facility])[address] [place] [address] Sodium [Moles/Vol] 136 mmol/L Normal 135-145 [facility] Comment on above: Performed By: #### L AB15 ####Millinery Salesperson: KELLI CHILDS ([phone])[facility])[address] [place] [address] Urea nitrogen [Mass/Vol] 11 mg/dL Normal 7-17 [facility] Comment on above: Performed By: #### L AB15 ####Millinery Salesperson: KELLI CHILDS ([phone])[facility])[address] [place] [address] Basic metabolic 1998 panelon 09-10-2023 Anion gap [Moles/Vol] 6 mmol/L 3 - 13 mmol/L [facility] Calcium [Mass/Vol] 8.7 mg/dL 8.4 - 10. 4 mg/dL [facility] Chloride [Moles/Vol] 106 mmol/L 98 - 10 7 mmol/L [facility] CO2 [Moles/Vol] 24 mmol/L 22 - 30 mmol/L [facility] Creatinine [Mass/Vol] 0.53 mg/dL 0.52 - 1.04 mg/dL [facility] GFR/1.73 sq M.predicted MDRD (S/P/Bld) [Vol rate/Area] - PINF [facility] Comment on above: Calculation based on the Chronic Kidney Disease Epidemiology Collaboration (CKD-EPI) equation refit without adjustment for race Glucose [Mass/Vol] 177 mg/dL High 70 - 100 mg/dL [facility] Interpretation and review of laboratory results Abnormal [facility] Potassium [Moles/Vol] 4.2 mmol/L 3.5 - 5.1 mmol/L [facility] Sodium [Moles/Vol] 136 mmol/L 135 - 145 mmol/L [facility] Urea nitrogen [Mass/Vol] 11 mg/dL 7 - 17 mg/d L [facility] CARECOORDon 09-10-2023 [facility] Care Managment Initial Assessment Date: 09/10/2023 Patient Name: Sheyla Ramirez : 1945 Patient Information Source of Information: Patient Cognition/Language: WFL - Within Functional Limits Permission given to speak with patient containers sales representative/careg iver as indicated: Confirmation of Payer with patient/family: Yes Payer Name: Medicare [place]: No Confirmation of Primary Care Physician: Confirmed [...] Living Prescription Coverage: Yes [facility] [place] Medication Management: Independent Transportation/Shopp ing: Independent Transportation [...] needs from tcc. Ania Box RN Normal [facility] CBC (HEMOGRAM)on 09-10-2023 Erythrocyte distribution width (RBC) [Ratio] 13.2 % Normal 11.5-15.0 [facility] Comment on above: Performed By: #### L AB294 ####Millinery Salesperson: KELLI CHILDS ([phone])[address] Hematocrit (Bld) [Volume fraction] 35.5 % Normal 35.0-47.0 [facility] Comment on above: Performed By: #### L AB294 ####Millinery Salesperson: KELLI CHILDS ([phone])[address] Hemoglobin (Bld) [Mass/Vol] 11.7 g/dL Normal 11.7-16.0 [facility] Comment on above: Performed By: #### L AB294 ####Millinery Salesperson: KELLI CHILDS ([phone])[address] MCH (RBC) [Entitic mass] 28.9 pg Normal 26.0-34.0 [facility] Comment on above: Performed By: #### L AB294 ####Millinery Salesperson: KELLI [phone])[address] MCHC 33.0 % Normal 30.5-36.0 [facility] Comment on above: Performed By: #### L AB294 ####Millinery Salesperson: KELLI CHILDS ([phone])[facility])[address] [place] [address] MCV (RBC) [Entitic vol] 87.7 fL Normal 77.0-99.0 S [facility] Comment on above: Performed By: #### L AB294 ####Millinery Salesperson: KELLI CHILDS ([phone])[facility])[address] [place] [address] Platelet mean volume (Bld) [Entitic vol] 10.9 fL Normal 9.0-12.7 [facility] Comment on above: Performed By: #### L AB294 ####Millinery Salesperson: KELLI CHILDS ([phone])[facility] ([facility])[address] [place] [address] Platelets (Bld) [#/Vol] 202 10*3/uL Normal 140-440 [facility] Comment on above: Performed By: #### L AB294 ####Millinery Salesperson: KELLI CHILDS ([phone])[facility])[address] [place] [address] RBC (Bld) [#/Vol] 4.05 10*6/uL Normal 3.80-5.20 [facility] Comment on above: Performed By: #### L AB294 ####Millinery Salesperson: KELLI CHILDS ([phone])[facility])[address] [place] [address] WBC (Bld) [#/Vol] 11.0 10*3/uL High 3.6-10.7 [facility] Comment on above: Performed By: #### L AB294 ####Millinery Salesperson: KELLI CHILDS ([phone])[facility])[address] [place] [address] CBC panel Auto (Bld)on 09-09 Erythrocyte distribution width (RBC) [Ratio] 13.2 % 11.5 - 15.0 % [facility] Hematocrit (Bld) [Volume fraction] 35.5 % 35.0 - 47.0 % [facility] Hemoglobin (Bld) [Mass/Vol] 11.7 g/dL 11.7 - 16.0 g/dL [facility] Interpretation and review of laboratory results Abnormal [facility] MCH (RBC) [Entitic mass] 28.9 pg 26. 0 - 34.0 pg [facility] MCHC (RBC) [Mass/Vol] 33.0 % 30.5 - 36.0 % [facility] MCV (RBC) [Entitic vol] 87.7 fL 77.0 - 99.0 fL [facility] Platelet mean volume (Bld) [Entitic vol] 10.9 fL 9.0 - 12.7 fL [facility] Platelets (Bld) [#/Vol] 202 10*3/uL 140 - 440 10*3/uL [facility] RBC (Bld) [#/Vol] 4.05 10*6/uL 3.80 - 5.2 0 10*6/uL [facility] WBC (Bld) [#/Vol] 11.0 10*3/uL High 3.6 - 10.7 10*3/uL [facility] ECG 12-LEADon 09-10-2023 ECG 12-LEAD IMPRESSION: Sinus rhythm LVH by voltage Inferior infarct, age indeterminate Electronically Signed On 09-10-2023 08:40:10 EDT by Man Celestin Normal [facility] IDNon 09-10-2023 IDN The patient is The patient's goals for the shift include The clinical goals for the shift include Over the shift, the patient did not make progress toward the following goals. Barriers to progression include . Recommendations to address these barriers include . Normal [facility] IDN The patient is The patient's goals for the shift include The clinical goals for the shift include Over the shift, the patient did not make progress toward the following goals. Barriers to progression include . Recommendations to address these barriers include . Normal [facility] Laboratory - Chemistry and C hemistry - challengeon 09-10-2023 Glucose [Mass/Vol] 203 mg/dL High 70 - 100 mg/dL [facility] Glucose [Mass/Vol] 149 mg/dL High 70 - 100 mg/dL [facility] No Panel Informationon 09-09 Interpretation and review of laboratory results Abnormal [employer] Performed by: [employer] [facility], [address] [place] [address] CLIA ID: [id number] [employer] [facility] Interpretation and review of laboratory results Abnormal [employer] [facility] Performed by: [employer] [facility], [address] [facility] [place] [address] CLIA ID: [id number] [facility] [employer] [facility] Sinus rhythm LVH by voltage Inferior infarct, age indeterminate Electronically Signed On 09-10-2023 08:40:10 EDT by Man Celestin Man Godoy MD - 09/10/2023 IMPRESSION: Sinus rhythm LVH by voltage Inferior infarct, age indeterminate Electronically Signed On 09-10-2023 08:40:10 EDT by Man Celestin [facility] No Panel InformationOrdered By: Man Celestin on 09-10-2023 P [place] 57 degrees [employer] Work Phone: [phone] SD Interval 148 ms [employer] Work Phone: QRS [place] -7 degrees [employer] Work Phone: QRSD Interval 76 ms [employer] Work Phone: [phone] QT Interval 346 ms [employer] [facility] Work Phone: QTC Interval 393 ms [employer] [facility] Work Phone: T Wave [place] -8 degrees [employer] Work Phone: [employer] [facility] Work Phone: [phone] Progress Noteon 09-10-2023 Progress Note Negative Normal [employer] [facility] Progress Note Attestation signed by Julian Kruse MD at 09/10/2023 11:11 AM [facility] [place] Patient Name: Sheyla Ramirez Date: 09/10/23 MIS-General Surgery/Bariatric Progress Note Subjective: The patient is doing well, postoperative day #1 from [facility]. No nausea, vomiting, or adverse events [...] MD 09/10/2023, 11:11 AM [facility] Patient Name: Sheyla Ramirez [...] 18 95 (more content not included)... Normal [employer] [facility] Vital signsOrdered By: Man Celestin on 09-10-2023 Heart rate 77 /min bpm [employer] Work Phone: XR Abdomen and RF Gastrointe stinal tract upper W contrast Diony 09-10-2023 Changes consistent with Toupet fundoplication. No extravasation or obstruction. Report Dictated on Electronically Signed By: Kit Patel MD Electronically Signed Date/Time: 09/10/2023 11:06 AM EDT [facility] [employer] Patient Name: SHEYLA RAMIREZ : 1945 [...] contrast emptying into the duodenum without obstruction. [facility] Kit Patel MD - 09/10/2023 Patient [...] Electronically Signed Date/Time: 09/10/2023 11:06 AM EDT [facility] Radiology Study observation (narrative) [facility] XR Abdomen and RF Gastrointe stinal tract upper W contrast POOrdered By: Kit Ptael on 09-10-2023 [facility] BASIC METABOLIC PANELon 08-17 Anion gap [Moles/Vol] 12 mmol/L Normal 3-13 [facility] Comment on above: Performed By: #### L AB15 ####Millinery Salesperson: KELLI CHILDS ([phone])[facility] ([facility])[address] [place] [address] Calcium [Mass/Vol] 8.9 mg/dL Normal 8.4-10.4 [facility] Comment on above: Performed By: #### L AB15 ####Millinery Salesperson: KELLI CHILDS ([phone])[facility] ([facility])[address] [place] [address] [place] Chloride [Moles/Vol] 105 mmol/L Normal 98-107 [facility] Comment on above: Performed By: #### L AB15 ####Millinery Salesperson: KELLI CHILDS ([phone])[facility] ([facility])[address] [place] [address] CO2 [Moles/Vol] 18 mmol/L Low 22-30 [facility] Comment on above: Performed By: #### L AB15 ####Millinery Salesperson: KELLI CHILDS ([phone])[facility] ([facility])[address] [place] [address] Creatinine [Mass/Vol] 0.54 mg/dL Normal 0.52-1.04 [facility] Comment on above: Performed By: #### L AB15 ####Millinery Salesperson: KELLI CHILDS ([phone])[facility])[address] [place] [address] GLOMERULAR FILTRATION RATE ML/MIN/1.73 SQ M.PREDICTED >90.0 Normal >60.0 [facility] Comment on above: Result Comment: Calc ulation based on the Chronic Kidney Disease Epidemiology Collaboration (CKD-EPI) equation refit without adjustment for race Performed By: #### L AB15 ####Millinery Salesperson: KELLI CHILDS ([phone])[facility] ([facility])[address] [place] [address] Glucose [Mass/Vol] 301 mg/dL High 70-100 [facility] Comment on above: Performed By: #### L AB15 ####Millinery Salesperson: KELLI CHILDS ([phone])[facility])[address] [place] [address] Potassium [Moles/Vol] 4.0 mmol/L Normal 3.5-5.1 [facility] Comment on above: Performed By: #### L AB15 ####Millinery Salesperson: KELLI CHILDS ([phone])[facility])[address] [place] [address] [place] Sodium [Moles/Vol] 135 mmol/L Normal 135-145 [facility] Comment on above: Performed By: #### L AB15 ####Millinery Salesperson: KELLI CHILDS ([phone])[facility])[address] [place] [address] Urea nitrogen [Mass/Vol] 20 mg/dL High 7-17 [facility] Comment on above: Performed By: #### L AB15 ####Millinery Salesperson: KELLI CHILDS ([phone])[facility] [place] [address] [place] Basic metabolic 1998 panelon 09-09-2023 Anion gap [Moles/Vol] 12 mmol/L 3 - 13 mmol/L [facility] Calcium [Mass/Vol] 8.9 mg/dL 8.4 - 10. 4 mg/dL [facility] Chloride [Moles/Vol] 105 mmol/L 98 - 10 7 mmol/L [facility] CO2 [Moles/Vol] 18 mmol/L Low 22 - 30 mmol/L [facility] Creatinine [Mass/Vol] 0.54 mg/dL 0.52 - 1.04 mg/dL [facility] GFR/1.73 sq M.predicted MDRD (S/P/Bld) [Vol rate/Area] - PINF [facility] Comment on above: Calculation based on the Chronic Kidney Disease Epidemiology Collaboration (CKD-EPI) equation refit without adjustment for race Glucose [Mass/Vol] 301 mg/dL High 70 - 100 mg/dL [facility] Interpretation and review of laboratory results Abnormal [facility] Potassium [Moles/Vol] 4.0 mmol/L 3.5 - 5.1 mmol/L [facility] Sodium [Moles/Vol] 135 mmol/L 135 - 145 mmol/L [facility] Urea nitrogen [Mass/Vol] 20 mg/dL High 7 - 17 mg/d L [facility] HEMOGLOBIN AND HEMATOCRIT, B LOODon 09-09-2023 Hematocrit (Bld) [Volume fraction] 35.2 % Normal 35.0-47.0 [facility] Comment on above: Performed By: #### L AB753 ####Millinery Salesperson: KELLI CHILDS ([phone])[facility] ([facility])[address] [place] [address] [place] Hemoglobin (Bld) [Mass/Vol] 11.2 g/dL Low 11.7-16.0 [facility] Comment on above: Performed By: #### L AB753 ####Millinery Salesperson: KELLI CHILDS ([phone])[facility] [place] [address] [place] Hemoglobin (Bld) [Mass/Vol]o n 09-09-2023 Hematocrit (Bld) [Volume fraction] 35.2 % 35.0 - 47.0 % [facility] Interpretation and review of laboratory results Abnormal [facility] Laboratory - Chemistry and C hemistry - challengeon 09-09-2023 Glucose [Mass/Vol] 183 mg/dL High 70 - 100 mg/dL [facility] Glucose [Mass/Vol] 286 mg/dL High 70 - 100 mg/dL [facility] Glucose [Mass/Vol] 246 mg/dL High 70 - 100 mg/dL [facility] Glucose [Mass/Vol] 239 mg/dL High 70 - 100 mg/dL [facility] Glucose [Mass/Vol] 275 mg/dL High 70 - 100 mg/dL [facility] Glucose [Mass/Vol] 155 mg/dL High 70 - 100 mg/dL [facility] Laboratory - Hematology and Cell countson 09-09-2023 Hemoglobin (Bld) [Mass/Vol] 11.2 g/dL Low 11.7 - 16.0 g/dL [facility] No Panel Informationon 09-08 Interpretation and review of laboratory results Abnormal [facility] Performed by: [facility], [address] [place], [place] [id number] CLIA ID: [id number] [facility] Interpretation and review of laboratory results Abnormal [facility] Performed by: [facility], [address] [place] [address] CLIA ID: [id number] [facility] Interpretation and review of laboratory results Abnormal [facility] Performed by: [facility], [address] [place] [address] CLIA ID: [id number] [facility] Interpretation and review of laboratory results Abnormal [facility] Performed by: [facility], [address] [place] [address] CLIA ID: [id number] [facility] Interpretation and review of laboratory results Abnormal [facility] Performed by: [facility], [address] [place] [address] CLIA ID: [id number] [facility] Interpretation and review of laboratory results Abnormal [facility] [facility] Performed by: [facility], [address] [place] [address] CLIA ID: [id number] [facility] Nursing Noteon 09-09-2023 Nursing Note Updated family Normal [facility] Op Noteon 09-09-2023 Op Note [facility] - Surgery [facility] Physicians Surgery Patient Name: Sheyla Ramirez OPERATIVE NOTE DATE OF PROCEDURE: 09/09/2023 SURGEON: Julian Kruse MD STONE GLUER: Татьяна Muñiz PA-C PREOPERATIVE DIAGNOSIS: Symptomatic Hiatal [...] into the abdomen by 5 cm. A [place] drain was used to provide appropriate retraction. [...] the left and right awa around the 50-[place] bougie reapproximating the posterior defect created by the right and left posterior crural columns. At this point, because of the defect, a piece of biologic mesh was selected. A piece of [employer]Cell Gentrix Hiatal was utilized, rehydrated according to air traffic systems technician's recommendations and introduced into the abdomen. It [...] PA-C was asked to serve as the visitor services assistant for this procedure. [facility] Progress Noteon 09-09-2023 Progress Note Preop blood glucose 155 [facility] Progress Noteon 09-04-2023 Progress Note Chart reviewed enrolled in 30-day [facility] Transition of Care Ambulatory program post-hospital discharge on 08/25/23 Dx: Abdominal pain. 2nd transitions call made introduced self and role. Patient reports doing fine denies any health questions or concerns reports did start her Metformin 500 mg twice a day. CM to schedule future outreach. [facility] Progress Noteon 08-28-2023 Progress Note Chart reviewed enrolled in 30-day [facility] Transition of [facility] Ambulatory program post-hospital discharge on 08/25/23 Dx: Abdominal pain. Unable to reach patient lvm CM to schedule future outreach. [facility] 36on 08-25-2023 36 PAT canceled [facility] 36 Cardiac ECHO & stress test performed on 08/18 obtained and reviewed - normal. Cardiac clearance obtained. Spoke to patient and let her know that she does NOT need to proceed with PAT tomorrow and we will cancel that appointment. Proceed with office appointment with Dr. Ceballos on Thursday. [facility] 36 ----- Message from Julian Kruse MD sent at 08/24/2023 4:54 PM EDT ----- Sha -she was admitted this weekend, I anticipate her going home on Thursday. She states that she had a stress test and other cardiac workup at [place], please see if you can find results in [facility]. She had an EGD with anesthesia [...] we did, she does not use MyChart [facility] CARECOORDon 08-25-2023 CARECOORD Pt did have bm. Plan for discharge to home today. She denies any needs from tcc. [facility] CARECOORD Patient had bowel movement yesterday Denies any abdominal pain, nausea, vomiting No chest pain, shortness of breath Afebrile, vital signs stable Accu-Cheks reviewed No lab data from today Plan DC home today Endocrinology team recommended to discontinue Ozempic. Recommended to continue glimepiride, started metformin 500 mg p.o. twice daily at the time of discharge. Full discharge summary to follow Normal [facility] IDNon 08-25-2023 IDN Problem: Pain - [...] and maintained or improved Outcome: Progressing Normal [facility] Laboratory - Chemistry and C hemistry - challengeon 08-25-2023 Glucose [Mass/Vol] 129 mg/dL High 70 - 100 mg/dL [facility] No Panel Informationon 08-24 Interpretation and review of laboratory results Abnormal [facility] Performed by: [facility], [address] [place] [address] CLIA ID: [id number] [facility] 36on 08-24-2023 [address] hunt office , fax#: [phone]. Normal [facility] 36 Ana , can you please attach the following on [facility] letter head and fax to the following number [phone] . Thanks [address] Dr Bhakta , I am writing about mutual patient Sheyla Santo 1945 who was seen by me at [facility] when she was hospitalized for partial [...] for your reference. Thanks Juliette Vásquez MD [facility] Endocrinology Phone number: [phone] [facility] IDNon 08-24-2023 IDN Problem: Pain - [...] and maintained or improved Outcome: Progressing Normal [facility] Laboratory - Chemistry and C hemistry - challengeon 08-24-2023 Glucose [Mass/Vol] 161 mg/dL High 70 - 100 mg/dL [facility] Glucose [Mass/Vol] 123 mg/dL High 70 - 100 mg/dL [facility] Glucose [Mass/Vol] 158 mg/dL High 70 - 100 mg/dL [facility] Glucose [Mass/Vol] 132 mg/dL High 70 - 100 mg/dL [facility] No Panel Informationon 08-23 Interpretation and review of laboratory results Abnormal [facility] Performed by: [facility], [address] [place] [address] CLIA ID: [id number] [facility] Interpretation and review of laboratory results Abnormal [facility] Performed by: [facility], [address] [place] [address] CLIA ID: [id number] [facility] Interpretation and review of laboratory results Abnormal [facility] Performed by: [facility], [address] [place] [address] CLIA ID: [id number] [facility] Interpretation and review of laboratory results Abnormal [facility] Performed by: [facility], [address] [place] [address] CLIA ID: [id number] [facility] Progress Noteon 08-24-2023 Progress Note Department of Internal Medicine Division of Endocrinology, Diabetes, & Metabolism Endocrinology Note Patient Name: Sheyla Ramirez : 1945 AGE: 77 y.o. [facility]: [facility] A Admission Date: 08/21/2023 Visit Date: 08/24/2023 Reason for Endocrine Consult: dm-managed on ozempic , due to have hiatal hernia surgery soon. Admitted with GI dysmotility Provider/Team Requesting Consult: surgery PCP: LENA [employer] Radiation Technician: Yes Dr Sylvester Bhakta ASSESSMENT: Type 2 diabetes with hyperglycemia without group home insulin use Concern for partial large bowel [...] friend would like to follow up with [facility] endocrine until her hernia surgery later this month. She follows with endocrine Dr Bhakta in [place] but will not be able to see her until next month and would like to have endocrine on board in [facility] in the meantime. Phone number for endocrine [...] Julian Kruse MD at 08/24/2023 4:53 PM [facility] Medical [facility] - Surgery [facility] Physicians Surgery Patient Name: Sheyla Ramirez [...] Range Status (more content not included)... Normal [facility] CBC (HEMOGRAM)on 08-23-2023 Erythrocyte distribution width (RBC) [Ratio] 13.2 % Normal 11.5-15.0 [facility] Comment on above: Performed By: #### L [id number] ####Millinery Salesperson: KELLI CHILDS ([phone])[facility])[address] [place] [address] Hematocrit (Bld) [Volume fraction] 37.1 % Normal 35.0-47.0 [facility] Comment on above: Performed By: #### L AB294 ####Millinery Salesperson: KELLI CHILDS ([phone])[facility])[address] [place] [address] Hemoglobin (Bld) [Mass/Vol] 11.9 g/dL Normal 11.7-16.0 [facility] Comment on above: Performed By: #### L [id number] ####Millinery Salesperson: KELLI CHILDS ([phone])[facility])[address] [place] [address] MCH (RBC) [Entitic mass] 28.5 pg Normal 26.0-34.0 [facility] Comment on above: Performed By: #### L AB294 ####Millinery Salesperson: KELLI CHILDS ([phone])[facility])[address] [place] [address] MCHC 32.1 % Normal 30.5-36.0 [facility] Comment on above: Performed By: #### L AB294 ####Millinery Salesperson: KELLI CHILDS ([phone])[facility])[address] [place] [address] MCV (RBC) [Entitic vol] 88.8 fL Normal 77.0-99.0 S [facility] Comment on above: Performed By: #### L [id number] ####Millinery Salesperson: KELLI CHILDS ([phone])[facility])[address] [place] [address] Platelet mean volume (Bld) [Entitic vol] 10.3 fL Normal 9.0-12.7 [facility] Comment on above: Performed By: #### L [id number] ####Millinery Salesperson: KELLI CHILDS ([phone])[facility])[address] [place] [address] Platelets (Bld) [#/Vol] 158 10*3/uL Normal 140-440 [facility] Comment on above: Performed By: #### L [id number] ####Millinery Salesperson: KELLI CHILDS ([phone])[facility])[address] [place] [address] RBC (Bld) [#/Vol] 4.18 10*6/uL Normal 3.80-5.20 [facility] Comment on above: Performed By: #### L AB294 ####Millinery Salesperson: KELLI CHILDS ([phone])[facility])[address] [place] [address] WBC (Bld) [#/Vol] 5.9 10*3/uL Normal 3.6-10.7 [facility] Comment on above: Performed By: #### L AB294 ####Millinery Salesperson: KELLI CHILDS ([phone])[facility])[address] [place] [address] CBC panel Auto (Bld)on 08-22 Erythrocyte distribution width (RBC) [Ratio] 13.2 % 11.5 - 15.0 % [facility] Hematocrit (Bld) [Volume fraction] 37.1 % 35.0 - 47.0 % [facility] Hemoglobin (Bld) [Mass/Vol] 11.9 g/dL 11.7 - 16.0 g/dL [facility] Interpretation and review of laboratory results Normal [facility] MCH (RBC) [Entitic mass] 28.5 pg 26. 0 - 34.0 pg [facility] MCHC (RBC) [Mass/Vol] 32.1 % 30.5 - 36.0 % [facility] MCV (RBC) [Entitic vol] 88.8 fL 77.0 - 99.0 fL [facility] Platelet mean volume (Bld) [Entitic vol] 10.3 fL 9.0 - 12.7 fL [facility] Platelets (Bld) [#/Vol] 158 10*3/uL 140 - 440 10*3/uL [facility] RBC (Bld) [#/Vol] 4.18 10*6/uL 3.80 - 5.2 0 10*6/uL [facility] WBC (Bld) [#/Vol] 5.9 10*3/uL 3.6 - 10.7 10*3/uL [facility] COMPREHENSIVE METABOLIC PANE Elder 08-23-2023 Albumin [Mass/Vol] 3.4 g/dL Low 3.5-5.0 [facility] Comment on above: Performed By: #### L AB17, [id number] ####Millinery Salesperson: KELLI CHILDS ([phone])[address] ALP [Catalytic activity/Vol] 65 U/L Normal 38-126 [facility] Comment on above: Performed By: #### L AB17, [id number] ####Millinery Salesperson: KELLI CHILDS ([phone])[facility] ([facility])[address] [place] [address] ALT [Catalytic activity/Vol] 20 U/L Normal 0-34 [facility] Comment on above: Performed By: #### L AB17, [id number] ####Millinery Salesperson: KELLI CHILDS ([phone])[facility])[address] [place] [address] Anion gap [Moles/Vol] 8 mmol/L Normal 3-13 [facility] Comment on above: Performed By: #### L AB17, [id number] ####Millinery Salesperson: KELLI CHILDS ([phone])[facility])[address] [place] [address] AST [Catalytic activity/Vol] 23 U/L Normal 15-46 [facility] Comment on above: Performed By: #### L AB17, [id number] ####Millinery Salesperson: KELLI CHILDS ([phone])[facility] ([facility])[address] [place] [address] Bilirubin [Mass/Vol] 0.6 mg/dL Normal 0.2-1.3 [facility] Comment on above: Performed By: #### L AB17, [id number] ####Millinery Salesperson: KELLI CHILDS ([phone])[facility] ([facility])[address] [place] [address] Calcium [Mass/Vol] 9.2 mg/dL Normal 8.4-10.4 [facility] Comment on above: Performed By: #### L AB17, [id number] ####Millinery Salesperson: KELLI CHILDS ([phone])[facility] ([facility])[address] [place] [address] [place] Chloride [Moles/Vol] 108 mmol/L High 98-107 [facility] Comment on above: Performed By: #### L AB17, [id number] ####Millinery Salesperson: KELLI CHILDS ([phone])[facility] ([facility])[address] [place] [address] [place] CO2 [Moles/Vol] 23 mmol/L Normal 22-30 [facility] Comment on above: Performed By: #### L AB17, [id number] ####Millinery Salesperson: KELLI CHILDS ([phone])[facility] ([facility])[address] [place] [address] [place] Creatinine [Mass/Vol] 0.58 mg/dL Normal 0.52-1.04 [facility] Comment on above: Performed By: #### L AB17, [id number] ####Millinery Salesperson: KELLI CHILDS ([phone])[facility] ([facility])[address] [place] [address] GLOMERULAR FILTRATION RATE ML/MIN/1.73 SQ M.PREDICTED >90.0 Normal >60.0 [facility] Comment on above: Result Comment: Calc ulation based on the Chronic Kidney Disease Epidemiology Collaboration (CKD-EPI) equation refit without adjustment for race Performed By: #### L AB17, [id number] ####Millinery Salesperson: KELLI CHILDS ([phone])[facility])[address] [place] [address] Glucose [Mass/Vol] 96 mg/dL Normal 70-100 [facility] Comment on above: Performed By: #### L AB17, [id number] ####Millinery Salesperson: KELLI CHILDS ([phone])[facility])[address] [place] [address] Potassium [Moles/Vol] 4.0 mmol/L Normal 3.5-5.1 [facility] Comment on above: Performed By: #### L AB17, [id number] ####Millinery Salesperson: KELLI CHILDS ([phone])[facility])[address] [place] [address] Protein [Mass/Vol] 6.0 g/dL Low 6.3-8.2 [facility] Comment on above: Performed By: #### L AB17, [id number] ####Millinery Salesperson: KELLI CHILDS ([phone])[facility])[address] [place] [address] Sodium [Moles/Vol] 138 mmol/L Normal 135-145 [facility] Comment on above: Performed By: #### L AB17, [id number] ####Millinery Salesperson: KELLI CHILDS ([phone])[facility])[address] [place] [address] [place] Urea nitrogen [Mass/Vol] 8 mg/dL Normal 7-17 [facility] Comment on above: Performed By: #### L AB17, [id number] ####Millinery Salesperson: KELLI CHILDS ([phone])[facility])[address] [place] [address] Comprehensive metabolic 1998 panelon 08-23-2023 Albumin [Mass/Vol] 3.4 g/dL Low 3.5 - 5.0 g/dL [facility] ALP [Catalytic activity/Vol] 65 U/L 38 - 126 U/L [facility] ALT [Catalytic activity/Vol] 20 U/L 0 - 34 U/L [facility] Anion gap [Moles/Vol] 8 mmol/L 3 - 13 mmol/L [facility] AST [Catalytic activity/Vol] 23 U/L 15 - 46 U/L [facility] Bilirubin [Mass/Vol] 0.6 mg/dL 0.2 - 1 .3 mg/dL [facility] Calcium [Mass/Vol] 9.2 mg/dL 8.4 - 10. 4 mg/dL [facility] Chloride [Moles/Vol] 108 mmol/L High 98 - 10 7 mmol/L [facility] CO2 [Moles/Vol] 23 mmol/L 22 - 30 mmol/L [facility] Creatinine [Mass/Vol] 0.58 mg/dL 0.52 - 1.04 mg/dL [facility] GFR/1.73 sq M.predicted MDRD (S/P/Bld) [Vol rate/Area] - PINF [facility] Comment on above: Calculation based on the Chronic Kidney Disease Epidemiology Collaboration (CKD-EPI) equation refit without adjustment for race Glucose [Mass/Vol] 96 mg/dL 70 - 100 mg/dL [facility] Interpretation and review of laboratory results Abnormal [facility] Potassium [Moles/Vol] 4.0 mmol/L 3.5 - 5.1 mmol/L [facility] Protein [Mass/Vol] 6.0 g/dL Low 6.3 - 8.2 g/dL [facility] Sodium [Moles/Vol] 138 mmol/L 135 - 145 mmol/L [facility] Urea nitrogen [Mass/Vol] 8 mg/dL 7 - 17 mg/d L [facility] Consulton 08-23-2023 Consult Department of Internal Medicine Division of Endocrinology, Diabetes, & Metabolism Endocrinology Note Patient Name: Sheyla Ramirez : 1945 AGE: 77 y.o. [facility] A Admission Date: 08/21/2023 Visit Date: 08/23/2023 Reason for Endocrine Consult: dm-managed on ozempic , due to have hiatal hernia surgery soon. Admitted with GI dysmotility Provider/Team Requesting Consult: surgery PCP: LENA THORNE [employer] Radiation Technician: Yes Dr Sylvester Bhakta ASSESSMENT: Type 2 diabetes with hyperglycemia without oil heaterman insulin use Concern for partial large bowel [...] before breakfast (more content not included)... Normal [facility] IDNon 08-23-2023 IDN Problem: Pain [...] and maintained or improved Outcome: Progressing Normal [facility] Laboratory - Chemistry and C hemistry - challengeon 08-23-2023 Glucose [Mass/Vol] 170 mg/dL High 70 - 100 mg/dL [facility] Glucose [Mass/Vol] 143 mg/dL High 70 - 100 mg/dL [facility] Glucose [Mass/Vol] 133 mg/dL High 70 - 100 mg/dL [facility] TSH Qn 1.130 m[IU]/L [facility] Glucose [Mass/Vol] 101 mg/dL High 70 - 100 mg/dL [facility] No Panel Informationon 08-22 Interpretation and review of laboratory results Abnormal [facility] Performed by: [facility], [address] [place] [address] CLIA ID: [id number] [facility] Interpretation and review of laboratory results Abnormal [facility] Performed by: [facility], [address] [place] [address] CLIA ID: [id number] [facility] Interpretation and review of laboratory results Abnormal [facility] Performed by: [facility], [address] [place] [address] CLIA ID: [id number] [facility] Interpretation and review of laboratory results Abnormal [facility] Performed by: [facility], [address] [place] [address] CLIA ID: [id number] [facility] Progress Noteon 08-23-2023 Progress Note Nutrition rescreen completed. Patient referred to the Dietitian. A1C 8.4; Uncontrolled DM. Normal [facility] THYROID STIMULATING HORMONEo n 08-23-2023 THYROID STIMULATING HORMONE 1.130 uIU/mL Normal 0.465-4.680 [facility] Comment on above: Performed By: #### L AB17, [id number] ####[employer] Salesperson: KELLI CHILDS ([phone])[facility] ([facility])[address] [place] [address] [place] TSH Qnon 08-23-2023 Interpretation and review of laboratory results Normal [facility] BASIC METABOLIC PANELon 07- Anion gap [Moles/Vol] 10 mmol/L Normal 3-13 [facility] Comment on above: Performed By: #### L AB15 ####Millinery Salesperson: KELLI CHILDS ([phone])[facility] ([facility])[address] [place] [address] Calcium [Mass/Vol] 8.7 mg/dL Normal 8.4-10.4 [facility] Comment on above: Performed By: #### L AB15 ####Mill[employer] Salesperson: KELLI CHILDS ([phone])[facility] ([facility])[address] [place] [address] [place] Chloride [Moles/Vol] 106 mmol/L Normal 98-107 [facility] Comment on above: Performed By: #### L AB15 ####Mill[employer] Salesperson: KELLI CHILDS ([phone])[facility] ([facility])[address] [place] [address] [place] CO2 [Moles/Vol] 22 mmol/L Normal 22-30 [facility] Comment on above: Performed By: #### L AB15 ####Millinery Salesperson: KELLI [phone])[facility] ([facility])[address] [place] [address] Creatinine [Mass/Vol] 0.63 mg/dL Normal 0.52-1.04 [facility] Comment on above: Performed By: #### L AB15 ####Millinery Salesperson: KELLI [phone])[facility])[address] [place] [address] GLOMERULAR FILTRATION RATE ML/MIN/1.73 SQ M.PREDICTED >90.0 Normal >60.0 [facility] Comment on above: Result Comment: Calc ulation based on the Chronic Kidney Disease Epidemiology Collaboration (CKD-EPI) equation refit without adjustment for race Performed By: #### L AB15 ####[employer] Salesperson: KELLI CHILDS ([phone])[facility] ([facility])[address] [place] [address] Glucose [Mass/Vol] 175 mg/dL High 70-100 [facility] Comment on above: Performed By: #### L AB15 ####Mill[employer] Salesperson: KELLI CHILDS ([phone])[facility])[address] [place] [address] Potassium [Moles/Vol] 3.7 mmol/L Normal 3.5-5.1 [facility] Comment on above: Performed By: #### L AB15 ####[employer] Salesperson: KELLI CHILDS ([phone])[facility] ([facility])[address] [place] [address] Sodium [Moles/Vol] 137 mmol/L Normal 135-145 [facility] Comment on above: Performed By: #### L AB15 ####[employer] Salesperson: KELLI CHILDS ([phone])[facility])[address] [place] [address] Urea nitrogen [Mass/Vol] 10 mg/dL Normal 7-17 [facility] Comment on above: Performed By: #### L AB15 ####[employer] Salesperson: KELLI CHILDS ([phone])[facility])[address] [place] [address] Basic metabolic 1998 panelon 08-22-2023 Anion gap [Moles/Vol] 10 mmol/L 3 - 13 mmol/L [facility] Calcium [Mass/Vol] 8.7 mg/dL 8.4 - 10. 4 mg/dL [facility] Chloride [Moles/Vol] 106 mmol/L 98 - 10 7 mmol/L [facility] CO2 [Moles/Vol] 22 mmol/L 22 - 30 mmol/L [facility] Creatinine [Mass/Vol] 0.63 mg/dL 0.52 - 1.04 mg/dL [facility] GFR/1.73 sq M.predicted MDRD (S/P/Bld) [Vol rate/Area] - PINF [facility] Comment on above: Calculation based on the Chronic Kidney Disease Epidemiology Collaboration (CKD-EPI) equation refit without adjustment for race Glucose [Mass/Vol] 175 mg/dL High 70 - 100 mg/dL [facility] Interpretation and review of laboratory results Abnormal [facility] Potassium [Moles/Vol] 3.7 mmol/L 3.5 - 5.1 mmol/L [facility] [facility] Sodium [Moles/Vol] 137 mmol/L 135 - 145 mmol/L [facility] Urea nitrogen [Mass/Vol] 10 mg/dL 7 - 17 mg/d L [facility] CARECOORDon 08-22-2023 [facility] Initial Assessment Date: 08/22/2023 Patient Name: Sheyla Ramirez : 1945 Patient Information Source of Information: Patient Cognition/Language: WFL - Within Functional Limits Permission given to speak with patient containers sales representative/careg iver as indicated: No Confirmation of Payer with patient/family: Yes Payer Name: Medicare [place]: No Confirmation of Primary Care Physician: Confirmed [...] agrees with plan. Lizbeth Valdez RN Normal [facility] CBC W Auto Differential pane l (Bld)Ordered By: Dion Hernandez on 08-22-2023 Basophils (Bld) [#/Vol] 0.0 10*3/uL 0.0 - 0.2 10*3/uL [facility] Basophils/100 WBC (Bld) 0.5 % 0.0 - 2.0 % [facility] Eosinophils (Bld) [#/Vol] 0.1 10*3/uL 0.0 - 0.5 10*3/uL [facility] Eosinophils/100 WBC (Bld) 1.7 % 0.0 - 6.0 % [facility] Erythrocyte distribution width (RBC) [Ratio] 13.1 % 11.5 - 15.0 % [facility] Hematocrit (Bld) [Volume fraction] 37.5 % 35.0 - 47.0 % [facility] Hemoglobin (Bld) [Mass/Vol] 11.8 g/dL 11.7 - 16.0 g/dL [facility] Immature granulocytes (Bld) [#/Vol] 0.0 10*3/uL NINF - 0.1 10*3/uL [facility] Immature granulocytes/100 WBC (Bld) 0.3 % 0.0 - 2.0 % [facility] Interpretation and review of laboratory results Normal [facility] Lymphocytes (Bld) [#/Vol] 2.6 10*3/uL 1.0 - 4.3 10*3/uL [facility] Lymphocytes/100 WBC (Bld) 44.0 % 15.0 - 45.0 % [facility] MCH (RBC) [Entitic mass] 27.8 pg 26. 0 - 34.0 pg [facility] MCHC (RBC) [Mass/Vol] 31.5 % 30.5 - 36.0 % [facility] MCV (RBC) [Entitic vol] 88.2 fL 77.0 - 99.0 fL [facility] Monocytes (Bld) [#/Vol] 0.5 10*3/uL 0.0 - 0.9 10*3/uL [facility] Monocytes/100 WBC (Bld) 8.1 % 5.0 - 13.0 % [facility] Neutrophils (Bld) [#/Vol] 2.7 10*3/uL 1.8 - 7.5 10*3/uL [facility] Neutrophils/100 WBC (Bld) 45.4 % 38.0 - 82.0 % [facility] Nucleated RBC/100 WBC (Bld) [Ratio] 0.0 % [facility] Platelet mean volume (Bld) [Entitic vol] 10.6 fL 9.0 - 12.7 fL [facility] Platelets (Bld) [#/Vol] 165 10*3/uL 140 - 440 10*3/uL [facility] RBC (Bld) [#/Vol] 4.25 10*6/uL 3.80 - 5.2 0 10*6/uL [facility] WBC (Bld) [#/Vol] 5.9 10*3/uL 3.6 - 10.7 10*3/uL [facility] CBC WITH AUTO DIFFERENTIALon 08-22-2023 Basophils (Bld) [#/Vol] 0.0 10*3/uL Normal 0.0-0.2 [facility] Comment on above: Performed By: #### L [id number] ####Millinery Salesperson: KELLI CHILDS ([phone])[facility] ([facility])[address] [place] [address] Basophils/100 WBC (Bld) 0.5 % Normal 0.0-2.0 [facility] Comment on above: Performed By: #### L [id number] ####Millinery Salesperson: KELLI CHILDS ([phone])[facility] ([facility])[address] [place] [address] [place] Eosinophils (Bld) [#/Vol] 0.1 10*3/uL Normal 0.0-0.5 [facility] Comment on above: Performed By: #### L [id number] ####Millinery Salesperson: KELLI CHILDS ([phone])[facility])[address] [place] [address] Eosinophils/100 WBC (Bld) 1.7 % Normal 0.0-6.0 [facility] Comment on above: Performed By: #### L [id number] ####Millinery Salesperson: KELLI CHILDS ([phone])[facility])[address] [place] [address] Erythrocyte distribution width (RBC) [Ratio] 13.1 % Normal 11.5-15.0 [facility] Comment on above: Performed By: #### L [id number] ####Millinery Salesperson: KELLI CHILDS ([phone])[address] Hematocrit (Bld) [Volume fraction] 37.5 % Normal 35.0-47.0 [facility] Comment on above: Performed By: #### L [id number] ####Millinery Salesperson: KELLI CHILDS ([phone])[address] Hemoglobin (Bld) [Mass/Vol] 11.8 g/dL Normal 11.7-16.0 [facility] Comment on above: Performed By: #### L [id number] ####Millinery Salesperson: KELLI CHILDS ([phone])[facility])[address] [place] [address] IMMATURE GRANS % 0.3 % Normal 0.0-2.0 [facility] Comment on above: Performed By: #### L [id number] ####Millinery Salesperson: KELLI CHILDS ([phone])[address] IMMATURE GRANS ABSOLUTE 0.0 10*3/uL Normal <0.1 [facility] Comment on above: Performed By: #### L [id number] ####Millinery Salesperson: KELLI CHILDS ([phone])[facility])[address] [place] [address] Lymphocytes (Bld) [#/Vol] 2.6 10*3/uL Normal 1.0-4.3 [facility] Comment on above: Performed By: #### L [id number] ####Millinery Salesperson: KELLI CHILDS ([phone])[facility])[address] [place] [address] Lymphocytes/100 WBC (Bld) 44.0 % Normal 15.0-45.0 [facility] Comment on above: Performed By: #### L [id number] ####Millinery Salesperson: KELLI CHILDS ([phone])[facility])[address] [place] [address] MCH (RBC) [Entitic mass] 27.8 pg Normal 26.0-34.0 [facility] Comment on above: Performed By: #### L [id number] ####Millinery Salesperson: KELLI CHILDS ([phone])[facility])[address] [place] [address] MCHC 31.5 % Normal 30.5-36.0 [facility] Comment on above: Performed By: #### L [id number] ####Millinery Salesperson: KELLI CHILDS ([phone])[facility])[address] [place] [address] MCV (RBC) [Entitic vol] 88.2 fL Normal 77.0-99.0 [facility] Comment on above: Performed By: #### L [id number] ####Millinery Salesperson: KELLI CHILDS ([phone])[facility])[address] [place] [address] Monocytes (Bld) [#/Vol] 0.5 10*3/uL Normal 0.0-0.9 [facility] Comment on above: Performed By: #### L [id number] ####Millinery Salesperson: KELLI CHILDS ([phone])[facility])[address] [place] [address] Monocytes/100 WBC (Bld) 8.1 % Normal 5.0-13.0 [facility] Comment on above: Performed By: #### L [id number] ####Millinery Salesperson: KELLI CHILDS ([phone])[facility] ([facility])[address] [place] [address] NEUTROPHILS ABSOLUTE 2.7 10*3/uL Normal 1.8-7.5 [facility] Comment on above: Performed By: #### L [id number] ####Millinery Salesperson: KELLI CHILDS ([phone])[facility] ([facility])[address] [place] [address] Neutrophils/100 WBC (Bld) 45.4 % Normal 38.0-82.0 [facility] Comment on above: Performed By: #### L [id number] ####Millinery Salesperson: KELLI CHILDS ([phone])[facility] ([facility])[address] [place] [address] NRBC 0.0 /100 WBCs Normal 0.0-2.0 [facility] Comment on above: Performed By: #### L [id number] ####Millinery Salesperson: KELLI CHILDS ([phone])[facility] ([facility])[address] [place] [address] Platelet mean volume (Bld) [Entitic vol] 10.6 fL Normal 9.0-12.7 [facility] Comment on above: Performed By: #### L [id number] ####Millinery Salesperson: KELLI CHILDS ([phone])[facility] ([facility])[address] [place] [address] [place] Platelets (Bld) [#/Vol] 165 10*3/uL Normal 140-440 [facility] Comment on above: Performed By: #### L [id number] ####Millinery Salesperson: KELLI CHILDS ([phone])[facility] ([facility])[address] [place] [address] [place] RBC (Bld) [#/Vol] 4.25 10*6/uL Normal 3.80-5.20 [facility] Comment on above: Performed By: #### L [id number] ####Millinery Salesperson: KELLI CHILDS ([phone])[facility] ([facility])[address] [place] [address] WBC (Bld) [#/Vol] 5.9 10*3/uL Normal 3.6-10.7 [facility] Comment on above: Performed By: #### L [id number] ####Millinery Salesperson: KELLI CHILDS ([phone])[facility] ([facility])[address] [place] [address] IDNon 08-22-2023 IDN Problem: Pain - Adult [...] and maintained or improved Outcome: Progressing Normal [facility] IDN The patient is Moderately Stable [...] and maintained or improved Outcome: Progressing Normal [facility] Laboratory - Chemistry and C hemistry - challengeon 08-22-2023 Glucose [Mass/Vol] 113 mg/dL High 70 - 100 mg/dL [facility] Glucose [Mass/Vol] 197 mg/dL High 70 - 100 mg/dL [facility] Glucose [Mass/Vol] 115 mg/dL High 70 - 100 mg/dL [facility] Glucose [Mass/Vol] 61 mg/dL Low 70 - 100 mg/dL [facility] Glucose [Mass/Vol] 91 mg/dL 70 - 100 mg/dL [facility] Glucose [Mass/Vol] 157 mg/dL High 70 - 100 mg/dL [facility] Glucose [Mass/Vol] 64 mg/dL Low 70 - 100 mg/dL [facility] Average glucose Estimated from glycated hemoglobin (Bld) [Mass/Vol] 194 mg/dL [facility] Laboratory - Hematology and Cell countson 08-22-2023 HbA1c (Bld) [Mass fraction] 8.4 % High NINF - 5.7 % [facility] Comment on above: Normal less than 5.7 % Prediabetes 5.7% to 6.4% Diabetes 6.5% or higher --HgbA1C levels may not be accurate in patients who have renal disease, received recent blood transfusions, are anemic, or who have dyshemoglobinemia. No Panel Informationon 08-21 Interpretation and review of laboratory results Abnormal [facility] Performed by: [facility], [address] [place] [address] CLIA ID: [id number] [facility] Interpretation and review of laboratory results Abnormal [facility] Performed by: [facility], [address] [place] [address] CLIA ID: [id number] [facility] Interpretation and review of laboratory results Abnormal [facility] Performed by: [facility], [address] [place] [address] CLIA ID: [id number] [facility] Interpretation and review of laboratory results Abnormal [facility] Performed by: [facility], [address] [place] [address] CLIA ID: [id number] [facility] Interpretation and review of laboratory results Normal [facility] Performed by: [facility], [address] [place] [address] CLIA ID: [id number] [facility] Interpretation and review of laboratory results Abnormal [facility] Performed by: [facility], [address] [place] [address] CLIA ID: [id number] [facility] Interpretation and review of laboratory results Abnormal [facility] Performed by: [facility], [address] [place] [address] CLIA ID: [id number] [facility] Interpretation and review of laboratory results Abnormal [facility] Progress Noteon 08-22-2023 Progress Note No anastomotic stricture present on flex sig Results d/w patient Recommend GI work-up for other causes Colorectal surgery will sign off Please page with questions Val Chan MD Normal [facility] Progress Note Attestation signed by Val [...] for pa (more content not included)... Normal [facility] US ABDOMEN COMPLETEon 2023 US ABDOMEN [...] Electronically Signed Date/Time: 08/22/2023 1:15 PM EDT [facility] US Abdomenon 08-22-2023 1. No cholelithiasis or evidence of acute cholecystitis. 2. Mild dilatation of the common bile duct measuring up to 9 mm. Recommend correlation with LFTs for evidence of obstruction. MRI/MRCP could be considered for further evaluation. Report Dictated on Electronically Signed By: Zi Simms DR Electronically Signed Date/Time: 08/22/2023 1:15 PM EDT [facility] Name[facility] 1945 [id number] Exam Date/Time: 08/22/2023 13:08 Procedure: US ABDOMEN [...] aorta and IVC are normal in caliber. [facility] Zi Simms MD - 08/22/2023 Patient [...] Electronically Signed Date/Time: 08/22/2023 1:15 PM EDT [facility] Radiology Study observation (narrative) [facility] alth US AbdomenOrdered By: Zi Simms on 08-22-2023 [facility] Work Phone: [phone] 08-21-2023 36 Called pt back and relayed message below. Verbalized understanding [facility] 36 Spoke to vmware consultant physician, recommend proceeding through ER, thanks. [facility] 36 [address] Bowser. [...] will be in the car together) Normal [facility] BASIC METABOLIC PANELon 07-0 Anion gap [Moles/Vol] 9 mmol/L Normal 3-13 [facility] Comment on above: Performed By: #### L AB15, LAB20, LAB99 ####Mill[employer] Salesperson: KELLI CHILDS ([phone])[facility])[address] [place] [address] Calcium [Mass/Vol] 9.6 mg/dL Normal 8.4-10.4 [facility] Comment on above: Performed By: #### L AB15, LAB20, LAB99 ####[employer] Salesperson: KELLI CHILDS ([phone])[facility])[address] [place] [address] [place] Chloride [Moles/Vol] 104 mmol/L Normal 98-107 [facility] Comment on above: Performed By: #### L AB15, LAB20, LAB99 ####Mill[employer] Salesperson: KELLI CHILDS ([phone])[facility])[address] [place] [address] [place] CO2 [Moles/Vol] 26 mmol/L Normal 22-30 [facility] Comment on above: Performed By: #### L AB15, LAB20, LAB99 ####Mill[employer] Salesperson: KELLI CHILDS ([phone])[facility])[address] [place] [address] Creatinine [Mass/Vol] 0.66 mg/dL Normal 0.52-1.04 [facility] Comment on above: Performed By: #### L AB15, LAB20, LAB99 ####Millinery Salesperson: KELLI CHILDS ([phone])[facility])[address] [place] [address] GLOMERULAR FILTRATION RATE ML/MIN/1.73 SQ M.PREDICTED >90.0 Normal >60.0 [facility] Comment on above: Result Comment: Calc ulation based on the Chronic Kidney Disease Epidemiology Collaboration (CKD-EPI) equation refit without adjustment for race Performed By: #### L AB15, LAB20, LAB99 ####Mill[employer] Salesperson: KELLI CHILDS ([phone])[facility] ([facility])[address] [place] [address] Glucose [Mass/Vol] 115 mg/dL High 70-100 [facility] Comment on above: Performed By: #### L AB15, LAB20, LAB99 ####Millinery Salesperson: KELLI CHILDS ([phone])[facility])[address] [place] [address] Potassium [Moles/Vol] 4.2 mmol/L Normal 3.5-5.1 [facility] Comment on above: Performed By: #### L AB15, LAB20, LAB99 ####Millinery Salesperson: KELLI CHILDS ([phone])[facility] ([facility])[address] [place] [address] Sodium [Moles/Vol] 138 mmol/L Normal 135-145 [facility] Comment on above: Performed By: #### L AB15, LAB20, LAB99 ####Mill[employer] Salesperson: KELLI CHILDS ([phone])[facility])[address] [place] [address] Urea nitrogen [Mass/Vol] 14 mg/dL Normal 7-17 [facility] Comment on above: Performed By: #### L AB15, LAB20, LAB99 ####Mill[employer] Salesperson: KELLI CHILDS ([phone])[facility])[address] [place] [address] Basic metabolic 1998 panelon 08-21-2023 Anion gap [Moles/Vol] 9 mmol/L 3 - 13 mmol/L [facility] Calcium [Mass/Vol] 9.6 mg/dL 8.4 - 10. 4 mg/dL [facility] Chloride [Moles/Vol] 104 mmol/L 98 - 10 7 mmol/L [facility] CO2 [Moles/Vol] 26 mmol/L 22 - 30 mmol/L [facility] Creatinine [Mass/Vol] 0.66 mg/dL 0.52 - 1.04 mg/dL [facility] GFR/1.73 sq M.predicted MDRD (S/P/Bld) [Vol rate/Area] - PINF [facility] Comment on above: Calculation based on the Chronic Kidney Disease Epidemiology Collaboration (CKD-EPI) equation refit without adjustment for race Glucose [Mass/Vol] 115 mg/dL High 70 - 100 mg/dL [facility] Interpretation and review of laboratory results Abnormal [facility] Potassium [Moles/Vol] 4.2 mmol/L 3.5 - 5.1 mmol/L [facility] Sodium [Moles/Vol] 138 mmol/L 135 - 145 mmol/L [facility] Urea nitrogen [Mass/Vol] 14 mg/dL 7 - 17 mg/d L [facility] CBC W Auto Differential pane l (Bld)on 08-21-2023 Basophils (Bld) [#/Vol] 0.0 10*3/uL 0.0 - 0.2 10*3/uL [facility] Basophils/100 WBC (Bld) 0.5 % 0.0 - 2.0 % [facility] Eosinophils (Bld) [#/Vol] 0.0 10*3/uL 0.0 - 0.5 10*3/uL [facility] Eosinophils/100 WBC (Bld) 0.7 % 0.0 - 6.0 % [facility] Erythrocyte distribution width (RBC) [Ratio] 13.2 % 11.5 - 15.0 % [facility] Hematocrit (Bld) [Volume fraction] 43.2 % 35.0 - 47.0 % [facility] Hemoglobin (Bld) [Mass/Vol] 14.1 g/dL 11.7 - 16.0 g/dL [facility] Immature granulocytes (Bld) [#/Vol] 0.0 10*3/uL NINF - 0.1 10*3/uL [facility] Immature granulocytes/100 WBC (Bld) 0.3 % 0.0 - 2.0 % [facility] Interpretation and review of laboratory results Normal [facility] Lymphocytes (Bld) [#/Vol] 1.4 10*3/uL 1.0 - 4.3 10*3/uL [facility] Lymphocytes/100 WBC (Bld) 24.4 % 15.0 - 45.0 % [facility] MCH (RBC) [Entitic mass] 28.4 pg 26. 0 - 34.0 pg [facility] MCHC (RBC) [Mass/Vol] 32.6 % 30.5 - 36.0 % [facility] MCV (RBC) [Entitic vol] 87.1 fL 77.0 - 99.0 fL [facility] Monocytes (Bld) [#/Vol] 0.5 10*3/uL 0.0 - 0.9 10*3/uL [facility] Monocytes/100 WBC (Bld) 7.9 % 5.0 - 13.0 % [facility] Neutrophils (Bld) [#/Vol] 3.8 10*3/uL 1.8 - 7.5 10*3/uL [facility] Neutrophils/100 WBC (Bld) 66.2 % 38.0 - 82.0 % [facility] Nucleated RBC/100 WBC (Bld) [Ratio] 0.0 % [facility] Platelet mean volume (Bld) [Entitic vol] 10.3 fL 9.0 - 12.7 fL [facility] Platelets (Bld) [#/Vol] 190 10*3/uL 140 - 440 10*3/uL [facility] RBC (Bld) [#/Vol] 4.96 10*6/uL 3.80 - 5.2 0 10*6/uL [facility] WBC (Bld) [#/Vol] 5.7 10*3/uL 3.6 - 10.7 10*3/uL [facility] CBC WITH AUTO DIFFERENTIALon 08-21-2023 Basophils (Bld) [#/Vol] 0.0 10*3/uL Normal 0.0-0.2 [facility] Comment on above: Performed By: #### L [id number] ####[employer] Salesperson: KELLI CHILDS ([phone])[facility] ([address] Basophils/100 WBC (Bld) 0.5 % Normal 0.0-2.0 [facility] Comment on above: Performed By: #### L [id number] ####[employer] Salesperson: KELLI CHILDS ([phone])[facility])[address] [place] [address] Eosinophils (Bld) [#/Vol] 0.0 10*3/uL Normal 0.0-0.5 [facility] Comment on above: Performed By: #### L [id number] ####[employer] Salesperson: KELLI CHILDS ([phone])[facility])[address] [place] [address] Eosinophils/100 WBC (Bld) 0.7 % Normal 0.0-6.0 [facility] Comment on above: Performed By: #### L [id number] ####[employer] Salesperson: KELLI CHILDS ([phone])[facility])[address] [place] [address] Erythrocyte distribution width (RBC) [Ratio] 13.2 % Normal 11.5-15.0 [facility] Comment on above: Performed By: #### L [id number] ####[employer] Salesperson: KELLI CHILDS ([phone])[facility])[address] [place] [address] Hematocrit (Bld) [Volume fraction] 43.2 % Normal 35.0-47.0 [facility] Comment on above: Performed By: #### L [id number] ####[employer] Salesperson: KELLI CHILDS ([phone])[facility])[address] [place] [address] Hemoglobin (Bld) [Mass/Vol] 14.1 g/dL Normal 11.7-16.0 [facility] Comment on above: Performed By: #### L [id number] ####[employer] Salesperson: KELLI CHILDS ([phone])[facility])[address] [place] [address] IMMATURE GRANS % 0.3 % Normal 0.0-2.0 [facility] Comment on above: Performed By: #### L [id number] ####[employer] Salesperson: KELLI CHILDS ([phone])[facility])[address] [place] [address] IMMATURE GRANS ABSOLUTE 0.0 10*3/uL Normal <0.1 [facility] Comment on above: Performed By: #### L [id number] ####[employer] Salesperson: KELLI CHILDS ([phone])[facility])[address] [place] [address] Lymphocytes (Bld) [#/Vol] 1.4 10*3/uL Normal 1.0-4.3 [facility] Comment on above: Performed By: #### L [id number] ####[employer] Salesperson: KELLI CHILDS ([phone])[address] Lymphocytes/100 WBC (Bld) 24.4 % Normal 15.0-45.0 [facility] Comment on above: Performed By: #### L [id number] ####[employer] Salesperson: KELLI CHILDS ([phone])[facility])[address] [place] [address] MCH (RBC) [Entitic mass] 28.4 pg Normal 26.0-34.0 [facility] [facility] Comment on above: Performed By: #### L [id number] ####Millinery Salesperson: KELLI CHILDS ([phone])[facility])[address] [place] [address] MCHC 32.6 % Normal 30.5-36.0 [facility] Comment on above: Performed By: #### L [id number] ####Millinery Salesperson: KELLI CHILDS ([phone])[facility])[address] [place] [address] MCV (RBC) [Entitic vol] 87.1 fL Normal 77.0-99.0 S [facility] Comment on above: Performed By: #### L [id number] ####Millinery Salesperson: KELLI CHILDS ([phone])[facility])[address] [place] [address] Monocytes (Bld) [#/Vol] 0.5 10*3/uL Normal 0.0-0.9 [facility] Comment on above: Performed By: #### L [id number] ####Millinery Salesperson: KELLI CHILDS ([phone])[facility] ([facility])[address] [place] [address] Monocytes/100 WBC (Bld) 7.9 % Normal 5.0-13.0 [facility] Comment on above: Performed By: #### L [id number] ####Millinery Salesperson: KELLI CHILDS ([phone])[facility] ([facility])[address] [place] [address] NEUTROPHILS ABSOLUTE 3.8 10*3/uL Normal 1.8-7.5 [facility] Comment on above: Performed By: #### L [id number] ####Millinery Salesperson: KELLI CHILDS ([phone])[facility] ([facility])[address] [place] [address] Neutrophils/100 WBC (Bld) 66.2 % Normal 38.0-82.0 [facility] Comment on above: Performed By: #### L [id number] ####Millinery Salesperson: KELLI CHILDS ([phone])[facility] ([facility])[address] [place] [address] NRBC 0.0 /100 WBCs Normal 0.0-2.0 [facility] Comment on above: Performed By: #### L [id number] ####Millinery Salesperson: KELLI CHILDS ([phone])[facility] ([facility])[address] [place] [address] Platelet mean volume (Bld) [Entitic vol] 10.3 fL Normal 9.0-12.7 [facility] Comment on above: Performed By: #### L [id number] ####Millinery Salesperson: KELLI CHILDS ([phone])[facility] ([facility])[address] [place] [address] Platelets (Bld) [#/Vol] 190 10*3/uL Normal 140-440 [facility] Comment on above: Performed By: #### L [id number] ####Millinery Salesperson: KELLI CHILDS ([phone])[facility])[address] [place] [address] RBC (Bld) [#/Vol] 4.96 10*6/uL Normal 3.80-5.20 [facility] Comment on above: Performed By: #### L [id number] ####Millinery Salesperson: KELLI CHILDS ([phone])[facility] ([facility])[address] [place] [address] WBC (Bld) [#/Vol] 5.7 10*3/uL Normal 3.6-10.7 [facility] Comment on above: Performed By: #### L [id number] ####Millinery Salesperson: KELLI CHILDS ([phone])[address] ABDOMEN PELVIS W CONTRAST on [...] Electronically Signed Date/Time: 08/21/2023 5:35 PM EDT [facility] CT Abdomen and Pelvis W cont rast Jayla 08-21-2023 1. Findings suspicious for cholelithiasis. 2. No other acute findings or significant interval change. Please see above for further details. Report Dictated on Electronically Signed By: Rodríguez Franklin MD Electronically Signed Date/Time: 08/21/2023 5:35 PM EDT [facility] Name[facility] 1945 [id number] Exam Date/Time: 08/21/2023 16:58 Procedure: CT ABDOMEN [...] Electronically Signed Date/Time: 08/21/2023 5:35 PM EDT [facility] Radiology Study observation (narrative) [facility] alth CT Abdomen and Pelvis W cont rast IVOrdered By: Rodríguez Franklin on 08-21-2023 [facility] [employer] Work Phone: Consulton 08-21-2023 Consult Attestation signed [...] diverticulitis, (additional history below) who presents to [facility] ED with a chief complaint of [...] WBC 5.7 (more content not included)... Normal [facility] Consult Department of Surgery Surgical Service: [...] diverticulitis, (additional history below) who presents to [facility] ED with a chief complaint of [...] 08/22/2023 Performed by Val Chan MD at [facility] ENDOSCOPY SIGMOID COLECTOMY (HISTORICAL) 2010 [...] in sto (more content not included)... Normal [facility] ED Provider Noteon ED Provider Note Emergency Department Encounter [facility] Emergency Department Patient: Sheyla Ramirez [...] 08/22/2023 Performed by Val Chan MD at [facility] ENDOSCOPY SIGMOID COLECTOMY (HISTORICAL) 2010 [...] Mental Status: (more content not included)... Normal [facility] ED Provider Note Emergency Department Encounter [facility] EMERGENCY DEPT Patient: Sheyla Ramirez [...] dictating provider for clarification) Jayjay Fortune MD [facility] Jayjay Fortune MD 08/21/23 1838 [facility] ED Provider Note Emergency Department Encounter Location: [facility] EMERGENCY DEPT Patient: Sheyla Ramirez [...] [employer] SANTI Condon CNP 08/21/232036 Normal [facility] HEMOGLOBIN A1Con 08-21-2023 Glucose [Mass/Vol] 194 mg/dL Normal [facility] Comment on above: Order Comment: If no t done within the last 3 mos Performed By: #### L AB90 #### Millinery Salesperson: KELLI CHILDS ([phone]) [facility]) [address] [place] [address] HbA1c (Bld) [Mass fraction] 8.4 % High <5.7 [facility] Comment on above: Order Comment: If no t done within the last 3 mos Result Comment: Norm al less than 5.7% Prediabetes 5.7% to 6.4% Diabetes 6.5% or higher --HgbA1C levels may not be accurate in patients who have renal disease, received recent blood transfusions, are anemic, or who have dyshemoglobinemia. Performed By: #### L AB90 #### Mill[employer] Salesperson: KELLI CHILDS ([phone]) [facility]) [address] [place] [address] HEPATIC FUNCTION PANELon Albumin [Mass/Vol] 4.5 g/dL Normal 3.5-5.0 [facility] Comment on above: Performed By: #### L AB15, LAB20, LAB99 ####Mill[employer] Salesperson: KELLI CHILDS ([phone])[address] ALP [Catalytic activity/Vol] 83 U/L Normal 38-126 [facility] Comment on above: Performed By: #### L AB15, LAB20, LAB99 ####Millinery Salesperson: KELLI CHILDS ([phone])[facility])[address] [place] [address] ALT [Catalytic activity/Vol] 26 U/L Normal 0-34 [facility] Comment on above: Performed By: #### L AB15, LAB20, LAB99 ####Millinery Salesperson: KELLI CHILDS ([phone])[facility])[address] [place] [address] AST [Catalytic activity/Vol] 31 U/L Normal 15-46 [facility] Comment on above: Performed By: #### L AB15, LAB20, LAB99 ####Mill[employer] Salesperson: KELLI CHILDS ([phone])[facility] ([facility])[address] [place] [address] Bilirubin [Mass/Vol] 0.8 mg/dL Normal 0.2-1.3 [facility] Comment on above: Performed By: #### L AB15, LAB20, LAB99 ####Millinery Salesperson: KELLI CHILDS ([phone])[facility] ([facility])[address] [place] [address] Bilirubin.indirect [Mass/Vol] 0.0 mg/dL Normal 0.0-0.3 [facility] Comment on above: Performed By: #### L AB15, LAB20, LAB99 ####Millinery Salesperson: KELLI CHILDS ([phone])[facility] ([facility])[address] [place] [address] Protein [Mass/Vol] 7.7 g/dL Normal 6.3-8.2 [facility] Comment on above: Performed By: #### L AB15, LAB20, LAB99 ####Millinery Salesperson: KELLI CHILDS ([phone])[facility])[address] [place] [address] Hepatic function 2000 panelo n 08-21-2023 Albumin [Mass/Vol] 4.5 g/dL 3.5 - 5.0 g/dL [facility] ALP [Catalytic activity/Vol] 83 U/L 38 - 126 U/L [facility] ALT [Catalytic activity/Vol] 26 U/L 0 - 34 U/L [facility] AST [Catalytic activity/Vol] 31 U/L 15 - 46 U/L [facility] Bilirubin [Mass/Vol] 0.8 mg/dL 0.2 - 1 .3 mg/dL [facility] Bilirubin.conjugated [Mass/Vol] 0.0 mg/dL 0.0 - 0.3 mg/dL [facility] Protein [Mass/Vol] 7.7 g/dL 6.3 - 8.2 g/dL [facility] LACTIC ACID WITH REFLEXon Lactate [Moles/Vol] 0.7 mmol/L Normal 0.7-2.0 [facility] Comment on above: Performed By: #### L [id number] ####Millinery Salesperson: KELLI CHILDS ([phone])[facility] [place] [address] LIPASEon 08-21-2023 Lipase [Catalytic activity/Vol] 97 U/L Normal 23-300 [facility] Comment on above: Performed By: #### L AB15, LAB20, LAB99 ####Millinery Salesperson: KELLI CHILDS ([phone])[facility] ([facility])[address] [place] [address] Laboratory - Chemistry and C hemistry - challengeon 08-21-2023 Glucose [Mass/Vol] 72 mg/dL 70 - 100 mg/dL [facility] Lipase [Catalytic activity/Vol] 97 U/L 23 - 300 U/L [facility] Lactate [Moles/Vol] 0.7 mmol/L 0.7 - 2. 0 mmol/L [facility] No Panel Informationon 08-20 Interpretation and review of laboratory results Normal [facility] Performed by: [facility], [address] [place] [address] CLIA ID: [id number] [facility] Interpretation and review of laboratory results Normal [facility] Interpretation and review of laboratory results Normal [facility] CBC W Auto Differential pane l (Bld)on 08-20-2023 Basophils (Bld) [#/Vol] 0.0 10*3/uL 0.0 - 0.2 10*3/uL [facility] Basophils/100 WBC (Bld) 0.3 % 0.0 - 2.0 % [facility] Eosinophils (Bld) [#/Vol] 0.1 10*3/uL 0.0 - 0.5 10*3/uL [facility] Eosinophils/100 WBC (Bld) 0.8 % 0.0 - 6.0 % [facility] Erythrocyte distribution width (RBC) [Ratio] 13.2 % 11.5 - 15.0 % [facility] Hematocrit (Bld) [Volume fraction] 39.6 % 35.0 - 47.0 % [facility] Hemoglobin (Bld) [Mass/Vol] 13.1 g/dL 11.7 - 16.0 g/dL [facility] Immature granulocytes (Bld) [#/Vol] 0.0 10*3/uL NINF - 0.1 10*3/uL [facility] Immature granulocytes/100 WBC (Bld) 0.3 % 0.0 - 2.0 % [facility] Interpretation and review of laboratory results Normal [facility] Lymphocytes (Bld) [#/Vol] 1.5 10*3/uL 1.0 - 4.3 10*3/uL [facility] Lymphocytes/100 WBC (Bld) 23.6 % 15.0 - 45.0 % [facility] MCH (RBC) [Entitic mass] 28.9 pg 26. 0 - 34.0 pg [facility] MCHC (RBC) [Mass/Vol] 33.1 % 30.5 - 36.0 % [facility] MCV (RBC) [Entitic vol] 87.2 fL 77.0 - 99.0 fL [facility] Monocytes (Bld) [#/Vol] 0.5 10*3/uL 0.0 - 0.9 10*3/uL [facility] Monocytes/100 WBC (Bld) 8.3 % 5.0 - 13.0 % [facility] Neutrophils (Bld) [#/Vol] 4.2 10*3/uL 1.8 - 7.5 10*3/uL [facility] Neutrophils/100 WBC (Bld) 66.7 % 38.0 - 82.0 % [facility] Nucleated RBC/100 WBC (Bld) [Ratio] 0.0 % [facility] Platelet mean volume (Bld) [Entitic vol] 10.6 fL 9.0 - 12.7 fL [facility] Platelets (Bld) [#/Vol] 191 10*3/uL 140 - 440 10*3/uL [facility] RBC (Bld) [#/Vol] 4.54 10*6/uL 3.80 - 5.2 0 10*6/uL [facility] WBC (Bld) [#/Vol] 6.4 10*3/uL 3.6 - 10.7 10*3/uL [facility] CBC WITH AUTO DIFFERENTIALon 08-20-2023 Basophils (Bld) [#/Vol] 0.0 10*3/uL Normal 0.0-0.2 [facility] Comment on above: Performed By: #### L [id number] ####Mill[employer] Salesperson: KELLI CHILDS ([phone])[facility])[address] [place] [address] Basophils/100 WBC (Bld) 0.3 % Normal 0.0-2.0 [facility] Comment on above: Performed By: #### L [id number] ####Millinery Salesperson: KELLI CHILDS ([phone])[facility])[address] [place] [address] Eosinophils (Bld) [#/Vol] 0.1 10*3/uL Normal 0.0-0.5 [facility] Comment on above: Performed By: #### L [id number] ####Mill[employer] Salesperson: KELLI CHILDS ([phone])[facility])[address] [place] [address] Eosinophils/100 WBC (Bld) 0.8 % Normal 0.0-6.0 [facility] Comment on above: Performed By: #### L [id number] ####Mill[employer] Salesperson: KELLI CHILDS ([phone])[facility])[address] [place] [address] Erythrocyte distribution width (RBC) [Ratio] 13.2 % Normal 11.5-15.0 [facility] Comment on above: Performed By: #### L [id number] ####Mill[employer] Salesperson: KELLI CHILDS ([phone])[facility])[address] [place] [address] Hematocrit (Bld) [Volume fraction] 39.6 % Normal 35.0-47.0 [facility] Comment on above: Performed By: #### L [id number] ####Millinery Salesperson: KELLI CHILDS ([phone])[facility])[address] [place] [address] Hemoglobin (Bld) [Mass/Vol] 13.1 g/dL Normal 11.7-16.0 [facility] Comment on above: Performed By: #### L [id number] ####Mill[employer] Salesperson: KELLI CHILDS ([phone])[facility] ([facility])[address] [place] [address] IMMATURE GRANS % 0.3 % Normal 0.0-2.0 [facility] Comment on above: Performed By: #### L [id number] ####[employer] Salesperson: KELLI CHILDS ([phone])[facility])[address] [place] [address] IMMATURE GRANS ABSOLUTE 0.0 10*3/uL Normal <0.1 [facility] Comment on above: Performed By: #### L [id number] ####[employer] Salesperson: KELLI CHILDS ([phone])[facility])[address] [place] [address] Lymphocytes (Bld) [#/Vol] 1.5 10*3/uL Normal 1.0-4.3 [facility] Comment on above: Performed By: #### L [id number] ####Millinery Salesperson: KELLI CHILDS ([phone])[facility])[address] [place] [address] Lymphocytes/100 WBC (Bld) 23.6 % Normal 15.0-45.0 [facility] Comment on above: Performed By: #### L [id number] ####[employer] Salesperson: KELLI CHILDS ([phone])[facility])[address] [place] [address] MCH (RBC) [Entitic mass] 28.9 pg Normal 26.0-34.0 [facility] Comment on above: Performed By: #### L [id number] ####[employer] Salesperson: KELLI CHILDS ([phone])[facility])[address] [place] [address] MCHC 33.1 % Normal 30.5-36.0 [facility] Comment on above: Performed By: #### L [id number] ####[employer] Salesperson: KELLI CHILDS ([phone])[facility])[address] [place] [address] MCV (RBC) [Entitic vol] 87.2 fL Normal 77.0-99.0 [facility] Comment on above: Performed By: #### L [id number] ####[employer] Salesperson: KELLI CHILDS ([phone])[facility] ([facility])[address] [place] [address] Monocytes (Bld) [#/Vol] 0.5 10*3/uL Normal 0.0-0.9 [facility] Comment on above: Performed By: #### L [id number] ####[employer] Salesperson: KELLI CHILDS ([phone])[facility] ([facility])[address] [place] [address] Monocytes/100 WBC (Bld) 8.3 % Normal 5.0-13.0 [facility] Comment on above: Performed By: #### L [id number] ####[employer] Salesperson: KELLI CHILDS ([phone])[facility] ([facility])[address] [place] [address] NEUTROPHILS ABSOLUTE 4.2 10*3/uL Normal 1.8-7.5 [facility] Comment on above: Performed By: #### L [id number] ####[employer] Salesperson: KELLI CHILDS ([phone])[facility] ([facility])[address] [place] [address] Neutrophils/100 WBC (Bld) 66.7 % Normal 38.0-82.0 [facility] Comment on above: Performed By: #### L [id number] ####[employer] Salesperson: KELLI CHILDS ([phone])[facility] ([facility])[address] [place] [address] NRBC 0.0 /100 WBCs Normal 0.0-2.0 [facility] Comment on above: Performed By: #### L [id number] ####[employer] Salesperson: KELLI CHILDS ([phone])[facility] ([facility])[address] [place] [address] Platelet mean volume (Bld) [Entitic vol] 10.6 fL Normal 9.0-12.7 [facility] Comment on above: Performed By: #### L [id number] ####[employer] Salesperson: KELLI CHILDS ([phone])[facility])[address] [place] [address] Platelets (Bld) [#/Vol] 191 10*3/uL Normal 140-440 [facility] Comment on above: Performed By: #### L [id number] ####[employer] Salesperson: KELLI CHILDS ([phone])[facility])[address] [place] [address] RBC (Bld) [#/Vol] 4.54 10*6/uL Normal 3.80-5.20 [facility] Comment on above: Performed By: #### L [id number] ####Mill[employer] Salesperson: KELLI CHLIDS ([phone])[facility])[address] [place] [address] WBC (Bld) [#/Vol] 6.4 10*3/uL Normal 3.6-10.7 [facility] Comment on above: Performed By: #### L [id number] ####[employer] Salesperson: KELLI CHILDS ([phone])[address] COMPLETE URINALYSISon 2023 BILIRUBIN, TOTAL PRESENCE IN URINE Negative Normal Negative [facility] Comment on above: Performed By: #### L [id number] ####[employer] Salesperson: KELLI CHILDS ([phone])[facility])[address] [place] [address] Clarity (U) Clear Normal Clear [facility] Comment on above: Performed By: #### L [id number] ####[employer] Salesperson: KELLI CHILDS ([phone])[address] Color (U) Light Yellow Normal Lt. Yellow [facility] Comment on above: Performed By: #### L [id number] ####Millinery Salesperson: KELLI CHILDS ([phone])[facility] ([facility])[address] [place] [address] GLUCOSE (MG/DL) IN URINE Normal Normal Normal (<70 ) [facility] Comment on above: Performed By: #### L [id number] ####[employer] Salesperson: KELLI CHILDS ([phone])[facility] ([facility])[address] [place] [address] HEMOGLOBIN PRESENCE IN URINE Negative Normal Negative [facility] Comment on above: Performed By: #### L [id number] ####[employer] Salesperson: KELLI CHILDS ([phone])[facility] ([facility])[address] [place] [address] Ketones Ql (U) 60 mg/dL Abnormal Negative [facility] Comment on above: Performed By: #### L [id number] ####[employer] Salesperson: KELLI CHILDS ([phone])[facility] ([facility])[address] [place] [address] LEUKOCYTE ESTERASE PRESENCE IN URINE BY TEST STRIP Negative Normal Negative [facility] Comment on above: Performed By: #### L [id number] ####[employer] Salesperson: KELLI CHILDS ([phone])[facility] ([facility])[address] [place] [address] NITRITE PRESENCE IN URINE Negative Normal Negative [facility] Comment on above: Performed By: #### L [id number] ####[employer] Salesperson: KELLI CHILDS ([phone])[facility] ([facility])[address] [place] [address] pH (U) 5.0 [pH] Normal 5.0-8.0 [facility] Comment on above: Performed By: #### L [id number] ####[employer] Salesperson: KELLI CHILDS ([phone])[facility] ([facility])[address] [place] [address] Protein (U) [Mass/Vol] Negative Normal Negative [facility] Comment on above: Performed By: #### L [id number] ####[employer] Salesperson: KELLI CHILDS ([phone])[facility] ([facility])[address] [place] [address] [place] Specific gravity (U) [Rel density] 1.031 High 1.005-1.030 [facility] Comment on above: Performed By: #### L [id number] ####[employer] Salesperson: KELLI CHILDS ([phone])[facility])[address] [place] [address] UROBILINOGEN (MG/DL) IN URINE Normal Normal Normal (0-1) [facility] Comment on above: Performed By: #### L [id number] ####[employer] Salesperson: KELLI CHILDS ([phone])[facility] ([facility])[address] [place] [address] COMPREHENSIVE METABOLIC PANE Elder 08-20-2023 Albumin [Mass/Vol] 4.2 g/dL Normal 3.5-5.0 [facility] Comment on above: Performed By: #### L AB17, LAB99 ####[employer] Salesperson: KELLI CHILDS ([phone])[facility] ([facility])[address] [place] [address] ALP [Catalytic activity/Vol] 76 U/L Normal 38-126 [facility] Comment on above: Performed By: #### L AB17, LAB99 ####[employer] Salesperson: KELLI CHILDS ([phone])[facility] ([facility])[address] [place] [address] ALT [Catalytic activity/Vol] 23 U/L Normal 0-34 [facility] Comment on above: Performed By: #### L AB17, LAB99 ####[employer] Salesperson: KELLI CHILDS ([phone])[facility])[address] [place] [address] Anion gap [Moles/Vol] 11 mmol/L Normal 3-13 [facility] Comment on above: Performed By: #### L AB17, LAB99 ####[employer] Salesperson: KELLI CHILDS ([phone])[facility])[address] [place] [address] AST [Catalytic activity/Vol] 26 U/L Normal 15-46 [facility] Comment on above: Performed By: #### L AB17, LAB99 ####Millinery Salesperson: KELLI CHILDS ([phone])[facility] ([facility])[address] [place] [address] Bilirubin [Mass/Vol] 0.6 mg/dL Normal 0.2-1.3 [facility] Comment on above: Performed By: #### L AB17, LAB99 ####Millinery Salesperson: KELLI CHILDS ([phone])[facility])[address] [place] [address] Calcium [Mass/Vol] 9.6 mg/dL Normal 8.4-10.4 [facility] Comment on above: Performed By: #### L AB17, LAB99 ####Millinery Salesperson: KELLI CHILDS ([phone])[facility] ([facility])[address] [place] [address] Chloride [Moles/Vol] 103 mmol/L Normal 98-107 [facility] Comment on above: Performed By: #### L AB17, LAB99 ####Millinery Salesperson: KELLI CHILDS ([phone])[facility] ([facility])[address] [place] [address] [place] CO2 [Moles/Vol] 24 mmol/L Normal 22-30 [facility] Comment on above: Performed By: #### L AB17, LAB99 ####Millinery Salesperson: KELLI CHILDS ([phone])[facility])[address] [place] [address] Creatinine [Mass/Vol] 0.84 mg/dL Normal 0.52-1.04 [facility] Comment on above: Performed By: #### L AB17, LAB99 ####Millinery Salesperson: KELLI CHILDS ([phone])[facility])[address] [place] [address] [place] GLOMERULAR FILTRATION RATE ML/MIN/1.73 SQ M.PREDICTED 72.1 mL/min/1.73m*2 Normal >60.0 [facility] Comment on above: Result Comment: Calc ulation based on the Chronic Kidney Disease Epidemiology Collaboration (CKD-EPI) equation refit without adjustment for race Performed By: #### L AB17, LAB99 ####Millinery Salesperson: KELLI CHILDS ([phone])[facility])[address] [place] [address] Glucose [Mass/Vol] 123 mg/dL High 70-100 [facility] Comment on above: Performed By: #### L AB17, LAB99 ####Millinery Salesperson: KELLI CHILDS ([phone])[facility])[address] [place] [address] Potassium [Moles/Vol] 4.1 mmol/L Normal 3.5-5.1 [facility] Comment on above: Performed By: #### L AB17, LAB99 ####Millinery Salesperson: KELLI CHILDS ([phone])[facility])[address] [place] [address] Protein [Mass/Vol] 7.1 g/dL Normal 6.3-8.2 [facility] Comment on above: Performed By: #### L AB17, LAB99 ####Millinery Salesperson: KELLI CHILSD ([phone])[facility])[address] [place] [address] Sodium [Moles/Vol] 137 mmol/L Normal 135-145 [facility] Comment on above: Performed By: #### L AB17, LAB99 ####Millinery Salesperson: KELLI CHILDS ([phone])[facility])[address] [place] [address] [place] Urea nitrogen [Mass/Vol] 24 mg/dL High 7-17 [facility] Comment on above: Performed By: #### L AB17, LAB99 ####Millinery Salesperson: KELLI CHILDS ([phone])[facility])[address] [place] [address] CT ABDOMEN PELVIS W CONTRAST on 08-20-2023 [...] Electronically Signed Date/Time: 08/20/2023 9:00 AM EDT [facility] CT Abdomen and Pelvis W cont rast Jayla 08-20-2023 1. No evidence of acute infectious or inflammatory process in the abdomen or pelvis. 2. 2.7 x 3.2 cm subcapsular low-density hepatic lesion within segment VII, probably a cyst. Report Dictated on Electronically Signed By: Artis Stevens MD Electronically Signed Date/Time: 08/20/2023 9:00 AM EDT [facility] Patient Name: SHEYLA RAMIREZ : [...] Electronically Signed Date/Time: 08/20/2023 9:00 AM EDT [facility] Radiology Study observation (narrative) [facility] alth CT Abdomen and Pelvis W cont rast IVOrdered By: Artis Stevens on 08-20-2023 [facility] Work Phone: Comprehensive metabolic 1998 panelon 08-20-2023 Albumin [Mass/Vol] 4.2 g/dL 3.5 - 5.0 g/dL [facility] ALP [Catalytic activity/Vol] 76 U/L 38 - 126 U/L [facility] ALT [Catalytic activity/Vol] 23 U/L 0 - 34 U/L [facility] Anion gap [Moles/Vol] 11 mmol/L 3 - 13 mmol/L [facility] AST [Catalytic activity/Vol] 26 U/L 15 - 46 U/L [facility] Bilirubin [Mass/Vol] 0.6 mg/dL 0.2 - 1 .3 mg/dL [facility] Calcium [Mass/Vol] 9.6 mg/dL 8.4 - 10. 4 mg/dL [facility] Chloride [Moles/Vol] 103 mmol/L 98 - 10 7 mmol/L [facility] CO2 [Moles/Vol] 24 mmol/L 22 - 30 mmol/L [facility] Creatinine [Mass/Vol] 0.84 mg/dL 0.52 - 1.04 mg/dL [facility] GFR/1.73 sq M.predicted MDRD (S/P/Bld) [Vol rate/Area] 72.1 mL/min/{1.73_m2} - PINF [facility] Comment on above: Calculation based on the Chronic Kidney Disease Epidemiology Collaboration (CKD-EPI) equation refit without adjustment for race Glucose [Mass/Vol] 123 mg/dL High 70 - 100 mg/dL [facility] Interpretation and review of laboratory results Abnormal [facility] Potassium [Moles/Vol] 4.1 mmol/L 3.5 - 5.1 mmol/L [facility] Protein [Mass/Vol] 7.1 g/dL 6.3 - 8.2 g/dL [facility] Sodium [Moles/Vol] 137 mmol/L 135 - 145 mmol/L [facility] Urea nitrogen [Mass/Vol] 24 mg/dL High 7 - 17 mg/d L [facility] Consulton 08-20-2023 Consult Department of Surgery Surgical [...] diverticulitis, (additional history below) who presents to [facility] ED with a chief complaint of [...] discharge. Conjunctiva/sclera (more content not included)... Normal [facility] ED Nursing Noteon 08-20-2023 ED Nursing [...] reach. Kimberley Carson RN 08/20/23 0652 Normal [facility] ED Provider Noteon ED Provider Note [...] right or (more content not included)... Normal [facility] ED Provider Note Emergency Department Encounter [facility] EMERGENCY DEPT Patient: Sheyla Ramirez [...] [employer] Don Bell MD 08/20/23 0924 Normal [facility] LIPASEon 08-20-2023 Lipase [Catalytic activity/Vol] 136 U/L Normal 23-300 [facility] Comment on above: Performed By: #### L AB17, LAB99 ####Millinery Salesperson: KELLI CHILDS ([phone])[facility] ([facility])[address] Laboratory - Chemistry and C hemistry - challengeon 08-20-2023 Lipase [Catalytic activity/Vol] 136 U/L 23 - 300 U/L [facility] Lipase [Catalytic activity/V ol]on 08-20-2023 Interpretation and review of laboratory results Normal [facility] No Panel Informationon 08-19 [facility] Urinalysis complete panel (U )Ordered By: Dana Goff on 08-20-2023 Bilirubin Ql (U) Negative Negative mg/dL [facility] Clarity (U) Clear Clear [facility] Color (U) Light Yellow Lt. Yellow [facility] Glucose Ql (U) Normal Normal (<70) mg/dL [facility] Hemoglobin Ql (U) Negative Negative mg/dL [facility] Interpretation and review of laboratory results Abnormal [facility] Ketones (U) [Mass/Vol] 60 mg/dL Abnormal Negative [facility] Leukocyte esterase Test strip Ql (U) Negative Negative Alisson/uL [facility] Nitrite Ql (U) Negative Negative [facility] th pH (U) 5.0 [pH] 5.0 - 8.0 pH [facility] Protein (U) [Mass/Vol] Negative Negat jenniffer mg/dL [facility] Specific gravity (U) [Rel density] 1.031 High 1.005 - 1.030 [facility] Urobilinogen (U) [Mass/Vol] Normal Normal (0-1) mg/dL [facility] Laboratory - Chemistry and C hemistry - challengeon 08-04-2023 Glucose [Mass/Vol] 231 mg/dL High 70 - 100 mg/dL [facility] No Panel Informationon 08-03 Interpretation and review of laboratory results Abnormal [facility] Performed by: [facility], [address] [place] [address] CLIA ID: [id number] [facility] Radiology Study observation (narrative) [facility] alth RF Upper gastrointestinal tr act and Small bowel Single view W contrast Diony 07-24-2023 Small hiatus hernia without gastroesophageal reflux. Satisfactory emptying of both the marshmallow and bagel boluses within two stripping waves. Report Dictated on Electronically Signed By: Kit Patel MD Electronically Signed Date/Time: 07/24/2023 12:46 PM EDT [facility] Patient Name: SHEYLA RAMIREZ : 1945 [...] and bagel boluses within two stripping waves. [facility] Kit Patel MD - 07/24/2023 Patient [...] Electronically Signed Date/Time: 07/24/2023 12:46 PM EDT [facility] Radiology Study observation (narrative) [facility] alth RF Upper gastrointestinal tr act and Small bowel Single view W contrast POOrdered By: Kit Patel on 07-24-2023 [place] [id number] 07-08-2023 36 Spoke with pt today about new surgery date of 09/08 @ 7:00. She verbalized understanding and also stated she has an appt w/ her banking consultant on 08/27. (Cardiac clearance still pending til then) [facility] 36on 07-02-2023 36 I faxed the cardiac clearance request today. I will keep it in a folder here of pending requests. I can update the [employer] message and route off once received. Unless there is a different protocol for keeping track [facility] 36 Please make sure to get cardiac clearance prior to surgery [facility] 36on 07-01-2023 36 Called pt and LVM explaining we already chose an EGD appt, August 03, arrival time of 10:00. Please let pt know that if she calls back. [facility] 36on 06-29-2023 36 Patient LVM that she would like to schedule EGD she found a ride. 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 Normal [facility] Progress Note [facility] - Surgery [facility] Physicians Surgery Patient Name: Sheyla Ramirez [...] will need medical risk stratification from her banking consultant. We will proceed with surgical intervention. I [...] with surgical interventio (more content not included)... [facility] Progress Note Spoke with pt today about new surgery date of 09/08 @ 7:00. She verbalized understanding and also stated she has an appt w/ her banking consultant on 08/27. (Cardiac clearance still pending til then) [facility] Progress Note Called pt and notified of upper GI and EGD. Mailed paperwork [facility] Progress Note Noted. thanks Progress Note Received cardiac clearance approval. -pre-op appt this Thursday [facility] Progress Note Cardiac paperwork received and signed off on. PAT canceled per Sha (pt aware) [facility] Progress Note Cardiac stress test and ECHO results received from [facility]. Placed in review folder [facility] Progress Note Pt called and surgery date chose, case entered, post-ops made, and cardiac clearance faxed to banking consultant [facility] 36on 06-03-2023 36 GABRIELLA has been faxed to nate cook [facility] 36 Nate Lincoln called to verify the birthday of patient. She stated she was unable to read the birthday on the GABRIELLA. She looked while I was on the phone. She did not have any records for the patient. She stated maybe Nate in [place] would and to try to send it there. [facility] 36 Senior Gl Accountant appt scheduled for 06/25, pt informed via phone/mail. Sent GABRIELLA to nate to get UGI images. [facility] No Panel InformationOrdered By: Sylvester Bhakta on 02-12-2023 Thyroid Stimulating Hormone (TSH) 1.03 uIU/mL 0.358-3.74 [facility] Serum or plasma thyroperoxid ase antibody assay (units/volume)Ordered By: Sylvester Bhakta on 02-12-2023 TPO Ab Qn [IU]/mL 0-34 [facility] Comment on above: Performed at: [address] [id number] Director: Chandana Turner PhD, Phone: [phone] Absolute lymphocyte countOrd ered By: Lena Thorne on 12-30-2022 Lymphocytes Auto (Unsp spec) [#/Vol] 2.54 10*3/uL 0.83-4.51 [facility] Basophil percentageOrdered B y: Lena Thorne on 12-30-2022 Basophils/100 WBC (Bld) 0.5 % 0-1 [facility] Bilirubin [Mass/Vol] 0.30 mg/dL 0.20-1.00 [facility] Comment on above: For patients on eltr ombopag therapy, use of Dimension [place] TBIL is not recommended. Chloride [Moles/Vol] 108 mmol/L 98-107 [facility] Cholesterol [Mass/Vol] 238 mg/dL <200 [facility] Comment on above: <200 mg/dL Desirable 200-240 mg/dL Borderline >240 mg/dL High Risk Eosinophils/100 WBC (Bld) 1.8 % 0-5 [facility] Glucose [Mass/Vol] 137 mg/dL 74-106 [facility] Comment on above: Fasting Glucose resu lt greater than or equal to 126 mg/dL suggests DIABETES MELLITUS per A.D.A. criteria. Neutrophils (Bld) [#/Vol] 2.5 10*3/uL 2.0-7.7 [facility] Neutrophils/100 WBC (Bld) 44.7 % 47-70 [facility] Potassium [Moles/Vol] 3.9 mmol/L 3.5-5.1 [facility] Protein [Mass/Vol] 7.1 g/dL 6.4-8.2 [facility] Sodium [Moles/Vol] 139 mmol/L 136-145 [facility] Triglyceride [Mass/Vol] 115 mg/dL <199 [facility] Comment on above: The drugs N-Acetylcy steine and Metamizole may falsely depress this assay.Serum Triglycerides Reference Interval Normal <150 mg/dL Borderline high 150 - 199 mg/dL High 200 - 499 mg/dL Very High > or = 500 mg/dL WBC (Bld) [#/Vol] 5.6 10*3/uL 4.4-11.0 [facility] Blood erythrocytes count (nu mber/volume)Ordered By: Lena Thorne on 12-30-2022 RBC (Bld) [#/Vol] 4.68 10*6/uL 4.2-5.4 [facility] Blood hemoglobin measurement (mass/volume)Ordered By: Lena Thorne on 12-30-2022 Hemoglobin (Bld) [Mass/Vol] 13.5 g/dL 12.0-15.0 [facility] Blood lymphocytes/100 leukoc ytesOrdered By: Lena Thorne on 12-30-2022 Lymphocytes/100 WBC (Bld) 45.0 % 19-41 [facility] Blood monocytes/100 leukocyt esOrdered By: [facility] Thorne on 12-30-2022 Monocytes/100 WBC (Bld) 7.8 % 0-10 [facility] Blood platelet mean volumeOr dered By: Lena Thorne on 12-30-2022 Platelet mean volume (Bld) [Entitic vol] 10.8 fL 6.2-12.0 [facility] Determination of erythrocyte mean corpuscular volume (MCV)Ordered By: Lena Thorne on 12-30-2022 MCV (RBC) [Entitic vol] 88.7 fL 81-99 [facility] Hematocrit Auto (Bld) [Volum e fraction]Ordered By: Lena Thorne on 12-30-2022 Hematocrit (Bld) [Volume fraction] 41.5 % 37-47 [facility] Laboratory - Chemistry and C hemistry - challengeOrdered By: Lena Thorne on 12-30-2022 ALP [Catalytic activity/Vol] 71 U/L 45-117 [facility] ALT [Catalytic activity/Vol] 30 U/L 13-56 [facility] CO2 [Moles/Vol] 23.0 mmol/L 21.0-32.0 [facility] Globulin (S) [Mass/Vol] 3.6 g/dL 2.2-4.2 [facility] Urea nitrogen/Creatinine [Mass ratio] 20.8 mg/mg 10-20 [facility] Laboratory - Hematology and Cell countsOrdered By: Lena Thorne on 12-30-2022 Erythrocyte distribution width (RBC) [Entitic vol] 43.5 fL 35.1-43.9 [facility] Erythrocyte distribution width (RBC) [Ratio] 13.4 % 11.6-14.6 [facility] Immature granulocytes/100 WBC (Bld) 0.200 % 0.0-0.9 [facility] Comment on above: IG% - Immature Granu locytes (promyelocytes, myelocytes and metamyelocytes) > 1% indicates that a LEFT SHIFT is Present. MCH (RBC) [Entitic mass] 28.8 pg 27.0-32.0 [facility] Nucleated RBC/100 WBC (Bld) [Ratio] 0 % 0-5 [facility] MCHC Auto (RBC) [Mass/Vol]Or dered By: Lena Thorne on 12-30-2022 MCHC (RBC) [Mass/Vol] 32.5 g/dL 32-36 [facility] No Panel InformationOrdered By: Lena Thorne on 12-30-2022 Estimated GFR (MDRD) Amer 82 mL/min >60 [facility] Comment on above: GFR Calc Estimated GFR (MDRD) Non-Af Amer 68 mL/min >60 [facility] Comment on above: Non- GFR Calc No Panel InformationOrdered By: Sylvester Bhakta on 12-30-2022 Thyroid Stimulating Hormone (TSH) 6.60 uIU/mL 0.358-3.74 [facility] Platelets bldOrdered By: Oscar Thorne on 12-30-2022 Platelets (Bld) [#/Vol] 213 10*3/uL 150-450 [facility] Serum or plasma albumin brice urement (mass/volume)Ordered By: Lena Thorne on 12-30-2022 Albumin [Mass/Vol] 3.5 g/dL 3.2-5.0 [facility] Serum or plasma albumin/glob ulin mass ratioOrdered By: Lena Thorne on 12-30-2022 Albumin/Globulin [Mass ratio] 1.0 {ratio} 0.9-2.4 [facility] Serum or plasma calcium brice urement (mass/volume)Ordered By: Lena Thorne on 12-30-2022 Calcium [Mass/Vol] 9.0 mg/dL 8.5-10.1 [facility] Serum or plasma cholesterol in HDL measurement (mass/volume)Ordered By: Lena Thorne on 12-30-2022 Cholesterol in HDL [Mass/Vol] 78 mg/dL >40 [facility] Comment on above: The drugs N-Acetylcy steine and Metamizole may falsely depress this assay. Reference Range HDL <40 mg/dL Low HDL Cholesterol HDL >or= 60 mg/dL High HDL Cholesterol Serum or plasma cholesterol in VLDL measurement (mass/volume)Ordered By: Lena Thorne on 12-30-2022 Cholesterol in VLDL [Mass/Vol] 23 mg/dL 5-40 [facility] Serum or plasma creatinine m easurement (mass/volume)Ordered By: Lena Thorne 12-30-2022 Creatinine [Mass/Vol] 0.86 mg/dL 0.55-1.02 [facility] Comment on above: The validity of the calculated GFR & GFRAA in patients over 70 years has not been determined. Clinical correlation is essential. Serum or plasma low density lipoprotein (LDL) cholesterol measurement (mass/volume)Ordered By: Lena Thorne on 12-30-2022 Cholesterol in LDL [Mass/Vol] 137 mg/dL 0-130 [facility] Serum or plasma urea nitroge n measurement (mass/volume)Ordered By: Lena Thorne on 12-30-2022 Urea nitrogen [Mass/Vol] 18 mg/dL 7-18 [facility] Thin prep Papanicolaou smear with manual screeningOrdered By: Lena Thorne 12-30-2022 Thin prep Papanicolaou smear with manual screening 15 U/L 15-37 [facility] Thin prep Papanicolaou smear with manual screening 8 5-15 [facility] Whole blood hemoglobin A1c/t otal hemoglobin ratio (mass fraction)Ordered By: Sylvester Bhakta on 12-30-2022 HbA1c (Bld) [Mass fraction] 6.9 % 3.8-5.6 [facility] Comment on above: Normal < 5.7 % Predi abetic 5.7 - 6.4 % Diabetic >or= 6.5 % Please note range changes. Laboratory - Hematology and Cell countson 07-07-2022 HbA1c (Bld) [Mass fraction] 8.2 % [facility] Laboratory - Hematology and Cell countson 09-12-2021 HbA1c (Bld) [Mass fraction] 6.6 % [facility] Work Phone: Laboratory - Hematology and Cell countson 06-13-2021 HbA1c (Bld) [Mass fraction] 8.3 % [facility] Work Phone: Basophil percentageon 2021 Basophil percentage 0-5 SEEN /hpf 0-5 [facility] Work Phone: Chloride [Moles/Vol] 106 mmol/L 98-107 [facility] Work Phone: Glucose [Mass/Vol] 171 mg/dL 74-106 [facility] Work Phone: Comment on above: Fasting Glucose resu lt greater than or equal to 126 mg/dL suggests DIABETES MELLITUS per A.D.A. criteria. Potassium [Moles/Vol] 3.9 mmol/L 3.5-5.1 [facility] Work Phone: Sodium [Moles/Vol] 138 mmol/L 136-145 [facility] Work Phone: Bilirubin Test strip Ql (U)o n 05-27-2021 Bilirubin Ql (U) Negative Negative [facility] Work Phone: Ketones Test strip Ql (U)on 05-27-2021 Ketones Ql (U) 50 mg/dl Negative [facility] Work Phone: Laboratory - Chemistry and C hemistry - challengeon 05-27-2021 CO2 [Moles/Vol] 23.0 mmol/L 21.0-32.0 [facility] Work Phone: Urea nitrogen/Creatinine [Mass ratio] 29.5 mg/mg 10-20 [facility] Work Phone: Mucus LM Ql (Urine sed)on Mucus Ql (Urine sed) RARE /hpf [facility] Work Phone: Nitrite Test strip Ql (U)on 05-27-2021 Nitrite Ql (U) Negative Negative [facility] Work Phone: No Panel Informationon 05-27 Estimated GFR (MDRD) Amer 88 mL/min >60 [facility] Work Phone: Comment on above: GFR Calc Estimated GFR (MDRD) Non-Af Amer 73 mL/min >60 [facility] Work Phone: Comment on above: Non- GFR Calc Protein Test strip Ql (U)on 05-27-2021 Protein Ql (U) Negative Negative [facility] Work Phone: Serum or plasma calcium brice urement (mass/volume)on 05-27-2021 Calcium [Mass/Vol] 9.3 mg/dL 8.5-10.1 oste [facility] Work Phone: Serum or plasma creatinine m easurement (mass/volume)on 05-27-2021 Creatinine [Mass/Vol] 0.81 mg/dL 0.55-1.02 [facility] Work Phone: Comment on above: The validity of the calculated GFR & GFRAA in patients over 70 years has not been determined. Clinical correlation is essential. Serum or plasma urea nitroge n measurement (mass/volume)on 05-27-2021 Urea nitrogen [Mass/Vol] 24 mg/dL 7-18 [facility] Work Phone: Squamous epithelial cells de tection in urine sediment by light microscopyon 04-11-2022 Epithelial cells.squamous LM Ql (Urine sed) 0-5 SEEN /hpf 5-10 [facility] Work Phone: Thin prep Papanicolaou smear with manual screeningon 05-27-2021 Thin prep Papanicolaou smear with manual screening 9 5-15 [facility] Work Phone: Urine blood detectionon 05-17 RBC Ql (U) Negative Negative [facility] Work Phone: RBC Ql (U) 0 SEEN /hpf 0-5 [facility] Work Phone: Urine clarityon 05-27-2021 Clarity (U) Clear Clear [facility] Work Phone: Urine color determinationon 05-27-2021 Color (U) Yellow Yellow [facility] Work Phone: Urine glucose detectionon Glucose Ql (U) Normal mg/dl Normal [facility] Work Phone: Urine leukocyte esterase det ection by dipstickon 05-27-2021 Leukocyte esterase Test strip Ql (U) Negative Negative [facility] Work Phone: Urine pHon 05-27-2021 pH (U) 5.0 [pH] 5.0 - 8.0 [facility] Work Phone: Urine sediment bacteria coun t by microscopy (number/high power field)on 05-27-2021 Bacteria LM.HPF (Urine sed) [#/Area] RARE /hpf None Seen [facility] Work Phone: Urine specific gravity measu rementon 05-27-2021 Specific gravity (U) [Rel density] 1.020 1.002-1.030 [facility] Work Phone: Urobilinogen Auto test strip Ql (U)on 05-27-2021 Urobilinogen Ql (U) Normal mg/dl Normal [facility] Work Phone: Basophil percentageon 2021 Amylase [Catalytic activity/Vol] 49 U/L 25-115 [facility] Work Phone: Bilirubin [Mass/Vol] 0.50 mg/dL 0.20-1.00 [facility] Work Phone: Comment on above: For patients on eltr ombopag therapy, use of Dimension [place] TBIL is not recommended. Chloride [Moles/Vol] 104 mmol/L 98-107 [facility] Work Phone: Glucose [Mass/Vol] 258 mg/dL 74-106 [facility] Work Phone: Comment on above: Glucose result great er than or equal to 200 mg/dLsuggests DIABETES MELLITUS per A.D.A. criteria. Potassium [Moles/Vol] 4.3 mmol/L 3.5-5.1 [facility] Work Phone: Protein [Mass/Vol] 7.5 g/dL 6.4-8.2 [facility] Work Phone: Sodium [Moles/Vol] 136 mmol/L 136-145 [facility] Work Phone: Laboratory - Chemistry and C hemistry - challengeon 05-22-2021 ALP [Catalytic activity/Vol] 105 U/L 45-117 [facility] Work Phone: ALT [Catalytic activity/Vol] 39 U/L 13-56 [facility] Work Phone: CO2 [Moles/Vol] 29.0 mmol/L 21.0-32.0 [facility] Work Phone: Globulin (S) [Mass/Vol] 3.8 g/dL 2.2-4.2 [facility] Work Phone: Lipase [Catalytic activity/Vol] 148 U/L 73-393 [facility] Work Phone: Urea nitrogen/Creatinine [Mass ratio] 11.2 mg/mg 10-20 [facility] Work Phone: Laboratory - Hematology and Cell countson 05-22-2021 HbA1c (Bld) [Mass fraction] 8.9 % 4.2-6.3 [facility] Work Phone: No Panel Informationon 05-22 Estimated GFR (MDRD) Amer 34 mL/min >60 [facility] Work Phone: Comment on above: GFR Calc Estimated GFR (MDRD) Non-Af Amer 28 mL/min >60 [facility] Work Phone: Comment on above: Non- GFR Calc Serum or plasma albumin brice urement (mass/volume)on 05-22-2021 Albumin [Mass/Vol] 3.7 g/dL 3.2-5.0 [facility] Work Phone: Serum or plasma albumin/glob ulin mass ratioon 05-22-2021 Albumin/Globulin [Mass ratio] 1.0 {ratio} 0.9-2.4 [facility] Work Phone: Serum or plasma calcium brice urement (mass/volume)on 05-22-2021 Calcium [Mass/Vol] 9.3 mg/dL 8.5-10.1 [facility] Work Phone: Serum or plasma creatinine m easurement (mass/volume)on 05-22-2021 Creatinine [Mass/Vol] 1.87 mg/dL 0.55-1.02 [facility] Work Phone: Comment on above: The validity of the calculated GFR & GFRAA in patients over 70 years has not been determined. Clinical correlation is essential. Serum or plasma urea nitroge n measurement (mass/volume)on 05-22-2021 Urea nitrogen [Mass/Vol] 21 mg/dL 7-18 [facility] Work Phone: Thin prep Papanicolaou smear with manual screeningon 05-22-2021 Thin prep Papanicolaou smear with manual screening 16 U/L 15-37 [facility] Work Phone: Thin prep Papanicolaou smear with manual screening 3 5-15 [facility] Work Phone: Laboratory - Hematology and Cell countson 03-13-2021 HbA1c (Bld) [Mass fraction] 9.7 % [facility] Work Phone: MA MAMMOGRAM SCREENING BILAT ERAL W/TOMOon 11-03-2019 MA MAMMOGRAM SCREENING BILATERAL W/SIMONA ORIGINAL FROM: [facility] [place] [facility] [address], [place] [address] PROCEDURE FOR: SHELYA HAAS [address] [place] [id number] Home: PID#: [id number] Exam#: [id number] : 1945 Age: 73 TO: LENA THORNE MD [address] [place] [id number] #[id number] BILATERAL DIGITAL SCREENING MAMMOGRAM 3D/2D WITH CAD WITH MEDIOLATERAL OBLIQUE CRANIOCAUDAL: 11/03/2019 Comparison is made to exams dated: 04/05/2018 mammogram, 04/02/2017 mammogram - [facility], and 02/15/2016 mammogram - [facility]. The tissue of both breasts is heterogeneously [...] mammogram is recommended.( 021) DINORAH menendez/scotty:11/04/2019 06:26:38 Computer Technology Trainer(s): RA OVALLE, RT(R)(M)(CT) [facility] letter sent: Normal BI-RADS 1&2 Mammogram BI-RADS: 2 Benign Normal [facility] ([place]) Vital Signs Date Time Vital Sign Value Performing Clinician Facility 11-21-2024 14:24-0400 Body height 170.[address] Lena Thorne MD Work Phone: [facility] 11-21-2024 14:24-0400 Body mass index (BMI) [Ratio] 24.6 kg/m2 Dr. Lena Thorne MD Work Phone: [facility] 11-21-2024 14:24-0400 Body weight 71.[address] Lena Thorne MD Work Phone: [facility] 11-21-2024 14:24-0400 Diastolic blood pressure 77 mm[Hg] Dr. Lena Thorne MD Work Phone: [facility] 11-21-2024 14:24-0400 Heart rate 70 /min Dr. Lena Thorne MD Work Phone: [facility] 11-21-2024 14:24-0400 SaO2% (BldA) [Mass fraction] 96 % Dr. Lena Thorne MD Work Phone: [facility] 11-21-2024 14:24-0400 Systolic blood pressure 127 mm[Hg] Dr. Lena Thorne MD Work Phone: [facility] 10-24-2024 12:59-0400 Body height 170.[address] Lena Thorne MD Work Phone: [facility] 10-24-2024 12:59-0400 Body mass index (BMI) [Ratio] 24.7 kg/m2 Dr. Lena Thorne MD Work Phone: [facility] 10-24-2024 12:59-0400 Body temperature 96.8 [degF] Dr. Lena Thorne MD Work Phone: [facility] 10-24-2024 12:59-0400 Body weight 71.[address] Lena Thorne MD Work Phone: [facility] 10-24-2024 12:59-0400 Diastolic blood pressure 60 mm[Hg] Dr. Lena Thorne MD Work Phone: [facility] 10-24-2024 12:59-0400 Heart rate 85 /min Dr. Lena Thorne MD Work Phone: [facility] 10-24-2024 12:59-0400 Respiratory rate 18 /min Dr. Lena Thorne MD Work Phone: [facility] 10-24-2024 12:59-0400 SaO2% (BldA) [Mass fraction] 97 % Dr. Lena Thorne MD Work Phone: [facility] 10-24-2024 12:59-0400 Systolic blood pressure 128 mm[Hg] Dr. Lena Thorne MD Work Phone: [facility] 08-04-2024 14:20-0400 Body height 170.[address] Lena Thorne MD Work Phone: [facility] 08-04-2024 14:20-0400 Body mass index (BMI) [Ratio] 24.3 kg/m2 Dr. Lena Thorne MD Work Phone: [facility] 08-04-2024 14:20-0400 Body weight 70.[address] Lena Thorne MD Work Phone: [facility] 08-04-2024 14:20-0400 Diastolic blood pressure 82 mm[Hg] Dr. Lena Thorne MD Work Phone: [facility] 08-04-2024 14:20-0400 Heart rate 71 /min Dr. Lena Thorne MD Work Phone: [facility] 08-04-2024 14:20-0400 SaO2% (BldA) [Mass fraction] 98 % Dr. Lena Thorne MD Work Phone: [facility] 08-04-2024 14:20-0400 Systolic blood pressure 135 mm[Hg] Dr. Lena Thorne MD Work Phone: [facility] 07-19-2024 07:39-0400 Body height 170.[address] Lena Thorne MD Work Phone: [facility] 07-19-2024 07:39-0400 Body mass index (BMI) [Ratio] 24.1 kg/m2 Dr. Lena Thorne MD Work Phone: [facility] 07-19-2024 07:39-0400 Body weight 69.[address] Lena Thorne MD Work Phone: [facility] 07-19-2024 07:39-0400 Diastolic blood pressure 69 mm[Hg] Dr. Lena Thorne MD Work Phone: [facility] 07-19-2024 07:39-0400 Heart rate 80 /min Dr. Lena Thorne MD Work Phone: [facility] 07-19-2024 07:39-0400 Respiratory rate 18 /min Dr. Lena Throne MD Work Phone: [facility] 07-19-2024 07:39-0400 Systolic blood pressure 107 mm[Hg] Dr. Lena Thorne MD Work Phone: [facility] 06-15-2024 14:09-0400 Body mass index (BMI) [Ratio] 24.1 kg/m2 Dr. Lena Thorne MD Work Phone: [facility] 06-15-2024 14:09-0400 Body temperature 96.3 [degF] Dr. Lena Thorne MD Work Phone: [facility] 06-15-2024 14:09-0400 Body weight 70.[address] Lena Thorne MD Work Phone: [facility] 06-15-2024 14:09-0400 Diastolic blood pressure 54 mm[Hg] Dr. Lena Thorne MD Work Phone: [facility] 06-15-2024 14:09-0400 Heart rate 77 /min Dr. Lena Thorne MD Work Phone: [facility] 06-15-2024 14:09-0400 Respiratory rate 12 /min Dr. Lena Thorne MD Work Phone: [facility] 06-15-2024 14:09-0400 SaO2% (BldA) [Mass fraction] 95 % Dr. Lena Thorne MD Work Phone: [facility] 06-15-2024 14:09-0400 Systolic blood pressure 98 mm[Hg] Dr. Lena Thorne MD Work Phone: [facility] 04-05-2024 14:22-0500 Body mass index (BMI) [Ratio] 23.6 kg/m2 Dr. Lena Thorne MD Work Phone: [facility] 04-05-2024 14:22-0500 Body weight 68.[address] Lena Throne MD Work Phone: [facility] 04-05-2024 14:22-0500 Diastolic blood pressure 64 mm[Hg] Dr. Lena Thorne MD Work Phone: [facility] 04-05-2024 14:22-0500 Heart rate 74 /min Dr. Lena Thorne MD Work Phone: [facility] 04-05-2024 14:22-0500 SaO2% (BldA) [Mass fraction] 98 % Dr. Lena Thorne MD Work Phone: [facility] 04-05-2024 14:22-0500 Systolic blood pressure 102 mm[Hg] Dr. Lena Thorne MD Work Phone: [facility] 10-30-2023 11:32-0400 Body height 170.2 cm Julian Kruse MD Work Phone: [facility] 10-30-2023 11:32-0400 Body mass index (BMI) [Ratio] 22.71 kg/m2 Julian Kruse MD Work Phone: [facility] 10-30-2023 11:32-0400 Body temperature 97 [degF] Julian Kruse MD Work Phone: [facility] 10-30-2023 11:32-0400 Body weight 65.77 kg Julian Kruse MD Work Phone: [facility] 10-30-2023 11:32-0400 Diastolic blood pressure 60 mm[Hg] Julian Kruse MD Work Phone: [facility] 10-30-2023 11:32-0400 Heart rate 77 /min Julian Kruse MD Work Phone: [facility] 10-30-2023 11:32-0400 Systolic blood pressure 122 mm[Hg] Julian Kruse MD Work Phone: [facility] 09-25-2023 10:59-0400 Body height 170.2 cm Julian Kruse MD Work Phone: [facility] 09-25-2023 10:59-0400 Body mass index (BMI) [Ratio] 23.18 kg/m2 Julian Kruse MD Work Phone: [facility] 09-25-2023 10:59-0400 Body temperature 97.2 [degF] Julian Kruse MD Work Phone: [facility] 09-25-2023 10:59-0400 Body weight 67.13 kg Julian Kruse MD Work Phone: [facility] 09-25-2023 10:59-0400 Diastolic blood pressure 66 mm[Hg] Julian Kruse MD Work Phone: [facility] 09-25-2023 10:59-0400 Heart rate 80 /min Julian Kruse MD Work Phone: [facility] 09-25-2023 10:59-0400 Systolic blood pressure 132 mm[Hg] Julian Kruse MD Work Phone: [facility] 09-10-2023 13:03-0400 Body temperature 97.9 [degF] Julian Kruse MD Work Phone: [facility] 09-10-2023 13:03-0400 Diastolic blood pressure 66 mm[Hg] Julian Kruse MD Work Phone: [facility] 09-10-2023 13:03-0400 Heart rate 68 /min Julian Kruse MD Work Phone: [facility] 09-10-2023 13:03-0400 Respiratory rate 20 /min Julian Kruse MD Work Phone: [facility] 09-10-2023 13:03-0400 SaO2% (BldA) [Mass fraction] 99 % Julian Kruse MD Work Phone: [facility] 09-10-2023 13:03-0400 Systolic blood pressure 121 mm[Hg] Julian Kruse MD Work Phone: [facility] 09-09-2023 06:39-0400 Body mass index (BMI) [Ratio] 24.14 kg/m2 Julian Kruse MD Work Phone: [facility] 09-09-2023 06:39-0400 Body weight 69.9 kg Julian Kruse MD Work Phone: [facility] 08-28-2023 10:01-0400 Body mass index (BMI) [Ratio] 24.12 kg/m2 Julian Kruse MD Work Phone: [facility] 08-28-2023 10:01-0400 Body temperature 97.5 [degF] Julian Kruse MD Work Phone: [facility] 08-28-2023 10:01-0400 Body weight 69.85 kg Julian Kruse MD Work Phone: [facility] 08-28-2023 10:01-0400 Diastolic blood pressure 60 mm[Hg] Julian Kruse MD Work Phone: [facility] 08-28-2023 10:01-0400 Heart rate 98 /min Julian Kruse MD Work Phone: [facility] 08-28-2023 10:01-0400 Systolic blood pressure 112 mm[Hg] Julian Kruse MD Work Phone: [facility] 08-25-2023 09:00-0400 Body temperature 97.39 [degF] Jayjay Fortune MD Work Phone: [facility] 08-25-2023 09:00-0400 Diastolic blood pressure 53 mm[Hg] Jayjay Fortune MD Work Phone: [facility] 08-25-2023 09:00-0400 Heart rate 74 /min Jayjay Fortune MD Work Phone: [facility] 08-25-2023 09:00-0400 Respiratory rate 18 /min Jayjay Fortune MD Work Phone: [facility] 08-25-2023 09:00-0400 SaO2% (BldA) [Mass fraction] 98 % Jayjay Fortune MD Work Phone: [facility] 08-25-2023 09:00-0400 Systolic blood pressure 95 mm[Hg] Jayjay Fortune MD Work Phone: [facility] 08-21-2023 13:10-0400 Body height 170.2 cm Jayjay Fortune MD Work Phone: [facility] 08-21-2023 13:10-0400 Body mass index (BMI) [Ratio] 23.49 kg/m2 Jayjay Fortune MD Work Phone: [facility] 08-21-2023 13:10-0400 Body weight 68.04 kg Jayjay Fortune MD Work Phone: [facility] 08-20-2023 12:58-0400 Diastolic blood pressure 85 mm[Hg] Don Bell MD Work Phone: [facility] 08-20-2023 12:58-0400 Heart rate 77 /min Don Bell MD Work Phone: [facility] 08-20-2023 12:58-0400 Respiratory rate 16 /min Don Bell MD Work Phone: [facility] 08-20-2023 12:58-0400 SaO2% (BldA) [Mass fraction] 100 % Don Bell MD Work Phone: [facility] 08-20-2023 12:58-0400 Systolic blood pressure 129 mm[Hg] Don Bell MD Work Phone: [facility] 08-20-2023 06:30-0400 Body height 170.2 cm Don Bell MD Work Phone: [facility] 08-20-2023 06:30-0400 Body mass index (BMI) [Ratio] 23.49 kg/m2 Don Bell MD Work Phone: [facility] 08-20-2023 06:30-0400 Body weight 68.04 kg Don Bell MD Work Phone: [facility] 08-20-2023 06:27-0400 Body temperature 97.7 [degF] Don Bell MD Work Phone: [facility] 08-04-2023 11:14-0400 Diastolic blood pressure 78 mm[Hg] Julian Kruse MD Work Phone: [facility] 08-04-2023 11:14-0400 Heart rate 74 /min Julian Kruse MD Work Phone: [facility] 08-04-2023 11:14-0400 Respiratory rate 16 /min Julian Kruse MD Work Phone: [facility] 08-04-2023 11:14-0400 SaO2% (BldA) [Mass fraction] 100 % Julian Kruse MD Work Phone: [facility] 08-04-2023 11:14-0400 Systolic blood pressure 120 mm[Hg] Julian Kruse MD Work Phone: [facility] 08-04-2023 09:56-0400 Body height 170.2 cm Julian Kruse MD Work Phone: [facility] 08-04-2023 09:56-0400 Body mass index (BMI) [Ratio] 23.96 kg/m2 Julian Kruse MD Work Phone: [facility] 08-04-2023 09:56-0400 Body weight 69.4 kg Julian Kruse MD Work Phone: [facility] 08-04-2023 09:42-0400 Body temperature 97.11 [degF] Julian Kruse MD Work Phone: [facility] 06-26-2023 10:54-0400 Body height 170.2 cm Julian Kruse MD Work Phone: [facility] 06-26-2023 10:54-0400 Body mass index (BMI) [Ratio] 24.43 kg/m2 Julian Kruse MD Work Phone: [facility] 06-26-2023 10:54-0400 Body temperature 97.2 [degF] Julian Kruse MD Work Phone: [facility] 06-26-2023 10:54-0400 Body weight 70.76 kg Julian Kruse MD Work Phone: [facility] 06-26-2023 10:54-0400 Diastolic blood pressure 79 mm[Hg] Julian Kruse MD Work Phone: [facility] 06-26-2023 10:54-0400 Heart rate 76 /min Julian Kruse MD Work Phone: [facility] 06-26-2023 10:54-0400 Systolic blood pressure 120 mm[Hg] Julian Kruse MD Work Phone: [facility] 05-27-2023 16:07-0400 Body height 170.[address] Lena Thorne Work Phone: [facility] 05-27-2023 16:07-0400 Body mass index (BMI) [Ratio] 23.9 kg/m2 Dr. Lena Thorne Work Phone: [facility] 05-27-2023 16:07-0400 Body temperature 97.6 [degF] Dr. Lena Thorne Work Phone: [facility] 05-27-2023 16:07-0400 Body weight 69.[address] Lena Thorne Work Phone: [facility] 05-27-2023 16:07-0400 Diastolic blood pressure 70 mm[Hg] Dr. Lena Thorne Work Phone: [facility] 05-27-2023 16:07-0400 Heart rate 65 /min Dr. Lena Thorne Work Phone: [facility] 05-27-2023 16:07-0400 Respiratory rate 16 /min Dr. Lena Thorne Work Phone: [facility] 05-27-2023 16:07-0400 SaO2% (BldA) [Mass fraction] 99 % Dr. Lena Thorne Work Phone: [facility] 05-27-2023 16:07-0400 Systolic blood pressure 116 mm[Hg] Dr. Lena Thorne Work Phone: [facility] 01-20-2023 13:15-0500 Body height 170.[address] Lena Thorne Work Phone: [facility] 01-20-2023 13:15-0500 Body mass index (BMI) [Ratio] 24.7 kg/m2 Dr. Lena Thorne Work Phone: [facility] 01-20-2023 13:15-0500 Body temperature 98.2 [degF] Dr. Lena Thorne Work Phone: [facility] 01-20-2023 13:15-0500 Body weight 71.[address] Lena Thorne Work Phone: [facility] 01-20-2023 13:15-0500 Diastolic blood pressure 72 mm[Hg] Dr. Lena Thorne Work Phone: [facility] 01-20-2023 13:15-0500 Heart rate 80 /min Dr. Lena Thorne Work Phone: [facility] 01-20-2023 13:15-0500 Respiratory rate 16 /min Dr. Lena Thorne Work Phone: [facility] 01-20-2023 13:15-0500 SaO2% (BldA) [Mass fraction] 98 % Dr. Lena Thorne Work Phone: [facility] 01-20-2023 13:15-0500 Systolic blood pressure 120 mm[Hg] Dr. Lena Thorne Work Phone: [facility] 01-01-2023 13:51-0500 Body mass index (BMI) [Ratio] 24.3 kg/m2 Dr. Lena Thorne Work Phone: [facility] 01-01-2023 13:51-0500 Body temperature 97.6 [degF] Dr. Lena Thorne Work Phone: [facility] 01-01-2023 13:51-0500 Body weight 70.[address] Lena Thorne Work Phone: [facility] 01-01-2023 13:51-0500 Diastolic blood pressure 72 mm[Hg] Dr. Lena Thorne Work Phone: [facility] 01-01-2023 13:51-0500 Heart rate 82 /min Dr. Lena Thorne Work Phone: [facility] 01-01-2023 13:51-0500 Respiratory rate 16 /min Dr. Lena Thorne Work Phone: [facility] 01-01-2023 13:51-0500 SaO2% (BldA) [Mass fraction] 99 % Dr. Lena Thorne Work Phone: [facility] 01-01-2023 13:51-0500 Systolic blood pressure 112 mm[Hg] Dr. Lena Thorne Work Phone: [facility] 11-11-2022 13:38-0400 Body temperature 97 [degF] Dr. Lena Thorne Work Phone: [facility] 07-15-2022 14:20-0400 Body height 171.[address] Lena Thorne Work Phone: [facility] 07-15-2022 14:20-0400 Body mass index (BMI) [Ratio] 24.2 kg/m2 Dr. Lena Thorne Work Phone: [facility] 07-15-2022 14:20-0400 Body temperature 98 [degF] Dr. Lena Thorne Work Phone: [facility] 07-15-2022 14:20-0400 Body weight 71.[address] Lena Thorne Work Phone: [facility] 07-15-2022 14:20-0400 Diastolic blood pressure 66 mm[Hg] Dr. Lena Thorne Work Phone: [facility] 07-15-2022 14:20-0400 Heart rate 89 /min Dr. Lena Thorne Work Phone: [facility] 07-15-2022 14:20-0400 Respiratory rate 18 /min Dr. Lena Thorne Work Phone: [facility] 07-15-2022 14:20-0400 SaO2% (BldA) [Mass fraction] 98 % Dr. Lena Thorne Work Phone: [facility] 07-15-2022 14:20-0400 Systolic blood pressure 109 mm[Hg] Dr. Lena Thorne Work Phone: [facility] 07-07-2022 13:13-0400 Body mass index (BMI) [Ratio] 24.2 kg/m2 Dr. Lena Thorne Work Phone: [facility] 07-07-2022 13:13-0400 Body temperature 98 [degF] Dr. Lena Thorne Work Phone: [facility] 07-07-2022 13:13-0400 Body weight 71.[address] Lena Thorne Work Phone: [facility] 07-07-2022 13:13-0400 Diastolic blood pressure 76 mm[Hg] Dr. Lena Thorne Work Phone: [facility] 07-07-2022 13:13-0400 Heart rate 80 /min Dr. Lena Thorne Work Phone: [facility] 07-07-2022 13:13-0400 Respiratory rate 17 /min Dr. Lena Thorne Work Phone: [facility] 07-07-2022 13:13-0400 SaO2% (BldA) [Mass fraction] 95 % Dr. Lena Thorne Work Phone: [facility] 07-07-2022 13:13-0400 Systolic blood pressure 118 mm[Hg] Dr. Lena Thorne Work Phone: [facility] 09-10-2021 15:27-0400 Body height 171.[address] Lena Thorne Work Phone: [facility] Work Phone: 09-10-2021 15:27-0400 Body mass index (BMI) [Ratio] 23.7 kg/m2 Dr. Lena Thorne Work Phone: [facility] Work Phone: 09-10-2021 15:27-0400 Body temperature 95.2 [degF] Dr. Lena Thorne Work Phone: [facility] Work Phone: 09-10-2021 15:27-0400 Body weight 69.[address] Lena Thorne Work Phone: [facility] Work Phone: 09-10-2021 15:27-0400 Diastolic blood pressure 80 mm[Hg] Dr. Lena Thorne Work Phone: [facility] Work Phone: 09-10-2021 15:27-0400 Heart rate 84 /min Dr. Lena Thorne Work Phone: [facility] Work Phone: 09-10-2021 15:27-0400 Respiratory rate 16 /min Dr. Lena Thorne Work Phone: [facility] Work Phone: 09-10-2021 15:27-0400 SaO2% (BldA) [Mass fraction] 99 % Dr. Lena Thorne Work Phone: [facility] Work Phone: 09-10-2021 15:27-0400 Systolic blood pressure 128 mm[Hg] Dr. Lena Thorne Work Phone: [facility] Work Phone: 08-22-2021 15:58-0400 Body mass index (BMI) [Ratio] 23.7 kg/m2 Dr. Lena Thorne Work Phone: [facility] Work Phone: 08-22-2021 15:58-0400 Body temperature 96.4 [degF] Dr. Lena Thorne Work Phone: [facility] Work Phone: 08-22-2021 15:58-0400 Body weight 69.[address] Lena Thorne Work Phone: [facility] Work Phone: 08-22-2021 15:58-0400 Diastolic blood pressure 66 mm[Hg] Dr. Lena Thorne Work Phone: [facility] Work Phone: 08-22-2021 15:58-0400 Heart rate 79 /min Dr. Lena Thorne Work Phone: [facility] Work Phone: 08-22-2021 15:58-0400 Respiratory rate 18 /min Dr. Lena Thorne Work Phone: [facility] Work Phone: 08-22-2021 15:58-0400 SaO2% (BldA) [Mass fraction] 92 % Dr. Lena Thorne Work Phone: [facility] Work Phone: 08-22-2021 15:58-0400 Systolic blood pressure 118 mm[Hg] Dr. Lena Thorne Work Phone: [facility] Work Phone: 06-13-2021 08:56-0400 Body mass index (BMI) [Ratio] 24.4 kg/m2 Dr. Lena Thorne Work Phone: [facility] Work Phone: 06-13-2021 08:56-0400 Body temperature 94.5 [degF] Dr. Lena Thorne Work Phone: [facility] Work Phone: 06-13-2021 08:56-0400 Body weight 71.[address] Lena Thorne Work Phone: [facility] Work Phone: 06-13-2021 08:56-0400 Diastolic blood pressure 70 mm[Hg] Dr. Lena Thorne Work Phone: [facility] Work Phone: 06-13-2021 08:56-0400 Heart rate 81 /min Dr. Lena Thorne Work Phone: [facility] Work Phone: 06-13-2021 08:56-0400 Respiratory rate 20 /min Dr. Lena Thorne Work Phone: [facility] Work Phone: 06-13-2021 08:56-0400 SaO2% (BldA) [Mass fraction] 100 % Dr. Lena Thorne Work Phone: [facility] Work Phone: 06-13-2021 08:56-0400 Systolic blood pressure 112 mm[Hg] Dr. Lena Thorne Work Phone: [facility] Work Phone: 06-13-2021 08:56-0400 Body height 171.[address] Lena Thorne Work Phone: [facility] Work Phone: 06-13-2021 08:56-0400 Body mass index (BMI) [Ratio] 24.4 kg/m2 Dr. Lena Thorne Work Phone: [facility] Work Phone: 06-13-2021 08:56-0400 Body temperature 94.5 [degF] Dr. Lena Thorne Work Phone: [facility] Work Phone: 06-13-2021 08:56-0400 Body weight 71.[address] Lena Thorne Work Phone: [facility] Work Phone: 06-13-2021 08:56-0400 Diastolic blood pressure 70 mm[Hg] Dr. Lena Thorne Work Phone: [facility] Work Phone: 06-13-2021 08:56-0400 Heart rate 81 /min Dr. Lena Thorne Work Phone: [facility] Work Phone: 06-13-2021 08:56-0400 Respiratory rate 20 /min Dr. Lena Thorne Work Phone: [facility] Work Phone: 06-13-2021 08:56-0400 SaO2% (BldA) [Mass fraction] 100 % Dr. Lena Thorne Work Phone: [facility] Work Phone: 06-13-2021 08:56-0400 Systolic blood pressure 112 mm[Hg] Dr. Lena Thorne Work Phone: [facility] Work Phone: 05-22-2021 14:01-0400 Body mass index (BMI) [Ratio] 24.4 kg/m2 Dr. Lena Thorne Work Phone: [facility] Work Phone: 05-22-2021 14:01-0400 Body temperature 97 [degF] Dr. Lena Thorne Work Phone: [facility] Work Phone: 05-22-2021 14:01-0400 Body weight 72.[address] Lena Thorne Work Phone: [facility] Work Phone: 05-22-2021 14:01-0400 Diastolic blood pressure 76 mm[Hg] Dr. Lena Thorne Work Phone: [facility] Work Phone: 05-22-2021 14:01-0400 Heart rate 92 /min Dr. Lena Thorne Work Phone: [facility] Work Phone: 05-22-2021 14:01-0400 Respiratory rate 18 /min Dr. Lena Thorne Work Phone: [facility] Work Phone: 05-22-2021 14:01-0400 SaO2% (BldA) [Mass fraction] 99 % Dr. Lena Thorne Work Phone: [facility] Work Phone: 05-22-2021 14:01-0400 Systolic blood pressure 106 mm[Hg] Dr. Lena Thorne Work Phone: [facility] Work Phone: 05-22-2021 14:01-0400 Body height 172.[address] Lena Thorne Work Phone: [facility] Work Phone: 05-22-2021 14:01-0400 Body mass index (BMI) [Ratio] 24.4 kg/m2 Dr. Lena Thorne Work Phone: [facility] Work Phone: 05-22-2021 14:01-0400 Body temperature 97 [degF] Dr. Lena Thorne Work Phone: [facility] Work Phone: 05-22-2021 14:01-0400 Body weight 72.[address] Lena Thorne Work Phone: [facility] Work Phone: 05-22-2021 14:01-0400 Diastolic blood pressure 76 mm[Hg] Dr. Lena Thorne Work Phone: [facility] Work Phone: 05-22-2021 14:01-0400 Heart rate 92 /min Dr. Lena Thorne Work Phone: [facility] Work Phone: 05-22-2021 14:01-0400 Respiratory rate 18 /min Dr. Lena Thorne Work Phone: [facility] Work Phone: 05-22-2021 14:01-0400 SaO2% (BldA) [Mass fraction] 99 % Dr. Lena Thorne Work Phone: [facility] Work Phone: 05-22-2021 14:01-0400 Systolic blood pressure 106 mm[Hg] Dr. Lena Thorne Work Phone: [facility] Work Phone: 03-13-2021 12:41-0500 Body mass index (BMI) [Ratio] 24.9 kg/m2 Dr. Lena Thorne Work Phone: [facility] Work Phone: 03-13-2021 12:41-0500 Body temperature 98.2 [degF] Dr. Lena Thorne Work Phone: [facility] Work Phone: 03-13-2021 12:41-0500 Body weight 74.[address] Lena Thorne Work Phone: [facility] Work Phone: 03-13-2021 12:41-0500 Diastolic blood pressure 76 mm[Hg] Dr. Lena Thorne Work Phone: [facility] Work Phone: 03-13-2021 12:41-0500 Heart rate 87 /min Dr. Lena Thorne Work Phone: [facility] Work Phone: 03-13-2021 12:41-0500 Respiratory rate 14 /min Dr. Lena Thorne Work Phone: [facility] Work Phone: 03-13-2021 12:41-0500 SaO2% (BldA) [Mass fraction] 97 % Dr. Lena Thorne Work Phone: [facility] Work Phone: 03-13-2021 12:41-0500 Systolic blood pressure 110 mm[Hg] Dr. Lena Thorne Work Phone: [facility] Work Phone: Encounters Encounter Date Encounter Type Care Provider Facility Start: 12-26-2024 ambulatory Lena Ambrocioi ty:[facility] Start: 11-29-2024 End: 11-29-2024 Patient encounter procedure Angelica BHAKTA -[facility] Work Phone: Start: 11-29-2024 End: 11-29-[address] Lena Thorne MD Work Phone: -[facility] Start: 11-21-2024 End: 11-21-2024 Patient encounter procedure Sylvester Bhakta MD -Laboratory Work Phone: Start: 11-21-2024 End: 11-21-[address] Lena Thorne MD Work Phone: -[facility] Start: 11-21-2024 End: 11-21-[address] Sylvester Bhakta MD -[facility] Work Phone: Start: 11-21-2024 End: 11-21-2024 ambulatory Lena Thorne Facility:[facility] Start: 11-03-2024 End: 11-03-[address] Lena Thorne MD Work Phone: -[facility] Start: 11-03-2024 End: 11-03-[address] Lena Thorne MD -[facility] Work Phone: Start: 11-03-2024 End: 11-03-2024 ambulatory [facility] Facility:[facility] Start: 10-24-2024 End: 10-24-[address] Lena Thorne MD -[facility] Work Phone: Start: 10-24-2024 End: 10-24-[address] Lena Thorne MD Work Phone: -[facility] Start: 10-24-2024 End: 10-24-2024 [facility] Start: 10-21-2024 End: 10-21-[address] Lena Thorne MD Work Phone: -[facility] Start: 10-21-2024 End: 10-21-[address] Lena Thorne MD -[facility] Start: 10-21-2024 End: 10-21-2024 [facility] Start: 08-04-2024 End: 08-04-[address] Sylvester Bhakta MD -[facility] Work Phone: Start: 08-04-2024 End: 08-04-[address] Lena Thorne MD Work Phone: [facility] Work Phone: Start: 08-01-2024 Non-patient / Non-visit Dr. Carlos em MD -[facility] Start: 08-01-2024 End: 08-01-[address] Lena Thorne MD Work Phone: [facility] Work Phone: Start: 08-01-2024 End: 08-01-2024 Patient encounter procedure Alcira Angelo PA -Cardiovascular Services Work Phone: Start: 08-01-2024 End: 08-01-2024 ambulatory [facility] Facility[facility] Start: 07-19-2024 End: 07-19-[address] Deanna Fregoso MD -[facility] Work Phone: Start: 07-19-2024 End: 07-19-[address] Lena Thorne MD Work Phone: [facility] Work Phone: Start: 06-15-2024 End: 06-15-[address] Lena Thorne MD -[facility] Start: 06-15-2024 End: 06-15-[address] Lena Thorne MD -[facility] Work Phone: Start: 06-15-2024 End: 06-15-2024 [facility] Start: 06-15-2024 End: 06-15-2024 ambulatory [facility] Facility:[facility] Start: 04-05-2024 End: 04-05-[address] Sylvester Bhakta MD -[facility] Work Phone: Start: 04-05-2024 End: 04-05-2024 ambulatory Efewongbe Oleghe Facility:[facility] Start: 03-09-2024 End: 03-09-2024 ambulatory Efewongbe Olee Facility:[facility] Start: 02-19-2024 End: 02-19-2024 Telephone encounter Stephania Mota MA [facility] [place] Start: 01-05-2024 End: 01-05-2024 ambulatory Efewongbe Oleghe Facility:[facility] Start: 10-30-2023 End: 10-30-2023 Postop follow up visit related to original px Julian Kruse MD Work Phone: [facility] [place] Comment on above: Encounter for postop erative care (Primary Dx); Hiatal hernia; GERD without esophagitis Start: 10-30-2023 End: 10-30-2023 ambulatory JULIAN KRUES [facility] Start: 10-02-2023 End: 10-02-2023 Telephone encounter Whitney Ball PA-C Work Phone: [facility] Start: 09-28-2023 End: 09-28-2023 Documentation procedure Autumn Worley RN [facility] Start: 09-25-2023 End: 09-25-2023 Postop follow up visit related to original px Julian Kruse MD Work Phone: [facility] Comment on above: Encounter for postop erative care (Primary Dx); Hiatal hernia; GERD without esophagitis; Oral thrush Start: 09-25-2023 End: 09-25-2023 ambulatory [facility] Start: 09-09-2023 End: 09-10-2023 Subsequent hospital visit by physician Julian Kruse MD Work Phone: [facility] Medical Surgical Unit [facility] H5 Comment on above: Hiatal hernia (Prima ry Dx) Start: 09-09-2023 End: 09-10-2023 Unknown JULIAN KRUSE [facility] Start: 09-04-2023 End: 09-04-2023 ambulatory Autumn Worley RN [facility] Start: 08-28-2023 End: 08-28-2023 Office outpatient visit 25 minutes Julian Kruse MD Work Phone: [facility] Comment on above: GERD without esophag itis (Primary Dx); Hiatal hernia Start: 08-28-2023 End: 08-28-2023 ambulatory [facility] Start: 08-25-2023 End: 08-25-2023 Telephone encounter Татьяна Muñiz PA-C Work Phone: [facility] Advanced [facility]roscopic [facility] Comment on above: Appointment Start: 08-24-2023 End: 09-16-2023 Telephone encounter Juliette Vásquez MD Work Phone: [facility] Endocrinology Comment on above: OTHER Start: 08-21-2023 End: 08-25-2023 Evaluation and management of inpatient Jayjay Fortune MD Work Phone: [facility] Medical Surgical Unit [facility] H5 Comment on above: Generalized abdomina l pain (Primary Dx); Nausea and vomiting, unspecified vomiting type Start: 08-20-2023 End: 08-20-2023 Emergency department patient visit Don Bell MD Work Phone: [facility] EMERGENCY DEPT Comment on above: Abdominal pain, unsp ecified abdominal location (Primary Dx); Constipation, unspecified constipation type Start: 08-04-2023 End: 08-04-2023 [facility] Work Phone: [facility] Start: 08-04-2023 End: 08-04-2023 Anesthesia consultation Lazaro Escobar DO Work Phone: [facility] [address] Start: 08-04-2023 End: 08-04-2023 ambulatory Whitneyher Quinn CLARK Work Phone: [facility] Start: 08-04-2023 End: 08-04-2023 Subsequent hospital visit by physician Julian Kruse MD Work Phone: [facility] [address] Comment on above: Diaphragmatic hernia without obstruction or gangrene; Gastro-esophageal reflux disease without esophagitis Start: 07-29-[address] Lena Thorne MD Work Phone: [facility] Start: 07-24-2023 End: 07-24-2023 Subsequent hospital visit by physician Julian Kruse MD Work Phone: [facility] X-Ray Comment on above: Hiatal hernia Start: 07-24-2023 End: 07-24-2023 ambulatory LENA THORNE [facility] Start: 07-15-2023 Admission to [facility] Whitney Ball PA-C Work Phone: [facility] Advanced [facility]roscopic [facility] Start: 07-15-2023 ambulatory Whitney Ball PA-C Work Phone: [facility] Start: 06-29-2023 Telephone encounter Julian cortez MD Work Phone: [facility] Start: 06-26-2023 End: 06-26-2023 Office outpatient new 45 minutes Julian Kruse MD Work Phone: [facility]roscopic Surgery Comment on above: Hiatal hernia (Prima ry Dx); GERD without esophagitis Start: 06-26-2023 End: 06-26-2023 ambulatory LENA THORNE [facility] Start: 06-02-2023 Telephone encounter Julian cortez MD Work Phone: [facility] Advanced Laproscopic Surgery Comment on above: Results Start: 05-27-2023 End: 05-27-[address] Lena Thorne Work Phone: [facility] Work Phone: Start: 05-27-2023 End: 05-27-[address] Lena Thorne Work Phone: [facility]-Radiology, [facility] Work Phone: Start: 05-27-2023 End: 05-27-[address] Lena Thorne Work Phone: [facility] Internal Medicine Work Phone: Start: 02-12-2023 End: 02-12-[address] Lena Thorne Work Phone: [facility] Work Phone: Start: 02-12-2023 End: 02-12-[address] Lena Thorne Work Phone: [facility]-Laboratory Work Phone: Start: 01-20-2023 End: 01-20-[address] Lena Thorne Work Phone: [facility] Endocrinology Work Phone: Start: 01-01-2023 End: 01-01-[address] Lena Thorne Work Phone: [facility] Internal Medicine Work Phone: Start: 12-30-2022 End: 12-30-[address] Lena Thorne Work Phone: [facility] Work Phone: Start: 12-30-2022 End: 12-30-[address] Lena Thorne Work Phone: [facility]-Laboratory, [facility] Start: 11-11-2022 End: 11-11-[address] Lena Thorne Work Phone: [facility] Internal Medicine Work Phone: Start: 09-11-2022 End: 09-11-[address] Lena Thorne Work Phone: [facility] Work Phone: Start: 09-11-2022 End: 09-11-[address] Lena Thorne Work Phone: [facility]-Outpatient Breast Imaging Work Phone: Start: 07-15-2022 End: 07-15-[address] Lena Thorne Work Phone: [facility] Endocrinology Work Phone: Start: 07-07-2022 End: 07-07-2022 Encounter for general adult medical examination without abnormal findings Dr. Lena Thorne Work Phone: [facility] Start: 07-07-2022 End: 07-07-[address] L[facility] Thorne Work Phone[facility] Work Phone: Start: 09-12-2021 End: 09-12-[address] Lena Thorne Work Phone: [facility] Endocrinology Start: 09-10-2021 End: 09-10-[address] Lena Thorne Work Phone: [facility]-Outpatient Bone Densitometry Start: 08-22-[address] Lena Thorne Work Phone: [facility] Start: 08-22-2021 End: 08-22-2021 Encounter for general adult medical examination without abnormal findings Dr. Lena Thorne Work Phone: [facility] Internal Medicine Start: 08-22-2021 End: 08-22-[address] Lena Thorne Work Phone: [facility] Internal Medicine Start: 06-26-2021 Non-patient / Non-visit Dr. Ruben Thorne Work Phone: [facility] Start: 06-26-2021 End: 06-26-[address] Lena Thorne Work Phone: [facility]Cardiov[facility]cula [facility] Services Start: 06-13-2021 End: 06-13-[address] Lena Thorne Work Phone: [facility] Endocrinology Start: 05-27-2021 End: 05-27-[address] Lena Thorne Work Phone: [facility], [facility] Start: 05-22-2021 End: 05-22-[address] Lena Thorne Work Phone: [facility] [place] Start: 03-13-2021 End: 03-13-[address] Lena Thorne Work Phone: [facility] Internal Medicine Procedures Date Procedure Procedure [...] trcg only w/o i&r Latasha Reilly Yen PEER EDUCATOR - LABEL STAMPER Work Phone: Start: 08-25-2023 Glucose quantitative blood [...] DTaP/Tdap/Td Vaccines (2 - Td or Tdap) [facility] Start: 11-11-2027 DTaP/Tdap/Td Vaccines (3 - Td or Tdap) DTaP/Tdap/Td Vaccines (3 - Td or Tdap) [facility] Start: 11-21-2024 Thyroperoxidase Ab [Units/volume] in Serum or Plasma [facility] Start: 10-24-2024 Urine microalbumin/creatinine ratio measurement [facility] Start: 09-09-2024 Diabetes: Estimated Glomerular Filtration Rate for Kidney Health Diabetes: Estimated Glomerular Filtration Rate for [facility] Health [facility] Start: 10-30-2023 End: 10-30-2023 Patient encounter procedure 10/30/2023 11:30 AM EDT Office Visit [facility] [address] [place] [address] [place] [phone] Julian Kruse MD [address] [place] [address] [place] [id number] [facility] Start: 10-27-2023 End: 10-27-2023 Patient encounter procedure 10/27/2023 9:00 AM EDT Office Visit [facility] [address] [place] [phone] Whitney Ball PA-C [address] [place], [place] [phone] [facility] Start: 10-18-2023 COVID-19 Vaccine ( season) COVID-19 Vaccine () [facility] Start: 10-18-2023 COVID-19 Vaccine ( season) COVID-19 Vaccine () [facility] Start: 10-18-2023 Influenza vaccination Influenza Vaccine (#1) [facility] Start: 09-25-2023 End: 09-25-2023 Patient encounter procedure 09/25/2023 11:15 AM EDT Office Visit [facility] [address] [place] [phone] Julian Kruse MD [address] [facility] [address] [place] [address] [facility] Start: 09-09-2023 End: 09-09-2023 Admission to same day surgery center [facility] MAIN OR Comment on above: LAPAROSCOPIC HIATAL HERNIA REPAIR, WITH MESH, WITH POSTERIOR FUNDOPLICATION, POSSIBLE OPEN [80418 (CPT )] LAPAROSCOPIC HIATAL HERNIA REPAIR, WITH MESH, WITH POSTERIOR FUNDOPLICATION, [98953 (CPT )] Start: 09-09-2023 End: 09-09-2023 Egd transoral biopsy single/multiple [facility] Operating Room Start: 09-09-2023 End: 09-09-2023 Laps rpr paraesphgl hrna incl fundplsty w/mesh [facility] Operating Room Start: 09-09-2023 Subsequent hospital visit by physician [facility] MAIN OR Start: 09-02-2023 End: 09-02-2023 Admission to same day surgery center 09/02/2023 7:00 AM EDT - 09/02/2023 9:30 AM EDT Surgery [facility] MAIN OR [address] [place] [phone] Julian Kruse MD [address] [facility] [address] [place] [address] LAPAROSCOPIC HIATAL HERNIA REPAIR, WITH MESH, WITH POSTERIOR FUNDOPLICATION, POSSIBLE OPEN [48546 (CPT )] [facility] MAIN OR Comment on above: LAPAROSCOPIC HIATAL HERNIA REPAIR, WITH MESH, WITH POSTERIOR FUNDOPLICATION, POSSIBLE OPEN [93270 (CPT )] Start: 09-02-2023 End: 09-02-2023 Egd transoral biopsy single/multiple ESOPHAGOGASTRODUODENOSCOPY WITH BIOPSY Diaphragmatic hernia without obstruction or gangrene Acute bronchiolitis, unspecified 09/02/2023 7:00 AM EDT [facility] Operating Room Start: 09-02-2023 End: 09-02-2023 Laps rpr paraesphgl hrna incl fundplsty w/mesh LAPAROSCOPY REPAIR PARAESOPHAGEAL HERNIA INCLUDING FUNDOPLASTY WITH MESH Diaphragmatic hernia without obstruction or gangrene Acute bronchiolitis, unspecified 09/02/2023 7:00 AM EDT [facility] Operating Room Start: 09-02-2023 Subsequent hospital visit by physician 09/02/2023 5:00 AM EDT Hospital Encounter [facility] MAIN OR [address] [place] [phone] Julian Kruse MD [address] [facility] [address] [place] [address] [facility] MAIN OR Start: 08-28-2023 End: 08-28-2023 Patient encounter procedure 08/28/2023 10:00 AM EDT Consult [facility] [address] [facility] [address] [place] [phone] Julian Kruse MD [address] [facility] [address] [place], [place] [phone] [facility] Laproscopic Surgery Start: 08-26-2023 End: 08-26-2023 Admission to establishment [facility] Pre-Admit Testing Start: 08-04-2023 End: 08-04-2023 Admission to same day surgery center 08/04/2023 11:00 AM EDT - 08/04/2023 11:30 AM EDT Surgery [facility] [address] [place] [phone] Julian Kruse MD [address] [place] [id number] ESOPHAGOGASTRODUODENOSCOPY WITH BIOPSY [40099 (CPT )] [facility] [address] Comment on above: ESOPHAGOGASTRODUODENOSCOPY WITH BIOPSY [ 89654 (CPT )] Start: 08-04-2023 Subsequent hospital visit by physician 08/04/2023 11:00 AM EDT Hospital Encounter [facility] [address] [place] [phone] [address] [place] [phone] [facility] [address] Start: 08-04-2023 End: 08-04-2023 Egd transoral biopsy single/multiple [facility] G[facility]ology Start: 07-24-2023 End: 07-24-2023 Patient encounter procedure 07/24/2023 10:00 AM EDT Appointment [facility] X[facility] [address] [place] [phone] [address] [place] [id number] [facility] X[facility] Start: 06-26-2023 End: 06-25-2024 RF Upper gastrointestinal tract and Small bowel Single view W contrast PO FL upper GI double contrast w KUB Imaging Routine Hiatal hernia Expected: 06/26/2023, Expires: 06/25/2024 [facility] [employer] Work Phone: Comment on above: Expected: 06/26/2023, Expires: Start: 06-26-2023 End: 06-26-2023 Patient encounter procedure 06/26/2023 11:15 AM EDT Office Visit [facility]roscopic Surgery [address] [facility] [address] [place] [address] Julian Kruse MD [address] [facility] [address] [place] [address] [facility] Start: 10-17-2022 COVID-19 Vaccine ( season) COVID-19 Vaccine ( season) [facility] Start: 2021 RSV Immunization for Adults (1 - 1-dose 75+ series) RSV Immunization for Adults (1 - 1-dose 75+ series) [facility] Start: 05-22-2021 Patient referral [facility] Work Phone: Start: 2006 RSV Immunization aged 60 or older (1 - 1-dose 60+ series) RSV Immunization aged 60 or older (1 - 1-dose 60+ series) [facility] Start: 1996 Zoster Vaccines (1 of 2) Zoster Vaccines (1 of 2) [facility] Start: 1964 Diabetes: Urine Albumin-Creatinine Ratio for Kidney Health Diabetes: Urine Albumin-Creatinine Ratio for Kidney Health [facility] Start: 1964 Hepatitis C screening Hepatitis C Screening [facility] Start: 1958 Depression Screening Depression Screening [facility] Start: 1946 Medicare Annual Wellness (AWV) Medicare Annual Wellness (AWV) [facility] Start: 1945 Screening for osteoporosis Bone Density Scan [facility] CBC W Auto Different ial panel - Blood [facility] Work Phone: CBC W Auto Different ial panel - Blood [facility] Creatinine [Mass/vol ume] in Urine collected for unspecified duration [facility] DXA Bone [Mass/Area] Bone density [facility] Hemoglobin A1c/Hemoglobin.total in Blood [facility] Lipid 1995 panel - S alfredo or Plasma [facility] Work Phone: Lipid 1995 panel - S alfredo or Plasma [facility] Lipid 1995 panel - S alfredo or Plasma [facility] Microalbumin [Mass/v olume] in Urine [facility] Patient referral [facility] Work Phone: Thyroid stimulating hormone measurement [facility] Tissue exam [facility] Work Phone: Comment on above: Release Upon Ordering for 1 Occurrences starting 08/04/2023 Urine microalbumin/c reatinine ratio measurement [facility] Work Phone: [place] Thyroid gland [facility] Immunizations Immunization Date Immunization Notes Care Provider [facility] 11-29-2024 Seasonal trivalent influenza vaccine, adjuvanted, preservative free Dr. Lena Thorne MD Work Phone: [facility] 12-03-2023 Seasonal trivalent influenza vaccine, adjuvanted, preservative free Dr. Lena Thorne MD Work Phone: [facility] 11-11-2022 influenza, injectabl e, quadrivalent, preservative free Dr. Lena Thorne Work Phone: [facility] 11-11-2022 influenza virus vacc ine, unspecified formulation Don Bell MD Work Phone: [facility] 12-20-2021 Influenza, High-dose Seasonal, Quadrivalent, Preservative Free Julian Kruse MD Work Phone: [facility] 04-27-2020 Covid (Moderna) Dr. Denny Thorne Work Phone: [facility] 10-17-2019 influenza, high dose seasonal, preservative-free Julian Kruse MD Work Phone: [facility] 11-17-2018 pneumococcal polysaccharide vaccine, [address] Lena Thorne Work Phone: [facility] 11-17-2018 pneumococcal vaccine , unspecified formulation Dr. Lena Thorne Work Phone: [facility] Work Phone: 11-17-2018 Fluad 2019-20 65yr up(PF)45 mcg(15 mcgx3)/0.5 mL intramuscular syringe (flu vac Dr. Lena Thorne Work Phone: [facility] Work Phone: 12-08-[address] Lena Thorne Work Phone: [facility] 12-08-2017 influenza, seasonal, injectable, preservative free Julian Kruse MD Work Phone: [facility] 11-10-2017 pneumococcal vaccine , unspecified formulation Dr. Lena Thorne Work Phone: [facility] Work Phone: 11-10-2017 diphtheria, tetanus toxoids and acellular pertussis vaccine, unspecified formulation Dr. Lena Thorne Work Phone: [facility] Work Phone: 11-10-2017 pneumococcal conjuga te vaccine, [address] Lena Thorne Work Phone: [facility] 11-10-2017 tetanus toxoid, redu zohaib diphtheria toxoid, and acellular pertussis vaccine, adsorbed Dr. Lena Thorne Work Phone: [facility] 12-18-2008 novel influenza-H1N1 -09, preservative-free, injectable Julian Kruse MD Work Phone: [facility] Payers Date Payer Category Payer Self-pay [id number] 2021 Medicare supplementa l policy (as second payer) [facility] MEDICARE SUPPLEMENT [id number] 2021 Unknown [employer] MEDICARE SUPPLEMENT [id number] 2021-Present [address] [place] [address] Supplement [id number] 2012 Unknown [id number] 2011 Medicare [id number] 2011 Medicare [id number] Unknown [id number] Unknown [id number] .462 Unknown [id number] .462 Unknown [id number] .462 Unknown [id number] .462 Unknown [id number] [id number] .462 Unknown [id number] 2.16.840.1.075100.3.579.2 .462 Unknown [id number] [id number] .462 Unknown [id number] [id number] .462 Unknown [id number] 2.16.840.1.351414.3.579.2 .462 Unknown [id number] [id number] .462 Unknown [id number] [id number] .462 Unknown [id number] [id number] .462 Unknown [id number] [id number] .462 Unknown [id number] Unknown [id number] Unknown [id number] Social History Date Type Detail Facility Start: 05-22-2021 End: 05-27-2023 Tobacco smoking status NHIS Unknown if ever smoked [facility] Start: 1945 Sex Assigned At Female [facility] Start: 1945 Sex Assigned At Not on file [facility] Start: 06-26-2023 End: 10-30-2023 Gender identity Not on file [facility] Start: 06-26-2023 End: 07-29-2023 Tobacco smoking status NHIS Never smoked tobacco [facility] Start: 06-26-2023 Tobacco use and exposure Smokeless tobacco non-user [facility] Start: 06-26-2023 Alcohol intake Current drinke r of alcohol (finding) [facility] Start: 06-26-[address] [facility] Start: 06-26-2023 End: 10-30-2023 History of Social function [facility] Start: 08-04-2023 End: 10-30-2023 Alcoholic beverage intake Ex-drinker (finding) [facility] How often to you hav e a drink containing alcohol? Never [facility] How many standard drinks containing alcohol do you have on a typical day? Patient does not drink [facility] Within the last year , have you been afraid of your partner or ex-partner? No [facility] Start: 06-02-2023 Sex Female (finding) [facility] Medical Equipment Procedure Code Equipment [...] 06-13-2021 Lancets (Accu-Ch ek Fastclix Lancet Drum) [facility] Start: 09-12-2021 Pen Needle, Diab etic 32 [...] & Type Note Facility 11-29-2024 Progress note [facility] 10-24-2024 Evaluation note Diagnosis Onset Date Resolution [...] diabetes mellitus chronic November 21, 2024 2:20pm [facility] Work Phone: 1(653) 586-403306-19-2025 Evaluation note* Diagnosis Onset Date Resolution Status [...] 12:54pm Hyperlipidemia chronic October 24, 2024 12:54pm [facility] Work Phone: 1(679) 507-110606-19-2025 Evaluation note* Diagnosis Onset Date Resolution Status [...] 2024 2:20pm Thyroid nodule chronic November 2:20pm [facility] Work Phone: 1(210) 982-761706-03-2025 Evaluation note* Diagnosis Onset Date Resolution Status [...] Thyroid nodule chronic August 04, 2024 2:18pm [place] [facility] Work Phone: 1(839) 260-565706-03-2025 Evaluation note* Diagnosis Onset Date Resolution Status [...] 12:54pm Hyperlipidemia chronic October 24, 2024 12:54pm [facility] Work Phone: 1(736) 595-757706-03-2025 Progress [facility] [address] [place] [address] OFFICE VISIT Date of Service: 07/19/24 MR#: [id number] Acct: [id number] Name: SHEYLA RAMIREZ Rep #: [id number] : 1945 Provider: Dr. Justen Fregoso MD Age/Sex: 78/F [place] 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 Sculpture Required: No Accompanied by: Self Is patient [...] #6 ea 04/05/24 07/19/24 Rx (blood-glucose sensor) blood-glucose,kosher dietary service manager,cont #1 ea 04/05/24 07/19/24 Rx (FreeStyle Wilfredo 3 [place]) Tresiba FlexTouch U-100 100 5 unit (0.05 [...] without complications: Status: Chronic Qualifiers: Diabetes mellitus group home insulin use: without oil heaterman use Qualified Code(s): E11.9 - Type 2 [...] current use of insulin E11.9 Diabetes mellitus group home insulin use: without group home use Hyperlipidemia, unspecified hyperlipidemia type E78.5 Hyperlipidemia type: unspecified Coding Level of Care Code Off vis,est,level 4 Diagnoses Carotid artery disease I77.9 Diastolic dysfunction I51.89 Essential (primary) hypertension I10 Controlled type 2 diabetes mellitus without complication, without long-term current use of insulin E11.9 Diabetes mellitus group home insulin use: without oil heaterman use Hyperlipidemia, unspecified hyperlipidemia type E78.5 Hyperlipidemia type: unspecified Clinical Quality Measures Falls Risk Screening/Assistive Devices Have you fallen in the past year?: No Cardiac Ejection fraction %: 65 07/19/24 1433 > Date _ Deanna Fregoso MD Cosigner Signature: Date (if applicable) CC: Dr. Lena Thorne MD ~ [facility]06-03-2025 Progress note Author Deanna Fregoso [facility] Services Note Date/Time July 19, 2024 2:33p m [facility] [address] [place] [address] OFFICE VISIT Date of Service: 07/19/24 MR#: [id number] Acct: [id number] Name: SHEYLA RAMIREZ Rep #: [id number] : 1945 Provider: Dr. 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 Required: No Accompanied by: Self Is patient [...] #6 ea 04/05/24 07/19/24 Rx (blood-glucose sensor) blood-glucose,kosher dietary service manager,cont #1 ea 04/05/24 07/19/24 Rx (FreeStyle Wilfredo 3 [place]) Tresiba FlexTouch U-100 100 5 unit (0.05 [...] without complications: Status: Chronic Qualifiers: Diabetes mellitus group home insulin use: without oil heaterman use Qualified Code(s): E11.9 - Type 2 [...] current use of insulin E11.9 Diabetes mellitus oil heaterman insulin use: without group home use Hyperlipidemia, unspecified hyperlipidemia type E78.5 Hyperlipidemia type: unspecified Coding Level of Care Code Off vis,est,level 4 Diagnoses Carotid artery disease I77.9 Diastolic dysfunction I51.89 Essential (primary) hypertension I10 Controlled type 2 diabetes mellitus without complication, without long-term current use of insulin E11.9 Diabetes mellitus oil heaterman insulin use: without oil heaterman use Hyperlipidemia, unspecified hyperlipidemia type E78.5 Hyperlipidemia type: unspecified Clinical Quality Measures Falls Risk Screening/Assistive Devices Have you fallen in the past year?: No Cardiac Ejection fraction %: 65 07/19/24 1433 <Electronically signed by Deanna Fregoso MD> Date _ Deanna Fregoso MD Cosigner Signature: Date (if applicable) CC: Dr. Lena Thorne MD ~ [facility] Work Phone: 1(765) 223-137804-30-2025 Evaluation note* Diagnosis Onset Date Resolution Status [...] Thyroid nodule chronic August 04, 2024 2:18pm [facility] Work Phone: 1(729) 150-618702-18-2025 Evaluation note* Diagnosis Onset Date Resolution Status [...] :50pm Hyperlipidemia chronic July 19, 2024 1:50pm [facility] Work Phone: 1(645) 224-375101-03-2025 Telephone encounter Note* Telephone Encounter - Татьяна Muñiz PA-C - 02/19/2024 3:03 PM EST Sounds good, thanks. [facility] [id number] Miscellaneous Notes* Telephone Encounter - Татьяна Muñiz [...] get the specifics. DP documented in this [facility]01-03-2025 Telephone encounter Note* Telephone Encounter - [...] few weeks to see if it helps [facility] CenterZqfste64-97-6507 Telephone encounter Note* Telephone Encounter - Татьяна [...] symptoms that should resolve with medical therapy. [facility] CenterEiamkw77-79-2061 Telephone encounter Note* Telephone Encounter - Niesha [...] but cannot. -not taking any medication currently [facility] Dhswsk20-71-5638 Telephone encounter Note* Telephone Encounter - Stephania Mota - 02/19/2024 1:11 PM EST Patient left Voicemail stating that she needs a return call to schedule an appt as she is having some problems since her Lap HH Repair with Dr Kruse on 09/09/2023. Patient did not state exactly what issues she was having. May need to return call and get the specifics. DP [facility] [id number] History of Present illness Narrative* Julian Kruse MD - 10/30/2023 11:30 AM EDT [facility] Medical [facility] - Surgery Patient Name: Sheyla [...] times daily. cholecalciferol (Vitamin D-3) 1.25 MG (70443 UT) capsule Take by mouth 1 (one) [...] VITAMIN PO Take by mouth. nystatin (Mycostatin) 366544 UNIT/ML suspension Swish and spit 5 mL [...] (Gastroenterology) Autumn Worley RN as Registered Nurse (Instrumentation And Controls Technician Manager) Vitor Camarillo (Cardiology) documented in this encounterSMarietta Memorial HospitalLfvgqv46-87-8906 Telephone encounter Note* Telephone Encounter - Whitney [...] and will call with any further concerns. [facility] CenterEfnxme81-94-1377 Miscellaneous Notes* Telephone Encounter - Whitney Ball [...] as we discussed today. documented in this encounterSMarietta Memorial HospitalZgxjgg01-44-6418 Telephone encounter Note* Telephone Encounter - Whitney [...] advance her diet as we discussed today. [facility] CenterLchdbn85-11-9921 History of Present illness Narrative* Autumn Worley RN - 09/28/2023 9:10 AM EDT Images from the original note were not included. Chart reviewed. 30-day [facility] Transition of Care post-hospital discharge on 08/25/23 [...] a 77 y.o. female who presented to [facility] on 09/09/2023 for elective bariatric [...] Commonly known as: AlphaGAN cholecalciferol 1.25 MG (35844 UT) capsule Commonly known as: Vitamin D-3 [...] Your Medications These medications were sent to [facility] [address] [place] [address] Hours: Thursday to Thursday 10 am to [...] MD 09/10/23 1:05 PM documented in this [facility]08-09-2024 History of Present illness Narrative* Julian Kruse MD - 09/25/2023 11:15 AM EDT [facility] - Surgery Patient Name: Sheyla Ramirez Date: [...] times daily. cholecalciferol (Vitamin D-3) 1.25 MG (57377 UT) capsule Take by mouth 1 (one) [...] 17 g by mouth daily. nystatin (Mycostatin) 878681 UNIT/ML suspension Swish and spit 5 mL [...] without esophagitis Other orders - nystatin (Mycostatin) 627269 UNIT/ML suspension; Swish and spit 5 mL [...] (Gastroenterology) Autumn Worley RN as Registered Nurse (Instrumentation And Controls Technician Manager) Vitor Camarillo (Cardiology) documented in this [facility]07-25-2024 Plan of care note* Care Plan - Julian Schmidt RN - 09/10/2023 1:43 PM EDT The patient is The patient's goals for the shift include The clinical goals for the shift include Over the shift, the patient did not make progress toward the following goals. Barriers to progression include . Recommendations to address these barriers include . [facility] CenterMccsun93-75-1294 Miscellaneous Notes* Care Plan - Julian Schmidt [...] Managment Initial Assessment Date: 09/10/2023 Patient Name: Shyela Ramirez : 1945 Patient Information Source of Information: Patient Cognition/Language: WFL - Within Functional Limits Permission given to speak with patient containers sales representative/caregiver as indicated: Confirmation of Payer with patient/family: Yes Payer Name: Medicare Labolt: No Confirmation of Primary Care Physician: Confirmed [...] from the original note were not included. [facility] - Surgery [facility] Physicians Surgery Patient Name: Sheyla Ramirez OPERATIVE NOTE DATE OF PROCEDURE: 09/09/2023 SURGEON: Julian Kruse MD STONE GLUER: Татьяна Muñiz PA-C PREOPERATIVE DIAGNOSIS: Symptomatic Hiatal [...] the left and right awa around the 50-Mauritanian bougie reapproximating the posterior defect created by the right and left posterior crural columns. At this point, because of the defect, a piece of biologic mesh was selected. A piece of ACell Gentrix Hiatal was utilized, rehydrated according to air traffic systems technician's recommendations and introduced into the abdomen. It [...] PA-C was asked to serve as the visitor services assistant for this procedure. documented in this [facility]07-25-2024 Plan of care note* Care Plan - Julian Schmidt RN - 09/10/2023 1:19 PM EDT The patient is The patient's goals for the shift include The clinical goals for the shift include Over the shift, the patient did not make progress toward the following goals. Barriers to progression include . Recommendations to address these barriers include . [facility] CenterBnstip63-80-5704 Note* Care Coordination - Ania Box RN - 09/10/2023 1:13 PM EDT Care Managment Initial Assessment Date: 09/10/2023 Patient Name: Sheyla Ramirez : 1945 Patient Information Source of Information: Patient Cognition/Language: WFL - Within Functional Limits Permission given to speak with patient containers sales representative/caregiver as indicated: Confirmation of Payer with patient/family: Yes Payer Name: Medicare Labolt: No Confirmation of Primary Care Physician: Confirmed [...] needs from tcc. Ania Box RN T [facility] CenterJpfulr91-96-8201 Note* Care Coordination - Ania Box RN - 09/10/2023 1:13 PM EDT Care Managment Initial Assessment Date: 09/10/2023 Patient Name: Sheyla Ramirez : 1945 Patient Information Source of Information: Patient Cognition/Language: WFL - Within Functional Limits Permission given to speak with patient containers sales representative/caregiver as indicated: Confirmation of Payer with patient/family: Yes Payer Name: Medicare Labolt: No Confirmation of Primary Care Physician: Confirmed [...] needs from tcc. Ania Box RN [facility]07-25-2024 NoteDischarge Summary Sheyla Ramirez DOB: 1945 ADMIT DATE: 09/09/2023 DISCHARGE DATE: 09/10/23 ATTENDING PHYSICIAN: Julian Kruse MD VISIT STATUS: Admission CODE STATUS: Full Code DISCHARGE DIAGNOSES: Principal Problem: Hiatal hernia Active Problems: Gastroesophageal reflux disease without esophagitis BMI Classification: Normal Weight (BMI 18.5-24.9) HOSPITAL COURSE: Sheyla Ramirez is a 77 y.o. female who presented to [facility] on 09/09/2023 for elective bariatric [...] Commonly known as: AlphaGAN cholecalciferol 1.25 MG (31173 UT) capsule Commonly known as: Vitamin D-3 [...] Your Medications These medications were sent to [facility] [address] [place], [place] [address] [place] [address] Hours: Thursday to Thursday 10 am to [...] This note may have been dictated using [email or web address] Medical Practice Edition 2.6 and/or Cel-Fi by [employer] Voice Recognition Feature. The document was proofread; however, unrecognized voice recognition strategic communications manager errors may be present. [facility]07-25-2024 Hospital course Narrative* Wilber Coto MD [...] a 77 y.o. female who presented to [facility] on 09/09/2023 for elective bariatric [...] Commonly known as: AlphaGAN cholecalciferol 1.25 MG (00810 UT) capsule Commonly known as: Vitamin D-3 [...] Your Medications These medications were sent to [facility] [address] [place] [address] Hours: Thursday to Thursday 10 am to [...] This note may have been dictated using [email or web address] Medical Practice Edition 2.6 and/or Cel-Fi by [employer] Voice Recognition Feature. The document was proofread; however, unrecognized voice recognition strategic communications manager errors may be present. documented in this [facility]07-25-2024 History of Present illness Narrative* Lane Rey - 09/10/2023 8:10 AM EDT Preliminary negative for leak. * Kandy Smith MD - 09/10/2023 7:00 AM EDT Images from the original note were not included. [facility] - Surgery B[facility] Patient Name: [...] Kandy Smith MD PGY-3, General Surgery Pager# [phone] 09/10/2023 9:40 AM Associated attestation - Julian Kruse MD - 09/10/2023 11:11 AM EDT Images from the original note were not included. [facility] - Surgery Bariat[facility] Care Center Patient Name: Sheyla Ramirez Date: 09/10/23 MIS-General Surgery/Bariatric Progress Note Subjective: The patient is doing well, postoperative day #1 from [facility]. No nausea, vomiting, or adverse eventsovernight. [...] MD 09/10/2023, 11:11 AM documented in this [facility]07-24-2024 Note* Perioperative Nursing Note - Whitney Phelps RN - 09/09/2023 10:43 AM EDT Updated family [place] [id number] Note* Perioperative Nursing Note - Whitney Phelps RN - 09/09/2023 10:43 AM EDT Updated family [place] [id number] NotePatient: Sheyla Ramirez Procedure Summary Date: 09/09/23 Room / Location: [address] Operating Room Anesthesia Start: 658 Anesthesia [...] discharged once all PACU criteria has been met.[facility] [id number] NotePatient: Sheyla Ramirez Procedure Summary Date: 09/09/23 Room / Location: [address] Operating Room Anesthesia Start: 658 Anesthesia [...] Allowed opportunity for questions and acknowledgement of understanding.[facility]07-24-2024 NotePeripheral Block Time Out: 09/09/2023 7:04 AM Patient location during procedure: Procedural Start time: 09/09/2023 7:04 AM End time: 09/09/2023 7:07 AM Reason for block: at surgeon's request and post-op pain management Staffing Performed: LABEL STAMPER Resident/LABEL STAMPER: Luis E Franklin APRN - LABEL STAMPER Preanesthetic Checklist Completed: patient identified, IV checked, site marked, risks and benefits discussed, surgical consent, monitors and equipment checked, pre-op evaluation and timeout performed Region: [place] Primary: TAP (Bupivacaine 0.375%/ Epi 1:200,000/ Dex 0.1mg/mL 40ml divided evenly bilateral) Secondary: Upper rectus (Bupivacaine 0.375%/ Epi 1:200,000/ Dex 0.1mg/mL 20ml divided evenly bilateral) Peripheral Block Patient position: supine Prep: ChloraPrep Patient monitoring: heart rate, environmental monitoring specialist, continuous pulse ox and continuous capnometry O2: [...] plane. and Local anesthetic injected without difficultyMedications nxxBLEHVujkny-rowokiwjowv-hqsqlqveoda (TAP) syringe - Injection 60 mL - 09/09/2023 7:04:00 [facility]07-24-2024 Note* Pre- Procedure Note - Nelda Victor RN - 09/09/2023 7:24 AM EDT Preop blood glucose 155 [facility] CenterSqzcxw89-61-7502 Note* Pre-Procedure Note - Nelda Vicotr RN - 09/09/2023 7:24 AM EDT Preop blood glucose 155 [facility] CenterOdijis53-17-9236 NoteAirway Date/Time: 09/09/2023 7:06 AM Urgency: scheduled Airway not difficult General Information and Staff Patient location during procedure: Procedural Resident/LABEL STAMPER: Asael Ya CRNA Performed: SRNA Indications and [...] approach: 1 Number of other approaches attempted: [address] [place], [place] [address]407-24-2024 Note* Op Note - Julian Kruse MD - 09/09/2023 6:59 AM EDT Images from the original note were not included. [facility] - Surgery [facility] Physicians Surgery Patient Name: Sheyla Ramirez OPERATIVE NOTE DATE OF PROCEDURE: 09/09/2023 SURGEON: Julian Kruse MD STONE GLUER: Татьяна Muñiz PA-C PREOPERATIVE DIAGNOSIS: Symptomatic Hiatal [...] into the abdomen by 5 cm. A [place] drain was used to provide appropriate retraction. [...] the left and right awa around the 50-Mauritanian bougie reapproximating the posterior defect created by the right and left posterior crural columns. At this point, because of the defect, a piece of biologic mesh was selected. A piece of ACell Gentrix Hiatal was utilized, rehydrated according to air traffic systems technician's recommendations and introduced into the abdomen. It [...] PA-C was asked to serve as the visitor services assistant for this procedure. [facility] CenterNscyuh54-73-8380 Note* Op Note - Julian Kruse MD - 09/09/2023 6:59 AM EDT Images from the original note were not included. [facility] - Surgery [facility] Physicians Surgery Patient Name: Sheyla Ramirez OPERATIVE NOTE DATE OF PROCEDURE: 09/09/2023 SURGEON: Julian Kruse MD STONE GLUER: Татьяна Muñiz PA-C PREOPERATIVE DIAGNOSIS: Symptomatic Hiatal [...] into the abdomen by 5 cm. A [place] drain was used to provide appropriate retraction. [...] the left and right awa around the 50-Mauritanian bougie reapproximating the posterior defect created by the right and left posterior crural columns. At this point, because of the defect, a piece of biologic mesh was selected. A piece of ACell Gentrix Hiatal was utilized, rehydrated according to air traffic systems technician's recommendations and introduced into the abdomen. It [...] PA-C was asked to serve as the visitor services assistant for this procedure. [facility] CenterKfnybk69-47-1279 Attending History and physical note* Julian Kruse MD - 09/09/2023 6:53 AM EDT H&P reviewed. The patient was examined and there are no changes to the H&P. Source Note - Julian Kruse MD - 08/28/2023 10:00 AM EDT Images from the original note were not included. [facility] Advanced Laparoscopic Surgery, GERD Evaluation Follow-up Visit [...] 08/22/2023 Performed by Val Chan MD at [facility] ENDOSCOPY SIGMOID COLECTOMY (HISTORICAL) 2010 [...] times daily. cholecalciferol (Vitamin D-3) 1.25 MG (61760 UT) capsule Take by mouth 1 (one) [...] Medicine) Chandana Bailey (Gastroenterology) Autumn Worley RN (Instrumentation And Controls Technician Manager) Vitor Camarillo (Cardiology) [facility] CenterGmvegm99-07-5589 NoteH&P reviewed. The patient was examined and there are no changes to the H&P.[facility] [id number] History and physical note* Julian Kruse MD - 09/09/2023 6:53 AM EDT H&P reviewed. The patient was examined and there are no changes to the H&P. Source Note - Julian Kruse MD - 08/28/2023 10:00 AM EDT Images from the original note were not included. [facility] Advanced Laparoscopic Surgery, GERD Evaluation Follow-up Visit [...] 08/22/2023 Performed by Val Chan MD at [facility] ENDOSCOPY SIGMOID COLECTOMY (HISTORICAL) 2010 [...] times daily. cholecalciferol (Vitamin D-3) 1.25 MG (79235 UT) capsule Take by mouth 1 (one) [...] Medicine) Chandana Bailey (Gastroenterology) Autumn Worley RN (Instrumentation And Controls Technician Manager) Vitor Camarillo (Cardiology) documented in this [facility]07-24-2024 NotePatient: Sheyla Ramirez Procedure Information Date/Time: 09/09/23 0700 Procedures: LAPAROSCOPIC HIATAL HERNIA REPAIR, WITH MESH, WITH POSTERIOR FUNDOPLICATION, (Abdomen) - 150 min total ESOPHAGOGASTRODUODENOSCOPY WITH BIOPSY, POSSIBLE OPEN Location: [facility] OR [facility] Operating Room Surgeons: Julian Kruse MD Relevant [...] unspecified as to partial versus complete obstruction ([facility]) No date: Other specified symptoms and signs involving the digestive system and abdomen No date: Personal history of colonic polyps Past Surgical History: Past Surgical History: No date: COLONOSCOPY Comment: 2019 No date: EGD (HISTORICAL) Comment: 201908/04/2023: EGD (HISTORICAL) 08/22/2023: FLEXIBLE SIGMOIDOSCOPY; N/A Comment: Performed by Val Chan MD at [facility] ENDOSCOPY 2011: SIGMOID COLECTOMY (HISTORICAL) [...] 155 Equipment Requests: Additional Equipment Requests Scope: [facility]07-23-2024 Hospital Discharge instructions* Discharge Instructions* Julian Kruse MD - 09/08/2023 10:47 AM EDT Images from the original note were not included. [facility] - Surgery [facility] Physicians Surgery DISCHARGE INSTRUCTIONS FOR DR. KRUSE Thank you very much for allowing me to participate in your care, it is truly a privilege. Below please see discharge orders that will help you during your recovery. Please do not hesitate to call theoffice during the day at [phone] for any questions. After hours, the same [...] most local grocery stores, pharmacies, and chain [employer]-stores. If you have any questions about your [...] beverages are permitted based on tolerance Popsicles Azeri ice Day 2 and Day 3 after your surgery advance diet to full liquid diet which includes anything on the clear liquid diet, plus: Milk, soy, rice and almond Cream of wheat, cream of rice, grits Strained creamed soups Vanilla and strawberry-flavored ice cream Sherbet Blended, custard styled or whipped yogurt Vanilla and butterscotch pudding Nutritional drinks including Ensure , Boost , Milan Instant Breakfast Mashed potatoes On Day 4 [...] Nutritional drinks including Boost , Ensure , Milan Instant Breakfast Carbonated drinks Alcohol [place] juices like orange, grapefruit, lemon and beaver Breads Pancakes, Mauritanian toast and waffles Crackers (saltine, butter, soda, shun, Goldfish and Cheese Nips ) Toasted bread Untoasted bread, bagels, Garcia and hard rolls, Indonesian muffins Crackers with nuts, seeds, fresh or [...] and ricotta cheeses Mild cheese, such as Swedish, brick, mozzarella and baby Kyrgyz Creamy peanut butter Plain custard or blended fruit yogurt Moist casseroles, such as macaroni & cheese, tuna noodle Grilled or toasted cheese sandwich Tough meats with a lot of gristle Fried, highly seasoned, smoked and fatty meat, fish or poultry, such as frankfurters, luncheon meats, sausage, johnson, spare ribs, beef brisket, sardines, anchovies, duck and goose [place] and other entrees made with pepper or [...] foods Coconut and seeds Pickles and olives [place] sauces, ketchup, barbecue sauce, horseradish, black pepper, chili powder and onion and garlicseasonings Any other strongly flavored seasoning, condiment, spice or herb not tolerated Any food not tolerated documented in this [facility]07-19-2024 History of Present illness Narrative* Autumn Worley RN - 09/04/2023 1:00 PM EDT Chart reviewed enrolled in 30-day [facility] Transition of Care Ambulatory program post-hospital discharge on 08/25/23 Dx: Abdominal pain. 2nd transitions call made introduced self and role. Patient reportsdoing fine denies any health questions or concerns reports did start her Metformin 500 mg twice a day. CM to schedule future outreach. documented in this [facility]07-12-2024 History of Present illness Narrative* Julian Kruse MD - 08/28/2023 10:00 AM EDT Images from the original note were not included. [facility] Advanced Laparoscopic Surgery, GERD Evaluation Follow-up Visit [...] 08/22/2023 Performed by Val Chan MD at [facility] ENDOSCOPY SIGMOID COLECTOMY (HISTORICAL) 2010 [...] times daily. cholecalciferol (Vitamin D-3) 1.25 MG (77094 UT) capsule Take by mouth 1 (one) [...] Medicine) Chandana Bailey (Gastroenterology) Autumn Worley RN (Instrumentation And Controls Technician Manager) Vitor Camarillo (Cardiology) documented in this [facility]07-12-2024 [facility] Advanced Laparoscopic Surgery, GERD Evaluation Follow-up [...] 08/22/2023 Performed by Val Chan MD at [facility] ENDOSCOPY SIGMOID COLECTOMY (HISTORICAL) 2010 [...] times daily. cholecalciferol (Vitamin D-3) 1.25 MG (47553 UT) capsule Take by mouth 1 (one) [...] Temp 36.4 ?C ( (more content not included)...[facility] [id number] [facility] Advanced Laparoscopic Surgery, GERD Evaluation Follow-up [...] 08/22/2023 Performed by Val Chan MD at [facility] ENDOSCOPY SIGMOID COLECTOMY (HISTORICAL) 2010 [...] times daily. cholecalciferol (Vitamin D-3) 1.25 MG (92210 UT) capsule Take by mouth 1 (one) [...] Temp 36.4 ?C ( (more content not included)...[facility]07-09-2024 Telephone encounter Note* Telephone Encounter - Niesha Garcia - 08/25/2023 11:15 AM EDT PAT canceled [facility]ag[facility]67-[facility]-7887 Miscellaneous Notes* Telephone Encounter - Niesha Garcia [...] stress test and other cardiac workup at [place], please see if you can find results in [facility]. She had an EGD with anesthesia [...] does not use MyChart documented in this [facility]07-09-2024 Telephone encounter Note* Telephone Encounter - Татьяна Muñiz PA-C - 08/25/2023 11:12 AM EDT Cardiac ECHO & stress test performed on 08/18 obtained and reviewed - normal. Cardiac clearance obtained. Spoke to patient and let her know that she does NOT need to proceed with PAT tomorrow and we will cancel that appointment. Proceed with office appointment with Dr. Ceballos on Thursday. [facility] Phone: [phone]) 286-797807-09-2024 Telephone encounter Note* Telephone Encounter - Татьяна Muñiz PA-C - 08/25/2023 11:12 AM EDT ----- Message from Julian Kruse MD sent at 08/24/2023 4:54 PM EDT ----- Sha -she was admitted this weekend, I anticipate her going home on Thursday. She states that she hada stress test and other cardiac workup at [place], please see if you can find results in [facility]. She had an EGD with anesthesia [...] we did, she does not use MyChart [facility] CenterRwklpn57-54-9575 Note* Care Coordination - Ania Box RN - 08/25/2023 11:04 AM EDT Pt did have bm. Plan for discharge to home today. She denies any needs from [facility]. [facility] CenterDxigam21-66-3800 Note* Care Coordination - Ania Box RN - 08/25/2023 11:04 AM EDT Pt did have bm. Plan for discharge to home today. She denies any needs from [facility]. [facility] CenterZcdejd98-07-0459 Miscellaneous Notes* Care Coordination - Ania Box [...] 9:15 PM 08/24/2023 Татьяна Mckay APRN - LEVEL VIAL MARKER 08/21/2023 8:35 PM Length of Stay (Days): [...] Limits Permission given to speak with patient containers sales representative/caregiver as indicated: No Confirmation of Payer with patient/family: Yes Payer Name: Medicare [place]: No Confirmation of Primary Care Physician: Confirmed [...] Living Prescription Coverage: Yes Pharmacy Used: [facility] [place] Medication Management: Independent Transportation/Shopping: Independent Transportation Mode: [...] Please call the Main Endoscopy Dept at [phone] for questions. * Op Note - Val Chan MD - 08/22/2023 7:13 AM EDT Endoscopy Center[facility] Patient Name: Sheyla Ramirez Procedure Date: 08/22/2023 7:13 AM Gender: Female Date of : 1945 Age: 77 Admit Type: Inpatient Note Status: Finalized Endoscopist: Val Chan MD, [id number] Procedure: Flexible Sigmoidoscopy Indications: LLQ abd pain, [...] immediate complications. Procedure Code(s): --- Professional --- 06860, Sigmoidoscopy, flexible; diagnostic, including collection of specimen(s) by brushing or washing, when performed (separate procedure) --- Technical --- 36405, Sigmoidoscopy, flexible; diagnostic, including collection of specimen(s) by brushing or washing, when performed (separate procedure) CPT copyright 2021 [employer]. All rights reserved. The codes documented in this report are preliminary and upon shift engineer review may be revised to meet current [...] or improved Outcome: Progressing documented in this [facility]07-09-2024 NoteDischarge Summary Sheyla Ramirez : 1945 [...] daily. Patient was also seen by Dr. Krues, she will be followed as outpatient on [...] Complexity: follow up within 7-14 calendar days (16329) [] Severe Complexity: follow up within 7 calendar days (28612) FOLLOW UP TESTING, PENDING RESULTS OR REFERRALS AT TRANSITIONAL CARE VISIT: [] Yes [] No PENDING STUDIES: DISPOSITION: Home FACILITY/HOME CARE AGENCY NAME: Follow up with [facility] [address] [facility] [address] Schedule an appointment as soon as possible for a visit in 1 week(s) Sylvester Bhakta MD [address] (more content not included)...[facility]07-09-2024 Hospital course Narrative* Chico Zaragoza MD [...] Complexity: follow up within 7-14 calendar days (70945) [] Severe Complexity: follow up within 7 calendar days (97439) FOLLOW UP TESTING, PENDING RESULTS OR REFERRALS AT TRANSITIONAL CARE VISIT: [] Yes [] No PENDING STUDIES: DISPOSITION: Home FACILITY/HOME CARE AGENCY NAME: Follow up with [facility] [address] [address] Schedule an appointment as soon as possible for a visit in 1 week(s) Sylvester Bhakta MD [address] [address] Schedule an appointment as soon as possible for a visit in 2 week(s) Julian Kruse MD [address] [place] [address] [address] [facility] [address] Schedule an appointment as soon as possible [...] Zaragoza MD 08/25/2023, 7:40 AM documented in [facility]07-09-2024 Note* Care Coordination - Chico Zaragoza MD [...] of discharge. Full discharge summary to follow [facility] CenterShtirw31-38-4235 Note* Care Coordination - Chico Zaragoza MD [...] of discharge. Full discharge summary to follow [facility] CenterSktcxb17-91-6904 Plan of care note* Care Plan - [...] and maintained or improved Outcome: Progressing [facility]07-08-2024 Telephone encounter Note* Telephone Encounter - Ana Bernal MA - 08/24/2023 11:13 AM EDT Faxed letter to dr hunt office , fax#: [phone]. [facility] CenterLwccfy78-73-6562 Miscellaneous Notes* Telephone Encounter - Ana Bernal MA - 08/24/2023 11:13 AM EDT Faxed letter to dr hunt office , fax#: [phone]. * Telephone Encounter - Juliette Vásquez MD - 08/24/2023 10:48 AM EDT Ana , can you please attach the following on [facility] letter head and fax to the following number [phone] . Thanks Dear [address] Bhakta , I am writing about mutual patient Sheyla Santo 1945 who was seen by me at [facility] when she was hospitalized for partial [...] number for yourreference. Thanks Juliette Vásquez MD [facility] Endocrinology Phone number: [phone] documented in this [facility]07-08-2024 Note* Care Coordination - Ania Box [...] Length of Stay (Days): 3 GMLOS: 2.3 [facility] CenterMkjcma38-87-9307 Note* Care Coordination - Ania Box RN [...] Length of Stay (Days): 3 GMLOS: 2.3 [facility] CenterPgtxhf15-17-6679 NoteCare Management Progress Note Pt remains on [...] Length of Stay (Days): 3 [facility] Telephone encounter Note* Telephone Encounter - Juilette Vásquez MD - 08/24/2023 10:48 AM EDT Ana , can you please attach the following on [facility] letter head and fax to the following number [phone] . Thanks Dear Dr Bhakta , I am writing about mutual patient Sheyla Santo 1945 who was seen by me at [facility] when she was hospitalized for partial [...] number for yourreference. Thanks Juliette Vásquez MD [facility] Endocrinology Phone number: [phone] [facility] CenterJiscph97-27-6974 History of Present illness Narrative* Juliette Vásquez MD - 08/24/2023 10:40 AM EDT Department of Internal Medicine Division of Endocrinology, Diabetes, & Metabolism Endocrinology Note Patient Name: Sheyla Ramirez : 1945 AGE: 77 y.o. Room[facility]: [facility] A Admission Date: 08/21/2023 Visit Date: 08/24/2023 Reason for Endocrine Consult: dm-managed on ozempic , due to have hiatal hernia surgery soon. Admitted with GI dysmotility Provider/Team Requesting Consult: surgery PCP: LENA THORNE Outpt Chemical Radiation Technician: Yes Dr Sylvester Bhakta ASSESSMENT: Type 2 diabetes with hyperglycemia without oil heaterman insulin use Concern for partial large bowel [...] friend would like to follow up with [facility] endocrine until her hernia surgery later this month. She follows with endocrine Dr Bhakta in [place] but will not be able to see her until next month and would like to have endocrine on board in [facility] in the meantime. Phone number for endocrine [...] found for: CHOLHDLRATIO No results found for: IHCI85CPJ Lab Results Component Value Date TSH 1.130 08/23/2023 Radiology reportsas per the Radiologist Radiology: POCT glucose meter Result Date: 08/22/2023 Performed by: [facility] [facility], [address] [place] [address] CLIA ID: [id number] POCT glucose meter Result Date: 08/22/2023 Performed by: [employer] [facility] [facility], [address] [place] [address] CLIA ID: [id number] US abdomen complete Result Date: 08/22/2023 [facility] 1945 [id number] Exam Date/Time: 08/22/2023 13:08 Procedure: US ABDOMEN [...] glucose meter Result Date: 08/22/2023 Performed by: [facility], [address] [place] [address] CLIA ID: [id number] POCT glucose meter Result Date: 08/22/2023 Performed by: [facility] [place] [facility], [address] [place] [address] CLIA ID: [id number] POCT glucose meter Result Date: 08/22/2023 Performed by: [facility] [place] [facility], [address] [place] [address] CLIA ID: [id number] POCT glucose meter Result Date: 08/22/2023 Performed by: [facility] [place] [facility], [address] [place] [address] CLIA ID: [id number] POCT glucose meter Result Date: 08/22/2023 Performed by: [facility] [place] [facility], [address] [place] [address] CLIA ID: [id number] POCT glucose meter Result Date: 08/21/2023 Performed by: [facility], [address] [place] [address] CLIA ID: [id number] CT abdomen pelvis w contrast Result Date: 08/21/2023 Patient Name: SHEYLA RAMIREZ : 1945 [facility]#: [id number] Exam Date/Time: 08/21/2023 16:58 Procedure: CT ABDOMEN [...] 08/22/2023 Performed by Val Chan MD at [facility] ENDOSCOPY SIGMOID COLECTOMY (HISTORICAL) 2010 [...] EDT Hospitalist Progress Note 08/24/2023 7:56 AM [phone]: Please page me for patient care issues. [phone]: Please page [facility] night Hospitalist for any [...] history of colonic polyps Adult diet Regular @AXFH6YYTHSD@ Medications: atorvastatin, 10 mg, Oral, Daily bisacodyl, [...] was made to ensureaccuracy; however, inadvertent computerized strategic communications manager errors may be present. Chico Zaragoza MD Division of Hospitalist Medicine [facility] PAGER: Epic chat * Kandy Smith MD [...] - ALS will follow - update 08/23 @0303 : patient is ok for discharge from General surgery perspective. General surgery will sign off, please do not hesitate to reach out with further questions or concerns. Discussed with Dr Kruse. WDW Dr Aixa Smith MD PGY-3, General Surgery Pager# [phone] 08/24/2023 6:56 AM Associated attestation - Julian Kruse MD - 08/24/2023 4:53 PM EDT Images from the original note were not included. [facility] - Surgery [facility] Physicians Surgery Patient Name: Sheyla Ramirez [...] EDT Hospitalist Progress Note 08/23/2023 8:09 AM [phone]: Please page me for patient care issues. [phone]: Please page [facility] night Hospitalist for any issues. Subjective: Admit Date: 08/21/2023 PCP: LENA THORNE Room#: H-5069/H-[id number] A Interval History: Patient seen and examined [...] colonic polyps Adult diet Easy to Chew @[id number]@ Medications: atorvastatin, 10 mg, Oral, Daily brimonidine, [...] was made to ensureaccuracy; however, inadvertent computerized strategic communications manager errors may be present. Chico Zaragoza MD Division of Hospitalist Medicine [facility] PAGER: [employer] chat * Lai Cee, DO - 08/23/2023 [...] Jaye Bergman MD PGY5, General Surgery Pager #[phone] ATTESTATION The patient was seen and examined. [...] EDT Hospitalist Progress Note 08/22/2023 4:45 PM [phone]: Please page me for patient care issues. [phone]: Please page [facility] night Hospitalist for any [...] of colonic polyps Adult diet Full liquid @[id number]@ Medications: lactated Ringer's, 75 mL/hr, Last Rate: [...] was made to ensureaccuracy; however, inadvertent computerized strategic communications manager errors may be present. Chico Zaragoza MD Division of Hospitalist Medicine [facility] [place] PAGER: Epic chat * Val Chan MD [...] Jaye Bergman MD PGY5, General Surgery Pager #[phone] ATTESTATION The patient was seen and examined. [...] chart review was performed. documented in this [facility]07-08-2024 NoteHospitalist Progress Note 08/24/2023 7:56 AM [phone]: Please page me for patient care issues. [phone]: Please page [facility] Hospitalist for any issues. Subjective: Admit Date: 08/21/2023 PCP: LENA THORNE Room#: H-5624/H-2798 A Interval History: Patient seen and examined [...] history of colonic polyps Adult diet Regular @WILR8SHISJN@ Medications: atorvastatin, 10 mg, Oral, Daily bisacodyl, [...] was transcribed using v (more content not included)...[facility]07-08-2024 Plan of care note* Care Plan [...] monitored and maintained or improved Outcome: Progressing [facility]Kqhxew19-89-5677 Consult note* Juliette Vásquez MD - 08/23/2023 11:17 AM EDTAssociated Order(s): IP CONSULT TO ENDOCRINOLOGY Department of Internal Medicine Division of Endocrinology, Diabetes, & Metabolism Endocrinology Note Patient Name: Sheyla Ramirez : 1945 AGE: 77 y.o. Room/Bed: [facility] Admission Date: 08/21/2023 Visit Date: 08/23/2023 Reason for Endocrine Consult: dm-managed on ozempic , due to have hiatal hernia surgery soon. Admitted with GI dysmotility Provider/Team Requesting Consult: surgery PCP: LENA [place] Chemical Radiation Technician: Yes Dr Sylvester Bhakta ASSESSMENT: Type 2 diabetes with hyperglycemia without group home insulin use Concern for partial large bowel [...] found for: CHOLHDLRATIO No results found for: [id number] No results found for: TSH, J0VAKBD, L8WTCOG, THYROIDAB Radiology reportsas per the Radiologist Radiology: POCT glucose meter Result Date: 08/22/2023 Performed by: [facility], [address] [place] [address] CLIA ID: [id number] POCT glucose meter Result Date: 08/22/2023 Performed by: [facility] [facility], [address] [place] [address] CLIA ID: [id number] US abdomen complete Result Date: 08/22/2023 Patient [...] glucose meter Result Date: 08/22/2023 Performed by: [facility], [address] [place] [address] CLIA ID: [id number] POCT glucose meter Result Date: 08/22/2023 Performed by: [facility], [address] [place] [address] CLIA ID: [id number] POCT glucose meter Result Date: 08/22/2023 Performed by: [facility], [address] [place] [address] CLIA ID: [id number] POCT glucose meter Result Date: 08/22/2023 Performed by: [facility], [address] [place] [address] CLIA ID: [id number] POCT glucose meter Result Date: 08/22/2023 Performed by: [facility], [address] [place] [address] CLIA ID: [id number] POCT glucose meter Result Date: 08/21/2023 Performed by: [facility], [address] [place] [address] CLIA ID: [id number] CT abdomen pelvis w contrast Result Date: 08/21/2023 Patient Name: SHEYLA RAMIREZ : 1945 [id number] Exam Date/Time: 08/21/2023 16:58 Procedure: CT ABDOMEN [...] 08/22/2023 Performed by Val Chan MD at [facility] ENDOSCOPY SIGMOID COLECTOMY (HISTORICAL) 2010 [...] state/prognosis on the date of this note. [facility] CenterIfgaod44-46-3173 Consult note* Juliette Vásquez MD - 08/23/2023 11:17 AM EDTAssociated Order(s): IP CONSULT TO ENDOCRINOLOGY Department of Internal Medicine Division of Endocrinology, Diabetes, & Metabolism Endocrinology Note Patient Name: Sheyla Ramirez : 1945 AGE: 77 y.o. Room[facility]Bed: [facility] A Admission Date: 08/21/2023 Visit Date: 08/23/2023 Reason for Endocrine Consult: dm-managed on ozempic , due to have hiatal hernia surgery soon. Admitted with GI dysmotility Provider/Team Requesting Consult: surgery PCP: LENA THORNE Outpt Chemical Radiation Technician: Yes Dr Sylvester Bhakta ASSESSMENT: Type 2 diabetes with hyperglycemia without oil heaterman insulin use Concern for partial large bowel [...] found for: CHOLHDLRATIO No results found for: [id number] No results found for: TSH, Q5YLCAD, K5IKRPA, THYROIDAB Radiology reportsas per the Radiologist Radiology: POCT glucose meter Result Date: 08/22/2023 Performed by: [facility], [address] [place] [address] CLIA ID: [id number] POCT glucose meter Result Date: 08/22/2023 Performed by: [facility], [address] [place] [address] CLIA ID: [id number] US abdomen complete Result Date: 08/22/2023 Patient [...] glucose meter Result Date: 08/22/2023 Performed by: [facility] [facility], [address] [place] [address] CLIA ID: [id number] POCT glucose meter Result Date: 08/22/2023 Performed by: [facility] [place] [facility], [address] [place] [address], [place] [address] CLIA ID: [id number] POCT glucose meter Result Date: 08/22/2023 Performed by: [facility] [place] [facility], [address] [place] [address], [place] [address] CLIA ID: [id number] POCT glucose meter Result Date: 08/22/2023 Performed by: [facility] [place] [facility], [address] [place] [address], [place] [address] CLIA ID: [id number] POCT glucose meter Result Date: 08/22/2023 Performed by: [facility] [place] [facility], [address] [place] [address], [facility] [address] CLIA ID: [id number] POCT glucose meter Result Date: 08/21/2023 Performed by: [facility] [place] [facility], [address] [place] [address], [facility] [address] CLIA ID: [id number] CT abdomen pelvis w contrast Result Date: [...] 08/22/2023 Performed by Val Chan MD at [facility] ENDOSCOPY SIGMOID COLECTOMY (HISTORICAL) 2010 [...] diverticulitis, (additional history below) who presents [facility] ED with a chief complaint of [...] 08/22/2023 Performed by Val Chan MD at [facility] ENDOSCOPY SIGMOID COLECTOMY (HISTORICAL) 2010 [...] Jaye Bergman MD PGY5, General Surgery Pager #[phone] STATION The patient was seen and examined. [...] Medicine) Chandana Bailey (Gastroenterology) documented in this [facility]07-07-2024 NoteHospitalist Progress Note 08/23/2023 8:09 AM [phone]: Please page me for patient care issues. [phone]: Please page [facility] Hospitalist for any issues. Subjective: Admit Date: 08/21/2023 PCP: LENA THORNE Room#: D-1203/[id number] A Interval History: Patient seen and examined [...] colonic polyps Adult diet Easy to Chew @GHVS1YCRGDI@ Medications: atorvastatin, 10 mg, Oral, Daily brimonidine, [...] using voice recognition software. (more content not included)...[facility] [id number] NoteDepartment of General Surgery Surg 4 Service [...] Jaye Bergman MD PGY5, General Surgery Pager #[phone] ATTESTATION The patient was seen and examined. I have reviewed the patients presentation, histories, imaging and serology studies. I agree with the above assessment and plan. Ab: Soft, Non-distended, non-tender Patient seen and examined this morning. Pain is well-controlled (more content not included)...[facility]07-07-2024 Plan of care note* Care Plan [...] monitored and maintained or improved Outcome: [facility] CenterPmmqpb20-21-4373 Note* Care Coordination - Lizbeth Valdez RN - 08/22/2023 5:50 PM EDT Care Managment Initial Assessment Date: 08/22/2023 Patient Name: Sheyla Ramirez : 1945 Patient Information Source of Information: Patient Cognition/Language: WFL - Within Functional Limits Permission given to speak with patient containers sales representative/caregiver as indicated: No Confirmation of [...] Living Prescription Coverage: Yes Pharmacy Used: [facility] Medication Management: Independent Transportation/Shopping: Independent Transportation Mode: [...] and agrees with plan. Lizbeth Valdez RN [facility] CenterHeyqot06-78-8402 Note* Care Coordination - Lizbeth Valdez RN - 08/22/2023 5:50 PM EDT Care Managment Initial Assessment Date: 08/22/2023 Patient Name: Sheyla Ramirez : 1945 Patient Information Source of Information: Patient Cognition/Language: WFL - Within Functional Limits Permission given to speak with patient containers sales representative/caregiver as indicated: No Confirmation of Payer with patient/family: Yes Payer Name: Medicare [place]: No Confirmation of Primary Care Physician: Confirmed [...] Living Prescription Coverage: Yes Pharmacy Used: [facility] Medication Management: Independent Transportation/Shopping: Independent Transportation Mode: [...] and agrees with plan. Lizbeth Valdez RN [facility] CenterEjoqyf35-44-7087 NoteHospitalist Progress Note 08/22/2023 4:45 PM [phone]: Please page me for patient care issues. [phone]: Please page [facility] night Hospitalist for any issues. Subjective: Admit [...] of colonic polyps Adult diet Full liquid @[id number]@ Medications: lactated Ringer's, 75 mL/hr, Last Rate: [...] # Method of m (more content not included)...[facility]07-06-2024 Hospital Discharge instructions* Discharge Instr - Activity* Chico Zaragoza MD - 08/22/2023 3:18 PM EDT As tolerated * Discharge Instr - Diet* Chico Zaragoza MD - 08/22/2023 3:18 PM EDT ADA 1800 diet documented in this [facility]07-06-2024 Plan of care note* Care Plan [...] monitored and maintained or improved Outcome: [facility] CenterJrcixf71-01-2588 NoteDepartment of General Surgery Surg 4 Service [...] Jaye Bergman MD PGY5, General Surgery Pager #[phone] ATTESTATION The patient was seen and examined. I have reviewed the patients presentation, histories, imaging and serology studies. I agree with the above assessment and plan. Please refer to consult note (more content not included)...[facility]07-06-2024 Note* Perioperative Nursing Note - Garima Powell RN - 08/22/2023 8:35 AM EDT POST ENDOSCOPY PROCEDURE TRANSFER REPORT Physician: Rocio Procedure completed: Flexible sigmoidoscopy Specimens obtained: none Medications administered: propofol 130mg Findings: see MD note Complications: none Report called to H5 RN Please call the Main Endoscopy Dept at [phone] for questions. [facility] CenterDbbbod94-25-5883 Note* Perioperative Nursing Note - Garima Powell RN - 08/22/2023 8:35 AM EDT POST ENDOSCOPY PROCEDURE TRANSFER REPORT Physician: Rocio Procedure completed: Flexible sigmoidoscopy Specimens obtained: none Medications administered: propofol 130mg Findings: see MD note Complications: none Report called to H5 RN Please call the Main Endoscopy Dept at [phone] for questions. [facility] CenterHseexg49-61-2210 NotePOST ENDOSCOPY PROCEDURE TRANSFER REPORT Physician: Rocio Procedure completed: Flexible sigmoidoscopy Specimens obtained: none Medications administered: propofol 130mg Findings: see MD note Complications: none Report called to H5 RN Please call the Main Endoscopy Dept at [phone] for questions.[facility]07-06-2024 NotePatient: Sheyla Ramirez Procedure Summary Date: 08/22/23 Room / Location: [facility] 8 / [facility] Gastroenterology Anesthesia Start: 815 Anesthesia [...] discharged once all PACU criteria has been met.[facility]07-06-2024 NotePatient: Sheyla Ramierz Procedure Summary Date: 08/22/23 Room / Location: [...] Allowed opportunity for questions and acknowledgement of understanding.[facility]07-06-2024 NotePatient: Sheyla Volmellissa Procedure Information Date/Time: [...] any previous visit. Equipment Requests: Additional [facility] Note* Op Note - Val Chan MD - 08/22/2023 7:13 AM EDT [facility] Patient Name: Sheyla Ramirez Procedure Date: 08/22/2023 7:13 AM Gender: Female Date of : 1945 Age: 77 Admit Type: Inpatient Note Status: Finalized Endoscopist: Val Chan MD, [id number] Procedure: Flexible Sigmoidoscopy Indications: LLQ abd pain, [...] immediate complications. Procedure Code(s): --- Professional --- 78093, Sigmoidoscopy, flexible; diagnostic, including collection of specimen(s) by brushing or washing, when performed (separate procedure) --- Technical --- 43124, Sigmoidoscopy, flexible; diagnostic, including collection of specimen(s) by brushing or washing, when performed (separate procedure) CPT copyright 2021 [employer]. All rights reserved. The codes documented in this report are preliminary and upon shift engineer review may be revised to meet current compliance requirements. Attending Participation: I personally performed the entire procedure. Val Chan MD 08/22/2023 8:33:22 AM This report has been signed electronically. Number of Addenda: 0 Note Initiated On: 08/22/2023 7:13 AM [facility] [id number] Note* Op Note - Val Chan MD - 08/22/2023 7:13 AM EDT [facility] Patient Name: Sheyla Ramirez Procedure Date: 08/22/2023 7:13 AM Gender: Female Date of : 1945 Age: 77 Admit Type: Inpatient Note Status: Finalized Endoscopist: Val Chan MD, [id number] Procedure: Flexible Sigmoidoscopy Indications: LLQ abd pain, [...] immediate complications. Procedure Code(s): --- Professional --- 60475, Sigmoidoscopy, flexible; diagnostic, including collection of specimen(s) by brushing or washing, when performed (separate procedure) --- Technical --- 01408, Sigmoidoscopy, flexible; diagnostic, including collection of specimen(s) by brushing or washing, when performed (separate procedure) CPT copyright 2021 [employer]. All rights reserved. The codes documented in this report are preliminary and upon shift engineer review may be revised to meet current compliance requirements. Attending Participation: I personally performed the entire procedure. Val Chan MD 08/22/2023 8:33:22 AM This report has been signed electronically. Number of Addenda: 0 Note Initiated On: 08/22/2023 7:13 AM [facility]07-06-2024 [facility] Patient Name: Sheyla Ramirez Procedure Date: 08/22/2023 7:13 AM Gender: Female Date of : 1945 Age: 77 Admit Type: Inpatient Note Status: Finalized Endoscopist: Val Chan MD, [id number] Procedure: Flexible Sigmoidoscopy Indications: LLQ abd pain, [...] immediate complications. Procedure Code(s): --- Professional --- 77797, Sigmoidoscopy, flexible; diagnostic, including collection of specimen(s) by brushing or washing, when performed (separate procedure) --- Technical --- 56641, Sigmoidoscopy, flexible; diagnostic, including collection of specimen(s) by brushing or washing, when performed (separate procedure) CPT copyright 2021 [employer]. All rights reserved. The codes documented in this report are preliminary and upon shift engineer review may be revised to meet current compliance requirements. Attending Participation: I personally performed the entire procedure. Val Chan MD 08/22/2023 8:33:22 AM This report has been signed electronically. Number of Addenda: 0 Note Initiated On: 08/22/2023 7:13 [facility] [id number] Plan of care note* Care Plan - [...] monitored and maintained or improved Outcome: [facility] CenterDqvcih94-48-9647 History and physical note* Arsalan Swenson MD [...] no m/r/g Abdomen: soft, diffuse tenderness, BS+ GRADUATING MACHINE OPERATOR: AAOx3, no focal deficit DATA: CBC: Recent [...] - DO NOT do CPR, intubation] [_] [DNR-ASSEMBLY HAND - Comfort care only] [_] DNR form [...] Arsalan Swenson MD Division of Hospitalist Medicine [facility] [employer] Phone: 1(724) 510-618807-05-2024 NoteAttending History and Physical Admit Date: 08/21/2023 [...] 23.49 kg/m? BMI Classific (more content not included)...[facility]07-05-2024 History and physical note* Arsalan Swenson [...] no m/r/g Abdomen: soft, diffuse tenderness, BS+ GRADUATING MACHINE OPERATOR: AAOx3, no focal deficit DATA: CBC: Recent [...] - DO NOT do CPR, intubation] [_] [DNR-ASSEMBLY HAND - Comfort care only] [_] DNR form [...] Arsalan Swenson MD Division of Hospitalist Medicine [facility] documented in this [facility]07-05-2024 Consult note* Lai Cee DO - [...] diverticulitis, (additional history below) who presents to [facility] ED with a chief complaint of [...] 08/22/2023 Performed by Val Chan MD at [facility] ENDOSCOPY SIGMOID COLECTOMY (HISTORICAL) 2010 [...] Jaye Bergman MD PGY5, General Surgery Pager #[phone] STATION The patient was seen and examined. [...] PCP - (Internal Medicine) Chandana Bailey (Gastroenterology) [facility] CenterXxlwsn03-57-9291 Emergency department Note* Jayjay Fortune MD - 08/21/2023 11:53 AM EDT Emergency Department Encounter [facility] EMERGENCY DEPT Patient: Sheyla Ramirez [...] 08/21/2023 11:53 AM EDT Emergency Department Encounter [facility] Emergency Department Patient: Sheyla Ramirez : 1945 Date of Evaluation: 08/21/2023 ED GALINDO Provider: Таьтяна Price PA-C EDcare was supervised by Dr. [...] 08/22/2023 Performed by Val Chan MD at [facility] ENDOSCOPY SIGMOID COLECTOMY (HISTORICAL) 2010 [...] Abnormal Glucose 64 (*) Narrative: Performed by: [facility], [address] [place] [address] CLIA ID: [id number] POCT GLUCOSE METER UNSOLICITED RESULTS - Abnormal Glucose 157 (*) Narrative: Performed by: [facility], [address] [place] [address] CLIA ID: [id number] HEPATIC FUNCTION PANEL - Normal BILIRUBIN, TOTAL [...] - Normal Glucose 72 Narrative: Performed by: [employer] [facility], [address] [place] [address] CLIA ID: [id number] POCT GLUCOSE METER UNSOLICITED RESULTS - Normal Glucose 91 Narrative: Performed by: [employer] [facility], [address] [place] [address] CLIA ID: [id number] BASIC METABOLIC PANEL WITH MG REFLEX Narrative: The following orders were created for panel order Basic Metabolic Panel w/ Mg Reflex. Procedure Abnormality Status --------- ------ Basic metabolic panel[[id number]] Abnormal Final result Please view results for [...] Department Physician in the absence of a banking consultant. Please see Epiphany for interpretation of EKG. [...] signed out to my colleague Татьяна Mckay 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, please see her note for patient's final [...] 11:53 AM EDT Emergency Department Encounter Location: [facility] EMERGENCY DEPT Patient: Sheyla Ramirez [...] 30 mL (30 mL Oral Given 08/21/23 8554) ondansetron (Zofran) injection 4 mg (4 mg IntraVENous Given 08/21/23 5344) iopamidol (Isovue-370) 76 % injection 75 mL (75 mL IntraVENous Given 08/21/23 3013) Final Impression 1. Generalized abdominal pain 2. Nausea and vomiting, unspecified vomiting type DISPOSITION Admit 08/21/2023 08:35:24 PM (Please note that portions of this note may have been completed with a voice recognition program. Efforts were made to edit the dictations but occasionally words are mis-transcribed.) SANTI Hope CNP [employer] SANTI Condon CNP 08/21/232036 documented in this [facility]07-05-2024 Physician Emergency department Note* Jayjay Fortune MD - 08/21/2023 11:53 AM EDT Emergency Department Encounter [facility] EMERGENCY DEPT Patient: Sheyla Ramirez [...] dictating provider for clarification) Jayjay Fortune MD [employer] [facility] Jayjay Fortune MD 08/21/23 3658 [facility] CenterTibexa13-26-2071 Physician Emergency department Note* Татьяна Price PA-C - 08/21/2023 11:53 AM EDT Emergency Department Encounter [facility] Emergency Department Patient: Sheyla Ramirez [...] 08/22/2023 Performed by Val Chan MD at [facility] ENDOSCOPY SIGMOID COLECTOMY (HISTORICAL) 2010 [...] Abnormal Glucose 64 (*) Narrative: Performed by: [facility], [address] [place] [address] CLIA ID: [id number] POCT GLUCOSE METER UNSOLICITED RESULTS - Abnormal Glucose 157 (*) Narrative: Performed by: [facility], [address] [place] [address] CLIA ID: [id number] HEPATIC FUNCTION PANEL - Normal BILIRUBIN, TOTAL [...] - Normal Glucose 72 Narrative: Performed by: [facility] [employer] [facility], [address] [place] [address] CLIA ID: [id number] POCT GLUCOSE METER UNSOLICITED RESULTS - Normal Glucose 91 Narrative: Performed by: [employer] [facility], [address] [place] [address] CLIA ID: [id number] BASIC METABOLIC PANEL WITH MG REFLEX Narrative: The following orders were created for panel order Basic Metabolic Panel w/ Mg Reflex. Procedure Abnormality Status --------- ------ Basic metabolic panel[[id number]] Abnormal Final result Please view results for [...] Department Physician in the absence of a banking consultant. Please see Epiphany for interpretation of EKG. [...] signed out to my colleague Татьяна Mckay 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, please see her note for patient's final [...] Medication List Татьяна Price PA-C [facility] [employer] Татьяна Price PA-C 08/22/2314 [employer] Phone: 1(551) 484-396107-05-2024 Physician Emergency department Note* SANTI Condon CNP - 08/21/2023 11:53 AM EDT Emergency Department Encounter Location: [facility] EMERGENCY DEPT Patient: Sheyla Ramirez [...] 30 mL (30 mL Oral Given 08/21/23 2384) ondansetron (Zofran) injection 4 mg (4 mg IntraVENous Given 08/21/23 6204) iopamidol (Isovue-370) 76 % injection 75 mL [...] [employer] SANTI Condon CNP 08/21/232036 [facility] CenterEljfsc42-31-0464 Emergency department Note* Kandy Perea RN - [...] all belongings. Kandy Perea RN 08/20/23 1300 [facility] CenterOsdraz35-55-4969 NoteDischarge teaching completed. Pt verbalizes understanding of medications, times to return to the ED, and follow up care discussed. Pt is stable and ambulatory upon discharge. Pt is a/o x 3; breathing is even and unlabored on room air. No distress noted. Pt leaves ED with all belongings. Kandy Perea RN 08/20/[address] [place], [place] 7305007-04-2024 Emergency department Note* Kandy Perea RN - [...] Culture. Procedure Abnormality Status --------- ------ Complete Urinalysis[[id number]] Abnormal Final result Please view results for [...] continued abdominal exam, further evaluation in the [facility], or to go home. Patient like [...] PM PATIENT REFERRED TO: Julian Kruse MD [address] [place] [address] Call Call your surgeon in 2 days [...] by mouth daily for 3 days., Starting Urzsula 08/20/2023, Until 08/23/2023, Normal !! - Potential [...] 08/20/2023 6:20 AM EDT Emergency Department Encounter [facility] EMERGENCY DEPT Patient: Sheyla Ramirez [...] for clarification.) Don Bell MD [facility] Dno Bell MD 08/20/23 0924 documented in this [facility]07-04-2024 Hospital Discharge instructions* Discharge Instructions* Hoa [...] prescribed and follow-upas recommended. documented in this [facility]07-04-2024 Emergency department Note* Kimberley Carson RN [...] within reach. Kimberley Carson RN 08/20/23 0652 [facility] CenterHvkkjd24-27-6593 Physician Emergency department Note* Hoa Calhoun PA-C [...] Culture. Procedure Abnormality Status --------- ------ Complete Urinalysis[[id number]] Abnormal Final result Please view results for [...] continued abdominal exam, further evaluation in the [facility], or to go home. Patient like [...] PM PATIENT REFERRED TO: Julian Kruse MD [address] [place] [address] [address] [phone] Call Call your surgeon in 2 days [...] Medicine Provider Hoa Calhoun PA-C 08/20/23 1437 [facility] CenterAxaqrl47-88-5273 Physician Emergency department Note* Don Bell MD - 08/20/2023 6:20 AM EDT Emergency Department Encounter [facility] EMERGENCY DEPT Patient: Sheyla Ramirez [...] for clarification.) Don Bell MD [facility] Don Bell MD 08/20/23923 [facility] [employer] Phone: [phone]) 191-8891371725-45-2975 Note* Addendum Note - SANTI Terrazas CRNA - 08/04/2023 1:04 PM EDT Addendum created 08/04/23 130 by SANTI Terrazas CRNA Attestation recorded in Intraprocedure, Intraprocedure Attestations filed [facility] CenterXdrktw01-13-4328 NoteAddendum created 08/04/23 130 by SANTI Terrazas CRNA Attestation recorded in Intraprocedure, Intraprocedure Attestations [facility]06-18-2024 Miscellaneous Notes* Addendum Note - SANTI Terrazas CRNA - 08/04/2023 1:04 PM EDT Addendum created 08/04/23 130 by SANTI Terrazas CRNA Attestation recorded in Intraprocedure, Intraprocedure Attestations filed * Anesthesia Discharge Note - SANTI Terrazas CRNA - 08/04/2023 11:03 AM EDT Patient: Sheyla Ramirez Procedure Summary Date: 08/04/23 Room / Location: [facility] SEC 4 / [facility] [...] criteria has been met. documented in this [facility]06-18-2024 Procedure anesthesia Narrative* Procedure Summary Procedure [...] Amaya Ernst RN documented in this encounter [facility] CenterQlnsdr71-26-7201 Anesthesiology Postoperative evaluation and management note* Anesthesia Postprocedure Evaluation - SANTI Terrazas CRNA - 08/04/2023 11:04 AM EDT Patient: Sheyla Ramirez Procedure Summary Date: 08/04/23 Room / Location: [address] ENDO [facility] 4 / [facility] Gastroenterology Anesthesia Start: 1039 Anesthesia Stop: 1048 [...] opportunity for questions and acknowledgement of understanding. [employer] Phone: 1(168) 845-251106-18-2024 NotePatient: Sheyla Ramirez Procedure Summary Date: 08/04/23 Room / Location: [address] ENDO SEC 4 / [facility] Gastroenterology [...] Allowed opportunity for questions and acknowledgement of understanding.[facility]06-18-2024 Surgical operation note* Anesthesia Postprocedure Evaluation - Lashanda Ruelas APRN - LABEL STAMPER - 08/04/2023 11:04 AM EDT Patient: Sheyla Ramirez Procedure Summary Date: 08/04/23 Room / Location: [facility] SEC 4 / ARCH [...] WITH BIOPSY (Esophagus) - 30 mins Location: [facility] END[facility] SEC 4 / [facility] [...] or any previous visit. documented in this [facility]06-18-2024 Note* Anesthesia Discharge Note - SANTI Terrazas CRNA - 08/04/2023 11:03 AM EDT Patient: Sheyla Ramirez Procedure Summary Date: 08/04/23 Room / Location: [facility] END[facility] SEC 4 / AR[facility] [...] once all PACU criteria has been met. [facility] CenterDwwlfi19-68-1907 NotePatient: Sheyla Ramirez Procedure Summary Date: 08/04/23 Room / Location: [facility] ENDO SEC 4 / ARCH [...] discharged once all PACU criteria has been met.[facility] [id number] Hospital Discharge instructions* Discharge Instructions* Amaya Ernst [...] mild sore throat. You may use an umnf-tle-okpxoje chloraseptic spray, gargle with warm salt water, [...] TO NEAREST EMERGENCY DEPARTMENT documented in this [facility]06-18-2024 Anesthesiology Preoperative evaluation and management note* Anesthesia Preprocedure Evaluation - SANTI Terrazas CRNA - 08/04/2023 10:36 AM EDT Patient: Sheyla Ramirez Procedure Information Date/Time: 08/04/23 1100 Procedure: ESOPHAGOGASTRODUODENOSCOPY WITH BIOPSY (Esophagus) - 30 mins Location: [address] ENDO [facility] 4 / [facility] Gastroenterology Providers: Julian Kruse MD Relevant Problems [...] for this or any previous visit. [facility]06-18-2024 NotePatient: Sheyla Ramirez Procedure Information Date/Time: 08/04/23 1100 Procedure: ESOPHAGOGASTRODUODENOSCOPY WITH BIOPSY (Esophagus) - 30 mins Location: [facility] END[facility] SEC 4 / AR[facility] [...] results found for this or any previous visit.[facility] 08-04-2023 Note* Op Note - Julian Kruse MD - 08/04/2023 10:32 AM EDT [facility] Patient Name: Sheyla Ramirez Procedure Date: 08/04/2023 10:32 AM Gender: Female Date of : 1945 Age: 77 Admit Type: Outpatient Note Status: Finalized Endoscopist: Julian Kruse MD, [id number] Procedure: Upper GI endoscopy Indications: Gastro-esophageal reflux [...] immediate complications. Procedure Code(s): --- Professional --- 99359, Esophagogastroduodenoscopy, flexible, transoral; with biopsy, single or multiple --- Technical --- 40804, Esophagogastroduodenoscopy, flexible, transoral; with biopsy, single or multiple Diagnosis Code(s): --- Professional --- K29.70, Gastritis, unspecified, without bleeding K44.9, Diaphragmatic hernia without obstruction or gangrene K21.00, Gastro-esophageal reflux disease with esophagitis, without bleeding --- Technical --- K29.70, Gastritis, unspecified, without bleeding K44.9, Diaphragmatic hernia without obstruction or gangrene K21.00, Gastro-esophageal reflux disease with esophagitis, without bleeding CPT copyright 2021 [employer]. All rights reserved. The codes documented in this report are preliminary and upon shift engineer review may be revised to meet current compliance requirements. Attending Participation: I personally performed the entire procedure. Julian Kruse MD 08/04/2023 10:53:03 AM This report has been signed electronically. Number of Addenda: 0 Note Initiated On: 08/04/2023 10:32 AM [facility] CenterKoutbk38-44-4737 Note* Op Note - Julian Kruse MD - 08/04/2023 10:32 AM EDT [facility] Patient Name: Sheyla Ramirez Procedure Date: 08/04/2023 10:32 AM Gender: Female Date of : 1945 Age: 77 Admit Type: Outpatient Note Status: Finalized Endoscopist: Julian Kruse MD, [id number] Procedure: Upper GI endoscopy Indications: Gastro-esophageal reflux [...] immediate complications. Procedure Code(s): --- Professional --- 31926, Esophagogastroduodenoscopy, flexible, transoral; with biopsy, single or multiple --- Technical --- 66595, Esophagogastroduodenoscopy, flexible, transoral; with biopsy, single or multiple Diagnosis Code(s): --- Professional --- K29.70, Gastritis, unspecified, without bleeding K44.9, Diaphragmatic hernia without obstruction or gangrene K21.00, Gastro-esophageal reflux disease with esophagitis, without bleeding --- Technical --- K29.70, Gastritis, unspecified, without bleeding K44.9, Diaphragmatic hernia without obstruction or gangrene K21.00, Gastro-esophageal reflux disease with esophagitis, without bleeding CPT copyright 202 [employer]. All rights reserved. The codes documented in this report are preliminary and upon shift engineer review may be revised to meet current compliance requirements. Attending Participation: I personally performed the entire procedure. Julian Kruse MD 08/04/2023 10:53:03 AM This report has been signed electronically. Number of Addenda: 0 Note Initiated On: 08/04/2023 10:32 AM [id number] Patient Name: Sheyla Ramirez Procedure Date: 08/04/2023 10:32 AM Gender: Female Date of : 1945 Age: 77 Admit Type: Outpatient Note Status: Finalized Endoscopist: Julian Kruse MD, [id number] Procedure: Upper GI endoscopy Indications: Gastro-esophageal reflux [...] immediate complications. Procedure Code(s): --- Professional --- 77825, Esophagogastroduodenoscopy, flexible, transoral; with biopsy, single or multiple --- Technical --- 20104, Esophagogastroduodenoscopy, flexible, transoral; with biopsy, single or multiple Diagnosis Code(s): --- Professional --- K29.70, Gastritis, unspecified, without bleeding K44.9, Diaphragmatic hernia without obstruction or gangrene K21.00, Gastro-esophageal reflux disease with esophagitis, without bleeding --- Technical --- K29.70, Gastritis, unspecified, without bleeding K44.9, Diaphragmatic hernia without obstruction or gangrene K21.00, Gastro-esophageal reflux disease with esophagitis, without bleeding CPT copyright 2021 [employer]. All rights reserved. The codes documented in this report are preliminary and upon shift engineer review may be revised to meet current compliance requirements. Attending Participation: I personally performed the entire procedure. Julian Kruse MD 08/04/2023 10:53:03 AM This report has been signed electronically. Number of Addenda: 0 Note Initiated On: 08/04/2023 10:32 [facility]06-18-2024 Miscellaneous Notes* Op Note - Julian Kruse MD - 08/04/2023 10:32 AM EDT [facility] Patient Name: Sheyla Ramirez Procedure Date: 08/04/2023 10:32 AM Gender: Female Date of : 1945 Age: 77 Admit Type: Outpatient Note Status: Finalized Endoscopist: Julian Kruse MD, [id number] Procedure: Upper GI endoscopy Indications: Gastro-esophageal reflux [...] immediate complications. Procedure Code(s): --- Professional --- 12076, Esophagogastroduodenoscopy, flexible, transoral; with biopsy, single or multiple --- Technical --- 29373, Esophagogastroduodenoscopy, flexible, transoral; with biopsy, single or multiple Diagnosis Code(s): --- Professional --- K29.70, Gastritis, unspecified, without bleeding K44.9, Diaphragmatic hernia without obstruction or gangrene K21.00, Gastro-esophageal reflux disease with esophagitis, without bleeding --- Technical --- K29.70, Gastritis, unspecified, without bleeding K44.9, Diaphragmatic hernia without obstruction or gangrene K21.00, Gastro-esophageal reflux disease with esophagitis, without bleeding CPT copyright 2021 [employer]. All rights reserved. The codes documented in this report are preliminary and upon shift engineer review may be revised to meet current compliance requirements. Attending Participation: I personally performed the entire procedure. Julian Kruse MD 08/04/2023 10:53:03 AM This report has been signed electronically. Number of Addenda: 0 Note Initiated On: 08/04/2023 10:32 AM documented in this [facility]06-17-2024 History and physical note* Julian Kruse MD - 08/03/2023 6:23 PM EDT Images from the original note were not included. [facility] Medical [facility] - Surgery [facility] Physicians Surgery PATIENT NAME: Sheyla Ramirez [...] and willingness to proceed with plan. T [id number] [facility] - Surgery [facility] Physicians Surgery PATIENT NAME: Sheyla Ramirez [...] understanding and willingness to proceed with plan. [facility] [id number] History and physical note* Julian Kruse MD - 08/03/2023 6:23 PM EDT Images from the original note were not included. [facility] - Surgery [facility] Physicians Surgery PATIENT NAME: Sheyla Ramirez [...] to proceed with plan. documented in this encounterSMarietta Memorial [id number] Telephone encounter Note* Telephone Encounter - Niesha Garcia - 07/08/2023 4:02 PM EDT Spoke with pt today about new surgery date of 09/08 @ 7:00. She verbalized understanding and also stated she has an appt w/ her banking consultant on 08/27. (Cardiac clearance still pending til then) [facility] [id number] Miscellaneous Notes* Telephone Encounter - Niesha Garcia - 07/08/2023 4:02 PM EDT Spoke with pt today about new surgery date of 09/08 @ 7:00. She verbalized understanding and also stated she has an appt w/ her banking consultant on 08/27. (Cardiac clearance still pending til [...] ride. Please call patient documented in this [facility]05-16-2024 Telephone encounter Note* Telephone Encounter - Niesha Garcia - 07/02/2023 2:28 PM EDT I faxed the cardiac clearance request today. I will keep it in a folder here of pending requests. Ican update the Cced message and route off once received. Unless there is a different protocol for keeping track [facility] [id number] Miscellaneous Notes* Telephone Encounter - Niesha Garcia [...] ride. Please call patient documented in this encounterSMarietta Memorial [id number] Telephone encounter Note* Telephone Encounter - Whitney Ball PA-C - 07/02/2023 2:08 PM EDT Please make sure to get cardiac clearance prior to surgery [facility] [employer] Phone: [phone] Telephone encounter Note* Telephone Encounter - Niesha Garcia - 07/01/2023 9:03 AM EDT Called pt and LVM explaining we already chose an EGD appt, August 03, arrival time of 10:00. Pleaselet pt know that if she calls back. [facility] [id number] Telephone encounter Note* Telephone Encounter - Ceasar Powell MA - 06/29/2023 2:42 PM EDT Patient LVM that she would like to schedule EGD she found a ride. Please call patient [facility] [id number] History of Present illness Narrative* Julian Kruse MD - 06/26/2023 11:15 AM EDT Images from the original note were not included. [facility] - Surgery [facility] Physicians Surgery Patient Name: Sheyla Ramirez [...] will need medical risk stratification from her banking consultant. We will proceed with surgical intervention. I [...] protocol Clearance: PAT, cardiology (she has a banking consultant) Preop SQ Heparin: 5000 units subcu heparin [...] surgical scheduling and cardiac clearance from her banking consultant. I personally performed the evaluation and management [...] Medicine) Chandana Bailey (Gastroenterology) documented in this [facility]05-10-2024 History of Present illness Narrative* Julian Kruse MD - 06/26/2023 11:15 AM EDT Images from the original note were not included. [facility] - Surgery [facility] Physicians Surgery Patient Name: Sheyla Ramirez [...] however did not seek further workup during [facility]. She is present with a friend today, [...] will need medical risk stratification from her banking consultant. We will proceed with surgical intervention. I [...] protocol Clearance: PAT, cardiology (she has a banking consultant) Preop SQ Heparin: 5000 units subcu heparin [...] surgical scheduling and cardiac clearance from her banking consultant. I personally performed the evaluation and management [...] and EGD. Mailed paperwork documented in this [facility]05-10-2024 History of Present illness Narrative* Julian Kruse MD - 06/26/2023 11:15 AM EDT Images from the original note were not included. [facility] - Surgery [facility] Physicians Surgery Patient Name: Sheyla Ramirez [...] will need medical risk stratification from her banking consultant. We will proceed with surgical intervention. I [...] protocol Clearance: PAT, cardiology (she has a banking consultant) Preop SQ Heparin: 5000 units subcu heparin [...] surgical scheduling and cardiac clearance from her banking consultant. I personally performed the evaluation and management [...] post-ops made, and cardiac clearance faxed to banking consultant documented in this [facility]05-10-20[facility] History of Present illness Narrative* Julian Kruse MD - 06/26/2023 11:15 AM EDT Images from the original note were not included. [facility] - Surgery [facility] Physicians Surgery Patient Name: Sheyla Ramirez [...] will need medical risk stratification from her banking consultant. We will proceed with surgical intervention. I [...] protocol Clearance: PAT, cardiology (she has a banking consultant) Preop SQ Heparin: 5000 units subcu heparin [...] surgical scheduling and cardiac clearance from her banking consultant. I personally performed the evaluation and management [...] post-ops made, and cardiac clearance faxed to banking consultant * Niesha Garcia - 06/26/2023 11:15 AM [...] stated she has an appt w/ her banking consultant on 08/27. (Cardiac clearance still pending til ) documented in this [facility]05-10-20[facility] History of Present illness Narrative* Julian Kruse MD - 06/26/2023 11:15 AM EDT Images from the original note were not included. [facility] - Surgery [facility] Physicians Surgery Patient Name: Sheyla Ramirez [...] will need medical risk stratification from her banking consultant. We will proceed with surgical intervention. I [...] protocol Clearance: PAT, cardiology (she has a banking consultant) Preop SQ Heparin: 5000 units subcu heparin [...] surgical scheduling and cardiac clearance from her banking consultant. I personally performed the evaluation and management of Sheyla Ramriez in the development of a treatment plan [...] post-ops made, and cardiac clearance faxed to banking consultant * Niesha Garcia - 06/26/2023 11:15 AM [...] stated she has an appt w/ her banking consultant on 08/27. (Cardiac clearance still pending til then) * Niesha Garcia - 06/26/2023 11:15 AM EDT Received cardiac clearance approval. -pre-op appt this Thursday documented in this [facility]05-10-20[facility] History of Present illness Narrative* Julian Kruse MD - 06/26/2023 11:15 AM EDT Images from the original note were not included. [facility] - Surgery [facility] Physicians Surgery Patient Name: Sheyla Ramirez [...] will need medical risk stratification from her banking consultant. We will proceed with surgical intervention. I [...] protocol Clearance: PAT, cardiology (she has a banking consultant) Preop SQ Heparin: 5000 units subcu heparin [...] surgical scheduling and cardiac clearance from her banking consultant. I personally performed the evaluation and management [...] post-ops made, and cardiac clearance faxed to banking consultant * Niesha Garcia - 06/26/2023 11:15 AM [...] stated she has an appt w/ her banking consultant on 08/27. (Cardiac clearance still pending til then) * Niesha Garcia - 06/26/2023 11:15 AM EDT Received cardiac clearance approval. -pre-op appt this Thursday * Niesha Garcia - 06/26/2023 11:15 AM EDT Cardiac stress test and ECHO results received from [facility]. Placed in review folder * Niesha Garcia - 06/26/2023 11:15 AM EDT Cardiac paperwork received and signed off on. PAT canceled per Sha (pt aware) documented in this [facility]04-17-2024 Telephone encounter Note* Telephone Encounter - Low Boykin - 06/03/2023 9:03 AM EDT [employer] appt scheduled for 06/25, pt informed via phone/mail. [place] to get UGI images. [facility] [id number] Miscellaneous Notes* Telephone Encounter - Low Boykin - 06/03/2023 9:03 AM EDT [employer] appt scheduled for 06/25, pt informed via phone/mail. Sent GABRIELLA to [place] to get UGI images. * Telephone Encounter - Low Boykin - 06/02/2023 10:15 AM EDT Referral received and given to Dr. Ceballos for review. Lvm asking pt where she got her UGI done so I can get images for Dr. Ceballos to review. documented in this [facility]04-16-2024 NoteReferral received and given to Dr. Ceballos for review. Lvm asking pt where she got her UGI done so I can get images for Dr. Ceballos to review.[facility] 06-02-2023 Telephone encounter Note* Telephone Encounter - Low Boykin - 06/02/2023 10:15 AM EDT Referral received and given to Dr. Ceballos for review. Lvm asking pt where she got her UGI done so I can get images for Dr. Ceballos to review. [facility]* Diagnosis Onset Date Resolution Status Bilateral impacted cerumen a cute Essential (primary) hypertension chronic Type 2 diabetes mellitus chr onic Abdominal pain chronic Essential (primary) hypertension chronic Type 2 diabetes mellitus [facility] Work Phone: Evaluation note* Diagnosis Onset Date Resolution Status Bilateral impacted cerumen a cute Essential (primary) hypertension chronic Type 2 diabetes mellitus chr onic Abdominal pain chronic Essential (primary) hypertension chronic Type 2 diabetes mellitus chr onic Carotid artery disease chron ic Diabetes mellitus type 2, co ntrolled, without complications chronic Essential (primary) hypertension [facility] Work Phone: Evaluation note* Diagnosis [...] mellitus chr onic Type 2 diabetes mellitus [facility] Work Phone: Evaluation note* Diagnosis Onset Date Resolution Status Health care maintenance acut e Essential (primary) hypertension chronic Hyperlipidemia chronic Type 2 diabetes mellitus chr onic Essential (primary) hypertension chronic Hyperlipidemia chronic Type 2 diabetes mellitus [facility] Work Phone: Evaluation note* Diagnosis Onset Date Resolution Status Flu vaccine need acute [facility] Work Phone: Evaluation note* Diagnosis Onset Date Resolution Status Flu vaccine need acute Essential (primary) hypertension chronic GERD (gastroesophageal reflux disease) chronic Hyperlipidemia chronic Osteopenia chronic Type 2 diabetes mellitus [facility] Diabetes mellitus type 2, co ntrolled, without complications chronic Essential (primary) hypertension chronic Hyperlipidemia chronic [facility] Work Phone: Evaluation note* Diagnosis Onset Date Resolution Status Left hip pain acute Low back pain acute Pain in left araya acute Essential (primary) hypertension chronic GERD (gastroesophageal reflux disease) chronic Type 2 diabetes mellitus [facility] Work Phone: Evaluation note* Diagnosis Hiatal hernia- Primary Diaphragmatic hernia without mention of obstruction or gangrene GERD without esophagitis Esophageal reflux documented in this encounter [facility]* Diagnosis Hiatal hernia- Primary Diaphragmatic hernia without mention of obstruction or gangrene GERD without esophagitis Esophageal reflux Diaphragmatic hernia without obstruction or gangrene Diaphragmatic hernia without mention of obstruction or gangrene Gastro-esophageal reflux disease without esophagitis documented in this encounter [facility]* Diagnosis Hiatal hernia- Primary Diaphragmatic hernia without mention of obstruction or gangrene GERD without esophagitis Esophageal reflux Diaphragmatic hernia without obstruction or gangrene Diaphragmatic hernia without mention of obstruction or gangrene Gastro-esophageal reflux disease without esophagitis Diaphragmatic hernia without obstruction or gangrene Diaphragmatic hernia without mention of obstruction or gangrene Acute bronchiolitis, unspecified documented in this encounter [facility]* Diagnosis Hiatal hernia- Primary Diaphragmatic hernia without mention of obstruction or gangrene GERD without esophagitis Esophageal reflux Diaphragmatic hernia without obstruction or gangrene Diaphragmatic hernia without mention of obstruction or gangrene Gastro-esophageal reflux disease without esophagitis Diaphragmatic hernia without obstruction or gangrene Diaphragmatic hernia without mention of obstruction or gangrene Acute bronchiolitis, unspecified documented in this encounter [facility]* Diagnosis Hiatal hernia Diaphragmatic hernia without mention of obstruction or gangrene Diaphragmatic hernia without obstruction or gangrene Diaphragmatic hernia without mention of obstruction or gangrene Gastro-esophageal reflux disease without esophagitis Diaphragmatic hernia without obstruction or gangrene Diaphragmatic hernia without mention of obstruction or gangrene Acute bronchiolitis, unspecified documented [facility] this encounter [facility]* Diagnosis Hiatal hernia- Primary Diaphragmatic [...] Acute bronchiolitis, unspecified documented in this encounter [facility] note* Diagnosis Abdominal pain, unspecified abdominal location- Primary Constipation, unspecified constipation type Diaphragmatic hernia without obstruction or gangrene Diaphragmatic hernia without mention of obstruction or gangrene Acute bronchiolitis, unspecified documented in this encounter [facility]* Diagnosis Hiatal hernia- Primary Diaphragmatic hernia without mention of obstruction or gangrene GERD without esophagitis Esophageal reflux Hiatal hernia Diaphragmatic hernia without mention of obstruction or gangrene Diaphragmatic hernia without obstruction or gangrene Diaphragmatic hernia without mention of obstruction or gangrene Acute bronchiolitis, unspecified documented in this encounter [facility] note* Diagnosis Hiatal hernia- Primary Diaphragmatic hernia without mention of obstruction or gangrene GERD without esophagitis Esophageal reflux Hiatal hernia Diaphragmatic hernia without mention of obstruction or gangrene Diaphragmatic hernia without obstruction or gangrene Diaphragmatic hernia without mention of obstruction or gangrene Acute bronchiolitis, unspecified documented in this encounter [facility]* Diagnosis Abdominal pain- Primary Abdominal pain, unspecified site Generalized abdominal pain Abdominal pain, generalized Nausea and vomiting, unspecified vomiting type Generalized abdominal pain Abdominal pain, generalized Diaphragmatic hernia without obstruction or gangrene Diaphragmatic hernia without mention of obstruction or gangrene Acute bronchiolitis, unspecified documented in this encounter [facility]* Diagnosis GERD without esophagitis- Primary Esophageal reflux Hiatal hernia Diaphragmatic hernia without mention of obstruction or gangrene Diaphragmatic hernia without obstruction or gangrene Diaphragmatic hernia without mention of obstruction or gangrene Acute bronchiolitis, unspecified documented in this encounter [facility] note* Diagnosis Hiatal hernia- Primary Diaphragmatic hernia without mention of obstruction or gangrene Hiatal hernia Diaphragmatic hernia without mention of obstruction or gangrene Gastroesophageal reflux disease without esophagitis Esophageal reflux Hx of hiatal hernia documented in this encounter [facility]* Diagnosis Encounter for postoperative care- Primary Hiatal hernia Diaphragmatic hernia without mention of obstruction or gangrene GERD without esophagitis Esophageal reflux Oral thrush Candidiasis of mouth documented in this encounter [facility]* Diagnosis Encounter for postoperative care- Primary Hiatal hernia Diaphragmatic hernia without mention of obstruction or gangrene GERD without esophagitis Esophageal reflux documented in this encounter [facility] Work Phone: Progress note Author Angelica Brown [facility] Note Date/Time November 29, 2024 1 :40pm [facility] [address] [place] [address] OFFICE VISIT Date of Service: 11/29/24 MR#: [id number] Acct: [id number] Patient: SHEYLA RAMIREZ Rep #: [id number] : 1945 Provider: THERESA Betancur Age/Sex: 79/F [place] [facility] [place] Status: Signed Intake Vital Signs 11/21/24 14:24 Height 5 ft 7 in Weight: 157 lb 8 oz BMI 24.6 BP 127/77 H Blood Pressure Location Lt brachial Position Sitting Pulse 70 Pulse Source Monitor Pulse Oximetry (%) 96 Oxygen Delivery Method room air Intake Visit Reasons: flu shot Chief Complaint: flu shot 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 VIS Given Date VIS Provided VIS Publication Date 11/29/24 Single Vaccine 24 Eligibility Eligibility Date Funding Source Not Applicable Administration Comments: parker injection patient tolerated well Assessment and Plan Assessment and Plan Orders: Orders Influenza Immunization 11/29/24 Z23 - Encounter for immunization Clinical Quality Measures Falls Risk Screening/Assistive Devices Have you fallen in the past year?: No 12/09/24 1653 <Electronically signed by Angelica BHAKTA> Date _ Angelica BHAKTA Cosigner Signature: Date (if applicable) CC: ~ [facility] Work Phone: Reason for referral (narrative)No reason for referral information availableBlSan [facility] Work Phone: Summary Purpose Family History No [...] Healthcare Agent Relationshi p Communication Julian Jordan [facility] Care Agent Healthcare Agents on File Name Relationship Healthcare Agent Relationshi p Communication Julian Jordan [facility] Care Agent Healthcare Agents on File Name Relationship Healthcare Agent Relationshi p Communication Julian Jordan [facility] Care Agent Healthcare Agents on File Name Relationship Healthcare Agent Relationshi p Communication Julian Jordan [facility] Care Agent Chief Complaint and Reason for Visit Chief Complaint 3 M FU 3 M FU Reason for Visit Bilateral impacted c erumen Essential (primary) hypertension Type 2 diabetes mellitus Abdominal pain Essential (primary) hypertension Type 2 diabetes mellitus Chief Complaint 3 M FU 3 M FU 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, 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, 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 CAROTID ARTERY DISEASE Reason for Visit Bilateral impacted c erumen Essential (primary) hypertension Type 2 diabetes mellitus Abdominal pain Essential (primary) hypertension Type 2 diabetes mellitus Carotid artery disease Diabetes mellitus type 2, controlled, without complications Essential (primary) hypertension Chief Complaint 3 M FU 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, 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, 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 CAROTID [...] October 24, 2024 12:54pm Essential (primary) hypertension [facility] 2024 12:54pm GERD (gastroesophageal reflux disease) [facility] 2024 12:54pm Hyperlipidemia October 24, 2024 [...] October 24, 2024 12:54pm Essential (primary) hypertension [facility] [facility]54pm GERD (gastroesophageal reflux disease) [facility] 2024 12:54pm Hyperlipidemia October 24, 2024 [...] October 24, 2024 12:54pm Essential (primary) hypertension [facility] 2024 12:54pm GERD (gastroesophageal reflux disease) [facility] 2024 12:54pm Hyperlipidemia October 24, 2024 [...] section and content) DATE CREATED AUTHOR 01/02/2020 [facility] ([place]) DATE CREATED AUTHOR AUTHOR'S ORGANIZ ATION 02/27/2024 [facility] DATE CREATED AUTHOR AUTHOR'S ORGANIZ ATION 12/21/2024 [facility] Goals (unrecognized section and content) Goals may [...] MD Attending Provider, Referring Provi curtis Active Excellence Leader Relationship Specialty Start Date End Date Lena Thonre B [address] [place] [address] PCP - General Internal Medicine 06/02/23 Excellence Leader Relationship Specialty Start Date End Date Lena Thorne B [address] [place] [phone] PCP - General Internal Medicine 06/02/23 Chandana Bailey [address] [place] [phone] Gastroenterology 06/26/23 Excellence Leader Relationship Specialty Start Date End Date Miriam Thornebe B [address] [place] [phone] PCP - General Internal Medicine 06/02/23 Chandana Bailey [address] [place] [address] Gastroenterology 06/26/23 Excellence Leader Relationship Specialty Start Date End Date Lena Thorne [address] [place] [phone] PCP - General Internal Medicine 06/02/23 Chandana Bailey [address] [place] [address] Gastroenterology 06/26/23 Excellence Leader Relationship Specialty Start Date End Date Lena Thorne [address] [place] [phone] PCP - General Internal Medicine 06/02/23 Chandana Bailey [address] [place] [address] Gastroenterology 06/26/23 Excellence Leader Relationship Specialty Start Date End Date Lena Thorne [address] [place] [phone] PCP - General Internal Medicine 06/02/23 Chandana Bailey [address] [place] [address] Gastroenterology 06/26/23 Excellence Leader Relationship Specialty Start Date End Date Lena Thorne [address] [place] [phone] PCP - General Internal Medicine 06/02/23 Chandana Bailey [address] [place] [address] Gastroenterology 06/26/23 Excellence Leader Relationship Specialty Start Date End Date BassemgalloRubenjigarjames Salgado [address] [place] [phone] PCP - General Internal Medicine 06/02/23 Chandana Bailey [address] [place] [address] Gastroenterology 06/26/23 Excellence Leader Relationship Specialty Start Date End Date BassemgalloRubenjigarjames Salgado [address] [place] [phone] PCP - General Internal Medicine 06/02/23 Chandana Bailey [address] [place] [address] Gastroenterology 06/26/23 Excellence Leader Relationship Specialty Start Date End Date BassemgalloRubenjigarjames Salgado [address] [place] [phone] PCP - General Internal Medicine 06/02/23 Chandana Bailey [address] [place] [address] Gastroenterology 06/26/23 Excellence Leader Relationship Specialty Start Date End Date Lena Thorne [address] [place] [phone] PCP - General Internal Medicine 06/02/23 Chandana Bailey [address] [place] [phone] Gastroenterology 06/26/23 Excellence Leader Relationship Specialty Start Date End Date Lena Thorne [address] [place] [phone] PCP - General Internal Medicine 06/02/23 Chandana Bailey [address] [place] [phone] Gastroenterology 06/26/23 Excellence Leader Relationship Specialty Start Date End Date Lena Thorne [address] [place] [phone] PCP - General Internal Medicine 06/02/23 Chandana Bailey [address] [place] [phone] Gastroenterology 06/26/23 Excellence Leader Relationship Specialty Start Date End Date Lean Thorne [address] [place] [phone] PCP - General Internal Medicine 06/02/23 Chandana Bailey [address] [place] [phone] Gastroenterology 06/26/23 Excellence Leader Relationship Specialty Start Date End Date BassemLena holder [address] [place] [phone] PCP - General Internal Medicine 06/02/23 Chandana Bailey [address] [place] [address] Gastroenterology 06/26/23 Excellence Leader Relationship Specialty Start Date End Date Lena Thorne [address] [place] [phone] PCP - General Internal Medicine 06/02/23 Chandana Bailey [address] [place] [address] Gastroenterology 06/26/23 Excellence Leader Relationship Specialty Start Date End Date BassemLena holder [address] [place] [phone] PCP - General Internal Medicine 06/02/23 Chandana Bailey [address] [place] [address] Gastroenterology 06/26/23 Excellence Leader Relationship Specialty Start Date End Date Bassemgallo Rubennatidonta Salgado [address] [place] [phone] PCP - General Internal Medicine 06/02/23 Chandana Bailey [address] [place] [address] Gastroenterology 06/26/23 Autumn Worley, RN Registered Nurse Instrumentation And Controls Technician Manager 08/27/23 Vitor Camarillo [address] [place] [address] Cardiology 08/27/23 Excellence Leader Relationship Specialty Start Date End Date Lena Thorne [address] [place] [address] PCP - General Internal Medicine 06/02/23 Chandana Bailey [address] [place] [address] Gastroenterology 06/26/23 Autumn Worley, RN Registered Nurse Instrumentation And Controls Technician Manager 08/27/23 Vitor Camarillo [address] [place] [address] Cardiology 08/27/23 Excellence Leader Relationship Specialty Start Date End Date Lena Thorne [address] [place] [address] PCP - General Internal Medicine 06/02/23 Chandana Bailey [address] [place] [address] Gastroenterology 06/26/23 Autumn Worley, RN Registered Nurse Instrumentation And Controls Technician Manager 08/27/23 Vitor Camarillo [address] [place] [address] Cardiology 08/27/23 Excellence Leader Relationship Specialty Start Date End Date BassemLena holder Damian [address] [place] [address] PCP - General Internal Medicine 06/02/23 Chandana Bailey [address] [place] [address] Gastroenterology 06/26/23 Autumn Worley, RN Registered Nurse Instrumentation And Controls Technician Manager 08/27/23 Vitor Camarillo [address] [place] [phone] Cardiology 08/27/23 Excellence Leader Relationship Specialty Start Date End Date BassemgalloRubennatidonta Salgado [address] [place] [address] PCP - General Internal Medicine 06/02/23 Chandana Bailey MD [address] [place] [phone] Gastroenterology 06/26/23 Autumn Worley, RN Registered Nurse Instrumentation And Controls Technician Manager 08/27/23 Vitor Camarillo [address] [place] [address] Cardiology 08/27/23 Excellence Leader Relationship Specialty Start Date End Date BassemgalloRubennatidonta Salgado [address] [place] [address] PCP - General Internal Medicine 06/02/23 Chandana Bailey MD [address] [place] [address] Gastroenterology 06/26/23 Autumn Worley, STEPHENIE Registered Nurse Instrumentation And Controls Technician Manager 08/27/23 Vitor Camarillo [address] [place] [address] Cardiology 08/27/23 Excellence Leader Relationship Specialty Start Date End Date Lena Thorne [address] [place] [address] PCP - General Internal Medicine 06/02/23 Chandana Bailey MD [address] [place] [address] Gastroenterology 06/26/23 Autumn Worley RN Registered Nurse Instrumentation And Controls Technician Manager 08/27/23 Vitor Camarillo [address] [place] [address] Cardiology 08/27/23 Excellence Leader Relationship Specialty Start Date End Date Lena Thorne [address] [place] [phone] PCP - General Internal Medicine 06/02/23 Chandana Bailey MD [address] [place] [address] Gastroenterology 06/26/23 Autumn Worley, STEPHENIE Registered Nurse Instrumentation And Controls Technician Manager 08/27/23 Rabia, Vitor [address] [place] [address] Cardiology 08/27/23 Excellence Leader Relationship Specialty Start Date End Date Lena Thorne [address] [place] [phone] PCP - General Internal Medicine 06/02/23 Chandana Bailey MD [address] [place] [phone] Gastroenterology 06/26/23 Autumn Worley, RN Registered Nurse Instrumentation And Controls Technician Manager 08/27/23 Rabia, [place] [address] [place] [phone] Cardiology 08/27/23 Team Status: Inactive Member Role [...] Comments Results 06/02/2023 Reason Comments 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 Specialty Diagnoses / Procedures Referred By Tawana perez Referred To Contact General Surgery Diagnoses Diaphragmatic hernia without obstruction or gangrene Procedures SD ABDOMEN WALL SURG PROC UNLISTED Chandana Bailey [address] [place] [address] Julian Kruse MD [address] [facility] [address] [place] [address] Referral ID Status Reason Start Date Expiration Date Visits Re quested Visits Authorized [id number] Closed 06/02/2023 12/02/2023 1 1 Specialty Diagnoses / Procedures Referred By Tawana perez Referred To Contact Diagnoses Diaphragmatic hernia without obstruction or gangrene Gastro-esophageal reflux disease without esophagitis Procedures SD EGD TRANSORAL BIOPSY SINGLE/MULTIPLE ESOPHAGOGASTRODUODENOSCOPY WITH BIOPSY Julian Kruse MD [address] [facility] [address] [place] [address] [address] [facility] [address] [place] [address] Referral ID Status Reason Start Date Expiration Date Visits Re quested Visits Authorized [id number] 1 1 Reason Comments Abdominal Pain Pt [...] vomiting type Procedures . Arsalan Swenson MD [address] [place] [address] [address] [place] [address] Referral ID Status Reason Start Date Expiration Date Visits Re quested Visits Authorized [id number] 1 1 Reason Onset Date Comments Appointment 08/25/2023 Reason Comments Follow-up F/U -pre op, HH *car diac clearance approved Reason Onset Date Comments Transitional Care Management Outreach 09/04/2023 Specialty Diagnoses / Procedures Referred By Tawana perez Referred To Contact Diagnoses Diaphragmatic hernia without obstruction or gangrene Acute bronchiolitis, unspecified Procedures SD LAPS RPR PARAESPHGL HRNA INCL FUNDPLSTY W/MESH SD EGD TRANSORAL BIOPSY SINGLE/MULTIPLE LAPAROSCOPIC HIATAL HERNIA REPAIR, WITH MESH, WITH POSTERIOR FUNDOPLICATION, ESOPHAGOGASTRODUODENOSCOPY WITH BIOPSY, POSSIBLE OPEN Julian Kruse MD [address] [facility] [address] [place] [address] [facility] [address] [place] [address] Referral ID Status Reason Start Date Expiration Date Visits Re quested Visits Authorized [id number] 1 1 Reason Onset Date Comments OTHER 08/24/2023 Reason Comments Post-op POST OP JZ Reason Comments Post-op 09/02/2023 JZ Continuous Active and Recently Administ ered Medications (unrecognized section and content) Medication Order 08/02/2023 08/03/2023 08/04/2023 sodium chloride 0.9 % infusion 100 mL/hr, IntraVENous, Continuous, Starting on Thu08/04/23 at 1000, Preprocedure 1040 (New Bag - Prov ider: Lashanda Ruelas APRN - PAULA)1048 (Anesthesia Volume Adjustment - [...] sedation for opioid reversal - MUST notify vmware consultant provider immediately after first dose, may give [...] BE BASED ON THE PRIMARY CLINICAL RECORDS. [employer] [facility]. provides no warranty or guarantee of the accuracy or completeness of information in this document.
[2025-02-10 15:09] LABS: Mucous, Urine 0 SEEN /hpf (<or=2+); Squamous Epithelial Cells - UA 0 SEEN /hpf (5-10)
[2025-02-10] MEDS: 0.9% Normal Saline (1000mL) 1,000 ML 150 ML IV (15:12)
[2025-02-10 15:13] LABS: Color, Urine Amber (Yellow); Glucose, Dipstick 100 mg/dl (Normal); Ketone-Dipstick Negative (Negative); Leukocyte Esterase-Dipstick 25 /ul (Negative); Nitrite-Dipstick Positive (Negative); Occult Blood-Urine 250 /ul (Negative); Protein-Dipstick 100 mg/dl (Negative); Specific Gravity, Urine 1.025 (1.002-1.030); Urine Bilirubin Dipstick 3 mg/dL (Negative)
[2025-02-10 15:14] VITALS: BP 142/67; PULSE 87; RESP 16; TEMP 36.4; O2SAT 100
[2025-02-10 15:21] LABS: Red Blood Cells-Urine 50-100 SEEN /hpf (0-5)
[2025-02-10 15:29] LABS: Hematocrit 38.3 % (37-47); Hemoglobin 12.7 g/dL (12.0-15.0); Immature Granulocytes Count 0.030 X10^3/uL (0.0-0.0); Mean Corp Hgb Conc 33.2 g/dL (32-36); Mean Corpuscular Volume 88.5 fL (81-99); Mean Platelet Vol. 10.4 fl (6.2-12.0); NRBC Flagged by Analyzer 0 % (0-5); Platelet Count 186 K/mm3 (150-450); RBC Distribution Width CV 13.7 % (11.6-14.6); RBC Distribution Width SD 44.3 fl (35.1-43.9); Red Blood Count 4.33 M/mm3 (4.2-5.4); White Blood Count 9.6 K/mm3 (4.4-11.0)
[2025-02-10 16:00] VITALS: BP 136/84; PULSE 78; RESP 16; O2SAT 98
[2025-02-10 16:02] LABS: Anion Gap 12 (7-18); BUN 31 mg/dL (4-19); BUN/Creat Ratio 22.8 RATIO (10-20); Calcium,Total 9.3 mg/dL (7.6-11.0); Carbon Dioxide 23.1 mmol/L (20.0-29.0); Chloride 105 mmol/L (96-106); Estimated Creatinine Clearance 33.15 ml/min (50-250); Glucose 167 mg/dL (70-99); Potassium 4.0 mmol/L (3.5-5.1)
[2025-02-10 17:00] VITALS: BP 110/94; PULSE 94
--- NOTE | 2025-02-10 17:11 | EX.ED.DYSGE1 ---
HPI History of Present Illness Chief Complaint: Abd Pain Detail of Chief Complaint: Left lower quadrant abdominal pain, discomfort with urination and hematuria Informant: patient Onset/Context/Timing Onset: Days Context: Sudden Onset Timing: Continuous and Waxes and wanes Quality: Pain left lower quadrant Location: Left lower quadrant Current Severity: Mild Maximum Severity: Moderate Worsened by: Nothing Relieved by: Nothing Associated Symptoms Associated Symptoms: Hematuria and slight discomfort with urination [facility] Medical History (Updated 02/10/25 @ 17:[address] Luis Ramírez MD) Kidney stones Hypertension Wears hearing aid Wears glasses Post-menopausal High cholesterol Back pain Gastric reflux Non-smoker History of edema History of echocardiogram History of stress test Cardiology follow-up encounter Localized swelling, mass and lump, right lower limb Hip swelling Type 2 diabetes mellitus Diabetes Thyroid nodule Neck mass Back pain Lumbar radiculopathy Constipation Pain in left araya Low back pain Left hip pain Osteopenia Hyperlipidemia Health care maintenance Carotid artery disease OSCAR (acute kidney injury) Abdominal pain Bilateral impacted cerumen Flu vaccine need Vitamin D deficiency Breast cancer screening GERD (gastroesophageal reflux disease) GERD (gastroesophageal reflux disease) Essential (primary) hypertension Cough Intermittent palpitations Thyroid disease Palpitation partial sigmoidectomy Thyroid disease Pneumonia Osteoarthritis Hearing problem Glaucoma Back problem Arthritis Seasonal allergies Home Medications ?Medication ?Instructions ?Recorded ?Last Taken ?Type latanoprost 0.005 % eye drops 1 drp ophthalmic (eye) QDAY 01/28/17 Unknown History blood sugar diagnostic (FreeStyle #90 ea 06/13/21 Unknown Rx Precision Leonardo Strips) lancets (Accu-Chek Fastclix Lancet #102 ea 09/12/21 Unknown Rx Drum) cholecalciferol (vitamin D3) 1,250 1,250 mcg PO QWEEK #20 caps 01/01/23 Unknown Rx mcg (50,000 unit) capsule lansoprazole 15 mg capsule,delayed 15 mg PO QHS PRN GERD 30 days #30 07/29/23 02/08/25 History release caps brimonidine 0.2 % eye drops 1 drp ophthalmic (eye) BID 01/05/24 Unknown History atorvastatin 10 mg tablet See Rx Instructions .Route 01/21/24 Unknown Rx .COMPLEX #90 tabs metformin 500 mg tablet 500 mg PO BID #180 tabs 05/03/24 Unknown Rx aspirin 81 mg tablet,delayed 81 mg PO QDAY #90 tabs 07/19/24 02/05/25 Rx release (Adult Aspirin Regimen) FreeStyle Wilfredo 3 Plus Sensor #6 ea 08/08/24 Unknown Rx (blood-glucose sensor) blood-glucose,air control/anti air warfare officer,cont #1 ea 08/08/24 Unknown Rx (FreeStyle Wilfredo 3 [place]) glimepiride 4 mg tablet 4 mg PO BID 3 months #180 tabs 10/24/24 Unknown Rx Novolog FlexPen U-100 Insulin 100 10 unit (0.1 mL) subcut TID #15 mL 11/21/24 Unknown Rx unit/mL (3 mL) subcutaneous (insulin aspart U-100) pen needle, diabetic 32 gauge x #50 ea 11/21/24 Unknown Rx insulin glargine 100 unit/mL (3 10 unit (0.1 mL) subcut QPM #15 mL 11/28/24 Unknown Rx mL) subcutaneous pen (Basaglar KwikPen U-100 Insulin) losartan 25 mg tablet 12.5 mg (1/2 x 25 mg) PO QDAY #90 01/09/25 02/08/25 Rx tabs ondansetron 4 mg disintegrating 4 mg PO Q8H PRN PRN Nausea #10 tabs 01/22/25 Unknown Rx tablet insulin degludec 100 unit/mL (3 5 unit subcut DAILY 02/07/25 Unknown History mL) subcutaneous pen (Tresiba FlexTouch U-100 insulin) ciprofloxacin HCl 500 mg tablet 500 mg PO BID #6 tabs 02/08/25 Unknown Rx (Cipro) oxycodone 5 mg tablet 5 mg PO Q6H PRN pain 3 days #7 tabs 02/08/25 Unknown Rx phenazopyridine 100 mg tablet 100 mg PO TID PRN pain #14 tabs 02/08/25 Unknown Rx (Pyridium) oxycodone-acetaminophen 5 mg-325 1 tab PO Q6H PRN PRN Pain 3 days 02/10/25 Unknown Rx mg tablet #12 TABLETS phenazopyridine 200 mg tablet 200 mg PO TID #10 tabs 02/10/25 Unknown Rx (Pyridium) Allergy/AdvReac Type Severity Reaction Status Date / Time Penicillins Allergy Severe Rash Verified 02/10/25 14:14 grass pollen Allergy Intermediate Unknown Verified 02/10/25 14:14 house dust Allergy Intermediate Unknown Verified 02/10/25 14:14 mold Allergy Intermediate Unknown Verified 02/10/25 14:14 Seasonal Allergies: Uncoded Allergy Intermediate NEEDS Verified 02/10/25 14:14 FOLLOW-UP Sulfa (Sulfonamide Allergy Unknown Swelling Verified 02/10/25 14:14 Antibiotics) neomycin Allergy edeema, Verified 02/10/25 14:14 skin reaction lisinopril AdvReac cough Verified 02/10/25 14:14 Family History Mother Breast cancer Diabetes Father Thyroid disorder Cancer Grandfather CVA (cerebral vascular accident) Surgical History Hx of dilation and curettage S/P laparoscopic fundoplication Normal colonoscopy History of right breast biopsy Social History Smoking Status: Never smoker second hand exposure: No alcohol intake: current alcohol intake frequency: holidays/special occasions only substance use type: does not use caffeine: Yes Type: coffee Number of servings: 1 what type of physical activity do you participate in: none EXAM Physical Exam Const Vital Signs: 02/10/25 14:12 02/10/25 15:14 02/10/25 16:00 Temperature 97.8 F 97.6 F L Temperature Source Oral Oral Pulse Rate 70 87 78 Respiratory Rate 22 H 16 16 Blood Pressure 151/65 H 142/67 H 136/84 H Blood Pressure Mean 93 92 101 Pulse Ox 99 100 98 Oxygen Delivery Method Room Air Room Air [facility] Lab Data Labs: Laboratory Results - last 24 hr 02/10/25 02/10/25 14:30 15:12 WBC 9.6 RBC 4.33 Hgb 12.7 Hct 38.3 MCV 88.5 MCH 29.3 MCHC 33.2 RDW Std Deviation 44.3 H RDW Coeff of Christen 13.7 Plt Count 186 MPV 10.4 Immature Gran % (Auto) 0.300 Neut % (Auto) 71.1 H Lymph % (Auto) 17.6 L [place] % (Auto) 10.3 H Eos % (Auto) 0.4 Baso % (Auto) 0.3 Absolute Neuts (auto) 6.9 Absolute Lymphs (auto) 1.70 Nucleated RBC % 0 Sodium 140 Potassium 4.0 Chloride 105 Carbon Dioxide 23.1 Anion Gap 12 BUN 31 H Creatinine 1.36 H Estim Creat Clear Calc 33.15 L Est GFR (MDRD) Non-Af 40 L BUN/Creatinine Ratio 22.8 H Glucose 167 H Calcium 9.3 Urine Color Leyla Urine Clarity Turbid Urine pH 5.0 Ur Specific [place] 1.025 Urine Protein 100 H Urine Glucose (UA) 100 H Urine Ketones Negative Urine Occult Blood 250 H Urine Nitrite Positive H Urine Bilirubin 3 H Urine Urobilinogen 4 H Ur Leukocyte Esterase 25 H Urine RBC 50-100 SEEN Urine WBC 0 SEEN Ur Squamous Epith Cells 0 SEEN Urine Bacteria 1+ Urine Mucus 0 SEEN Discharge Plan Triage Chief Complaint: Abd Pain ED Provider: Luis Ramírez Dx/Rx/DC Orders Clinical Impression: Abdominal pain, left lower quadrant, Gross hematuria, Disorder due to ureteral stent, Frequency of micturition, Essential (primary) hypertension, Renal insufficiency, Type 2 diabetes mellitus Instructions: Having a Ureteral Stent Prescriptions: New oxycodone-acetaminophen 5-325 mg tablet 1 tab PO Q6H PRN PRN (Reason: Pain) 3 Days Qty: 12 0RF phenazopyridine [Pyridium] 200 mg tablet 200 mg PO TID Qty: 10 0RF No Action latanoprost 0.005 % drops 1 drp OPHTHALMIC QDAY lansoprazole 15 mg capsule,delayed release(DR/EC) 15 mg PO QHS PRN (Reason: GERD) 30 Days Qty: 30 (DME) FreeStyle Precision Leonardo Strips Strip See Rx Instructions .ROUTE .MEDSUPPLY Qty: 90 11RF Rx Instructions: 3x/day brimonidine 0.2 % drops 1 drp ophthalmic (eye) BID (DME) lancets [Accu-Chek Fastclix Lancet Drum] Misc See Rx Instructions .Route Qty: 102 6RF Rx Instructions: 3 times daily cholecalciferol (vitamin D3) 1,250 mcg (50,000 unit) capsule 1,250 mcg PO QWEEK Qty: 20 3RF (DME) FreeStyle Wilfredo 3 [place] Misc See Rx Instructions .Route Qty: 1 0RF Rx Instructions: As directed (DME) FreeStyle Wilfredo 3 Plus Sensor Device See Rx Instructions .Route Qty: 6 3RF Rx Instructions: As directed aspirin [Adult Aspirin Regimen] 81 mg tablet,delayed release (DR/EC) 81 mg PO QDAY Qty: 90 3RF insulin aspart U-100 [Novolog FlexPen U-100 Insulin] 100 unit/mL (3 mL) insulin pen 10 unit subcut TID Qty: 15 6RF (DME) pen needle, diabetic 32 gauge x 5/32 needle See Rx Instructions .ROUTE .MEDSUPPLY Qty: 50 4RF Rx Instructions: 4 times daily ondansetron 4 mg tablet,disintegrating 4 mg PO Q8H PRN PRN (Reason: Nausea) Qty: 10 0RF insulin degludec [Tresiba FlexTouch U-100] 100 unit/mL (3 mL) insulin pen 5 unit subcut DAILY ciprofloxacin HCl [Cipro] 500 mg tablet 500 mg PO BID Qty: 6 0RF Rx Instructions: okay to crush phenazopyridine [Pyridium] 100 mg tablet 100 mg PO TID PRN (Reason: pain) Qty: 14 0RF oxycodone 5 mg tablet 5 mg PO Q6H PRN (Reason: pain) 3 Days Qty: 7 0RF atorvastatin 10 mg tablet See Rx Instructions .ROUTE .COMPLEX Qty: 90 3RF Dose Instruction: TAKE 1 TABLET BY MOUTH EVERY DAY Rx Instructions: TAKE 1 TABLET BY MOUTH EVERY DAY metformin 500 mg tablet 500 mg PO BID Qty: 180 1RF glimepiride 4 mg tablet 4 mg PO BID 90 Days Qty: 180 3RF insulin glargine [Basaglar KwikPen U-100 Insulin] 100 unit/mL (3 mL) insulin pen 10 unit subcut QPM Qty: 15 5RF losartan 25 mg tablet 12.5 mg PO QDAY Qty: 90 3RF Primary Care Provider: Naren Thorne Referrals: Naren Thorne MD [Primary Care Provider, Internal Medicine] Kelton Skinner MD [Med Staff - Active Staff, Urology] - As soon as possible Print Language: Danish Disposition Disposition: Home, Self Care
--- NOTE | 2025-02-10 17:20 | EDS_ITS ---
HPI History of Present Illness Chief Complaint: Abd Pain Narrative Narrative: There are 2 charts for this visit because the first 1 was inadvertently signed because of issues with doing the discharge home going instructions and prescriptions. [facility] Medical History (Updated 02/10/25 @ 17:[address] Luis Ramírez MD) Kidney stones Hypertension Wears hearing aid Wears glasses Post-menopausal High cholesterol Back pain Gastric reflux Non-smoker History of edema History of echocardiogram History of stress test Cardiology follow-up encounter Localized swelling, mass and lump, right lower limb Hip swelling Type 2 diabetes mellitus Diabetes Thyroid nodule Neck mass Back pain Lumbar radiculopathy Constipation Pain in left araya Low back pain Left hip pain Osteopenia Hyperlipidemia Health care maintenance Carotid artery disease OSCAR (acute kidney injury) Abdominal pain Bilateral impacted cerumen Flu vaccine need Vitamin D deficiency Breast cancer screening GERD (gastroesophageal reflux disease) GERD (gastroesophageal reflux disease) Essential (primary) hypertension Cough Intermittent palpitations Thyroid disease Palpitation partial sigmoidectomy Thyroid disease Pneumonia Osteoarthritis Hearing problem Glaucoma Back problem Arthritis Seasonal allergies Home Medications ?Medication ?Instructions ?Recorded ?Last Taken ?Type latanoprost 0.005 % eye drops 1 drp ophthalmic (eye) Q DAY 01/28/17 Unknown History blood sugar diagnostic (FreeStyle #90 ea 06/13/21 Unkn own Rx Precision Leonardo Strips) lancets (Accu-Chek Fastclix Lancet #102 ea 09/12/21 Un known Rx Drum) cholecalciferol (vitamin D3) 1,250 1,250 mcg PO QWEEK #20 caps 01/01/23 Unknown Rx mcg (50,000 unit) capsule lansoprazole 15 mg capsule,delayed 15 mg PO QHS PRN GE RD 30 days #30 07/29/23 02/08/25 History release caps brimonidine 0.2 % eye drops 1 drp ophthalmic (eye) BID 01/05/24 Unknown History atorvastatin 10 mg tablet See Rx Instructions .Route 1 03/23/23 Unknown Rx .COMPLEX #90 tabs metformin 500 mg tablet 500 mg PO BID #180 tabs 04/16 10/10 Unknown Rx aspirin 81 mg tablet,delayed 81 mg PO QDAY #90 tabs 02/05/25 Rx release (Adult Aspirin Regimen) FreeStyle Wilfredo 3 Plus Sensor #6 ea 08/08/24 Unknown R x (blood-glucose sensor) blood-glucose,ob scrub tech,cont #1 ea 08/08/24 Unknown Rx (FreeStyle Wilfredo 3 [place]) glimepiride 4 mg tablet 4 mg PO BID 3 months #180 ta bs 10/24/24 Unknown Rx Novolog FlexPen U-100 Insulin 100 10 unit (0.1 mL) sub cut TID #15 mL 11/21/24 Unknown Rx unit/mL (3 mL) subcutaneous (insulin aspart U-100) pen needle, diabetic 32 gauge x #50 ea 11/21/24 Unknow n Rx insulin glargine 100 unit/mL (3 10 unit (0.1 mL) subcu t QPM #15 mL 11/28/24 Unknown Rx mL) subcutaneous pen (Basaglar KwikPen U-100 Insulin) losartan 25 mg tablet 12.5 mg (1/2 x 25 mg) PO QDA Y #90 01/09/25 02/08/25 Rx tabs ondansetron 4 mg disintegrating 4 mg PO Q8H PRN PRN Na usea #10 tabs 01/22/25 Unknown Rx tablet insulin degludec 100 unit/mL (3 5 unit subcut DAILY Unknown History mL) subcutaneous pen (Tresiba FlexTouch U-100 insulin) ciprofloxacin HCl 500 mg tablet 500 mg PO BID #6 tabs 02/08/25 Unknown Rx (Cipro) oxycodone 5 mg tablet 5 mg PO Q6H PRN pain 3 days #7 tabs 02/08/25 Unknown Rx phenazopyridine 100 mg tablet 100 mg PO TID PRN pain # 14 tabs 02/08/25 Unknown Rx (Pyridium) oxycodone-acetaminophen 5 mg-325 1 tab PO Q6H PRN PRN Pain 3 days 02/10/25 Unknown Rx mg tablet #12 TABLETS phenazopyridine 200 mg tablet 200 mg PO TID #10 tabs 1 04/13/24 Unknown Rx (Pyridium) Allergy/AdvReac Type Severity Reaction Status Date / Time Penicillins Allergy Severe Rash Verified 02/10/25 14:14 grass pollen Allergy Intermediate Unknown Verified 02/10/25 14:14 house dust Allergy Intermediate Unknown Verified 02/10/25 14:14 mold Allergy Intermediate Unknown Verified 02/10/25 14:14 Seasonal Allergies: Uncoded Allergy Intermediate NEEDS Verified 02/10/25 14:14 FOLLOW-UP Sulfa (Sulfonamide Allergy Unknown Swelling Verified 02/10/25 14:14 Antibiotics) neomycin Allergy edeema, Verified 02/10/25 14:14 skin reaction lisinopril AdvReac cough Verified 02/10/25 14:14 Family History Mother Breast cancer Diabetes Father Thyroid disorder Cancer Grandfather CVA (cerebral vascular accident) Surgical History Hx of dilation and curettage S/P laparoscopic fundoplication Normal colonoscopy History of right breast biopsy Social History Smoking Status: Never smoker second hand exposure: No alcohol intake: current alcohol intake frequency: holidays/special occasions only substance use type: does not use caffeine: Yes Type: coffee Number of servings: 1 what type of physical activity do you participate in: none ROS ROS ED Constitutional Constitutional ED: Denies chills, fever(s), subjective, sweats or weight loss Cardiovascular Cardiovascular: Denies chest pain or palpitations Respiratory/Chest Respiratory/Chest: Denies cough, dyspnea or dyspnea on exertion Gastrointestinal Gastrointestinal: Reports abdominal pain; Denies constipation, diarrhea, melena, nausea or vomiting Genitourinary Genitourinary ED: Reports dysuria and urinary frequency Musculoskeletal Musculoskeletal: Denies arthralgias, back pain, myalgias or neck pain Integumentary Denies abscess, Abrasions or rash Neurologic Neurologic: Denies headache(s) or paresthesias Hematologic/Lymphatic Hematologic/Lymphatic: Reports systems reviewed and no addt'l complaints, except as documented EXAM Physical Exam Const Vital Signs: 02/10/25 14:12 02/10/25 15:14 02/10/25 16:00 Temperature 97.8 F 97.6 F L Temperature Source Oral Oral Pulse Rate 70 87 78 Respiratory Rate 22 H 16 16 Blood Pressure 151/65 H 142/67 H 136/84 H Blood Pressure Mean 93 92 101 Pulse Ox 99 100 98 Oxygen Delivery Method Room Air Room Air Positive well nourished and well developed General Appearance ED: well developed and NAD; Negative for pallor HEENT Reports moist mucous membranes HEENT Narrative: Head is atraumatic normocephalic. Ears are normal Eyes PERRL and EOMs intact bilaterally General Eye ED: Negative for pale conjunctiva or scleral icterus Neck no lymphadenopathy, supple and no JVD Resp normal respiratory effort Cardio regular rate and regular rhythm GI normal to inspection, nondistended, normoactive bowel sounds, non-distended and no masses; Negative for non-tender or hepatosplenomegaly GI Narrative: There is no palpable pulsatile mass. There is no abdominal bruit. She has tenderness in the left lower quadrant. There is no peritoneal findings. Palpation: soft and tender LLQ; Negative for guarding, mass or rebound tenderness present Back/Spine no CVA tenderness Extremity normal to inspection General Extremety ED: Negative for edema or tenderness General Extremity: Negative for edema Neuro oriented x3 and CN's II-XII intact bilaterally Sensorium / Orientation: alert Skin no rashes or lesions noted and skin turgor normal General Skin Exam: Negative for jaundice or pallor MDM MDM MDM Narrative Medical decision making narrative: Differential diagnosis is urinary tract infection, irritation due to ureteral stent, bladder spasm due to ureteral stent, Patient states she was given 7 oxycodone tablets and she has been rationing the oxycodone tablets and Pyridium. She states she does experience improvement however she had very limited supply. She informed the Dr. Skinner was out of town. He is out of town. There is no one at the office. She is to call on Thursday. She was told this prior to surgery. Will obtain UA to assess for infection, CBC to assess H&H and white count, and BMP to assess renal function. Patient was unaware that her creatinine is elevated. She was instructed to stop taking the ibuprofen she was taking for the pain. History & Record Review Additional record(s) reviewed:: Prior outpatient record (Dr. Reynolds's operative note was reviewed. He apparently vaporized the stone per his op note.) Lab Data Attestation: I reviewed the patient's lab results. Lab results narrative: CBC is unremarkable. Electrolyte panel is remarkable for BUN of 31 and a creatinine 1.36 with an elevated BUN to creatinine ratio approximately 23-1. GFR is depressed at 40. Urinalysis reveals hematuria with no pyuria. She is pr esently on ciprofloxacin. There is evidence of bacteria. Labs: Laboratory Results - last 24 hr 02/10/25 02/10/25 14:30 15:12 WBC 9.6 RBC 4.33 Hgb 12.7 Hct 38.3 MCV 88.5 MCH 29.3 MCHC 33.2 RDW Std Deviation 44.3 H RDW Coeff of Christen 13.7 Plt Count 186 MPV 10.4 Immature Gran % (Auto) 0.300 Neut % (Auto) 71.1 H Lymph % (Auto) 17.6 L Sac % (Auto) 10.3 H Eos % (Auto) 0.4 Baso % (Auto) 0.3 Absolute Neuts (auto) 6.9 Absolute Lymphs (auto) 1.70 Nucleated RBC % 0 Sodium 140 Potassium 4.0 Chloride 105 Carbon Dioxide 23.1 Anion Gap 12 BUN 31 H Creatinine 1.36 H Estim Creat Clear Calc 33.15 L Est GFR (MDRD) Non-Af 40 L BUN/Creatinine Ratio 22.8 H Glucose 167 H Calcium 9.3 Urine Color Leyla Urine Clarity Turbid Urine pH 5.0 Ur Specific Collins 1.025 Urine Protein 100 H Urine Glucose (UA) 100 H Urine Ketones Negative Urine Occult Blood 250 H Urine Nitrite Positive H Urine Bilirubin 3 H Urine Urobilinogen 4 H Ur Leukocyte Esterase 25 H Urine RBC 50-100 SEEN Urine WBC 0 SEEN Ur Squamous Epith Cells 0 SEEN Urine Bacteria 1+ Urine Mucus 0 SEEN Discharge Plan Triage Chief Complaint: Abd Pain ED Provider: Luis Ramírez Dx/Rx/DC Orders Clinical Impression: Abdominal pain, left lower quadrant, Gross hematuria, Disorder due to ureteral stent, Frequency of micturition, Essential (primary) hypertension, Renal insufficiency, Type 2 diabetes mellitus Instructions: Having a Ureteral Stent Prescriptions: New oxycodone-acetaminophen 5-325 mg tablet 1 tab PO Q6H PRN PRN (Reason: Pain) 3 Days Qty: 12 0RF phenazopyridine [Pyridium] 200 mg tablet 200 mg PO TID Qty: 10 0RF No Action latanoprost 0.005 % drops 1 drp OPHTHALMIC QDAY lansoprazole 15 mg capsule,delayed release(DR/EC) 15 mg PO QHS PRN (Reason: GERD) 30 Days Qty: 30 (DME) FreeStyle Precision Leonardo Strips Strip See Rx Instructions .ROUTE .MEDSUPPLY Qty: 90 11RF Rx Instructions: 3x/day brimonidine 0.2 % drops 1 drp ophthalmic (eye) BID (DME) lancets [Accu-Chek Fastclix Lancet Drum] Misc See Rx Instructions .Route Qty: 102 6RF Rx Instructions: 3 times daily cholecalciferol (vitamin D3) 1,250 mcg (50,000 unit) capsule 1,250 mcg PO QWEEK Qty: 20 3RF (DME) FreeStyle Wilfredo 3 [place] Misc See Rx Instructions .Route Qty: 1 0RF Rx Instructions: As directed (DME) FreeStyle Wilfredo 3 Plus Sensor Device See Rx Instructions .Route Qty: 6 3RF Rx Instructions: As directed aspirin [Adult Aspirin Regimen] 81 mg tablet,delayed release (DR/EC) 81 mg PO QDAY Qty: 90 3RF insulin aspart U-100 [Novolog FlexPen U-100 Insulin] 100 unit/mL (3 mL) insulin pen 10 unit subcut TID Qty: 15 6RF (DME) pen needle, diabetic 32 gauge x 5/32 needle See Rx Instructions .ROUTE .MEDSUPPLY Qty: 50 4RF Rx Instructions: 4 times daily ondansetron 4 mg tablet,disintegrating 4 mg PO Q8H PRN PRN (Reason: Nausea) Qty: 10 0RF insulin degludec [Tresiba FlexTouch U-100] 100 unit/mL (3 mL) insulin pen 5 unit subcut DAILY ciprofloxacin HCl [Cipro] 500 mg tablet 500 mg PO BID Qty: 6 0RF Rx Instructions: okay to crush phenazopyridine [Pyridium] 100 mg tablet 100 mg PO TID PRN (Reason: pain) Qty: 14 0RF oxycodone 5 mg tablet 5 mg PO Q6H PRN (Reason: pain) 3 Days Qty: 7 0RF atorvastatin 10 mg tablet See Rx Instructions .ROUTE .COMPLEX Qty: 90 3RF Dose Instruction: TAKE 1 TABLET BY MOUTH EVERY DAY Rx Instructions: TAKE 1 TABLET BY MOUTH EVERY DAY metformin 500 mg tablet 500 mg PO BID Qty: 180 1RF glimepiride 4 mg tablet 4 mg PO BID 90 Days Qty: 180 3RF insulin glargine [Basaglar KwikPen U-100 Insulin] 100 unit/mL (3 mL) insulin pen 10 unit subcut QPM Qty: 15 5RF losartan 25 mg tablet 12.5 mg PO QDAY Qty: 90 3RF Primary Care Provider: Naren Thorne Referrals: Naren Thorne MD [Primary Care Provider, Internal Medicine] Kelton Skinner MD [Med Staff - Active Staff, Urology] - As soon as possible Print Language: [place] Disposition Disposition: Home, Self Care
[2025-02-10 17:24] VITALS: BP 110/94; PULSE 94; RESP 16; TEMP 36.4; O2SAT 98
== END 2025-02-10 17:25 | disposition home or self-care (01) ==
PROVIDERS: Emergency Provider Emergency Medicine; PCP Internal Medicine; Visit Provider Emergency Medicine
DX: R10.32 Left lower quadrant pain (principal); E11.9 Type 2 diabetes mellitus without complications; Z79.4 Long term (current) use of insulin; R31.0 Gross hematuria; R35.0 Frequency of micturition; N28.9 Disorder of kidney and ureter, unspecified; T83.193A Other mechanical complication of other urinary stent, initial encounter; I10 Essential (primary) hypertension; E78.5 Hyperlipidemia, unspecified; E55.9 Vitamin D deficiency, unspecified; K21.9 Gastro-esophageal reflux disease without esophagitis; H40.9 Unspecified glaucoma; M85.80 Other specified disorders of bone density and structure, unspecified site; Z79.84 Long term (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 oral hypoglycemic drugs; Z79.82 Long term (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 aspirin; Z79.899 Other long term (current) drug therapy; Z87.442 Personal history of urinary calculi
CPT/HCPCS: 80048; 81001; 85025; 96361; 96374; 99283; A4216; J2405